=== PATIENT | male | born 1975 | race Caucasian/White ===

== ENCOUNTER 2023-09-22 14:06 | Emergency (ER) | payer BC, SELFPAY ==
[2023-09-22 14:14] VITALS: BP 146/90; PULSE 85; RESP 20; TEMP 36.6; O2SAT 98; BMI 21.9
[2023-09-22] MEDS: LIDOCAINE HCL 1%-EPINEPHRINE 1:100,000 20 ML MDV INJ (14:29)
--- NOTE | 2023-09-22 14:29 | ED.WOUNDLAC1 ---
HPI - Wound/Laceration General Chief Complaint: Wound/Laceration Stated Complaint: MIDDLE LEFT FINGER LACERATION Time Seen by Provider: 09/22/23 14:29 Source: patient Mode of arrival: walk-in Limitations: no limitations History of Present Illness HPI narrative: patient's here with a laceration over the dorsal aspect of his left middle finger sustained at home just prior to arrival. He is getting the use of woodworking equipment and before turning in on he cut his finger at the PIP joint. He has no other injuries. He is able to move the finger. His last tetanus shot was definitely less than ten years ago. He has no other complaints. He denies any loss of feeling distally. Bleeding has been controlled. He is not on any anticoagulants. Related Data Home Medications Medication Instructions Recorded Confirmed buprenorphine 8 mg-naloxone 2 mg film sublingual 09/22/23 sublingual film dextroamphetamine-amphetamine ER 15 mg PO DAILY 09/22/23 09/22/23 15 mg 24hr capsule,extend release levothyroxine 125 mcg tablet 125 mcg PO DAILY 09/22/23 09/22/23 Allergies Allergy/AdvReac Type Severity Reaction Status Date / Time No Known Drug Allergies Allergy Verified 09/22/23 14:12 Exam Narrative Exam Narrative: awake alert pleasant vital signs are stable. He has a 2 cm laceration with an island of nonviable tissue between the wound edges directly running vertically over the dorsal surface of the PIP joint. There is no arterial bleeding. Constitutional Vital Signs, click to edit/add: Last Vital Signs Temp 97.9 F 09/22/23 14:14 Pulse 85 09/22/23 14:14 Resp 20 09/22/23 14:14 BP 146/90 H 09/22/23 14:14 Pulse Ox 98 09/22/23 14:14 Course Vital Signs Vital signs: Vital Signs Temperature 97.9 F 09/22/23 14:14 Pulse Rate 85 09/22/23 14:14 Respiratory Rate 20 09/22/23 14:14 Blood Pressure 146/90 H 09/22/23 14:14 Pulse Oximetry 98 09/22/23 14:14 Temperature 97.9 F 09/22/23 14:14 Pulse Rate 85 09/22/23 14:14 Respiratory Rate 20 09/22/23 14:14 Blood Pressure 146/90 H 09/22/23 14:14 Pulse Oximetry 98 09/22/23 14:14 MDM - Wound/Laceration MDM Narrative Medical decision making narrative: seizure note. After lidocaine one percent anesthesia with epinephrine and a Jacquie drain was obtained approximately two render a bloodless field. There was a small island of tissue in the center of the wound that was devitalized and was sharply incised away. This facilitated closure using five 5-0 nylon simple interrupted sutures. Wound approximation was excellent. There is no tendon or vascular injury. Wound sheet was discussed with him by myself. He has stitches out ten days and will keep a volar splint on to facilitate wound healing Discharge Plan Discharge Chief Complaint: Wound/Laceration Clinical Impression: Laceration Patient Disposition: Home, Self-Care Time of Disposition Decision: 14:49 Prescriptions / Home Meds: No Action buprenorphine-naloxone 8-2 mg film sublingual Rx Instructions: 1/2 film daily three times weekly levothyroxine 125 mcg tablet 125 mcg PO DAILY dextroamphetamine-amphetamine 15 mg capsule,extended release 24hr 15 mg PO DAILY Additional Instructions: keep clean and dry, wear splint, stitches out in ten days, apply topical bacitracin or Vaseline Stand Alone Forms: Portal Instructions Referrals: Shaikh Adam MD [Primary Care Provider] - 1 week
== END 2023-09-22 15:23 | disposition home or self-care (01) ==
PROVIDERS: Emergency Provider Emergency Medicine Emergency Medical Services; PCP Internal Medicine
DX: S61.213A Laceration without foreign body of left middle finger without damage to nail, initial encounter (principal); W27.0XXA Contact with workbench tool, initial encounter; Z79.899 Other long term (current) drug therapy; Z79.890 Hormone replacement therapy
CPT/HCPCS: 12001; 99282

== ENCOUNTER 2024-02-12 10:54 | Outpatient (OUT) | payer BC, SELFPAY ==
[2024-02-12 11:33] LABS: Basophils Absolute Auto 0.1 10^3/uL (0.0-0.1); Basophils Percent Auto 0.9 % (0.2-2.0); Eosinophils Absolute Auto 0.1 10^3/uL (0.0-0.7); Eosinophils Percent Auto 1.9 % (0.9-7.0); Hematocrit 41.2 % (42.0-54.0); Hemoglobin 13.6 g/dL (14.0-18.0); Immature Granulocytes Abs Auto 0.03 10^3/uL (0.00-0.03); Immature Granulocytes Pct Auto 0.5 % (0.0-0.5); Lymphocytes Absolute Auto 0.9 10^3/uL (1.2-3.8); Lymphocytes Percent Auto 14.5 % (20.5-60.0); Mean Corpuscular Hemoglobin 30.4 pg (25.9-34.0); Mean Platelet Volume 9.4 fL (9.5-13.5); Monocytes Absolute Auto 0.5 10^3/uL (0.3-0.8); Neutrophils Absolute Auto 4.8 10^3/uL (1.4-6.5); Neutrophils Percent Auto 74.2 % (43.0-75.0); Platelet Count 274 10^3/uL (150-450); Red Blood Count 4.48 10^6/uL (4.70-6.10); White Blood Count 6.4 10^3/uL (4.0-11.0)
[2024-02-12 12:36] LABS: Alanine Aminotransferase 33 U/L (16-63); Albumin Level 3.7 g/dL (3.4-5.0); Alkaline Phosphatase 92 U/L (46-116); Anion Gap 13.7; Aspartate Amino Transferase 23 U/L (15-37); BUN Creatinine Ratio 14.4; Bilirubin Total 0.3 mg/dL (0.2-1.0); Calcium 9.3 mg/dL (8.5-10.1); Chloride 102 mmol/L (98-107); Estimated GFR (African America >60 (>=60); Estimated GFR (Non-African Ame >60 (>=60); Globulin 3.8 g/dL; Glucose 98 mg/dL (74-106); Potassium 3.7 mmol/L (3.5-5.1); Sodium 141 mmol/L (136-145); TSH W/ REFLEX FT4 12.254 uIU/mL (0.358-3.740); Total Protein 7.5 g/dL (6.4-8.2)
[2024-02-12 14:26] LABS: Free T4 0.71 ng/dL (0.76-1.46)
== END 2024-02-12 10:55 | disposition home or self-care (01) ==
LOC: LAB 10:54
PROVIDERS: PCP Internal Medicine; Visit Provider Internal Medicine
DX: I07.1 Rheumatic tricuspid insufficiency (principal); E03.9 Hypothyroidism, unspecified; F90.1 Attention-deficit hyperactivity disorder, predominantly hyperactive type
CPT/HCPCS: 36415; 80053; 84439; 84443; 85025

== ENCOUNTER 2024-02-24 09:08 | Outpatient (OUT) | payer BC, SELFPAY ==
--- NOTE | 2024-02-24 09:10 | CT_ITS ---
[address] [address] Patient Name: ANDREW MAHONEY MRN: [facility]:[id number] date: 1975 Sex: M Assigned Patient Location: CT Current Patient Location: Accession/Order Number: [id number] Exam Date: 02/24/2024 10:15 Report Date: 02/26/2024 06:50 At the request of: SHAIKH ANGELICA Procedure: CT abdomen pelvis w con EXAMINATION: CT abdomen pelvis w con HISTORY: Inguinal hernia ; chronic left groin painful lump increasing in severity COMPARISON: CT abdomen pelvis 09/16/2021 TECHNIQUE: Axial, Coronal, and Sagittal images were obtained without and/or with IV contrast as indicated by examination type. Dose reduction techniques were achieved by using automated exposure control and/or adjustment of mA and/or kV according to patient size and/or use of iterative reconstruction technique. FINDINGS: LUNG BASES: No visible pulmonary or pleural disease. LIVER: Decreased density adjacent the falciform ligament suspected to represent fatty infiltration. BILIARY: No dilatation or calcification. PANCREAS: No lesion, fluid collection, or abnormal duct dilatation. SPLEEN: No enlargement or focal lesion. ADRENALS: No mass or enlargement. KIDNEYS: No mass, obstruction, or calcification. BOWEL/MESENTERY: Focal dilated segment of small bowel within anterior left abdomen; transient small bowel intussusception versus prior resection and anastomosis. Resection and anastomosis also suspected near the sigmoid-rectal junction. No visible mass, obstruction, or bowel wall thickening. Normal appendix. AORTA/VASCULAR: No aneurysm or dissection. RETROPERITONEUM: No mass or adenopathy. LYMPH NODES: No adenopathy. URINARY BLADDER: No visible focal wall thickening, lesion, or calculus. PELVIC ORGANS: No visible mass. Pelvic organs appropriate for patient age. ABDOMINAL WALL: Short segment of small bowel extending into left inguinal canal. Prior right inguinal hernia repair. BONES: No bony lesion or fracture. OTHER: Negative. CT/CT abdomen pelvis w con IMPRESSION: 1. Small left inguinal hernia containing a short segment of small bowel; no obstruction or inflammatory changes. Electronically authenticated by: KELLY ERWIN Date: 02/26/2024 06:50
--- OUTSIDE RECORDS SUMMARY | 2024-02-24 09:11 | XMS_ITS | CCD ---
Author Organization [facility] Care Team Providers Care Vamp Stitcher Name Role Phone Unavailable Primary Care Provider Unavailmeg e Marino RN, Meghan Shelton Unavailable [phone] Oscar Gonzalez MD Unavailable Temi Dean PA-C Unavailable [phone] Marino STATON, Meghan Shelton Unavailable Oscar Gonzalez MD Unavailable Temi Dean PA-C Unavailable Meghan Pichardo RN Unavailable [phone] Oscar Gonzalez MD Unavailable Shaikh Adam MD Primary Care Provider [phone] REQUEST, NONE LISTED Primary Care Unavaila ble PAY, DR CARROLL Admitting Unavailable PAY, DR CARROLL Attending Unavailable PAY, DR CARROLL Consulting Unavailable Kelly Hernandez Consulting Unavailable FAWWAD, BUCHANAN H Admitting Unavailable FAWWAJoby, BUCHANAN H Attending Unavailable FAWWAD, BUCHANAN H Primary Care Unavailable FAWWAD, BUCHANAN H Consulting Unavailable FAWWAD, BUCHANAN H Admitting Unavailable FAWWAD, BCUHANAN H Attending Unavailable KINGWWAJoby, BUCHANAN H Primary Care Unavailable REQUEST, NONE LISTED Primary Care Unavaila ble TRE GARCIA Admitting Unavailable TRE GARCIA Attending Unavailable TRE GARCIA Consulting Unavailable KANU CARNEY Consulting Unavailable Marino STATON, Meghan Shelton Unavailable Oscar Gonzalez MD Unavailable Temi Dean PA-C Unavailable [phone] Kia HEARD [facility] Provider BAN, ANA Referring Unavailable [facility] Care Unavailable BAN, ANA Referring Unavailable CAMELIA THOMASON Attending Unavailable [facility] Unavailable PROVIDER, UNKNOWN Referring Unavailable [facility] Care Unavailable TEMI DEAN Referring [facility]available [facility]I DEAN Referring [facility]available [facility] Care Unavailable BAN, ANA Admitting Unavailable BANLUCIEEN Attending Unavailable [facility] Care Unavailable [facility] Care Unavailable BAN, ANA Admitting Unavailable BAN ANA Attending Unavailable KARAMLOU, OSCAR Referring Unavailable ANOOP, TYLOR Referring Unavailable ANOOPSAJU Attending Unavailable [facility] Unavailable TEMI DEAN Referring Unavailable [facility] Care Unavailable KAYLIN ARAGON Attending Unavailable [facility] Unavailable BAN ANA Attending Unavailable [facility] Care Unavailable KARAMLOU, OSCAR Referring Unavailable [facility] Unavailable TEMI DEAN Attending Unavailable KARAMLOU, OSCAR Referring Unavailable [facility] Care Unavailable KARAMLOU, OSCAR Referring Unavailable [facility] Care Unavailable BAN ANA Attending Unavailable BAN, ANA Referring Unavailable KARAMLOU, OSCAR Referring Unavailable KARAMLOU, OSCAR Referring Unavailable KARAMLOU, OSCAR Attending Unavailable KARAMLOU, OSCAR Referring Unavailable [facility] Care Unavailable BAN, ANA Referring Unavailable KARAMLOU, OSCAR Referring [facility]available [facility] Unavailable BAN, ANA Referring Unavailable [facility] Referring Unavailable [facility] Primary Care Unavailable TEMI DEAN Attending Unavailable KARAMLOU, OSCAR Referring Unavailable [facility] Care Unavailable KARAMLOU, OSCAR Attending Unavailable KARAMLOU, OSCAR Referring Unavailable [facility] Primary Care Unavailable ANA ENRIQUEZ Referring Unavailable [facility] Primary Care Unavailable ANA ENRIQUEZ Referring Unavailable [facility] Primary Care Unavailable TEMI DEAN Referring Unavailable OSCAR GONZALEZ Referring Unavailable Marino STATON, Meghan Shelton Unavailable [phone] SHAIKH ADAM Attending Unavailable Medications Current Medications Medication Drug Class(es) Dates Sig (Normalized) Sig (Original) 0.4 ml enoxaparin sodium 100 mg/ml prefilled syringe (16 sources) Low Molecular Weight Heparin Start: 11-07-2022 End: 12-03-2022 inject 0.4 mL by subcutaneous injection once daily enoxaparin (LOVENOX) 40 mg/0.4 mL Inject 0.4 mL subcutaneously once daily for 21 days. 8.4 mL 0 11/07/2022 12/03/2022 Active Start: 02-25-2022 End: 03-18-2022 inject 40 mg by subcutaneous injection every twenty-four hours enoxaparin (LOVENOX) 40 mg/0.4 mL Inject 0.4 mL subcutaneously q 24 HR for 21 days. 8.4 mL 0 02/25/2022 03/18/2022 Discontinued Comment on above: Inject 0.4 mL subcut aneously q 24 HR for 21 days. Inject 0.4 mL subcut aneously once daily for 21 days. oxyCODONE hydrochloride 5 mg oral tablet (3 sources) Opioid Agonist Start: 02-23-20 End: 03-01-20 take 1 tablet by mouth every six hours as needed oxyCODONE IR (ROXICODONE) 5 mg immediate release tablet Indications: Post-op pain Take 1 tablet by mouth every 6 hours as needed for up to 7 days. 20 tablet 0 02/22/2023 03/01/2023 Active Comment on above: Take 1 tablet by kevin every 6 hours as needed for up to 7 days. pantoprazole 40 mg delayed release oral tablet (1 source) Proton Pump Inhibitor Start: 02-26-20 End: 02-25-20 take 1 tablet by mouth once daily, then take 6 tablets by mouth in the morning pantoprazole DR (PROTONIX) 40 mg tablet Take 1 tablet by mouth DAILY (6 AM). 30 tablet 0 02/25/2022 02/24/2022 Discontinued Start: 02-25-2022 End: 02-24-2022 take 1 tablet by mouth once daily, then take 6 tablets by mouth in the morning pantoprazole DR (PROTONIX) 40 mg tablet Take 1 tablet by mouth DAILY (6 AM). 30 tablet 0 02/25/2022 02/24/2022 Discontinued Comment on above: Take [address] [facility] DAILY (6 AM). Completed/Discontinued Medications Medication Drug Class(es) Dates Sig (Normalized) Sig (Original) acetaminophen 500 mg oral tablet (20 sources) Start: 02-24-2022 take 2 tablets by mouth every six hours acetaminophen (TYLENOL) 500 mg tablet Take 2 tablets by mouth every 6 hours. 0 02/24/2022 Active Comment on above: Take 2 tablets by mo [facility] every 6 hours. atorvastatin 10 mg oral tablet (20 sources) HMG-CoA Reductase Inhibitor Start: 02-08-2022 take 1 tablet by mouth once daily atorvastatin (LIPITOR) 10 mg tablet Take 10 mg by mouth once daily. 0 02/08/2022 Active Comment on above: Take 10 mg by mouth once daily. bacillus coagulans [id number] unt / inulin 250 mg oral capsule (20 sources) Start: 02-24-2022 End: 08-16-2022 take 1 capsule by mouth once daily PROBIOTIC FORMULA, INULIN, 1 billion-250 cell-mg cap Take 1 capsule by mouth once daily. 0 02/24/2022 08/16/2022 Discontinued (Discontinued by Patient) Comment on above: Take 1 capsule by mo [facility] once daily. buprenorphine 8 mg / naloxone 2 mg sublingual film (14 sources) Partial Opioid Agonist, Opioid Antagonist Start: 01-16-2023 buprenorphine-nalox one (SUBOXONE) 8-2 mg film DISSOLVE 2 (TWO) films UNDER THE TONGUE DAILY 0 01/16/2023 Active Start: 11-23-2021 End: 02-04-2022 buprenorphine-naloxone (SUBO XONE) 8-[address] 2 (TWO) films UNDER THE TONGUE DAILY 0 11/23/2021 02/04/2022 Discontinued Comment on above: place 2 (TWO) films UNDER THE TONGUE DAILY DISSOLVE 2 (TWO) bubba ms UNDER THE TONGUE DAILY 24 hr buPROPion hydrochloride 300 mg extended release oral tablet (20 sources) Aminoketone Start: End: 3 take 1 tablet by mouth once daily buPROPion XL (WELLBUTRIN XL) 300 mg 24 hr tablet Take 1 tablet by mouth once daily. Take wellbutrin 150 mg tablet daily for 5 days before starting 300 mg dose daily 30 tablet 2 09/05/2022 02/16/2023 Discontinued Start: 04-22-2022 End: 08-16-2022 take 1 tablet by mouth once daily buPROPion XL (WELLBUTRIN XL) 150 mg 24 hr tablet Take 1 tablet by mouth once daily for 5 days. 5 tablet 0 04/22/2022 08/16/2022 Discontinued (Course of therapy completed) Comment on above: Take 1 tablet by kevin th once daily for 5 days. Take 1 tablet by kevin th once daily. Take wellbutrin 150 mg tablet daily for 5 days before starting 300 mg dose daily TAKE 1 TABLET BY KEVIN TH DAILY (TAKE 150mg DAILY FOR 5 DAYS then INCREASE to 300 mg DAILY) capecitabine 500 mg oral tablet (20 sources) Nucleoside Metabolic Inhibitor Start: 08-28-2022 End: 11-12-2022 capecitabine (XELODA) 500 mg tablet Take 3 tablets (1,500 mg) by mouth twice daily for 14 days. Followed by 7 days off start with the Oxaliplatin 84 tablet 4 08/28/2022 11/12/2022 Discontinued Start: 08-26-2022 End: 08-26-2022 capecitabine (XELODA) 150 mg tablet Indications: Rectal cancer (HCC) Take 5 tablets (750 mg) by mouth twice daily for 14 days with 1 other capecitabine prescription for 1,750 mg total. Oral chemotherapy agent; wear double gloves when handling. 140 tablet 0 08/26/2022 08/26/2022 Discontinued Start: 08-26-2022 End: 08-26-2022 capecitabine (XELODA) 500 mg tablet Indications: Rectal cancer (HCC) Take 2 tablets (1,000 mg) by mouth twice daily for 14 days with 1 other capecitabine prescription for 1,750 mg total. Oral chemotherapy agent; wear double gloves when handling. 56 tablet 0 08/26/2022 08/26/2022 Discontinued Start: 07-15-2022 End: 07-15-2022 capecitabine (XELODA) 150 mg tablet Indications: Rectal cancer (HCC) Take 5 tablets (750 mg) by mouth twice daily for 14 days with 1 other capecitabine prescription for 1,750 mg total. Oral chemotherapy agent; wear double gloves when handling. 140 tablet 0 07/15/2022 07/15/2022 Discontinued Start: 07-15-2022 End: 07-15-2022 capecitabine (XELODA) 500 mg tablet Indications: Rectal cancer (HCC) Take 2 tablets (1,000 mg) by mouth twice daily for 14 days with 1 other capecitabine prescription for 1,750 mg total. Oral chemotherapy agent; wear double gloves when handling. 56 tablet 0 07/15/2022 07/15/2022 Discontinued Start: 05-24-2022 End: 08-26-2022 capecitabine (XELODA) 500 mg tablet Take 3 tablets (1,500 mg) by mouth twice daily for 14 days. Followed by 7 days off start with the Oxaliplatin 84 tablet 4 08/26/2022 08/26/2022 Discontinued Start: 02-22-2022 End: 05-24-2022 take 2 tablets by mouth twice daily capecitabine (XELODA) 500 mg tablet Take 2 tablets (1,000 mg) by mouth twice daily. Take along with 300 mg for a total dose of 1300 mg PO BID M-F during radiation 120 tablet 0 02/24/2022 05/24/2022 Discontinued Start: 02-17-2022 End: 05-24-2022 take 2 tablets by mouth twice daily capecitabine (XELODA) 150 mg tablet Take 2 tablets (300 mg) by mouth twice daily. Take along with 1000 mg for a total dose of 1300 mg PO BID M-F During Radiation only 120 tablet 0 02/24/2022 05/24/2022 Discontinued Start: 02-17-2022 End: 02-18-2022 take 2 tablets by mouth twice daily capecitabine (XELODA) 500 mg tablet Take 2 tablets (1,000 mg) by mouth twice daily. Take along with 300 mg for a total dose of 1300 mg PO BID M-F during radiation 120 tablet 0 02/17/2022 02/18/2022 Discontinued Comment on above: Take 2 tablets (300 mg) by mouth twice daily. Take along with 1000 mg for a total dose of 1300 mg PO BID M-F During Radiation only Take 2 tablets (1,00 0 mg) by mouth twice daily. Take along with 300 mg for a total dose of 1300 mg PO BID M-F during radiation Take 3 tablets (1,50 0 mg) by mouth twice daily for 14 days. and 7 days off. (21 day cycle) Start day you receive oxaliplatin every cycle Oxaliplatin Take 3 tablets (1,50 0 mg) by mouth twice daily for 14 days. 1500 mg PO BID for 14 days and 7 dauys off start with the Oxaliplatin Take 3 tablets (1,50 0 mg) by mouth twice daily for 14 days. Followed by 7 days off start with the Oxaliplatin Take 5 tablets (750 mg) by mouth twice daily for 14 days with 1 other capecitabine prescription for 1,750 mg total. Oral chemotherapy agent; wear double gloves when handling. Take 2 tablets (1,00 0 mg) by mouth twice daily for 14 days with 1 other capecitabine prescription for 1,750 mg total. Oral chemotherapy agent; wear double gloves when handling. ciprofloxacin 500 mg oral tablet (5 sources) Quinolone Antimicrobial Start: 021 End: take 1 tablet by mouth every twelve hours ciprofloxacin HCl (CIPRO) 500 mg tablet Take 500 mg by mouth q 12 HR. 0 09/16/2021 02/04/2022 Discontinued Comment on above: Take 500 mg by mouth q 12 HR. cyclobenzaprine hydrochloride 5 mg oral tablet (5 sources) Muscle Relaxant Start: 023 take 1 tablet by mouth three times daily cyclobenzaprine (FLEXERIL) 5 mg tablet Take 1 tablet by mouth three times daily. 20 tablet 0 02/22/2023 Active Comment on above: Take 1 tablet by kevin three times daily. enteric contrast (will be provided with radiology test) (20 sources) Start: enteric contrast (will be provided with radiology test) Indications: Malignant neoplasm of rectum (HCC) For CT ABD/PEL W IVCON Routine order Administer, As Directed One Time Only, via Oral, Rectal, both Oral and Rectal, Enteric Tube, Stoma or Indwelling Catheter, Enteric Contrast as designated per enteric contrast guidelines 1 Each 0 10/04/2022 Active Start: 08-26-2022 End: 08-27-2022 enteric contrast (will be pr ovided with radiology test) MRI RECTUM WO/W. Administer, As Directed One Time Only, via Oral, Rectal, both Oral and Rectal, Enteric Tube, Stoma or Indwelling Catheter, Enteric Contrast as designated per enteric contrast guidelines 1 Each 0 08/26/2022 08/27/2022 Active Start: 04-12-2022 End: 04-13-2022 enteric contrast (will be pr ovided with radiology test) MRI RECTUM WO/W. Administer, As Directed One Time Only, via Oral, Rectal, both Oral and Rectal, Enteric Tube, Stoma or Indwelling Catheter, Enteric Contrast as designated per enteric contrast guidelines 1 Each 0 04/12/2022 04/13/2022 Start: 01-18-2022 End: 02-04-2022 enteric contrast (will be pr ovided with radiology test) MRI RECTUM WO/W. Administer, As Directed One Time Only, via Oral, Rectal, both Oral and Rectal, Enteric Tube, Stoma or Indwelling Catheter, Enteric Contrast as designated per enteric contrast guidelines 1 Each 0 01/18/2022 02/04/2022 Discontinued Start: 01-18-[address] (will be provided with radiology test) MRI RECTUM WO/W. Administer, As Directed One Time Only, via Oral, Rectal, both Oral and Rectal, Enteric Tube, Stoma or Indwelling Catheter, Enteric Contrast as designated per enteric contrast guidelines 1 Each 0 01/18/2022 Active Start: 12-29-2021 End: 02-04-2022 enteric contrast (will be pr ovided with radiology test) For CT CHESTABD/PEL W IVCON Routine order Administer, As Directed One Time Only, via Oral, Rectal, both Oral and Rectal, Enteric Tube, Stoma or Indwelling Catheter, Enteric Contrast as designated per enteric contrast guidelines 1 Each 0 12/29/2021 02/04/2022 Discontinued Start: 12-29-[address] (will be provided with radiology test) For CT CHESTABD/PEL W IVCON Routine order Administer, As Directed One Time Only, via Oral, Rectal, both Oral and Rectal, Enteric Tube, Stoma or Indwelling Catheter, Enteric Contrast as designated per enteric contrast guidelines 1 Each 0 12/29/2021 Active Comment on above: For CT CHESTABD/PEL W IVCON Routine order Administer, As Directed One Time Only, via Oral, Rectal, both Oral and Rectal, Enteric Tube, Stoma or Indwelling Catheter, Enteric Contrast as designated per enteric contrast guidelines MRI RECTUM WO/W. Adm inister, As Directed One Time Only, via Oral, Rectal, both Oral and Rectal, Enteric Tube, Stoma or Indwelling Catheter, Enteric Contrast as designated per enteric contrast guidelines For CT ABD/PEL W IVC ON Routine order Administer, As Directed One Time Only, via Oral, Rectal, both Oral and Rectal, Enteric Tube, Stoma or Indwelling Catheter, Enteric Contrast as designated per enteric contrast guidelines Food Supplement, Lactose-Free (PROMOTE, OSMOLITE, TWO CADEN, ENSURE PLUS, ENLIVE) liqd (18 sources) Start: 2 End: 3 take 237 mL by mouth three times daily at mealtime Food Supplement, Lactose-Free (PROMOTE, OSMOLITE, TWO CADEN, ENSURE PLUS, ENLIVE) liqd Take 237 mL by mouth three times daily with meals. [id number] mL 0 08/05/2022 11/12/2022 Discontinued Start: 08-05-2022 take 237 mL by mouth three times daily at mealtime Food Supplement, Lactose-Free (PROMOTE, OSMOLITE, TWO CADEN, ENSURE PLUS, ENLIVE) liqd Take 237 mL by mouth three times daily with meals. [id number] mL 0 08/05/2022 Active Start: 08-05-2022 End: 09-04-2022 take 237 mL by mouth three times daily at mealtime Food Supplement, Lactose-Free (PROMOTE, OSMOLITE, TWO CADEN, ENSURE PLUS, ENLIVE) liqd Take 237 mL by mouth three times daily with meals. [id number] mL 0 08/05/2022 09/04/2022 Active Comment on above: Take 237 mL by mouth three times daily with meals. gabapentin 300 mg oral capsule (20 sources) Anti-epileptic Agent Start: 2 End: 2 take 1 capsule by mouth every eight hours gabapentin (NEURONTIN) 300 mg capsule Take 1 capsule by mouth every 8 hours for 14 days. 42 capsule 0 02/24/2022 08/16/2022 Discontinued (Discontinued by Patient) Comment on above: Take [address] [facility] every 8 hours for 14 days. ibuprofen 400 mg oral tablet (20 sources) Nonsteroidal Anti-inflammatory Drug Start: 3 take 1 tablet by mouth every eight hours ibuprofen (MOTRIN) 400 mg tablet Take 1 tablet by mouth every 8 hours. 20 tablet 0 02/23/2023 Active Start: 11-12-2022 End: 12-12-2022 take 2 tablets by mouth every eight hours as needed ibuprofen (MOTRIN) 200 mg tablet Take 2 tablets by mouth every 8 hours as needed for pain. 90 tablet 1 11/12/2022 12/12/2022 Active take 1 tablet by kevin th every six hours as needed ibuprofen (MOTRIN) 200 mg tablet Take 200 mg by mouth every 6 hours as needed for pain. 0 Active End: 08-16-2022 Ibuprofen 200 mg cap Take by mouth every 6 hours as needed. 0 08/16/2022 Discontinued (Discontinued by Patient) Comment on above: Take by mouth every 6 hours as needed. Take 2 tablets by mo uth every 8 hours as needed for pain. Take 200 mg by mouth every 6 hours as needed for pain. Take 1 tablet by kevin th every 8 hours. iv contrast (will be provided with radiology test) (20 sources) Start: 10-04-2022 iv contrast (will be provided with radiology test) Indications: Malignant neoplasm of rectum (HCC) CT ABD/PEL -Inject, intravenously, once for 1 dose.No IV access, insert saline lock prior to the beginning of sedation, infusion, injection of imaging exam. Discontinue saline lock post exam. If Pt. has a central line or IVAD, may access for administration according to line specific nursing protocol. Once exam is complete flush line and de-access according to line specific nursing protocol in the CT contrast administration guidelines link. 1 Each 0 10/04/2022 Active Start: 08-26-2022 End: 08-27-2022 iv contrast (will be provide d with radiology test) MRI Rectum Inject, intravenously, once for 1 dose. No IV access, insert saline lock prior to the beginning of sedation, infusion, injection of imaging exam. Discontinue saline lock post exam. If Pt has a central line or IVAD, may access for administration according to line specific nursing protocol. Once exam is complete flush line and de-access according to line specific nursing protocol in the MR contrast administration guidelines link. 1 Each 0 08/26/2022 08/27/2022 Active Start: 08-26-2022 End: 08-27-2022 iv contrast (will be provide d with radiology test) CT Chest W -Inject, intravenously, once for 1 dose.No IV access, insert saline lock prior to the beginning of sedation, infusion, injection of imaging exam. Discontinue saline lock post exam. If Pt. has a central line or IVAD, may access for administration according to line specific nursing protocol. Once exam is complete flush line and de-access according to line specific nursing protocol in the CT contrast administration guidelines link. 1 Each 0 08/26/2022 08/27/2022 Active Start: 04-12-2022 End: 04-13-2022 iv contrast (will be provide d with radiology test) MRI Rectum Inject, intravenously, once for 1 dose. No IV access, insert saline lock prior to the beginning of sedation, infusion, injection of imaging exam. Discontinue saline lock post exam. If Pt has a central line or IVAD, may access for administration according to line specific nursing protocol. Once exam is complete flush line and de-access according to line specific nursing protocol in the MR contrast administration guidelines link. 1 Each 0 04/12/2022 04/13/2022 Start: 01-18-2022 End: 02-04-2022 iv contrast (will be provide d with radiology test) MRI Rectum Inject, intravenously, once for 1 dose. No IV access, insert saline lock prior to the beginning of sedation, infusion, injection of imaging exam. Discontinue saline lock post exam. If Pt has a central line or IVAD, may access for administration according to line specific nursing protocol. Once exam is complete flush line and de-access according to line specific nursing protocol in the MR contrast administration guidelines link. 1 Each 0 01/18/2022 02/04/2022 Discontinued (Discontinued by Patient) Start: 01-18-2022 iv contrast (w ill be provided with radiology test) MRI Rectum Inject, intravenously, once for 1 dose. No IV access, insert saline lock prior to the beginning of sedation, infusion, injection of imaging exam. Discontinue saline lock post exam. If Pt has a central line or IVAD, may access for administration according to line specific nursing protocol. Once exam is complete flush line and de-access according to line specific nursing protocol in the MR contrast administration guidelines link. 1 Each 0 01/18/2022 Active Start: 12-29-2021 End: 02-04-2022 iv contrast (will be provide d with radiology test) CT Chest ABD/PEL-Inject, intravenously, once for 1 dose.No IV access, insert saline lock prior to the beginning of sedation, infusion, injection of imaging exam. Discontinue saline lock post exam. If Pt. has a central line or IVAD, may access for administration according to line specific nursing protocol. Once exam is complete flush line and de-access according to line specific nursing protocol in the CT contrast administration guidelines link. 1 Each 0 12/29/2021 02/04/2022 Discontinued Start: 12-29-2021 iv contrast (w ill be provided with radiology test) CT Chest ABD/PEL-Inject, intravenously, once for 1 dose.No IV access, insert saline lock prior to the beginning of sedation, infusion, injection of imaging exam. Discontinue saline lock post exam. If Pt. has a central line or IVAD, may access for administration according to line specific nursing protocol. Once exam is complete flush line and de-access according to line specific nursing protocol in the CT contrast administration guidelines link. 1 Each 0 12/29/2021 Active Comment on above: CT Chest ABD/PEL-Inj ect, intravenously, once for 1 dose.No IV access, insert saline lock prior to the beginning of sedation, infusion, injection of imaging exam. Discontinue saline lock post exam. If Pt. has a central line or IVAD, may access for administration according to line specific nursing protocol. Once exam is complete flush line and de-access according to line specific nursing protocol in the CT contrast administration guidelines link. MRI Rectum Inject, i ntravenously, once for 1 dose. No IV access, insert saline lock prior to the beginning of sedation, infusion, injection of imaging exam. Discontinue saline lock post exam. If Pt has a central line or IVAD, may access for administration according to line specific nursing protocol. Once exam is complete flush line and de-access according to line specific nursing protocol in the MR contrast administration guidelines link. CT Chest W -Inject, intravenously, once for 1 dose.No IV access, insert saline lock prior to the beginning of sedation, infusion, injection of imaging exam. Discontinue saline lock post exam. If Pt. has a central line or IVAD, may access for administration according to line specific nursing protocol. Once exam is complete flush line and de-access according to line specific nursing protocol in the CT contrast administration guidelines link. CT ABD/PEL -Inject, intravenously, once for 1 dose.No IV access, insert saline lock prior to the beginning of sedation, infusion, injection of imaging exam. Discontinue saline lock post exam. If Pt. has a central line or IVAD, may access for administration according to line specific nursing protocol. Once exam is complete flush line and de-access according to line specific nursing protocol in the CT contrast administration guidelines link. lactobacillus rhamnosus gg [id number] unt oral capsule (20 sources) Start: End: take 1 capsule by mouth once daily lactobacillus rhamnosus (CULTURELLE) 10 billion cell capsule Take 1 capsule by mouth once daily. 30 capsule 0 02/22/2023 Active Comment on above: Take [address] [facility] once daily. levothyroxine sodium 0.125 mg oral tablet (20 sources) l-Thyroxine Start: take 1 tablet by mouth once daily levothyroxine (SYNTHROID) 125 mcg tablet Take 125 mcg by mouth once daily. 0 11/01/2021 Active Comment on above: Take 125 mcg by [facility] once daily. loperamide hydrochloride 2 mg oral capsule (10 sources) Opioid Agonist Start: take 1 capsule by mouth twice daily before mealtime loperamide (IMODIUM) 2 mg cap(s) Indications: High output ileostomy (HCC) Take 1 capsule by mouth twice daily before meals (0600/1600). 60 capsule 2 12/06/2022 Active Comment on above: Take [address] [facility] twice daily before meals (0600/1600). loratadine 10 mg oral tablet (20 sources) Start: take 1 tablet by mouth once daily loratadine (CLARITIN) 10 mg tablet Take 10 mg by mouth once daily. 0 02/08/2022 Active Comment on above: Take 10 mg by mouth once daily. metroNIDAZOLE 500 mg oral tablet (17 sources) Nitroimidazole Antimicrobial Start: End: take 1 tablet by mouth three times daily metroNIDAZOLE (FLAGYL) 500 mg tablet Take 1 tablet by mouth three times daily. Take 1 tablet at 6pm, 7pm, and 11pm, the evening prior to surgery. 3 tablet 0 01/18/2022 02/17/2022 Discontinued Comment on above: TAKE 1 TABLET BY KEVIN TH THREE TIMES DAILY (no alcohol,no intercourse FOR 7 DAYS) Take 1 tablet by kevin th three times daily. Take 1 tablet at 6pm, 7pm, and 11pm, the evening prior to surgery. naproxen sodium 220 mg oral capsule (4 sources) Nonsteroidal Anti-inflammatory Drug naproxen sodium (ALEVE) 220 mg cap Take by mouth as needed. 0 Active Comment on above: Take by mouth as nee ded. neomycin sulfate 500 mg oral tablet (15 sources) Aminoglycoside Antibacterial Start: End: neomycin 500 mg tablet Take 2 tablets by mouth as directed. Take 2 tablet at 6pm, 7pm, and 11pm the evening prior to surgery. 6 tablet 0 01/18/2022 02/24/2022 Discontinued Comment on above: Take 2 tablets by mo [facility] as directed. Take 2 tablet at 6pm, 7pm, and 11pm the evening prior to surgery. 24 hr nicotine 0.875 mg/hr transdermal system (20 sources) Cholinergic Nicotinic Agonist Start: apply 1 dose transdermal route every twenty-four hours nicotine (NICODERM) 21 mg/24 hr Apply 1 Patch as directed every 24 hours. 30 Patch 1 07/15/2022 Active Start: 02-25-2022 End: 07-24-2022 apply 1 dose transdermal route once daily nicotine (NICODERM) 21 mg/24 hr Apply 1 Patch as directed once daily. 30 Patch 0 06/24/2022 07/15/2022 Discontinued (Course of therapy completed) Comment on above: Apply 1 Patch as dir ected once daily. Apply 1 Patch as dir ected every 24 hours. ondansetron 8 mg oral tablet (20 sources) Serotonin-3 Receptor Antagonist Start: take 1 tablet by mouth every eight hours as needed ondansetron (ZOFRAN) 8 mg tablet Take 1 tablet by mouth every 8 hours as needed for nausea/vomiting. 90 tablet 2 03/01/2022 Active Comment on above: Take 1 tablet by kevin every 8 hours as needed for nausea/vomiting. perflutren lipid microspheres 1.3 mL in NaCl (PF) 0.9% 10 mL injection (DEFINITY) (20 sources) Start: End: perflutren lipid microspheres 1.3 mL in NaCl (PF) 0.9% 10 mL injection (DEFINITY) prochlorperazine 10 mg oral tablet (20 sources) Phenothiazine Start: End: take 1 tablet by mouth every six hours as needed prochlorperazine (COMPAZINE) 10 mg tablet Take 1 tablet by mouth every 6 hours as needed. 100 tablet 2 07/15/2022 Active Comment on above: Take 1 tablet by kevin th every 6 hours as needed. QUEtiapine 50 mg oral tablet (5 sources) Atypical Antipsychotic Start: End: take 1 tablet by mouth once daily at bedtime QUEtiapine (SEROQUEL) 50 mg tablet Take 50 mg by mouth daily at bedtime. 0 11/01/2021 02/04/2022 Discontinued Comment on above: Take 50 mg by mouth daily at bedtime. 125 ml sodium chloride 9 mg/ml prefilled syringe (20 sources) Start: End: sodium chloride 0.9 % (flush) 10 mL (BD POSIFLUSH) traMADol hydrochloride 50 mg oral tablet (20 sources) Opioid Agonist Start: End: take 1 tablet by mouth every eight hours as needed for pain traMADol (ULTRAM) 50 mg tablet Indications: Acute post-operative pain Take 1 tablet by mouth every 8 hours as needed for pain for up to 7 days. 20 tablet 0 12/06/2022 12/13/2022 Active Start: 11-12-2022 End: 02-09-2023 take 1 tablet by mouth every six hours as needed for pain traMADol (ULTRAM) 50 mg tablet Indications: Encounter for follow-up surveillance of rectal cancer , Acute post-operative pain Take 1 tablet by mouth every 6 hours as needed for pain. 20 tablet 0 01/17/2023 02/09/2023 Discontinued (Course of therapy completed) Start: 02-24-2022 End: 08-16-2022 take 1 tablet by mouth every six hours as needed traMADol (ULTRAM) 50 mg tablet Indications: Post-op pain Take 1 tablet by mouth every 6 hours as needed. 25 tablet 0 02/24/2022 08/16/2022 Discontinued (Discontinued by Patient) Comment on above: Take 1 tablet by kevin th every 6 hours as needed. Take 1 tablet by kevin th every 6 hours as needed for pain for up to 20 doses. Take 1 tablet by kevin th every 8 hours as needed for pain for up to 7 days. Take 1 tablet by kevin th every 6 hours as needed for pain. 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] Onset: 01-17-2022 01-17-2022 Chronic Disorders of lipid metabolism (1 source) Hyperlipidemia, unspecified; Translations: [HYPERLIPIDEMIA UNSPECIFIED] Onset: 12-02-2021 Chronic Diverticulosis and diverticulitis (1 source) Diverticulitis of large intestine with perforation and abscess without bleeding; Translations: [DVTRCLI LG INT W/PERF ABSC NO BLEED] Onset: 08-31-2021 Chronic Heart valve disorders (20 sources) Rheumatic tricuspid insufficiency; Translations: [Diseases of tricuspid valve] Onset: 01-17-2022 01-17-2022 Chronic Nutritional deficiencies (20 sources) Deficiency of macronutrients; Translations: [Unspecified severe protein-calorie malnutrition] Onset: 02-22-2022 02-22-2022 Chronic Other aftercare (3 sources) Surgical follow-up; Translations: [Encounter for follow-up examination after completed treatment for conditions other than malignant neoplasm] Episodic Other aftercare (3 sources) History of malignant neoplasm of rectum; Translations: [Encounter for follow-up examination after completed treatment for malignant neoplasm] Episodic Other aftercare (1 source) Encounter for follow-up examination after completed treatment for conditions other than malignant neoplasm; Translations: [Follow-up examination after colorectal surgery] Onset: 10-13-2022 Episodic Other gastrointestinal disorders (2 sources) Colostomy present; Translations: [Colostomy status] Chronic Other gastrointestinal disorders (6 sources) Ileostomy present; Translations: [Encounter for attention to ileostomy] Onset: 02-20-2023 Chronic Other gastrointestinal disorders (1 source) High output ileostomy; Translations: [Other specified symptoms and signs involving the digestive system and abdomen] Episodic Other lower respiratory disease (2 sources) Multiple nodules of lung; Translations: [Other nonspecific abnormal finding of lung field] Episodic Other nervous system disorders (1 source) Postoperative pain ; Translations: [Other acute postprocedural pain] Episodic Other nervous system disorders (3 sources) Acute postoperative pain; Translations: [Other acute postprocedural pain] Episodic Substance-related disorders (20 sources) History of intravenous drug abuse; Translations: [Other psychoactive substance abuse, in remission] Onset: 08-31-2021 Chronic Thyroid disorders (20 sources) Hypothyroidism, unspecified; Translations: [Hypothyroidism] Onset: 11-29-2021 Chronic Past or Other Problems Problem Classification Problem Date Documented Da te Episodic/Chronic Anal and rectal conditions (20 sources) Rectal mass; Translations: [Other specified diseases of anus and rectum] Onset: 02-16-2022 Episodic Cancer of rectum and anus (2 sources) Personal history of other malignant neoplasm of rectum, rectosigmoid junction, and anus; Translations: [Encounter for follow-up surveillance of rectal cancer] Onset: 01-17-2023 Episodic Immunizations and screening for infectious disease (20 sources) Blood group antibody titer - finding; Translations: [Other specified abnormal immunological findings in serum] Onset: 02-09-2022 02-09-2022 Episodic Malaise and fatigue (20 sources) Malaise and fatigue; Translations: [Other malaise] Onset: 07-15-2022 07-15-2022 Episodic Noninfectious gastroenteritis (2 sources) Noninfective gastroenteritis and colitis, unspecified; Translations: [NONINFECTIVE GE AND COLITIS UNS] Onset: 09-20-2021 Episodic Other aftercare (1 source) Other group home (current) drug therapy; Translations: [OTH PENITENTIARY CURRENT DRUG THERAPY] Onset: 08-31-2021 Episodic Other aftercare (2 sources) Encounter for follow-up examination after completed treatment for malignant neoplasm; Translations: [Encounter for follow-up surveillance of rectal cancer] Onset: 01-17-2023 Episodic Other circulatory disease (20 sources) History of endocarditis; Translations: [Personal history of other diseases of the circulatory system] Onset: 01-17-2022 01-17-2022 Episodic Other circulatory disease (1 source) Personal history of other diseases of the circulatory system; Translations: [History of endocarditis] Onset: 01-17-2022 Episodic Other gastrointestinal disorders (3 sources) Diarrhea, unspecified; Translations: [DIARRHEA UNSPECIFIED] Onset: 08-27-2021 Episodic Other lower respiratory disease (2 sources) Other nonspecific abnormal finding of lung field; Translations: [Lung nodules] Onset: 09-26-2022 Episodic Other nervous system disorders (4 sources) Other acute postprocedural pain; Translations: [Acute post-operative pain] Onset: 11-07-2022 Episodic Other nervous system disorders (1 source) Acute pain due to trauma; Translations: [Acute pain due to trauma] Onset: 11-07-2022 Episodic Phlebitis; thrombophlebitis and thromboembolism (20 sources) Acute deep vein thrombosis of lower limb; Translations: [Acute embolism and thrombosis of unspecified deep veins of unspecified proximal lower extremity] Onset: 10-28-2022 Episodic Screening and history of mental health and substance abuse codes (11 sources) Ex-smoker; Translations: [Personal history of nicotine dependence] Onset: 02-16-2022 Episodic Results Test Name Value Interpretation Reference Range Facility [facility]) -------- HOANG WHITE ([id number]) 1975 M Date Time Provider Department 06/02/23 ANA ENRIQUEZ [facility] During your visit today, we recorded the following information about you: Ketty Padilla 06/02/2023 10:50 AM Signed Patient called in and he is having discomfort at the stoma site(bulge). Patient had a reversal with Dr. Enriquez on 02/20/23. Contact# [phone] Anthony Caraballo RN 06/02/2023 12:35 PM Signed Returned call. No answer. Left voice message informing her that if Hoang has a bulge at his old stoma site, it could be a hernia. He would need to come back to the office to be examined by Dr Enriquez. If he is having nausea, vomiting, not passing stool and has excruciating pain, he will need to go to the nearest emergency room to be examined. She will call the office to schedule an appointment or discuss symptoms further. Allergies As of Date: 06/02/2023 (No Known Allergies) Date Reviewed: 02/21/2023 Reviewed by: Krystina Tanner RN - Fully Assessed Reason for Visit: Patient Question [1477] Prescriptions as of 06/02/2023 - lactobacillus rhamnosus (CULTURELLE) 10 billion cell capsule Take 1 capsule by mouth once daily. - cyclobenzaprine (FLEXERIL) 5 mg tablet Take 1 tablet by mouth three times daily. - ibuprofen (MOTRIN) 400 mg tablet Take 1 tablet by mouth every 8 hours. - buPROPion XL (WELLBUTRIN XL) 300 mg 24 hr tablet TAKE 1 TABLET BY MOUTH DAILY (TAKE 150mg DAILY FOR 5 DAYS then INCREASE to 300 mg DAILY) - ibuprofen (MOTRIN) 200 mg tablet Take 200 mg by mouth every 6 hours as needed for pain. - buprenorphine-naloxone (SUBOXONE) 8-2 mg film DISSOLVE 2 (TWO) films UNDER THE TONGUE DAILY - iv contrast (will be provided with radiology test) CT ABD/PEL -Inject, intravenously, once for 1 dose.No IV access, insert saline lock prior to the beginning of sedation, infusion, injection of imaging exam. Discontinue saline lock post exam. If Pt. has a central line or IVAD, may access for administration according to line specific nursing protocol. Once exam is complete flush line and de-access according to line specific nursing protocol in the CT contrast administration guidelines link. - enteric contrast (will be provided with radiology test) For CT ABD/PEL W IVCON Routine order Administer, As Directed One Time Only, via Oral, Rectal, both Oral and Rectal, Enteric Tube, Stoma or Indwelling Catheter, Enteric Contrast as designated per enteric contrast guidelines - prochlorperazine (COMPAZINE) 10 mg tablet Take 1 tablet by mouth every 6 hours as needed. - nicotine (NICODERM) 21 mg/24 hr Apply 1 Patch as directed every 24 hours. - ondansetron (ZOFRAN) 8 mg tablet Take 1 tablet by mouth every 8 hours as needed for nausea/vomiting. - loratadine (CLARITIN) 10 mg tablet Take 10 mg by mouth once daily. - atorvastatin (LIPITOR) 10 mg tablet Take 10 mg by mouth once daily. - acetaminophen (TYLENOL) 500 mg tablet Take 2 tablets by mouth every 6 hours. - levothyroxine (SYNTHROID) 125 mcg tablet Take 125 mcg by mouth once daily. 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] 01/17/2022 Red blood cell antibody positive [R76.8] 02/09/2022 History of intravenous drug abuse (HCC) [F19.11]02/16/2022 Former smoker [Z87.891] 02/16/2022 Rectal mass [K62.89] 02/16/2022 Rectal cancer (HCC) [C20] 02/21/2022 Severe protein-calorie malnutrition (HCC) [E43] 02/22/2022 Malaise and fatigue [R53.81, R53.83] 07/15/2022 Hypothyroidism unspecified [E03.9] 12/02/2021 DVT (deep venous thrombosis) (HCC) [I82.409] 10/28/2022 Attention to ileostomy (HCC) [Z43.2] 02/20/2023 Encounter Status:Closed by ANTHONY CARABALLO on 06/02/23 Normal [facility] LIPID PANEL, NONFASTINGon Cholesterol [Mass/Vol] 202 mg/dL High <200 [facility] Comment on above: Order Comment: Speci men Type: BLOOD SPECIMENOrdering Facility: External Submitter Address: , , Result Comment: <200 mg/dL, Desirable 200-239 mg/dL, Borderline high >239 mg/dL, High Performed By: #### L [facility], 3016-3 ####[facility] LABCLIA [id number] [address] OF [facility] HDL CHOLESTEROL, NF 74 mg/dL Normal >39 [facility] Comment on above: Order Comment: Luz Elenayvette ibrahim Type: BLOOD SPECIMENOrdering Facility: External Submitter Address: , , Result Comment: 40-5 9 mg/dL, Acceptable >59 mg/dL, High: Negative risk factor for coronary heart disease <40 mg/dL, Low: Positive risk factor for coronary heart disease Performed By: #### L ANGELINA, 6-3 ####[facility] LABCLIA [id number] [address] LDL CHOLESTEROL, NF 109 mg/dL High <100 [facility] Comment on above: Order Comment: Gerry ibrahim Type: BLOOD SPECIMENOrdering Facility: External Submitter Address: , , Result Comment: <100 mg/dL, Optimal 100-129 mg/dL, Near optimal/above optimal 130-159 mg/dL, Borderline high 160-189 mg/dL, High >189 mg/dL, Very high Secondary prevention optimal LDL Cholesterol levels are recommended to be < 70 mg/dL Performed By: #### L ANGELINA, 3015-3 ####[facility] LABCLIA [id number] [address] LDL/HDL RATIO, NF 1.47 mg/dL Normal <2.54 [facility] Comment on above: Order Comment: Luz Elenayvette ibrahim Type: BLOOD SPECIMENOrdering Facility: External Submitter Address: , , Result Comment: Refe rence: 1. National Cholesterol Education Program ATP III Guideline At-A-Glance Quick Desk Reference: National Heart, Lung, and Blood [place]. National Institutes of Health. 2001: NIH Publication No. 01-3305. 2. An International Atherosclerosis Society position paper: global recommendations for the management of dyslipidemia: executive summary, Atherosclerosis. 2014: 232(2):410-413. Performed By: #### L ANGELINA, 6-3 ####[facility] LABCLIA [id number] [address] [place] HDL CHOL, NF 128 mg/dL Normal <130 [facility] Comment on above: Order Comment: Speci men Type: BLOOD SPECIMENOrdering Facility: External Submitter Address: , , Result Comment: <130 mg/dL, Optimal 130-159 mg/dL, Near optimal/above optimal 160-189 mg/dL, Borderline high 190-219 mg/dL, High >219 mg/dL, Very high Secondary prevention optimal non HDL Cholesterol levels are recommended to be <100 mg/dL Performed By: #### L ANGELINA, 3015- ####[facility] LABCLIA [id number] [address] OF [place] CHOL/HDL RATIO NF 2.73 mg/dL Normal <5.10 [facility] Comment on above: Order Comment: Speci men Type: BLOOD SPECIMENOrdering Facility: External Submitter Address: , , Performed By: #### L ANGELINA, 3015-12 ####[facility] LABCLIA [id number] [place] [address] [place] TRIGLYCERIDES, NF 93 mg/dL Normal <150 [facility] Comment on above: Order Comment: Speci men Type: BLOOD SPECIMENOrdering Facility: External Submitter Address: , , Result Comment: <150 mg/dL, Normal 150-199 mg/dL, Borderline high 200-499 mg/dL, High >499 mg/dL, Very high Performed By: #### L ANGELINA, 3015-12 ####[facility] LABCLIA [id number] [place] [address] [place] VLDL CHOLESTEROL, NF 19 mg/dL Normal <30 [facility] Comment on above: Order Comment: Speci men Type: BLOOD SPECIMENOrdering Facility: External Submitter Address: , , Performed By: #### L ANGELINA, 3015-12 ####[facility] LABCLIA [id number] [place] [address] [place] TSH SerPl-aCncon 04-27-2023 TSH Qn 5.000 m[IU]/L High 0.270-4.200 [facility] Comment on above: Order Comment: Speci men Type: BLOOD SPECIMENOrdering Facility: External Submitter Address: , , Performed By: #### L IP, 3016-3 ####[facility] LABCLIA [id number] [address] OF [facility] CNCOon 04-11-2023 CNCO Letter Text Normal [facility] CNPNon 03-02-2023 CNPN Telephone (REFAIR) -------- HOANG WHITE ([id number]) 1975 M Date Time Provider Department 03/02/23 MARY SOLORIO During your visit today, we recorded the following information about you: Catalina Muhammad 03/02/2023 2:00 PM Signed IRB # [id number] Tight perioperative blood pressure management to reduce serious cardiovascular, renal, and cognitive complications: The GUARDIAN trial PI: Mary Solorio MD, LUCIA, FASA. Outcomes Research Department. Anesthesia [place]. [facility]. This is a research study note. Patient assessments recorded here should not guide either clinical care or clinical decision-making. I called the patient, Hoang White, today regarding follow-up for the study IRB [id number] Tight Perioperative Blood pressure Management to Reduce Serious Cardiovascular, renal, and Cognitive Complications (GUARDIAN) Trial. The patient refused to answer any questions. Catalina Muhammad Research Scheduler Maintenance Outcomes Research [facility] [place] Allergies As of Date: 03/02/2023 (No Known Allergies) Date Reviewed: 02/21/2023 Reviewed by: Krystina Tanner RN - Fully Assessed Reason for Visit: Research Follow Up [Other] Prescriptions as of 03/02/2023 - lactobacillus rhamnosus (CULTURELLE) 10 billion cell capsule Take 1 capsule by mouth once daily. - cyclobenzaprine (FLEXERIL) 5 mg tablet Take 1 tablet by mouth three times daily. - ibuprofen (MOTRIN) 400 mg tablet Take 1 tablet by mouth every 8 hours. - buPROPion XL (WELLBUTRIN XL) 300 mg 24 hr tablet TAKE 1 TABLET BY MOUTH DAILY (TAKE 150mg DAILY FOR 5 DAYS then INCREASE to 300 mg DAILY) - ibuprofen (MOTRIN) 200 mg tablet Take 200 mg by mouth every 6 hours as needed for pain. - buprenorphine-naloxone (SUBOXONE) 8-2 mg film DISSOLVE 2 (TWO) films UNDER THE TONGUE DAILY - iv contrast (will be provided with radiology test) CT ABD/PEL -Inject, intravenously, once for 1 dose.No IV access, insert saline lock prior to the beginning of sedation, infusion, injection of imaging exam. Discontinue saline lock post exam. If Pt. has a central line or IVAD, may access for administration according to line specific nursing protocol. Once exam is complete flush line and de-access according to line specific nursing protocol in the CT contrast administration guidelines link. - enteric contrast (will be provided with radiology test) For CT ABD/PEL W IVCON Routine order Administer, As Directed One Time Only, via Oral, Rectal, both Oral and Rectal, Enteric Tube, Stoma or Indwelling Catheter, Enteric Contrast as designated per enteric contrast guidelines - prochlorperazine (COMPAZINE) 10 mg tablet Take 1 tablet by mouth every 6 hours as needed. - nicotine (NICODERM) 21 mg/24 hr Apply 1 Patch as directed every 24 hours. - ondansetron (ZOFRAN) 8 mg tablet Take 1 tablet by mouth every 8 hours as needed for nausea/vomiting. - loratadine (CLARITIN) 10 mg tablet Take 10 mg by mouth once daily. - atorvastatin (LIPITOR) 10 mg tablet Take 10 mg by mouth once daily. - acetaminophen (TYLENOL) 500 mg tablet Take 2 tablets by mouth every 6 hours. - levothyroxine (SYNTHROID) 125 mcg tablet Take 125 mcg by mouth once daily. Facility-Administered Medications as of 03/02/2023 - perflutren lipid microspheres 1.3 mL in NaCl (PF) 0.9% 10 mL injection (DEFINITY) - sodium chloride 0.9 % (flush) 10 mL (BD POSIFLUSH) Problem List As Of Date 03/02/2023 Noted Resolved History of endocarditis [Z86.79] 01/17/2022 Severe tricuspid regurgitation [I07.1] 01/17/2022 Abnormality of right ventricle of heart [Q20.8] 01/17/2022 Red blood cell antibody positive [R76.8] 02/09/2022 History of intravenous drug abuse (HCC) [F19.11]02/16/2022 Former smoker [Z87.891] 02/16/2022 Rectal mass [K62.89] 02/16/2022 Rectal cancer (HCC) [C20] 02/21/2022 Severe protein-calorie malnutrition (HCC) [E43] 02/22/2022 Malaise and fatigue [R53.81, R53.83] 07/15/2022 Hypothyroidism unspecified [E03.9] 12/02/2021 DVT (deep venous thrombosis) (HCC) [I82.409] 10/28/2022 Attention to ileostomy (HCC) [Z43.2] 02/20/2023 Encounter Status:Closed by CATALINA MUHAMMAD on 03/02/23 [facility] 03-01-2023 [facility] Telephone (REFAIR) -------- HOANG WHITE ([id number]) 1975 M Date Time Provider Department 03/01/23 MARY SOLORIO During your visit today, we recorded the following information about you: Catalina Muhammad 03/01/2023 2:53 PM Signed IRB # [id number] Tight perioperative blood pressure management to reduce serious cardiovascular, renal, and cognitive complications: The GUARDIAN trial PI: Mary Solorio MD, LUCIA, FASA. Outcomes Research Department. Anesthesia [place]. [facility]. This is a research study note. Patient assessments recorded here should not guide either clinical care or clinical decision-making. Hoang White was unavailable at the listed phone number. A voice message was left. We will attempt to contact the patient again at a later date. Catalina Muhammad Research Scheduler Maintenance Outcomes Research [facility] Allergies As of Date: 03/01/2023 (No Known Allergies) Date Reviewed: 02/21/2023 Reviewed by: Krystina Tanner RN - Fully Assessed Reason for Visit: Research Follow Up [Other] Prescriptions as of 03/01/2023 - lactobacillus rhamnosus (CULTURELLE) 10 billion cell capsule Take 1 capsule by mouth once daily. - cyclobenzaprine (FLEXERIL) 5 mg tablet Take 1 tablet by mouth three times daily. - ibuprofen (MOTRIN) 400 mg tablet Take 1 tablet by mouth every 8 hours. - oxyCODONE IR (ROXICODONE) 5 mg immediate release tablet Take 1 tablet by mouth every 6 hours as needed for up to 7 days. - buPROPion XL (WELLBUTRIN XL) 300 mg 24 hr tablet TAKE 1 TABLET BY MOUTH DAILY (TAKE 150mg DAILY FOR 5 DAYS then INCREASE to 300 mg DAILY) - ibuprofen (MOTRIN) 200 mg tablet Take 200 mg by mouth every 6 hours as needed for pain. - buprenorphine-naloxone (SUBOXONE) 8-2 mg film DISSOLVE 2 (TWO) films UNDER THE TONGUE DAILY - iv contrast (will be provided with radiology test) CT ABD/PEL -Inject, intravenously, once for 1 dose.No IV access, insert saline lock prior to the beginning of sedation, infusion, injection of imaging exam. Discontinue saline lock post exam. If Pt. has a central line or IVAD, may access for administration according to line specific nursing protocol. Once exam is complete flush line and de-access according to line specific nursing protocol in the CT contrast administration guidelines link. - enteric contrast (will be provided with radiology test) For CT ABD/PEL W IVCON Routine order Administer, As Directed One Time Only, via Oral, Rectal, both Oral and Rectal, Enteric Tube, Stoma or Indwelling Catheter, Enteric Contrast as designated per enteric contrast guidelines - prochlorperazine (COMPAZINE) 10 mg tablet Take 1 tablet by mouth every 6 hours as needed. - nicotine (NICODERM) 21 mg/24 hr Apply 1 Patch as directed every 24 hours. - ondansetron (ZOFRAN) 8 mg tablet Take 1 tablet by mouth every 8 hours as needed for nausea/vomiting. - loratadine (CLARITIN) 10 mg tablet Take 10 mg by mouth once daily. - atorvastatin (LIPITOR) 10 mg tablet Take 10 mg by mouth once daily. - acetaminophen (TYLENOL) 500 mg tablet Take 2 tablets by mouth every 6 hours. - levothyroxine (SYNTHROID) 125 mcg tablet Take 125 mcg by mouth once daily. 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.8] 01/17/2022 Red blood cell antibody positive [R76.8] 02/09/2022 History of intravenous drug abuse (HCC) [F19.11]02/16/2022 Former smoker [Z87.891] 02/16/2022 Rectal mass [K62.89] 02/16/2022 Rectal cancer (HCC) [C20] 02/21/2022 Severe protein-calorie malnutrition (HCC) [E43] 02/22/2022 Malaise and fatigue [R53.81, R53.83] 07/15/2022 Hypothyroidism unspecified [E03.9] 12/02/2021 DVT (deep venous thrombosis) (HCC) [I82.409] 10/28/2022 Attention to ileostomy (HCC) [Z43.2] 02/20/2023 Encounter Status:Closed by CATALINA MUHAMMAD on 03/01/23 [facility] 02-28-2023 AMY Telephone (REFAIR) -------- HOANG WHITE ([id number]) 1975 M Date Time Provider Department 02/28/23 MARY SOLORIO During your visit today, we recorded the following information about you: Catalina Youngholden 02/28/2023 4:14 PM Signed IRB # [id number] Tight perioperative blood pressure management to reduce serious cardiovascular, renal, and cognitive complications: The GUARDIAN trial PI: Mary Solorio MD, LUCIA, FASA. Outcomes Research Department. Anesthesia [place]. [facility]. This is a research study note. Patient assessments recorded here should not guide either clinical care or clinical decision-making. Hoang White was unavailable at the listed phone number. A voice message was left. We will attempt to contact the patient again at a later date. Catalina Muhammad Research Scheduler Maintenance Outcomes Research [facility] Allergies As of Date: 02/28/2023 (No Known Allergies) Date Reviewed: 02/21/2023 Reviewed by: Krystina Tanner RN - Fully Assessed Reason for Visit: Research Follow Up [Other] Prescriptions as of 02/28/2023 - lactobacillus rhamnosus (CULTURELLE) 10 billion cell capsule Take 1 capsule by mouth once daily. - cyclobenzaprine (FLEXERIL) 5 mg tablet Take 1 tablet by mouth three times daily. - ibuprofen (MOTRIN) 400 mg tablet Take 1 tablet by mouth every 8 hours. - oxyCODONE IR (ROXICODONE) 5 mg immediate release tablet Take 1 tablet by mouth every 6 hours as needed for up to 7 days. - buPROPion XL (WELLBUTRIN XL) 300 mg 24 hr tablet TAKE 1 TABLET BY MOUTH DAILY (TAKE 150mg DAILY FOR 5 DAYS then INCREASE to 300 mg DAILY) - ibuprofen (MOTRIN) 200 mg tablet Take 200 mg by mouth every 6 hours as needed for pain. - buprenorphine-naloxone (SUBOXONE) 8-2 mg film DISSOLVE 2 (TWO) films UNDER THE TONGUE DAILY - iv contrast (will be provided with radiology test) CT ABD/PEL -Inject, intravenously, once for 1 dose.No IV access, insert saline lock prior to the beginning of sedation, infusion, injection of imaging exam. Discontinue saline lock post exam. If Pt. has a central line or IVAD, may access for administration according to line specific nursing protocol. Once exam is complete flush line and de-access according to line specific nursing protocol in the CT contrast administration guidelines link. - enteric contrast (will be provided with radiology test) For CT ABD/PEL W IVCON Routine order Administer, As Directed One Time Only, via Oral, Rectal, both Oral and Rectal, Enteric Tube, Stoma or Indwelling Catheter, Enteric Contrast as designated per enteric contrast guidelines - prochlorperazine (COMPAZINE) 10 mg tablet Take 1 tablet by mouth every 6 hours as needed. - nicotine (NICODERM) 21 mg/24 hr Apply 1 Patch as directed every 24 hours. - ondansetron (ZOFRAN) 8 mg tablet Take 1 tablet by mouth every 8 hours as needed for nausea/vomiting. - loratadine (CLARITIN) 10 mg tablet Take 10 mg by mouth once daily. - atorvastatin (LIPITOR) 10 mg tablet Take 10 mg by mouth once daily. - acetaminophen (TYLENOL) 500 mg tablet Take 2 tablets by mouth every 6 hours. - levothyroxine (SYNTHROID) 125 mcg tablet Take 125 mcg by mouth once daily. Facility-Administered Medications as of 02/28/2023 - perflutren lipid microspheres 1.3 mL in NaCl (PF) 0.9% 10 mL injection (DEFINITY) - sodium chloride 0.9 % (flush) 10 mL (BD POSIFLUSH) Problem List As Of Date 02/28/2023 Noted Resolved History of endocarditis [Z86.79] 01/17/2022 Severe tricuspid regurgitation [I07.1] 01/17/2022 Abnormality of right ventricle of heart [Q20.8] 01/17/2022 Red blood cell antibody positive [R76.8] 02/09/2022 History of intravenous drug abuse (HCC) [F19.11]02/16/2022 Former smoker [Z87.891] 02/16/2022 Rectal mass [K62.89] 02/16/2022 Rectal cancer (HCC) [C20] 02/21/2022 Severe protein-calorie malnutrition (HCC) [E43] 02/22/2022 Malaise and fatigue [R53.81, R53.83] 07/15/2022 Hypothyroidism unspecified [E03.9] 12/02/2021 DVT (deep venous thrombosis) (HCC) [I82.409] 10/28/2022 Attention to ileostomy ([facility]) [Z43.2] 02/20/2023 Encounter Status:Closed by CATALINA MUHAMMAD on 02/28/23 [facility] CNPN Telephone (PODCCP) -------- ESTRADAHOANG ([id number]) 1975 M Date Time Provider Department 02/28/23 KARIME JOYNER During your visit today, we recorded the following information about you: Karime Joyner RN 02/28/2023 11:35 AM Signed PATIENT INFORMATION Record ID: [id number] Patient Name: [facility]: [place]: Digestive Disease [facility] [place] Attending: Ana Enriquez Center: Colorectal Surgery INSTRUCTIONS Continue with script and ensure patient has appropriate number for [facility] or Appointment Center according to discharging physician?s specialty and location at end of call All Clear SURVEY INFORMATION Medical/Nurse Scheduler Maintenance: Karime Joyner 1. Your discharge instructions are important in guiding you through the recovery process. Is there anything I could help you clarify on your discharge instructions? (Standard Question) No, no clarification needed 2. We encourage a follow up appointment with your physician. Do you have one scheduled? If not; What is the name of the doctor you should be seeing for your follow-up care? (Standard Question) No, patient prefers to schedule in own time MA/SN Notes: needing to reschedule apt 3. Many patients have concerns about their medications once they are home. Do you have any questions about getting or taking your medications? (Standard Question) No 4. Do you have any new or worsening symptoms? (Standard Question) No Allergies As of Date: 02/28/2023 (No Known Allergies) Date Reviewed: 02/21/2023 Reviewed by: Krystina Tanner RN - Fully Assessed Reason for Visit: Follow Up [171] Cmt: All clear Prescriptions as of 02/28/2023 - lactobacillus rhamnosus (CULTURELLE) 10 billion cell capsule Take 1 capsule by mouth once daily. - cyclobenzaprine (FLEXERIL) 5 mg tablet Take 1 tablet by mouth three times daily. - ibuprofen (MOTRIN) 400 mg tablet Take 1 tablet by mouth every 8 hours. - oxyCODONE IR (ROXICODONE) 5 mg immediate release tablet Take 1 tablet by mouth every 6 hours as needed for up to 7 days. - buPROPion XL (WELLBUTRIN XL) 300 mg 24 hr tablet TAKE 1 TABLET BY MOUTH DAILY (TAKE 150mg DAILY FOR 5 DAYS then INCREASE to 300 mg DAILY) - ibuprofen (MOTRIN) 200 mg tablet Take 200 mg by mouth every 6 hours as needed for pain. - buprenorphine-naloxone (SUBOXONE) 8-2 mg film DISSOLVE 2 (TWO) films UNDER THE TONGUE DAILY - iv contrast (will be provided with radiology test) CT ABD/PEL -Inject, intravenously, once for 1 dose.No IV access, insert saline lock prior to the beginning of sedation, infusion, injection of imaging exam. Discontinue saline lock post exam. If Pt. has a central line or IVAD, may access for administration according to line specific nursing protocol. Once exam is complete flush line and de-access according to line specific nursing protocol in the CT contrast administration guidelines link. - enteric contrast (will be provided with radiology test) For CT ABD/PEL W IVCON Routine order Administer, As Directed One Time Only, via Oral, Rectal, both Oral and Rectal, Enteric Tube, Stoma or Indwelling Catheter, Enteric Contrast as designated per enteric contrast guidelines - prochlorperazine (COMPAZINE) 10 mg tablet Take 1 tablet by mouth every 6 hours as needed. - nicotine (NICODERM) 21 mg/24 hr Apply 1 Patch as directed every 24 hours. - ondansetron (ZOFRAN) 8 mg tablet Take 1 tablet by mouth every 8 hours as needed for nausea/vomiting. - loratadine (CLARITIN) 10 mg tablet Take 10 mg by mouth once daily. - atorvastatin (LIPITOR) 10 mg tablet Take 10 mg by mouth once daily. - acetaminophen (TYLENOL) 500 mg tablet Take 2 tablets by mouth every 6 hours. - levothyroxine (SYNTHROID) 125 mcg tablet Take 125 mcg by mouth once daily. Facility-Administered Medications as of 02/28/2023 - perflutren lipid microspheres 1.3 mL in NaCl (PF) 0.9% 10 mL injection (DEFINITY) - sodium chloride 0.9 % (flush) 10 mL (BD POSIFLUSH) Problem List As Of Date 02/28/2023 Noted Resolved History of endocarditis [Z86.79] 01/17/2022 Severe tricuspid regurgitation [I07.1] 01/17/2022 Abnormality of right ventricle of heart [Q20.8] 01/17/2022 Red blood cell antibody positive [R76.8] 02/09/2022 History of intravenous drug abuse (HCC) [F19.11]02/16/2022 Former smoker [Z87.891] 02/16/2022 Rectal mass [K62.89] 02/16/2022 Rectal cancer (HCC) [C20] 02/21/2022 Severe protein-calorie malnutrition (HCC) [E43] 02/22/2022 Malaise and fatigue [R53.81, R53.83] 07/15/2022 Hypothyroidism unspecified [E03.9] 12/02/2021 DVT (deep venous thrombosis) (HCC) [I82.409] 10/28/2022 Attention to ileostomy (HCC) [Z43.2] 02/20/2023 Encounter Status:Closed by KARIME JOYNER on 02/28/23 [facility] 02-27-2023 CNPN Telephone (PODCCP) -------- HOANG WHITE ([id number]) 1975 M Date Time Provider Department 02/27/23 KARIME JOYNER PODCCP During your visit today, we recorded the following information about you: Allergies As of Date: 02/27/2023 (No Known Allergies) Date Reviewed: 02/21/2023 Reviewed by: Krystina Tanner RN - Fully Assessed Reason for Visit: Follow Up [171] Cmt: Geovanni interaction - F/U - attempt made. No answer. Prescriptions as of 02/27/2023 - lactobacillus rhamnosus (CULTURELLE) 10 billion cell capsule Take 1 capsule by mouth once daily. - cyclobenzaprine (FLEXERIL) 5 mg tablet Take 1 tablet by mouth three times daily. - ibuprofen (MOTRIN) 400 mg tablet Take 1 tablet by mouth every 8 hours. - oxyCODONE IR (ROXICODONE) 5 mg immediate release tablet Take 1 tablet by mouth every 6 hours as needed for up to 7 days. - buPROPion XL (WELLBUTRIN XL) 300 mg 24 hr tablet TAKE 1 TABLET BY MOUTH DAILY (TAKE 150mg DAILY FOR 5 DAYS then INCREASE to 300 mg DAILY) - ibuprofen (MOTRIN) 200 mg tablet Take 200 mg by mouth every 6 hours as needed for pain. - buprenorphine-naloxone (SUBOXONE) 8-2 mg film DISSOLVE 2 (TWO) films UNDER THE TONGUE DAILY - iv contrast (will be provided with radiology test) CT ABD/PEL -Inject, intravenously, once for 1 dose.No IV access, insert saline lock prior to the beginning of sedation, infusion, injection of imaging exam. Discontinue saline lock post exam. If Pt. has a central line or IVAD, may access for administration according to line specific nursing protocol. Once exam is complete flush line and de-access according to line specific nursing protocol in the CT contrast administration guidelines link. - enteric contrast (will be provided with radiology test) For CT ABD/PEL W IVCON Routine order Administer, As Directed One Time Only, via Oral, Rectal, both Oral and Rectal, Enteric Tube, Stoma or Indwelling Catheter, Enteric Contrast as designated per enteric contrast guidelines - prochlorperazine (COMPAZINE) 10 mg tablet Take 1 tablet by mouth every 6 hours as needed. - nicotine (NICODERM) 21 mg/24 hr Apply 1 Patch as directed every 24 hours. - ondansetron (ZOFRAN) 8 mg tablet Take 1 tablet by mouth every 8 hours as needed for nausea/vomiting. - loratadine (CLARITIN) 10 mg tablet Take 10 mg by mouth once daily. - atorvastatin (LIPITOR) 10 mg tablet Take 10 mg by mouth once daily. - acetaminophen (TYLENOL) 500 mg tablet Take 2 tablets by mouth every 6 hours. - levothyroxine (SYNTHROID) 125 mcg tablet Take 125 mcg by mouth once daily. Facility-Administered Medications as of 02/27/2023 - perflutren lipid microspheres 1.3 mL in NaCl (PF) 0.9% 10 mL injection (DEFINITY) - sodium chloride 0.9 % (flush) 10 mL (BD POSIFLUSH) Problem List As Of Date 02/27/2023 Noted Resolved History of endocarditis [Z86.79] 01/17/2022 Severe tricuspid regurgitation [I07.1] 01/17/2022 Abnormality of right ventricle of heart [Q20.8] 01/17/2022 Red blood cell antibody positive [R76.8] 02/09/2022 History of intravenous drug abuse (HCC) [F19.11]02/16/2022 Former smoker [Z87.891] 02/16/2022 Rectal mass [K62.89] 02/16/2022 Rectal cancer (HCC) [C20] 02/21/2022 Severe protein-calorie malnutrition (HCC) [E43] 02/22/2022 Malaise and fatigue [R53.81, R53.83] 07/15/2022 Hypothyroidism unspecified [E03.9] 12/02/2021 DVT (deep venous thrombosis) (HCC) [I82.409] 10/28/2022 Attention to ileostomy (HCC) [Z43.2] 02/20/2023 Encounter Status:Closed by KARIME JOYNER on 02/27/23 [facility] 02-24-2023 TAHIRAN Telephone (HEMASA) -------- HOANG WHITE ([id number]) 1975 M Date Time Provider Department 02/24/23 OSCAR GONZALEZ During your visit today, we recorded the following information about you: Ava Michael 02/24/2023 3:56 PM Signed Pt called and stated that he has to go back to see Dr. Enriquez on March 03 for her to check his stoma closure site. He was wondering if he would be able to come here instead to have it checked because [place] hour drive for him and he does not have the means or a ride to get there. He does not have any stitches that need removed and just needs someone to say its not infected and looks good. He is willing to see an wash and greaser for this. Ava Gonzalez MD 02/24/2023 5:04 PM Signed I would recommed that he sees Dr. Zoe Baum RN 02/27/2023 9:37 AM Signed Pt is aware he will need to see Dr Enriquez. He denies any further needs at this time. Oumar Baum RN Allergies As of Date: 02/24/2023 (No Known Allergies) Date Reviewed: 02/21/2023 Reviewed by: Krystina Tanner RN - Fully Assessed Reason for Visit: Patient Question [1477] Prescriptions as of 02/27/2023 - lactobacillus rhamnosus (CULTURELLE) 10 billion cell capsule Take 1 capsule by mouth once daily. - cyclobenzaprine (FLEXERIL) 5 mg tablet Take 1 tablet by mouth three times daily. - ibuprofen (MOTRIN) 400 mg tablet Take 1 tablet by mouth every 8 hours. - oxyCODONE IR (ROXICODONE) 5 mg immediate release tablet Take 1 tablet by mouth every 6 hours as needed for up to 7 days. - buPROPion XL (WELLBUTRIN XL) 300 mg 24 hr tablet TAKE 1 TABLET BY MOUTH DAILY (TAKE 150mg DAILY FOR 5 DAYS then INCREASE to 300 mg DAILY) - ibuprofen (MOTRIN) 200 mg tablet Take 200 mg by mouth every 6 hours as needed for pain. - buprenorphine-naloxone (SUBOXONE) 8-2 mg film DISSOLVE 2 (TWO) films UNDER THE TONGUE DAILY - iv contrast (will be provided with radiology test) CT ABD/PEL -Inject, intravenously, once for 1 dose.No IV access, insert saline lock prior to the beginning of sedation, infusion, injection of imaging exam. Discontinue saline lock post exam. If Pt. has a central line or IVAD, may access for administration according to line specific nursing protocol. Once exam is complete flush line and de-access according to line specific nursing protocol in the CT contrast administration guidelines link. - enteric contrast (will be provided with radiology test) For CT ABD/PEL W IVCON Routine order Administer, As Directed One Time Only, via Oral, Rectal, both Oral and Rectal, Enteric Tube, Stoma or Indwelling Catheter, Enteric Contrast as designated per enteric contrast guidelines - prochlorperazine (COMPAZINE) 10 mg tablet Take 1 tablet by mouth every 6 hours as needed. - nicotine (NICODERM) 21 mg/24 hr Apply 1 Patch as directed every 24 hours. - ondansetron (ZOFRAN) 8 mg tablet Take 1 tablet by mouth every 8 hours as needed for nausea/vomiting. - loratadine (CLARITIN) 10 mg tablet Take 10 mg by mouth once daily. - atorvastatin (LIPITOR) 10 mg tablet Take 10 mg by mouth once daily. - acetaminophen (TYLENOL) 500 mg tablet Take 2 tablets by mouth every 6 hours. - levothyroxine (SYNTHROID) 125 mcg tablet Take 125 mcg by mouth once daily. Facility-Administered Medications as of 02/27/2023 - perflutren lipid microspheres 1.3 mL in NaCl (PF) 0.9% 10 mL injection (DEFINITY) - sodium chloride 0.9 % (flush) 10 mL (BD POSIFLUSH) Problem List As Of Date 02/24/2023 Noted Resolved History of endocarditis [Z86.79] 01/17/2022 Severe tricuspid regurgitation [I07.1] 01/17/2022 Abnormality of right ventricle of heart [Q20.8] 01/17/2022 Red blood cell antibody positive [R76.8] 02/09/2022 History of intravenous drug abuse (HCC) [F19.11]02/16/2022 Former smoker [Z87.891] 02/16/2022 Rectal mass [K62.89] 02/16/2022 Rectal cancer (HCC) [C20] 02/21/2022 Severe protein-calorie malnutrition (HCC) [E43] 02/22/2022 Malaise and fatigue [R53.81, R53.83] 07/15/2022 Hypothyroidism unspecified [E03.9] 12/02/2021 DVT (deep venous thrombosis) (HCC) [I82.409] 10/28/2022 Attention to ileostomy (HCC) [Z43.2] 02/20/2023 Encounter Status:[facility] HNO ID: [id number] Author: Bouchra Thompson APRN.CNP Service: Colorectal Author Type: Nurse Practitioner Type: Discharge Summary Filed: 02/23/2023 2:38 PM Note Text: -------- Attestation signed by Ana Enriquez MD at 02/24/2023 9:57 AM [employer] STAFF PHYSICIAN NOTE OF PERSONAL INVOLVEMENT IN CARE I have reviewed the discharge summary documented by the nurse practitioner and I personally participated in the rubin components. I have confirmed and edited as necessary, the PFSH and ROS obtained by others. I have discussed the case and management of the patient's care. Ana Enriquez MD Date of Service: February 22, 2023 -------- DISCHARGE SUMMARY PATIENT NAME: Hoang White ADMISSION DATE: 02/20/2023 DISCHARGE DATE: 02/22/2023 ATTENDING PHYSICIAN: Ana Enriquez MD Code Status: Not on file Highest Readmission Risk Score: 10 The 30 day readmissions risk score is derived from an internally validated risk model which evaluates patient level characteristics, utilization history, medication orders and lab results up until the day of discharge. Patients with a score of 40 or above are considered highest risk for readmission. Specific patient level drivers will be listed at the bottom of the summary. CONSULTING TEAMS DURING HOSPITALIZATION: None Treatment Team: Attending Provider: Ana Enriquez MD REASON FOR HOSPITALIZATION: scheduled surgery DIAGNOSIS: Principal Problem: Attention to ileostomy (HCC) POA: Yes Resolved Problems: * No resolved hospital problems. * OPERATIONS DURING HOSPITALIZATION: ileostomy closure PROCEDURES DURING HOSPITALIZATION: No procedures performed HOSPITAL COURSE: Mr White is a 47 year old male who was admitted for scheduled surgery with Dr. Enriquez - ileostomy closure. Post-op on the regular nursing floor. Pain controlled with multiple modalities. Labs and vitals remained stable. DVT ppx with lovenox during admission. Mobilized independently. Diet advanced and able to tolerate a GI soft diet prior ot discharge. Bowel function returned with loose stools and flatus. Discharged home on 02/22/223 with follow up scheduled. He was given a prescription for post-op pain and clearly instructed to not resume his suboxone until 24 hours after his last dose of roxicodone. Transitions of Care Critical Issues: N/a LABS AND PROCEDURES PENDING AT DISCHARGE: No pending results. PATIENT CONDITION AT DISCHARGE: Stable DISCHARGE DISPOSITION: Home with Self Care Discharge Physical Exam: VITAL SIGNS: BP 119/72 Pulse 71 Temp 36.8 ?C (98.2 ?F) (Oral) Resp 17 Ht 172.7 cm (5' 8 ) Wt 61.2 kg (135 lb) SpO2 98% BMI 20.53 kg/m? GENERAL: Alert, no distress, cooperative SKIN: Skin color, texture, turgor normal. No rashes or lesions. LUNGS: Lungs clear to auscultation, Good diaphragmatic excursion CARDIAC: Normal S1 and S2; no rubs, murmurs, or gallops ABDOMEN: soft, non-tender, non-distended. Stoma closure site shallow with serosanguinous fluid draining. EXTREMITIES: Extremities normal, no deformities, edema, clubbing or skin discoloration. Good capillary refill. INFORMATION PROVIDED TO PATIENT: discharge instructions ALLERGIES No Known Allergies DISCHARGE MEDICATION: Discharge Medication List as of 02/22/2023 5:07 PM START taking these medications cyclobenzaprine (FLEXERIL) 5 mg tablet Take 1 tablet by mouth three times daily. Normal, Disp-20 tablet, R-0 !! ibuprofen (MOTRIN) 400 mg tablet Take 1 tablet by mouth every 8 hours. Normal, Disp-20 tablet, R-0 oxyCODONE IR (ROXICODONE) 5 mg immediate release tablet Take 1 tablet by mouth every 6 hours as needed for up to 7 days. Normal, Disp-20 tablet, R-0 Dx: 1. Post-op pain !! - Potential duplicate medications found. Please discuss with provider. CONTINUE these medications which have CHANGED lactobacillus rhamnosus (CULTURELLE) 10 billion cell capsule Take 1 capsule by mouth once daily. Normal, Disp-30 capsule, R-0, Long-term CONTINUE these medications which have NOT CHANGED buPROPion XL (WELLBUTRIN XL) 300 mg 24 hr tablet TAKE 1 TABLET BY MOUTH DAILY (TAKE 150mg DAILY FOR 5 DAYS then INCREASE to 300 mg DAILY) Normal, Disp-30 tablet, R-2, Long-term !! ibuprofen (MOTRIN) 200 mg tablet Take 200 mg by mouth every 6 hours as needed for pain. Historical Med buprenorphine-naloxone (SUBOXONE) 8-2 mg film DISSOLVE 2 (TWO) films UNDER THE TONGUE DAILY Historical Med iv contrast (will be provided with radiology test) CT ABD/PEL -Inject, intravenously, once for 1 dose.No IV access, insert saline lock prior to the beginning of sedation, infusion, injection of imaging exam. Discontinue saline lock post exam. If Pt. has a central line or IVAD, may access for administrati on according to line specific nursing protocol. Once exam i (more content not included)... Normal [facility] NURSING PROGon 02-22-2023 NURSING PROG HNO ID: [id number] Author: Krystina Tanner RN Service: Nursing Author Type: Registered Nurse Type: Nursing Progress Note Filed: 02/22/2023 5:49 AM Note Text: 3754: Patient has had 400 mL of bloody BMs since start of shift at 1930. Entereg held due to frequent bowel movements. international affairs vice president paged. international affairs vice president on floor to see patient. Per Dr. Filemon bush to monitor for now. CBC done this evening without much change from previous. Next CBC scheduled for tomorrow at 2200. 0500: Pt now having brown, liquid bowel movements. Normal [facility] Basic metabolic 2000 panelon 02-21-2023 Anion gap [Moles/Vol] 11 mmol/L Normal 9-18 [facility] Comment on above: Order Comment: Speci men Type: BLOOD SPECIMEN Ordering Facility: [facility] Address: [address] [place] [address] [place] [address] Performed By: #### 2 4321-2 #### [facility] CLIA [id number] [address] [place] [address] [place] Calcium [Mass/Vol] 9.3 mg/dL Normal 8.5-10.2 [facility] Comment on above: Order Comment: Speci men Type: BLOOD SPECIMEN Ordering Facility: [facility] Address: [address] [address] Performed By: #### 2 4321-2 #### [facility] CLIA [id number] [address] [place] [address] [place] Chloride [Moles/Vol] 106 mmol/L High 97-105 [facility] Comment on above: Order Comment: Speci men Type: BLOOD SPECIMEN Ordering Facility: [facility] Address: [address] [place] [address] Performed By: #### 2 4321-2 #### [facility] CLIA [id number] [address] [place] [address] [place] CO2 [Moles/Vol] 24 mmol/L Normal 22-30 [facility] Comment on above: Order Comment: Speci men Type: BLOOD SPECIMEN Ordering Facility: [facility] Address: [address] [place] [address] Performed By: #### 2 4321-2 #### [facility] CLIA [id number] [address] [place] [address] [place] Creatinine [Mass/Vol] 0.89 mg/dL Normal 0.73-1.22 [facility] Comment on above: Order Comment: Speci men Type: BLOOD SPECIMEN Ordering Facility: [facility] Address: [address] [place] [address] Performed By: #### 2 4321-2 #### [facility] CLIA [id number] [address] [place] [address] ESTIMATED GLOMERULAR FILTRATION RATE 105 mL/min/1.73m??? Normal >=60 [facility] Comment on above: Order Comment: Speci men Type: BLOOD SPECIMEN Ordering Facility: [facility] Address: [address] [place] [address] Result Comment: Tanya mated Glomerular Filtration Rate (eGFR) is calculated using the 2020 CKD-EPI creatinine equation. This equation utilizes serum creatinine, sex, and age as parameters. The creatinine assay has traceable calibration to isotope dilution-mass spectrometry. Refer to KDIGO guidelines for clinical interpretation. In patients with unstable renal function, e.g. those with acute kidney injury, the eGFR may not accurately reflect actual GFR. Performed By: #### 2 4321-2 #### [facility] CLIA [id number] [place] [address] [place] Glucose [Mass/Vol] 96 mg/dL Normal 74-99 [facility] Comment on above: Order Comment: Gerry ibrahim Type: BLOOD SPECIMEN Ordering Facility: [facility] Address: [facility] [address] Result Comment: The [place] [employer] (ADA) provides guidance for cutoff values for fasting glucose and random glucose. The ADA defines fasting as no caloric intake for at least 8 hours. Fasting plasma glucose results between 100 to 125 mg/dL indicate increased risk for diabetes (prediabetes). Fasting plasma glucose results greater than or equal to 126 mg/dL meet the criteria for diagnosis of diabetes. In the absence of unequivocal hyperglycemia, results should be confirmed by repeat testing. In a patient with classic symptoms of hyperglycemia or hyperglycemic crisis, random plasma glucose results greater than or equal to 200 mg/dL meet the criteria for diagnosis of diabetes. Reference: Standards of Medical Care in Diabetes 2016, [place] [employer]. Diabetes Care. 2016.39(Suppl 1). Performed By: #### 2 4321-2 #### [facility] CLIA [id number] [place] [address] [place] Potassium [Moles/Vol] 4.2 mmol/L Normal 3.7-5.1 [facility] Comment on above: Order Comment: Gerry ibrahim Type: BLOOD SPECIMEN Ordering Facility: [facility] Address: [address] [id number] Performed By: #### 2 4321-2 #### [facility] CLIA [id number] [place] [address] [place] Sodium [Moles/Vol] 141 mmol/L Normal 136-144 [facility] Comment on above: Order Comment: Speci men Type: BLOOD SPECIMEN Ordering Facility: [facility] Address: [address] [address] Performed By: #### 2 4321-2 #### [facility] CLIA [id number] [address] [place] [address] [place] Urea nitrogen [Mass/Vol] 13 mg/dL Normal 9-24 [facility] Comment on above: Order Comment: Speci men Type: BLOOD SPECIMEN Ordering Facility: [facility] Address: [address] [address] Performed By: #### 2 4321-2 #### [facility] CLIA [id number] [address] [place] [address] [place] Anion gap [Moles/Vol] 11 mmol/L Normal 9-18 [facility] Comment on above: Order Comment: Speci men Type: BLOOD SPECIMEN Ordering Facility: [facility] Address: [address] [address] Performed By: #### 2 4321-2 #### [facility] CLIA [id number] [address] [place] [address] [place] Calcium [Mass/Vol] 9.1 mg/dL Normal 8.5-10.2 [facility] Comment on above: Order Comment: Speci men Type: BLOOD SPECIMEN Ordering Facility: [facility] Address: [address] [place] [address] Performed By: #### 2 4321-2 #### [facility] CLIA [id number] [address] [place] [address] [place] Chloride [Moles/Vol] 104 mmol/L Normal 97-105 [facility] Comment on above: Order Comment: Speci men Type: BLOOD SPECIMEN Ordering Facility: [facility] Address: [address] [address] Performed By: #### 2 4321-2 #### [facility] CLIA [id number] [address] [place] [address] [place] CO2 [Moles/Vol] 24 mmol/L Normal 22-30 [facility] Comment on above: Order Comment: Gerry ibrahim Type: BLOOD SPECIMEN Ordering Facility: [facility] Address: [address] [address] Performed By: #### 2 4321-2 #### [facility] CLIA [id number] [place] [facility] Creatinine [Mass/Vol] 0.71 mg/dL Low 0.73-1.22 [facility] Comment on above: Order Comment: Gerry men Type: BLOOD SPECIMEN Ordering Facility: [facility] Address: [address] [address] Performed By: #### 2 4321-2 #### [facility] CLIA [id number] [place] [address] [place] ESTIMATED GLOMERULAR FILTRATION RATE 112 mL/min/1.73m??? Normal >=60 [facility] Comment on above: Order Comment: Gerry alexandria Type: BLOOD SPECIMEN Ordering Facility: [facility] Address: [address] [place] [address] Result Comment: Tanya mated Glomerular Filtration Rate (eGFR) is calculated using the 2020 CKD-EPI creatinine equation. This equation utilizes serum creatinine, sex, and age as parameters. The creatinine assay has traceable calibration to isotope dilution-mass spectrometry. Refer to KDIGO guidelines for clinical interpretation. In patients with unstable renal function, e.g. those with acute kidney injury, the eGFR may not accurately reflect actual GFR. Performed By: #### 2 4321-2 #### [facility] CLIA [id number] [place] [address] [place] Glucose [Mass/Vol] 132 mg/dL High 74-99 [facility] Comment on above: Order Comment: Luz Elenayvette ibrahim Type: BLOOD SPECIMEN Ordering Facility: [facility] Address: [address] [address] Result Comment: The [place] Diabetes Association (ADA) provides guidance for cutoff values for fasting glucose and random glucose. The ADA defines fasting as no caloric intake for at least 8 hours. Fasting plasma glucose results between 100 to 125 mg/dL indicate increased risk for diabetes (prediabetes). Fasting plasma glucose results greater than or equal to 126 mg/dL meet the criteria for diagnosis of diabetes. In the absence of unequivocal hyperglycemia, results should be confirmed by repeat testing. In a patient with classic symptoms of hyperglycemia or hyperglycemic crisis, random plasma glucose results greater than or equal to 200 mg/dL meet the criteria for diagnosis of diabetes. Reference: Standards of Medical Care in Diabetes 2016, [place] [employer]. Diabetes Care. 2016.39(Suppl 1). Performed By: #### 2 4321-2 #### [facility] CLIA [id number] [address] [place] [address] [place] Potassium [Moles/Vol] 4.1 mmol/L Normal 3.7-5.1 [facility] Comment on above: Order Comment: Gerry ibrahim Type: BLOOD SPECIMEN Ordering Facility: [facility] Address: [address] [place] [address] Performed By: #### 2 4321-2 #### [facility] CLIA [id number] [address] [place] [address] [place] Sodium [Moles/Vol] 139 mmol/L Normal 136-144 [facility] Comment on above: Order Comment: Gerry ibrahim Type: BLOOD SPECIMEN Ordering Facility: [facility] Address: [address] [place] [address] Performed By: #### 2 4321-2 #### [facility] CLIA [id number] [address] [place] [address] [place] Urea nitrogen [Mass/Vol] 13 mg/dL Normal 9-24 [facility] Comment on above: Order Comment: Luz Elenai alexandria Type: BLOOD SPECIMEN Ordering Facility: [facility] Address: [address] [place] [address] Performed By: #### 2 4321-2 #### [facility] CLIA [id number] [address] [place] [address] [place] CBC W Auto Differential pane l (Bld)on 02-21-2023 Basophils (Bld) [#/Vol] 0.04 10*3/uL Normal <0.11 [facility] Comment on above: Order Comment: Luz Elenai alexandria Type: BLOOD SPECIMENOrdering Facility: [facility] Address: [address] [place], [place] [address] Performed By: #### 5 7021-8 ####[facility]ORYCLIA [id number] [address] [place] Basophils/100 WBC (Bld) 0.5 % Normal [facility] Comment on above: Order Comment: Speci men Type: BLOOD SPECIMENOrdering Facility: [facility] Address: [address] [address] Performed By: #### 5 7021-8 ####[facility]ORYCLIA [id number] [place] [address] [place] Differential cell count method Nom (Bld) Auto Normal [facility] Comment on above: Order Comment: Speci men Type: BLOOD SPECIMENOrdering Facility: [facility] Address: [address] [place] [address] Performed By: #### 5 7021-8 ####[facility] [id number] [place] [address] [place] Eosinophils (Bld) [#/Vol] 0.16 10*3/uL Normal <0.46 [facility] Comment on above: Order Comment: Speci men Type: BLOOD SPECIMENOrdering Facility: [facility] Address: [address] [place] [address] Performed By: #### 5 7021-8 ####[facility] [id number] [address] [place] Eosinophils/100 WBC (Bld) 2.2 % Normal [facility] Comment on above: Order Comment: Speci men Type: BLOOD SPECIMENOrdering Facility: [facility] Address: [address] [address] Performed By: #### 5 7021-8 ####[facility]ORYCLIA [id number] [address] [place] Erythrocyte distribution width (RBC) [Ratio] 13.1 % Normal 11.5-15.0 [facility] Comment on above: Order Comment: Speci men Type: BLOOD SPECIMENOrdering Facility: [facility] Address: [address] [place] [address] Performed By: #### 5 7021-8 ####[facility]ORYCLIA [id number] [place] [address] [place] Hematocrit (Bld) [Volume fraction] 32.2 % Low 39.0-51.0 [facility] Comment on above: Order Comment: Speci men Type: BLOOD SPECIMENOrdering Facility: [facility] Address: [address] [place] [address] Performed By: #### 5 7021-8 ####[facility]ORYCLIA [id number] [place] [address] [place] Hemoglobin (Bld) [Mass/Vol] 11.2 g/dL Low 13.0-17.0 [facility] Comment on above: Order Comment: Speci men Type: BLOOD SPECIMENOrdering Facility: [facility] Address: [address] [place] [address] Performed By: #### 5 7021-8 ####[facility]ORYCLIA [id number] [place] [address] [place] Immature granulocytes (Bld) [#/Vol] 0.05 10*3/uL Normal <0.10 [facility] Comment on above: Order Comment: Speci men Type: BLOOD SPECIMENOrdering Facility: [facility] Address: [address] [place] [address] Performed By: #### 5 7021-8 ####[facility] [id number] [place] [address] [place] Immature granulocytes/100 WBC (Bld) 0.7 % Normal [facility] Comment on above: Order Comment: Speci men Type: BLOOD SPECIMENOrdering Facility: [facility] Address: [address] [place] [address] Performed By: #### 5 7021-8 ####[facility]ORYCLIA [id number] [place] [address] [place] Lymphocytes (Bld) [#/Vol] 0.91 10*3/uL Low 1.00-4.00 [facility] Comment on above: Order Comment: Speci men Type: BLOOD SPECIMENOrdering Facility: [facility] Address: [address] [address] Performed By: #### 5 7021-8 ####[facility]ORYCLIA [id number] [address] STATES [facility] Lymphocytes/100 WBC (Bld) 12.3 % Normal [facility] Comment on above: Order Comment: Speci men Type: BLOOD SPECIMENOrdering Facility: [facility] Address: [address] [address] Performed By: #### 5 7021-8 ####[facility]ORYCLIA [id number] [address] [place] MCH (RBC) [Entitic mass] 31.3 pg Normal 26.0-34.0 [facility] Comment on above: Order Comment: Speci men Type: BLOOD SPECIMENOrdering Facility: [facility] Address: [address] [place] [address] Performed By: #### 5 7021-8 ####[facility]ORYCLIA [id number] [place] [address] [place] MCHC (RBC) [Mass/Vol] 34.8 g/dL Normal 30.5-36.0 [facility] Comment on above: Order Comment: Speci men Type: BLOOD SPECIMENOrdering Facility: [facility] Address: [address] [place] [address] Performed By: #### 5 7021-8 ####[facility]ORYCLIA [id number] [address] [place] MCV (RBC) [Entitic vol] 89.9 fL Normal 80.0-100.0 [facility] Comment on above: Order Comment: Speci men Type: BLOOD SPECIMENOrdering Facility: [facility] Address: [address] [place] [address] Performed By: #### 5 7021-8 ####[facility]ORYCLIA [id number] [address] [place] Monocytes (Bld) [#/Vol] 0.59 10*3/uL Normal <0.87 [facility] Comment on above: Order Comment: Speci men Type: BLOOD SPECIMENOrdering Facility: [facility] Address: [address] [address] Performed By: #### 5 7021-8 ####[facility] [id number] [place] [address] [place] Monocytes/100 WBC (Bld) 8.0 % Normal [facility] Comment on above: Order Comment: Speci men Type: BLOOD SPECIMENOrdering Facility: [facility] Address: [address] [address] Performed By: #### 5 7021-8 ####[facility] [id number] [place] [address] [place] Neutrophils (Bld) [#/Vol] 5.67 10*3/uL Normal 1.45-7.50 [facility] Comment on above: Order Comment: Speci men Type: BLOOD SPECIMENOrdering Facility: [facility] Address: [address] [address] Performed By: #### 5 7021-8 ####[facility] [id number] [place] [address] [place] Neutrophils/100 WBC (Bld) 76.3 % Normal [facility] Comment on above: Order Comment: Speci men Type: BLOOD SPECIMENOrdering Facility: [facility] Address: [address] [place] [address] Performed By: #### 5 7021-8 ####[facility] [id number] [place] [address] [place] Nucleated RBC (Bld) [#/Vol] 10*3/uL Normal <0.01 [facility] Comment on above: Order Comment: Speci men Type: BLOOD SPECIMENOrdering Facility: [facility] Address: [address] [place] [address] Performed By: #### 5 7021-8 ####[facility] [id number] [place] [address] [place] Nucleated RBC/100 WBC (Bld) [Ratio] 0.0 /100 WBC Normal [facility] Comment on above: Order Comment: Speci men Type: BLOOD SPECIMENOrdering Facility: [facility] Address: [address] [address] Performed By: #### 5 7021-8 ####[facility]ORATORYCLIA [id number] [place] [address] [place] Platelet mean volume (Bld) [Entitic vol] 10.3 fL Normal 9.0-12.7 [facility] Comment on above: Order Comment: Speci men Type: BLOOD SPECIMENOrdering Facility: [facility] Address: [address] [address] Performed By: #### 5 7021-8 ####[facility]ATORYCLIA [id number] [place] [address] [place] Platelets (Bld) [#/Vol] 167 10*3/uL Normal 150-400 [facility] Comment on above: Order Comment: Speci men Type: BLOOD SPECIMENOrdering Facility: [facility] Address: [address] [address] Performed By: #### 5 7021-8 ####[facility]ORATORYCLIA [id number] [place] [address] [place] RBC (Bld) [#/Vol] 3.58 10*6/uL Low 4.20-6.00 [facility] Comment on above: Order Comment: Speci men Type: BLOOD SPECIMENOrdering Facility: [facility] Address: [address] [address] Performed By: #### 5 7021-8 ####[facility]ORATORYCLIA [id number] [place] [address] [place] WBC (Bld) [#/Vol] 7.42 10*3/uL Normal 3.70-11.00 [facility] Comment on above: Order Comment: Speci men Type: BLOOD SPECIMENOrdering Facility: [facility] Address: [address] [place], [place] [address] Performed By: #### 5 7021-8 ####[facility]ORATORYCLIA [id number] [place] [address] [place] Basophils (Bld) [#/Vol] 10*3/uL Normal <0.11 [facility] Comment on above: Order Comment: Speci men Type: BLOOD SPECIMENOrdering Facility: [facility] Address: [address] [address] Performed By: #### 5 7021-8 ####[facility]ORATORYCLIA [id number] [place] [address] [place] Basophils/100 WBC (Bld) 0.2 % Normal [facility] Comment on above: Order Comment: Speci men Type: BLOOD SPECIMENOrdering Facility: [facility] Address: [address] [address] Performed By: #### 5 7021-8 ####[facility]IA [id number] [place] [address] [place] Differential cell count method Nom (Bld) Auto Normal [facility] Comment on above: Order Comment: Speci men Type: BLOOD SPECIMENOrdering Facility: [facility] Address: [address] [address] Performed By: #### 5 7021-8 ####[facility]CLIA [id number] [place] [address] [place] Eosinophils (Bld) [#/Vol] 10*3/uL Normal <0.46 [facility] Comment on above: Order Comment: Speci men Type: BLOOD SPECIMENOrdering Facility: [facility] Address: [address] [address] Performed By: #### 5 7021-8 ####[facility]ORATORYCLIA [id number] [address] [place] Eosinophils/100 WBC (Bld) 0.1 % Normal [facility] Comment on above: Order Comment: Speci men Type: BLOOD SPECIMENOrdering Facility: [facility] Address: [address] [address] Performed By: #### 5 7021-8 ####[facility]ORATORYCLIA [id number] [address] [place] Erythrocyte distribution width (RBC) [Ratio] 13.1 % Normal 11.5-15.0 [facility] Comment on above: Order Comment: Speci men Type: BLOOD SPECIMENOrdering Facility: [facility] Address: [address] [place] [address] Performed By: #### 5 7021-8 ####[facility]ORATORYCLIA [id number] [address] [place] Hematocrit (Bld) [Volume fraction] 35.6 % Low 39.0-51.0 [facility] Comment on above: Order Comment: Speci men Type: BLOOD SPECIMENOrdering Facility: [facility] Address: [address] [place] [address] Performed By: #### 5 7021-8 ####[facility]ORATORYCLIA [id number] [address] [place] Hemoglobin (Bld) [Mass/Vol] 12.2 g/dL Low 13.0-17.0 [facility] Comment on above: Order Comment: Speci men Type: BLOOD SPECIMENOrdering Facility: [facility] Address: [address] [place] [address] Performed By: #### 5 7021-8 ####[facility]ORYCLIA [id number] [address] [place] Immature granulocytes (Bld) [#/Vol] 0.04 10*3/uL Normal <0.10 [facility] Comment on above: Order Comment: Speci men Type: BLOOD SPECIMENOrdering Facility: [facility] Address: [address] [place] [address] Performed By: #### 5 7021-8 ####[facility] LABORATORYCLIA [id number] [address] [place] Immature granulocytes/100 WBC (Bld) 0.4 % Normal [facility] Comment on above: Order Comment: Speci men Type: BLOOD SPECIMENOrdering Facility: [facility] Address: [address] [address] Performed By: #### 5 7021-8 ####[facility]ORYCLIA [id number] [address] Lymphocytes (Bld) [#/Vol] 0.35 10*3/uL Low 1.00-4.00 [facility] Comment on above: Order Comment: Speci men Type: BLOOD SPECIMENOrdering Facility: [facility] Address: [address] [address] Performed By: #### 5 7021-8 ####[facility]ORYCLIA [id number] [address] Lymphocytes/100 WBC (Bld) 3.7 % Normal [facility] [facility] Comment on above: Order Comment: Speci men Type: BLOOD SPECIMENOrdering Facility: [facility] Address: [address] [address] Performed By: #### 5 7021-8 ####[facility] LABORATORYCLIA [id number] [address] MCH (RBC) [Entitic mass] 31.0 pg Normal 26.0-34.0 [facility] Comment on above: Order Comment: Speci men Type: BLOOD SPECIMENOrdering Facility: [facility] Address: [address] [address] Performed By: #### 5 7021-8 ####CUBA LABORATORYCLIA [id number] [address] MCHC (RBC) [Mass/Vol] 34.3 g/dL Normal 30.5-36.0 [facility] Comment on above: Order Comment: Speci men Type: BLOOD SPECIMENOrdering Facility: [facility] Address: [address] [place] [address] Performed By: #### 5 7021-8 ####CUBA LABORATORYCLIA [id number] [address] MCV (RBC) [Entitic vol] 90.6 fL Normal 80.0-100.0 [facility] Comment on above: Order Comment: Speci men Type: BLOOD SPECIMENOrdering Facility: [facility] Address: [address] [place] [address] Performed By: #### 5 7021-8 ####CUBA LABORATORYCLIA [id number] [place] [address] [place] Monocytes (Bld) [#/Vol] 0.29 10*3/uL Normal <0.87 [facility] Comment on above: Order Comment: Speci men Type: BLOOD SPECIMENOrdering Facility: [facility] Address: [address] [address] Performed By: #### 5 7021-8 ####CUBA LABORATORYCLIA [id number] [address] STATES [facility] Monocytes/100 WBC (Bld) 3.0 % Normal [facility] Comment on above: Order Comment: Speci men Type: BLOOD SPECIMENOrdering Facility: [facility] Address: [address] [address] Performed By: #### 5 7021-8 ####[facility] LABORATORYCLIA [id number] [place] [address] [place] Neutrophils (Bld) [#/Vol] 8.82 10*3/uL High 1.45-7.50 [facility] Comment on above: Order Comment: Speci men Type: BLOOD SPECIMENOrdering Facility: [facility] Address: [address] [address] Performed By: #### 5 7021-8 ####CUBA LABORATORYCLIA [id number] [address] [place] Neutrophils/100 WBC (Bld) 92.6 % Normal [facility] Comment on above: Order Comment: Speci men Type: BLOOD SPECIMENOrdering Facility: [facility] Address: [address] [place] [address] Performed By: #### 5 7021-8 ####[facility] LABORATORYCLIA [id number] [place] [address] [place] Nucleated RBC (Bld) [#/Vol] 10*3/uL Normal <0.01 [facility] Comment on above: Order Comment: Speci men Type: BLOOD SPECIMENOrdering Facility: [facility] Address: [address] [address] Performed By: #### 5 7021-8 ####[facility] LABORATORYCLIA [id number] [place] [address] [place] Nucleated RBC/100 WBC (Bld) [Ratio] 0.0 /100 WBC Normal [facility] Comment on above: Order Comment: Speci men Type: BLOOD SPECIMENOrdering Facility: [facility] Address: [address] [address] Performed By: #### 5 7021-8 ####[facility] LABORATORYCLIA [id number] [place] [address] [place] Platelet mean volume (Bld) [Entitic vol] 9.7 fL Normal 9.0-12.7 [facility] Comment on above: Order Comment: Speci men Type: BLOOD SPECIMENOrdering Facility: [facility] Address: [address] [address] Performed By: #### 5 7021-8 ####[facility] LABORATORYCLIA [id number] [place] [address] [place] Platelets (Bld) [#/Vol] 208 10*3/uL Normal 150-400 [facility] Comment on above: Order Comment: Speci men Type: BLOOD SPECIMENOrdering Facility: [facility] Address: [address] [address] Performed By: #### 5 7021-8 ####[facility] LABORATORYCLIA [id number] [place] [address] [place] RBC (Bld) [#/Vol] 3.93 10*6/uL Low 4.20-6.00 [facility] Comment on above: Order Comment: Speci men Type: BLOOD SPECIMENOrdering Facility: [facility] Address: [address] [address] Performed By: #### 5 7021-8 ####CUBA LABORATORYCLIA [id number] [place] [id number] [place] WBC (Bld) [#/Vol] 9.53 10*3/uL Normal 3.70-11.00 [facility] Comment on above: Order Comment: Speci men Type: BLOOD SPECIMENOrdering Facility: [facility] Address: [address] [id number] Performed By: #### 5 7021-8 ####[facility] LABORATORYCLIA [id number] [address] CNPNon 02-21-2023 CNPN Telephone ([place]) -------- HOANG WHITE ([id number]) 1975 M Date Time Provider Department 02/21/23 OSCAR GONZALEZ During your visit today, we recorded the following information about you: Ava Lewis 02/21/2023 1:43 PM Signed Disability paperwork completed and placed in folder to be signed. Ava Lewis 02/22/2023 9:56 AM Signed Paperwork faxed to Karthikeyan @ [phone]. Faxed confirmed. Ava Lewis Allergies As of Date: 02/21/2023 (No Known Allergies) Date Reviewed: 02/21/2023 Reviewed by: Krystina Tanner RN - Fully Assessed Reason for Visit: Disability Jayant [1200] Prescriptions as of 02/22/2023 - buPROPion XL (WELLBUTRIN XL) 300 mg 24 hr tablet TAKE 1 TABLET BY MOUTH DAILY (TAKE 150mg DAILY FOR 5 DAYS then INCREASE to 300 mg DAILY) - naproxen sodium 220 mg cap Take by mouth as needed. - ibuprofen (MOTRIN) 200 mg tablet Take 200 mg by mouth every 6 hours as needed for pain. - buprenorphine-naloxone (SUBOXONE) 8-2 mg film DISSOLVE 2 (TWO) films UNDER THE TONGUE DAILY - loperamide (IMODIUM) 2 mg cap(s) Take 1 capsule by mouth twice daily before meals (0600/1600). - iv contrast (will be provided with radiology test) CT ABD/PEL -Inject, intravenously, once for 1 dose.No IV access, insert saline lock prior to the beginning of sedation, infusion, injection of imaging exam. Discontinue saline lock post exam. If Pt. has a central line or IVAD, may access for administration according to line specific nursing protocol. Once exam is complete flush line and de-access according to line specific nursing protocol in the CT contrast administration guidelines link. - enteric contrast (will be provided with radiology test) For CT ABD/PEL W IVCON Routine order Administer, As Directed One Time Only, via Oral, Rectal, both Oral and Rectal, Enteric Tube, Stoma or Indwelling Catheter, Enteric Contrast as designated per enteric contrast guidelines - prochlorperazine (COMPAZINE) 10 mg tablet Take 1 tablet by mouth every 6 hours as needed. - nicotine (NICODERM) 21 mg/24 hr Apply 1 Patch as directed every 24 hours. - ondansetron (ZOFRAN) 8 mg tablet Take 1 tablet by mouth every 8 hours as needed for nausea/vomiting. - loratadine (CLARITIN) 10 mg tablet Take 10 mg by mouth once daily. - atorvastatin (LIPITOR) 10 mg tablet Take 10 mg by mouth once daily. - acetaminophen (TYLENOL) 500 mg tablet Take 2 tablets by mouth every 6 hours. - lactobacillus rhamnosus (CULTURELLE) 10 billion cell capsule Take 1 capsule by mouth once daily. - levothyroxine (SYNTHROID) 125 mcg tablet Take 125 mcg by mouth once daily. Facility-Administered Medications as of 02/22/2023 - lactobacillus rhamnosus 10 billion cell (CULTURELLE) capsule - oxyCODONE IR 5 mg tab(s) (ROXICODONE) - enoxaparin 40 mg injection (LOVENOX) - ondansetron (PF) 4 mg injection (ZOFRAN) - acetaminophen 1,000 mg tab(s) (TYLENOL) - gabapentin 300 mg cap(s) (NEURONTIN) - keTORolac 15 mg injection (Toradol) - ibuprofen 400 mg tab(s) (MOTRIN) - buPROPion XL 300 mg tab(s) (WELLBUTRIN XL) - nicotine 21 mg/24 hr 1 Patch (NICODERM) - levothyroxine (SYNTHROID) tab(s) 125 mcg - nicotine -- REMOVE patch - nicotine - verify patch - cyclobenzaprine 5 mg tab(s) (FLEXERIL) - melatonin 3 mg tab(s) Problem List As Of Date 02/21/2023 Noted Resolved History of endocarditis [Z86.79] 01/17/2022 Severe tricuspid regurgitation [I07.1] 01/17/2022 Abnormality of right ventricle of heart [Q20.8] 01/17/2022 Red blood cell antibody positive [R76.8] 02/09/2022 History of intravenous drug abuse (HCC) [F19.11]02/16/2022 Former smoker [Z87.891] 02/16/2022 Rectal mass [K62.89] 02/16/2022 Rectal cancer (HCC) [C20] 02/21/2022 Severe protein-calorie malnutrition (HCC) [E43] 02/22/2022 Malaise and fatigue [R53.81, R53.83] 07/15/2022 Hypothyroidism unspecified [E03.9] 12/02/2021 DVT (deep venous thrombosis) (HCC) [I82.409] 10/28/2022 Attention to ileostomy (HCC) [Z43.2] 02/20/2023 Encounter Status:Closed by AVA LEWIS on 02/22/23 Normal [facility] NURSING PROGon 02-21-2023 NURSING PROG HNO ID: [id number] Author: Lexi Glass, SHEMAR Service: ? Author Type: Registered Nurse Type: Nursing Progress Note Filed: 02/21/2023 10:27 AM Note Text: Pt AANDOx3. Up with standby assist. SB-SR on tele. Lungs clear on RA. Abdomen soft, tender. Old ostomy site covered with island, small amount of serosang shadowing. Diet advanced to GI soft this AM, pt tolerated, denies nausea. Voiding freely. No other needs voiced, will continue to monitor. [facility] PT EDon 02-21-2023 PT ED HNO ID: [id number] Author: Millie Lam RD Service: NST-Nutrition Support Team Author Type: Registered Dietitian Type: Patient Education Filed: 02/21/2023 12:10 PM Note Text: NUTRITION THERAPY PATIENT EDUCATION SERVICE DATE: 02/21/2023 SERVICE TIME: 12:09 PM TOPIC: Diet: GI Soft LEARNING ASSESSMENT Individuals Assessed: Patient Preferred Learning Method: Individual Instruction and Verbal Instruction Barriers to Learning: None Evident LEARNING RESPONSE Instruction Provided to: Patient Patient / Family Response: Performs Independently and Verbalizes Understanding Method of Instruction: Written instruction - handouts Verbal instruction Material(s) Provided to Patient: G/L for GI Soft Diet Follow-Up Plan: Follow-up with Primary Care Referral (Recommendation): Primary Care Provider MNT Billing: $ Initial Assessment: 1-15 minutes SIGNATURE: Millie Lam RD PATIENT NAME: Hoang White DATE: February 21, 2023 TIME: 12:07 PM PAGER: [facility] ANES POSTPROC EVALon 023 ANES POSTPROC EVAL HNO ID: [id number] Author: Pedro Luis Rome DO Service: Anesthesiology Author Type: Anesthesiologist Type: Anesthesia Postprocedure Evaluation Filed: 02/20/2023 9:15 PM Note Text: POST ANESTHESIA EVALUATION NOTE : 1975 Procedure Summary Date: 02/20/23 Room / Location: [place] [address] / OR Anesthesia Start: 1718 Anesthesia Stop: 1847 Procedure: CLOSURE ILEOSTOMY (Abdomen) Diagnosis: Attention to ileostomy (HCC) (Attention to ileostomy (HCC) [Z43.2]) Surgeons: Ana Enriquez MD Responsible Provider: Pedro Luis Rome DO Anesthesia Type: general ASA Status: 3 Anesthesia Type: general Airway Type: ETT Last Vitals Vitals Value Taken Time BP 146/78 02/20/232051 Temp 36.8 ?C (98.2 ?F) 02/20/232051 HR SpO2 47 02/20/231845 Resp 16 02/20/232051 SpO2 97 % 02/20/232051 Post Anesthesia Patient Status Patient Evaluation: PACU. PACU/ICU Patient Condition: stable. Anticipated Disposition: inpatient floor planned admission. Neurological Status: aware and responsive. Pulmonary Status: breathing comfortably on supplemental oxygen Airway Control: returned to baseline unsupported. Cardiovascular Status: stable. Pain Management: clinically adequate - multimodal analgesia pain management approach Postoperative Hydration: acceptable. Intraoperative Events: no significant anesthesia events Post Operative Nausea/Vomiting Status: no significant post operative nausea or vomiting Recommendation: continue current plan of care. Anesthesia Observations No Documentation SIGNATURE: Pedro Luis Rome DO PATIENT NAME: Hoang White DATE: February 20, 2023 TIME: 9:14 PM CSN: [id number] [facility] ANES PRE-OPon 02-20-2023 ANES PRE-OP HNO ID: [id number] Author: Pedro Luis Rome DO Service: Anesthesiology Author Type: Anesthesiologist Type: Anesthesia Preprocedure Evaluation Filed: 02/20/2023 5:05 PM Note Text: ANESTHESIOLOGY DAY OF SURGERY NOTE : 1975 Procedure Information Date/Time: 02/20/23 174 Procedure: CLOSURE ILEOSTOMY (Abdomen) Location: OR07 / OR Surgeons: Ana Enriquez MD Estimated body mass index is 20.53 kg/m? as calculated from the following: Height as of 02/09/23: 172.7 cm (5' 8 ). Weight as of 02/09/23: 61.2 kg (135 lb). Most recent hematocrit and potassium results: Hematocrit 40.3 02/09/2023 Potassium 4.2 02/09/2023 Relevant Problems CARDIO (+) DVT (deep venous thrombosis) (HCC) ENDO (+) Hypothyroidism unspecified NEURO-PSYCH (+) History of endocarditis (+) History of intravenous drug abuse (HCC) I - PHYSICAL EVALUATION AIRWAY Patient intubated: No. Tracheostomy tube not present Mallampati: II. TM distance: >3 FB. Neck ROM: full ROM without neurological symptoms. Mouth opening: adequate. Short neck: no. Thick neck: no DENTAL Dental findings: missing tooth/teeth. Dentures, upper: complete. Additional exam findings: no II - ANESTHESIA PLAN ASA Score: 3 Anesthetic Plan: general Airway type: ETT The patient is not a current smoker. NPO Status: adequate Beta Linda Monitoring Plan Monitoring plan: standard ASA. Post Procedure Analgesic Plan Postoperative analgesic plan: multimodal analgesia, parenteral or oral opioids and peripheral nerve block. Informed Consent Anesthetic risks, benefits, alternatives, personnel and consent discussed: yes. Patient / Responsible Libertarian agrees to proceed: yes Patient / Surrogate agrees to blood products: Yes Significant changes in the patient condition since the History and Physical, not otherwise documented in primary service progress note: no. Potential Anesthesia issues that may suggest increased risk of complications or contraindication to planned procedure:. Does not want suboxone while in the hospital. States that he takes it every once in a while and last dose was yesterday Vitals Value Taken Time BP 130/86 02/20/23 [facility] Pulse 59 02/20/23 1640 Resp 16 02/20/23 [facility] Temp 36.2 ?C (97.2 ?F) 02/20/23 1640 SpO2 100 % 02/20/23 1640 Facility-Administered Medications as of 02/20/2023 Medication Dose Route Frequency - lidocaine (PF) 10 mg/mL (1 %) 1-2 mg injection (XYLOCAINE) 0.1-0.2 mL INTRADERMAL PRN - lactated ringers iv infusion 5-30 mL/hr INTRAVENOUS CONTINUOUS - NaCl 0.9% iv flush bag 20 mL INTRAVENOUS PRN - cefTRIAXone 2 g in D5W 100 mL Vial-Bag (ROCEPHIN) 2 g INTRAVENOUS Pre-Op Once - metroNIDAZOLE iv piggyback 500 mg in NaCl (iso-osmotic) 100 mL (FLAGYL) 500 mg INTRAVENOUS Pre-Op Once - [COMPLETED] alvimopan 12 mg cap(s) (ENTEREG) 12 mg ORAL Pre-Op Once - heparin 5,000 Units injection 5,000 Units SUBCUTANEOUS ONCE - [COMPLETED] gabapentin 300 mg cap(s) (NEURONTIN) 300 mg ORAL Pre-Op Once - [COMPLETED] acetaminophen 1,000 mg tab(s) (TYLENOL) 1,000 mg ORAL Pre-Op Once Outpatient Medications as of 02/20/2023 Medication Sig - buprenorphine-naloxone (SUBOXONE) 8-2 mg film DISSOLVE 2 (TWO) films UNDER THE TONGUE DAILY - atorvastatin (LIPITOR) 10 mg tablet Take 10 mg by mouth once daily. - levothyroxine (SYNTHROID) 125 mcg tablet Take 125 mcg by mouth once daily. - loperamide (IMODIUM) 2 mg cap(s) Take 1 capsule by mouth twice daily before meals (0600/1600). - iv contrast (will be provided with radiology test) CT ABD/PEL -Inject, intravenously, once for 1 dose.No IV access, insert saline lock prior to the beginning of sedation, infusion, injection of imaging exam. Discontinue saline lock post exam. If Pt. has a central line or IVAD, may access for administration according to line specific nursing protocol. Once exam is complete flush line and de-access according to line specific nursing protocol in the CT contrast administration guidelines link. - enteric contrast (will be provided with radiology test) For CT ABD/PEL W IVCON Routine order Administer, As Directed One Time Only, via Oral, Rectal, both Oral and Rectal, Enteric Tube, Stoma or Indwelling Catheter, Enteric Contrast as designated per enteric contrast guidelines - prochlorperazine (COMPAZINE) 10 mg tablet Take 1 tablet by mouth every 6 hours as needed. - nicotine (NICODERM) 21 mg/24 hr Apply 1 Patch as directed every 24 hours. - ondansetron (ZOFRAN) 8 mg tablet Take 1 tablet by mouth every 8 hours as needed for nausea/vomiting. - loratadine (CLARITIN) 10 mg tablet Take 10 mg by mouth once daily. - acetaminophen (TYLENOL) 500 mg tablet Take 2 tablets by mouth every 6 hours. I have interviewed and examined the patient. I have reviewed the medical record and/or the pre-anesthesia evaluation, pertinent labs, and test results. This contains updated information obtained within 48 hours of Surgery/Procedu (more content not included)... [facility] BRIEF OP NOTon 02-20-2023 BRIEF OP NOT HNO ID: [id number] Author: Rachael Kirkpatrick MD Service: Colorectal Author Type: Fellow Type: Brief Op Note Filed: 02/20/2023 6:38 PM Note Text: BRIEF OPERATIVE NOTE - COLORECTAL SURGERY Log ID: [id number] Surgery/Procedure Date: 02/20/2023 Incision/Procedure Start Time: 5:53 PM Incision Close/Procedure End Time: 6:32 PM Surgeon(s) and Scheduler Maintenance(s): Surgeon(s) and Role: * Ana Enriquez MD - Primary * Rachael Kirkpatrick MD - Fellow No Additional Staff Procedures and Anesthesia: Procedure(s) and Anesthesia Type: * CLOSURE ILEOSTOMY - General Stoma Type: N/A Findings: Reversal of loop ileostomy Circumferential skin incision just beyond the mucocutaneous junction. Dissection through the layers and both limbs fully freed below the fascia. Stapled side to side anastomosis with the BENJI 80. Mesentery controlled with clips and ties. Further fire of the GIA80 to the enterotomies. Good lumen. Crotch stitch x 1. Staple line under-run with PDS and 2 figure of 8 vicryl used for hemostasis. Fascia closed with interrupted figure of 8 PDS Pursestring vicryl to skin Estimated Blood Loss: 20mls Specimens: None Diagnosis Code(s): Pre-Op Diagnosis Codes: * Attention to ileostomy (HCC) [Z43.2] Postop Diagnosis: Reversal of loop ileostomy Drains: None Wound Classification: Class 3, operative wound contaminated with stoma closure Complications: None SIGNATURE: Rachael Kirkpatrick MD PATIENT NAME: Hoang White DATE: February 20, 2023 TIME: 6:36 PM [facility] NURSING PROGon 02-20-2023 NURSING PROG HNO ID: [id number] Author: Kristi Henry RN Service: ? Author Type: Registered Nurse Type: Nursing Progress Note Filed: 02/21/2023 2:40 AM Note Text: Transfer Note: Patient transferred into room/unit 306 in stable condition. Actions taken: No futher actions taken at this time. Will continue to monitor and check with patient. [facility] NURSING PROG HNO ID: [id number] Author: Phyllis Claros RN Service: Nursing Author Type: Registered Nurse Type: Nursing Progress Note Filed: 02/20/2023 4:29 PM Note Text: PATIENT EDUCATION TOPIC: PROCEDURE / SURGERY: Pre-op Teaching: Surgery PATIENT NAME: Hoang White PATIENT LOCATION: [facility] OR POOL/[facility] OR POOL READINESS TO LEARN COGNITIVE ABILITY: Alert and oriented MOTIVATION TO LEARN: Eager FAMILY SUPPORT: Unable to assess - Family not present INSTRUCTION PROVIDED TO: Patient PATIENT LEARNS BEST BY: Individual Instruction Written Instruction - Hand-outs Verbal Instruction FACTORS AFFECTING LEARNING: None PHYSICAL LIMITATIONS AFFECTING LEARNING: None LEARNING RESPONSE DIAGNOSIS: ADULT: Well Adult PATIENT/FAMILY RESPONSE: Information received as demonstrated by interest and questions METHOD OF INSTRUCTION: Individual instruction Written instruction - handouts Verbal instruction FOLLOW-UP PLAN: Patient instructed to call with any further issues INSTRUCTIONAL AIDS USED: NA SUPPLEMENTAL MATERIAL PROVIDED TO PATIENT: None REFERRAL (RECOMMENDATION): None Electronically Signed By: Phyllis Claros [facility] OPERATIVE NOon 02-20-2023 OPERATIVE NO HNO ID: [id number] Author: Ana Enriquez MD Service: Colorectal Author Type: Physician Type: Operative Report Filed: 02/20/2023 6:46 PM Note Text: COLON AND RECTAL SURGERY OPERATIVE REPORT PATIENT NAME: Hoang White ADMISSION DATE: 02/20/2023 LOG ID: [id number] SURGERY/PROCEDURE DATE: 02/20/2023 INCISION/PROCEDURE START TIME: 5:53 PM INCISION CLOSE/PROCEDURE END TIME: 6:32 PM AGE: [age] year old SEX: male 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 Minimal intra-abdominal adhesions. Ileostomy closure performed through stoma site. DESCRIPTION OF PROCEDURE: The patient was brought to the operating room and placed under general anesthesia in supine position. The patient received appropriate preop antibiotics and DVT prophylaxis. A surgical time-out was performed. A FRANCIS was performed with patent, non-stenosed low colorectal anastomosis. The abdomen was prepped and draped in normal sterile fashion. A circumferential incision was made around the ostomy at the mucocutaneous junction. We made our way around circumferentially to divide all adhesions and connective tissue to the ostomy and associated mesentery. This was taken down to the fascia where the ostomy was freed from the fascia as well. At this point the small intestine easily came outside the peritoneal cavity. The small intestine both proximal and distal to the ileostomy was divided with electrocautery. The mesentery was divided with Phyllis clamps and 0-Vicryl ties. The ileostomy was passed off the field. A [id number] functional end-to-end anastomosis was made with a BENJI-80 blue load. The common staple line did not have any evidence of bleeding. The common enterotomy was closed with a BENJI-80 blue load. A 3-0 Vicryl crotch stitch was placed. The common enterotomy staple line was oversewn with a 3-0 PDS suture. The mesenteric defect was too small to close with 3-0 Vicryl suture. The anastomosis was inspected and seen to be healthy, widely patent, and intact. The anastomosis was returned to the abdomen and hemostasis was assured. The fascia was closed with figure of eight #1 PDS suture. The wound was irrigated. The ostomy site skin opening was narrowed with a pursestring 2-0 Vicryl suture. Gauze packing was placed in the skin opening and a dressing was applied. ESTIMATED BLOOD LOSS: 20 mL SPECIMENS: None DRAINS: None COMPLICATIONS: None INTRAOPERATIVE FLUIDS: See anesthesia record. SPONGE/INSTRUMENT/NEEDLE COUNTS: Correct x2. PRESENCE STATEMENT: I was present for the entire procedure as I have dictated above. Ana Enriquez M.D. Department of Surgery Division of Colon and Rectal Surgery [facility] 02-17-2023 [facility] Telephone ([facility]) -------- HOANG WHITE ([id number]) 1975 M Date Time Provider Department 02/17/23 ANA ENRIQUEZ [facility] During your visit today, we recorded the following information about you: Nikki Rivera 02/17/2023 11:48 AM Signed Pt called about [facility] paperwork from 01/09/23 to 02/17/23. I left a message with his spouse that he will need to contact his primary so they can fill out the [facility] paperwork. He was given [place] paperwork for his surgery in October. Allergies As of Date: 02/17/2023 (No Known Allergies) Date Reviewed: 02/09/2023 Reviewed by: Ruba Awad APRN.[facility] - Fully Assessed Reason for Visit: Patient Question [1477] Prescriptions as of 02/17/2023 - buPROPion XL (WELLBUTRIN XL) 300 mg 24 hr tablet TAKE 1 TABLET BY MOUTH DAILY (TAKE 150mg DAILY FOR 5 DAYS then INCREASE to 300 mg DAILY) - naproxen sodium (ALEVE) 220 mg cap Take by mouth as needed. - ibuprofen (MOTRIN) 200 mg tablet Take 200 mg by mouth every 6 hours as needed for pain. - buprenorphine-naloxone (SUBOXONE) 8-2 mg film DISSOLVE 2 (TWO) films UNDER THE TONGUE DAILY - loperamide (IMODIUM) 2 mg cap(s) Take 1 capsule by mouth twice daily before meals (0600/1600). - iv contrast (will be provided with radiology test) CT ABD/PEL -Inject, intravenously, once for 1 dose.No IV access, insert saline lock prior to the beginning of sedation, infusion, injection of imaging exam. Discontinue saline lock post exam. If Pt. has a central line or IVAD, may access for administration according to line specific nursing protocol. Once exam is complete flush line and de-access according to line specific nursing protocol in the CT contrast administration guidelines link. - enteric contrast (will be provided with radiology test) For CT ABD/PEL W IVCON Routine order Administer, As Directed One Time Only, via Oral, Rectal, both Oral and Rectal, Enteric Tube, Stoma or Indwelling Catheter, Enteric Contrast as designated per enteric contrast guidelines - prochlorperazine (COMPAZINE) 10 mg tablet Take 1 tablet by mouth every 6 hours as needed. - nicotine (NICODERM) 21 mg/24 hr Apply 1 Patch as directed every 24 hours. - ondansetron (ZOFRAN) 8 mg tablet Take 1 tablet by mouth every 8 hours as needed for nausea/vomiting. - loratadine (CLARITIN) 10 mg tablet Take 10 mg by mouth once daily. - atorvastatin (LIPITOR) 10 mg tablet Take 10 mg by mouth once daily. - acetaminophen (TYLENOL) 500 mg tablet Take 2 tablets by mouth every 6 hours. - lactobacillus rhamnosus (CULTURELLE) 10 billion cell capsule Take 1 capsule by mouth once daily. - levothyroxine (SYNTHROID) 125 mcg tablet Take 125 mcg by mouth once daily. Facility-Administered Medications as of 02/17/2023 - perflutren lipid microspheres 1.3 mL in NaCl (PF) 0.9% 10 mL injection (DEFINITY) - sodium chloride 0.9 % (flush) 10 mL (BD POSIFLUSH) Problem List As Of Date 02/17/2023 Noted Resolved History of endocarditis [Z86.79] 01/17/2022 Severe tricuspid regurgitation [I07.1] 01/17/2022 Abnormality of right ventricle of heart [Q20.8] 01/17/2022 Red blood cell antibody positive [R76.8] 02/09/2022 History of intravenous drug abuse (HCC) [F19.11]02/16/2022 Former smoker [Z87.891] 02/16/2022 Rectal mass [K62.89] 02/16/2022 Rectal cancer (HCC) [C20] 02/21/2022 Severe protein-calorie malnutrition (HCC) [E43] 02/22/2022 Malaise and fatigue [R53.81, R53.83] 07/15/2022 Hypothyroidism unspecified [E03.9] 12/02/2021 DVT (deep venous thrombosis) (HCC) [I82.409] 10/28/2022 Encounter Status:Closed by NIKKI RIVERA on 02/17/23 [facility] 02-16-2023 CNPN Telephone ([facility]) -------- HOANG WHITE ([id number]) 1975 M Date Time Provider Department 02/16/23 ANA ENRIQUEZ [facility] During your visit today, we recorded the following information about you: Kalen Leos MA 02/16/2023 3:42 PM Signed Employer Forms for Patient/Caregiver Time Off of Work FMLA completed, signed by provider, and returned to below contact. Completed copy scanned in [facility] Date of Surgery: 02/20/23 Estimated RTW date: 04/17/23 Employer: sent to Guardian Disability Department Date sent to employer: 02/16/23 Received fax confirmation: YES Kalen Leos MA Allergies As of Date: 02/16/2023 (No Known Allergies) Date Reviewed: 02/09/2023 Reviewed by: Ruba Awad APRN.FILE CONVERSION OPERATOR - Fully Assessed Reason for Visit: [facility] Paperwork [1781] Prescriptions as of 02/16/2023 - naproxen sodium (ALEVE) 220 mg cap Take by mouth as needed. - ibuprofen (MOTRIN) 200 mg tablet Take 200 mg by mouth every 6 hours as needed for pain. - buprenorphine-naloxone (SUBOXONE) 8-2 mg film DISSOLVE 2 (TWO) films UNDER THE TONGUE DAILY - loperamide (IMODIUM) 2 mg cap(s) Take 1 capsule by mouth twice daily before meals (0600/1600). - iv contrast (will be provided with radiology test) CT ABD/PEL -Inject, intravenously, once for 1 dose.No IV access, insert saline lock prior to the beginning of sedation, infusion, injection of imaging exam. Discontinue saline lock post exam. If Pt. has a central line or IVAD, may access for administration according to line specific nursing protocol. Once exam is complete flush line and de-access according to line specific nursing protocol in the CT contrast administration guidelines link. - enteric contrast (will be provided with radiology test) For CT ABD/PEL W IVCON Routine order Administer, As Directed One Time Only, via Oral, Rectal, both Oral and Rectal, Enteric Tube, Stoma or Indwelling Catheter, Enteric Contrast as designated per enteric contrast guidelines - buPROPion XL (WELLBUTRIN XL) 300 mg 24 hr tablet Take 1 tablet by mouth once daily. Take wellbutrin 150 mg tablet daily for 5 days before starting 300 mg dose daily - prochlorperazine (COMPAZINE) 10 mg tablet Take 1 tablet by mouth every 6 hours as needed. - nicotine (NICODERM) 21 mg/24 hr Apply 1 Patch as directed every 24 hours. - ondansetron (ZOFRAN) 8 mg tablet Take 1 tablet by mouth every 8 hours as needed for nausea/vomiting. - loratadine (CLARITIN) 10 mg tablet Take 10 mg by mouth once daily. - atorvastatin (LIPITOR) 10 mg tablet Take 10 mg by mouth once daily. - acetaminophen (TYLENOL) 500 mg tablet Take 2 tablets by mouth every 6 hours. - lactobacillus rhamnosus (CULTURELLE) 10 billion cell capsule Take 1 capsule by mouth once daily. - levothyroxine (SYNTHROID) 125 mcg tablet Take 125 mcg by mouth once daily. Facility-Administered Medications as of 02/16/2023 - perflutren lipid microspheres 1.3 mL in NaCl (PF) 0.9% 10 mL injection (DEFINITY) - sodium chloride 0.9 % (flush) 10 mL (BD POSIFLUSH) Problem List As Of Date 02/16/2023 Noted Resolved History of endocarditis [Z86.79] 01/17/2022 Severe tricuspid regurgitation [I07.1] 01/17/2022 Abnormality of right ventricle of heart [Q20.8] 01/17/2022 Red blood cell antibody positive [R76.8] 02/09/2022 History of intravenous drug abuse (HCC) [F19.11]02/16/2022 Former smoker [Z87.891] 02/16/2022 Rectal mass [K62.89] 02/16/2022 Rectal cancer (HCC) [C20] 02/21/2022 Severe protein-calorie malnutrition (HCC) [E43] 02/22/2022 Malaise and fatigue [R53.81, R53.83] 07/15/2022 Hypothyroidism unspecified [E03.9] 12/02/2021 DVT (deep venous thrombosis) (HCC) [I82.409] 10/28/2022 Encounter Status:Closed by KALEN LEOS on 02/16/23 Normal [facility] ANTIBODY ID PATIENTon 2022 ANTIBODY IDENTIFIED Detected Normal [facility] Comment on above: Order Comment: Speci men Type: BLOOD SPECIMENOrdering Facility: [facility] Address: [address] [place] [address] Performed By: #### T SCR30, %ALESIA ####CC MAIN BLOOD BANKCLIA [id number] [address]#### [id number] ####[facility] BLOOD BANKCLIA [id number] [address] BLOOD BANK COMMENTon 023 BLOOD BANK COMMENT See Comment Normal [facility] Comment on above: Order Comment: Speci men Type: BLOOD SPECIMENOrdering Facility: [facility] Address: [address] [place] [address] Result Comment: See physician's report under antibody interpretation 02/04/2022 Performed By: #### T SCR30, %ALESIA ####[facility] BLOOD BANKCLIA [id number] [place] [address] [place]#### [id number] ####[facility] BLOOD BANKCLIA [id number] [place] [address] [place] CBC W Auto Differential pane l (Bld)on 02-09-2023 Basophils (Bld) [#/Vol] 0.03 10*3/uL Normal <0.11 [facility] Comment on above: Order Comment: Speci men Type: BLOOD SPECIMENOrdering Facility: [facility] Address: [address] [place] [address] Performed By: #### 5 7021-8 ####[facility] LABCLIA [id number] [address] OF [place] Basophils/100 WBC (Bld) 0.5 % Normal [facility] Comment on above: Order Comment: Speci men Type: BLOOD SPECIMENOrdering Facility: [facility] Address: [address] [place] [address] Performed By: #### 5 7021-8 ####[facility] LABCLIA [id number] [address] [place] Differential cell count method Nom (Bld) Auto Normal [facility] Comment on above: Order Comment: Speci men Type: BLOOD SPECIMENOrdering Facility: [facility] Address: [address] [place] [address] Performed By: #### 5 7021-8 ####[facility] LABCLIA [id number] [address] [place] Eosinophils (Bld) [#/Vol] 0.06 10*3/uL Normal <0.46 [facility] Comment on above: Order Comment: Speci men Type: BLOOD SPECIMENOrdering Facility: [facility] Address: [address] [place] [address] Performed By: #### 5 7021-8 ####[facility] LABCLIA [id number] [place] [address] [place] Eosinophils/100 WBC (Bld) 0.9 % Normal [facility] Comment on above: Order Comment: Speci men Type: BLOOD SPECIMENOrdering Facility: [facility] Address: [address] [place] [address] Performed By: #### 5 7021-8 ####[facility] LABIA [id number] [address] [place] Erythrocyte distribution width (RBC) [Ratio] 12.8 % Normal 11.5-15.0 [facility] Comment on above: Order Comment: Speci men Type: BLOOD SPECIMENOrdering Facility: [facility] Address: [address] [place], [place] [address] Performed By: #### 5 7021-8 ####[facility] LABCLIA [id number] [address] [place] Hematocrit (Bld) [Volume fraction] 40.3 % Normal 39.0-51.0 [facility] Comment on above: Order Comment: Speci men Type: BLOOD SPECIMENOrdering Facility: [facility] Address: [address] [place], [place] [address] Performed By: #### 5 7021-8 ####[facility] LABCLIA [id number] [place] [address] [place] Hemoglobin (Bld) [Mass/Vol] 13.3 g/dL Normal 13.0-17.0 [facility] Comment on above: Order Comment: Speci men Type: BLOOD SPECIMENOrdering Facility: [facility] Address: [address] Performed By: #### 5 7021-8 ####[facility] LABCLIA [id number] [place] [address] [place] Immature granulocytes (Bld) [#/Vol] 0.03 10*3/uL Normal <0.10 [facility] Comment on above: Order Comment: Speci men Type: BLOOD SPECIMENOrdering Facility: [facility] Address: [address] Performed By: #### 5 7021-8 ####[facility] LABCLIA [id number] [place] [address] [place] Immature granulocytes/100 WBC (Bld) 0.5 % Normal [facility] Comment on above: Order Comment: Speci men Type: BLOOD SPECIMENOrdering Facility: [facility] Address: [address] Performed By: #### 5 7021-8 ####[facility] LABCLIA [id number] [place] [address] [place] Lymphocytes (Bld) [#/Vol] 0.73 10*3/uL Low 1.00-4.00 [facility] Comment on above: Order Comment: Speci men Type: BLOOD SPECIMENOrdering Facility: [facility] Address: [address] Performed By: #### 5 7021-8 ####[facility] LABCLIA [id number] [place] [address] [place] Lymphocytes/100 WBC (Bld) 11.0 % Normal [facility] Comment on above: Order Comment: Speci men Type: BLOOD SPECIMENOrdering Facility: [facility] Address: [address] [place], [place] [address] Performed By: #### 5 7021-8 ####[facility] LABCLIA [id number] [address] [place] MCH (RBC) [Entitic mass] 30.9 pg Normal 26.0-34.0 [facility] Comment on above: Order Comment: Speci men Type: BLOOD SPECIMENOrdering Facility: [facility] Address: [address] [place] [address] Performed By: #### 5 7021-8 ####[facility] LABW[facility] [id number] [address] STATES [facility] MCHC (RBC) [Mass/Vol] 33.0 g/dL Normal 30.5-36.0 [facility] Comment on above: Order Comment: Speci men Type: BLOOD SPECIMENOrdering Facility: [facility] Address: [address] [place] [address] Performed By: #### 5 7021-8 ####[facility] [id number] [address] [place] MCV (RBC) [Entitic vol] 93.5 fL Normal 80.0-100.0 [facility] Comment on above: Order Comment: Speci men Type: BLOOD SPECIMENOrdering Facility: [facility] Address: [address] [place] [address] Performed By: #### 5 7021-8 ####[facility] [id number] [place] [address] [place] Monocytes (Bld) [#/Vol] 0.39 10*3/uL Normal <0.87 [facility] Comment on above: Order Comment: Speci men Type: BLOOD SPECIMENOrdering Facility: [facility] Address: [address] [place] [address] Performed By: #### 5 7021-8 ####[facility] [id number] [address] [place] Monocytes/100 WBC (Bld) 5.9 % Normal [facility] Comment on above: Order Comment: Speci men Type: BLOOD SPECIMENOrdering Facility: [facility] Address: [address] Performed By: #### 5 7021-8 ####[facility] LABCLIA [id number] [place] [address] [place] Neutrophils (Bld) [#/Vol] 5.37 10*3/uL Normal 1.45-7.50 [facility] Comment on above: Order Comment: Speci men Type: BLOOD SPECIMENOrdering Facility: [facility] Address: [address] Performed By: #### 5 7021-8 ####[facility] LABCLIA [id number] [place] [address] [place] Neutrophils/100 WBC (Bld) 81.2 % Normal [facility] Comment on above: Order Comment: Speci men Type: BLOOD SPECIMENOrdering Facility: [facility] Address: [address] Performed By: #### 5 7021-8 ####[facility] LABCLIA [id number] [place] [address] [place] Nucleated RBC (Bld) [#/Vol] 10*3/uL Normal <0.01 [facility] Comment on above: Order Comment: Speci men Type: BLOOD SPECIMENOrdering Facility: [facility] Address: [address] Performed By: #### 5 7021-8 ####[facility] LABCLIA [id number] [place] [address] [place] Nucleated RBC/100 WBC (Bld) [Ratio] 0.0 /100 WBC Normal [facility] Comment on above: Order Comment: Speci men Type: BLOOD SPECIMENOrdering Facility: [facility] Address: [address] Performed By: #### 5 7021-8 ####[facility] LABIA [id number] [place] [address] [place] Platelet mean volume (Bld) [Entitic vol] 10.6 fL Normal 9.0-12.7 [facility] Comment on above: Order Comment: Speci men Type: BLOOD SPECIMENOrdering Facility: [facility] Address: [address] [place], [place] [address] Performed By: #### 5 7021-8 ####[facility] LABIA [id number] [place] [address] [place] Platelets (Bld) [#/Vol] 214 10*3/uL Normal 150-400 [facility] Comment on above: Order Comment: Speci men Type: BLOOD SPECIMENOrdering Facility: [facility] Address: [address] [place], [place] [address] Performed By: #### 5 7021-8 ####[facility] LABIA [id number] [place] [address] [place] RBC (Bld) [#/Vol] 4.31 10*6/uL Normal 4.20-6.00 [facility] Comment on above: Order Comment: Speci men Type: BLOOD SPECIMENOrdering Facility: [facility] Address: [address] [place], [place] [address] Performed By: #### 5 7021-8 ####[facility] LABIA [id number] [place] [address] [place] WBC (Bld) [#/Vol] 6.61 10*3/uL Normal 3.70-11.00 [facility] Comment on above: Order Comment: Speci men Type: BLOOD SPECIMENOrdering Facility: [facility] Address: [address] [place], [place] [address] Performed By: #### 5 7021-8 ####[facility] LABIA [id number] [place] [address] [place] Comprehensive metabolic 2000 panelon 02-09-2023 Albumin [Mass/Vol] 4.2 g/dL Normal 3.9-4.9 [facility] Comment on above: Order Comment: Speci men Type: BLOOD SPECIMENOrdering Facility: [facility] Address: [address] [place] [address] Performed By: #### 2 4323-8 ####[facility] LABCLIA [id number] [place] [address] [place] ALP [Catalytic activity/Vol] 96 U/L Normal 38-113 [facility] Comment on above: Order Comment: Speci men Type: BLOOD SPECIMENOrdering Facility: [facility] Address: [address] [place] [address] Performed By: #### 2 4323-8 ####[facility] LABCLIA [id number] [address] [place] ALT [Catalytic activity/Vol] 30 U/L Normal 10-54 [facility] Comment on above: Order Comment: Speci men Type: BLOOD SPECIMENOrdering Facility: [facility] Address: [address] [place] [address] Performed By: #### 2 4323-8 ####[facility] LABCLIA [id number] [place] [address] [place] Anion gap [Moles/Vol] 11 mmol/L Normal 9-18 [facility] Comment on above: Order Comment: Speci men Type: BLOOD SPECIMENOrdering Facility: [facility] Address: [address] [place], [place] [address] Performed By: #### 2 4323-8 ####[facility] LABCLIA [id number] [place] [address] [place] AST [Catalytic activity/Vol] 26 U/L Normal 14-40 [facility] Comment on above: Order Comment: Speci men Type: BLOOD SPECIMENOrdering Facility: [facility] Address: [address] Performed By: #### 2 4323-8 ####[facility] LABCLIA [id number] [place] [address] [place] Bilirubin [Mass/Vol] 0.6 mg/dL Normal 0.2-1.3 [facility] Comment on above: Order Comment: Speci men Type: BLOOD SPECIMENOrdering Facility: [facility] Address: [address] Performed By: #### 2 4323-8 ####[facility] LABCLIA [id number] [place] [address] [place] Calcium [Mass/Vol] 9.5 mg/dL Normal 8.5-10.2 [facility] Comment on above: Order Comment: Speci men Type: BLOOD SPECIMENOrdering Facility: [facility] Address: [address] [place], [place] [address] Performed By: #### 2 4323-8 ####[facility] LABCLIA [id number] [place] [address] [place] Chloride [Moles/Vol] 106 mmol/L High 97-105 [facility] Comment on above: Order Comment: Speci men Type: BLOOD SPECIMENOrdering Facility: [facility] Address: [address] Performed By: #### 2 4323-8 ####[facility] LABCLIA [id number] [place] [address] [place] CO2 [Moles/Vol] 23 mmol/L Normal 22-30 [facility] Comment on above: Order Comment: Speci men Type: BLOOD SPECIMENOrdering Facility: [facility] Address: [address] Performed By: #### 2 4323-8 ####[facility] LABCLIA [id number] [address] STATES OF [facility] Creatinine [Mass/Vol] 0.88 mg/dL Normal 0.73-1.22 [facility] Comment on above: Order Comment: Gerry ibrahim Type: BLOOD SPECIMENOrdering Facility: [facility] Address: [address] [place] [address] Performed By: #### 2 4323-8 ####[facility] LABCLIA [id number] [address] ESTIMATED GLOMERULAR FILTRATION RATE 105 mL/min/1.73m??? Normal >=60 [facility] Comment on above: Order Comment: Gerry ibrahim Type: BLOOD SPECIMENOrdering Facility: [facility] Address: [address] [place] [address] Result Comment: Tanya mated Glomerular Filtration Rate (eGFR) is calculated using the 2020 CKD-EPI creatinine equation. This equation utilizes serum creatinine, sex, and age as parameters. The creatinine assay has traceable calibration to isotope dilution-mass spectrometry. Refer to KDIGO guidelines for clinical interpretation. In patients with unstable renal function, e.g. those with acute kidney injury, the eGFR may not accurately reflect actual GFR. Performed By: #### 2 4323-8 ####[facility] LABCLIA [id number] [address] STATES OF [facility] Glucose [Mass/Vol] 93 mg/dL Normal 74-99 [facility] Comment on above: Order Comment: Gerry ibrahim Type: BLOOD SPECIMENOrdering Facility: [facility] Address: [address] [place] [address] Result Comment: The [place] [employer] (ADA) provides guidance for cutoff values for fasting glucose and random glucose. The ADA defines fasting as no caloric intake for at least 8 hours. Fasting plasma glucose results between 100 to 125 mg/dL indicate increased risk for diabetes (prediabetes). Fasting plasma glucose results greater than or equal to 126 mg/dL meet the criteria for diagnosis of diabetes. In the absence of unequivocal hyperglycemia, results should be confirmed by repeat testing. In a patient with classic symptoms of hyperglycemia or hyperglycemic crisis, random plasma glucose results greater than or equal to 200 mg/dL meet the criteria for diagnosis of diabetes. Reference: Standards of Medical Care in Diabetes 2016, [place] [employer]. Diabetes Care. 2016.39(Suppl 1). Performed By: #### 2 4323-8 ####[facility] LABCLIA [id number] [place] [address] [place] Potassium [Moles/Vol] 4.2 mmol/L Normal 3.7-5.1 [facility] Comment on above: Order Comment: Speci men Type: BLOOD SPECIMENOrdering Facility: [facility] Address: [address] [place] [address] Performed By: #### 2 4323-8 ####[facility] LABCLIA [id number] [place] [address] [place] Protein [Mass/Vol] 7.1 g/dL Normal 6.3-8.0 [facility] Comment on above: Order Comment: Speci men Type: BLOOD SPECIMENOrdering Facility: [facility] Address: [address] Performed By: #### 2 4323-8 ####[facility] LABCLIA [id number] [place] [address] [place] Sodium [Moles/Vol] 140 mmol/L Normal 136-144 [facility] Comment on above: Order Comment: Speci men Type: BLOOD SPECIMENOrdering Facility: [facility] Address: [address] [place] [address] Performed By: #### 2 4323-8 ####[facility] LABCLIA [id number] [place] [address] [place] Urea nitrogen [Mass/Vol] 17 mg/dL Normal 9-24 [facility] Comment on above: Order Comment: Speci men Type: BLOOD SPECIMENOrdering Facility: [facility] Address: [address] Performed By: #### 2 4323-8 ####[facility] LABCLIA [id number] [place] [address] [place] [id number] 02-09-2023 ECG01 Ventricular Rate : 7 1 BPM Atrial Rate : 71 BPM P-R Interval : 172 ms QRS Duration : 124 ms Q-T Interval : 400 ms QTC Calculation(Bazett) : 434 ms Calculated P [place] : 60 degrees Calculated R [place] : 127 degrees Calculated T [place] : 9 degrees NORMAL SINUS RHYTHM RIGHT AXIS DEVIATION NONSPECIFIC INTRAVENTRICULAR CONDUCTION DELAY ABNORMAL ECG Confirmed by JOBY UMANA MD ([id number]) on 02/10/2023 1:15:21 PM NAME : HOANG WHITE PID : [id number] : 1975 Gender : Male Race : ORD : Procedure Date : Feb 09 2023 13:57:26 Edit Date : Feb 10 2023 13:15:23 Diagnosis: NORMAL SINUS RHYTHM RIGHT AXIS DEVIATION NONSPECIFIC INTRAVENTRICULAR CONDUCTION DELAY ABNORMAL ECG Confirmed by JOBY UMANA MD ([id number]) on 02/10/2023 1:15:21 PM Test Reason : SURGERY Location : 545 : [facility] Overread By : JOBY UMANA MD Edited By : JOBY UMANA MD Referred By : ANA ENRIQUEZ Acquired by : Shaheed CARUSO [facility] HISTORY PHYSICALon HISTORY PHYSICAL HNO ID: [id number] Author: Ruba Awad APRN.FILE CONVERSION OPERATOR Service: ? Author Type: Nurse Practitioner Type: HANDP Filed: 02/10/2023 11:25 AM Note Text: HISTORY AND PHYSICAL EXAMINATION SERVICE DATE: 02/09/2023 SERVICE TIME: 1:40 PM PRIMARY CARE PHYSICIAN: Shaikh Kia MD REASON FOR VISIT: Hoang White is a 47 year old male who is scheduled for Procedure(s) (LRB): CLOSURE ILEOSTOMY (N/A) at the request of Dr. Ana Enriquez for consultation. My final recommendation will be communicated back to the requesting physician by way of shared medical record or letter. Subjective CHIEF COMPLAINT: surgery HPI: Pt. presenting with history of rectal cancer s/p loop sigmoid Colostomy 02/21/2022, neoadjuvant therapy and radiation and robotic proctectomy 11/07/2022 that is recommended for surgery. Pt. denies any pain or s/sx of bleeding. PAST MEDICAL HISTORY Diagnosis Date Adenocarcinoma of colon (HCC) Endocarditis 2003 Hypothyroidism Mass of colon [address] Jaquez PAST SURGICAL HISTORY Procedure Laterality Date COLONSCOPY SCREENING HIGH RISK 2021 COLOSTOMY 02/21/2022 Laparoscopic Divided End Loop Sigmoid Colostomy EGD PAST SURGICAL HISTORY OF Right 2012 inguinal PAST SURGICAL HISTORY OF 2019 teeth pullled out PAST SURGICAL HISTORY OF 11/07/2022 colostomy takedown, robotic low anterior resection, flexible sigmoidoscopy, diverting loop ileostomy FAMILY HISTORY Problem Relation Age of Onset Breast Cancer Sister Colon Cancer Maternal Grandfather SOCIAL HISTORY: Social History Tobacco Use Smoking status: Former Packs/day: 0.50 Years: 25.00 Pack years: 12.50 Types: Cigarettes Quit date: 10/30/2022 Years since quittin.2 Smokeless tobacco: Never Tobacco comments: Less than half a pack Vaping Use Vaping Use: Never used Substance Use Topics Alcohol use: Not Currently Comment: 2 drinks/week; heavy in past Drug use: Not Currently Types: IV Comment: Past drug use of herorin MEDICATIONS: Prior to Admission medications as of 02/09/23 1423 Medication Sig Last Dose Taking naproxen sodium (ALEVE) 220 mg cap Take by mouth as needed. Taking Yes ibuprofen (MOTRIN) 200 mg tablet Take 200 mg by mouth every 6 hours as needed for pain. Taking Yes buprenorphine-naloxone (SUBOXONE) 8-2 mg film DISSOLVE 2 (TWO) films UNDER THE TONGUE DAILY Yes loperamide (IMODIUM) 2 mg cap(s) Take 1 capsule by mouth twice daily before meals (0600/1600). Taking Yes buPROPion XL (WELLBUTRIN XL) 300 mg 24 hr tablet Take 1 tablet by mouth once daily. Take wellbutrin 150 mg tablet daily for 5 days before starting 300 mg dose daily Taking Yes prochlorperazine (COMPAZINE) 10 mg tablet Take 1 tablet by mouth every 6 hours as needed. Taking Yes nicotine (NICODERM) 21 mg/24 hr Apply 1 Patch as directed every 24 hours. Taking Yes ondansetron (ZOFRAN) 8 mg tablet Take 1 tablet by mouth every 8 hours as needed for nausea/vomiting. Taking Yes loratadine (CLARITIN) 10 mg tablet Take 10 mg by mouth once daily. Taking Yes atorvastatin (LIPITOR) 10 mg tablet Take 10 mg by mouth once daily. Taking Yes acetaminophen (TYLENOL) 500 mg tablet Take 2 tablets by mouth every 6 hours. Taking Yes levothyroxine (SYNTHROID) 125 mcg tablet Take 125 mcg by mouth once daily. Taking Yes iv contrast (will be provided with radiology test) CT ABD/PEL -Inject, intravenously, once for 1 dose.No IV access, insert saline lock prior to the beginning of sedation, infusion, injection of imaging exam. Discontinue saline lock post exam. If Pt. has a central line or IVAD, may access for administration according to line specific nursing protocol. Once exam is complete flush line and de-access according to line specific nursing protocol in the CT contrast administration guidelines link. enteric contrast (will be provided with radiology test) For CT ABD/PEL W IVCON Routine order Administer, As Directed One Time Only, via Oral, Rectal, both Oral and Rectal, Enteric Tube, Stoma or Indwelling Catheter, Enteric Contrast as designated per enteric contrast guidelines lactobacillus rhamnosus (CULTURELLE) 10 billion cell capsule Take 1 capsule by mouth once daily. No medication comments found. CURRENT ALLERGIES: ALLERGIES No Known Allergies COVID VACCINATION STATUS: Not vaccinated REVIEW OF SYSTEMS: PAIN ASSESSMENT: Pain Pain Level: 3 Pain Location: Abdomen-Left Lower Quadrant Description: Burning Frequency: Continuous Intervention/Comfort measure: Medication General: No weight loss, malaise or fevers. Neuro: No history of TIA's, stroke, VP REVENUE CYCLE tumor, impaired sensorium, hemiplegia, paraplegia or quadraplegia. No neurological symptoms or problems. Respiratory: No history of current cough or dyspnea, or pneumonia in the past 6 weeks. (+) former smoker, Hx asthma ( childhood) Cardiovascular: Negative for CAD, Chest Pain(+) Hx DVT, endocarditis( >15 years ago), TR GI: See HPI (more content not included)... Normal [facility] TYPE AND SCREEN,30 DAYon ABO B Normal [facility] Comment on above: Order Comment: Speci men Type: BLOOD SPECIMENOrdering Facility: [facility] Address: [address] [place] [id number] Performed By: #### T SCR30, %ALESIA ####CC MAIN BLOOD BANKCLIA [id number] [address] [place]#### [id number] ####[facility] BLOOD BANKCLIA [id number] [address] [place] HISTORICAL AB SCR STATUS Positive Abnormal [facility] Comment on above: Order Comment: Speci men Type: BLOOD SPECIMENOrdering Facility: [facility] Address: [address] [place] [address] Performed By: #### T SCR30, %ALESIA ####CC MAIN BLOOD BANKCLIA [id number] [place] [address] [place]#### [id number] ####[facility] BLOOD BANKCLIA [id number] [address] [place] Rh Nom (Bld) Positive Normal [facility] Comment on above: Order Comment: Speci men Type: BLOOD SPECIMENOrdering Facility: [facility] Address: [address] [place] [address] Performed By: #### T SCR30, %ALESIA ####[facility] BLOOD BANKCLIA [id number] [address] [place]#### [id number] ####[facility] BLOOD BANKCLIA [id number] [place] [address] [place] Redd 02-01-2023 CNPN Telephone ([facility]) -------- HOANG WHITE ([id number]) 1975 M Date Time Provider Department 02/01/23 ANA ENRIQUEZ [facility] During your visit today, we recorded the following information about you: Ketty Padilla 02/01/2023 11:36 AM Signed Patient called in and he is having severe pain and has a red rash around his stoma. Contact# [phone] Anthony Caraballo RN 02/01/2023 2:30 PM Signed Returned call and LVM. Hunter or Hoang will call back with their questions and concerns. Allergies As of Date: 02/01/2023 (No Known Allergies) Date Reviewed: 01/17/2023 Reviewed by: Ana Enriquez MD - Fully Assessed Reason for Visit: Patient Question [1477] Prescriptions as of 02/02/2023 - traMADol (ULTRAM) 50 mg tablet Take 1 tablet by mouth every 6 hours as needed for pain. - loperamide (IMODIUM) 2 mg cap(s) Take 1 capsule by mouth twice daily before meals (0600/1600). - iv contrast (will be provided with radiology test) CT ABD/PEL -Inject, intravenously, once for 1 dose.No IV access, insert saline lock prior to the beginning of sedation, infusion, injection of imaging exam. Discontinue saline lock post exam. If Pt. has a central line or IVAD, may access for administration according to line specific nursing protocol. Once exam is complete flush line and de-access according to line specific nursing protocol in the CT contrast administration guidelines link. - enteric contrast (will be provided with radiology test) For CT ABD/PEL W IVCON Routine order Administer, As Directed One Time Only, via Oral, Rectal, both Oral and Rectal, Enteric Tube, Stoma or Indwelling Catheter, Enteric Contrast as designated per enteric contrast guidelines - buPROPion XL (WELLBUTRIN XL) 300 mg 24 hr tablet Take 1 tablet by mouth once daily. Take wellbutrin 150 mg tablet daily for 5 days before starting 300 mg dose daily - prochlorperazine (COMPAZINE) 10 mg tablet Take 1 tablet by mouth every 6 hours as needed. - nicotine (NICODERM) 21 mg/24 hr Apply 1 Patch as directed every 24 hours. - ondansetron (ZOFRAN) 8 mg tablet Take 1 tablet by mouth every 8 hours as needed for nausea/vomiting. - loratadine (CLARITIN) 10 mg tablet Take 10 mg by mouth once daily. - atorvastatin (LIPITOR) 10 mg tablet Take 10 mg by mouth once daily. - acetaminophen (TYLENOL) 500 mg tablet Take 2 tablets by mouth every 6 hours. - lactobacillus rhamnosus (CULTURELLE) 10 billion cell capsule Take 1 capsule by mouth once daily. - levothyroxine (SYNTHROID) 125 mcg tablet Take 125 mcg by mouth once daily. 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] 01/17/2022 Red blood cell antibody positive [R76.8] 02/09/2022 History of intravenous drug abuse (HCC) [F19.11]02/16/2022 Smoker [F17.200] 02/16/2022 Rectal mass [K62.89] 02/16/2022 Rectal cancer (HCC) [C20] 02/21/2022 Severe protein-calorie malnutrition (HCC) [E43] 02/22/2022 Malaise and fatigue [R53.81, R53.83] 07/15/2022 Hypothyroidism unspecified [E03.9] 12/02/2021 DVT (deep venous thrombosis) (HCC) [I82.409] 10/28/2022 Encounter Status:Closed by ANTHONY CARABALLO on 02/02/23 [facility] XR COLON SINGLE CONTRASTon 0 01-31-2023 XR COLON SINGLE CONTRAST * * *Final Report* * * DATE OF EXAM: Jan 31 2023 3:14PM MDX [id number] - XR COLON SINGLE CONTRAST / PROCEDURE REASON: multiple diagnoses * * * * Physician Interpretation * * * * WATER SOLUBLE CONTRAST ENEMA HISTORY: 47 years old Male with Encounter for follow-up surveillance of rectal cancer. Acute post-operative pain. Post Operative Anatomy. Status post low anterior resection, colorectal anastomosis, diverting loop ileostomy 11/07/2022 for rectal cancer. COMPARISON: CT abdomen pelvis 10/17/2022 TECHNIQUE: A water soluble contrast enema was performed after insertion of a rectal tube under fluoroscopic guidance. Spot and overhead images were obtained. Contrast: 500 ml of 200 mL of Omnipaque 350 + 400 mL of water. Fluoroscopy radiation summary: Fluoroscopy time: 1:06 (min:sec). Air kerma: 28.3 mGy. RESULT: Data Analyst Report Writer: No dilated bowel. Bowel anastomotic sutures in the pelvis. Water-soluble contrast was instilled via gravity. Contrast refluxes freely from the of contrast from the pouch to the stoma. No leak or stricture at the ileoanal anastomosis or pouch. There is prompt retrograde opacification of the rectum, colon and distal small bowel with contrast exiting through the LEFT lower quadrant ostomy. Contrast crosses the colorectal anastomosis without fixed stricture or leak. Scattered colonic diverticulosis. IMPRESSION: No leak or stricture at the colorectal anastomosis. Search Marketing Specialist: PSCB Transcribe Date/Time: Jan 31 2023 4:14P Dictated by : MELODY GARNICA DO This examination was interpreted and the report reviewed and electronically signed by: MELODY GARNICA DO on Jan 31 2023 4:21PM EST [id number] Normal [facility] CNCOon 01-24-2023 CNCO Letter Text Normal [facility] CNOVon 01-17-2023 CNOV Office Visit ([facility] ) -------- ESTRADAHOANG ([id number]) 1975 M Date Time Provider Department 01/17/23 10:20 AM ANA ENRIQUEZ [facility] During your visit today, we recorded the following information about you: Temperature Pulse Blood pressure Weight 97.3 degrees 55/minute 98/55 59 kg Height 1.727 m Ana Enriquez MD 01/17/2023 10:52 AM Signed COLORECTAL SURGERY January 17, 2023 Hoang Estrada Chief Complaint: surveillance of rectal cancer History of Present Illness: Hoang White is a 47 year old male presents to the office for surveillance of rectal cancer. 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. Last seen in the office on on 12/06/22 with Kaylin Aragon FILE CONVERSION OPERATOR for concerns of stoma trauma. Pouching issues: still with issues due to trauma to stoma w/ leakage from superior aspect of stoma w/ associated peristomal dermatitis 24 hr stoma output: Thinks more than 1.5L / 24 hrs but doesn't track output. Usually urine is clear, occasional dark urine/dehydration Wound/incision concerns: No Current medications: Taken naproxen, tylenol, minimal suboxone Current EtOH: No Current tobacco use: No Endoscopist: Kishan Jaquez Medical oncologist: Oscar Gonzalez Radiation oncologist: Tylor Davalos Sigmoidoscopy on 10/13/22: - Stricture in the proximal rectum. - No specimens collected. Colonoscopy date/findings: 12/24/21 Partially obstructing large circumferential mass, rectosigmoid at 10 cm, multiple biopsies obtained and tattooed. Colonoscopy pathology: Rectosigmoid colon mass: invasive moderately differentiated adenocarcinoma. CT chest date/findings: 09/26/22 SCATTERED LESS THAN 0.5 CM LUNG NODULES BILATERALLY, STABLE. NO SIGNIFICANT INTERVAL CHANGE SINCE 01/13/2022. CT abdomen date/findings: 10/17/22 Stable postoperative appearance to the abdomen and pelvis as above. MRI rectum date/findings: 09/26/22 Since 05/12/2022 and 02/03/2022, post treatment primary tumor assessment: RESULT: TREATED PRIMARY TUMOR CHARACTERISTICS (Compare to pre-treatment): DWI (with associated low ADC) ? restricted diffusion and low ADC in tumor or tumor bed: Absent. MRI-T2W: Mixed dark T2/scar and intermediate signal. T2 bright mucin (cannot distinguish between cellular and acellular mucin): Absent. Description: Development of T2 hyperintense scar. Distance of the inferior margin of treated tumor to the anal verge: 10.5 cm (3:21) Distance of the inferior margin to the top of sphincter complex/anorectal junction: 8.5 cm (3:21) Relationship to anterior peritoneal reflection: Straddles Craniocaudal length: 2.4 cm (6:24) Pre-treatment craniocaudal length: 3.5 cm (05/12/2022); 6.8 cm (02/03/2022) Tumor location: Upper rectum (10-15 cm) Maximal wall thickness: 0.5 cm (6:24) Pre-treatment wall thickness: 0.7 cm (05/12/2022); 1.3 cm (02/03/2022) Invasion of anal sphincter complex: Absent. Anal canal involvement: None. TUMOR DEPOSITS AND EXTRAMURAL VASCULAR INVASION (EMVI): Tumor deposits:(separate from metastatic lymph nodes): No. EMVI: No (none evident pre-treatment). MESORECTAL FASCIA (MRF): Shortest distance of extraluminal part of the tumor to MRF: Tumor extension beyond the rectal wall at and above the anterior peritoneal reflection Tumor extension through the peritonealized portion of the rectum into peritoneal fat: Tumor extension along the right lateral wall inseparable from the peritoneal reflection. Is there a separate tumor deposit, LN or EMVI threatening (?1mm and ?2 mm) or invading (< 1 mm) the MRF? No. Comments: N/A T4 disease interval change: Continued decreased thickening along the right peritoneal reflection. POST-TREATMENT TUMOR REGRESSION: mrTRG: Grade 3 - Moderate response LYMPH NODES: Mesorectal/superior rectal lymph nodes and/or tumor deposits: N0 (no visible lymph nodes/deposits or only < 5 mm short axis) Suspicious extra mesorectal lymph nodes: None. OTHER FINDINGS: Diverting end colostomy. Trabeculated appearance of the urinary bladder. Postsurgical changes of right inguinal hernia repair. No aggressive osseous lesions. Additional imaging: n/a CEA date/level: 05/24/22- 5.9 Clinical stage: stage IIIC, [id number] Treatment: 5000 cGy in 25 fractions, 2 VMAT/Rapid Arcs, 10X with daily CBCT Imaging TOTAL: 5000 cGy in 25 fractions with concurrent Xeloda S/p consolidation CAPOX complete 08/26/22 Pathologic stage: TBD Surveillance primary physician: Carlos Surveillance plan: TBD. PAST MEDICAL HISTORY Diagnosis Date Adenocarcinoma of colon (HCC) Endocarditis 2003 Hypothyroidism Mass of colon [address] Jaquez PAST SURGICAL HISTORY Procedure Laterality Date COLONSCOPY SCREENING HIGH RISK 2021 COLOSTOMY 02/21/2022 Laparoscopic Divided End Loop Sigmoid Colostomy EGD PAST SURGICAL HISTORY OF Right 2012 inguinal (more content not included)... Normal [facility] CNPNon 01-02-2023 CNPN Telephone ([facility]) -------- HOANG WHITE ([id number]) 1975 M Date Time Provider Department 01/02/23 ANA ENRIQUEZ [facility] During your visit today, we recorded the following information about you: Christine Paulkew 01/02/2023 3:51 PM Signed Pt. Family called and has concerns with his stoma site would like a call. PH:[phone] Anthony Caraballo RN 01/02/2023 3:58 PM Signed Returned call and left voice message. Allergies As of Date: 01/02/2023 (No Known Allergies) Date Reviewed: 12/06/2022 Reviewed by: Kaylin Aragon APRN.FILE CONVERSION OPERATOR - Fully Assessed Reason for Visit: Patient Question [1837] Prescriptions as of 01/03/2023 - loperamide (IMODIUM) 2 mg cap(s) Take 1 capsule by mouth twice daily before meals (0600/1600). - traMADol (ULTRAM) 50 mg tablet Take 1 tablet by mouth every 6 hours as needed for pain for up to 20 doses. - iv contrast (will be provided with radiology test) CT ABD/PEL -Inject, intravenously, once for 1 dose.No IV access, insert saline lock prior to the beginning of sedation, infusion, injection of imaging exam. Discontinue saline lock post exam. If Pt. has a central line or IVAD, may access for administration according to line specific nursing protocol. Once exam is complete flush line and de-access according to line specific nursing protocol in the CT contrast administration guidelines link. - enteric contrast (will be provided with radiology test) For CT ABD/PEL W IVCON Routine order Administer, As Directed One Time Only, via Oral, Rectal, both Oral and Rectal, Enteric Tube, Stoma or Indwelling Catheter, Enteric Contrast as designated per enteric contrast guidelines - buPROPion XL (WELLBUTRIN XL) 300 mg 24 hr tablet Take 1 tablet by mouth once daily. Take wellbutrin 150 mg tablet daily for 5 days before starting 300 mg dose daily - prochlorperazine (COMPAZINE) 10 mg tablet Take 1 tablet by mouth every 6 hours as needed. - nicotine (NICODERM) 21 mg/24 hr Apply 1 Patch as directed every 24 hours. - ondansetron (ZOFRAN) 8 mg tablet Take 1 tablet by mouth every 8 hours as needed for nausea/vomiting. - loratadine (CLARITIN) 10 mg tablet Take 10 mg by mouth once daily. - atorvastatin (LIPITOR) 10 mg tablet Take 10 mg by mouth once daily. - acetaminophen (TYLENOL) 500 mg tablet Take 2 tablets by mouth every 6 hours. - lactobacillus rhamnosus (CULTURELLE) 10 billion cell capsule Take 1 capsule by mouth once daily. - levothyroxine (SYNTHROID) 125 mcg tablet Take 125 mcg by mouth once daily. Facility-Administered Medications as of 01/03/2023 - perflutren lipid microspheres 1.3 mL in NaCl (PF) 0.9% 10 mL injection (DEFINITY) - sodium chloride 0.9 % (flush) 10 mL (BD POSIFLUSH) Problem List As Of Date 01/02/2023 Noted Resolved History of endocarditis [Z86.79] 01/17/2022 Severe tricuspid regurgitation [I07.1] 01/17/2022 Abnormality of right ventricle of heart [Q20.8] 01/17/2022 Red blood cell antibody positive [R76.8] 02/09/2022 History of intravenous drug abuse (HCC) [F19.11]02/16/2022 Smoker [F17.200] 02/16/2022 Rectal mass [K62.89] 02/16/2022 Rectal cancer (HCC) [C20] 02/21/2022 Severe protein-calorie malnutrition (HCC) [E43] 02/22/2022 Malaise and fatigue [R53.81, R53.83] 07/15/2022 Hypothyroidism unspecified [E03.9] 12/02/2021 DVT (deep venous thrombosis) (HCC) [I82.409] 10/28/2022 Encounter Status:Closed by ANTHONY CARABALLO on 01/03/23 [facility] Redd 12-21-2022 CNPN Telephone ([facility]) -------- HOANG WHITE ([id number]) 1975 M Date Time Provider Department 12/21/22 MEGHAN PICHARDO During your visit today, we recorded the following information about you: Meghan Pichardo RN 12/21/2022 10:00 AM Signed Voicemail received from pt stating he has irritation around his stoma and would like to know what he should use for this. Discussed with Temi who states pt needs to contact the stoma team regarding this. Call placed to pt and message left encouraging him to contact Dr Enriquez's office or his stoma nurse regarding this. Pt has reached out to their office in the past regarding other concerns as well. SHEMAR Monique RN 12/22/2022 2:04 PM Signed Our office called and LVM about scheduling an appointment to see Yolis FILE CONVERSION OPERATOR for his stoma issues. Waiting on a return call to confirm appointment date. Allergies As of Date: 12/21/2022 (No Known Allergies) Date Reviewed: 12/06/2022 Reviewed by: Kaylin Aragon APRN.FILE CONVERSION OPERATOR - Fully Assessed Reason for Visit: Care Coordination [2616] Cmt: Irritation around stoma Prescriptions as of 12/22/2022 - loperamide (IMODIUM) 2 mg cap(s) Take 1 capsule by mouth twice daily before meals (0600/1600). - traMADol (ULTRAM) 50 mg tablet Take 1 tablet by mouth every 6 hours as needed for pain for up to 20 doses. - iv contrast (will be provided with radiology test) CT ABD/PEL -Inject, intravenously, once for 1 dose.No IV access, insert saline lock prior to the beginning of sedation, infusion, injection of imaging exam. Discontinue saline lock post exam. If Pt. has a central line or IVAD, may access for administration according to line specific nursing protocol. Once exam is complete flush line and de-access according to line specific nursing protocol in the CT contrast administration guidelines link. - enteric contrast (will be provided with radiology test) For CT ABD/PEL W IVCON Routine order Administer, As Directed One Time Only, via Oral, Rectal, both Oral and Rectal, Enteric Tube, Stoma or Indwelling Catheter, Enteric Contrast as designated per enteric contrast guidelines - buPROPion XL (WELLBUTRIN XL) 300 mg 24 hr tablet Take 1 tablet by mouth once daily. Take wellbutrin 150 mg tablet daily for 5 days before starting 300 mg dose daily - prochlorperazine (COMPAZINE) 10 mg tablet Take 1 tablet by mouth every 6 hours as needed. - nicotine (NICODERM) 21 mg/24 hr Apply 1 Patch as directed every 24 hours. - ondansetron (ZOFRAN) 8 mg tablet Take 1 tablet by mouth every 8 hours as needed for nausea/vomiting. - loratadine (CLARITIN) 10 mg tablet Take 10 mg by mouth once daily. - atorvastatin (LIPITOR) 10 mg tablet Take 10 mg by mouth once daily. - acetaminophen (TYLENOL) 500 mg tablet Take 2 tablets by mouth every 6 hours. - lactobacillus rhamnosus (CULTURELLE) 10 billion cell capsule Take 1 capsule by mouth once daily. - levothyroxine (SYNTHROID) 125 mcg tablet Take 125 mcg by mouth once daily. Facility-Administered Medications as of 12/22/2022 - perflutren lipid microspheres 1.3 mL in NaCl (PF) 0.9% 10 mL injection (DEFINITY) - sodium chloride 0.9 % (flush) 10 mL (BD POSIFLUSH) Problem List As Of Date 12/21/2022 Noted Resolved History of endocarditis [Z86.79] 01/17/2022 Severe tricuspid regurgitation [I07.1] 01/17/2022 Abnormality of right ventricle of heart [Q20.8] 01/17/2022 Red blood cell antibody positive [R76.8] 02/09/2022 History of intravenous drug abuse (HCC) [F19.11]02/16/2022 Smoker [F17.200] 02/16/2022 Rectal mass [K62.89] 02/16/2022 Rectal cancer (HCC) [C20] 02/21/2022 Severe protein-calorie malnutrition (HCC) [E43] 02/22/2022 Malaise and fatigue [R53.81, R53.83] 07/15/2022 Hypothyroidism unspecified [E03.9] 12/02/2021 DVT (deep venous thrombosis) ([facility]) [I82.409] 10/28/2022 Encounter Status:Closed by MEGHAN PICHARDO on 12/21/22 [facility] -------- HOANG WHITE ([id number]) 1975 M Date Time Provider Department 12/20/22 ANA ENRIQUEZ [facility] During your visit today, we recorded the following information about you: Andreea Garces 12/20/2022 11:22 AM Signed Patient called regarding post operative 11/07 robotic laparoscopic proctectomy and wound like a refill on pain medication return call to [phone] Kelsea Daniel RN 12/20/2022 4:09 PM Signed Call returned to patient. No answer, left message to return call to office to schedule an earlier follow up for complaint of pain. LM no prescription to be sent in until evaluation. Office number provided to schedule - offered next day appt. With FILE CONVERSION OPERATOR. Dr Enriquez aware of request Allergies As of Date: 12/20/2022 (No Known Allergies) Date Reviewed: 12/06/2022 Reviewed by: Kaylin Aragon APRN.[facility] - Fully Assessed Reason for Visit: Post Op [174] Prescriptions as of 12/20/2022 - loperamide (IMODIUM) 2 mg cap(s) Take 1 capsule by mouth twice daily before meals (0600/1600). - traMADol (ULTRAM) 50 mg tablet Take 1 tablet by mouth every 6 hours as needed for pain for up to 20 doses. - iv contrast (will be provided with radiology test) CT ABD/PEL -Inject, intravenously, once for 1 dose.No IV access, insert saline lock prior to the beginning of sedation, infusion, injection of imaging exam. Discontinue saline lock post exam. If Pt. has a central line or IVAD, may access for administration according to line specific nursing protocol. Once exam is complete flush line and de-access according to line specific nursing protocol in the CT contrast administration guidelines link. - enteric contrast (will be provided with radiology test) For CT ABD/PEL W IVCON Routine order Administer, As Directed One Time Only, via Oral, Rectal, both Oral and Rectal, Enteric Tube, Stoma or Indwelling Catheter, Enteric Contrast as designated per enteric contrast guidelines - buPROPion XL (WELLBUTRIN XL) 300 mg 24 hr tablet Take 1 tablet by mouth once daily. Take wellbutrin 150 mg tablet daily for 5 days before starting 300 mg dose daily - prochlorperazine (COMPAZINE) 10 mg tablet Take 1 tablet by mouth every 6 hours as needed. - nicotine (NICODERM) 21 mg/24 hr Apply 1 Patch as directed every 24 hours. - ondansetron (ZOFRAN) 8 mg tablet Take 1 tablet by mouth every 8 hours as needed for nausea/vomiting. - loratadine (CLARITIN) 10 mg tablet Take 10 mg by mouth once daily. - atorvastatin (LIPITOR) 10 mg tablet Take 10 mg by mouth once daily. - acetaminophen (TYLENOL) 500 mg tablet Take 2 tablets by mouth every 6 hours. - lactobacillus rhamnosus (CULTURELLE) 10 billion cell capsule Take 1 capsule by mouth once daily. - levothyroxine (SYNTHROID) 125 mcg tablet Take 125 mcg by mouth once daily. Facility-Administered Medications as of 12/20/2022 - perflutren lipid microspheres 1.3 mL in NaCl (PF) 0.9% 10 mL injection (DEFINITY) - sodium chloride 0.9 % (flush) 10 mL (BD POSIFLUSH) Problem List As Of Date 12/20/2022 Noted Resolved History of endocarditis [Z86.79] 01/17/2022 Severe tricuspid regurgitation [I07.1] 01/17/2022 Abnormality of right ventricle of heart [Q20.8] 01/17/2022 Red blood cell antibody positive [R76.8] 02/09/2022 History of intravenous drug abuse (HCC) [F19.11]02/16/2022 Smoker [F17.200] 02/16/2022 Rectal mass [K62.89] 02/16/2022 Rectal cancer (HCC) [C20] 02/21/2022 Severe protein-calorie malnutrition (HCC) [E43] 02/22/2022 Malaise and fatigue [R53.81, R53.83] 07/15/2022 Hypothyroidism unspecified [E03.9] 12/02/2021 DVT (deep venous thrombosis) (HCC) [I82.409] 10/28/2022 Encounter Status:Closed by KELSEA DANIEL on 12/20/22 [facility]OVon 12-06-2022 CNOV Office Visit ([facility] ) -------- HOANG WHITE ([id number]) 1975 M Date Time Provider Department 12/06/22 10:30 AM KAYLIN ARAGON [facility] During your visit today, we recorded the following information about you: Temperature Pulse Respiration Blood pressure 97.6 degrees 73/minute 20/minute 117/62 Weight Height 59 kg 1.727 m Patricia Burt RN 12/06/2022 10:42 AM Signed What is the reason for your visit today? Stoma pain and irritation around site Who is your referring physician? N/a Are you having poor oral intake? YES Have you had unintentional weight loss of 15 lbs/7 Kg in the last 3-6 months? YES Bowels: stoma output apple sauce consistency, more water or thin at times Wound: n/a Temperature: No Drains: No Kaylin Aragon APRN.CNP 12/06/2022 1:58 PM Signed COLORECTAL SURGERY December 06, 2022 Hoang Estrada 47 year old Chief Complaint: stoma concern/trauma History of Present Illness: Hoang White is a 47 year old male presents today for postoperative appointment/ileostomy concerns after recently undergoing colostomy takedown, robotic assisted laparoscopic proctosigmoidectomy with colorectal anastomosis and diverting loop ileostomy on 11/07/[address] Enriquez for history of rectal cancer. Patient presented to the emergency room over the weekend due to concerns regarding stoma trauma. He reports that his 10 pound dog jumped on his abdomen and tore his stoma. He reports stool coming from the 12 o'clock position at the mucocutaneous junction. He denies stool from the loss of the loop. He states since discharge otherwise doing well with his stoma care. He has been using the same flat pouching system that he is used with his colostomy. He reports peristomal skin irritation due to the trajectory of stool however denies issues with pouch adherence or leakage. He reports that his stool can be very loose depending on what he is eating. He is not taking any Imodium or supplements to help thicken up his stool. He denies fevers or chills or concern for peristomal infection.. PAST MEDICAL HISTORY Diagnosis Date Adenocarcinoma of colon (HCC) Endocarditis 2003 Hypothyroidism Mass of colon [address] Jaquez PAST SURGICAL HISTORY Procedure Laterality Date COLONSCOPY SCREENING HIGH RISK 2021 COLOSTOMY 02/21/2022 Laparoscopic Divided End Loop Sigmoid Colostomy EGD PAST SURGICAL HISTORY OF Right 2012 inguinal PAST SURGICAL HISTORY OF 2019 teeth pullled out Current Outpatient Medications Medication Sig Dispense Refill ibuprofen (MOTRIN) 200 mg tablet Take 2 tablets by mouth every 8 hours as needed for pain. 90 tablet 1 traMADol (ULTRAM) 50 mg tablet Take 1 tablet by mouth every 6 hours as needed for pain for up to 20 doses. 20 tablet 0 prochlorperazine (COMPAZINE) 10 mg tablet Take 1 tablet by mouth every 6 hours as needed. 100 tablet 2 nicotine (NICODERM) 21 mg/24 hr Apply 1 Patch as directed every 24 hours. 30 Patch 1 ondansetron (ZOFRAN) 8 mg tablet Take 1 tablet by mouth every 8 hours as needed for nausea/vomiting. 90 tablet 2 loratadine (CLARITIN) 10 mg tablet Take 10 mg by mouth once daily. atorvastatin (LIPITOR) 10 mg tablet Take 10 mg by mouth once daily. acetaminophen (TYLENOL) 500 mg tablet Take 2 tablets by mouth every 6 hours. levothyroxine (SYNTHROID) 125 mcg tablet Take 125 mcg by mouth once daily. traMADol (ULTRAM) 50 mg tablet Take 1 tablet by mouth every 8 hours as needed for pain for up to 7 days. 20 tablet 0 loperamide (IMODIUM) 2 mg cap(s) Take 1 capsule by mouth twice daily before meals (0600/1600). 60 capsule 2 iv contrast (will be provided with radiology test) CT ABD/PEL -Inject, intravenously, once for 1 dose.No IV access, insert saline lock prior to the beginning of sedation, infusion, injection of imaging exam. Discontinue saline lock post exam. If Pt. has a central line or IVAD, may access for administration according to line specific nursing protocol. Once exam is complete flush line and de-access according to line specific nursing protocol in the CT contrast administration guidelines link. 1 Each 0 enteric contrast (will be provided with radiology test) For CT ABD/PEL W IVCON Routine order Administer, As Directed One Time Only, via Oral, Rectal, both Oral and Rectal, Enteric Tube, Stoma or Indwelling Catheter, Enteric Contrast as designated per enteric contrast guidelines 1 Each 0 buPROPion XL (WELLBUTRIN XL) 300 mg 24 hr tablet Take 1 tablet by mouth once daily. Take wellbutrin 150 mg tablet daily for 5 days before starting 300 mg dose daily 30 tablet 2 lactobacillus rhamnosus (CULTURELLE) 10 billion cell capsule Take 1 capsule by mouth once daily. 30 capsule 0 Current Facility-Administered Medications Medication Dose Route Frequency Provider Last Rate Last Admin perflutren lipid microspheres 1.3 mL in NaCl (PF) 0.9% (more content not included)... Normal [facility] 12-05-2022 CNPN Telephone ([facility]) -------- HOANG WHITE ([id number]) 1975 M Date Time Provider Department 12/05/22 ANA ENRIQUEZ [facility] During your visit today, we recorded the following information about you: Andreea Barry [facility] 12/05/2022 8:28 AM Signed Patient called and left message regarding post operative 11/07 robotic laparoscopic proctectomy and concerns regarding a hole in the stoma and leakage return call to [phone] Anthony Caraballo RN 12/05/2022 9:08 AM Signed Returned call. Elsa discussed her concerns of stool coming out of the area between the skin and the top of the stoma. No concerns with pouching. Stool is going into the bag. She would like an appointment for her today. I informed her that the earliest I can provide is tomorrow at 1030 am with Yolis Aragon NP. Dr Enriquez will be available in the office to stop in and see him as well. They were appreciative of the call. No other questions or concerns at this time. Allergies As of Date: 12/05/2022 (No Known Allergies) Date Reviewed: 12/04/2022 Reviewed by: Jairon Da Silva RN - Fully Assessed Reason for Visit: Post Op [174] Prescriptions as of 12/05/2022 - ibuprofen (MOTRIN) 200 mg tablet Take 2 tablets by mouth every 8 hours as needed for pain. - traMADol (ULTRAM) 50 mg tablet Take 1 tablet by mouth every 6 hours as needed for pain for up to 20 doses. - iv contrast (will be provided with radiology test) CT ABD/PEL -Inject, intravenously, once for 1 dose.No IV access, insert saline lock prior to the beginning of sedation, infusion, injection of imaging exam. Discontinue saline lock post exam. If Pt. has a central line or IVAD, may access for administration according to line specific nursing protocol. Once exam is complete flush line and de-access according to line specific nursing protocol in the CT contrast administration guidelines link. - enteric contrast (will be provided with radiology test) For CT ABD/PEL W IVCON Routine order Administer, As Directed One Time Only, via Oral, Rectal, both Oral and Rectal, Enteric Tube, Stoma or Indwelling Catheter, Enteric Contrast as designated per enteric contrast guidelines - buPROPion XL (WELLBUTRIN XL) 300 mg 24 hr tablet Take 1 tablet by mouth once daily. Take wellbutrin 150 mg tablet daily for 5 days before starting 300 mg dose daily - prochlorperazine (COMPAZINE) 10 mg tablet Take 1 tablet by mouth every 6 hours as needed. - nicotine (NICODERM) 21 mg/24 hr Apply 1 Patch as directed every 24 hours. - ondansetron (ZOFRAN) 8 mg tablet Take 1 tablet by mouth every 8 hours as needed for nausea/vomiting. - loratadine (CLARITIN) 10 mg tablet Take 10 mg by mouth once daily. - atorvastatin (LIPITOR) 10 mg tablet Take 10 mg by mouth once daily. - acetaminophen (TYLENOL) 500 mg tablet Take 2 tablets by mouth every 6 hours. - lactobacillus rhamnosus (CULTURELLE) 10 billion cell capsule Take 1 capsule by mouth once daily. - levothyroxine (SYNTHROID) 125 mcg tablet Take 125 mcg by mouth once daily. Facility-Administered Medications as of 12/05/2022 - perflutren lipid microspheres 1.3 mL in NaCl (PF) 0.9% 10 mL injection (DEFINITY) - sodium chloride 0.9 % (flush) 10 mL (BD POSIFLUSH) Problem List As Of Date 12/05/2022 Noted Resolved History of endocarditis [Z86.79] 01/17/2022 Severe tricuspid regurgitation [I07.1] 01/17/2022 Abnormality of right ventricle of heart [Q20.8] 01/17/2022 Red blood cell antibody positive [R76.8] 02/09/2022 History of intravenous drug abuse (HCC) [F19.11]02/16/2022 Smoker [F17.200] 02/16/2022 Rectal mass [K62.89] 02/16/2022 Rectal cancer (HCC) [C20] 02/21/2022 Severe protein-calorie malnutrition (HCC) [E43] 02/22/2022 Malaise and fatigue [R53.81, R53.83] 07/15/2022 Hypothyroidism unspecified [E03.9] 12/02/2021 DVT (deep venous thrombosis) (HCC) [I82.409] 10/28/2022 Encounter Status:Closed by ANTHONY CARABALLO on 12/05/22 [facility] 12-02-2022 AMY Telephone ([facility]) -------- HOANG WHITE ([id number]) 1975 M Date Time Provider Department 12/02/22 OSCAR GONZALEZ During your visit today, we recorded the following information about you: Ava Michael 12/02/2022 10:18 AM Signed Short term disability for surgery recovery has been completed and placed in folder to be signed. Pt would like paperwork faxed to [employer] and secured emailed to work. Email attached to paperwork. Ava Sexton MA 12/14/2022 1:13 PM Signed Faxed to [employer] #[phone] on 12/14/22. Bárbara Sexton MA Allergies As of Date: 12/02/2022 (No Known Allergies) Date Reviewed: 11/12/2022 Reviewed by: Rowena Hammonds RN - Fully Assessed Reason for Visit: Disability [employer] [1200] Prescriptions as of 12/21/2022 - loperamide (IMODIUM) 2 mg cap(s) Take 1 capsule by mouth twice daily before meals (0600/1600). - traMADol (ULTRAM) 50 mg tablet Take 1 tablet by mouth every 6 hours as needed for pain for up to 20 doses. - iv contrast (will be provided with radiology test) CT ABD/PEL -Inject, intravenously, once for 1 dose.No IV access, insert saline lock prior to the beginning of sedation, infusion, injection of imaging exam. Discontinue saline lock post exam. If Pt. has a central line or IVAD, may access for administration according to line specific nursing protocol. Once exam is complete flush line and de-access according to line specific nursing protocol in the CT contrast administration guidelines link. - enteric contrast (will be provided with radiology test) For CT ABD/PEL W IVCON Routine order Administer, As Directed One Time Only, via Oral, Rectal, both Oral and Rectal, Enteric Tube, Stoma or Indwelling Catheter, Enteric Contrast as designated per enteric contrast guidelines - buPROPion XL (WELLBUTRIN XL) 300 mg 24 hr tablet Take 1 tablet by mouth once daily. Take wellbutrin 150 mg tablet daily for 5 days before starting 300 mg dose daily - prochlorperazine (COMPAZINE) 10 mg tablet Take 1 tablet by mouth every 6 hours as needed. - nicotine (NICODERM) 21 mg/24 hr Apply 1 Patch as directed every 24 hours. - ondansetron (ZOFRAN) 8 mg tablet Take 1 tablet by mouth every 8 hours as needed for nausea/vomiting. - loratadine (CLARITIN) 10 mg tablet Take 10 mg by mouth once daily. - atorvastatin (LIPITOR) 10 mg tablet Take 10 mg by mouth once daily. - acetaminophen (TYLENOL) 500 mg tablet Take 2 tablets by mouth every 6 hours. - lactobacillus rhamnosus (CULTURELLE) 10 billion cell capsule Take 1 capsule by mouth once daily. - levothyroxine (SYNTHROID) 125 mcg tablet Take 125 mcg by mouth once daily. 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] 01/17/2022 Red blood cell antibody positive [R76.8] 02/09/2022 History of intravenous drug abuse (HCC) [F19.11]02/16/2022 Smoker [F17.200] 02/16/2022 Rectal mass [K62.89] 02/16/2022 Rectal cancer (HCC) [C20] 02/21/2022 Severe protein-calorie malnutrition (HCC) [E43] 02/22/2022 Malaise and fatigue [R53.81, R53.83] 07/15/2022 Hypothyroidism unspecified [E03.9] 12/02/2021 DVT (deep venous thrombosis) (HCC) [I82.409] 10/28/2022 Encounter Status:Closed by AVA LEWIS on 12/21/22 [facility] 11-21-2022 TAHIRAN Telephone ([facility]) -------- HOANG WHITE ([id number]) 1975 M Date Time Provider Department 11/21/22 MEGHAN PICHARDO During your visit today, we recorded the following information about you: Meghan Pichardo RN 11/21/2022 10:52 AM Signed Pt calls asking if there is paperwork on file for disability. He states he thought that he would have dropped it off at the office prior to his recent surgery but doesn't remember if he did or not. Reviewed pt's chart, spoke with medical assistance, and looked in Dr Granados's mail and do not see any forms that we've received. Pt notified of this. He will call his employer to see what needs to be filled out. Meghan Pichardo RN Allergies As of Date: 11/21/2022 (No Known Allergies) Date Reviewed: 11/12/2022 Reviewed by: Rowena Hammonds RN - Fully Assessed Reason for Visit: Care Coordination [0137] Cmt: question Prescriptions as of 11/21/2022 - enoxaparin (LOVENOX) 40 mg/0.4 mL Inject 0.4 mL subcutaneously once daily for 21 days. - ibuprofen (MOTRIN) 200 mg tablet Take 2 tablets by mouth every 8 hours as needed for pain. - traMADol (ULTRAM) 50 mg tablet Take 1 tablet by mouth every 6 hours as needed for pain for up to 20 doses. - iv contrast (will be provided with radiology test) CT ABD/PEL -Inject, intravenously, once for 1 dose.No IV access, insert saline lock prior to the beginning of sedation, infusion, injection of imaging exam. Discontinue saline lock post exam. If Pt. has a central line or IVAD, may access for administration according to line specific nursing protocol. Once exam is complete flush line and de-access according to line specific nursing protocol in the CT contrast administration guidelines link. - enteric contrast (will be provided with radiology test) For CT ABD/PEL W IVCON Routine order Administer, As Directed One Time Only, via Oral, Rectal, both Oral and Rectal, Enteric Tube, Stoma or Indwelling Catheter, Enteric Contrast as designated per enteric contrast guidelines - buPROPion XL (WELLBUTRIN XL) 300 mg 24 hr tablet Take 1 tablet by mouth once daily. Take wellbutrin 150 mg tablet daily for 5 days before starting 300 mg dose daily - prochlorperazine (COMPAZINE) 10 mg tablet Take 1 tablet by mouth every 6 hours as needed. - nicotine (NICODERM) 21 mg/24 hr Apply 1 Patch as directed every 24 hours. - ondansetron (ZOFRAN) 8 mg tablet Take 1 tablet by mouth every 8 hours as needed for nausea/vomiting. - loratadine (CLARITIN) 10 mg tablet Take 10 mg by mouth once daily. - atorvastatin (LIPITOR) 10 mg tablet Take 10 mg by mouth once daily. - acetaminophen (TYLENOL) 500 mg tablet Take 2 tablets by mouth every 6 hours. - lactobacillus rhamnosus (CULTURELLE) 10 billion cell capsule Take 1 capsule by mouth once daily. - levothyroxine (SYNTHROID) 125 mcg tablet Take 125 mcg by mouth once daily. 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] 01/17/2022 Red blood cell antibody positive [R76.8] 02/09/2022 History of intravenous drug abuse (HCC) [F19.11]02/16/2022 Smoker [F17.200] 02/16/2022 Rectal mass [K62.89] 02/16/2022 Rectal cancer (HCC) [C20] 02/21/2022 Severe protein-calorie malnutrition (HCC) [E43] 02/22/2022 Malaise and fatigue [R53.81, R53.83] 07/15/2022 Hypothyroidism unspecified [E03.9] 12/02/2021 DVT (deep venous thrombosis) (HCC) [I82.409] 10/28/2022 Encounter Status:Closed by MEGHAN PICHARDO on 11/21/22 [facility] 11-17-2022 CNPN Telephone ([facility]) -------- ESTRADAHOANG COLEY ([id number]) 1975 M Date Time Provider Department 11/17/22 ANA ENRIQUEZ [facility] During your visit today, we recorded the following information about you: Anthony Caraballo RN 11/17/2022 8:18 AM Signed Tumor board Allergies As of Date: 11/17/2022 (No Known Allergies) Date Reviewed: 11/12/2022 Reviewed by: Rowena Hammonds RN - Fully Assessed 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 - ibuprofen (MOTRIN) 200 mg tablet Take 2 tablets by mouth every 8 hours as needed for pain. - traMADol (ULTRAM) 50 mg tablet Take 1 tablet by mouth every 6 hours as needed for pain for up to 20 doses. - iv contrast (will be provided with radiology test) CT ABD/PEL -Inject, intravenously, once for 1 dose.No IV access, insert saline lock prior to the beginning of sedation, infusion, injection of imaging exam. Discontinue saline lock post exam. If Pt. has a central line or IVAD, may access for administration according to line specific nursing protocol. Once exam is complete flush line and de-access according to line specific nursing protocol in the CT contrast administration guidelines link. - enteric contrast (will be provided with radiology test) For CT ABD/PEL W IVCON Routine order Administer, As Directed One Time Only, via Oral, Rectal, both Oral and Rectal, Enteric Tube, Stoma or Indwelling Catheter, Enteric Contrast as designated per enteric contrast guidelines - buPROPion XL (WELLBUTRIN XL) 300 mg 24 hr tablet Take 1 tablet by mouth once daily. Take wellbutrin 150 mg tablet daily for 5 days before starting 300 mg dose daily - prochlorperazine (COMPAZINE) 10 mg tablet Take 1 tablet by mouth every 6 hours as needed. - nicotine (NICODERM) 21 mg/24 hr Apply 1 Patch as directed every 24 hours. - ondansetron (ZOFRAN) 8 mg tablet Take 1 tablet by mouth every 8 hours as needed for nausea/vomiting. - loratadine (CLARITIN) 10 mg tablet Take 10 mg by mouth once daily. - atorvastatin (LIPITOR) 10 mg tablet Take 10 mg by mouth once daily. - acetaminophen (TYLENOL) 500 mg tablet Take 2 tablets by mouth every 6 hours. - lactobacillus rhamnosus (CULTURELLE) 10 billion cell capsule Take 1 capsule by mouth once daily. - levothyroxine (SYNTHROID) 125 mcg tablet Take 125 mcg by mouth once daily. Facility-Administered Medications as of 11/17/2022 - perflutren lipid microspheres 1.3 mL in NaCl (PF) 0.9% 10 mL injection (DEFINITY) - sodium chloride 0.9 % (flush) 10 mL (BD POSIFLUSH) Problem List As Of Date 11/17/2022 Noted Resolved History of endocarditis [Z86.79] 01/17/2022 Severe tricuspid regurgitation [I07.1] 01/17/2022 Abnormality of right ventricle of heart [Q20.8] 01/17/2022 Red blood cell antibody positive [R76.8] 02/09/2022 History of intravenous drug abuse (HCC) [F19.11]02/16/2022 Smoker [F17.200] 02/16/2022 Rectal mass [K62.89] 02/16/2022 Rectal cancer (HCC) [C20] 02/21/2022 Severe protein-calorie malnutrition (HCC) [E43] 02/22/2022 Malaise and fatigue [R53.81, R53.83] 07/15/2022 Hypothyroidism unspecified [E03.9] 12/02/2021 DVT (deep venous thrombosis) ([facility]) [I82.409] 10/28/2022 Encounter Status:Closed by ANTHONY CARABALLO on 11/17/22 [facility] 11-16-2022 CNPN Telephone ([facility]) -------- HOANG WHITE ([id number]) 1975 M Date Time Provider Department 11/16/22 ANA ENRIQUEZ [facility] During your visit today, we recorded the following information about you: Ketty Randy 11/16/2022 11:59 AM Signed Patient called in and has post-op questions/surgical concerns. Patient had surgery on with Dr. Enriquez on 11/07/22. Contact# [phone] Anthony Caraballo RN 11/16/2022 12:54 PM Signed Returned call and left voice message. Allergies As of Date: 11/16/2022 (No Known Allergies) Date Reviewed: 11/12/2022 Reviewed by: Rowena Hammonds RN - Fully Assessed Reason for Visit: Patient Question [3860] Prescriptions as of 11/17/2022 - enoxaparin (LOVENOX) 40 mg/0.4 mL Inject 0.4 mL subcutaneously once daily for 21 days. - ibuprofen (MOTRIN) 200 mg tablet Take 2 tablets by mouth every 8 hours as needed for pain. - traMADol (ULTRAM) 50 mg tablet Take 1 tablet by mouth every 6 hours as needed for pain for up to 20 doses. - iv contrast (will be provided with radiology test) CT ABD/PEL -Inject, intravenously, once for 1 dose.No IV access, insert saline lock prior to the beginning of sedation, infusion, injection of imaging exam. Discontinue saline lock post exam. If Pt. has a central line or IVAD, may access for administration according to line specific nursing protocol. Once exam is complete flush line and de-access according to line specific nursing protocol in the CT contrast administration guidelines link. - enteric contrast (will be provided with radiology test) For CT ABD/PEL W IVCON Routine order Administer, As Directed One Time Only, via Oral, Rectal, both Oral and Rectal, Enteric Tube, Stoma or Indwelling Catheter, Enteric Contrast as designated per enteric contrast guidelines - buPROPion XL (WELLBUTRIN XL) 300 mg 24 hr tablet Take 1 tablet by mouth once daily. Take wellbutrin 150 mg tablet daily for 5 days before starting 300 mg dose daily - prochlorperazine (COMPAZINE) 10 mg tablet Take 1 tablet by mouth every 6 hours as needed. - nicotine (NICODERM) 21 mg/24 hr Apply 1 Patch as directed every 24 hours. - ondansetron (ZOFRAN) 8 mg tablet Take 1 tablet by mouth every 8 hours as needed for nausea/vomiting. - loratadine (CLARITIN) 10 mg tablet Take 10 mg by mouth once daily. - atorvastatin (LIPITOR) 10 mg tablet Take 10 mg by mouth once daily. - acetaminophen (TYLENOL) 500 mg tablet Take 2 tablets by mouth every 6 hours. - lactobacillus rhamnosus (CULTURELLE) 10 billion cell capsule Take 1 capsule by mouth once daily. - levothyroxine (SYNTHROID) 125 mcg tablet Take 125 mcg by mouth once daily. 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.8] 01/17/2022 Red blood cell antibody positive [R76.8] 02/09/2022 History of intravenous drug abuse (HCC) [F19.11]02/16/2022 Smoker [F17.200] 02/16/2022 Rectal mass [K62.89] 02/16/2022 Rectal cancer (HCC) [C20] 02/21/2022 Severe protein-calorie malnutrition (HCC) [E43] 02/22/2022 Malaise and fatigue [R53.81, R53.83] 07/15/2022 Hypothyroidism unspecified [E03.9] 12/02/2021 DVT (deep venous thrombosis) ([facility]) [I82.409] 10/28/2022 Encounter Status:Closed by ANTHONY CARABALLO on 11/17/22 [facility] CNDSon 11-12-2022 CNDS HNO ID: [id number] Author: Diego Osorio MD Service: Colorectal Author Type: Resident Type: Discharge Summary Filed: 11/12/2022 9:44 AM Note Text: -------- Attestation signed by Ana Enriquez MD at 11/14/2022 11:08 AM [facility] STAFF PHYSICIAN NOTE OF PERSONAL INVOLVEMENT IN CARE I have reviewed the discharge summary documented by the resident and I personally participated in the rubin components. I have confirmed and edited as necessary, the PFSH and ROS obtained by others. I have discussed the case and management of the patient's care. Ana Enriquez MD Date of Service: November 12, 2022 -------- DISCHARGE SUMMARY PATIENT NAME: Hoang White ADMISSION DATE: 11/07/2022 DISCHARGE DATE: 11/12/2022 ATTENDING PHYSICIAN: Ana Enriquez MD Code Status: Not on file Highest Readmission Risk Score: 9 The 30 day readmissions risk score is derived from an internally validated risk model which evaluates patient level characteristics, utilization history, medication orders and lab results up until the day of discharge. Patients with a score of 40 or above are considered highest risk for readmission. Specific patient level drivers will be listed at the bottom of the summary. CONSULTING TEAMS DURING HOSPITALIZATION: Anesthesiology: Pain Management Treatment Team: Attending Provider: Ana Enriquez MD REASON FOR HOSPITALIZATION: Robotic LAR with DLI DIAGNOSIS: Principal Problem: Rectal cancer (HCC) POA: Yes Active Problems: Severe protein-calorie malnutrition (HCC) POA: Yes Resolved Problems: * No resolved hospital problems. * OPERATIONS DURING HOSPITALIZATION: Robotic Assisted Low Anterior Resection with Colorectal Anastomosis and Diverting Loop Ileostomy PROCEDURES DURING HOSPITALIZATION: EKG HOSPITAL COURSE: 47year old male with history of rectal cancer s/p neoadjuvant chemo/RT who presented for planned low anterior resection with diverting loop ileostomy for definitive surgical management of his rectal cancer. Patient tolerated the procedure well and was transferred to the regular nursing floor post operatively. During his post operative course, his diet was advanced as tolerated as he began to have ileostomy function. His pain management was complicated due to his history of substance abuse so the pain management team was consulted for assistance. He had bilateral TAP block catheters placed and his pain control with managed with multimodal pain management minimizing the use of narcotics. He had issues with delirium/withdrawal on 11/11 after medication changes were made however after stopping the medications his delirium resolved and patient recognized and was apologetic for his behavior. The patient self removed his TAP block catheters on 11/11 and his LES drain was pulled as well. On the day of discharge, he was afebrile and hemodynamically stable, he was tolerating a diet without issues, having good ileostomy function, he was voiding without issues, ambulating, pain was controlled on oral pain meds. Transitions of Care Critical Issues: SPECIALIST FOLLOW-UP: Colorectal Surgery LABS AND PROCEDURES PENDING AT DISCHARGE: No pending results. PATIENT CONDITION AT DISCHARGE: Stable DISCHARGE DISPOSITION: Home with Self Care Discharge Physical Exam: VITAL SIGNS: BP 121/70 Pulse (!) 58 Temp 36.8 ?C (98.2 ?F) (Oral) Resp 17 Ht 172.7 cm (5' 8 ) Wt 64.9 kg (143 lb) SpO2 97% BMI 21.74 kg/m? GENERAL: Alert, no distress, cooperative EYES: PERRLA, EOMI LUNGS: Lungs clear to auscultation, Good diaphragmatic excursion, CARDIAC: RRR ABDOMEN: Soft, nontender and non distended, ileostomy with gas and stool EXTREMITIES: Extremities normal, no deformities, edema, clubbing or skin discoloration. Good capillary refill. NEURO: Gait normal. Reflexes normal and symmetric. Sensation grossly intact, Cranial nerves II-XII intact INFORMATION PROVIDED TO PATIENT: WOUND/SURGICAL SITE CARE: Leave open to air DIET: Resume pre-hospital diet ACTIVITY: Resume pre-hospital activity Lifting is restricted to: 10lbs May bathe and shower No driving while on narcotics May use stairs ALLERGIES No Known Allergies DISCHARGE MEDICATION: Current Discharge Medication List START taking these medications enoxaparin (LOVENOX) 40 mg Inject 40 mg subcutaneously once daily. Qty: 8.4 mL Refills: 0 ibuprofen (MOTRIN) 400 mg Take 400 mg by mouth every 8 hours as needed for pain. Qty: 90 tablet Refills: 1 traMADol (ULTRAM) 50 mg Take 50 mg by mouth every 6 hours as needed for pain. Qty: 20 tablet Refills: 0 Associated Diagnoses:Acute post-operative pain CONTINUE these medications which have NOT CHANGED buPROPion XL (WELLBUTRIN XL) 300 mg Take 300 mg by mouth once daily. Take wellbutrin 150 mg tablet daily for 5 da (more content not included)... [facility] CONSULTon 11-12-2022 CONSULT HNO ID: [id number] Author: Jess Walton RN Service: Wound/Ostomy Author Type: Registered Nurse Type: Consults Filed: 11/12/2022 10:11 AM Note Text: ANCILLARY OSTOMY CARE PROGRESS NOTE SERVICE DATE: 11/12/2022 SERVICE TIME: 10:09 AM Ostomy care follow up: Currently, the patient has no new ostomy needs and is independent with care. He is established with [facility] for ostomy supplies. He was provided with ostomy supplies at discharge should he need them. Ostomy care will sign off. SIGNATURE: Jess Walton RN PATIENT NAME: Hoang White DATE: November 12, 2022 TIME: 10:09 AM [facility] CONSULT PROGon 11-12-2022 CONSULT PROG HNO ID: [id number] Author: Chidi Penaloza PA-C Service: Pain Management Author Type: Physician Scheduler Maintenance Type: Consult Progress Note Filed: 11/12/2022 9:18 AM Note Text: PERIPHERAL NERVE CATHETER PROGRESS NOTE PATIENT NAME: Hoang White SERVICE DATE: 11/12/2022 SERVICE TIME: 8:57 AM ASSESSMENT Hoang White is a 47 year old male with hx rectal CA who is POD# 5, S/P robotic Low Anterior Resection with Colorectal Anastomosis, Diverting Loop ileostomy; Flexible Sigmoidoscopy. Mr. White is resting in bed, apparently the BTAPS were removed yesterday - I do not see note for removal. Patient reports his pain is well controlled at this time with current regimen. He is alert and oriented in NAD. Apparently patient had issue with delirium vs withdrawal yesterday evening likely due to medication Dr Waite evaluation yesterday 11/11/22 with recommendations made and medication adjusted. -Repeat EKG to reassess QTC once more calm -Recommend psych consultation for history of polysubstance abuse in the setting of acute hyperactive delirium -Please avoid benzodiazepines and anticholinergics given his hyperactive delirium PLAN/Recs: Suboxone 2-0.5 mg SL Q 12 h Tylenol 1000 mg Q 6 PO Motrin 400 mg Q 8 PO Ultram 25-50 mg Q 6 PO The plan was discussed in detail with patient +/- family, bedside RN, APMS staff and primary service, who expressed agreement, understanding and comfort with the plan. Thank you for including us in his care. Please call us with any questions or concerns. Pain appears well controlled at this time- BTAPS have been removed APMS will sign off please reconsult if needed. SUBJECTIVE CHIEF COMPLAINT: TAP catheter evaluation and placement PRIMARY SERVICE: Colorectal INTERVAL HPI: Hoang White is a 47 year old male who is POD 5 S/P robotic Low Anterior Resection with Colorectal Anastomosis, Diverting Loop ileostomy; Flexible Sigmoidoscopy. Acute pain management was consulted for TAP catheters. Resumed Suboxone home dose, pain regimen ordered Pain level is 5 at rest 8 with ambulation on a scale of 0-10. Is the patient tolerating Physical Therapy?: OOB Pain at surgical site? ache Character: sore Duration: intermittent Radiation: No Relieved: improving Is patient satisfied with pain control: yes with current changes Overnight Events: as above Overnight Pain Interventions: as above Current Facility-Administered Medications Medication Dose Route Frequency buPROPion XL 300 mg tab(s) (WELLBUTRIN XL) 300 mg ORAL DAILY levothyroxine (SYNTHROID) tab(s) 125 mcg 125 mcg ORAL DAILY (6 AM) atorvastatin 10 mg tab(s) (LIPITOR) 10 mg ORAL AT BEDTIME lactobacillus rhamnosus 10 billion cell (CULTURELLE) capsule 1 capsule ORAL DAILY enoxaparin 40 mg injection (LOVENOX) 40 mg SUBCUTANEOUS q 24 HR ondansetron (PF) 4 mg injection (ZOFRAN) 4 mg INTRAVENOUS q 6 H PRN acetaminophen 1,000 mg tab(s) (TYLENOL) 1,000 mg ORAL q 6 H ibuprofen 400 mg tab(s) (MOTRIN) 400 mg ORAL q [address] 40 mg tab(s) (PROTONIX) 40 mg ORAL DAILY (6 AM) naloxone 0.1 mg injection (NARCAN) 0.1 mg INTRAVENOUS q 2 MIN PRN NaCl 0.9% iv infusion 5-30 mL/hr INTRAVENOUS CONTINUOUS lactated ringers 250-500 mL iv bolus 250-500 mL INTRAVENOUS PRN traMADol 25-50 mg tab(s) (ULTRAM) 25-50 mg ORAL q 6 H PRN buprenorphine-nalOXone SL 2-0.5 mg 2 tablet (SUBOXONE) 2 tablet SUBLINGUAL BID haloperidol lactate 2 mg short-acting injection (HALDOL) 2 mg INTRAMUSCULAR q 6 H PRN OBJECTIVE: PHYSICAL EXAM: Patient Vitals for the past 3 hrs: BP Temp Temp src Pulse Resp SpO2 11/12/22 0738 121/70 36.8 ?C (98.2 ?F) Oral (!) 58 17 97 % Affect: awake and alert, calm General Impression: appears comfortable Catheters to abd have been removed. Respiratory Exam: Respirations: Breathing appears normal Thoracostomy tube?: No Gastrointestinal Exam: Abdomen: incision sites clean dry and intact NG?: No DATA: Lab Results Hemoglobin 12.1 11/09/2022 Hematocrit 35.0 11/09/2022 Platelet Count 167 11/09/2022 SIGNATURE: Chidi Penaloza PA-C PATIENT NAME: Hoang White DATE: November 12, 2022 TIME: 8:57 AM PAGER/CONTACT #: AP [phone] [facility] CONSULT PROGon 11-11-2022 CONSULT PROG HNO ID: [id number] Author: Fe Olvera APRN.FILE CONVERSION OPERATOR Service: Pain Management Author Type: Nurse Practitioner Type: Consult Progress Note Filed: 11/11/2022 4:05 PM Note Text: PERIPHERAL NERVE CATHETER PROGRESS NOTE PATIENT NAME: Hoang White SERVICE DATE: 11/11/2022 SERVICE TIME: 09:29 M ASSESSMENT Hoang White is a 47 year old male with hx rectal CA who is POD# 4, S/P robotic Low Anterior Resection with Colorectal Anastomosis, Diverting Loop ileostomy; Flexible Sigmoidoscopy. Mr. White is resting in bed, he states that withdrawal feeling subsided. He is AAOX3, conversing well. We had a length discussion about pain regimen, all questions answered. Patient is in agreement with plan. 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 All prescriptions have been APPROPRIATELY filled. No suspicious activity was identified. 11/10/2022 by Fe Olvera APRN.FILE CONVERSION OPERATOR Home dose Suboxone 8-2 mg FILM Q 12h PLAN/Recs: Resume home dose Suboxone 8-2mg SL Q 12 h Continue Acetaminophen 1000 mg PO Q 6 h while inpatient Continue Gabapentin 300mg TID Estimated Creatinine Clearance: 100 mL/min (based on SCr of 0.82 mg/dL). (Recommend pt continue Gabapentin for at least 3 month then reassess, instructed pt to follow up with PCP ) - please discharge with a month supply Decreased Tizanidine to 4 mg for muscle spasms TID with holding parameters - may continue at time of discharge BID for 30 days titrate to off Increased L TAP to 0/10/30/2 continue R TAP at 0/6/30/2, will likely bolus and remove TAPS tomorrow (Sat) morning Ordered Tramadol 25-50 mg PO Q 6 H PRN for moderate to severe pain - pt utilized in the past w/o any issues The plan was discussed in detail with patient +/- family, bedside RN, APMS staff and primary service, who expressed agreement, understanding and comfort with the plan. Thank you for including us in his care. Please call us with any questions or concerns. APMS will continue to follow. SUBJECTIVE CHIEF COMPLAINT: TAP catheter evaluation and placement PRIMARY SERVICE: Colorectal INTERVAL HPI: Hoang White is a 47 year old male who is POD 4 S/P robotic Low Anterior Resection with Colorectal Anastomosis, Diverting Loop ileostomy; Flexible Sigmoidoscopy. Acute pain management was consulted for TAP catheters. Resumed Suboxone home dose, pain regimen ordered Pain level is 5 at rest 8 with ambulation on a scale of 0-10. Is the patient tolerating Physical Therapy?: OOB Pain at surgical site? Describes as tightness/aching Character: tightness Duration: consistent Radiation: No Relieved: improving Is patient satisfied with pain control: yes with current changes Overnight Events: None Overnight Pain Interventions: no Allergy: ALLERGIES No Known Allergies MEDICATIONS: Adjuvant Pain Medication: See below. Current Facility-Administered Medications Medication Dose Route Frequency buPROPion XL 300 mg tab(s) (WELLBUTRIN XL) 300 mg ORAL DAILY levothyroxine (SYNTHROID) tab(s) 125 mcg 125 mcg ORAL DAILY (6 AM) atorvastatin 10 mg tab(s) (LIPITOR) 10 mg ORAL AT BEDTIME lactobacillus rhamnosus 10 billion cell (CULTURELLE) capsule 1 capsule ORAL DAILY enoxaparin 40 mg injection (LOVENOX) 40 mg SUBCUTANEOUS q 24 HR ondansetron (PF) 4 mg injection (ZOFRAN) 4 mg INTRAVENOUS q 6 H PRN acetaminophen 1,000 mg tab(s) (TYLENOL) 1,000 mg ORAL q 6 H gabapentin 300 mg cap(s) (NEURONTIN) 300 mg ORAL q 8 H ibuprofen 400 mg tab(s) (MOTRIN) 400 mg ORAL q [address] 40 mg tab(s) (PROTONIX) 40 mg ORAL DAILY (6 AM) naloxone 0.1 mg injection (NARCAN) 0.1 mg INTRAVENOUS q 2 MIN PRN NaCl 0.9% iv infusion 5-30 mL/hr INTRAVENOUS CONTINUOUS lactated ringers 250-500 mL iv bolus 250-500 mL INTRAVENOUS PRN ropivacaine nerve block 0.2% (2 mg/mL) - 200 mL PERIPHERAL NERVE CATHETER CONTINUOUS ropivacaine nerve block 0.2% (2 mg/mL) - 200 mL PERIPHERAL NERVE CATHETER CONTINUOUS tiZANidine 6 mg tab(s) (ZANAFLEX) 6 mg ORAL TID buprenorphine-nalOXone SL 8-2 mg 1 tablet (SUBOXONE) 1 tablet SUBLINGUAL q 12 H traMADol 25-50 mg tab(s) (ULTRAM) 25-50 mg ORAL q 6 H PRN OBJECTIVE: PHYSICAL EXAM: BP 143/80 Pulse 62 Temp 36.7 ?C (98.1 ?F) (Oral) Resp 16 Ht 172.7 cm (5' 8 ) Wt 64.9 kg (143 lb) SpO2 96% BMI 21.74 kg/m? Affect: awake and alert, calm General Impression: appears comfortable Catheter sites are clean, non-tender, and dressing intact. Respiratory Exam: Respirations: Breathing appears normal Thoracostomy tube?: No Gastrointestinal Exam: Abdomen: Stoma pink, LES bulb intact, incision sites clean dry and intact NG?: No DATA: Lab Results Component Latest Ref Rng AND Units 11/09/2022 Glucose 74 - 99 mg/dL 98 BUN 9 - 24 mg/dL 14 Creatinine 0.73 - 1.22 mg/dL 0.82 Sodium 136 - 144 mmol/L 140 Potassium 3.7 - 5.1 mmol/L 4.2 Chloride 97 - 105 mmo (more content not included)... [facility] NURSING PROGon 11-11-2022 NURSING PROG HNO ID: [id number] Author: Miriam Parker RN Service: Nursing Author Type: Registered Nurse Type: Nursing Progress Note Filed: 11/11/2022 6:34 PM Note Text: 1500 Patient agreed to get OOB and ambulate around the room and get to the chair. Patient states this is the best I have felt Per patient pain is 3/10. Pt sat up in the chair less than 30mins. Once patient was assisted back to bed, patient became very angry, cussing at this nurse and kept repeating that he wants to go home. This is a new mental status change for patient. FAIZAN Clark was updated regarding patients change. 1700 Patient complaining of pain. Refusing any and all medications and treatment at this time. Pt is very paranoid about anything we are giving him currently, saying we are messing up his head and we were injecting him with medications through the TAP blocks (were removed) that are making him crazy . 1820 fastener technologist on the floor to attempt to do EKG pt refused because he thought the tech was a telescope maintenance, asking fastener technologist to lift up his shirt to show him he's not wearing a wire. PCNA in patients room to attempt and he ripped all stickers off because he thought he was going to get zapped . [facility] CONSULT PROGon 11-10-2022 CONSULT PROG HNO ID: [id number] Author: Fe Olvera APRN.TAHIRA Service: Pain Management Author Type: Nurse Practitioner Type: Consult Progress Note Filed: 11/10/2022 4:14 PM Note Text: PERIPHERAL NERVE CATHETER PROGRESS NOTE PATIENT NAME: Hoang White SERVICE DATE: 11/10/2022 SERVICE TIME: 09:02 M ASSESSMENT Hoang White is a 47 year old male with hx rectal CA who is POD# 3, S/P robotic Low Anterior Resection with Colorectal Anastomosis, Diverting Loop ileostomy; Flexible Sigmoidoscopy. Acute pain management was consulted yesterday for TAP catheters placement. Today APMS asked to manage pain regimen Mr. White is resting in bed, he reports feeling like he is coming out of his skin and feeling withdrawal from Suboxone. He is angry and does not want to talk at this time. 10:30 am this provider return to pt's room, we had a brief discussion of restarting Suboxone in a safe manner PDMP website checked and validated. All prescriptions have been APPROPRIATELY filled. No suspicious activity was identified. 11/10/2022 by Fe Olvera APRN.TAHIRA Home dose Suboxone 8-2 mg FILM Q 12h PLAN/Recs: Subutex 5mg SL given once, pt tolerated well post 1 hr Suboxone 4-2mg SL given with mild improvement of withdrawal - Second 4-2mg dose given with significant improvement of withdrawal Continue Suboxone 4-2mg SL Q 6 h with holding parameters - goal after withdrawal and pain is well controlled will transition to home dose Suboxone Continue Acetaminophen 1000 mg PO Q 6 h while inpatient Continue Gabapentin 300mg TID Estimated Creatinine Clearance: 100 mL/min (based on SCr of 0.82 mg/dL). DC Flexeril Added Tizanidine 4mg for muscle spasms TID with holding parameters Increased Taps to 0/8/30/2 each The plan was discussed in detail with patient +/- family, bedside RN, APMS staff and primary service, who expressed agreement, understanding and comfort with the plan. Thank you for including us in his care. Please call us with any questions or concerns. APMS will continue to follow. SUBJECTIVE CHIEF COMPLAINT: TAP catheter evaluation and placement PRIMARY SERVICE: Colorectal INTERVAL HPI: Hoang White is a 47 year old male who is POD 2 S/P robotic Low Anterior Resection with Colorectal Anastomosis, Diverting Loop ileostomy; Flexible Sigmoidoscopy. Acute pain management was consulted for TAP catheters. Pain level is 5 at rest NA with ambulation on a scale of 0-10. Is the patient tolerating Physical Therapy?: not yet Pain at surgical site? Describes as tightness Character: tightness Duration: consistent Radiation: No Relieved: improving Is patient satisfied with pain control: yes with current changes Overnight Events: None Overnight Pain Interventions: no Allergy: ALLERGIES No Known Allergies MEDICATIONS: Adjuvant Pain Medication: See below. Current Facility-Administered Medications Medication Dose Route Frequency buPROPion XL 300 mg tab(s) (WELLBUTRIN XL) 300 mg ORAL DAILY levothyroxine (SYNTHROID) tab(s) 125 mcg 125 mcg ORAL DAILY (6 AM) atorvastatin 10 mg tab(s) (LIPITOR) 10 mg ORAL AT BEDTIME lactobacillus rhamnosus 10 billion cell (CULTURELLE) capsule 1 capsule ORAL DAILY enoxaparin 40 mg injection (LOVENOX) 40 mg SUBCUTANEOUS q 24 HR ondansetron (PF) 4 mg injection (ZOFRAN) 4 mg INTRAVENOUS q 6 H PRN acetaminophen 1,000 mg tab(s) (TYLENOL) 1,000 mg ORAL q 6 H gabapentin 300 mg cap(s) (NEURONTIN) 300 mg ORAL q 8 H ibuprofen 400 mg tab(s) (MOTRIN) 400 mg ORAL q [address] 40 mg tab(s) (PROTONIX) 40 mg ORAL DAILY (6 AM) naloxone 0.1 mg injection (NARCAN) 0.1 mg INTRAVENOUS q 2 MIN PRN NaCl 0.9% iv infusion 5-30 mL/hr INTRAVENOUS CONTINUOUS lactated ringers 250-500 mL iv bolus 250-500 mL INTRAVENOUS PRN ropivacaine nerve block 0.2% (2 mg/mL) - 200 mL PERIPHERAL NERVE CATHETER CONTINUOUS ropivacaine nerve block 0.2% (2 mg/mL) - 200 mL PERIPHERAL NERVE CATHETER CONTINUOUS buprenorphine-nalOXone SL 2-0.5 mg 1 tablet (SUBOXONE) 1 tablet SUBLINGUAL NOW tiZANidine 4 mg tab(s) (ZANAFLEX) 4 mg ORAL TID buprenorphine-nalOXone SL 2-0.5 mg 2 tablet (SUBOXONE) 2 tablet SUBLINGUAL q 6 H OBJECTIVE: PHYSICAL EXAM: BP 131/77 Pulse 70 Temp 36.7 ?C (98.1 ?F) (Oral) Resp 16 Ht 172.7 cm (5' 8 ) Wt 64.9 kg (143 lb) SpO2 99% BMI 21.74 kg/m? Affect: awake and alert agitated earlier - calmer now General Impression: appears tired Catheter sites are clean, non-tender, and dressing intact. Respiratory Exam: Respirations: Breathing appears normal Thoracostomy tube?: No Gastrointestinal Exam: Abdomen: Stoma pink, LES bulb intact, incision sites clean dry and intact NG?: No DATA: Lab Results Component Latest Ref Rng AND Units 11/09/2022 Glucose 74 - 99 mg/dL 98 BUN 9 - 24 mg/dL 14 Creatinine 0.73 - 1.22 mg/dL 0.82 Sodium 136 - 144 mmol/L 140 Potassium 3.7 - 5.1 mmol/L 4.2 C (more content not included)... [facility] NURSING PROGon 11-10-2022 NURSING PROG HNO ID: [id number] Author: Niharika Gaspar, RN Service: ? Author Type: Registered Nurse Type: Nursing Progress Note Filed: 11/10/2022 6:58 AM Note Text: Nursing note: 2337: colorectal progress note states kirkpatrick can be D/C at midnight but there is no order. Text page sent to [facility] regarding kirkpatrick. 2355: order added for kirkpatrick removal at 0000 0000: patient refusing to have kirkpatrick removed until morning. This RN educated patient about the importance of kirkpatrick removal and the need for voiding on his own, but patient is still refusing. [facility] notified. 0655: patient called this RN in the room and states that he feels that he is starting to withdrawal and needs medication. Text page sent to green team requesting medication and to assess patient. 0658: surgery at bedside [facility] Basic metabolic 2000 panelon 11-09-2022 Anion gap [Moles/Vol] 10 mmol/L Normal - [facility] Comment on above: Order Comment: Speci men Type: BLOOD SPECIMEN Ordering Facility: [facility] Address: [address] [place] [id number] Performed By: #### 2 4321-2, 26580-7 #### [facility] CLIA [id number] [address] [place] [address] [place] Calcium [Mass/Vol] 8.7 mg/dL Normal 8.5-10.2 [facility] Comment on above: Order Comment: Speci men Type: BLOOD SPECIMEN Ordering Facility: [facility] Address: [address] [address] Performed By: #### 2 4321-2, #### [facility] CLIA [id number] [address] [place] [address] [place] Chloride [Moles/Vol] 106 mmol/L High 97-105 [facility] Comment on above: Order Comment: Speci men Type: BLOOD SPECIMEN Ordering Facility: [facility] Address: [address] [place] [address] Performed By: #### 2 2, #### [facility] CLIA [id number] [address] [place] [address] [place] CO2 [Moles/Vol] 24 mmol/L Normal 22-30 [facility] Comment on above: Order Comment: Speci men Type: BLOOD SPECIMEN Ordering Facility: [facility] Address: [address] [place] [address] Performed By: #### 2 2, #### [facility] CLIA [id number] [address] [place] [address] [place] Creatinine [Mass/Vol] 0.82 mg/dL Normal 0.73-1.22 [facility] Comment on above: Order Comment: Speci men Type: BLOOD SPECIMEN Ordering Facility: [facility] Address: [address] [place] [address] Performed By: #### 2 2, #### [facility] CLIA [id number] [address] [place] [address] [place] ESTIMATED GLOMERULAR FILTRATION RATE 108 mL/min/1.73m??? Normal >=60 [facility] Comment on above: Order Comment: Speci men Type: BLOOD SPECIMEN Ordering Facility: [facility] Address: [address] [place], [place] [id number] Result Comment: Tanya mated Glomerular Filtration Rate (eGFR) is calculated using the 2020 CKD-EPI creatinine equation. This equation utilizes serum creatinine, sex, and age as parameters. The creatinine assay has traceable calibration to isotope dilution-mass spectrometry. Refer to KDIGO guidelines for clinical interpretation. In patients with unstable renal function, e.g. those with acute kidney injury, the eGFR may not accurately reflect actual GFR. Performed By: #### 2 432-, #### [facility] CLIA [id number] [place] [address] [place] Glucose [Mass/Vol] 98 mg/dL Normal 74-99 [facility] Comment on above: Order Comment: Gerry ibrahim Type: BLOOD SPECIMEN Ordering Facility: [facility] Address: [address] [address] Result Comment: The [place] Diabetes Association (ADA) provides guidance for cutoff values for fasting glucose and random glucose. The ADA defines fasting as no caloric intake for at least 8 hours. Fasting plasma glucose results between 100 to 125 mg/dL indicate increased risk for diabetes (prediabetes). Fasting plasma glucose results greater than or equal to 126 mg/dL meet the criteria for diagnosis of diabetes. In the absence of unequivocal hyperglycemia, results should be confirmed by repeat testing. In a patient with classic symptoms of hyperglycemia or hyperglycemic crisis, random plasma glucose results greater than or equal to 200 mg/dL meet the criteria for diagnosis of diabetes. Reference: Standards of Medical Care in Diabetes 2016, [place] [employer]. Diabetes Care. 2016.39(Suppl 1). Performed By: #### 2 4320-11, #### [facility] CLIA [id number] [place] [address] [place] Potassium [Moles/Vol] 4.2 mmol/L Normal 3.7-5.1 [facility] Comment on above: Order Comment: Gerry ibrahim Type: BLOOD SPECIMEN Ordering Facility: [facility] Address: [address] [address] Performed By: #### 2 432-, #### [facility] CLIA [id number] [address] [place] [place] [address] [place] Sodium [Moles/Vol] 140 mmol/L Normal 136-144 [facility] Comment on above: Order Comment: Speci men Type: BLOOD SPECIMEN Ordering Facility: [facility] Address: [address] [address] Performed By: #### 2 4321-2, #### [facility] CLIA [id number] [place] [address] [place] Urea nitrogen [Mass/Vol] 14 mg/dL Normal 9-24 [facility] Comment on above: Order Comment: Speci men Type: BLOOD SPECIMEN Ordering Facility: [facility] Address: [address] [address] Performed By: #### 2 432-2, #### [facility] CLIA [id number] [address] [place] [address] [place] CBC W Auto Differential pane l (Bld)on 11-09-2022 Basophils (Bld) [#/Vol] 0.03 10*3/uL Normal <0.11 [facility] Comment on above: Order Comment: Speci men Type: BLOOD SPECIMEN Ordering Facility: [facility] Address: [address] [place] [address] Performed By: #### 5 7021-8 #### [facility] CLIA [id number] [address] [place] [address] [place] Basophils/100 WBC (Bld) 0.3 % Normal [facility] Comment on above: Order Comment: Speci men Type: BLOOD SPECIMEN Ordering Facility: [facility] Address: [address] [address] Performed By: #### 5 7021-8 #### [facility] CLIA [id number] [address] [place] [address] [place] Differential cell count method Nom (Bld) Auto Normal [facility] Comment on above: Order Comment: Speci men Type: BLOOD SPECIMEN Ordering Facility: [facility] Address: [address] [place] [address] Performed By: #### 5 7021-8 #### [facility] CLIA [id number] [place] [address] [place] Eosinophils (Bld) [#/Vol] 0.10 10*3/uL Normal <0.46 [facility] Comment on above: Order Comment: Speci men Type: BLOOD SPECIMEN Ordering Facility: [facility] Address: [address] [place] [address] Performed By: #### 5 7021-8 #### [facility] CLIA [id number] [address] [place] [address] [place] Eosinophils/100 WBC (Bld) 1.0 % Normal [facility] Comment on above: Order Comment: Speci men Type: BLOOD SPECIMEN Ordering Facility: [facility] Address: [address] [place] [address] Performed By: #### 5 7021-8 #### [facility] CLIA [id number] [address] [place] [address] [place] Erythrocyte distribution width (RBC) [Ratio] 11.9 % Normal 11.5-15.0 [facility] Comment on above: Order Comment: Speci men Type: BLOOD SPECIMEN Ordering Facility: [facility] Address: [address] [place] [address] Performed By: #### 5 7021-8 #### [facility] CLIA [id number] [address] [place] [address] [place] Hematocrit (Bld) [Volume fraction] 35.0 % Low 39.0-51.0 [facility] Comment on above: Order Comment: Speci men Type: BLOOD SPECIMEN Ordering Facility: [facility] Address: [address] [place] [address] Performed By: #### 5 7021-8 #### [facility] CLIA [id number] [address] [place] [address] [place] Hemoglobin (Bld) [Mass/Vol] 12.1 g/dL Low 13.0-17.0 [facility] Comment on above: Order Comment: Speci men Type: BLOOD SPECIMEN Ordering Facility: [facility] Address: [address] [place] [address] Performed By: #### 5 7021-8 #### [facility] CLIA [id number] [address] [place] [address] [place] Immature granulocytes (Bld) [#/Vol] 0.04 10*3/uL Normal <0.10 [facility] Comment on above: Order Comment: Speci men Type: BLOOD SPECIMEN Ordering Facility: [facility] Address: [address] [place] [address] Performed By: #### 5 7021-8 #### [facility] CLIA [id number] [address] [place] [address] [place] Immature granulocytes/100 WBC (Bld) 0.4 % Normal [facility] Comment on above: Order Comment: Speci men Type: BLOOD SPECIMEN Ordering Facility: [facility] Address: [address] [place] [address] Performed By: #### 5 7021-8 #### [facility] CLIA [id number] [address] [place] [address] [place] Lymphocytes (Bld) [#/Vol] 0.62 10*3/uL Low 1.00-4.00 [facility] Comment on above: Order Comment: Speci men Type: BLOOD SPECIMEN Ordering Facility: [facility] Address: [address] [place] [address] Performed By: #### 5 7021-8 #### [facility] CLIA [id number] [address] [place] [address] [place] Lymphocytes/100 WBC (Bld) 6.4 % Normal [facility] Comment on above: Order Comment: Speci men Type: BLOOD SPECIMEN Ordering Facility: [facility] Address: [address] [place] [address] Performed By: #### 5 7021-8 #### [facility] CLIA [id number] [address] [place] [address] [place] MCH (RBC) [Entitic mass] 33.7 pg Normal 26.0-34.0 [facility] Comment on above: Order Comment: Speci men Type: BLOOD SPECIMEN Ordering Facility: [facility] Address: [address] [address] Performed By: #### 5 7021-8 #### [facility] CLIA [id number] [address] [place] [address] [place] MCHC (RBC) [Mass/Vol] 34.6 g/dL Normal 30.5-36.0 [facility] Comment on above: Order Comment: Speci men Type: BLOOD SPECIMEN Ordering Facility: [facility] Address: [address] [place] [address] Performed By: #### 5 7021-8 #### [facility] CLIA [id number] [address] [place] [address] [place] MCV (RBC) [Entitic vol] 97.5 fL Normal 80.0-100.0 [facility] Comment on above: Order Comment: Speci men Type: BLOOD SPECIMEN Ordering Facility: [facility] Address: [address] [place] [address] Performed By: #### 5 7021-8 #### [facility] CLIA [id number] [address] [place] [address] [place] Monocytes (Bld) [#/Vol] 0.62 10*3/uL Normal <0.87 [facility] Comment on above: Order Comment: Speci men Type: BLOOD SPECIMEN Ordering Facility: [facility] Address: [address] [place] [address] Performed By: #### 5 7021-8 #### [facility] CLIA [id number] [address] [place] [address] [place] Monocytes/100 WBC (Bld) 6.4 % Normal [facility] Comment on above: Order Comment: Speci men Type: BLOOD SPECIMEN Ordering Facility: [facility] Address: [address] [place] [address] Performed By: #### 5 7021-8 #### [facility] CLIA [id number] [address] [place] [address] [place] Neutrophils (Bld) [#/Vol] 8.25 10*3/uL High 1.45-7.50 [facility] Comment on above: Order Comment: Speci men Type: BLOOD SPECIMEN Ordering Facility: [facility] Address: [address] [address] Performed By: #### 5 7021-8 #### [facility] CLIA [id number] [address] [place] [address] [place] Neutrophils/100 WBC (Bld) 85.5 % Normal [facility] Comment on above: Order Comment: Speci men Type: BLOOD SPECIMEN Ordering Facility: [facility] Address: [address] [address] Performed By: #### 5 7021-8 #### [facility] CLIA [id number] [address] [place] [address] [place] Nucleated RBC (Bld) [#/Vol] 10*3/uL Normal <0.01 [facility] Comment on above: Order Comment: Speci men Type: BLOOD SPECIMEN Ordering Facility: [facility] Address: [address] [address] Performed By: #### 5 7021-8 #### [facility] CLIA [id number] [address] [place] [address] [place] Nucleated RBC/100 WBC (Bld) [Ratio] 0.0 /100 WBC Normal [facility] Comment on above: Order Comment: Speci men Type: BLOOD SPECIMEN Ordering Facility: [facility] Address: [address] [place] [address] Performed By: #### 5 7021-8 #### [facility] CLIA [id number] [address] [place] [address] [place] Platelet mean volume (Bld) [Entitic vol] 10.0 fL Normal 9.0-12.7 [facility] Comment on above: Order Comment: Speci men Type: BLOOD SPECIMEN Ordering Facility: [facility] Address: [address] [place] [address] Performed By: #### 5 7021-8 #### [facility] CLIA [id number] [address] [place] [address] [place] Platelets (Bld) [#/Vol] 167 10*3/uL Normal 150-400 [facility] Comment on above: Order Comment: Speci men Type: BLOOD SPECIMEN Ordering Facility: [facility] Address: [address] [place] [address] Performed By: #### 5 7021-8 #### [facility] CLIA [id number] [address] [place] [address] [place] RBC (Bld) [#/Vol] 3.59 10*6/uL Low 4.20-6.00 [facility] Comment on above: Order Comment: Speci men Type: BLOOD SPECIMEN Ordering Facility: [facility] Address: [address] [place] [address] Performed By: #### 5 7021-8 #### [facility] CLIA [id number] [address] [place] [address] [place] WBC (Bld) [#/Vol] 9.66 10*3/uL Normal 3.70-11.00 [facility] Comment on above: Order Comment: Speci men Type: BLOOD SPECIMEN Ordering Facility: [facility] Address: [address] [place] [address] Performed By: #### 5 7021-8 #### [facility] CLIA [id number] [address] [place] [address] CONSULTon 11-09-2022 CONSULT HNO ID: [id number] Author: Hussain Aldridge RN Service: Wound/Ostomy Author Type: Registered Nurse Type: Consults Filed: 11/09/2022 2:53 PM Note Text: STOMA CARE POST-OPERATIVE ASSESSMENT AND PATIENT EDUCATION Patient Name: Hoang White Date: November 09, 2022 Time: 2:47 PM ET Care Outcome: ostomy assessment and pouch change ET's Next Scheduled Visit: TBD STOMA ASSESSMENT Stoma type: Loop ileostomy Diameter: 1 07/15 Location: LUQ Protrusion: Budded Mucosal condition and color: [place] and moist. Jona: No Mucocutaneous Junction: Intact Output: Yes: Flatus and Effluent Peristomal Skin: Clear and intact Location of Skin Impairment: NA Treatment of Skin Impairment: NA Supportive Tissue: Firm Pouching System: Coloplast Sensura one piece cut to fit drainable pouch (#80133) with a moldable ring Time Increment: 45 minutes Comments: NA Supplies Given: Yes: ostomy supplies for home going PATIENT EDUCATION Skin Care Topic: Prevention Observations READINESS TO LEARN Cognitive Ability: Alert and oriented Motivation to Learn: Disinterested / avoidant Family Support: Unable to assess - Family not present Instruction Provided To: Patient Patient Learns Best By: Multiple Methods Factors Affecting Learning: Emotional Factors: Angry Physical Limitations Affecting Learning: Pain LEARNING RESPONSE Diagnosis- Skin Impairment: NA Method of Instruction: Verbal instruction Instructional Aids Used: Hand-out(s) Patient/Family Response: The pt is already independent with ostomy care due to having an ostomy prior to this procedure FOLLOW-UP PLAN: Complete Supplemental Material Provided to Patient: Patient Education print outs: Referral Recommendation: Home Health Agency Signature: Hussain Aldridge RN This is an electronically created document. IF PRINTED, PLEASE DO NOT REMOVE FROM THE CHART OR MODIFY PRINTED COPY. [facility] CONSULT PROGon 11-09-2022 CONSULT PROG HNO ID: [id number] Author: Lois Ureña DO Service: Pain Management Author Type: Resident Type: Consult Progress Note Filed: 11/09/2022 1:15 PM Note Text: -------- Attestation signed by Zara Davison DO at 11/17/2022 7:32 AM ATTENDING PHYSICIAN NOTE OF PERSONAL INVOLVEMENT IN CARE: I have personally seen and examined the patient and performed the medical decision-making components. I have reviewed the resident physician documentation and verified the findings in the note as written. Signature: Zara Davison Date: 11/17/2022 Time: 7:32 AM -------- PERIPHERAL NERVE CATHETER PROGRESS NOTE PATIENT NAME: Hoang White SERVICE DATE: 11/09/2022 SERVICE TIME: 12:59 PM ASSESSMENT Hoang White is a 47 year old male who is POD# 2, S/P robotic Low Anterior Resection with Colorectal Anastomosis, Diverting Loop ileostomy; Flexible Sigmoidoscopy. Acute pain management was consulted for TAP catheters placement. Discussed risks and benefits TAP nerve block and catheter placement. PLAN - placed bilateral TAP catheters today - continue catheter infusion with Ropivacaine 0.2% 6 ml q 30 minutes for both sides - pain medication management per colorectal team SUBJECTIVE CHIEF COMPLAINT: TAP catheter evaluation and placement PRIMARY SERVICE: Colorectal INTERVAL HPI: Hoang White is a 47 year old male who is POD 2 S/P robotic Low Anterior Resection with Colorectal Anastomosis, Diverting Loop ileostomy; Flexible Sigmoidoscopy. Acute pain management was consulted for TAP catheters. Pain level is 8 at rest 10 with ambulation on a scale of 0-10. Is the patient tolerating Physical Therapy?: No - pain Pain at surgical site? Yes, at multiple port sites Character: aching, tenderness, and cramping Duration: consistent Radiation: No Relieved: No Is patient satisfied with pain control: No Overnight Events: None Overnight Pain Interventions: no, patient refuses all opioid. Allergy: ALLERGIES No Known Allergies MEDICATIONS: Adjuvant Pain Medication: See below. Current Facility-Administered Medications Medication Dose Route Frequency buPROPion XL 300 mg tab(s) (WELLBUTRIN XL) 300 mg ORAL DAILY levothyroxine (SYNTHROID) tab(s) 125 mcg 125 mcg ORAL DAILY (6 AM) atorvastatin 10 mg tab(s) (LIPITOR) 10 mg ORAL AT BEDTIME lactobacillus rhamnosus 10 billion cell (CULTURELLE) capsule 1 capsule ORAL DAILY enoxaparin 40 mg injection (LOVENOX) 40 mg SUBCUTANEOUS q 24 HR ondansetron (PF) 4 mg injection (ZOFRAN) 4 mg INTRAVENOUS q 6 H PRN acetaminophen 1,000 mg tab(s) (TYLENOL) 1,000 mg ORAL q 6 H gabapentin 300 mg cap(s) (NEURONTIN) 300 mg ORAL q 8 H keTORolac 15 mg injection (TORADOL) 15 mg INTRAVENOUS q 6 H Followed by [START ON 11/10/2022] ibuprofen 400 mg tab(s) (MOTRIN) 400 mg ORAL q [address] 40 mg tab(s) (PROTONIX) 40 mg ORAL DAILY (6 AM) naloxone 0.1 mg injection (NARCAN) 0.1 mg INTRAVENOUS q 2 MIN PRN cyclobenzaprine 5 mg tab(s) (FLEXERIL) 5 mg ORAL TID PRN oxyCODONE IR 5-10 mg tab(s) (ROXICODONE) 5-10 mg ORAL q 4 H PRN HYDROmorphone 0.2 mg injection (DILAUDID) 0.2 mg INTRAVENOUS q 2 H PRN NaCl 0.9% iv infusion 5-30 mL/hr INTRAVENOUS CONTINUOUS lactated ringers 250-500 mL iv bolus 250-500 mL INTRAVENOUS PRN ropivacaine nerve block 0.2% (2 mg/mL) - 200 mL PERIPHERAL NERVE CATHETER CONTINUOUS ropivacaine nerve block 0.2% (2 mg/mL) - 200 mL PERIPHERAL NERVE CATHETER CONTINUOUS OBJECTIVE: PHYSICAL EXAM: Patient Vitals for the past 3 hrs: BP Pulse Resp SpO2 11/09/22 1140 120/67 64 16 100 % 11/09/22 1135 118/72 65 16 100 % 11/09/22 1130 118/75 61 16 100 % 11/09/22 1125 116/66 68 16 100 % 11/09/22 1120 121/69 67 16 100 % Affect: awake and alert General Impression: appears uncomfortable Catheter site is clean, non-tender, and dressing intact. Sensory exam: Bilateral limb: intact Motor Exam: Bilateral limb: intact Respiratory Exam: Respirations: Breathing appears normal Thoracostomy tube?: No Gastrointestinal Exam: Abdomen: TTP in all 4 quadrants, LES bulb intact, incision sites clean dry and intact NG?: No DATA: Lab Results Hemoglobin 12.1 11/09/2022 Hematocrit 35.0 11/09/2022 Platelet Count 167 11/09/2022 Discussed the patient?s progress and plan of care with Dr. Davison.. SIGNATURE: Lois Ureña DO PATIENT NAME: Hoang White DATE: November 09, 2022 TIME: 12:59 PM PAGER/CONTACT #: [facility] [phone] [facility] 11-09 Magnesium [Mass/Vol] 1.8 mg/dL Normal 1.7-2.3 [facility] Comment on above: Order Comment: Speci men Type: BLOOD SPECIMEN Ordering Facility: [facility] Address: [place] [address] Performed By: #### 2 4321-2, 15524-0 #### [facility] CLIA [id number] [facility] NURSING PROGon 11-09-2022 NURSING PROG HNO ID: [id number] Author: Lisa Mccormick RN Service: Nursing Author Type: Registered Nurse Type: Nursing Progress Note Filed: 11/09/2022 11:40 AM Note Text: B/L TAP nerve block catheters. Dr. Davison and Dr. Ureña Patient verbalized understanding of nerve block procedure. 1124 Sign in complete. 1126 Time out complete. 1140 Sign out complete. Patient tolerated nerve block procedure very well. No sedation given other than local. Report given to bedside nurse. [facility] PT EDon 11-09-2022 PT ED HNO ID: [id number] Author: Ilda Orozco DTR Service: Nutrition Therapy Author Type: Dredge Engineer Type: Patient Education Filed: 11/09/2022 2:17 PM Note Text: NUTRITION THERAPY PATIENT EDUCATION SERVICE DATE: 11/09/2022 SERVICE TIME: 11:30 AM TOPIC: Diet: GI Soft diet with ostomy LEARNING ASSESSMENT Individuals Assessed: Patient Preferred Learning Method: Verbal Instruction and Written Instruction Barriers to Learning: None Evident LEARNING RESPONSE Instruction Provided to: Patient Patient / Family Response: Verbalizes Understanding Method of Instruction: Written instruction - handouts Verbal instruction Material(s) Provided to Patient: Nutrition Therapy instruction material: Eating Right and Avoiding Dehydration after Bowel Surgery Follow-Up Plan: Patient instructed to call with any further issues Referral (Recommendation): Nutrition - Inpatient MNT Billing: $ Routine Care : 1-15 minutes SIGNATURE: Ilda Orozco DTR PATIENT NAME: Hoang White DATE: November 09, 2022 TIME: 2:16 PM PAGER: [facility] Basic metabolic 2000 panelon 11-08-2022 Anion gap [Moles/Vol] 13 mmol/L Normal 9-18 [facility] Comment on above: Order Comment: Speci men Type: BLOOD SPECIMEN Ordering Facility: [facility] Address: [address] [address] Performed By: #### 2 4320-2, #### [facility] CLIA [id number] [address] [place] [address] [place] Calcium [Mass/Vol] 8.9 mg/dL Normal 8.5-10.2 [facility] Comment on above: Order Comment: Speci men Type: BLOOD SPECIMEN Ordering Facility: [facility] Address: [address] [place] [address] Performed By: #### 2 4320-11, #### [facility] CLIA [id number] [address] [place] [address] [place] Chloride [Moles/Vol] 102 mmol/L Normal 97-105 [facility] Comment on above: Order Comment: Speci men Type: BLOOD SPECIMEN Ordering Facility: [facility] Address: [address] [address] Performed By: #### 2 4320-11, #### [facility] CLIA [id number] [address] [place] [address] [place] CO2 [Moles/Vol] 23 mmol/L Normal 22-30 [facility] Comment on above: Order Comment: Speci men Type: BLOOD SPECIMEN Ordering Facility: [facility] Address: [address] [address] Performed By: #### 2 2, #### [facility] CLIA [id number] [address] [place] [address] [place] Creatinine [Mass/Vol] 0.78 mg/dL Normal 0.73-1.22 [facility] Comment on above: Order Comment: Speci men Type: BLOOD SPECIMEN Ordering Facility: [facility] Address: [address] [address] Performed By: #### 2 2, #### [facility] CLIA [id number] [place] [address] [place] ESTIMATED GLOMERULAR FILTRATION RATE 109 mL/min/1.73m??? Normal >=60 [facility] Comment on above: Order Comment: Gerry ibrahim Type: BLOOD SPECIMEN Ordering Facility: [facility] Address: [address] [place] [address] Result Comment: Tanya mated Glomerular Filtration Rate (eGFR) is calculated using the 2020 CKD-EPI creatinine equation. This equation utilizes serum creatinine, sex, and age as parameters. The creatinine assay has traceable calibration to isotope dilution-mass spectrometry. Refer to KDIGO guidelines for clinical interpretation. In patients with unstable renal function, e.g. those with acute kidney injury, the eGFR may not accurately reflect actual GFR. Performed By: #### 2 4321-2, #### [facility] CLIA [id number] [place] [address] [place] Glucose [Mass/Vol] 140 mg/dL High 74-99 [facility] Comment on above: Order Comment: Gerry ibrahim Type: BLOOD SPECIMEN Ordering Facility: [facility] Address: [address] [place] [address] Result Comment: The [place] [employer] Association (ADA) provides guidance for cutoff values for fasting glucose and random glucose. The ADA defines fasting as no caloric intake for at least 8 hours. Fasting plasma glucose results between 100 to 125 mg/dL indicate increased risk for diabetes (prediabetes). Fasting plasma glucose results greater than or equal to 126 mg/dL meet the criteria for diagnosis of diabetes. In the absence of unequivocal hyperglycemia, results should be confirmed by repeat testing. In a patient with classic symptoms of hyperglycemia or hyperglycemic crisis, random plasma glucose results greater than or equal to 200 mg/dL meet the criteria for diagnosis of diabetes. Reference: Standards of Medical Care in Diabetes 2016, [place] [employer] Association. Diabetes Care. 2016.39(Suppl 1). Performed By: #### 2 4321-2, #### [facility] CLIA [id number] [address] [place] [address] [place] Potassium [Moles/Vol] 4.0 mmol/L Normal 3.7-5.1 [facility] Comment on above: Order Comment: Speci men Type: BLOOD SPECIMEN Ordering Facility: [facility] Address: [address] [address] Performed By: #### 2 4321-2, #### [facility] CLIA [id number] [address] [place] [address] [place] Sodium [Moles/Vol] 138 mmol/L Normal 136-144 [facility] Comment on above: Order Comment: Speci men Type: BLOOD SPECIMEN Ordering Facility: [facility] Address: [address] [address] Performed By: #### 2 1-2, #### [facility] CLIA [id number] [address] [place] [address] [place] Urea nitrogen [Mass/Vol] 11 mg/dL Normal 9-24 [facility] Comment on above: Order Comment: Speci men Type: BLOOD SPECIMEN Ordering Facility: [facility] Address: [address] [address] Performed By: #### 2 4320-2, #### [facility] CLIA [id number] [address] [place] [address] [place] CBC W Auto Differential pane l (Bld)on 11-08-2022 Basophils (Bld) [#/Vol] 10*3/uL Normal <0.11 [facility] Comment on above: Order Comment: Speci men Type: BLOOD SPECIMEN Ordering Facility: [facility] Address: [address] [address] Performed By: #### 5 7021-8 #### [facility] CLIA [id number] [address] [place] [address] [place] Basophils/100 WBC (Bld) 0.1 % Normal [facility] Comment on above: Order Comment: Speci men Type: BLOOD SPECIMEN Ordering Facility: [facility] Address: [address] [place] [address] Performed By: #### 5 7021-8 #### [facility] CLIA [id number] [address] [place] [address] [place] Differential cell count method Nom (Bld) Auto Normal [facility] Comment on above: Order Comment: Speci men Type: BLOOD SPECIMEN Ordering Facility: [facility] Address: [address] [place] [address] Performed By: #### 5 7021-8 #### [facility] CLIA [id number] [address] [place] [address] [place] Eosinophils (Bld) [#/Vol] 10*3/uL Normal <0.46 [facility] Comment on above: Order Comment: Speci men Type: BLOOD SPECIMEN Ordering Facility: [facility] Address: [address] [place] [address] Performed By: #### 5 7021-8 #### [facility] CLIA [id number] [address] [place] [address] [place] Eosinophils/100 WBC (Bld) 0.0 % Normal [facility] Comment on above: Order Comment: Speci men Type: BLOOD SPECIMEN Ordering Facility: [facility] Address: [address] [place] [address] Performed By: #### 5 7021-8 #### [facility] CLIA [id number] [address] [place] [address] [place] Erythrocyte distribution width (RBC) [Ratio] 11.9 % Normal 11.5-15.0 [facility] Comment on above: Order Comment: Speci men Type: BLOOD SPECIMEN Ordering Facility: [facility] Address: [address] [place] [address] Performed By: #### 5 7021-8 #### [facility] CLIA [id number] [address] [place] [address] [place] Hematocrit (Bld) [Volume fraction] 38.7 % Low 39.0-51.0 [facility] Comment on above: Order Comment: Speci men Type: BLOOD SPECIMEN Ordering Facility: [facility] Address: [address] [place] [address] Performed By: #### 5 7021-8 #### [facility] CLIA [id number] [address] [place] [place] [place] [address] [place] Hemoglobin (Bld) [Mass/Vol] 13.8 g/dL Normal 13.0-17.0 [facility] Comment on above: Order Comment: Speci men Type: BLOOD SPECIMEN Ordering Facility: [facility] Address: [address] [address] Performed By: #### 5 7021-8 #### [facility] CLIA [id number] [address] [place] [address] [place] Immature granulocytes (Bld) [#/Vol] 0.12 10*3/uL High <0.10 [facility] Comment on above: Order Comment: Speci men Type: BLOOD SPECIMEN Ordering Facility: [facility] Address: [address] [address] Performed By: #### 5 7021-8 #### [facility] CLIA [id number] [address] [place] [address] [place] Immature granulocytes/100 WBC (Bld) 1.0 % Normal [facility] Comment on above: Order Comment: Speci men Type: BLOOD SPECIMEN Ordering Facility: [facility] Address: [address] [address] Performed By: #### 5 7021-8 #### [facility] CLIA [id number] [address] [place] [address] [place] Lymphocytes (Bld) [#/Vol] 0.33 10*3/uL Low 1.00-4.00 [facility] Comment on above: Order Comment: Speci men Type: BLOOD SPECIMEN Ordering Facility: [facility] Address: [address] [address] Performed By: #### 5 7021-8 #### [facility] CLIA [id number] [address] [place] [address] [place] Lymphocytes/100 WBC (Bld) 2.7 % Normal [facility] Comment on above: Order Comment: Speci men Type: BLOOD SPECIMEN Ordering Facility: [facility] Address: [address] [address] Performed By: #### 5 7021-8 #### [facility] CLIA [id number] [address] [place] [address] [place] [facility] MCH (RBC) [Entitic mass] 33.7 pg Normal 26.0-34.0 [facility] Comment on above: Order Comment: Speci men Type: BLOOD SPECIMEN Ordering Facility: [facility] Address: [address] [place] [address] Performed By: #### 5 7021-8 #### [facility] CLIA [id number] [address] [place] [address] [place] MCHC (RBC) [Mass/Vol] 35.7 g/dL Normal 30.5-36.0 [facility] Comment on above: Order Comment: Speci men Type: BLOOD SPECIMEN Ordering Facility: [facility] Address: [address] [place] [address] Performed By: #### 5 7021-8 #### [facility] CLIA [id number] [address] [place] [address] MCV (RBC) [Entitic vol] 94.6 fL Normal 80.0-100.0 [facility] Comment on above: Order Comment: Speci men Type: BLOOD SPECIMEN Ordering Facility: [facility] Address: [address] [place] [address] Performed By: #### 5 7021-8 #### [facility] CLIA [id number] [address] [place] [address] Monocytes (Bld) [#/Vol] 0.64 10*3/uL Normal <0.87 [facility] Comment on above: Order Comment: Speci men Type: BLOOD SPECIMEN Ordering Facility: [facility] Address: [address] [place] [address] Performed By: #### 5 7021-8 #### [facility] CLIA [id number] [address] [place] [address] Monocytes/100 WBC (Bld) 5.2 % Normal [facility] Comment on above: Order Comment: Speci men Type: BLOOD SPECIMEN Ordering Facility: [facility] Address: [address] [place] [address] Performed By: #### 5 7021-8 #### [facility] CLIA [id number] [address] [place] [address] [place] Neutrophils (Bld) [#/Vol] 11.29 10*3/uL High 1.45-7.50 [facility] Comment on above: Order Comment: Speci men Type: BLOOD SPECIMEN Ordering Facility: [facility] Address: [address] [place] [address] Performed By: #### 5 7021-8 #### [facility] CLIA [id number] [address] [place] [address] [place] Neutrophils/100 WBC (Bld) 91.0 % Normal [facility] Comment on above: Order Comment: Speci men Type: BLOOD SPECIMEN Ordering Facility: [facility] Address: [address] [place] [address] Performed By: #### 5 7021-8 #### [facility] CLIA [id number] [address] [place] [address] [place] Nucleated RBC (Bld) [#/Vol] 10*3/uL Normal <0.01 [facility] Comment on above: Order Comment: Speci men Type: BLOOD SPECIMEN Ordering Facility: [facility] Address: [address] [place] [address] Performed By: #### 5 7021-8 #### [facility] CLIA [id number] [address] [place] [address] [place] Nucleated RBC/100 WBC (Bld) [Ratio] 0.0 /100 WBC Normal [facility] Comment on above: Order Comment: Speci men Type: BLOOD SPECIMEN Ordering Facility: [facility] Address: [address] [place] [address] Performed By: #### 5 7021-8 #### [facility] CLIA [id number] [address] [place] [address] [place] Platelet mean volume (Bld) [Entitic vol] 9.7 fL Normal 9.0-12.7 [facility] Comment on above: Order Comment: Speci men Type: BLOOD SPECIMEN Ordering Facility: [facility] Address: [address] [address] Performed By: #### 5 7021-8 #### [facility] CLIA [id number] [address] [place] [address] [place] Platelets (Bld) [#/Vol] 207 10*3/uL Normal 150-400 [facility] Comment on above: Order Comment: Speci men Type: BLOOD SPECIMEN Ordering Facility: [facility] Address: [address] [address] Performed By: #### 5 7021-8 #### [facility] CLIA [id number] [address] [place] [address] [place] RBC (Bld) [#/Vol] 4.09 10*6/uL Low 4.20-6.00 [facility] Comment on above: Order Comment: Speci men Type: BLOOD SPECIMEN Ordering Facility: [facility] Address: [address] [place] [address] Performed By: #### 5 7021-8 #### [facility] CLIA [id number] [address] [place] [address] [place] WBC (Bld) [#/Vol] 12.39 10*3/uL High 3.70-11.00 [facility] Comment on above: Order Comment: Speci men Type: BLOOD SPECIMEN Ordering Facility: [facility] Address: [address] [place] [address] Performed By: #### 5 7021-8 #### [facility] CLIA [id number] [address] [place] [address] [place] CONSULTon 11-08-2022 CONSULT HNO ID: [id number] Author: Hussain Aldridge RN Service: Wound/Ostomy Author Type: Registered Nurse Type: Consults Filed: 11/08/2022 3:06 PM Note Text: STOMA CARE POST-OPERATIVE ASSESSMENT AND PATIENT EDUCATION Patient Name: Hoang White Date: November 08, 2022 Time: 3:01 PM ET Care Outcome: ostomy intro education and assessment ET's Next Scheduled Visit: 11/09/22 anytime STOMA ASSESSMENT Stoma type: Loop ileostomy Diameter: not measured Location: LUQ Protrusion: Budded Mucosal condition and color: Red and moist. Jona: unable to assess d/t not changing the ostomy pouch today Mucocutaneous Junction: Not visible at this time Output: Yes: Flatus and Effluent Peristomal Skin: Other: not assessed Location of Skin Impairment: NA Treatment of Skin Impairment: NA Supportive Tissue: Semisoft Pouching System: Coloplast Flex 2 piece flat, but would like to switch to a Coloplast Sensura one piece cut to fit drainable pouch (#[id number]) with a Brava moldable barrier ring Time Increment: 30 minutes Comments: The pt is already independent with ostomy care Supplies Given: No PATIENT EDUCATION Skin Care Topic: Prevention Observations READINESS TO LEARN Cognitive Ability: Alert and oriented Motivation to Learn: Interested Family Support: High - Very involved in pt care Instruction Provided To: Significant Other Patient Learns Best By: Multiple Methods Factors Affecting Learning: None Physical Limitations Affecting Learning: None LEARNING RESPONSE Diagnosis- Skin Impairment: NA Method of Instruction: Individual instruction Written instruction - handouts Verbal instruction Instructional Aids Used: Hand-out(s) Patient/Family Response: Verbalizes understanding of: ostomy pouch care d/t having an ostomy prior to this procedure. However, the plan is to see him tomorrow for a pouch change to assess the peristomal tissue and fit him with a new pouch. FOLLOW-UP PLAN: Reassess Reinforce Supplemental Material Provided to Patient: Patient Education print outs: Referral Recommendation: Home Health Agency Signature: Hussain Aldridge RN This is an electronically created document. IF PRINTED, PLEASE DO NOT REMOVE FROM THE CHART OR MODIFY PRINTED COPY. Normal [facility] Magnesium SerPl-mCncon 11-08 Magnesium [Mass/Vol] 1.7 mg/dL Normal 1.7-2.3 [facility] Comment on above: Order Comment: Speci men Type: BLOOD SPECIMEN Ordering Facility: [facility] Address: [address] [place] [id number] Performed By: #### 2 4321-2, 75263-7 #### [facility] CLIA [id number] [address] [place] [address] [place] NURSING PROGon 11-08-2022 NURSING PROG HNO ID: [id number] Author: Macy Crews RN Service: ? Author Type: Registered Nurse Type: Nursing Progress Note Filed: 11/08/2022 6:47 PM Note Text: Other: Tolerated some clear liquids today, seen by ostomy consult, ileostomy started producing, les not really emptied ,little out; good UO from [facility], he wanted to be left alone to sleep, continue hourly checks. [facility] NURSING PROG HNO ID: [id number] Author: Macy Crews RN Service: ? Author Type: Registered Nurse Type: Nursing Progress Note Filed: 11/08/2022 9:23 AM Note Text: Other: VSS, alert, 95% RA, pain controlled with dilaudid microsoft access developer, diet advanced to clears, ileostomy intact has bowel sweat; patient asked to keep his door closed and when he's ready he'll get up, he knows what to do, call light in reach, continue to monitor. [facility] NURSING PROG HNO ID: [id number] Author: Kiah Kim RN Service: Nursing Author Type: Registered Nurse Type: Nursing Progress Note Filed: 11/07/2022 11:11 PM Note Text: Transfer Note: Patient transferred into room/unit PK330 in stable condition. Actions taken: No futher actions taken at this time. Will continue to monitor and check with patient. [facility] NUTRITIONon 11-08-2022 NUTRITION HNO ID: [id number] Author: Millie Lam RD Service: NST-Nutrition Support Team Author Type: Registered Dietitian Type: Nutrition Filed: 11/08/2022 3:53 PM Note Text: NUTRITION THERAPY INITIAL ASSESSMENT SERVICE DATE: 11/08/2022 SERVICE TIME: 3:50 PM Nutrition Assessment: Recommended Malnutrition Diagnosis: Severe Protein-Calorie Malnutrition In the context of: Chronic Illness or Injury Based on: Unintentional Weight Loss;Insufficient Energy Intake Nutrition Diagnosis: Problem: Increased nutrient needs Related to: Anorexia As evidenced by: Anorexia;Patient/family self-report;Medical condition;Procedure/surg mathieu;Weight loss;Imaging studies;Intake records Estimated kilocalorie needs: 4045-4978 kcal Calorie Calculation Method: 30-35 kcals/kg Estimated protein needs (grams): 98-130 gm protein Grams protein determined by: 1.5 - 2.0 g/kg Care Plan: Follow for diet advancement to goal Supplements: Ensure Max Monitor and Evaluation: Meet greater than 75% of estimated needs;Monitor fluid/electrolyte balance;Monitor labs, I/Os, vital signs, weight;Monitor bowel function HPI: 1 Day Post-Op : Robotic Low Anterior Resection with Colorectal Anastomosis, Diverting Loop ileostomy; Flexible Sigmoidoscopy Intake History: Nutrition Intake Prior to Admission: Less than 75% estimated energy needs greater than or equal to 1 month Current Nutrition Intake: 0-25% estimated energy needs (x 1 days) Current Intake Over time: (NPO and clears x 1 day) Pt states he had intakes and wt loss - had colostomy and needed to take Ensure to keep up with calories for nutrition Pt states wt was 185-190# and lost wt over about 1 year Will provide Ensure when diet advanced to full liquids and provide diet education Diet Orders (From admission, onward) Start Ordered 11/08/22 0915 DIET LIQUID START NOW Question: Liquid Diet Answer: CLEAR LIQUID 11/08/22 0905 11/08/22 0000 DIET SUPPLEMENTS START NOW Question Answer Comment Supplement 1 (19 years and up) IMPACT ADVANCED [employer]OV[employer] VANILLA Supplement 1 Frequency 7. BREAKFAST, LUNCH, DINNER Supplement 2 (19 years and up) GATORADE G2 GLACIER FREEZE Supplement 2 Frequency 2. AM SNACK Supplement 2 Frequency 4. PM SNACK Supplement 2 Frequency 6. NIGHT SNACK Feeding instructions for nursing Start when advanced to unlimited liquids or GI soft diet 11/07/22 8522 Anthropometrics: Height: 172.7 cm (5' 8 ) Weight: 64.9 kg (143 lb) Dosing Weight: 64.9 kg (143 lb 1.3 oz) Usual Weight: 86.2 kg (190 lb) (185-190#) 1 year ago per Pt Usual Weight Obtained From: Patient Body mass index is 21.74 kg/m?. Normal Weight change percentage over time: wt loss - 24% over 1 year - significant wt loss Physical Exam: Subcutaneous fat loss: Mild Muscle loss: Moderate Potential micronutrient deficiency: No deficiency identified Edema/Ascites: No edema GI Symptoms: Anorexia Ostomy Amount: Decreased Functional Status: Unable to assess Potential Signs of Inflammation: Chronic condition;Imaging studies;Acute post-operative;Leukocyto sis Colon Ca MNT Billing: $ Initial Assessment: 1-15 minutes SIGNATURE: Millie Lam RD PATIENT NAME: Hoang White DATE: November 08, 2022 TIME: 3:49 PM [facility] ANES POSTPROC EVALon 023 ANES POSTPROC EVAL HNO ID: [id number] Author: Pablito Valentin MD Service: Anesthesiology Author Type: Anesthesiologist Type: Anesthesia Postprocedure Evaluation Filed: 11/07/2022 9:58 PM Note Text: POST ANESTHESIA EVALUATION NOTE : 1975 Procedure Summary Date: 11/07/22 Room / Location: OR10 / [facility] Anesthesia Start: 1541 Anesthesia Stop: 2111 Procedure: ROBOTIC LAPAROSCOPIC PROCTECTOMY COMPLETE W/ ABDOMINOPERINEAL W/COLOSTOMY (Abdomen) Diagnosis: Rectal cancer (HCC) (Rectal cancer (HCC) [C20]) Surgeons: Ana Enriquez MD Responsible Provider: Pablito Valentin MD Anesthesia Type: general ASA Status: 3 Anesthesia Type: general Airway Type: ETT Last Vitals Vitals Value Taken Time BP 127/76 11/07/222144 Temp 36.6 ?C (97.9 ?F) 11/07/22 210 Pulse 59 11/07/222156 Resp 22 11/07/222156 SpO2 97 % 11/07/222156 Vitals shown include unvalidated device data. Post Anesthesia Patient Status Patient Evaluation: PACU. PACU/ICU Patient Condition: stable. Anticipated Disposition: inpatient floor planned admission. Neurological Status: aware and responsive. Pulmonary Status: breathing comfortably on room air Airway Control: returned to baseline unsupported. Cardiovascular Status: stable. Pain Management: clinically adequate - multimodal analgesia pain management approach Postoperative Hydration: acceptable. Intraoperative Events: no significant anesthesia events Recommendation: continue current plan of care and further care per PACU/ICU/floor team. Anesthesia Observations No Documentation SIGNATURE: Pablito Valentin MD PATIENT NAME: Hoang White DATE: November 07, 2022 TIME: 9:58 PM CSN: [id number] [facility] ANES PRE-OPon 11-07-2022 ANES PRE-OP HNO ID: [id number] Author: Pablito Valentin MD Service: Anesthesiology Author Type: Anesthesiologist Type: Anesthesia Preprocedure Evaluation Filed: 11/07/2022 2:32 PM Note Text: ANESTHESIOLOGY DAY OF SURGERY NOTE : 1975 Procedure Information Date/Time: 11/07/22 1400 Procedure: ROBOTIC LAPAROSCOPIC PROCTECTOMY COMPLETE W/ ABDOMINOPERINEAL W/COLOSTOMY Location: [facility] OR10 / [facility] OR Surgeons: Ana Enriquez MD Estimated body mass index is 20.22 kg/m? as calculated from the following: Height as of 10/28/22: 172.7 cm (5' 8 ). Weight as of 10/28/22: 60.3 kg (133 lb). Most recent hematocrit and potassium results: Hematocrit 43.0 10/28/2022 Potassium 4.1 10/28/2022 Relevant Problems CARDIO (+) DVT (deep venous thrombosis) (HCC) ENDO (+) Hypothyroidism unspecified NEURO-PSYCH (+) History of endocarditis (+) History of intravenous drug abuse (HCC) I - PHYSICAL EVALUATION AIRWAY Patient intubated: No. Tracheostomy tube not present Mallampati: II. TM distance: >3 FB. Neck ROM: full ROM without neurological symptoms. Mouth opening: adequate. Short neck: no. Thick neck: no Marx present: no DENTAL Dental findings: teeth intact. Dentures, upper: complete. Additional exam findings: yes. CARDIOVASCULAR Normal cardiovascular observations. Rhythm: regular Rate: normal PULMONARY Normal pulmonary observations. Breath sounds clear to auscultation. II - ANESTHESIA PLAN ASA Score: 3 Anesthetic Plan: general Airway type: ETT The patient is not a current smoker. NPO Status: adequate Anesthetic plan additional comments: Symptoms of Sleep Apnea: Denies Previous Anesthesia: No history of adverse event Family history of anesthetic problems: None Functional Capacity Assessment:Denies chest pain and SOB with exertion. Denies change in functional capacity. History of GERD: No Most recent lab results: Hemoglobin 14.6 10/28/2022 Hematocrit 43.0 10/28/2022 Potassium 4.1 10/28/2022 Platelet Count 237 10/28/2022 Creatinine (POCT) 0.89 10/28/2022 . [place] Monitoring Plan Monitoring plan: Standard ASA. Post Procedure Analgesic Plan Postoperative analgesic plan: parenteral or oral opioids and multimodal analgesia. Informed Consent Anesthetic risks, benefits, alternatives, personnel and consent discussed: yes. Patient / Responsible Libertarian agrees to proceed: yes Patient / Surrogate agrees to blood products: yes DNR status not reviewed with patient and/or family prior to surgery. Significant changes in the patient condition since the History and Physical, not otherwise documented in primary service progress note: no. Potential Anesthesia issues that may suggest increased risk of complications or contraindication to planned procedure: none. Vitals Value Taken Time BP 132/75 11/07/22 1236 Pulse 61 11/07/22 1236 Resp 16 11/07/22 1236 Temp 36.3 ?C (97.3 ?F) 11/07/22 1236 SpO2 100 % 11/07/22 1236 Facility-Administered Medications as of 11/07/2022 Medication Dose Route Frequency - heparin 5,000 Units injection 5,000 Units SUBCUTANEOUS ONCE - lidocaine 10 mg/mL (1 %) 1-2 mg injection (XYLOCAINE) 0.1-0.2 mL INTRADERMAL PRN - lactated ringers iv infusion 5-30 mL/hr INTRAVENOUS CONTINUOUS - NaCl 0.9% iv flush bag 20 mL INTRAVENOUS PRN - cefTRIAXone 2 g in D5W 100 mL Vial-Bag (ROCEPHIN) 2 g INTRAVENOUS Pre-Op Once - metroNIDAZOLE iv piggyback 500 mg in NaCl (iso-osmotic) 100 mL (FLAGYL) 500 mg INTRAVENOUS Pre-Op Once - [COMPLETED] alvimopan 12 mg cap(s) (ENTEREG) 12 mg ORAL Pre-Op Once - [COMPLETED] acetaminophen 1,000 mg tab(s) (TYLENOL) 1,000 mg ORAL Pre-Op Once - [COMPLETED] gabapentin 300 mg cap(s) (NEURONTIN) 300 mg ORAL Pre-Op Once Outpatient Medications as of 11/07/2022 Medication Sig - iv contrast (will be provided with radiology test) CT ABD/PEL -Inject, intravenously, once for 1 dose.No IV access, insert saline lock prior to the beginning of sedation, infusion, injection of imaging exam. Discontinue saline lock post exam. If Pt. has a central line or IVAD, may access for administration according to line specific nursing protocol. Once exam is complete flush line and de-access according to line specific nursing protocol in the CT contrast administration guidelines link. - enteric contrast (will be provided with radiology test) For CT ABD/PEL W IVCON Routine order Administer, As Directed One Time Only, via Oral, Rectal, both Oral and Rectal, Enteric Tube, Stoma or Indwelling Catheter, Enteric Contrast as designated per enteric contrast guidelines - buPROPion XL (WELLBUTRIN XL) 300 mg 24 hr tablet Take 1 tablet by mouth once daily. Take wellbutrin 150 mg tablet daily for 5 days before starting 300 mg dose daily - prochlorperazine (COMPAZINE) 10 mg tablet Take 1 tablet by mouth every 6 hours as needed. - nicotine (NICODERM) 21 mg/24 hr Apply 1 Patch as directed every 24 hours. - ondansetron (ZOFRAN) 8 mg (more content not included)... Normal [facility] BLOOD BANK COMMENTon 023 BLOOD BANK COMMENT See Comment Normal [facility] Comment on above: Order Comment: Speci men Type: BLOOD SPECIMENOrdering Facility: [facility] Address: [address] [place], [place] [id number] Result Comment: See physician's report under antibody interpretation 02.04.2022. Performed By: #### T [facility], [id number] ####[facility] BLOOD BANKCLIA [id number] [address] BRIEF OP NOTon 11-07-2022 BRIEF OP NOT HNO ID: [id number] Author: Diego Osorio MD Service: Colorectal Author Type: Resident Type: Brief Op Note Filed: 11/07/2022 9:13 PM Note Text: BRIEF OPERATIVE NOTE - COLORECTAL SURGERY Log ID: [id number] Surgery/Procedure Date: 11/07/2022 Incision/Procedure Start Time: 4:29 PM Incision Close/Procedure End Time: 8:48 PM Surgeon(s) and Scheduler Maintenance(s): Surgeon(s) and Role: * Ana Enriquez MD - Primary * Diego Osorio MD - Resident - Assisting No Additional Staff Procedures and Anesthesia: Procedure(s) and Anesthesia Type: Robotic Low Anterior Resection with Colorectal Anastomosis, Diverting Loop ileostomy; Flexible Sigmoidoscopy Stoma Type: Loop ileostomy Findings: 2x donuts intact, negative leak test, staple line hemostatic, gross margins negative Estimated Blood Loss: 125cc Specimens: Low anterior resection; distal margin Diagnosis Code(s): Pre-Op Diagnosis Codes: * Rectal cancer (HCC) [C20] Postop Diagnosis: Rectal Cancer Drains: Yes, 19Fr Bam Wound Classification: Class 3, operative wound contaminated with stoma closure Complications: None SIGNATURE: Diego Osorio MD PATIENT NAME: Hoang White DATE: November 07, 2022 TIME: 9:10 PM [facility] NURSING PROGon 11-07-2022 NURSING PROG HNO ID: [id number] Author: Rowena Joaquin RN Service: Nursing Author Type: Registered Nurse Type: Nursing Progress Note Filed: 11/07/2022 11:51 AM Note Text: PATIENT EDUCATION TOPIC: PROCEDURE / SURGERY: Pre-op Teaching: Logistics Protocols Complication Prevention PATIENT NAME: Hoang White PATIENT LOCATION: [facility] OR POOL/[facility] OR POOL READINESS TO LEARN COGNITIVE ABILITY: Alert and oriented MOTIVATION TO LEARN: Interested FAMILY SUPPORT: None - Unavailable/disintereste d INSTRUCTION PROVIDED TO: Patient PATIENT LEARNS BEST BY: Individual Instruction FACTORS AFFECTING LEARNING: None PHYSICAL LIMITATIONS AFFECTING LEARNING: None LEARNING RESPONSE DIAGNOSIS: ADULT: Well Adult PATIENT/FAMILY RESPONSE: Verbalizes understanding of: PRE-OPERATIVE INSTRUCTIONS-Correct action to take to follow pre-operative instructions METHOD OF INSTRUCTION: Individual instruction FOLLOW-UP PLAN: Complete - No need for follow-up INSTRUCTIONAL AIDS USED: NA SUPPLEMENTAL MATERIAL PROVIDED TO PATIENT: None REFERRAL (RECOMMENDATION): None Electronically Signed By: Rowena Joaquin [facility] OPERATIVE NOon 11-07-2022 OPERATIVE NO HNO ID: [id number] Author: Ana Enriquez MD Service: Colorectal Author Type: Physician Type: Operative Report Filed: 11/25/2022 6:21 PM Note Text: COLON AND RECTAL SURGERY OPERATIVE REPORT PATIENT NAME: Hoang White ADMISSION DATE: 11/07/2022 LOG ID: [id number] SURGERY/PROCEDURE DATE: 11/07/2022 INCISION/PROCEDURE START TIME: 4:29 PM INCISION CLOSE/PROCEDURE END TIME: 8:48 PM AGE: [age] year old SEX: male 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 UNDERWRITING(S): Surgeon(s) and Role: * Ana Enriquez MD - Primary * Diego Osorio MD - Resident - Assisting No Additional Staff ANESTHESIA: General PREOPERATIVE DIAGNOSIS (ES): Rectal Cancer Malignant Large Bowel Obstruction Attention to Colostomy POSTOPERATIVE DIAGNOSIS (ES): Rectal Cancer Malignant Large Bowel Obstruction Attention to Colostomy NAME OF OPERATION: Colostomy Takedown, Robotic Assisted Laparoscopic Proctosigmoidectomy (Low Anterior Resection) with Colorectal Anastomosis and Diverting Loop Ileostomy, Flexible Sigmoidoscopy INDICATIONS FOR PROCEDURE: Rectal Cancer Malignant Large Bowel Obstruction Attention to Colostomy OPERATIVE FINDINGS: Anterior upper rectal scar with tattoo proximal and distal. No liver or peritoneal surface disease. Low colorectal anastomosis without leak and hemostatic on flexible sigmoidoscopy. At least 2 cm distal margin obtained. Colostomy opening large in comparison to TI; fascial opening narrowed with figure of eight 0 Ethibond and skin narrowed with 2-0 Vicryl pursestring. DESCRIPTION OF PROCEDURE: The patient was brought to the operating room, placed under general anesthesia in the lithotomy position. The abdomen was prepped and draped in normal sterile fashion. The patient received appropriate preop antibiotics and DVT prophylaxis. A surgical time-out was performed. The proximal opening of the colostomy was sutured closed to prevent spillage. The left abdominal divided loop colostomy was taken down. An incision was made at the mucocutaneous junction and dissection was carried down until the abdomen was entered. The proximal and distal limbs were reduced into the abdomen. No adhesions to the abdominal wall were appreciated. A mini GelPort was placed through the colostomy site with an 8 mm trocar and the abdomen was insufflated. Four robotic 8 mm ports were placed diagonally from left upper to right lower quadrant under direct visualization. An 8 mm assist trocar was placed in the right mid abdomen under direct visualization. The liver and abdominal cavity were inspected and there was no evidence of metastatic disease. The patient was positioned in Trendelenburg with left side up, and the small bowel was positioned medially with visualization of the IMV. The robot was docked. The colonic mobilization was then commenced by incising the right aspect of the rectosigmoid mesentery at the level of the sacral promontory. The retroperitoneal fusion plane was entered and dissection was carried out in this plane laterally. The left ureter was identified and swept out of harm's way. The inferior mesenteric artery was then isolated and divided at its origin. Prior to dividing the vessel, the left ureter was confirmed to be safe from harm. The inferior mesenteric vein was then dissected away from the 4th portion of the duodenum, and divided at the inferior border of the pancreas. The remainder of the retroperitoneal dissection was continued laterally out beyond the colon in a cephalad direction above the apex of the left kidney. The lateral attachments of the sigmoid colon and descending colon were divided. The proximal sigmoid colon came down to the pelvis without tension. The retroperitoneum and vascular pedicles were then inspected. Hemostasis was obtained. The rectum was then mobilized. The rectal mobilization was commenced posteriorly in the mesorectal fascia plane, down to and beyond the curve of the sacrum. This was continued beyond the distal tattoo. The lateral attachments of the rectum were then divided. The middle rectal vessels and the lateral ligaments were divided bilaterally and this dissection commenced down to the pelvic floor. Anteriorly, the rectum was mobilized in the mesorectal fascia plane just posterior to the seminal vesicles down to the pelvic floor. Distal tattoo was visualized and there was adequate distal margin mobilized from this point. The robot was undocked and a Pfannenstiel incision was made with transverse division of the fascia. A wound protector was placed and the specimen was delivered. A point was chosen proximal to the colostomy site and proximal to the DEVAUGHN pedicle. The mesentery was divided between clamps with 0-Vicryl ties. Prior to ligating the marginal vessel, it was flashed and there was pulsatile arterial inflow. The colon was divided and the 28 EEA anvil was secured within the colon using a 2-0 PDS pursestring suture and (more content not included)... [facility] SARS-CoV-2 RNA Resp Ql FÉLIX+p robeon 11-07-2022 SARS-CoV-2 (COVID-19) RNA FÉLIX+probe Ql (Resp) COVID 19 RESULT: SARS-CoV-2 (Agent of COVID-19) Not Detected by RT-PCR or equivalent method. This test has been authorized by FDA under an Emergency Use Authorization (EUA). [facility] Comment on above: Performed By: #### 9 4500-6 ####[facility] LABORATORYCLIA [id number] [address] STATES OF [place] SURGICAL PATHOLOGYon 023 CASE REPORT [facility] Comment on above: Order Comment: Speci men Type: BLOOD SPECIMEN [facility]ing Facility: [facility] Address: [address] [place] [phone] Result Comment: Surg ical Pathology Report Case: [id number] Authorizing Provider: Ana Enriquez MD Collected: 11/07/2022 07:43 PM Ordering Location: [facility] Received: 11/08/2022 07:32 AM Operating Room Pathologist: Durga Malave MD Specimens: A) - COLON RESECTION, low anterior resection B) - MARGIN, distal margin Performed By: #### 5 7021-8 #### [facility] CLIA [id number] [address] [place] [address] CLINICAL HISTORY Normal [facility] Comment on above: Order Comment: Speci men Type: BLOOD SPECIMEN [facility]ing Facility: [facility] Address: [address] [place] [address] Result Comment: colo stomy takedown, robotic low anterior resection, flexible sigmoidoscopy, diverting loop ileostomy Pre-op diagnosis: Rectal cancer (HCC) [C20] Performed By: #### 5 7021-8 #### [facility] CLIA [id number] [address] [place] [address] FINAL DIAGNOSIS Normal [facility] Comment on above: Order Comment: Speci men Type: BLOOD SPECIMEN [facility]: [facility] Address: [address] [place] [address] Result Comment: A. S igmoid colon and rectum, low anterior resection: - Residual invasive adenocarcinoma (see synoptic report). - Fourteen lymph nodes, negative for malignancy (0/14). B. Additional distal margin, excision: - Segment of rectum with no diagnostic abnormality. JEL 11/10/2022 Performed By: #### 5 7021-8 #### [facility] CLIA [id number] [address] [place] [address] FINAL PERFORMING LAB Normal [facility] Comment on above: Order Comment: Speci men Type: BLOOD SPECIMEN [facility] Facility: [facility] Address: [address] [place] [address] Result Comment: Diag nostic interpretation performed at [facility], [address] [place] [address] CLIA# [id number] Manager Beauty: Viviana Boone M.D. Performed By: #### 5 7021-8 #### [facility] [id number] STATES OF [facility] GROSS DESCRIPTION Normal [facility] Comment on above: Order Comment: Speci men Type: BLOOD SPECIMEN Ordering Facility: [facility] Address: [address] [place] [phone] Result Comment: A. C OLON RESECTION Received in formalin designated low anterior resection is a segment of large bowel that measures 24 cm in length and ranges from 1.5 to 4 cm in circumference. The serosal surface is pink-dudley with an area of puckering on the anterior surface, above the anterior peritoneal reflection. Proximal to the area of puckering is an area of tattooing. Proximal to the area of tattooing is an area of defect that measures 3 cm in greatest dimension. The area of defect is located 2 cm from the proximal resection margin. The mesorectum is complete. The bowel is opened to reveal an area of ulceration that measures 1.5 x 1 x 0.2 cm. This area of ulceration is circumferential, stenotic, located entirely above the anterior peritoneal reflection, 20 cm from the proximal margin, 3 cm from the distal margin, 3 cm from the circumferential (radial) margin, and 10.5 cm from the mesenteric margin. Deep to the area of ulceration is marked fibrosis. There are multiple possible diverticula proximal to the ulcer that extend beyond the muscularis propria and into the pericolonic fat but do not perforate. Remaining bowel mucosa is slightly thickened with a wall measuring 1 cm. Yard Inspector sections are submitted as follows: A1 proximal margin perpendicular (inked orange) and distal margin perpendicular (inked blue), A2-A3 ulcer with posterior circumferential (radial) margin, bisected, A4-A5 ulcer with posterior circumferential (radial) margin, bisected, A6-A7 remaining ulcer with posterior circumferential (radial) margin, bisected (A2-A7 submitted in sequential order from distal to proximal), A8 mesenteric margin perpendicular (inked black), A9 possible diverticulum, A10 area of defect, A11 four intact possible lymph nodes, A12 four intact possible lymph nodes, A13 four intact possible lymph nodes, A14 four intact possible lymph nodes, A15 four intact possible lymph nodes, A16 two intact possible lymph nodes. WE November 08, 2022 10:04 AM Gross examination performed at [facility], [address] [place] [address] B. MARGIN Received in formalin designated distal margin donut that measures 0.6 cm in length and 1.6 cm in diameter. The mucosa is dudley-marcano. The specimen is serially sectioned and entirely submitted in one cassette. WE November 08, 2022 12:22 PM Gross examination performed at [facility], [address] [place] [address] Performed By: #### 5 7021-8 #### [facility] CLIA [id number] [address] [place] [address] [place] SYNOPTIC REPORT Normal [facility] Comment on above: Order Comment: Speci men Type: BLOOD SPECIMEN Ordering Facility: [facility] Address: [address] [place] [address] Result Comment: COLO N AND RECTUM: Resection, Including Transanal Disk Excision of Rectal Neoplasms COLON AND RECTUM, RESECTION - All Specimens 8th Edition - Protocol posted: 04/28/2021 SPECIMEN Procedure: Low anterior resection Macroscopic Evaluation of Mesorectum: Complete TUMOR Tumor Site: Rectum Rectal Tumor Location: Entirely above anterior peritoneal reflection Histologic Type: Adenocarcinoma Histologic Grade: G2, moderately differentiated Tumor Size: Greatest dimension (Centimeters): 0.7 cm Tumor Extent: Invades through muscularis propria into pericolorectal tissue Macroscopic Tumor Perforation: Not identified Lymphovascular Invasion: Not identified Perineural Invasion: Not identified Treatment Effect: Present, with residual cancer showing evident tumor regression, but more than single cells or rare small groups of cancer cells (partial response, score 2) MARGINS Margin Status for Invasive Carcinoma: All margins negative for invasive carcinoma Distance from Invasive Carcinoma to Radial (Circumferential) Margin: 30 mm Distance from Invasive Carcinoma to Distal Margin: 36 mm Margin Status for Non-Invasive Tumor: All margins negative for high-grade dysplasia / intramucosal carcinoma and low-grade dysplasia REGIONAL LYMPH NODES Regional Lymph Node Status: : All regional lymph nodes negative for tumor Number of Lymph Nodes Examined: 14 Tumor Deposits: Not identified PATHOLOGIC STAGE CLASSIFICATION (pTNM, AJCC 8th Edition) Reporting of pT, pN, and (when applicable) pM categories is based on information available to the pathologist at the time the report is issued. As per the AJCC (Chapter 1, 8th Ed.) it is the managing physician???s responsibility to establish the final pathologic stage based upon all pertinent information, including but potentially not limited to this pathology report. TNM Descriptors: y (post-treatment) pT Category: pT3 pN Category: pN0 Performed By: #### 5 7021-8 #### [facility] CLIA [id number] OF [place] TYPE + SCREENon 11-07-2022 ABO B Normal [facility] Comment on above: Order Comment: Speci men Type: BLOOD SPECIMENOrdering Facility: [facility] Address: [address] [place] [address] Performed By: #### T SCR, [id number] ####[facility] BLOOD BANKCLIA [id number] [address] HISTORICAL AB SCR STATUS Positive Abnormal [facility] Comment on above: Order Comment: Speci men Type: BLOOD SPECIMENOrdering Facility: [facility] Address: [address] [place] [address] Performed By: #### T SCR, [id number] ####[facility] BLOOD BANKCLIA [id number] [place] [address] [place] [facility] Rh Nom (Bld) Positive Normal [facility] Comment on above: Order Comment: Speci men Type: BLOOD SPECIMENOrdering Facility: [facility] Address: [address] [place] [address] Performed By: #### T SCR, [id number] ####[facility] BLOOD BANKCLIA [id number] [address] OF [facility] TYPE AND SCREEN EXPIRATION 11/10/2022 23:59 Normal [facility] Comment on above: Order Comment: Speci men Type: BLOOD SPECIMENOrdering Facility: [facility] Address: [address] [place] [address] Performed By: #### T SCR, [id number] ####[facility] BLOOD BANKCLIA [id number] [place] [address] [place] ANTIBODY ID PATIENTon 2021 ANTIBODY IDENTIFIED Detected Normal [facility] Comment on above: Order Comment: Speci men Type: BLOOD SPECIMENOrdering Facility: [facility] Address: [address] [place] [address] Performed By: #### % [place], [id number], [id number] ####[facility] BLOOD BANKCLIA [id number] [address] BLOOD BANK COMMENTon 022 BLOOD BANK COMMENT See Comment Normal [facility] Comment on above: Order Comment: Speci men Type: BLOOD SPECIMENOrdering Facility: [facility] Address: [address] [place] [address] Result Comment: See physician's report under antibody interpretation on 02.04.22 Performed By: #### % [place], [id number], [id number] ####[facility] BLOOD BANKCLIA [id number] [address] CBC W Auto Differential pane l (Bld)on 10-28-2022 Basophils (Bld) [#/Vol] 0.04 10*3/uL <0.11 k/uL [facility] Basophils/100 WBC (Bld) 0.8 % [facility] Differential cell count method Nom (Bld) Auto [facility] Eosinophils (Bld) [#/Vol] 0.16 10*3/uL <0.46 k/uL [facility] Eosinophils/100 WBC (Bld) 3.2 % [facility] Erythrocyte distribution width (RBC) [Ratio] 12.8 % 11.5 - 15.0 % [facility] Hematocrit (Bld) [Volume fraction] 43.0 % 39.0 - 51.0 % [facility] Hemoglobin (Bld) [Mass/Vol] 14.6 g/dL 13.0 - 17.0 g/dL [facility] Immature granulocytes (Bld) [#/Vol] <0.10 k/uL [facility] Immature granulocytes/100 WBC (Bld) 0.4 % [facility] Lymphocytes (Bld) [#/Vol] 0.60 10*3/uL Low 1.00 - 4.00 k/uL [facility] Lymphocytes/100 WBC (Bld) 11.9 % [facility] MCH (RBC) [Entitic mass] 34.4 pg High 26.0 - 34.0 pg [facility] MCHC (RBC) [Mass/Vol] 34.0 g/dL 30.5 - 36.0 g/dL [facility] MCV (RBC) [Entitic vol] 101.4 fL High 80.0 - 100.0 fL [facility] Monocytes (Bld) [#/Vol] 0.47 10*3/uL <0.87 k/uL [facility] Monocytes/100 WBC (Bld) 9.3 % [facility] Neutrophils (Bld) [#/Vol] 3.75 10*3/uL 1.45 - 7.50 k/uL [facility] Neutrophils/100 WBC (Bld) 74.4 % [facility] Nucleated RBC (Bld) [#/Vol] <0.01 k/uL [facility] Nucleated RBC/100 WBC (Bld) [Ratio] 0.0 /100 WBC [facility] Platelet mean volume (Bld) [Entitic vol] 10.0 fL 9.0 - 12.7 fL [facility] Platelets (Bld) [#/Vol] 237 10*3/uL 150 - 400 k/uL [facility] RBC (Bld) [#/Vol] 4.24 10*6/uL 4.20 - 6.0 0 m/uL [facility] WBC (Bld) [#/Vol] 5.04 10*3/uL 3.70 - 11. 00 k/uL [facility] Basophils (Bld) [#/Vol] 0.04 10*3/uL Normal <0.11 [facility] Comment on above: Order Comment: Speci men Type: BLOOD SPECIMENOrdering Facility: [facility] Address: [address] [place] [address] Performed By: #### 5 7021-8 ####[facility] LABCLIA [id number] [address] OF [facility] Basophils/100 WBC (Bld) 0.8 % Normal [facility] Comment on above: Order Comment: Speci men Type: BLOOD SPECIMENOrdering Facility: [facility] Address: [address] [place] [address] Performed By: #### 5 7021-8 ####[facility] LABCLIA [id number] [place] [address] [place] Differential cell count method Nom (Bld) Auto Normal [facility] Comment on above: Order Comment: Speci men Type: BLOOD SPECIMENOrdering Facility: [facility] Address: [address] [place], [place] [address] Performed By: #### 5 7021-8 ####[facility] LABIA [id number] [place] [address] [place] Eosinophils (Bld) [#/Vol] 0.16 10*3/uL Normal <0.46 [facility] Comment on above: Order Comment: Speci men Type: BLOOD SPECIMENOrdering Facility: [facility] Address: [address] [place], [place] [address] Performed By: #### 5 7021-8 ####[facility] LABIA [id number] [place] [address] [place] Eosinophils/100 WBC (Bld) 3.2 % Normal [facility] Comment on above: Order Comment: Speci men Type: BLOOD SPECIMENOrdering Facility: [facility] Address: [address] [place], [place] [address] Performed By: #### 5 7021-8 ####[facility] LABIA [id number] [place] [address] [place] Erythrocyte distribution width (RBC) [Ratio] 12.8 % Normal 11.5-15.0 [facility] Comment on above: Order Comment: Speci men Type: BLOOD SPECIMENOrdering Facility: [facility] Address: [address] [place], [place] [address] Performed By: #### 5 7021-8 ####[facility] LABIA [id number] [place] [address] [place] Hematocrit (Bld) [Volume fraction] 43.0 % Normal 39.0-51.0 [facility] Comment on above: Order Comment: Speci men Type: BLOOD SPECIMENOrdering Facility: [facility] Address: [address] [place] [address] Performed By: #### 5 7021-8 ####[facility] LABCLIA [id number] [place] [address] [place] Hemoglobin (Bld) [Mass/Vol] 14.6 g/dL Normal 13.0-17.0 [facility] Comment on above: Order Comment: Speci men Type: BLOOD SPECIMENOrdering Facility: [facility] Address: [address] [place] [address] Performed By: #### 5 7021-8 ####[facility] LABCLIA [id number] [place] [address] [place] Immature granulocytes (Bld) [#/Vol] 10*3/uL Normal <0.10 [facility] Comment on above: Order Comment: Speci men Type: BLOOD SPECIMENOrdering Facility: [facility] Address: [address] [place], [place] [address] Performed By: #### 5 7021-8 ####[facility] LABCLIA [id number] [place] [address] [place] Immature granulocytes/100 WBC (Bld) 0.4 % Normal [facility] Comment on above: Order Comment: Speci men Type: BLOOD SPECIMENOrdering Facility: [facility] Address: [address] [place], [place] [address] Performed By: #### 5 7021-8 ####[facility] LABCLIA [id number] [place] [address] [place] Lymphocytes (Bld) [#/Vol] 0.60 10*3/uL Low 1.00-4.00 [facility] Comment on above: Order Comment: Speci men Type: BLOOD SPECIMENOrdering Facility: [facility] Address: [address] Performed By: #### 5 7021-8 ####[facility] LABIA [id number] [address] [place] Lymphocytes/100 WBC (Bld) 11.9 % Normal [facility] Comment on above: Order Comment: Speci men Type: BLOOD SPECIMENOrdering Facility: [facility] Address: [address] Performed By: #### 5 7021-8 ####[facility] LABIA [id number] [place] [address] [place] MCH (RBC) [Entitic mass] 34.4 pg High 26.0-34.0 [facility] Comment on above: Order Comment: Speci men Type: BLOOD SPECIMENOrdering Facility: [facility] Address: [address] Performed By: #### 5 7021-8 ####[facility]ITAL[facility] [id number] [place] [address] [place] MCHC (RBC) [Mass/Vol] 34.0 g/dL Normal 30.5-36.0 [facility] Comment on above: Order Comment: Speci men Type: BLOOD SPECIMENOrdering Facility: [facility] Address: [address] Performed By: #### 5 7021-8 ####[facility] LABIA [id number] [place] [address] [place] MCV (RBC) [Entitic vol] 101.4 fL High 80.0-100.0 [facility] Comment on above: Order Comment: Speci men Type: BLOOD SPECIMENOrdering Facility: [facility] Address: [address] [place], [place] [address] Performed By: #### 5 7021-8 ####[facility] LABIA [id number] [place] [address] [place] Monocytes (Bld) [#/Vol] 0.47 10*3/uL Normal <0.87 [facility] Comment on above: Order Comment: Speci men Type: BLOOD SPECIMENOrdering Facility: [facility] Address: [address] [place] [address] Performed By: #### 5 7021-8 ####[facility] LABCLIA [id number] [place] [address] [place] Monocytes/100 WBC (Bld) 9.3 % Normal [facility] Comment on above: Order Comment: Speci men Type: BLOOD SPECIMENOrdering Facility: [facility] Address: [address] [place] [address] Performed By: #### 5 7021-8 ####[facility] LABCLIA [id number] [place] [address] [place] Neutrophils (Bld) [#/Vol] 3.75 10*3/uL Normal 1.45-7.50 [facility] Comment on above: Order Comment: Speci men Type: BLOOD SPECIMENOrdering Facility: [facility] Address: [address] [place], [place] [address] Performed By: #### 5 7021-8 ####[facility] LABCLIA [id number] [place] [address] [place] Neutrophils/100 WBC (Bld) 74.4 % Normal [facility] Comment on above: Order Comment: Speci men Type: BLOOD SPECIMENOrdering Facility: [facility] Address: [address] [place], [place] [address] Performed By: #### 5 7021-8 ####[facility] LABCLIA [id number] [place] [address] [place] Nucleated RBC (Bld) [#/Vol] 10*3/uL Normal <0.01 [facility] Comment on above: Order Comment: Speci men Type: BLOOD SPECIMENOrdering Facility: [facility] Address: [address] Performed By: #### 5 7021-8 ####[facility] LABIA [id number] [place] [address] [place] Nucleated RBC/100 WBC (Bld) [Ratio] 0.0 /100 WBC Normal [facility] Comment on above: Order Comment: Speci men Type: BLOOD SPECIMENOrdering Facility: [facility] Address: [address] Performed By: #### 5 7021-8 ####[facility] [id number] [place] [address] [place] Platelet mean volume (Bld) [Entitic vol] 10.0 fL Normal 9.0-12.7 [facility] Comment on above: Order Comment: Speci men Type: BLOOD SPECIMENOrdering Facility: [facility] Address: [address] [place], [place] [address] Performed By: #### 5 7021-8 ####[facility] LABIA [id number] [place] [address] [place] Platelets (Bld) [#/Vol] 237 10*3/uL Normal 150-400 [facility] Comment on above: Order Comment: Speci men Type: BLOOD SPECIMENOrdering Facility: [facility] Address: [address] [place] [address] Performed By: #### 5 7021-8 ####[facility] LABIA [id number] [place] [address] [place] RBC (Bld) [#/Vol] 4.24 10*6/uL Normal 4.20-6.00 [facility] Comment on above: Order Comment: Speci men Type: BLOOD SPECIMENOrdering Facility: [facility] Address: [address] [place], [place] [address] Performed By: #### 5 7021-8 ####[facility] LABCLIA [id number] [place] [address] [place] WBC (Bld) [#/Vol] 5.04 10*3/uL Normal 3.70-11.00 [facility] Comment on above: Order Comment: Speci men Type: BLOOD SPECIMENOrdering Facility: [facility] Address: [address] [place], [place] [address] Performed By: #### 5 7021-8 ####[facility] LABIA [id number] [place] [address] [place] Comprehensive metabolic 2000 panelon 10-28-2022 Albumin [Mass/Vol] 4.8 g/dL Normal 3.9-4.9 [facility] Comment on above: Order Comment: Speci men Type: BLOOD SPECIMENOrdering Facility: [facility] Address: [address] [place], [place] [address] Performed By: #### 2 4323-8 ####[facility] LABIA [id number] [place] [address] [place] ALP [Catalytic activity/Vol] 81 U/L Normal 38-113 [facility] Comment on above: Order Comment: Speci men Type: BLOOD SPECIMENOrdering Facility: [facility] Address: [address] [place], [place] [address] Performed By: #### 2 4323-8 ####[facility] LABIA [id number] [place] [address] [place] ALT [Catalytic activity/Vol] 28 U/L Normal 10-54 [facility] Comment on above: Order Comment: Speci men Type: BLOOD SPECIMENOrdering Facility: [facility] Address: [address] [place], [place] [address] Performed By: #### 2 4323-8 ####[facility] LABIA [id number] [address] [address] [place] Anion gap [Moles/Vol] 12 mmol/L Normal 9-18 [facility] Comment on above: Order Comment: Speci men Type: BLOOD SPECIMENOrdering Facility: [facility] Address: [address] Performed By: #### 2 4323-8 ####[facility] LABCLIA [id number] [place] [address] [place] AST [Catalytic activity/Vol] 34 U/L Normal 14-40 [facility] Comment on above: Order Comment: Speci men Type: BLOOD SPECIMENOrdering Facility: [facility] Address: [address] Performed By: #### 2 4323-8 ####[facility] LABIA [id number] [place] [address] [place] Bilirubin [Mass/Vol] 0.6 mg/dL Normal 0.2-1.3 [facility] Comment on above: Order Comment: Speci men Type: BLOOD SPECIMENOrdering Facility: [facility] Address: [address] Performed By: #### 2 4323-8 ####[facility] LABCLIA [id number] [place] [address] [place] Calcium [Mass/Vol] 9.8 mg/dL Normal 8.5-10.2 [facility] Comment on above: Order Comment: Speci men Type: BLOOD SPECIMENOrdering Facility: [facility] Address: [address] Performed By: #### 2 4323-8 ####[facility] LABIA [id number] [place] [address] [place] Chloride [Moles/Vol] 102 mmol/L Normal 97-105 [facility] Comment on above: Order Comment: Speci men Type: BLOOD SPECIMENOrdering Facility: [facility] Address: [address] Performed By: #### 2 4323-8 ####[facility] LABCLIA [id number] [place] [address] [place] CO2 [Moles/Vol] 25 mmol/L Normal 22-30 [facility] Comment on above: Order Comment: Speci men Type: BLOOD SPECIMENOrdering Facility: [facility] Address: [address] [place] [address] Performed By: #### 2 4323-8 ####[facility] LABCLIA [id number] [place] [address] [place] Creatinine [Mass/Vol] 0.89 mg/dL Normal 0.73-1.22 [facility] Comment on above: Order Comment: Speci men Type: BLOOD SPECIMENOrdering Facility: [facility] Address: [address] [place] [address] Performed By: #### 2 4323-8 ####[facility] LABCLIA [id number] [address] [place] ESTIMATED GLOMERULAR FILTRATION RATE 105 mL/min/1.73m??? Normal >=60 [facility] Comment on above: Order Comment: Speci men Type: BLOOD SPECIMENOrdering Facility: [facility] Address: [address] [place] [address] Result Comment: Tanya mated Glomerular Filtration Rate (eGFR) is calculated using the 2020 CKD-EPI creatinine equation. This equation utilizes serum creatinine, sex, and age as parameters. The creatinine assay has traceable calibration to isotope dilution-mass spectrometry. Refer to KDIGO guidelines for clinical interpretation. In patients with unstable renal function, e.g. those with acute kidney injury, the eGFR may not accurately reflect actual GFR. Performed By: #### 2 4323-8 ####[facility] LABCLIA [id number] [place] [address] [place] Glucose [Mass/Vol] 78 mg/dL Normal 74-99 [facility] Comment on above: Order Comment: Speci men Type: BLOOD SPECIMENOrdering Facility: [facility] Address: [address] [place] [address] Result Comment: The [place] Diabetes Association (ADA) provides guidance for cutoff values for fasting glucose and random glucose. The ADA defines fasting as no caloric intake for at least 8 hours. Fasting plasma glucose results between 100 to 125 mg/dL indicate increased risk for diabetes (prediabetes). Fasting plasma glucose results greater than or equal to 126 mg/dL meet the criteria for diagnosis of diabetes. In the absence of unequivocal hyperglycemia, results should be confirmed by repeat testing. In a patient with classic symptoms of hyperglycemia or hyperglycemic crisis, random plasma glucose results greater than or equal to 200 mg/dL meet the criteria for diagnosis of diabetes. Reference: Standards of Medical Care in Diabetes 2016, [place] [employer]. Diabetes Care. 2016.39(Suppl 1). Performed By: #### 2 4323-8 ####[facility] LABCLIA [id number] [place] [address] [place] Potassium [Moles/Vol] 4.1 mmol/L Normal 3.7-5.1 [facility] Comment on above: Order Comment: Speci men Type: BLOOD SPECIMENOrdering Facility: [facility] Address: [address] [place] [address] Performed By: #### 2 4323-8 ####[facility] LABCLIA [id number] [place] [address] [place] Protein [Mass/Vol] 7.9 g/dL Normal 6.3-8.0 [facility] Comment on above: Order Comment: Speci men Type: BLOOD SPECIMENOrdering Facility: [facility] Address: [address] [address] Performed By: #### 2 4323-8 ####[facility] LABCLIA [id number] [place] [address] [place] Sodium [Moles/Vol] 139 mmol/L Normal 136-144 [facility] Comment on above: Order Comment: Speci men Type: BLOOD SPECIMENOrdering Facility: [facility] Address: [address] [place] [id number] Performed By: #### 2 4323-8 ####[facility] LABCLIA [id number] [address] [place] [facility] Urea nitrogen [Mass/Vol] 15 mg/dL Normal 9-24 [facility] Comment on above: Order Comment: Speci men Type: BLOOD SPECIMENOrdering Facility: [facility] Address: [address] [place] [address] Performed By: #### 2 4323-8 ####[facility] LABCLIA [id number] [address] [place] HISTORY PHYSICALon HISTORY PHYSICAL HNO ID: [id number] Author: Juliana Peterson APRN.CNP Service: ? Author Type: Nurse Practitioner Type: HANDP Filed: 11/01/2022 10:16 AM Note Text: HISTORY AND PHYSICAL EXAMINATION SERVICE DATE: 10/27/2022 SERVICE TIME: 11:45 AM PRIMARY CARE PHYSICIAN: Shaikh Kia MD REASON FOR VISIT: Hoang White is a 47 year old male who is scheduled for ROBOTIC LAPAROSCOPIC PROCTECTOMY COMPLETE W/ ABDOMINOPERINEAL W/COLOSTOMY at the request of Dr. Ana Enriquez for consultation. My final recommendation will be communicated back to the requesting physician by way of shared medical record or letter. 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 Patient was dx with rectal CA in November. Has had one resection and has completed chemo and radiation. Has elected for surgical intervention to get rid of residual tumor. PAST MEDICAL HISTORY Diagnosis Date Adenocarcinoma of colon (HCC) Endocarditis 2003 Hypothyroidism Mass of colon [address] Jaquez PAST SURGICAL HISTORY Procedure Laterality Date COLONSCOPY SCREENING HIGH RISK 2021 COLOSTOMY 02/21/2022 Laparoscopic Divided End Loop Sigmoid Colostomy EGD PAST SURGICAL HISTORY OF Right 2012 inguinal PAST SURGICAL HISTORY OF 2019 teeth pullled out FAMILY HISTORY Problem Relation Age of Onset Breast Cancer Sister Colon Cancer Maternal Grandfather SOCIAL HISTORY: Social History Tobacco Use Smoking status: Every Day Packs/day: 0.50 Years: 25.00 Pack years: 12.50 Types: Cigarettes Smokeless tobacco: Never Tobacco comments: Less than half a pack Vaping Use Vaping Use: Never used Substance Use Topics Alcohol use: Yes Comment: 2 drinks/week; heavy in past Drug use: Not Currently Types: IV Comment: Past drug use of herorin MEDICATIONS: Prior to Admission medications as of 10/13/22 1435 Medication Sig Last Dose Taking buPROPion XL (WELLBUTRIN XL) 300 mg 24 hr tablet Take 1 tablet by mouth once daily. Take wellbutrin 150 mg tablet daily for 5 days before starting 300 mg dose daily Taking Yes nicotine (NICODERM) 21 mg/24 hr Apply 1 Patch as directed every 24 hours. Taking Yes loratadine (CLARITIN) 10 mg tablet Take 10 mg by mouth once daily. Taking Yes atorvastatin (LIPITOR) 10 mg tablet Take 10 mg by mouth once daily. Taking Yes acetaminophen (TYLENOL) 500 mg tablet Take 2 tablets by mouth every 6 hours. Taking Yes levothyroxine (SYNTHROID) 125 mcg tablet Take 125 mcg by mouth once daily. Taking Yes iv contrast (will be provided with radiology test) CT ABD/PEL -Inject, intravenously, once for 1 dose.No IV access, insert saline lock prior to the beginning of sedation, infusion, injection of imaging exam. Discontinue saline lock post exam. If Pt. has a central line or IVAD, may access for administration according to line specific nursing protocol. Once exam is complete flush line and de-access according to line specific nursing protocol in the CT contrast administration guidelines link. enteric contrast (will be provided with radiology test) For CT ABD/PEL W IVCON Routine order Administer, As Directed One Time Only, via Oral, Rectal, both Oral and Rectal, Enteric Tube, Stoma or Indwelling Catheter, Enteric Contrast as designated per enteric contrast guidelines capecitabine (XELODA) 500 mg tablet Take 3 tablets (1,500 mg) by mouth twice daily for 14 days. Followed by 7 days off start with the Oxaliplatin Food Supplement, Lactose-Free (PROMOTE, OSMOLITE, TWO CADEN, ENSURE PLUS, ENLIVE) liqd Take 237 mL by mouth three times daily with meals. prochlorperazine (COMPAZINE) 10 mg tablet Take 1 tablet by mouth every 6 hours as needed. ondansetron (ZOFRAN) 8 mg tablet Take 1 tablet by mouth every 8 hours as needed for nausea/vomiting. lactobacillus rhamnosus (CULTURELLE) 10 billion cell capsule Take 1 capsule by mouth once daily. No medication comments found. CURRENT ALLERGIES: ALLERGIES No Known Allergies REVIEW OF SYSTEMS: PAIN ASSESSMENT: General: No weight loss, malaise or fevers. Neuro: No history of TIA's, stroke, VP REVENUE CYCLE tumor, impaired sensorium, hemiplegia, paraplegia or quadraplegia. No neurological symptoms or problems. Respiratory: No history of current cough or dyspnea, or pneumonia in the past 6 weeks. No history of respiratory/pulmonary symptoms or problems. Cardiovascular: Negative for Recent MT, Angina, Chest Pain, HTN, PVD +DVT 8 years ago +Endocarditis > 15 years ago +Tricuspid regurgitation GI: See HPI (more content not included)... Normal [facility] TYPE AND SCREEN,30 DAYon ABO B [facility] HIstorical Ab Scr Status Positive Abnormal [facility] Rh Nom (Bld) Positive [facility] ABO B Normal [facility] Comment on above: Order Comment: Speci men Type: BLOOD SPECIMENOrdering Facility: [facility] Address: [address] [address] Performed By: #### % ALESIA, [id number], [id number] ####[facility] BLOOD BANKCLIA [id number] [address] OF [facility] HISTORICAL AB SCR STATUS Positive Abnormal [facility] Comment on above: Order Comment: Speci men Type: BLOOD SPECIMENOrdering Facility: [facility] Address: [address] [address] Performed By: #### % ALESIA, [id number], [id number] ####[facility] MA[facility] BLOOD BANKCLIA [id number] [address] OF [place] Rh Nom (Bld) Positive Normal [facility] Comment on above: Order Comment: Speci men Type: BLOOD SPECIMENOrdering Facility: [facility] Address: [address] [place] [address] Performed By: #### % ALESIA, [id number], [id number] ####[facility] MAIN BLOOD BANKCLIA [id number] [id number] [address] [place] [address] ABD/PEL W IVCONon 022 CT ABD/PEL W IVCON * * *Final Report* * * DATE OF EXAM: Oct 17 2022 2:19PM [facility] 0530 - CT ABD/PEL W IVCON / PROCEDURE REASON: Malignant neoplasm of rectum (HCC) * * * * Physician Interpretation * * * * RESULT: EXAMINATION: CT ABDOMEN AND PELVIS WITH IV CONTRAST CLINICAL HISTORY: Rectal carcinoma TECHNIQUE: CT of the abdomen and pelvis was performed using standard technique, scanning from just above the dome of the diaphragm to the symphysis pubis. MQ: CTAP_3 Contrast: IV: 125 ml of Omnipaque 300 Oral: 450 ml of 50ML Omnipaque [address] Radiation dose: Integrated Dose-length product (DLP) for this visit = 419 mGy*cm. CT Dose Reduction Employed: Automated exposure control (AEC) COMPARISON: 01/13/2022. RESULT: Liver: No mass. Biliary Tract: No bile duct dilation. The gallbladder appears unremarkable. Spleen: No splenomegaly. No mass. Pancreas: No mass or ductal dilatation. Adrenal glands: The right adrenal gland appears unremarkable. Low-attenuation 1.0 cm left adrenal gland nodule is stable, compatible with a benign adenoma. Kidneys: No enhancing mass or hydronephrosis. Subcentimeter right renal hypodensity, stable, compatible with a cyst. GI Tract: No bowel wall thickening or dilation. Postoperative changes, compatible with diverting left lower lobe quadrant colostomy. Lymph nodes: No substantial mesenteric, retroperitoneal or pelvic lymphadenopathy. Mesentery: No ascites. No mass. Retroperitoneum: No mass. Vasculature: - Abdominal aorta and iliac arteries: No aneurysm - Celiac and SMA: Patent. - Portal venous system (SMV, splenic vein, portal vein and branches): Patent. - Hepatic veins: Patent. Pelvis: No free fluid or pelvic mass. Bones/Soft Tissues: Mild general change within the lumbar spine. No osseous destructive process. Lower Thorax: Limited images through the lung bases appear stable. Mild multichamber cardiomegaly is noted. Data Analyst Report Writer (topogram) images: No additional findings. IMPRESSION: Stable postoperative appearance to the abdomen and pelvis as above. Transcribe Date/Time: Oct 18 2022 4:33P Dictated by: DUC SARABIA MD This examination was interpreted and the report reviewed and electronically signed by: DUC SARABIA MD on Oct 19 2022 8:06AM EST Thank you for allowing us to participate in the care of your patient. Should there be any questions regarding this interpretation, please call [phone]. If you are unable to reach us at the number above, please feel free to contact [facility] at [phone]. [id number] Normal [facility] ANES POSTPROC EVALon 022 ANES POSTPROC EVAL HNO ID: [id number] Author: Charo Leblanc MD Service: Anesthesiology Author Type: Physician Type: Anesthesia Postprocedure Evaluation Filed: 10/13/2022 4:43 PM Note Text: POST ANESTHESIA EVALUATION NOTE : 1975 Procedure Summary Date: 10/13/22 Room / Location: Procedures Anesthesia Start: 1453 Anesthesia Stop: 1509 Procedure: SIGMOIDOSCOPY Diagnosis: Follow-up examination after colorectal surgery Rectal cancer (HCC) (Personal history of malignant rectal neoplasm) Scheduled Providers: nAa Enriquez MD; Radha Sharp RN; Charo Leblanc MD; Camelia Thomason APRN.PIPE ORGAN MECHANIC Responsible Provider: Charo Leblanc MD Anesthesia Type: MAC ASA Status: 4 Anesthesia Type: MAC Last Vitals Vitals Value Taken Time BP 105/71 10/13/22 1540 Temp 36.2 ?C (97.1 ?F) 10/13/22 1510 Pulse 61 10/13/22 1548 Resp 23 10/13/22 1548 SpO2 99 % 10/13/22 1547 Vitals shown include unvalidated device data. Post Anesthesia Patient Status Patient Evaluation: PACU. PACU/ICU Patient Condition: stable. Anticipated Disposition: phase 2 then home. Neurological Status: aware and responsive. Pulmonary Status: breathing comfortably on room air Airway Control: returned to baseline unsupported. Cardiovascular Status: stable. Pain Management: clinically adequate - multimodal analgesia pain management approach Postoperative Hydration: acceptable. Intraoperative Events: no significant anesthesia events Recommendation: continue current plan of care. 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 as calculated from the following: Height as of 10/04/22: 172.7 cm (5' 8 ). Weight as of 10/04/22: 60.3 kg (133 lb). Most recent hematocrit and potassium results: Hematocrit 36.0 08/26/2022 Potassium 4.2 08/26/2022 Relevant Problems NEURO-PSYCH (+) History of endocarditis (+) History of intravenous drug abuse (HCC) PULMONARY (+) Smoker Cardiovascular (+) Severe tricuspid regurgitation Hematology (+) Red blood cell antibody positive Oncology (+) Rectal cancer (HCC) I - PHYSICAL EVALUATION AIRWAY Patient intubated: No. Tracheostomy tube not present Mallampati: I. TM distance: >3 FB. Neck ROM: full ROM without neurological symptoms. Mouth opening: adequate. Short neck: no. Thick neck: no Marx present: no DENTAL Normal dental observations. Dental findings: teeth intact. Dentures, upper: complete. Additional exam findings: yes. CARDIOVASCULAR Rhythm: regular Rate: normal PULMONARY Breath sounds clear to auscultation. II - ANESTHESIA PLAN ASA Score: 4 Anesthetic Plan: MAC NPO Status: adequate Beta Linda Monitoring Plan Monitoring plan: Standard ASA. Post Procedure Analgesic Plan Postoperative analgesic plan: parenteral or oral opioids and multimodal analgesia. Informed Consent Anesthetic risks, benefits, alternatives, personnel and consent discussed: yes. Patient / Responsible Libertarian agrees to proceed: yes Patient / Surrogate agrees to blood products: blood products not planned DNR status not reviewed with patient and/or family prior to surgery. Significant changes in the patient condition since the History and Physical, not otherwise documented in primary service progress note: no. Potential Anesthesia issues that may suggest increased risk of complications or contraindication to planned procedure: none. Vitals Value Taken Time BP 116/86 10/13/22 1439 Pulse 65 10/13/22 1439 Resp 20 10/13/22 1439 Temp 35.7 ?C (96.3 ?F) 10/13/22 1439 SpO2 100 % 10/13/22 1439 Outpatient Medications as of 10/13/2022 Medication Sig - buPROPion XL (WELLBUTRIN XL) 300 mg 24 hr tablet Take 1 tablet by mouth once daily. Take wellbutrin 150 mg tablet daily for 5 days before starting 300 mg dose daily - nicotine (NICODERM) 21 mg/24 hr Apply 1 Patch as directed every 24 hours. - loratadine (CLARITIN) 10 mg tablet Take 10 mg by mouth once daily. - atorvastatin (LIPITOR) 10 mg tablet Take 10 mg by mouth once daily. - levothyroxine (SYNTHROID) 125 mcg tablet Take 125 mcg by mouth once daily. - iv contrast (will be provided with radiology test) CT ABD/PEL -Inject, intravenously, once for 1 dose.No IV access, insert saline lock prior to the beginning of sedation, infusion, injection of imaging exam. Discontinue saline lock post exam. If Pt. has a central line or IVAD, may access for administration according to line specific nursing protocol. Once exam is complete flush line and de-access according to line specific nursing protocol in the CT contrast administration guidelines link. - enteric contrast (will be provided with radiology test) For CT ABD/PEL W IVCON Routine order Administer, As Directed One Time Only, via Oral, Rectal, both Oral and Rectal, Enteric Tube, Stoma or Indwelling Catheter, Enteric Contrast as designated per enteric contrast guidelines - capecitabine (XELODA) 500 mg tablet Take 3 tablets (1,500 mg) by mouth twice daily for 14 days. Followed by 7 days off start with the Oxaliplatin - Food Supplement, Lactose-Free (PROMOTE, OSMOLITE, TWO CADEN, ENSURE PLUS, ENLIVE) liqd Take 237 mL by mouth three times daily with meals. - prochlorperazine (COMPAZINE) 10 mg tablet Take 1 tablet by mouth every 6 hours as needed. - ondansetron (ZOFRAN) 8 mg tablet Take 1 tablet by mouth every 8 hours as needed for nausea/vomiting. - acetaminophen (TYLENOL) 500 mg tablet Take 2 tablets by mouth every 6 hours. - lactobacillus rhamnosus (CULTURELLE) 10 billion cell capsule Take 1 capsule by mouth once daily. Facility-Administered Medications as of 10/13/2022 Medication Dose Route Frequency - perflutren lipid microspheres 1.3 mL in NaCl (PF) 0.9% 10 mL injection (DEFINITY) INTRAVENOUS DIRECTED PRN - sodium chloride 0.9 % (flush) 10 mL (BD POSIFLUSH) 10 mL INTRAVENOUS DIRECTED PRN I have interviewed and examined the patient. I have reviewed the medical record and/or the pre-anesthesia evaluation, pertinent labs, and test results. This contains updated (more content not included)... Normal [facility] Flexible Sigmoidoscopyon Flexible sigmoidoscopy [facility] Gastrointestinal Endoscopy Patient Name: Hoang White Procedure Date: 10/13/2022 2:29 PM Date of : 1975 Admit Type: Outpatient Age: 47 Room: [place] [address] Gender: Male Note Status: Finalized Attending MD: Ana Enriquez MD Procedure: Flexible Sigmoidoscopy Indications: Personal history of malignant rectal neoplasm Providers: Ana Enriquez MD Patient Profile: Last Colonoscopy: 2021. Referring Physician: Aan Enriquez MD (Referring MD) Medicines: Monitored Anesthesia Care Complications: No immediate complications. Estimated blood loss: None. Requesting Provider: Procedure: Pre-Anesthesia Assessment: - Prior to the procedure, a History and Physical was performed, and patient medications and allergies were reviewed. The patient's tolerance of previous anesthesia was also reviewed. The risks and benefits of the procedure and the sedation options and risks were discussed with the patient. All questions were answered, and informed consent was obtained. Prior Anticoagulants: The patient has taken no anticoagulant or antiplatelet agents. ASA Grade Assessment: III - A patient with severe systemic disease. After reviewing the risks and benefits, the patient was deemed in satisfactory condition to undergo the procedure. After obtaining informed consent, the scope was passed under direct vision. The Endosonoscope was introduced through the anus and advanced to the rectum. The flexible sigmoidoscopy was accomplished without difficulty. The patient tolerated the procedure well. The quality of the bowel preparation was excellent. Moderate Sedation: MAC anesthesia was administered by the anesthesia team. Total Procedure Duration: 0 hours 4 minutes 50 seconds Findings: The perianal and digital rectal examinations were normal. Pertinent negatives include normal sphincter tone. A complete stenosis at the site of prior rectal malignancy was appreciated 10 cm from the anal verge at the 3rd rectal valve. There was no luminal opening. There was no residual rectal tumor, the intrinsic stenosis had the appearance of scar. Tattoo visualized distal to this area at the 2nd rectal valve. Impression: - Stricture in the proximal rectum. - No specimens collected. Recommendation: - Discharge patient to home. - Resume previous diet. - Continue present medications. - Plan to proceed with surgery as scheduled pending CT abdomen results. Attending Participation: I personally performed the entire procedure. Scope In: 3:00:26 PM Scope Out: 3:05:16 PM MD Ana Lucas MD 10/13/2022 3:13:59 PM This report has been signed electronically by Ana Enriquez MD Number of Addenda: 0 Note Initiated On: 10/13/2022 2:29 PM Estimated Blood Loss: Estimated blood loss: none. Normal [facility] HISTORY PHYSICALon HISTORY PHYSICAL HNO ID: [id number] Author: Kaylin Zamora MD Service: Colorectal Author Type: Resident Type: HANDP Filed: 10/13/2022 2:29 PM Note Text: -------- Attestation signed by Ana Enriquez MD at 10/13/2022 2:45 PM [facility] STAFF PHYSICIAN NOTE OF PERSONAL INVOLVEMENT IN CARE I have reviewed the history and physical exam obtained and documented by the resident and I personally participated in the rubin components. I have confirmed and edited as necessary, the PFSH and ROS obtained by others. I have discussed the case and management of the patient's care. Ana Enriquez MD Date of Service: October 13, 2022 -------- PROCEDURAL SEDATION HISTORY AND PHYSICAL EXAM SERVICE DATE: 10/13/2022 SERVICE TIME: 2:29 PM Subjective HPI: This is a 47 year old male who presents for flexible sigmoidoscopy. PAST ANESTHESIA HISTORY: PAST MEDICAL HISTORY Diagnosis Date Adenocarcinoma of colon (HCC) Endocarditis 2003 Hypothyroidism Mass of colon [address] Jaquez PAST SURGICAL HISTORY Procedure Laterality Date COLONSCOPY SCREENING HIGH RISK 2021 COLOSTOMY 02/21/2022 Laparoscopic Divided End Loop Sigmoid Colostomy EGD PAST SURGICAL HISTORY OF Right 2012 inguinal PAST SURGICAL HISTORY OF 2019 teeth pullled out Prior to Admission medications as of 10/05/22 1022 Medication Sig Last Dose Taking iv contrast (will be provided with radiology test) CT ABD/PEL -Inject, intravenously, once for 1 dose.No IV access, insert saline lock prior to the beginning of sedation, infusion, injection of imaging exam. Discontinue saline lock post exam. If Pt. has a central line or IVAD, may access for administration according to line specific nursing protocol. Once exam is complete flush line and de-access according to line specific nursing protocol in the CT contrast administration guidelines link. enteric contrast (will be provided with radiology test) For CT ABD/PEL W IVCON Routine order Administer, As Directed One Time Only, via Oral, Rectal, both Oral and Rectal, Enteric Tube, Stoma or Indwelling Catheter, Enteric Contrast as designated per enteric contrast guidelines buPROPion XL (WELLBUTRIN XL) 300 mg 24 hr tablet Take 1 tablet by mouth once daily. Take wellbutrin 150 mg tablet daily for 5 days before starting 300 mg dose daily capecitabine (XELODA) 500 mg tablet Take 3 tablets (1,500 mg) by mouth twice daily for 14 days. Followed by 7 days off start with the Oxaliplatin Food Supplement, Lactose-Free (PROMOTE, OSMOLITE, TWO CADEN, ENSURE PLUS, ENLIVE) liqd Take 237 mL by mouth three times daily with meals. prochlorperazine (COMPAZINE) 10 mg tablet Take 1 tablet by mouth every 6 hours as needed. nicotine (NICODERM) 21 mg/24 hr Apply 1 Patch as directed every 24 hours. ondansetron (ZOFRAN) 8 mg tablet Take 1 tablet by mouth every 8 hours as needed for nausea/vomiting. loratadine (CLARITIN) 10 mg tablet Take 10 mg by mouth once daily. atorvastatin (LIPITOR) 10 mg tablet Take 10 mg by mouth once daily. acetaminophen (TYLENOL) 500 mg tablet Take 2 tablets by mouth every 6 hours. lactobacillus rhamnosus (CULTURELLE) 10 billion cell capsule Take 1 capsule by mouth once daily. levothyroxine (SYNTHROID) 125 mcg tablet Take 125 mcg by mouth once daily. ALLERGIES No Known Allergies Objective PHYSICAL EXAM: The remainder of the physical exam is noncontributory. AIRWAY: Airway Visualization of Uvula: Yes Mouth opening greater than 2 fingerbreadths: Yes Neck Full Range of Motion: Yes LUNGS: Lungs clear to auscultation CARDIAC: Regular rhythm,Regular rate Assessment/Plan ASA Class: ASA Class:: Patient with mild systemic disease Active Problems: * No active hospital problems. * Resolved Problems: * No resolved hospital problems. * Medication and Non-Pharmacologic VTE Prophylaxis/Anticoagulan ts VTE Prophylaxis: VTE prophylaxis appropriate Provisional Diagnosis/Treatment Plan: flexible sigmoidoscopy SEDATION GOAL: Moderate SIGNATURE: Kaylin Zamora MD PATIENT NAME: Hoang Zuñigaregorio DATE: October 13, 2022 TIME: 2:29 PM Normal [facility] SIGMOIDOSCOPYon 10-13-2022 [facility] CNPLivier 10-11-2022 CNPN Telephone ([id number]) -------- ESTRADAHOANG ([id number]) 1975 M Date Time Provider Department 10/11/22 ANA ENRIQUEZ [id number] During your visit today, we recorded the following information about you: Cris Reid ADM 10/11/2022 2:51 PM Signed Notification to doctor's office that patient has been called to schedule PACC prior to surgery. Patient has failed to schedule. No call back needed. Allergies As of Date: 10/11/2022 (No Known Allergies) Date Reviewed: 10/05/2022 Reviewed by: Ana Enriquez MD - Fully Assessed Reason for Visit: Anesthesia Consult [2204] Cmt: Patient not scheduled PACC Prescriptions as of 10/11/2022 - iv contrast (will be provided with radiology test) CT ABD/PEL -Inject, intravenously, once for 1 dose.No IV access, insert saline lock prior to the beginning of sedation, infusion, injection of imaging exam. Discontinue saline lock post exam. If Pt. has a central line or IVAD, may access for administration according to line specific nursing protocol. Once exam is complete flush line and de-access according to line specific nursing protocol in the CT contrast administration guidelines link. - enteric contrast (will be provided with radiology test) For CT ABD/PEL W IVCON Routine order Administer, As Directed One Time Only, via Oral, Rectal, both Oral and Rectal, Enteric Tube, Stoma or Indwelling Catheter, Enteric Contrast as designated per enteric contrast guidelines - buPROPion XL (WELLBUTRIN XL) 300 mg 24 hr tablet Take 1 tablet by mouth once daily. Take wellbutrin 150 mg tablet daily for 5 days before starting 300 mg dose daily - capecitabine (XELODA) 500 mg tablet Take 3 tablets (1,500 mg) by mouth twice daily for 14 days. Followed by 7 days off start with the Oxaliplatin - Food Supplement, Lactose-Free (PROMOTE, OSMOLITE, TWO CADEN, ENSURE PLUS, ENLIVE) liqd Take 237 mL by mouth three times daily with meals. - prochlorperazine (COMPAZINE) 10 mg tablet Take 1 tablet by mouth every 6 hours as needed. - nicotine (NICODERM) 21 mg/24 hr Apply 1 Patch as directed every 24 hours. - ondansetron (ZOFRAN) 8 mg tablet Take 1 tablet by mouth every 8 hours as needed for nausea/vomiting. - loratadine (CLARITIN) 10 mg tablet Take 10 mg by mouth once daily. - atorvastatin (LIPITOR) 10 mg tablet Take 10 mg by mouth once daily. - acetaminophen (TYLENOL) 500 mg tablet Take 2 tablets by mouth every 6 hours. - lactobacillus rhamnosus (CULTURELLE) 10 billion cell capsule Take 1 capsule by mouth once daily. - levothyroxine (SYNTHROID) 125 mcg tablet Take 125 mcg by mouth once daily. 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.8] 01/17/2022 Red blood cell antibody positive [R76.8] 02/09/2022 History of intravenous drug abuse (HCC) [F19.11]02/16/2022 Smoker [F17.200] 02/16/2022 Rectal mass [K62.89] 02/16/2022 Rectal cancer (HCC) [C20] 02/21/2022 Severe protein-calorie malnutrition (HCC) [E43] 02/22/2022 Malaise and fatigue [R53.81, R53.83] 07/15/2022 Encounter Status:Closed by ANTHONY CARABALLO on 10/11/22 [facility] Tele[facility] ([facility]) -------- HOANG WHITE ([id number]) 1975 M Date Time Provider Department 10/05/22 ANA ENRIQUEZ [facility] During your visit today, we recorded the following information about you: Kelsea aDniel RN 10/05/2022 10:16 AM Signed Call placed to patient's significant other Ghazala at [phone]. No answer, left message re: date of flex sig 10/13, date of abdomen/pelvis 10/17, and OR date of 11/07/2022. 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 Discontinue saline lock post exam. If Pt. has a central line or IVAD, may access for administration according to line specific nursing protocol. Once exam is complete flush line and de-access according to line specific nursing protocol in the CT contrast administration guidelines link. - enteric contrast (will be provided with radiology test) For CT ABD/PEL W IVCON Routine order Administer, As Directed One Time Only, via Oral, Rectal, both Oral and Rectal, Enteric Tube, Stoma or Indwelling Catheter, Enteric Contrast as designated per enteric contrast guidelines - buPROPion XL (WELLBUTRIN XL) 300 mg 24 hr tablet Take 1 tablet by mouth once daily. Take wellbutrin 150 mg tablet daily for 5 days before starting 300 mg dose daily - capecitabine (XELODA) 500 mg tablet Take 3 tablets (1,500 mg) by mouth twice daily for 14 days. Followed by 7 days off start with the Oxaliplatin - Food Supplement, Lactose-Free (PROMOTE, OSMOLITE, TWO CADEN, ENSURE PLUS, ENLIVE) liqd Take 237 mL by mouth three times daily with meals. - prochlorperazine (COMPAZINE) 10 mg tablet Take 1 tablet by mouth every 6 hours as needed. - nicotine (NICODERM) 21 mg/24 hr Apply 1 Patch as directed every 24 hours. - ondansetron (ZOFRAN) 8 mg tablet Take 1 tablet by mouth every 8 hours as needed for nausea/vomiting. - loratadine (CLARITIN) 10 mg tablet Take 10 mg by mouth once daily. - atorvastatin (LIPITOR) 10 mg tablet Take 10 mg by mouth once daily. - acetaminophen (TYLENOL) 500 mg tablet Take 2 tablets by mouth every 6 hours. - lactobacillus rhamnosus (CULTURELLE) 10 billion cell capsule Take 1 capsule by mouth once daily. - levothyroxine (SYNTHROID) 125 mcg tablet Take 125 mcg by mouth once daily. 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] 01/17/2022 Red blood cell antibody positive [R76.8] 02/09/2022 History of intravenous drug abuse (HCC) [F19.11]02/16/2022 Smoker [F17.200] 02/16/2022 Rectal mass [K62.89] 02/16/2022 Rectal cancer (HCC) [C20] 02/21/2022 Severe protein-calorie malnutrition (HCC) [E43] 02/22/2022 Malaise and fatigue [R53.81, R53.83] 07/15/2022 Encounter Status:[facility] ) -------- HOANG WHITE ([id number]) 1975 M Date Time Provider Department 10/04/22 4:00 PM ANA ENRIQUEZ [facility] During your visit today, we recorded the following information about you: Pulse Blood pressure Weight Height 64/minute 119/66 60.3 kg 1.727 m Ana Enriquez MD 10/05/2022 10:24 AM Signed COLORECTAL SURGERY October 04, 2022 Hoang White Chief Complaint: surveillance of rectal cancer History of Present Illness: Hoang White is a 47 year old male presents to the office for a follow up evaluation after undergoing a Laparoscopic Divided End Loop Sigmoid Colostomy on 02/21/2022 for rectal cancer. Last seen in the office on 05/24/22. Endoscopist: Kishan Jaquez Medical oncologist: Oscar Gonzalez Radiation oncologist: Tylor Davalos Colonoscopy date/findings: 12/24/21 Partially obstructing large circumferential mass, rectosigmoid at 10 cm, multiple biopsies obtained and tattooed. Colonoscopy pathology: Rectosigmoid colon mass: invasive moderately differentiated adenocarcinoma. CT chest date/findings: 09/26/22 SCATTERED LESS THAN 0.5 CM LUNG NODULES BILATERALLY, STABLE. NO SIGNIFICANT INTERVAL CHANGE SINCE 01/13/2022. CT abdomen date/findings: 01/13/22 1. Numerous bilateral 5 mm or less pulmonary nodules are identified. Correlation with follow-up summations is recommended to assess for stability. 2. Borderline prominent right hilar and subcarinal lymph nodes. These can also be further assessed on follow-up studies. 1. Improved appearance to wall thickening involving the sigmoid colon. 2. No CT evidence for metastatic disease to the abdomen or pelvis. MRI rectum date/findings: 09/26/22 Since 05/12/2022 and 02/03/2022, post treatment primary tumor assessment: RESULT: TREATED PRIMARY TUMOR CHARACTERISTICS (Compare to pre-treatment): DWI (with associated low ADC) ? restricted diffusion and low ADC in tumor or tumor bed: Absent. MRI-T2W: Mixed dark T2/scar and intermediate signal. T2 bright mucin (cannot distinguish between cellular and acellular mucin): Absent. Description: Development of T2 hyperintense scar. Distance of the inferior margin of treated tumor to the anal verge: 10.5 cm (3:21) Distance of the inferior margin to the top of sphincter complex/anorectal junction: 8.5 cm (3:21) Relationship to anterior peritoneal reflection: Straddles Craniocaudal length: 2.4 cm (6:24) Pre-treatment craniocaudal length: 3.5 cm (05/12/2022); 6.8 cm (02/03/2022) Tumor location: Upper rectum (10-15 cm) Maximal wall thickness: 0.5 cm (6:24) Pre-treatment wall thickness: 0.7 cm (05/12/2022); 1.3 cm (02/03/2022) Invasion of anal sphincter complex: Absent. Anal canal involvement: None. TUMOR DEPOSITS AND EXTRAMURAL VASCULAR INVASION (EMVI): Tumor deposits:(separate from metastatic lymph nodes): No. EMVI: No (none evident pre-treatment). MESORECTAL FASCIA (MRF): Shortest distance of extraluminal part of the tumor to MRF: Tumor extension beyond the rectal wall at and above the anterior peritoneal reflection Tumor extension through the peritonealized portion of the rectum into peritoneal fat: Tumor extension along the right lateral wall inseparable from the peritoneal reflection. Is there a separate tumor deposit, LN or EMVI threatening (?1mm and ?2 mm) or invading (< 1 mm) the MRF? No. Comments: N/A T4 disease interval change: Continued decreased thickening along the right peritoneal reflection. POST-TREATMENT TUMOR REGRESSION: mrTRG: Grade 3 - Moderate response LYMPH NODES: Mesorectal/superior rectal lymph nodes and/or tumor deposits: N0 (no visible lymph nodes/deposits or only < 5 mm short axis) Suspicious extra mesorectal lymph nodes: None. OTHER FINDINGS: Diverting end colostomy. Trabeculated appearance of the urinary bladder. Postsurgical changes of right inguinal hernia repair. No aggressive osseous lesions. Additional imaging: n/a CEA date/level: 05/24/22- 5.9 Clinical stage: stage IIIC, [id number] Treatment: 5000 cGy in 25 fractions, 2 VMAT/Rapid Arcs, 10X with daily CBCT Imaging TOTAL: 5000 cGy in 25 fractions with concurrent Xeloda S/p consolidation CAPOX complete 08/26/22 Pathologic stage: TBD Surveillance primary physician: Carlos Surveillance plan: TBD PAST MEDICAL HISTORY Diagnosis Date Adenocarcinoma of colon (HCC) Endocarditis 2003 Hypothyroidism Mass of colon [address] Jaquez PAST SURGICAL HISTORY Procedure Laterality Date COLONSCOPY SCREENING HIGH RISK 2021 COLOSTOMY 02/21/2022 Laparoscopic Divided End Loop Sigmoid Colostomy EGD PAST SURGICAL HISTORY OF Right 2012 inguinal PAST SURGICAL HISTORY OF 2020 teeth pullled out Current Outpatient Medications Medication Sig Dispense Refill buPROPion XL (WELLBUTRIN XL) 300 mg 24 hr tablet Take 1 tablet by mouth once daily. Take wellbutr (more content not included)... Normal [facility] 09-27-2022 CNPN Telephone (HEMTSA) -------- HOANG WHITE ([id number]) 1975 M Date Time Provider Department 09/27/22 MEGHAN PICHARDO During your visit today, we recorded the following information about you: Meghan Pichardo RN 09/27/2022 3:31 PM Signed ----- Message from Oscar Gonzalez MD sent at 09/26/2022 4:26 PM EST ----- Call with results and state that he has responded and will likely need surgery. Thanks Meghan Pichardo RN 09/27/2022 3:34 PM Signed Pt's notified and states pt has a follow up appointment with Dr Enriquez on 10/04 to discuss surgery. Meghan Pichardo RN Allergies As of Date: 09/27/2022 (No Known Allergies) Date Reviewed: 08/26/2022 Reviewed by: Temi Dean PA-C - Fully Assessed Reason for Visit: Care Coordination [6552] Cmt: MRI results Prescriptions as of 09/27/2022 - buPROPion XL (WELLBUTRIN XL) 300 mg 24 hr tablet Take 1 tablet by mouth once daily. Take wellbutrin 150 mg tablet daily for 5 days before starting 300 mg dose daily - capecitabine (XELODA) 500 mg tablet Take 3 tablets (1,500 mg) by mouth twice daily for 14 days. Followed by 7 days off start with the Oxaliplatin - Food Supplement, Lactose-Free (PROMOTE, OSMOLITE, TWO CADEN, ENSURE PLUS, ENLIVE) liqd Take 237 mL by mouth three times daily with meals. - prochlorperazine (COMPAZINE) 10 mg tablet Take 1 tablet by mouth every 6 hours as needed. - nicotine (NICODERM) 21 mg/24 hr Apply 1 Patch as directed every 24 hours. - ondansetron (ZOFRAN) 8 mg tablet Take 1 tablet by mouth every 8 hours as needed for nausea/vomiting. - loratadine (CLARITIN) 10 mg tablet Take 10 mg by mouth once daily. - atorvastatin (LIPITOR) 10 mg tablet Take 10 mg by mouth once daily. - acetaminophen (TYLENOL) 500 mg tablet Take 2 tablets by mouth every 6 hours. - lactobacillus rhamnosus (CULTURELLE) 10 billion cell capsule Take 1 capsule by mouth once daily. - levothyroxine (SYNTHROID) 125 mcg tablet Take 125 mcg by mouth once daily. 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 eGFR (POCT) [facility] CT CHEST W IVCONon CT CHEST W IVCON * * *Final Report* * * DATE OF EXAM: Sep 26 2022 1:49PM FVC 0539 - CT CHEST W IVCON / PROCEDURE REASON: Lung nodules * * * * Physician Interpretation * * * * EXAMINATION: CHEST CT WITH CONTRAST CLINICAL HISTORY: Moderately differentiated rectal carcinoma status post laparoscopic diverting colostomy on 02/21/2022, followed by neoadjuvant chemotherapy and radiation Technique: Spiral CT acquisition of the chest from the thoracic inlet to the upper abdomen following IV contrast. MQ: [id number]_6 Contrast: 50 mL Omnipaque [address] Radiation dose: Integrated Dose-length product (DLP) for this visit = 148 mGy*cm CT Dose Reduction Employed: Automated exposure control (AEC) Comparison: Chest CT dated 01/13/2022 RESULT: Limitations: None. Lines, tubes, and devices: None. Lung parenchyma and airways: There are scattered less than 0.5 cm lung nodules bilaterally, stable. There is mild bibasilar linear atelectasis, stable. No pleural effusion. Pleural space: No pleural effusion. No pleural thickening. Lower neck, lymph nodes, and mediastinum: The imaged thyroid gland is normal. No lymphadenopathy in the supraclavicular, axillary, mediastinal, or hilar regions. Heart, pericardium, and thoracic vessels: The thoracic aorta and main pulmonary artery are normal in caliber. There is mild cardiomegaly. Mild coronary artery atherosclerotic calcifications are noted, although the study is not optimized for coronary assessment. No pericardial effusion or thickening. Bones and soft tissues: There is mild degenerative change. No destructive bone lesion. Chest wall is unremarkable. Upper abdomen: There is 1.2 cm hypodense left adrenal nodule, stable Data Analyst Report Writer (topogram) images: No additional findings. IMPRESSION: SCATTERED LESS THAN 0.5 CM LUNG NODULES BILATERALLY, STABLE. NO SIGNIFICANT INTERVAL CHANGE SINCE 01/13/2022. Search Marketing Specialist: PSCB Transcribe Date/Time: Sep 26 2022 5:30P Dictated by : BEATRIS MONROE MD This examination was interpreted and the report reviewed and electronically signed by: BEATRIS MONROE MD on Sep 26 2022 5:40PM EST [id number] Normal [facility] MRI RECTUM WO/W IVCONon 11-2 8-2022 MRI RECTUM WO/W IVCON * * *Final Report* * * DATE OF EXAM: Sep 26 2022 3:09PM KATELYN 0754 - MRI RECTUM WO/W IVCON / PROCEDURE REASON: Malignant neoplasm of rectum (HCC) * * * * Physician Interpretation * * * * MRI OF THE PELVIS WITHOUT AND WITH CONTRAST: RECTAL CANCER RESTAGING CLINICAL HISTORY: Rectal Cancer RESTAGING Pretreatment Tumor Staging: T4a N+ Rectal tumor histology: Adenocarcinoma Prior chemotherapy or radiation: Yes Neoadjuvant capecitabine and XRT started 03/10/2022 and completed 04/15/2022. ?Plan for ISAÍAS and started CAPOX 06/03/2022 Other: N/A COMPARISON: MRI rectum 05/12/2022 and 02/03/2022 TECHNIQUE: Magnet: Siemens Avanto 1.5T scanner. Multiplanar MRI with multiple sequences before and after contrast. Contrast: IV: 12 ml of Dotarem Patient declined rectal gel. RESULT: TREATED PRIMARY TUMOR CHARACTERISTICS (Compare to pre-treatment): DWI (with associated low ADC) ? restricted diffusion and low ADC in tumor or tumor bed: Absent. MRI-T2W: Mixed dark T2/scar and intermediate signal. T2 bright mucin (cannot distinguish between cellular and acellular mucin): Absent. Description: Development of T2 hyperintense scar. Distance of the inferior margin of treated tumor to the anal verge: 10.5 cm (3:21) Distance of the inferior margin to the top of sphincter complex/anorectal junction: 8.5 cm (3:21) Relationship to anterior peritoneal reflection: Straddles Craniocaudal length: 2.4 cm (6:24) Pre-treatment craniocaudal length: 3.5 cm (05/12/2022); 6.8 cm (02/03/2022) Tumor location: Upper rectum (10-15 cm) Maximal wall thickness: 0.5 cm (6:24) Pre-treatment wall thickness: 0.7 cm (05/12/2022); 1.3 cm (02/03/2022) Invasion of anal sphincter complex: Absent. Anal canal involvement: None. TUMOR DEPOSITS AND EXTRAMURAL VASCULAR INVASION (EMVI): Tumor deposits:(separate from metastatic lymph nodes): No. EMVI: No (none evident pre-treatment). MESORECTAL FASCIA (MRF): Shortest distance of extraluminal part of the tumor to MRF: Tumor extension beyond the rectal wall at and above the anterior peritoneal reflection Tumor extension through the peritonealized portion of the rectum into peritoneal fat: Tumor extension along the right lateral wall inseparable from the peritoneal reflection. Is there a separate tumor deposit, LN or EMVI threatening (?1mm and ?2 mm) or invading (< 1 mm) the MRF? No. Comments: N/A T4 disease interval change: Continued decreased thickening along the right peritoneal reflection. POST-TREATMENT TUMOR REGRESSION: mrTRG: Grade 3 - Moderate response LYMPH NODES: Mesorectal/superior rectal lymph nodes and/or tumor deposits: N0 (no visible lymph nodes/deposits or only < 5 mm short axis) Suspicious extra mesorectal lymph nodes: None. OTHER FINDINGS: Diverting end colostomy. Trabeculated appearance of the urinary bladder. Postsurgical changes of right inguinal hernia repair. No aggressive osseous lesions. IMPRESSION: Since 05/12/2022 and 02/03/2022, post treatment primary tumor assessment: Incomplete response (likely residual tumor). -Continued decrease in size of the upper rectal mass. mrTRG: Grade 3 - Moderate response Suspicious Mesorectal lymph nodes: No. Suspicious Extramesorectal lymph nodes: No. Search Marketing Specialist: PSCB Transcribe Date/Time: Sep 26 2022 3:20P Dictated by : GABY SHARIF MD This examination was interpreted and the report reviewed and electronically signed by: GABY SHARIF MD on Sep 26 2022 3:41PM EST [id number] Normal [facility] NURSING PROGon 09-26-2022 NURSING PROG HNO ID: [id number] Author: Kylah Butler RN Service: Nursing Author Type: Registered Nurse Type: Nursing Progress Note Filed: 09/26/2022 1:41 PM Note Text: Radiology Service Progress Note DATE OF SERVICE: September 26, 2022 TIME: 1:40 PM PATIENT WEIGHT: 133 LBS PATIENT IDENTITY VERIFICATION COMPLETED USING TWO (2) STANDARD IDENTIFIERS: Name and Date of confirmed by patient verbally. FALL SCREENING: Has the patient had 2 falls in the last year or 1 fall with injury or currently using an Ambulatory Assistive Device (Walker, Cane, Wheelchair, Crutches, etc.)? No PATIENT GENDER DATA: Male ALLERGIES: Reviewed and unchanged CONTRAST ALLERGY: No EXAM: CT -CONTRAST INDUCED NEPHROPATHY RISK FACTORS: History of Kidney surgery, Kidney neoplasm, Liver disease, and/or any recent Nephrotoxic Chemotherapy or other Nephrotoxic medications CREATININE: Creatinine Date Value Ref Range Status 08/26/2022 0.67 (L) 0.73 - 1.22 mg/dL Final 08/05/2022 0.68 (L) 0.73 - 1.22 mg/dL Final 07/15/2022 0.78 0.73 - 1.22 mg/dL Final Estimated Glomerular Filtration Rate Date Value Ref Range Status 08/26/2022 114 >=60 mL/min/1.73m? Final Comment: Estimated Glomerular Filtration Rate (eGFR) is calculated using the 2020 CKD-EPI creatinine equation. This equation utilizes serum creatinine, sex, and age as parameters. The creatinine assay has traceable calibration to isotope dilution-mass spectrometry. Refer to KDIGO guidelines for clinical interpretation. In patients with unstable renal function, e.g. those with acute kidney injury, the eGFR may not accurately reflect actual GFR. P.O.C.T. RESULTS: POC done: Yes, See Lab Tab September 26, 2022 TREATMENT: N/A IV SITE: Ambulatory: A peripheral IV was started in the Right antecubital site with a Angio cath: 22 gauge. IV SITE APPEARANCE: Clean,Dry and Intact Please leave in IV for MRI at [facility]. SIGNATURE: Kylah Butler RN PATIENT NAME: Hoang White DATE: September 26, 2022 TIME: 1:40 PM [facility] 09-23-2022 [facility] Telephone ([place]) -------- ESTRADAISACHOANG ([id number]) 1975 M Date Time Provider Department 09/23/22 SHERON HENDRICKSON) [facility] During your visit today, we recorded the following information about you: Sheron Daniels 09/23/2022 3:29 PM Signed MRI- 09/26/2022 @ 200PM Appointment reminder call- spoke with Elsa- gave directions to the office- states patient has another appointment before ours and will be here after Allergies As of Date: 09/23/2022 (No Known Allergies) Date Reviewed: 08/26/2022 Reviewed by: Temi Dean PA-C - Fully Assessed Reason for Visit: APPOINTMENT INSTRUCTIONS [Other] Cmt: MRI- 09/26/2022 @ 200PM Appointment reminder call- spoke with Elsa- gave directions to the office- states patient has another appointment before ours and will be here after Prescriptions as of 09/23/2022 - buPROPion XL (WELLBUTRIN XL) 300 mg 24 hr tablet Take 1 tablet by mouth once daily. Take wellbutrin 150 mg tablet daily for 5 days before starting 300 mg dose daily - capecitabine (XELODA) 500 mg tablet Take 3 tablets (1,500 mg) by mouth twice daily for 14 days. Followed by 7 days off start with the Oxaliplatin - Food Supplement, Lactose-Free (PROMOTE, OSMOLITE, TWO CADEN, ENSURE PLUS, ENLIVE) liqd Take 237 mL by mouth three times daily with meals. - prochlorperazine (COMPAZINE) 10 mg tablet Take 1 tablet by mouth every 6 hours as needed. - nicotine (NICODERM) 21 mg/24 hr Apply 1 Patch as directed every 24 hours. - ondansetron (ZOFRAN) 8 mg tablet Take 1 tablet by mouth every 8 hours as needed for nausea/vomiting. - loratadine (CLARITIN) 10 mg tablet Take 10 mg by mouth once daily. - atorvastatin (LIPITOR) 10 mg tablet Take 10 mg by mouth once daily. - acetaminophen (TYLENOL) 500 mg tablet Take 2 tablets by mouth every 6 hours. - lactobacillus rhamnosus (CULTURELLE) 10 billion cell capsule Take 1 capsule by mouth once daily. - levothyroxine (SYNTHROID) 125 mcg tablet Take 125 mcg by mouth once daily. 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] 01/17/2022 Red blood cell antibody positive [R76.8] 02/09/2022 History of intravenous drug abuse (HCC) [F19.11]02/16/2022 Smoker [F17.200] 02/16/2022 Rectal mass [K62.89] 02/16/2022 Rectal cancer (HCC) [C20] 02/21/2022 Severe protein-calorie malnutrition (HCC) [E43] 02/22/2022 Malaise and fatigue [R53.81, R53.83] 07/15/2022 Encounter Status:Closed by SHERON NAQVI on 09/23/22 [facility] 08-31-2022 [facility] Tele[facility] (REFAIR) -------- HOANG WHITE ([id number]) 1975 M Date Time Provider Department 08/31/22 MARY SOLORIO During your visit today, we recorded the following information about you: Catalina Muhammad 08/31/2022 10:39 AM Signed IRB # [id number] Tight perioperative blood pressure management to reduce serious cardiovascular, renal, and cognitive complications: The GUARDIAN trial PI: Mary Solorio MD, LUCIA, FASA. Outcomes Research Department. Anesthesia [place]. [facility]. This is a research study note. Patient assessments recorded here should not guide either clinical care or clinical decision-making. Hoang White was unavailable at the listed phone number. A voice message was left. We will attempt to contact the patient again in 6 months to complete the 12 month follow up. Catalina Muhammad Research Scheduler Maintenance Outcomes Research [facility] Allergies As of Date: 08/31/2022 (No Known Allergies) Date Reviewed: 08/26/2022 Reviewed by: Temi Dean PA-C - Fully Assessed Reason for Visit: Research Follow Up [Other] Prescriptions as of 08/31/2022 - capecitabine (XELODA) 500 mg tablet Take 3 tablets (1,500 mg) by mouth twice daily for 14 days. Followed by 7 days off start with the Oxaliplatin - Food Supplement, Lactose-Free (PROMOTE, OSMOLITE, TWO CADEN, ENSURE PLUS, ENLIVE) liqd Take 237 mL by mouth three times daily with meals. - prochlorperazine (COMPAZINE) 10 mg tablet Take 1 tablet by mouth every 6 hours as needed. - nicotine (NICODERM) 21 mg/24 hr Apply 1 Patch as directed every 24 hours. - buPROPion XL (WELLBUTRIN XL) 300 mg 24 hr tablet Take 1 tablet by mouth once daily. Take wellbutrin 150 mg tablet daily for 5 days before starting 300 mg dose daily - ondansetron (ZOFRAN) 8 mg tablet Take 1 tablet by mouth every 8 hours as needed for nausea/vomiting. - loratadine (CLARITIN) 10 mg tablet Take 10 mg by mouth once daily. - atorvastatin (LIPITOR) 10 mg tablet Take 10 mg by mouth once daily. - acetaminophen (TYLENOL) 500 mg tablet Take 2 tablets by mouth every 6 hours. - lactobacillus rhamnosus (CULTURELLE) 10 billion cell capsule Take 1 capsule by mouth once daily. - levothyroxine (SYNTHROID) 125 mcg tablet Take 125 mcg by mouth once daily. 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.8] 01/17/2022 Red blood cell antibody positive [R76.8] 02/09/2022 History of intravenous drug abuse (HCC) [F19.11]02/16/2022 Smoker [F17.200] 02/16/2022 Rectal mass [K62.89] 02/16/2022 Rectal cancer (HCC) [C20] 02/21/2022 Severe protein-calorie malnutrition (HCC) [E43] 02/22/2022 Malaise and fatigue [R53.81, R53.83] 07/15/2022 Encounter Status:Closed by CATALINA MUHAMMAD on 08/31/22 Normal [facility] CBC W Auto Differential pane l (Bld)on 08-26-2022 Basophils (Bld) [#/Vol] 10*3/uL Normal <0.11 [facility] Comment on above: Order Comment: Speci men Type: BLOOD SPECIMENOrdering Facility: [facility] Address: [address] [place] [address] Performed By: #### 5 7021-8 ####[facility] LABCLIA [id number] [place] [address] Basophils/100 WBC (Bld) 0.5 % Normal [facility] Comment on above: Order Comment: Speci men Type: BLOOD SPECIMENOrdering Facility: [facility] Address: [address] [place] [address] Performed By: #### 5 7021-8 ####[facility] LABCLIA [id number] [place] [address] Differential cell count method Nom (Bld) Auto Normal [facility] Comment on above: Order Comment: Speci men Type: BLOOD SPECIMENOrdering Facility: [facility] Address: [address] [place] [address] Performed By: #### 5 7021-8 ####[facility] LABCLIA [id number] [place] [address] Eosinophils (Bld) [#/Vol] 0.11 10*3/uL Normal <0.46 [facility] Comment on above: Order Comment: Speci men Type: BLOOD SPECIMENOrdering Facility: [facility] Address: [facility] [place] [address] Performed By: #### 5 7021-8 ####[facility] LABCLIA [id number] [place] [address] Eosinophils/100 WBC (Bld) 3.0 % Normal [facility] Comment on above: Order Comment: Speci men Type: BLOOD SPECIMENOrdering Facility: [facility] Address: [address] [place] [address] Performed By: #### 5 7021-8 ####[facility] LABCLIA [id number] [place] [address] Erythrocyte distribution width (RBC) [Ratio] 16.4 % High 11.5-15.0 [facility] Comment on above: Order Comment: Speci men Type: BLOOD SPECIMENOrdering Facility: [facility] Address: [address] [place] [address] Performed By: #### 5 7021-8 ####[facility] LABCLIA [id number] [place] [address] Hematocrit (Bld) [Volume fraction] 36.0 % Low 39.0-51.0 [facility] Comment on above: Order Comment: Speci men Type: BLOOD SPECIMENOrdering Facility: [facility] Address: [address] [place] [address] Performed By: #### 5 7021-8 ####[facility] LABCLIA [id number] [place] [address] Hemoglobin (Bld) [Mass/Vol] 12.6 g/dL Low 13.0-17.0 [facility] Comment on above: Order Comment: Speci men Type: BLOOD SPECIMENOrdering Facility: [facility] Address: [address] [place] [address] Performed By: #### 5 7021-8 ####[facility] LABCLIA [id number] [place] [address] Immature granulocytes (Bld) [#/Vol] 0.03 10*3/uL Normal <0.10 [facility] Comment on above: Order Comment: Speci men Type: BLOOD SPECIMENOrdering Facility: [facility] Address: [address] [place] [address] Performed By: #### 5 7021-8 ####[facility] LABCLIA [id number] [place] [address] Immature granulocytes/100 WBC (Bld) 0.8 % Normal [facility] Comment on above: Order Comment: Speci men Type: BLOOD SPECIMENOrdering Facility: [facility] Address: [address] [place] [address] Performed By: #### 5 7021-8 ####[facility] LABIA [id number] [place] [address] Lymphocytes (Bld) [#/Vol] 0.44 10*3/uL Low 1.00-4.00 [facility] Comment on above: Order Comment: Speci men Type: BLOOD SPECIMENOrdering Facility: [facility] Address: [address] [place] [address] Performed By: #### 5 7021-8 ####[facility] LABIA [id number] [place] [address] Lymphocytes/100 WBC (Bld) 11.8 % Normal [facility] Comment on above: Order Comment: Speci men Type: BLOOD SPECIMENOrdering Facility: [facility] Address: [address] [place] [address] Performed By: #### 5 7021-8 ####[facility] LABIA [id number] [place] [address] MCH (RBC) [Entitic mass] 33.2 pg Normal 26.0-34.0 [facility] Comment on above: Order Comment: Speci men Type: BLOOD SPECIMENOrdering Facility: [facility] Address: [address] [place] [address] Performed By: #### 5 7021-8 ####[facility] LABCLIA [id number] [place] [address] MCHC (RBC) [Mass/Vol] 35.0 g/dL Normal 30.5-36.0 [facility] Comment on above: Order Comment: Speci men Type: BLOOD SPECIMENOrdering Facility: [facility] Address: [address] [place] [address] Performed By: #### 5 7021-8 ####[facility] LABCLIA [id number] [place] [address] MCV (RBC) [Entitic vol] 94.7 fL Normal 80.0-100.0 [facility] Comment on above: Order Comment: Speci men Type: BLOOD SPECIMENOrdering Facility: [facility] Address: [address] [place] [address] Performed By: #### 5 7021-8 ####[facility] LABIA [id number] [place] [address] Monocytes (Bld) [#/Vol] 0.48 10*3/uL Normal <0.87 [facility] Comment on above: Order Comment: Speci men Type: BLOOD SPECIMENOrdering Facility: [facility] Address: [address] [place] [address] Performed By: #### 5 7021-8 ####[facility] LABCLIA [id number] [place] [address] Monocytes/100 WBC (Bld) 12.9 % Normal [facility] Comment on above: Order Comment: Speci men Type: BLOOD SPECIMENOrdering Facility: [facility] Address: [address] [place] [address] Performed By: #### 5 7021-8 ####[facility] LABIA [id number] [place] [address] Neutrophils (Bld) [#/Vol] 2.64 10*3/uL Normal 1.45-7.50 [facility] Comment on above: Order Comment: Speci men Type: BLOOD SPECIMENOrdering Facility: [facility] Address: [address] [place] [address] Performed By: #### 5 7021-8 ####[facility] LABCLIA [id number] [place] [address] Neutrophils/100 WBC (Bld) 71.0 % Normal [facility] Comment on above: Order Comment: Speci men Type: BLOOD SPECIMENOrdering Facility: [facility] Address: [address] [place] [address] Performed By: #### 5 7021-8 ####[facility] LABCLIA [id number] [place] [address] Nucleated RBC (Bld) [#/Vol] 10*3/uL Normal <0.01 [facility] Comment on above: Order Comment: Speci men Type: BLOOD SPECIMENOrdering Facility: [facility] Address: [address] [place] [address] Performed By: #### 5 7021-8 ####[facility] LABCLIA [id number] [place] [address] Nucleated RBC/100 WBC (Bld) [Ratio] 0.0 /100 WBC Normal [facility] Comment on above: Order Comment: Speci men Type: BLOOD SPECIMENOrdering Facility: [facility] Address: [address] [place] [address] Performed By: #### 5 7021-8 ####[facility] LABCLIA [id number] [place] [address] Platelet mean volume (Bld) [Entitic vol] 9.7 fL Normal 9.0-12.7 [facility] Comment on above: Order Comment: Speci men Type: BLOOD SPECIMENOrdering Facility: [facility] Address: [address] [place] [address] Performed By: #### 5 7021-8 ####[facility] LABCLIA [id number] [place] [address] Platelets (Bld) [#/Vol] 178 10*3/uL Normal 150-400 [facility] Comment on above: Order Comment: Speci men Type: BLOOD SPECIMENOrdering Facility: [facility] Address: [address] [place] [address] Performed By: #### 5 7021-8 ####[facility] LABCLIA [id number] [place] [address] RBC (Bld) [#/Vol] 3.80 10*6/uL Low 4.20-6.00 [facility] Comment on above: Order Comment: Speci men Type: BLOOD SPECIMENOrdering Facility: [facility] Address: [address] [place] [address] Performed By: #### 5 7021-8 ####[facility] LABCLIA [id number] [place] [address] WBC (Bld) [#/Vol] 3.72 10*3/uL Normal 3.70-11.00 [facility] Comment on above: Order Comment: Speci men Type: BLOOD SPECIMENOrdering Facility: [facility] Address: [address] [place] [address] Performed By: #### 5 7021-8 ####[facility] LABIA [id number] [place] [address] Basophils (Bld) [#/Vol] <0.11 k/uL [facility] Basophils/100 WBC (Bld) 0.5 % [facility] Differential cell count method Nom (Bld) Auto [facility] Eosinophils (Bld) [#/Vol] 0.11 10*3/uL <0.46 k/uL [facility] Eosinophils/100 WBC (Bld) 3.0 % [facility] Erythrocyte distribution width (RBC) [Ratio] 16.4 % High 11.5 - 15.0 % [facility] Hematocrit (Bld) [Volume fraction] 36.0 % Low 39.0 - 51.0 % [facility] Hemoglobin (Bld) [Mass/Vol] 12.6 g/dL Low 13.0 - 17.0 g/dL [facility] Immature granulocytes (Bld) [#/Vol] 0.03 10*3/uL <0.10 k/uL [facility] Immature granulocytes/100 WBC (Bld) 0.8 % [facility] Lymphocytes (Bld) [#/Vol] 0.44 10*3/uL Low 1.00 - 4.00 k/uL [facility] Lymphocytes/100 WBC (Bld) 11.8 % [facility] MCH (RBC) [Entitic mass] 33.2 pg 26.0 - 34.0 pg [facility] MCHC (RBC) [Mass/Vol] 35.0 g/dL 30.5 - 36.0 g/dL [facility] MCV (RBC) [Entitic vol] 94.7 fL 80.0 - 100.0 fL [facility] Monocytes (Bld) [#/Vol] 0.48 10*3/uL <0.87 k/uL [facility] Monocytes/100 WBC (Bld) 12.9 % [facility] Neutrophils (Bld) [#/Vol] 2.64 10*3/uL 1.45 - 7.50 k/uL [facility] Neutrophils/100 WBC (Bld) 71.0 % [facility] Nucleated RBC (Bld) [#/Vol] <0.01 k/uL [facility] Nucleated RBC/100 WBC (Bld) [Ratio] 0.0 /100 WBC [facility] Platelet mean volume (Bld) [Entitic vol] 9.7 fL 9.0 - 12.7 fL [facility] Platelets (Bld) [#/Vol] 178 10*3/uL 150 - 400 k/uL [facility] RBC (Bld) [#/Vol] 3.80 10*6/uL Low 4.20 - 6.0 0 m/uL [facility] WBC (Bld) [#/Vol] 3.72 10*3/uL 3.70 - 11. 00 k/uL [facility] CNOVSPon 08-26-2022 CNOVSP Visit (SP) Office ([place]) -------- ESTRADAHOANG ([id number]) 1975 M Date Time Provider Department 08/26/22 11:00 AM TEMI DEAN During your visit today, we recorded the following information about you: Temperature Pulse Respiration Blood pressure 97.2 degrees 73/minute 16/minute 102/74 Weight Height 60.4 kg 1.724 m Temi Dean PA-C 08/26/2022 12:07 PM Signed PATIENT NAME: Hoang Zuñigaregorio CLINIC NO.: [id number] ATTENDING PHYSICIAN: Oscar Gonzalez MD DATE OF SERVICE: August 26, 2022 (Elements copied from Dr. Gonzalez's note dated June 24, 2022, have been reviewed and updated where appropriate, and all reflect current assessment and medical decision making during today's encounter, August 26, 2022) CC: Follow up Diagnosis: 1. Upper rectal cancer, MRI staged T4a,N+,M0- Mod Diff Adenocarcinoma ( DIANNE) 2. Severe TR ( ECHO 12/2021 at [facility]): - The left ventricle is normal in size. Left ventricular systolic function is normal. EF = 60 ? 5% (2D biplane) Normal left ventricular diastolic function. Normal left atrial size. - Severe right atrial and ventricular dilatation. Right ventricular systolic function is normal including normal RV global strain (-24.0%). - Severe tricuspid regurgitation with hepatic vein systolic reversal. Leaflets thickened without obvious active vegetation. - Diastolic flattening of interventricular septum consistent with RV volume overload. - RVOT AT suggests normal mean PA pressures. 3. Previous h/o IVDA Treatment History: 1. 02/21/2022: Laparoscopic end colostomy 2. Xeloda and XRT 03/10/2022-04/15/2022- Plan for ISAÍAS 3. XELOX 06/03/2022 HPI: Jayce returns for his final xelox treatment. Is having cold induced neuropathy with each treatment. No ongoing neuropathy. No fevers, chills, nausea, vomiting or HFS. PAST MEDICAL HISTORY Diagnosis Date Adenocarcinoma of colon (HCC) Endocarditis 2003 Hypothyroidism Mass of colon [address] Jaquez Social History Tobacco Use Smoking status: Every Day Packs/day: 0.50 Years: 25.00 Pack years: 12.50 Types: Cigarettes Smokeless tobacco: Never Vaping Use Vaping Use: Never used Substance Use Topics Alcohol use: Yes Comment: 2 drinks/week; heavy in past Drug use: Not Currently Types: IV Comment: Past drug use of herorin FAMILY HISTORY Problem Relation Age of Onset Breast Cancer Sister Colon Cancer Maternal Grandfather Past medical, social and family history reviewed without any changes. REVIEW OF SYSTEMS GENERAL: No weight loss, malaise or fevers. No night sweats. HEENT: Negative for headaches, No changes in hearing or vision, no nose bleeds or other nasal problems. RESPIRATORY: Negative for cough, wheezing and shortness of breath CARDIOVASCULAR: Negative for chest pain, leg swelling and palpitations GI: Negative for abdominal discomfort, blood in stools or black stools and change in bowel habits : Negative for dysuria, frequency and incontinence MUSCULOSKELETAL: Negative for joint pain or swelling, back pain, and muscle pain. SKIN: Negative for lesions, rash, and itching. HEMATOLOGY/LYMPHOLOGY Negative for prolonged bleeding, bruising easily, and swollen nodes. NEURO: Negative for numbness or tingling of hands/feet. No weakness. PHYSICAL EXAMINATION: BP 102/74 Pulse 73 Temp (Src) 97.2 (Temporal) Resp 16 Ht 5' 7.874 (1.72m) Wt 133 lb 3.2 oz (60.4kg) SpO2 98% BMI 20.33 kg/(m2). ECOG PERFORMANCE STATUS: 0- Fully active, able to carry on all pre-disease performance w/o restriction. General: Alert and oriented, no distress, pleasant and cooperative. Heart: Regular, normal S1 and S2, no murmurs, rubs, or gallops Lungs: Clear to auscultation bilaterally Abdomen: Benign Extremities: Feet/ankles without edema, posterior tibial pulses full and symmetrical LABS: Glucose (mg/dL) Date Value 08/26/2022 103 Potassium (mmol/L) Date Value 08/26/2022 4.2 Sodium (mmol/L) Date Value 08/26/2022 141 Chloride (mmol/L) Date Value 08/26/2022 108 CO2 (mmol/L) Date Value 08/26/2022 25 Creatinine (mg/dL) Date Value 08/26/2022 0.67 BUN (mg/dL) Date Value 08/26/2022 19 Anion Gap (mmol/L) Date Value 08/26/2022 8 Calcium, Total (mg/dL) Date Value 08/26/2022 9.1 Protein, Total (g/dL) Date Value 08/26/2022 6.8 Albumin (g/dL) Date Value 08/26/2022 4.2 Bilirubin, Total (mg/dL) Date Value 08/26/2022 0.4 Alkaline Phosphatase (U/L) Date Value 08/26/2022 71 AST (U/L) Date Value 08/26/2022 27 ALT (U/L) Date Value 08/26/2022 13 WBC Date Value Ref Range Status 08/26/2022 3.72 3.70 - 11.00 k/uL Final RBC Date Value Ref Range Status 08/26/2022 3.80 (L) 4.20 - 6.00 m/uL Final Hemoglobin Date Value Ref Range Status 08/26/2022 12.6 (L) 13.0 - 17.0 g/dL Final Hematocrit Date Value Ref Rang (more content not included)... Normal [facility] CNPNon 08-26-2022 CNPN Telephone (REFAIR) -------- HOANG WHITE ([id number]) 1975 M Date Time Provider Department 08/26/22 MARY SOLORIO During your visit today, we recorded the following information about you: Catalina Muhammad 08/26/2022 1:37 PM Signed IRB # [id number] Tight perioperative blood pressure management to reduce serious cardiovascular, renal, and cognitive complications: The GUARDIAN trial PI: Mary Solorio MD, LUCIA, FASA. Outcomes Research Department. Anesthesia [place]. [facility]. This is a research study note. Patient assessments recorded here should not guide either clinical care or clinical decision-making. I called the patient, Hoang White, today regarding follow-up for the study IRB [id number] Tight Perioperative Blood pressure Management to Reduce Serious Cardiovascular, renal, and Cognitive Complications (GUARDIAN) Trial. The patient was busy and told me to call back in the morning next week. Catalina Muhammad Research Scheduler Maintenance Outcomes Research [facility] Allergies As of Date: 08/26/2022 (No Known Allergies) Date Reviewed: 08/26/2022 Reviewed by: Temi Dean PA-C - Fully Assessed Reason for Visit: Research Follow Up [Other] Prescriptions as of 08/26/2022 - iv contrast (will be provided with radiology test) MRI Rectum Inject, intravenously, once for 1 dose. No IV access, insert saline lock prior to the beginning of sedation, infusion, injection of imaging exam. Discontinue saline lock post exam. If Pt has a central line or IVAD, may access for administration according to line specific nursing protocol. Once exam is complete flush line and de-access according to line specific nursing protocol in the MR contrast administration guidelines link. - enteric contrast (will be provided with radiology test) MRI RECTUM WO/W. Administer, As Directed One Time Only, via Oral, Rectal, both Oral and Rectal, Enteric Tube, Stoma or Indwelling Catheter,? Enteric Contrast as designated per enteric contrast guidelines - iv contrast (will be provided with radiology test) CT Chest W -Inject, intravenously, once for 1 dose.No IV access, insert saline lock prior to the beginning of sedation, infusion, injection of imaging exam. Discontinue saline lock post exam. If Pt. has a central line or IVAD, may access for administration according to line specific nursing protocol. Once exam is complete flush line and de-access according to line specific nursing protocol in the CT contrast administration guidelines link. - capecitabine (XELODA) 150 mg tablet Take 5 tablets (750 mg) by mouth twice daily for 14 days with 1 other capecitabine prescription for 1,750 mg total. Oral chemotherapy agent; wear double gloves when handling. - capecitabine (XELODA) 500 mg tablet Take 2 tablets (1,000 mg) by mouth twice daily for 14 days with 1 other capecitabine prescription for 1,750 mg total. Oral chemotherapy agent; wear double gloves when handling. - Food Supplement, Lactose-Free (PROMOTE, OSMOLITE, TWO CADEN, ENSURE PLUS, ENLIVE) liqd Take 237 mL by mouth three times daily with meals. - prochlorperazine (COMPAZINE) 10 mg tablet Take 1 tablet by mouth every 6 hours as needed. - nicotine (NICODERM) 21 mg/24 hr Apply 1 Patch as directed every 24 hours. - capecitabine (XELODA) 500 mg tablet Take 3 tablets (1,500 mg) by mouth twice daily for 14 days. Followed by 7 days off start with the Oxaliplatin - buPROPion XL (WELLBUTRIN XL) 300 mg 24 hr tablet Take 1 tablet by mouth once daily. Take wellbutrin 150 mg tablet daily for 5 days before starting 300 mg dose daily - ondansetron (ZOFRAN) 8 mg tablet Take 1 tablet by mouth every 8 hours as needed for nausea/vomiting. - loratadine (CLARITIN) 10 mg tablet Take 10 mg by mouth once daily. - atorvastatin (LIPITOR) 10 mg tablet Take 10 mg by mouth once daily. - acetaminophen (TYLENOL) 500 mg tablet Take 2 tablets by mouth every 6 hours. - lactobacillus rhamnosus (CULTURELLE) 10 billion cell capsule Take 1 capsule by mouth once daily. - levothyroxine (SYNTHROID) 125 mcg tablet Take 125 mcg by mouth once daily. Facility-Administered Medications as of 08/26/2022 - oxaliplatin 228.8 mg in D5W 585.76 mL (ELOXATIN) - NaCl 0.9% iv infusion - diphenhydrAMINE 50 mg injection (BENADRYL) - hydrocortisone sodium succinate (PF) 100 mg injection (Solu-CORTEF) - EPINEPHrine 1 mg/mL (1 mL) 0.3 mg injection - cyanocobalamin 1,000 mcg injection - perflutren lipid microspheres 1.3 mL in NaCl (PF) 0.9% 10 mL injection (DEFINITY) - sodium chloride 0.9 % (flush) 10 mL (BD POSIFLUSH) Problem List As Of Date 08/26/2022 Noted Resolved History of endocarditis [Z86.79] 01/17/2022 Severe tricuspid regurgitation [I07.1] 01/17/2022 Abnormality of right ventricle of heart [Q20.8] 01/17/2022 Red blood cell antibody positive [R76.8] (more content not included)... Normal [facility] metabolic 2000 panelon 08-26-2022 Albumin [Mass/Vol] 4.2 g/dL Normal 3.9-4.9 [facility] Comment on above: Order Comment: Speci men Type: BLOOD SPECIMENOrdering Facility: [facility] Address: [address] [place] [address] Performed By: #### 2 4323-8 ####[facility] LABCLIA [id number] [place] [address] ALP [Catalytic activity/Vol] 71 U/L Normal 38-113 [facility] Comment on above: Order Comment: Speci men Type: BLOOD SPECIMENOrdering Facility: [facility] Address: [address] [place] [address] Performed By: #### 2 4323-8 ####[facility] LABCLIA [id number] [place] [address] ALT [Catalytic activity/Vol] 13 U/L Normal 10-54 [facility] Comment on above: Order Comment: Speci men Type: BLOOD SPECIMENOrdering Facility: [facility] Address: [address] [place] [address] Performed By: #### 2 4323-8 ####[facility] LABCLIA [id number] [place] [address] Anion gap [Moles/Vol] 8 mmol/L Low 9-18 [facility] Comment on above: Order Comment: Speci men Type: BLOOD SPECIMENOrdering Facility: [facility] Address: [address] [place] [address] Performed By: #### 2 4323-8 ####[facility] LABCLIA [id number] [place] [address] AST [Catalytic activity/Vol] 27 U/L Normal 14-40 [facility] Comment on above: Order Comment: Speci men Type: BLOOD SPECIMENOrdering Facility: [facility] Address: [address] [address] Performed By: #### 2 4323-8 ####[facility] LABCLIA [id number] [place] [address] Bilirubin [Mass/Vol] 0.4 mg/dL Normal 0.2-1.3 [facility] Comment on above: Order Comment: Speci men Type: BLOOD SPECIMENOrdering Facility: [facility] Address: [address] [place] [address] Performed By: #### 2 4323-8 ####[facility] LABCLIA [id number] [place] [address] Calcium [Mass/Vol] 9.1 mg/dL Normal 8.5-10.2 [facility] Comment on above: Order Comment: Speci men Type: BLOOD SPECIMENOrdering Facility: [facility] Address: [address] [place] [address] Performed By: #### 2 4323-8 ####[facility] LABCLIA [id number] [place] [address] Chloride [Moles/Vol] 108 mmol/L High 97-105 [facility] Comment on above: Order Comment: Speci men Type: BLOOD SPECIMENOrdering Facility: [facility] Address: [address] [place] [address] Performed By: #### 2 4323-8 ####[facility] LABCLIA [id number] [place] [address] CO2 [Moles/Vol] 25 mmol/L Normal 22-30 [facility] Comment on above: Order Comment: Speci men Type: BLOOD SPECIMENOrdering Facility: [facility] Address: [address] [place] [address] Performed By: #### 2 4323-8 ####[facility] LABCLIA [id number] [place] [address] Creatinine [Mass/Vol] 0.67 mg/dL Low 0.73-1.22 [facility] Comment on above: Order Comment: Gerry ibrahim Type: BLOOD SPECIMENOrdering Facility: [facility] Address: [address] [id number] Performed By: #### 2 4323-8 ####[facility] LABCLIA [id number] [place] [address] ESTIMATED GLOMERULAR FILTRATION RATE 114 mL/min/1.73m??? Normal >=60 [facility] Comment on above: Order Comment: Gerry ibrahim Type: BLOOD SPECIMENOrdering Facility: [facility] Address: [address] [place], [place] [address] Result Comment: Tanya mated Glomerular Filtration Rate (eGFR) is calculated using the 2020 CKD-EPI creatinine equation. This equation utilizes serum creatinine, sex, and age as parameters. The creatinine assay has traceable calibration to isotope dilution-mass spectrometry. Refer to KDIGO guidelines for clinical interpretation. In patients with unstable renal function, e.g. those with acute kidney injury, the eGFR may not accurately reflect actual GFR. Performed By: #### 2 4323-8 ####[facility] LABCLIA [id number] [place] [address] Glucose [Mass/Vol] 103 mg/dL High 74-99 [facility] Comment on above: Order Comment: Gerry alexandria Type: BLOOD SPECIMENOrdering Facility: [facility] Address: [address] [place] [address] Result Comment: The [place] Diabetes Association (ADA) provides guidance for cutoff values for fasting glucose and random glucose. The ADA defines fasting as no caloric intake for at least 8 hours. Fasting plasma glucose results between 100 to 125 mg/dL indicate increased risk for diabetes (prediabetes). Fasting plasma glucose results greater than or equal to 126 mg/dL meet the criteria for diagnosis of diabetes. In the absence of unequivocal hyperglycemia, results should be confirmed by repeat testing. In a patient with classic symptoms of hyperglycemia or hyperglycemic crisis, random plasma glucose results greater than or equal to 200 mg/dL meet the criteria for diagnosis of diabetes. Reference: Standards of Medical Care in Diabetes 2016, [place] [employer]. Diabetes Care. 2016.39(Suppl 1). Performed By: #### 2 4323-8 ####[facility] LABCLIA [id number] [place] [address] Potassium [Moles/Vol] 4.2 mmol/L Normal 3.7-5.1 [facility] Comment on above: Order Comment: Speci men Type: BLOOD SPECIMENOrdering Facility: [facility] Address: [address] [place] [address] Performed By: #### 2 4323-8 ####[facility] LABCLIA [id number] [place] [address] Protein [Mass/Vol] 6.8 g/dL Normal 6.3-8.0 [facility] Comment on above: Order Comment: Speci men Type: BLOOD SPECIMENOrdering Facility: [facility] Address: [address] [place] [address] Performed By: #### 2 4323-8 ####[facility] LABCLIA [id number] [place] [address] Sodium [Moles/Vol] 141 mmol/L Normal 136-144 [facility] Comment on above: Order Comment: Speci men Type: BLOOD SPECIMENOrdering Facility: [facility] Address: [address] [place] [address] Performed By: #### 2 4323-8 ####[facility] LABCLIA [id number] [place] [address] Urea nitrogen [Mass/Vol] 19 mg/dL Normal 9-24 [facility] Comment on above: Order Comment: Speci men Type: BLOOD SPECIMENOrdering Facility: [facility] Address: [address] [place] [address] Performed By: #### 2 4323-8 ####[facility] LABCLIA [id number] [place] [address] Albumin [Mass/Vol] 4.2 g/dL 3.9 - 4.9 g/dL [facility] ALP [Catalytic activity/Vol] 71 U/L 38 - 113 U/L [facility] ALT [Catalytic activity/Vol] 13 U/L 10 - 54 U/L [facility] Anion gap [Moles/Vol] 8 mmol/L Low 9 - 18 mmol/L [facility] AST [Catalytic activity/Vol] 27 U/L 14 - 40 U/L [facility] Bilirubin [Mass/Vol] 0.4 mg/dL 0.2 - 1.3 mg/dL [facility] Calcium [Mass/Vol] 9.1 mg/dL 8.5 - 10. 2 mg/dL [facility] Chloride [Moles/Vol] 108 mmol/L High 97 - 105 mmol/L [facility] CO2 [Moles/Vol] 25 mmol/L 22 - 30 mmol/L [facility] Creatinine [Mass/Vol] 0.67 mg/dL Low 0.73 - 1.22 mg/dL [facility] Estimated Glomerular Filtration Rate 114 mL/min/1.73m >=60 mL/min/1.73m [facility] Glucose [Mass/Vol] 103 mg/dL High 74 - 99 mg/dL [facility] Potassium [Moles/Vol] 4.2 mmol/L 3.7 - 5.1 mmol/L [facility] Protein [Mass/Vol] 6.8 g/dL 6.3 - 8.0 g/dL [facility] Sodium [Moles/Vol] 141 mmol/L 136 - 144 mmol/L [facility] Urea nitrogen [Mass/Vol] 19 mg/dL 9 - 24 mg/dL [facility] Redd 08-25-2022 AMY Telephone (REF) -------- HOANG WHITE ([id number]) 1975 M Date Time Provider Department 08/25/22 MARY SOLORIO During your visit today, we recorded the following information about you: Catalina Muhammad 08/25/2022 12:36 PM Signed IRB # [id number] Tight perioperative blood pressure management to reduce serious cardiovascular, renal, and cognitive complications: The GUARDIAN trial PI: Mary Solorio MD, LUCIA, YASMINA. Outcomes Research Department. Anesthesia [place]. [facility]. This is a research study note. Patient assessments recorded here should not guide either clinical care or clinical decision-making. Hoang White was unavailable at the listed phone number. A voice message was left. We will attempt to contact the patient again at a later date. Catalina Muhammad Research Scheduler Maintenance Department of OUTCOMES RESEARCH An[facility] [place] Allergies As of Date: 08/25/2022 (No Known Allergies) Date Reviewed: 08/05/2022 Reviewed by: Bárbara Sexton MA - Fully Assessed Reason for Visit: Research Follow Up [Other] Prescriptions as of 08/25/2022 - Food Supplement, Lactose-Free (PROMOTE, OSMOLITE, TWO CADEN, ENSURE PLUS, ENLIVE) liqd Take 237 mL by mouth three times daily with meals. - prochlorperazine (COMPAZINE) 10 mg tablet Take 1 tablet by mouth every 6 hours as needed. - nicotine (NICODERM) 21 mg/24 hr Apply 1 Patch as directed every 24 hours. - capecitabine (XELODA) 500 mg tablet Take 3 tablets (1,500 mg) by mouth twice daily for 14 days. Followed by 7 days off start with the Oxaliplatin - buPROPion XL (WELLBUTRIN XL) 300 mg 24 hr tablet Take 1 tablet by mouth once daily. Take wellbutrin 150 mg tablet daily for 5 days before starting 300 mg dose daily - ondansetron (ZOFRAN) 8 mg tablet Take 1 tablet by mouth every 8 hours as needed for nausea/vomiting. - loratadine (CLARITIN) 10 mg tablet Take 10 mg by mouth once daily. - atorvastatin (LIPITOR) 10 mg tablet Take 10 mg by mouth once daily. - acetaminophen (TYLENOL) 500 mg tablet Take 2 tablets by mouth every 6 hours. - lactobacillus rhamnosus (CULTURELLE) 10 billion cell capsule Take 1 capsule by mouth once daily. - levothyroxine (SYNTHROID) 125 mcg tablet Take 125 mcg by mouth once daily. Facility-Administered Medications as of 08/25/2022 - perflutren lipid microspheres 1.3 mL in NaCl (PF) 0.9% 10 mL injection (DEFINITY) - sodium chloride 0.9 % (flush) 10 mL (BD POSIFLUSH) Problem List As Of Date 08/25/2022 Noted Resolved History of endocarditis [Z86.79] 01/17/2022 Severe tricuspid regurgitation [I07.1] 01/17/2022 Abnormality of right ventricle of heart [Q20.8] 01/17/2022 Red blood cell antibody positive [R76.8] 02/09/2022 History of intravenous drug abuse (HCC) [F19.11]02/16/2022 Smoker [F17.200] 02/16/2022 Rectal mass [K62.89] 02/16/2022 Rectal cancer (HCC) [C20] 02/21/2022 Severe protein-calorie malnutrition (HCC) [E43] 02/22/2022 Malaise and fatigue [R53.81, R53.83] 07/15/2022 Encounter Status:Closed by CATALINA MUHAMMAD on 08/25/22 [facility] 08-08-2022 [facility] Telephone (HEM[place]) -------- HOANG WHITE ([id number]) 1975 M Date Time Provider Department 08/08/22 MEGHAN PICHARDO During your visit today, we recorded the following information about you: Meghan Pichardo RN 08/08/2022 9:32 AM Signed Call received from [employer]ried[facility] at [employer] in [place] requesting ICD codes to use for pt's order for ensure. Codes provided. Meghan Pichardo RN Allergies As of Date: 08/08/2022 (No Known Allergies) Date Reviewed: 08/05/2022 Reviewed by: Bárbara Sexton MA - Fully Assessed Reason for Visit: Care Coordination [3491] Cmt: Clinical update Prescriptions as of 08/08/2022 - Food Supplement, Lactose-Free (PROMOTE, OSMOLITE, TWO CADEN, ENSURE PLUS, ENLIVE) liqd Take 237 mL by mouth three times daily with meals. - prochlorperazine (COMPAZINE) 10 mg tablet Take 1 tablet by mouth every 6 hours as needed. - nicotine (NICODERM) 21 mg/24 hr Apply 1 Patch as directed every 24 hours. - capecitabine (XELODA) 500 mg tablet Take 3 tablets (1,500 mg) by mouth twice daily for 14 days. Followed by 7 days off start with the Oxaliplatin - buPROPion XL (WELLBUTRIN XL) 150 mg 24 hr tablet Take 1 tablet by mouth once daily for 5 days. - buPROPion XL (WELLBUTRIN XL) 300 mg 24 hr tablet Take 1 tablet by mouth once daily. Take wellbutrin 150 mg tablet daily for 5 days before starting 300 mg dose daily - ondansetron (ZOFRAN) 8 mg tablet Take 1 tablet by mouth every 8 hours as needed for nausea/vomiting. - loratadine (CLARITIN) 10 mg tablet Take 10 mg by mouth once daily. - atorvastatin (LIPITOR) 10 mg tablet Take 10 mg by mouth once daily. - PROBIOTIC FORMULA, INULIN, 1 billion-250 cell-mg cap Take 1 capsule by mouth once daily. - acetaminophen (TYLENOL) 500 mg tablet Take 2 tablets by mouth every 6 hours. - gabapentin (NEURONTIN) 300 mg capsule Take 1 capsule by mouth every 8 hours for 14 days. - lactobacillus rhamnosus (CULTURELLE) 10 billion cell capsule Take 1 capsule by mouth once daily. - traMADol (ULTRAM) 50 mg tablet Take 1 tablet by mouth every 6 hours as needed. - levothyroxine (SYNTHROID) 125 mcg tablet Take 125 mcg by mouth once daily. - Ibuprofen 200 mg cap Take by mouth every 6 hours as needed. Facility-Administered Medications as of 08/08/2022 - perflutren lipid microspheres 1.3 mL in NaCl (PF) 0.9% 10 mL injection (DEFINITY) - sodium chloride 0.9 % (flush) 10 mL (BD POSIFLUSH) Problem List As Of Date 08/08/2022 Noted Resolved History of endocarditis [Z86.79] 01/17/2022 Severe tricuspid regurgitation [I07.1] 01/17/2022 Abnormality of right ventricle of heart [Q20.8] 01/17/2022 Red blood cell antibody positive [R76.8] 02/09/2022 History of intravenous drug abuse (HCC) [F19.11]02/16/2022 Smoker [F17.200] 02/16/2022 Rectal mass [K62.89] 02/16/2022 Rectal cancer (HCC) [C20] 02/21/2022 Severe protein-calorie malnutrition (HCC) [E43] 02/22/2022 Malaise and fatigue [R53.81, R53.83] 07/15/2022 Encounter Status:Closed by MEGHAN PICHARDO on 08/08/22 Normal [facility] CBC W Auto Differential pane l (Bld)on 08-05-2022 Basophils (Bld) [#/Vol] 0.03 10*3/uL Normal <0.11 [facility] Comment on above: Order Comment: Speci men Type: BLOOD SPECIMENOrdering Facility: [facility] Address: [address] [place] [address] Performed By: #### 5 7021-8 ####[facility] LABIA [id number] [place] [address] Basophils/100 WBC (Bld) 0.8 % Normal [facility] Comment on above: Order Comment: Speci men Type: BLOOD SPECIMENOrdering Facility: [facility] Address: [address] [place] [address] Performed By: #### 5 7021-8 ####[facility] LABCLIA [id number] [place] [address] Differential cell count method Nom (Bld) Auto Normal [facility] Comment on above: Order Comment: Speci men Type: BLOOD SPECIMENOrdering Facility: [facility] Address: [address] [place] [address] Performed By: #### 5 7021-8 ####[facility] LABCLIA [id number] [place] [address] Eosinophils (Bld) [#/Vol] 0.20 10*3/uL Normal <0.46 [facility] Comment on above: Order Comment: Speci men Type: BLOOD SPECIMENOrdering Facility: [facility] Address: [address] [place] [address] Performed By: #### 5 7021-8 ####[facility] LABCLIA [id number] [place] [address] Eosinophils/100 WBC (Bld) 5.6 % Normal [facility] Comment on above: Order Comment: Speci men Type: BLOOD SPECIMENOrdering Facility: [facility] Address: [address] [place] [address] Performed By: #### 5 7021-8 ####[facility] LABCLIA [id number] [place] [address] Erythrocyte distribution width (RBC) [Ratio] 15.1 % High 11.5-15.0 [facility] Comment on above: Order Comment: Speci men Type: BLOOD SPECIMENOrdering Facility: [facility] Address: [address] [place] [address] Performed By: #### 5 7021-8 ####[facility] LABCLIA [id number] [place] [address] Hematocrit (Bld) [Volume fraction] 39.3 % Normal 39.0-51.0 [facility] Comment on above: Order Comment: Speci men Type: BLOOD SPECIMENOrdering Facility: [facility] Address: [address] [place] [address] Performed By: #### 5 7021-8 ####[facility] LABIA [id number] [place] [address] Hemoglobin (Bld) [Mass/Vol] 13.6 g/dL Normal 13.0-17.0 [facility] Comment on above: Order Comment: Speci men Type: BLOOD SPECIMENOrdering Facility: [facility] Address: [address] [place] [address] Performed By: #### 5 7021-8 ####[facility] LABCLIA [id number] [place] [address] IMMATURE GRAN % 0.3 % Normal [facility] Comment on above: Order Comment: Speci men Type: BLOOD SPECIMENOrdering Facility: [facility] Address: [address] [place] [address] Performed By: #### 5 7021-8 ####[facility] LABCLIA [id number] [place] [address] IMMATURE GRAN ABS <0.03 Normal <0.10 [facility] Comment on above: Order Comment: Speci men Type: BLOOD SPECIMENOrdering Facility: [facility] Address: [address] [place] [address] Performed By: #### 5 7021-8 ####[facility] LABCLIA [id number] [place] [address] Lymphocytes (Bld) [#/Vol] 0.56 10*3/uL Low 1.00-4.00 [facility] Comment on above: Order Comment: Speci men Type: BLOOD SPECIMENOrdering Facility: [facility] Address: [address] [place] [address] Performed By: #### 5 7021-8 ####[facility] LABCLIA [id number] [place] [address] Lymphocytes/100 WBC (Bld) 15.8 % Normal [facility] Comment on above: Order Comment: Speci men Type: BLOOD SPECIMENOrdering Facility: [facility] Address: [address] [place] [address] Performed By: #### 5 7021-8 ####[facility] LABCLIA [id number] [place] [address] MCH (RBC) [Entitic mass] 33.2 pg Normal 26.0-34.0 [facility] Comment on above: Order Comment: Speci men Type: BLOOD SPECIMENOrdering Facility: [facility] Address: [address] [place] [address] Performed By: #### 5 7021-8 ####[facility] LABCLIA [id number] [place] [address] MCHC (RBC) [Mass/Vol] 34.6 g/dL Normal 30.5-36.0 [facility] Comment on above: Order Comment: Speci men Type: BLOOD SPECIMENOrdering Facility: [facility] Address: [address] [place] [address] Performed By: #### 5 7021-8 ####[facility] LABCLIA [id number] [place] [address] MCV (RBC) [Entitic vol] 95.9 fL Normal 80.0-100.0 [facility] Comment on above: Order Comment: Speci men Type: BLOOD SPECIMENOrdering Facility: [facility] Address: [address] [place] [address] Performed By: #### 5 7021-8 ####[facility] LABCLIA [id number] [place] [address] Monocytes (Bld) [#/Vol] 0.43 10*3/uL Normal <0.87 [facility] Comment on above: Order Comment: Speci men Type: BLOOD SPECIMENOrdering Facility: [facility] Address: [address] [place] [address] Performed By: #### 5 7021-8 ####[facility] LABCLIA [id number] [place] [address] Monocytes/100 WBC (Bld) 12.1 % Normal [facility] Comment on above: Order Comment: Speci men Type: BLOOD SPECIMENOrdering Facility: [facility] Address: [address] [place] [address] Performed By: #### 5 7021-8 ####[facility] LABCLIA [id number] [place] [address] Neutrophils (Bld) [#/Vol] 2.31 10*3/uL Normal 1.45-7.50 [facility] Comment on above: Order Comment: Speci men Type: BLOOD SPECIMENOrdering Facility: [facility] Address: [address] [place] [address] Performed By: #### 5 7021-8 ####[facility] LABCLIA [id number] [place] [address] Neutrophils/100 WBC (Bld) 65.4 % Normal [facility] Comment on above: Order Comment: Speci men Type: BLOOD SPECIMENOrdering Facility: [facility] Address: [address] [place] [address] Performed By: #### 5 7021-8 ####[facility] LABCLIA [id number] [place] [address] Nucleated RBC (Bld) [#/Vol] 10*3/uL Normal <0.01 [facility] Comment on above: Order Comment: Speci men Type: BLOOD SPECIMENOrdering Facility: [facility] Address: [address] [place] [address] Performed By: #### 5 7021-8 ####[facility] LABCLIA [id number] [place] [address] Nucleated RBC/100 WBC (Bld) [Ratio] 0.0 /100 WBC Normal [facility] Comment on above: Order Comment: Speci men Type: BLOOD SPECIMENOrdering Facility: [facility] Address: [address] [place] [address] Performed By: #### 5 7021-8 ####[facility] LABIA [id number] [place] [address] Platelet mean volume (Bld) [Entitic vol] 9.8 fL Normal 9.0-12.7 [facility] Comment on above: Order Comment: Speci men Type: BLOOD SPECIMENOrdering Facility: [facility] Address: [address] [place] [address] Performed By: #### 5 7021-8 ####[facility] LABCLIA [id number] [place] [address] Platelets (Bld) [#/Vol] 160 10*3/uL Normal 150-400 [facility] Comment on above: Order Comment: Speci men Type: BLOOD SPECIMENOrdering Facility: [facility] Address: [address] [place] [address] Performed By: #### 5 7021-8 ####[facility] LABIA [id number] [place] [address] RBC (Bld) [#/Vol] 4.10 10*6/uL Low 4.20-6.00 [facility] Comment on above: Order Comment: Speci men Type: BLOOD SPECIMENOrdering Facility: [facility] Address: [address] [place] [address] Performed By: #### 5 7021-8 ####[facility] LABIA [id number] [place] [address] WBC (Bld) [#/Vol] 3.54 10*3/uL Low 3.70-11.00 [facility] Comment on above: Order Comment: Speci men Type: BLOOD SPECIMENOrdering Facility: [facility] Address: [address] [place] [address] Performed By: #### 5 7021-8 ####[facility] LABIA [id number] [place] [address] Basophils (Bld) [#/Vol] 0.03 10*3/uL <0.11 k/uL [facility] Basophils/100 WBC (Bld) 0.8 % [facility] Differential cell count method Nom (Bld) Auto [facility] Eosinophils (Bld) [#/Vol] 0.20 10*3/uL <0.46 k/uL [facility] Eosinophils/100 WBC (Bld) 5.6 % [facility] Erythrocyte distribution width (RBC) [Ratio] 15.1 % High 11.5 - 15.0 % [facility] Hematocrit (Bld) [Volume fraction] 39.3 % 39.0 - 51.0 % [facility] Hemoglobin (Bld) [Mass/Vol] 13.6 g/dL 13.0 - 17.0 g/dL [facility] Immature granulocytes (Bld) [#/Vol] <0.10 k/uL [facility] Immature granulocytes/100 WBC (Bld) 0.3 % [facility] Lymphocytes (Bld) [#/Vol] 0.56 10*3/uL Low 1.00 - 4.00 k/uL [facility] Lymphocytes/100 WBC (Bld) 15.8 % [facility] MCH (RBC) [Entitic mass] 33.2 pg 26.0 - 34.0 pg [facility] MCHC (RBC) [Mass/Vol] 34.6 g/dL 30.5 - 36.0 g/dL [facility] MCV (RBC) [Entitic vol] 95.9 fL 80.0 - 100.0 fL [facility] Monocytes (Bld) [#/Vol] 0.43 10*3/uL <0.87 k/uL [facility] Monocytes/100 WBC (Bld) 12.1 % [facility] Neutrophils (Bld) [#/Vol] 2.31 10*3/uL 1.45 - 7.50 k/uL [facility] Neutrophils/100 WBC (Bld) 65.4 % [facility] Nucleated RBC (Bld) [#/Vol] <0.01 k/uL [facility] Nucleated RBC/100 WBC (Bld) [Ratio] 0.0 /100 WBC [facility] Platelet mean volume (Bld) [Entitic vol] 9.8 fL 9.0 - 12.7 fL [facility] Platelets (Bld) [#/Vol] 160 10*3/uL 150 - 400 k/uL [facility] RBC (Bld) [#/Vol] 4.10 10*6/uL Low 4.20 - 6.0 0 m/uL [facility] WBC (Bld) [#/Vol] 3.54 10*3/uL Low 3.70 - 11. 00 k/uL [facility] CNCOon 08-05-2022 CNCO Letter Text Normal [facility] CNOVon 08-05-2022 CNOV Office Visit (RADTSA ) -------- HOANG WHITE ([id number]) 1975 M Date Time Provider Department 08/05/22 9:00 AM TYLOR DAVALOS During your visit today, we recorded the following information about you: Temperature Pulse Respiration Blood pressure 97.1 degrees 69/minute 16/minute 115/76 Weight 60.8 kg Tylor Davalos MD 08/17/2022 4:39 AM Addendum Radiation Oncology - Follow Up Note PATIENT NAME: Hoang White PATIENT DIAGNOSIS/PATIENT IDENTIFICATION: Mr. White is a 47-year-old gentleman recently diagnosed with stage IIIC, [id number] adenocarcinoma of the rectum status post colonoscopy and biopsy on 12/24/2021. Staging work-up with MRI of the rectum from 02/03/2022 described a 6.8 cm upper rectal mass with invasion into the right lateral peritoneal reflection multiple suspicious lymph nodes. CT chest abdomen pelvis from 01/13/2022 was negative for definite signs of regional or distant disease. His case was reviewed at the multidisciplinary colorectal tumor board with recommendation for total neoadjuvant therapy starting with chemoradiation prior to surgical resection. After a diverting colostomy, he completed a course of chemoradiation therapy on 04/15/2022 (5000 cGy delivered in 25 fractions with concurrent Xeloda). INTERVAL HISTORY/ROS: Mr. White returns to clinic today for routine follow-up approximately four months after the completion of his radiation treatments. In the interim, he had initial postradiation imaging with MRI of the rectum on 05/12/2022 which showed excellent partial response. He then initiated full dose systemic therapy with XELOX on 06/03/[address] Karamlou. He reports he has been tolerating fairly well but does note fatigue as well as decreased appetite with stable weight. He notes that his colostomy continues to function well without issues and denies any diarrhea or bloody output. He also notes occasional output per rectum which is 10 and decreased from before. He denies any perianal rectal pain or skin irritation/breakdown. He also denies any urinary issues. He continues to note persistent nausea which he manages with antiemetics. He otherwise denies any recent fevers, chills, headaches, difficulty with speech/swallowing, shortness of breath, chest pain/palpitations, abdominal pain, nausea, vomiting, change in bowel/urinary habits, difficulty with gait/balance, recent falls, etc. The remainder of the review of systems was performed and was otherwise noncontributory. ALLERGIES ALLERGIES No Known Allergies MEDICATIONS: Current Outpatient Medications: prochlorperazine (COMPAZINE) 10 mg tablet nicotine (NICODERM) 21 mg/24 hr capecitabine (XELODA) 500 mg tablet buPROPion XL (WELLBUTRIN XL) 300 mg 24 hr tablet ondansetron (ZOFRAN) 8 mg tablet loratadine (CLARITIN) 10 mg tablet atorvastatin (LIPITOR) 10 mg tablet levothyroxine (SYNTHROID) 125 mcg tablet Food Supplement, Lactose-Free (PROMOTE, OSMOLITE, TWO CADEN, ENSURE PLUS, ENLIVE) liqd acetaminophen (TYLENOL) 500 mg tablet lactobacillus rhamnosus (CULTURELLE) 10 billion cell capsule Current Facility-Administered Medications: perflutren lipid microspheres 1.3 mL in NaCl (PF) 0.9% 10 mL injection (DEFINITY) sodium chloride 0.9 % (flush) 10 mL (BD POSIFLUSH) PHYSICAL EXAM: GENERAL: Middle-age gentleman sitting in chair in no acute distress. VITALS: BP 115/76 Pulse 69 Temp 97.1 Resp 16 Wt 134 lb (60.8kg) SpO2 100% KPS: 90 HEENT: NC/AT, anicteric sclera HEART: S1S2 LUNGS: non-labored breathing ABDOMEN: soft MUSCULOSKELETAL: no peripheral edema, moves all extremities. NEURO: no focal deficit; AANDO X3. RADIOLOGIC DATA: MRI Rectum (05/12/2022) IMPRESSION: Since MRI 02/03/2022, post treatment primary tumor assessment: Incomplete response (likely residual tumor). -There is interval decrease in tumor bulk with persistent tumor visualized within the upper rectum/sigmoid colon. mrTRG: Grade 4 - Partial response Suspicious Mesorectal lymph nodes: Yes. Interval decrease in size of superior rectal lymph nodes with residual superior rectal lymph node measuring up to 0.4 cm. Suspicious Extramesorectal lymph nodes: No. TREATED PRIMARY TUMOR CHARACTERISTICS (Compare to pre-treatment): DWI (with associated low ADC) ? restricted diffusion and low ADC in tumor or tumor bed: Present, improved from prior. MRI-T2W: Intermediate signal intensity, no dark T2/scar. T2 bright mucin (cannot distinguish between cellular and acellular mucin): Absent Distance of the inferior margin of treated tumor to the anal verge: 10.6 cm (series 6 image 21) Distance of the inferior margin to the top of sphincter complex/anorectal junction: 7.3 cm (series 6 image 21) Relationship to anterior peritoneal reflection: Above Craniocaudal length: 3.5 cm (series 5 image 24) Pre-t (more content not included)... Normal [facility] CNOVSPon 08-05-2022 CNOVSP Visit (SP) Office (HEMASA) -------- HOANG WHITE ([id number]) 1975 M Date Time Provider Department 08/05/22 9:45 AM OSCAR GONZALEZ During your visit today, we recorded the following information about you: Temperature Pulse Respiration Blood pressure 97.1 degrees 69/minute 16/minute 115/76 Weight Height 60.8 kg 1.724 m Oscar Gonzalez MD 08/05/2022 10:13 AM Signed PATIENT NAME: Hoang Estrada CLINIC NO.: [id number] ATTENDING PHYSICIAN: Oscar Gonzalez MD DATE OF SERVICE: June 24, 2022 Some of the elements of this note have been copied from my previous progress note dated 06/24/2022. All the information has been reviewed carefully. Dear Dr. Ana Enriquez, here is an update on a follow up visit on male Hoang White at the clinic June 24, 2022 Diagnosis: 1. Upper rectal cancer, MRI staged T4a,N+,M0- Mod Diff Adenocarcinoma ( DIANNE) 2. Severe TR ( ECHO 12/2021 at [facility]): - The left ventricle is normal in size. Left ventricular systolic function is normal. EF = 60 ? 5% (2D biplane) Normal left ventricular diastolic function. Normal left atrial size. - Severe right atrial and ventricular dilatation. Right ventricular systolic function is normal including normal RV global strain (-24.0%). - Severe tricuspid regurgitation with hepatic vein systolic reversal. Leaflets thickened without obvious active vegetation. - Diastolic flattening of interventricular septum consistent with RV volume overload. - RVOT AT suggests normal mean PA pressures. 3. Previous h/o IVDA Treatment History: 1. 02/21/2022: Laparoscopic end colostomy 2. Xeloda and XRT 03/10/2022-04/15/2022- Plan for ISAÍAS 3. XELOX 06/03/2022 HPI: Hoang White is a 46 year old year old male here for follow up. Actually feels well and denies any fevers and or chills. Denies any rashes and also nausea well controlled. Denies any neuropathy and appetite stable . Wants to worl extra time PAST MEDICAL HISTORY Diagnosis Date Adenocarcinoma of colon (HCC) Endocarditis 2003 Hypothyroidism Mass of colon [address] Jaquez Social History Tobacco Use Smoking status: Every Day Packs/day: 0.50 Years: 25.00 Pack years: 12.50 Types: Cigarettes Smokeless tobacco: Never Vaping Use Vaping Use: Never used Substance Use Topics Alcohol use: Yes Comment: 2 drinks/week; heavy in past Drug use: Not Currently Types: IV Comment: Past drug use of herorin FAMILY HISTORY Problem Relation Age of Onset Breast Cancer Sister Colon Cancer Maternal Grandfather Past medical, social and family history reviewed without any changes. REVIEW OF SYSTEMS GENERAL: No weight loss, malaise or fevers. No night sweats. HEENT: Negative for headaches, No changes in hearing or vision, no nose bleeds or other nasal problems. RESPIRATORY: Negative for cough, wheezing and shortness of breath CARDIOVASCULAR: Negative for chest pain, leg swelling and palpitations GI: Negative for abdominal discomfort, blood in stools or black stools and change in bowel habits : Negative for dysuria, frequency and incontinence MUSCULOSKELETAL: Negative for joint pain or swelling, back pain, and muscle pain. SKIN: Negative for lesions, rash, and itching. HEMATOLOGY/LYMPHOLOGY Negative for prolonged bleeding, bruising easily, and swollen nodes. NEURO: Negative for numbness or tingling of hands/feet. No weakness. PHYSICAL EXAMINATION: BP 115/76 Pulse 69 Temp (Src) 97.1 (Temporal) Resp 16 Ht 5' 7.874 (1.72m) Wt 134 lb 0.6 oz (60.8kg) SpO2 100% BMI 20.46 kg/(m2). Wt 61.3 kg (135 lb 3.2 oz) BMI 20.85 kg/m2 Last 3 Encounter Wt Readings: Date: Wt: 02/04/2022 61.3 kg (135 lb 3.2 oz) 01/18/2022 62.1 kg (137 lb) 12/29/2021 62.3 kg (137 lb 6.4 oz) General appearance:ECOG PERFORMANCE STATUS: 0- Fully active, able to carry on all pre-disease performance w/o restriction. Patient in NAD. Skin: Skin color, texture, turgor normal. No rashes or lesions. Eyes: Anicteric sclera. Pupils are equally round and reactive to light. Extraocular movements are intact. Lymph Nodes: No cervical, supraclavicular, axillary or inguinal adenopathy. Oropharynx: Lips, mucosa, and tongue normal. Back: No pain to percussion. Negative SLR test Lungs clear to auscultation, No wheezing or rhonchi Heart: RRR without murmur, gallop, or rubs. Abdomen soft, non-tender. No masses, organomegaly Extremities: No deformities. No edema Neuro: Gait and speech normal. Reflexes normal and symmetric. Muscular strength intact. Sensation grossly intact. Rectal: Deferred : Deferred LABS: Glucose (mg/dL) Date Value 07/15/2022 89 Potassium (mmol/L) Date Value 07/15/2022 4.5 Sodium (mmol/L) Date Value 07/15/2022 144 Chloride (mmol/L) Date Value 07/15/2022 108 CO2 (mmol/L) Date Value 07/15/2022 29 Creatinine (mg/dL) Date Value more content not included)... Normal [facility] CNPNon 08-05-2022 CNPN Telephone (HEMASA) -------- ESTRADAHOANG ([id number]) 1975 M Date Time Provider Department 08/05/22 MEGHAN PICHARDO During your visit today, we recorded the following information about you: Meghan Pichardo RN 08/05/2022 2:16 PM Signed Pt calls asking if there is some kind of shot that he can get to counteract the cold sensitivity that he gets from oxaliplatin. Explained to pt that there isn't an injection that we give for that, and reviewed recommendations from [email or web address]. pt verbalized understanding. Meghan Pichardo RN Allergies As of Date: 08/05/2022 (No Known Allergies) Date Reviewed: 08/05/2022 Reviewed by: Bárbara Sexton MA - Fully Assessed Reason for Visit: Care Coordination [[id number]] Cmt: Cold sensitivity questions Prescriptions as of 08/05/2022 - Food Supplement, Lactose-Free (PROMOTE, OSMOLITE, TWO CADEN, ENSURE PLUS, ENLIVE) liqd Take 237 mL by mouth three times daily with meals. - prochlorperazine (COMPAZINE) 10 mg tablet Take 1 tablet by mouth every 6 hours as needed. - nicotine (NICODERM) 21 mg/24 hr Apply 1 Patch as directed every 24 hours. - capecitabine (XELODA) 500 mg tablet Take 3 tablets (1,500 mg) by mouth twice daily for 14 days. Followed by 7 days off start with the Oxaliplatin - buPROPion XL (WELLBUTRIN XL) 150 mg 24 hr tablet Take 1 tablet by mouth once daily for 5 days. - buPROPion XL (WELLBUTRIN XL) 300 mg 24 hr tablet Take 1 tablet by mouth once daily. Take wellbutrin 150 mg tablet daily for 5 days before starting 300 mg dose daily - ondansetron (ZOFRAN) 8 mg tablet Take 1 tablet by mouth every 8 hours as needed for nausea/vomiting. - loratadine (CLARITIN) 10 mg tablet Take 10 mg by mouth once daily. - atorvastatin (LIPITOR) 10 mg tablet Take 10 mg by mouth once daily. - PROBIOTIC FORMULA, INULIN, 1 billion-250 cell-mg cap Take 1 capsule by mouth once daily. - acetaminophen (TYLENOL) 500 mg tablet Take 2 tablets by mouth every 6 hours. - gabapentin (NEURONTIN) 300 mg capsule Take 1 capsule by mouth every 8 hours for 14 days. - lactobacillus rhamnosus (CULTURELLE) 10 billion cell capsule Take 1 capsule by mouth once daily. - traMADol (ULTRAM) 50 mg tablet Take 1 tablet by mouth every 6 hours as needed. - levothyroxine (SYNTHROID) 125 mcg tablet Take 125 mcg by mouth once daily. - Ibuprofen 200 mg cap Take by mouth every 6 hours as needed. Facility-Administered Medications as of 08/05/2022 - NaCl 0.9% iv infusion - diphenhydrAMINE 50 mg injection (BENADRYL) - hydrocortisone sodium succinate (PF) 100 mg injection (Solu-CORTEF) - EPINEPHrine 1 mg/mL (1 mL) 0.3 mg injection - sodium chloride 0.9 % (flush) 10-20 mL (BD POSIFLUSH) - heparin 100 unit/mL 500 Units injection - sodium chloride 0.9 % (flush) 10-20 mL (BD POSIFLUSH) - perflutren lipid microspheres 1.3 mL in NaCl (PF) 0.9% 10 mL injection (DEFINITY) - sodium chloride 0.9 % (flush) 10 mL (BD POSIFLUSH) Problem List As Of Date 08/05/2022 Noted Resolved History of endocarditis [Z86.79] 01/17/2022 Severe tricuspid regurgitation [I07.1] 01/17/2022 Abnormality of right ventricle of heart [Q20.8] 01/17/2022 Red blood cell antibody positive [R76.8] 02/09/2022 History of intravenous drug abuse (HCC) [F19.11]02/16/2022 Smoker [F17.200] 02/16/2022 Rectal mass [K62.89] 02/16/2022 Rectal cancer (HCC) [C20] 02/21/2022 Severe protein-calorie malnutrition (HCC) [E43] 02/22/2022 Malaise and fatigue [R53.81, R53.83] 07/15/2022 Encounter Status:Closed by MEGHAN PICHARDO on 08/05/[address] [facility] HOANG WHITE ([id number]) 1975 M Date Time Provider Department 08/05/22 OSCAR GONZALEZ NCCLOIDA During your visit today, we recorded the following information about you: Indira Montalvo Nathan 08/05/2022 2:05 PM Signed Patient stopped up at front end specialist to see if there is anything we can do with the pain he is getting in his hands. He says he is getting a cold feeling he thinks from Chemo. If you can please call him today. Indira Montalvo Nathan Pichardo RN 08/05/2022 2:22 PM Signed Pt called and discussed this with him. Please refer to other telephone encounter. Meghan Pichardo RN Allergies As of Date: 08/05/2022 (No Known Allergies) Date Reviewed: 08/05/2022 Reviewed by: Bárbara Sexton MA - Fully Assessed Reason for Visit: Patient Question [3096] Prescriptions as of 08/08/2022 - Food Supplement, Lactose-Free (PROMOTE, OSMOLITE, TWO CADEN, ENSURE PLUS, ENLIVE) liqd Take 237 mL by mouth three times daily with meals. - prochlorperazine (COMPAZINE) 10 mg tablet Take 1 tablet by mouth every 6 hours as needed. - nicotine (NICODERM) 21 mg/24 hr Apply 1 Patch as directed every 24 hours. - capecitabine (XELODA) 500 mg tablet Take 3 tablets (1,500 mg) by mouth twice daily for 14 days. Followed by 7 days off start with the Oxaliplatin - buPROPion XL (WELLBUTRIN XL) 150 mg 24 hr tablet Take 1 tablet by mouth once daily for 5 days. - buPROPion XL (WELLBUTRIN XL) 300 mg 24 hr tablet Take 1 tablet by mouth once daily. Take wellbutrin 150 mg tablet daily for 5 days before starting 300 mg dose daily - ondansetron (ZOFRAN) 8 mg tablet Take 1 tablet by mouth every 8 hours as needed for nausea/vomiting. - loratadine (CLARITIN) 10 mg tablet Take 10 mg by mouth once daily. - atorvastatin (LIPITOR) 10 mg tablet Take 10 mg by mouth once daily. - PROBIOTIC FORMULA, INULIN, 1 billion-250 cell-mg cap Take 1 capsule by mouth once daily. - acetaminophen (TYLENOL) 500 mg tablet Take 2 tablets by mouth every 6 hours. - gabapentin (NEURONTIN) 300 mg capsule Take 1 capsule by mouth every 8 hours for 14 days. - lactobacillus rhamnosus (CULTURELLE) 10 billion cell capsule Take 1 capsule by mouth once daily. - traMADol (ULTRAM) 50 mg tablet Take 1 tablet by mouth every 6 hours as needed. - levothyroxine (SYNTHROID) 125 mcg tablet Take 125 mcg by mouth once daily. - Ibuprofen 200 mg cap Take by mouth every 6 hours as needed. Facility-Administered Medications as of 08/08/2022 - perflutren lipid microspheres 1.3 mL in NaCl (PF) 0.9% 10 mL injection (DEFINITY) - sodium chloride 0.9 % (flush) 10 mL (BD POSIFLUSH) Problem List As Of Date 08/05/2022 Noted Resolved History of endocarditis [Z86.79] 01/17/2022 Severe tricuspid regurgitation [I07.1] 01/17/2022 Abnormality of right ventricle of heart [Q20.8] 01/17/2022 Red blood cell antibody positive [R76.8] 02/09/2022 History of intravenous drug abuse (HCC) [F19.11]02/16/2022 Smoker [F17.200] 02/16/2022 Rectal mass [K62.89] 02/16/2022 Rectal cancer (HCC) [C20] 02/21/2022 Severe protein-calorie malnutrition (HCC) [E43] 02/22/2022 Malaise and fatigue [R53.81, R53.83] 07/15/2022 Encounter Status:Closed by INDIRA EVANS on 08/08/22 Normal [facility] Comprehensive metabolic 2000 panelon 08-05-2022 Albumin [Mass/Vol] 4.0 g/dL Normal 3.9-4.9 [facility] Comment on above: Order Comment: Speci men Type: BLOOD SPECIMENOrdering Facility: [facility] Address: [address] [place] [address] Performed By: #### 2 4323-8 ####[facility] LABCLIA [id number] [place] [address] ALP [Catalytic activity/Vol] 72 U/L Normal 38-113 [facility] Comment on above: Order Comment: Speci men Type: BLOOD SPECIMENOrdering Facility: [facility] Address: [address] [place] [address] Performed By: #### 2 4323-8 ####[facility] LABCLIA [id number] [place] [address] ALT [Catalytic activity/Vol] 14 U/L Normal 10-54 [facility] Comment on above: Order Comment: Speci men Type: BLOOD SPECIMENOrdering Facility: [facility] Address: [address] [place] [address] Performed By: #### 2 4323-8 ####[facility] LABCLIA [id number] [place] [address] Anion gap [Moles/Vol] 11 mmol/L Normal 9-18 [facility] Comment on above: Order Comment: Speci men Type: BLOOD SPECIMENOrdering Facility: [facility] Address: [address] [place] [address] Performed By: #### 2 4323-8 ####[facility] LABCLIA [id number] [place] [address] AST [Catalytic activity/Vol] 19 U/L Normal 14-40 [facility] Comment on above: Order Comment: Speci men Type: BLOOD SPECIMENOrdering Facility: [facility] Address: [address] [place] [address] Performed By: #### 2 4323-8 ####[facility] LABCLIA [id number] [place] [address] Bilirubin [Mass/Vol] 0.4 mg/dL Normal 0.2-1.3 [facility] Comment on above: Order Comment: Speci men Type: BLOOD SPECIMENOrdering Facility: [facility] Address: [address] [place] [address] Performed By: #### 2 4323-8 ####[facility] LABCLIA [id number] [place] [address] Calcium [Mass/Vol] 9.1 mg/dL Normal 8.5-10.2 [facility] Comment on above: Order Comment: Speci men Type: BLOOD SPECIMENOrdering Facility: [facility] Address: [address] [place] [address] Performed By: #### 2 4323-8 ####[facility] LABCLIA [id number] [place] [address] Chloride [Moles/Vol] 106 mmol/L High 97-105 [facility] Comment on above: Order Comment: Speci men Type: BLOOD SPECIMENOrdering Facility: [facility] Address: [address] [place], [place] [id number] Performed By: #### 2 4323-8 ####[facility] LABCLIA [id number] [place] [address] CO2 [Moles/Vol] 20 mmol/L Low 22-30 [facility] Comment on above: Order Comment: Speci men Type: BLOOD SPECIMENOrdering Facility: [facility] Address: [address] [place] [address] Performed By: #### 2 4323-8 ####[facility] LABCLIA [id number] [place] [address] Creatinine [Mass/Vol] 0.68 mg/dL Low 0.73-1.22 [facility] Comment on above: Order Comment: Gerry ibrahim Type: BLOOD SPECIMENOrdering Facility: [facility] Address: [address] [place] [address] Performed By: #### 2 4323-8 ####[facility] LABCLIA [id number] [place] [address] ESTIMATED GLOMERULAR FILTRATION RATE 114 mL/min/1.73m??? Normal >=60 [facility] Comment on above: Order Comment: Gerry ibrahim Type: BLOOD SPECIMENOrdering Facility: [facility] Address: [address] [place] [address] Result Comment: Tanya mated Glomerular Filtration Rate (eGFR) is calculated using the 2020 CKD-EPI creatinine equation. This equation utilizes serum creatinine, sex, and age as parameters. The creatinine assay has traceable calibration to isotope dilution-mass spectrometry. Refer to KDIGO guidelines for clinical interpretation. In patients with unstable renal function, e.g. those with acute kidney injury, the eGFR may not accurately reflect actual GFR. Performed By: #### 2 4323-8 ####[facility] LABCLIA [id number] [place] [address] Glucose [Mass/Vol] 155 mg/dL High 74-99 [facility] Comment on above: Order Comment: Gerry ibrahim Type: BLOOD SPECIMENOrdering Facility: [facility] Address: [address] [place] [address] Result Comment: The [place] Diabetes Association (ADA) provides guidance for cutoff values for fasting glucose and random glucose. The ADA defines fasting as no caloric intake for at least 8 hours. Fasting plasma glucose results between 100 to 125 mg/dL indicate increased risk for diabetes (prediabetes). Fasting plasma glucose results greater than or equal to 126 mg/dL meet the criteria for diagnosis of diabetes. In the absence of unequivocal hyperglycemia, results should be confirmed by repeat testing. In a patient with classic symptoms of hyperglycemia or hyperglycemic crisis, random plasma glucose results greater than or equal to 200 mg/dL meet the criteria for diagnosis of diabetes. Reference: Standards of Medical Care in Diabetes 2016, [place] [employer]. Diabetes Care. 2016.39(Suppl 1). Performed By: #### 2 4323-8 ####[facility] LABCLIA [id number] [place] [address] Potassium [Moles/Vol] 4.0 mmol/L Normal 3.7-5.1 [facility] Comment on above: Order Comment: Speci men Type: BLOOD SPECIMENOrdering Facility: [facility] Address: [address] [place] [address] Performed By: #### 2 4323-8 ####[facility] LABCLIA [id number] [place] [address] Protein [Mass/Vol] 6.4 g/dL Normal 6.3-8.0 [facility] Comment on above: Order Comment: Speci men Type: BLOOD SPECIMENOrdering Facility: [facility] Address: [address] [place] [address] Performed By: #### 2 4323-8 ####[facility] LABCLIA [id number] [place] [address] Sodium [Moles/Vol] 137 mmol/L Normal 136-144 [facility] Comment on above: Order Comment: Speci men Type: BLOOD SPECIMENOrdering Facility: [facility] Address: [address] [place] [address] Performed By: #### 2 4323-8 ####[facility] LABCLIA [id number] [place] [address] Urea nitrogen [Mass/Vol] 16 mg/dL Normal 9-24 [facility] Comment on above: Order Comment: Speci men Type: BLOOD SPECIMENOrdering Facility: [facility] Address: [address] [place] [address] Performed By: #### 2 4323-8 ####[facility] LABCLIA [id number] [place] [address] Albumin [Mass/Vol] 4.0 g/dL 3.9 - 4.9 g/dL [facility] ALP [Catalytic activity/Vol] 72 U/L 38 - 113 U/L [facility] ALT [Catalytic activity/Vol] 14 U/L 10 - 54 U/L [facility] Anion gap [Moles/Vol] 11 mmol/L 9 - 18 mmol/L [facility] AST [Catalytic activity/Vol] 19 U/L 14 - 40 U/L [facility] Bilirubin [Mass/Vol] 0.4 mg/dL 0.2 - 1.3 mg/dL [facility] Calcium [Mass/Vol] 9.1 mg/dL 8.5 - 10. 2 mg/dL [facility] Chloride [Moles/Vol] 106 mmol/L High 97 - 105 mmol/L [facility] CO2 [Moles/Vol] 20 mmol/L Low 22 - 30 mmol/L [facility] Creatinine [Mass/Vol] 0.68 mg/dL Low 0.73 - 1.22 mg/dL [facility] Estimated Glomerular Filtration Rate 114 mL/min/1.73m >=60 mL/min/1.73m [facility] Glucose [Mass/Vol] 155 mg/dL High 74 - 99 mg/dL [facility] Potassium [Moles/Vol] 4.0 mmol/L 3.7 - 5.1 mmol/L [facility] Protein [Mass/Vol] 6.4 g/dL 6.3 - 8.0 g/dL [facility] Sodium [Moles/Vol] 137 mmol/L 136 - 144 mmol/L [facility] Urea nitrogen [Mass/Vol] 16 mg/dL 9 - 24 mg/dL [facility] CBC W Auto Differential pane l (Bld)on 07-15-2022 Basophils (Bld) [#/Vol] 0.03 10*3/uL Normal <0.11 [facility] Comment on above: Order Comment: Speci men Type: BLOOD SPECIMENOrdering Facility: [facility] Address: [address] [place] [phone] Performed By: #### 5 7021-8 ####[facility] LABCLIA [id number] [place] [address] Basophils/100 WBC (Bld) 0.8 % Normal [facility] Comment on above: Order Comment: Speci men Type: BLOOD SPECIMENOrdering Facility: [facility] Address: [address] [place] [address] Performed By: #### 5 7021-8 ####[facility] LABCLIA [id number] [place] [address] Differential cell count method Nom (Bld) Auto Normal [facility] Comment on above: Order Comment: Speci men Type: BLOOD SPECIMENOrdering Facility: [facility] Address: [address] [place] [address] Performed By: #### 5 7021-8 ####[facility] LABCLIA [id number] [place] [address] Eosinophils (Bld) [#/Vol] 0.32 10*3/uL Normal <0.46 [facility] Comment on above: Order Comment: Speci men Type: BLOOD SPECIMENOrdering Facility: [facility] Address: [address] [place] [address] Performed By: #### 5 7021-8 ####[facility] LABCLIA [id number] [place] [address] Eosinophils/100 WBC (Bld) 8.8 % Normal [facility] Comment on above: Order Comment: Speci men Type: BLOOD SPECIMENOrdering Facility: [facility] Address: [address] [place] [address] Performed By: #### 5 7021-8 ####[facility] LABCLIA [id number] [place] [address] Erythrocyte distribution width (RBC) [Ratio] 14.6 % Normal 11.5-15.0 [facility] Comment on above: Order Comment: Speci men Type: BLOOD SPECIMENOrdering Facility: [facility] Address: [address] [place] [address] Performed By: #### 5 7021-8 ####[facility] LABCLIA [id number] [place] [address] Hematocrit (Bld) [Volume fraction] 39.5 % Normal 39.0-51.0 [facility] Comment on above: Order Comment: Speci men Type: BLOOD SPECIMENOrdering Facility: [facility] Address: [address] [place] [address] Performed By: #### 5 7021-8 ####[facility] LABCLIA [id number] [place] [address] Hemoglobin (Bld) [Mass/Vol] 13.6 g/dL Normal 13.0-17.0 [facility] Comment on above: Order Comment: Speci men Type: BLOOD SPECIMENOrdering Facility: [facility] Address: [address] [place] [address] Performed By: #### 5 7021-8 ####[facility] LABIA [id number] [place] [address] IMMATURE GRAN % 0.3 % Normal [facility] Comment on above: Order Comment: Speci men Type: BLOOD SPECIMENOrdering Facility: [facility] Address: [address] [place] [address] Performed By: #### 5 7021-8 ####[facility] LABCLIA [id number] [place] [address] IMMATURE GRAN ABS <0.03 Normal <0.10 [facility] Comment on above: Order Comment: Speci men Type: BLOOD SPECIMENOrdering Facility: [facility] Address: [address] [place] [address] Performed By: #### 5 7021-8 ####[facility] LABCLIA [id number] [place] [address] Lymphocytes (Bld) [#/Vol] 0.53 10*3/uL Low 1.00-4.00 [facility] Comment on above: Order Comment: Speci men Type: BLOOD SPECIMENOrdering Facility: [facility] Address: [address] [place] [address] Performed By: #### 5 7021-8 ####[facility] LABCLIA [id number] [place] [address] Lymphocytes/100 WBC (Bld) 14.6 % Normal [facility] Comment on above: Order Comment: Speci men Type: BLOOD SPECIMENOrdering Facility: [facility] Address: [address] [place] [address] Performed By: #### 5 7021-8 ####[facility] LABCLIA [id number] [place] [address] MCH (RBC) [Entitic mass] 33.3 pg Normal 26.0-34.0 [facility] Comment on above: Order Comment: Speci men Type: BLOOD SPECIMENOrdering Facility: [facility] Address: [address] [place] [address] Performed By: #### 5 7021-8 ####[facility] LABIA [id number] [place] [address] MCHC (RBC) [Mass/Vol] 34.4 g/dL Normal 30.5-36.0 [facility] Comment on above: Order Comment: Speci men Type: BLOOD SPECIMENOrdering Facility: [facility] Address: [address] [place], [place] [id number] Performed By: #### 5 7021-8 ####[facility] LABIA [id number] [place] [address] MCV (RBC) [Entitic vol] 96.6 fL Normal 80.0-100.0 [facility] Comment on above: Order Comment: Speci men Type: BLOOD SPECIMENOrdering Facility: [facility] Address: [address] [place] [address] Performed By: #### 5 7021-8 ####[facility] LABCLIA [id number] [place] [address] Monocytes (Bld) [#/Vol] 0.48 10*3/uL Normal <0.87 [facility] Comment on above: Order Comment: Speci men Type: BLOOD SPECIMENOrdering Facility: [facility] Address: [address] [place] [address] Performed By: #### 5 7021-8 ####[facility] LABCLIA [id number] [place] [address] Monocytes/100 WBC (Bld) 13.2 % Normal [facility] Comment on above: Order Comment: Speci men Type: BLOOD SPECIMENOrdering Facility: [facility] Address: [address] [place] [address] Performed By: #### 5 7021-8 ####[facility] LABCLIA [id number] [place] [address] Neutrophils (Bld) [#/Vol] 2.27 10*3/uL Normal 1.45-7.50 [facility] Comment on above: Order Comment: Speci men Type: BLOOD SPECIMENOrdering Facility: [facility] Address: [address] [place] [address] Performed By: #### 5 7021-8 ####[facility] LABCLIA [id number] [place] [address] Neutrophils/100 WBC (Bld) 62.3 % Normal [facility] Comment on above: Order Comment: Speci men Type: BLOOD SPECIMENOrdering Facility: [facility] Address: [address] [place] [address] Performed By: #### 5 7021-8 ####[facility] LABCLIA [id number] [place] [address] Nucleated RBC (Bld) [#/Vol] 10*3/uL Normal <0.01 [facility] Comment on above: Order Comment: Speci men Type: BLOOD SPECIMENOrdering Facility: [facility] Address: [address] [place] [address] Performed By: #### 5 7021-8 ####[facility] LABCLIA [id number] [place] [address] Nucleated RBC/100 WBC (Bld) [Ratio] 0.0 /100 WBC Normal [facility] Comment on above: Order Comment: Speci men Type: BLOOD SPECIMENOrdering Facility: [facility] Address: [address] [place] [address] Performed By: #### 5 7021-8 ####[facility] LABCLIA [id number] [place] [address] Platelet mean volume (Bld) [Entitic vol] 9.6 fL Normal 9.0-12.7 [facility] Comment on above: Order Comment: Speci men Type: BLOOD SPECIMENOrdering Facility: [facility] Address: [address] [place] [address] Performed By: #### 5 7021-8 ####[facility] LABCLIA [id number] [place] [address] Platelets (Bld) [#/Vol] 196 10*3/uL Normal 150-400 [facility] Comment on above: Order Comment: Speci men Type: BLOOD SPECIMENOrdering Facility: [facility] Address: [address] [place], [place] [id number] Performed By: #### 5 7021-8 ####[facility] LABCLIA [id number] [place] [address] RBC (Bld) [#/Vol] 4.09 10*6/uL Low 4.20-6.00 [facility] Comment on above: Order Comment: Speci men Type: BLOOD SPECIMENOrdering Facility: [facility] Address: [address] [place] [address] Performed By: #### 5 7021-8 ####[facility] LABCLIA [id number] [place] [address] WBC (Bld) [#/Vol] 3.64 10*3/uL Low 3.70-11.00 [facility] Comment on above: Order Comment: Speci men Type: BLOOD SPECIMENOrdering Facility: [facility] Address: [address] [place] [phone] Performed By: #### 5 7021-8 ####[facility] LABCLIA [id number] [place] [address] CNCOon 07-15-2022 CNCO Letter Text Normal [facility] CNOVSPon 07-15-2022 CNOVSP Visit (SP) Office ([place]) -------- HOANG WHITE ([id number]) 1975 M Date Time Provider Department 07/15/22 10:00 AM TEMI DEAN During your visit today, we recorded the following information about you: Temperature Pulse Respiration Blood pressure 97.9 degrees 72/minute 16/minute 121/71 Weight Height 61.4 kg 1.724 m Temi Dean PA-C 07/15/2022 9:59 AM Signed PATIENT NAME: Hoang Estrada CLINIC NO.: [id number] ATTENDING PHYSICIAN: Oscar Gonzalez MD DATE OF SERVICE: July 15 2022 (Elements copied from Dr. Gonzalez's note dated June 24, 2022, have been reviewed and updated where appropriate, and all reflect current assessment and medical decision making during today's encounter, July 15, 2022) CC: I am here for follow up and treatment Diagnosis: 1. Upper rectal cancer, MRI staged T4a,N+,M0- Mod Diff Adenocarcinoma ( [facility]) 2. Severe TR ( ECHO 12/2021 at [facility]): - The left ventricle is normal in size. Left ventricular systolic function is normal. EF = 60 ? 5% (2D biplane) Normal left ventricular diastolic function. Normal left atrial size. - Severe right atrial and ventricular dilatation. Right ventricular systolic function is normal including normal RV global strain (-24.0%). - Severe tricuspid regurgitation with hepatic vein systolic reversal. Leaflets thickened without obvious active vegetation. - Diastolic flattening of interventricular septum consistent with RV volume overload. - RVOT AT suggests normal mean PA pressures. 3. Previous h/o IVDA Treatment History: 1. 02/21/2022: Laparoscopic end colostomy 2. Xeloda and XRT 03/10/2022-04/15/2022- Plan for SIAÍAS 3. XELOX 06/03/2022 HPI: Hoang returns for cycle 3 of XELOX. Actually feels well and denies any fevers and or chills. Denies any rashes and also nausea well controlled. Denies any neuropathy and appetite stable PAST MEDICAL HISTORY Diagnosis Date Adenocarcinoma of colon (HCC) Endocarditis 2003 Hypothyroidism Mass of colon [address] Jaquez Social History Tobacco Use Smoking status: Every Day Packs/day: 0.50 Years: 25.00 Pack years: 12.50 Types: Cigarettes Smokeless tobacco: Never Vaping Use Vaping Use: Never used Substance Use Topics Alcohol use: Yes Comment: 2 drinks/week; heavy in past Drug use: Not Currently Types: IV Comment: Past drug use of herorin FAMILY HISTORY Problem Relation Age of Onset Breast Cancer Sister Colon Cancer Maternal Grandfather Past medical, social and family history reviewed without any changes. REVIEW OF SYSTEMS GENERAL: No weight loss, malaise or fevers. No night sweats. HEENT: Negative for headaches, No changes in hearing or vision, no nose bleeds or other nasal problems. RESPIRATORY: Negative for cough, wheezing and shortness of breath CARDIOVASCULAR: Negative for chest pain, leg swelling and palpitations GI: Negative for abdominal discomfort, blood in stools or black stools and change in bowel habits : Negative for dysuria, frequency and incontinence MUSCULOSKELETAL: Negative for joint pain or swelling, back pain, and muscle pain. SKIN: Negative for lesions, rash, and itching. HEMATOLOGY/LYMPHOLOGY Negative for prolonged bleeding, bruising easily, and swollen nodes. NEURO: Negative for numbness or tingling of hands/feet. No weakness. PHYSICAL EXAMINATION: There were no vitals taken for this visit. Wt 61.3 kg (135 lb 3.2 oz) BMI 20.85 kg/m2 Last 3 Encounter Wt Readings: Date: Wt: 02/04/2022 61.3 kg (135 lb 3.2 oz) 01/18/2022 62.1 kg (137 lb) 12/29/2021 62.3 kg (137 lb 6.4 oz) General appearance:ECOG PERFORMANCE STATUS: 0- Fully active, able to carry on all pre-disease performance w/o restriction. Patient in NAD. Skin: Skin color, texture, turgor normal. No rashes or lesions. Eyes: Anicteric sclera. Pupils are equally round and reactive to light. Extraocular movements are intact. Lymph Nodes: No cervical, supraclavicular, axillary or inguinal adenopathy. Oropharynx: Lips, mucosa, and tongue normal. Back: No pain to percussion. Negative SLR test Lungs clear to auscultation, No wheezing or rhonchi Heart: RRR without murmur, gallop, or rubs. Abdomen soft, non-tender. No masses, organomegaly Extremities: No deformities. No edema Neuro: Gait and speech normal. Reflexes normal and symmetric. Muscular strength intact. Sensation grossly intact. Rectal: Deferred : Deferred LABS: Glucose (mg/dL) Date Value 06/24/2022 92 Potassium (mmol/L) Date Value 06/24/2022 4.3 Sodium (mmol/L) Date Value 06/24/2022 137 Chloride (mmol/L) Date Value 06/24/2022 103 CO2 (mmol/L) Date Value 06/24/2022 26 Creatinine (mg/dL) Date Value 06/24/2022 0.81 BUN (mg/dL) Date Value 06/24/2022 12 Anion Gap (mmol/L) Date Value 06/24/2022 8 Calcium, Total (mg/dL) Date Value (more content not included)... Normal [facility] 07-15-2022 AMY Telephone (HEMTSA) -------- HOANG WHITE ([id number]) 1975 M Date Time Provider Department 07/15/22 ANGELLA GAUTAM During your visit today, we recorded the following information about you: Angella Gautam RN 07/15/2022 10:45 AM Signed Pt in for tx today, states that he would like to start receiving B12 injections for his energy level and is asking if those can be ordered. He also has trouble with his veins and is requesting that his labs be drawn with his IV start from now on. Please advise. PSS: please schedule accordingly if approved by MM and KK. SHEMAR Edouard PA-C 07/15/2022 10:52 AM Signed B12 has been ordered Temi Dean PA-C Allergies As of Date: 07/15/2022 (No Known Allergies) Date Reviewed: 07/15/2022 Reviewed by: Temi Dean PA-C - Fully Assessed Reason for Visit: B-12 Injection [247] Visit Diagnosis:Malaise and fatigue [R53.81, R53.83] Prescriptions as of 08/09/2022 - Food Supplement, Lactose-Free (PROMOTE, OSMOLITE, TWO CADEN, ENSURE PLUS, ENLIVE) liqd Take 237 mL by mouth three times daily with meals. - prochlorperazine (COMPAZINE) 10 mg tablet Take 1 tablet by mouth every 6 hours as needed. - nicotine (NICODERM) 21 mg/24 hr Apply 1 Patch as directed every 24 hours. - capecitabine (XELODA) 500 mg tablet Take 3 tablets (1,500 mg) by mouth twice daily for 14 days. Followed by 7 days off start with the Oxaliplatin - buPROPion XL (WELLBUTRIN XL) 150 mg 24 hr tablet Take 1 tablet by mouth once daily for 5 days. - buPROPion XL (WELLBUTRIN XL) 300 mg 24 hr tablet Take 1 tablet by mouth once daily. Take wellbutrin 150 mg tablet daily for 5 days before starting 300 mg dose daily - ondansetron (ZOFRAN) 8 mg tablet Take 1 tablet by mouth every 8 hours as needed for nausea/vomiting. - loratadine (CLARITIN) 10 mg tablet Take 10 mg by mouth once daily. - atorvastatin (LIPITOR) 10 mg tablet Take 10 mg by mouth once daily. - PROBIOTIC FORMULA, INULIN, 1 billion-250 cell-mg cap Take 1 capsule by mouth once daily. - acetaminophen (TYLENOL) 500 mg tablet Take 2 tablets by mouth every 6 hours. - gabapentin (NEURONTIN) 300 mg capsule Take 1 capsule by mouth every 8 hours for 14 days. - lactobacillus rhamnosus (CULTURELLE) 10 billion cell capsule Take 1 capsule by mouth once daily. - traMADol (ULTRAM) 50 mg tablet Take 1 tablet by mouth every 6 hours as needed. - levothyroxine (SYNTHROID) 125 mcg tablet Take 125 mcg by mouth once daily. - Ibuprofen 200 mg cap Take by mouth every 6 hours as needed. Facility-Administered Medications as of 08/09/2022 - perflutren lipid microspheres 1.3 mL in NaCl (PF) 0.9% 10 mL injection (DEFINITY) - sodium chloride 0.9 % (flush) 10 mL (BD POSIFLUSH) Problem List As Of Date 07/15/2022 Noted Resolved History of endocarditis [Z86.79] 01/17/2022 Severe tricuspid regurgitation [I07.1] 01/17/2022 Abnormality of right ventricle of heart [Q20.8] 01/17/2022 Red blood cell antibody positive [R76.8] 02/09/2022 History of intravenous drug abuse (HCC) [F19.11]02/16/2022 Smoker [F17.200] 02/16/2022 Rectal mass [K62.89] 02/16/2022 Rectal cancer (HCC) [C20] 02/21/2022 Severe protein-calorie malnutrition (HCC) [E43] 02/22/2022 Malaise and fatigue [R53.81, R53.83] 07/15/2022 Encounter Status:Closed by ANGELLA GAUTAM on 08/09/22 Normal [facility] metabolic 2000 panelon 07-15-2022 Albumin [Mass/Vol] 4.4 g/dL Normal 3.9-4.9 [facility] Comment on above: Order Comment: Speci men Type: BLOOD SPECIMENOrdering Facility: [facility] Address: [address] [place] [address] Performed By: #### 2 4323-8 ####[facility] LABCLIA [id number] [place] [address] ALP [Catalytic activity/Vol] 91 U/L Normal 38-113 [facility] Comment on above: Order Comment: Speci men Type: BLOOD SPECIMENOrdering Facility: [facility] Address: [address] [place] [address] Performed By: #### 2 4323-8 ####[facility] LABCLIA [id number] [place] [address] ALT [Catalytic activity/Vol] 14 U/L Normal 10-54 [facility] Comment on above: Order Comment: Speci men Type: BLOOD SPECIMENOrdering Facility: [facility] Address: [address] [place] [address] Performed By: #### 2 4323-8 ####[facility] LABCLIA [id number] [place] [address] Anion gap [Moles/Vol] 7 mmol/L Low 9-18 [facility] Comment on above: Order Comment: Speci men Type: BLOOD SPECIMENOrdering Facility: [facility] Address: [address] [place] [address] Performed By: #### 2 4323-8 ####[facility] LABCLIA [id number] [place] [address] AST [Catalytic activity/Vol] 17 U/L Normal 14-40 [facility] Comment on above: Order Comment: Speci men Type: BLOOD SPECIMENOrdering Facility: [facility] Address: [address] [place] [address] Performed By: #### 2 4323-8 ####[facility] LABCLIA [id number] [place] [address] Bilirubin [Mass/Vol] 0.3 mg/dL Normal 0.2-1.3 [facility] Comment on above: Order Comment: Speci men Type: BLOOD SPECIMENOrdering Facility: [facility] Address: [address] [place] [address] Performed By: #### 2 4323-8 ####[facility] LABCLIA [id number] [place] [address] Calcium [Mass/Vol] 9.7 mg/dL Normal 8.5-10.2 [facility] Comment on above: Order Comment: Speci men Type: BLOOD SPECIMENOrdering Facility: [facility] Address: [address] [place] [address] Performed By: #### 2 4323-8 ####[facility] LABCLIA [id number] [place] [address] Chloride [Moles/Vol] 108 mmol/L High 97-105 [facility] Comment on above: Order Comment: Speci men Type: BLOOD SPECIMENOrdering Facility: [facility] Address: [address] [place] [address] Performed By: #### 2 4323-8 ####[facility] LABCLIA [id number] [place] [address] CO2 [Moles/Vol] 29 mmol/L Normal 22-30 [facility] Comment on above: Order Comment: Speci men Type: BLOOD SPECIMENOrdering Facility: [facility] Address: [address] [place] [address] Performed By: #### 2 4323-8 ####[facility] LABCLIA [id number] [place] [address] Creatinine [Mass/Vol] 0.78 mg/dL Normal 0.73-1.22 [facility] Comment on above: Order Comment: Speci men Type: BLOOD SPECIMENOrdering Facility: [facility] Address: [address] [place] [address] Performed By: #### 2 4323-8 ####[facility] LABCLIA [id number] [place] [address] ESTIMATED GLOMERULAR FILTRATION RATE 109 mL/min/1.73m??? Normal >=60 [facility] Comment on above: Order Comment: Speci men Type: BLOOD SPECIMENOrdering Facility: [facility] Address: [address] [place] [address] Result Comment: Tanya mated Glomerular Filtration Rate (eGFR) is calculated using the 2020 CKD-EPI creatinine equation. This equation utilizes serum creatinine, sex, and age as parameters. The creatinine assay has traceable calibration to isotope dilution-mass spectrometry. Refer to KDIGO guidelines for clinical interpretation. In patients with unstable renal function, e.g. those with acute kidney injury, the eGFR may not accurately reflect actual GFR. Performed By: #### 2 4323-8 ####[facility] LABCLIA [id number] [place] [address] Glucose [Mass/Vol] 89 mg/dL Normal 74-99 [facility] Comment on above: Order Comment: Gerry ibrahim Type: BLOOD SPECIMENOrdering Facility: [facility] Address: [address] [place] [address] Result Comment: The [place] Diabetes Association (ADA) provides guidance for cutoff values for fasting glucose and random glucose. The ADA defines fasting as no caloric intake for at least 8 hours. Fasting plasma glucose results between 100 to 125 mg/dL indicate increased risk for diabetes (prediabetes). Fasting plasma glucose results greater than or equal to 126 mg/dL meet the criteria for diagnosis of diabetes. In the absence of unequivocal hyperglycemia, results should be confirmed by repeat testing. In a patient with classic symptoms of hyperglycemia or hyperglycemic crisis, random plasma glucose results greater than or equal to 200 mg/dL meet the criteria for diagnosis of diabetes. Reference: Standards of Medical Care in Diabetes 2016, [place] [employer]. Diabetes Care. 2016.39(Suppl 1). Performed By: #### 2 4323-8 ####[facility] LABCLIA [id number] [place] [address] Potassium [Moles/Vol] 4.5 mmol/L Normal 3.7-5.1 [facility] Comment on above: Order Comment: Speci men Type: BLOOD SPECIMENOrdering Facility: [facility] Address: [address] [place] [address] Performed By: #### 2 4323-8 ####[facility] LABCLIA [id number] [place] [address] Protein [Mass/Vol] 6.9 g/dL Normal 6.3-8.0 [facility] Comment on above: Order Comment: Speci men Type: BLOOD SPECIMENOrdering Facility: [facility] Address: [address] [place] [address] Performed By: #### 2 4323-8 ####[facility] LABIA [id number] [place] [address] Sodium [Moles/Vol] 144 mmol/L Normal 136-144 [facility] Comment on above: Order Comment: Speci men Type: BLOOD SPECIMENOrdering Facility: [facility] Address: [address] [place] [address] Performed By: #### 2 4323-8 ####[facility] LABCLIA [id number] [place] [address] Urea nitrogen [Mass/Vol] 13 mg/dL Normal 9-24 [facility] Comment on above: Order Comment: Speci men Type: BLOOD SPECIMENOrdering Facility: [facility] Address: [address] [place] [address] Performed By: #### 2 4323-8 ####[facility] LABIA [id number] [place] [address] Redd 06-27-2022 AMY Telephone (HEMASA) -------- ESTRADAHOANG WAGONER ([id number]) 1975 M Date Time Provider Department 06/27/22 MEGHAN PICHARDO During your visit today, we recorded the following information about you: Meghan Pichardo RN 06/27/2022 10:44 AM Signed Pt calls stating he still hasn't heard from [facility] regarding his Xeloda pills. Explained to pt that the new script was escribed through to [facility] and they should have it ready to be shipped to him. Instructed pt to call [facility] to schedule delivery. Pt verbalized understanding and will call now. Meghan Pichardo RN Allergies As of Date: 06/27/2022 (No Known Allergies) Date Reviewed: 06/24/2022 Reviewed by: Oscar Gonzalez MD - Fully Assessed Reason for Visit: Care Coordination [6632] Cmt: Medication update Prescriptions as of 06/27/2022 - nicotine (NICODERM) 21 mg/24 hr Apply 1 Patch as directed once daily. - capecitabine (XELODA) 500 mg tablet Take 3 tablets (1,500 mg) by mouth twice daily for 14 days. 1500 mg PO BID for 14 days and 7 dauys off start with the Oxaliplatin - capecitabine (XELODA) 500 mg tablet Take 3 tablets (1,500 mg) by mouth twice daily for 14 days. and 7 days off. (21 day cycle) Start day you receive oxaliplatin every cycle Oxaliplatin - buPROPion XL (WELLBUTRIN XL) 150 mg 24 hr tablet Take 1 tablet by mouth once daily for 5 days. - buPROPion XL (WELLBUTRIN XL) 300 mg 24 hr tablet Take 1 tablet by mouth once daily. Take wellbutrin 150 mg tablet daily for 5 days before starting 300 mg dose daily - prochlorperazine (COMPAZINE) 10 mg tablet Take 1 tablet by mouth every 6 hours as needed. - ondansetron (ZOFRAN) 8 mg tablet Take 1 tablet by mouth every 8 hours as needed for nausea/vomiting. - loratadine (CLARITIN) 10 mg tablet Take 10 mg by mouth once daily. - atorvastatin (LIPITOR) 10 mg tablet Take 10 mg by mouth once daily. - PROBIOTIC FORMULA, INULIN, 1 billion-250 cell-mg cap Take 1 capsule by mouth once daily. - acetaminophen (TYLENOL) 500 mg tablet Take 2 tablets by mouth every 6 hours. - gabapentin (NEURONTIN) 300 mg capsule Take 1 capsule by mouth every 8 hours for 14 days. - lactobacillus rhamnosus (CULTURELLE) 10 billion cell capsule Take 1 capsule by mouth once daily. - traMADol (ULTRAM) 50 mg tablet Take 1 tablet by mouth every 6 hours as needed. - levothyroxine (SYNTHROID) 125 mcg tablet Take 125 mcg by mouth once daily. - Ibuprofen 200 mg cap Take by mouth every 6 hours as needed. 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] 01/17/2022 Red blood cell antibody positive [R76.8] 02/09/2022 History of intravenous drug abuse (HCC) [F19.11]02/16/2022 Smoker [F17.200] 02/16/2022 Rectal mass [K62.89] 02/16/2022 Rectal cancer (HCC) [C20] 02/21/2022 Severe protein-calorie malnutrition (HCC) [E43] 02/22/2022 Encounter Status:Closed by MEGHAN PICHARDO on 06/27/22 Normal [facility] CBC W Auto Differential pane l (Bld)on 06-24-2022 Basophils (Bld) [#/Vol] 0.04 10*3/uL Normal <0.11 [facility] Comment on above: Order Comment: Speci men Type: BLOOD SPECIMENOrdering Facility: [facility] Address: [address] [place] [address] [place] [address] Performed By: #### 5 7021-8 ####[facility] LABCLIA [id number] [place] [address] Basophils/100 WBC (Bld) 0.7 % Normal [facility] Comment on above: Order Comment: Speci men Type: BLOOD SPECIMENOrdering Facility: [facility] Address: [address] [place] [address] Performed By: #### 5 7021-8 ####[facility] LABCLIA [id number] [place] [address] Differential cell count method Nom (Bld) Auto Normal [facility] Comment on above: Order Comment: Speci men Type: BLOOD SPECIMENOrdering Facility: [facility] Address: [address] [place] [address] Performed By: #### 5 7021-8 ####[facility] LABCLIA [id number] [place] [address] Eosinophils (Bld) [#/Vol] 0.28 10*3/uL Normal <0.46 [facility] Comment on above: Order Comment: Speci men Type: BLOOD SPECIMENOrdering Facility: [facility] Address: [address] [place] [address] Performed By: #### 5 7021-8 ####[facility] LABCLIA [id number] [place] [address] Eosinophils/100 WBC (Bld) 5.1 % Normal [facility] Comment on above: Order Comment: Speci men Type: BLOOD SPECIMENOrdering Facility: [facility] Address: [address] [place] [address] Performed By: #### 5 7021-8 ####[facility] LABCLIA [id number] [place] [address] Erythrocyte distribution width (RBC) [Ratio] 14.6 % Normal 11.5-15.0 [facility] Comment on above: Order Comment: Speci men Type: BLOOD SPECIMENOrdering Facility: [facility] Address: [address] [place] [address] Performed By: #### 5 7021-8 ####[facility] LABCLIA [id number] [place] [address] Hematocrit (Bld) [Volume fraction] 40.0 % Normal 39.0-51.0 [facility] Comment on above: Order Comment: Speci men Type: BLOOD SPECIMENOrdering Facility: [facility] Address: [address] [place] [address] Performed By: #### 5 7021-8 ####[facility] LABIA [id number] [place] [address] Hemoglobin (Bld) [Mass/Vol] 13.7 g/dL Normal 13.0-17.0 [facility] Comment on above: Order Comment: Speci men Type: BLOOD SPECIMENOrdering Facility: [facility] Address: [address] [place] [address] Performed By: #### 5 7021-8 ####[facility] LABIA [id number] [place] [address] IMMATURE GRAN % 0.4 % Normal [facility] Comment on above: Order Comment: Speci men Type: BLOOD SPECIMENOrdering Facility: [facility] Address: [address] [place] [address] Performed By: #### 5 7021-8 ####[facility] LABIA [id number] [place] [address] IMMATURE GRAN ABS <0.03 Normal <0.10 [facility] Comment on above: Order Comment: Speci men Type: BLOOD SPECIMENOrdering Facility: [facility] Address: [address] [place] [address] Performed By: #### 5 7021-8 ####[facility] LABIA [id number] [place] [address] Lymphocytes (Bld) [#/Vol] 0.50 10*3/uL Low 1.00-4.00 [facility] Comment on above: Order Comment: Speci men Type: BLOOD SPECIMENOrdering Facility: [facility] Address: [address] [place] [address] Performed By: #### 5 7021-8 ####[facility] LABCLIA [id number] [place] [address] Lymphocytes/100 WBC (Bld) 9.1 % Normal [facility] Comment on above: Order Comment: Speci men Type: BLOOD SPECIMENOrdering Facility: [facility] Address: [address] [place] [address] Performed By: #### 5 7021-8 ####[facility] LABCLIA [id number] [place] [address] MCH (RBC) [Entitic mass] 32.5 pg Normal 26.0-34.0 [facility] Comment on above: Order Comment: Speci men Type: BLOOD SPECIMENOrdering Facility: [facility] Address: [address] [place] [address] Performed By: #### 5 7021-8 ####[facility] LABCLIA [id number] [place] [address] MCHC (RBC) [Mass/Vol] 34.3 g/dL Normal 30.5-36.0 [facility] Comment on above: Order Comment: Speci men Type: BLOOD SPECIMENOrdering Facility: [facility] Address: [address] [place], [place] [address] Performed By: #### 5 7021-8 ####[facility] LABCLIA [id number] [place] [address] MCV (RBC) [Entitic vol] 94.8 fL Normal 80.0-100.0 [facility] Comment on above: Order Comment: Speci men Type: BLOOD SPECIMENOrdering Facility: [facility] Address: [address] [place], [place] [address] Performed By: #### 5 7021-8 ####[facility] LABCLIA [id number] [place] [address] Monocytes (Bld) [#/Vol] 0.55 10*3/uL Normal <0.87 [facility] Comment on above: Order Comment: Speci men Type: BLOOD SPECIMENOrdering Facility: [facility] Address: [address] [place] [address] Performed By: #### 5 7021-8 ####[facility] LABCLIA [id number] [place] [address] Monocytes/100 WBC (Bld) 10.0 % Normal [facility] Comment on above: Order Comment: Speci men Type: BLOOD SPECIMENOrdering Facility: [facility] Address: [address] [place] [address] Performed By: #### 5 7021-8 ####[facility] LABCLIA [id number] [place] [address] Neutrophils (Bld) [#/Vol] 4.13 10*3/uL Normal 1.45-7.50 [facility] Comment on above: Order Comment: Speci men Type: BLOOD SPECIMENOrdering Facility: [facility] Address: [address] [place] [address] Performed By: #### 5 7021-8 ####[facility] LABCLIA [id number] [place] [address] Neutrophils/100 WBC (Bld) 74.7 % Normal [facility] Comment on above: Order Comment: Speci men Type: BLOOD SPECIMENOrdering Facility: [facility] Address: [address] [place] [address] Performed By: #### 5 7021-8 ####[facility] LABCLIA [id number] [place] [address] Nucleated RBC (Bld) [#/Vol] 10*3/uL Normal <0.01 [facility] Comment on above: Order Comment: Speci men Type: BLOOD SPECIMENOrdering Facility: [facility] Address: [address] [place] [address] Performed By: #### 5 7021-8 ####[facility] LABCLIA [id number] [place] [address] Nucleated RBC/100 WBC (Bld) [Ratio] 0.0 /100 WBC Normal [facility] Comment on above: Order Comment: Speci men Type: BLOOD SPECIMENOrdering Facility: [facility] Address: [address] [place] [address] Performed By: #### 5 7021-8 ####[facility] LABIA [id number] [place] [address] Platelet mean volume (Bld) [Entitic vol] 9.9 fL Normal 9.0-12.7 [facility] Comment on above: Order Comment: Speci men Type: BLOOD SPECIMENOrdering Facility: [facility] Address: [address] [place] [address] Performed By: #### 5 7021-8 ####[facility] LABCLIA [id number] [place] [address] Platelets (Bld) [#/Vol] 259 10*3/uL Normal 150-400 [facility] Comment on above: Order Comment: Speci men Type: BLOOD SPECIMENOrdering Facility: [facility] Address: [address] [place], [place] [address] Performed By: #### 5 7021-8 ####[facility] LABIA [id number] [place] [address] RBC (Bld) [#/Vol] 4.22 10*6/uL Normal 4.20-6.00 [facility] Comment on above: Order Comment: Speci men Type: BLOOD SPECIMENOrdering Facility: [facility] Address: [address] [place], [place] [address] Performed By: #### 5 7021-8 ####[facility] LABCLIA [id number] [place] [address] WBC (Bld) [#/Vol] 5.52 10*3/uL Normal 3.70-11.00 [facility] Comment on above: Order Comment: Speci men Type: BLOOD SPECIMENOrdering Facility: [facility] Address: [address] [place], [place] [id number] Performed By: #### 5 7021-8 ####[facility] LABCLIA [id number] [place] [address] Abs Immature Gran <0.10 k/uL [facility] Basophils (Bld) [#/Vol] 0.04 10*3/uL <0.11 k/uL [facility] Basophils/100 WBC (Bld) 0.7 % [facility] Differential cell count method Nom (Bld) Auto [facility] Eosinophils (Bld) [#/Vol] 0.28 10*3/uL <0.46 k/uL [facility] Eosinophils/100 WBC (Bld) 5.1 % [facility] Erythrocyte distribution width (RBC) [Ratio] 14.6 % 11.5 - 15.0 % [facility] Hematocrit (Bld) [Volume fraction] 40.0 % 39.0 - 51.0 % [facility] Hemoglobin (Bld) [Mass/Vol] 13.7 g/dL 13.0 - 17.0 g/dL [facility] Immature Gran % 0.4 % [facility] Lymphocytes (Bld) [#/Vol] 0.50 10*3/uL Low 1.00 - 4.00 k/uL [facility] Lymphocytes/100 WBC (Bld) 9.1 % [facility] MCH (RBC) [Entitic mass] 32.5 pg 26.0 - 34.0 pg [facility] MCHC (RBC) [Mass/Vol] 34.3 g/dL 30.5 - 36.0 g/dL [facility] MCV (RBC) [Entitic vol] 94.8 fL 80.0 - 100.0 fL [facility] Monocytes (Bld) [#/Vol] 0.55 10*3/uL <0.87 k/uL [facility] Monocytes/100 WBC (Bld) 10.0 % [facility] Neutrophils (Bld) [#/Vol] 4.13 10*3/uL 1.45 - 7.50 k/uL [facility] Neutrophils/100 WBC (Bld) 74.7 % [facility] Nucleated RBC (Bld) [#/Vol] <0.01 k/uL [facility] Nucleated RBC/100 WBC (Bld) [Ratio] 0.0 /100 WBC [facility] Platelet mean volume (Bld) [Entitic vol] 9.9 fL 9.0 - 12.7 fL [facility] Platelets (Bld) [#/Vol] 259 10*3/uL 150 - 400 k/uL [facility] RBC (Bld) [#/Vol] 4.22 10*6/uL 4.20 - 6.0 0 m/uL [facility] WBC (Bld) [#/Vol] 5.52 10*3/uL 3.70 - 11. 00 k/uL [facility] CNCOon 06-24-2022 CNCO Letter Text Normal [facility] CNOVSPon 06-24-2022 CNOVSP Visit (SP) Office ([place]) -------- HOANG WHITE ([id number]) 1975 M Date Time Provider Department 06/24/22 9:45 AM OSCAR GONZALEZ During your visit today, we recorded the following information about you: Temperature Pulse Respiration Blood pressure 97 degrees 61/minute 16/minute 134/72 Weight Height 61.3 kg 1.724 m Oscar Gonzalez MD 06/24/2022 10:14 AM Signed PATIENT NAME: Hoang Estrada [facility] NO.: [id number] ATTENDING PHYSICIAN: Oscar Gonzalez MD DATE OF SERVICE: June 24, 2022 Some of the elements of this note have been copied from my previous progress note dated 05/24/2022. All the information has been reviewed carefully. Dear Dr. Ana Enriquez, here is an update on a follow up visit on male Hoang White at the clinic June 24, 2022 Diagnosis: 1. Upper rectal cancer, MRI staged T4a,N+,M0- Mod Diff Adenocarcinoma ( DIANNE) 2. Severe TR ( ECHO 12/2021 at [facility]): - The left ventricle is normal in size. Left ventricular systolic function is normal. EF = 60 ? 5% (2D biplane) Normal left ventricular diastolic function. Normal left atrial size. - Severe right atrial and ventricular dilatation. Right ventricular systolic function is normal including normal RV global strain (-24.0%). - Severe tricuspid regurgitation with hepatic vein systolic reversal. Leaflets thickened without obvious active vegetation. - Diastolic flattening of interventricular septum consistent with RV volume overload. - RVOT AT suggests normal mean PA pressures. 3. Previous h/o IVDA Treatment History: 1. 02/21/2022: Laparoscopic end colostomy 2. Xeloda and XRT 03/10/2022-04/15/2022- Plan for ISAÍAS 3. XELOX 06/03/2022 HPI: Hoang White is a 46 year old year old male here for follow up. Actually feels well and denies any fevers and or chills. Denies any rashes and also nausea well controlled. Denies any neuropathy and appetite stable PAST MEDICAL HISTORY Diagnosis Date Adenocarcinoma of colon (HCC) Endocarditis 2003 Hypothyroidism Mass of colon [address] Jaquez Social History Tobacco Use Smoking status: Every Day Packs/day: 0.50 Years: 25.00 Pack years: 12.50 Types: Cigarettes Smokeless tobacco: Never Vaping Use Vaping Use: Never used Substance Use Topics Alcohol use: Yes Comment: 2 drinks/week; heavy in past Drug use: Not Currently Types: IV Comment: Past drug use of herorin FAMILY HISTORY Problem Relation Age of Onset Breast Cancer Sister Colon Cancer Maternal Grandfather Past medical, social and family history reviewed without any changes. REVIEW OF SYSTEMS GENERAL: No weight loss, malaise or fevers. No night sweats. HEENT: Negative for headaches, No changes in hearing or vision, no nose bleeds or other nasal problems. RESPIRATORY: Negative for cough, wheezing and shortness of breath CARDIOVASCULAR: Negative for chest pain, leg swelling and palpitations GI: Negative for abdominal discomfort, blood in stools or black stools and change in bowel habits : Negative for dysuria, frequency and incontinence MUSCULOSKELETAL: Negative for joint pain or swelling, back pain, and muscle pain. SKIN: Negative for lesions, rash, and itching. HEMATOLOGY/LYMPHOLOGY Negative for prolonged bleeding, bruising easily, and swollen nodes. NEURO: Negative for numbness or tingling of hands/feet. No weakness. PHYSICAL EXAMINATION: BP 134/72 Pulse 61 Temp (Src) 97 (Temporal) Resp 16 Ht 5' 7.874 (1.72m) Wt 135 lb 3.2 oz (61.3kg) SpO2 99% BMI 20.63 kg/(m2). Wt 61.3 kg (135 lb 3.2 oz) BMI 20.85 kg/m2 Last 3 Encounter Wt Readings: Date: Wt: 02/04/2022 61.3 kg (135 lb 3.2 oz) 01/18/2022 62.1 kg (137 lb) 12/29/2021 62.3 kg (137 lb 6.4 oz) General appearance:ECOG PERFORMANCE STATUS: 0- Fully active, able to carry on all pre-disease performance w/o restriction. Patient in NAD. Skin: Skin color, texture, turgor normal. No rashes or lesions. Eyes: Anicteric sclera. Pupils are equally round and reactive to light. Extraocular movements are intact. Lymph Nodes: No cervical, supraclavicular, axillary or inguinal adenopathy. Oropharynx: Lips, mucosa, and tongue normal. Back: No pain to percussion. Negative SLR test Lungs clear to auscultation, No wheezing or rhonchi Heart: RRR without murmur, gallop, or rubs. Abdomen soft, non-tender. No masses, organomegaly Extremities: No deformities. No edema Neuro: Gait and speech normal. Reflexes normal and symmetric. Muscular strength intact. Sensation grossly intact. Rectal: Deferred : Deferred LABS: Glucose (mg/dL) Date Value 05/24/2022 109 Potassium (mmol/L) Date Value 05/24/2022 4.3 Sodium (mmol/L) Date Value 05/24/2022 142 Chloride (mmol/L) Date Value 05/24/2022 108 CO2 (mmol/L) Date Value 05/24/2022 27 Creatinine (mg/dL) Date Value 05/24/2022 0.86 BUN (mg/dL) Date (more content not included)... Normal [facility] Comprehensive metabolic 2000 panelon 06-24-2022 Albumin [Mass/Vol] 4.5 g/dL Normal 3.9-4.9 [facility] Comment on above: Order Comment: Speci men Type: BLOOD SPECIMENOrdering Facility: [facility] Address: [address] [place] [address] Performed By: #### 2 4323-8 ####[facility] LABCLIA [id number] [place] [address] ALP [Catalytic activity/Vol] 85 U/L Normal 38-113 [facility] Comment on above: Order Comment: Speci men Type: BLOOD SPECIMENOrdering Facility: [facility] Address: [address] [place] [address] Performed By: #### 2 4323-8 ####[facility] LABCLIA [id number] [place] [address] ALT [Catalytic activity/Vol] 15 U/L Normal 10-54 [facility] Comment on above: Order Comment: Speci men Type: BLOOD SPECIMENOrdering Facility: [facility] Address: [address] [place] [address] Performed By: #### 2 4323-8 ####[facility] LABCLIA [id number] [place] [address] Anion gap [Moles/Vol] 8 mmol/L Low 9-18 [facility] Comment on above: Order Comment: Speci men Type: BLOOD SPECIMENOrdering Facility: [facility] Address: [address] [place] [address] Performed By: #### 2 4323-8 ####[facility] LABCLIA [id number] [place] [address] AST [Catalytic activity/Vol] 21 U/L Normal 14-40 [facility] Comment on above: Order Comment: Speci men Type: BLOOD SPECIMENOrdering Facility: [facility] Address: [address] [place] [address] Performed By: #### 2 4323-8 ####[facility] LABCLIA [id number] [place] [address] Bilirubin [Mass/Vol] 0.4 mg/dL Normal 0.2-1.3 [facility] Comment on above: Order Comment: Speci men Type: BLOOD SPECIMENOrdering Facility: [facility] Address: [address] [place] [address] Performed By: #### 2 4323-8 ####[facility] LABCLIA [id number] [place] [address] Calcium [Mass/Vol] 9.6 mg/dL Normal 8.5-10.2 [facility] Comment on above: Order Comment: Speci men Type: BLOOD SPECIMENOrdering Facility: [facility] Address: [address] [place] [address] Performed By: #### 2 4323-8 ####[facility] LABCLIA [id number] [place] [address] Chloride [Moles/Vol] 103 mmol/L Normal 97-105 [facility] Comment on above: Order Comment: Speci men Type: BLOOD SPECIMENOrdering Facility: [facility] Address: [address] [place], [place] [id number] Performed By: #### 2 4323-8 ####[facility] LABCLIA [id number] [place] [address] CO2 [Moles/Vol] 26 mmol/L Normal 22-30 [facility] Comment on above: Order Comment: Speci men Type: BLOOD SPECIMENOrdering Facility: [facility] Address: [address] [place] [address] Performed By: #### 2 4323-8 ####[facility] LABCLIA [id number] [place] [address] Creatinine [Mass/Vol] 0.81 mg/dL Normal 0.73-1.22 [facility] Comment on above: Order Comment: Gerry ibrahim Type: BLOOD SPECIMENOrdering Facility: [facility] Address: [address] [place] [address] Performed By: #### 2 4323-8 ####[facility] LABCLIA [id number] [place] [address] ESTIMATED GLOMERULAR FILTRATION RATE 109 mL/min/1.73m??? Normal >=60 [facility] Comment on above: Order Comment: Gerry ibrahim Type: BLOOD SPECIMENOrdering Facility: [facility] Address: [address] [place] [address] Result Comment: Tanya mated Glomerular Filtration Rate (eGFR) is calculated using the 2020 CKD-EPI creatinine equation. This equation utilizes serum creatinine, sex, and age as parameters. The creatinine assay has traceable calibration to isotope dilution-mass spectrometry. Refer to KDIGO guidelines for clinical interpretation. In patients with unstable renal function, e.g. those with acute kidney injury, the eGFR may not accurately reflect actual GFR. Performed By: #### 2 4323-8 ####[facility] LABCLIA [id number] [place] [address] Glucose [Mass/Vol] 92 mg/dL Normal 74-99 [facility] Comment on above: Order Comment: Gerry ibrahim Type: BLOOD SPECIMENOrdering Facility: [facility] Address: [address] [place] [address] Result Comment: The [place] Diabetes Association (ADA) provides guidance for cutoff values for fasting glucose and random glucose. The ADA defines fasting as no caloric intake for at least 8 hours. Fasting plasma glucose results between 100 to 125 mg/dL indicate increased risk for diabetes (prediabetes). Fasting plasma glucose results greater than or equal to 126 mg/dL meet the criteria for diagnosis of diabetes. In the absence of unequivocal hyperglycemia, results should be confirmed by repeat testing. In a patient with classic symptoms of hyperglycemia or hyperglycemic crisis, random plasma glucose results greater than or equal to 200 mg/dL meet the criteria for diagnosis of diabetes. Reference: Standards of Medical Care in Diabetes 2016, [place] [employer] Association. Diabetes Care. 2016.39(Suppl 1). Performed By: #### 2 4323-8 ####[facility] LABCLIA [id number] [place] [address] Potassium [Moles/Vol] 4.3 mmol/L Normal 3.7-5.1 [facility] Comment on above: Order Comment: Speci men Type: BLOOD SPECIMENOrdering Facility: [facility] Address: [address] [place] [address] Performed By: #### 2 4323-8 ####[facility] LABCLIA [id number] [place] [address] Protein [Mass/Vol] 7.2 g/dL Normal 6.3-8.0 [facility] Comment on above: Order Comment: Speci men Type: BLOOD SPECIMENOrdering Facility: [facility] Address: [address] [place] [address] Performed By: #### 2 4323-8 ####[facility] LABCLIA [id number] [place] [address] Sodium [Moles/Vol] 137 mmol/L Normal 136-144 [facility] Comment on above: Order Comment: Speci men Type: BLOOD SPECIMENOrdering Facility: [facility] Address: [address] [place] [address] Performed By: #### 2 4323-8 ####[facility] LABCLIA [id number] [place] [address] Urea nitrogen [Mass/Vol] 12 mg/dL Normal 9-24 [facility] Comment on above: Order Comment: Speci men Type: BLOOD SPECIMENOrdering Facility: [facility] Address: [address] [place] [address] Performed By: #### 2 4323-8 ####[facility] LABCLIA [id number] [place] [address] Albumin [Mass/Vol] 4.5 g/dL 3.9 - 4.9 g/dL [facility] ALP [Catalytic activity/Vol] 85 U/L 38 - 113 U/L [facility] ALT [Catalytic activity/Vol] 15 U/L 10 - 54 U/L [facility] Anion gap [Moles/Vol] 8 mmol/L Low 9 - 18 mmol/L [facility] AST [Catalytic activity/Vol] 21 U/L 14 - 40 U/L [facility] Bilirubin [Mass/Vol] 0.4 mg/dL 0.2 - 1.3 mg/dL [facility] Calcium [Mass/Vol] 9.6 mg/dL 8.5 - 10. 2 mg/dL [facility] Chloride [Moles/Vol] 103 mmol/L 97 - 105 mmol/L [facility] CO2 [Moles/Vol] 26 mmol/L 22 - 30 mmol/L [facility] Creatinine [Mass/Vol] 0.81 mg/dL 0.73 - 1.22 mg/dL [facility] Estimated Glomerular Filtration Rate 109 mL/min/1.73m >=60 mL/min/1.73m [facility] Glucose [Mass/Vol] 92 mg/dL 74 - 99 mg/dL [facility] Potassium [Moles/Vol] 4.3 mmol/L 3.7 - 5.1 mmol/L [facility] Protein [Mass/Vol] 7.2 g/dL 6.3 - 8.0 g/dL [facility] Sodium [Moles/Vol] 137 mmol/L 136 - 144 mmol/L [facility] Urea nitrogen [Mass/Vol] 12 mg/dL 9 - 24 mg/dL [facility] CNPNon 06-23-2022 CNPN Telephone ([place]) -------- HOANG WHITE ([id number]) 1975 M Date Time Provider Department 06/23/22 MEGHAN PICHARDO During your visit today, we recorded the following information about you: Meghan Pichardo RN 06/23/2022 1:47 PM Signed Pt calls stating he hasn't received his Xeloda in the mail from [employer]. Pt has not called requesting a refill of this. Explained to pt that as soon as he's finished taking his last pill that he needs to call and request a refill through the company. Pt states he wasn't aware of this and will call there now. Explained to pt that they will be able to ship it over night to him. Pt will need to fill a dose or two from our pharmacy while here tomorrow for treatment. Instructed pt to stop in our pharmacy tomorrow morning when he is here. Verbalized understanding. SHEMAR Monique [facility] 06/23/2022 3:28 PM Signed Confirmed [facility] received order and left Hoang a message letting him know they have the prescription and he will need to call to set up delivery. 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 Elvin Pitts [facility] Allergies As of Date: 06/23/2022 (No Known Allergies) Date Reviewed: 05/25/2022 Reviewed by: Ana Enriquez MD - Fully Assessed Reason for Visit: Care Coordination [349] Cmt: Medication refill Prescriptions as of 06/23/2022 - capecitabine (XELODA) 500 mg tablet Take 3 tablets (1,500 mg) by mouth twice daily for 14 days. 1500 mg PO BID for 14 days and 7 dauys off start with the Oxaliplatin - capecitabine (XELODA) 500 mg tablet Take 3 tablets (1,500 mg) by mouth twice daily for 14 days. and 7 days off. (21 day cycle) Start day you receive oxaliplatin every cycle Oxaliplatin - buPROPion XL (WELLBUTRIN XL) 150 mg 24 hr tablet Take 1 tablet by mouth once daily for 5 days. - buPROPion XL (WELLBUTRIN XL) 300 mg 24 hr tablet Take 1 tablet by mouth once daily. Take wellbutrin 150 mg tablet daily for 5 days before starting 300 mg dose daily - prochlorperazine (COMPAZINE) 10 mg tablet Take 1 tablet by mouth every 6 hours as needed. - ondansetron (ZOFRAN) 8 mg tablet Take 1 tablet by mouth every 8 hours as needed for nausea/vomiting. - loratadine (CLARITIN) 10 mg tablet Take 10 mg by mouth once daily. - atorvastatin (LIPITOR) 10 mg tablet Take 10 mg by mouth once daily. - PROBIOTIC FORMULA, INULIN, 1 billion-250 cell-mg cap Take 1 capsule by mouth once daily. - acetaminophen (TYLENOL) 500 mg tablet Take 2 tablets by mouth every 6 hours. - gabapentin (NEURONTIN) 300 mg capsule Take 1 capsule by mouth every 8 hours for 14 days. - lactobacillus rhamnosus (CULTURELLE) 10 billion cell capsule Take 1 capsule by mouth once daily. - traMADol (ULTRAM) 50 mg tablet Take 1 tablet by mouth every 6 hours as needed. - nicotine (NICODERM) 21 mg/24 hr Apply 1 Patch as directed once daily. - levothyroxine (SYNTHROID) 125 mcg tablet Take 125 mcg by mouth once daily. - Ibuprofen 200 mg cap Take by mouth every 6 hours as needed. 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 Telephone ([place]) -------- HOANG WHITE ([id number]) 1975 M Date Time Provider Department 06/07/22 MEGHAN PICHARDO During your visit today, we recorded the following information about you: Meghan Pichardo RN 06/07/2022 3:00 PM Signed CYCLE 1/DAY 1 POST TREATMENT CALL Today's date: June 07, 2022 Treatment Regimen: Capox C1D1 Date: 06/03/22 Called patient and message left for pt to call our office back. SHEMAR Monique RN 06/08/2022 9:39 AM Signed Message left for pt to call our office back. Meghan Pichardo RN Allergies As of Date: 06/07/2022 (No Known Allergies) Date Reviewed: 05/25/2022 Reviewed by: Ana Enriquez MD - Fully Assessed Reason for Visit: Care Coordination [2214] Cmt: C1D1 treatment follow up call Prescriptions as of 06/10/2022 - capecitabine (XELODA) 500 mg tablet Take 3 tablets (1,500 mg) by mouth twice daily for 14 days. and 7 days off. (21 day cycle) Start day you receive oxaliplatin every cycle Oxaliplatin - buPROPion XL (WELLBUTRIN XL) 150 mg 24 hr tablet Take 1 tablet by mouth once daily for 5 days. - buPROPion XL (WELLBUTRIN XL) 300 mg 24 hr tablet Take 1 tablet by mouth once daily. Take wellbutrin 150 mg tablet daily for 5 days before starting 300 mg dose daily - prochlorperazine (COMPAZINE) 10 mg tablet Take 1 tablet by mouth every 6 hours as needed. - ondansetron (ZOFRAN) 8 mg tablet Take 1 tablet by mouth every 8 hours as needed for nausea/vomiting. - loratadine (CLARITIN) 10 mg tablet Take 10 mg by mouth once daily. - atorvastatin (LIPITOR) 10 mg tablet Take 10 mg by mouth once daily. - PROBIOTIC FORMULA, INULIN, 1 billion-250 cell-mg cap Take 1 capsule by mouth once daily. - acetaminophen (TYLENOL) 500 mg tablet Take 2 tablets by mouth every 6 hours. - gabapentin (NEURONTIN) 300 mg capsule Take 1 capsule by mouth every 8 hours for 14 days. - lactobacillus rhamnosus (CULTURELLE) 10 billion cell capsule Take 1 capsule by mouth once daily. - traMADol (ULTRAM) 50 mg tablet Take 1 tablet by mouth every 6 hours as needed. - nicotine (NICODERM) 21 mg/24 hr Apply 1 Patch as directed once daily. - levothyroxine (SYNTHROID) 125 mcg tablet Take 125 mcg by mouth once daily. - Ibuprofen 200 mg cap Take by mouth every 6 hours as needed. 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.8] 01/17/2022 Red blood cell antibody positive [R76.8] 02/09/2022 History of intravenous drug abuse (HCC) [F19.11]02/16/2022 Smoker [F17.200] 02/16/2022 Rectal mass [K62.89] 02/16/2022 Rectal cancer (HCC) [C20] 02/21/2022 Severe protein-calorie malnutrition (HCC) [E43] 02/22/2022 Encounter Status:Closed by MEGHAN PICHARDO on 06/10/22 [facility] 05-30-2022 [facility] Telephone (REFAIR) -------- HOANG WHITE ([id number]) 1975 M Date Time Provider Department 05/30/22 MARY SOLORIO During your visit today, we recorded the following information about you: Catalina Muhammad 05/30/2022 2:15 PM Signed IRB # [id number] Tight perioperative blood pressure management to reduce serious cardiovascular, renal, and cognitive complications: The GUARDIAN trial PI: Mary Solorio MD, LUCIA, FASA. Outcomes Research Department. Anest[facility] [place]. [facility]. This is a research study note. Patient assessments recorded here should not guide either clinical care or clinical decision-making. I called the patient, Hoang White, today regarding follow-up for the study IRB [id number] Tight Perioperative Blood pressure Management to Reduce Serious Cardiovascular, renal, and Cognitive Complications (GUARDIAN) Trial. The patient said to call back tomorrow. Catalina Muhammad Research Scheduler Maintenance Department of OUTCOMES RESEARCH Anesthesiology [place] Allergies As of Date: 05/30/2022 (No Known Allergies) Date Reviewed: 05/25/2022 Reviewed by: Ana Enriquez MD - Fully Assessed Reason for Visit: Research Follow Up [Other] Prescriptions as of 05/30/2022 - capecitabine (XELODA) 500 mg tablet Take 3 tablets (1,500 mg) by mouth twice daily for 14 days. and 7 days off. (21 day cycle) Start day you receive oxaliplatin every cycle Oxaliplatin - buPROPion XL (WELLBUTRIN XL) 150 mg 24 hr tablet Take 1 tablet by mouth once daily for 5 days. - buPROPion XL (WELLBUTRIN XL) 300 mg 24 hr tablet Take 1 tablet by mouth once daily. Take wellbutrin 150 mg tablet daily for 5 days before starting 300 mg dose daily - prochlorperazine (COMPAZINE) 10 mg tablet Take 1 tablet by mouth every 6 hours as needed. - ondansetron (ZOFRAN) 8 mg tablet Take 1 tablet by mouth every 8 hours as needed for nausea/vomiting. - loratadine (CLARITIN) 10 mg tablet Take 10 mg by mouth once daily. - atorvastatin (LIPITOR) 10 mg tablet Take 10 mg by mouth once daily. - PROBIOTIC FORMULA, INULIN, 1 billion-250 cell-mg cap Take 1 capsule by mouth once daily. - acetaminophen (TYLENOL) 500 mg tablet Take 2 tablets by mouth every 6 hours. - gabapentin (NEURONTIN) 300 mg capsule Take 1 capsule by mouth every 8 hours for 14 days. - lactobacillus rhamnosus (CULTURELLE) 10 billion cell capsule Take 1 capsule by mouth once daily. - traMADol (ULTRAM) 50 mg tablet Take 1 tablet by mouth every 6 hours as needed. - nicotine (NICODERM) 21 mg/24 hr Apply 1 Patch as directed once daily. - levothyroxine (SYNTHROID) 125 mcg tablet Take 125 mcg by mouth once daily. - Ibuprofen 200 mg cap Take by mouth every 6 hours as needed. 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.8] 01/17/2022 Red blood cell antibody positive [R76.8] 02/09/2022 History of intravenous drug abuse (HCC) [F19.11]02/16/2022 Smoker [F17.200] 02/16/2022 Rectal mass [K62.89] 02/16/2022 Rectal cancer (HCC) [C20] 02/21/2022 Severe protein-calorie malnutrition (HCC) [E43] 02/22/2022 Encounter Status:Closed by CATALINA MUHAMMAD on 05/30/22 [facility] 05-25-2022 TAHIRAN Telephone (REFAIR) -------- HOANG WHITE ([id number]) 1975 M Date Time Provider Department 05/25/22 MARY SOLORIO During your visit today, we recorded the following information about you: Catalina Jb 05/25/2022 3:54 PM Signed IRB # [id number] Tight perioperative blood pressure management to reduce serious cardiovascular, renal, and cognitive complications: The GUARDIAN trial PI: Mary Solorio MD, LUCIA, FASA. Outcomes Research Department. Anesthesia [place]. [facility]. This is a research study note. Patient assessments recorded here should not guide either clinical care or clinical decision-making. Patient was unable to be reached by phone. I left a voicemail to call back at earliest convenience. Will call again at a later date. Catalina Muhammad Research Scheduler Maintenance Outcomes Research [facility] Allergies As of Date: 05/25/2022 (No Known Allergies) Date Reviewed: 05/25/2022 Reviewed by: Ana Enriquez MD - Fully Assessed Reason for Visit: Research Follow Up [Other] Prescriptions as of 05/25/2022 - capecitabine (XELODA) 500 mg tablet Take 3 tablets (1,500 mg) by mouth twice daily for 14 days. and 7 days off. (21 day cycle) Start day you receive oxaliplatin every cycle Oxaliplatin - buPROPion XL (WELLBUTRIN XL) 150 mg 24 hr tablet Take 1 tablet by mouth once daily for 5 days. - buPROPion XL (WELLBUTRIN XL) 300 mg 24 hr tablet Take 1 tablet by mouth once daily. Take wellbutrin 150 mg tablet daily for 5 days before starting 300 mg dose daily - prochlorperazine (COMPAZINE) 10 mg tablet Take 1 tablet by mouth every 6 hours as needed. - ondansetron (ZOFRAN) 8 mg tablet Take 1 tablet by mouth every 8 hours as needed for nausea/vomiting. - loratadine (CLARITIN) 10 mg tablet Take 10 mg by mouth once daily. - atorvastatin (LIPITOR) 10 mg tablet Take 10 mg by mouth once daily. - PROBIOTIC FORMULA, INULIN, 1 billion-250 cell-mg cap Take 1 capsule by mouth once daily. - acetaminophen (TYLENOL) 500 mg tablet Take 2 tablets by mouth every 6 hours. - gabapentin (NEURONTIN) 300 mg capsule Take 1 capsule by mouth every 8 hours for 14 days. - lactobacillus rhamnosus (CULTURELLE) 10 billion cell capsule Take 1 capsule by mouth once daily. - traMADol (ULTRAM) 50 mg tablet Take 1 tablet by mouth every 6 hours as needed. - nicotine (NICODERM) 21 mg/24 hr Apply 1 Patch as directed once daily. - levothyroxine (SYNTHROID) 125 mcg tablet Take 125 mcg by mouth once daily. - Ibuprofen 200 mg cap Take by mouth every 6 hours as needed. Facility-Administered Medications as of 05/25/2022 - perflutren lipid microspheres 1.3 mL in NaCl (PF) 0.9% 10 mL injection (DEFINITY) - sodium chloride 0.9 % (flush) 10 mL (BD POSIFLUSH) Problem List As Of Date 05/25/2022 Noted Resolved History of endocarditis [Z86.79] 01/17/2022 Severe tricuspid regurgitation [I07.1] 01/17/2022 Abnormality of right ventricle of heart [Q20.8] 01/17/2022 Red blood cell antibody positive [R76.8] 02/09/2022 History of intravenous drug abuse (HCC) [F19.11]02/16/2022 Smoker [F17.200] 02/16/2022 Rectal mass [K62.89] 02/16/2022 Rectal cancer (HCC) [C20] 02/21/2022 Severe protein-calorie malnutrition (HCC) [E43] 02/22/2022 Encounter Status:Closed by CATALINA MUHAMMAD on 05/25/22 [facility] 05-12-2022 ALLIED HEALTH HNO ID: [id number] Author: Pamela Morales, public works supervisor Service: Radiology Author Type: Manager Care Type: Allied Health Filed: 05/12/2022 2:02 PM Note Text: Radiology Service Progress Note DATE OF SERVICE: May 12, 2022 TIME: 2:01 PM PATIENT IDENTITY VERIFICATION COMPLETED USING TWO (2) STANDARD IDENTIFIERS: Name and Date of confirmed by patient verbally. FALL SCREENING: Has the patient had 2 falls in the last year or 1 fall with injury or currently using an Ambulatory Assistive Device (Walker, Cane, Wheelchair, Crutches, etc.)? No PATIENT GENDER DATA: Male PATIENT RELEVANT IMPLANT DATA REVIEWED: Yes ALLERGIES: Reviewed and unchanged CONTRAST ALLERGY: NO. EXAM: MRI - CONTRAST TYPE: GROUP II PERIPHERAL IV DATA: Ambulatory: A peripheral IV was started in the Right hand with a Butterfly: 23 gauge. RADIOLOGY DEPARTMENT: MR; Exam(s) Completed: Body: Rectal SIGNATURE: LEROY Larson Tech PATIENT NAME: Hoang White DATE: May 12, 2022 TIME: 2:01 PM [facility] MRI RECTUM WO/W IVCONon 07- MRI RECTUM WO/W IVCON * * *Final Report* * * DATE OF EXAM: May 12 2022 2:01PM [facility] 0754 - MRI RECTUM WO/W IVCON / PROCEDURE REASON: Malignant neoplasm of rectum (HCC) * * * * Physician Interpretation * * * * MRI OF THE PELVIS WITHOUT AND WITH CONTRAST: RECTAL CANCER RESTAGING CLINICAL HISTORY: Rectal Cancer RESTAGING Pretreatment Tumor Staging: T4a N+ Rectal tumor histology: Moderately differentiated adenocarcinoma Prior chemotherapy or radiation: Yes Other: COMPARISON: MRI 02/03/2022 TECHNIQUE: Magnet: Siemens Avanto 1.5T scanner. Multiplanar MRI with multiple sequences before and after contrast. Contrast: IV: 12 ml of Dotarem Minimal rectal contrast was due to patient discomfort RESULT: Significant motion artifact limiting evaluation. TREATED PRIMARY TUMOR CHARACTERISTICS (Compare to pre-treatment): DWI (with associated low ADC) ? restricted diffusion and low ADC in tumor or tumor bed: Present, improved from prior. MRI-T2W: Intermediate signal intensity, no dark T2/scar. T2 bright mucin (cannot distinguish between cellular and acellular mucin): Absent Distance of the inferior margin of treated tumor to the anal verge: 10.6 cm (series 6 image 21) Distance of the inferior margin to the top of sphincter complex/anorectal junction: 7.3 cm (series 6 image 21) Relationship to anterior peritoneal reflection: Above Craniocaudal length: 3.5 cm (series 5 image 24) Pre-treatment craniocaudal length: 6.8 cm Tumor location: Upper rectum (10-15 cm) Maximal wall thickness: 0.7 cm (series 16 image 39)) Pre-treatment wall thickness: 1.3 cm Invasion of anal sphincter complex: Absent. Anal canal involvement: None. TUMOR DEPOSITS AND EXTRAMURAL VASCULAR INVASION (EMVI): Tumor deposits:(separate from metastatic lymph nodes): No. EMVI: No, complete regression. MESORECTAL FASCIA (MRF): Shortest distance of extraluminal part of the tumor to MRF: N/A Tumor extension through the peritonealized portion of the rectum into peritoneal fat: Tumor extension through the peritonealized portion along the right lateral aspect Is there a separate tumor deposit, LN or EMVI threatening (?1mm and ?2 mm) or invading (< 1 mm) the MRF? No. T4 disease interval change: Decreased thickening along the rightward aspect of the peritoneal reflection. POST-TREATMENT TUMOR REGRESSION: mrTRG: Grade 4 - Partial response LYMPH NODES: Mesorectal/superior rectal lymph nodes and/or tumor deposits: Superior rectal lymph node measuring 0.4 cm (series 5 image 21) previously 0.8 cm. Suspicious extra mesorectal lymph nodes: None. OTHER STRUCTURES/ ORGANS INVOLVED: none If yes describe here. Look for structures, pelvic side wall, levator ani, bone and vascular involvement. OTHER FINDINGS: Postoperative changes from right inguinal hernia repair. Postop changes from diverting colostomy. IMPRESSION: Since MRI 02/03/2022, post treatment primary tumor assessment: Incomplete response (likely residual tumor). -There is interval decrease in tumor bulk with persistent tumor visualized within the upper rectum/sigmoid colon. mrTRG: Grade 4 - Partial response Suspicious Mesorectal lymph nodes: Yes. Interval decrease in size of superior rectal lymph nodes with residual superior rectal lymph node measuring up to 0.4 cm. Suspicious Extramesorectal lymph nodes: No. Search Marketing Specialist: ADDI Transcribe Date/Time: May 12 2022 2:23P Dictated by : DAVIDE MAYERS MD This examination was interpreted and the report reviewed and electronically signed by: DAVIDE MAYERS MD on May 12 2022 2:45PM EST [id number] Normal [facility] Redd 03-25-2022 CNPN Telephone (FVPRAD) -------- HOANG WHITE ([id number]) 1975 M Date Time Provider Department 03/25/22 ROB FROST FVPRAD During your visit today, we recorded the following information about you: Rob Trotter, Research Coordinator 03/25/2022 12:44 PM Signed IRB # [id number] Tight perioperative blood pressure management to reduce serious cardiovascular, renal, and cognitive complications: The GUARDIAN trial PI: Mary Solorio MD, LUCIA, CHLOÉ. Outcomes Research Department. Anesthesia [place]. [facility]. This is a research study note. Patient assessments recorded here should not guide either clinical care or clinical decision-making. I called the patient today regarding follow-up for the study IRB [id number] Tight Perioperative Blood pressure Management to Reduce Serious Cardiovascular, renal, and Cognitive Complications (GUARDIAN) Trial. I thanked the patient for participating in our research study. The 30-day follow-up questionnaire was completed. ? I reminded the patient about the 90-day follow-up call. The study period is not yet complete. Rob Arcos MD Anesthesiology [place] Outcomes Research Department Research Fellow [facility] Allergies As of Date: 03/25/2022 (No Known Allergies) Date Reviewed: 03/23/2022 Reviewed by: Janine Holliday RN - Fully Assessed Reason for Visit: Research F/U [174] Prescriptions as of 03/25/2022 - prochlorperazine (COMPAZINE) 10 mg tablet Take 1 tablet by mouth every 6 hours as needed. - ondansetron (ZOFRAN) 8 mg tablet Take 1 tablet by mouth every 8 hours as needed for nausea/vomiting. - loratadine (CLARITIN) 10 mg tablet Take 10 mg by mouth once daily. - atorvastatin (LIPITOR) 10 mg tablet Take 10 mg by mouth once daily. - PROBIOTIC FORMULA, INULIN, 1 billion-250 cell-mg cap Take 1 capsule by mouth once daily. - acetaminophen (TYLENOL) 500 mg tablet Take 2 tablets by mouth every 6 hours. - gabapentin (NEURONTIN) 300 mg capsule Take 1 capsule by mouth every 8 hours for 14 days. - lactobacillus rhamnosus (CULTURELLE) 10 billion cell capsule Take 1 capsule by mouth once daily. - traMADol (ULTRAM) 50 mg tablet Take 1 tablet by mouth every 6 hours as needed. - nicotine (NICODERM) 21 mg/24 hr Apply 1 Patch as directed once daily. - capecitabine (XELODA) 150 mg tablet Take 2 tablets (300 mg) by mouth twice daily. Take along with 1000 mg for a total dose of 1300 mg PO BID M-F During Radiation only - capecitabine (XELODA) 500 mg tablet Take 2 tablets (1,000 mg) by mouth twice daily. Take along with 300 mg for a total dose of 1300 mg PO BID M-F during radiation - levothyroxine (SYNTHROID) 125 mcg tablet Take 125 mcg by mouth once daily. - Ibuprofen 200 mg cap Take by mouth every 6 hours as needed. 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 Author Type: Physician Scheduler Maintenance Type: HANDP Filed: 02/16/2022 9:11 AM Note Text: HISTORY AND PHYSICAL EXAMINATION SERVICE DATE: 02/16/2022 SERVICE TIME: 8:49 AM PRIMARY CARE PHYSICIAN: No primary care provider on file. REASON FOR VISIT: Hoang White is a 46 year old male who is scheduled for left ROBOTIC LAPAROSCOPIC COLECTOMY SIGMOID COLON W/ COLORECTAL ANASTOMOSIS and possible COLOSTOMY DIVERTING at the request of Dr. Ana Enriquez for consultation. My final recommendation will be communicated back to the requesting physician by way of shared medical record or letter. The patient has the following: 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 History of Intravenous Drug Abuse (Hcc) Smoker Rectal Mass Subjective CHIEF COMPLAINT: Colon cancer HPI: Patient is a 46 year old male presenting for pre-anesthesia consultation. Patient has been having alternating diarrhea to constipation for the last year. He has had abdominal pain which is constant and worsening all over his abdomen. He has also noticed BRBPR and melena which depends on the day. Endorses nausea but no emesis. He has lost 40 pounds over the last year unintentionally. Positive family history of colon cancer in maternal grandfather. He had colonoscopy, egd and MRI which noted colon cancer. Plans for surgical resection and chemo/RT. Recommended for the above surgery. PAST MEDICAL HISTORY Diagnosis Date - Adenocarcinoma of colon (HCC) - Endocarditis 2003 - Hypothyroidism - Mass of colon [address] Jaquez PAST SURGICAL HISTORY Procedure Laterality Date - COLONSCOPY SCREENING HIGH RISK 2021 - EGD - PAST SURGICAL HISTORY OF Right 2011 inguinal - PAST SURGICAL HISTORY OF 2019 teeth pullled out FAMILY HISTORY Problem Relation Age of Onset - Breast Cancer Sister - Colon Cancer Maternal Grandfather SOCIAL HISTORY: Social History Tobacco Use - Smoking status: Current Every Day Smoker Packs/day: 0.50 Years: 25.00 Pack years: 12.50 - Smokeless tobacco: Never Used Vaping Use - Vaping Use: Never used Substance Use Topics - Alcohol use: Yes Comment: 2 drinks/week; heavy in past - Drug use: Not Currently Types: IV Comment: Past drug use of herorin MEDICATIONS: Prior to Admission medications as of 02/16/22 0824 Medication Sig Last Dose Taking metroNIDAZOLE (FLAGYL) 500 mg tablet Take 1 tablet by mouth three times daily. Take 1 tablet at 6pm, 7pm, and 11pm, the evening prior to surgery. Taking Yes neomycin 500 mg tablet Take 2 tablets by mouth as directed. Take 2 tablet at 6pm, 7pm, and 11pm the evening prior to surgery. Taking Yes levothyroxine (SYNTHROID) 125 mcg tablet Take 125 mcg by mouth once daily. Taking Yes Ibuprofen 200 mg cap Take by mouth every 6 hours as needed. Taking Yes No medication comments found. CURRENT ALLERGIES: ALLERGIES No Known Allergies COVID VACCINATION STATUS: Not vaccinated REVIEW OF SYSTEMS: PAIN ASSESSMENT: General: Unintentional weight loss lost 40 pounds in the last year Neuro: No history of TIA's, stroke, VP REVENUE CYCLE tumor, impaired sensorium, hemiplegia, paraplegia or quadraplegia. No neurological symptoms or problems. Respiratory: No history of current cough or dyspnea, or pneumonia in the past 6 weeks. No history of respiratory/pulmonary symptoms or problems. 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 Has not taken steroids within the past 30 days. No history of endocrinological symptoms or problems. Hematology: No history of bleeding or clotting disorder. Pt is not taking anti-coagulation or platelet medications. No history of hematological symptoms or problems. Oncology: See HPI Psych: No history of psychiatric symptoms or problems. Musculoskeletal: Negative for joint pain or swelling, back pain or muscle pain. Skin: Negative for lesions, rash and itching. Objective PHYSICAL EXAM: VITALS: BP 130/91 Pulse 80 Temp (Src) 96.7 (Temporal) Resp 18 Ht 5' 8 (1.73m) Wt 129 lb (58.5kg) SpO2 98% BMI 19.62 kg/(m2). General: Alert and oriented, anxious Skin: Normal color, no rash, no lesions. HEENT: EOM, pupils equal, round and reactive. Cardiovascular: Pulse regular. 3/6 holosystolic low pitched rumbling murmur diffuse Lungs: Normal breath sounds, no wheezes or crackles. Abdomen: Soft, non-tender, no rigidity., Positive bowel sounds Extremities: No deformity, no edema or tenderness, no joint swelling or clubbing. Neurological: Normal cognition and motor skills. Pulses: Carotid (more content not included)... Normal [facility] MRI RECTUM WO/W IVCONon 04-0 [facility] Drug Screen,Urineon 12-24-19 Amphetamine Screen,Urine Negative Normal Negative [facility] Comment on above: Performed By: #### U RDS #### [address] Barbiturate Screen,Urine Negative Normal Negative [facility] Comment on above: Performed By: #### U RDS #### [address] Benzodiazepines Screen,Urine Negative Normal Negative [facility] Comment on above: Performed By: #### U RDS #### [address] Cannabinoid Screen,Urine Positive High Negative [facility] Comment on above: Result Comment: Thes e are unconfirmed results and should not be used for legal purposes. Drug Cut-Off Concentration: AMPH 1000 ng/mL SAM 200 ng/mL ROYER 200 ng/mL COCM 300 ng/mL OP 300 ng/mL PCP 25 ng/mL THC 20 ng/mL PERFORMED BY: [place] [address] PATHOLOGIST CALL CENTER SUPPORT REPRESENTATIVE BRISEYDA FAULKNER M.D. Performed By: #### U RDS #### [address] Cocaine Screen,Urine Negative Normal Negative [facility] Comment on above: Performed By: #### U RDS #### [address] Opiate Screen,Urine Negative Normal Negative [facility] Comment on above: Performed By: #### U RDS #### [address] Phencyclidine Screen,Urine Negative Normal Negative [facility] Comment on above: Performed By: #### U RDS #### [address] Anam 12-24-2021 L ---- Specimen: [id number] Received: 12/27/21 Status: SHAHANA Hidalgo Num: [id number] Spec Type: Surgical Subm Dr: Kishan Jaquez Jr, DO Tissues: A Duodenum - Biopsy (DUODENUM) B Colon Biopsy (RECTOSIGMOID) Procedures: HE Stain/4, Gross/Micro L4/2 Patient Age/Sex Location Account Attending Physician Hoang White/[facility] [id number] Kishan Jaquez Jr, DO SPEC NUM: [id number] RECD: 12/27/21 STATUS: SHAHANA HIADLGO NUM: [id number] YVAN: 12/24/21- DR: Kishan Jaquez Jr, DO ENTERED: 12/27/21 RENÉ WADDELL: LUZ ELENA TYPE: Surgical DEPT: S ORDERED: HE Stain/4, Gross/Micro L4/2 ORDERED: HE Stain/4, Gross/Micro L4/2 Pathological Diagnosis A. Duodenum, biopsy: - Duodenal mucosa with no significant pathologic findings. - No villous atrophy or intraepithelial lymphocytosis identified. B. Rectosigmoid colon mass, biopsy: - Invasive moderately-differentiate d adenocarcinoma, see NOTE. - MMR MisMatch Repair Protein IHC studies: MLH1: Intact expression (>95%, strong intensity). MSH2: Intact expression (>95%, strong intensity). MSH6: Intact expression (>95%, strong intensity) PMS2: Intact expression (>95%, strong intensity) NOTE: There is no loss of expression of MisMatch Repair Proteins. These findings are mostly consistent with a low probability of microsatellite instability-high (MSI-H) phenotype. ( Nonsense mutation may occur in up to 5% of tumors, resulting in a non-functional protein that is still detectable by IHC. PCR testing can be performed to exclude this possibility if clinically indicated.) This case has been reviewed by a second pathologist, concurs with the above diagnosis. Specimen: [id number] Received: 12/27/21 Status: SHAHANA Hidalgo Num: [id number] Spec Type: Surgical Subm Dr: Kishan Jaquez Jr, DO Tissues: A Duodenum - Biopsy (DUODENUM) B Colon Biopsy (RECTOSIGMOID) Procedures: HE Stain/4, Gross/Micro L4/2 Patient: Hoang White [id number] (Continued) Specimen: [id number] Received: 12/27/21 (Continued) Signed (signature on file) Jorge Mc MD 12/28/21 1718 Specimen: Received: 12/27/21 Status: SHAHANA Hidalgo Num: [id number] Spec Type: Surgical Subm Dr: Kishan Jaquez Jr, DO Tissues: A Duodenum - Biopsy (DUODENUM) B Colon Biopsy (RECTOSIGMOID) Procedures: HE Stain/4, Gross/Micro L4/2 Patient: Hoang White [id number] (Continued) Specimen: [id number] Received: 12/27/21 (Continued) Clinical Information Abdominal pain, diarrhea, weight loss nausea and vomiting Gross Description A. Received in formalin labeled with the patient's name, number and duodenum rule out celiac are 2 dudley tissue fragments, 0.3 cm and 0.5 cm. Entirely submitted in one cassette labeled A1. Type of Fixative: 10% Neutral Buffered Formalin (SM/YJ) B. Received in formalin labeled with the patient's name, number and biopsies colon mass rectosigmoid are multiple dudley tissue fragments aggregating 1.3 x 1 x 0.3 cm. Entirely submitted in one cassette labeled B1. Type of Fixative: 10% Neutral Buffered Formalin (SM/YJ) Microscopic Description A. Two glass slides with H E stained material have been examined. The microscopic findings support the above pathologic diagnosis. B. Two glass slides with H E stained material and four IHC stained slides have been examined. The microscopic findings support the above pathologic diagnosis. The use of one or more reagents in the above tests is regulated as an analyte specific reagent (ASR). The performance characteristics were determined by the Laboratory of [facility]. Immunohistochemistry assays have not been validated on decalcified tissue. Results should be interpreted with caution given the possibility of false negative results on decalcified specimens. They have not been cleared by the US Food and Drug Administration. The FDA has determined that such clearance or approval is not (more content not included)... Normal [facility] COVID-19 FRon 12-22-2021 SARS-CoV-2 (COVID-19) RNA FÉLIX+probe Ql (Unsp spec) Negative Normal Negative [facility] Comment on above: Order Comment: Healt hcare Worker?: N Result Comment: Testing for SARS-CoV-2 by RT-PCR This test was developed and its performance characteristics determined by [employer] and validated at the [facility]. This test has not been FDA cleared or approved. This test has been authorized by FDA under an Emergency Use Authorization (EUA). This test has been validated in accordance with the FDA's Guidance Document (Policy for Diagnostics Testing in Laboratories Certified to Perform High Complexity Testing under CLIA prior to Emergency Use Authorization for Coronavirus Disease-2019 during the Public Health Emergency) issued on January 30, 2020. This test is only authorized for the duration of time the declaration that circumstances exist justifying the authorization of the emergency use of in vitro diagnostic tests for detection of SARS-CoV-2 virus and/or diagnosis of COVID-19 infection under section 564(b)(1) of the Act, 21 U.S.C. 360bbb-3(b)(1), unless the authorization is terminated or revoked sooner. PERFORMED BY: [facility] [address] [place] [address] PATHOLOGIST CALL CENTER SUPPORT REPRESENTATIVE BRISEYDA FAULKNER M.D. Performed By: #### C OVID 19 [facility] #### [facility] [address] LACTOFERRIN FECAL QUANTon Lactoferrin, Fecal, Quant. 5.75 ug/mL(g) Normal 0.00-7.24 [facility] Comment on above: Result Comment: . Baseline (normal) 0.00 - 7.24 Elevated >7.24 . An elevated result is indicative of the presence of fecal lactoferrin, a marker of intestinal inflammation. A normal result does not exclude the presence of intestinal inflammation. The test can be used as an in vitro diagnostic aid to distinguish patients with active inflammatory bowel disease (IBD) from those with non-inflammatory irritable bowel syndrome (IBS). Performed By: #### L ACTFQ #### [facility] [address] [place] [address] Dr. Nazia Faria CALPROTECTIN, FECALon 2021 Calprotectin, Fecal 139 ug/g Critically high 0-120 [facility] Comment on above: Result Comment: Conc entration Interpretation Follow-Up <16 - 50 ug/g Normal None >50 -120 ug/g Borderline Re-evaluate in 4-6 weeks >120 ug/g Abnormal Repeat as clinically indicated Performed By: #### C ALPOO #### [facility] [address] [place] [address] Dr. Nazia Faria CLOSTRIDIUM DIFFICILE PCRon 12-02-2021 C difficile Toxin Gene FÉLIX Negative Normal Negative [facility] Comment on above: Performed By: #### C DIFNAA #### [facility] [address] [place] [address] Dr. Nazia Faria GIARDIA LAMBLIA DETECTIONon 12-01-2021 Giardia lamblia Ag, EIA Negative Normal Negative [facility] Comment on above: Performed By: #### G SARTHAK #### [facility] [address] [address] [address] Nazia Faria CELIAC ANTIBODIES PROFILEon 11-30-2021 Deamidated Gliadin Abs, IgA 5 units Normal 0-19 [facility] Comment on above: Result Comment: Nega tive 0 - 19 Weak Positive 20 - 30 Moderate to Strong Positive >30 Performed By: #### C ELIACP #### [facility] [address] [address] [address] Nazia Faria Deamidated Gliadin Abs, IgG 2 units Normal 0-19 [facility] Comment on above: Result Comment: Nega tive 0 - 19 Weak Positive 20 - 30 Moderate to Strong Positive >30 Performed By: #### C ELIACP #### [facility] [address] [address] [address] Nazia Faria Endomysial Antibody IgA Positive Abnormal Negative [facility] Comment on above: Performed By: #### C ELIACP #### [facility] [address] [address] [address] Nazia Faria Immunoglobulin A, Qn, Serum 9 mg/dL Critically low 90-386 [facility] Comment on above: Result Comment: Resu lt confirmed on concentration. Performed By: #### C ELIACP #### [facility] [address] [address] [address] Nazia Faria t-Transglutaminase (tTG) IgA <2 Normal 0-3 [facility] Comment on above: Result Comment: Nega tive 0 - 3 Weak Positive 4 - 10 Positive >10 . Tissue Transglutaminase (tTG) has been identified as the endomysial antigen. Studies have demonstr- ated that endomysial IgA antibodies have over 99% specificity for gluten sensitive enteropathy. Performed By: #### C ELIACP #### [facility] [address] [address] [address] Nazia Faria t-Transglutaminase (tTG) IgG 4 U/mL Normal 0-5 [facility] Comment on above: Result Comment: Nega tive 0 - 5 Weak Positive 6 - 9 Positive >9 Performed By: #### C ELIACP #### [facility] [address] [place] [address] Dr. Nazia Faria HIV 1 AND 2 WITH REFLEXon HIV Screen 4th Generation wRfx Non-Reactive Normal Non Reactive [facility] Comment on above: Result Comment: HIV Negative HIV-1/HIV-2 antibodies and HIV-1 p24 antigen were NOT detected. There is no laboratory evidence of HIV infection. Performed By: #### C BC #### [facility] [address] [place] [address] Dr. Nazia Faria CBC AUTO DIFFon 11-29-2021 BASO # 0.1 103/ul Normal 0.0-0.1 [facility] Comment on above: Performed By: #### C BC #### [facility] [address] [place] [address] Dr. Nazia Faria Basophils/100 WBC (Bld) 0.6 % Normal 0.2-2.0 [facility] Comment on above: Performed By: #### C BC #### [facility] [address] [place] [address] Dr. Nazia Faria EO # 0.2 103/ul Normal 0.0-0.7 [facility] Comment on above: Performed By: #### C BC #### [facility] [address] [place] [address] Dr. Nazia Faria Eosinophils/100 WBC (Bld) 2.4 % Normal 0.9-7.0 [facility] Comment on above: Performed By: #### C BC #### [facility] [address] [place] [address] Dr. Nazia Faria Erythrocyte distribution width (RBC) [Ratio] 13.0 % Normal 11.0-15.0 [facility] Comment on above: Performed By: #### C BC #### [facility] [address] [place] [address] Dr. Nazia Faria Hematocrit (Bld) [Volume fraction] 42.8 % Normal 42.0-54.0 [facility] Comment on above: Performed By: #### C BC #### [facility] [address] [place] [address] Dr. Nazia Faria Hemoglobin (Bld) [Mass/Vol] 14.1 g/dL Normal 14.0-18.0 [facility] Comment on above: Performed By: #### C BC #### [facility] [address] [place] [address] Dr. Nazia Faria IG # 0.03 10e3/ul Normal 0.00-0.03 [facility] Comment on above: Performed By: #### C BC #### [facility] [address] [place] [address] Dr. Nazia Faria IG % 0.4 % Normal 0.0-0.5 [facility] Comment on above: Performed By: #### C BC #### [facility] [address] [place] [address] Dr. Nazia Faria LYMPH # 1.5 103/ul Normal 1.2-3.8 [facility] Comment on above: Performed By: #### C BC #### [facility] [address] [place] [address] Dr. Nazia Faria Lymphocytes/100 WBC (Bld) 17.9 % Critically low 20.5-60.0 [facility] Comment on above: Performed By: #### C BC #### [facility] [address] [place] [address] Dr. Nazia Faria MANUAL DIFF REQ NO Normal [facility] Comment on above: Performed By: #### C BC #### [facility] [address] [place] [address] Dr. Nazia Faria MCH (RBC) [Entitic mass] 30.5 pg Normal 25.9-34.0 [facility] Comment on above: Performed By: #### C BC #### [facility] [address] [place] [address] Dr. Nazia Faria MCHC (RBC) [Mass/Vol] 32.9 g/dL Normal 29.9-35.2 [facility] Comment on above: Performed By: #### C BC #### [facility] [address] [address] [address] Nazia Faria MCV (RBC) [Entitic vol] 92.4 fL Normal 80.0-94.0 [facility] Comment on above: Performed By: #### C BC #### [facility] [address] [address] [address] Nazia Faria MONO # 0.7 103/ul Normal 0.3-0.8 [facility] Comment on above: Performed By: #### C BC #### [facility] [address] [address] [address] Nazia Faria Monocytes/100 WBC (Bld) 8.3 % Normal 1.7-12.0 [facility] Comment on above: Performed By: #### C BC #### [facility] [address] [address] [address] Nazia Faria NEUT # 5.7 103/ul Normal 1.4-6.5 [facility] Comment on above: Performed By: #### C BC #### [facility] [address] [address] [address] Nazia Faria Neutrophils/100 WBC (Bld) 70.4 % Normal 43.0-75.0 [facility] Comment on above: Performed By: #### C BC #### [facility] [address] [address] [address] Nazia Faria Platelet mean volume (Bld) [Entitic vol] 10.3 fL Normal 9.5-13.5 [facility] Comment on above: Performed By: #### C BC #### [facility] [address] [address] [address] Nazia Faria PLT 379 103/ul Normal 150-450 [facility] Comment on above: Performed By: #### C BC #### [facility] [id number] Nazia Faria RBC 4.63 106/ul Critically low 4.70-6.10 [facility] Comment on above: Performed By: #### C BC #### [facility] [address] [place] [address] Dr. Nazia Faria WBC 8.1 103/ul Normal 4.0-11.0 [facility] Comment on above: Performed By: #### C BC #### [facility] [address] [place] [address] Dr. Nazia Faria CULTURE STOOLon 11-29-2021 CULTURE STOOL Culture Observations : NO GROWTH SALMONELLA, SHIGELLA, YERSINIA, CAMPY, E.COLI 0157, OR STAPH AT 72 HRS Normal [facility] Comment on above: Performed By: #### C BC #### [facility] [address] [place] [address] Dr. Nazia Faria LIPID PROFILEon 11-29-2021 CHOL-HDL RATIO NORM SEE BELOW Normal [facility] Comment on above: Result Comment: 3.3 - 4.4 LOW RISK 4.4 - 7.1 AVERAGE RISK 7.1 - 11.0 MODERATE RISK >11.0 HIGH RISK Performed By: #### C BC #### [facility] [address] [place] [address] Dr. Nazia Faria Cholesterol [Mass/Vol] 170 mg/dL Normal <=200 [facility] Comment on above: Performed By: #### C BC #### [facility] [address] [place] [address] Dr. Nazia Faria Cholesterol in HDL [Mass/Vol] 48 mg/dL Normal [facility] Comment on above: Performed By: #### C BC #### [facility] [address] [place] [address] Dr. Nazia Faria Cholesterol in LDL [Mass/Vol] 111.4 mg/dL Normal [facility] Comment on above: Performed By: #### C BC #### [facility] [address] [place] [address] Dr. Nazia Faria Cholesterol.total/C holesterol in HDL [Mass ratio] 3.5 {ratio} Normal [facility] Comment on above: Performed By: #### C BC #### [facility] [address] [place] [address] Dr. Nazia Faria HDL NORMAL > or = 60 mg/dl - LO W CARDIOVASCULAR RISK <40 mg/dl - HIGH CARDIOVASCULAR RISK Normal [facility] Comment on above: Performed By: #### C BC #### [facility] [address] [address] [address] Nazia Faria LDL CALC NORMAL SEE BELOW Normal [facility] Comment on above: Result Comment: <100 mg/dl OPTIMAL 100 - 129 mg/dl NEAR OR ABOVE OPTIMAL 130 - 159 mg/dl BORDERLINE HIGH 160 - 189 mg/dl HIGH >190 mg/dl VERY HIGH Performed By: #### C BC #### [facility] [address] [address] [address] Nazia Faria Triglyceride [Mass/Vol] 53 mg/dL Normal <=150 [facility] Comment on above: Performed By: #### C BC #### [facility] [address] [place] [address] Dr. Nazia Faria VLDL CALC 10.6 mg/dL Normal [facility] Comment on above: Performed By: #### C BC #### [facility] [address] [place] [address] Dr. Nazia Faria PROF 14(COMP METB)on 022 Albumin [Mass/Vol] 3.6 g/dL Normal 3.5-5.0 [facility] Comment on above: Performed By: #### C BC #### [facility] [address] [place] [address] Dr. Nazia Faria Albumin/Globulin [Mass ratio] 0.9 {ratio} Normal [facility] Comment on above: Performed By: #### C BC #### [facility] [address] [place] [address] Dr. Nazia Faria ALP [Catalytic activity/Vol] 104 U/L Normal 38-126 [facility] Comment on above: Performed By: #### C BC #### [facility] [address] [place] [address] Dr. Nazia Faria ALT [Catalytic activity/Vol] 16 U/L Critically low 21-72 [facility] Comment on above: Performed By: #### C BC #### [facility] [address] [address] [address] Nazia Faria Anion gap [Moles/Vol] 11.3 mmol/L Normal [facility] Comment on above: Performed By: #### C BC #### [facility] [address] [address] [address] Nazia Faria AST [Catalytic activity/Vol] 14 U/L Critically low 17-59 [facility] Comment on above: Performed By: #### C BC #### [facility] [address] [address] [address] Nazia Faria Bilirubin [Mass/Vol] 0.6 mg/dL Normal 0.2-1.3 [facility] Comment on above: Performed By: #### C BC #### [facility] [address] [place] [address] Dr. Nazia Faria Calcium [Mass/Vol] 9.1 mg/dL Normal 8.4-10.2 [facility] Comment on above: Performed By: #### C BC #### [facility] [address] [place] [address] Dr. Nazia Faria Chloride [Moles/Vol] 105 mmol/L Normal 98-107 [facility] Comment on above: Performed By: #### C BC #### [facility] [address] [place] [address] Dr. Nazia Faria CO2 [Moles/Vol] 25.8 mmol/L Normal 22.0-30.0 [facility] Comment on above: Performed By: #### C BC #### [facility] [address] [place] [address] Dr. Nazia Faria Creatinine [Mass/Vol] 0.78 mg/dL Normal 0.66-1.25 [facility] Comment on above: Performed By: #### C BC #### [facility] [address] [address] [address] Nazia Faria EGFR-AF EQUATORIAL GUINEAN >60 Normal >=60 [facility] Comment on above: Performed By: #### C BC #### [facility] [address] [place] [address] Dr. Nazia Faria EGFR-NON AF EQUATORIAL GUINEAN >60 Normal >=60 [facility] Comment on above: Performed By: #### C BC #### [facility] [address] [place] [address] Dr. Nazia Faria Globulin (S) [Mass/Vol] 4.1 g/dL Normal [facility] Comment on above: Performed By: #### C BC #### [facility] [address] [address] [address] Nazia Faria Glucose [Mass/Vol] 95 mg/dL Normal 74-106 [facility] Comment on above: Performed By: #### C BC #### [facility] [address] [place] [address] Dr. Nazia Faria Potassium [Moles/Vol] 4.1 mmol/L Normal 3.4-5.0 [facility] Comment on above: Performed By: #### C BC #### [facility] [address] [place] [address] Dr. Nazia aFria Protein [Mass/Vol] 7.7 g/dL Normal 6.1-8.2 [facility] Comment on above: Performed By: #### C BC #### [facility] [address] [place] [address] Dr. Nazia Faria Sodium [Moles/Vol] 138 mmol/L Normal 137-145 [facility] Comment on above: Performed By: #### C BC #### [facility] [address] [place] [address] Dr. Nazia Faria Urea nitrogen [Mass/Vol] 23.0 mg/dL Critically high 9.0-20.0 [facility] Comment on above: Performed By: #### C BC #### [facility] [address] [place] [address] Dr. Nazia Faria Urea nitrogen/Creatinine [Mass ratio] 29.5 mg/mg Normal [facility] Comment on above: Performed By: #### C BC #### [facility] [address] [place] [address] Dr. Nazia Faria TSHon 11-29-2021 TSH 1.178 uIU/mL Normal 0.470-4.680 [facility] Comment on above: Performed By: #### C BC #### [facility] [address] [place] [address] Dr. Nazia Faria TSH RANGE SEE BELOW Normal [facility] Comment on above: Result Comment: <0.3 4 UIU/ml HYPERTHYROID 0.34-5.60 UIU/ml EUTHYROID >5.60 UIU/ml HYPOTHYROID Performed By: #### C BC #### [facility] [address] [place] [address] Dr. Nazia Faria CBC AUTO DIFFon 09-16-2021 BASO # 0.1 103/ul Normal 0.0-0.1 [facility] Comment on above: Performed By: #### C BC #### [facility] [address] [place] [address] Dr. Nazia Faria Basophils/100 WBC (Bld) 1.0 % Normal 0.2-2.0 [facility] Comment on above: Performed By: #### C BC #### [facility] [address] [place] [address] Dr. Nazia Faria EO # 0.2 103/ul Normal 0.0-0.7 [facility] Comment on above: Performed By: #### C BC #### [facility] [address] [place] [address] Dr. Nazia Faria Eosinophils/100 WBC (Bld) 2.8 % Normal 0.9-7.0 [facility] Comment on above: Performed By: #### C BC #### [facility] [address] [place] [address] Dr. Nazia Faria Erythrocyte distribution width (RBC) [Ratio] 12.7 % Normal 11.0-15.0 [facility] Comment on above: Performed By: #### C BC #### [facility] [address] [place] [address] Dr. Nazia Faria Hematocrit (Bld) [Volume fraction] 42.8 % Normal 42.0-54.0 [facility] Comment on above: Performed By: #### C BC #### [facility] [address] [place] [address] Dr. Naiza Faria Hemoglobin (Bld) [Mass/Vol] 14.8 g/dL Normal 14.0-18.0 [facility] Comment on above: Performed By: #### C BC #### [facility] [address] [place] [address] Dr. Nazia Faria IG # 0.02 10e3/ul Normal 0.00-0.03 [facility] Comment on above: Performed By: #### C BC #### [facility] [address] [place] [address] Dr. Nazia Faria IG % 0.3 % Normal 0.0-0.5 [facility] Comment on above: Performed By: #### C BC #### [facility] [address] [place] [address] Dr. Nazia Faria LYMPH # 2.0 103/ul Normal 1.2-3.8 [facility] Comment on above: Performed By: #### C BC #### [facility] [address] [place] [address] Dr. Nazia Faria Lymphocytes/100 WBC (Bld) 25.7 % Normal 20.5-60.0 [facility] Comment on above: Performed By: #### C BC #### [facility] [address] [place] [address] Dr. Nazia Faria MANUAL DIFF REQ NO Normal [facility] Comment on above: Performed By: #### C BC #### [facility] [address] [place] [address] Dr. Nazia Faria MCH (RBC) [Entitic mass] 31.0 pg Normal 25.9-34.0 [facility] Comment on above: Performed By: #### C BC #### [facility] [address] [place] [address] Dr. Nazia Faria MCHC (RBC) [Mass/Vol] 34.6 g/dL Normal 29.9-35.2 [facility] Comment on above: Performed By: #### C BC #### [facility] [address] [place] [address] Dr. Nazia Faria MCV (RBC) [Entitic vol] 89.5 fL Normal 80.0-94.0 [facility] Comment on above: Performed By: #### C BC #### [facility] [address] [place] [address] Dr. Nazia Faria MONO # 0.5 103/ul Normal 0.3-0.8 [facility] Comment on above: Performed By: #### C BC #### [facility] [address] [place] [address] Dr. Nazia Faria Monocytes/100 WBC (Bld) 6.0 % Normal 1.7-12.0 [facility] Comment on above: Performed By: #### C BC #### [facility] [address] [place] [address] Dr. Nazia Faria NEUT # 5.0 103/ul Normal 1.4-6.5 [facility] Comment on above: Performed By: #### C BC #### [facility] [address] [place] [address] Dr. Nazia Faria Neutrophils/100 WBC (Bld) 64.2 % Normal 43.0-75.0 [facility] Comment on above: Performed By: #### C BC #### [facility] [address] [place] [address] Dr. Nazia Faria Platelet mean volume (Bld) [Entitic vol] 9.6 fL Normal 9.5-13.5 [facility] Comment on above: Performed By: #### C BC #### [facility] [address] [place] [address] Dr. Nazia Faria PLT 277 103/ul Normal 150-450 [facility] Comment on above: Performed By: #### C BC #### [facility] [address] [place] [address] Dr. Nazia Faria RBC 4.78 106/ul Normal 4.70-6.10 [facility] Comment on above: Performed By: #### C BC #### [facility] [address] [place] [address] Dr. Nazia Faria WBC 7.8 103/ul Normal 4.0-11.0 [facility] Comment on above: Performed By: #### C BC #### [facility] [address] [address] [address] ABD/PELV W CONon 09-16-20 CT ABD/PELV W CON EXAMINATION: CT ABD/ PELV W CON, , 09/16/2021 4:50 PM EST INDICATION: UNSPECIFIED ABDOMINAL PAIN HISTORY: Ordering Provider Reason for Exam: Technologist Note: Additional: History of recent diverticulitis with sigmoid abscess. Lower abdominal pain. COMPARISON: CT abdomen and pelvis with contrast, 08/27/2021. TECHNIQUE: CT scan of the abdomen and pelvis was performed with IV contrast. CT dose reduction technique was used, including Automated Exposure Control. IV CONTRAST: 100 mL Omnipaque 300. FINDINGS: Severe cardiomegaly is stable. No pericardial effusion. Mild atelectasis at the lung bases. There is no pleural effusion. Liver unremarkable. Gallbladder normal. No abnormal bile duct dilatation. Pancreas normal. Spleen normal. Adrenal glands are unremarkable. Kidneys are normal. Stomach normal. Duodenum normal. No small bowel obstruction. Normal appendix. There is thickening of the wall of the colon along the lower portion of the descending colon and sigmoid colon. Previously seen intramural abscess in the wall of the sigmoid colon has resolved. No perforation. No free air. Abdominal aorta is normal. Inferior vena cava is normal. No lymphadenopathy. No free air. No ascites. In the pelvis, there is generalized bladder wall thickening which is stable. Prostate gland unremarkable. Rectum unremarkable. No free fluid in pelvis. No pelvic lymphadenopathy. Spondylolysis at L5. No acute compression fracture. No suspicious osseous lesions. IMPRESSION: 1. There is abnormal thickening of the wall of the descending colon and sigmoid colon consistent with colitis. The inflammation along the sigmoid colon has improved. The previously seen intramural abscess in the sigmoid colon has resolved. There is no perforation. No abscess. 2. No small bowel obstruction. Appendix normal. 3. Severe cardiomegaly stable. Electronically authenticated by: KANU CARNEY Date: 2021-09-16 20:03 Normal [facility] PROF CHEM 8 (BAS METB)on Anion gap [Moles/Vol] 14.0 mmol/L Normal [facility] Comment on above: Performed By: #### B MP #### [facility] [address] [address] [address] Nazia Faria Calcium [Mass/Vol] 8.3 mg/dL Critically low 8.4-10.2 [facility] Comment on above: Performed By: #### B MP #### [facility] [address] [address] [address] Nazia Faria Chloride [Moles/Vol] 104 mmol/L Normal 98-107 [facility] Comment on above: Performed By: #### B MP #### [facility] [address] [address] [address] Nazia Faria CO2 [Moles/Vol] 23.7 mmol/L Normal 22.0-30.0 [facility] Comment on above: Performed By: #### B MP #### [facility] [address] [address] [address] Nazia Faria Creatinine [Mass/Vol] 0.86 mg/dL Normal 0.66-1.25 [facility] Comment on above: Performed By: #### B MP #### [facility] [address] [address] [address] Nazia Faria EGFR-AF EQUATORIAL GUINEAN >60 Normal >=60 [facility] Comment on above: Performed By: #### B MP #### [facility] [address] [address] [address] Nazia Faria EGFR-NON AF EQUATORIAL GUINEAN >60 Normal >=60 [facility] Comment on above: Performed By: #### B MP #### [facility] [facility] [address] [address] [address] Nazia Faria Glucose [Mass/Vol] 77 mg/dL Normal 74-106 [facility] Comment on above: Performed By: #### B MP #### [facility] [address] [address] [address] Nazia Faria Potassium [Moles/Vol] 3.7 mmol/L Normal 3.4-5.0 [facility] Comment on above: Performed By: #### B MP #### [facility] [address] [address] [address] Nazia Faria Sodium [Moles/Vol] 138 mmol/L Normal 137-145 [facility] Comment on above: Performed By: #### B MP #### [facility] [address] [place] [address] Dr. Nazia Faria Urea nitrogen [Mass/Vol] 9.0 mg/dL Normal 9.0-20.0 [facility] Comment on above: Performed By: #### B MP #### [facility] [address] [place] [address] Dr. Nazia Faria Urea nitrogen/Creatinine [Mass ratio] 10.5 mg/mg Normal [facility] Comment on above: Performed By: #### B MP #### [facility] [address] [place] [address] Dr. Nazia Faria CARDIAC VIVIANA ADMITon 021 CK [Catalytic activity/Vol] 68 U/L Normal 55-170 [facility] Comment on above: Performed By: #### C BC #### [facility] [address] [place] [address] Dr. Nazia Faria CK.MB [Mass/Vol] 0.95 ng/mL Normal <=2.37 [facility] Comment on above: Performed By: #### C BC #### [facility] [address] [place] [address] Dr. Nazia Faria HSTROP 4.9 pg/mL Normal 4.0-42.2 [facility] Comment on above: Result Comment: CUT- OFF POINTS HAVE BEEN ESTABLISHED BASED ON THE FOURTH UNIVERSAL DEFINITIONS OF MYOCARDIAL INFARCTION. THE UPPER REFERENCE LIMIT (URL) OF TROPONIN, DEFINED THE 99TH PERCENTILE OF cTnI DISTRIBUTION IN A REFERENCE POPULATION, HAS BEEN CONFIRMED THE DECISION THRESHOLD FOR MT DIAGNOSIS. Performed By: #### C BC #### [facility] [address] [place] [address] Dr. Nazia Faria ROLY 25.0 ng/mL Normal <=121.0 [facility] Comment on above: Performed By: #### C BC #### [facility] [address] [place] [address] Dr. Nazia Faria CBC AUTO DIFFon 08-27-2021 BASO # 0.1 103/ul Normal 0.0-0.1 [facility] Comment on above: Performed By: #### C BC #### [facility] [address] [place] [address] Dr. Nazia Faria Basophils/100 WBC (Bld) 0.6 % Normal 0.2-2.0 [facility] Comment on above: Performed By: #### C BC #### [facility] [address] [place] [address] Dr. Nazia Faria EO # 0.3 103/ul Normal 0.0-0.7 [facility] Comment on above: Performed By: #### C BC #### [facility] [address] [place] [address] Dr. Nazia Faria Eosinophils/100 WBC (Bld) 2.9 % Normal 0.9-7.0 [facility] Comment on above: Performed By: #### C BC #### [facility] [address] [place] [address] Dr. Nazia Faria Erythrocyte distribution width (RBC) [Ratio] 12.8 % Normal 11.0-15.0 [facility] Comment on above: Performed By: #### C BC #### [facility] [address] [place] [address] Dr. Nazia Faria Hematocrit (Bld) [Volume fraction] 43.5 % Normal 42.0-54.0 [facility] Comment on above: Performed By: #### C BC #### [facility] [address] [place] [address] Dr. Nazia Faria Hemoglobin (Bld) [Mass/Vol] 15.2 g/dL Normal 14.0-18.0 [facility] Comment on above: Performed By: #### C BC #### [facility] [address] [place] [address] Dr. Nazia Faria IG # 0.02 10e3/ul Normal 0.00-0.03 [facility] Comment on above: Performed By: #### C BC #### [facility] [address] [place] [address] Dr. Nazia Faria IG % 0.2 % Normal 0.0-0.5 [facility] Comment on above: Performed By: #### C BC #### [facility] [address] [place] [address] Dr. Nazia Faria LYMPH # 1.6 103/ul Normal 1.2-3.8 [facility] Comment on above: Performed By: #### C BC #### [facility] [address] [place] [address] Dr. Nazia Faria Lymphocytes/100 WBC (Bld) 15.5 % Critically low 20.5-60.0 [facility] Comment on above: Performed By: #### C BC #### [facility] [address] [place] [address] Dr. Nazia Faria MANUAL DIFF REQ NO Normal [facility] Comment on above: Performed By: #### C BC #### [facility] [address] [place] [address] Dr. Nazia Faria MCH (RBC) [Entitic mass] 31.1 pg Normal 25.9-34.0 [facility] Comment on above: Performed By: #### C BC #### [facility] [address] [place] [address] Dr. Nazia Faria MCHC (RBC) [Mass/Vol] 34.9 g/dL Normal 29.9-35.2 [facility] Comment on above: Performed By: #### C BC #### [facility] [address] [place] [address] Dr. Nazia Faria MCV (RBC) [Entitic vol] 89.0 fL Normal 80.0-94.0 [facility] Comment on above: Performed By: #### C BC #### [facility] [address] [place] [address] Dr. Nazia Faria MONO # 0.6 103/ul Normal 0.3-0.8 [facility] Comment on above: Performed By: #### C BC #### [facility] [address] [place] [address] Dr. Nazia Faria Monocytes/100 WBC (Bld) 6.2 % Normal 1.7-12.0 [facility] Comment on above: Performed By: #### C BC #### [facility] [address] [place] [address] Dr. Nazia Faria NEUT # 7.6 103/ul Critically high 1.4-6.5 [facility] Comment on above: Performed By: #### C BC #### [facility] [address] [address] [address] Nazia Faria Neutrophils/100 WBC (Bld) 74.6 % Normal 43.0-75.0 [facility] Comment on above: Performed By: #### C BC #### [facility] [address] [place] [address] Dr. Nazia Faria Platelet mean volume (Bld) [Entitic vol] 10.0 fL Normal 9.5-13.5 [facility] Comment on above: Performed By: #### C BC #### [facility] [address] [place] [address] Dr. Nazia Faria PLT 280 103/ul Normal 150-450 [facility] Comment on above: Performed By: #### C BC #### [facility] [address] [place] [address] Dr. Nazia Faria RBC 4.89 106/ul Normal 4.70-6.10 [facility] Comment on above: Performed By: #### C BC #### [facility] [address] [place] [address] Dr. Nazia Faria WBC 10.2 103/ul Normal 4.0-11.0 [facility] Comment on above: Performed By: #### C BC #### [facility] [address] [place] [address] ABD/PELV W CONon 08-27-20 CT ABD/PELV W CON CT ABDOMEN AND PELVI S WITH CONTRAST: INDICATION: DIARRHEA, UNSPECIFIED. COMPARISON: None. TECHNIQUE: Helical CT images of the abdomen and pelvis were obtained after the administration of intravenous contrast. Dose reduction techniques were achieved by using automated exposure control and/or adjustment of mA and/or kV according to patient size and/or use of iterative reconstruction technique. FINDINGS: LOWER CHEST: Moderate cardiomegaly with right ventricular dilatation. Mild bibasilar atelectasis and/or scarring. Mild emphysematous changes. LIVER: Reflux of contrast into the IVC and hepatic veins which appears somewhat engorged compatible with elevated right heart pressures. Otherwise unremarkable. GALLBLADDER AND BILIARY SYSTEM: Normal. SPLEEN: Normal. PANCREAS: Normal. ADRENAL GLANDS: Normal. KIDNEYS AND URETERS: 4 mm right upper pole renal cyst. Otherwise normal. VASCULATURE: Normal. RETROPERITONEUM AND LYMPH NODES: Normal, with no lymphadenopathy. GASTROINTESTINAL TRACT/MESENTERY: Diverticula within the sigmoid colon with evidence of acute diverticulitis. There is mild pericolonic fat stranding and moderate wall thickening. There is a fluid collection in the posterior wall of the sigmoid colon on image 92 series 11 measuring 1.7 x 1.3 cm compatible with an intramural abscess. Bowel loops are normal in caliber. Normal appendix. BLADDER: Normal. REPRODUCTIVE SYSTEM: Normal prostate. BODY WALL: Small fat-containing umbilical hernia. BONES: Bilateral pars defects at L5 with no evidence of spondylolisthesis. No acute osseous abnormality. IMPRESSION: 1. Acute diverticulitis in the sigmoid colon with a 1.7 x 1.3 cm intramural abscess. Recommend follow-up colonoscopy to exclude an underlying mass. 2. Moderate cardiomegaly with right ventricular dilatation and additional evidence of elevated right heart pressures. Consider echocardiography. 3. Mild emphysematous changes at the bilateral lung bases. 4. Bilateral pars defects at L5. 5. Small right renal cyst and small fat-containing umbilical hernia. Electronically authenticated by: KELLY HERNANDEZ Date: 2021-08-27 18:23 Normal [facility] LIPASEon 08-27-2021 Lipase [Catalytic activity/Vol] 112.0 U/L Normal 23.0-300.0 [facility] Comment on above: Performed By: #### C BC #### [facility] [address], [place] [address] Dr. Nazia Faria PH VENOUS BLOODon 08-27-2021 PCO2 VENOUS 35.6 mmHg Critically low 40.0-52.0 [facility] Comment on above: Performed By: #### P HVEN #### [facility] [address], [place] [address] Dr. Nazia Faria pH VENOUS 7.43 Normal 7.33-7.43 [facility] Comment on above: Performed By: #### P HVEN #### [facility] [address] [place] [address] Dr. Nazia Faria PROF 14(COMP METB)on 021 Albumin [Mass/Vol] 3.3 g/dL Critically low 3.5-5.0 [facility] Comment on above: Performed By: #### C BC #### [facility] [address] [place] [address] Dr. Nazia Faria Albumin/Globulin [Mass ratio] 0.8 {ratio} Normal [facility] Comment on above: Performed By: #### C BC #### [facility] [address] [place] [address] Dr. Nazia Faria ALP [Catalytic activity/Vol] 95 U/L Normal 38-126 [facility] Comment on above: Performed By: #### C BC #### [facility] [address] [place] [address] Dr. Nazia Faria ALT [Catalytic activity/Vol] 14 U/L Critically low 21-72 [facility] Comment on above: Performed By: #### C BC #### [facility] [address] [place] [address] Dr. Nazia Faria Anion gap [Moles/Vol] 13.4 mmol/L Normal [facility] Comment on above: Performed By: #### C BC #### [facility] [address] [place] [address] Dr. Nazia Faria AST [Catalytic activity/Vol] 16 U/L Critically low 17-59 [facility] Comment on above: Performed By: #### C BC #### [facility] [address] [place] [address] Dr. Nazia Faria Bilirubin [Mass/Vol] 0.6 mg/dL Normal 0.2-1.3 [facility] Comment on above: Performed By: #### C BC #### [facility] [address] [place] [address] Dr. Nazia Faria Calcium [Mass/Vol] 8.8 mg/dL Normal 8.4-10.2 [facility] Comment on above: Performed By: #### C BC #### [facility] [address] [address] [address] Nazia Faria Chloride [Moles/Vol] 106 mmol/L Normal 98-107 [facility] Comment on above: Performed By: #### C BC #### [facility] [address] [address] [address] Nazia Faria CO2 [Moles/Vol] 23.4 mmol/L Normal 22.0-30.0 [facility] Comment on above: Performed By: #### C BC #### [facility] [address] [place] [address] Dr. Nazia Faria Creatinine [Mass/Vol] 0.78 mg/dL Normal 0.66-1.25 [facility] Comment on above: Performed By: #### C BC #### [facility] [address] [place] [address] Dr. Nazia Faria EGFR-AF EQUATORIAL GUINEAN >60 Normal >=60 [facility] Comment on above: Performed By: #### C BC #### [facility] [address] [place] [address] Dr. Nazia Faria EGFR-NON AF EQUATORIAL GUINEAN >60 Normal >=60 [facility] Comment on above: Performed By: #### C BC #### [facility] [address] [place] [address] Dr. Nazia Faria Globulin (S) [Mass/Vol] 4.0 g/dL Normal [facility] Comment on above: Performed By: #### C BC #### [facility] [address] [place] [address] Dr. Nazia Faria Glucose [Mass/Vol] 106 mg/dL Normal 74-106 [facility] Comment on above: Performed By: #### C BC #### [facility] [address] [place] [address] Dr. Nazia Faria Potassium [Moles/Vol] 3.8 mmol/L Normal 3.4-5.0 [facility] Comment on above: Performed By: #### C BC #### [facility] [address], [place] [address] Dr. Nazia Faria Protein [Mass/Vol] 7.3 g/dL Normal 6.1-8.2 [facility] Comment on above: Performed By: #### C BC #### [facility] [address], [place] [address] Dr. Nazia Faria Sodium [Moles/Vol] 139 mmol/L Normal 137-145 [facility] Comment on above: Performed By: #### C BC #### [facility] [address] [address] [address] Nazia Faria Urea nitrogen [Mass/Vol] 5.0 mg/dL Critically low 9.0-20.0 [facility] Comment on above: Performed By: #### C BC #### [facility] [address] [address] [address] Nazia Faria Urea nitrogen/Creatinine [Mass ratio] 6.4 mg/mg Normal [facility] Comment on above: Performed By: #### C BC #### [facility] [address] [address] [address] Nazia Faria Vital Signs Date Time Vital Sign Value Performing Clinician Desire hays 02-09-2023 13:49-0400 Body height 172.7 cm Pacc 4 Work Phone: [facility] 02-09-2023 13:49-0400 Body temperature 97 [degF] Pacc 4 Work Phone: [facility] 02-09-2023 13:49-0400 Body weight 61.24 kg Pacc 4 Work Phone: [facility] 02-09-2023 13:49-0400 Diastolic blood pressure 67 mm[Hg] Pacc 4 Work Phone: [facility] 02-09-2023 13:49-0400 Heart rate 78 /min Pacc 4 Work Phone: [facility] 02-09-2023 13:49-0400 Respiratory rate 16 /min Pacc 4 Work Phone: [facility] 02-09-2023 13:49-0400 SaO2% (BldA) [Mass fraction] 99 % [facility] 4 Work Phone: [facility] 02-09-2023 13:49-0400 Systolic blood pressure 130 mm[Hg] [facility] 4 Work Phone: [facility] 01-17-2023 10:22-0400 Body height 172.7 cm Ana Enriquez MD Work Phone: [facility] 01-17-2023 10:22-0400 Body temperature 97.3 [degF] Ana Enriquez MD Work Phone: [facility] 01-17-2023 10:22-0400 Body weight 58.97 kg Ana Enriquez MD Work Phone: [facility] 01-17-2023 10:22-0400 Diastolic blood pressure 55 mm[Hg] Ana Enriquez MD Work Phone: [facility] 01-17-2023 10:22-0400 Heart rate 55 /min Ana Enriquez MD Work Phone: [facility] 01-17-2023 10:22-0400 SaO2% (BldA) [Mass fraction] 95 % Ana Enriquez MD Work Phone: [facility] 01-17-2023 10:22-0400 Systolic blood pressure 98 mm[Hg] Ana Enriquez MD Work Phone: [facility] 12-06-2022 10:35-0500 Body height 172.7 cm Kaylin Aragon APRN.FILE CONVERSION OPERATOR Work Phone: [facility] 12-06-2022 10:35-0500 Body temperature 97.59 [degF] Kaylin Aragon APRN.FILE CONVERSION OPERATOR Work Phone: [facility] 12-06-2022 10:35-0500 Body weight 58.97 kg Kaylin Aragon APRN.FILE CONVERSION OPERATOR Work Phone: [facility] 12-06-2022 10:35-0500 Diastolic blood pressure 62 mm[Hg] Kaylin Aragon APRN.FILE CONVERSION OPERATOR Work Phone: [facility] 12-06-2022 10:35-0500 Heart rate 73 /min Kaylin Aragon APRN.FILE CONVERSION OPERATOR Work Phone: [facility] 12-06-2022 10:35-0500 Respiratory rate 20 /min Kaylin Aragon APRN.FILE CONVERSION OPERATOR Work Phone: [facility] 12-06-2022 10:35-0500 SaO2% (BldA) [Mass fraction] 96 % Kaylin Aragon APRN.FILE CONVERSION OPERATOR Work Phone: [facility] 12-06-2022 10:35-0500 Systolic blood pressure 117 mm[Hg] Kaylin Aragon APRN.FILE CONVERSION OPERATOR Work Phone: [facility] 10-28-2022 11:35-0500 Body height 172.7 cm Pacc 2 Work Phone: [facility] 10-28-2022 11:35-0500 Body temperature 97.2 [degF] Pacc 2 Work Phone: [facility] 10-28-2022 11:35-0500 Body weight 60.33 kg Pacc 2 Work Phone: [facility] 10-28-2022 11:35-0500 Diastolic blood pressure 67 mm[Hg] Pacc 2 Work Phone: [facility] 10-28-2022 11:35-0500 Heart rate 66 /min Pacc 2 Work Phone: [facility] 10-28-2022 11:35-0500 Respiratory rate 14 /min Pacc 2 Work Phone: [facility] 10-28-2022 11:35-0500 SaO2% (BldA) [Mass fraction] 100 % Pacc 2 Work Phone: [facility] 10-28-2022 11:35-0500 Systolic blood pressure 125 mm[Hg] Pacc 2 Work Phone: [facility] 10-13-2022 15:40-0500 Diastolic blood pressure 71 mm[Hg] Ana Enriquez MD Work Phone: [facility] 10-13-2022 15:40-0500 Heart rate 57 /min Ana Enriquez MD Work Phone: [facility] 10-13-2022 15:40-0500 Respiratory rate 18 /min Ana Enriquez MD Work Phone: [facility] 10-13-2022 15:40-0500 SaO2% (BldA) [Mass fraction] 100 % Ana Enriquez MD Work Phone: [facility] 10-13-2022 15:40-0500 Systolic blood pressure 105 mm[Hg] Ana Enriquez MD Work Phone: [facility] 10-13-2022 15:10-0500 Body temperature 97.11 [degF] Ana Enriquez MD Work Phone: [facility] 10-04-2022 16:30-0500 Body height 172.7 cm Ana Enriquez MD Work Phone: [facility] 10-04-2022 16:30-0500 Body weight 60.33 kg Ana Enriquez MD Work Phone: [facility] 10-04-2022 16:30-0500 Diastolic blood pressure 66 mm[Hg] Ana Enriquez MD Work Phone: [facility] 10-04-2022 16:30-0500 Heart rate 64 /min Ana Enriquez MD Work Phone: [facility] 10-04-2022 16:30-0500 Systolic blood pressure 119 mm[Hg] Ana Enriquez MD Work Phone: [facility] 08-26-2022 10:40-0400 Body height 172.4 cm Temi Dean PA-C Work Phone: [facility] 08-26-2022 10:40-0400 Body temperature 97.2 [degF] Temi Dean PA-C Work Phone: [facility] 08-26-2022 10:40-0400 Body weight 60.42 kg Temi James PA-C Work Phone: [facility] 08-26-2022 10:40-0400 Diastolic blood pressure 74 mm[Hg] Temi James PA-C Work Phone: [facility] 08-26-2022 10:40-0400 Heart rate 73 /min Temi James PA-C Work Phone: [facility] 08-26-2022 10:40-0400 Respiratory rate 16 /min Temi James PA-C Work Phone: [facility] 08-26-2022 10:40-0400 SaO2% (BldA) [Mass fraction] 98 % Temi James PA-C Work Phone: [facility] 08-26-2022 10:40-0400 Systolic blood pressure 102 mm[Hg] Temi James PA-C Work Phone: [facility] 08-05-2022 10:03-0400 Body height 172.4 cm Chair Clay Work Phone: [facility] 08-05-2022 10:03-0400 Body weight 60.8 kg Chair Clay Work Phone: [facility] 08-05-2022 09:45-0400 Body height 172.4 cm Oscar Gonzalez MD Work Phone: [facility] 08-05-2022 09:45-0400 Body temperature 97.11 [degF] Oscar Gonzalez MD Work Phone: [facility] 08-05-2022 09:45-0400 Body weight 60.8 kg Oscar Gonzalez MD Work Phone: [facility] 08-05-2022 09:45-0400 Diastolic blood pressure 76 mm[Hg] Oscar Gonzalez MD Work Phone: [facility] 08-05-2022 09:45-0400 Heart rate 69 /min Oscar Gonzalez MD Work Phone: [facility] 08-05-2022 09:45-0400 Respiratory rate 16 /min Oscar Gonzalez MD Work Phone: [facility] 08-05-2022 09:45-0400 SaO2% (BldA) [Mass fraction] 100 % Oscar Gonzalez MD Work Phone: [facility] 08-05-2022 09:45-0400 Systolic blood pressure 115 mm[Hg] Oscar Gonzalez MD Work Phone: [facility] 08-05-2022 09:06-0400 Body temperature 97.11 [degF] Tylor Davalos MD Work Phone: [facility] 08-05-2022 09:06-0400 Body weight 60.78 kg Tylor Davalos MD Work Phone: [facility] 08-05-2022 09:06-0400 Diastolic blood pressure 76 mm[Hg] Tylor Davalos MD Work Phone: [facility] 08-05-2022 09:06-0400 Heart rate 69 /min Tylor Davalos MD Work Phone: [facility] 08-05-2022 09:06-0400 Respiratory rate 16 /min Tylor Davalos MD Work Phone: [facility] 08-05-2022 09:06-0400 SaO2% (BldA) [Mass fraction] 100 % Tylor Davalos MD Work Phone: [facility] 08-05-2022 09:06-0400 Systolic blood pressure 115 mm[Hg] Tylor Davalos MD Work Phone: [facility] 07-15-2022 09:27-0400 Body height 172.4 cm Temi Dean PA-C Work Phone: [facility] 07-15-2022 09:27-0400 Body temperature 97.9 [degF] Temi YOON-Deepak Work Phone: [facility] 07-15-2022 09:27-0400 Body weight 61.42 kg Temi James PA-C Work Phone: [facility] 07-15-2022 09:27-0400 Diastolic blood pressure 71 mm[Hg] Temi James PA-C Work Phone: [facility] 07-15-2022 09:27-0400 Heart rate 72 /min Temi James PA-C Work Phone: [facility] 07-15-2022 09:27-0400 Respiratory rate 16 /min Temi James PA-C Work Phone: [facility] [facility] 07-15-2022 09:27-0400 SaO2% (BldA) [Mass fraction] 100 % Temi James PA-C Work Phone: [facility] 07-15-2022 09:27-0400 Systolic blood pressure 121 mm[Hg] Temi James PA-C Work Phone: [facility] 06-24-2022 14:38-0400 Diastolic blood pressure 75 mm[Hg] Chair Hammond Work Phone: [facility] 06-24-2022 14:38-0400 Heart rate 69 /min Chair Hammond Work Phone: [facility] 06-24-2022 14:38-0400 Respiratory rate 16 /min Chair Hammond Work Phone: [facility] 06-24-2022 14:38-0400 SaO2% (BldA) [Mass fraction] 98 % Chair Hammond Work Phone: [facility] 06-24-2022 14:38-0400 Systolic blood pressure 123 mm[Hg] Chair Hammond Work Phone: [facility] 06-24-2022 09:39-0400 Body height 172.4 cm Oscar Gonzalez MD Work Phone: [facility] 06-24-2022 09:39-0400 Body temperature 97 [degF] Oscar Gonzalez MD Work Phone: [facility] 06-24-2022 09:39-0400 Body weight 61.33 kg Oscar Gonzalez MD Work Phone: [facility] 06-24-2022 09:39-0400 Diastolic blood pressure 72 mm[Hg] Oscar Gonzalez MD Work Phone: [facility] 06-24-2022 09:39-0400 Heart rate 61 /min Oscar Gonzalez MD Work Phone: [facility] 06-24-2022 09:39-0400 Respiratory rate 16 /min Oscar Gonzalez MD Work Phone: [facility] 06-24-2022 09:39-0400 SaO2% (BldA) [Mass fraction] 99 % Oscar Gonzalez MD Work Phone: [facility] 06-24-2022 09:39-0400 Systolic blood pressure 134 mm[Hg] Oscar Gonzalez MD Work Phone: [facility] 05-24-2022 15:13-0400 Body height 172.7 cm Oscar Gonzalez MD Work Phone: [facility] 05-24-2022 15:13-0400 Body temperature 98.01 [degF] Oscar Gonzalez MD Work Phone: [facility] 05-24-2022 15:13-0400 Body weight 64.32 kg Oscar Gonzalez MD Work Phone: [facility] 05-24-2022 15:13-0400 Diastolic blood pressure 71 mm[Hg] Oscar Gonzalez MD Work Phone: [facility] 05-24-2022 15:13-0400 Heart rate 57 /min Oscar Gonzalez MD Work Phone: [facility] 05-24-2022 15:13-0400 Respiratory rate 16 /min Oscar Gonzalez MD Work Phone: [facility] 05-24-2022 15:13-0400 SaO2% (BldA) [Mass fraction] 99 % Oscar Gonzalez MD Work Phone: [facility] 05-24-2022 15:13-0400 Systolic blood pressure 101 mm[Hg] Oscar Gonzalez MD Work Phone: [facility] 05-24-2022 11:37-0400 Body temperature 98.29 [degF] Ana Enriquez MD Work Phone: [facility] 05-24-2022 11:37-0400 Diastolic blood pressure 80 mm[Hg] Ana Enriquez MD Work Phone: [facility] 05-24-2022 11:37-0400 Heart rate 71 /min Ana Enriquez MD Work Phone: [facility] 05-24-2022 11:37-0400 Respiratory rate 16 /min Ana Enriquez MD Work Phone: [facility] 05-24-2022 11:37-0400 SaO2% (BldA) [Mass fraction] 98 % Ana Enriquez MD Work Phone: [facility] 05-24-2022 11:37-0400 Systolic blood pressure 108 mm[Hg] Ana Enriquez MD Work Phone: [facility] 04-12-2022 13:28-0400 Body height 172.7 cm Oscar Gonzalez MD Work Phone: [facility] 04-12-2022 13:28-0400 Body temperature 97.2 [degF] Oscar Gonzalez MD Work Phone: [facility] 04-12-2022 13:28-0400 Body weight 62.41 kg Oscar Gonzalez MD Work Phone: [facility] 04-12-2022 13:28-0400 Diastolic blood pressure 70 mm[Hg] Oscar Gonzalez MD Work Phone: [facility] 04-12-2022 13:28-0400 Heart rate 69 /min Oscar Gonzalez MD Work Phone: [facility] 04-12-2022 13:28-0400 Respiratory rate 16 /min Oscar Gonzalez MD Work Phone: [facility] 04-12-2022 13:28-0400 SaO2% (BldA) [Mass fraction] 97 % Oscar Gonzalez MD Work Phone: [facility] 04-12-2022 13:28-0400 Systolic blood pressure 131 mm[Hg] Oscar Gonzalez MD Work Phone: [facility] 04-06-2022 11:36-0400 Body temperature 97.39 [degF] Tylor Davalos MD Work Phone: [facility] 04-06-2022 11:36-0400 Body weight 62.14 kg Tylor Davalos MD Work Phone: [facility] 04-06-2022 11:36-0400 Diastolic blood pressure 73 mm[Hg] Tylor Davalos MD Work Phone: [facility] 04-06-2022 11:36-0400 Heart rate 76 /min Tylor Davalos MD Work Phone: [facility] 04-06-2022 11:36-0400 Respiratory rate 18 /min Tylor Davalos MD Work Phone: [facility] 04-06-2022 11:36-0400 SaO2% (BldA) [Mass fraction] 99 % Tylor Davalos MD Work Phone: [facility] 04-06-2022 11:36-0400 Systolic blood pressure 131 mm[Hg] Tylor Davalos MD Work Phone: [facility] 04-01-2022 11:02-0400 Body height 172.7 cm Temi James PA-C Work Phone: [facility] 04-01-2022 11:02-0400 Body temperature 97.11 [degF] Temi James PA-C Work Phone: [facility] 04-01-2022 11:02-0400 Body weight 62.14 kg Temi James PA-C Work Phone: [facility] 04-01-2022 11:02-0400 Diastolic blood pressure 77 mm[Hg] Temi James PA-C Work Phone: [facility] 04-01-2022 11:02-0400 Heart rate 70 /min Temi James PA-C Work Phone: [facility] 04-01-2022 11:02-0400 Respiratory rate 16 /min Temi James PA-C Work Phone: [facility] 04-01-2022 11:02-0400 SaO2% (BldA) [Mass fraction] 98 % Temi James PA-C Work Phone: [facility] 04-01-2022 11:02-0400 Systolic blood pressure 130 mm[Hg] Temi James PA-C Work Phone: [facility] 03-30-2022 11:24-0400 Body temperature 97.7 [degF] Tylor Davalos MD Work Phone: [facility] 03-30-2022 11:24-0400 Body weight 62.87 kg Tylor Davalos MD Work Phone: [facility] 03-30-2022 11:24-0400 Diastolic blood pressure 80 mm[Hg] Tylor Davalos MD Work Phone: [facility] 03-30-2022 11:24-0400 Heart rate 75 /min Tylor Davalos MD Work Phone: [facility] 03-30-2022 11:24-0400 Respiratory rate 16 /min Tylor Davalos MD Work Phone: [facility] 03-30-2022 11:24-0400 SaO2% (BldA) [Mass fraction] 99 % Tylor Davalos MD Work Phone: [facility] 03-30-2022 11:24-0400 Systolic blood pressure 123 mm[Hg] Tylor Davalos MD Work Phone: [facility] 03-23-2022 11:52-0400 Body temperature 97.11 [degF] Tylor Davalos MD Work Phone: [facility] 03-23-2022 11:52-0400 Body weight 62.14 kg Tylor Davalos MD Work Phone: [facility] 03-23-2022 11:52-0400 Diastolic blood pressure 82 mm[Hg] Tylor Davalos MD Work Phone: [facility] 03-23-2022 11:52-0400 Heart rate 80 /min Tylor Davalos MD Work Phone: [facility] 03-23-2022 11:52-0400 Respiratory rate 20 /min Tylor Davalos MD Work Phone: [facility] 03-23-2022 11:52-0400 SaO2% (BldA) [Mass fraction] 98 % Tylor Davalos MD Work Phone: [facility] 03-23-2022 11:52-0400 Systolic blood pressure 134 mm[Hg] Tylor Davalos MD Work Phone: [facility] 03-18-2022 15:04-0400 Body height 172.7 cm Bouchra Thompson FIELD AGENT.FILE CONVERSION OPERATOR Work Phone: [facility] 03-18-2022 15:04-0400 Body temperature 98.71 [degF] Bouchra Thompson FIELD AGENT.FILE CONVERSION OPERATOR Work Phone: [facility] 03-18-2022 15:04-0400 Body weight 61.24 kg Bouchra Thompson FIELD AGENT.FILE CONVERSION OPERATOR Work Phone: [facility] 03-18-2022 15:04-0400 Diastolic blood pressure 78 mm[Hg] Bouchra Thompson FIELD AGENT.FILE CONVERSION OPERATOR Work Phone: [facility] 03-18-2022 15:04-0400 Heart rate 78 /min Bouchralamont Thompson FIELD AGENT.FILE CONVERSION OPERATOR Work Phone: [facility] 03-18-2022 15:04-0400 SaO2% (BldA) [Mass fraction] 98 % Bouchra Willmartha FIELD AGENT.FILE CONVERSION OPERATOR Work Phone: [facility] 03-18-2022 15:04-0400 Systolic blood pressure 123 mm[Hg] Bouchra Willmartha FIELD AGENT.FILE CONVERSION OPERATOR Work Phone: [facility] 03-18-2022 12:44-0400 Body height 172.7 cm Oscar Gonzalez MD Work Phone: [facility] 03-18-2022 12:44-0400 Body temperature 97.59 [degF] Oscar Gonzalez MD Work Phone: [facility] 03-18-2022 12:44-0400 Body weight 61.24 kg Oscar Gonzalez MD Work Phone: [facility] 03-18-2022 12:44-0400 Diastolic blood pressure 80 mm[Hg] Oscar Gonzalez MD Work Phone: [facility] 03-18-2022 12:44-0400 Heart rate 80 /min Oscar Gonzalez MD Work Phone: [facility] 03-18-2022 12:44-0400 Respiratory rate 16 /min Oscar Gonzalez MD Work Phone: [facility] 03-18-2022 12:44-0400 SaO2% (BldA) [Mass fraction] 99 % Oscar Gonzalez MD Work Phone: [facility] 03-18-2022 12:44-0400 Systolic blood pressure 147 mm[Hg] Oscar Gonzalez MD Work Phone: [facility] 03-16-2022 11:44-0400 Body temperature 97.59 [degF] Tylor Davalos MD Work Phone: [facility] 03-16-2022 11:44-0400 Body weight 59.88 kg Tylor Davalos MD Work Phone: [facility] 03-16-2022 11:44-0400 Diastolic blood pressure 84 mm[Hg] Tylor Davalos MD Work Phone: [facility] 03-16-2022 11:44-0400 Heart rate 85 /min Tylor Davalos MD Work Phone: [facility] 03-16-2022 11:44-0400 Respiratory rate 20 /min Tylor Davalos MD Work Phone: [facility] 03-16-2022 11:44-0400 SaO2% (BldA) [Mass fraction] 99 % Tylor Davalos MD Work Phone: [facility] 03-16-2022 11:44-0400 Systolic blood pressure 141 mm[Hg] Tylor Davalos MD Work Phone: [facility] 03-01-2022 12:48-0400 Body height 172.7 cm Oscar Gonzalez MD Work Phone: [facility] 03-01-2022 12:48-0400 Body temperature 97.5 [degF] Oscar Gonzalez MD Work Phone: [facility] 03-01-2022 12:48-0400 Body weight 61.51 kg Oscar Gonzalez MD Work Phone: [facility] 03-01-2022 12:48-0400 Diastolic blood pressure 92 mm[Hg] Oscar Gonzalez MD Work Phone: [facility] 03-01-2022 12:48-0400 Heart rate 78 /min Oscar Gonzalez MD Work Phone: [facility] 03-01-2022 12:48-0400 Respiratory rate 16 /min Oscar Gonzalez MD Work Phone: [facility] 03-01-2022 12:48-0400 SaO2% (BldA) [Mass fraction] 98 % Oscar Gonzalez MD Work Phone: [facility] 03-01-2022 12:48-0400 Systolic blood pressure 135 mm[Hg] Oscar Gonzalez MD Work Phone: [facility] 02-16-2022 08:16-0400 Body height 172.7 cm Pacc 1 Other Phone: [facility] 02-16-2022 08:16-0400 Body temperature 96.69 [degF] Pacc 1 Other Phone: [facility] 02-16-2022 08:16-0400 Body weight 58.51 kg Pacc 1 Other Phone: [facility] 02-16-2022 08:16-0400 Diastolic blood pressure 91 mm[Hg] Pacc 1 Other Phone: [facility] 02-16-2022 08:16-0400 Heart rate 80 /min Pacc 1 Other Phone: [facility] 02-16-2022 08:16-0400 Respiratory rate 18 /min Pacc 1 Other Phone: [facility] 02-16-2022 08:16-0400 SaO2% (BldA) [Mass fraction] 98 % Pacc 1 Other Phone: [facility] 02-16-2022 08:16-0400 Systolic blood pressure 130 mm[Hg] Pacc 1 Other Phone: [facility] 02-11-2022 13:12-0400 Body temperature 96.91 [degF] Tylor Davalos MD Work Phone: [facility] 02-11-2022 13:12-0400 Body weight 62.6 kg Tylor Davalos MD Work Phone: [facility] 02-11-2022 13:12-0400 Diastolic blood pressure 80 mm[Hg] Tylor Davalos MD Work Phone: [facility] 02-11-2022 13:12-0400 Heart rate 65 /min Tylor Davalos MD Work Phone: [facility] 02-11-2022 13:12-0400 Respiratory rate 16 /min Tylor Davalos MD Work Phone: [facility] 02-11-2022 13:12-0400 SaO2% (BldA) [Mass fraction] 100 % Tylor Davalos MD Work Phone: [facility] 02-11-2022 13:12-0400 Systolic blood pressure 130 mm[Hg] Tylor Davalos MD Work Phone: [facility] 02-04-2022 09:56-0400 Body height 171.5 cm Oscar Gonzalez MD Work Phone: [facility] 02-04-2022 09:56-0400 Body temperature 97 [degF] Oscar Gonzalez MD Work Phone: [facility] 02-04-2022 09:56-0400 Body weight 61.33 kg Oscar Gonzalez MD Work Phone: [facility] 02-04-2022 09:56-0400 Diastolic blood pressure 75 mm[Hg] Oscar Gonzalez MD Work Phone: [facility] 02-04-2022 09:56-0400 Heart rate 68 /min Oscar Gonzalez MD Work Phone: [facility] 02-04-2022 09:56-0400 Respiratory rate 16 /min Oscar Gonzalez MD Work Phone: [facility] 02-04-2022 09:56-0400 SaO2% (BldA) [Mass fraction] 99 % Oscar Gonzalez MD Work Phone: [facility] 02-04-2022 09:56-0400 Systolic blood pressure 123 mm[Hg] Oscar Gonzalez MD Work Phone: [facility] Encounters Encounter Date Encounter Type Care Provider Facility Start: 01-22-2024 End: 01-22-2024 ambulatory [facility] Not Available Start: 10-12-2023 End: 10-12-2023 ambulatory [facility] Not Available Start: 06-02-2023 Telephone encounter Ana stover MD Work Phone: Colorectal Surgery Comment on above: Patient Question Start: 04-27-2023 End: 04-27-2023 ambulatory [facility] Facility:[facility] Start: 03-02-2023 Telephone encounter Mary Solorio MD Work Phone: [facility] Comment on above: Research Follow Up Start: 02-28-2023 Telephone encounter Karime ALONZO Comment on above: Follow Up (All clear ) Research Follow Up Start: 02-24-2023 Telephone encounter Oscar chávez MD Work Phone: Hematology/Oncology Comment on above: Patient Question Start: 02-20-2023 End: 02-22-2023 Evaluation and management of inpatient ANA ZOE Facility:[facility] Start: 02-17-2023 Telephone encounter Ana stover MD Work Phone: General Surgery Comment on above: Patient Question Start: 02-16-2023 Refill Oscar Gonzalez MD Work Phone: Hematology/Oncology Comment on above: Refill Request Start: 02-16-2023 Telephone encounter Ana stover MD Work Phone: Colorectal Surgery Comment on above: FMLA Paperwork Start: 02-09-2023 End: 02-09-2023 [facility] Start: 02-09-2023 End: 02-09-2023 [facility] Start: 02-09-2023 Encounter for other preprocedural examination TYLOR DAVALOS [facility] Start: 02-09-2023 End: 02-09-2023 Admission to [place] [id number] Work Phone: [facility] Start: 02-09-2023 End: 02-09-2023 Drug abuse prevention management Pac 4 Work Phone: Pre Anesthesia Comment on above: Preop examination (P rimary Dx); History of endocarditis; Severe tricuspid regurgitation; Former smoker; History of intravenous drug abuse (HCC); Hypothyroidism unspecified; Acute deep vein thrombosis (DVT) of proximal vein of lower extremity, unspecified laterality (HCC) Start: 02-09-2023 End: 02-09-2023 Preprocedural examination done Pac 4 Work Phone: Pre Anesthesia Start: 01-31-2023 ambulatory [facility] Facility: [facility] Start: 01-31-2023 End: 01-31-2023 Subsequent hospital visit by physician Gi/Gu 1 [facility] Work Phone: Radiology Comment on above: Encounter for follow -up surveillance of rectal cancer [Z08, Z85.048] Start: 01-17-2023 End: 01-17-2023 [facility] Facility:[facility] Start: 01-17-2023 End: 01-17-2023 Patient encounter procedure Ana Enriquez MD Work Phone: Colorectal Surgery Comment on above: Rectal cancer (HCC) (Primary Dx); Encounter for follow-up surveillance of rectal cancer; Acute post-operative pain; Attention to ileostomy (HCC) Start: 01-02-2023 Telephone encounter Ana stover MD Work Phone: Colorectal Surgery Comment on above: Patient Question Start: 12-21-2022 Telephone encounter Meghan Pichardo RN Work Phone: Hematology/Oncology Comment on above: Care Coordination (I rritation around stoma) Start: 12-20-2022 Telephone encounter Ana stover MD Work Phone: Colorectal Surgery Comment on above: Post Op Start: 12-06-2022 End: 12-06-2022 ambulatory [facility] Facility:[facility] Start: 12-06-2022 End: 12-06-2022 Patient encounter procedure Kaylin Homero FIELD AGENT.FILE CONVERSION OPERATOR Work Phone: Colorectal Surgery Comment on above: Acute post-operative pain (Primary Dx); High output ileostomy (HCC) Start: 12-05-2022 Telephone encounter Ana stover MD Work Phone: Colorectal Surgery Comment on above: Post Op Start: 12-04-2022 End: 12-04-2022 Emergency department patient visit [facility] Facility:[facility] Start: 12-02-2022 Telephone encounter Oscar chávez MD Work Phone: Hematology/Oncology Comment on above: Disability Jayant Start: 11-21-2022 Telephone encounter Meghan Pichardo RN Work Phone: Hematology/Oncology Comment on above: Care Coordination (q uestion) Start: 11-17-2022 Telephone encounter Ana stover MD Work Phone: Colorectal Surgery Comment on above: 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 (Tumor board) Start: 11-16-2022 Telephone encounter Ana stover MD Work Phone: Colorectal Surgery Comment on above: Patient Question Start: 11-07-2022 End: 11-12-2022 Evaluation and management of inpatient [facility] Facility:[facility] Start: 10-28-2022 End: 10-29-2022 ambulatory [facility] Facility:[facility] Start: 10-28-2022 Encounter for other preprocedural examination [facility] DAVALOS [facility] Start: 10-28-2022 End: 10-28-2022 Admission to establishment [facility] [place] Work Phone: [facility] Start: 10-28-2022 End: 10-28-2022 Drug abuse prevention management [facility] [place] Work Phone: Pre Anesthesia Comment on above: Pre-op evaluation (P rimary Dx); History of intravenous drug abuse (HCC); Hypothyroidism unspecified; Smoker; Severe tricuspid regurgitation; History of endocarditis; Acute deep vein thrombosis (DVT) of proximal vein of lower extremity, unspecified laterality (HCC) Start: 10-28-2022 End: 10-28-2022 Preprocedural examination done Pacc [place] Work Phone: Pre Anesthesia Start: 10-17-2022 End: 10-17-2022 ambulatory [facility] Facility:[facility] Start: 10-13-2022 ambulatory [facility] Facility: [facility] Start: 10-13-2022 End: 10-13-2022 Subsequent hospital visit by physician Ana Enriquez MD Work Phone: Procedures Comment on above: Follow-up examinatio n after colorectal surgery [Z09] Start: 10-11-2022 Telephone encounter Ana stover MD Work Phone: Colorectal Surgery Comment on above: Anesthesia Consult ( Patient not scheduled PACC) Start: 10-05-2022 Telephone encounter Ana stover MD Work Phone: Colorectal Surgery Comment on above: 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 Start: 10-04-2022 End: 10-04-2022 Orders Only Ana Enriquez MD Work Phone: Colorectal Surgery Comment on above: Rectal cancer (HCC) (Primary Dx) Encounter for follow -up surveillance of rectal cancer (Primary Dx); Malignant neoplasm of rectum (HCC) Start: 09-27-2022 Telephone encounter Meghan Pichardo RN Work Phone: Hematology/Oncology Comment on above: Care Coordination (M RI results) Start: 09-26-2022 ambulatory [facility] Facility: [facility] Start: 09-26-2022 End: 09-26-2022 Subsequent hospital visit by physician [facility] Radiology Comment on above: Lung nodules [R91.8] Start: 09-23-2022 [address] ([facility] Comment on above: APPOINTMENT INSTRUCT IONS (MRI- 09/26/2022 @ 200PM/Appointment reminder call- spoke with Elsa- gave directions to the office- states patient has another appointment before ours and will be here after/) Start: 09-05-2022 Refill Oscar Gonzalez MD Work Phone: Hematology/Oncology Comment on above: Refill Request Start: 08-26-2022 End: 08-27-2022 ambulatory Temi Dean PA-C Work Phone: Hematology/Oncology Comment on above: Malignant neoplasm o f rectum (HCC) (Primary Dx); Lung nodules Rectal cancer (HCC) (Primary Dx); Malaise and fatigue Refill Request Start: 08-26-2022 Telephone encounter Mary Solorio MD Work Phone: [facility] Comment on above: Research Follow Up Start: 08-26-2022 End: 08-26-2022 Patient encounter procedure Temi Dean PA-C Work Phone: [facility] Start: 08-25-2022 Telephone encounter Mary Solorio MD Work Phone: [facility] Comment on above: Research Follow Up Start: 08-08-2022 Telephone encounter Meghan Pichardo RN Work Phone: Hematology/Oncology Comment on above: Care Coordination (C linical update) Start: 08-05-2022 Telephone encounter [facility]car [facility]: Patient Question Start: 08-05-2022 End: 08-05-2022 ambulatory SHAIKH KIA Facility:[facility] Start: 08-05-2022 End: 08-05-2022 ambulatory Oscar Gonzalez MD Work Phone: Hematology/Oncology Comment on above: Rectal cancer (HCC) (Primary Dx) Rectal cancer (HCC) (Primary Dx); Malaise and fatigue Start: 08-05-2022 End: 08-05-2022 Patient encounter procedure Oscar Gonzalez MD Work Phone: [facility] Comment on above: Rectal cancer (HCC) Start: 07-15-2022 End: 07-16-2022 Visit (SP) Office Temi Dean PA-C Work Phone: Hematology/Oncology Comment on above: Rectal cancer (HCC) (Primary Dx); Tobacco use disorder Refill Request Rectal cancer (HCC) (Primary Dx); Malaise and fatigue B-12 Injection Start: 06-27-2022 Telephone encounter Meghan Pichardo RN Work Phone: Hematology/Oncology Comment on above: Care Coordination (M edication update/) Start: 06-24-2022 End: 06-24-2022 ambulatory OSCAR GONZAELZ Facility:[facility] Start: 06-24-2022 End: 06-27-2022 ambulatory Oscar Gonzalez MD Work Phone: Hematology/Oncology Comment on above: Rectal cancer (HCC) (Primary Dx) Start: 06-24-2022 End: 06-24-2022 Patient encounter procedure Oscar Gonzalez MD Work Phone: [place] Start: 06-23-2022 Refill Oscar Gonzalez MD Work Phone: Hematology/Oncology Comment on above: Refill Request Start: 06-07-2022 Telephone encounter Meghan Pichardo RN Work Phone: Hematology/Oncology Comment on above: Care Coordination (C 1D1 treatment follow up call/) Start: 06-03-2022 Refill Bouchra shin [facility] Work Phone: Hematology/Oncology Comment on above: Refill Request Start: 06-02-2022 Telephone encounter Bouchra Aranda [facility] Work Phone: Hematology/Oncology Comment on above: Medication Update (C APOX-capecitabine) Start: 06-02-2022 End: 06-02-2022 Nursing evaluation of patient and report Meghan Pichardo RN Work Phone: Hematology/Oncology Comment on above: Rectosigmoid cancer (HCC) (Primary Dx) Start: 05-30-2022 Telephone encounter Mary Solorio MD Work Phone: Research [place] Comment on above: Research Follow Up Start: 05-25-2022 Telephone encounter Mary Solorio MD Work Phone: Research [place] Comment on above: Research Follow Up Start: 05-24-2022 End: 05-24-2022 Refill Bouchra Pitts [facility] Work Phone: Hematology/Oncology Comment on above: Refill Request Rectal cancer (HCC) (Primary Dx); Follow-up examination after colorectal surgery; Attention to colostomy (HCC) Rectosigmoid cancer (HCC) (Primary Dx) Start: 05-13-2022 Patient encounter procedure [facility] Provider [facility] Department Start: 05-12-2022 ambulatory OSCAR GONZALEZ Facility :[facility] Start: 05-12-2022 Telephone encounter Oscar chávez MD Work Phone: Hematology/Oncology Comment on above: Return To Work Lette r Start: 05-12-2022 End: 05-12-2022 Subsequent hospital visit by physician Leroy Green (I-Stat/1.5t) Work Phone: Radiology Comment on above: Malignant neoplasm o f rectum (HCC) [C20] Start: 05-05-2022 Telephone encounter Tylor Davalos MD Work Phone: Radiation Oncology Comment on above: Nurse Triage Call (P ost Radiation Nurse Call ) Start: 05-03-2022 Telephone encounter Beverly vega RN Work Phone: Hematology/Oncology Comment on above: Care Coordination (B ack to Work Request) Start: 04-22-2022 Telephone encounter Meghan Pichardo RN Work Phone: Hematology/Oncology Comment on above: Care Coordination (m edication request) Start: 04-14-2022 Telephone encounter Oscar chávez MD Work Phone: Radiation Oncology Comment on above: Patient Update Start: 04-13-2022 Telephone encounter Oscar chávez MD Work Phone: Hematology/Oncology Comment on above: Disability [place] Start: 04-12-2022 End: 04-12-2022 ambulatory Oscar Gonzalez MD Work Phone: Hematology/Oncology Comment on above: Rectosigmoid cancer (HCC) (Primary Dx); Malignant neoplasm of rectum (HCC) Start: 04-12-2022 End: 04-12-2022 Patient encounter procedure Oscar Gonzalez MD Work Phone: [place] Start: 04-06-2022 End: 04-06-2022 Patient encounter procedure Tylor Davalos MD Work Phone: Radiation Oncology Comment on above: Rectal cancer (HCC) (Primary Dx) Start: 04-01-2022 End: 04-01-2022 ambulatory Temi Dean PA-C Work Phone: Hematology/Oncology Comment on above: Rectosigmoid cancer (HCC) (Primary Dx) Start: 04-01-2022 End: 04-01-2022 Patient encounter procedure Temi Dean PA-C Work Phone: C[facility] Start: 03-30-2022 End: 03-30-2022 Patient encounter procedure Tylor Davalos MD Work Phone: Radiation Oncology Comment on above: Rectal cancer (HCC) (Primary Dx); Post-op pain Start: 03-25-2022 Telephone encounter Rob Trotter Research Coordinator [facility] Provider Adult Comment on above: Research F/U Start: 03-23-2022 End: 03-23-2022 Patient encounter procedure Tylor Davalos MD Work Phone: Radiation Oncology Comment on above: Rectal cancer (HCC) (Primary Dx) Start: 03-18-2022 End: 03-18-2022 Patient encounter procedure Bouchra Thopmson APRN.CNP Work Phone: Colorectal Surgery Comment on above: Rectal cancer (HCC) (Primary Dx); Follow-up examination after colorectal surgery; Encounter for ostomy care education; Colostomy in place (HCC) Start: 03-18-2022 End: 03-18-2022 ambulatory Oscar Gonzalez MD Work Phone: Hematology/Oncology Comment on above: Rectosigmoid cancer (HCC) (Primary Dx) Start: 03-18-2022 End: 03-18-2022 Patient encounter procedure Oscar Gonzalez MD Work Phone: [place] Start: 03-16-2022 End: 03-16-2022 Patient encounter procedure Tylor Davalos MD Work Phone: Radiation Oncology Comment on above: Rectal cancer (HCC) (Primary Dx) Start: 03-15-2022 Telephone encounter Meghan Pichardo RN Work Phone: Hematology/Oncology Comment on above: Care Coordination (C 1D1 treatment follow up call) Disability Paperwork Start: 03-14-2022 Telephone encounter Oscar chávez MD Work Phone: Hematology/Oncology Comment on above: Patient Question Start: 03-11-2022 Telephone encounter Ana stover MD Work Phone: Colorectal Surgery Comment on above: Patient Question Start: 03-01-2022 End: 03-01-2022 ambulatory Meghan Pichardo RN Work Phone: Hematology/Oncology Comment on above: First Time Treatment Education Rectosigmoid cancer (HCC) (Primary Dx) Start: 03-01-2022 End: 03-01-2022 Patient encounter procedure [facility] Provider [facility] Department Start: 02-28-2022 Patient encounter procedure Tylor Davalos MD Work Phone: [place] Start: 02-28-2022 Radiation Oncology Note Tylor levin MD Work Phone: Radiation Oncology Comment on above: Simulation Note Treatment Planning Start: 02-28-2022 Telephone encounter Elodia Nixon RN NOC Comment on above: Follow Up (Gyant int eraction - F/U - attempt made. No answer. ) Start: 02-24-2022 Refill Betty Glass [facility] Work Phone: Hematology/Oncology Comment on above: Refill Request Start: 02-18-2022 Telephone encounter Jade Pascual RN Pre Anesthesia Comment on above: Pre-Op Update (Preop labs (ConABO) ) Medication Follow-up (capecitabine prior auth submitted) Refill Request Start: 02-17-2022 Telephone encounter Meghan Pichardo RN Work Phone: Hematology/Oncology Comment on above: Care Coordination (f ollow up, treatment plan) Start: 02-16-2022 End: 02-16-2022 ambulatory ANA ENRIQUEZ Facility:[facility] Start: 02-16-2022 Encounter for other preprocedural examination ANA ENRIQUEZ [facility] Start: 02-16-2022 End: 02-16-2022 Admission to establishment [address] Other Phone: [facility] Start: 02-16-2022 End: 02-16-2022 Drug abuse prevention management Pacc [address] Other Phone: Pre Anesthesia Comment on above: Pre-op exam (Primary Dx); Rectal mass; History of endocarditis; Severe tricuspid regurgitation; Abnormality of right ventricle of heart; History of intravenous drug abuse (HCC); Smoker Start: 02-16-2022 End: 02-16-2022 Preprocedural examination done Pacc [address] Other Phone: Pre Anesthesia Start: 02-11-2022 ambulatory Fariba Mosley LPN Radia tion Oncology Comment on above: Patient Education Start: 02-11-2022 End: 02-11-2022 Patient encounter procedure Tylor Davalos MD Work Phone: Radiation Oncology Comment on above: Rectal cancer (HCC) (Primary Dx) Start: 02-10-2022 Telephone encounter Ana stover MD Work Phone: Colorectal Surgery Comment on above: 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 Start: 02-07-2022 Telephone encounter Oscar chávez MD Work Phone: Hematology/Oncology Comment on above: Patient Update Start: 02-04-2022 Telephone encounter Ana stover MD Work Phone: Colorectal Surgery Comment on 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: 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 FMLA Paperwork Disability [place] Start: 02-04-2022 End: 02-04-2022 ambulatory Oscar Gonzalez MD Work Phone: Hematology/Oncology Comment on above: Rectosigmoid cancer (HCC) (Primary Dx) Start: 02-04-2022 End: 02-04-2022 Patient encounter procedure Oscar Gonzalez MD Work Phone: [place] Start: 02-03-2022 End: 02-03-2022 Subsequent hospital visit by physician Leroy Green (I-Stat/1.5t) Work Phone: Radiology Comment on above: Rectal mass [K62.89] Start: 01-18-2022 Telephone encounter Gissell Alvarez RN Hematology/Oncology Comment on above: Results Start: 11-29-2021 End: 11-30-2021 ambulatory SHAIKH Trey ADAM Facility:[facility] Start: 09-16-2021 End: 09-16-2021 ambulatory NONE LISTED REQUEST Facility:[facility] Start: 08-27-2021 End: 08-27-[address] NONE LISTED REQUEST Facility: Procedures Date Procedure Procedure Detail Performing Clinician Start: 04-27-2023 Lipid 1996 panel - S sp or Plasma Ana Enriquez MD Work Phone: Start: 02-09-2023 Antibody screen TYLOR NGUYEN Comment on above: Order Comment: Speci men Type: BLOOD SPECIMENOrdering Facility: [facility] Address: [address] [place] [address] Performed By: #### T [id number], %ALESIA ####[facility] BLOOD BANKCLIA [id number] [address]#### [id number] ####[facility] BLOOD BANKCLIA [id number] [address] [place] Start: 02-09-2023 Ecg routine ecg w/le ast 12 lds i&r only [facility] Provider Start: 01-31-2023 Radiologic exam colo n single contrast study Ana Enriquez MD Work Phone: Start: 11-07-2022 Antibody screen SHAIKH KIA Comment on above: Order Comment: Speci men Type: BLOOD SPECIMENOrdering Facility: [facility] Address: [address] [place] [address] Performed By: #### T SCR, [id number] ####[facility] BLOOD BANKCLIA [id number] [address] OF [place] Start: 10-28-2022 Antibody screen Pacc 2 Work Phone: Start: 10-28-2022 Antibody screen TYLOR ARREDONDO WENDY Comment on above: Order Comment: Speci men Type: BLOOD SPECIMENOrdering Facility: [facility] Address: [address] [id number] Performed By: #### % ALESIA, [id number], [id number] ####[facility] BLOOD BANKCLIA [id number] [address] Start: 10-13-2022 Sigmoidoscopy flx dx w/collj spec br/wa if pfrmd Ana Enriquez MD Work Phone: Start: 09-26-2022 Ct thorax w/contrast material Temi Dean PA-C Work Phone: Start: 09-26-2022 Creatinine [Mass/vol ume] in Serum or Plasma [facility] Provider Start: 08-26-2022 Blood count complete auto&auto difrntl wbc Oscar Gonzalez MD Work Phone: Start: 08-05-2022 Blood count complete auto&auto difrntl wbc Temi Dean PA-C Work Phone: Start: 06-24-2022 Blood count complete auto&auto difrntl wbc Oscar Gonzalez MD Work Phone: Start: 05-12-2022 Mri pelvis w/o & w/c ontrast material Oscar Gonzalez MD Work Phone: Start: 02-03-2022 Mri pelvis w/o & w/c ontrast material Alla Ramirez MD Work Phone: Plan of Treatment Date Care Activity Detail Author Start: 04-27-2028 Lipid 1996 panel - S sp or Plasma Lipid Screening [facility] Start: 04-27-2028 LIPID SCREEN LIPID SCREEN [facility] Start: 10-13-2027 COLORECTAL CANCER SCREENING COLORECTAL CANCER SCREENING [facility] Start: 10-13-2027 SIGMOIDOSCOPY [facility] Start: 02-21-2026 DIABETES SCREEN DIABETES SCREEN [facility] Start: 02-21-2026 Diabetes Screening Diabetes Screenin g [facility] Start: 02-09-2026 DIABETES SCREEN DIABETES SCREEN [facility] Start: 11-09-2025 DIABETES SCREEN DIABETES SCREEN [facility] Start: 10-28-2025 DIABETES SCREEN DIABETES SCREEN [facility] Start: 08-26-2025 DIABETES SCREEN DIABETES SCREEN [facility] Start: 08-05-2025 DIABETES SCREEN DIABETES SCREEN [facility] Start: 07-15-2025 DIABETES SCREEN DIABETES SCREEN [facility] Start: 06-24-2025 DIABETES SCREEN DIABETES SCREEN [facility] Start: 05-24-2025 DIABETES SCREEN DIABETES SCREEN [facility] Start: 04-12-2025 DIABETES SCREEN DIABETES SCREEN [facility] Start: 04-01-2025 DIABETES SCREEN DIABETES SCREEN [facility] Start: 03-18-2025 DIABETES SCREEN DIABETES SCREEN [facility] Start: 02-24-2025 DIABETES SCREEN DIABETES SCREEN [facility] Start: 02-22-2025 DIABETES SCREEN DIABETES SCREEN [facility] Start: 02-04-2025 DIABETES SCREEN DIABETES SCREEN [facility] Start: 2023 Shingrix Vaccine (1 of 2) Malin grix Vaccine (1 of 2) [facility] Start: 06-30-2023 Influenza vaccination [facility] Start: 01-30-2023 End: 04-01-2023 CBC W Auto Differential panel - Blood CBC + DIFF Lab Routine Encounter for follow-up surveillance of rectal cancer Acute post-operative pain Expected: 01/30/2023, Expires: 04/01/2023 [facility] Work Phone: Comment on above: Expected: 01/30/2023 , Expires: 04/01/2023 Start: 01-30-2023 End: 04-01-2023 Comprehensive metabolic 2000 panel - Serum or Plasma COMP METABOLIC PANEL Lab Routine Encounter for follow-up surveillance of rectal cancer Acute post-operative pain Expected: 01/30/2023, Expires: 04/01/2023 [facility] Work Phone: Comment on above: Expected: 01/30/2023 , Expires: 04/01/2023 Start: 01-30-2023 End: 04-01-2023 TYPE AND SCREEN,30 DAY TYPE AND SCREEN,30 DAY Blood Bank Routine Encounter for follow-up surveillance of rectal cancer Acute post-operative pain Expected: 01/30/2023, Expires: 04/01/2023 [facility] Work Phone: Comment on above: Expected: 01/30/2023 , Expires: 04/01/2023 Start: 10-30-2022 DEPRESSION ASSESSMENT DEPRESSION ASS ESSMENT [facility] Start: 09-23-2022 End: 11-23-2022 CBC W Auto Differential panel - Blood CBC + DIFF Lab Routine Malignant neoplasm of rectum (HCC) Lung nodules Expected: 09/23/2022 (Approximate), Expires: 11/23/2022 [facility] Work Phone: Comment on above: Expected: 09/23/2022 (Approximate), Expires: 11/23/2022 Start: 09-23-2022 End: 11-23-2022 Comprehensive metabolic 2000 panel - Serum or Plasma COMP METABOLIC PANEL Lab Routine Malignant neoplasm of rectum (HCC) Lung nodules Expected: 09/23/2022 (Approximate), Expires: 11/23/2022 [facility] Work Phone: Comment on above: Expected: 09/23/2022 (Approximate), Expires: 11/23/2022 Start: 08-26-2022 End: 10-26-2022 CBC W Auto Differential panel - Blood CBC + DIFF Lab Routine Rectal cancer (HCC) Expected: 08/26/2022 (Approximate), Expires: 10/26/2022 [facility] Work Phone: Comment on above: Expected: 08/26/2022 (Approximate), Expires: 10/26/2022 Start: 08-26-2022 End: 10-26-2022 Comprehensive metabolic 2000 panel - Serum or Plasma COMP METABOLIC PANEL Lab Routine Rectal cancer (HCC) Expected: 08/26/2022 (Approximate), Expires: 10/26/2022 [facility] Work Phone: Comment on above: Expected: 08/26/2022 (Approximate), Expires: 10/26/2022 Start: 07-15-2022 End: 09-14-2022 CBC W Auto Differential panel - Blood [facility] Work Phone: Comment on above: Expected: 07/15/2022 (Approximate), Expires: 09/14/2022 Expected: 07/15/2022 , Expires: 09/14/2022 Start: 07-15-2022 End: 09-14-2022 Comprehensive metabolic 2000 panel - Serum or Plasma [facility] Work Phone: Comment on above: Expected: 07/15/2022 (Approximate), Expires: 09/14/2022 Expected: 07/15/2022 , Expires: 09/14/2022 Start: 06-30-2022 Influenza vaccination [facility] Start: 05-24-2022 End: 07-24-2022 Carcinoembryonic Ag [Mass/volume] in Serum or Plasma CEA BLD Lab Routine Rectosigmoid cancer (HCC) Expected: 05/24/2022 (Approximate), Expires: 07/24/2022 [facility] Work Phone: Comment on above: Expected: 05/24/2022 (Approximate), Expires: 07/24/2022 Start: 05-24-2022 End: 07-24-2022 CBC W Auto Differential panel - Blood CBC + DIFF Lab Routine Rectosigmoid cancer (HCC) Expected: 05/24/2022 (Approximate), Expires: 07/24/2022 [facility] Work Phone: Comment on above: Expected: 05/24/2022 (Approximate), Expires: 07/24/2022 Start: 05-24-2022 End: 07-24-2022 Comprehensive metabolic 2000 panel - Serum or Plasma COMP METABOLIC PANEL Lab Routine Rectosigmoid cancer (HCC) Expected: 05/24/2022 (Approximate), Expires: 07/24/2022 [facility] Work Phone: Comment on above: Expected: 05/24/2022 (Approximate), Expires: 07/24/2022 Start: 05-17-2022 End: 05-12-2023 Mri pelvis w/o & w/contrast material MRI RECTUM WO/W IVCON Radiology Routine Malignant neoplasm of rectum (HCC) Expected: 05/17/2022, Expires: 05/12/2023 [facility] Work Phone: Comment on above: Expected: 05/17/2022 , Expires: 05/12/2023 Start: 04-01-2022 End: 06-01-2022 CBC W Auto Differential panel - Blood [facility] Work Phone: Comment on above: Expected: 04/01/2022 (Approximate), Expires: 06/01/2022 Expected: 04/01/2022 , Expires: 06/01/2022 Start: 04-01-2022 End: 06-01-2022 Comprehensive metabolic 2000 panel - Serum or Plasma [facility] Work Phone: Comment on above: Expected: 04/01/2022 (Approximate), Expires: 06/01/2022 Expected: 04/01/2022 , Expires: 06/01/2022 Start: 03-18-2022 End: 05-18-2022 CBC W Auto Differential panel - Blood CBC + DIFF Lab Routine Rectosigmoid cancer (HCC) Expected: 03/18/2022, Expires: 05/18/2022 [facility] Work Phone: Comment on above: Expected: 03/18/2022 , Expires: 05/18/2022 Start: 03-18-2022 End: 05-18-2022 Comprehensive metabolic 2000 panel - Serum or Plasma COMP METABOLIC PANEL Lab Routine Rectosigmoid cancer (HCC) Expected: 03/18/2022, Expires: 05/18/2022 [facility] Work Phone: Comment on above: Expected: 03/18/2022 , Expires: 05/18/2022 Start: 02-16-2022 End: 04-18-2022 CONFIRM BLOOD TYPE CONFIRM BLOOD TYPE Blood Bank Routine Pre-op exam Rectal mass Expected: 02/16/2022, Expires: 04/18/2022 [facility] Work Phone: Comment on above: Expected: 02/16/2022 , Expires: 04/18/2022 Start: 10-30-2021 DEPRESSION ASSESSMENT DEPRESSION ASS ESSMENT [facility] Start: 06-30-2021 Influenza vaccination INFLUENZA (#1) [facility] Start: 2018 COLOGUARD (FIT-DNA) COLOGUARD (FIT-D NA) [facility] Start: 2018 Colonoscopy COLONOSCOPY [facility] Start: 2018 COLORECTAL CANCER SCREENING COLORECTAL CANCER SCREENING [facility] Start: [address] COLONOGRAPHY [facility] Start: 2018 DIABETES SCREEN DIABETES SCREEN [facility] Start: 2018 FECAL OCCULT BLOOD FECAL OCCULT BLOO D [facility] Start: 2018 SIGMOIDOSCOPY SIGMOIDOSCOPY [facility] Start: 2008 LIPID SCREEN LIPID SCREEN [facility] Start: 1992 SHINGRIX VACCINE (1 of 2) MALIN GRIX VACCINE (1 of 2) [facility] Start: 1992 Urine microalbumin profile [facility] Start: 1991 ANNUAL PCP TEAM SCALE RECLAMATION TENDER JETT DISEASE VISIT ANNUAL PCP TEAM CHRONIC DISEASE VISIT [facility] Start: 1991 HEPATITIS C SCREENING HEPATITIS C SC REENING [facility] Start: 1991 HIV SCREENING HIV SCREENING [facility] Start: 1985 Adult depression scr eening assessment DEPRESSION SCREENING [facility] Start: 1985 COVID-19 VACCINE (1) COVID-19 VACCIN E (1) [facility] Start: 1979 PNEUMOCOCCAL (1 - PCV) PNEUMOCOCCAL (1 - PCV) [facility] Start: 1978 COVID-19 VACCINE (#1) COVID-19 VACCI NE (#1) [facility] Start: 1978 COVID-19 VACCINE (1) COVID-19 VACCIN E (1) [facility] Start: 01-10-1974 COVID-19 VACCINE (#1) COVID-19 VACCI NE (#1) [facility] Start: 1973 HEPATITIS B (1 of 3 - 3-dose series) HEPATITIS B (1 of 3 - 3-dose series) [facility] Start: 1973 Hepatitis B Vaccine (1 of 3 - 3-dose series) Hepatitis B Vaccine (1 of 3 - 3-dose series) [facility] End: 11-03-2023 Ct abdomen & pelvis w/contrast material CT ABD/PEL W IVCON Radiology Routine Malignant neoplasm of rectum (HCC) 1 Occurrences starting 10/04/2022 until 11/03/2023 [facility] Work Phone: Comment on above: 1 Occurrences starti ng 10/04/2022 until 11/03/2023 End: 09-25-2023 CT CHEST W IVCON CT CHEST W IVCON Radiology Routine Lung nodules 1 Occurrences starting 08/26/2022 until 09/25/2023 [facility] Work Phone: Comment on above: 1 Occurrences starti ng 08/26/2022 until 09/25/2023 ECG COMPLETE ECG COMPLETE ECG 02/09/2023 1:57 PM EDT [facility] End: 09-25-2023 Mri pelvis w/o & w/contrast material MRI RECTUM WO/W IVCON Radiology Routine Malignant neoplasm of rectum (HCC) 1 Occurrences starting 08/26/2022 until 09/25/2023 [facility] Work Phone: Comment on above: 1 Occurrences starti ng 08/26/2022 until 09/25/2023 End: 02-16-2024 Radiologic exam colon single contrast study XR COLON SINGLE CONTRAST Radiology Routine Encounter for follow-up surveillance of rectal cancer Acute post-operative pain 1 Occurrences starting 01/17/2023 until 02/16/2024 [facility] Work Phone: Comment on above: 1 Occurrences starti ng 01/17/2023 until 02/16/2024 End: 05-24-2023 SIGMOIDOSCOPY SIGMOIDOSCOPY Endoscopy Routine Follow-up examination after colorectal surgery Rectal cancer (HCC) 1 Occurrences starting 05/25/2022 until 05/24/2023 [facility] Work Phone: Comment on above: 1 Occurrences starti ng 05/25/2022 until 05/24/2023 [facility] Immunizations Immunization Date Immunization Notes Care Provider Fa santa 12-01-2018 influenza, injectabl e, quadrivalent, contains preservative Ana Enriquez MD Work Phone: [facility] 12-01-2018 influenza virus vacc ine, unspecified formulation Ana Enriquez MD Work Phone: [facility] Payers Date Payer Category Payer Unknown [employer] PPO [id number] 2021-Present [phone] [place] [address] PPO [id number] 2021 Unknown [employer] PPO [id number] 2021-Present [id number] [place] [id number] PPO [id number] 2019 Medicaid MEDICAID [place] GENERIC MEDICAID [place] GENERIC [id number] 2019-Present [address] [place] [address] Medicaid [id number] 2019 Unknown [id number] 1973 Unknown [id number] 1973 Unknown [id number] 1973 Unknown [id number] 1973 Unknown [id number] 1973 Unknown [id number] 1973 Unknown [id number] 1959 Self-pay [id number] 1959 Unknown [id number] Social History Date Type Detail Facility Start: 12-29-2021 End: 08-05-2022 Tobacco smoking status VAIS Smokes tobacco daily [facility] Start: 12-29-2021 End: 08-05-2022 Tobacco use and exposure Smokeless tobacco non-user [facility] Start: 01-18-2022 End: 10-05-2022 Alcohol intake Current drinker of alcohol (finding) [facility] Start: 01-17-2022 History SDOH Alcohol Comment 2 drinks/week; heavy in psat [facility] Start: 1975 Sex Assigned At Not on file [facility] Start: 01-10-2022 End: 09-26-2022 Exposure to SARS-CoV-2 (event) Not sure [facility] Start: 12-29-2021 End: 03-17-2022 Cigarettes smoked current (pack per day) - Reported 0.5 [facility] Start: 02-16-2022 History SDOH Alcohol Comment 2 drinks/week; heavy in past [facility] End: 10-30-2022 History of tobacco use Cigarette Smoker [facility] Work Phone: Start: 10-28-2022 Tobacco Comment Less than half a pac k [facility] Start: 01-17-2023 Tobacco smoking stat us VAIS Ex-smoker [facility] End: 10-30-2022 History of tobacco use Current smoker [facility] Start: 01-17-2023 End: 02-09-2023 Alcohol intake Ex-drinker (finding) [facility] Start: 02-21-2023 History SDOH Financial 5 [facility] Start: 02-21-2023 History SDOH Food Worry 1 [facility] Start: 02-21-2023 History SDOH Transpo rt Med 2 [facility] Start: 03-17-2022 End: 02-09-2023 Tobacco use panel [facility] How hard is it for y ou to pay for the very basics like food, housing, medical care, and heating Not hard at all [facility] (I/We) worried wheth er (my/our) food would run out before (I/we) got money to buy more. Never true [facility] In the past 12 month s, was there a time when you were not able to pay the mortgage or rent on time? No [facility] Clinical Notes 01-18-2022 to 06-02-2023 Telephone Encounter - Anthony Caraballo RN - 06/02/2023 12:32 PM EDTTelephone Encounter - Ketty Padilla - 06/02/2023 10:48 AM EDTTelephone Encounter - Catalina Muhammad - 03/02/2023 1:59 PM EDT Note Date & Type Note Facility 06-02-2023 Miscellaneous Notes Returned call. No answer. Left voice message informing her that if Hoang has a bulge at his old stoma site, it could be a hernia. He would need to come back to the office to be examined by Dr Enriquez. If he is having nausea, vomiting, not passing stool and has excruciating pain, he will need to go to the nearest emergency room to be examined. She will call the office to schedule an appointment or discuss symptoms further. Patient called in and he is having discomfort at the stoma site(bulge). Patient had a reversal with Dr. Enriquez on 02/20/23. Contact# [phone] documented in this encounter [facility] 03-02-2023 Miscellaneous Notes Summary: Research Follow Up GUARDIESTEFANY IRB# [id number] IRB # [id number] Tight perioperative blood pressure management to reduce serious cardiovascular, renal, and cognitive complications: The GUARDIAN trial PI: Mary Solorio MD, LUCIA, CHLOÉ. Outcomes Research Department. [facility] [place]. [facility]. This is a research study note. Patient assessments recorded here should not guide either clinical care or clinical decision-making. I called the patient, Hoang White, today regarding follow-up for the study IRB [id number] Tight Perioperative Blood pressure Management to Reduce Serious Cardiovascular, renal, and Cognitive Complications (GUARDIAN) Trial. The patient refused to answer any questions. Catalina Muhammad Research Scheduler Maintenance Outcomes Research [facility] documented in this encounter [facility] 02-28-2023 Miscellaneous Notes Summary: Research Follow Up GUARDIESTEFANY IRB# [id number] IRB # [id number] Tight perioperative blood pressure management to reduce serious cardiovascular, renal, and cognitive complications: The GUARDIAN trial PI: Mary Solorio MD, LUCIA, CHLOÉ. Outcomes Research Department. [facility] [place]. [facility]. This is a research study note. Patient assessments recorded here should not guide either clinical care or clinical decision-making. Hoang White was unavailable at the listed phone number. A voice message was left. We will attempt to contact the patient again at a later date. Catalina Muhammad Research Scheduler Maintenance Outcomes Research [facility] documented in this encounter [facility] 02-28-2023 Miscellaneous Notes PATIENT INFORMATION Record ID: [id number] [facility] [place]: [facility] [place] Attending: Ana Enriquez Center: Colorectal Surgery INSTRUCTIONS Continue with script and ensure patient has appropriate number for [facility] or Appointment Center according to discharging physician s specialty and location at end of call All Clear SURVEY INFORMATION Medical/Nurse Scheduler Maintenance: Karime Joyner 1. Your discharge instructions are important in guiding you through the recovery process. Is there anything I could help you clarify on your discharge instructions? (Standard Question) No, no clarification needed 2. We encourage a follow up appointment with your physician. Do you have one scheduled? If not; What is the name of the doctor you should be seeing for your follow-up care? (Standard Question) No, patient prefers to schedule in own time MA/SN Notes: needing to reschedule apt 3. Many patients have concerns about their medications once they are home. Do you have any questions about getting or taking your medications? (Standard Question) No 4. Do you have any new or worsening symptoms? (Standard Question) No documented in this encounter [facility] 02-27-2023 Miscellaneous Notes Pt is aware he will need to see Dr Enriquez. He denies any further needs at this time. Oumar Baum RN I would recommed that he sees Dr. Enriquez Pt called and stated that he has to go back to see Dr. Enriquez on March 03 for her to check his stoma closure site. He was wondering if he would be able to come here instead to have it checked because its an hour drive for him and he does not have the means or a ride to get there. He does not have any stitches that need removed and just needs someone to say its not infected and looks good. He is willing to see an wash and greaser for this. Ava Lewis documented in this encounter [facility] 02-22-2023 Note HNO ID: [id number] Author: Jose Zamora MD Service: Colorectal Author Type: Resident Type: Progress Notes Filed: 02/22/2023 11:04 AM Note Text: PROGRESS NOTES - SURGICAL SERVICES Hoang White [id number] ASSESSMENT/PLAN: Hoang White is a 47 year old male with PMHx endocarditis, hypothyroidism, rectal cancer s/p LAR with DLI who is now s/p ileostomy closure 02/21. Clinically and HD stable with return of bowel function Plan: Neuro: Multimodal pain control. Home bupropion Cardiac: Monitor vitals. Home meds: Lipitor Respiratory: Incentive spirometry. Minimize use of supplemental O2. GI: Diet: GIS. Antiemetic available. :monitor urine output . I/Os. FEN: HLIV. Electrolytes replete as needed. ID: periop abx completed Heme: No clinical evidence of bleeding. Endo: Levothyroxine. Lines/Drains: PIV Prophylaxis: IPCs, lovenox Dispo: DC today Plan discussed with Attending, Dr. Zoe Zamora MD PGY-3 General Surgery Surgery Blue Team [phone] weekdays. Or [phone] weeknights (6pm - 6am) and weekends. SUBJECTIVE Pain is well controlled on current regimen. Ambulating well. Tolerated GIS with no n/v Passing flatus, having BM. BM are no longer bloody OBJECTIVE PHYSICAL EXAM: BP 119/72 Pulse 71 Temp (Src) 98.2 (Oral) Resp 17 Ht 5' 8 (1.73m) Wt 135 lb (61.2kg) SpO2 98% BMI 20.53 kg/(m2). O2 Therapy: Room Air GENERAL: awake, alert, no distress, cooperative SKIN: Skin color, texture, turgor normal. CARDIAC: Regular rate and rhythm, extremities warm and well perfused LUNGS: Non-labored breathing, no shortness of breath ABDOMEN: soft, appropriately tender, non-distended, Incisions c/d/i no surrounding erythema. Prior ostomy site not bleeding DATA: Date 02/21/23 07 - 02/22/23 0659 02/22/23 07 - 02/23/23 0659 Shift 3476-3407 3152-7132 9425-0182 24 Hour Total 8839-8459 2244-4947 0773-6871 24 Hour Total INTAKE PO 900 096 8220 PO 941 274 1606 IV 800 800 Volume (mL) (lactated ringers iv infusion) 800 800 Shift Total 2746 114 1690 OUTPUT Urine 310 769 5413 Void (ml) 913 873 5465 # of BMs Stool Incontinence 1 x 1 x Number of BMs 2 x 2 x 1 x 5 x Stool 400 400 Liquid BM (mL) 400 400 Shift Total 700 1150 1850 Weight (kg) 61.2 61.2 61.2 61.2 61.2 61.2 61.2 61.2 Diagnostic tests reviewed for today's visit: Most recent labs and imaging results. CBC, Coags, BMP, Mg, Phos Recent Labs 02/21/23 2158 02/21/23 0200 WBC 7.42 9.53 HB 11.2* 12.2* HCT 32.2* 35.6* PLT 167 208 NA 141 139 K 4.2 4.1 CHLOR 106* 104 CO2 24 24 BUN 13 13 CREAT 0.89 0.71* GLUC 96 132* CA 9.3 9.1 [facility] 02-21-2023 Note HNO ID: [id number] Author: Indira Jacob RN Service: Care Management Author Type: Registered Nurse Type: Care Mgt Initial Assessment Filed: 02/21/2023 11:01 AM Note Text: CARE MANAGEMENT: ASSESSMENT AND DISCHARGE PLAN SERVICE DATE: February 21, 2023 SERVICE TIME: 11:00am PCP: Shaikh Kia MD Primary Contact: Extended Emergency Contact Information Primary Emergency Contact: Mounika,Elsa Mobile Relation: Significant other Admission Status: Inpatient Insurance Provider: [facility] PPO Discharge Planning requested by: Per Department Practice Potential Transition Plans Home Advance Directives Current Advance Directive: None Needle Punch Operator Attempted to Assist with AD Completion: Yes Action: Patient Unwilling Current Living Arrangements and Support Lives with: Spouse/significant other Type of Residence: Private Residence (Apartment or Condo) Support: Spouse/significant other How do you manage to accomplish the following: Independent: Ambulation;Bathe/Shower;Dress;Meal s/Meal Prep;Going to the bathroom;Medication Management;Transportation to appointments/community Current Services/Equipment Current Post-Acute Service(s): None Discharge Planning Patient Goal(s): General wellness [place] of Choice Explained: [place] of Choice Given: No Reason Not Given: No placements necessary Are you interested in bedside delivery of your medications? No Discharge Planning Participant(s): Patient/Family Comments: Caregiver Assessment: Caregiver is ready, willing and able to meet the patient's needs as recommended by the inter-professional team: No Caregiver needed Transport at Discharge: Transportation Arrangements: Car Needs Prior to Discharge: Needs Prior to Discharge: None Post-Acute Discharge Plan: POD 1 ostomy reversal. 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 No skilled needs noted. CM will continue to follow as needed. SIGNATURE: Indira Jacob RN PATIENT NAME: Hoang White DATE: February 21, 2023 TIME: 11:00 AM CONTACT #: [phone] [facility] 02-21-2023 Note HNO ID: [id number] Author: Cherelle Ellis MD Service: Colorectal Author Type: Resident Type: Progress Notes Filed: 02/21/2023 9:06 AM Note Text: Attestation signed by Ana Enriquez MD at 02/21/2023 5:31 PM [facility] STAFF PHYSICIAN NOTE OF PERSONAL INVOLVEMENT IN CARE I have reviewed the history and physical exam obtained and documented by the resident and I personally participated in the rubin components. I have confirmed and edited as necessary, the PFSH and ROS obtained by others. I have discussed the case and management of the patient's care. Ana Enriquez MD Date of Service: February 21, 2023 COLORECTAL SURGERY PROGRESS NOTE Hoang Estrada [id number] ASSESSMENT AND PLAN Hoang White is a 47 year old male with PMHx endocarditis, hypothyroidism, rectal cancer s/p LAR with DLI who is now s/p ileostomy closure 02/21 Plan Multimodal pain control Advance to clears Home: levothyroxine DVT prophylaxis PM DC Patient Active Hospital Problem List: Attention to ileostomy (HCC) (02/20/2023) SUBJECTIVE: No acute events overnight. Pain moderately controlled. Endorsing bloody output from below No gas OBJECTIVE: BP 116/63 Pulse 63 Temp 36.7 ?C (98.1 ?F) (Oral) Resp 17 Ht 172.7 cm (5' 8 ) Wt 61.2 kg (135 lb) SpO2 95% BMI 20.53 kg/m? Body mass index is 20.53 kg/m?. GENERAL: Alert and oriented, no acute distress, cooperative. LUNGS: Non labored breathing ABDOMEN: soft, appropriately tender, non distended. WOUND: clean, dry and intact Labs: CBC, Coags, BMP, Mg, Phos Recent Labs 02/21/23 0200 WBC 9.53 HB 12.2* HCT 35.6* PLT 208 NA 139 K 4.1 CHLOR 104 CO2 24 BUN 13 CREAT 0.71* GLUC 132* CA 9.1 Liver Function, Amylase, AND Lipase I/O past 24h: Intake/Output Summary (Last 24 hours) at 02/21/2023 0630 Last data filed at 02/20/2023 2200 Gross per 24 hour Intake 1800 ml Output 420 ml Net 1380 ml LDA: Lines, Drains, and Airways Line Duration Peripheral 02/20/23 1713 Left Wrist 20 Gauge <1 day Peripheral 02/20/23 1846 Assessment Right Hand 20 Gauge <1 day Peripheral 02/21/23 0200 Right Forearm 18 Gauge <1 day Drain Duration Small Bowel Ostomy 11/07/22 LLQ 105 days SURGERY/PROCEDURE: Procedure(s) and Anesthesia Type: * CLOSURE ILEOSTOMY - General [facility] 02-21-2023 Note HNO ID: [id number] Author: Grant Colbert MD Service: Colorectal Author Type: Resident Type: Plan of Care Filed: 02/21/2023 3:44 AM Note Text: PLAN OF CARE Hoang White [id number] This is a 47 year old male with a history of rectal ca s/p lap diverting colostomy, ISAÍAS, robotic colostomy takedown, LAR, DLI who is now #POD 0 s/p ileostomy takedown. Paged regarding ~100cc yoon red blood with small clots from rectum when patient was passing flatus. Current BP was 142/79, HR 64. Patient denies dizziness, chest pain or shortness of breath. - Repeat Hb stable at 12.2 - Telemetry to monitor HR - CORS will continue to follow Grant Colbert MD Colorectal surgery Surgery Blue Team [phone]. Or [phone] weeknights (6pm - 6am) and weekends. [facility] 02-20-2023 Note HNO ID: [id number] Author: Grant Colbert MD Service: Colorectal Author Type: Resident Type: Plan of Care Filed: 02/20/2023 9:28 PM Note Text: Surgery Post-Op Check Name: Hoang White POD 0 s/p ileostomy closure SUBJECTIVE: -Patient doing well -Pain well-controlled -Denies fevers, chills, chest pain, shortness of breath -Has nausea, but denies vomiting OBJECTIVE: BP 146/78 Pulse (!) 55 Temp 36.8 ?C (98.2 ?F) (Oral) Resp 16 SpO2 97% Intake/Output Summary (Last 24 hours) at 02/20/20232126 Last data filed at 02/20/20231999 Gross per 24 hour Intake 1800 ml Output 20 ml Net 1780 ml General: Patient not in acute distress, is resting comfortably on exam, and is pleasant and cooperative. Is alert and oriented x3. Abdomen: soft, appropriately tender, non distended. Dressing clean, dry, intact. Chest: Non-labored, symmetrical respirations. Clear to auscultation bilaterally. CVS: S1+S2 with no added cardiac sounds. ASSESSMENT/PLAN: Pain appropriately managed on current regimen. -Continue routine post-op care -Antiemetic medication prn Grant Colbert MD PGY-1 Surgery Blue Team [phone] . Or [phone] weeknights (6pm - 6am) and weekends. [facility] 02-20-2023 Note HNO ID: [id number] Author: Pedro Luis Rome DO Service: Anesthesiology Author Type: Anesthesiologist Type: Anesthesia Procedure Notes Filed: 02/20/2023 9:02 PM Note Text: ANESTHESIOLOGY PROCEDURE NOTE Peripheral Nerve Block General Information Procedure Start Time/Medication Administration: 02/20/2023 5:34 PM Procedure End time: 02/20/2023 5:40 PM Patient location during procedure: OR Timeout Performed Pre-procedure: timeout performed Consent Obtained: Yes Patient identity confirmed: arm band and patient Reason for block: post-op pain management/at surgeon's request Staffing Anesthesiologist: Pedro Luis Rome DO Performed by: anesthesiologist Preparation Sterility Preparation: hand hygiene performed prior to procedure, sterile gloves, drapes, and procedure tray, surgical cap used, mask used, sterile drape used during line insertion, skin prep agent completely dried prior to procedure Sterility Technique Not Completely Performed Due to Extreme Emergency: No Site Prep: Chloraprep Pre-Procedure Neuro Exam Location: ABDOMEN Sensory: intact Motor: intact Procedure Details Patient Position: supine Monitoring: Pulse OX, EKG and NIBP Block Type Trunk: TAP block Approach: anterior Laterality: bilateral Injection Technique: single-shot Ultrasound Guided: Yes Image in Chart: yes Local Infiltration: Yes Needle Needle Type: stimulating Needle Gauge: 22 G Needle Length: 100 mmNo Assessment Injection assessment: negative aspiration, no paresthesia on injection, incremental injection and local visualized surrounding nerve on ultrasound Post-Procedure Neuro Exam Expected regional anesthesia: under ga. Medications Administered Bupivacaine (PF) 0.25 % (2.5 mg/mL) injection (SENSORCAINE MPF), 40 mL bupivacaine liposome (PF) 1.3 % (13.3 mg/mL) injection (EXPAREL), 266 mg Comments 10 cc of 0.25% bupivacaine and 5 cc of experal used in each injection 4 quadrant tap block SIGNATURE: Pedro Luis Rome DO PATIENT NAME: Hoang White DATE: February 20, 2023 TIME: 9:01 PM CSN: [id number] [facility] 02-20-2023 Note HNO ID: [id number] Author: Kimberli Blas APRN.PIPE ORGAN MECHANIC Service: Anesthesiology Author Type: Nurse Manager Professional Development Type: Anesthesia Procedure Notes Filed: 02/20/2023 5:53 PM Note Text: ANESTHESIOLOGY PROCEDURE NOTE PIV General Information Procedure Start Time/Medication Administration: 02/20/2023 5:53 PM Patient Location: OR Staffing PIPE ORGAN MECHANIC: Kimberli Blas APRN.PIPE ORGAN MECHANIC Performed by: LILI Preparation Sterility Preparation: hand hygiene performed prior to procedure, surgical cap used, mask used, skin prep agent completely dried prior to procedure Site Prep: chlorhexidine Procedure Details Indication: need for IV access Needle Size/Type: 20 gauge angiocath Orientation: Right Location: Wrist Imaging Guidance Used: No SIGNATURE: Kimberli Blas APRN.CRNA PATIENT NAME: Hoang White DATE: February 20, 2023 TIME: 5:53 PM CSN: [id number] [facility] 02-20-2023 Note HNO ID: [id number] Author: Kimberli Blas APRN.PIPE ORGAN MECHANIC Service: Anesthesiology Author Type: Nurse Manager Professional Development Type: Anesthesia Procedure Notes Filed: 02/20/2023 5:53 PM Note Text: ANESTHESIOLOGY PROCEDURE NOTE Airway General Information Procedure Start Time/Medication Administration: 02/20/2023 5:29 PM Patient location during procedure: OR Patient identity confirmed: arm band, care hospitality team member and patient Staffing PIPE ORGAN MECHANIC: Kimberli Blas APRN.PIPE ORGAN MECHANIC Performed by: LILI Indications and Patient Condition Indications for airway management: anesthesia Preoxygenated: yes anesthesia circuit Patient position: sniffing Method: asleep Difficult Mask: No Final Airway Details Final airway type: endotracheal airway Final Endotracheal Airway: ETT Cuffed: yes Successful intubation technique: direct laryngoscopy Endotracheal tube insertion site: oral Blade: Al Blade size: #4 ETT size (mm): 7.5 Measured from: lips Measurement (cm): 21 Placement verified by: chest auscultation and capnometry Cormack-Lehane Classification: grade I - full view of glottis Number of attempts at approach: 1 Airway not difficult SIGNATURE: Kimberli Blas APRN.CRNA PATIENT NAME: Hoang White DATE: February 20, 2023 TIME: 5:53 PM CSN: [id number] [facility] 02-17-2023 Miscellaneous Notes Pt called about FMLA paperwork from 01/09/23 to 02/17/23. I left a message with his spouse that he will need to contact his primary so they can fill out the FMLA paperwork. He was given FMLA paperwork for his surgery in October. documented in this encounter [facility] 02-16-2023 Miscellaneous Notes Employer Forms for Patient/Caregiver Time Off of Work FMLA completed, signed by provider, and returned to below contact. 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 02-09-2023 History and physical note HISTORY AND PHYSICAL EXAMINATION SERVICE DATE: 02/09/2023 SERVICE TIME: 1:40 PM PRIMARY CARE PHYSICIAN: Shaikh Kia MD REASON FOR VISIT: Hoang White is a 47 year old male who is scheduled for Procedure(s) (LRB): CLOSURE ILEOSTOMY (N/A) at the request of Dr. Ana Enriquez for consultation. My final recommendation will be communicated back to the requesting physician by way of shared medical record or letter. Subjective CHIEF COMPLAINT: surgery HPI: Pt. presenting with history of rectal cancer s/p loop sigmoid Colostomy 02/21/2022, neoadjuvant therapy and radiation and robotic proctectomy 11/07/2022 that is recommended for surgery. Pt. denies any pain or s/sx of bleeding. PAST MEDICAL HISTORY Diagnosis Date Adenocarcinoma of colon (HCC) Endocarditis 2003 Hypothyroidism Mass of colon [address] Jaquez PAST SURGICAL HISTORY Procedure Laterality Date COLONSCOPY SCREENING HIGH RISK 2022 COLOSTOMY 02/21/2022 Laparoscopic Divided End Loop Sigmoid Colostomy EGD PAST SURGICAL HISTORY OF Right 2012 inguinal PAST SURGICAL HISTORY OF 2019 teeth pullled out PAST SURGICAL HISTORY OF 11/07/2022 colostomy takedown, robotic low anterior resection, flexible sigmoidoscopy, diverting loop ileostomy FAMILY HISTORY Problem Relation Age of Onset Breast Cancer Sister Colon Cancer Maternal Grandfather SOCIAL HISTORY: Social History Tobacco Use Smoking status: Former Packs/day: 0.50 Years: 25.00 Pack years: 12.50 Types: Cigarettes Quit date: 10/30/2022 Years since quittin.2 Smokeless tobacco: Never Tobacco comments: Less than half a pack Vaping Use Vaping Use: Never used Substance Use Topics Alcohol use: Not Currently Comment: 2 drinks/week; heavy in past Drug use: Not Currently Types: IV Comment: Past drug use of herorin MEDICATIONS: Prior to Admission medications as of 02/09/23 1423 Medication Sig Last Dose Taking naproxen sodium (ALEVE) 220 mg cap Take by mouth as needed. Taking Yes ibuprofen (MOTRIN) 200 mg tablet Take 200 mg by mouth every 6 hours as needed for pain. Taking Yes buprenorphine-naloxone (SUBOXONE) 8-2 mg film DISSOLVE 2 (TWO) films UNDER THE TONGUE DAILY Yes loperamide (IMODIUM) 2 mg cap(s) Take 1 capsule by mouth twice daily before meals (0600/1600). Taking Yes buPROPion XL (WELLBUTRIN XL) 300 mg 24 hr tablet Take 1 tablet by mouth once daily. Take wellbutrin 150 mg tablet daily for 5 days before starting 300 mg dose daily Taking Yes prochlorperazine (COMPAZINE) 10 mg tablet Take 1 tablet by mouth every 6 hours as needed. Taking Yes nicotine (NICODERM) 21 mg/24 hr Apply 1 Patch as directed every 24 hours. Taking Yes ondansetron (ZOFRAN) 8 mg tablet Take 1 tablet by mouth every 8 hours as needed for nausea/vomiting. Taking Yes loratadine (CLARITIN) 10 mg tablet Take 10 mg by mouth once daily. Taking Yes atorvastatin (LIPITOR) 10 mg tablet Take 10 mg by mouth once daily. Taking Yes acetaminophen (TYLENOL) 500 mg tablet Take 2 tablets by mouth every 6 hours. Taking Yes levothyroxine (SYNTHROID) 125 mcg tablet Take 125 mcg by mouth once daily. Taking Yes iv contrast (will be provided with radiology test) CT ABD/PEL -Inject, intravenously, once for 1 dose.No IV access, insert saline lock prior to the beginning of sedation, infusion, injection of imaging exam. Discontinue saline lock post exam. If Pt. has a central line or IVAD, may access for administration according to line specific nursing protocol. Once exam is complete flush line and de-access according to line specific nursing protocol in the CT contrast administration guidelines link. enteric contrast (will be provided with radiology test) For CT ABD/PEL W IVCON Routine order Administer, As Directed One Time Only, via Oral, Rectal, both Oral and Rectal, Enteric Tube, Stoma or Indwelling Catheter, Enteric Contrast as designated per enteric contrast guidelines lactobacillus rhamnosus (CULTURELLE) 10 billion cell capsule Take 1 capsule by mouth once daily. No medication comments found. CURRENT ALLERGIES: ALLERGIES No Known Allergies COVID VACCINATION STATUS: Not vaccinated REVIEW OF SYSTEMS: PAIN ASSESSMENT: Pain Pain Level: 3 Pain Location: Abdomen-Left Lower Quadrant Description: Burning Frequency: Continuous Intervention/Comfort measure: Medication General: No weight loss, malaise or fevers. Neuro: No history of TIA's, stroke, VP REVENUE CYCLE tumor, impaired sensorium, hemiplegia, paraplegia or quadraplegia. No neurological symptoms or problems. Respiratory: No history of current cough or dyspnea, or pneumonia in the past 6 weeks. (+) former smoker, Hx asthma ( childhood) Cardiovascular: Negative for CAD, Chest Pain(+) Hx DVT, endocarditis( >15 years ago), TR GI: See HPI : No history of dysuria, frequency or incontinence,, stones or chronic kidney disease Endocrine: Hypothyroidism Hematology: No history of bleeding or clotting disorder. Pt is not taking anti-coagulation or platelet medications. No history of hematological symptoms or problems. Oncology: See HPI Psych: Anxiety, Depression Musculoskeletal: Negative for joint pain or swelling, back pain or muscle pain. Skin: Negative for lesions, rash and itching. Objective PHYSICAL EXAM: VITALS: BP 130/67 Pulse 78 Temp (Src) 97 (Temporal Artery) Resp 16 Ht 5' 8 (1.73m) Wt 135 lb (61.2kg) SpO2 99% BMI 20.53 kg/(m^2). General: Alert and oriented, No acute distress, Healthy appearance Skin: Normal color, no rash, no lesions. HEENT: EOM, pupils equal, round and reactive. Oropharynx clear. Neck Supple Cardiovascular: Normal S1 & S2, 3/6 SHANTANU at LSB, no rubs or gallops. No JVD. Pulse regular. Lungs: Normal breath sounds, no wheezes or crackles., No chest deformities or chest wall tenderness. Abdomen: Soft, non-tender, no rigidity., No masses or organomegaly. , except ileostomy- detailed deferred to surgeon Extremities: No deformity, no edema or tenderness, no joint swelling or clubbing. Neurological: Normal cognition and motor skills. Gait normal. No weakness or sensory deficit. Pulses: Carotid and radial pulses normal +2. Diagnostic tests reviewed for today's visit: Lab Value Units Date High Low HB 12.1 g/dL 11/09/2022 17.0 13.0 HCT 35.0 % 11/09/2022 51.0 39.0 WBC 9.66 k/uL 11/09/2022 11.00 3.70 PLT 167 k/uL 11/09/2022 400 150 NA 140 mmol/L 11/09/2022 144 136 K 4.2 mmol/L 11/09/2022 5.1 3.7 GLUC 98 mg/dL 11/09/2022 99 74 BUN 14 mg/dL 11/09/2022 24 9 CREAT 0.82 mg/dL 11/09/2022 1.22 0.73 CREAT 1.00 mg/dL 09/26/2022 1.4 0.7 PTSEC No results within date range. INR No results within date range. APTT No results within date range. ALT 28 U/L 10/28/2022 54 10 AST 34 U/L 10/28/2022 40 14 TBILI 0.6 mg/dL 10/28/2022 1.3 0.2 TSH No results within date range. Lab Value Units Date High Low HCGQT No results within date range. UHCG No results within date range. HCG, BODY* No results within date range. Lab Value Units Date High Low ABORHD No results within date range. ABSCREEN No results within date range. No results found for: HBA1C CONABO completed 02/18/2022 Recent Results (from the past 8760 hour(s)) ECG COMPLETE Collection Time: 02/09/23 1:57 PM Result Value Ventricular Rate 71 Atrial Rate 71 P-R Interval 172 QRS Duration 124 QT Interval 400 QTC Calculation (Bazett) 434 Calculated P [place] 60 Calculated R [place] 127 Calculated T [place] 9 Impression NORMAL SINUS RHYTHM RIGHT AXIS DEVIATION NONSPECIFIC INTRAVENTRICULAR CONDUCTION DELAY ABNORMAL ECG Recent Results (from the past 70657 hour(s)) ECHO Collection Time: 01/17/22 1:15 PM Impression CONCLUSIONS: - Exam indication: Murmur - The left ventricle is normal in size. Left ventricular systolic function is normal. EF = 60 5% (2D biplane) Normal left ventricular diastolic function. Normal left atrial size. - Severe right atrial and ventricular dilatation. Right ventricular systolic function is normal including normal RV global strain (-24.0%). - Severe tricuspid regurgitation with hepatic vein systolic reversal. Leaflets thickened without obvious active vegetation. - Diastolic flattening of interventricular septum consistent with RV volume overload. - RVOT AT suggests normal mean PA pressures. - The patient has not had a prior CC echocardiographic exam for comparison. * * * Final * * * Assessment/Plan History of endocarditis Assessment: History of Endocarditis > 15 years ago; Hx IV drug use denies any other episodes Severe tricuspid regurgitation Assessment: Severe Tricuspid Regurgitation per 01/17/2022 ECHO, including RV dilation; RVSP 32 mmHg. Follows with Cardiology per last Office Visit: He should proceed without further diagnostic work-up from a cardiovascular perspective at this time but I will see him closely after resection and decision making on treatment of his colon cancer and proceed in terms of further evaluation/treatment, possibly surgical opinion afterward in 4 months. He understood the risks/benefits and agreed with the plan. Pt. currently is Asymptomatic Former smoker Assessment: former cigarette smoker for 25 years; quit 10/2022 wears nicotine patch History of intravenous drug abuse (HCC) Assessment: Sober for 7 years Has Suboxone, is weaning off it ; takes every 2-3 days Hypothyroidism unspecified Assessment: Managed with med, stable. DVT (deep venous thrombosis) (HCC) Assessment: Hx of, remote anticoagulated Denies recent episodes METS: Climb a flight of stairs or walk up a hill (5.50 METs) Participate in moderate recreational activities, such as golf, bowling, dancing, doubles tennis, or throwing a baseball or football (6.00 METs) Patient denies any chest pain or undue shortness of breath with the above physical activity. ASA Class: 3 ANESTHESIA FINDINGS: Intubation History: No history of difficult intubation Significant Anesthesia Considerations: None Pt. takes Suboxone every 2-3 days. He is requesting no Suboxone during Hospital stay. Airway Exam: General: Normal appearance Mallampati Score is CLASS II ULBT: Unable to perform Neck: Normal appearance and function, Distance from hyoid to mentum during neck extension is at least 3 finger breaths Mouth: Normal tongue size and Mouth opening greater than 2 finger breaths Dentition: Upper denture and Partial Airway History: No abnormal airway history STOP BANG Score: Criteria: Male gender Score = 1 PLAN This patient is optimally prepared for surgery. CONSULTS: Patient does not require consults for optimization at this time. The Following Tests/Procedures Have Been Initiated: EKG, Labs ordered in Epic per Surgeon ( dated 01/17/2023) CONABO completed 02/18/2022 Planned Anesthetic: General Instructions Given to Patient: Instructions located in the after visit summary. Patient given verbal and written preop instructions and voices comprehension and compliance. SIGNATURE: Ruba Awad APRN.CNP PATIENT NAME: Hoang White DATE: February 09, 2023 TIME: 1:40 PM documented in this encounter [facility] 02-09-2023 Instructions Ruba Awad APRN.CNP - 02/09/2023 10:40 AM EDT PATIENT PREOPERATIVE INSTRUCTIONS Ana Enriquez MD has scheduled you for your procedure at this surgery center: [facility]: [phone] --[id number] [id number]. Please check in on the 1st floor at registration desk 6. Please read below carefully for your personalized instructions. Dietary Restrictions: Dietary and Bowel instructions per Surgeon - No solid food after midnight. - You may have 12 ounces of clear liquids (water, clear juices such as apple juice or gatorade, carbonated beverages, clear tea, black coffee -NO CREAM OR SUGAR ) until 2 hours before scheduled arrival at facility. Medications: Unless instructed differently below, stay on all of your prescription medications until your surgery. Approved medications to take the morning of surgery with a sip of water: buPROPion XL (WELLBUTRIN XL), levothyroxine (SYNTHROID), atorvastatin (LIPITOR) If you start any new medications after today's visit, please contact the surgeon's office. Blood Thinning Medications: - Stop NSAIDS (Ibuprofen, Advil, Aleve, Motrin, Celebrex, Mobic, etc.) 7 days before surgery, as directed by your surgeon. - Stop Aspirin 7 days before surgery, as directed by your surgeon. - Stop Vitamin E, ALL multi-vitamins, herbals and dietary supplements 7 days before surgery. - You may take Tylenol (Acetaminophen) or any of your pain medications that do not contain aspirin or NSAIDS as needed. Important Reminders: - Candy, mints, and tobacco products are NOT permitted the morning of surgery. - Hearing aids, dentures and glasses may be worn the morning of surgery. - NO jewelry, body piercings, makeup, hairpins or contacts are to be worn the day of surgery. If you develop symptoms such as a fever, cold, or flu, or have other changes to your health within TWO DAYS of scheduled surgery or the morning of surgery, please contact the surgery center above. Personal Belongings: -Please have photo ID and insurance cards. -If you do not have a copy of advance directives on file with us, please bring a copy with you on the day of surgery. - Leave ALL valuables and money at home or with family members. Arrival Time for Surgery: - The Surgery Center or hospital where you are having surgery will call the afternoon before surgery (or Monday for Monday surgery) with a scheduled arrival time. - If you have not heard by 4 pm, please contact the surgery center above. Please be aware that emergency situations arise, which may delay or change your surgical time. If this happens, we will notify you as soon as possible and regret any inconvenience. If you already have an Advance Directive, please fax a copy to [phone] or email to for it to be added to your chart. If you do not have an Advance Directive, you can find the appropriate form and more information at [email or web address]. We recommend that you complete the Advance Directive form found on the website and bring it with you the day of your surgery. It can be witnessed and scanned into your chart that day. documented in this encounter [facility] 01-31-2023 Note HNO ID: [id number] Author: BARB Meyers) Service: Radiology Author Type: Technologist Type: Progress Notes Filed: 01/31/2023 3:15 PM Note Text: Radiology Service Progress Note PATIENT NAME: Hoang White DATE OF SERVICE: January 31, 2023 TIME: 3:14 PM PATIENT IDENTITY VERIFICATION COMPLETED USING TWO (2) IDENTIFIERS: Name and Date of confirmed by patient verbally. FALL SCREENING: Has the patient had 2 falls in the last year or 1 fall with injury or currently using an Ambulatory Assistive Device (Walker, Cane, Wheelchair, Crutches, etc.)? No PATIENT GENDER DATA: Male PATIENT RELEVANT IMPLANT DATA REVIEWED: Not Applicable RADIOLOGY DEPARTMENT: General X-ray: Exam(s) Completed: GI/ Procedure(s): Barium enema with water soluable contrast PERIPHERAL IV DATA: Not applicable SIGNED BY: RT Mira(Kelle) January 31, 2023 3:14 PM [facility] 01-31-2023 History of Present illness Narrative Radiology Service Progress Note PATIENT NAME: Hoang White DATE OF SERVICE: January 31, 2023 TIME: 3:14 PM PATIENT IDENTITY VERIFICATION COMPLETED USING TWO (2) IDENTIFIERS: Name and Date of confirmed by patient verbally. FALL SCREENING: Has the patient had 2 falls in the last year or 1 fall with injury or currently using an Ambulatory Assistive Device (Walker, Cane, Wheelchair, Crutches, etc.)? No PATIENT GENDER DATA: Male PATIENT RELEVANT IMPLANT DATA REVIEWED: Not Applicable RADIOLOGY DEPARTMENT: General X-ray: Exam(s) Completed: GI/ Procedure(s): Barium enema with water soluable contrast PERIPHERAL IV DATA: Not applicable SIGNED BY: RT Mira(Kelle) January 31, 2023 3:14 PM documented in this encounter [facility] 01-17-2023 Note HNO ID: [id number] Author: Ana Enriquez MD Service: ? Author Type: Physician Type: Progress Notes Filed: 01/17/2023 10:52 AM Note Text: COLORECTAL SURGERY January 17, 2023 Hoang White Chief Complaint: surveillance of rectal cancer History of Present Illness: Hoang White is a 47 year old male presents to the office for surveillance of rectal cancer. 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. Last seen in the office on on 12/06/22 with Kaylin Aragon FILE CONVERSION OPERATOR for concerns of stoma trauma. Pouching issues: still with issues due to trauma to stoma w/ leakage from superior aspect of stoma w/ associated peristomal dermatitis 24 hr stoma output: Thinks more than 1.5L / 24 hrs but doesn't track output. Usually urine is clear, occasional dark urine/dehydration Wound/incision concerns: No Current medications: Taken naproxen, tylenol, minimal suboxone Current EtOH: No Current tobacco use: No Endoscopist: Kishan Jaquez Medical oncologist: Oscar Gonzalez Radiation oncologist: Tylor Davalos Sigmoidoscopy on 10/13/22: - Stricture in the proximal rectum. - No specimens collected. Colonoscopy date/findings: 12/24/21 Partially obstructing large circumferential mass, rectosigmoid at 10 cm, multiple biopsies obtained and tattooed. Colonoscopy pathology: Rectosigmoid colon mass: invasive moderately differentiated adenocarcinoma. CT chest date/findings: 09/26/22 SCATTERED LESS THAN 0.5 CM LUNG NODULES BILATERALLY, STABLE. NO SIGNIFICANT INTERVAL CHANGE SINCE 01/13/2022. CT abdomen date/findings: 10/17/22 Stable postoperative appearance to the abdomen and pelvis as above. MRI rectum date/findings: 09/26/22 Since 05/12/2022 and 02/03/2022, post treatment primary tumor assessment: RESULT: TREATED PRIMARY TUMOR CHARACTERISTICS (Compare to pre-treatment): DWI (with associated low ADC) ? restricted diffusion and low ADC in tumor or tumor bed: Absent. MRI-T2W: Mixed dark T2/scar and intermediate signal. T2 bright mucin (cannot distinguish between cellular and acellular mucin): Absent. Description: Development of T2 hyperintense scar. Distance of the inferior margin of treated tumor to the anal verge: 10.5 cm (3:21) Distance of the inferior margin to the top of sphincter complex/anorectal junction: 8.5 cm (3:21) Relationship to anterior peritoneal reflection: Straddles Craniocaudal length: 2.4 cm (6:24) Pre-treatment craniocaudal length: 3.5 cm (05/12/2022); 6.8 cm (02/03/2022) Tumor location: Upper rectum (10-15 cm) Maximal wall thickness: 0.5 cm (6:24) Pre-treatment wall thickness: 0.7 cm (05/12/2022); 1.3 cm (02/03/2022) Invasion of anal sphincter complex: Absent. Anal canal involvement: None. TUMOR DEPOSITS AND EXTRAMURAL VASCULAR INVASION (EMVI): Tumor deposits:(separate from metastatic lymph nodes): No. EMVI: No (none evident pre-treatment). MESORECTAL FASCIA (MRF): Shortest distance of extraluminal part of the tumor to MRF: Tumor extension beyond the rectal wall at and above the anterior peritoneal reflection Tumor extension through the peritonealized portion of the rectum into peritoneal fat: Tumor extension along the right lateral wall inseparable from the peritoneal reflection. Is there a separate tumor deposit, LN or EMVI threatening (?1mm and ?2 mm) or invading (< 1 mm) the MRF? No. Comments: N/A T4 disease interval change: Continued decreased thickening along the right peritoneal reflection. POST-TREATMENT TUMOR REGRESSION: mrTRG: Grade 3 - Moderate response LYMPH NODES: Mesorectal/superior rectal lymph nodes and/or tumor deposits: N0 (no visible lymph nodes/deposits or only < 5 mm short axis) Suspicious extra mesorectal lymph nodes: None. OTHER FINDINGS: Diverting end colostomy. Trabeculated appearance of the urinary bladder. Postsurgical changes of right inguinal hernia repair. No aggressive osseous lesions. Additional imaging: n/a CEA date/level: 05/24/22- 5.9 Clinical stage: stage IIIC, [id number] Treatment: 5000 cGy in 25 fractions, 2 VMAT/Rapid Arcs, 10X with daily CBCT Imaging TOTAL: 5000 cGy in 25 fractions with concurrent Xeloda S/p consolidation CAPOX complete 10/28/22 Pathologic stage: TBD Surveillance primary physician: Carlos Surveillance plan: TBD. PAST MEDICAL HISTORY Diagnosis Date Adenocarcinoma of colon (HCC) Endocarditis 2003 Hypothyroidism Mass of colon [address] Jaquez PAST SURGICAL HISTORY Procedure Laterality Date COLONSCOPY SCREENING HIGH RISK 2021 COLOSTOMY 02/21/2022 Laparoscopic Divided End Loop Sigmoid Colostomy EGD PAST SURGICAL HISTORY OF Right 2012 inguinal PAST SURGICAL HISTORY OF 2019 teeth pullled out Current Outpatient Medications Medication Sig Dispense Refill loperamide (IMODIUM) 2 mg cap(s) Take 1 capsule by mouth twice daily before meals (0600/1600). 60 capsule 2 traMADol (ULTRAM) 50 mg tablet Take 1 tablet by mouth ever (more content not included)... [facility] 01-17-2023 Nurse Note Education packet given. Ileostomy reversal surgery scheduled for February 20. They are aware that he will need to complete a GGE prior to his surgery. No questions or concerns at this time. What is the reason for your visit today? Patient presents for post op surveillance of rectal cancer. 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 Who is your referring physician? Are you having poor oral intake? NO Have you had unintentional weight loss of 15 lbs/7 Kg in the last 3-6 months? NO Bowels: Wound: Temperature: No Drains: No documented in this encounter [facility] 01-17-2023 History of Present illness Narrative COLORECTAL SURGERY January 17, 2023 Hoang White Chief Complaint: surveillance of rectal cancer History of Present Illness: Hoang White is a 47 year old male presents to the office for surveillance of rectal cancer. 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. Last seen in the office on on 12/06/22 with Kaylin Aragon FILE CONVERSION OPERATOR for concerns of stoma trauma. Pouching issues: still with issues due to trauma to stoma w/ leakage from superior aspect of stoma w/ associated peristomal dermatitis 24 hr stoma output: Thinks more than 1.5L / 24 hrs but doesn't track output. Usually urine is clear, occasional dark urine/dehydration Wound/incision concerns: No Current medications: Taken naproxen, tylenol, minimal suboxone Current EtOH: No Current tobacco use: No Endoscopist: Kishan Jaquez Medical oncologist: Oscar Gonzalez Radiation oncologist: Tylor Davalos Sigmoidoscopy on 10/13/22: - Stricture in the proximal rectum. - No specimens collected. Colonoscopy date/findings: 12/24/21 Partially obstructing large circumferential mass, rectosigmoid at 10 cm, multiple biopsies obtained and tattooed. Colonoscopy pathology: Rectosigmoid colon mass: invasive moderately differentiated adenocarcinoma. CT chest date/findings: 09/26/22 SCATTERED LESS THAN 0.5 CM LUNG NODULES BILATERALLY, STABLE. NO SIGNIFICANT INTERVAL CHANGE SINCE 01/13/2022. CT abdomen date/findings: 10/17/22 Stable postoperative appearance to the abdomen and pelvis as above. MRI rectum date/findings: 09/26/22 Since 05/12/2022 and 02/03/2022, post treatment primary tumor assessment: RESULT: TREATED PRIMARY TUMOR CHARACTERISTICS (Compare to pre-treatment): DWI (with associated low ADC) ? restricted diffusion and low ADC in tumor or tumor bed: Absent. MRI-T2W: Mixed dark T2/scar and intermediate signal. T2 bright mucin (cannot distinguish between cellular and acellular mucin): Absent. Description: Development of T2 hyperintense scar. Distance of the inferior margin of treated tumor to the anal verge: 10.5 cm (3:21) Distance of the inferior margin to the top of sphincter complex/anorectal junction: 8.5 cm (3:21) Relationship to anterior peritoneal reflection: Straddles Craniocaudal length: 2.4 cm (6:24) Pre-treatment craniocaudal length: 3.5 cm (05/12/2022); 6.8 cm (02/03/2022) Tumor location: Upper rectum (10-15 cm) Maximal wall thickness: 0.5 cm (6:24) Pre-treatment wall thickness: 0.7 cm (05/12/2022); 1.3 cm (02/03/2022) Invasion of anal sphincter complex: Absent. Anal canal involvement: None. TUMOR DEPOSITS AND EXTRAMURAL VASCULAR INVASION (EMVI): Tumor deposits:(separate from metastatic lymph nodes): No. EMVI: No (none evident pre-treatment). MESORECTAL FASCIA (MRF): Shortest distance of extraluminal part of the tumor to MRF: Tumor extension beyond the rectal wall at and above the anterior peritoneal reflection Tumor extension through the peritonealized portion of the rectum into peritoneal fat: Tumor extension along the right lateral wall inseparable from the peritoneal reflection. Is there a separate tumor deposit, LN or EMVI threatening (?1mm and ?2 mm) or invading (< 1 mm) the MRF? No. Comments: N/A T4 disease interval change: Continued decreased thickening along the right peritoneal reflection. POST-TREATMENT TUMOR REGRESSION: mrTRG: Grade 3 - Moderate response LYMPH NODES: Mesorectal/superior rectal lymph nodes and/or tumor deposits: N0 (no visible lymph nodes/deposits or only < 5 mm short axis) Suspicious extra mesorectal lymph nodes: None. OTHER FINDINGS: Diverting end colostomy. Trabeculated appearance of the urinary bladder. Postsurgical changes of right inguinal hernia repair. No aggressive osseous lesions. Additional imaging: n/a CEA date/level: 05/24/22- 5.9 Clinical stage: stage IIIC, [id number] Treatment: 5000 cGy in 25 fractions, 2 VMAT/Rapid Arcs, 10X with daily CBCT Imaging TOTAL: 5000 cGy in 25 fractions with concurrent Xeloda S/p consolidation CAPOX complete 08/26/22 Pathologic stage: TBD Surveillance primary physician: Carlos Surveillance plan: TBD. PAST MEDICAL HISTORY Diagnosis Date Adenocarcinoma of colon (HCC) Endocarditis 2004 Hypothyroidism Mass of colon [address] Jaquez PAST SURGICAL HISTORY Procedure Laterality Date COLONSCOPY SCREENING HIGH RISK 2021 COLOSTOMY 02/21/2022 Laparoscopic Divided End Loop Sigmoid Colostomy EGD PAST SURGICAL HISTORY OF Right 2012 inguinal PAST SURGICAL HISTORY OF 2020 teeth pullled out Current Outpatient Medications Medication Sig Dispense Refill loperamide (IMODIUM) 2 mg cap(s) Take 1 capsule by mouth twice daily before meals (0600/1600). 60 capsule 2 traMADol (ULTRAM) 50 mg tablet Take 1 tablet by mouth every 6 hours as needed for pain for up to 20 doses. 20 tablet 0 prochlorperazine (COMPAZINE) 10 mg tablet Take 1 tablet by mouth every 6 hours as needed. 100 tablet 2 nicotine (NICODERM) 21 mg/24 hr Apply 1 Patch as directed every 24 hours. 30 Patch 1 ondansetron (ZOFRAN) 8 mg tablet Take 1 tablet by mouth every 8 hours as needed for nausea/vomiting. 90 tablet 2 loratadine (CLARITIN) 10 mg tablet Take 10 mg by mouth once daily. atorvastatin (LIPITOR) 10 mg tablet Take 10 mg by mouth once daily. acetaminophen (TYLENOL) 500 mg tablet Take 2 tablets by mouth every 6 hours. levothyroxine (SYNTHROID) 125 mcg tablet Take 125 mcg by mouth once daily. iv contrast (will be provided with radiology test) CT ABD/PEL -Inject, intravenously, once for 1 dose.No IV access, insert saline lock prior to the beginning of sedation, infusion, injection of imaging exam. Discontinue saline lock post exam. If Pt. has a central line or IVAD, may access for administration according to line specific nursing protocol. Once exam is complete flush line and de-access according to line specific nursing protocol in the CT contrast administration guidelines link. 1 Each 0 enteric contrast (will be provided with radiology test) For CT ABD/PEL W IVCON Routine order Administer, As Directed One Time Only, via Oral, Rectal, both Oral and Rectal, Enteric Tube, Stoma or Indwelling Catheter, Enteric Contrast as designated per enteric contrast guidelines 1 Each 0 buPROPion XL (WELLBUTRIN XL) 300 mg 24 hr tablet Take 1 tablet by mouth once daily. Take wellbutrin 150 mg tablet daily for 5 days before starting 300 mg dose daily 30 tablet 2 lactobacillus rhamnosus (CULTURELLE) 10 billion cell capsule Take 1 capsule by mouth once daily. 30 capsule 0 Current Facility-Administered Medications Medication Dose Route Frequency Provider Last Rate Last Admin perflutren lipid microspheres 1.3 mL in NaCl (PF) 0.9% 10 mL injection (DEFINITY) INTRAVENOUS DIRECTED PRTravis Gonzalez MD sodium chloride 0.9 % (flush) 10 mL (BD POSIFLUSH) 10 mL INTRAVENOUS DIRECTED PRTravis Gonzalez MD ALLERGIES No Known Allergies FAMILY HISTORY Problem Relation Age of Onset Breast Cancer Sister Colon Cancer Maternal Grandfather Social History Tobacco Use Smoking status: Former Packs/day: 0.50 Years: 25.00 Pack years: 12.50 Types: Cigarettes Quit date: 10/30/2022 Years since quittin.2 Smokeless tobacco: Never Tobacco comments: Less than half a pack Vaping Use Vaping Use: Never used Substance Use Topics Alcohol use: Not Currently Comment: 2 drinks/week; heavy in past Drug use: Not Currently Types: IV Comment: Past drug use of stephie Physical Exam: BP 98/55 (BP Site: Right Arm, BP Position: Sitting) Pulse (!) 55 Temp 36.3 C (97.3 F) Ht 172.7 cm (5' 8 ) Wt 59 kg (130 lb) SpO2 95% BMI 19.77 kg/m General Appearance: Well appearing, alert, in no acute distress, well-hydrated, well nourished. Abdomen: soft ND TTP around stoma w/ mild-moderate peristomal dermatitis. 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 Digital rectal exam reveals anastomosis palpable at tip of finger, 6 cm from anal verge. Retained mucus at anastomosis precluded evaluation of patency/narrowing Activities Specialist present: Yes Kelsea Assessment Assessment and Plan: Hoang White is a 47 year old male with rectal ca s/p lap diverting colostomy, ISAÍAS, robotic colostomy takedown, LAR, DLI who presents for attention to ileostomy and for pouching issues. Discussed high stoma output and recommended measuring amount. Discussed adding metamucil 1 TBSP daily and if still > 1.5L / 24 hrs then add imodium 1 tab before meals. Requesting ultram for pain. Stoma RN evaluation today for peristomal dermatitis GGE and ileostomy closure 3 months from LAR Medical Decision Making: Data Reviewed: Tests & Documents Reviewed/ordered: Review of prior notes from [facility] Review of prior operative reports Review of Pathology Additional testing or imaging to be ordered: GGE I have discussed Hoang White's treatment plan and/or results with the patient and his partner. I spent a total of 45 minutes on the date of the service which included preparing to see the patient, [id number] patient care, completing clinical documentation, obtaining and/or reviewing separately obtained history, performing a medically appropriate examination, counseling and educating the patient/family/caregiver, ordering medications, tests, or procedures, and care coordination (not separately reported). Ana Enriquez MD Colorectal Surgery documented in this encounter [facility] 01-02-2023 Miscellaneous Notes Returned call and left voice message. Pt. Family called and has concerns with his stoma site would like a call. PH:[phone] documented in this encounter [facility] 12-21-2022 Miscellaneous Notes Voicemail received from pt stating he has irritation around his stoma and would like to know what he should use for this. Discussed with Temi who states pt needs to contact the stoma team regarding this. Call placed to pt and message left encouraging him to contact Dr Enriquez's office or his stoma nurse regarding this. Pt has reached out to their office in the past regarding other concerns as well. Meghan Pichardo RN documented in this encounter [facility] 12-20-2022 Miscellaneous Notes Call returned to patient. No answer, left message to return call to office to schedule an earlier follow up for complaint of pain. LM no prescription to be sent in until evaluation. Office number provided to schedule - offered next day appt. With FILE CONVERSION OPERATOR. Dr Enriquez aware of request Patient called regarding post operative 1/9 robotic laparoscopic proctectomy and wound like a refill on pain medication return call to [phone] documented in this encounter [facility] 12-14-2022 Miscellaneous Notes Faxed to [employer] #[phone] on 12/14/22. Bárbara Sexton MA Short term disability for surgery recovery has been completed and placed in folder to be signed. Pt would like paperwork faxed to [employer] and secured emailed to work. Email attached to paperwork. Ava Lewis documented in this encounter [facility] 12-06-2022 Note HNO ID: [id number] Author: Kaylin Aragon APRN.FILE CONVERSION OPERATOR Service: ? Author Type: Nurse Practitioner Type: Progress Notes Filed: 12/06/2022 1:58 PM Note Text: COLORECTAL SURGERY December 06, 2022 Hoang White 47 year old Chief Complaint: stoma concern/trauma History of Present Illness: Hoang White is a 47 year old male presents today for postoperative appointment/ileostomy concerns after recently undergoing colostomy takedown, robotic assisted laparoscopic proctosigmoidectomy with colorectal anastomosis and diverting loop ileostomy on 11/07/[address] Enriquez for history of rectal cancer. Patient presented to the emergency room over the weekend due to concerns regarding stoma trauma. He reports that his 10 pound dog jumped on his abdomen and tore his stoma. He reports stool coming from the 12 o'clock position at the mucocutaneous junction. He denies stool from the loss of the loop. He states since discharge otherwise doing well with his stoma care. He has been using the same flat pouching system that he is used with his colostomy. He reports peristomal skin irritation due to the trajectory of stool however denies issues with pouch adherence or leakage. He reports that his stool can be very loose depending on what he is eating. He is not taking any Imodium or supplements to help thicken up his stool. He denies fevers or chills or concern for peristomal infection.. PAST MEDICAL HISTORY Diagnosis Date Adenocarcinoma of colon (HCC) Endocarditis 2003 Hypothyroidism Mass of colon [address] Jaquez PAST SURGICAL HISTORY Procedure Laterality Date COLONSCOPY SCREENING HIGH RISK 2021 COLOSTOMY 02/21/2022 Laparoscopic Divided End Loop Sigmoid Colostomy EGD PAST SURGICAL HISTORY OF Right 2012 inguinal PAST SURGICAL HISTORY OF 2019 teeth pullled out Current Outpatient Medications Medication Sig Dispense Refill ibuprofen (MOTRIN) 200 mg tablet Take 2 tablets by mouth every 8 hours as needed for pain. 90 tablet 1 traMADol (ULTRAM) 50 mg tablet Take 1 tablet by mouth every 6 hours as needed for pain for up to 20 doses. 20 tablet 0 prochlorperazine (COMPAZINE) 10 mg tablet Take 1 tablet by mouth every 6 hours as needed. 100 tablet 2 nicotine (NICODERM) 21 mg/24 hr Apply 1 Patch as directed every 24 hours. 30 Patch 1 ondansetron (ZOFRAN) 8 mg tablet Take 1 tablet by mouth every 8 hours as needed for nausea/vomiting. 90 tablet 2 loratadine (CLARITIN) 10 mg tablet Take 10 mg by mouth once daily. atorvastatin (LIPITOR) 10 mg tablet Take 10 mg by mouth once daily. acetaminophen (TYLENOL) 500 mg tablet Take 2 tablets by mouth every 6 hours. levothyroxine (SYNTHROID) 125 mcg tablet Take 125 mcg by mouth once daily. traMADol (ULTRAM) 50 mg tablet Take 1 tablet by mouth every 8 hours as needed for pain for up to 7 days. 20 tablet 0 loperamide (IMODIUM) 2 mg cap(s) Take 1 capsule by mouth twice daily before meals (0600/1600). 60 capsule 2 iv contrast (will be provided with radiology test) CT ABD/PEL -Inject, intravenously, once for 1 dose.No IV access, insert saline lock prior to the beginning of sedation, infusion, injection of imaging exam. Discontinue saline lock post exam. If Pt. has a central line or IVAD, may access for administration according to line specific nursing protocol. Once exam is complete flush line and de-access according to line specific nursing protocol in the CT contrast administration guidelines link. 1 Each 0 enteric contrast (will be provided with radiology test) For CT ABD/PEL W IVCON Routine order Administer, As Directed One Time Only, via Oral, Rectal, both Oral and Rectal, Enteric Tube, Stoma or Indwelling Catheter, Enteric Contrast as designated per enteric contrast guidelines 1 Each 0 buPROPion XL (WELLBUTRIN XL) 300 mg 24 hr tablet Take 1 tablet by mouth once daily. Take wellbutrin 150 mg tablet daily for 5 days before starting 300 mg dose daily 30 tablet 2 lactobacillus rhamnosus (CULTURELLE) 10 billion cell capsule Take 1 capsule by mouth once daily. 30 capsule 0 Current Facility-Administered Medications Medication Dose Route Frequency Provider Last Rate Last Admin perflutren lipid microspheres 1.3 mL in NaCl (PF) 0.9% 10 mL injection (DEFINITY) INTRAVENOUS DIRECTED SANDRA Gonzalez MD sodium chloride 0.9 % (flush) 10 mL (BD POSIFLUSH) 10 mL INTRAVENOUS DIRECTED SANDRA Gonzalez MD ALLERGIES No Known Allergies FAMILY HISTORY Problem Relation Age of Onset Breast Cancer Sister Colon Cancer Maternal Grandfather Social History Tobacco Use Smoking status: Every Day Packs/day: 0.50 Years: 25.00 Pack years: 12.50 Types: Cigarettes Smokeless tobacco: Never Tobacco comments: Less than half a pack Vaping Use Vaping Use: Never used Substance Use Topics Alcohol use: Yes Comment: 2 drinks/week; heavy in past Drug use: Not Currently Types: IV Comment: Past drug use of (more content not included)... [facility] 12-06-2022 History of Present illness Narrative COLORECTAL SURGERY December 06, 2022 Hoang White 47 year old Chief Complaint: stoma concern/trauma History of Present Illness: Hoang White is a 47 year old male presents today for postoperative appointment/ileostomy concerns after recently undergoing colostomy takedown, robotic assisted laparoscopic proctosigmoidectomy with colorectal anastomosis and diverting loop ileostomy on 11/07/[address] Enriquez for history of rectal cancer. Patient presented to the emergency room over the weekend due to concerns regarding stoma trauma. He reports that his 10 pound dog jumped on his abdomen and tore his stoma. He reports stool coming from the 12 o'clock position at the mucocutaneous junction. He denies stool from the loss of the loop. He states since discharge otherwise doing well with his stoma care. He has been using the same flat pouching system that he is used with his colostomy. He reports peristomal skin irritation due to the trajectory of stool however denies issues with pouch adherence or leakage. He reports that his stool can be very loose depending on what he is eating. He is not taking any Imodium or supplements to help thicken up his stool. He denies fevers or chills or concern for peristomal infection.. PAST MEDICAL HISTORY Diagnosis Date Adenocarcinoma of colon (HCC) Endocarditis 2003 Hypothyroidism Mass of colon [address] Jaquez PAST SURGICAL HISTORY Procedure Laterality Date COLONSCOPY SCREENING HIGH RISK 2021 COLOSTOMY 02/21/2022 Laparoscopic Divided End Loop Sigmoid Colostomy EGD PAST SURGICAL HISTORY OF Right 2012 inguinal PAST SURGICAL HISTORY OF 2019 teeth pullled out Current Outpatient Medications Medication Sig Dispense Refill ibuprofen (MOTRIN) 200 mg tablet Take 2 tablets by mouth every 8 hours as needed for pain. 90 tablet 1 traMADol (ULTRAM) 50 mg tablet Take 1 tablet by mouth every 6 hours as needed for pain for up to 20 doses. 20 tablet 0 prochlorperazine (COMPAZINE) 10 mg tablet Take 1 tablet by mouth every 6 hours as needed. 100 tablet 2 nicotine (NICODERM) 21 mg/24 hr Apply 1 Patch as directed every 24 hours. 30 Patch 1 ondansetron (ZOFRAN) 8 mg tablet Take 1 tablet by mouth every 8 hours as needed for nausea/vomiting. 90 tablet 2 loratadine (CLARITIN) 10 mg tablet Take 10 mg by mouth once daily. atorvastatin (LIPITOR) 10 mg tablet Take 10 mg by mouth once daily. acetaminophen (TYLENOL) 500 mg tablet Take 2 tablets by mouth every 6 hours. levothyroxine (SYNTHROID) 125 mcg tablet Take 125 mcg by mouth once daily. traMADol (ULTRAM) 50 mg tablet Take 1 tablet by mouth every 8 hours as needed for pain for up to 7 days. 20 tablet 0 loperamide (IMODIUM) 2 mg cap(s) Take 1 capsule by mouth twice daily before meals (0600/1600). 60 capsule 2 iv contrast (will be provided with radiology test) CT ABD/PEL -Inject, intravenously, once for 1 dose.No IV access, insert saline lock prior to the beginning of sedation, infusion, injection of imaging exam. Discontinue saline lock post exam. If Pt. has a central line or IVAD, may access for administration according to line specific nursing protocol. Once exam is complete flush line and de-access according to line specific nursing protocol in the CT contrast administration guidelines link. 1 Each 0 enteric contrast (will be provided with radiology test) For CT ABD/PEL W IVCON Routine order Administer, As Directed One Time Only, via Oral, Rectal, both Oral and Rectal, Enteric Tube, Stoma or Indwelling Catheter, Enteric Contrast as designated per enteric contrast guidelines 1 Each 0 buPROPion XL (WELLBUTRIN XL) 300 mg 24 hr tablet Take 1 tablet by mouth once daily. Take wellbutrin 150 mg tablet daily for 5 days before starting 300 mg dose daily 30 tablet 2 lactobacillus rhamnosus (CULTURELLE) 10 billion cell capsule Take 1 capsule by mouth once daily. 30 capsule 0 Current Facility-Administered Medications Medication Dose Route Frequency Provider Last Rate Last Admin perflutren lipid microspheres 1.3 mL in NaCl (PF) 0.9% 10 mL injection (DEFINITY) INTRAVENOUS DIRECTED SANDRA Gonzalez MD sodium chloride 0.9 % (flush) 10 mL (BD POSIFLUSH) 10 mL INTRAVENOUS DIRECTED SANDRA Gonzalez MD ALLERGIES No Known Allergies FAMILY HISTORY Problem Relation Age of Onset Breast Cancer Sister Colon Cancer Maternal Grandfather Social History Tobacco Use Smoking status: Every Day Packs/day: 0.50 Years: 25.00 Pack years: 12.50 Types: Cigarettes Smokeless tobacco: Never Tobacco comments: Less than half a pack Vaping Use Vaping Use: Never used Substance Use Topics Alcohol use: Yes Comment: 2 drinks/week; heavy in past Drug use: Not Currently Types: IV Comment: Past drug use of herorin Physical Exam: BP 117/62 Pulse 73 Temp 36.4 C (97.6 F) Resp 20 Ht 172.7 cm (5' 8 ) Wt 59 kg (130 lb) SpO2 96% BMI 19.77 kg/m General Appearance: Well appearing, alert, in no acute distress, well-hydrated, well nourished. Abdomen: Ileostomy noted to left upper quadrant. Stoma is pink moist and well budded. Proximal and os centrally located. Distal limb just below in the 6 o'clock position. Mucocutaneous junction is intact. In the 12 o'clock position there is an area of irritation in which patient states that is where her stool is exiting from. This was not witnessed as patient states he has not eaten since yesterday evening due to plan for this appointment. There is peristomal skin irritation just superior to stoma from moisture related to stool. Assessment Assessment and Plan: Hoang White is a 47 year old male with stoma trauma now noticing stool exiting from the level of mucocutaneous junction at the 12 o'clock position. Mucocutaneous junction is otherwise intact. There is moderate amount of peristomal skin irritation due to effluent in the 12 o'clock position. We discussed peristomal skin treatments to help improve skin as well as pouching modifications now that he has an ileostomy. We discussed slowly advancing diet as tolerated as well as Imodium, 1 tablet before breakfast and before dinner to help improve stool consistency. We discussed this is slowly titrating up as needed however he can contact the office with any questions regarding dosing. Patient will plan to follow-up with Dr. Enriquez in 6 weeks for routine postoperative appointment as well as discussion regarding stoma takedown. Patient will contact the office with any new or concerning symptoms. Per her request a refill for Ultram was provided. We discussed alternating Tylenol and ibuprofen with the Ultram as needed. We discussed warning signs regarding concerns for peristomal abscess/skin infection as well as the general appearance of what the stoma should look like regardless of where stool is coming from. Patient and spouse both verbalized understanding will contact the office with any new or concerning symptoms. Kaylin Aragon APRN.TAHIRA Colorectal Surgery documented in this encounter [facility] 12-06-2022 Nurse Note Summary: pain at s joey What is the reason for your visit today? Stoma pain and irritation around site Who is your referring physician? N/a Are you having poor oral intake? YES Have you had unintentional weight loss of 15 lbs/7 Kg in the last 3-6 months? YES Bowels: stoma output apple sauce consistency, more water or thin at times Wound: n/a Temperature: No Drains: No documented in this encounter [facility] 12-05-2022 Miscellaneous Notes Returned call. Elsa discussed her concerns of stool coming out of the area between the skin and the top of the stoma. No concerns with pouching. Stool is going into the bag. She would like an appointment for her today. I informed her that the earliest I can provide is tomorrow at 1030 am with Yolis Aragon NP. Dr Enriquez will be available in the office to stop in and see him as well. They were appreciative of the call. No other questions or concerns at this time. Patient called and left message regarding post operative 11/07 robotic laparoscopic proctectomy and concerns regarding a hole in the stoma and leakage return call to [phone] documented in this encounter [facility] 11-24-2022 Note HNO ID: [id number] Author: Bouchra Thompson APRN.FILE CONVERSION OPERATOR Service: ? Author Type: Nurse Practitioner Type: Progress Notes Filed: 11/28/2022 12:29 PM Note Text: Rectal Cancer Tumor Board Post-Operative Discussion Note Date of conference: 11/24/2022 Conference was within 4 weeks of surgery: Yes Presenter/specialty: LEO Enriquez Pretreatment (clinical) stage: [id number] stage IIIC Pre-treatment CEA level: 25.4 Was definitive treatment initiated within 60 days of evaluation for rectal cancer: Yes Neoadjuvant therapy (Y/N) and type: Yes - ISAÍAS total neoadjuvant therapy chemoradiation and consolidation chemotherapy Neoadjuvant therapy date of completion: 08/26/2022 Date of surgery: 11/07/2022 Surgical procedure and approach (lap/open/robotic): Colostomy Takedown, Robotic Assisted Laparoscopic Proctosigmoidectomy (Low Anterior Resection) with Colorectal Anastomosis and Diverting Loop Ileostomy, Flexible Sigmoidoscopy Stoma created (Y/N) and type: Yes - diverting ileostomy Postoperative complications that may impact further treatment: No Unexpected findings (e.g. metastatic disease, adjacent organ involvement, grossly involved margins after resection): No Synoptic Operative Report Completed: Yes Photograph of surgical specimen performed and reviewed in tumor board: Yes Circumferential Resection Margin: clear Distal Resection Margin and Distance: clear 36mm Lymph Nodes Involved/Examined: 0/14 Mesorectal Gross Pathology Grade: complete Final pathology stage: [id number] stage IIA AJCC Tumor Regression Grade: 2 MSI status: DIANNE Pathology report read by Dr. Malave/Jason: Yes Pathology report include all elements as outlined by [employer]: Yes Pathology report uses a standard synoptic format: Yes Pathology report completed within two weeks of surgical resection: Yes Adjuvant therapy recommended (Y/N) and type: No Referral to medical oncology: established Referral to radiation oncology: established Referral to palliative care/supportive care services: No Genetic counseling referral: no Patient eligible to clinical trial enrollment: No Other Discussion: 47 year old male with [id number] stage IIIC rectal cancer. Now s/p a Colostomy Takedown, Robotic Assisted Laparoscopic Proctosigmoidectomy (Low Anterior Resection) with Colorectal Anastomosis and Diverting Loop Ileostomy, Flexible Sigmoidoscopy on 11/07/2022. Post-op pathology [id number] stage IIA. Plan for standard surveillance. Monitor pulmonary nodules. Disciplines present: Colorectal Surgery, Medical Oncology, Radiation Oncology, Radiology, Anatomic Pathology This is the summary of the general discussion provided at tumor board conference. The final recommendations will be made by the primary health care team and the patient after discussing the benefits, risks and alternatives to the various treatment options. This treatment recommendation summary was provided to the treating physician Dr. Enriquez and was shared with the patient [facility] 11-21-2022 Miscellaneous Notes Pt calls asking if there is paperwork on file for disability. He states he thought that he would have dropped it off at the office prior to his recent surgery but doesn't remember if he did or not. Reviewed pt's chart, spoke with medical assistance, and looked in Dr Granados's mail and do not see any forms that we've received. Pt notified of this. He will call his employer to see what needs to be filled out. Meghan Pichardo RN documented in this encounter [facility] 11-17-2022 Miscellaneous Notes Tumor board documented in this encounter [facility] 11-16-2022 Miscellaneous Notes Returned call and left voice message. Patient called in and has post-op questions/surgical concerns. Patient had surgery on with Dr. Enriquez on 11/07/22. Contact# [phone] documented in this encounter [facility] 11-12-2022 Note HNO ID: [id number] Author: Crystal Guzman (Dental Lab Technician) Service: Pharmacy Author Type: ? Type: Plan of Care Filed: 11/21/2022 2:36 PM Note Text: PHARMACY BEDSIDE DELIVERY SERVICE Patient Name: Hoang White The marked outpatient medications were filled and picked up at outpatient pharmacy. Medication List START taking these medications enoxaparin 40 mg/0.4 mLX Commonly known as: LOVENOX Inject 0.4 mL subcutaneously once daily for 21 days. ibuprofen 200 mg tabletX Commonly known as: MOTRIN Take 2 tablets by mouth every 8 hours as needed for pain. traMADol 50 mg tabletX Commonly known as: ULTRAM Take 1 tablet by mouth every 6 hours as needed for pain for up to 20 doses. CONTINUE taking these medications acetaminophen 500 mg tablet Commonly known as: TYLENOL Take 2 tablets by mouth every 6 hours. atorvastatin 10 mg tablet Commonly known as: LIPITOR buPROPion XL 300 mg 24 hr tablet Commonly known as: WELLBUTRIN XL Take 1 tablet by mouth once daily. Take wellbutrin 150 mg tablet daily for 5 days before starting 300 mg dose daily enteric contrast (will be provided with radiology test) For CT ABD/PEL W IVCON Routine order Administer, As Directed One Time Only, via Oral, Rectal, both Oral and Rectal, Enteric Tube, Stoma or Indwelling Catheter, Enteric Contrast as designated per enteric contrast guidelines iv contrast (will be provided with radiology test) CT ABD/PEL -Inject, intravenously, once for 1 dose.No IV access, insert saline lock prior to the beginning of sedation, infusion, injection of imaging exam. Discontinue saline lock post exam. If Pt. has a central line or IVAD, may access for administration according to line specific nursing protocol. Once exam is complete flush line and de-access according to line specific nursing protocol in the CT contrast administration guidelines link. lactobacillus rhamnosus 10 billion cell capsule Commonly known as: CULTURELLE Take 1 capsule by mouth once daily. levothyroxine 125 mcg tablet Commonly known as: SYNTHROID loratadine 10 mg tablet Commonly known as: CLARITIN nicotine 21 mg/24 hr Commonly known as: NICODERM Apply 1 Patch as directed every 24 hours. ondansetron 8 mg tablet Commonly known as: ZOFRAN Take 1 tablet by mouth every 8 hours as needed for nausea/vomiting. prochlorperazine 10 mg tablet Commonly known as: COMPAZINE Take 1 tablet by mouth every 6 hours as needed. You might also be taking other medications not listed above. If you have questions about any of your other medications, talk to the person who prescribed them or your Primary Care Provider. STOP taking these medications capecitabine 500 mg tablet Commonly known as: XELODA Food Supplement, Lactose-Free Liqd Commonly known as: PROMOTE, OSMOLITE, TWO CADEN, ENSURE PLUS, ENLIVE Crystal Guzman (Dental Lab Technician) PAGER: [phone] November 14, 2022 2:36 PM [facility] 11-12-2022 Note HNO ID: [id number] Author: Diego Osorio MD Service: Colorectal Author Type: Resident Type: Progress Notes Filed: 11/12/2022 7:38 AM Note Text: COLORECTAL SURGERY PROGRESS NOTE Hoang White [id number] ASSESSMENT AND PLAN Hoang White is a 47 year old male with PMH of rectal cancer who underwent a robotic LAR with DLI on 11/07. Post operative course uncomplicated. - GI soft - appreciate pain management recs - PO tylenol, gabapentin for home going - hLIV replete lytes prn - OOB as tolerated, encourage ambulation - Encourage incentive spirometry - No abx indicated - SCDS + lovenox for dvt ppx - protonix for gi ppx - no glycemic issues - continue home statin and synthroid - plan for DC Diego Osorio MD [phone] Patient Active Hospital Problem List: Rectal cancer (HCC) (02/21/2022) Severe protein-calorie malnutrition (HCC) (02/22/2022) SUBJECTIVE No acute events overnight Had issue with delirium vs withdrawal yesterday evening likely due to medication Pleasant and apologetic this am Eating and drinking without issues Good ostomy output Voiding without issues OBJECTIVE: BP 121/70 Pulse (!) 58 Temp 36.8 ?C (98.2 ?F) (Oral) Resp 17 Ht 172.7 cm (5' 8 ) Wt 64.9 kg (143 lb) SpO2 97% BMI 21.74 kg/m? Body mass index is 21.74 kg/m?. GENERAL: Alert and oriented, no acute distress, cooperative. CV: RRR LUNGS: Non labored breathing ABDOMEN: soft, mild appropriately tender, non distended, ostomy pink and viable with gas + stool WOUND: incisions c/d/I with surgical glue Labs: CBC, Coags, BMP, Mg, Phos Liver Function, Amylase, AND Lipase I/O past 24h: Intake/Output Summary (Last 24 hours) at 11/12/2022 0738 Last data filed at 11/11/2022 2100 Gross per 24 hour Intake 400 ml Output 690 ml Net -290 ml LDA: Lines, Drains, and Airways Drain Duration Small Bowel Ostomy 11/07/22 LLQ 4 days SURGERY/PROCEDURE: Procedure(s) and Anesthesia Type: * ROBOTIC LAPAROSCOPIC PROCTECTOMY COMPLETE W/ ABDOMINOPERINEAL W/COLOSTOMY - [facility] 11-11-2022 Note HNO ID: [id number] Author: Pedro Luis Waite DO Service: Pain Management Author Type: Anesthesiologist Type: Plan of Care Filed: 11/11/2022 4:50 PM Note Text: Received call from bedside RN regarding increased agitation in the setting of medication changes today by acute pain management service. Case was discussed with the colorectal surgery advanced practice provider as well as the acute pain service advanced practice provider. Given the recent changes in the patient's medication, we will prescribe a more modest regimen -Suboxone decreased from 8 mg to 4 mg -Zanaflex to be discontinued -Gabapentin discontinued, likely to restart tomorrow However given the patient's increasing agitation, the following should be used. Historical EKGs have been reviewed and QTC was 445. -Haloperidol 2 mg IV Q6 -Haloperidol 2 mg IV every 4 hours as needed for ongoing agitation -Repeat EKG to reassess QTC once more calm -Recommend psych consultation for history of polysubstance abuse in the setting of acute hyperactive delirium -Please avoid benzodiazepines and anticholinergics given his hyperactive delirium Pedro Luis Waite DO 4:49 PM November 11, 2022 [facility] 11-11-2022 Note HNO ID: [id number] Author: Zoraida Perez RN Service: Care Management Author Type: Registered Nurse Type: Care Mgt Progress Note Filed: 11/11/2022 2:54 PM Note Text: CARE MANAGEMENT WEEKEND PLANNING NOTE DISCHARGE OR POSSIBLE DISCHARGE Date/Time: Monday Disposition: Pt is accepted by [facility], however he declines Home Care. He stated: I don't need home care this time, I have an account with [facility] for supplies, I know what I am doing with it, and my girlfriend can help me. Transport: Girlfriend to assist at wi Weekend [place] Pager #: Gabby Weeks [phone] SIGNATURE: Zoraida Perez RN PATIENT NAME: Hoang White DATE: November 11, 2022 TIME: 2:51 PM PAGER/CONTACT #: [phone] [facility] 11-11-2022 Note HNO ID: [id number] Author: Diego Osorio MD Service: Colorectal Author Type: Resident Type: Progress Notes Filed: 11/11/2022 8:40 AM Note Text: Attestation signed by Ana Enriquez MD at 11/11/2022 8:23 PM [employer] STAFF PHYSICIAN NOTE OF PERSONAL INVOLVEMENT IN CARE I have reviewed the history and physical exam obtained and documented by the resident and I personally participated in the rubin components. I have confirmed and edited as necessary, the PFSH and ROS obtained by others. I have discussed the case and management of the patient's care. The following comments revise or confirm relevant rubin components of the note. 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 These were discussed with his partner Elsa williamson. Ana Enriquez MD Date of Service: November 11, 2022 COLORECTAL SURGERY PROGRESS NOTE Hoang White [id number] ASSESSMENT AND PLAN Hoang White is a 47 year old male with PMH of rectal cancer who underwent a robotic LAR with DLI on 11/07. Post operative course uncomplicated. - GI soft - appreciate pain management recs - PO tylenol, gabapentin - hLIV replete lytes prn - OOB as tolerated, encourage ambulation - Encourage incentive spirometry - No abx indicated - SCDS + lovenox for dvt ppx - protonix for gi ppx - no glycemic issues - continue home statin and synthroid - plan for DC tomorrow Diego Osorio MD [phone] Patient Active Hospital Problem List: Rectal cancer (HCC) (02/21/2022) Severe protein-calorie malnutrition (HCC) (02/22/2022) SUBJECTIVE No acute events overnight Feels better now that suboxone is ordered Ambulating with assistance Tolerating diet without nausea or emesis Denies any issues voiding Ostomy with gas + stool OBJECTIVE: BP 143/80 Pulse 62 Temp 36.7 ?C (98.1 ?F) (Oral) Resp 16 Ht 172.7 cm (5' 8 ) Wt 64.9 kg (143 lb) SpO2 96% BMI 21.74 kg/m? Body mass index is 21.74 kg/m?. GENERAL: Alert and oriented, no acute distress, cooperative. CV: RRR LUNGS: Non labored breathing ABDOMEN: soft, appropriately tender, non distended, les ss, ostomy pink and viable with gas + stool WOUND: incisions c/d/I with surgical glue Labs: CBC, Coags, BMP, Mg, Phos Recent Labs 11/09/22 0552 WBC 9.66 HB 12.1* HCT 35.0* PLT 167 NA 140 K 4.2 CHLOR 106* CO2 24 BUN 14 CREAT 0.82 GLUC 98 CA 8.7 MG 1.8 Liver Function, Amylase, AND Lipase I/O past 24h: Intake/Output Summary (Last 24 hours) at 11/11/2022 0840 Last data filed at 11/11/2022 0830 Gross per 24 hour Intake 200 ml Output 1750 ml Net -1550 ml LDA: Lines, Drains, and Airways Line Duration Peripheral 11/07/22 2140 Right Hand 22 Gauge 3 days Subcutaneous 11/09/22 Peripheral Nerve Block Left Abdomen 2 days Subcutaneous 11/09/22 Peripheral Nerve Block Right Abdomen 2 days Drain Duration Drain/Tube 11/07/222028 Herb Uriostegui Right Lower Quadrant Abdomen Drain #1 3 days Small Bowel Ostomy 11/07/22 LLQ 3 days SURGERY/PROCEDURE: Procedure(s) and Anesthesia Type: * ROBOTIC LAPAROSCOPIC PROCTECTOMY COMPLETE W/ ABDOMINOPERINEAL W/COLOSTOMY - [facility] 11-10-2022 Note HNO ID: [id number] Author: Zoraida Perez RN Service: Care Management Author Type: Registered Nurse Type: Care Mgt Initial Assessment Filed: 11/10/2022 2:08 PM Note Text: CARE MANAGEMENT: ASSESSMENT AND DISCHARGE PLAN SERVICE DATE: November 10, 2022 SERVICE TIME: 2:00 PM PRIMARY CARE PHYSICIAN: Shaikh Kia MD Primary Contact: Extended Emergency Contact Information Primary Emergency Contact: Elsa Ribera Mobile Relation: Significant other ADMISSION STATUS: Inpatient Insurance Provider: [employer] PPO NEEDS PRIOR TO DISCHARGE Needs Prior to Discharge: To Be Determined POTENTIAL TRANSITION PLANS Patient's perception of need for this admission: surgery for rectal cancer ADVANCE DIRECTIVES Current Advance Directive: None Needle Punch Operator Attempted to Assist with AD Completion: Yes Action: Patient Unwilling MS/BEHAVIOR Baseline Mental Status Prior to this Illness what was the patient's Baseline Mental Status?: Alert AND Oriented Prior to this illness, has anyone described the patient having any of the following behaviors?: Disturbed Sleep;Agitation Relationship of the informant to the patient:: Self READMISSION Last Discharge Date: 02/24/22 Is this Within the Past 30 days? PATIENT SCREEN CAREGIVER ASSESSMENT Caregiver is ready, willing and able to meet the patient's needs as recommended by the inter-professional team:: Other: See Comment Name of Caregiver: Pt declined [facility] FREEDOM OF CHOICE EXPLAINED: yes, declined [facility] Are you interested in bedside delivery of your medications? No ASSESSMENT AND PLAN: The pt is a 47 yom, rectal cancer who underwent a robotic LAR with DLI on 11/07. This CM attempted to speak to the pt Tuesda and he stated he did not feel like talking. This CM met with the pt at the bedside for assessment today. Pt is alert and oriented x3. The pt declined [facility], he states he has an account with [facility] for ostomy supplies, he know what he is doing and his SO will assist him if needed. He declined to answer further questions for this assessment. He states, I am worried about my health I don't care about what Insurance I have. SIGNATURE: Zoraida Perez RN PATIENT NAME: Hoang White DATE: November 10, 2022 TIME: 2:00 PM CONTACT #: [phone] [facility] 11-10-2022 Note HNO ID: [id number] Author: Bouchra Thompson APRN.FILE CONVERSION OPERATOR Service: Colorectal Author Type: Nurse Practitioner Type: Progress Notes Filed: 11/10/2022 3:31 PM Note Text: COLORECTAL SURGERY PROGRESS NOTE Hoang White [id number] ASSESSMENT AND PLAN Hoang White is a 47 year old male with PMH of rectal cancer who underwent a robotic LAR with DLI on 11/07. POD3 - doing well, tolerating GI soft, ostomy functioning, pain is controlled. Pt subjectively reports withdrawing without his suboxone this AM on rounds thus this is reordered. - GI soft - Kirkpatrick removed overnight, awaiting void - Suboxone - PO tylenol, gabapentin, oxycodone. Add flexeril - hLIV replete lytes prn - OOB as tolerated, encourage ambulation - Encourage incentive spirometry - No abx indicated - SCDS + lovenox for dvt ppx - protonix for gi ppx - no glycemic issues - continue home statin and synthroid Nikki Viveros MD General Surgery PGY-2 [place] [facility] Pagers Green (General Surgery) - [phone] [place] (Hepatobiliary, Breast, Bariatric) - [phone] Blue (Colorectal) - [phone] Red (Vascular) - [phone] Pediatric Surgery - [id number] [facility] Night/Weekend On-call - [phone] Please kindly include urgency and call-back number for all pages Addendum 1525 Informed by nursing staff that the patient has urinated only a small amount since the catheter has been removed at ~530 this AM, documented 100mL. The most recent bladder scan is 370mL per nursing report. I spoke with the patient my concern regarding urinary retention causing him abdominal pain, pressure, and an overfilled bladder causing swelling of the surrounding tissues and potentially hydronephrosis is he is unable to drain his bladder in an adequate amount of time. He is complaining of lower abdominal pain and pressure. I offered either a straight catheterization vs replacing the kirkpatrick neither of which he wanted to pursue. He asked to attempt to empty his bladder again. Informed bedside nursing to keep the team informed. Bouchra Thompson, FIELD AGENT.FILE CONVERSION OPERATOR Patient Active Hospital Problem List: Rectal cancer (HCC) (02/21/2022) Severe protein-calorie malnutrition (HCC) (02/22/2022) OBJECTIVE: BP 133/87 Pulse 62 Temp 36.4 ?C (97.5 ?F) (Oral) Resp 18 Ht 172.7 cm (5' 8 ) Wt 64.9 kg (143 lb) SpO2 98% BMI 21.74 kg/m? Body mass index is 21.74 kg/m?. GENERAL: Alert and oriented, no acute distress, cooperative. CV: RRR LUNGS: Non labored breathing ABDOMEN: soft, appropriately tender, non distended, les ss, ostomy pink and viable with gas + stool WOUND: incisions c/d/I with surgical glue Labs: CBC, Coags, BMP, Mg, Phos Recent Labs 11/09/22 0552 11/08/22 0559 WBC 9.66 12.39* HB 12.1* 13.8 HCT 35.0* 38.7* PLT 167 207 NA 140 138 K 4.2 4.0 CHLOR 106* 102 CO2 24 23 BUN 14 11 CREAT 0.82 0.78 GLUC 98 140* CA 8.7 8.9 MG 1.8 1.7 Liver Function, Amylase, AND Lipase I/O past 24h: Intake/Output Summary (Last 24 hours) at 11/10/2022 0839 Last data filed at 11/10/2022 0530 Gross per 24 hour Intake 840 ml Output 3390 ml Net -2550 ml LDA: Lines, Drains, and Airways Line Duration Peripheral 11/07/22 2140 Right Hand 22 Gauge 2 days Subcutaneous 11/09/22 Peripheral Nerve Block Left Abdomen 1 day Subcutaneous 11/09/22 Peripheral Nerve Block Right Abdomen 1 day Drain Duration Drain/Tube 11/07/222028 Herb Uriostegui Right Lower Quadrant Abdomen Drain #1 2 days Small Bowel Ostomy 11/07/22 LLQ 2 days SURGERY/PROCEDURE: Procedure(s) and Anesthesia Type: * ROBOTIC LAPAROSCOPIC PROCTECTOMY COMPLETE W/ ABDOMINOPERINEAL W/COLOSTOMY - [facility] 11-09-2022 Note HNO ID: [id number] Author: Lois Ureña DO Service: Pain Management Author Type: Resident Type: Anesthesia Procedure Notes Filed: 11/09/2022 12:31 PM Note Text: Attestation signed by Zara Davison DO at 11/09/2022 1:08 PM ATTENDING PHYSICIAN NOTE OF PERSONAL INVOLVEMENT IN CARE: I was personally present for the entire duration of the procedure. I have reviewed the resident physician's documentation and verified the findings in the note as written. Signature: Zara Davison DO Date: November 09, 2022 Time: 1:08 PM ANESTHESIOLOGY PROCEDURE NOTE Peripheral Nerve Block General Information Procedure Start Time/Medication Administration: 11/09/2022 11:26 AM Procedure End time: 11/09/2022 11:40 AM Patient location during procedure: [place] (On [facility]) Timeout Performed Pre-procedure: timeout performed Consent Obtained: Yes Patient identity confirmed: arm band, patient and care hospitality team member Reason for block: post-op pain management/at surgeon's request Staffing Anesthesiologist: Zara Davison DO Resident: Lois Ureña DO Performed by: anesthesiologist and resident Preparation Sterility Preparation: hand hygiene performed prior to procedure, sterile gloves, drapes, and procedure tray, surgical cap used, mask used, sterile drape used during line insertion, skin prep agent completely dried prior to procedure Sterility Technique Not Completely Performed Due to Extreme Emergency: No Site Prep: Chloraprep Pre-Procedure Neuro Exam Location: ABDOMEN Sensory: intact Motor: intact Procedure Details Patient Position: supine Monitoring: Pulse OX, EKG and NIBP Block Type Trunk: TAP block Laterality: bilateral Injection Technique: catheter Ultrasound Guided: Yes Image in Chart: yes Needle Needle Type: Tuohy Needle Gauge: 18 G Needle Length: 10 cm Needle Localization: anatomical landmarks and ultrasound Catheter Type: open end Catheter Size: 20 G Catheter at Skin Depth: 7 (Right side) cm Needle Insertion Depth: 4 cm Multiple Catheters Used: Yes Second Catheter at Skin Depth: 7 (Left side) cm Assessment Injection assessment: negative aspiration, no paresthesia on injection, incremental injection and local visualized surrounding nerve on ultrasound Paresthesia: none Post-Procedure Neuro Exam Expected Regional Anesthesia: Yes Comments Ropivacaine 0.25% 20 ml per side SIGNATURE: Lois Ureña DO PATIENT NAME: Hoang White DATE: November 09, 2022 TIME: 12:23 PM CSN: [id number] [facility] 11-09-2022 Note HNO ID: [id number] Author: Diego Osorio MD Service: Colorectal Author Type: Resident Type: Progress Notes Filed: 11/09/2022 10:14 AM Note Text: Attestation signed by Ana Enriquez MD at 11/09/2022 10:49 AM [employer] STAFF PHYSICIAN NOTE OF PERSONAL INVOLVEMENT IN CARE I have reviewed the history and physical exam obtained and documented by the resident and I personally participated in the rubin components. I have confirmed and edited as necessary, the PFSH and ROS obtained by others. I have discussed the case and management of the patient's care. Ana Enriquez MD Date of Service: November 09, 2022 COLORECTAL SURGERY PROGRESS NOTE Hoang White [id number] ASSESSMENT AND PLAN Hoang White is a 47 year old male with PMH of rectal cancer who underwent a robotic LAR with DLI on 11/07. Post operative course remains uncomplicated. - GI soft - PO tylenol, gabapentin, oxycodone. Add flexeril - hLIV replete lytes prn - OOB as tolerated, encourage ambulation - Encourage incentive spirometry - No abx indicated - continue kirkpatrick -> DC kirkpatrick at midnight, strict I/os, maintain LES - SCDS + lovenox for dvt ppx - protonix for gi ppx - no glycemic issues - continue home statin and synthroid Diego Osorio MD [phone] Patient Active Hospital Problem List: Rectal cancer (HCC) (02/21/2022) Severe protein-calorie malnutrition (HCC) (02/22/2022) SUBJECTIVE: No acute events overnight. No nausea or vomiting Ostomy with gas + stool Les ss Endorses some muscle soreness OBJECTIVE: BP 128/69 Pulse 66 Temp 36.9 ?C (98.4 ?F) (Oral) Resp 16 Ht 172.7 cm (5' 8 ) Wt 64.9 kg (143 lb) SpO2 99% BMI 21.74 kg/m? Body mass index is 21.74 kg/m?. GENERAL: Alert and oriented, no acute distress, cooperative. CV: RRR LUNGS: Non labored breathing ABDOMEN: soft, appropriately tender, non distended, les ss, ostomy pink and viable with gas + stool WOUND: incisions c/d/I with surgical glue Labs: CBC, Coags, BMP, Mg, Phos Recent Labs 11/09/22 0552 11/08/22 0559 WBC 9.66 12.39* HB 12.1* 13.8 HCT 35.0* 38.7* PLT 167 207 NA 140 138 K 4.2 4.0 CHLOR 106* 102 CO2 24 23 BUN 14 11 CREAT 0.82 0.78 GLUC 98 140* CA 8.7 8.9 MG 1.8 1.7 Liver Function, Amylase, AND Lipase I/O past 24h: Intake/Output Summary (Last 24 hours) at 11/09/2022 1013 Last data filed at 11/09/2022 0836 Gross per 24 hour Intake 2785 ml Output 3525 ml Net -740 ml LDA: Lines, Drains, and Airways Line Duration Peripheral 11/07/22 2140 Right Hand 22 Gauge 1 day Drain Duration Drain/Tube 11/07/222028 Herb Uriostegui Right Lower Quadrant Abdomen Drain #1 1 day Indwelling Urinary Catheter 11/07/22 1620 Kirkpatrick 16 Fr 1 day Small Bowel Ostomy 11/07/22 LLQ 1 day SURGERY/PROCEDURE: Procedure(s) and Anesthesia Type: * ROBOTIC LAPAROSCOPIC PROCTECTOMY COMPLETE W/ ABDOMINOPERINEAL W/COLOSTOMY - [facility] 11-08-2022 Note HNO ID: [id number] Author: Diego Osorio MD Service: Colorectal Author Type: Resident Type: Progress Notes Filed: 11/08/2022 9:57 AM Note Text: Attestation signed by Ana Enriquez MD at 11/08/2022 6:55 PM [employer] STAFF PHYSICIAN NOTE OF PERSONAL INVOLVEMENT IN CARE I have reviewed the history and physical exam obtained and documented by the resident and I personally participated in the rubin components. I have confirmed and edited as necessary, the PFSH and ROS obtained by others. I have discussed the case and management of the patient's care. Ana Enriquez MD Date of Service: November 08, 2022 COLORECTAL SURGERY PROGRESS NOTE Hoang White [id number] ASSESSMENT AND PLAN Hoang White is a 47 year old male with PMH of rectal cancer who underwent a robotic LAR with DLI on 11/07. - CLD - PO tylenol, gabapentin. Toradol + STUDENT FINANCIAL SERVICES COUNSELOR for pain - mIVF until tolerating sufficient PO, replete lytes prn - OOB as tolerated, encourage ambulation - Encourage incentive spirometry - No abx indicated - continue kirkpatrick, strict I/os, maintain LES - SCDS + lovenox for dvt ppx - protonix for gi ppx - no glycemic issues - continue home statin and synthroid Diego Osorio MD [phone] Patient Active Hospital Problem List: Rectal cancer (HCC) (02/21/2022) SUBJECTIVE: No acute events overnight. Pain controlled. No nausea or vomiting Ostomy with bowel sweat LES ss OBJECTIVE: BP 133/71 Pulse 68 Temp 36.8 ?C (98.2 ?F) (Oral) Resp 16 Ht 172.7 cm (5' 8 ) Wt 64.9 kg (143 lb) SpO2 96% BMI 21.74 kg/m? Body mass index is 21.74 kg/m?. GENERAL: Alert and oriented, no acute distress, cooperative. CV: RRR LUNGS: Non labored breathing ABDOMEN: soft, appropriately tender, non distended, les ss, ostomy pink and viable with bowel sweat WOUND: incisions c/d/I with surgical glue Labs: CBC, Coags, BMP, Mg, Phos Recent Labs 11/08/22 0559 WBC 12.39* HB 13.8 HCT 38.7* PLT 207 NA 138 K 4.0 CHLOR 102 CO2 23 BUN 11 CREAT 0.78 GLUC 140* CA 8.9 MG 1.7 Liver Function, Amylase, AND Lipase I/O past 24h: Intake/Output Summary (Last 24 hours) at 11/08/2022 0953 Last data filed at 11/08/2022 0532 Gross per 24 hour Intake 3105 ml Output 1765 ml Net 1340 ml LDA: Lines, Drains, and Airways Line Duration Peripheral 11/07/22 2140 Right Hand 22 Gauge <1 day Drain Duration Drain/Tube 11/07/222028 Herb Uriostegui Right Lower Quadrant Abdomen Drain #1 <1 day Indwelling Urinary Catheter 11/07/22 1620 Kirkpatrick 16 Fr <1 day Small Bowel Ostomy 11/07/22 LLQ <1 day SURGERY/PROCEDURE: Procedure(s) and Anesthesia Type: * ROBOTIC LAPAROSCOPIC PROCTECTOMY COMPLETE W/ ABDOMINOPERINEAL W/COLOSTOMY - [facility] 11-08-2022 Note HNO ID: [id number] Author: Maximo Alarcon MD Service: General Surgery Author Type: Resident Type: Plan of Care Filed: 11/08/2022 4:19 AM Note Text: COLORECTAL SURGERY POST OP CHECK NOTE Hoang White November 08, 2022 4:17 AM 1 Day Post-Op : Robotic Low Anterior Resection with Colorectal Anastomosis, Diverting Loop ileostomy; Flexible Sigmoidoscopy ASSESSMENT/PLAN: Continue routine post-op care SUBJECTIVE: Pt denies n/v, chest pain, SOB, dizziness, UOP appropriate, denies flatus. Pain appropriately managed on current regimen, but states that whenever he falls asleep, he wakes back up in pain. Controlled when he is awake and able to press the button. OBJECTIVE: BP 142/78 Pulse 83 Temp 37 ?C (98.6 ?F) (Oral) Resp 16 Ht 172.7 cm (5' 8 ) Wt 64.9 kg (143 lb) SpO2 98% BMI 21.74 kg/m? General: Resting comfortably in bed, awake, answering questions appropriately Respiratory: No increased work of breathing on RA Cardiac: normal rate Abd: Soft, non-distended, healthy appearing stoma in place with a good seal of the stoma appliance Ext: Warm, well perfused Drains: JPx1 debra NAVARRO MD General Surgery PGY-1 On-Call pager: [phone] [facility] 11-08-2022 Note HNO ID: [id number] Author: Phyllis Claros RN Service: Nursing Author Type: Registered Nurse Type: Nursing Progress Note Filed: 11/07/2022 10:26 PM Note Text: 1015: Dr. Osorio paged d/t pt's complaints of pain, STUDENT FINANCIAL SERVICES COUNSELOR dose increased [facility] 11-07-2022 Note HNO ID: [id number] Author: Rowena Martinez APRN.CRNA Service: Anesthesiology Author Type: Nurse Manager Professional Development Type: Anesthesia Procedure Notes Filed: 11/07/2022 5:07 PM Note Text: ANESTHESIOLOGY PROCEDURE NOTE Gastric Tube General Information Procedure Start Time/Medication Administration: 11/07/2022 4:00 PM Patient location during procedure: OR Patient identity confirmed: arm band Indication: gastric decompression Staffing PIPE ORGAN MECHANIC: Rowena Martinez APRN.PIPE ORGAN MECHANIC Performed by: LILI Procedure Details Type: Orogastric tube Cortrak monitor used: No Size: 18 Fr cm Distance Advanced: 50 cm Initial Auscultation Appears Confirmatory: Yes Successful Placement: yes Post-Procedure Details SIGNATURE: Rowena Martinez APRN.CRNA PATIENT NAME: Hoang White DATE: November 07, 2022 TIME: 5:06 PM CSN: [id number] [facility] 11-07-2022 Note HNO ID: [id number] Author: Rowena Martinez APRN.CRNA Service: Anesthesiology Author Type: Nurse Manager Professional Development Type: Anesthesia Procedure Notes Filed: 11/07/2022 5:06 PM Note Text: ANESTHESIOLOGY PROCEDURE NOTE PIV General Information Procedure Start Time/Medication Administration: 11/07/2022 3:55 PM Patient Location: OR Staffing Performed by: anesthesiologist Preparation Sterility Preparation: hand hygiene performed prior to procedure Site Prep: chlorhexidine Procedure Details Indication: need for IV access Needle Size/Type: 18 gauge angiocath Orientation: Right Location: Antecubital Imaging Guidance Used: No SIGNATURE: Rowena Martinez APRN.CRNA PATIENT NAME: Hoang White DATE: November 07, 2022 TIME: 5:06 PM CSN: [id number] [facility] 11-07-2022 Note HNO ID: [id number] Author: Rowena Martinez APRN.CRNA Service: Anesthesiology Author Type: Nurse Manager Professional Development Type: Anesthesia Procedure Notes Filed: 11/07/2022 5:06 PM Note Text: ANESTHESIOLOGY PROCEDURE NOTE Airway General Information Procedure Start Time/Medication Administration: 11/07/2022 3:49 PM Patient location during procedure: OR Patient identity confirmed: patient Staffing PIPE ORGAN MECHANIC: Rowena Martinez APRN.PIPE ORGAN MECHANIC Performed by: PIPE ORGAN MECHANIC Indications and Patient Condition Indications for airway management: anesthesia Preoxygenated: yes anesthesia circuit Patient position: sniffing Method: asleep Difficult Mask: No Final Airway Details Final airway type: endotracheal airway Final Endotracheal Airway: ETT Cuffed: yes Successful intubation technique: direct laryngoscopy Devices used: intubating stylet Endotracheal tube insertion site: oral Blade: Al Blade size: #4 ETT size (mm): 8.0 Measured from: lips Measurement (cm): 23 Placement verified by: capnometry Cormack-Lehane Classification: grade I - full view of glottis Number of attempts at approach: 1 Failed airway: no Unrecognized esophageal intubation: no Airway not difficult SIGNATURE: Rowena Martinez APRN.PIPE ORGAN MECHANIC PATIENT NAME: Hoang White DATE: November 07, 2022 TIME: 5:05 PM CSN: [id number] [facility] 11-07-2022 Note HNO ID: [id number] Author: Lois Ureña DO Service: Pain Management Author Type: Resident Type: Anesthesia Procedure Notes Filed: 11/07/2022 4:07 PM Note Text: Attestation signed by Zara Davison DO at 11/09/2022 1:08 PM ATTENDING PHYSICIAN NOTE OF PERSONAL INVOLVEMENT IN CARE: I was personally present for the entire duration of the procedure. I have reviewed the resident physician's documentation and verified the findings in the note as written. Signature: Zraa Davison DO Date: November 09, 2022 Time: 1:08 PM ANESTHESIOLOGY PROCEDURE NOTE Peripheral Nerve Block General Information Procedure Start Time/Medication Administration: 11/07/2022 3:56 PM Procedure End time: 11/07/2022 4:00 PM Patient location during procedure: OR Timeout Performed Pre-procedure: timeout performed Consent Obtained: Yes Patient identity confirmed: arm band and care hospitality team member Reason for block: post-op pain management/at surgeon's request Staffing Anesthesiologist: Zara Davison DO Resident: Lois Ureña DO Performed by: anesthesiologist and resident Preparation Sterility Preparation: hand hygiene performed prior to procedure, sterile gloves, drapes, and procedure tray, surgical cap used, mask used, sterile drape used during line insertion, skin prep agent completely dried prior to procedure Sterility Technique Not Completely Performed Due to Extreme Emergency: No Site Prep: Chloraprep Pre-Procedure Neuro Exam Location: TRUNK Sensory: other and Patient under general anesthesia Motor: other and Patient under general anesthesia Procedure Details Patient Position: supine Monitoring: Pulse OX, EKG and NIBP Block Type Trunk: quadratus lumborum block Laterality: bilateral Injection Technique: single-shot Ultrasound Guided: Yes Image in Chart: yes Needle Needle Type: stimulating Needle Gauge: 21 G Needle Length: 100 mm Needle Localization: anatomical landmarks and ultrasound Assessment Injection assessment: negative aspiration, no paresthesia on injection, incremental injection and local visualized surrounding nerve on ultrasound Paresthesia: none Medications Administered Bupivacaine (PF) 0.5 % (5 mg/mL) injection, 20 mL bupivacaine liposome (PF) 1.3 % (13.3 mg/mL) injection (EXPAREL), 266 mg SIGNATURE: Lois Ureña DO PATIENT NAME: Hoang White DATE: November 07, 2022 TIME: 4:06 PM CSN: [id number] [facility] 10-28-2022 History and physical note HISTORY AND PHYSICAL EXAMINATION SERVICE DATE: 10/27/2022 SERVICE TIME: 11:45 AM PRIMARY CARE PHYSICIAN: Shaikh Kia MD REASON FOR VISIT: Hoang White is a 47 year old male who is scheduled for ROBOTIC LAPAROSCOPIC PROCTECTOMY COMPLETE W/ ABDOMINOPERINEAL W/COLOSTOMY at the request of Dr. Ana Enriquez for consultation. My final recommendation will be communicated back to the requesting physician by way of shared medical record or letter. 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 Patient was dx with rectal CA in November. Has had one resection and has completed chemo and radiation. Has elected for surgical intervention to get rid of residual tumor. PAST MEDICAL HISTORY Diagnosis Date Adenocarcinoma of colon (HCC) Endocarditis 2003 Hypothyroidism Mass of colon [address] Jaquez PAST SURGICAL HISTORY Procedure Laterality Date COLONSCOPY SCREENING HIGH RISK 2021 COLOSTOMY 02/21/2022 Laparoscopic Divided End Loop Sigmoid Colostomy EGD PAST SURGICAL HISTORY OF Right 2012 inguinal PAST SURGICAL HISTORY OF 2020 teeth pullled out FAMILY HISTORY Problem Relation Age of Onset Breast Cancer Sister Colon Cancer Maternal Grandfather SOCIAL HISTORY: Social History Tobacco Use Smoking status: Every Day Packs/day: 0.50 Years: 25.00 Pack years: 12.50 Types: Cigarettes Smokeless tobacco: Never Tobacco comments: Less than half a pack Vaping Use Vaping Use: Never used Substance Use Topics Alcohol use: Yes Comment: 2 drinks/week; heavy in past Drug use: Not Currently Types: IV Comment: Past drug use of herorin MEDICATIONS: Prior to Admission medications as of 10/13/22 6955 Medication Sig Last Dose Taking buPROPion XL (WELLBUTRIN XL) 300 mg 24 hr tablet Take 1 tablet by mouth once daily. Take wellbutrin 150 mg tablet daily for 5 days before starting 300 mg dose daily Taking Yes nicotine (NICODERM) 21 mg/24 hr Apply 1 Patch as directed every 24 hours. Taking Yes loratadine (CLARITIN) 10 mg tablet Take 10 mg by mouth once daily. Taking Yes atorvastatin (LIPITOR) 10 mg tablet Take 10 mg by mouth once daily. Taking Yes acetaminophen (TYLENOL) 500 mg tablet Take 2 tablets by mouth every 6 hours. Taking Yes levothyroxine (SYNTHROID) 125 mcg tablet Take 125 mcg by mouth once daily. Taking Yes iv contrast (will be provided with radiology test) CT ABD/PEL -Inject, intravenously, once for 1 dose.No IV access, insert saline lock prior to the beginning of sedation, infusion, injection of imaging exam. Discontinue saline lock post exam. If Pt. has a central line or IVAD, may access for administration according to line specific nursing protocol. Once exam is complete flush line and de-access according to line specific nursing protocol in the CT contrast administration guidelines link. enteric contrast (will be provided with radiology test) For CT ABD/PEL W IVCON Routine order Administer, As Directed One Time Only, via Oral, Rectal, both Oral and Rectal, Enteric Tube, Stoma or Indwelling Catheter, Enteric Contrast as designated per enteric contrast guidelines capecitabine (XELODA) 500 mg tablet Take 3 tablets (1,500 mg) by mouth twice daily for 14 days. Followed by 7 days off start with the Oxaliplatin Food Supplement, Lactose-Free (PROMOTE, OSMOLITE, TWO CADEN, ENSURE PLUS, ENLIVE) liqd Take 237 mL by mouth three times daily with meals. prochlorperazine (COMPAZINE) 10 mg tablet Take 1 tablet by mouth every 6 hours as needed. ondansetron (ZOFRAN) 8 mg tablet Take 1 tablet by mouth every 8 hours as needed for nausea/vomiting. lactobacillus rhamnosus (CULTURELLE) 10 billion cell capsule Take 1 capsule by mouth once daily. No medication comments found. CURRENT ALLERGIES: ALLERGIES No Known Allergies REVIEW OF SYSTEMS: PAIN ASSESSMENT: General: No weight loss, malaise or fevers. Neuro: No history of TIA's, stroke, VP REVENUE CYCLE tumor, impaired sensorium, hemiplegia, paraplegia or quadraplegia. No neurological symptoms or problems. Respiratory: No history of current cough or dyspnea, or pneumonia in the past 6 weeks. No history of respiratory/pulmonary symptoms or problems. Cardiovascular: Negative for Recent MT, Angina, Chest Pain, HTN, PVD +DVT 8 years ago +Endocarditis > 15 years ago +Tricuspid regurgitation GI: See HPI : No history of dysuria, frequency or incontinence,, stones or chronic kidney disease Endocrine: Hypothyroidism Hematology: No history of bleeding or clotting disorder. Pt is not taking anti-coagulation or platelet medications. No history of hematological symptoms or problems. Oncology: See HPI Psych: Anxiety, Depression Musculoskeletal: Negative for joint pain or swelling, back pain or muscle pain. Skin: Negative for lesions, rash and itching. Objective PHYSICAL EXAM: VITALS: BP 125/67 Pulse 66 Temp (Src) 97.2 (Temporal) Resp 14 Ht 5' 8 (1.73m) Wt 133 lb (60.3kg) SpO2 100% BMI 20.23 kg/(m^2). General: Alert and oriented Skin: Normal color, no rash, no lesions. HEENT: EOM, pupils equal, round and reactive. Cardiovascular: Normal S1 & S2, no rubs, murmurs or gallops. No JVD. Pulse regular. Lungs: Normal breath sounds, no wheezes or crackles. Extremities: No deformity, no edema or tenderness, no joint swelling or clubbing. Neurological: Normal cognition and motor skills. Pulses: Carotid and radial pulses normal +2. Diagnostic tests reviewed for today's visit: Lab Value Units Date High Low HB 14.6 g/dL 10/28/2022 17.0 13.0 HCT 43.0 % 10/28/2022 51.0 39.0 WBC 5.04 k/uL 10/28/2022 11.00 3.70 PLT 237 k/uL 10/28/2022 400 150 NA 139 mmol/L 10/28/2022 144 136 K 4.1 mmol/L 10/28/2022 5.1 3.7 GLUC 78 mg/dL 10/28/2022 99 74 BUN 15 mg/dL 10/28/2022 24 9 CREAT 0.89 mg/dL 10/28/2022 1.22 0.73 CREAT 1.00 mg/dL 09/26/2022 1.4 0.7 PTSEC No results within date range. INR No results within date range. APTT No results within date range. ALT 28 U/L 10/28/2022 54 10 AST 34 U/L 10/28/2022 40 14 TBILI 0.6 mg/dL 10/28/2022 1.3 0.2 TSH No results within date range. Recent Results (from the past 8760 hour(s)) ECG COMPLETE Collection Time: 02/22/22 12:34 AM Result Value Ventricular Rate 72 Atrial Rate 72 P-R Interval 175 QRS Duration 123 QT Interval 406 QTC Calculation (Bazett) 445 Calculated P [place] 46 Calculated R [place] 127 Calculated T [place] -2 Impression Sinus rhythm Right axis Nonspecific intraventricular conduction delay Abnormal ECG Confirmed by PIPPA YODER M.D. ([id number]) on 02/25/2022 9:47:37 PM Recent Results (from the past 76001 hour(s)) ECHO Collection Time: 01/17/22 1:15 PM Impression CONCLUSIONS: - Exam indication: Murmur - The left ventricle is normal in size. Left ventricular systolic function is normal. EF = 60 5% (2D biplane) Normal left ventricular diastolic function. Normal left atrial size. - Severe right atrial and ventricular dilatation. Right ventricular systolic function is normal including normal RV global strain (-24.0%). - Severe tricuspid regurgitation with hepatic vein systolic reversal. Leaflets thickened without obvious active vegetation. - Diastolic flattening of interventricular septum consistent with RV volume overload. - RVOT AT suggests normal mean PA pressures. - The patient has not had a prior CC echocardiographic exam for comparison. * * * Final * * * Assessment/Plan History of intravenous drug abuse (HCC) Assessment: Sober x 7 years per patient Rx suboxone- very rare use Hypothyroidism unspecified Assessment: Stable on synthroid Smoker Assessment: Intermittent smoking Severe tricuspid regurgitation Assessment: Per cardiology to talk about possible surgical intervention after CA procedures See OV note History of endocarditis Assessment: d/t IVDU Medical management >15 years ago DVT (deep venous thrombosis) ([facility]) Assessment: remote hx Treated with 6 months of anticoagulants METS: Do moderate work around the house such as vacuuming, sweeping floors, or carrying in groceries (3.50 METs) Climb a flight of stairs or walk up a hill (5.50 METs) Participate in moderate recreational activities, such as golf, bowling, dancing, doubles tennis, or throwing a baseball or football (6.00 METs) Patient denies any chest pain or undue shortness of breath with the above physical activity. ASA Class: 3 ANESTHESIA FINDINGS: Intubation History: No history of difficult intubation Significant Anesthesia Considerations: None Airway Exam: General: Normal appearance Mallampati Score is CLASS I ULBT: Class I - Lower incisors can bite the upper lip above the diallo line Neck: Normal appearance and function, Distance from hyoid to mentum during neck extension is at least 3 finger breaths Mouth: Normal tongue size and Mouth opening greater than 2 finger breaths Dentition: Upper denture Airway History: No abnormal airway history STOP BANG Score: Criteria: Male gender Score = 1 PLAN This patient is optimally prepared for surgery pending LABS. CONSULTS: Patient does not require consults for optimization at this time. The Following Tests/Procedures Have Been Initiated: Orders Placed This Encounter CBC with Differential Standing Status: Future Number of Occurrences: 1 Standing Expiration Date: 12/28/2022 BMP Standing Status: Future Number of Occurrences: 1 Standing Expiration Date: 12/28/2022 Type and Screen, 30 day Standing Status: Future Number of Occurrences: 1 Standing Expiration Date: 12/28/2022 Planned Anesthetic: General Instructions Given to Patient: Instructions located in the after visit summary. Patient given verbal and written preop instructions and voices comprehension and compliance. SIGNATURE: Juliana Peterson APRN.CNP PATIENT NAME: Hoang White DATE: October 27, 2022 TIME: 11:47 AM documented in this encounter [facility] 10-27-2022 Instructions Juliana Peterson APRN.CNP - 10/27/2022 11:39 AM EST PATIENT PREOPERATIVE INSTRUCTIONS Ana Enriquez MD has scheduled you for your procedure at this surgery center: [facility]: [phone] --[phone] [id number]. Please check in on the 1st floor at registration desk 6. Please read below carefully for your personalized instructions. Dietary Restrictions: - No solid food after midnight. - You may have 12 ounces of clear liquids (water, clear juices such as apple juice or gatorade, carbonated beverages, clear tea, black coffee, jello) until 2 hours before scheduled arrival at facility. Medications: Unless instructed differently below, stay on all of your medications until your surgery. Approved medications to take the morning of surgery with a sip of water: Wellbutrin, atorvastatin, levothyroxine, If you take any medications for erectile dysfunction-Cialis (Tadalafil), Levitra, Staxyn (Vardenafil) Viagra (Sildenenafil please do not take these for 48 hours before surgery. If you start any new medications after today's visit, please contact the surgeon's office. Blood Thinning Medications: - Stop NSAIDS (Ibuprofen, Advil, Aleve, Motrin, Celebrex, Mobic, etc.) 7 days before surgery, as directed by your surgeon. - Stop Aspirin 7 days before surgery, as directed by your surgeon. - Stop Vitamin E, ALL multi-vitamins, herbals and dietary supplements 7 days before surgery. - You may take Tylenol (Acetaminophen) or any of your pain medications that do not contain aspirin or NSAIDS as needed. Important Reminders: - Candy, mints, and tobacco products are NOT permitted the morning of surgery. - Hearing aids, dentures and glasses may be worn the morning of surgery. - NO jewelry, body piercings, makeup, hairpins or contacts are to be worn the day of surgery. If you develop symptoms such as a fever, cold, or flu, or have other changes to your health within TWO DAYS of scheduled surgery or the morning of surgery, please contact the surgery center above. Personal Belongings: -Please have photo ID and insurance cards. -If you do not have a copy of advance directives on file with us, please bring a copy with you on the day of surgery. - Leave ALL valuables and money at home or with family members. Arrival Time for Surgery: - The Surgery Center or hospital where you are having surgery will call the afternoon before surgery (or Monday for Monday surgery) with a scheduled arrival time. - If you have not heard by 4 pm, please contact the surgery center above. Please be aware that emergency situations arise, which may delay or change your surgical time. If this happens, we will notify you as soon as possible and regret any inconvenience. If you already have an Advance Directive, please fax a copy to [phone] or email to for it to be added to your chart. If you do not have an Advance Directive, you can find the appropriate form and more information at [email or web address]. We recommend that you complete the Advance Directive form found on the website and bring it with you the day of your surgery. It can be witnessed and scanned into your chart that day. Juliana Peterson APRN.CNP documented in this encounter [facility] 10-17-2022 Note HNO ID: [id number] Author: RT Torsten(R) Service: ? Author Type: Technologist Type: Progress Notes Filed: 10/17/2022 12:29 PM Note Text: RADIOLOGY SERVICE PROGRESS NOTE SERVICE DATE: 10/17/2022 SERVICE TIME: 12:28 PM PATIENT IDENTITY VERIFICATION COMPLETED USING TWO (2) STANDARD IDENTIFIERS: Name and Date of confirmed by patient verbally FALL SCREENING: Has the patient had 2 falls in the last year or 1 fall with injury or currently using an Ambulatory Assistive Device (Walker, Cane, Wheelchair, Crutches, etc.)? No PATIENT GENDER DATA: .male ALLERGIES: Reviewed and unchanged MEDICATIONS REVIEWED: Not applicable PATIENT RELEVANT IMPLANT DATA REVIEWED: Not Applicable CREATININE: Creatinine Date Value Ref Range Status 08/26/2022 0.67 (L) 0.73 - 1.22 mg/dL Final 08/05/2022 0.68 (L) 0.73 - 1.22 mg/dL Final Creatinine (POCT) Date Value Ref Range Status 09/26/2022 1.00 0.7 - 1.4 mg/dL Final eGFR (POCT) Date Value Ref Range Status 09/26/2022 >60 mL/min/1.73 m2 Final P.O.C.T. RESULTS: N/A October 17, [address] PERFORMED: Yes. RADIOLOGIST NOTIFIED?: No CONTRAST ALLERGY: NO. PREMEDICATED: Not applicable CONTRAST: IV 125 ml IV contrast (300) given and Oral Omnipaque 240 DIABETIC PATIENT: Not applicable IV SITE: Ambulatory: A peripheral IV was started in the Right forearm with a Angio cath: 22 gauge. POST EXAM PIV STATUS: Discontinued PROCEDURE TYPE: CT Abdomen/Pelvis with contrast PATIENT DISCHARGED TO: Ambulatory patient, left [place] department area. A Diagnostic radioactive procedure has taken place, with no further precautions necessary other than routine body substance precautions. More information regarding radiation safety can be found using this link: [email or web address] [email or web address] SIGNATURE: Beverly Peguero RT(R) PATIENT NAME: Hoang White DATE: October 17, 2022 TIME: 12:28 PM PAGER/CONTACT #: [facility] 10-13-2022 History and physical note PROCEDURAL SEDATION HISTORY AND PHYSICAL EXAM SERVICE DATE: 10/13/2022 SERVICE TIME: 2:29 PM Subjective HPI: This is a 47 year old male who presents for flexible sigmoidoscopy. PAST ANESTHESIA HISTORY: PAST MEDICAL HISTORY Diagnosis Date Adenocarcinoma of colon (HCC) Endocarditis 2003 Hypothyroidism Mass of colon [address] Jaquez PAST SURGICAL HISTORY Procedure Laterality Date COLONSCOPY SCREENING HIGH RISK 2021 COLOSTOMY 02/21/2022 Laparoscopic Divided End Loop Sigmoid Colostomy EGD PAST SURGICAL HISTORY OF Right 2011 inguinal PAST SURGICAL HISTORY OF 2019 teeth pullled out Prior to Admission medications as of 10/05/22 1022 Medication Sig Last Dose Taking iv contrast (will be provided with radiology test) CT ABD/PEL -Inject, intravenously, once for 1 dose.No IV access, insert saline lock prior to the beginning of sedation, infusion, injection of imaging exam. Discontinue saline lock post exam. If Pt. has a central line or IVAD, may access for administration according to line specific nursing protocol. Once exam is complete flush line and de-access according to line specific nursing protocol in the CT contrast administration guidelines link. enteric contrast (will be provided with radiology test) For CT ABD/PEL W IVCON Routine order Administer, As Directed One Time Only, via Oral, Rectal, both Oral and Rectal, Enteric Tube, Stoma or Indwelling Catheter, Enteric Contrast as designated per enteric contrast guidelines buPROPion XL (WELLBUTRIN XL) 300 mg 24 hr tablet Take 1 tablet by mouth once daily. Take wellbutrin 150 mg tablet daily for 5 days before starting 300 mg dose daily capecitabine (XELODA) 500 mg tablet Take 3 tablets (1,500 mg) by mouth twice daily for 14 days. Followed by 7 days off start with the Oxaliplatin Food Supplement, Lactose-Free (PROMOTE, OSMOLITE, TWO CADEN, ENSURE PLUS, ENLIVE) liqd Take 237 mL by mouth three times daily with meals. prochlorperazine (COMPAZINE) 10 mg tablet Take 1 tablet by mouth every 6 hours as needed. nicotine (NICODERM) 21 mg/24 hr Apply 1 Patch as directed every 24 hours. ondansetron (ZOFRAN) 8 mg tablet Take 1 tablet by mouth every 8 hours as needed for nausea/vomiting. loratadine (CLARITIN) 10 mg tablet Take 10 mg by mouth once daily. atorvastatin (LIPITOR) 10 mg tablet Take 10 mg by mouth once daily. acetaminophen (TYLENOL) 500 mg tablet Take 2 tablets by mouth every 6 hours. lactobacillus rhamnosus (CULTURELLE) 10 billion cell capsule Take 1 capsule by mouth once daily. levothyroxine (SYNTHROID) 125 mcg tablet Take 125 mcg by mouth once daily. ALLERGIES No Known Allergies Objective PHYSICAL EXAM: The remainder of the physical exam is noncontributory. AIRWAY: Airway Visualization of Uvula: Yes Mouth opening greater than 2 fingerbreadths: Yes Neck Full Range of Motion: Yes LUNGS: Lungs clear to auscultation CARDIAC: Regular rhythm,Regular rate Assessment/Plan ASA Class: ASA Class:: Patient with mild systemic disease Active Problems: * No active hospital problems. * Resolved Problems: * No resolved hospital problems. * Medication and Non-Pharmacologic VTE Prophylaxis/Anticoagulants VTE Prophylaxis: VTE prophylaxis appropriate Provisional Diagnosis/Treatment Plan: flexible sigmoidoscopy SEDATION GOAL: Moderate SIGNATURE: Kaylin Zamora MD PATIENT NAME: Hoang White DATE: October 13, 2022 TIME: 2:29 PM Associated attestation - Ana Enriquez MD - 10/13/2022 2:45 PM EST [employer]ORS STAFF PHYSICIAN NOTE OF PERSONAL INVOLVEMENT IN CARE I have reviewed the history and physical exam obtained and documented by the resident and I personally participated in the rubin components. I have confirmed and edited as necessary, the PFSH and ROS obtained by others. I have discussed the case and management of the patient's care. Ana Enriquez MD Date of Service: October 13, 2022 documented in this encounter [facility] 10-13-2022 Note HNO ID: [id number] Author: Bouchra Thompson APRN.TAHIRA Service: ? Author Type: Nurse Practitioner Type: Progress Notes Filed: 10/13/2022 1:43 PM Note Text: Rectal Cancer Tumor Board Imaging Review Date of conference: 10/13/2022. Presenter/specialty: LEO Enriquez History of present illness: 47 year old male with a diagnosis of rectal cancer. S/p a diverting colostomy 02/21/2022 due to obstructive symptoms. He completed ISAÍAS, imaging review today. Is the patient obstructed?:No, s/p diverting colostomy 02/21/2022 Type of imaging reviewed in tumor board with Rectal Cancer Multidisciplinary Team Radiologist and findings: MRI, CT chest Radiologist reading the MRI in MDT: Vandana Jackson MRI Pelvis: 09/26/2022 Relation to peritoneal reflection (Above/Below/Spans): straddles Tumor location in the rectum (Proximal/Mid/Distal): upper Tumor distance from anal verge: (#) cm. 10.5cm. Involvement of sphincter muscles: No Mesorectal lymph nodes suspicious: No Extra-mesorectal lymph nodes suspicious: No Other structures involved: No Clinical circumferential resection margin: Not threatened. IMPRESSION: Since 05/12/2022 and 02/03/2022, post treatment primary tumor assessment: Incomplete response (likely residual tumor). -Continued decrease in size of the upper rectal mass. mrTRG: Grade 3 - Moderate response Suspicious Mesorectal lymph nodes: No. Suspicious Extramesorectal lymph nodes: No. MRI Pelvis read with minimum required elements per NAPRC guidelines (Yes/No): Yes CT Chest: 09/26/2022 Metastatic disease (Yes/No): No - nodules stable CT Abdomen/Pelvis: pending Metastatic disease (Yes/No): pending Anticipated surgical procedure: colostomy takedown, low anterior resection, diverting ileostomy Anticipated date of surgery: 11/07/2022 Tumor board discussion and recommendation: CT abdomen pelvis completion prior to planned surgery. Plan to proceed with surgery on 11/07/2022 colostomy takedown, low anterior resection, diverting ileostomy with Dr. Enriquez. Disciplines present: Colorectal Surgery, Medical Oncology, Radiation Oncology, Radiology, Anatomic Pathology This is the summary of the general discussion provided at tumor board conference. The final recommendations will be made by the primary health care team and the patient after discussing the benefits, risks and alternatives to the various treatment options. This treatment recommendation summary was provided to the treating physician Dr. Enriquez and was shared with the patient [facility] 10-11-2022 Miscellaneous Notes Notification to doctor's office that patient has been called to schedule PACC prior to surgery. Patient has failed to schedule. No call back needed. documented in this encounter [facility] 10-05-2022 Miscellaneous Notes Call placed to patient's significant other Ghazala at [phone]. No answer, left message re: date of flex sig 10/13, date of abdomen/pelvis 10/17, and OR date of 11/07/2022. Office number provided for call back to discuss further documented in this encounter [facility] 10-04-2022 Note HNO ID: [id number] Author: Ana Enriquez MD Service: ? Author Type: Physician Type: Progress Notes Filed: 10/05/2022 10:24 AM Note Text: COLORECTAL SURGERY October 04, 2022 Hoang White Chief Complaint: surveillance of rectal cancer History of Present Illness: Hoang White is a 47 year old male presents to the office for a follow up evaluation after undergoing a Laparoscopic Divided End Loop Sigmoid Colostomy on 02/21/2022 for rectal cancer. Last seen in the office on 05/24/22. Endoscopist: Kishan Jaquez Medical oncologist: Oscar Gonzalez Radiation oncologist: Tylor Davalos Colonoscopy date/findings: 12/24/21 Partially obstructing large circumferential mass, rectosigmoid at 10 cm, multiple biopsies obtained and tattooed. Colonoscopy pathology: Rectosigmoid colon mass: invasive moderately differentiated adenocarcinoma. CT chest date/findings: 09/26/22 SCATTERED LESS THAN 0.5 CM LUNG NODULES BILATERALLY, STABLE. NO SIGNIFICANT INTERVAL CHANGE SINCE 01/13/2022. CT abdomen date/findings: 01/13/22 1. Numerous bilateral 5 mm or less pulmonary nodules are identified. Correlation with follow-up summations is recommended to assess for stability. 2. Borderline prominent right hilar and subcarinal lymph nodes. These can also be further assessed on follow-up studies. 1. Improved appearance to wall thickening involving the sigmoid colon. 2. No CT evidence for metastatic disease to the abdomen or pelvis. MRI rectum date/findings: 09/26/22 Since 05/12/2022 and 02/03/2022, post treatment primary tumor assessment: RESULT: TREATED PRIMARY TUMOR CHARACTERISTICS (Compare to pre-treatment): DWI (with associated low ADC) ? restricted diffusion and low ADC in tumor or tumor bed: Absent. MRI-T2W: Mixed dark T2/scar and intermediate signal. T2 bright mucin (cannot distinguish between cellular and acellular mucin): Absent. Description: Development of T2 hyperintense scar. Distance of the inferior margin of treated tumor to the anal verge: 10.5 cm (3:21) Distance of the inferior margin to the top of sphincter complex/anorectal junction: 8.5 cm (3:21) Relationship to anterior peritoneal reflection: Straddles Craniocaudal length: 2.4 cm (6:24) Pre-treatment craniocaudal length: 3.5 cm (05/12/2022); 6.8 cm (02/03/2022) Tumor location: Upper rectum (10-15 cm) Maximal wall thickness: 0.5 cm (6:24) Pre-treatment wall thickness: 0.7 cm (05/12/2022); 1.3 cm (02/03/2022) Invasion of anal sphincter complex: Absent. Anal canal involvement: None. TUMOR DEPOSITS AND EXTRAMURAL VASCULAR INVASION (EMVI): Tumor deposits:(separate from metastatic lymph nodes): No. EMVI: No (none evident pre-treatment). MESORECTAL FASCIA (MRF): Shortest distance of extraluminal part of the tumor to MRF: Tumor extension beyond the rectal wall at and above the anterior peritoneal reflection Tumor extension through the peritonealized portion of the rectum into peritoneal fat: Tumor extension along the right lateral wall inseparable from the peritoneal reflection. Is there a separate tumor deposit, LN or EMVI threatening (?1mm and ?2 mm) or invading (< 1 mm) the MRF? No. Comments: N/A T4 disease interval change: Continued decreased thickening along the right peritoneal reflection. POST-TREATMENT TUMOR REGRESSION: mrTRG: Grade 3 - Moderate response LYMPH NODES: Mesorectal/superior rectal lymph nodes and/or tumor deposits: N0 (no visible lymph nodes/deposits or only < 5 mm short axis) Suspicious extra mesorectal lymph nodes: None. OTHER FINDINGS: Diverting end colostomy. Trabeculated appearance of the urinary bladder. Postsurgical changes of right inguinal hernia repair. No aggressive osseous lesions. Additional imaging: n/a CEA date/level: 05/24/22- 5.9 Clinical stage: stage IIIC, [id number] Treatment: 5000 cGy in 25 fractions, 2 VMAT/Rapid Arcs, 10X with daily CBCT Imaging TOTAL: 5000 cGy in 25 fractions with concurrent Xeloda S/p consolidation CAPOX complete 08/26/22 Pathologic stage: TBD Surveillance primary physician: Carlos Surveillance plan: TBD PAST MEDICAL HISTORY Diagnosis Date Adenocarcinoma of colon (HCC) Endocarditis 2003 Hypothyroidism Mass of colon [address] Jaquez PAST SURGICAL HISTORY Procedure Laterality Date COLONSCOPY SCREENING HIGH RISK 2021 COLOSTOMY 02/21/2022 Laparoscopic Divided End Loop Sigmoid Colostomy EGD PAST SURGICAL HISTORY OF Right 2012 inguinal PAST SURGICAL HISTORY OF 2020 teeth pullled out Current Outpatient Medications Medication Sig Dispense Refill buPROPion XL (WELLBUTRIN XL) 300 mg 24 hr tablet Take 1 tablet by mouth once daily. Take wellbutrin 150 mg tablet daily for 5 days before starting 300 mg dose daily 30 tablet 2 prochlorperazine (COMPAZINE) 10 mg tablet Take 1 tablet by mouth every 6 hours as needed. 100 tablet 2 nicotine (NICODERM) 21 mg/24 hr Apply 1 Patch as directed every 24 hour (more content not included)... [facility] 10-04-2022 History of Present illness Narrative COLORECTAL SURGERY October 04, 2022 Hoang White Chief Complaint: surveillance of rectal cancer History of Present Illness: Hoang White is a 47 year old male presents to the office for a follow up evaluation after undergoing a Laparoscopic Divided End Loop Sigmoid Colostomy on 02/21/2022 for rectal cancer. Last seen in the office on 05/24/22. [facility] Gonzalez Radiation oncologist: Tylor Davalos Colonoscopy date/findings: 12/24/21 Partially obstructing large circumferential mass, rectosigmoid at 10 cm, multiple biopsies obtained and tattooed. Colonoscopy pathology: Rectosigmoid colon mass: invasive moderately differentiated adenocarcinoma. CT chest date/findings: 09/26/22 SCATTERED LESS THAN 0.5 CM LUNG NODULES BILATERALLY, STABLE. NO SIGNIFICANT INTERVAL CHANGE SINCE 01/13/2022. CT abdomen date/findings: 01/13/22 1. Numerous bilateral 5 mm or less pulmonary nodules are identified. Correlation with follow-up summations is recommended to assess for stability. 2. Borderline prominent right hilar and subcarinal lymph nodes. These can also be further assessed on follow-up studies. 1. Improved appearance to wall thickening involving the sigmoid colon. 2. No CT evidence for metastatic disease to the abdomen or pelvis. MRI rectum date/findings: 09/26/22 Since 05/12/2022 and 02/03/2022, post treatment primary tumor assessment: RESULT: TREATED PRIMARY TUMOR CHARACTERISTICS (Compare to pre-treatment): DWI (with associated low ADC) ? restricted diffusion and low ADC in tumor or tumor bed: Absent. MRI-T2W: Mixed dark T2/scar and intermediate signal. T2 bright mucin (cannot distinguish between cellular and acellular mucin): Absent. Description: Development of T2 hyperintense scar. Distance of the inferior margin of treated tumor to the anal verge: 10.5 cm (3:21) Distance of the inferior margin to the top of sphincter complex/anorectal junction: 8.5 cm (3:21) Relationship to anterior peritoneal reflection: Straddles Craniocaudal length: 2.4 cm (6:24) Pre-treatment craniocaudal length: 3.5 cm (05/12/2022); 6.8 cm (02/03/2022) Tumor location: Upper rectum (10-15 cm) Maximal wall thickness: 0.5 cm (6:24) Pre-treatment wall thickness: 0.7 cm (05/12/2022); 1.3 cm (02/03/2022) Invasion of anal sphincter complex: Absent. Anal canal involvement: None. TUMOR DEPOSITS AND EXTRAMURAL VASCULAR INVASION (EMVI): Tumor deposits:(separate from metastatic lymph nodes): No. EMVI: No (none evident pre-treatment). MESORECTAL FASCIA (MRF): Shortest distance of extraluminal part of the tumor to MRF: Tumor extension beyond the rectal wall at and above the anterior peritoneal reflection Tumor extension through the peritonealized portion of the rectum into peritoneal fat: Tumor extension along the right lateral wall inseparable from the peritoneal reflection. Is there a separate tumor deposit, LN or EMVI threatening (?1mm and ?2 mm) or invading (< 1 mm) the MRF? No. Comments: N/A T4 disease interval change: Continued decreased thickening along the right peritoneal reflection. POST-TREATMENT TUMOR REGRESSION: mrTRG: Grade 3 - Moderate response LYMPH NODES: Mesorectal/superior rectal lymph nodes and/or tumor deposits: N0 (no visible lymph nodes/deposits or only < 5 mm short axis) Suspicious extra mesorectal lymph nodes: None. OTHER FINDINGS: Diverting end colostomy. Trabeculated appearance of the urinary bladder. Postsurgical changes of right inguinal hernia repair. No aggressive osseous lesions. Additional imaging: n/a CEA date/level: 05/24/22- 5.9 Clinical stage: stage IIIC, [id number] Treatment: 5000 cGy in 25 fractions, 2 VMAT/Rapid Arcs, 10X with daily CBCT Imaging TOTAL: 5000 cGy in 25 fractions with concurrent Xeloda S/p consolidation CAPOX complete 08/26/22 Pathologic stage: TBD Surveillance primary physician: Carlos Surveillance plan: TBD PAST MEDICAL HISTORY Diagnosis Date Adenocarcinoma of colon (HCC) Endocarditis 2003 Hypothyroidism Mass of colon [address] Jaquez PAST SURGICAL HISTORY Procedure Laterality Date COLONSCOPY SCREENING HIGH RISK 2021 COLOSTOMY 02/21/2022 Laparoscopic Divided End Loop Sigmoid Colostomy EGD PAST SURGICAL HISTORY OF Right 2012 inguinal PAST SURGICAL HISTORY OF 2019 teeth pullled out Current Outpatient Medications Medication Sig Dispense Refill buPROPion XL (WELLBUTRIN XL) 300 mg 24 hr tablet Take 1 tablet by mouth once daily. Take wellbutrin 150 mg tablet daily for 5 days before starting 300 mg dose daily 30 tablet 2 prochlorperazine (COMPAZINE) 10 mg tablet Take 1 tablet by mouth every 6 hours as needed. 100 tablet 2 nicotine (NICODERM) 21 mg/24 hr Apply 1 Patch as directed every 24 hours. 30 Patch 1 ondansetron (ZOFRAN) 8 mg tablet Take 1 tablet by mouth every 8 hours as needed for nausea/vomiting. 90 tablet 2 loratadine (CLARITIN) 10 mg tablet Take 10 mg by mouth once daily. atorvastatin (LIPITOR) 10 mg tablet Take 10 mg by mouth once daily. acetaminophen (TYLENOL) 500 mg tablet Take 2 tablets by mouth every 6 hours. levothyroxine (SYNTHROID) 125 mcg tablet Take 125 mcg by mouth once daily. iv contrast (will be provided with radiology test) CT ABD/PEL -Inject, intravenously, once for 1 dose.No IV access, insert saline lock prior to the beginning of sedation, infusion, injection of imaging exam. Discontinue saline lock post exam. If Pt. has a central line or IVAD, may access for administration according to line specific nursing protocol. Once exam is complete flush line and de-access according to line specific nursing protocol in the CT contrast administration guidelines link. 1 Each 0 enteric contrast (will be provided with radiology test) For CT ABD/PEL W IVCON Routine order Administer, As Directed One Time Only, via Oral, Rectal, both Oral and Rectal, Enteric Tube, Stoma or Indwelling Catheter, Enteric Contrast as designated per enteric contrast guidelines 1 Each 0 capecitabine (XELODA) 500 mg tablet Take 3 tablets (1,500 mg) by mouth twice daily for 14 days. Followed by 7 days off start with the Oxaliplatin 84 tablet 4 Food Supplement, Lactose-Free (PROMOTE, OSMOLITE, TWO CADEN, ENSURE PLUS, ENLIVE) liqd Take 237 mL by mouth three times daily with meals. 80615 mL 0 lactobacillus rhamnosus (CULTURELLE) 10 billion cell capsule Take 1 capsule by mouth once daily. 30 capsule 0 Current Facility-Administered Medications Medication Dose Route Frequency Provider Last Rate Last Admin perflutren lipid microspheres 1.3 mL in NaCl (PF) 0.9% 10 mL injection (DEFINITY) INTRAVENOUS DIRECTED PRTravis Gonzalez MD sodium chloride 0.9 % (flush) 10 mL (BD POSIFLUSH) 10 mL INTRAVENOUS DIRECTED PRTravis Gonzalez MD ALLERGIES No Known Allergies FAMILY HISTORY Problem Relation Age of Onset Breast Cancer Sister Colon Cancer Maternal Grandfather Social History Tobacco Use Smoking status: Every Day Packs/day: 0.50 Years: 25.00 Pack years: 12.50 Types: Cigarettes Smokeless tobacco: Never Vaping Use Vaping Use: Never used Substance Use Topics Alcohol use: Yes Comment: 2 drinks/week; heavy in past Drug use: Not Currently Types: IV Comment: Past drug use of herorin Physical Exam: BP 119/66 Pulse 64 Ht 172.7 cm (5' 8 ) Wt 60.3 kg (133 lb) BMI 20.22 kg/m General Appearance: Well appearing, alert, in no acute distress, well-hydrated, well nourished. Abdomen: soft ND NT lap incisions well healed no hernia L side colostomy p/p/p no granulomatous tissue or lesions noted on mucosa. Pouch in place, mucocutaneous junction incompletely evaluated Assessment Assessment and Plan: Hoang White is a 47 year old male with T4aN2 upper rectal cancer s/p ISAÍAS w/ long course RT and consolidation chemo complete 08/26/22 who presents to discuss plan of care. Repeat imaging with moderate response, but likely residual tumor. 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 Patient has no showed or rescheduled multiple appointments including flex sig scheduled 08/2022. CT abdomen Flex sig Tumor board discussion MIS LAR with colostomy takedown and DLI - patient and his partner prefer in October. We discussed the risks and benefits of surgery including injury to other structures, bleeding, infection, anastomotic leak, return to the OR, ileus, as well as the possibility of medical complications of surgery including DVT/PE, PNA, MT, stroke, and . The patient understands these risks and is in agreement with proceeding. Medical Decision Making: Data Reviewed: Tests & Documents Reviewed/ordered: Review of prior notes from med onc, rad onc Review of Imaging: MRI Pelvis, CT Chest Additional testing or imaging to be ordered: CT abdomen, flexible sigmoidoscopy, tumor board I have independently interpreted: MRI Pelvis, CT Chest showing moderate response to ISAÍAS with residual tumor, stable indeterminate pulmonary nodules I have discussed Hoang White's treatment plan and/or results with the patient, his partner, Dr. Gonzalez I spent a total of 60 minutes on the date of the service which included preparing to see the patient, [id number] patient care, completing clinical documentation, obtaining and/or reviewing separately obtained history, performing a medically appropriate examination, counseling and educating the patient/family/caregiver, ordering medications, tests, or procedures, communicating with other HCPs (not separately reported), independently interpreting results (not separately reported), communicating results to the patient/family/caregiver, and care coordination (not separately reported). Ana Enriquez MD Colorectal Surgery documented in this encounter [facility] 09-27-2022 Miscellaneous Notes Pt's notified and states pt has a follow up appointment with Dr Enriquez on 10/04 to discuss surgery. Meghan Pichardo RN ----- Message from Oscar Gonzalez MD sent at 09/26/2022 4:26 PM EST ----- Call with results and state that he has responded and will likely need surgery. Thanks documented in this encounter [facility] 09-26-2022 Note HNO ID: [id number] Author: RT Ariella(R) Service: Radiology Author Type: Technologist Type: Progress Notes Filed: 09/26/2022 2:45 PM Note Text: Radiology Service Progress Note PATIENT NAME: Hoang White DATE OF SERVICE: September 26, 2022 TIME: 2:45 PM PATIENT IDENTITY VERIFICATION COMPLETED USING TWO (2) IDENTIFIERS: Name and Date of confirmed by patient verbally and Name and Date of confirmed by identification band. FALL SCREENING: Has the patient had 2 falls in the last year or 1 fall with injury or currently using an Ambulatory Assistive Device (Walker, Cane, Wheelchair, Crutches, etc.)? No PATIENT GENDER DATA: Male PATIENT RELEVANT IMPLANT DATA REVIEWED: Yes RADIOLOGY DEPARTMENT: MR; Exam(s) Completed: Body: Rectal PERIPHERAL IV DATA: Site assessment: Clean,Dry and Intact, Site disposition Discontinued SIGNED BY: RT Ariella(R) September 26, 2022 2:45 PM [facility] 09-26-2022 Note HNO ID: [id number] Author: BARB Altamirano) Service: Radiology Author Type: Technologist Type: Progress Notes Filed: 09/26/2022 1:48 PM Note Text: Radiology Service Progress Note PATIENT NAME: Hoang White DATE OF SERVICE: September 26, 2022 TIME: 1:48 PM PATIENT IDENTITY VERIFICATION COMPLETED USING TWO (2) IDENTIFIERS: Name and Date of confirmed by patient verbally. FALL SCREENING: Has the patient had 2 falls in the last year or 1 fall with injury or currently using an Ambulatory Assistive Device (Walker, Cane, Wheelchair, Crutches, etc.)? No PATIENT GENDER DATA: Male PATIENT RELEVANT IMPLANT DATA REVIEWED: Not Applicable RADIOLOGY DEPARTMENT: CT; Exam(s) Completed: Chest PERIPHERAL IV DATA: Site assessment: Clean,Dry and Intact, Site disposition Left in for next appointment SIGNED BY: RT Dell(R) September 26, 2022 1:48 PM [facility] 09-26-2022 History of Present illness Narrative Radiology Service Progress Note PATIENT NAME: Hoang White DATE OF SERVICE: September 26, 2022 TIME: 1:48 PM PATIENT IDENTITY VERIFICATION COMPLETED USING TWO (2) IDENTIFIERS: Name and Date of confirmed by patient verbally. FALL SCREENING: Has the patient had 2 falls in the last year or 1 fall with injury or currently using an Ambulatory Assistive Device (Walker, Cane, Wheelchair, Crutches, etc.)? No PATIENT GENDER DATA: Male PATIENT RELEVANT IMPLANT DATA REVIEWED: Not Applicable RADIOLOGY DEPARTMENT: CT; Exam(s) Completed: Chest PERIPHERAL IV DATA: Site assessment: Clean,Dry and Intact, Site disposition Left in for next appointment SIGNED BY: RT Dell(Kelle) September 26, 2022 1:48 PM documented in this encounter [facility] 09-26-2022 Nurse Note Radiology Service Progress Note DATE OF SERVICE: September 26, 2022 TIME: 1:40 PM PATIENT WEIGHT: 133 LBS PATIENT IDENTITY VERIFICATION COMPLETED USING TWO (2) STANDARD IDENTIFIERS: Name and Date of confirmed by patient verbally. FALL SCREENING: Has the patient had 2 falls in the last year or 1 fall with injury or currently using an Ambulatory Assistive Device (Walker, Cane, Wheelchair, Crutches, etc.)? No PATIENT GENDER DATA: Male ALLERGIES: Reviewed and unchanged CONTRAST ALLERGY: No EXAM: CT -CONTRAST INDUCED NEPHROPATHY RISK FACTORS: History of Kidney surgery, Kidney neoplasm, Liver disease, and/or any recent Nephrotoxic Chemotherapy or other Nephrotoxic medications CREATININE: Creatinine Date Value Ref Range Status 08/26/2022 0.67 (L) 0.73 - 1.22 mg/dL Final 08/05/2022 0.68 (L) 0.73 - 1.22 mg/dL Final 07/15/2022 0.78 0.73 - 1.22 mg/dL Final Estimated Glomerular Filtration Rate Date Value Ref Range Status 08/26/2022 114 >=60 mL/min/1.73m Final Comment: Estimated Glomerular Filtration Rate (eGFR) is calculated using the 2020 CKD-EPI creatinine equation. This equation utilizes serum creatinine, sex, and age as parameters. The creatinine assay has traceable calibration to isotope dilution-mass spectrometry. Refer to KDIGO guidelines for clinical interpretation. In patients with unstable renal function, e.g. those with acute kidney injury, the eGFR may not accurately reflect actual GFR. P.O.C.T. RESULTS: POC done: Yes, See Lab Tab September 26, 2022 TREATMENT: N/A IV SITE: Ambulatory: A peripheral IV was started in the Right antecubital site with a Angio cath: 22 gauge. IV SITE APPEARANCE: Clean,Dry and Intact Please leave in IV for MRI at [facility]. SIGNATURE: Kylah Butler RN PATIENT NAME: Hoang White DATE: September 26, 2022 TIME: 1:40 PM documented in this encounter [facility] 09-23-2022 Miscellaneous Notes MRI- 09/26/2022 @ 200PM Appointment reminder call- spoke with Elsa- gave directions to the office- states patient has another appointment before ours and will be here after documented in this encounter [facility] 08-26-2022 Miscellaneous Notes Summary: Research Follow Up GUARDIAN IRB# [id number] IRB # [id number] Tight perioperative blood pressure management to reduce serious cardiovascular, renal, and cognitive complications: The GUARDIAN trial PI: Mary Solorio MD, LUCIA, CHLOÉ. Outcomes Research Department. Anesthesia [place]. [facility]. This is a research study note. Patient assessments recorded here should not guide either clinical care or clinical decision-making. I called the patient, Hoang White, today regarding follow-up for the study IRB [id number] Tight Perioperative Blood pressure Management to Reduce Serious Cardiovascular, renal, and Cognitive Complications (GUARDIAN) Trial. The patient was busy and told me to call back in the morning next week. Catalina Muhammad Research Scheduler Maintenance Outcomes Research [facility] documented in this encounter [facility] 08-26-2022 Note HNO ID: [id number] Author: Temi Dean PA-C Service: ? Author Type: Physician Scheduler Maintenance Type: Progress Notes Filed: 08/26/2022 12:07 PM Note Text: PATIENT NAME: Hoang White [facility] NO.: [id number] ATTENDING PHYSICIAN: Oscar Gonzalez MD DATE OF SERVICE: August 26, 2022 (Elements copied from Dr. Gonzalez's note dated June 24, 2022, have been reviewed and updated where appropriate, and all reflect current assessment and medical decision making during today's encounter, August 26, 2022) CC: Follow up Diagnosis: 1. Upper rectal cancer, MRI staged T4a,N+,M0- Mod Diff Adenocarcinoma ( [facility]) 2. Severe TR ( ECHO 12/2021 at [facility]): - The left ventricle is normal in size. Left ventricular systolic function is normal. EF = 60 ? 5% (2D biplane) Normal left ventricular diastolic function. Normal left atrial size. - Severe right atrial and ventricular dilatation. Right ventricular systolic function is normal including normal RV global strain (-24.0%). - Severe tricuspid regurgitation with hepatic vein systolic reversal. Leaflets thickened without obvious active vegetation. - Diastolic flattening of interventricular septum consistent with RV volume overload. - RVOT AT suggests normal mean PA pressures. 3. Previous h/o IVDA Treatment History: 1. 02/21/2022: Laparoscopic end colostomy 2. Xeloda and XRT 03/10/2022-04/15/2022- Plan for ISAÍAS 3. XELOX 06/03/2022 HPI: Jayce returns for his final xelox treatment. Is having cold induced neuropathy with each treatment. No ongoing neuropathy. No fevers, chills, nausea, vomiting or HFS. PAST MEDICAL HISTORY Diagnosis Date Adenocarcinoma of colon (HCC) Endocarditis 2003 Hypothyroidism Mass of colon [address] Jaquez Social History Tobacco Use Smoking status: Every Day Packs/day: 0.50 Years: 25.00 Pack years: 12.50 Types: Cigarettes Smokeless tobacco: Never Vaping Use Vaping Use: Never used Substance Use Topics Alcohol use: Yes Comment: 2 drinks/week; heavy in past Drug use: Not Currently Types: IV Comment: Past drug use of herorin FAMILY HISTORY Problem Relation Age of Onset Breast Cancer Sister Colon Cancer Maternal Grandfather Past medical, social and family history reviewed without any changes. REVIEW OF SYSTEMS GENERAL: No weight loss, malaise or fevers. No night sweats. HEENT: Negative for headaches, No changes in hearing or vision, no nose bleeds or other nasal problems. RESPIRATORY: Negative for cough, wheezing and shortness of breath CARDIOVASCULAR: Negative for chest pain, leg swelling and palpitations GI: Negative for abdominal discomfort, blood in stools or black stools and change in bowel habits : Negative for dysuria, frequency and incontinence MUSCULOSKELETAL: Negative for joint pain or swelling, back pain, and muscle pain. SKIN: Negative for lesions, rash, and itching. HEMATOLOGY/LYMPHOLOGY Negative for prolonged bleeding, bruising easily, and swollen nodes. NEURO: Negative for numbness or tingling of hands/feet. No weakness. PHYSICAL EXAMINATION: BP 102/74 Pulse 73 Temp (Src) 97.2 (Temporal) Resp 16 Ht 5' 7.874 (1.72m) Wt 133 lb 3.2 oz (60.4kg) SpO2 98% BMI 20.33 kg/(m2). ECOG PERFORMANCE STATUS: 0- Fully active, able to carry on all pre-disease performance w/o restriction. General: Alert and oriented, no distress, pleasant and cooperative. Heart: Regular, normal S1 and S2, no murmurs, rubs, or gallops Lungs: Clear to auscultation bilaterally Abdomen: Benign Extremities: Feet/ankles without edema, posterior tibial pulses full and symmetrical LABS: Glucose (mg/dL) Date Value 08/26/2022 103 Potassium (mmol/L) Date Value 08/26/2022 4.2 Sodium (mmol/L) Date Value 08/26/2022 141 Chloride (mmol/L) Date Value 08/26/2022 108 CO2 (mmol/L) Date Value 08/26/2022 25 Creatinine (mg/dL) Date Value 08/26/2022 0.67 BUN (mg/dL) Date Value 08/26/2022 19 Anion Gap (mmol/L) Date Value 08/26/2022 8 Calcium, Total (mg/dL) Date Value 08/26/2022 9.1 Protein, Total (g/dL) Date Value 08/26/2022 6.8 Albumin (g/dL) Date Value 08/26/2022 4.2 Bilirubin, Total (mg/dL) Date Value 08/26/2022 0.4 Alkaline Phosphatase (U/L) Date Value 08/26/2022 71 AST (U/L) Date Value 08/26/2022 27 ALT (U/L) Date Value 08/26/2022 13 WBC Date Value Ref Range Status 08/26/2022 3.72 3.70 - 11.00 k/uL Final RBC Date Value Ref Range Status 08/26/2022 3.80 (L) 4.20 - 6.00 m/uL Final Hemoglobin Date Value Ref Range Status 08/26/2022 12.6 (L) 13.0 - 17.0 g/dL Final Hematocrit Date Value Ref Range Status 08/26/2022 36.0 (L) 39.0 - 51.0 % Final MCV Date Value Ref Range Status 08/26/2022 94.7 80.0 - 100.0 fL Final MCH Date Value Ref Range Status 08/26/2022 33.2 26.0 - 34.0 pg Final MCHC Date Value Ref Range Status 08/26/2022 35.0 30.5 - 36.0 g/dL Final RDW-CV Date Value Ref Rang (more content not included)... [facility] 08-26-2022 History of Present illness Narrative Images from the original note were not included. PATIENT NAME: Hoang White [facility] NO.: [id number] ATTENDING PHYSICIAN: Oscar Gonzalez MD DATE OF SERVICE: August 26, 2022 (Elements copied from Dr. Gonzalez's note dated June 24, 2022, have been reviewed and updated where appropriate, and all reflect current assessment and medical decision making during today's encounter, August 26, 2022) CC: Follow up Diagnosis: 1. Upper rectal cancer, MRI staged T4a,N+,M0- Mod Diff Adenocarcinoma ( DIANNE) 2. Severe TR ( ECHO 12/2021 at [facility]): - The left ventricle is normal in size. Left ventricular systolic function is normal. EF = 60 5% (2D biplane) Normal left ventricular diastolic function. Normal left atrial size. - Severe right atrial and ventricular dilatation. Right ventricular systolic function is normal including normal RV global strain (-24.0%). - Severe tricuspid regurgitation with hepatic vein systolic reversal. Leaflets thickened without obvious active vegetation. - Diastolic flattening of interventricular septum consistent with RV volume overload. - RVOT AT suggests normal mean PA pressures. 3. Previous h/o IVDA Treatment History: 1. 02/21/2022: Laparoscopic end colostomy 2. Xeloda and XRT 03/10/2022-04/15/2022- Plan for ISAÍAS 3. XELOX 06/03/2022 HPI: Jayce returns for his final xelox treatment. Is having cold induced neuropathy with each treatment. No ongoing neuropathy. No fevers, chills, nausea, vomiting or HFS. PAST MEDICAL HISTORY Diagnosis Date Adenocarcinoma of colon (HCC) Endocarditis 2003 Hypothyroidism Mass of colon [address] Jaquez Social History Tobacco Use Smoking status: Every Day Packs/day: 0.50 Years: 25.00 Pack years: 12.50 Types: Cigarettes Smokeless tobacco: Never Vaping Use Vaping Use: Never used Substance Use Topics Alcohol use: Yes Comment: 2 drinks/week; heavy in past Drug use: Not Currently Types: IV Comment: Past drug use of herorin FAMILY HISTORY Problem Relation Age of Onset Breast Cancer Sister Colon Cancer Maternal Grandfather Past medical, social and family history reviewed without any changes. REVIEW OF SYSTEMS GENERAL: No weight loss, malaise or fevers. No night sweats. HEENT: Negative for headaches, No changes in hearing or vision, no nose bleeds or other nasal problems. RESPIRATORY: Negative for cough, wheezing and shortness of breath CARDIOVASCULAR: Negative for chest pain, leg swelling and palpitations GI: Negative for abdominal discomfort, blood in stools or black stools and change in bowel habits : Negative for dysuria, frequency and incontinence MUSCULOSKELETAL: Negative for joint pain or swelling, back pain, and muscle pain. SKIN: Negative for lesions, rash, and itching. HEMATOLOGY/LYMPHOLOGY Negative for prolonged bleeding, bruising easily, and swollen nodes. NEURO: Negative for numbness or tingling of hands/feet. No weakness. PHYSICAL EXAMINATION: BP 102/74 Pulse 73 Temp (Src) 97.2 (Temporal) Resp 16 Ht 5' 7.874 (1.72m) Wt 133 lb 3.2 oz (60.4kg) SpO2 98% BMI 20.33 kg/(m^2). ECOG PERFORMANCE STATUS: 0- Fully active, able to carry on all pre-disease performance w/o restriction. General: Alert and oriented, no distress, pleasant and cooperative. Heart: Regular, normal S1 and S2, no murmurs, rubs, or gallops Lungs: Clear to auscultation bilaterally Abdomen: Benign Extremities: Feet/ankles without edema, posterior tibial pulses full and symmetrical LABS: Glucose (mg/dL) Date Value 08/26/2022 103 Potassium (mmol/L) Date Value 08/26/2022 4.2 Sodium (mmol/L) Date Value 08/26/2022 141 Chloride (mmol/L) Date Value 08/26/2022 108 CO2 (mmol/L) Date Value 08/26/2022 25 Creatinine (mg/dL) Date Value 08/26/2022 0.67 BUN (mg/dL) Date Value 08/26/2022 19 Anion Gap (mmol/L) Date Value 08/26/2022 8 Calcium, Total (mg/dL) Date Value 08/26/2022 9.1 Protein, Total (g/dL) Date Value 08/26/2022 6.8 Albumin (g/dL) Date Value 08/26/2022 4.2 Bilirubin, Total (mg/dL) Date Value 08/26/2022 0.4 Alkaline Phosphatase (U/L) Date Value 08/26/2022 71 AST (U/L) Date Value 08/26/2022 27 ALT (U/L) Date Value 08/26/2022 13 WBC Date Value Ref Range Status 08/26/2022 3.72 3.70 - 11.00 k/uL Final RBC Date Value Ref Range Status 08/26/2022 3.80 (L) 4.20 - 6.00 m/uL Final Hemoglobin Date Value Ref Range Status 08/26/2022 12.6 (L) 13.0 - 17.0 g/dL Final Hematocrit Date Value Ref Range Status 08/26/2022 36.0 (L) 39.0 - 51.0 % Final MCV Date Value Ref Range Status 08/26/2022 94.7 80.0 - 100.0 fL Final MCH Date Value Ref Range Status 08/26/2022 33.2 26.0 - 34.0 pg Final MCHC Date Value Ref Range Status 08/26/2022 35.0 30.5 - 36.0 g/dL Final RDW-CV Date Value Ref Range Status 08/26/2022 16.4 (H) 11.5 - 15.0 % Final Platelet Count Date Value Ref Range Status 08/26/2022 178 150 - 400 k/uL Final MPV Date Value Ref Range Status 08/26/2022 9.7 9.0 - 12.7 fL Final Abs Neut Date Value Ref Range Status 08/26/2022 2.64 1.45 - 7.50 k/uL Final Lymph% Date Value Ref Range Status 08/26/2022 11.8 % Final Abs Lymph Date Value Ref Range Status 08/26/2022 0.44 (L) 1.00 - 4.00 k/uL Final Cotton% Date Value Ref Range Status 08/26/2022 12.9 % Final Abs Cotton Date Value Ref Range Status 08/26/2022 0.48 <0.87 k/uL Final Eosin% Date Value Ref Range Status 08/26/2022 3.0 % Final Abs Eosin Date Value Ref Range Status 08/26/2022 0.11 <0.46 k/uL Final Baso% Date Value Ref Range Status 08/26/2022 0.5 % Final Abs Baso Date Value Ref Range Status 08/26/2022 <0.03 <0.11 k/uL Final PATH: Colonoscopy 12/2021: Imaging: CT of the Chest and Abdomen and Pelvis 12/2021: 1. Numerous bilateral 5 mm or less pulmonary nodules are identified. Correlation with follow-up summations is recommended to assess for stability. 2. Borderline prominent right hilar and subcarinal lymph nodes. These can also be further assessed on follow-up studies. 1. Improved appearance to wall thickening involving the sigmoid colon. 2. No CT evidence for metastatic disease to the abdomen or pelvis. MRI Rectum 01/2022: 6.8 cm upper rectal mass with invasion into the right lateral peritoneal reflection. Multiple suspicious appearing superior rectal lymph nodes. Stage: T4a N+ MRF: Not applicable Sphincter involvement: No. Suspicious extra mesorectal lymph nodes: No. EMVI: Yes. MRI of the rectum 04/2022 post Chemo and XRT: Since MRI 02/03/2022, post treatment primary tumor assessment: Incomplete response (likely residual tumor). -There is interval decrease in tumor bulk with persistent tumor visualized within the upper rectum/sigmoid colon. mrTRG: Grade 4 - Partial response Suspicious Mesorectal lymph nodes: Yes. Interval decrease in size of superior rectal lymph nodes with residual superior rectal lymph node measuring up to 0.4 cm. Suspicious Extramesorectal lymph nodes: No. Assessment and Plan: Hoang White is a 46 year old year old male here for follow up. 1. Upper Rectal Cancer, MRI with T4a,N+ upper rectal disease. Post diverting colostomy and will plan on ISAÍAS and neoadjuvant capecitabine and XRT started 03/10/2022 and completed 04/15/2022. Plan for ISAÍAS and started CAPOX 06/03/2022 and here for cycle 5/5 . Will plan MRI rectum and CT chest for 4 weeks and see him back to review. Will also arrange for him to see Dr. Enriquez for follow up and plans for surgery. 2. Pulm Nodules-- Follow up CT- Last CT 12/2021, will repeat 3. TR- Follows cardiology and need surgical revision after CRC has syeda addressed 4. Diarrhea- Resolved Temi Dean PA-C CC: Ana Enriquez MD documented in this encounter [facility] 08-25-2022 Miscellaneous Notes Summary: Research Follow Up KARTHIKEYAN IRB# [id number] IRB # [id number] Tight perioperative blood pressure management to reduce serious cardiovascular, renal, and cognitive complications: The GUARDIAN trial PI: Mary Solorio MD, LUCIA, FASA. Outcomes Research Department. Anesthesia [place]. [facility]. This is a research study note. Patient assessments recorded here should not guide either clinical care or clinical decision-making. Hoang White was unavailable at the listed phone number. A voice message was left. We will attempt to contact the patient again at a later date. Catalina Muhammad Research Scheduler Maintenance Department of OUTCOMES RESEARCH Anesthesiology [place] documented in this encounter [facility] 08-08-2022 Miscellaneous Notes Call received from Sridevi at [facility] requesting ICD codes to use for pt's order for ensure. Codes provided. Meghan Pichardo RN documented in this encounter [facility] 08-06-2022 Note HNO ID: [id number] Author: Tylor Davalos MD Service: ? Author Type: Physician Type: Progress Notes Filed: 08/17/2022 4:39 AM Note Text: Radiation Oncology - Follow Up Note PATIENT NAME: Hoang White PATIENT DIAGNOSIS/PATIENT IDENTIFICATION: Mr. White is a 47-year-old gentleman recently diagnosed with stage IIIC, [id number] adenocarcinoma of the rectum status post colonoscopy and biopsy on 12/24/2021. Staging work-up with MRI of the rectum from 02/03/2022 described a 6.8 cm upper rectal mass with invasion into the right lateral peritoneal reflection multiple suspicious lymph nodes. CT chest abdomen pelvis from 01/13/2022 was negative for definite signs of regional or distant disease. His case was reviewed at the multidisciplinary colorectal tumor board with recommendation for total neoadjuvant therapy starting with chemoradiation prior to surgical resection. After a diverting colostomy, he completed a course of chemoradiation therapy on 04/15/2022 (5000 cGy delivered in 25 fractions with concurrent Xeloda). INTERVAL HISTORY/ROS: Mr. White returns to clinic today for routine follow-up approximately four months after the completion of his radiation treatments. In the interim, he had initial postradiation imaging with MRI of the rectum on 05/12/2022 which showed excellent partial response. He then initiated full dose systemic therapy with XELOX on 06/03/[address] Gonzalez. He reports he has been tolerating fairly well but does note fatigue as well as decreased appetite with stable weight. He notes that his colostomy continues to function well without issues and denies any diarrhea or bloody output. He also notes occasional output per rectum which is 10 and decreased from before. He denies any perianal rectal pain or skin irritation/breakdown. He also denies any urinary issues. He continues to note persistent nausea which he manages with antiemetics. He otherwise denies any recent fevers, chills, headaches, difficulty with speech/swallowing, shortness of breath, chest pain/palpitations, abdominal pain, nausea, vomiting, change in bowel/urinary habits, difficulty with gait/balance, recent falls, etc. The remainder of the review of systems was performed and was otherwise noncontributory. ALLERGIES ALLERGIES No Known Allergies MEDICATIONS: Current Outpatient Medications: prochlorperazine (COMPAZINE) 10 mg tablet nicotine (NICODERM) 21 mg/24 hr capecitabine (XELODA) 500 mg tablet buPROPion XL (WELLBUTRIN XL) 300 mg 24 hr tablet ondansetron (ZOFRAN) 8 mg tablet loratadine (CLARITIN) 10 mg tablet atorvastatin (LIPITOR) 10 mg tablet levothyroxine (SYNTHROID) 125 mcg tablet Food Supplement, Lactose-Free (PROMOTE, OSMOLITE, TWO CADEN, ENSURE PLUS, ENLIVE) liqd acetaminophen (TYLENOL) 500 mg tablet lactobacillus rhamnosus (CULTURELLE) 10 billion cell capsule Current Facility-Administered Medications: perflutren lipid microspheres 1.3 mL in NaCl (PF) 0.9% 10 mL injection (DEFINITY) sodium chloride 0.9 % (flush) 10 mL (BD POSIFLUSH) PHYSICAL EXAM: GENERAL: Middle-age gentleman sitting in chair in no acute distress. VITALS: BP 115/76 Pulse 69 Temp 97.1 Resp 16 Wt 134 lb (60.8kg) SpO2 100% KPS: 90 HEENT: NC/AT, anicteric sclera HEART: S1S2 LUNGS: non-labored breathing ABDOMEN: soft MUSCULOSKELETAL: no peripheral edema, moves all extremities. NEURO: no focal deficit; AANDO X3. RADIOLOGIC DATA: MRI Rectum (05/12/2022) IMPRESSION: Since MRI 02/03/2022, post treatment primary tumor assessment: Incomplete response (likely residual tumor). -There is interval decrease in tumor bulk with persistent tumor visualized within the upper rectum/sigmoid colon. mrTRG: Grade 4 - Partial response Suspicious Mesorectal lymph nodes: Yes. Interval decrease in size of superior rectal lymph nodes with residual superior rectal lymph node measuring up to 0.4 cm. Suspicious Extramesorectal lymph nodes: No. TREATED PRIMARY TUMOR CHARACTERISTICS (Compare to pre-treatment): DWI (with associated low ADC) ? restricted diffusion and low ADC in tumor or tumor bed: Present, improved from prior. MRI-T2W: Intermediate signal intensity, no dark T2/scar. T2 bright mucin (cannot distinguish between cellular and acellular mucin): Absent Distance of the inferior margin of treated tumor to the anal verge: 10.6 cm (series 6 image 21) Distance of the inferior margin to the top of sphincter complex/anorectal junction: 7.3 cm (series 6 image 21) Relationship to anterior peritoneal reflection: Above Craniocaudal length: 3.5 cm (series 5 image 24) Pre-treatment craniocaudal length: 6.8 cm Tumor location: Upper rectum (10-15 cm) Maximal wall thickness: 0.7 cm (series 16 image 39)) Pre-treatment wall thickness: 1.3 cm Invasion of anal sphincter complex: Absent. Anal canal involvement: None. TUMOR DEPOSITS AND EXTRAMURAL VASCULAR INVASION (E (more content not included)... [facility] 08-05-2022 History of Present illness Narrative Radiation Oncology - Follow Up Note PATIENT NAME: Hoang White PATIENT Signed by: Tylor Davalos MD I spent a total of 20 minutes on the date of the service which included preparing to see the patient, [id number] patient care, and counseling and educating the patient/family/caregiver. This document has been created with the use of voice recognition technology. It may contain inaccuracies, misspellings, inaccurate syntax or inappropriate word context that are a result of the inadequacies/shortcomings of said technology/software. documented in this encounter [facility] 08-05-2022 Miscellaneous Notes Pt called and discussed this with him. Please refer to other telephone encounter. Meghan Pichardo RN Patient stopped up at front end specialist to see if there is anything we can do with the pain he is getting in his hands. He says he is getting a cold feeling he thinks from Chemo. If you can please call him today. Indira Evans documented in this encounter [facility] 08-05-2022 Note HNO ID: [id number] Author: Oscar Gonzalez MD Service: ? Author Type: Physician Type: Progress Notes Filed: 08/05/2022 10:13 AM Note Text: PATIENT NAME: Hoang White CLINIC NO.: [id number] ATTENDING PHYSICIAN: Oscar Gonzalez MD DATE OF SERVICE: June 24, 2022 Some of the elements of this note have been copied from my previous progress note dated 06/24/2022. All the information has been reviewed carefully. Dear Dr. Ana Enriquez, here is an update on a follow up visit on male Hoang White at the clinic June 24, 2022 Diagnosis: 1. Upper rectal cancer, MRI staged T4a,N+,M0- Mod Diff Adenocarcinoma ( DIANNE) 2. Severe TR ( ECHO 12/2021 at [facility]): - The left ventricle is normal in size. Left ventricular systolic function is normal. EF = 60 ? 5% (2D biplane) Normal left ventricular diastolic function. Normal left atrial size. - Severe right atrial and ventricular dilatation. Right ventricular systolic function is normal including normal RV global strain (-24.0%). - Severe tricuspid regurgitation with hepatic vein systolic reversal. Leaflets thickened without obvious active vegetation. - Diastolic flattening of interventricular septum consistent with RV volume overload. - RVOT AT suggests normal mean PA pressures. 3. Previous h/o IVDA Treatment History: 1. 02/21/2022: Laparoscopic end colostomy 2. Xeloda and XRT 03/10/2022-04/15/2022- Plan for ISAÍAS 3. XELOX 06/03/2022 HPI: Hoang White is a 46 year old year old male here for follow up. Actually feels well and denies any fevers and or chills. Denies any rashes and also nausea well controlled. Denies any neuropathy and appetite stable . Wants to worl extra time PAST MEDICAL HISTORY Diagnosis Date Adenocarcinoma of colon (HCC) Endocarditis 2003 Hypothyroidism Mass of colon [address] Jaquez Social History Tobacco Use Smoking status: Every Day Packs/day: 0.50 Years: 25.00 Pack years: 12.50 Types: Cigarettes Smokeless tobacco: Never Vaping Use Vaping Use: Never used Substance Use Topics Alcohol use: Yes Comment: 2 drinks/week; heavy in past Drug use: Not Currently Types: IV Comment: Past drug use of herorin FAMILY HISTORY Problem Relation Age of Onset Breast Cancer Sister Colon Cancer Maternal Grandfather Past medical, social and family history reviewed without any changes. REVIEW OF SYSTEMS GENERAL: No weight loss, malaise or fevers. No night sweats. HEENT: Negative for headaches, No changes in hearing or vision, no nose bleeds or other nasal problems. RESPIRATORY: Negative for cough, wheezing and shortness of breath CARDIOVASCULAR: Negative for chest pain, leg swelling and palpitations GI: Negative for abdominal discomfort, blood in stools or black stools and change in bowel habits : Negative for dysuria, frequency and incontinence MUSCULOSKELETAL: Negative for joint pain or swelling, back pain, and muscle pain. SKIN: Negative for lesions, rash, and itching. HEMATOLOGY/LYMPHOLOGY Negative for prolonged bleeding, bruising easily, and swollen nodes. NEURO: Negative for numbness or tingling of hands/feet. No weakness. PHYSICAL EXAMINATION: BP 115/76 Pulse 69 Temp (Src) 97.1 (Temporal) Resp 16 Ht 5' 7.874 (1.72m) Wt 134 lb 0.6 oz (60.8kg) SpO2 100% BMI 20.46 kg/(m2). Wt 61.3 kg (135 lb 3.2 oz) BMI 20.85 kg/m2 Last 3 Encounter Wt Readings: Date: Wt: 02/04/2022 61.3 kg (135 lb 3.2 oz) 01/18/2022 62.1 kg (137 lb) 12/29/2021 62.3 kg (137 lb 6.4 oz) General appearance:ECOG PERFORMANCE STATUS: 0- Fully active, able to carry on all pre-disease performance w/o restriction. Patient in NAD. Skin: Skin color, texture, turgor normal. No rashes or lesions. Eyes: Anicteric sclera. Pupils are equally round and reactive to light. Extraocular movements are intact. Lymph Nodes: No cervical, supraclavicular, axillary or inguinal adenopathy. Oropharynx: Lips, mucosa, and tongue normal. Back: No pain to percussion. Negative SLR test Lungs clear to auscultation, No wheezing or rhonchi Heart: RRR without murmur, gallop, or rubs. Abdomen soft, non-tender. No masses, organomegaly Extremities: No deformities. No edema Neuro: Gait and speech normal. Reflexes normal and symmetric. Muscular strength intact. Sensation grossly intact. Rectal: Deferred : Deferred LABS: Glucose (mg/dL) Date Value 07/15/2022 89 Potassium (mmol/L) Date Value 07/15/2022 4.5 Sodium (mmol/L) Date Value 07/15/2022 144 Chloride (mmol/L) Date Value 07/15/2022 108 CO2 (mmol/L) Date Value 07/15/2022 29 Creatinine (mg/dL) Date Value 07/15/2022 0.78 BUN (mg/dL) Date Value 07/15/2022 13 Anion Gap (mmol/L) Date Value 07/15/2022 7 Calcium, Total (mg/dL) Date Value 07/15/2022 9.7 Protein, Total (g/dL) Date Value 07/15/2022 6.9 Albumin (g/dL) Date Value 07/15/2022 4.4 Bilirubin, Total (mg/dL) Date Value 07/15/ (more content not included)... [facility] 08-05-2022 Miscellaneous Notes Addended by: OSCAR GONZALEZ on: 08/05/2022 11:11 AM Modules accepted: Orders documented in this encounter [facility] 08-05-2022 History of Present illness Narrative PATIENT NAME: Hoang White [facility] NO.: [id number] ATTENDING PHYSICIAN: Oscar Gonzalez MD DATE OF SERVICE: June 24, 2022 Some of the elements of this note have been copied from my previous progress note dated 06/24/2022. All the information has been reviewed carefully. Dear Dr. Ana Enriquez, here is an update on a follow up visit on male Hoang White at the clinic June 24, 2022 Diagnosis: 1. Upper rectal cancer, MRI staged T4a,N+,M0- Mod Diff Adenocarcinoma ( DIANNE) 2. Severe TR ( ECHO 12/2021 at [facility]): - The left ventricle is normal in size. Left ventricular systolic function is normal. EF = 60 5% (2D biplane) Normal left ventricular diastolic function. Normal left atrial size. - Severe right atrial and ventricular dilatation. Right ventricular systolic function is normal including normal RV global strain (-24.0%). - Severe tricuspid regurgitation with hepatic vein systolic reversal. Leaflets thickened without obvious active vegetation. - Diastolic flattening of interventricular septum consistent with RV volume overload. - RVOT AT suggests normal mean PA pressures. 3. Previous h/o IVDA Treatment History: 1. 02/21/2022: Laparoscopic end colostomy 2. Xeloda and XRT 03/10/2022-04/15/2022- Plan for ISAÍAS 3. XELOX 06/03/2022 HPI: Hoang White is a 46 year old year old male here for follow up. Actually feels well and denies any fevers and or chills. Denies any rashes and also nausea well controlled. Denies any neuropathy and appetite stable . Wants to worl extra time PAST MEDICAL HISTORY Diagnosis Date Adenocarcinoma of colon (HCC) Endocarditis 2003 Hypothyroidism Mass of colon [address] Jaquez Social History Tobacco Use Smoking status: Every Day Packs/day: 0.50 Years: 25.00 Pack years: 12.50 Types: Cigarettes Smokeless tobacco: Never Vaping Use Vaping Use: Never used Substance Use Topics Alcohol use: Yes Comment: 2 drinks/week; heavy in past Drug use: Not Currently Types: IV Comment: Past drug use of herorin FAMILY HISTORY Problem Relation Age of Onset Breast Cancer Sister Colon Cancer Maternal Grandfather Past medical, social and family history reviewed without any changes. REVIEW OF SYSTEMS GENERAL: No weight loss, malaise or fevers. No night sweats. HEENT: Negative for headaches, No changes in hearing or vision, no nose bleeds or other nasal problems. RESPIRATORY: Negative for cough, wheezing and shortness of breath CARDIOVASCULAR: Negative for chest pain, leg swelling and palpitations GI: Negative for abdominal discomfort, blood in stools or black stools and change in bowel habits : Negative for dysuria, frequency and incontinence MUSCULOSKELETAL: Negative for joint pain or swelling, back pain, and muscle pain. SKIN: Negative for lesions, rash, and itching. HEMATOLOGY/LYMPHOLOGY Negative for prolonged bleeding, bruising easily, and swollen nodes. NEURO: Negative for numbness or tingling of hands/feet. No weakness. PHYSICAL EXAMINATION: BP 115/76 Pulse 69 Temp (Src) 97.1 (Temporal) Resp 16 Ht 5' 7.874 (1.72m) Wt 134 lb 0.6 oz (60.8kg) SpO2 100% BMI 20.46 kg/(m^2). Wt 61.3 kg (135 lb 3.2 oz) BMI 20.85 kg/m2 Last 3 Encounter Wt Readings: Date: Wt: 02/04/2022 61.3 kg (135 lb 3.2 oz) 01/18/2022 62.1 kg (137 lb) 12/29/2021 62.3 kg (137 lb 6.4 oz) General appearance:ECOG PERFORMANCE STATUS: 0- Fully active, able to carry on all pre-disease performance w/o restriction. Patient in NAD. Skin: Skin color, texture, turgor normal. No rashes or lesions. Eyes: Anicteric sclera. Pupils are equally round and reactive to light. Extraocular movements are intact. Lymph Nodes: No cervical, supraclavicular, axillary or inguinal adenopathy. Oropharynx: Lips, mucosa, and tongue normal. Back: No pain to percussion. Negative SLR test Lungs clear to auscultation, No wheezing or rhonchi Heart: RRR without murmur, gallop, or rubs. Abdomen soft, non-tender. No masses, organomegaly Extremities: No deformities. No edema Neuro: Gait and speech normal. Reflexes normal and symmetric. Muscular strength intact. Sensation grossly intact. Rectal: Deferred : Deferred LABS: Glucose (mg/dL) Date Value 07/15/2022 89 Potassium (mmol/L) Date Value 07/15/2022 4.5 Sodium (mmol/L) Date Value 07/15/2022 144 Chloride (mmol/L) Date Value 07/15/2022 108 CO2 (mmol/L) Date Value 07/15/2022 29 Creatinine (mg/dL) Date Value 07/15/2022 0.78 BUN (mg/dL) Date Value 07/15/2022 13 Anion Gap (mmol/L) Date Value 07/15/2022 7 Calcium, Total (mg/dL) Date Value 07/15/2022 9.7 Protein, Total (g/dL) Date Value 07/15/2022 6.9 Albumin (g/dL) Date Value 07/15/2022 4.4 Bilirubin, Total (mg/dL) Date Value 07/15/2022 0.3 Alkaline Phosphatase (U/L) Date Value 07/15/2022 91 AST (U/L) Date Value 07/15/2022 17 ALT (U/L) Date Value 07/15/2022 14 WBC Date Value Ref Range Status 08/05/2022 3.54 (L) 3.70 - 11.00 k/uL Final RBC Date Value Ref Range Status 08/05/2022 4.10 (L) 4.20 - 6.00 m/uL Final Hemoglobin Date Value Ref Range Status 08/05/2022 13.6 13.0 - 17.0 g/dL Final Hematocrit Date Value Ref Range Status 08/05/2022 39.3 39.0 - 51.0 % Final MCV Date Value Ref Range Status 08/05/2022 95.9 80.0 - 100.0 fL Final MCH Date Value Ref Range Status 08/05/2022 33.2 26.0 - 34.0 pg Final MCHC Date Value Ref Range Status 08/05/2022 34.6 30.5 - 36.0 g/dL Final RDW-CV Date Value Ref Range Status 08/05/2022 15.1 (H) 11.5 - 15.0 % Final Platelet Count Date Value Ref Range Status 08/05/2022 160 150 - 400 k/uL Final MPV Date Value Ref Range Status 08/05/2022 9.8 9.0 - 12.7 fL Final Abs Neut Date Value Ref Range Status 08/05/2022 2.31 1.45 - 7.50 k/uL Final Lymph% Date Value Ref Range Status 08/05/2022 15.8 % Final Abs Lymph Date Value Ref Range Status 08/05/2022 0.56 (L) 1.00 - 4.00 k/uL Final Cotton% Date Value Ref Range Status 08/05/2022 12.1 % Final Abs Cotton Date Value Ref Range Status 08/05/2022 0.43 <0.87 k/uL Final Eosin% Date Value Ref Range Status 08/05/2022 5.6 % Final Abs Eosin Date Value Ref Range Status 08/05/2022 0.20 <0.46 k/uL Final Baso% Date Value Ref Range Status 08/05/2022 0.8 % Final Abs Baso Date Value Ref Range Status 08/05/2022 0.03 <0.11 k/uL Final PATH: Colonoscopy 12/2021: Imaging: CT of the Chest and Abdomen and Pelvis 12/2021: 1. Numerous bilateral 5 mm or less pulmonary nodules are identified. Correlation with follow-up summations is recommended to assess for stability. 2. Borderline prominent right hilar and subcarinal lymph nodes. These can also be further assessed on follow-up studies. 1. Improved appearance to wall thickening involving the sigmoid colon. 2. No CT evidence for metastatic disease to the abdomen or pelvis. MRI Rectum 01/2022: 6.8 cm upper rectal mass with invasion into the right lateral peritoneal reflection. Multiple suspicious appearing superior rectal lymph nodes. Stage: T4a N+ MRF: Not applicable Sphincter involvement: No. Suspicious extra mesorectal lymph nodes: No. EMVI: Yes. MRI of the rectum 04/2022 post Chemo and XRT: Since MRI 02/03/2022, post treatment primary tumor assessment: Incomplete response (likely residual tumor). -There is interval decrease in tumor bulk with persistent tumor visualized within the upper rectum/sigmoid colon. mrTRG: Grade 4 - Partial response Suspicious Mesorectal lymph nodes: Yes. Interval decrease in size of superior rectal lymph nodes with residual superior rectal lymph node measuring up to 0.4 cm. Suspicious Extramesorectal lymph nodes: No. Assessment and Plan: Hoang White is a 46 year old year old male here for follow up. 1. Upper Rectal Cancer, MRI with T4a,N+ upper rectal disease. Post diverting colostomy and will plan on ISAÍAS and neoadjuvant capecitabine and XRT started 03/10/2022 and completed 04/15/2022. Plan for ISAÍAS and started CAPOX 06/03/2022 and here for cycle 4/5 2. Pulm Nodules-- Follow up CT- Last CT 12/2021 3. TR- Follows cardiology and need surgical revision after CRC has syeda addressed 4. Diarrhea- Resolved See back in 3 weeks for cycle 4/5. Thank you for the kind referral. If there are any questions and or concerns please do not hesitate to contact me at [phone]. Oscar Gonzalez MD Hematology/Medical Oncology [facility] I spent a total of 25 minutes on the date of the service which included preparing to see the patient, [id number] patient care, completing clinical documentation, obtaining and/or reviewing separately obtained history, performing a medically appropriate examination, counseling and educating the patient/family/caregiver, ordering medications, tests, or procedures and communicating with other HCPs (not separately reported). Medical Decision Making: Medical Decision Making Level: 1 - N/A CC: Ana Enriquez MD documented in this encounter [facility] 07-15-2022 Note HNO ID: [id number] Author: Temi Dean PA-C Service: ? Author Type: Physician Scheduler Maintenance Type: Progress Notes Filed: 07/15/2022 9:59 AM Note Text: PATIENT NAME: Hoang White [facility] NO.: [id number] ATTENDING PHYSICIAN: Oscar Gonzalez MD DATE OF SERVICE: July 15 2022 (Elements copied from Dr. Gonzalez's note dated June 24, 2022, have been reviewed and updated where appropriate, and all reflect current assessment and medical decision making during today's encounter, July 15, 2022) CC: I am here for follow up and treatment Diagnosis: 1. Upper rectal cancer, MRI staged T4a,N+,M0- Mod Diff Adenocarcinoma ( DIANNE) 2. Severe TR ( ECHO 12/2021 at [facility]): - The left ventricle is normal in size. Left ventricular systolic function is normal. EF = 60 ? 5% (2D biplane) Normal left ventricular diastolic function. Normal left atrial size. - Severe right atrial and ventricular dilatation. Right ventricular systolic function is normal including normal RV global strain (-24.0%). - Severe tricuspid regurgitation with hepatic vein systolic reversal. Leaflets thickened without obvious active vegetation. - Diastolic flattening of interventricular septum consistent with RV volume overload. - RVOT AT suggests normal mean PA pressures. 3. Previous h/o IVDA Treatment History: 1. 02/21/2022: Laparoscopic end colostomy 2. Xeloda and XRT 03/10/2022-04/15/2022- Plan for ISAÍAS 3. XELOX 06/03/2022 HPI: Hoang returns for cycle 3 of XELOX. Actually feels well and denies any fevers and or chills. Denies any rashes and also nausea well controlled. Denies any neuropathy and appetite stable PAST MEDICAL HISTORY Diagnosis Date Adenocarcinoma of colon (HCC) Endocarditis 2003 Hypothyroidism Mass of colon [address] Jaquez Social History Tobacco Use Smoking status: Every Day Packs/day: 0.50 Years: 25.00 Pack years: 12.50 Types: Cigarettes Smokeless tobacco: Never Vaping Use Vaping Use: Never used Substance Use Topics Alcohol use: Yes Comment: 2 drinks/week; heavy in past Drug use: Not Currently Types: IV Comment: Past drug use of herorin FAMILY HISTORY Problem Relation Age of Onset Breast Cancer Sister Colon Cancer Maternal Grandfather Past medical, social and family history reviewed without any changes. REVIEW OF SYSTEMS GENERAL: No weight loss, malaise or fevers. No night sweats. HEENT: Negative for headaches, No changes in hearing or vision, no nose bleeds or other nasal problems. RESPIRATORY: Negative for cough, wheezing and shortness of breath CARDIOVASCULAR: Negative for chest pain, leg swelling and palpitations GI: Negative for abdominal discomfort, blood in stools or black stools and change in bowel habits : Negative for dysuria, frequency and incontinence MUSCULOSKELETAL: Negative for joint pain or swelling, back pain, and muscle pain. SKIN: Negative for lesions, rash, and itching. HEMATOLOGY/LYMPHOLOGY Negative for prolonged bleeding, bruising easily, and swollen nodes. NEURO: Negative for numbness or tingling of hands/feet. No weakness. PHYSICAL EXAMINATION: There were no vitals taken for this visit. Wt 61.3 kg (135 lb 3.2 oz) BMI 20.85 kg/m2 Last 3 Encounter Wt Readings: Date: Wt: 02/04/2022 61.3 kg (135 lb 3.2 oz) 01/18/2022 62.1 kg (137 lb) 12/29/2021 62.3 kg (137 lb 6.4 oz) General appearance:ECOG PERFORMANCE STATUS: 0- Fully active, able to carry on all pre-disease performance w/o restriction. Patient in NAD. Skin: Skin color, texture, turgor normal. No rashes or lesions. Eyes: Anicteric sclera. Pupils are equally round and reactive to light. Extraocular movements are intact. Lymph Nodes: No cervical, supraclavicular, axillary or inguinal adenopathy. Oropharynx: Lips, mucosa, and tongue normal. Back: No pain to percussion. Negative SLR test Lungs clear to auscultation, No wheezing or rhonchi Heart: RRR without murmur, gallop, or rubs. Abdomen soft, non-tender. No masses, organomegaly Extremities: No deformities. No edema Neuro: Gait and speech normal. Reflexes normal and symmetric. Muscular strength intact. Sensation grossly intact. Rectal: Deferred : Deferred LABS: Glucose (mg/dL) Date Value 06/24/2022 92 Potassium (mmol/L) Date Value 06/24/2022 4.3 Sodium (mmol/L) Date Value 06/24/2022 137 Chloride (mmol/L) Date Value 06/24/2022 103 CO2 (mmol/L) Date Value 06/24/2022 26 Creatinine (mg/dL) Date Value 06/24/2022 0.81 BUN (mg/dL) Date Value 06/24/2022 12 Anion Gap (mmol/L) Date Value 06/24/2022 8 Calcium, Total (mg/dL) Date Value 06/24/2022 9.6 Protein, Total (g/dL) Date Value 06/24/2022 7.2 Albumin (g/dL) Date Value 06/24/2022 4.5 Bilirubin, Total (mg/dL) Date Value 06/24/2022 0.4 Alkaline Phosphatase (U/L) Date Value 06/24/2022 85 AST (U/L) Date Value 06/24/2022 21 ALT (U/L) Date Value 06/24/2022 15 (more content not included)... [facility] 07-15-2022 Note HNO ID: [id number] Author: Kat Jara RN Service: ? Author Type: Registered Nurse Type: Progress Notes Filed: 07/15/2022 2:20 PM Note Text: Patient presents for tx, patient is very specific to which arm and which area we can utilize for IV access. Explained to patient due to trauma from IV drug use there are areas we need to avoid. Patient disagrees and continues to request IV be started in left lower anterior arm where he used to use his veins for drug use, unable to obtain access in this site. Left lateral arm attempted IV access, infiltrated. New nurse requested. Lisa STATON coming to assess patient. [facility] 07-15-2022 Miscellaneous Notes B12 has been ordered Temi Dean PA-C Pt in for tx today, states that he would like to start receiving B12 injections for his energy level and is asking if those can be ordered. He also has trouble with his veins and is requesting that his labs be drawn with his IV start from now on. Please advise. PSS: please schedule accordingly if approved by MM and KK. Angella Gautam RN documented in this encounter [facility] 07-15-2022 History of Present illness Narrative Images from the original note were not included. PATIENT NAME: Hoang White [facility] NO.: [id number] ATTENDING PHYSICIAN: Oscar Gonzalez MD DATE OF SERVICE: July 15 2022 (Elements copied from Dr. Gonzalez's note dated June 24, 2022, have been reviewed and updated where appropriate, and all reflect current assessment and medical decision making during today's encounter, July 15, 2022) CC: I am here for follow up and treatment Diagnosis: 1. Upper rectal cancer, MRI staged T4a,N+,M0- Mod Diff Adenocarcinoma ( DIANNE) 2. Severe TR ( ECHO 12/2021 at [facility]): - The left ventricle is normal in size. Left ventricular systolic function is normal. EF = 60 5% (2D biplane) Normal left ventricular diastolic function. Normal left atrial size. - Severe right atrial and ventricular dilatation. Right ventricular systolic function is normal including normal RV global strain (-24.0%). - Severe tricuspid regurgitation with hepatic vein systolic reversal. Leaflets thickened without obvious active vegetation. - Diastolic flattening of interventricular septum consistent with RV volume overload. - RVOT AT suggests normal mean PA pressures. 3. Previous h/o IVDA Treatment History: 1. 02/21/2022: Laparoscopic end colostomy 2. Xeloda and XRT 03/10/2022-04/15/2022- Plan for ISAÍAS 3. XELOX 06/03/2022 HPI: Hoang returns for cycle 3 of XELOX. Actually feels well and denies any fevers and or chills. Denies any rashes and also nausea well controlled. Denies any neuropathy and appetite stable PAST MEDICAL HISTORY Diagnosis Date Adenocarcinoma of colon (HCC) Endocarditis 2003 Hypothyroidism Mass of colon [address] Jaquez Social History Tobacco Use Smoking status: Every Day Packs/day: 0.50 Years: 25.00 Pack years: 12.50 Types: Cigarettes Smokeless tobacco: Never Vaping Use Vaping Use: Never used Substance Use Topics Alcohol use: Yes Comment: 2 drinks/week; heavy in past Drug use: Not Currently Types: IV Comment: Past drug use of herorin FAMILY HISTORY Problem Relation Age of Onset Breast Cancer Sister Colon Cancer Maternal Grandfather Past medical, social and family history reviewed without any changes. REVIEW OF SYSTEMS GENERAL: No weight loss, malaise or fevers. No night sweats. HEENT: Negative for headaches, No changes in hearing or vision, no nose bleeds or other nasal problems. RESPIRATORY: Negative for cough, wheezing and shortness of breath CARDIOVASCULAR: Negative for chest pain, leg swelling and palpitations GI: Negative for abdominal discomfort, blood in stools or black stools and change in bowel habits : Negative for dysuria, frequency and incontinence MUSCULOSKELETAL: Negative for joint pain or swelling, back pain, and muscle pain. SKIN: Negative for lesions, rash, and itching. HEMATOLOGY/LYMPHOLOGY Negative for prolonged bleeding, bruising easily, and swollen nodes. NEURO: Negative for numbness or tingling of hands/feet. No weakness. PHYSICAL EXAMINATION: There were no vitals taken for this visit. Wt 61.3 kg (135 lb 3.2 oz) BMI 20.85 kg/m2 Last 3 Encounter Wt Readings: Date: Wt: 02/04/2022 61.3 kg (135 lb 3.2 oz) 01/18/2022 62.1 kg (137 lb) 12/29/2021 62.3 kg (137 lb 6.4 oz) General appearance:ECOG PERFORMANCE STATUS: 0- Fully active, able to carry on all pre-disease performance w/o restriction. Patient in NAD. Skin: Skin color, texture, turgor normal. No rashes or lesions. Eyes: Anicteric sclera. Pupils are equally round and reactive to light. Extraocular movements are intact. Lymph Nodes: No cervical, supraclavicular, axillary or inguinal adenopathy. Oropharynx: Lips, mucosa, and tongue normal. Back: No pain to percussion. Negative SLR test Lungs clear to auscultation, No wheezing or rhonchi Heart: RRR without murmur, gallop, or rubs. Abdomen soft, non-tender. No masses, organomegaly Extremities: No deformities. No edema Neuro: Gait and speech normal. Reflexes normal and symmetric. Muscular strength intact. Sensation grossly intact. Rectal: Deferred : Deferred LABS: Glucose (mg/dL) Date Value 06/24/2022 92 Potassium (mmol/L) Date Value 06/24/2022 4.3 Sodium (mmol/L) Date Value 06/24/2022 137 Chloride (mmol/L) Date Value 06/24/2022 103 CO2 (mmol/L) Date Value 06/24/2022 26 Creatinine (mg/dL) Date Value 06/24/2022 0.81 BUN (mg/dL) Date Value 06/24/2022 12 Anion Gap (mmol/L) Date Value 06/24/2022 8 Calcium, Total (mg/dL) Date Value 06/24/2022 9.6 Protein, Total (g/dL) Date Value 06/24/2022 7.2 Albumin (g/dL) Date Value 06/24/2022 4.5 Bilirubin, Total (mg/dL) Date Value 06/24/2022 0.4 Alkaline Phosphatase (U/L) Date Value 06/24/2022 85 AST (U/L) Date Value 06/24/2022 21 ALT (U/L) Date Value 06/24/2022 15 WBC Date Value Ref Range Status 06/24/2022 5.52 3.70 - 11.00 k/uL Final RBC Date Value Ref Range Status 06/24/2022 4.22 4.20 - 6.00 m/uL Final Hemoglobin Date Value Ref Range Status 06/24/2022 13.7 13.0 - 17.0 g/dL Final Hematocrit Date Value Ref Range Status 06/24/2022 40.0 39.0 - 51.0 % Final MCV Date Value Ref Range Status 06/24/2022 94.8 80.0 - 100.0 fL Final MCH Date Value Ref Range Status 06/24/2022 32.5 26.0 - 34.0 pg Final MCHC Date Value Ref Range Status 06/24/2022 34.3 30.5 - 36.0 g/dL Final RDW-CV Date Value Ref Range Status 06/24/2022 14.6 11.5 - 15.0 % Final Platelet Count Date Value Ref Range Status 06/24/2022 259 150 - 400 k/uL Final MPV Date Value Ref Range Status 06/24/2022 9.9 9.0 - 12.7 fL Final Abs Neut Date Value Ref Range Status 06/24/2022 4.13 1.45 - 7.50 k/uL Final Lymph% Date Value Ref Range Status 06/24/2022 9.1 % Final Abs Lymph Date Value Ref Range Status 06/24/2022 0.50 (L) 1.00 - 4.00 k/uL Final Cotton% Date Value Ref Range Status 06/24/2022 10.0 % Final Abs Cotton Date Value Ref Range Status 06/24/2022 0.55 <0.87 k/uL Final Eosin% Date Value Ref Range Status 06/24/2022 5.1 % Final Abs Eosin Date Value Ref Range Status 06/24/2022 0.28 <0.46 k/uL Final Baso% Date Value Ref Range Status 06/24/2022 0.7 % Final Abs Baso Date Value Ref Range Status 06/24/2022 0.04 <0.11 k/uL Final PATH: Colonoscopy 12/2021: Imaging: CT of the Chest and Abdomen and Pelvis 12/2021: 1. Numerous bilateral 5 mm or less pulmonary nodules are identified. Correlation with follow-up summations is recommended to assess for stability. 2. Borderline prominent right hilar and subcarinal lymph nodes. These can also be further assessed on follow-up studies. 1. Improved appearance to wall thickening involving the sigmoid colon. 2. No CT evidence for metastatic disease to the abdomen or pelvis. MRI Rectum 01/2022: 6.8 cm upper rectal mass with invasion into the right lateral peritoneal reflection. Multiple suspicious appearing superior rectal lymph nodes. Stage: T4a N+ MRF: Not applicable Sphincter involvement: No. Suspicious extra mesorectal lymph nodes: No. EMVI: Yes. MRI of the rectum 04/2022 post Chemo and XRT: Since MRI 02/03/2022, post treatment primary tumor assessment: Incomplete response (likely residual tumor). -There is interval decrease in tumor bulk with persistent tumor visualized within the upper rectum/sigmoid colon. mrTRG: Grade 4 - Partial response Suspicious Mesorectal lymph nodes: Yes. Interval decrease in size of superior rectal lymph nodes with residual superior rectal lymph node measuring up to 0.4 cm. Suspicious Extramesorectal lymph nodes: No. Assessment and Plan: Hoang White is a 46 year old year old male here for follow up. 1. Upper Rectal Cancer, MRI with T4a,N+ upper rectal disease. Post diverting colostomy and will plan on ISAÍAS and neoadjuvant capecitabine and XRT started 03/10/2022 and completed 04/15/2022. Plan for ISAÍAS and started CAPOX 06/03/2022 and here for cycle 2. 2. Pulm Nodules-- Follow up CT- Last CT 12/2021 3. TR- Follows cardiology and need surgical revision after CRC has syeda addressed 4. Diarrhea- Resolved 5. Tobacco use--will prescribe nicoderm patches See back in 3 weeks for cycle 3/5. Temi Dean PA-C CC: Ana Enriquez MD documented in this encounter [facility] 07-15-2022 History of Present illness Narrative Patient presents for tx, patient is very specific to which arm and which area we can utilize for IV access. Explained to patient due to trauma from IV drug use there are areas we need to avoid. Patient disagrees and continues to request IV be started in left lower anterior arm where he used to use his veins for drug use, unable to obtain access in this site. Left lateral arm attempted IV access, infiltrated. New nurse requested. Lisa RN coming to assess patient. documented in this encounter [facility] 06-27-2022 Miscellaneous Notes Pt calls stating he still hasn't heard from [facility] regarding his Xeloda pills. Explained to pt that the new script was escribed through to [facility] and they should have it ready to be shipped to him. Instructed pt to call [facility] to schedule delivery. Pt verbalized understanding and will call now. Meghan Pichardo RN documented in this encounter [facility] 06-24-2022 Note HNO ID: [id number] Author: Oscar Gonzalez MD Service: ? Author Type: Physician Type: Progress Notes Filed: 06/24/2022 10:14 AM Note Text: PATIENT NAME: Hoang Zuñigaregorio [facility] NO.: [id number] ATTENDING PHYSICIAN: Oscar Gonzalez MD DATE OF SERVICE: June 24, 2022 Some of the elements of this note have been copied from my previous progress note dated 05/24/2022. All the information has been reviewed carefully. Dear Dr. Ana Enriquez, here is an update on a follow up visit on male Hoang White at the clinic June 24, 2022 Diagnosis: 1. Upper rectal cancer, MRI staged T4a,N+,M0- Mod Diff Adenocarcinoma ( DIANNE) 2. Severe TR ( ECHO 12/2021 at [facility]): - The left ventricle is normal in size. Left ventricular systolic function is normal. EF = 60 ? 5% (2D biplane) Normal left ventricular diastolic function. Normal left atrial size. - Severe right atrial and ventricular dilatation. Right ventricular systolic function is normal including normal RV global strain (-24.0%). - Severe tricuspid regurgitation with hepatic vein systolic reversal. Leaflets thickened without obvious active vegetation. - Diastolic flattening of interventricular septum consistent with RV volume overload. - RVOT AT suggests normal mean PA pressures. 3. Previous h/o IVDA Treatment History: 1. 02/21/2022: Laparoscopic end colostomy 2. Xeloda and XRT 03/10/2022-04/15/2022- Plan for ISAÍAS 3. XELOX 06/03/2022 HPI: Hoang White is a 46 year old year old male here for follow up. Actually feels well and denies any fevers and or chills. Denies any rashes and also nausea well controlled. Denies any neuropathy and appetite stable PAST MEDICAL HISTORY Diagnosis Date Adenocarcinoma of colon (HCC) Endocarditis 2003 Hypothyroidism Mass of colon [address] Jaquez Social History Tobacco Use Smoking status: Every Day Packs/day: 0.50 Years: 25.00 Pack years: 12.50 Types: Cigarettes Smokeless tobacco: Never Vaping Use Vaping Use: Never used Substance Use Topics Alcohol use: Yes Comment: 2 drinks/week; heavy in past Drug use: Not Currently Types: IV Comment: Past drug use of herorin FAMILY HISTORY Problem Relation Age of Onset Breast Cancer Sister Colon Cancer Maternal Grandfather Past medical, social and family history reviewed without any changes. REVIEW OF SYSTEMS GENERAL: No weight loss, malaise or fevers. No night sweats. HEENT: Negative for headaches, No changes in hearing or vision, no nose bleeds or other nasal problems. RESPIRATORY: Negative for cough, wheezing and shortness of breath CARDIOVASCULAR: Negative for chest pain, leg swelling and palpitations GI: Negative for abdominal discomfort, blood in stools or black stools and change in bowel habits : Negative for dysuria, frequency and incontinence MUSCULOSKELETAL: Negative for joint pain or swelling, back pain, and muscle pain. SKIN: Negative for lesions, rash, and itching. HEMATOLOGY/LYMPHOLOGY Negative for prolonged bleeding, bruising easily, and swollen nodes. NEURO: Negative for numbness or tingling of hands/feet. No weakness. PHYSICAL EXAMINATION: BP 134/72 Pulse 61 Temp (Src) 97 (Temporal) Resp 16 Ht 5' 7.874 (1.72m) Wt 135 lb 3.2 oz (61.3kg) SpO2 99% BMI 20.63 kg/(m2). Wt 61.3 kg (135 lb 3.2 oz) BMI 20.85 kg/m2 Last 3 Encounter Wt Readings: Date: Wt: 02/04/2022 61.3 kg (135 lb 3.2 oz) 01/18/2022 62.1 kg (137 lb) 12/29/2021 62.3 kg (137 lb 6.4 oz) General appearance:ECOG PERFORMANCE STATUS: 0- Fully active, able to carry on all pre-disease performance w/o restriction. Patient in NAD. Skin: Skin color, texture, turgor normal. No rashes or lesions. Eyes: Anicteric sclera. Pupils are equally round and reactive to light. Extraocular movements are intact. Lymph Nodes: No cervical, supraclavicular, axillary or inguinal adenopathy. Oropharynx: Lips, mucosa, and tongue normal. Back: No pain to percussion. Negative SLR test Lungs clear to auscultation, No wheezing or rhonchi Heart: RRR without murmur, gallop, or rubs. Abdomen soft, non-tender. No masses, organomegaly Extremities: No deformities. No edema Neuro: Gait and speech normal. Reflexes normal and symmetric. Muscular strength intact. Sensation grossly intact. Rectal: Deferred : Deferred LABS: Glucose (mg/dL) Date Value 05/24/2022 109 Potassium (mmol/L) Date Value 05/24/2022 4.3 Sodium (mmol/L) Date Value 05/24/2022 142 Chloride (mmol/L) Date Value 05/24/2022 108 CO2 (mmol/L) Date Value 05/24/2022 27 Creatinine (mg/dL) Date Value 05/24/2022 0.86 BUN (mg/dL) Date Value 05/24/2022 15 Anion Gap (mmol/L) Date Value 05/24/2022 7 Calcium, Total (mg/dL) Date Value 05/24/2022 9.3 Protein, Total (g/dL) Date Value 05/24/2022 6.7 Albumin (g/dL) Date Value 05/24/2022 4.2 Bilirubin, Total (mg/dL) Date Value 05/24/2022 0.4 Alkaline Phosphata (more content not included)... [facility] 06-24-2022 History of Present illness Narrative Images from the original note were not included. PATIENT NAME: Hoang White [facility] NO.: [id number] ATTENDING PHYSICIAN: Oscar Gonzalez MD DATE OF SERVICE: June 24, 2022 Some of the elements of this note have been copied from my previous progress note dated 05/24/2022. All the information has been reviewed carefully. Dear Dr. Ana Enriquez, here is an update on a follow up visit on male Hoang White at the clinic June 24, 2022 Diagnosis: 1. Upper rectal cancer, MRI staged T4a,N+,M0- Mod Diff Adenocarcinoma ( DIANNE) 2. Severe TR ( ECHO 12/2021 at [facility]): - The left ventricle is normal in size. Left ventricular systolic function is normal. EF = 60 5% (2D biplane) Normal left ventricular diastolic function. Normal left atrial size. - Severe right atrial and ventricular dilatation. Right ventricular systolic function is normal including normal RV global strain (-24.0%). - Severe tricuspid regurgitation with hepatic vein systolic reversal. Leaflets thickened without obvious active vegetation. - Diastolic flattening of interventricular septum consistent with RV volume overload. - RVOT AT suggests normal mean PA pressures. 3. Previous h/o IVDA Treatment History: 1. 02/21/2022: Laparoscopic end colostomy 2. Xeloda and XRT 03/10/2022-04/15/2022- Plan for ISAÍAS 3. XELOX 06/03/2022 HPI: Hoang White is a 46 year old year old male here for follow up. Actually feels well and denies any fevers and or chills. Denies any rashes and also nausea well controlled. Denies any neuropathy and appetite stable PAST MEDICAL HISTORY Diagnosis Date Adenocarcinoma of colon (HCC) Endocarditis 2003 Hypothyroidism Mass of colon [address] Jaquez Social History Tobacco Use Smoking status: Every Day Packs/day: 0.50 Years: 25.00 Pack years: 12.50 Types: Cigarettes Smokeless tobacco: Never Vaping Use Vaping Use: Never used Substance Use Topics Alcohol use: Yes Comment: 2 drinks/week; heavy in past Drug use: Not Currently Types: IV Comment: Past drug use of herorin FAMILY HISTORY Problem Relation Age of Onset Breast Cancer Sister Colon Cancer Maternal Grandfather Past medical, social and family history reviewed without any changes. REVIEW OF SYSTEMS GENERAL: No weight loss, malaise or fevers. No night sweats. HEENT: Negative for headaches, No changes in hearing or vision, no nose bleeds or other nasal problems. RESPIRATORY: Negative for cough, wheezing and shortness of breath CARDIOVASCULAR: Negative for chest pain, leg swelling and palpitations GI: Negative for abdominal discomfort, blood in stools or black stools and change in bowel habits : Negative for dysuria, frequency and incontinence MUSCULOSKELETAL: Negative for joint pain or swelling, back pain, and muscle pain. SKIN: Negative for lesions, rash, and itching. HEMATOLOGY/LYMPHOLOGY Negative for prolonged bleeding, bruising easily, and swollen nodes. NEURO: Negative for numbness or tingling of hands/feet. No weakness. PHYSICAL EXAMINATION: BP 134/72 Pulse 61 Temp (Src) 97 (Temporal) Resp 16 Ht 5' 7.874 (1.72m) Wt 135 lb 3.2 oz (61.3kg) SpO2 99% BMI 20.63 kg/(m^2). Wt 61.3 kg (135 lb 3.2 oz) BMI 20.85 kg/m2 Last 3 Encounter Wt Readings: Date: Wt: 02/04/2022 61.3 kg (135 lb 3.2 oz) 01/18/2022 62.1 kg (137 lb) 12/29/2021 62.3 kg (137 lb 6.4 oz) General appearance:ECOG PERFORMANCE STATUS: 0- Fully active, able to carry on all pre-disease performance w/o restriction. Patient in NAD. Skin: Skin color, texture, turgor normal. No rashes or lesions. Eyes: Anicteric sclera. Pupils are equally round and reactive to light. Extraocular movements are intact. Lymph Nodes: No cervical, supraclavicular, axillary or inguinal adenopathy. Oropharynx: Lips, mucosa, and tongue normal. Back: No pain to percussion. Negative SLR test Lungs clear to auscultation, No wheezing or rhonchi Heart: RRR without murmur, gallop, or rubs. Abdomen soft, non-tender. No masses, organomegaly Extremities: No deformities. No edema Neuro: Gait and speech normal. Reflexes normal and symmetric. Muscular strength intact. Sensation grossly intact. Rectal: Deferred : Deferred LABS: Glucose (mg/dL) Date Value 05/24/2022 109 Potassium (mmol/L) Date Value 05/24/2022 4.3 Sodium (mmol/L) Date Value 05/24/2022 142 Chloride (mmol/L) Date Value 05/24/2022 108 CO2 (mmol/L) Date Value 05/24/2022 27 Creatinine (mg/dL) Date Value 05/24/2022 0.86 BUN (mg/dL) Date Value 05/24/2022 15 Anion Gap (mmol/L) Date Value 05/24/2022 7 Calcium, Total (mg/dL) Date Value 05/24/2022 9.3 Protein, Total (g/dL) Date Value 05/24/2022 6.7 Albumin (g/dL) Date Value 05/24/2022 4.2 Bilirubin, Total (mg/dL) Date Value 05/24/2022 0.4 Alkaline Phosphatase (U/L) Date Value 05/24/2022 87 AST (U/L) Date Value 05/24/2022 17 ALT (U/L) Date Value 05/24/2022 17 WBC Date Value Ref Range Status 06/03/2022 6.72 3.70 - 11.00 k/uL Final RBC Date Value Ref Range Status 06/03/2022 4.18 (L) 4.20 - 6.00 m/uL Final Hemoglobin Date Value Ref Range Status 06/03/2022 13.4 13.0 - 17.0 g/dL Final Hematocrit Date Value Ref Range Status 06/03/2022 38.7 (L) 39.0 - 51.0 % Final MCV Date Value Ref Range Status 06/03/2022 92.6 80.0 - 100.0 fL Final MCH Date Value Ref Range Status 06/03/2022 32.1 26.0 - 34.0 pg Final MCHC Date Value Ref Range Status 06/03/2022 34.6 30.5 - 36.0 g/dL Final RDW-CV Date Value Ref Range Status 06/03/2022 13.5 11.5 - 15.0 % Final Platelet Count Date Value Ref Range Status 06/03/2022 230 150 - 400 k/uL Final MPV Date Value Ref Range Status 06/03/2022 9.7 9.0 - 12.7 fL Final Abs Neut Date Value Ref Range Status 06/03/2022 5.33 1.45 - 7.50 k/uL Final Lymph% Date Value Ref Range Status 06/03/2022 8.2 % Final Abs Lymph Date Value Ref Range Status 06/03/2022 0.55 (L) 1.00 - 4.00 k/uL Final Cotton% Date Value Ref Range Status 06/03/2022 7.4 % Final Abs Cotton Date Value Ref Range Status 06/03/2022 0.50 <0.87 k/uL Final Eosin% Date Value Ref Range Status 06/03/2022 4.0 % Final Abs Eosin Date Value Ref Range Status 06/03/2022 0.27 <0.46 k/uL Final Baso% Date Value Ref Range Status 06/03/2022 0.7 % Final Abs Baso Date Value Ref Range Status 06/03/2022 0.05 <0.11 k/uL Final PATH: Colonoscopy 12/2021: Imaging: CT of the Chest and Abdomen and Pelvis 12/2021: 1. Numerous bilateral 5 mm or less pulmonary nodules are identified. Correlation with follow-up summations is recommended to assess for stability. 2. Borderline prominent right hilar and subcarinal lymph nodes. These can also be further assessed on follow-up studies. 1. Improved appearance to wall thickening involving the sigmoid colon. 2. No CT evidence for metastatic disease to the abdomen or pelvis. MRI Rectum 01/2022: 6.8 cm upper rectal mass with invasion into the right lateral peritoneal reflection. Multiple suspicious appearing superior rectal lymph nodes. Stage: T4a N+ MRF: Not applicable Sphincter involvement: No. Suspicious extra mesorectal lymph nodes: No. EMVI: Yes. MRI of the rectum 04/2022 post Chemo and XRT: Since MRI 02/03/2022, post treatment primary tumor assessment: Incomplete response (likely residual tumor). -There is interval decrease in tumor bulk with persistent tumor visualized within the upper rectum/sigmoid colon. mrTRG: Grade 4 - Partial response Suspicious Mesorectal lymph nodes: Yes. Interval decrease in size of superior rectal lymph nodes with residual superior rectal lymph node measuring up to 0.4 cm. Suspicious Extramesorectal lymph nodes: No. Assessment and Plan: Hoang White is a 46 year old year old male here for follow up. 1. Upper Rectal Cancer, MRI with T4a,N+ upper rectal disease. Post diverting colostomy and will plan on ISAÍAS and neoadjuvant capecitabine and XRT started 03/10/2022 and completed 04/15/2022. Plan for ISAÍAS and started CAPOX 06/03/2022 and here for cycle 2. 2. Pulm Nodules-- Follow up CT- Last CT 12/2021 3. TR- Follows cardiology and need surgical revision after CRC has syeda addressed 4. Diarrhea- Resolved See back in 3 weeks for cycle 3/5. Thank you for the kind referral. If there are any questions and or concerns please do not hesitate to contact me at [phone]. Oscar Gonzalez MD Hematology/Medical Oncology [facility] spent a total of 25 minutes on the date of the service which included preparing to see the patient, [id number] patient care, completing clinical documentation, obtaining and/or reviewing separately obtained history, performing a medically appropriate examination, counseling and educating the patient/family/caregiver, ordering medications, tests, or procedures and communicating with other HCPs (not separately reported). Medical Decision Making: Medical Decision Making Level: 1 - N/A CC: Ana Enriquez MD documented in this encounter [facility] 06-23-2022 Miscellaneous Notes Pt is due to start treatment tomorrow and doesn't have any Xeloda. Please sign pending script. Thanks Meghan Pichardo RN documented in this encounter [facility] 06-10-2022 Miscellaneous Notes All paperwork faxed on 04/20/22. Ava Lewis Disability paperwork completed and placed in folder to be signed. Please fax all visit notes in folder along with his paperwork. Ava Lewis documented in this encounter [facility] 06-08-2022 Miscellaneous Notes Message left for pt to call our office back. Meghan Pichardo RN CYCLE 1/DAY 1 POST TREATMENT CALL Today's date: June 07, 2022 Treatment Regimen: Capox C1D1 Date: 06/03/22 Called patient and message left for pt to call our office back. Meghan Pichardo RN documented in this encounter [facility] 06-03-2022 History of Present illness Narrative SOCIAL WORK Date of Service:06/03/22 Hoang Whtie is a 46 year old male being seen for initial social work assessment. At this time, social work service is declined/deferred based on: he is not interested. PLAN: Follow up on an as needed basis Patient is listed in the First Time Treatment List. SW met with Patient in the infusion room. SW briefly introduced herself to the Patient. Patient was not interested in speaking with this SW. Sw left a handout explaining the services this SW offers. SW will remain available and will follow up as appropriate. AXEL Poon documented in this encounter [facility] 06-03-2022 Miscellaneous Notes 1 day's dose needed while patient is waiting for mail order to arrive today. Elvin Pitts rPh documented in this encounter [facility] 06-03-2022 Miscellaneous Notes Confirmed with Beny that capecitabine is out for delivery and will be delivered via UPS by 7 PM 06/03/22, no signature required Tracking #: [id number] Will have 1 dose available at [facility] Elvin Pitts rPh Discussed with pt at his education visit today. Pt notified to contact [facility] as soon as his education was complete. Pt verbalized understanding and number given to pt. Then called pt back regarding message below. Voicemail received. Notified pt on his voicemail that we have a couple options regarding his Xeloda when he is here in the morning. Encouraged pt to call our office back. Meghan Pichardo RN Phone call placed to Ben[facility] to check status of capecitabine prescription for CAPOX regimen. [facility] has been trying to reach out to patient with no success. Patient has chemo education via phone today with Meghan Pichardo, RN Insurance Account Executive. Forwarded this information to Meghan to discuss with Hoang: [facility] to schedule a delivery of your capecitabine that you will need for treatment tomorrow 06/03/22 ( .) Please let them know that you will need this to be shipped overnight to you. The c s s representative stated this is possible, if you call them prior to 6pm 06/02/22. Options available for am dose if he does not have any left from concurrent therapy include: 1. Purchasing 1 days dose from retail 2. Repository 1 days dose Jackie Pitts RPh documented in this encounter [facility] 06-02-2022 History of Present illness Narrative ONCOLOGY PATIENT EDUCATION NOTE Telephone education TOPIC: Chemotherapy, Medications: oxaliplatin with Xeloda READINESS TO LEARN: COGNITIVE ABILITY: Alert and oriented MOTIVATION TO LEARN: Interested FAMILY SUPPORT: High - Very involved in pt care INSTRUCTION PROVIDED TO: Patient INSTRUCTION PROVIDED BY: Nurse Coordinator PATIENT LEARNS BEST BY: Multiple Methods FACTORS AFFECTING LEARNING: None PHYSICAL LIMITATIONS AFFECTING LEARNING: None LEARNING RESPONSE DIAGNOSIS: rectosigmoid cancer METHOD OF INSTRUCTION: Individual instruction Written instruction - handouts Verbal instruction Telephone education PATIENT/FAMILY RESPONSE: Verbalizes understanding of: CHEMOTHERAPY-Regimen, toxicity and side effects INFECTION MANAGEMENT-Signs and symptoms of an infection and importance of contacting the physician MEDICAL REGIMEN-Importance of following prescribed medical regimen MEDICATION DOSE MISSED-Correct action to take if medication dose is missed MEDICATION PRESCRIBED-Accurate knowledge of prescribed medication prior to discharge MEDICATION ROUTE-Correct route for administration of the prescribed medication MEDICATION SIDE EFFECTS-Side effects associated with the medication that warrant a call to the physician PATIENT SAFETY PRINCIPLES SYMPTOM MANAGEMENT-Correct actions to take to manage symptoms associated with his/her disease/illness WORSENING CONDITION-Signs and symptoms of a worsening condition that warrant a call to the physician Information received as demonstrated by interest and questions FOLLOW UP PLAN: Patient instructed to call with any further issues Recommend - Recommend continued instruction and follow up as directed Follow up phone call. Contact information given. SUPPLEMENTAL MATERIAL: Written material was provided at this visit with the following information: - Chemotherapy education was provided by a pharmacist NO - Side effect management information was provided/discussed including but not limited to: abdominal discomfort, anemia, appetite changes, arthralgia, bowel habit changes, chest pain, cold sensitivity, diet, electrolyte disturbances, fatigue, fluid retention, hand-foot syndrome, headache, hypersensitivity reaction, infection, myalgia, nausea/vomitting, neutropenia, peripheral neuropathy, rash, risk for DVT, shortness of breath, skin changes, taste changes, thrombocytopenia YES - Provided important phone numbers and contacts during and after hours. YES - Provided information on symptoms that require immediate assistance. YES - Provided Chemotherapy when to call handouts YES - Preventing infection. YES - Treatment schedule and confirmation of appointment times. YES - Available support groups. NA - The importance of contraception during the course of chemotherapy YES - Neutropenic fever protocol discussed with patient, which included the importance of reporting any fever of 100.4F (38.0C) or greater to the healthcare team as noted on the provided wallet card and/or magnet. YES - Patient services information. YES - Pt has antiemetics at home if needed from previous treatment. Pt needs to refill his xeloda through [facility]. Phone number provided to pt and he will call today. 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 Pt is to receive his xeloda shipment overnight through [facility]. Time Spent: 25 minutes REFERRAL (RECOMMENDATION): N/A Meghan Pichardo RN documented in this encounter [facility] 05-30-2022 Miscellaneous Notes Summary: Research Follow Up GUARDIAN IRB# [id number] IRB # [id number] Tight perioperative blood pressure management to reduce serious cardiovascular, renal, and cognitive complications: The GUARDIAN trial PI: Mary Solorio MD, LUCIA, FASA. Outcomes Research Department. Anesthesia [place]. [facility]. This is a research study note. Patient assessments recorded here should not guide either clinical care or clinical decision-making. I called the patient, Hoang White, today regarding follow-up for the study IRB [id number] Tight Perioperative Blood pressure Management to Reduce Serious Cardiovascular, renal, and Cognitive Complications (GUARDIAN) Trial. The patient said to call back tomorrow. Catalina Muhammad Research Scheduler Maintenance Department of OUTCOMES RESEARCH Anesthesiology [place] documented in this encounter [facility] 05-25-2022 Miscellaneous Notes Summary: Research Follow Up Karthikeyan IRB# [id number] IRB # [id number] Tight perioperative blood pressure management to reduce serious cardiovascular, renal, and cognitive complications: The GUARDIAN trial PI: Mary Solorio MD, LUCIA, FASA. Outcomes Research Department. Anesthesia [place]. [facility]. This is a research study note. Patient assessments recorded here should not guide either clinical care or clinical decision-making. Patient was unable to be reached by phone. I left a voicemail to call back at earliest convenience. Will call again at a later date. Catalina Muhammad Research Scheduler Maintenance Outcomes Research [facility] documented in this encounter [facility] 05-25-2022 Miscellaneous Notes Patient was in to see med onc yesterday. Follow up as scheduled. Janine Holliday RN Call placed to patient to check status post XRT. LM requesting CB. Janine Holliday RN documented in this encounter [facility] 05-24-2022 Miscellaneous Notes Must use [facility] documented in this encounter [facility] 05-24-2022 History of Present illness Narrative Images from the original note were not included. PATIENT NAME: Hoang White [facility] NO.: [id number] ATTENDING PHYSICIAN: Oscar Gonzalez MD DATE OF SERVICE: May 24, 2022 Some of the elements of this note have been copied from my previous progress note dated 04/12/2022. All the information has been reviewed carefully. Dear Dr. Ana Enriquez, here is an update on a follow up visit on male Hoang White at the clinic May 24, 2022 Diagnosis: 1. Upper rectal cancer, MRI staged T4a,N+,M0- Mod Diff Adenocarcinoma ( DIANNE) 2. Severe TR ( ECHO 12/2021 at [facility]): - The left ventricle is normal in size. Left ventricular systolic function is normal. EF = 60 5% (2D biplane) Normal left ventricular diastolic function. Normal left atrial size. - Severe right atrial and ventricular dilatation. Right ventricular systolic function is normal including normal RV global strain (-24.0%). - Severe tricuspid regurgitation with hepatic vein systolic reversal. Leaflets thickened without obvious active vegetation. - Diastolic flattening of interventricular septum consistent with RV volume overload. - RVOT AT suggests normal mean PA pressures. 3. Previous h/o IVDA Treatment History: 1. 02/21/2022: Laparoscopic end colostomy 2. Xeloda and XRT 03/10/2022-04/15/2022- Plan for ISAÍAS HPI: Hoang White is a 46 year old year old male here for follow up. Actually feels well and denies any fevers and or chills. Denies any rashes and also denies any LINDER. PAST MEDICAL HISTORY Diagnosis Date Adenocarcinoma of colon (HCC) Endocarditis 2003 Hypothyroidism Mass of colon [address] Jaquez Social History Tobacco Use Smoking status: Current Every Day Smoker Packs/day: 0.50 Years: 25.00 Pack years: 12.50 Smokeless tobacco: Never Used Vaping Use Vaping Use: Never used Substance Use Topics Alcohol use: Yes Comment: 2 drinks/week; heavy in past Drug use: Not Currently Types: IV Comment: Past drug use of herorin FAMILY HISTORY Problem Relation Age of Onset Breast Cancer Sister Colon Cancer Maternal Grandfather Past medical, social and family history reviewed without any changes. REVIEW OF SYSTEMS GENERAL: No weight loss, malaise or fevers. No night sweats. HEENT: Negative for headaches, No changes in hearing or vision, no nose bleeds or other nasal problems. RESPIRATORY: Negative for cough, wheezing and shortness of breath CARDIOVASCULAR: Negative for chest pain, leg swelling and palpitations GI: Negative for abdominal discomfort, blood in stools or black stools and change in bowel habits : Negative for dysuria, frequency and incontinence MUSCULOSKELETAL: Negative for joint pain or swelling, back pain, and muscle pain. SKIN: Negative for lesions, rash, and itching. HEMATOLOGY/LYMPHOLOGY Negative for prolonged bleeding, bruising easily, and swollen nodes. NEURO: Negative for numbness or tingling of hands/feet. No weakness. PHYSICAL EXAMINATION: BP 101/71 Pulse 57 Temp (Src) 98 (Temporal) Resp 16 Ht 5' 7.992 (1.73m) Wt 141 lb 12.8 oz (64.3kg) SpO2 99% BMI 21.57 kg/(m^2). Wt 61.3 kg (135 lb 3.2 oz) BMI 20.85 kg/m2 Last 3 Encounter Wt Readings: Date: Wt: 02/04/2022 61.3 kg (135 lb 3.2 oz) 01/18/2022 62.1 kg (137 lb) 12/29/2021 62.3 kg (137 lb 6.4 oz) General appearance:ECOG PERFORMANCE STATUS: 0- Fully active, able to carry on all pre-disease performance w/o restriction. Patient in NAD. Skin: Skin color, texture, turgor normal. No rashes or lesions. Eyes: Anicteric sclera. Pupils are equally round and reactive to light. Extraocular movements are intact. Lymph Nodes: No cervical, supraclavicular, axillary or inguinal adenopathy. Oropharynx: Lips, mucosa, and tongue normal. Back: No pain to percussion. Negative SLR test Lungs clear to auscultation, No wheezing or rhonchi Heart: RRR without murmur, gallop, or rubs. Abdomen soft, non-tender. No masses, organomegaly Extremities: No deformities. No edema Neuro: Gait and speech normal. Reflexes normal and symmetric. Muscular strength intact. Sensation grossly intact. Rectal: Deferred : Deferred LABS: Glucose (mg/dL) Date Value 04/12/2022 106 Potassium (mmol/L) Date Value 04/12/2022 4.3 Sodium (mmol/L) Date Value 04/12/2022 139 Chloride (mmol/L) Date Value 04/12/2022 105 CO2 (mmol/L) Date Value 04/12/2022 24 Creatinine (mg/dL) Date Value 04/12/2022 0.75 BUN (mg/dL) Date Value 04/12/2022 7 Anion Gap (mmol/L) Date Value 04/12/2022 10 Calcium, Total (mg/dL) Date Value 04/12/2022 10.0 Protein, Total (g/dL) Date Value 04/12/2022 7.9 Albumin (g/dL) Date Value 04/12/2022 4.8 Bilirubin, Total (mg/dL) Date Value 04/12/2022 0.5 Alkaline Phosphatase (U/L) Date Value 04/12/2022 97 AST (U/L) Date Value 04/12/2022 28 ALT (U/L) Date Value 04/12/2022 32 WBC Date Value Ref Range Status 05/24/2022 5.86 3.70 - 11.00 k/uL Final RBC Date Value Ref Range Status 05/24/2022 4.13 (L) 4.20 - 6.00 m/uL Final Hemoglobin Date Value Ref Range Status 05/24/2022 13.2 13.0 - 17.0 g/dL Final Hematocrit Date Value Ref Range Status 05/24/2022 39.0 39.0 - 51.0 % Final MCV Date Value Ref Range Status 05/24/2022 94.4 80.0 - 100.0 fL Final MCH Date Value Ref Range Status 05/24/2022 32.0 26.0 - 34.0 pg Final MCHC Date Value Ref Range Status 05/24/2022 33.8 30.5 - 36.0 g/dL Final RDW-CV Date Value Ref Range Status 05/24/2022 14.3 11.5 - 15.0 % Final Platelet Count Date Value Ref Range Status 05/24/2022 223 150 - 400 k/uL Final MPV Date Value Ref Range Status 05/24/2022 10.1 9.0 - 12.7 fL Final Abs Neut Date Value Ref Range Status 05/24/2022 4.35 1.45 - 7.50 k/uL Final Lymph% Date Value Ref Range Status 05/24/2022 11.4 % Final Abs Lymph Date Value Ref Range Status 05/24/2022 0.67 (L) 1.00 - 4.00 k/uL Final Cotton% Date Value Ref Range Status 05/24/2022 7.7 % Final Abs Cotton Date Value Ref Range Status 05/24/2022 0.45 <0.87 k/uL Final Eosin% Date Value Ref Range Status 05/24/2022 5.5 % Final Abs Eosin Date Value Ref Range Status 05/24/2022 0.32 <0.46 k/uL Final Baso% Date Value Ref Range Status 05/24/2022 1.0 % Final Abs Baso Date Value Ref Range Status 05/24/2022 0.06 <0.11 k/uL Final PATH: Colonoscopy 12/2021: Imaging: CT of the Chest and Abdomen and Pelvis 12/2021: 1. Numerous bilateral 5 mm or less pulmonary nodules are identified. Correlation with follow-up summations is recommended to assess for stability. 2. Borderline prominent right hilar and subcarinal lymph nodes. These can also be further assessed on follow-up studies. 1. Improved appearance to wall thickening involving the sigmoid colon. 2. No CT evidence for metastatic disease to the abdomen or pelvis. MRI Rectum 01/2022: 6.8 cm upper rectal mass with invasion into the right lateral peritoneal reflection. Multiple suspicious appearing superior rectal lymph nodes. Stage: T4a N+ MRF: Not applicable Sphincter involvement: No. Suspicious extra mesorectal lymph nodes: No. EMVI: Yes. MRI of the rectum 04/2022 post Chemo and XRT: Since MRI 02/03/2022, post treatment primary tumor assessment: Incomplete response (likely residual tumor). -There is interval decrease in tumor bulk with persistent tumor visualized within the upper rectum/sigmoid colon. mrTRG: Grade 4 - Partial response Suspicious Mesorectal lymph nodes: Yes. Interval decrease in size of superior rectal lymph nodes with residual superior rectal lymph node measuring up to 0.4 cm. Suspicious Extramesorectal lymph nodes: No. Assessment and Plan: Hoang White is a 46 year old year old male here for follow up. 1. Upper Rectal Cancer, MRI with T4a,N+ upper rectal disease. Post diverting colostomy and will plan on ISAÍAS and neoadjuvant capecitabine and XRT started 03/10/2022 and completed 04/15/2022. Plan for ISAÍAS and will start CAPOX next week. Toxicities discussed in detail as well. 2. Pulm Nodules-- Follow up CT- Last CT 12/2021 3. TR- Follows cardiology and need surgical revision after CRC has syeda addressed 4. Diarrhea- Resolved Chemo teach and start next week Thank you for the kind referral. If there are any questions and or concerns please do not hesitate to contact me at [phone]. Oscar Gonzalez MD Hematology/Medical Oncology [facility] spent a total of 25 minutes on the date of the service which included preparing to see the patient, [id number] patient care, completing clinical documentation, obtaining and/or reviewing separately obtained history, performing a medically appropriate examination, counseling and educating the patient/family/caregiver, ordering medications, tests, or procedures and communicating with other HCPs (not separately reported). Medical Decision Making: Medical Decision Making Level: 1 - N/A CC: Ana Enriquez MD documented in this encounter [facility] 05-24-2022 Nurse Note Education on flexible sigmoidoscopy given. Per patient request, he is scheduled for June 30 at [facility]. No other questions at this time. documented in this encounter [facility] 05-24-2022 History of Present illness Narrative COLORECTAL SURGERY May 24, 2022 Hoang White Chief Complaint: rectal cancer History of Present Illness: Hoang White is a 46 year old male presents to the office for a follow up evaluation after undergoing a Laparoscopic Divided End Loop Sigmoid Colostomy on 02/21/2022 for rectal cancer. Symptoms: Bleeding: No Change in stool/constipation: Diarrhea w/ RT, resolved now Nausea/emesis: No Abdominal pain: No Weight change in last 6 months: Stable, slightly increased Functional status: Independent PMH: Cardiac hx - IVDU in remission c/b endocarditis with severe TR, severe, RV dilation Prior pelvic radiation: No PSH: Right inguinal hernia repair Family history of CRC: maternal grandfather w/ CRC diagnosed in his 70s Endoscopist: Kishan Jaquez Medical oncologist: Oscar Gonzalez Radiation oncologist: Tylor Davalos Colonoscopy date/findings: 12/24/21 Partially obstructing large circumferential mass, rectosigmoid at 10 cm, multiple biopsies obtained and tattooed. Colonoscopy pathology: Rectosigmoid colon mass: invasive moderately differentiated adenocarcinoma. CT chest date/findings: 01/13/22 1. Numerous bilateral 5 mm or less pulmonary nodules are identified. Correlation with follow-up summations is recommended to assess for stability. 2. Borderline prominent right hilar and subcarinal lymph nodes. These can also be further assessed on follow-up studies. 1. Improved appearance to wall thickening involving the sigmoid colon. 2. No CT evidence for metastatic disease to the abdomen or pelvis. CT abdomen date/findings: 01/13/22 1. Numerous bilateral 5 mm or less pulmonary nodules are identified. Correlation with follow-up summations is recommended to assess for stability. 2. Borderline prominent right hilar and subcarinal lymph nodes. These can also be further assessed on follow-up studies. 1. Improved appearance to wall thickening involving the sigmoid colon. 2. No CT evidence for metastatic disease to the abdomen or pelvis. MRI rectum date/findings: 02/03/22 6.8 cm upper rectal mass with invasion into the right lateral peritoneal reflection. Multiple suspicious appearing superior rectal lymph nodes. Stage: T4a N+ MRF: Not applicable Sphincter involvement: No. Suspicious extra mesorectal lymph nodes: No. EMVI: Yes. 05/12/22 Since MRI 02/03/2022, post treatment primary tumor assessment: Incomplete response (likely residual tumor). -There is interval decrease in tumor bulk with persistent tumor visualized within the upper rectum/sigmoid colon. mrTRG: Grade 4 - Partial response Suspicious Mesorectal lymph nodes: Yes. Interval decrease in size of superior rectal lymph nodes with residual superior rectal lymph node measuring up to 0.4 cm. Suspicious Extramesorectal lymph nodes: No. Additional imaging: n/a CEA date/level: 02/04/22 25.4 Clinical stage: stage IIIC, [id number] Treatment: 5000 cGy in 25 fractions, 2 VMAT/Rapid Arcs, 10X with daily CBCT Imaging TOTAL: 5000 cGy in 25 fractions with concurrent Xeloda Plan for CAPOX Pathologic stage: TBD Surveillance primary physician: Carlos Surveillance plan: TBD PAST MEDICAL HISTORY Diagnosis Date Adenocarcinoma of colon (HCC) Endocarditis 2003 Hypothyroidism Mass of colon [address] Jaquez PAST SURGICAL HISTORY Procedure Laterality Date COLONSCOPY SCREENING HIGH RISK 2021 COLOSTOMY 02/21/2022 Laparoscopic Divided End Loop Sigmoid Colostomy EGD PAST SURGICAL HISTORY OF Right 2012 inguinal PAST SURGICAL HISTORY OF 2020 teeth pullled out Current Outpatient Medications Medication Sig Dispense Refill capecitabine (XELODA) 500 mg tablet Take 3 tablets (1,500 mg) by mouth twice daily for 14 days. and 7 days off. (21 day cycle) Start day you receive oxaliplatin every cycle Oxaliplatin 84 tablet 4 buPROPion XL (WELLBUTRIN XL) 150 mg 24 hr tablet Take 1 tablet by mouth once daily for 5 days. 5 tablet 0 buPROPion XL (WELLBUTRIN XL) 300 mg 24 hr tablet Take 1 tablet by mouth once daily. Take wellbutrin 150 mg tablet daily for 5 days before starting 300 mg dose daily 30 tablet 2 prochlorperazine (COMPAZINE) 10 mg tablet Take 1 tablet by mouth every 6 hours as needed. 100 tablet 2 ondansetron (ZOFRAN) 8 mg tablet Take 1 tablet by mouth every 8 hours as needed for nausea/vomiting. 90 tablet 2 loratadine (CLARITIN) 10 mg tablet Take 10 mg by mouth once daily. atorvastatin (LIPITOR) 10 mg tablet Take 10 mg by mouth once daily. PROBIOTIC FORMULA, INULIN, 1 billion-250 cell-mg cap Take 1 capsule by mouth once daily. acetaminophen (TYLENOL) 500 mg tablet Take 2 tablets by mouth every 6 hours. gabapentin (NEURONTIN) 300 mg capsule Take 1 capsule by mouth every 8 hours for 14 days. 42 capsule 0 lactobacillus rhamnosus (CULTURELLE) 10 billion cell capsule Take 1 capsule by mouth once daily. 30 capsule 0 traMADol (ULTRAM) 50 mg tablet Take 1 tablet by mouth every 6 hours as needed. 25 tablet 0 nicotine (NICODERM) 21 mg/24 hr Apply 1 Patch as directed once daily. 30 Patch 0 levothyroxine (SYNTHROID) 125 mcg tablet Take 125 mcg by mouth once daily. Ibuprofen 200 mg cap Take by mouth every 6 hours as needed. Current Facility-Administered Medications Medication Dose Route Frequency Provider Last Rate Last Admin perflutren lipid microspheres 1.3 mL in NaCl (PF) 0.9% 10 mL injection (DEFINITY) INTRAVENOUS DIRECTED PRTravis Gonzlaez MD sodium chloride 0.9 % (flush) 10 mL (BD POSIFLUSH) 10 mL INTRAVENOUS DIRECTED PRTravis Gonzalez MD ALLERGIES No Known Allergies FAMILY HISTORY Problem Relation Age of Onset Breast Cancer Sister Colon Cancer Maternal Grandfather Social History Tobacco Use Smoking status: Current Every Day Smoker Packs/day: 0.50 Years: 25.00 Pack years: 12.50 Smokeless tobacco: Never Used Vaping Use Vaping Use: Never used Substance Use Topics Alcohol use: Yes Comment: 2 drinks/week; heavy in past Drug use: Not Currently Types: IV Comment: Past drug use of herorin Physical Exam: BP 108/80 Pulse 71 Temp 36.8 C (98.3 F) Resp 16 SpO2 98% General Appearance: Well appearing, alert, in no acute distress, well-hydrated, well nourished. Abdomen: soft ND NT L side colostomy p/p/p of stool. Incisions well healed no hernias No inguinal LAD. Assessment Assessment and Plan: Hoang White is a 46 year old male with stage IIIC, [id number] upper rectal adenocarcinoma s/p laparoscopic diverting end loop sigmoid colostomy and neoadjuvant chemo/RT. Partial response on interval MRI rectum with plan to continue consolidation CAPOX to complete ISAÍAS. Flex sig between RT and chemotherapy. We discussed plan to complete ISAÍAS, then repeat staging and flex sig prior to planned colostomy takedown, LAR and diverting loop ileostomy. Medical Decision Making: Data Reviewed: Tests & Documents Reviewed/ordered: Review of prior notes from myself, rad onc, med onc Review of Imaging: MRI Pelvis Review of Labs: CEA Additional testing or imaging to be ordered: flex sig I have independently interpreted: MRI Pelvis I have discussed Hoang White's treatment plan and/or results with the patient and his partner, Drs. Gonzalez and Anoop. I spent a total of 40 minutes on the date of the service which included preparing to see the patient, [id number] patient care, completing clinical documentation, obtaining and/or reviewing separately obtained history, performing a medically appropriate examination, counseling and educating the patient/family/caregiver, ordering medications, tests, or procedures, communicating with other HCPs (not separately reported), independently interpreting results (not separately reported), communicating results to the patient/family/caregiver and care coordination (not separately reported). Ana Enriquez MD Colorectal Surgery documented in this encounter [facility] 05-12-2022 Miscellaneous Notes Return to work letter unable to be faxed to [phone], called company they said that there fax is not working correct. Mailed to patient, copy placed in scanning. Bárbara Sexton MA documented in this encounter [facility] 05-12-2022 Miscellaneous Notes Radiology Service Progress Note DATE OF SERVICE: May 12, 2022 TIME: 2:01 PM PATIENT IDENTITY VERIFICATION COMPLETED USING TWO (2) STANDARD IDENTIFIERS: Name and Date of confirmed by patient verbally. FALL SCREENING: Has the patient had 2 falls in the last year or 1 fall with injury or currently using an Ambulatory Assistive Device (Walker, Cane, Wheelchair, Crutches, etc.)? No PATIENT GENDER DATA: Male PATIENT RELEVANT IMPLANT DATA REVIEWED: Yes ALLERGIES: Reviewed and unchanged CONTRAST ALLERGY: NO. EXAM: MRI - CONTRAST TYPE: GROUP II PERIPHERAL IV DATA: Ambulatory: A peripheral IV was started in the Right hand with a Butterfly: 23 gauge. RADIOLOGY DEPARTMENT: MR; Exam(s) Completed: Body: Rectal SIGNATURE: LEROY Larson PATIENT NAME: Hoang White DATE: May 12, 2022 TIME: 2:01 PM documented in this encounter [facility] 05-03-2022 Miscellaneous Notes Pt notified and requests that we fax the letter to [employer]. Pt does not have the fax number. Echo fernandez/ Nory @ [employer]. Instructed to fax letter to [phone]. Letter faxed as requested. Beverly Black RN Done Pt requesting a letter releasing him back to work starting 05/09/22. Asks that we include in the letter that he be able to work 40 hrs/week w/ no heavy lifting. Will you write? Beverly Black RN documented in this encounter [facility] 04-22-2022 Miscellaneous Notes Message left with this information on pt's voicemail Meghan Pichardo RN Signed Call placed to pt's pharmacy and he finished in 2019 at a dose of 300 mg daily. Discussed with pharmacist and recommended starting at the 150 mg dose for 5 days prior to taking the 300 mg dose. Scripts pending your signature. Thanks Meghan Pichardo RN Yes. Does he recall what dose he was taking? Pt calls stating he was on Wellbutrin for 3 years and stopped it about a year ago. Pt states it really helped with his depression and he'd like to go back on it. Pt asking if you are willing to prescribe this for him? Please advise Meghan Pichardo RN documented in this encounter [facility] 04-14-2022 Miscellaneous Notes Jayce stopped inquiring about his most recent letter to be off work for an additional month. He said he dropped the letter of his company but wasn't sure if [employer] received a copy. He said [employer] is the company that sends him his disability checks. I called Nory Mariscal at [employer] ([phone]) and she said she did forward the letter to [employer]. She provided this information regarding [employer]. I gave Jayce a copy of the numbers as well. Fariba Mosley LPN Plan # [id number] documented in this encounter [facility] 04-12-2022 History of Present illness Narrative Images from the original note were not included. PATIENT NAME: Hoang White CLINIC NO.: [id number] ATTENDING PHYSICIAN: Oscar Gonzalez MD DATE OF SERVICE: April 12, 2022 Some of the elements of this note have been copied from my previous progress note dated 03/18/2022. All the information has been reviewed carefully. Dear Dr. Ana Enriquez, here is an update on a follow up visit on male Hoang White at the clinic April 12, 2022 Diagnosis: 1. Upper rectal cancer, MRI staged T4a,N+,M0- Mod Diff Adenocarcinoma ( [facility]) 2. Severe TR ( ECHO 12/2021 at [facility]): - The left ventricle is normal in size. Left ventricular systolic function is normal. EF = 60 5% (2D biplane) Normal left ventricular diastolic function. Normal left atrial size. - Severe right atrial and ventricular dilatation. Right ventricular systolic function is normal including normal RV global strain (-24.0%). - Severe tricuspid regurgitation with hepatic vein systolic reversal. Leaflets thickened without obvious active vegetation. - Diastolic flattening of interventricular septum consistent with RV volume overload. - RVOT AT suggests normal mean PA pressures. 3. Previous h/o IVDA Treatment History: 1. 02/21/2022: Laparoscopic end colostomy 2. Xeloda and XRT 03/10/2022 HPI: Hoang White is a 46 year old year old male here for follow up. Patient has had diarrhea. Eating well, he is still on stool softeners and has not taken any anti-diarrheal. Denies any abdominal pain and also denies any LINDER and or fevers and or chills. PAST MEDICAL HISTORY Diagnosis Date Adenocarcinoma of colon (HCC) Endocarditis 2003 Hypothyroidism Mass of colon [address] Jaquez Social History Tobacco Use Smoking status: Current Every Day Smoker Packs/day: 0.50 Years: 25.00 Pack years: 12.50 Smokeless tobacco: Never Used Vaping Use Vaping Use: Never used Substance Use Topics Alcohol use: Yes Comment: 2 drinks/week; heavy in past Drug use: Not Currently Types: IV Comment: Past drug use of herorin FAMILY HISTORY Problem Relation Age of Onset Breast Cancer Sister Colon Cancer Maternal Grandfather Past medical, social and family history reviewed without any changes. REVIEW OF SYSTEMS GENERAL: No weight loss, malaise or fevers. No night sweats. HEENT: Negative for headaches, No changes in hearing or vision, no nose bleeds or other nasal problems. RESPIRATORY: Negative for cough, wheezing and shortness of breath CARDIOVASCULAR: Negative for chest pain, leg swelling and palpitations GI: Negative for abdominal discomfort, blood in stools or black stools and change in bowel habits : Negative for dysuria, frequency and incontinence MUSCULOSKELETAL: Negative for joint pain or swelling, back pain, and muscle pain. SKIN: Negative for lesions, rash, and itching. HEMATOLOGY/LYMPHOLOGY Negative for prolonged bleeding, bruising easily, and swollen nodes. NEURO: Negative for numbness or tingling of hands/feet. No weakness. PHYSICAL EXAMINATION: BP 131/70 Pulse 69 Temp (Src) 97.2 (Temporal) Resp 16 Ht 5' 7.992 (1.73m) Wt 137 lb 9.6 oz (62.4kg) SpO2 97% BMI 20.93 kg/(m^2). Wt 61.3 kg (135 lb 3.2 oz) BMI 20.85 kg/m2 Last 3 Encounter Wt Readings: Date: Wt: 02/04/2022 61.3 kg (135 lb 3.2 oz) 01/18/2022 62.1 kg (137 lb) 12/29/2021 62.3 kg (137 lb 6.4 oz) General appearance:ECOG PERFORMANCE STATUS: 0- Fully active, able to carry on all pre-disease performance w/o restriction. Patient in NAD. Skin: Skin color, texture, turgor normal. No rashes or lesions. Eyes: Anicteric sclera. Pupils are equally round and reactive to light. Extraocular movements are intact. Lymph Nodes: No cervical, supraclavicular, axillary or inguinal adenopathy. Oropharynx: Lips, mucosa, and tongue normal. Back: No pain to percussion. Negative SLR test Lungs clear to auscultation, No wheezing or rhonchi Heart: RRR without murmur, gallop, or rubs. Abdomen soft, non-tender. No masses, organomegaly Extremities: No deformities. No edema Neuro: Gait and speech normal. Reflexes normal and symmetric. Muscular strength intact. Sensation grossly intact. Rectal: Deferred : Deferred LABS: Glucose (mg/dL) Date Value 04/01/2022 123 Potassium (mmol/L) Date Value 04/01/2022 4.4 Sodium (mmol/L) Date Value 04/01/2022 135 Chloride (mmol/L) Date Value 04/01/2022 100 CO2 (mmol/L) Date Value 04/01/2022 29 Creatinine (mg/dL) Date Value 04/01/2022 0.81 BUN (mg/dL) Date Value 04/01/2022 10 Anion Gap (mmol/L) Date Value 04/01/2022 6 Calcium, Total (mg/dL) Date Value 04/01/2022 10.0 Protein, Total (g/dL) Date Value 04/01/2022 7.8 Albumin (g/dL) Date Value 04/01/2022 4.6 Bilirubin, Total (mg/dL) Date Value 04/01/2022 0.4 Alkaline Phosphatase (U/L) Date Value 04/01/2022 95 AST (U/L) Date Value 04/01/2022 28 ALT (U/L) Date Value 04/01/2022 29 WBC Date Value Ref Range Status 04/12/2022 6.84 3.70 - 11.00 k/uL Final RBC Date Value Ref Range Status 04/12/2022 4.86 4.20 - 6.00 m/uL Final Hemoglobin Date Value Ref Range Status 04/12/2022 15.2 13.0 - 17.0 g/dL Final Hematocrit Date Value Ref Range Status 04/12/2022 44.6 39.0 - 51.0 % Final MCV Date Value Ref Range Status 04/12/2022 91.8 80.0 - 100.0 fL Final MCH Date Value Ref Range Status 04/12/2022 31.3 26.0 - 34.0 pg Final MCHC Date Value Ref Range Status 04/12/2022 34.1 30.5 - 36.0 g/dL Final RDW-CV Date Value Ref Range Status 04/12/2022 14.8 11.5 - 15.0 % Final Platelet Count Date Value Ref Range Status 04/12/2022 255 150 - 400 k/uL Final MPV Date Value Ref Range Status 04/12/2022 9.1 9.0 - 12.7 fL Final Abs Neut Date Value Ref Range Status 04/12/2022 4.85 1.45 - 7.50 k/uL Final Lymph% Date Value Ref Range Status 04/12/2022 7.9 % Final Abs Lymph Date Value Ref Range Status 04/12/2022 0.54 (L) 1.00 - 4.00 k/uL Final Cotton% Date Value Ref Range Status 04/12/2022 6.3 % Final Abs Cotton Date Value Ref Range Status 04/12/2022 0.43 <0.87 k/uL Final Eosin% Date Value Ref Range Status 04/12/2022 13.6 % Final Abs Eosin Date Value Ref Range Status 04/12/2022 0.93 (H) <0.46 k/uL Final Baso% Date Value Ref Range Status 04/12/2022 0.9 % Final Abs Baso Date Value Ref Range Status 04/12/2022 0.06 <0.11 k/uL Final PATH: Colonoscopy 12/2021: Imaging: CT of the Chest and Abdomen and Pelvis 12/2021: 1. Numerous bilateral 5 mm or less pulmonary nodules are identified. Correlation with follow-up summations is recommended to assess for stability. 2. Borderline prominent right hilar and subcarinal lymph nodes. These can also be further assessed on follow-up studies. 1. Improved appearance to wall thickening involving the sigmoid colon. 2. No CT evidence for metastatic disease to the abdomen or pelvis. MRI Rectum 01/2022: 6.8 cm upper rectal mass with invasion into the right lateral peritoneal reflection. Multiple suspicious appearing superior rectal lymph nodes. Stage: T4a N+ MRF: Not applicable Sphincter involvement: No. Suspicious extra mesorectal lymph nodes: No. EMVI: Yes. Assessment and Plan: Hoang White is a 46 year old year old male here for follow up. 1. Upper Rectal Cancer, MRI with T4a,N+ upper rectal disease. Post diverting colostomy and will plan on ISAÍAS and neoadjuvant capecitabine and XRT started 03/10/2022. This is the last week of radiation and due to diarrhea, stop the Xeloda and complete radiation. Discusses the rational for ISAÍAS again and need for reassessment with MRU after completion of chemo and radiation as well. 2. Pulm Nodules-- Follow up CT- Last CT 12/2021 3. TR- Follows cardiology and need surgical revision after CRC has syeda addressed 4. Diarrhea- Stop stool softeners and start imodium MRI in 5 weeks and exam at that time and discuss proceeding with CAPOX. Thank you for the kind referral. If there are any questions and or concerns please do not hesitate to contact me at [phone]. Oscar Gonzalez MD Hematology/Medical Oncology [facility] spent a total of 25 minutes on the date of the service which included preparing to see the patient, [id number] patient care, completing clinical documentation, obtaining and/or reviewing separately obtained history, performing a medically appropriate examination, counseling and educating the patient/family/caregiver, ordering medications, tests, or procedures and communicating with other HCPs (not separately reported). Medical Decision Making: Medical Decision Making Level: 1 - N/A CC: Ana Enriquez MD documented in this encounter [facility] 04-06-2022 History of Present illness Narrative Radiation Oncology - On Treatment Review (OTR) Note PATIENT NAME: Hoang White PATIENT DIAGNOSIS: Mr. White is a 46-year-old gentleman recently diagnosed with stage IIIC, [id number] adenocarcinoma of the rectum status post colonoscopy and biopsy on 12/24/2021. Staging work-up with MRI of the rectum from 02/03/2022 described a 6.8 cm upper rectal mass with invasion into the right lateral peritoneal reflection multiple suspicious lymph nodes. CT chest abdomen pelvis from 01/13/2022 was negative for definite signs of regional or distant disease. His case was reviewed at the multidisciplinary colorectal tumor board yesterday on 02/10/2022 with recommendation for diverting colostomy prior to total neoadjuvant therapy given his obstructive symptoms. COURSE: pre-operative and concurrent chemotherapy (Xeloda) Current dose: 3600 cGy in 18 fx Planned dose: 5000 cGy in 25 fx SUBJECTIVE: Tolerating XRT well and denies any pelvic discomfort except at the stoma site which is functioning properly without diarrhea or blood. He continues to note some rectal output. Which is nonbloody. He feels his energy is improving and notes fair appetite with stable weight and good hydration. He does note mild nausea controlled with antiemetics. Last 5 Encounter Wt Readings: Date: Wt: 04/06/2022 62.1 kg (137 lb) 04/01/2022 62.1 kg (137 lb) 03/30/2022 62.9 kg (138 lb 9.6 oz) 03/23/2022 62.1 kg (137 lb) 03/18/2022 61.2 kg (135 lb) PHYSICAL EXAM: KPS: 90 General Appearance: Alert and oriented. No acute distress. IMAGING/LAB RESULTS: None TOXICITY ASSESSMENT (CTC v4.0): Fatigue:grade 1 - Fatigue relieved by rest Radiation Dermatitis: grade 0 - No symptoms Diarrhea:grade 0 - No symptoms Proctitis: grade 0 - No symptoms Urinary frequency: grade 0 - No symptoms Dysuria: grade 0 - No symptoms Urinary incontinence: grade 0 (No symptoms) Urinary retention: grade 0 - No symptoms Treatment chart checked: Yes Patient treatment site reviewed and verified:Yes Port films reviewed and current:Yes Medications started: None ASSESSMENT/PLAN: Clinically stable. Toxicity within expected parameters. Continue radiation treatment as planned. Tylor Davalos MD documented in this encounter [facility] 04-01-2022 Nurse Note Patient states that his stoma is irritated, red, looks like the skin is deteriorating, sore and it has been almost a month. He has some concerns regarding this. Bárbara Sexton MA documented in this encounter [facility] 04-01-2022 History of Present illness Narrative Images from the original note were not included. PATIENT NAME: Hoang White CLINIC NO.: [id number] ATTENDING PHYSICIAN: Oscar Gonzalez MD DATE OF SERVICE: April 01 2022 (Elements copied from Dr. Gonzalez's note dated March 18, 2022, have been reviewed and updated where appropriate, and all reflect current assessment and medical decision making during today's encounter, April 01, 2022) CC: Follow up Diagnosis: 1. Upper rectal cancer, MRI staged T4a,N+,M0- Mod Diff Adenocarcinoma ( DIANNE) 2. Severe TR ( ECHO 12/2021 at [facility]): - The left ventricle is normal in size. Left ventricular systolic function is normal. EF = 60 5% (2D biplane) Normal left ventricular diastolic function. Normal left atrial size. - Severe right atrial and ventricular dilatation. Right ventricular systolic function is normal including normal RV global strain (-24.0%). - Severe tricuspid regurgitation with hepatic vein systolic reversal. Leaflets thickened without obvious active vegetation. - Diastolic flattening of interventricular septum consistent with RV volume overload. - RVOT AT suggests normal mean PA pressures. 3. Previous h/o IVDA Treatment History: 1. 02/21/2022: Laparoscopic end colostomy 2. Xeloda and XRT 03/10/2022 HPI: Mr. White remains on xrt with xeloda 1300 mg BID M-. Tolerating it well. His diarrhea is stable. Occasional nausea that is tolerable with antiemetics. No mucositis or HFS. He is having some issues with the skin around his stoma. It was burning and irritated. He has home health coming out on Monday. PAST MEDICAL HISTORY Diagnosis Date Adenocarcinoma of colon (HCC) Endocarditis 2003 Hypothyroidism Mass of colon [address] Jaquez Social History Tobacco Use Smoking status: Current Every Day Smoker Packs/day: 0.50 Years: 25.00 Pack years: 12.50 Smokeless tobacco: Never Used Vaping Use Vaping Use: Never used Substance Use Topics Alcohol use: Yes Comment: 2 drinks/week; heavy in past Drug use: Not Currently Types: IV Comment: Past drug use of herorin FAMILY HISTORY Problem Relation Age of Onset Breast Cancer Sister Colon Cancer Maternal Grandfather Past medical, social and family history reviewed without any changes. REVIEW OF SYSTEMS GENERAL: No weight loss, malaise or fevers. No night sweats. HEENT: Negative for headaches, No changes in hearing or vision, no nose bleeds or other nasal problems. RESPIRATORY: Negative for cough, wheezing and shortness of breath CARDIOVASCULAR: Negative for chest pain, leg swelling and palpitations GI: Negative for abdominal discomfort, blood in stools or black stools +occasional nausea and some diarrhea : Negative for dysuria, frequency and incontinence MUSCULOSKELETAL: Negative for joint pain or swelling, back pain, and muscle pain. SKIN: Negative for lesions, rash, and itching. HEMATOLOGY/LYMPHOLOGY Negative for prolonged bleeding, bruising easily, and swollen nodes. NEURO: Negative for numbness or tingling of hands/feet. No weakness. PHYSICAL EXAMINATION: BP 130/77 Pulse 70 Temp (Src) 97.1 (Temporal) Resp 16 Ht 5' 7.992 (1.73m) Wt 137 lb (62.1kg) SpO2 98% BMI 20.84 kg/(m^2). ECOG PERFORMANCE STATUS: 0- Fully active, able to carry on all pre-disease performance w/o restriction. General: Alert and oriented, no distress, pleasant and cooperative. Heart: Regular, normal S1 and S2, no murmurs, rubs, or gallops Lungs: Clear to auscultation bilaterally Abdomen: Benign, stoma site appears healthy from what is visible Extremities: Feet/ankles without edema, posterior tibial pulses full and symmetrical LABS: Glucose (mg/dL) Date Value 04/01/2022 123 Potassium (mmol/L) Date Value 04/01/2022 4.4 Sodium (mmol/L) Date Value 04/01/2022 135 Chloride (mmol/L) Date Value 04/01/2022 100 CO2 (mmol/L) Date Value 04/01/2022 29 Creatinine (mg/dL) Date Value 04/01/2022 0.81 BUN (mg/dL) Date Value 04/01/2022 10 Anion Gap (mmol/L) Date Value 04/01/2022 6 Calcium, Total (mg/dL) Date Value 04/01/2022 10.0 Protein, Total (g/dL) Date Value 04/01/2022 7.8 Albumin (g/dL) Date Value 04/01/2022 4.6 Bilirubin, Total (mg/dL) Date Value 04/01/2022 0.4 Alkaline Phosphatase (U/L) Date Value 04/01/2022 95 AST (U/L) Date Value 04/01/2022 28 ALT (U/L) Date Value 04/01/2022 29 WBC Date Value Ref Range Status 04/01/2022 5.66 3.70 - 11.00 k/uL Final RBC Date Value Ref Range Status 04/01/2022 4.86 4.20 - 6.00 m/uL Final Hemoglobin Date Value Ref Range Status 04/01/2022 14.7 13.0 - 17.0 g/dL Final Hematocrit Date Value Ref Range Status 04/01/2022 43.8 39.0 - 51.0 % Final MCV Date Value Ref Range Status 04/01/2022 90.1 80.0 - 100.0 fL Final MCH Date Value Ref Range Status 04/01/2022 30.2 26.0 - 34.0 pg Final MCHC Date Value Ref Range Status 04/01/2022 33.6 30.5 - 36.0 g/dL Final RDW-CV Date Value Ref Range Status 04/01/2022 13.5 11.5 - 15.0 % Final Platelet Count Date Value Ref Range Status 04/01/2022 219 150 - 400 k/uL Final MPV Date Value Ref Range Status 04/01/2022 9.0 9.0 - 12.7 fL Final Abs Neut Date Value Ref Range Status 04/01/2022 4.51 1.45 - 7.50 k/uL Final Lymph% Date Value Ref Range Status 04/01/2022 7.8 % Final Abs Lymph Date Value Ref Range Status 04/01/2022 0.44 (L) 1.00 - 4.00 k/uL Final Cotton% Date Value Ref Range Status 04/01/2022 7.2 % Final Abs Cotton Date Value Ref Range Status 04/01/2022 0.41 <0.87 k/uL Final Eosin% Date Value Ref Range Status 04/01/2022 4.6 % Final Abs Eosin Date Value Ref Range Status 04/01/2022 0.26 <0.46 k/uL Final Baso% Date Value Ref Range Status 04/01/2022 0.4 % Final Abs Baso Date Value Ref Range Status 04/01/2022 <0.03 <0.11 k/uL Final PATH: Colonoscopy 12/2021: Imaging: CT of the Chest and Abdomen and Pelvis 12/2021: 1. Numerous bilateral 5 mm or less pulmonary nodules are identified. Correlation with follow-up summations is recommended to assess for stability. 2. Borderline prominent right hilar and subcarinal lymph nodes. These can also be further assessed on follow-up studies. 1. Improved appearance to wall thickening involving the sigmoid colon. 2. No CT evidence for metastatic disease to the abdomen or pelvis. MRI Rectum 01/2022: 6.8 cm upper rectal mass with invasion into the right lateral peritoneal reflection. Multiple suspicious appearing superior rectal lymph nodes. Stage: T4a N+ MRF: Not applicable Sphincter involvement: No. Suspicious extra mesorectal lymph nodes: No. EMVI: Yes. Assessment and Plan: Hoang White is a 46 year old year old male here for follow up. 1. Upper Rectal Cancer, MRI with T4a,N+ upper rectal disease. Post diverting colostomy and will plan on ISAÍAS and neoadjuvant capecitabine and XRT started 03/10/2022. Tolerating treatment well. Continue Xeloda with radiation. Return in 2 weeks for follow up and labs. 2. Pulm Nodules-- Follow up CT- Last CT 12/2021 3. TR- Follows cardiology and need surgical revision after CRC has syeda addressed 4. Follow up with home health/stoma nurse Temi Dean PA-C CC: Ana Enriquez MD documented in this encounter [facility] 03-30-2022 History of Present illness Narrative Radiation Oncology - On Treatment Review (OTR) Note PATIENT NAME: Hoang White PATIENT DIAGNOSIS: Mr. White is a 46-year-old gentleman recently diagnosed with stage IIIC, [id number] adenocarcinoma of the rectum status post colonoscopy and biopsy on 12/24/2021. Staging work-up with MRI of the rectum from 02/03/2022 described a 6.8 cm upper rectal mass with invasion into the right lateral peritoneal reflection multiple suspicious lymph nodes. CT chest abdomen pelvis from 01/13/2022 was negative for definite signs of regional or distant disease. His case was reviewed at the multidisciplinary colorectal tumor board yesterday on 02/10/2022 with recommendation for diverting colostomy prior to total neoadjuvant therapy given his obstructive symptoms. COURSE: pre-operative and concurrent chemotherapy (Xeloda) Current dose: 2800 cGy in 14 fx Planned dose: 5000 cGy in 25 fx SUBJECTIVE: Tolerating therapy well denies any perirectal/anal pain or discomfort and continues to note output per rectum which is not bloody and mucus-like. His ostomy is functioning well and reports no diarrhea or bloody output. He does note mild nausea controlled on antiemetics and endorses improving energy with good appetite and hydration. Last 5 Encounter Wt Readings: Date: Wt: 03/30/2022 62.9 kg (138 lb 9.6 oz) 03/23/2022 62.1 kg (137 lb) 03/18/2022 61.2 kg (135 lb) 03/18/2022 61.2 kg (135 lb) 03/16/2022 59.9 kg (132 lb) PHYSICAL EXAM: KPS: 90 General Appearance: Alert and oriented. No acute distress. IMAGING/LAB RESULTS: None TOXICITY ASSESSMENT (CTC v4.0): Fatigue:grade 1 - Fatigue relieved by rest Radiation Dermatitis: grade 0 - No symptoms Diarrhea:grade 0 - No symptoms Proctitis: grade 0 - No symptoms Urinary frequency: grade 0 - No symptoms Dysuria: grade 0 - No symptoms Urinary incontinence: grade 0 (No symptoms) Urinary retention: grade 0 - No symptoms Treatment chart checked: Yes Patient treatment site reviewed and verified:Yes Port films reviewed and current:Yes Medications started: None ASSESSMENT/PLAN: Clinically stable. Toxicity within expected parameters. Continue radiation treatment as planned. Tylor Davalos MD documented in this encounter [facility] 03-25-2022 Miscellaneous Notes Summary: IRB# [id number] 30 Day Follow Up IRB # [id number] Tight perioperative blood pressure management to reduce serious cardiovascular, renal, and cognitive complications: The GUARDIAN trial PI: Mary Solorio MD, LUCIA, YASMINA. Outcomes Research Department. Anesthesia [place]. [facility]. This is a research study note. Patient assessments recorded here should not guide either clinical care or clinical decision-making. I called the patient today regarding follow-up for the study IRB [id number] Tight Perioperative Blood pressure Management to Reduce Serious Cardiovascular, renal, and Cognitive Complications (GUARDIAN) Trial. I thanked the patient for participating in our research study. The 30-day follow-up questionnaire was completed. I reminded the patient about the 90-day follow-up call. The study period is not yet complete. Rob Arcos MD Anesthesiology [place] Outcomes Research Department Research Fellow [facility] documented in this encounter [facility] 03-23-2022 History of Present illness Narrative Radiation Oncology - On Treatment Review (OTR) Note PATIENT NAME: Hoang White PATIENT DIAGNOSIS: Mr. White is a 46-year-old gentleman recently diagnosed with stage IIIC, [id number] adenocarcinoma of the rectum status post colonoscopy and biopsy on 12/24/2021. Staging work-up with MRI of the rectum from 02/03/2022 described a 6.8 cm upper rectal mass with invasion into the right lateral peritoneal reflection multiple suspicious lymph nodes. CT chest abdomen pelvis from 01/13/2022 was negative for definite signs of regional or distant disease. His case was reviewed at the multidisciplinary colorectal tumor board yesterday on 02/10/2022 with recommendation for diverting colostomy prior to total neoadjuvant therapy given his obstructive symptoms. COURSE: pre-operative and concurrent chemotherapy (Xeloda) Current dose: 2000 cGy in 10 fx Planned dose: 5000 cGy in 25 fx SUBJECTIVE: Tolerating XRT well but is having a tough day today as he has been noting nausea which is managed with antiemetics. He denies any pain or discomfort in the pelvic area and his ostomy is working properly. He does have output per rectum and denies any issues with urination. Endorse stable energy appetite and hydration. PHYSICAL EXAM: KPS: 90 General Appearance: Alert and oriented. No acute distress. IMAGING/LAB RESULTS: None TOXICITY ASSESSMENT (CTC v4.0): Fatigue:grade 1 - Fatigue relieved by rest Radiation Dermatitis: grade 0 - No symptoms Diarrhea:grade 0 - No symptoms Proctitis: grade 0 - No symptoms Urinary frequency: grade 0 - No symptoms Dysuria: grade 0 - No symptoms Urinary incontinence: grade 0 (No symptoms) Urinary retention: grade 0 - No symptoms Treatment chart checked: Yes Patient treatment site reviewed and verified:Yes Port films reviewed and current:Yes Medications started: None ASSESSMENT/PLAN: Clinically stable. Toxicity within expected parameters. Continue radiation treatment as planned. Tylor Davalos MD documented in this encounter [facility] 03-18-2022 Nurse Note Clinical questionnaires incomplete due to Patient declined to complete or answer questions with nurse. Patient in a hurry to get to another appointment. Emily Garcia documented in this encounter [facility] 03-18-2022 Nurse Note What is the reason for your visit today? Post op Who is your referring physician? Self Are you having poor oral intake? NO Have you had unintentional weight loss of 15 lbs/7 Kg in the last 3-6 months? NO Bowels: regular Wound: clean & dry Temperature: No Drains: No documented in this encounter [facility] 03-18-2022 History of Present illness Narrative COLORECTAL SURGERY March 18, 2022 Hoang White 46 year old Chief Complaint: post-op visit History of Present Illness: Hoang White is a 46 year old male with a diagnosis of rectal cancer. Now s/p a Laparoscopic Divided End Loop Sigmoid Colostomy on 02/21/[address] Enriquez. He was previously scheduled for post-op on 03/09. He presents today for a post-op check with his significant other. Overall doing well. Minimal pain, occasional nausea for which he takes zofran. He started his chemotherapy treatments and so far has been tolerating well. He denies difficulty with ostomy pouching and stoma care. His SO has been supportive and helping manage stoma care. No fevers or chills, night sweats. Tolerating a diet. Stoma output varies depending on what he eats. Has has some bloody drainage and mucus discharge, occasional stool per rectum. PAST MEDICAL HISTORY Diagnosis Date Adenocarcinoma of colon (HCC) Endocarditis 2003 Hypothyroidism Mass of colon [address] Jaquez PAST SURGICAL HISTORY Procedure Laterality Date COLONSCOPY SCREENING HIGH RISK 2021 EGD PAST SURGICAL HISTORY OF Right 2012 inguinal PAST SURGICAL HISTORY OF 2019 teeth pullled out Current Outpatient Medications Medication Sig Dispense Refill prochlorperazine (COMPAZINE) 10 mg tablet Take 1 tablet by mouth every 6 hours as needed. 100 tablet 2 ondansetron (ZOFRAN) 8 mg tablet Take 1 tablet by mouth every 8 hours as needed for nausea/vomiting. 90 tablet 2 loratadine (CLARITIN) 10 mg tablet Take 10 mg by mouth once daily. atorvastatin (LIPITOR) 10 mg tablet Take 10 mg by mouth once daily. PROBIOTIC FORMULA, INULIN, 1 billion-250 cell-mg cap Take 1 capsule by mouth once daily. acetaminophen (TYLENOL) 500 mg tablet Take 2 tablets by mouth every 6 hours. enoxaparin (LOVENOX) 40 mg/0.4 mL Inject 0.4 mL subcutaneously q 24 HR for 21 days. 8.4 mL 0 gabapentin (NEURONTIN) 300 mg capsule Take 1 capsule by mouth every 8 hours for 14 days. 42 capsule 0 lactobacillus rhamnosus (CULTURELLE) 10 billion cell capsule Take 1 capsule by mouth once daily. 30 capsule 0 traMADol (ULTRAM) 50 mg tablet Take 1 tablet by mouth every 6 hours as needed. 25 tablet 0 nicotine (NICODERM) 21 mg/24 hr Apply 1 Patch as directed once daily. 30 Patch 0 capecitabine (XELODA) 150 mg tablet Take 2 tablets (300 mg) by mouth twice daily. Take along with 1000 mg for a total dose of 1300 mg PO BID M-F During Radiation only 120 tablet 0 capecitabine (XELODA) 500 mg tablet Take 2 tablets (1,000 mg) by mouth twice daily. Take along with 300 mg for a total dose of 1300 mg PO BID M-F during radiation 120 tablet 0 levothyroxine (SYNTHROID) 125 mcg tablet Take 125 mcg by mouth once daily. Ibuprofen 200 mg cap Take by mouth every 6 hours as needed. Current Facility-Administered Medications Medication Dose Route Frequency Provider Last Rate Last Admin perflutren lipid microspheres 1.3 mL in NaCl (PF) 0.9% 10 mL injection (DEFINITY) INTRAVENOUS DIRECTED PRTravis Gonzalez MD sodium chloride 0.9 % (flush) 10 mL (BD POSIFLUSH) 10 mL INTRAVENOUS DIRECTED PRN Oscar Gonzalez MD ALLERGIES No Known Allergies FAMILY HISTORY Problem Relation Age of Onset Breast Cancer Sister Colon Cancer Maternal Grandfather Social History Tobacco Use Smoking status: Current Every Day Smoker Packs/day: 0.50 Years: 25.00 Pack years: 12.50 Smokeless tobacco: Never Used Vaping Use Vaping Use: Never used Substance Use Topics Alcohol use: Yes Comment: 2 drinks/week; heavy in past Drug use: Not Currently Types: IV Comment: Past drug use of herorin Physical Exam: BP 123/78 Pulse 78 Temp 37.1 C (98.7 F) (Temporal) Ht 172.7 cm (5' 8 ) Wt 61.2 kg (135 lb) SpO2 98% BMI 20.53 kg/m General Appearance: Well appearing, alert, in no acute distress, well-hydrated, well nourished. Abdomen: soft, non-tender, non-distended. Laparoscopic sites healing, glue is gone. Stoma pink and viable, pouch intact, brown stool and flatus. Assessment Assessment and Plan: Hoang White is a 46 year old male s/p a Laparoscopic Divided End Loop Sigmoid Colostomy on 02/21/2022. Doing well post-op. Stoma care is going smoothly, tolerating a diet and chemotherapy has started. We discussed next steps in regards to follow up and eventual surgery in a few months. -doing well post-op, expected recovery course. -tumor board discussion regarding pathology results - Pre-treatment clinical stage of [id number] stage IIIC. He is experiencing obstructive symptoms. Plan for diverting colostomy prior to initiation of ISAÍAS. Definitive surgical resection following completion of ISAÍAS. -continue ISAÍAS and follow up appointments with medical and radiation oncology. -OK to slowly advance diet as tolerated at home. -continue lifting and activity restrictions for 6 weeks post-op. -complete lovenox SQ injections as prescribed. -further follow up with Dr. Enriquez in 3 months, scheduled for the patient today. Medical Decision Making: Data Reviewed: Tests & Documents Reviewed/ordered: Review of prior notes from hospitalization Review of prior operative reports I have independently interpreted: n/a I have discussed Hoang White's treatment plan and/or results with the patient, Dr. Enriquez. Risk of morbidity, mortality and/or complications of treatment plan: low Bouchra Thompson APRN.FILE CONVERSION OPERATOR Colorectal Surgery documented in this encounter [facility] 03-18-2022 Miscellaneous Notes Addended by: OSCAR GONZALEZ on: 03/18/2022 01:48 PM Modules accepted: Orders documented in this encounter [facility] 03-18-2022 History of Present illness Narrative Images from the original note were not included. PATIENT NAME: Hoang White [facility] NO.: [id number] ATTENDING PHYSICIAN: Oscar Gonzalez MD DATE OF SERVICE: March 18, 2022 Some of the elements of this note have been copied from my previous progress note dated 03/01/2022. All the information has been reviewed carefully. Dear Dr. Ana Enriquez, here is an update on a follow up visit on male Hoang White at the clinic March 18, 2022 Diagnosis: 1. Upper rectal cancer, MRI staged T4a,N+,M0- Mod Diff Adenocarcinoma ( DIANNE) 2. Severe TR ( ECHO 12/2021 at [facility]): - The left ventricle is normal in size. Left ventricular systolic function is normal. EF = 60 5% (2D biplane) Normal left ventricular diastolic function. Normal left atrial size. - Severe right atrial and ventricular dilatation. Right ventricular systolic function is normal including normal RV global strain (-24.0%). - Severe tricuspid regurgitation with hepatic vein systolic reversal. Leaflets thickened without obvious active vegetation. - Diastolic flattening of interventricular septum consistent with RV volume overload. - RVOT AT suggests normal mean PA pressures. 3. Previous h/o IVDA Treatment History: 1. 02/21/2022: Laparoscopic end colostomy 2. Xeloda and XRT 03/10/2022 HPI: Hoang White is a 46 year old year old male here for follow up. Occasional nausea and occasional diarrhea, Otherwise no other complaints. Denies any rashes. Asked about medical Marijuana as well PAST MEDICAL HISTORY Diagnosis Date Adenocarcinoma of colon (HCC) Endocarditis 2003 Hypothyroidism Mass of colon [address] Jaquez Social History Tobacco Use Smoking status: Current Every Day Smoker Packs/day: 0.50 Years: 25.00 Pack years: 12.50 Smokeless tobacco: Never Used Vaping Use Vaping Use: Never used Substance Use Topics Alcohol use: Yes Comment: 2 drinks/week; heavy in past Drug use: Not Currently Types: IV Comment: Past drug use of herorin FAMILY HISTORY Problem Relation Age of Onset Breast Cancer Sister Colon Cancer Maternal Grandfather Past medical, social and family history reviewed without any changes. REVIEW OF SYSTEMS GENERAL: No weight loss, malaise or fevers. No night sweats. HEENT: Negative for headaches, No changes in hearing or vision, no nose bleeds or other nasal problems. RESPIRATORY: Negative for cough, wheezing and shortness of breath CARDIOVASCULAR: Negative for chest pain, leg swelling and palpitations GI: Negative for abdominal discomfort, blood in stools or black stools and change in bowel habits : Negative for dysuria, frequency and incontinence MUSCULOSKELETAL: Negative for joint pain or swelling, back pain, and muscle pain. SKIN: Negative for lesions, rash, and itching. HEMATOLOGY/LYMPHOLOGY Negative for prolonged bleeding, bruising easily, and swollen nodes. NEURO: Negative for numbness or tingling of hands/feet. No weakness. PHYSICAL EXAMINATION: BP 147/80 Pulse 80 Temp (Src) 97.6 (Temporal) Resp 16 Ht 5' 7.992 (1.73m) Wt 135 lb (61.2kg) SpO2 99% BMI 20.53 kg/(m^2). Wt 61.3 kg (135 lb 3.2 oz) BMI 20.85 kg/m2 Last 3 Encounter Wt Readings: Date: Wt: 02/04/2022 61.3 kg (135 lb 3.2 oz) 01/18/2022 62.1 kg (137 lb) 12/29/2021 62.3 kg (137 lb 6.4 oz) General appearance:ECOG PERFORMANCE STATUS: 0- Fully active, able to carry on all pre-disease performance w/o restriction. Patient in NAD. Skin: Skin color, texture, turgor normal. No rashes or lesions. Eyes: Anicteric sclera. Pupils are equally round and reactive to light. Extraocular movements are intact. Lymph Nodes: No cervical, supraclavicular, axillary or inguinal adenopathy. Oropharynx: Lips, mucosa, and tongue normal. Back: No pain to percussion. Negative SLR test Lungs clear to auscultation, No wheezing or rhonchi Heart: RRR without murmur, gallop, or rubs. Abdomen soft, non-tender. No masses, organomegaly Extremities: No deformities. No edema Neuro: Gait and speech normal. Reflexes normal and symmetric. Muscular strength intact. Sensation grossly intact. Rectal: Deferred : Deferred LABS: Glucose (mg/dL) Date Value 02/24/2022 82 Potassium (mmol/L) Date Value 02/24/2022 4.1 Sodium (mmol/L) Date Value 02/24/2022 137 Chloride (mmol/L) Date Value 02/24/2022 105 CO2 (mmol/L) Date Value 02/24/2022 21 Creatinine (mg/dL) Date Value 02/24/2022 0.59 BUN (mg/dL) Date Value 02/24/2022 10 Anion Gap (mmol/L) Date Value 02/24/2022 11 Calcium, Total (mg/dL) Date Value 02/24/2022 8.9 Protein, Total (g/dL) Date Value 02/04/2022 7.7 Albumin (g/dL) Date Value 02/04/2022 4.5 Bilirubin, Total (mg/dL) Date Value 02/04/2022 0.5 Alkaline Phosphatase (U/L) Date Value 02/04/2022 126 AST (U/L) Date Value 02/04/2022 18 ALT (U/L) Date Value 02/04/2022 11 WBC Date Value Ref Range Status 02/24/2022 9.74 3.70 - 11.00 k/uL Final RBC Date Value Ref Range Status 02/24/2022 4.19 (L) 4.20 - 6.00 m/uL Final Hemoglobin Date Value Ref Range Status 02/24/2022 12.7 (L) 13.0 - 17.0 g/dL Final Hematocrit Date Value Ref Range Status 02/24/2022 37.6 (L) 39.0 - 51.0 % Final MCV Date Value Ref Range Status 02/24/2022 89.7 80.0 - 100.0 fL Final MCH Date Value Ref Range Status 02/24/2022 30.3 26.0 - 34.0 pg Final MCHC Date Value Ref Range Status 02/24/2022 33.8 30.5 - 36.0 g/dL Final RDW-CV Date Value Ref Range Status 02/24/2022 12.3 11.5 - 15.0 % Final Platelet Count Date Value Ref Range Status 02/24/2022 245 150 - 400 k/uL Final MPV Date Value Ref Range Status 02/24/2022 10.0 9.0 - 12.7 fL Final Abs Neut Date Value Ref Range Status 02/24/2022 7.13 1.45 - 7.50 k/uL Final Lymph% Date Value Ref Range Status 02/24/2022 17.4 % Final Abs Lymph Date Value Ref Range Status 02/24/2022 1.69 1.00 - 4.00 k/uL Final Cotton% Date Value Ref Range Status 02/24/2022 6.9 % Final Abs Cotton Date Value Ref Range Status 02/24/2022 0.67 <0.87 k/uL Final Eosin% Date Value Ref Range Status 02/24/2022 1.7 % Final Abs Eosin Date Value Ref Range Status 02/24/2022 0.17 <0.46 k/uL Final Baso% Date Value Ref Range Status 02/24/2022 0.4 % Final Abs Baso Date Value Ref Range Status 02/24/2022 0.04 <0.11 k/uL Final PATH: Colonoscopy 12/2021: Imaging: CT of the Chest and Abdomen and Pelvis 12/2021: 1. Numerous bilateral 5 mm or less pulmonary nodules are identified. Correlation with follow-up summations is recommended to assess for stability. 2. Borderline prominent right hilar and subcarinal lymph nodes. These can also be further assessed on follow-up studies. 1. Improved appearance to wall thickening involving the sigmoid colon. 2. No CT evidence for metastatic disease to the abdomen or pelvis. MRI Rectum 01/2022: 6.8 cm upper rectal mass with invasion into the right lateral peritoneal reflection. Multiple suspicious appearing superior rectal lymph nodes. Stage: T4a N+ MRF: Not applicable Sphincter involvement: No. Suspicious extra mesorectal lymph nodes: No. EMVI: Yes. Assessment and Plan: Hoang White is a 46 year old year old male here for follow up. 1. Upper Rectal Cancer, MRI with T4a,N+ upper rectal disease. Post diverting colostomy and will plan on ISAÍAS and neoadjuvant capecitabine and XRT started 03/10/2022. Continue current therapy 2. Pulm Nodules-- Follow up CT- Last CT 12/2021 3. TR- Follows cardiology and need surgical revision after CRC has syeda addressed See back in 2 weeks Thank you for the kind referral. If there are any questions and or concerns please do not hesitate to contact me at [phone]. Oscar Gonzalez MD Hematology/Medical Oncology [facility] spent a total of 25 minutes on the date of the service which included preparing to see the patient, [id number] patient care, completing clinical documentation, obtaining and/or reviewing separately obtained history, performing a medically appropriate examination, counseling and educating the patient/family/caregiver, ordering medications, tests, or procedures and communicating with other HCPs (not separately reported). Medical Decision Making: Medical Decision Making Level: 1 - N/A CC: Ana Enriquez MD documented in this encounter [facility] 03-16-2022 History of Present illness Narrative Radiation Oncology - On Treatment Review (OTR) Note PATIENT NAME: Hoang White PATIENT DIAGNOSIS: Mr. White is a 46-year-old gentleman recently diagnosed with stage IIIC, [id number] adenocarcinoma of the rectum status post colonoscopy and biopsy on 12/24/2021. Staging work-up with MRI of the rectum from 02/03/2022 described a 6.8 cm upper rectal mass with invasion into the right lateral peritoneal reflection multiple suspicious lymph nodes. CT chest abdomen pelvis from 01/13/2022 was negative for definite signs of regional or distant disease. His case was reviewed at the multidisciplinary colorectal tumor board yesterday on 02/10/2022 with recommendation for diverting colostomy prior to total neoadjuvant therapy given his obstructive symptoms. COURSE: pre-operative and concurrent chemotherapy (Xeloda) Current dose: 1000 cGy in 5 fx Planned dose: 5000 cGy in 25 fx SUBJECTIVE: Tolerating first week of XRT well and denies any pelvic pain/discomfort and notes output per rectum with intermittent blood. He also notes urinary urgency as well as nausea controlled on antiemetics. He feels that his bowel issues are improving and his ostomy continues to work well. He notes improving energy with poor appetite and fair hydration. PHYSICAL EXAM: KPS: 90 General Appearance: Alert and oriented. No acute distress. IMAGING/LAB RESULTS: None TOXICITY ASSESSMENT (CTC v4.0): Fatigue:grade 1 - Fatigue relieved by rest Radiation Dermatitis: grade 0 - No symptoms Diarrhea:grade 0 - No symptoms Proctitis: grade 0 - No symptoms Urinary frequency: grade 0 - No symptoms Dysuria: grade 0 - No symptoms Urinary incontinence: grade 0 (No symptoms) Urinary retention: grade 0 - No symptoms Treatment chart checked: Yes Patient treatment site reviewed and verified:Yes Port films reviewed and current:Yes Medications started: None ASSESSMENT/PLAN: Clinically stable. Toxicity within expected parameters. Continue radiation treatment as planned. We reviewed general precautions/instructions during radiation treatment to the pelvis as well as the potential acute toxicities during treatment and their time course. Discussed the importance of a well-balanced diet, hydration, and exercise/activity as tolerated through the course of treatment. Tylor Davalos MD documented in this encounter [facility] 03-15-2022 Miscellaneous Notes [facility] paperwork signed by Dr. Gonzalez and faxed to [phone]. Bárbara Sexton MA documented in this encounter [facility] 03-15-2022 Miscellaneous Notes ORAL ANTI-CANCER AGENTS FOLLOW-UP PHONE CALL/VISIT Patient identified by name and date of . YES Patient is on cycle 1, week 1, day 4 of Capecitabine (Xeloda) for Colon / Rectal Cancer. SYMPTOM ASSESSMENT Headache: No Visual Changes: No Dizziness: No Do you have any periods of confusion? No Mood changes: No Mouth or throat pain: No Appetite: no changes in appetite, appetite fair Taste changes: No Nausea: Yes pt states Monday and Monday were terrible days for him. Pt had terrible nausea and forgot that he had antiemetics to take. 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 This helped and pt felt better on Monday. 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 Vomiting: No Weight gain/loss: Yes pt states he continues to lose weight. Offered vessel scrapper to reach out to him and he declines at this time. Pt states he's aware that he needs to increase his oral intake as well as ensure. Episodes of palpitations/chest discomfort/pressure/pain No Shortness of breath: No Cough: No Diarrhea: yes, pt states at times he has an increase amount of output in his ostomy bag and at times it's normal. Pt does not take imodium in fear of becoming backed up. Constipation: no Bladder/Urinary Changes: None Pain: No=0 (pain 0 on a scale of 0-10). Fever: No Chills: No Pt has been having sweats at night sometimes. Cold sensitivity: No Numbness/weakness: No Edema: No Skin changes: No Itching: No Yellowing of skin or eyes: No Musculoskeletal/joint changes/issues No Bleeding issues: No Activity Level (0-100%): significant decline. Pt states he has energy but as soon as he stands up to go do something he's already exhausted. Do you need to take naps? No Does the patient need interventions or same day appointment:No ADDITIONAL FOLLOW UP: 1. The next outreach call is due on: as needed and was scheduled as needed 2. The following lab tests are due: CBC, CMP 3. Verified patient is aware of next appointment in the cancer center: Yes. 4. Verified patient verbalized how to correctly refill the oral agent prescription. Yes Pt has enough through the end of radiation. Pt fills through [facility] 5. Does the patient have any financial difficulties affording this medication? No 6. Patient verbalizes understanding of when to seek Medical Attention? YES 7. Patient verbalizes understanding of after-hours and weekend phone number? YES Patient verbalized importance of medication compliance in taking the oral agent as prescribed. Patient instructed to call if unable to comply. Mgehan Pichardo RN documented in this encounter [facility] 03-14-2022 Miscellaneous Notes Sure Called patient for a disability update and he stated he would like to go back to work starting April 04. He will continue his 8 hours only ( daily) and would like restrictions for no lifting or bending due to his ostomy. If you feel he is capable of working and feel comfortable letting him work, I will complete his [place] paperwork. He wanted me to check with you first but, he feels like he is able to go back. Ava Lewis documented in this encounter [facility] 03-11-2022 Miscellaneous Notes Returned call. He wanted to know if Dr. Enriquez would write a prescription for suboxone for him. States he was previously on it. Advised him to reach out to the doctor that originally prescribed it. Patient called and left message regarding wanting a prescription renewed return call to [phone] documented in this encounter [facility] 03-01-2022 History of Present illness Narrative ORAL ANTI-CANCER AGENTS EDUCATION patient here today for oral medication education for Capecitabine (Xeloda) for Colon / Rectal Cancer READINESS TO LEARN Cognitive Ability: Alert and oriented Motivation to Learn: Interested Family Support: Unable to assess - Family not present Instruction Provided to: Patient Patient learns best by: Multiple Methods Factors affecting learning: None Physical limitation affecting learning: None RUBIN ASSESSMENT: 1.) Verified that patient knows that the oral agents are for cancer and are taken by mouth. Yes 2.) Medication reconciliation completed during visit. Yes 3.) Patient is able to swallow pills. Yes 4.) Patient is able to read the drug label/information. Yes 5.) Patient is able to open the medication bottles and packages. Yes 6.) Has patient taken other pills for cancer? No 7.) Is patient experiencing any symptoms that would affect their ability to keep down pills, for example nausea or vomiting? No 8.) Verified that patient understands prescription delivery, benefit investigation and refill process. Yes Pt will fill through [facility]. Phone number provided to pt to call and arrange delivery. PATIENT EDUCATION: 1.) Verified that patient attended individualized instruction on chemotherapy taught by a nurse. Yes 2.) Verified that patient received Chemotherapy Safety in the Home handout, [facility] Medication Information handout: Xeloda and Specialty Pharmacy phone numbers: Yes DRUG-SPECIFIC EDUCATION: 1.) Verified that patient knows the drug name. Yes 2.) Verified patient understands the dose and schedule of oral chemo agent:with water and within 30 minutes of a meal. Yes 3.) Verified patient knows what to do if a medication dose is missed. Yes 4.) Verified patient understands where to store the drug. Yes 5.) Verified patient understands potential side effects and how to manage them. Yes Nausea , Vomiting, Constipation, Diarrhea, Fever / Chills / Risk for Neutropenic Fever, Headache, Neutropenia, Thrombocytopenia, Anemia, Fatigue, Abdominal Discomfort, Hand-foot Syndrome, Rash, Peripheral Neuropathy, Myalgia, Arthalgia, Electrolyte Disturbances, Hypersensitivity Reaction, Shortness of Breath and Risk for DVT 6.)Verified that patient understands handling precautions of oral chemo agent. Yes 7.) Verified that patient understands when and whom to call with questions. Yes 8.) Verified that patient understands where and how to return drug. Yes EVALUATE: Patient was able to demonstrate an understanding of all the above education using the teach-back method. Yes Patient instructed to call us with any questions, concerns, and/or unresolved symptoms. Will continue to follow up with patient and provide reinforcement of teaching topics as needed. Total time spent with patient: 20 minutes Total time spent on encounter: 5 minutes Pt verbalized that he will most likely not retain the information discussed at his visit today, but states he will provide the information to his girlfriend and she can review it and ask questions that she has. Meghan Pichardo RN documented in this encounter [facility] 03-01-2022 History of Present illness Narrative Images from the original note were not included. PATIENT NAME: Hoang White CLINIC NO.: [id number] ATTENDING PHYSICIAN: Oscar Gonzalez MD DATE OF SERVICE: March 01, 2022 Some of the elements of this note have been copied from my previous progress note dated 02/04/2022. All the information has been reviewed carefully. Dear Dr. Ana Enriquez, here is an update on a follow up visit on male Hoang White at the clinic March 01, 2022 Diagnosis: 1. Upper rectal cancer, MRI staged T4a,N+,M0- Mod Diff Adenocarcinoma ( [facility]) 2. Severe TR ( ECHO 12/2021 at [facility]): - The left ventricle is normal in size. Left ventricular systolic function is normal. EF = 60 5% (2D biplane) Normal left ventricular diastolic function. Normal left atrial size. - Severe right atrial and ventricular dilatation. Right ventricular systolic function is normal including normal RV global strain (-24.0%). - Severe tricuspid regurgitation with hepatic vein systolic reversal. Leaflets thickened without obvious active vegetation. - Diastolic flattening of interventricular septum consistent with RV volume overload. - RVOT AT suggests normal mean PA pressures. 3. Previous h/o IVDA Treatment History: 1. 02/21/2022: Laparoscopic end colostomy HPI: Hoang White is a 46 year old year old male here for follow up. Doing well and tolerated the surgery well. He is eating well. Denies any pain and or diarrhea. Denies any rashes. Denies any abdominal cramping. PAST MEDICAL HISTORY Diagnosis Date Adenocarcinoma of colon (HCC) Endocarditis 2003 Hypothyroidism Mass of colon [address] Jaquez Social History Tobacco Use Smoking status: Current Every Day Smoker Packs/day: 0.50 Years: 25.00 Pack years: 12.50 Smokeless tobacco: Never Used Vaping Use Vaping Use: Never used Substance Use Topics Alcohol use: Yes Comment: 2 drinks/week; heavy in past Drug use: Not Currently Types: IV Comment: Past drug use of herorin FAMILY HISTORY Problem Relation Age of Onset Breast Cancer Sister Colon Cancer Maternal Grandfather Past medical, social and family history reviewed without any changes. REVIEW OF SYSTEMS GENERAL: No weight loss, malaise or fevers. No night sweats. HEENT: Negative for headaches, No changes in hearing or vision, no nose bleeds or other nasal problems. RESPIRATORY: Negative for cough, wheezing and shortness of breath CARDIOVASCULAR: Negative for chest pain, leg swelling and palpitations GI: Negative for abdominal discomfort, blood in stools or black stools and change in bowel habits : Negative for dysuria, frequency and incontinence MUSCULOSKELETAL: Negative for joint pain or swelling, back pain, and muscle pain. SKIN: Negative for lesions, rash, and itching. HEMATOLOGY/LYMPHOLOGY Negative for prolonged bleeding, bruising easily, and swollen nodes. NEURO: Negative for numbness or tingling of hands/feet. No weakness. PHYSICAL EXAMINATION: BP 135/92 Pulse 78 Temp (Src) 97.5 (Temporal) Resp 16 Ht 5' 7.992 (1.73m) Wt 135 lb 9.6 oz (61.5kg) SpO2 98% BMI 20.62 kg/(m^2). Wt 61.3 kg (135 lb 3.2 oz) BMI 20.85 kg/m2 Last 3 Encounter Wt Readings: Date: Wt: 02/04/2022 61.3 kg (135 lb 3.2 oz) 01/18/2022 62.1 kg (137 lb) 12/29/2021 62.3 kg (137 lb 6.4 oz) General appearance:ECOG PERFORMANCE STATUS: 0- Fully active, able to carry on all pre-disease performance w/o restriction. Patient in NAD. Skin: Skin color, texture, turgor normal. No rashes or lesions. Eyes: Anicteric sclera. Pupils are equally round and reactive to light. Extraocular movements are intact. Lymph Nodes: No cervical, supraclavicular, axillary or inguinal adenopathy. Oropharynx: Lips, mucosa, and tongue normal. Back: No pain to percussion. Negative SLR test Lungs clear to auscultation, No wheezing or rhonchi Heart: RRR without murmur, gallop, or rubs. Abdomen soft, non-tender. No masses, organomegaly Extremities: No deformities. No edema Neuro: Gait and speech normal. Reflexes normal and symmetric. Muscular strength intact. Sensation grossly intact. Rectal: Deferred : Deferred LABS: Glucose (mg/dL) Date Value 02/24/2022 82 Potassium (mmol/L) Date Value 02/24/2022 4.1 Sodium (mmol/L) Date Value 02/24/2022 137 Chloride (mmol/L) Date Value 02/24/2022 105 CO2 (mmol/L) Date Value 02/24/2022 21 Creatinine (mg/dL) Date Value 02/24/2022 0.59 BUN (mg/dL) Date Value 02/24/2022 10 Anion Gap (mmol/L) Date Value 02/24/2022 11 Calcium, Total (mg/dL) Date Value 02/24/2022 8.9 Protein, Total (g/dL) Date Value 02/04/2022 7.7 Albumin (g/dL) Date Value 02/04/2022 4.5 Bilirubin, Total (mg/dL) Date Value 02/04/2022 0.5 Alkaline Phosphatase (U/L) Date Value 02/04/2022 126 AST (U/L) Date Value 02/04/2022 18 ALT (U/L) Date Value 02/04/2022 11 WBC Date Value Ref Range Status 02/24/2022 9.74 3.70 - 11.00 k/uL Final RBC Date Value Ref Range Status 02/24/2022 4.19 (L) 4.20 - 6.00 m/uL Final Hemoglobin Date Value Ref Range Status 02/24/2022 12.7 (L) 13.0 - 17.0 g/dL Final Hematocrit Date Value Ref Range Status 02/24/2022 37.6 (L) 39.0 - 51.0 % Final MCV Date Value Ref Range Status 02/24/2022 89.7 80.0 - 100.0 fL Final MCH Date Value Ref Range Status 02/24/2022 30.3 26.0 - 34.0 pg Final MCHC Date Value Ref Range Status 02/24/2022 33.8 30.5 - 36.0 g/dL Final RDW-CV Date Value Ref Range Status 02/24/2022 12.3 11.5 - 15.0 % Final Platelet Count Date Value Ref Range Status 02/24/2022 245 150 - 400 k/uL Final MPV Date Value Ref Range Status 02/24/2022 10.0 9.0 - 12.7 fL Final Abs Neut Date Value Ref Range Status 02/24/2022 7.13 1.45 - 7.50 k/uL Final Lymph% Date Value Ref Range Status 02/24/2022 17.4 % Final Abs Lymph Date Value Ref Range Status 02/24/2022 1.69 1.00 - 4.00 k/uL Final Cotton% Date Value Ref Range Status 02/24/2022 6.9 % Final Abs Cotton Date Value Ref Range Status 02/24/2022 0.67 <0.87 k/uL Final Eosin% Date Value Ref Range Status 02/24/2022 1.7 % Final Abs Eosin Date Value Ref Range Status 02/24/2022 0.17 <0.46 k/uL Final Baso% Date Value Ref Range Status 02/24/2022 0.4 % Final Abs Baso Date Value Ref Range Status 02/24/2022 0.04 <0.11 k/uL Final PATH: Colonoscopy 12/2021: Imaging: CT of the Chest and Abdomen and Pelvis 12/2021: 1. Numerous bilateral 5 mm or less pulmonary nodules are identified. Correlation with follow-up summations is recommended to assess for stability. 2. Borderline prominent right hilar and subcarinal lymph nodes. These can also be further assessed on follow-up studies. 1. Improved appearance to wall thickening involving the sigmoid colon. 2. No CT evidence for metastatic disease to the abdomen or pelvis. MRI Rectum 01/2022: 6.8 cm upper rectal mass with invasion into the right lateral peritoneal reflection. Multiple suspicious appearing superior rectal lymph nodes. Stage: T4a N+ MRF: Not applicable Sphincter involvement: No. Suspicious extra mesorectal lymph nodes: No. EMVI: Yes. Assessment and Plan: Hoang White is a 46 year old year old male here for follow up. 1. Upper Rectal Cancer, MRI with T4a,N+ upper rectal disease. Post diverting colostomy and will plan on ISAÍAS and neoadjuvant capecitabine and XRT to start 02/08/2022. Discussed capecitabine and side effects. Chemo teach today 2. Pulm Nodules-- Follow up CT- Last CT 12/2021 3. TR- Follows cardiology and need surgical revision after CRC has syeda addressed Thank you for the kind referral. If there are any questions and or concerns please do not hesitate to contact me at [phone]. Oscar Gonzalez MD Hematology/Medical Oncology [facility] I spent a total of 25 minutes on the date of the service which included preparing to see the patient, [id number] patient care, completing clinical documentation, obtaining and/or reviewing separately obtained history, performing a medically appropriate examination, counseling and educating the patient/family/caregiver, ordering medications, tests, or procedures and communicating with other HCPs (not separately reported). Medical Decision Making: Medical Decision Making Level: 1 - N/A CC: Ana Enriquez MD documented in this encounter [facility] 02-28-2022 History of Present illness Narrative HOANG WHITE [id number] 02/28/2022 [facility] [facility] SIMULATION NOTE DATE OF SIMULATION: 02/28/2022 THERAPIST: Rosina Dimas MACHINE: Siemens AisleBuyer mCT DIAGNOSIS: Malignant neoplasm of [id number] AREA: RECTUM CONTRAST: IV 100cc omni via the LT AC Oral 25cc omni Consent in Epic: Yes PATIENT POSITION: Supine. FIXATION DEVICE: In order to achieve accurate and reproducible treatments, the patient is immobilized with head on two pillows, knee sponge, custom vac bag, hands holding ring A time-out was conducted and recorded by the therapist. CT scan was completed for target localization and planning. Field arrangement will be determined after plan has been completed. The patient is scheduled for a verification simulation on the treatment machine to ensure proper set-up and field arrangement is correct prior to the first treatment of primary and boost martinez if applicable. Patient education will be completed per nursing. Electronically Signed Tylor Davalos M.D. / CDT :49 AM documented in this encounter [facility] 02-28-2022 History of Present illness Narrative HOANG WHITE [id number] 02/28/2022 [facility] Department of Radiation Oncology Treatment Planning Note For reasons stated in the consult note, Hoang White is a candidate for radiation therapy. Based on review and interpretation of the relevant diagnostic studies together with the exam findings, Hoang White was simulated on 02/28/2022 at which time the target volume and/or requisite martinez were delineated, as indicated in the simulation note, to be treated according to the prescription. The treatment target and organs at risk were contoured on the simulation scan using the fused PET /. Special consideration to these and other structures was given in light of the potential for increased toxicities of combined chemoradiation. After reviewing multiple treatment plans with dosimetry, the best plan was approved to deliver the prescribed course of radiation to the target area using inverse planning to allow for the best isodose distribution, treating to the 97.2% isodose line with 10MV and 2 martinez. Custom MLC asym jaws for IMRT were the treatment devices used to shape/modify the beams. Limiting dose to normal tissue was confirmed upon review of the calculated dose volume histogram. IMRT planning was used because it best met the dose/volume constraints for the organs at risk for this patient, better than what could be achieved using conventional or 3D planning. The specific dose requirements for the PTV, organs at risk and dose-volume histograms are contained in this treatment plan and/or elsewhere in the medical record. A completed summary of this plan dated 03/09/22 incorporated herein by reference includes dose, beam arrangements, energy, blocking, isodose distribution, and/or ports and DVH. Electronically Signed Tylor Davalos M.D. :26 PM documented in this encounter [facility] 02-24-2022 Miscellaneous Notes Patient Is scheduled 03/01 for appointment with isaac and chemo ed Hi, can you please let me know where or when you would like patient thank you! Carlos is not here on Mondays please advise. Please schedule pt to see Dr Gonzalez on 02/28 as well as chemo ed that day. Please coordinate with Dr Davalos's appointment. Thanks Meghan Pichardo RN He is having bypass surgery and the pna is for Xeloda and radiation and if he can see me 02/28 and also teach that day. RX has been sent to the pharmacy as well. Pt is scheduled for SIM with Dr Davalos on 02/28. Pt does not have follow up scheduled with you. When would you like to see pt? Do you have a treatment plan in mind? Thanks Meghan Pichardo RN documented in this encounter [facility] 02-22-2022 Miscellaneous Notes OK It doesn't allow me to sign documented in this encounter [facility] 02-18-2022 Miscellaneous Notes Ambulatory Pharmacy Prior Authorization Note Provider Intervention Required?: No- Pharmacy completed on your behalf. Drug: Capecitabine Cover My Meds Rubin: [id number] Determination: Approved Prior Authorization/Case #: [id number] Prior Authorization Expiration: 02/18/2023 Time to PA Submission in CMM: 15 min Time to PA Determination in CMM: Same day Additional Information: 500mg *MUST be filled @ [facility]. For questions relating to this submission, please contact [facility] at [phone] documented in this encounter [facility] 02-16-2022 History and physical note Images from the original note were not included. HISTORY AND PHYSICAL EXAMINATION SERVICE DATE: 02/16/2022 SERVICE TIME: 8:49 AM PRIMARY CARE PHYSICIAN: No primary care provider on file. REASON FOR VISIT: Hoang White is a 46 year old male who is scheduled for left ROBOTIC LAPAROSCOPIC COLECTOMY SIGMOID COLON W/ COLORECTAL ANASTOMOSIS and possible COLOSTOMY DIVERTING at the request of Dr. Ana Enriquez for consultation. My final recommendation will be communicated back to the requesting physician by way of shared medical record or letter. The patient has the following: 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 History of Intravenous Drug Abuse (Hcc) Smoker Rectal Mass Subjective CHIEF COMPLAINT: Colon cancer HPI: Patient is a 46 year old male presenting for pre-anesthesia consultation. Patient has been having alternating diarrhea to constipation for the last year. He has had abdominal pain which is constant and worsening all over his abdomen. He has also noticed BRBPR and melena which depends on the day. Endorses nausea but no emesis. He has lost 40 pounds over the last year unintentionally. Positive family history of colon cancer in maternal grandfather. He had colonoscopy, egd and MRI which noted colon cancer. Plans for surgical resection and chemo/RT. Recommended for the above surgery. PAST MEDICAL HISTORY Diagnosis Date Adenocarcinoma of colon (HCC) Endocarditis 2003 Hypothyroidism Mass of colon [address] Jaquez PAST SURGICAL HISTORY Procedure Laterality Date COLONSCOPY SCREENING HIGH RISK 2021 EGD PAST SURGICAL HISTORY OF Right 2012 inguinal PAST SURGICAL HISTORY OF 2019 teeth pullled out FAMILY HISTORY Problem Relation Age of Onset Breast Cancer Sister Colon Cancer Maternal Grandfather SOCIAL HISTORY: Social History Tobacco Use Smoking status: Current Every Day Smoker Packs/day: 0.50 Years: 25.00 Pack years: 12.50 Smokeless tobacco: Never Used Vaping Use Vaping Use: Never used Substance Use Topics Alcohol use: Yes Comment: 2 drinks/week; heavy in past Drug use: Not Currently Types: IV Comment: Past drug use of herorin MEDICATIONS: Prior to Admission medications as of 02/16/22 0824 Medication Sig Last Dose Taking metroNIDAZOLE (FLAGYL) 500 mg tablet Take 1 tablet by mouth three times daily. Take 1 tablet at 6pm, 7pm, and 11pm, the evening prior to surgery. Taking Yes neomycin 500 mg tablet Take 2 tablets by mouth as directed. Take 2 tablet at 6pm, 7pm, and 11pm the evening prior to surgery. Taking Yes levothyroxine (SYNTHROID) 125 mcg tablet Take 125 mcg by mouth once daily. Taking Yes Ibuprofen 200 mg cap Take by mouth every 6 hours as needed. Taking Yes No medication comments found. CURRENT ALLERGIES: ALLERGIES No Known Allergies COVID VACCINATION STATUS: Not vaccinated REVIEW OF SYSTEMS: PAIN ASSESSMENT: General: Unintentional weight loss lost 40 pounds in the last year Neuro: No history of TIA's, stroke, VP REVENUE CYCLE tumor, impaired sensorium, hemiplegia, paraplegia or quadraplegia. No neurological symptoms or problems. Respiratory: No history of current cough or dyspnea, or pneumonia in the past 6 weeks. No history of respiratory/pulmonary symptoms or problems. 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 Has not taken steroids within the past 30 days. No history of endocrinological symptoms or problems. Hematology: No history of bleeding or clotting disorder. Pt is not taking anti-coagulation or platelet medications. No history of hematological symptoms or problems. Oncology: See HPI Psych: No history of psychiatric symptoms or problems. Musculoskeletal: Negative for joint pain or swelling, back pain or muscle pain. Skin: Negative for lesions, rash and itching. Objective PHYSICAL EXAM: VITALS: BP 130/91 Pulse 80 Temp (Src) 96.7 (Temporal) Resp 18 Ht 5' 8 (1.73m) Wt 129 lb (58.5kg) SpO2 98% BMI 19.62 kg/(m^2). General: Alert and oriented, anxious Skin: Normal color, no rash, no lesions. HEENT: EOM, pupils equal, round and reactive. Cardiovascular: Pulse regular. 3/6 holosystolic low pitched rumbling murmur diffuse Lungs: Normal breath sounds, no wheezes or crackles. Abdomen: Soft, non-tender, no rigidity., Positive bowel sounds Extremities: No deformity, no edema or tenderness, no joint swelling or clubbing. Neurological: Normal cognition and motor skills. Pulses: Carotid and radial pulses normal +2. Pedal pulses normal +2. Diagnostic tests reviewed for today's visit: Lab Value Units Date High Low HB 15.7 g/dL 02/04/2022 17.0 13.0 HCT 46.9 % 02/04/2022 51.0 39.0 WBC 8.19 k/uL 02/04/2022 11.00 3.70 PLT 293 k/uL 02/04/2022 400 150 NA 139 mmol/L 02/04/2022 144 136 K 4.2 mmol/L 02/04/2022 5.1 3.7 GLUC 106 mg/dL 02/04/2022 99 74 BUN 12 mg/dL 02/04/2022 24 9 CREAT 0.77 mg/dL 02/04/2022 1.22 0.73 PTSEC No results within date range. INR No results within date range. APTT No results within date range. ALT 11 U/L 02/04/2022 54 10 AST 18 U/L 02/04/2022 40 14 TBILI 0.5 mg/dL 02/04/2022 1.3 0.2 TSH No results within date range. Lab Value Units Date High Low HCGQT No results within date range. UHCG No results within date range. HCG, BODY* No results within date range. Lab Value Units Date High Low ABORHD No results within date range. ABSCREEN No results within date range. No results found for: HBA1C All in Epic Recent Results (from the past 8760 hour(s)) ECG COMPLETE Collection Time: 01/17/22 1:58 PM Result Value Ventricular Rate 63 Atrial Rate 63 P-R Interval 206 QRS Duration 118 QT Interval 412 QTC Calculation (Bazett) 421 Calculated P [place] 74 Calculated R [place] 121 Calculated T [place] 39 Impression NORMAL SINUS RHYTHM RIGHT AXIS DEVIATION LOW VOLTAGE QRS, CONSIDER PULMONARY DISEASE, PERICARDIAL EFFUSION, OR NORMAL VARIANT NONSPECIFIC INTRAVENTRICULAR CONDUCTION DELAY ABNORMAL ECG Confirmed by NORY HOLLEY MD ([id number]) on 01/20/2022 9:37:50 PM Recent Results (from the past 72301 hour(s)) ECHO Collection Time: 01/17/22 1:15 PM Impression CONCLUSIONS: - Exam indication: Murmur - The left ventricle is normal in size. Left ventricular systolic function is normal. EF = 60 5% (2D biplane) Normal left ventricular diastolic function. Normal left atrial size. - Severe right atrial and ventricular dilatation. Right ventricular systolic function is normal including normal RV global strain (-24.0%). - Severe tricuspid regurgitation with hepatic vein systolic reversal. Leaflets thickened without obvious active vegetation. - Diastolic flattening of interventricular septum consistent with RV volume overload. - RVOT AT suggests normal mean PA pressures. - The patient has not had a prior [facility] echocardiographic exam for comparison. * * * Final * * * Assessment/Plan 1. Pre-op exam 2. Rectal mass Surgery 02/21/22 3. History of endocarditis Due to history of IVDA, medically managed 4. Severe tricuspid regurgitation 5. Abnormality of right ventricle of heart Follows Dr. Marie plans for future heart procedure after colon surgery. Ok to proceed with colorectal surgery from cardiac standpoint. RVSP 32mmHG, right ventricle severely dilated, right atrium severely dilated, 3+- 4+ tricuspid valve regurg. 6. History of intravenous drug abuse (HCC) History of heroin use, last used 6 years ago 7. Smoker 0.5 PPD x 25 years METS: Do yardwork, such as raking leaves, weeding,or pushing a power mower (4.50 METs) Climb a flight of stairs or walk up a hill (5.50 METs) Do heavy work around the house, such as scrubbing floors, lifting or moving heavy furniture (8.00 METs) Patient denies any chest pain or undue shortness of breath with the above physical activity. ASA Class: 3 ANESTHESIA FINDINGS: Intubation History: No history of difficult intubation Significant Anesthesia Considerations: None Airway Exam: General: Normal appearance Mallampati Score is CLASS II ULBT: Class II - Lower incisors can bite the upper lip below the diallo line Neck: Normal appearance and function, Distance from hyoid to mentum during neck extension is at least 3 finger breaths Mouth: Normal tongue size and Mouth opening greater than 2 finger breaths Dentition: Upper denture, missing some lower teeth Airway History: No history of difficult intubation STOP BANG Score: Criteria: Male gender Score = 1 PLAN This patient is optimally prepared for surgery. Patient strongly encouraged to have Type and Screen confirmed today, but patient is adamantly refusing to get done due to history of IV drug abuse and current fear of needles. Per Dr. Marie 01/17/22 CONSULTS: Patient does not require consults for optimization at this time. The Following Tests/Procedures Have Been Initiated: Orders Placed This Encounter Confirm Blood Type Standing Status: Future Standing Expiration Date: 04/18/2022 Order Specific Question: Did Blood Bank direct you to place this order: Answer: No - Presurgical Workflow , EKG not indicated per P[facility] protocol Planned Anesthetic: General Instructions Given to Patient: Instructions located in the after visit summary. Patient given verbal and written preop instructions and voices comprehension and compliance. SIGNATURE: Karime Lim PA-C PATIENT NAME: Hoang White DATE: February 16, 2022 TIME: 8:57 AM documented in this encounter [facility] 02-16-2022 Instructions Karime Lim PA-C - 02/16/2022 8:20 AM EDT PATIENT PREOPERATIVE INSTRUCTIONS Ana Enriquez MD has scheduled you for your procedure at this surgery center: [facility]: [phone] --[id number] [id number]. Please check in on the 1st floor at registration desk 6. Please read below carefully for your personalized instructions. Dietary Restrictions: - No solid food after midnight. - You may have 12 ounces of clear liquids (water, clear juices such as apple juice or gatorade, carbonated beverages, clear tea, black coffee, jello) until 2 hours before scheduled arrival at facility. Medications: Unless instructed differently below, stay on all of your medications until your surgery. Approved medications to take the morning of surgery with a sip of water: levothyroxine If you take any medications for erectile dysfunction-Cialis (Tadalafil), Levitra, Staxyn (Vardenafil) Viagra (Sildenenafil please do not take these for 48 hours before surgery. If you start any new medications after today's visit, please contact the surgeon's office. Blood Thinning Medications: - Stop NSAIDS (Ibuprofen, Advil, Aleve, Motrin, Celebrex, Mobic, etc.) 7 days before surgery, as directed by your surgeon. - Stop Aspirin 7 days before surgery, as directed by your surgeon. - Stop Vitamin E, ALL multi-vitamins, herbals and dietary supplements 7 days before surgery. - You may take Tylenol (Acetaminophen) or any of your pain medications that do not contain aspirin or NSAIDS as needed. Important Reminders: - Candy, mints, and tobacco products are NOT permitted the morning of surgery. - Hearing aids, dentures and glasses may be worn the morning of surgery. - NO jewelry, body piercings, makeup, hairpins or contacts are to be worn the day of surgery. If you develop symptoms such as a fever, cold, or flu, or have other changes to your health within TWO DAYS of scheduled surgery or the morning of surgery, please contact the surgery center above. Personal Belongings: -Please have photo ID and insurance cards. -If you do not have a copy of advance directives on file with us, please bring a copy with you on the day of surgery. - Leave ALL valuables and money at home or with family members. Arrival Time for Surgery: - The Surgery Center or hospital where you are having surgery will call the afternoon before surgery (or Monday for Monday surgery) with a scheduled arrival time. - If you have not heard by 4 pm, please contact the surgery center above. Please be aware that emergency situations arise, which may delay or change your surgical time. If this happens, we will notify you as soon as possible and regret any inconvenience. If you already have an Advance Directive, please fax a copy to [phone] or email to for it to be added to your chart. If you do not have an Advance Directive, you can find the appropriate form and more information at [email or web address]. We recommend that you complete the Advance Directive form found on the website and bring it with you the day of your surgery. It can be witnessed and scanned into your chart that day. Karime Lim PA-C documented in this encounter [facility] 02-11-2022 History of Present illness Narrative Images from the original note were not included. Radiation Oncology - New Patient/Consult Note PATIENT NAME: Hoang White PATIENT Signed: Tylor Davalos MD I spent a total of 60 minutes on the date of the service which included preparing to see the patient, [id number] patient care and counseling and educating the patient/family/caregiver. This document has been created with the use of voice recognition technology. It may contain inaccuracies, misspellings, inaccurate syntax or inappropriate word context that are a result of the inadequacies/shortcomings of said technology/software. documented in this encounter [facility] 02-11-2022 Nurse Note Radiation Therapy - Patient Education Note PATIENT NAME: Hoang White PATIENT February 11, 2022 [facility] FACILITY/LOCATION: [facility] READINESS TO LEARN Cognitive Ability: Alert and oriented Motivation to learn: Interested Family Support: High - Very involved in pt care Instruction provide to: Patient and Spouse Patient learns best by: Multiple Methods Factors effecting learning: Emotional Factors: Frustrated Overwhelmed Physical limitations effecting learning: Pain LEARNING RESPONSE Diagnosis: Pt simulated today for radiation therapy to pelvis. Education Topic/Teaching Points: Radiation therapy, Side effects and OTV: Method of instruction: Written instruction - handouts Verbal instruction Patient /Family response: Patient and family verbalized understanding of radiation treatments, side effects, OTV, and transportation. Follow-up plan: Recommend - Recommend continued instruction and follow up as directed Supplemental material: Informational handouts on Bladder function, Diarrhea, Fatigue, Pelvic handout and patient education binder. Referral (recommendation): None, Pt denied need for social work, van service, and vessel scrapper. Patient has had 30# weight loss over the last 7 months. I offered a nutritional consult and patient declined at this time but states he will think about it. Was approved? No Signed by: Fariba Molsey LPN documented in this encounter [facility] 02-10-2022 Miscellaneous Notes Called Jayce and informed him that our office will reach out and schedule an appointment to see Yolis Aragon NP for stoma education. Discussed his coivd kit and how to swab his nose before his procedure. He has his pre op instructions from clinic and has no questions or concerns at this time. documented in this encounter [facility] 02-07-2022 Miscellaneous Notes Called to update patient that he will be presented at the GI Tumor Board on and we will call after that with a final plan and he expressed understanding documented in this encounter [facility] 02-04-2022 Nurse Note Clinical questionnaires incomplete due to Nurse was Interrupted by provider during rooming process documented in this encounter [facility] 02-04-2022 History of Present illness Narrative Images from the original note were not included. PATIENT NAME: Hoang White CLINIC NO.: [id number] ATTENDING PHYSICIAN: Oscar Gonzalez MD DATE OF SERVICE: February 04, [address] Ana Enriquez, here is an update on a follow up visit on male Hoang White at the clinic 02/04/2022 Diagnosis: 1. Upper rectal cancer, MRI staged T4a,N+,M0- Mod Diff Adenocarcinoma ( [facility]) 2. Severe TR ( ECHO 12/2021 at [facility]): - The left ventricle is normal in size. Left ventricular systolic function is normal. EF = 60 5% (2D biplane) Normal left ventricular diastolic function. Normal left atrial size. - Severe right atrial and ventricular dilatation. Right ventricular systolic function is normal including normal RV global strain (-24.0%). - Severe tricuspid regurgitation with hepatic vein systolic reversal. Leaflets thickened without obvious active vegetation. - Diastolic flattening of interventricular septum consistent with RV volume overload. - RVOT AT suggests normal mean PA pressures. 3. Previous h/o IVDA Treatment History: HPI: Hoang White is a 46 year old year old male here for follow up. Having off and on abdominal discomfort and bowel irregularity. Denies any fevers and or chills. Denies any nausea. Weight stable and appetite also stable. Had rectal MRI yesterday PAST MEDICAL HISTORY Diagnosis Date Adenocarcinoma of colon (HCC) Endocarditis 2003 Hypothyroidism Mass of colon [address] Jaquez Social History Tobacco Use Smoking status: Current Every Day Smoker Smokeless tobacco: Never Used Vaping Use Vaping Use: Never used Substance Use Topics Alcohol use: Yes Comment: 2 drinks/week; heavy in psat Drug use: Not Currently Types: IV FAMILY HISTORY Problem Relation Age of Onset Breast Cancer Sister Past medical, social and family history reviewed without any changes. REVIEW OF SYSTEMS GENERAL: No weight loss, malaise or fevers. No night sweats. HEENT: Negative for headaches, No changes in hearing or vision, no nose bleeds or other nasal problems. RESPIRATORY: Negative for cough, wheezing and shortness of breath CARDIOVASCULAR: Negative for chest pain, leg swelling and palpitations GI: Negative for abdominal discomfort, blood in stools or black stools and change in bowel habits : Negative for dysuria, frequency and incontinence MUSCULOSKELETAL: Negative for joint pain or swelling, back pain, and muscle pain. SKIN: Negative for lesions, rash, and itching. HEMATOLOGY/LYMPHOLOGY Negative for prolonged bleeding, bruising easily, and swollen nodes. NEURO: Negative for numbness or tingling of hands/feet. No weakness. PHYSICAL EXAMINATION: BP 123/75 Pulse 68 Temp (Src) 97 (Temporal) Resp 16 Ht 5' 7.52 (1.72m) Wt 135 lb 3.2 oz (61.3kg) SpO2 99% BMI 20.85 kg/(m^2). Wt 61.3 kg (135 lb 3.2 oz) BMI 20.85 kg/m2 Last 3 Encounter Wt Readings: Date: Wt: 02/04/2022 61.3 kg (135 lb 3.2 oz) 01/18/2022 62.1 kg (137 lb) 12/29/2021 62.3 kg (137 lb 6.4 oz) General appearance:ECOG PERFORMANCE STATUS: 0- Fully active, able to carry on all pre-disease performance w/o restriction. Patient in NAD. Skin: Skin color, texture, turgor normal. No rashes or lesions. Eyes: Anicteric sclera. Pupils are equally round and reactive to light. Extraocular movements are intact. Lymph Nodes: No cervical, supraclavicular, axillary or inguinal adenopathy. Oropharynx: Lips, mucosa, and tongue normal. Back: No pain to percussion. Negative SLR test Lungs clear to auscultation, No wheezing or rhonchi Heart: RRR without murmur, gallop, or rubs. Abdomen soft, non-tender. No masses, organomegaly Extremities: No deformities. No edema Neuro: Gait and speech normal. Reflexes normal and symmetric. Muscular strength intact. Sensation grossly intact. Rectal: Deferred : Deferred LABS: No results found for: GLUC, K, NA, CHLOR, CO2, CREAT, BUN, ANION, CA, TPROT, ALB, TBILI, ALKPHOS, AST, ALT WBC Date Value Ref Range Status 02/04/2022 8.19 3.70 - 11.00 k/uL Final RBC Date Value Ref Range Status 02/04/2022 5.18 4.20 - 6.00 m/uL Final Hemoglobin Date Value Ref Range Status 02/04/2022 15.7 13.0 - 17.0 g/dL Final Hematocrit Date Value Ref Range Status 02/04/2022 46.9 39.0 - 51.0 % Final MCV Date Value Ref Range Status 02/04/2022 90.5 80.0 - 100.0 fL Final MCH Date Value Ref Range Status 02/04/2022 30.3 26.0 - 34.0 pg Final MCHC Date Value Ref Range Status 02/04/2022 33.5 30.5 - 36.0 g/dL Final RDW-CV Date Value Ref Range Status 02/04/2022 12.7 11.5 - 15.0 % Final Platelet Count Date Value Ref Range Status 02/04/2022 293 150 - 400 k/uL Final MPV Date Value Ref Range Status 02/04/2022 9.7 9.0 - 12.7 fL Final Abs Neut Date Value Ref Range Status 02/04/2022 5.28 1.45 - 7.50 k/uL Final Lymph% Date Value Ref Range Status 02/04/2022 23.0 % Final Abs Lymph Date Value Ref Range Status 02/04/2022 1.88 1.00 - 4.00 k/uL Final Cotton% Date Value Ref Range Status 02/04/2022 8.1 % Final Abs Cotton Date Value Ref Range Status 02/04/2022 0.66 <0.87 k/uL Final Eosin% Date Value Ref Range Status 02/04/2022 3.5 % Final Abs Eosin Date Value Ref Range Status 02/04/2022 0.29 <0.46 k/uL Final Baso% Date Value Ref Range Status 02/04/2022 0.7 % Final Abs Baso Date Value Ref Range Status 02/04/2022 0.06 <0.11 k/uL Final PATH: Colonoscopy 12/2021: Imaging: CT of the Chest and Abdomen and Pelvis 12/2021: 1. Numerous bilateral 5 mm or less pulmonary nodules are identified. Correlation with follow-up summations is recommended to assess for stability. 2. Borderline prominent right hilar and subcarinal lymph nodes. These can also be further assessed on follow-up studies. 1. Improved appearance to wall thickening involving the sigmoid colon. 2. No CT evidence for metastatic disease to the abdomen or pelvis. MRI Rectum 01/2022: 6.8 cm upper rectal mass with invasion into the right lateral peritoneal reflection. Multiple suspicious appearing superior rectal lymph nodes. Stage: T4a N+ MRF: Not applicable Sphincter involvement: No. Suspicious extra mesorectal lymph nodes: No. EMVI: Yes. Assessment and Plan: Hoang White is a 46 year old year old male here for follow up. 1. Upper Rectal Cancer, MRI with T4a,N+ upper rectal disease. With the extent of involvement will discuss with the team in regards to Neoadjuvant therapy vs, upfront surgery and adjuvant therapy. 2. Pulm Nodules-- Follow up CT- Last CT 12/2021 3. TR- Follows cardiology and need surgical revision after CRC has syeda addressed Thank you for the kind referral. If there are any questions and or concerns please do not hesitate to contact me at [phone]. Oscar Gonzalez MD Hematology/Medical Oncology [facility] spent a total of 30 minutes on the date of the service which included preparing to see the patient, [id number] patient care, completing clinical documentation, obtaining and/or reviewing separately obtained history, performing a medically appropriate examination, counseling and educating the patient/family/caregiver, ordering medications, tests, or procedures and communicating with other HCPs (not separately reported). Medical Decision Making CC: Ana Enriquez MD documented in this encounter [facility] 02-04-2022 Miscellaneous Notes Paperwork faxed to [employer] @ [phone]. Ava Lewis documented in this encounter [facility] 02-04-2022 Miscellaneous Notes Orders placed for tumor board. documented in this encounter [facility] 02-03-2022 Miscellaneous Notes Radiology Service Progress Note DATE OF SERVICE: February 03, 2022 TIME: 3:13 PM PATIENT IDENTITY VERIFICATION COMPLETED USING TWO (2) STANDARD IDENTIFIERS: Name and Date of confirmed by patient verbally and Name and Date of confirmed by identification band. FALL SCREENING: Has the patient had 2 falls in the last year or 1 fall with injury or currently using an Ambulatory Assistive Device (Walker, Cane, Wheelchair, Crutches, etc.)? No PATIENT GENDER DATA: Male PATIENT RELEVANT IMPLANT DATA REVIEWED: Yes ALLERGIES: Reviewed and unchanged CONTRAST ALLERGY: NO. EXAM: MRI - CONTRAST TYPE: GROUP II PERIPHERAL IV DATA: Ambulatory: A peripheral IV was started in the hand with a Butterfly: 23 gauge. RADIOLOGY DEPARTMENT: MR; Exam(s) Completed: Body: Rectal SIGNATURE: RT Varun(R) PATIENT NAME: Hoang White DATE: February 03, 2022 TIME: 3:13 PM documented in this encounter 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 Niki Peterson MA Short term disability paperwork completed and placed in folder to be signed. 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 Ava Lewis documented in this encounter [facility] 01-18-2022 Miscellaneous Notes Message left for patient to call office for message/instructions from doctor. Gissell Alvarez RN ----- Message from Meghan Pichardo RN sent at 01/18/2022 1:00 PM EDT ----- ----- Message ----- From: Oscar Gonzalez MD Sent: 01/18/2022 11:06 AM EDT To: Meghan Pichardo RN Please let him know that we will follow the the lung nodules. 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 Rectal mass Other symptoms involving digestive system [facility] Rectal cancer (HCC)- Primary Malignant neoplasm of rectum Pre-op exam- Primary Preoperative examination, unspecified Rectal mass Other symptoms involving digestive system Rectal mass Other symptoms involving digestive system [facility] Diagnosis Pre-op exam- Primary Preoperative examination, unspecified Rectal mass Other symptoms involving digestive system History of endocarditis Personal history of other diseases of circulatory system Severe tricuspid regurgitation Diseases of tricuspid valve Abnormality of right ventricle of heart History of intravenous drug abuse (HCC) Smoker Tobacco use disorder Rectal mass Other symptoms involving digestive system [facility] Rectal cancer (HCC)- Primary Malignant neoplasm of rectum [facility] Diagnosis 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 [facility] Diagnosis 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 [facility] Diagnosis 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 [facility] Diagnosis Rectal cancer (HCC)- Primary Malignant neoplasm of rectum Follow-up examination after colorectal surgery Follow-up examination, following other surgery Encounter for ostomy care education Colostomy in place (HCC) Colostomy status [facility] Diagnosis Rectal cancer (HCC)- Primary Malignant neoplasm of rectum [facility] Diagnosis 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 [facility] Diagnosis Rectal cancer (HCC)- Primary Malignant neoplasm of rectum [facility] Diagnosis Rectal cancer (HCC)- Primary Malignant neoplasm of rectum Post-op pain Other acute postoperative pain [facility] Diagnosis Rectal cancer (HCC)- Primary Malignant neoplasm of rectum [facility] Diagnosis 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 Malignant neoplasm of rectum (HCC) Malignant neoplasm of rectum [facility] Diagnosis Malignant neoplasm of rectum (HCC) Malignant neoplasm of rectum [facility] Diagnosis Rectal cancer (HCC)- Primary Malignant neoplasm of rectum [facility] Diagnosis Rectal cancer (HCC)- Primary Malignant neoplasm of rectum Follow-up examination after colorectal surgery Follow-up examination, following other surgery Attention to colostomy (HCC) Attention to colostomy [facility] Diagnosis 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 [facility] Diagnosis Rectal cancer (HCC) Malignant neoplasm of rectum [facility] Diagnosis Rectal cancer (HCC) Malignant neoplasm of rectum [facility] Diagnosis Rectal cancer (HCC)- Primary Malignant neoplasm of rectum [facility] Diagnosis Rectal cancer (HCC)- Primary Malignant neoplasm of rectum [facility] Diagnosis Rectal cancer (HCC)- Primary Malignant neoplasm of rectum Tobacco use disorder [facility] Diagnosis Rectal cancer (HCC)- Primary Malignant neoplasm of rectum Malaise and fatigue Other malaise and fatigue [facility] Diagnosis Rectal cancer (HCC)- Primary Malignant neoplasm of rectum [facility] Diagnosis Rectal cancer (HCC)- Primary Malignant neoplasm of rectum Malaise and fatigue Other malaise and fatigue [facility] Diagnosis Malaise and fatigue Other malaise and fatigue [facility] Diagnosis Malignant neoplasm of rectum (HCC)- Primary Malignant neoplasm of rectum Lung nodules Other nonspecific abnormal finding of lung field [facility] Diagnosis Rectal cancer (HCC)- Primary Malignant neoplasm of rectum Malaise and fatigue Other malaise and fatigue [facility] Diagnosis Lung nodules Other nonspecific abnormal finding of lung field [facility] Diagnosis Rectal cancer (HCC)- Primary Malignant neoplasm of rectum [facility] Diagnosis Encounter for follow-up surveillance of rectal cancer- Primary Unspecified follow-up examination Malignant neoplasm of rectum (HCC) Malignant neoplasm of rectum Rectal cancer (HCC) Malignant neoplasm of rectum [facility] Diagnosis Pre-op evaluation- Primary Preoperative examination, unspecified History of intravenous drug abuse (HCC) Hypothyroidism unspecified Smoker Tobacco use disorder Severe tricuspid regurgitation Diseases of tricuspid valve History of endocarditis Personal history of other diseases of circulatory system Acute deep vein thrombosis (DVT) of proximal vein of lower extremity, unspecified laterality (HCC) Rectal cancer (HCC) Malignant neoplasm of rectum [facility] Diagnosis Malignant neoplasm of rectum (HCC)- Primary Malignant neoplasm of rectum [facility] Diagnosis Acute post-operative pain- Primary High output ileostomy (HCC) Other symptoms involving digestive system [facility] Diagnosis Rectal cancer (HCC)- Primary Malignant neoplasm of rectum Encounter for follow-up surveillance of rectal cancer Unspecified follow-up examination Acute post-operative pain Attention to ileostomy (HCC) Attention to ileostomy Attention to ileostomy (HCC) Attention to ileostomy [facility] Diagnosis Encounter for follow-up surveillance of rectal cancer Unspecified follow-up examination Acute post-operative pain Attention to ileostomy (HCC) Attention to ileostomy [facility] Diagnosis Preop examination- Primary Preoperative examination, unspecified History of endocarditis Personal history of other diseases of circulatory system Severe tricuspid regurgitation Diseases of tricuspid valve Former smoker Personal history of tobacco use, presenting hazards to health History of intravenous drug abuse (HCC) Hypothyroidism unspecified Acute deep vein thrombosis (DVT) of proximal vein of lower extremity, unspecified laterality (HCC) Attention to ileostomy (HCC) Attention to ileostomy [facility] Diagnosis Follow-up examination after colorectal surgery Follow-up examination, following other surgery Rectal cancer (HCC) Malignant neoplasm of rectum documented in this encounter [facility] for referral (narrative)* Outpatient Procedure (Routine) - Authorized Specialty Diagnoses / Procedures Referred By Kavon t Referred To Contact [facility] Diagnoses Follow-up examination after colorectal surgery Rectal cancer (HCC) Procedures SIGMOIDOSCOPY SIGMOIDOSCOPY FLX DX W/COLLJ SPEC BR/[place] [address] [address] [id number] [facility] [address] [place] [address] Referral ID Status Reason Start Date Expiration Date Visits Requested Visits Authorized [id number] Authorized Auto-Generat ed Referral 05/25/2022 05/24/2023 1 1 T [facility] for referral (narrative)* Diagnostic Procedure Only (Routine) - Authorized Specialty Diagnoses / Procedures Referred By Kavon servin Referred To Contact XR IMAGING Diagnoses Encounter for follow-up surveillance of rectal cancer Acute post-operative pain Procedures XR COLON SINGLE CONTRAST RADIOLOGIC EXAM COLON [place] [address] [address] [id number] Xr Imaging Referral ID Status Reason Start Date Expiration Date Visits Requested Visits Authorized [id number] Authorized Auto-Generat ed Referral 01/17/2023 02/16/2024 1 1 T [facility] for referral (narrative)* Diagnostic Procedure Only (Routine) - Closed Specialty Diagnoses / Procedures Referred By Kavon Referred To Contact XR IMAGING Diagnoses Encounter for follow-up surveillance of rectal cancer Acute post-operative pain Procedures XR COLON SINGLE CONTRAST RADIOLOGIC EXAM COLON [place] [address] [address] [phone] Xr Imaging Referral ID Status Reason Start Date Expiration Date V isits Requested Visits Authorized [id number] Closed Auto-Generate d Referral 01/17/2023 02/16/2024 1 1 [facility] for referral (narrative)* Outpatient Procedure (Routine) - Closed Specialty Diagnoses / Procedures Referred By Kavon t Referred To Contact [facility] Diagnoses Follow-up examination after colorectal surgery Rectal cancer (HCC) Procedures SIGMOIDOSCOPY SIGMOIDOSCOPY FLX DX W/COLLJ SPE[place] BR/[place] [address] [place] [address] [facility] [address] [place] [address] Referral ID Status Reason Start Date Expiration Date V isits Requested Visits Authorized [id number] Closed Auto-Generate d Referral 05/25/2022 05/24/2023 1 1 [facility] for visit Narrative* Diagnostic Procedure Only (Routine) - Closed Specialty Diagnoses / Procedures Referred By Kavon t Referred To Contact XR IMAGING Diagnoses Encounter for follow-up surveillance of rectal cancer Acute post-operative pain Procedures XR COLON SINGLE CONTRAST RADIOLOGIC EXAM [place]ON [place] [address] [place] [address] Xr Imaging Referral ID Status Reason Start Date Expiration Date V isits Requested Visits Authorized [id number] Closed Auto-Generate d Referral 01/17/2023 02/16/2024 1 1 [facility] for visit Narrative* Outpatient Procedure (Routine) - Closed Specialty Diagnoses / Procedures Referred By Kavon t Referred To Contact [facility] Diagnoses Follow-up examination after colorectal surgery Rectal cancer (HCC) Procedures SIGMOIDOSCOPY SIGMOIDOSCOPY FLX DX W/COLLJ SPEC BR/[place] [address] [place] [address] [facility] [address] [place] [id number] Referral ID Status Reason Start Date Expiration Date V isits Requested Visits Authorized [id number] Closed Auto-Generate d Referral 05/25/2022 05/24/2023 1 1 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 Advance Directive(s) 02/21/2022 8:46 AM Reason for Referral Specialty Diagnoses / Procedures Referred By Contac t Referred To Contact MR IMAGING Diagnoses Rectal mass Procedures MRI RECTUM WO/W IVCON MRI PELVIS W/O & W/[place] [address] [place] [address] Mr Imaging Referral ID Status Reason Start Date Expiration Date V isits Requested Visits Authorized [id number] Closed Auto-Generate d Referral 01/24/2022 02/22/2022 1 1 Specialty Diagnoses / Procedures Referred By Contac t Referred To Contact MR IMAGING Diagnoses Malignant neoplasm of rectum (HCC) Procedures MRI RECTUM WO/W IVCON MRI PELVIS W/O & W/CONTRAST MATERIAL Oscar Gonzalez MD [address] [place] [address] Mr Imaging Referral ID Status Reason Start Date Expiration Date Visits Requested Visits Authorized [id number] Pending Review Auto-Generat ed Referral 05/17/2022 05/12/2023 1 1 Referral ID Status Reason Start Date Expiration Date V isits Requested Visits Authorized [id number] Closed Auto-Generate d Referral 04/18/2022 05/17/2022 1 1 Specialty Diagnoses / Procedures Referred By Contac t Referred To Contact CT IMAGING Diagnoses Lung nodules Procedures CT CHEST W IVCON DIAGNOSTIC COMPUTED TOMOGRAPHY THORAX W/CONTRAST Temi Dean PA-C [address] [place] [address] Ct Imaging Referral ID Status Reason Start Date Expiration Date Visits Requested Visits Authorized [id number] Pending Review Auto-Generat ed Referral 09/25/2023 1 1 Specialty Diagnoses / Procedures Referred By Contac t Referred To Contact MR IMAGING Diagnoses Malignant neoplasm of rectum (HCC) Procedures MRI RECTUM WO/W IVCON MRI PELVIS W/O & W/CONTRAST MATERIAL Temi Dean PA-C [address] [place] [address] [place] [address] Mr Imaging Referral ID Status Reason Start Date Expiration Date Visits Requested Visits Authorized [id number] Pending Review Auto-Generat ed Referral 09/25/2023 1 1 Referral ID Status Reason Start Date Expiration Date V isits Requested Visits Authorized [id number] Closed Auto-Generate d Referral 08/26/2022 10/01/2022 1 1 Specialty Diagnoses / Procedures Referred By Contac t Referred To Contact CT IMAGING Diagnoses Malignant neoplasm of rectum (HCC) Procedures CT ABD/PEL W IVCON CT ABD & PELVIS W/[place] [address] [facility] [place] [address] Ct Imaging Referral ID Status Reason Start Date Expiration Date Visits Requested Visits Authorized [id number] Authorized Auto-Generat ed Referral 10/04/2022 11/03/2022 1 1 Medications Administered Section Inactive Administered Medications - up to 3 most recent administrations Medication Order MAR Action Action Date Dose Rate Site dexAMETHasone 10 mg/NS 50 mL (PYXIS) 10 mg ivpb (DECADRON) 10 mg, INTRAVENOUS, ONCE, 1 dose, On Mon06/24/22 at 1130, Refrigerate. New Bag/Syringe/Bottle 06/24/2022 11:28 AM EDT 10 mg oxaliplatin 228.8 mg in D5W 585.76 mL (ELOXATIN) 228.8 mg (130 mg/m2 1.76 m2 Treatment Plan BSA from Recorded weight), INTRAVENOUS, Administer over 2 Hours, ONCE, 1 dose, On Mon06/24/22 at 1130, EXP:06/24/22 1700 Room Temp Hazardous Chemotherapy Drug: Use appropriate PPE. Antineoplastic Irritant with Vesicant Potential. Flush line with D5W before and after administration. New Bag/Syringe/Bottle 06/24/2022 11:30 AM EDT 228.8 mg palonosetron 0.25 mg injection (ALOXI) 0.25 mg, INTRAVENOUS, ONCE, 1 dose, On Mon06/24/22 at 1130, Flush IV line with NS prior to and following administration. Given 06/24/2022 11:27 AM EDT 0.25 mg Inactive Administered Medications - up to 3 most recent administrations Medication Order MAR Action Action Date Dose Rate Site cyanocobalamin 1,000 mcg injection 1,000 mcg, INTRAMUSCULAR, ONCE, 1 dose, On Mon07/15/22 at 1130 Given 07/15/2022 12:52 PM EDT 1,000 mcg Deltoid, Left dexAMETHasone 10 mg/NS 50 mL (PYXIS) 10 mg ivpb (DECADRON) 10 mg, INTRAVENOUS, ONCE, 1 dose, On Mon07/15/22 at 1030, Refrigerate. New Bag/Syringe/Ame le 07/15/2022 10:32 AM EDT 10 mg oxaliplatin 228.8 mg in D5W 585.76 mL (ELOXATIN) 228.8 mg (130 mg/m2 1.76 m2 Treatment Plan BSA from Recorded weight), INTRAVENOUS, Administer over 2 Hours, ONCE, 1 dose, On Mon07/15/22 at 1030, Approx Total Volume: mL EXP: 1630 07/16/22 Hazardous Chemotherapy Drug: Use appropriate PPE. Antineoplastic Irritant with Vesicant Potential. Flush line with D5W before and after administration. New Bag/Syringe/Ame cornelio 07/15/2022 10:56 AM EDT 228.8 mg palonosetron 0.25 mg injection (ALOXI) 0.25 mg, INTRAVENOUS, ONCE, 1 dose, On Mon07/15/22 at 1030, Flush IV line with NS prior to and following administration. Given 07/15/2022 10:29 AM EDT 0.25 mg Inactive Administered Medications - up to 3 most recent administrations Medication Order MAR Action Action Date Dose Rate Site cyanocobalamin 1,000 mcg injection 1,000 mcg, INTRAMUSCULAR, ONCE, 1 dose, On Mon08/05/22 at 1300 Given 08/05/2022 1:22 PM EDT 1,000 mcg Deltoid, Right dexAMETHasone 10 mg/NS 50 mL (PYXIS) 10 mg ivpb (DECADRON) 10 mg, INTRAVENOUS, ONCE, 1 dose, On Mon08/05/22 at 1030, Refrigerate. New Bag/Syringe/Ame le 08/05/2022 10:38 AM EDT 10 mg oxaliplatin 228.8 mg in D5W 585.76 mL (ELOXATIN) 228.8 mg (130 mg/m2 1.76 m2 Treatment Plan BSA from Recorded weight), INTRAVENOUS, Administer over 2 Hours, ONCE, 1 dose, On Mon08/05/22 at 1030, Approx Total Volume: EXP: 1630 08/06/22 Hazardous Chemotherapy Drug: Use appropriate PPE. Antineoplastic Irritant with Vesicant Potential. Flush line with D5W before and after administration. New Bag/Syringe/Ame le 08/05/2022 11:09 AM EDT 228.8 mg palonosetron 0.25 mg injection (ALOXI) 0.25 mg, INTRAVENOUS, ONCE, 1 dose, On Mon08/05/22 at 1030, Flush IV line with NS prior to and following administration. Given 08/05/2022 10:35 AM EDT 0.25 mg Inactive Administered Medications - up to 3 most recent administrations Medication Order MAR Action Action Date Dose Rate Site cyanocobalamin 1,000 mcg injection 1,000 mcg, INTRAMUSCULAR, ONCE, 1 dose, On Mon08/26/22 at 1300 Given 08/26/2022 2:38 PM EDT 1,000 mcg Deltoid, Left dexAMETHasone 10 mg/NS 50 mL (PYXIS) 10 mg ivpb (DECADRON) 10 mg, INTRAVENOUS, ONCE, 1 dose, On Mon08/26/22 at 1200, Refrigerate. New Bag/Syringe/Ame le 08/26/2022 12:01 PM EDT 10 mg oxaliplatin 228.8 mg in D5W 585.76 mL (ELOXATIN) 228.8 mg (130 mg/m2 1.76 m2 Treatment Plan BSA from Recorded weight), INTRAVENOUS, Administer over 2 Hours, ONCE, 1 dose, On Mon08/26/22 at 1200, Approx Total Volume: mL EXP: 1900 08/26/22 Hazardous Chemotherapy Drug: Use appropriate PPE. Antineoplastic Irritant with Vesicant Potential. Flush line with D5W before and after administration. New Bag/Syringe/Ame le 08/26/2022 12:26 PM EDT 228.8 mg palonosetron 0.25 mg injection (ALOXI) 0.25 mg, INTRAVENOUS, ONCE, 1 dose, On Mon08/26/22 at 1200, Flush IV line with NS prior to and following administration. Given 08/26/2022 11:58 AM EDT 0.25 mg Additional Source Comments (unrecognized sect ion and content) No Status Records FoundNo Status Records FoundNo Status Records FoundNo Status Records FoundNo Status Records FoundNo Status Records FoundNo Status Records Found INFORMATION SOURCE (unrecogn ized section and content) DATE CREATED AUTHOR 01/17/2022 [facility] DATE CREATED AUTHOR AUTHOR'S ORGANIZ ATION 08/22/2022 [facility] DATE CREATED AUTHOR AUTHOR'S ORGANIZ ATION 10/20/2022 [facility] DATE CREATED AUTHOR AUTHOR'S ORGANIZ ATION 02/03/2023 [facility] DATE CREATED AUTHOR AUTHOR'S ORGANIZ ATION 03/03/2023 [facility] DATE CREATED AUTHOR AUTHOR'S ORGANIZ ATION 06/03/2023 [facility] DATE CREATED AUTHOR AUTHOR'S ORGANIZ ATION 01/23/2024 [facility] EPIC Source Comments (unrecognize d section and content) In the event this informatio n is protected by the Federal Confidentiality of Alcohol and Drug Abuse Patient Records regulations: The Federal rules restrict any use of the information to criminally investigate or prosecute any alcohol or drug abuse patient.[facility] CenterIn the event this information is protected by the Federal Confidentiality of Alcohol and Drug Abuse Patient Records regulations: The Federal rules restrict any use of the information to criminally investigate or prosecute any alcohol or drug abuse patient.[facility] CenterIn the event this information is protected by the Federal Confidentiality of Alcohol and Drug Abuse Patient Records regulations: The Federal rules restrict any use of the information to criminally investigate or prosecute any alcohol or drug abuse patient.[facility] CenterIn the event this information is protected by the Federal Confidentiality of Alcohol and Drug Abuse Patient Records regulations: The Federal rules restrict any use of the information to criminally investigate or prosecute any alcohol or drug abuse patient.[facility] CenterIn the event this information is protected by the Federal Confidentiality of Alcohol and Drug Abuse Patient Records regulations: The Federal rules restrict any use of the information to criminally investigate or prosecute any alcohol or drug abuse patient.[facility] CenterIn the event this information is protected by the Federal Confidentiality of Alcohol and Drug Abuse Patient Records regulations: The Federal rules restrict any use of the information to criminally investigate or prosecute any alcohol or drug abuse patient.[facility] CenterIn the event this information is protected by the Federal Confidentiality of Alcohol and Drug Abuse Patient Records regulations: The Federal rules restrict any use of the information to criminally investigate or prosecute any alcohol or drug abuse patient.[facility] CenterIn the event this information is protected by the Federal Confidentiality of Alcohol and Drug Abuse Patient Records regulations: The Federal rules restrict any use of the information to criminally investigate or prosecute any alcohol or drug abuse patient.[facility] CenterIn the event this information is protected by the Federal Confidentiality of Alcohol and Drug Abuse Patient Records regulations: The Federal rules restrict any use of the information to criminally investigate or prosecute any alcohol or drug abuse patient.[facility] CenterIn the event this information is protected by the Federal Confidentiality of Alcohol and Drug Abuse Patient Records regulations: The Federal rules restrict any use of the information to criminally investigate or prosecute any alcohol or drug abuse patient.[facility] CenterIn the event this information is protected by the Federal Confidentiality of Alcohol and Drug Abuse Patient Records regulations: The Federal rules restrict any use of the information to criminally investigate or prosecute any alcohol or drug abuse patient.[facility] CenterIn the event this information is protected by the Federal Confidentiality of Alcohol and Drug Abuse Patient Records regulations: The Federal rules restrict any use of the information to criminally investigate or prosecute any alcohol or drug abuse patient.[facility] CenterIn the event this information is protected by the Federal Confidentiality of Alcohol and Drug Abuse Patient Records regulations: The Federal rules restrict any use of the information to criminally investigate or prosecute any alcohol or drug abuse patient.[facility] CenterIn the event this information is protected by the Federal Confidentiality of Alcohol and Drug Abuse Patient Records regulations: The Federal rules restrict any use of the information to criminally investigate or prosecute any alcohol or drug abuse patient.[facility] CenterIn the event this information is protected by the Federal Confidentiality of Alcohol and Drug Abuse Patient Records regulations: The Federal rules restrict any use of the information to criminally investigate or prosecute any alcohol or drug abuse patient.[facility] CenterIn the event this information is protected by the Federal Confidentiality of Alcohol and Drug Abuse Patient Records regulations: The Federal rules restrict any use of the information to criminally investigate or prosecute any alcohol or drug abuse patient.[facility] CenterIn the event this information is protected by the Federal Confidentiality of Alcohol and Drug Abuse Patient Records regulations: The Federal rules restrict any use of the information to criminally investigate or prosecute any alcohol or drug abuse patient.[facility] CenterIn the event this information is protected by the Federal Confidentiality of Alcohol and Drug Abuse Patient Records regulations: The Federal rules restrict any use of the information to criminally investigate or prosecute any alcohol or drug abuse patient.[facility] CenterIn the event this information is protected by the Federal Confidentiality of Alcohol and Drug Abuse Patient Records regulations: The Federal rules restrict any use of the information to criminally investigate or prosecute any alcohol or drug abuse patient.[facility] CenterIn the event this information is protected by the Federal Confidentiality of Alcohol and Drug Abuse Patient Records regulations: The Federal rules restrict any use of the information to criminally investigate or prosecute any alcohol or drug abuse patient.[facility] CenterIn the event this information is protected by the Federal Confidentiality of Alcohol and Drug Abuse Patient Records regulations: The Federal rules restrict any use of the information to criminally investigate or prosecute any alcohol or drug abuse patient.[facility] CenterIn the event this information is protected by the Federal Confidentiality of Alcohol and Drug Abuse Patient Records regulations: The Federal rules restrict any use of the information to criminally investigate or prosecute any alcohol or drug abuse patient.[facility] CenterIn the event this information is protected by the Federal Confidentiality of Alcohol and Drug Abuse Patient Records regulations: The Federal rules restrict any use of the information to criminally investigate or prosecute any alcohol or drug abuse patient.[facility] CenterIn the event this information is protected by the Federal Confidentiality of Alcohol and Drug Abuse Patient Records regulations: The Federal rules restrict any use of the information to criminally investigate or prosecute any alcohol or drug abuse patient.[facility] CenterIn the event this information is protected by the Federal Confidentiality of Alcohol and Drug Abuse Patient Records regulations: The Federal rules restrict any use of the information to criminally investigate or prosecute any alcohol or drug abuse patient.[facility] CenterIn the event this information is protected by the Federal Confidentiality of Alcohol and Drug Abuse Patient Records regulations: The Federal rules restrict any use of the information to criminally investigate or prosecute any alcohol or drug abuse patient.[facility] CenterIn the event this information is protected by the Federal Confidentiality of Alcohol and Drug Abuse Patient Records regulations: The Federal rules restrict any use of the information to criminally investigate or prosecute any alcohol or drug abuse patient.[facility] CenterIn the event this information is protected by the Federal Confidentiality of Alcohol and Drug Abuse Patient Records regulations: The Federal rules restrict any use of the information to criminally investigate or prosecute any alcohol or drug abuse patient.[facility] CenterIn the event this information is protected by the Federal Confidentiality of Alcohol and Drug Abuse Patient Records regulations: The Federal rules restrict any use of the information to criminally investigate or prosecute any alcohol or drug abuse patient.[facility] CenterIn the event this information is protected by the Federal Confidentiality of Alcohol and Drug Abuse Patient Records regulations: The Federal rules restrict any use of the information to criminally investigate or prosecute any alcohol or drug abuse patient.[facility] CenterIn the event this information is protected by the Federal Confidentiality of Alcohol and Drug Abuse Patient Records regulations: The Federal rules restrict any use of the information to criminally investigate or prosecute any alcohol or drug abuse patient.[facility] CenterIn the event this information is protected by the Federal Confidentiality of Alcohol and Drug Abuse Patient Records regulations: The Federal rules restrict any use of the information to criminally investigate or prosecute any alcohol or drug abuse patient.[facility] CenterIn the event this information is protected by the Federal Confidentiality of Alcohol and Drug Abuse Patient Records regulations: The Federal rules restrict any use of the information to criminally investigate or prosecute any alcohol or drug abuse patient.[facility] CenterIn the event this information is protected by the Federal Confidentiality of Alcohol and Drug Abuse Patient Records regulations: The Federal rules restrict any use of the information to criminally investigate or prosecute any alcohol or drug abuse patient.[facility] CenterIn the event this information is protected by the Federal Confidentiality of Alcohol and Drug Abuse Patient Records regulations: The Federal rules restrict any use of the information to criminally investigate or prosecute any alcohol or drug abuse patient.[facility] CenterIn the event this information is protected by the Federal Confidentiality of Alcohol and Drug Abuse Patient Records regulations: The Federal rules restrict any use of the information to criminally investigate or prosecute any alcohol or drug abuse patient.[facility] CenterIn the event this information is protected by the Federal Confidentiality of Alcohol and Drug Abuse Patient Records regulations: The Federal rules restrict any use of the information to criminally investigate or prosecute any alcohol or drug abuse patient.[facility] CenterIn the event this information is protected by the Federal Confidentiality of Alcohol and Drug Abuse Patient Records regulations: The Federal rules restrict any use of the information to criminally investigate or prosecute any alcohol or drug abuse patient.[facility] CenterIn the event this information is protected by the Federal Confidentiality of Alcohol and Drug Abuse Patient Records regulations: The Federal rules restrict any use of the information to criminally investigate or prosecute any alcohol or drug abuse patient.[facility] CenterIn the event this information is protected by the Federal Confidentiality of Alcohol and Drug Abuse Patient Records regulations: The Federal rules restrict any use of the information to criminally investigate or prosecute any alcohol or drug abuse patient.[facility] CenterIn the event this information is protected by the Federal Confidentiality of Alcohol and Drug Abuse Patient Records regulations: The Federal rules restrict any use of the information to criminally investigate or prosecute any alcohol or drug abuse patient.[facility] CenterIn the event this information is protected by the Federal Confidentiality of Alcohol and Drug Abuse Patient Records regulations: The Federal rules restrict any use of the information to criminally investigate or prosecute any alcohol or drug abuse patient.[facility] CenterIn the event this information is protected by the Federal Confidentiality of Alcohol and Drug Abuse Patient Records regulations: The Federal rules restrict any use of the information to criminally investigate or prosecute any alcohol or drug abuse patient.[facility] CenterIn the event this information is protected by the Federal Confidentiality of Alcohol and Drug Abuse Patient Records regulations: The Federal rules restrict any use of the information to criminally investigate or prosecute any alcohol or drug abuse patient.[facility] CenterIn the event this information is protected by the Federal Confidentiality of Alcohol and Drug Abuse Patient Records regulations: The Federal rules restrict any use of the information to criminally investigate or prosecute any alcohol or drug abuse patient.[facility] the event this information is protected by the Federal Confidentiality of Alcohol and Drug Abuse Patient Records regulations: The Federal rules restrict any use of the information to criminally investigate or prosecute any alcohol or drug abuse patient.[facility] CenterIn the event this information is protected by the Federal Confidentiality of Alcohol and Drug Abuse Patient Records regulations: The Federal rules restrict any use of the information to criminally investigate or prosecute any alcohol or drug abuse patient.[facility] CenterIn the event this information is protected by the Federal Confidentiality of Alcohol and Drug Abuse Patient Records regulations: The Federal rules restrict any use of the information to criminally investigate or prosecute any alcohol or drug abuse patient.[facility]In the event this information is protected by the Federal Confidentiality of Alcohol and Drug Abuse Patient Records regulations: The Federal rules restrict any use of the information to criminally investigate or prosecute any alcohol or drug abuse patient.[facility] CenterIn the event this information is protected by the Federal Confidentiality of Alcohol and Drug Abuse Patient Records regulations: The Federal rules restrict any use of the information to criminally investigate or prosecute any alcohol or drug abuse patient.[facility] CenterIn the event this information is protected by the Federal Confidentiality of Alcohol and Drug Abuse Patient Records regulations: The Federal rules restrict any use of the information to criminally investigate or prosecute any alcohol or drug abuse patient.[facility] CenterIn the event this information is protected by the Federal Confidentiality of Alcohol and Drug Abuse Patient Records regulations: The Federal rules restrict any use of the information to criminally investigate or prosecute any alcohol or drug abuse patient.[facility] CenterIn the event this information is protected by the Federal Confidentiality of Alcohol and Drug Abuse Patient Records regulations: The Federal rules restrict any use of the information to criminally investigate or prosecute any alcohol or drug abuse patient.[facility] CenterIn the event this information is protected by the Federal Confidentiality of Alcohol and Drug Abuse Patient Records regulations: The Federal rules restrict any use of the information to criminally investigate or prosecute any alcohol or drug abuse patient.[facility] CenterIn the event this information is protected by the Federal Confidentiality of Alcohol and Drug Abuse Patient Records regulations: The Federal rules restrict any use of the information to criminally investigate or prosecute any alcohol or drug abuse patient.[facility] CenterIn the event this information is protected by the Federal Confidentiality of Alcohol and Drug Abuse Patient Records regulations: The Federal rules restrict any use of the information to criminally investigate or prosecute any alcohol or drug abuse patient.[facility] CenterIn the event this information is protected by the Federal Confidentiality of Alcohol and Drug Abuse Patient Records regulations: The Federal rules restrict any use of the information to criminally investigate or prosecute any alcohol or drug abuse patient.[facility] CenterIn the event this information is protected by the Federal Confidentiality of Alcohol and Drug Abuse Patient Records regulations: The Federal rules restrict any use of the information to criminally investigate or prosecute any alcohol or drug abuse patient.[facility] CenterIn the event this information is protected by the Federal Confidentiality of Alcohol and Drug Abuse Patient Records regulations: The Federal rules restrict any use of the information to criminally investigate or prosecute any alcohol or drug abuse patient.[facility] CenterIn the event this information is protected by the Federal Confidentiality of Alcohol and Drug Abuse Patient Records regulations: The Federal rules restrict any use of the information to criminally investigate or prosecute any alcohol or drug abuse patient.[facility] CenterIn the event this information is protected by the Federal Confidentiality of Alcohol and Drug Abuse Patient Records regulations: The Federal rules restrict any use of the information to criminally investigate or prosecute any alcohol or drug abuse patient.[facility] CenterIn the event this information is protected by the Federal Confidentiality of Alcohol and Drug Abuse Patient Records regulations: The Federal rules restrict any use of the information to criminally investigate or prosecute any alcohol or drug abuse patient.[facility] CenterIn the event this information is protected by the Federal Confidentiality of Alcohol and Drug Abuse Patient Records regulations: The Federal rules restrict any use of the information to criminally investigate or prosecute any alcohol or drug abuse patient.[facility] CenterIn the event this information is protected by the Federal Confidentiality of Alcohol and Drug Abuse Patient Records regulations: The Federal rules restrict any use of the information to criminally investigate or prosecute any alcohol or drug abuse patient.[facility] CenterIn the event this information is protected by the Federal Confidentiality of Alcohol and Drug Abuse Patient Records regulations: The Federal rules restrict any use of the information to criminally investigate or prosecute any alcohol or drug abuse patient.[facility] CenterIn the event this information is protected by the Federal Confidentiality of Alcohol and Drug Abuse Patient Records regulations: The Federal rules restrict any use of the information to criminally investigate or prosecute any alcohol or drug abuse patient.[facility] CenterIn the event this information is protected by the Federal Confidentiality of Alcohol and Drug Abuse Patient Records regulations: The Federal rules restrict any use of the information to criminally investigate or prosecute any alcohol or drug abuse patient.[facility] CenterIn the event this information is protected by the Federal Confidentiality of Alcohol and Drug Abuse Patient Records regulations: The Federal rules restrict any use of the information to criminally investigate or prosecute any alcohol or drug abuse patient.[facility] CenterIn the event this information is protected by the Federal Confidentiality of Alcohol and Drug Abuse Patient Records regulations: The Federal rules restrict any use of the information to criminally investigate or prosecute any alcohol or drug abuse patient.[facility] CenterIn the event this information is protected by the Federal Confidentiality of Alcohol and Drug Abuse Patient Records regulations: The Federal rules restrict any use of the information to criminally investigate or prosecute any alcohol or drug abuse patient.[facility] CenterIn the event this information is protected by the Federal Confidentiality of Alcohol and Drug Abuse Patient Records regulations: The Federal rules restrict any use of the information to criminally investigate or prosecute any alcohol or drug abuse patient.[facility] CenterIn the event this information is protected by the Federal Confidentiality of Alcohol and Drug Abuse Patient Records regulations: The Federal rules restrict any use of the information to criminally investigate or prosecute any alcohol or drug abuse patient.[facility] CenterIn the event this information is protected by the Federal Confidentiality of Alcohol and Drug Abuse Patient Records regulations: The Federal rules restrict any use of the information to criminally investigate or prosecute any alcohol or drug abuse patient.[facility], Cancer CenterIn the event this information is protected by the Federal Confidentiality of Alcohol and Drug Abuse Patient Records regulations: The Federal rules restrict any use of the information to criminally investigate or prosecute any alcohol or drug abuse patient.[facility] CenterIn the event this information is protected by the Federal Confidentiality of Alcohol and Drug Abuse Patient Records regulations: The Federal rules restrict any use of the information to criminally investigate or prosecute any alcohol or drug abuse patient.[facility] CenterIn the event this information is protected by the Federal Confidentiality of Alcohol and Drug Abuse Patient Records regulations: The Federal rules restrict any use of the information to criminally investigate or prosecute any alcohol or drug abuse patient.[facility] CenterIn the event this information is protected by the Federal Confidentiality of Alcohol and Drug Abuse Patient Records regulations: The Federal rules restrict any use of the information to criminally investigate or prosecute any alcohol or drug abuse patient.[facility] CenterIn the event this information is protected by the Federal Confidentiality of Alcohol and Drug Abuse Patient Records regulations: The Federal rules restrict any use of the information to criminally investigate or prosecute any alcohol or drug abuse patient.[facility] CenterIn the event this information is protected by the Federal Confidentiality of Alcohol and Drug Abuse Patient Records regulations: The Federal rules restrict any use of the information to criminally investigate or prosecute any alcohol or drug abuse patient.[facility] CenterIn the event this information is protected by the Federal Confidentiality of Alcohol and Drug Abuse Patient Records regulations: The Federal rules restrict any use of the information to criminally investigate or prosecute any alcohol or drug abuse patient.[facility] CenterIn the event this information is protected by the Federal Confidentiality of Alcohol and Drug Abuse Patient Records regulations: The Federal rules restrict any use of the information to criminally investigate or prosecute any alcohol or drug abuse patient.[facility] CenterIn the event this information is protected by the Federal Confidentiality of Alcohol and Drug Abuse Patient Records regulations: The Federal rules restrict any use of the information to criminally investigate or prosecute any alcohol or drug abuse patient.[facility] CenterIn the event this information is protected by the Federal Confidentiality of Alcohol and Drug Abuse Patient Records regulations: The Federal rules restrict any use of the information to criminally investigate or prosecute any alcohol or drug abuse patient.[facility] CenterIn the event this information is protected by the Federal Confidentiality of Alcohol and Drug Abuse Patient Records regulations: The Federal rules restrict any use of the information to criminally investigate or prosecute any alcohol or drug abuse patient.[facility] CenterIn the event this information is protected by the Federal Confidentiality of Alcohol and Drug Abuse Patient Records regulations: The Federal rules restrict any use of the information to criminally investigate or prosecute any alcohol or drug abuse patient.[facility] CenterIn the event this information is protected by the Federal Confidentiality of Alcohol and Drug Abuse Patient Records regulations: The Federal rules restrict any use of the information to criminally investigate or prosecute any alcohol or drug abuse patient.[facility] CenterIn the event this information is protected by the Federal Confidentiality of Alcohol and Drug Abuse Patient Records regulations: The Federal rules restrict any use of the information to criminally investigate or prosecute any alcohol or drug abuse patient.[facility] CenterIn the event this information is protected by the Federal Confidentiality of Alcohol and Drug Abuse Patient Records regulations: The Federal rules restrict any use of the information to criminally investigate or prosecute any alcohol or drug abuse patient.[facility] CenterIn the event this information is protected by the Federal Confidentiality of Alcohol and Drug Abuse Patient Records regulations: The Federal rules restrict any use of the information to criminally investigate or prosecute any alcohol or drug abuse patient.[facility] CenterIn the event this information is protected by the Federal Confidentiality of Alcohol and Drug Abuse Patient Records regulations: The Federal rules restrict any use of the information to criminally investigate or prosecute any alcohol or drug abuse patient.[facility] CenterIn the event this information is protected by the Federal Confidentiality of Alcohol and Drug Abuse Patient Records regulations: The Federal rules restrict any use of the information to criminally investigate or prosecute any alcohol or drug abuse patient.[facility] CenterIn the event this information is protected by the Federal Confidentiality of Alcohol and Drug Abuse Patient Records regulations: The Federal rules restrict any use of the information to criminally investigate or prosecute any alcohol or drug abuse patient.[facility] CenterIn the event this information is protected by the Federal Confidentiality of Alcohol and Drug Abuse Patient Records regulations: The Federal rules restrict any use of the information to criminally investigate or prosecute any alcohol or drug abuse patient.[facility] CenterIn the event this information is protected by the Federal Confidentiality of Alcohol and Drug Abuse Patient Records regulations: The Federal rules restrict any use of the information to criminally investigate or prosecute any alcohol or drug abuse patient.[facility] CenterIn the event this information is protected by the Federal Confidentiality of Alcohol and Drug Abuse Patient Records regulations: The Federal rules restrict any use of the information to criminally investigate or prosecute any alcohol or drug abuse patient.[facility] the event this information is protected by the Federal Confidentiality of Alcohol and Drug Abuse Patient Records regulations: The Federal rules restrict any use of the information to criminally investigate or prosecute any alcohol or drug abuse patient.[facility] CenterIn the event this information is protected by the Federal Confidentiality of Alcohol and Drug Abuse Patient Records regulations: The Federal rules restrict any use of the information to criminally investigate or prosecute any alcohol or drug abuse patient.[facility] CenterIn the event this information is protected by the Federal Confidentiality of Alcohol and Drug Abuse Patient Records regulations: The Federal rules restrict any use of the information to criminally investigate or prosecute any alcohol or drug abuse patient.[facility]In the event this information is protected by the Federal Confidentiality of Alcohol and Drug Abuse Patient Records regulations: The Federal rules restrict any use of the information to criminally investigate or prosecute any alcohol or drug abuse patient.[facility] CenterIn the event this information is protected by the Federal Confidentiality of Alcohol and Drug Abuse Patient Records regulations: The Federal rules restrict any use of the information to criminally investigate or prosecute any alcohol or drug abuse patient.[facility] CenterIn the event this information is protected by the Federal Confidentiality of Alcohol and Drug Abuse Patient Records regulations: The Federal rules restrict any use of the information to criminally investigate or prosecute any alcohol or drug abuse patient.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 FMLA Paperwork Reason Comments Rectal Cancer Reason Comments Disability Jayant Reason Comments Patient Update Reason Comments Patient Education Reason Comments Pre-Op Update Preop labs (ConABO) Reason Comments Medication Follow-up capecitabine prior auth submitted Reason Onset Date Comments Refill Request 02/18/2022 Reason Comments Consult Specialty Diagnoses / Procedures Referred By Contac t Referred To Contact Radiation Oncology Diagnoses Rectosigmoid cancer (HCC) Procedures RAD/ONC CONSULT OFFICE/OUTPATIENT [facility] MDM 60-74 MINUTES Oscar Gonzalez MD [address] [place] [id number] Referral ID Status Reason Start Date Expiration Date V isits Requested Visits Authorized [id number] Closed PCP Requested Referral 02/11/2022 02/10/2023 1 1 Reason Comments Care Coordination follow up, treatment plan Reason Onset Date Comments Refill Request 02/24/2022 Reason Comments Follow Up Gyant interaction - F/U - attempt made. No answer. Reason Comments First Time Treatment Education Reason Comments Rectosigmoid cancer follow up Reason Comments Patient Question Reason Comments Care Coordination C1D1 treatment follo w up call Reason Comments Disability Paperwork Reason Comments Post Op Reason Onset Date Comments Research F/U 03/25/2022 Reason Comments Radiotherapy On-treatment Visit Reason Comments Rectosigmoid cancer 2 week follow up Reason Comments Rectosigmoid cancer 2 week follow up Reason Comments Care Coordination medication request Reason Comments Care Coordination Back to Work Request Reason Comments Return To Work Letter Specialty Diagnoses / Procedures Referred By Contac t Referred To Contact MR IMAGING Diagnoses Malignant neoplasm of rectum (HCC) Procedures MRI RECTUM WO/W IVCON MRI PELVIS W/O & W/CONTRAST MATERIAL Oscar Gonzalez MD [address] [place] [address] Mr Imaging Referral ID Status Reason Start Date Expiration Date V isits Requested Visits Authorized [id number] Closed Auto-Generate d Referral 04/18/2022 05/17/2022 1 1 Reason Onset Date Comments Refill Request 05/24/2022 Reason Comments Nurse Triage Call Post Radiation Nurse Call Reason Onset Date Comments Research Follow Up 05/25/2022 Reason Comments Rectosigmoid cancer 6 week follow up Reason Onset Date Comments Research Follow Up 05/30/2022 Reason Onset Date Comments Refill Request 06/03/2022 Reason Comments Medication Update CAPOX-capecitabine Reason Onset Date Comments Refill Request 06/23/2022 Specialty Diagnoses / Procedures Referred By Contac t Referred To Contact Diagnoses Rectal cancer (HCC) Procedures PALONOSETRON HCL OXALIPLATIN Oscar Gonzalez MD [address] [place] [address] [facility] [address] [place] [address] Referral ID Status Reason Start Date Expiration Date V isits Requested Visits Authorized [id number] Authorized 05/24/2022 11/09/2022 8 8 Reason Comments Care Coordination Medication update Reason Onset Date Comments Refill Request 07/15/2022 Reason Comments Chemotherapy Treatment Specialty Diagnoses / Procedures Referred By Contac t Referred To Contact Diagnoses Rectal cancer (HCC) Procedures PALONOSETRON HCL OXALIPLATIN Oscar Gonzalez MD [address] [place] [address] [facility] [address] [place] [address] Reason Comments Care Coordination Clinical update Reason Comments B-12 Injection Reason Onset Date Comments Research Follow Up 08/25/2022 Reason Comments Rectal Cancer OTV 3 weeks Reason Onset Date Comments Research Follow Up 08/26/2022 Reason Onset Date Comments Refill Request 08/26/2022 Reason Onset Date Comments Refill Request 09/05/2022 Reason Comments APPOINTMENT INSTRUCTIONS MRI- 09/26/2022 @ 200PMAppointment reminder call- spoke with Elsa- gave directions to the office- states patient has another appointment before ours and will be here after Specialty Diagnoses / Procedures Referred By Contac t Referred To Contact CT IMAGING Diagnoses Lung nodules Procedures CT CHEST W IVCON DIAGNOSTIC COMPUTED TOMOGRAPHY THORAX W/CONTRAST Temi Dean PA-C [address] [place] [address] Ct Imaging Referral ID Status Reason Start Date Expiration Date V isits Requested Visits Authorized [id number] Closed Auto-Generate d Referral 08/26/2022 10/01/2022 1 1 Reason Comments Care Coordination MRI results Reason Comments Follow Up Reason Comments Anesthesia Consult Patient not schedule d PACC Reason Comments Anesthesia Consult 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 Reason Comments Refill Request Reason Comments Follow Up All clear Reason Onset Date Comments Research Follow Up 02/28/2023 Reason Onset Date Comments Research Follow Up 03/02/2023 Care Teams (unrecognized sec tion and content) Vamp Stitcher Relationship Specialty Start Date End Date Meghan Pichardo RN [address] [place], [place] [id number] Specialty Insurance Account Executive Hematology/Oncology 03/01/22 Oscar Gonzalez MD [address] [place] [address] Physician Hematology/Oncology 03/01/22 Temi Dean PA-C [address] [place] [address] Physician Scheduler Maintenance Hematology/Oncology 03/01/22 Vamp Stitcher Relationship Specialty Start Date End Date Meghan Pichardo RN [address] [place] [address] Specialty Insurance Account Executive Hematology/Oncology 03/01/22 Oscar Gonzalez MD [address] [place] [address] Physician Hematology/Oncology 03/01/22 Temi Dean PA-C [address] [employer] [facility] [place] [address] Physician Scheduler Maintenance Hematology/Oncology 03/01/22 Vamp Stitcher Relationship Specialty Start Date End Date Meghan Pichardo RN [address] [facility] [place] [address] Specialty Insurance Account Executive Hematology/Oncology 03/01/22 Oscar Gonzalez MD [address] [facility] [place] [address] Physician Hematology/Oncology 03/01/22 Temi Dean PA-C [address] [place] [address] Physician Scheduler Maintenance Hematology/Oncology 03/01/22 Vamp Stitcher Relationship Specialty Start Date End Date Meghan Pichardo RN [address] [place] [address] Specialty Insurance Account Executive Hematology/Oncology 03/01/22 Oscar Gonzalez MD [address] [place] [address] Physician Hematology/Oncology 03/01/22 Temi Dean PA-C [address] [place] [address] Physician Scheduler Maintenance Hematology/Oncology 03/01/22 Vamp Stitcher Relationship Specialty Start Date End Date Meghan Pichardo RN [address] [place] [address] Specialty Insurance Account Executive Hematology/Oncology 03/01/22 Oscar Gonzalez MD [address] [facility] [place] [address] Physician Hematology/Oncology 03/01/22 Temi Dean, PAChristopherC [address] [facility] [place] [address] Physician Scheduler Maintenance Hematology/Oncology 03/01/22 Vamp Stitcher Relationship Specialty Start Date End Date Meghan Pichardo RN [address] [facility] [place] [address] Specialty Insurance Account Executive Hematology/Oncology 03/01/22 Oscar Gonzalez MD [address] [place] [address] Physician Hematology/Oncology 03/01/22 Temi Dean PA-C [address] [place] [address] Physician Scheduler Maintenance Hematology/Oncology 03/01/22 Vamp Stitcher Relationship Specialty Start Date End Date Meghan Pichardo RN [address] [place] [address] Specialty Insurance Account Executive Hematology/Oncology 03/01/22 Oscar Gonzalez MD [address] [place] [address] Physician Hematology/Oncology 03/01/22 Temi Dean PA-C [address] [place] [address] Physician Scheduler Maintenance Hematology/Oncology 03/01/22 Vamp Stitcher Relationship Specialty Start Date End Date Meghan Pichardo RN [address] [place] [address] Specialty Insurance Account Executive Hematology/Oncology 03/01/22 Oscar Gonzalez MD [address] [place] [address] Physician Hematology/Oncology 03/01/22 Temi Dean PA-C [address] [place] [address] Physician Scheduler Maintenance Hematology/Oncology 03/01/22 Vamp Stitcher Relationship Specialty Start Date End Date Meghan Pichardo RN [address] [place] [address] Specialty Insurance Account Executive Hematology/Oncology 03/01/22 Oscar Gonzalez MD [address] [place] [address] Physician Hematology/Oncology 03/01/22 Temi Dean PA-C [address] [place] [address] Physician Scheduler Maintenance Hematology/Oncology 03/01/22 Vamp Stitcher Relationship Specialty Start Date End Date Meghan Pichardo RN [address] [place] [address] Specialty Insurance Account Executive Hematology/Oncology 03/01/22 Oscar Gonzalez MD [address] [place] [address] Physician Hematology/Oncology 03/01/22 Temi Dean PA-C [address] [place] [address] Physician Scheduler Maintenance Hematology/Oncology 03/01/22 Vamp Stitcher Relationship Specialty Start Date End Date Meghan Pichardo RN [address] [place] [address] Specialty Insurance Account Executive Hematology/Oncology 03/01/22 Oscar Gonzalez MD [address] [place] [address] Physician Hematology/Oncology 03/01/22 Temi Dean PA-C [address] [place] [address] Physician Scheduler Maintenance Hematology/Oncology 03/01/22 Vamp Stitcher Relationship Specialty Start Date End Date Meghan Pichardo RN [address] [place] [address] Specialty Insurance Account Executive Hematology/Oncology 03/01/22 Oscar Gonzalez MD [address] [place] [address] Physician Hematology/Oncology 03/01/22 Temi Dean PA-C [address] [place] [address] Physician Scheduler Maintenance Hematology/Oncology 03/01/22 Vamp Stitcher Relationship Specialty Start Date End Date Meghan Pichardo RN [address] [facility] [place] [address] Specialty Insurance Account Executive Hematology/Oncology 03/01/22 Oscar Gonzalez MD [address] [place] [address] Physician Hematology/Oncology 03/01/22 Temi Dean PA-C [address] [facility] [place] [address] Physician Scheduler Maintenance Hematology/Oncology 03/01/22 Vamp Stitcher Relationship Specialty Start Date End Date Meghan Pichardo RN [address] [place] [address] Specialty Insurance Account Executive Hematology/Oncology 03/01/22 Oscar Gonzalez MD [address] [facility] [place] [address] Physician Hematology/Oncology 03/01/22 Temi Dean, SUJATAC [address] [facility] [place] [address] Physician Scheduler Maintenance Hematology/Oncology 03/01/22 Vamp Stitcher Relationship Specialty Start Date End Date Meghan Pichardo RN [address] [facility] [place] [address] Specialty Insurance Account Executive Hematology/Oncology 03/01/22 Oscar Gonzalez MD [address] [facility] [place] [address] Physician Hematology/Oncology 03/01/22 Temi Dean, PAChristopherC [address] [facility] [place] [address] Physician Scheduler Maintenance Hematology/Oncology 03/01/22 Vamp Stitcher Relationship Specialty Start Date End Date Meghan Pichardo RN [address] [facility] [place] [address] Specialty Insurance Account Executive Hematology/Oncology 03/01/22 Oscar Gonzalez MD [address] [facility] [place] [address] Physician Hematology/Oncology 03/01/22 Temi Dean, PAChristopherC [address] [place] [address] Physician Scheduler Maintenance Hematology/Oncology 03/01/22 Vamp Stitcher Relationship Specialty Start Date End Date Meghan Pichardo RN [address] [place] [address] Specialty Insurance Account Executive Hematology/Oncology 03/01/22 Oscar Gonzalez MD [address] [place] [address] Physician Hematology/Oncology 03/01/22 Temi Dean, PAChristopherC [address] [place] [address] Physician Scheduler Maintenance Hematology/Oncology 03/01/22 Vamp Stitcher Relationship Specialty Start Date End Date Meghan Pichardo RN [address] [place] [address] Specialty Insurance Account Executive Hematology/Oncology 03/01/22 Oscar Gonzalez MD [address] [place] [address] Physician Hematology/Oncology 03/01/22 Temi Dean, PAChristopherC [address] [facility] [place] [address] Physician Scheduler Maintenance Hematology/Oncology 03/01/22 Vamp Stitcher Relationship Specialty Start Date End Date Meghan Pichardo RN [address] [facility] [place] [address] Specialty Insurance Account Executive Hematology/Oncology 03/01/22 Oscar Gonzalez MD [address] [place] [address] Physician Hematology/Oncology 03/01/22 Temi Dean, PAChristopherC [address] [place] [address] Physician Scheduler Maintenance Hematology/Oncology 03/01/22 Vamp Stitcher Relationship Specialty Start Date End Date Meghan Pichardo RN [address] [place] [address] Specialty Insurance Account Executive Hematology/Oncology 03/01/22 Oscar Gonzalez MD [address] [place] [address] Physician Hematology/Oncology 03/01/22 Temi Dean PA-C [address] [place] [address] Physician Scheduler Maintenance Hematology/Oncology 03/01/22 Vamp Stitcher Relationship Specialty Start Date End Date Meghan Pichardo RN [address] [place] [address] Specialty Insurance Account Executive Hematology/Oncology 03/01/22 Oscar Gonzalez MD [address] [place] [address] Physician Hematology/Oncology 03/01/22 Temi Dean PAChristopherC [address] [place] [address] Physician Scheduler Maintenance Hematology/Oncology 03/01/22 Vamp Stitcher Relationship Specialty Start Date End Date Meghan Pichardo RN [address] [place] [address] Specialty Insurance Account Executive Hematology/Oncology 03/01/22 Oscar Gonzalez MD [address] [place] [address] Physician Hematology/Oncology 03/01/22 Temi Dean PA-C [address] [facility] [place] [address] Physician Scheduler Maintenance Hematology/Oncology 03/01/22 Vamp Stitcher Relationship Specialty Start Date End Date Meghan Pichardo RN [address] [place] [address] Specialty Insurance Account Executive Hematology/Oncology 03/01/22 Oscar Gonzalez MD [address] [place] [address] Physician Hematology/Oncology 03/01/22 Temi Dean PA-C [address] [place] [address] Physician Scheduler Maintenance Hematology/Oncology 03/01/22 Vamp Stitcher Relationship Specialty Start Date End Date Meghan Pichardo RN [address] [place] [address] Specialty Insurance Account Executive Hematology/Oncology 03/01/22 Oscar Gonzalez MD [address] [place] [address] Physician Hematology/Oncology 03/01/22 Temi Dean PA-C [address] [place] [address] Physician Scheduler Maintenance Hematology/Oncology 03/01/22 Vamp Stitcher Relationship Specialty Start Date End Date Meghan Pichardo RN [address] [facility] [place] [address] Specialty Insurance Account Executive Hematology/Oncology 03/01/22 Oscar Gonzalez MD [address] [facility] [address] Physician Hematology/Oncology 03/01/22 Temi Dean PA-C [address] [facility] [place] [address] Physician Scheduler Maintenance Hematology/Oncology 03/01/22 Vamp Stitcher Relationship Specialty Start Date End Date Meghan Pichardo RN [address] [facility] [place] [address] Specialty Insurance Account Executive Hematology/Oncology 03/01/22 Oscar Gonzalez MD [address] [place] [address] Physician Hematology/Oncology 03/01/22 Temi Dean, PAChristopherC [address] [facility] [place] [address] Physician Scheduler Maintenance Hematology/Oncology 03/01/22 Vamp Stitcher Relationship Specialty Start Date End Date Shaikh Adam MD [address] [place] [address] PCP - General Primary Care 08/05/22 Meghan Pichardo RN [address] [place] [address] Specialty Insurance Account Executive Hematology/Oncology 03/01/22 Oscar Gonzalez MD [address] [place] [address] Physician Hematology/Oncology 03/01/22 Temi Dean PAChristopherC [address] [place] [address] Physician Scheduler Maintenance Hematology/Oncology 03/01/22 Vamp Stitcher Relationship Specialty Start Date End Date Shaikh Adam MD [address] [place] [address] PCP - General Primary Care 08/05/22 Meghan Pichardo RN [address] [facility] [place] [address] Specialty Insurance Account Executive Hematology/Oncology 03/01/22 Oscar Gonzalez MD [address] [place] [address] Physician Hematology/Oncology 03/01/22 Temi Dean PA-C [address] [facility] [place] [address] Physician Scheduler Maintenance Hematology/Oncology 03/01/22 Vamp Stitcher Relationship Specialty Start Date End Date Shaikh Adam MD [address] [place] [address] PCP - General Primary Care 08/05/22 Meghan Pichardo, RN [address] [facility] [place] [address] Specialty Insurance Account Executive Hematology/Oncology 03/01/22 Oscar Gonzalez MD [address] [place] [address] Physician Hematology/Oncology 03/01/22 Temi Dean PA-C [address] [facility] [place] [address] Physician Scheduler Maintenance Hematology/Oncology 03/01/22 Vamp Stitcher Relationship Specialty Start Date End Date Shaikh Adam MD [address] [place] [address] PCP - General Primary Care 08/05/22 Meghan Pichardo RN [address] [facility] [place] [address] Specialty Insurance Account Executive Hematology/Oncology 03/01/22 Oscar Gonzalez MD [address] [place] [address] Physician Hematology/Oncology 03/01/22 Temi Dean PA-C [address] [facility] [place] [address] Physician Scheduler Maintenance Hematology/Oncology 03/01/22 Vamp Stitcher Relationship Specialty Start Date End Date Shaikh Adam MD [address] [place] [address] PCP - General Primary Care 08/05/22 Meghan Pichardo, RN [address] [facility] [place] [address] Specialty Insurance Account Executive Hematology/Oncology 03/01/22 Oscar Gonzalez MD [address] [place] [address] Physician Hematology/Oncology 03/01/22 Temi Dean PA-C [address] [facility] [place] [address] Physician Scheduler Maintenance Hematology/Oncology 03/01/22 Vamp Stitcher Relationship Specialty Start Date End Date Shaikh Adam MD [address] [place] [address] PCP - General Primary Care 08/05/22 Meghan Pichardo RN [address] [facility] [place] [address] Specialty Insurance Account Executive Hematology/Oncology 03/01/22 Oscar Gonzalez MD [address] [facility] [place] [address] Physician Hematology/Oncology 03/01/22 Temi Dean PA-C [address] [facility] [place] [address] Physician Scheduler Maintenance Hematology/Oncology 03/01/22 Vamp Stitcher Relationship Specialty Start Date End Date Shaikh Adam MD [address] [place] [address] PCP - General Primary Care 08/05/22 Meghan Pichardo RN [address] [place] [address] Specialty Insurance Account Executive Hematology/Oncology 03/01/22 Oscar Gonzalez MD [address] [place] [address] Physician Hematology/Oncology 03/01/22 Temi Dean PA-C [address] [place] [address] Physician Scheduler Maintenance Hematology/Oncology 03/01/22 Vamp Stitcher Relationship Specialty Start Date End Date Shaikh Adam MD [address] [place] [address] PCP - General Primary Care 08/05/22 Meghan Pichardo RN [address] [place] [address] Specialty Insurance Account Executive Hematology/Oncology 03/01/22 Oscar Gonzalez MD [address] [place] [address] Physician Hematology/Oncology 03/01/22 Temi Dean PA-C [address] [place] [address] Physician Scheduler Maintenance Hematology/Oncology 03/01/22 Vamp Stitcher Relationship Specialty Start Date End Date Shaikh Adam MD [address] [place] [address] PCP - General Primary Care 08/05/22 Meghan Pichardo RN [address] [place] [address] Specialty Insurance Account Executive Hematology/Oncology 03/01/22 Oscar Gonzalez MD [address] [place] [address] Physician Hematology/Oncology 03/01/22 Temi Dean PA-C [address] [facility] [place] [address] Physician Scheduler Maintenance Hematology/Oncology 03/01/22 Vamp Stitcher Relationship Specialty Start Date End Date Shaikh Adam MD [address] [place] [address] PCP - General Primary Care 08/05/22 Meghan Pichardo RN [address] [facility] [place] [place] [address] Specialty Insurance Account Executive Hematology/Oncology 03/01/22 Oscar Gonzalez MD [address] [place] [address] Physician Hematology/Oncology 03/01/22 Temi Dean PA-C [address] [facility] [place] [address] Physician Scheduler Maintenance Hematology/Oncology 03/01/22 Vamp Stitcher Relationship Specialty Start Date End Date Shaikh Adam MD [address] [place] [address] PCP - General Primary Care 08/05/22 Meghan Pichardo RN [address] [facility] [place] [address] Specialty Insurance Account Executive Hematology/Oncology 03/01/22 Oscar Gonzalez MD [address] [place] [address] Physician Hematology/Oncology 03/01/22 Temi Dean PA-C [address] [facility] [place] [address] Physician Scheduler Maintenance Hematology/Oncology 03/01/22 Vamp Stitcher Relationship Specialty Start Date End Date Shaikh Adam MD [address] [place] [address] PCP - General Primary Care 08/05/22 Meghan Pichardo, RN [address] [facility] [place] [address] Specialty Insurance Account Executive Hematology/Oncology 03/01/22 Oscar Gonzalez MD [address] [place] [address] Physician Hematology/Oncology 03/01/22 Temi Dean PA-C [address] [facility] [place] [address] Physician Scheduler Maintenance Hematology/Oncology 03/01/22 Vamp Stitcher Relationship Specialty Start Date End Date Shaikh Adam MD [address] [place] [address] PCP - General Primary Care 08/05/22 Meghan Pichardo RN [address] [facility] [place] [address] Specialty Insurance Account Executive Hematology/Oncology 03/01/22 Oscar Gonzalez MD [address] [facility] [place] [address] Physician Hematology/Oncology 03/01/22 Temi Dean PA-C [address] [facility] [place] [address] Physician Scheduler Maintenance Hematology/Oncology 03/01/22 Vamp Stitcher Relationship Specialty Start Date End Date Shaikh Adam MD [address] [place] [address] PCP - General Primary Care 08/05/22 Meghan Pichardo RN [address] [place] [address] Specialty Insurance Account Executive Hematology/Oncology 03/01/22 Oscar Gonzalez MD [address] [facility] [place] [address] Physician Hematology/Oncology 03/01/22 Temi Dean PA-C [address] [place] [address] Physician Scheduler Maintenance Hematology/Oncology 03/01/22 Vamp Stitcher Relationship Specialty Start Date End Date Shaikh Adam MD [address] [place] [address] PCP - General Primary Care 08/05/22 Meghan Pichardo RN [address] [place] [address] Specialty Insurance Account Executive Hematology/Oncology 03/01/22 Oscar Gonzalez MD [address] [place] [address] Physician Hematology/Oncology 03/01/22 Temi Dean, PAFeliz [address] [place] [address] Physician Scheduler Maintenance Hematology/Oncology 03/01/22 Vamp Stitcher Relationship Specialty Start Date End Date Shaikh Adam MD [address] [place] [address] PCP - General Primary Care 08/05/22 Meghan Pichardo RN [address] [place] [address] Specialty Insurance Account Executive Hematology/Oncology 03/01/22 Oscar Gonzalez MD [address] [facility] [place] [address] Physician Hematology/Oncology 03/01/22 Temi Dean PA-C [address] [facility] [place] [address] Physician Scheduler Maintenance Hematology/Oncology 03/01/22 Vamp Stitcher Relationship Specialty Start Date End Date Shaikh Adam MD [address] [place] [address] PCP - General Primary Care 08/05/22 Meghan Pichardo RN [address] [facility] [place] [address] Specialty Insurance Account Executive Hematology/Oncology 03/01/22 Oscar Gonzalez MD [address] [place] [address] Physician Hematology/Oncology 03/01/22 Temi Dean PA-C [address] [facility] [place] [address] Physician Scheduler Maintenance Hematology/Oncology 03/01/22 Vamp Stitcher Relationship Specialty Start Date End Date Shaikh Adam MD [address] [place] [address] PCP - General Primary Care 08/05/22 Meghan Pichardo RN [address] [facility] [place] [address] Specialty Insurance Account Executive Hematology/Oncology 03/01/22 Oscar Gonzalez MD [address] [place] [address] Physician Hematology/Oncology 03/01/22 Temi Dean PA-C [address] [facility] [place] [address] Physician Scheduler Maintenance Hematology/Oncology 03/01/22 Vamp Stitcher Relationship Specialty Start Date End Date Shaikh Adam MD [address] [place] [address] PCP - General Primary Care 08/05/22 Meghan Pichardo, RN [address] [facility] [place] [address] Specialty Insurance Account Executive Hematology/Oncology 03/01/22 Oscar Gonzalez MD [address] [place] [address] Physician Hematology/Oncology 03/01/22 Temi Dean, PA-C [address] [facility] [place] [address] Physician Scheduler Maintenance Hematology/Oncology 03/01/22 Vamp Stitcher Relationship Specialty Start Date End Date Shaikh Adam MD [address] [place] [address] PCP - General Primary Care 08/05/22 Meghan Pichardo RN [address] [facility] [place] [address] Specialty Insurance Account Executive Hematology/Oncology 03/01/22 Oscar Gonzalez MD [address] [place] [address] [place] [address] Physician Hematology/Oncology 03/01/22 Temi Dean, PAChristopherC [address] [facility] [place] [address] Physician Scheduler Maintenance Hematology/Oncology 03/01/22 Vamp Stitcher Relationship Specialty Start Date End Date Shaikh Adam MD [address] [place] [address] PCP - General Primary Care 08/05/22 Meghan Pichardo RN [address] [place] [address] [place] [address] Specialty Insurance Account Executive Hematology/Oncology 03/01/22 Oscar Gonzalez MD [address] [place] [address] [place] [address] Physician Hematology/Oncology 03/01/22 Temi Dean PA-C [address] [place] [address] [place] [address] Physician Scheduler Maintenance Hematology/Oncology 03/01/22 FOR RECORDS PERTAINING TO PATIENTS WHO ARE OR HAVE BEEN ENROLLED IN A CHEMICAL DEPENDENCY/SUBSTANCEABUSE PROGRAM, SOME INFORMATION MAY BE OMITTED. This clinical summary was aggregated from multiple sources. Caution should be exercised in using it in the provision of clinical care. This summary normalizes information from multiple sources, and as a consequence, information in this document may materially change the coding, format and clinical context of patient data. In addition, data may be omitted in some cases. CLINICAL DECISIONS SHOULD BE BASED ON THE PRIMARY CLINICAL RECORDS. [facility]. provides no warranty or guarantee of the accuracy or completeness of information in this document.
== END 2024-02-24 09:09 | disposition home or self-care (01) ==
LOC: CT 09:08
PROVIDERS: PCP Internal Medicine; Visit Provider Internal Medicine
DX: K40.90 Unilateral inguinal hernia, without obstruction or gangrene, not specified as recurrent (principal)
CPT/HCPCS: 74177; Q9967

== ENCOUNTER 2024-03-04 07:36 | Outpatient (OUT) | payer BC, SELFPAY ==
--- NOTE | 2024-03-04 07:30 | CA_ITS ---
Patient Name: ANDREW MAHONEY MR#: [id number] : 1975 Exam Date: 03/04/2024 Ordering Doctor: SHAIKH Daren DOMINGUEZ . ECHOCARDIOGRAM REPORT PROCEDURE: CA ECHO DOPPLER COMPLETE INDICATIONS: H/o severe tricuspid regurgitation, h/o colon cancer - chemo therapy, radiation COMPARISON: None. DESCRIPTION: COMPLETE ECHOCARDIOGRAM Real-time transthoracic echocardiography with 2D, M-mode, spectral and color flow Doppler performed. QUALITY: Technical quality was good. 68 , 135#, BSA 1.73 m2, BP 126/80 LEFT VENTRICLE: Normal chamber size. Normal left ventricular wall thickness. D-shaped septum consistent with right ventricular pressure and/or volume overload. LV EF: Global left ventricular systolic function is normal; visually estimated ejection fraction is 60 to 65%. No significant wall motion abnormalities. DIASTOLIC: Diastolic function is normal. ATRIAL SEPTUM: Visually appears intact. LEFT ATRIUM: Normal chamber size. RIGHT ATRIUM: Severe dilatation. A prominent membrane in the midportion of the right atrium is seen likely representing a Eustachian valve. Differential diagnosis includes Cor triatriatum loida. Recommend further imaging as clinically appropriate. RIGHT VENTRICLE: Severe dilatation. Right ventricular systolic function is severely reduced. TRICUSPID VALVE: Normal mobility and thickness. No stenosis with severe regurgitation. Right ventricular systolic pressure is mildly elevated; RVSP 38 mmHg MITRAL VALVE: Normal mobility and thickness. No evidence of mitral valve stenosis. Mild mitral annular calcification. No mitral regurgitation. AORTIC VALVE: Normal trileaflet appearance. No visible sclerosis. Normal leaflet mobility. No evidence of aortic valve stenosis. No aortic regurgitation. AORTIC ROOT: Normal diameter and appearance. Ascending aorta is normal in size. PULMONIC VALVE: Normal thickness and mobility. No stenosis. No regurgitation. PERICARDIUM: No evidence of pericardial effusion. IVC: Collapses with inspirations. IVC is dilated (2.5 cm) CONCLUSION: 1. Global left ventricular systolic function is normal; visually estimated ejection fraction is 60 to 65% 2. D-shaped septum consistent with right ventricular pressure and/or volume overload 3. The right ventricle is severely dilated with severely reduced systolic function 4. The right atrium is severely dilated; a prominent membrane in the midportion of the right atrium is seen likely representing a Eustachian valve. Differential diagnosis includes Cor triatriatum loida. Recommend further imaging as clinically appropriate (e.g [facility], cardiac CT, or MRI). 5. Severe tricuspid regurgitation 6. Mildly elevated right ventricular systolic pressure; RVSP 38 mmHg Would recommend referral to a asset specialist if not already done Adult Echocardiography Procedure Report Left Ventricle LVEDD (3.7 - 5.6 cm): 4.01 cm LVESD (2.2 - 4.0 cm): 2.77 cm LVIVS thickness (0.6 - 1.2 cm): 0.79 cm LVPW thickness (0.5 - 1.0 cm): 1.10 cm e': 0.22 m/s E - e': 3.38 LVOT Max Gradient: 2.23 mm[Hg] LVOT Area (cm2): 0.75 m/s Peak Velocity (LVOT): 0.75 m/s Mean Velocity (LVOT): 0.51 m/s LVOT Diameter 2.06 cm Left Atrium LA Volume Index (2D A2C): 32.33 ml/m2 Left Atrium Systolic Dimension: 3.11 cm Mitral Valve MV E to A Ratio: 1.25 Mitral Valve A-Wave Peak Velocity: 0.60 m/s Mitral Valve E-Wave Peak Velocity: 0.75 m/s Right Ventricle Aorta AO Root Diam: 3.34 cm Ascending Ao Diam: 2.46 cm Aortic Valve AoV Area (Peak Sergey): 2.29 cm2, 2.29 cm2 AoV Area (VTI): 2.36 cm2, 2.36 cm2 Peak Velocity(Antegrade Flow): 1.09 m/s Peak Gradient(Antegrade Flow): 4.75 mm[Hg] Mean Velocity(Antegrade Flow): 0.73 m/s Mean Gradient(Antegrade Flow): 2.49 mm[Hg] Velocity Time Integral: 21.01 cm Tricuspid Valve Peak Velocity (Regurgitant Flow): 2.50 m/s, 2.75 m/s Pulmonic Valve Peak Gradient: 1.41 mm[Hg], 2.88 mm[Hg] Right Atrium Right Atrium Systolic Pressure: 113.34 ml, 113.34 ml Dictated by: Mariama Joel M.D. on 03/05/2024 at 16:21 Approved by: Mariama Joel M.D. on 03/05/2024 at 16:33
== END 2024-03-04 07:37 | disposition home or self-care (01) ==
LOC: CARD 07:37
PROVIDERS: PCP Internal Medicine; Visit Provider Internal Medicine
DX: I07.1 Rheumatic tricuspid insufficiency (principal)
CPT/HCPCS: 93306; 93356

== ENCOUNTER 2024-03-11 09:10 | Outpatient (OUT) | payer BC, SELFPAY ==
--- NOTE | 2024-03-11 09:12 | ECG_ITS ---
[facility] Test Date: 2024-03-11 Pat Name: ANDREW MAHONEY Department: Room: - Gender: Male [employer]er: : 1975 Requested By: SHAIKH ANGELICA Order Number: [id number] Reading MD: RICHMOND HUANG Measurements Intervals [place] Rate: 65 P: 145 HI: 202 QRS: 150 QRSD: 135 T: 43 QT: 400 QTc: 419 Interpretive Statements ECTOPIC ATRIAL RHYTHM INTRAVENTRICULAR CONDUCTION DELAY [130+ ms QRS DURATION] POSSIBLE RIGHT VENTRICULAR HYPERTROPHY [SOME/ALL OF: PROMINENT R IN V1, LATE TRANSITION, RAD, ERICK, SSS] No previous ECG available for comparison Electronically Signed On 03-11-2024 23:02:13 EDT by RICHMOND HUANG
--- OUTSIDE RECORDS SUMMARY | 2024-03-11 09:30 | XMS_ITS | CCD ---
Author Organization [facility] Care Team Providers Care [employer] Name Role Phone Unavailable Primary Care Provider Unavailmeg e Marino RN, Meghan Shelton Unavailable Oscar Gonzalez MD Unavailable [phone] Temi Dean PA-C Unavailable Marino STATON, Meghan Shelton Unavailable Oscar Gonzalez MD Unavailable Temi Dean PA-C Unavailable Meghan Pichardo RN Unavailable [phone] Oscar Gonzalez MD Unavailable Shaikh Adam MD Primary Care Provider REQUEST, NONE LISTED Primary Care Unavaila ble PAY, DR CARROLL Admitting Unavailable PAY, DR CARROLL Attending Unavailable PAY, DR CARROLL Consulting Unavailable Kelly Hernandez Consulting Unavailable FAWWAD, BUCHANAN H Admitting Unavailable FAWWAJoby, BUCHANAN H Attending Unavailable FAWWAD, BUCHANAN H Primary Care Unavailable FAWWAD, BUCHANAN H Consulting Unavailable FAWWAD, BUCHANAN H Admitting Unavailable FAWWAD, BUCHANAN H Attending Unavailable KINGWWAJoby, BUCHANAN H Primary Care Unavailable REQUEST, NONE LISTED Primary Care Unavaila ble TRE GARCIA Admitting Unavailable TRE GRACIA Attending Unavailable TRE GARCIA Consulting Unavailable KANU CARNEY Consulting Unavailable Marino STATON, Meghan Shelton Unavailable Oscar Gonzalez MD Unavailable Temi Dean PA-C Unavailable Kia HEARD [facility] Provider BAN, ANA Referring Unavailable [facility] Unavailable BAN, ANA Referring Unavailable CAMELIA THOMASON Attending Unavailable [facility] Unavailable PROVIDER, UNKNOWN Referring Unavailable [facility] Unavailable TEMI DEAN Referring Unavailable [facility] Unavailable TEMI DEAN Referring Unavailable [facility] Unavailable BAN, ANA Admitting Unavailable BANLUCIEEN Attending Unavailable [facility] Unavailable [facility] Unavailable BAN, ANA Admitting Unavailable BAN ANA Attending Unavailable KARAMLOU, OSCAR Referring Unavailable ANOOP, TYLOR Referring Unavailable ANOOPSAJU Attending Unavailable [facility] Unavailable TEMI DEAN Referring Unavailable [facility] Unavailable KAYLIN ARAGON Attending Unavailable [facility] Unavailable BAN ANA Attending Unavailable [facility] Unavailable KARAMLOU, OSCAR Referring Unavailable [facility] Unavailable TEMI DEAN Attending Unavailable KARAMLOU, OSCAR Referring Unavailable [facility] Unavailable KARAMLOU, OSCAR Referring Unavailable [facility] Unavailable BAN ANA Attending Unavailable BAN, ANA Referring Unavailable KARAMLOU, OSCAR Referring Unavailable KARAMLOU, OSCAR Referring Unavailable KARAMLOU, OSCAR Attending Unavailable KARAMLOU, OSCAR Referring Unavailable [facility] Unavailable BAN, ANA Referring Unavailable KARAMLOU, OSCAR Referring Unavailable [facility] Unavailable BAN, ANA Referring [facility]available [facility] Referring [facility] Primary Care Unavailable TEMI DENA Attending Unavailable KARAMLOU, OSCAR Referring Unavailable [facility] Unavailable KARAMLOU, OSCAR Attending Unavailable KARAMLOU, OSCAR Referring Unavailable KIA BUCHANAN Primary Care Unavailable ANA ENRIQUEZ Referring Unavailable KIA, BUCHANAN Primary Care Unavailable ANA ENRIQUEZ Referring Unavailable KIA, BUCHANAN Primary Care Unavailable TEMI DEAN Referring Unavailable OSCAR GONZALEZ Referring Unavailable Marino STATON, Meghan G Unavailable SHAIKH ADAM Attending Unavailable ABBY GARSIA Attending Unavailable Medications Current Medications Medication Drug [...] th every 6 hours as needed for up [...] Comment on above: Take 1 tablet by [facility] DAILY (6 AM). Completed/Discontinued Medications Medication Drug Class(es) Dates Sig (Normalized) Sig (Original) acetaminophen 500 mg oral tablet (20 sources) Start: 02-24-2022 take 2 tablets by mouth every six hours acetaminophen (TYLENOL) 500 mg tablet Take 2 tablets by mouth every 6 hours. 0 02/24/2022 Active Comment on above: Take 2 tablets by [facility] every 6 hours. atorvastatin 10 mg oral tablet (20 sources) HMG-CoA Reductase Inhibitor Start: 02-08-2022 take 1 tablet by mouth once daily atorvastatin (LIPITOR) 10 mg tablet Take 10 mg by mouth once daily. 0 02/08/2022 Active Comment on above: Take 10 mg by mouth once daily. bacillus coagulans [id number] unt / inulin 250 mg oral capsule (20 sources) Start: 02-24-2022 End: 08-16-2022 take 1 capsule by mouth once daily PROBIOTIC FORMULA, INULIN, 1 billion-250 cell-mg cap Take 1 capsule by mouth once daily. 0 02/24/2022 08/16/2022 Discontinued (Discontinued by Patient) Comment on above: Take 1 capsule by mo [facility] once daily. buprenorphine 8 mg / naloxone [...] oral tablet (5 sources) Quinolone Antimicrobial Start: End: take 1 tablet by [...] above: Take 1 tablet by kevin th three times daily. enteric contrast (will be [...] by mouth three times daily with meals. 04272 mL 0 08/05/2022 11/12/2022 Discontinued Start: 08-05-2022 take 237 mL by mouth three times daily at mealtime Food Supplement, Lactose-Free (PROMOTE, OSMOLITE, TWO CADEN, ENSURE PLUS, ENLIVE) liqd Take 237 mL by mouth three times daily with meals. 53722 mL 0 08/05/2022 Active Start: 08-05-2022 End: 09-04-2022 take 237 mL by mouth three times daily at mealtime Food Supplement, Lactose-Free (PROMOTE, OSMOLITE, TWO CADEN, ENSURE PLUS, ENLIVE) liqd Take 237 mL by mouth three times daily with meals. 73497 mL 0 08/05/2022 09/04/2022 Active Comment on [...] Comment on above: Take 1 capsule by [facility] every 8 hours for 14 days. [...] contrast administration guidelines link. lactobacillus rhamnosus gg [id number] unt oral capsule (20 sources) Start: End: take 1 capsule by mouth once daily lactobacillus rhamnosus (CULTURELLE) 10 billion cell capsule Take 1 capsule by mouth once daily. 30 capsule 0 02/22/2023 Active Comment on above: Take 1 capsule by mo [facility] once daily. levothyroxine sodium 0.125 mg oral tablet (20 sources) l-Thyroxine Start: take 1 tablet by mouth once daily levothyroxine (SYNTHROID) 125 mcg tablet Take 125 mcg by mouth once daily. 0 11/01/2021 Active Comment on above: Take 125 mcg by [facility] once daily. loperamide hydrochloride 2 mg oral capsule (10 sources) Opioid Agonist Start: take 1 capsule by mouth twice daily before mealtime loperamide (IMODIUM) 2 mg cap(s) Indications: High output ileostomy (HCC) Take 1 capsule by mouth twice daily before meals (0600/1600). 60 capsule 2 12/06/2022 Active Comment on above: Take 1 capsule by [facility] twice daily before meals (0600/1600). loratadine [...] on above: Take 2 tablets by mo [facility] as directed. Take 2 tablet at 6pm, [...] th every 8 hours as needed for nausea/vomiting. perflutren lipid microspheres 1.3 mL in NaCl (PF) 0.9% 10 mL injection (DEFINVisante) (20 sources) Start: End: perflutren lipid microspheres [...] 09-20-2021 Episodic Other aftercare (1 source) Other care home (current) drug therapy; Translations: [[facility] CURRENT DRUG THERAPY] Onset: 08-31-2021 Episodic Other [...] Test Name Value Interpretation Reference Range Facility [facility] -------- HOANG WHITE ([id number]) 1975 M Date Time Provider Department 06/02/23 ANA ENRIQUEZ [facility] During your visit today, we recorded the following information about you: Ketty Padilla 06/02/2023 10:50 AM Signed Patient called in and he is having discomfort at the stoma site(bulge). Patient had a reversal with Dr. Enriquez on 02/20/23. Contact# [phone] Anthony Caraballo RN 06/02/2023 12:35 PM Signed [...] Status:Closed by ANTHONY CARABALLO on 06/02/23 Normal [facility] LIPID PANEL, NONFASTINGon Cholesterol [Mass/Vol] 202 mg/dL High <200 [facility] Comment on above: Order Comment: Speci men Type: BLOOD SPECIMENOrdering Facility: External Submitter Address: , , Result Comment: <200 mg/dL, Desirable 200-239 mg/dL, Borderline high >239 mg/dL, High Performed By: #### L IP, 3015-12 ####[facility] [id number] [address] OF [facility] HDL CHOLESTEROL, NF 74 mg/dL Normal >39 [facility] Comment on above: Order Comment: Luz Elenayvette ibrahim Type: BLOOD SPECIMENOrdering Facility: External Submitter Address: , , Result Comment: 40-5 9 mg/dL, Acceptable >59 mg/dL, High: Negative risk factor for coronary heart disease <40 mg/dL, Low: Positive risk factor for coronary heart disease Performed By: #### L ANGELINA, 3015- ####[facility] [id number] [address] OF [facility] LDL CHOLESTEROL, NF 109 mg/dL High <100 [facility] Comment on above: Order Comment: Gerry alexandria Type: BLOOD SPECIMENOrdering Facility: External Submitter Address: , , Result Comment: <100 mg/dL, Optimal 100-129 mg/dL, Near optimal/above optimal 130-159 mg/dL, Borderline high 160-189 mg/dL, High >189 mg/dL, Very high Secondary prevention optimal LDL Cholesterol levels are recommended to be < 70 mg/dL Performed By: #### L ANGELINA, 3015-12 ####[facility] [id number] [address] LDL/HDL RATIO, NF 1.47 mg/dL Normal <2.54 [facility] Comment on above: Order Comment: Luz Elenayvette ibrahim Type: BLOOD SPECIMENOrdering Facility: External Submitter Address: , , Result Comment: Refe rence: 1. National Cholesterol Education Program ATP III Guideline At-A-Glance Quick Desk Reference: National Heart, Lung, and Blood Brilliant. National Institutes of Health. 2001: NIH Publication No. 01-3305. 2. An International Atherosclerosis Society position paper: global recommendations for the management of dyslipidemia: executive summary, Atherosclerosis. 2014: 232(2):410-413. Performed By: #### L ANGELINA, 3015- ####[facility] [id number] [address] [place] NON HDL CHOL, NF 128 mg/dL Normal <130 [facility] Comment on above: Order Comment: Speci men Type: BLOOD SPECIMENOrdering Facility: External Submitter Address: , , Result Comment: <130 mg/dL, Optimal 130-159 mg/dL, Near optimal/above optimal 160-189 mg/dL, Borderline high 190-219 mg/dL, High >219 mg/dL, Very high Secondary prevention optimal non HDL Cholesterol levels are recommended to be <100 mg/dL Performed By: #### L IPMADIE, 3015- ####[facility] [id number] [address] [place] T CHOL/HDL RATIO NF 2.73 mg/dL Normal <5.10 [facility] Comment on above: Order Comment: Speci men Type: BLOOD SPECIMENOrdering Facility: External Submitter Address: , , Performed By: #### L ANGELINA, 3015-12 ####[facility] [id number] [place] [address] [place] TRIGLYCERIDES, NF 93 mg/dL Normal <150 [facility] Comment on above: Order Comment: Speci men Type: BLOOD SPECIMENOrdering Facility: External Submitter Address: , , Result Comment: <150 mg/dL, Normal 150-199 mg/dL, Borderline high 200-499 mg/dL, High >499 mg/dL, Very high Performed By: #### L IPMADIE, 3015-12 ####[facility] [id number] [place] [address] [place] VLDL CHOLESTEROL, NF 19 mg/dL Normal <30 [facility] Comment on above: Order Comment: Speci men Type: BLOOD SPECIMENOrdering Facility: External Submitter Address: , , Performed By: #### L IPMADIE, 3015-12 ####[facility] [id number] [place] [address] [place] TSH SerPl-aCncon 04-27-2023 TSH Qn 5.000 m[IU]/L High 0.270-4.200 [facility] Comment on above: Order Comment: Speci men Type: BLOOD SPECIMENOrdering Facility: External Submitter Address: , , Performed By: #### L ANGELINA, 3016-3 ####[facility] [id number] [facility] [id number] [place] [address] [facility] OF [facility] CNCOon 04-11-2023 CNCO Letter Text Normal [facility] CNPNon 03-02-2023 CNPN Telephone (REFAIR) -------- HOANG WHITE ([id number]) 1975 M Date Time Provider Department 03/02/23 MARY SOLORIO During your visit today, we recorded the following information about you: Catalina Muhammad 03/02/2023 2:00 PM Signed IRB # [id number] Tight perioperative blood pressure management to reduce serious cardiovascular, renal, and cognitive complications: The GUARDIAN trial PI: Mary Solorio MD, LUCIA, FASA. Outcomes Research Department. Anesthesia Brilliant. [facility]. This is a research study note. Patient assessments recorded here should not guide either clinical care or clinical decision-making. I called the patient, Hoang White, today regarding follow-up for the study IRB [id number] Tight Perioperative Blood pressure Management to Reduce Serious Cardiovascular, renal, and Cognitive Complications (GUARDIAN) Trial. The patient refused to answer any questions. Catalina Muhammad Research Review Appraiser Outcomes Research [facility] Allergies As of Date: 03/02/2023 (No Known [...] Encounter Status:Closed by CATALINA MUHAMMAD on 03/02/23 [facility] 03-01-2023 CNPN Telephone (REFAIR) -------- HOANG WHITE ([id number]) 1975 M Date Time Provider Department 03/01/23 MARY SOLORIO During your visit today, we recorded the following information about you: Catalina Muhammad 03/01/2023 2:53 PM Signed IRB # [id number] Tight perioperative blood pressure management to reduce serious cardiovascular, renal, and cognitive complications: The GUARDIAN trial PI: Mary Solorio MD, LUCIA, FASA. Outcomes Research Department. Anesthesia Brilliant. [facility]. This is a research study note. Patient assessments recorded here should not guide either clinical care or clinical decision-making. Hoang White was unavailable at the listed phone number. A voice message was left. We will attempt to contact the patient again at a later date. Catalina Muhammad Research Review Appraiser Outcomes Research [facility] Allergies As of Date: 03/01/2023 (No [...] Encounter Status:Closed by CATALINA MUHAMMAD on 03/01/23 [facility] Redd 02-28-2023 AMY Telephone (REFAIR) -------- HOANG WHITE ([id number]) 1975 M Date Time Provider Department 02/28/23 MARY SOLORIO During your visit today, we recorded the following information about you: Catalina Jb 02/28/2023 4:14 PM Signed IRB # [id number] Tight perioperative blood pressure management to reduce serious cardiovascular, renal, and cognitive complications: The GUARDIAN trial PI: Mary Solorio MD, LUCIA, FASA. Outcomes Research Department. Anesthesia Brilliant. [facility]. This is a research study note. Patient assessments recorded here should not guide either clinical care or clinical decision-making. Hoang White was unavailable at the listed phone number. A voice message was left. We will attempt to contact the patient again at a later date. Catalina Muhammad Research Review Appraiser Outcomes Research [facility] Allergies As of Date: 02/28/2023 (No [...] unspecified [E03.9] 12/02/2021 DVT (deep venous thrombosis) ([facility]) [I82.409] 10/28/2022 Attention to ileostomy ([facility]) [Z43.2] 02/20/2023 Encounter Status:Closed by CATALINA MUHAMMAD on 02/28/23 [facility] CNPN Telephone (PODCCP) -------- HOANG WHITE ([id number]) 1975 M Date Time Provider Department 02/28/23 KARIME JOYNER During your visit today, we recorded the following information about you: Karime Joyner RN 02/28/2023 11:35 AM Signed PATIENT INFORMATION Record ID: [id number] Patient Name: [facility]: [place] Brilliant: Digestive Disease AND Surgery Brilliant Attending: Ana Enriquez Center: Colorectal Surgery INSTRUCTIONS Continue with script and ensure patient has appropriate number for [facility] or Appointment Center according to discharging physician?s specialty and location at end of call All Clear SURVEY INFORMATION Medical/Nurse Review Appraiser: Karime Joyner 1. Your discharge instructions are [...] Encounter Status:Closed by KARIME JOYNER on 02/28/23 [facility] 02-27-2023 CNPN Telephone (PODCCP) -------- HOANG WHITE ([id number]) 1975 M Date Time Provider Department 02/27/23 [...] Encounter Status:Closed by KARIME JOYNER on 02/27/23 [facility] Redd 02-24-2023 TAHIRA Telephone (HEMASA) -------- HOANG WHITE ([id number]) 1975 M Date Time Provider Department 02/24/23 OSCAR GONZALEZ During your visit today, we recorded the following information about you: Ava Lewis 02/24/2023 3:56 PM Signed Pt called and [...] good. He is willing to see an spooler operator automatic for this. Ava Gonzalez MD 02/24/2023 5:04 PM Signed I would recommed that he sees Dr. Zoe Baum, SHEMAR 02/27/2023 9:37 AM Signed Pt is aware [...] Encounter Status:Closed by [facility]UMAR BAUM [facility] HNO ID: [id number] Author: Bouchra Thompson APRN.CONCRETE PIPE MACHINE OPERATOR Service: Colorectal Author Type: Nurse Practitioner [...] exam i (more content not included)... Normal [facility] NURSING PROGon 02-22-2023 NURSING PROG HNO ID: [id number] Author: Krystina Tanner, RN Service: Nursing Author Type: Registered Nurse Type: Nursing Progress Note Filed: 02/22/2023 5:49 AM Note Text: 2195: Patient has had 400 mL of bloody BMs since start of shift at 1930. Entereg held due to frequent bowel movements. residential substance abuse counselor paged. residential substance abuse counselor on floor to see patient. Per Dr. Filemon bush to monitor for now. CBC done this evening without much change from previous. Next CBC scheduled for tomorrow at 2200. 0500: Pt now having brown, liquid bowel movements. Normal [facility] Basic metabolic 2000 panelon 02-21-2023 Anion gap [Moles/Vol] 11 mmol/L Normal 9-18 [facility] Comment on above: Order Comment: Speci men Type: BLOOD SPECIMEN Ordering Facility: [facility] Address: [address] [place] [id number] Performed By: #### 2 4321-2 #### [facility] CLIA [id number] [address] [place] [address] [place] Calcium [Mass/Vol] 9.3 mg/dL Normal 8.5-10.2 [facility] Comment on above: Order Comment: Speci men Type: BLOOD SPECIMEN Ordering Facility: [facility] Address: [address] [address] Performed By: #### 2 4321-2 #### [facility] CLIA [id number] [address] [place] [address] [place] Chloride [Moles/Vol] 106 mmol/L High 97-105 [facility] Comment on above: Order Comment: Speci men Type: BLOOD SPECIMEN Ordering Facility: [facility] Address: [address] [place] [address] Performed By: #### 2 4321-2 #### [facility] CLIA [id number] [address] [place] [address] [place] CO2 [Moles/Vol] 24 mmol/L Normal 22-30 [facility] Comment on above: Order Comment: Speci men Type: BLOOD SPECIMEN Ordering Facility: [facility] Address: [address] [place] [address] Performed By: #### 2 4321-2 #### [facility] CLIA [id number] [address] [place] [address] [place] Creatinine [Mass/Vol] 0.89 mg/dL Normal 0.73-1.22 [facility] Comment on above: Order Comment: Speci men Type: BLOOD SPECIMEN Ordering Facility: [facility] Address: [address] [place] [address] Performed By: #### 2 4321-2 #### [facility] CLIA [id number] [address] [place] [address] OF [place] ESTIMATED GLOMERULAR FILTRATION RATE 105 mL/min/1.73m??? Normal >=60 [facility] Comment on above: Order Comment: Speci men Type: BLOOD SPECIMEN Ordering Facility: [facility] Address: [address] [place] [address] Result Comment: Tanya mated Glomerular Filtration Rate [...] GFR. Performed By: #### 2 4321-2 #### [facility] CLIA [id number] [address] [place] [address] [place] Glucose [Mass/Vol] 96 mg/dL Normal 74-99 [facility] Comment on above: Order Comment: Gerry ibrahim Type: BLOOD SPECIMEN Ordering Facility: [facility] Address: [address] [address] Result Comment: The [place] [employer] (ADA) provides guidance for cutoff [...] Standards of Medical Care in Diabetes 2016, [place] [employer]. Diabetes Care. 2016.39(Suppl 1). Performed By: #### 2 4321-2 #### [facility] CLIA [id number] [place] [address] [place] Potassium [Moles/Vol] 4.2 mmol/L Normal 3.7-5.1 [facility] Comment on above: Order Comment: Gerry ibrahim Type: BLOOD SPECIMEN Ordering Facility: [facility] Address: [address] [phone] Performed By: #### 2 4321-2 #### [facility] CLIA [id number] [address] [place] [address] [place] Sodium [Moles/Vol] 141 mmol/L Normal 136-144 [facility] Comment on above: Order Comment: Speci men Type: BLOOD SPECIMEN Ordering Facility: [facility] Address: [address] [address] Performed By: #### 2 4321-2 #### [facility] CLIA [id number] [address] [place] [address] [place] Urea nitrogen [Mass/Vol] 13 mg/dL Normal 9-24 [facility] Comment on above: Order Comment: Speci men Type: BLOOD SPECIMEN Ordering Facility: [facility] Address: [address] [address] Performed By: #### 2 4321-2 #### [facility] CLIA [id number] [address] [place] [address] [place] Anion gap [Moles/Vol] 11 mmol/L Normal 9-18 [facility] Comment on above: Order Comment: Speci men Type: BLOOD SPECIMEN Ordering Facility: [facility] Address: [address] [address] Performed By: #### 2 4321-2 #### [facility] CLIA [id number] [address] [place] [address] [place] Calcium [Mass/Vol] 9.1 mg/dL Normal 8.5-10.2 [facility] Comment on above: Order Comment: Speci men Type: BLOOD SPECIMEN Ordering Facility: [facility] Address: [address] [place] [address] Performed By: #### 2 4321-2 #### [facility] CLIA [id number] [address] [place] [address] [place] Chloride [Moles/Vol] 104 mmol/L Normal 97-105 [facility] Comment on above: Order Comment: Speci men Type: BLOOD SPECIMEN Ordering Facility: [facility] Address: [address] [place] [address] Performed By: #### 2 4321-2 #### [facility] CLIA [id number] [address] [place] [address] [place] CO2 [Moles/Vol] 24 mmol/L Normal 22-30 [facility] Comment on above: Order Comment: Gerry alexandria Type: BLOOD SPECIMEN Ordering Facility: [facility] Address: [address] [address] Performed By: #### 2 4321-2 #### [facility] CLIA [id number] STATES OF [facility] Creatinine [Mass/Vol] 0.71 mg/dL Low 0.73-1.22 [facility] Comment on above: Order Comment: Gerry men Type: BLOOD SPECIMEN Ordering Facility: [facility] Address: [address] [address] Performed By: #### 2 4321-2 #### [facility] CLIA [id number] OF [facility] ESTIMATED GLOMERULAR FILTRATION RATE 112 mL/min/1.73m??? Normal >=60 [facility] Comment on above: Order Comment: Gerry alexandria Type: BLOOD SPECIMEN Ordering Facility: [facility] Address: [address] [address] Result Comment: Tanya mated Glomerular Filtration Rate [...] GFR. Performed By: #### 2 4321-2 #### [facility] CLIA [id number] [place] [address] [place] Glucose [Mass/Vol] 132 mg/dL High 74-99 [facility] Comment on above: Order Comment: Luz Elenayvette ibrahim Type: BLOOD SPECIMEN Ordering Facility: [facility] Address: [address] [address] Result Comment: The [place] [employer] (ADA) provides guidance for cutoff [...] Standards of Medical Care in Diabetes 2016, [place] [employer]. Diabetes Care. 2016.39(Suppl 1). Performed By: #### 2 4321-2 #### [facility] CLIA [id number] [address] [place] [address] [place] Potassium [Moles/Vol] 4.1 mmol/L Normal 3.7-5.1 [facility] Comment on above: Order Comment: Gerry ibrahim Type: BLOOD SPECIMEN Ordering Facility: [facility] Address: [address] [place] [address] Performed By: #### 2 4321-2 #### [facility] CLIA [id number] [address] [place] [address] [place] Sodium [Moles/Vol] 139 mmol/L Normal 136-144 [facility] Comment on above: Order Comment: Gerry ibrahim Type: BLOOD SPECIMEN Ordering Facility: [facility] Address: [address] [place] [address] Performed By: #### 2 4321-2 #### [facility] CLIA [id number] [address] [place] [address] [place] [facility] Urea nitrogen [Mass/Vol] 13 mg/dL Normal 9-24 [facility] Comment on above: Order Comment: Luz Elenai men Type: BLOOD SPECIMEN Ordering Facility: [facility] Address: [address] [place] [address] Performed By: #### 2 4321-2 #### [facility] CLIA [id number] [address] [place] [address] [place] CBC W Auto Differential pane l (Bld)on 02-21-2023 Basophils (Bld) [#/Vol] 0.04 10*3/uL Normal <0.11 [facility] Comment on above: Order Comment: Luz Elenai men Type: BLOOD SPECIMENOrdering Facility: [facility] Address: [address] [address] Performed By: #### 5 7021-8 ####[facility]ORYCLIA [id number] [address] [place] Basophils/100 WBC (Bld) 0.5 % Normal [facility] Comment on above: Order Comment: Speci men Type: BLOOD SPECIMENOrdering Facility: [facility] Address: [address] [place] [address] Performed By: #### 5 7021-8 ####[facility]ATORYCLIA [id number] [address] [place] Differential cell count method Nom (Bld) Auto Normal [facility] Comment on above: Order Comment: Speci men Type: BLOOD SPECIMENOrdering Facility: [facility] Address: [address] [place] [address] Performed By: #### 5 7021-8 ####[facility] [id number] [place] [address] [place] Eosinophils (Bld) [#/Vol] 0.16 10*3/uL Normal <0.46 [facility] Comment on above: Order Comment: Speci men Type: BLOOD SPECIMENOrdering Facility: [facility] Address: [address] [place] [address] Performed By: #### 5 7021-8 ####[facility] [id number] [address] [place] Eosinophils/100 WBC (Bld) 2.2 % Normal [facility] Comment on above: Order Comment: Speci men Type: BLOOD SPECIMENOrdering Facility: [facility] Address: [address] [place] [address] Performed By: #### 5 7021-8 ####[facility]ATORYCLIA [id number] [address] [place] Erythrocyte distribution width (RBC) [Ratio] 13.1 % Normal 11.5-15.0 [facility] Comment on above: Order Comment: Speci men Type: BLOOD SPECIMENOrdering Facility: [facility] Address: [address] [address] Performed By: #### 5 7021-8 ####[facility]ATORYCLIA [id number] [place] [address] [place] Hematocrit (Bld) [Volume fraction] 32.2 % Low 39.0-51.0 [facility] Comment on above: Order Comment: Speci men Type: BLOOD SPECIMENOrdering Facility: [facility] Address: [address] [address] Performed By: #### 5 7021-8 ####[facility]ATORYCLIA [id number] [place] [address] [place] Hemoglobin (Bld) [Mass/Vol] 11.2 g/dL Low 13.0-17.0 [facility] Comment on above: Order Comment: Speci men Type: BLOOD SPECIMENOrdering Facility: [facility] Address: [address] [address] Performed By: #### 5 7021-8 ####[facility]ATORYCLIA [id number] [place] [address] [place] Immature granulocytes (Bld) [#/Vol] 0.05 10*3/uL Normal <0.10 [facility] Comment on above: Order Comment: Speci men Type: BLOOD SPECIMENOrdering Facility: [facility] Address: [address] [address] Performed By: #### 5 7021-8 ####[facility] [id number] [place] [address] [place] Immature granulocytes/100 WBC (Bld) 0.7 % Normal [facility] Comment on above: Order Comment: Speci men Type: BLOOD SPECIMENOrdering Facility: [facility] Address: [address] [address] Performed By: #### 5 7021-8 ####[facility]ATORYCLIA [id number] [place] [address] [place] Lymphocytes (Bld) [#/Vol] 0.91 10*3/uL Low 1.00-4.00 [facility] Comment on above: Order Comment: Speci men Type: BLOOD SPECIMENOrdering Facility: [facility] Address: [address] [place] [address] Performed By: #### 5 7021-8 ####[facility]ATORYCLIA [id number] [address] STATES [facility] Lymphocytes/100 WBC (Bld) 12.3 % Normal [facility] Comment on above: Order Comment: Speci men Type: BLOOD SPECIMENOrdering Facility: [facility] Address: [address] [address] Performed By: #### 5 7021-8 ####[facility]ATORYCLIA [id number] [address] [place] MCH (RBC) [Entitic mass] 31.3 pg Normal 26.0-34.0 [facility] Comment on above: Order Comment: Speci men Type: BLOOD SPECIMENOrdering Facility: [facility] Address: [address] [place] [address] Performed By: #### 5 7021-8 ####[facility]ATORYCLIA [id number] [address] [place] MCHC (RBC) [Mass/Vol] 34.8 g/dL Normal 30.5-36.0 [facility] Comment on above: Order Comment: Speci men Type: BLOOD SPECIMENOrdering Facility: [facility] Address: [address] [place] [address] Performed By: #### 5 7021-8 ####[facility]ATORYCLIA [id number] [address] [place] MCV (RBC) [Entitic vol] 89.9 fL Normal 80.0-100.0 [facility] Comment on above: Order Comment: Speci men Type: BLOOD SPECIMENOrdering Facility: [facility] Address: [address] [place] [address] Performed By: #### 5 7021-8 ####[facility]ORATORYCLIA [id number] [place] [address] [place] Monocytes (Bld) [#/Vol] 0.59 10*3/uL Normal <0.87 [facility] Comment on above: Order Comment: Speci men Type: BLOOD SPECIMENOrdering Facility: [facility] Address: [address] [address] Performed By: #### 5 7021-8 ####[facility] [id number] [place] [address] [place] Monocytes/100 WBC (Bld) 8.0 % Normal [facility] Comment on above: Order Comment: Speci men Type: BLOOD SPECIMENOrdering Facility: [facility] Address: [address] [address] Performed By: #### 5 7021-8 ####[facility]CLIA [id number] [place] [address] [place] Neutrophils (Bld) [#/Vol] 5.67 10*3/uL Normal 1.45-7.50 [facility] Comment on above: Order Comment: Speci men Type: BLOOD SPECIMENOrdering Facility: [facility] Address: [address] [address] Performed By: #### 5 7021-8 ####[facility] [id number] [address] [place] Neutrophils/100 WBC (Bld) 76.3 % Normal [facility] Comment on above: Order Comment: Speci men Type: BLOOD SPECIMENOrdering Facility: [facility] Address: [address] [address] Performed By: #### 5 7021-8 ####[facility]ORYCLIA [id number] [place] [address] [place] Nucleated RBC (Bld) [#/Vol] 10*3/uL Normal <0.01 [facility] Comment on above: Order Comment: Speci men Type: BLOOD SPECIMENOrdering Facility: [facility] Address: [address] [address] Performed By: #### 5 7021-8 ####[facility]ORYCLIA [id number] [address] [address] [place] Nucleated RBC/100 WBC (Bld) [Ratio] 0.0 /100 WBC Normal [facility] Comment on above: Order Comment: Speci men Type: BLOOD SPECIMENOrdering Facility: [facility] Address: [address] [place] [address] Performed By: #### 5 7021-8 ####[facility]ATORYCLIA [id number] [place] [address] [place] Platelet mean volume (Bld) [Entitic vol] 10.3 fL Normal 9.0-12.7 [facility] Comment on above: Order Comment: Speci men Type: BLOOD SPECIMENOrdering Facility: [facility] Address: [address] [place] [address] Performed By: #### 5 7021-8 ####[facility]ATORYCLIA [id number] [place] [address] [place] Platelets (Bld) [#/Vol] 167 10*3/uL Normal 150-400 [facility] Comment on above: Order Comment: Speci men Type: BLOOD SPECIMENOrdering Facility: [facility] Address: [address] [place] [address] Performed By: #### 5 7021-8 ####[facility]ATORYCLIA [id number] [place] [address] [place] RBC (Bld) [#/Vol] 3.58 10*6/uL Low 4.20-6.00 [facility] Comment on above: Order Comment: Speci men Type: BLOOD SPECIMENOrdering Facility: [facility] Address: [address] [place] [address] Performed By: #### 5 7021-8 ####[facility]ATORYCLIA [id number] [place] [address] [place] WBC (Bld) [#/Vol] 7.42 10*3/uL Normal 3.70-11.00 [facility] Comment on above: Order Comment: Speci men Type: BLOOD SPECIMENOrdering Facility: [facility] Address: [address] [address] Performed By: #### 5 7021-8 ####[facility]ATORYCLIA [id number] [place] [address] [place] Basophils (Bld) [#/Vol] 10*3/uL Normal <0.11 [facility] Comment on above: Order Comment: Speci men Type: BLOOD SPECIMENOrdering Facility: [facility] Address: [address] [address] Performed By: #### 5 7021-8 ####[facility]ORYCLIA [id number] [place] [address] [place] Basophils/100 WBC (Bld) 0.2 % Normal [facility] Comment on above: Order Comment: Speci men Type: BLOOD SPECIMENOrdering Facility: [facility] Address: [address] [place] [address] Performed By: #### 5 7021-8 ####[facility] [id number] [place] [address] [place] Differential cell count method Nom (Bld) Auto Normal [facility] Comment on above: Order Comment: Speci men Type: BLOOD SPECIMENOrdering Facility: [facility] Address: [address] [place] [address] Performed By: #### 5 7021-8 ####[facility] [id number] [place] [address] [place] Eosinophils (Bld) [#/Vol] 10*3/uL Normal <0.46 [facility] Comment on above: Order Comment: Speci men Type: BLOOD SPECIMENOrdering Facility: [facility] Address: [address] [address] Performed By: #### 5 7021-8 ####[facility]ORYCLIA [id number] [place] [address] [place] Eosinophils/100 WBC (Bld) 0.1 % Normal [facility] Comment on above: Order Comment: Speci men Type: BLOOD SPECIMENOrdering Facility: [facility] Address: [address] [address] Performed By: #### 5 7021-8 ####[facility]ORYCLIA [id number] [place] [address] [place] Erythrocyte distribution width (RBC) [Ratio] 13.1 % Normal 11.5-15.0 [facility] Comment on above: Order Comment: Speci men Type: BLOOD SPECIMENOrdering Facility: [facility] Address: [address] [address] Performed By: #### 5 7021-8 ####[facility]ORYCLIA [id number] [place] [address] [place] Hematocrit (Bld) [Volume fraction] 35.6 % Low 39.0-51.0 [facility] Comment on above: Order Comment: Speci men Type: BLOOD SPECIMENOrdering Facility: [facility] Address: [address] [address] Performed By: #### 5 7021-8 ####[facility]ORYCLIA [id number] [place] [address] [place] Hemoglobin (Bld) [Mass/Vol] 12.2 g/dL Low 13.0-17.0 [facility] Comment on above: Order Comment: Speci men Type: BLOOD SPECIMENOrdering Facility: [facility] Address: [address] [address] Performed By: #### 5 7021-8 ####[facility]ATORYCLIA [id number] [place] [address] [place] Immature granulocytes (Bld) [#/Vol] 0.04 10*3/uL Normal <0.10 [facility] Comment on above: Order Comment: Speci men Type: BLOOD SPECIMENOrdering Facility: [facility] Address: [address] [address] Performed By: #### 5 7021-8 ####[facility]ATORYCLIA [id number] [address] [place] Immature granulocytes/100 WBC (Bld) 0.4 % Normal [facility] Comment on above: Order Comment: Speci men Type: BLOOD SPECIMENOrdering Facility: [facility] Address: [address] [address] Performed By: #### 5 7021-8 ####[facility]CLIA [id number] [address] [place] Lymphocytes (Bld) [#/Vol] 0.35 10*3/uL Low 1.00-4.00 [facility] Comment on above: Order Comment: Speci men Type: BLOOD SPECIMENOrdering Facility: [facility] Address: [address] [address] Performed By: #### 5 7021-8 ####[facility]CLIA [id number] [address] Lymphocytes/100 WBC (Bld) 3.7 % Normal [facility] Comment on above: Order Comment: Speci men Type: BLOOD SPECIMENOrdering Facility: [facility] Address: [address] [address] Performed By: #### 5 7021-8 ####[facility]ATORYCLIA [id number] [address] [place] MCH (RBC) [Entitic mass] 31.0 pg Normal 26.0-34.0 [facility] Comment on above: Order Comment: Speci men Type: BLOOD SPECIMENOrdering Facility: [facility] Address: [address] [place] [address] Performed By: #### 5 7021-8 ####[facility]CLIA [id number] [address] [place] MCHC (RBC) [Mass/Vol] 34.3 g/dL Normal 30.5-36.0 [facility] Comment on above: Order Comment: Speci men Type: BLOOD SPECIMENOrdering Facility: [facility] Address: [address] [place] [address] Performed By: #### 5 7021-8 ####[facility]ATORYCLIA [id number] [address] [place] MCV (RBC) [Entitic vol] 90.6 fL Normal 80.0-100.0 [facility] Comment on above: Order Comment: Speci men Type: BLOOD SPECIMENOrdering Facility: [facility] Address: [address] [address] Performed By: #### 5 7021-8 ####[facility]CLIA [id number] [place] [id number] [place] Monocytes (Bld) [#/Vol] 0.29 10*3/uL Normal <0.87 [facility] Comment on above: Order Comment: Speci men Type: BLOOD SPECIMENOrdering Facility: [facility] Address: [address] [address] Performed By: #### 5 7021-8 ####[facility]ATORYCLIA [id number] [place] [address] [place] Monocytes/100 WBC (Bld) 3.0 % Normal [facility] Comment on above: Order Comment: Speci men Type: BLOOD SPECIMENOrdering Facility: [facility] Address: [address] [place] [address] Performed By: #### 5 7021-8 ####[facility]ATORYCLIA [id number] [place] [address] [place] Neutrophils (Bld) [#/Vol] 8.82 10*3/uL High 1.45-7.50 [facility] Comment on above: Order Comment: Speci men Type: BLOOD SPECIMENOrdering Facility: [facility] Address: [address] [place] [address] Performed By: #### 5 7021-8 ####[facility]ORYCLIA [id number] [place] [id number] [place] Neutrophils/100 WBC (Bld) 92.6 % Normal [facility] Comment on above: Order Comment: Speci men Type: BLOOD SPECIMENOrdering Facility: [facility] Address: [address] [place] [address] Performed By: #### 5 7021-8 ####[facility]ORYCLIA [id number] [place] [address] [place] Nucleated RBC (Bld) [#/Vol] 10*3/uL Normal <0.01 [facility] Comment on above: Order Comment: Speci men Type: BLOOD SPECIMENOrdering Facility: [facility] Address: [address] [address] Performed By: #### 5 7021-8 ####[facility]IA [id number] [place] [address] [place] Nucleated RBC/100 WBC (Bld) [Ratio] 0.0 /100 WBC Normal [facility] Comment on above: Order Comment: Speci men Type: BLOOD SPECIMENOrdering Facility: [facility] Address: [address] [place] [address] Performed By: #### 5 7021-8 ####[facility]ORATORYCLIA [id number] [place] [address] [place] Platelet mean volume (Bld) [Entitic vol] 9.7 fL Normal 9.0-12.7 [facility] Comment on above: Order Comment: Speci men Type: BLOOD SPECIMENOrdering Facility: [facility] Address: [address] [address] Performed By: #### 5 7021-8 ####[facility]ORYCLIA [id number] [place] [address] [place] Platelets (Bld) [#/Vol] 208 10*3/uL Normal 150-400 [facility] Comment on above: Order Comment: Speci men Type: BLOOD SPECIMENOrdering Facility: [facility] Address: [address] [address] Performed By: #### 5 7021-8 ####[facility]ORYCLIA [id number] [place] [address] [place] RBC (Bld) [#/Vol] 3.93 10*6/uL Low 4.20-6.00 [facility] Comment on above: Order Comment: Speci men Type: BLOOD SPECIMENOrdering Facility: [facility] Address: [address] [address] Performed By: #### 5 7021-8 ####[facility]ORYCLIA [id number] [place] [id number] [place] WBC (Bld) [#/Vol] 9.53 10*3/uL Normal 3.70-11.00 [facility] Comment on above: Order Comment: Speci men Type: BLOOD SPECIMENOrdering Facility: [facility] Address: [address], [place] [address] Performed By: #### 5 7021-8 ####[facility]ATORYCLIA [id number] [place] [id number] [facility] Redd 02-21-2023 TAHIRAN Telephone (HEMASA) -------- HOANG WHITE ([id number]) 1975 M Date Time Provider Department 02/21/23 OSCAR GONZALEZ During your visit today, we recorded the following information about you: Ava Lewis 02/21/2023 1:43 PM Signed Disability paperwork completed and placed in folder to be signed. Ava Lewis 02/22/2023 9:56 AM Signed Paperwork faxed to [employer] @ [phone]. Faxed confirmed. Ava Lewis Allergies As of [...] Status:Closed by AVA LEWIS on 02/22/23 Normal [facility] NURSING PROGon 02-21-2023 NURSING PROG HNO ID: [id number] Author: Lexi Glass RN Service: ? Author Type: Registered Nurse [...] other needs voiced, will continue to monitor. Normal [facility] PT EDon 02-21-2023 PT ED HNO ID: [id number] Author: Millie Lam RD Service: NST-Nutrition Support [...] February 21, 2023 TIME: 12:07 PM PAGER: [facility] ANES POSTPROC EVALon 023 ANES POSTPROC EVAL HNO ID: [id number] Author: Pedro Luis Rome DO Service: Anesthesiology Author Type: Anesthesiologist Type: Anesthesia Postprocedure Evaluation Filed: 02/20/2023 9:15 PM Note Text: POST ANESTHESIA EVALUATION NOTE : 1975 Procedure Summary Date: 02/20/23 Room / Location: [place] [address] / OR Anesthesia Start: 1718 Anesthesia Stop: [...] February 20, 2023 TIME: 9:14 PM CSN: [id number] [facility] ANES PRE-OPon 02-20-2023 ANES PRE-OP HNO ID: [id number] Author: Pedro Luis Rome DO Service: Anesthesiology Author Type: Anesthesiologist Type: Anesthesia Preprocedure Evaluation Filed: 02/20/2023 5:05 PM Note Text: ANESTHESIOLOGY DAY OF SURGERY NOTE : 1975 Procedure Information Date/Time: 02/20/231744 Procedure: CLOSURE ILEOSTOMY (Abdomen) Location: OR07 / [...] and consent discussed: yes. Patient / Responsible [employer] Party agrees to proceed: yes Patient / Surrogate [...] Vitals Value Taken Time BP 130/86 02/20/23 [facility] Pulse 59 02/20/23 1640 Resp 16 02/20/23 [facility] Temp 36.2 ?C (97.2 ?F) 02/20/23 1640 SpO2 100 % 02/20/23 [facility] Facility-Administered Medications as of 02/20/2023 Medication Dose [...] hours of Surgery/Procedu (more content not included)... [facility] BRIEF OP NOTon 02-20-2023 BRIEF OP NOT HNO ID: [id number] Author: Rachael Kirkpatrick MD Service: Colorectal Author Type: Fellow Type: Brief Op Note Filed: 02/20/2023 6:38 PM Note Text: BRIEF OPERATIVE NOTE - COLORECTAL SURGERY Log ID: [id number] Surgery/Procedure Date: 02/20/2023 Incision/Procedure Start Time: 5:53 PM Incision Close/Procedure End Time: 6:32 PM Surgeon(s) and Review Appraiser(s): Surgeon(s) and Role: * Ana Enriquez MD [...] DATE: February 20, 2023 TIME: 6:36 PM [facility] NURSING PROGon 02-20-2023 NURSING PROG HNO ID: [id number] Author: Kristi Henry RN Service: ? Author Type: Registered Nurse Type: Nursing Progress Note Filed: 02/21/2023 2:40 AM Note Text: Transfer Note: Patient transferred into room/unit 306 in stable condition. Actions taken: No futher actions taken at this time. Will continue to monitor and check with patient. [facility] NURSING PROG HNO ID: [id number] Author: Phyllis Claros RN Service: Nursing Author [...] (RECOMMENDATION): None Electronically Signed By: Phyllis Claros [facility] OPERATIVE NOon 02-20-2023 OPERATIVE NO HNO ID: [id number] Author: Ana Enriquez MD Service: Colorectal Author Type: Physician Type: Operative Report Filed: 02/20/2023 6:46 PM Note Text: COLON AND RECTAL SURGERY OPERATIVE REPORT PATIENT NAME: Hoang White ADMISSION DATE: 02/20/2023 LOG ID: [id number] SURGERY/PROCEDURE DATE: 02/20/2023 INCISION/PROCEDURE START TIME: 5:53 PM INCISION CLOSE/PROCEDURE END TIME: 6:32 PM AGE: [age] year old SEX: male SURGEON(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 A htpt-fk-pazh functional end-to-end anastomosis was made with a [...] Surgery Division of Colon and Rectal Surgery [facility] 02-17-2023 [facility] Telephone ([facility]) -------- HOANG WHITE ([id number]) 1975 Date Time Provider Department 02/17/23 ANA ENRIQUEZ [facility] During your visit today, we recorded the following information about you: Nikki Rivera 02/17/2023 11:48 AM Signed Pt called about [facility] paperwork from 01/09/23 to 02/17/23. I left a message with his spouse that he will need to contact his primary so they can fill out the [facility] paperwork. He was given [facility] paperwork for his surgery in October. Allergies As of Date: 02/17/2023 (No Known Allergies) Date Reviewed: 02/09/2023 Reviewed by: Ruba Awad APRN.[facility] - Fully Assessed Reason for Visit: Patient [...] Encounter Status:Closed by NIKKI RIVERA on 02/17/23 [facility] Redd 02-16-2023 [facility] Telephone ([facility]) -------- HOANG WHITE ([id number]) 1975 M Date Time Provider Department 02/16/23 ANA ENRIQUEZ [facility] During your visit today, we recorded the following information about you: Kalen Leos MA 02/16/2023 3:42 PM Signed Employer Forms for Patient/Caregiver Time Off of Work FMLA completed, signed by provider, and returned to below contact. 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 Reason for Visit: FMLA Paperwork [4077] Prescriptions as of 02/16/2023 - naproxen sodium [...] Status:Closed by KALEN LEOS on 02/16/23 Normal [facility] ANTIBODY ID PATIENTon 2022 ANTIBODY IDENTIFIED Detected Normal [facility] Comment on above: Order Comment: Speci men Type: BLOOD SPECIMENOrdering Facility: [facility] Address: [address] [place] [address] Performed By: #### T SCR30, %ALESIA ####CC MAIN BLOOD BANKCLIA [id number] [address] OF [place]#### [id number] ####[facility] BLOOD BANKCLIA [id number] [address] BLOOD BANK COMMENTon 023 BLOOD BANK COMMENT See Comment Normal [facility] Comment on above: Order Comment: Speci men Type: BLOOD SPECIMENOrdering Facility: [facility] Address: [address] [place] [address] Result Comment: See physician's report under antibody interpretation 02/04/2022 Performed By: #### T SCR30, %ALESIA ####CC [facility] BLOOD BANKCLIA [id number] [address] OF [facility]#### [id number] ####[place] BLOOD BANKCLIA [id number] [address] OF [facility] CBC W Auto Differential pane l (Bld)on 02-09-2023 Basophils (Bld) [#/Vol] 0.03 10*3/uL Normal <0.11 [facility] Comment on above: Order Comment: Speci men Type: BLOOD SPECIMENOrdering Facility: [facility] Address: [address] [place] [address] Performed By: #### 5 7021-8 ####[facility] LABCLIA [id number] [address] STATES [facility] Basophils/100 WBC (Bld) 0.5 % Normal [facility] Comment on above: Order Comment: Speci men Type: BLOOD SPECIMENOrdering Facility: [facility] Address: [address] [place] [address] Performed By: #### 5 7021-8 ####[facility] LABCLIA [id number] [address] STATES OF [place] Differential cell count method Nom (Bld) Auto Normal [facility] Comment on above: Order Comment: Speci men Type: BLOOD SPECIMENOrdering Facility: [facility] Address: [address] [place] [address] Performed By: #### 5 7021-8 ####[facility] LABCLIA [id number] [place] [address] [place] Eosinophils (Bld) [#/Vol] 0.06 10*3/uL Normal <0.46 [facility] Comment on above: Order Comment: Speci men Type: BLOOD SPECIMENOrdering Facility: [facility] Address: [address] [place] [address] Performed By: #### 5 7021-8 ####[facility] LABCLIA [id number] [place] [address] [place] Eosinophils/100 WBC (Bld) 0.9 % Normal [facility] Comment on above: Order Comment: Speci men Type: BLOOD SPECIMENOrdering Facility: [facility] Address: [address] [place] [address] Performed By: #### 5 7021-8 ####[facility] LABCLIA [id number] [address] [place] Erythrocyte distribution width (RBC) [Ratio] 12.8 % Normal 11.5-15.0 [facility] Comment on above: Order Comment: Speci men Type: BLOOD SPECIMENOrdering Facility: [facility] Address: [address] [place], [place] [address] Performed By: #### 5 7021-8 ####[facility] LABIA [id number] [place] [address] [place] Hematocrit (Bld) [Volume fraction] 40.3 % Normal 39.0-51.0 [facility] Comment on above: Order Comment: Speci men Type: BLOOD SPECIMENOrdering Facility: [facility] Address: [address] [place], [place] [address] Performed By: #### 5 7021-8 ####[facility] LABCLIA [id number] [place] [address] [place] Hemoglobin (Bld) [Mass/Vol] 13.3 g/dL Normal 13.0-17.0 [facility] Comment on above: Order Comment: Speci men Type: BLOOD SPECIMENOrdering Facility: [facility] Address: [address] Performed By: #### 5 7021-8 ####[facility] LABCLIA [id number] [place] [address] [place] Immature granulocytes (Bld) [#/Vol] 0.03 10*3/uL Normal <0.10 [facility] Comment on above: Order Comment: Speci men Type: BLOOD SPECIMENOrdering Facility: [facility] Address: [address] Performed By: #### 5 7021-8 ####[facility] LABCLIA [id number] [place] [address] [place] Immature granulocytes/100 WBC (Bld) 0.5 % Normal [facility] Comment on above: Order Comment: Speci men Type: BLOOD SPECIMENOrdering Facility: [facility] Address: [address] Performed By: #### 5 7021-8 ####[facility] LABCLIA [id number] [place] [address] [place] Lymphocytes (Bld) [#/Vol] 0.73 10*3/uL Low 1.00-4.00 [facility] Comment on above: Order Comment: Speci men Type: BLOOD SPECIMENOrdering Facility: [facility] Address: [address] Performed By: #### 5 7021-8 ####[facility] LABCLIA [id number] [place] [address] [place] Lymphocytes/100 WBC (Bld) 11.0 % Normal [facility] Comment on above: Order Comment: Speci men Type: BLOOD SPECIMENOrdering Facility: [facility] Address: [address] Performed By: #### 5 7021-8 ####[facility] LABCLIA [id number] [address] STATES OF [facility] MCH (RBC) [Entitic mass] 30.9 pg Normal 26.0-34.0 [facility] Comment on above: Order Comment: Speci men Type: BLOOD SPECIMENOrdering Facility: [facility] Address: [address] [place] [address] Performed By: #### 5 7021-8 ####[facility] [id number] [address] STATES OF [facility] MCHC (RBC) [Mass/Vol] 33.0 g/dL Normal 30.5-36.0 [facility] Comment on above: Order Comment: Speci men Type: BLOOD SPECIMENOrdering Facility: [facility] Address: [address] [place] [address] Performed By: #### 5 7021-8 ####[facility] [id number] [address] STATES OF [facility] MCV (RBC) [Entitic vol] 93.5 fL Normal 80.0-100.0 [facility] Comment on above: Order Comment: Speci men Type: BLOOD SPECIMENOrdering Facility: [facility] Address: [address] [place] [address] Performed By: #### 5 7021-8 ####[facility] [id number] [address] STATES [place] Monocytes (Bld) [#/Vol] 0.39 10*3/uL Normal <0.87 [facility] Comment on above: Order Comment: Speci men Type: BLOOD SPECIMENOrdering Facility: [facility] Address: [address] [place] [address] Performed By: #### 5 7021-8 ####[facility] [id number] [address] Monocytes/100 WBC (Bld) 5.9 % Normal [facility] Comment on above: Order Comment: Speci men Type: BLOOD SPECIMENOrdering Facility: [facility] Address: [address] Performed By: #### 5 7021-8 ####[facility] LABCLIA [id number] [place] [address] [place] Neutrophils (Bld) [#/Vol] 5.37 10*3/uL Normal 1.45-7.50 [facility] Comment on above: Order Comment: Speci men Type: BLOOD SPECIMENOrdering Facility: [facility] Address: [address] Performed By: #### 5 7021-8 ####[facility] LABCLIA [id number] [place] [address] [place] Neutrophils/100 WBC (Bld) 81.2 % Normal [facility] Comment on above: Order Comment: Speci men Type: BLOOD SPECIMENOrdering Facility: [facility] Address: [address] Performed By: #### 5 7021-8 ####[facility] LABCLIA [id number] [place] [address] [place] Nucleated RBC (Bld) [#/Vol] 10*3/uL Normal <0.01 [facility] Comment on above: Order Comment: Speci men Type: BLOOD SPECIMENOrdering Facility: [facility] Address: [address] Performed By: #### 5 7021-8 ####[facility] LABCLIA [id number] [place] [address] [place] Nucleated RBC/100 WBC (Bld) [Ratio] 0.0 /100 WBC Normal [facility] Comment on above: Order Comment: Speci men Type: BLOOD SPECIMENOrdering Facility: [facility] Address: [address] Performed By: #### 5 7021-8 ####[facility] LABCLIA [id number] [place] [address] [place] Platelet mean volume (Bld) [Entitic vol] 10.6 fL Normal 9.0-12.7 [facility] Comment on above: Order Comment: Speci men Type: BLOOD SPECIMENOrdering Facility: [facility] Address: [address] [place] [address] Performed By: #### 5 7021-8 ####[facility] LABIA [id number] [place] [address] [place] Platelets (Bld) [#/Vol] 214 10*3/uL Normal 150-400 [facility] Comment on above: Order Comment: Speci men Type: BLOOD SPECIMENOrdering Facility: [facility] Address: [address] [place], [place] [address] Performed By: #### 5 7021-8 ####[facility] LABIA [id number] [place] [address] [place] RBC (Bld) [#/Vol] 4.31 10*6/uL Normal 4.20-6.00 [facility] Comment on above: Order Comment: Speci men Type: BLOOD SPECIMENOrdering Facility: [facility] Address: [address] [place] [address] Performed By: #### 5 7021-8 ####[facility] LABIA [id number] [place] [address] [place] WBC (Bld) [#/Vol] 6.61 10*3/uL Normal 3.70-11.00 [facility] Comment on above: Order Comment: Speci men Type: BLOOD SPECIMENOrdering Facility: [facility] Address: [address] [place] [address] Performed By: #### 5 7021-8 ####[facility] LABCL[facility] [id number] [place] [address] [place] Comprehensive metabolic 2000 panelon 02-09-2023 Albumin [Mass/Vol] 4.2 g/dL Normal 3.9-4.9 [facility] Comment on above: Order Comment: Speci men Type: BLOOD SPECIMENOrdering Facility: [facility] Address: [address] [place] [address] Performed By: #### 2 4323-8 ####[facility] LABCL[facility] [id number] [place] [address] [place] ALP [Catalytic activity/Vol] 96 U/L Normal 38-113 [facility] Comment on above: Order Comment: Speci men Type: BLOOD SPECIMENOrdering Facility: [facility] Address: [address] [place] [address] Performed By: #### 2 4323-8 ####[facility] LABCL[facility] [id number] [address] [place] ALT [Catalytic activity/Vol] 30 U/L Normal 10-54 [facility] Comment on above: Order Comment: Speci men Type: BLOOD SPECIMENOrdering Facility: [facility] Address: [address] [place] [address] Performed By: #### 2 4323-8 ####[facility] LABCLIA [id number] [place] [address] [place] Anion gap [Moles/Vol] 11 mmol/L Normal 9-18 [facility] Comment on above: Order Comment: Speci men Type: BLOOD SPECIMENOrdering Facility: [facility] Address: [address] [place] [address] Performed By: #### 2 4323-8 ####[facility] LABCLIA [id number] [place] [address] [place] AST [Catalytic activity/Vol] 26 U/L Normal 14-40 [facility] Comment on above: Order Comment: Speci men Type: BLOOD SPECIMENOrdering Facility: [facility] Address: [address] Performed By: #### 2 4323-8 ####[facility] LABCL[facility] [id number] [place] [address] [place] Bilirubin [Mass/Vol] 0.6 mg/dL Normal 0.2-1.3 [facility] Comment on above: Order Comment: Speci men Type: BLOOD SPECIMENOrdering Facility: [facility] Address: [address] Performed By: #### 2 4323-8 ####[facility] LABCL[facility] [id number] [place] [address] [place] Calcium [Mass/Vol] 9.5 mg/dL Normal 8.5-10.2 [facility] Comment on above: Order Comment: Speci men Type: BLOOD SPECIMENOrdering Facility: [facility] Address: [address] Performed By: #### 2 4323-8 ####[facility] LABCLIA [id number] [place] [address] [place] Chloride [Moles/Vol] 106 mmol/L High 97-105 [facility] Comment on above: Order Comment: Speci men Type: BLOOD SPECIMENOrdering Facility: [facility] Address: [address] Performed By: #### 2 4323-8 ####[facility] LABCL[facility] [id number] [place] [address] [place] CO2 [Moles/Vol] 23 mmol/L Normal 22-30 [facility] Comment on above: Order Comment: Speci men Type: BLOOD SPECIMENOrdering Facility: [facility] Address: [address] Performed By: #### 2 4323-8 ####[facility] LABCL[facility] [id number] [address] STATES OF [facility] Creatinine [Mass/Vol] 0.88 mg/dL Normal 0.73-1.22 [facility] Comment on above: Order Comment: Gerry ibrahim Type: BLOOD SPECIMENOrdering Facility: [facility] Address: [address] [place] [address] Performed By: #### 2 4323-8 ####[facility] LABIA [id number] [address] ESTIMATED GLOMERULAR FILTRATION RATE 105 mL/min/1.73m??? Normal >=60 [facility] Comment on above: Order Comment: Gerry ibrahim Type: BLOOD SPECIMENOrdering Facility: [facility] Address: [address] [place] [address] Result Comment: Tanya mated Glomerular Filtration Rate [...] actual GFR. Performed By: #### 2 4323-8 ####[facility] LABCL[facility] [id number] [address] STATES OF [facility] Glucose [Mass/Vol] 93 mg/dL Normal 74-99 [facility] Comment on above: Order Comment: Gerry ibrahim Type: BLOOD SPECIMENOrdering Facility: [facility] Address: [address] [place] [address] Result Comment: The [place] [employer] (ADA) provides guidance for cutoff [...] Standards of Medical Care in Diabetes 2016, [place] [employer]. Diabetes Care. 2016.39(Suppl 1). Performed By: #### 2 4323-8 ####[facility]CL[facility] [id number] [place] [address] [place] Potassium [Moles/Vol] 4.2 mmol/L Normal 3.7-5.1 [facility] Comment on above: Order Comment: Speci men Type: BLOOD SPECIMENOrdering Facility: [facility] Address: [address] [place] [address] Performed By: #### 2 4323-8 ####[facility] [id number] [place] [address] [place] Protein [Mass/Vol] 7.1 g/dL Normal 6.3-8.0 [facility] Comment on above: Order Comment: Speci men Type: BLOOD SPECIMENOrdering Facility: [facility] Address: [address] [place] [address] Performed By: #### 2 4323-8 ####[facility] [id number] [place] [address] [place] Sodium [Moles/Vol] 140 mmol/L Normal 136-144 [facility] Comment on above: Order Comment: Speci men Type: BLOOD SPECIMENOrdering Facility: [facility] Address: [address] Performed By: #### 2 4323-8 ####[facility]CL[facility] [id number] [place] [address] [place] Urea nitrogen [Mass/Vol] 17 mg/dL Normal 9-24 [facility] Comment on above: Order Comment: Speci men Type: BLOOD SPECIMENOrdering Facility: [facility] Address: [address] Performed By: #### 2 4323-8 ####[facility] [id number] [address] STATES OF [facility] [id number] 02-09-2023 ECG01 Ventricular Rate : 7 1 BPM Atrial Rate : 71 BPM P-R Interval : 172 ms QRS Duration : 124 ms Q-T Interval : 400 ms QTC Calculation(Bazett) : 434 ms Calculated P Oakwood : 60 degrees Calculated R Oakwood : 127 degrees Calculated T Oakwood : 9 degrees NORMAL SINUS RHYTHM RIGHT AXIS DEVIATION NONSPECIFIC INTRAVENTRICULAR CONDUCTION DELAY ABNORMAL ECG Confirmed by JOBY UMANA MD ([id number]) on 02/10/2023 1:15:21 PM NAME : HOANG WHITE PID : [id number] : 1975 Gender : Male Race : ORD : Procedure Date : Feb 09 2023 13:57:26 Edit Date : Feb 10 2023 13:15:23 Diagnosis: NORMAL SINUS RHYTHM RIGHT AXIS DEVIATION NONSPECIFIC INTRAVENTRICULAR CONDUCTION DELAY ABNORMAL ECG Confirmed by JOBY UAMNA MD ([id number]) on 02/10/2023 1:15:21 PM Test Reason : SURGERY Location : 545 : [facility] Overread By : JOBY UMANA MD Edited By : JOBY UMANA MD Referred By : ANA ENRIQUEZ Acquired by : Shaheed CARUSO [facility] HISTORY PHYSICALon HISTORY PHYSICAL HNO ID: [id number] Author: Ruba Awad APRN.CONCRETE PIPE MACHINE OPERATOR Service: ? Author Type: Nurse Practitioner [...] SURGICAL HISTORY OF 2020 teeth pullled out PAST SURGICAL HISTORY OF [...] fevers. Neuro: No history of TIA's, stroke, WARP SPLITTER tumor, impaired sensorium, hemiplegia, paraplegia or quadraplegia. No neurological symptoms or problems. Respiratory: No history of current cough or dyspnea, or pneumonia in the past 6 weeks. (+) former smoker, Hx asthma ( childhood) Cardiovascular: Negative for CAD, Chest Pain(+) Hx DVT, endocarditis( >15 years ago), TR GI: See HPI (more content not included)... Normal [facility] TYPE AND SCREEN,30 DAYon ABO B Normal [facility] Comment on above: Order Comment: Speci men Type: BLOOD SPECIMENOrdering Facility: [facility] Address: [address] [place] [phone] Performed By: #### T SCR30, %ALESIA ####CC [facility]IN BLOOD BANKCLIA [id number] [address] [place]#### [id number] ####[facility] BLOOD BANKCLIA [id number] [address] HISTORICAL AB SCR STATUS Positive Abnormal [facility] Comment on above: Order Comment: Speci men Type: BLOOD SPECIMENOrdering Facility: [facility] Address: [address] [place] [address] Performed By: #### T SCR30, %ALESIA ####CC MAIN BLOOD BANKCLIA [id number] [address] [place]#### [id number] ####[facility] BLOOD BANKCLIA [id number] [address] [place] Rh Nom (Bld) Positive Normal [facility] Comment on above: Order Comment: Speci men Type: BLOOD SPECIMENOrdering Facility: [facility] Address: [address] [place] [address] Performed By: #### T SCR30, %ALESIA ####[facility] BLOOD BANKCLIA [id number] [address] [place]#### [id number] ####[facility] BLOOD BANKCLIA [id number] [address] [place] Redd 02-01-2023 CNPN Telephone ([facility]) -------- HOANG WHITE ([id number]) 1975 M Date Time Provider Department 02/01/23 ANA ENRIQUEZ [facility] During your visit today, we recorded the following information about you: Ketty Padilla 02/01/2023 11:36 AM Signed Patient called in and he is having severe pain and has a red rash around his stoma. Contact# [phone] Anthony Caraballo RN 02/01/2023 2:30 PM Signed Returned call and LVM. Hunter or Hoang will call back with their questions and concerns. Allergies As of Date: 02/01/2023 (No Known Allergies) Date Reviewed: 01/17/2023 Reviewed by: Ana Enriquez MD - Fully Assessed Reason for Visit: Patient Question [2116] Prescriptions as of 02/02/2023 - traMADol (ULTRAM) [...] Encounter Status:Closed by ANTHONY CARABALLO on 02/02/23 [facility] XR COLON SINGLE CONTRASTon 0 01-31-2023 XR [...] 1:06 (min:sec). Air kerma: 28.3 mGy. RESULT: Commercial Intern: No dilated bowel. Bowel anastomotic sutures in [...] leak or stricture at the colorectal anastomosis. Human Performance Consultant: ADDI Transcribe Date/Time: Jan 31 2023 4:14P Dictated by : MELODY GARNICA DO This examination was interpreted and the report reviewed and electronically signed by: MELODY GARNICA DO on Jan 31 2023 4:21PM EST [id number] [facility] CNCOon 01-24-2023 CNCO Letter Text Normal [facility] CNOVon 01-17-2023 CNOV Office Visit ([facility] ) -------- ESTRADAHOANG ([id number]) 1975 M Date Time Provider Department 01/17/23 10:20 AM ANA ENRIQUEZ [facility] During your visit today, we recorded the following information about you: Temperature Pulse Blood pressure Weight 97.3 degrees 55/minute 98/55 59 kg Height 1.727 m Ana Enriquez MD 01/17/2023 10:52 AM Signed COLORECTAL SURGERY January 17, 2023 Hoang White Chief Complaint: surveillance of rectal cancer History of Present Illness: Hoang hWite is a 47 year old male presents to the office for surveillance of rectal cancer. 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. Last seen in the office on on 12/06/22 with Kaylin Aragon NAIL MILL WORKER for concerns of stoma trauma. Pouching issues: [...] date/level: 05/24/22- 5.9 Clinical stage: stage IIIC, [id number] Treatment: 5000 cGy in 25 fractions, 2 [...] 2012 inguinal (more content not included)... Normal [facility] CNPNon 01-02-2023 CNPN Telephone ([facility]) -------- ESTRADAHOANG WAGONER ([id number]) 1975 M Date Time Provider Department 01/02/23 ANA ENRIQUEZ [facility] During your visit today, we recorded the following information about you: Christine Ladi 01/02/2023 3:51 PM Signed Pt. Family called and has concerns with his stoma site would like a call. PH:[phone] Anthony Caraballo RN 01/02/2023 3:58 PM Signed Returned call and left voice message. Allergies As of Date: 01/02/2023 (No Known Allergies) Date Reviewed: 12/06/2022 Reviewed by: Kaylin Aragon APRN.CONCRETE PIPE MACHINE OPERATOR - Fully Assessed Reason for Visit: Patient Question [7577] Prescriptions as of 01/03/2023 - loperamide (IMODIUM) [...] Encounter Status:Closed by ANTHONY CARABALLO on 01/03/23 [facility] Redd 12-21-2022 CNPN Telephone ([facility]) -------- HOANG WHITE ([id number]) 1975 M Date Time Provider Department 12/21/22 [...] past regarding other concerns as well. Meghan Pichardo, SHEMAR Caraballo RN 12/22/2022 2:04 PM Signed Our office called and LVM about scheduling an appointment to see Yolis NAIL MILL WORKER for his stoma issues. Waiting on a return call to confirm appointment date. Allergies As of Date: 12/21/2022 (No Known Allergies) Date Reviewed: 12/06/2022 Reviewed by: Kaylin Aragon APRN.CONCRETE PIPE MACHINE OPERATOR - Fully Assessed Reason for Visit: Care Coordination [4556] Cmt: Irritation around stoma Prescriptions as of [...] unspecified [E03.9] 12/02/2021 DVT (deep venous thrombosis) ([facility]) [I82.409] 10/28/2022 Encounter Status:Closed by MEGHAN PICHARDO on 12/21/22 [facility] -------- HOANG WHITE ([id number]) 1975 M Date Time Provider Department 12/20/22 ANA ENRIQUEZ [facility] During your visit today, we recorded the following information about you: Andreea Garces 12/20/2022 11:22 AM Signed Patient called regarding post operative 11/07 robotic laparoscopic proctectomy and wound like a refill on pain medication return call to [phone] Kelsea Daniel RN 12/20/2022 4:09 PM Signed Call returned to patient. No answer, left message to return call to office to schedule an earlier follow up for complaint of pain. LM no prescription to be sent in until evaluation. Office number provided to schedule - offered next day appt. With NAIL MILL WORKER. Dr Enriquez aware of request Allergies As of Date: 12/20/2022 (No Known Allergies) Date Reviewed: 12/06/2022 Reviewed by: Kaylin Aragon APRN.[facility] - Fully Assessed Reason for Visit: Post [...] Encounter Status:Closed by KELSEA DANIEL on 12/20/22 Normal [facility] CNOVon 12-06-2022 CNOV Office Visit ([facility] ) -------- HOANG WHITE ([id number]) 1975 M Date Time Provider Department 12/06/22 10:30 AM KAYLIN ARAGON [facility] During your visit today, we recorded the [...] stoma concern/trauma History of Present Illness: Hoang Zuñigaregorio is a 47 year old male presents [...] (PF) 0.9% (more content not included)... Normal [facility] Red[facility] 12-05-20[facility]) -------- HOANG WHITE ([id number]) 1975 M Date Time Provider Department 12/05/22 ANA ENRIQUEZ [facility] During your visit today, we recorded the following information about you: Andreea Barry Pss 12/05/2022 8:28 AM Signed Patient called and left message regarding post operative 11/07 robotic laparoscopic proctectomy and concerns regarding a hole in the stoma and leakage return call to [phone] Anthony Caraballo RN 12/05/2022 9:08 AM Signed [...] Encounter Status:Closed by ANTHONY CARABALLO on 12/05/22 [facility] Redd 12-02-2022 [facility]IRAN Telephone ([facility]) -------- HOANG WHITE ([id number]) 1975 M Date Time Provider Department 12/02/22 [...] 12/14/2022 1:13 PM Signed Faxed to [facility] #[phone] on 12/14/22. Bárbara Sexton MA Allergies As [...] Encounter Status:Closed by AVA LEWIS on 12/21/22 [facility] Redd 11-21-2022 CNPN Telephone ([facility]) -------- HOANG WHITE ([id number]) 1975 M Date Time Provider Department 11/21/22 [...] Fully Assessed Reason for Visit: Care Coordination [0749] Cmt: question Prescriptions as of 11/21/2022 - [...] Encounter Status:Closed by MEGHAN PICHARDO on 11/21/22 [facility] Redd 11-17-2022 CNPN Telephone ([facility]) -------- ESTRADAHOANG ([id number]) 1975 M Date Time Provider Department 11/17/22 ANA ENRIQUEZ [facility] During your visit today, we recorded the following information about you: Anthony Caraballo RN 11/17/2022 8:18 AM Signed Tumor board Allergies As of Date: 11/17/2022 (No Known Allergies) Date Reviewed: 11/12/2022 Reviewed by: Rowena Hammonds RN - Fully Assessed Reason for Visit: Dietitian Teaching - Other [3602] Cmt: Tumor board Primary Visit Diagnosis:Malignant neoplasm of rectum (HCC) [C20] Order(s):GI TUMOR BOARD - [facility] [APPT42] Order #: [id number]: 1 FUTURE Prescriptions as of 11/17/2022 - [...] unspecified [E03.9] 12/02/2021 DVT (deep venous thrombosis) ([facility]) [I82.409] 10/28/2022 Encounter Status:Closed by ANTHONY CARABALLO on 11/17/22 Normal [facility] Redd 11-16-2022 CNPN Telephone ([facility]) -------- HOANG WHITE ([id number]) 1975 M Date Time Provider Department 11/16/22 ANA ENRIQUEZ [facility] During your visit today, we recorded the following information about you: Ketty Randy 11/16/2022 11:59 AM Signed Patient called in and has post-op questions/surgical concerns. Patient had surgery on with Dr. Enriquez on 11/07/22. Contact# [phone] Anthony Caraballo RN 11/16/2022 12:54 PM Signed Returned call and left voice message. Allergies As of Date: 11/16/2022 (No Known Allergies) Date Reviewed: 11/12/2022 Reviewed by: Rowena Hammonds, RN - Fully Assessed Reason for Visit: Patient Question [4737] Prescriptions as of 11/17/2022 - enoxaparin (LOVENOX) [...] unspecified [E03.9] 12/02/2021 DVT (deep venous thrombosis) ([facility]) [I82.409] 10/28/2022 Encounter Status:Closed by ANTHONY CARABALLO on 11/17/22 [facility] CNDSon 11-12-2022 CNDS HNO ID: [id number] Author: Diego Osorio MD Service: Colorectal Author [...] for 5 da (more content not included)... [facility] CONSULTon 11-12-2022 CONSULT HNO ID: [id number] Author: Jess Walton RN Service: Wound/Ostomy Author Type: Registered Nurse Type: Consults Filed: 11/12/2022 10:11 AM Note Text: ANCILLARY OSTOMY CARE PROGRESS NOTE SERVICE DATE: 11/12/2022 SERVICE TIME: 10:09 AM Ostomy care follow up: Currently, the patient has no new ostomy needs and is independent with care. He is established with [facility] for ostomy supplies. He was provided with ostomy supplies at discharge should he need them. Ostomy care will sign off. SIGNATURE: Jess Walton RN PATIENT NAME: Hoang White DATE: November 12, 2022 TIME: 10:09 AM [facility] CONSULT PROGon 11-12-2022 CONSULT PROG HNO ID: [id number] Author: Chidi Penaloza PA-C Service: Pain Management Author Type: Physician Review Appraiser Type: Consult Progress Note Filed: 11/12/2022 9:18 [...] 12, 2022 TIME: 8:57 AM PAGER/CONTACT #: FLORINA [phone] [facility] CONSULT PROGon 11-11-2022 CONSULT PROG HNO ID: [id number] Author: Fe Olvera APRN.CONCRETE PIPE MACHINE OPERATOR Service: Pain Management Author Type: Nurse [...] 105 mmo (more content not included)... Normal [facility] NURSING PROGon 11-11-2022 NURSING PROG HNO ID: [id number] Author: Miriam Parker RN Service: Nursing Author [...] that are making him crazy . 1820 animal care technician on the floor to attempt to do EKG pt refused because he thought the tech was a helicopter officer, asking animal care technician to lift up his shirt to show him he's not wearing a wire. PCNA in patients room to attempt and he ripped all stickers off because he thought he was going to get zapped . Normal [facility] CONSULT PROGon 11-10-2022 CONSULT PROG HNO ID: [id number] Author: Fe Olvera APRN.[facility]IR[facility] Service: Pain Management [...] mmol/L 4.2 C (more content not included)... [facility] NURSING PROGon 11-10-2022 NURSING PROG HNO ID: [id number] Author: Niharika Gaspar, RN Service: ? Author Type: Registered Nurse Type: Nursing Progress Note Filed: 11/10/2022 6:58 AM Note Text: Nursing note: 2337: colorectal progress note states kirkpatrick can be D/C at midnight but there is no order. Text page sent to [facility] regarding kirkpatrick. 2355: order added for kirkpatrick removal at 0000 0000: patient refusing to have kirkpatrick removed until morning. This RN educated patient about the importance of kirkpatrick removal and the need for voiding on his own, but patient is still refusing. [facility] notified. 0655: patient called this RN in the room and states that he feels that he is starting to withdrawal and needs medication. Text page sent to green team requesting medication and to assess patient. 0658: surgery at bedside [facility] Basic metabolic 2000 panelon 11-09-2022 Anion gap [Moles/Vol] 10 mmol/L Normal - [facility] Comment on above: Order Comment: Speci men Type: BLOOD SPECIMEN Ordering Facility: [facility] Address: [address] [place] [address] Performed By: #### 2 4321- #### [facility] CLIA [id number] [address] [place] [address] [place] Calcium [Mass/Vol] 8.7 mg/dL Normal 8.5-10.2 [facility] Comment on above: Order Comment: Speci men Type: BLOOD SPECIMEN Ordering Facility: [facility] Address: [address] [place] [address] Performed By: #### 2 4320-11, #### [facility] CLIA [id number] [address] [place] [address] [place] Chloride [Moles/Vol] 106 mmol/L High 97-105 [facility] Comment on above: Order Comment: Speci men Type: BLOOD SPECIMEN Ordering Facility: [facility] Address: [address] [place] [address] Performed By: #### 2 4320-11, #### [facility] CLIA [id number] [address] [place] [address] [place] CO2 [Moles/Vol] 24 mmol/L Normal 22-30 [facility] Comment on above: Order Comment: Speci men Type: BLOOD SPECIMEN Ordering Facility: [facility] Address: [address] [place] [address] Performed By: #### 2 4320-11, #### [facility] CLIA [id number] [address] [place] [address] [place] Creatinine [Mass/Vol] 0.82 mg/dL Normal 0.73-1.22 [facility] Comment on above: Order Comment: Speci men Type: BLOOD SPECIMEN Ordering Facility: [facility] Address: [address] [place] [address] Performed By: #### 2 4320-11, #### [facility] CLIA [id number] [address] [place] [address] [place] ESTIMATED GLOMERULAR FILTRATION RATE 108 mL/min/1.73m??? Normal >=60 [facility] Comment on above: Order Comment: Speci men Type: BLOOD SPECIMEN Ordering Facility: [facility] Address: [address] [address] Result Comment: Tanya mated Glomerular Filtration Rate [...] reflect actual GFR. Performed By: #### 2 4320-, #### [facility] CLIA [id number] [address] [place] [address] [place] Glucose [Mass/Vol] 98 mg/dL Normal 74-99 [facility] Comment on above: Order Comment: Gerry ibrahim Type: BLOOD SPECIMEN Ordering Facility: [facility] Address: [address] [address] Result Comment: The [place] [employer] (ADA) provides guidance for cutoff [...] Standards of Medical Care in Diabetes 2016, [place] [employer]. Diabetes Care. 2016.39(Suppl 1). Performed By: #### 2 4320-11, #### [facility] CLIA [id number] [place] [address] [place] Potassium [Moles/Vol] 4.2 mmol/L Normal 3.7-5.1 [facility] Comment on above: Order Comment: Gerry ibrahim Type: BLOOD SPECIMEN Ordering Facility: [facility] Address: [address] [address] Performed By: #### 2 432-, #### [facility] CLIA [id number] [address] [place] [address] [place] Sodium [Moles/Vol] 140 mmol/L Normal 136-144 [facility] Comment on above: Order Comment: Speci men Type: BLOOD SPECIMEN Ordering Facility: [facility] Address: [address] [place] [address] Performed By: #### 2 4321-2, #### [facility] CLIA [id number] [address] [place] [address] [place] Urea nitrogen [Mass/Vol] 14 mg/dL Normal 9-24 [facility] Comment on above: Order Comment: Speci men Type: BLOOD SPECIMEN Ordering Facility: [facility] Address: [address] [place] [address] Performed By: #### 2 432-2, #### [facility] CLIA [id number] [address] [place] [address] [place] CBC W Auto Differential pane l (Bld)on 11-09-2022 Basophils (Bld) [#/Vol] 0.03 10*3/uL Normal <0.11 [facility] Comment on above: Order Comment: Speci men Type: BLOOD SPECIMEN Ordering Facility: [facility] Address: [address] [place] [address] Performed By: #### 5 7021-8 #### [facility] CLIA [id number] [address] [place] [address] [place] Basophils/100 WBC (Bld) 0.3 % Normal [facility] Comment on above: Order Comment: Speci men Type: BLOOD SPECIMEN Ordering Facility: [facility] Address: [address] [place] [address] Performed By: #### 5 7021-8 #### [facility] CLIA [id number] [address] [place] [address] [place] Differential cell count method Nom (Bld) Auto Normal [facility] Comment on above: Order Comment: Speci men Type: BLOOD SPECIMEN Ordering Facility: [facility] Address: [address] [place] [address] Performed By: #### 5 7021-8 #### [facility] CLIA [id number] [address] [place] [address] [place] Eosinophils (Bld) [#/Vol] 0.10 10*3/uL Normal <0.46 [facility] Comment on above: Order Comment: Speci men Type: BLOOD SPECIMEN Ordering Facility: [facility] Address: [address] [place] [address] Performed By: #### 5 7021-8 #### [facility] CLIA [id number] [address] [place] [address] [place] Eosinophils/100 WBC (Bld) 1.0 % Normal [facility] Comment on above: Order Comment: Speci men Type: BLOOD SPECIMEN Ordering Facility: [facility] Address: [address] [place] [address] Performed By: #### 5 7021-8 #### [facility] CLIA [id number] [address] [place] [address] [place] Erythrocyte distribution width (RBC) [Ratio] 11.9 % Normal 11.5-15.0 [facility] Comment on above: Order Comment: Speci men Type: BLOOD SPECIMEN Ordering Facility: [facility] Address: [address] [place] [address] Performed By: #### 5 7021-8 #### [facility] CLIA [id number] [address] [place] [address] [place] Hematocrit (Bld) [Volume fraction] 35.0 % Low 39.0-51.0 [facility] Comment on above: Order Comment: Speci men Type: BLOOD SPECIMEN Ordering Facility: [facility] Address: [address] [place] [address] Performed By: #### 5 7021-8 #### [facility] CLIA [id number] [address] [place] [address] [place] Hemoglobin (Bld) [Mass/Vol] 12.1 g/dL Low 13.0-17.0 [facility] Comment on above: Order Comment: Speci men Type: BLOOD SPECIMEN Ordering Facility: [facility] Address: [address] [address] Performed By: #### 5 7021-8 #### [facility] CLIA [id number] [address] [place] [address] [place] Immature granulocytes (Bld) [#/Vol] 0.04 10*3/uL Normal <0.10 [facility] Comment on above: Order Comment: Speci men Type: BLOOD SPECIMEN Ordering Facility: [facility] Address: [address] [place] [address] Performed By: #### 5 7021-8 #### [facility] CLIA [id number] [address] [place] [address] [place] Immature granulocytes/100 WBC (Bld) 0.4 % Normal [facility] Comment on above: Order Comment: Speci men Type: BLOOD SPECIMEN Ordering Facility: [facility] Address: [address] [place] [address] Performed By: #### 5 7021-8 #### [facility] CLIA [id number] [address] [place] [address] [place] Lymphocytes (Bld) [#/Vol] 0.62 10*3/uL Low 1.00-4.00 [facility] Comment on above: Order Comment: Speci men Type: BLOOD SPECIMEN Ordering Facility: [facility] Address: [address] [place] [address] Performed By: #### 5 7021-8 #### [facility] CLIA [id number] [address] [place] [address] [place] Lymphocytes/100 WBC (Bld) 6.4 % Normal [facility] Comment on above: Order Comment: Speci men Type: BLOOD SPECIMEN Ordering Facility: [facility] Address: [address] [place] [address] Performed By: #### 5 7021-8 #### [facility] CLIA [id number] [address] [place] [address] [place] MCH (RBC) [Entitic mass] 33.7 pg Normal 26.0-34.0 [facility] Comment on above: Order Comment: Speci men Type: BLOOD SPECIMEN Ordering Facility: [facility] Address: [address] [address] Performed By: #### 5 7021-8 #### [facility] CLIA [id number] [address] [place] [address] [place] [facility] MCHC (RBC) [Mass/Vol] 34.6 g/dL Normal 30.5-36.0 [facility] Comment on above: Order Comment: Speci men Type: BLOOD SPECIMEN Ordering Facility: [facility] Address: [address] [address] Performed By: #### 5 7021-8 #### [facility] CLIA [id number] [address] [place] [address] [place] MCV (RBC) [Entitic vol] 97.5 fL Normal 80.0-100.0 [facility] Comment on above: Order Comment: Speci men Type: BLOOD SPECIMEN Ordering Facility: [facility] Address: [address] [address] Performed By: #### 5 7021-8 #### [facility] CLIA [id number] [address] [place] [address] [place] Monocytes (Bld) [#/Vol] 0.62 10*3/uL Normal <0.87 [facility] Comment on above: Order Comment: Speci men Type: BLOOD SPECIMEN Ordering Facility: [facility] Address: [address] [address] Performed By: #### 5 7021-8 #### [facility] CLIA [id number] [address] [place] [address] [place] Monocytes/100 WBC (Bld) 6.4 % Normal [facility] Comment on above: Order Comment: Speci men Type: BLOOD SPECIMEN Ordering Facility: [facility] Address: [address] [address] Performed By: #### 5 7021-8 #### [facility] CLIA [id number] [address] [place] [address] [place] Neutrophils (Bld) [#/Vol] 8.25 10*3/uL High 1.45-7.50 [facility] Comment on above: Order Comment: Speci men Type: BLOOD SPECIMEN Ordering Facility: [facility] Address: [address] [place] [address] Performed By: #### 5 7021-8 #### [facility] CLIA [id number] [address] [place] [address] [place] Neutrophils/100 WBC (Bld) 85.5 % Normal [facility] Comment on above: Order Comment: Speci men Type: BLOOD SPECIMEN Ordering Facility: [facility] Address: [address] [place] [address] Performed By: #### 5 7021-8 #### [facility] CLIA [id number] [address] [place] [address] [place] Nucleated RBC (Bld) [#/Vol] 10*3/uL Normal <0.01 [facility] Comment on above: Order Comment: Speci men Type: BLOOD SPECIMEN Ordering Facility: [facility] Address: [address] [place] [address] Performed By: #### 5 7021-8 #### [facility] CLIA [id number] [address] [place] [address] [place] Nucleated RBC/100 WBC (Bld) [Ratio] 0.0 /100 WBC Normal [facility] Comment on above: Order Comment: Speci men Type: BLOOD SPECIMEN Ordering Facility: [facility] Address: [address] [place] [address] Performed By: #### 5 7021-8 #### [facility] CLIA [id number] [address] [place] [address] [place] Platelet mean volume (Bld) [Entitic vol] 10.0 fL Normal 9.0-12.7 [facility] Comment on above: Order Comment: Speci men Type: BLOOD SPECIMEN Ordering Facility: [facility] Address: [address] [place] [address] Performed By: #### 5 7021-8 #### [facility] CLIA [id number] [address] [place] [address] [place] Platelets (Bld) [#/Vol] 167 10*3/uL Normal 150-400 [facility] Comment on above: Order Comment: Speci men Type: BLOOD SPECIMEN Ordering Facility: [facility] Address: [address] [address] Performed By: #### 5 7021-8 #### [facility] CLIA [id number] [address] [place] [address] [place] RBC (Bld) [#/Vol] 3.59 10*6/uL Low 4.20-6.00 [facility] Comment on above: Order Comment: Speci men Type: BLOOD SPECIMEN Ordering Facility: [facility] Address: [address] [place] [address] Performed By: #### 5 7021-8 #### [facility] CLIA [id number] [address] [place] [address] [place] WBC (Bld) [#/Vol] 9.66 10*3/uL Normal 3.70-11.00 [facility] Comment on above: Order Comment: Speci men Type: BLOOD SPECIMEN Ordering Facility: [facility] Address: [address] [place] [address] Performed By: #### 5 7021-8 #### [facility] CLIA [id number] [address] [place] [address] OF [place] CONSULTon 11-09-2022 CONSULT HNO ID: [id number] Author: Hussain Aldridge RN Service: Wound/Ostomy Author [...] LUQ Protrusion: Budded Mucosal condition and color: [place] and moist. Jona: No Mucocutaneous Junction: Intact Output: Yes: Flatus and Effluent Peristomal Skin: Clear and intact Location of Skin Impairment: NA Treatment of Skin Impairment: NA Supportive Tissue: Firm Pouching System: Coloplast Sensura one piece cut to fit drainable pouch (#[id number]) with a moldable ring Time Increment: 45 [...] FROM THE CHART OR MODIFY PRINTED COPY. [facility] CONSULT PROGon 11-09-2022 CONSULT PROG HNO ID: [id number] Author: Lois Ureña DO Service: Pain Management [...] the note as written. Signature: Zraa Davison Date: 11/17/2022 Time: 7:32 AM -------- [...] 09, 2022 TIME: 12:59 PM PAGER/CONTACT #: [facility] [phone] [facility] 11-09 Magnesium [Mass/Vol] 1.8 mg/dL Normal 1.7-2.3 [facility] Comment on above: Order Comment: Speci men Type: BLOOD SPECIMEN Ordering Facility: [facility] Address: [place] [address] Performed By: #### 2 4321-2, 74374-0 #### [facility] CLIA [id number] [address] [place] [address] NURSING PROGon 11-09-2022 NURSING PROG HNO ID: [id number] Author: Lisa Mccormick RN Service: Nursing Author [...] than local. Report given to bedside nurse. [facility] PT EDon 11-09-2022 PT ED HNO ID: [id number] Author: Ilda Orozco DTR Service: Nutrition Therapy Author Type: Casino Worker Type: Patient Education Filed: 11/09/2022 2:17 PM [...] November 09, 2022 TIME: 2:16 PM PAGER: [facility] Basic metabolic 2000 panelon 11-08-2022 Anion gap [Moles/Vol] 13 mmol/L Normal 9-18 [facility] Comment on above: Order Comment: Speci men Type: BLOOD SPECIMEN Ordering Facility: [facility] Address: [address] [place] [address] Performed By: #### 2 4322, #### [facility] CLIA [id number] [address] [place] [address] [place] Calcium [Mass/Vol] 8.9 mg/dL Normal 8.5-10.2 [facility] Comment on above: Order Comment: Speci men Type: BLOOD SPECIMEN Ordering Facility: [facility] Address: [address] [place] [address] Performed By: #### 2 4320-11, #### [facility] CLIA [id number] [address] [place] [address] [place] Chloride [Moles/Vol] 102 mmol/L Normal 97-105 [facility] Comment on above: Order Comment: Speci men Type: BLOOD SPECIMEN Ordering Facility: [facility] Address: [address] [place] [address] Performed By: #### 2 4320-11, #### [facility] CLIA [id number] [address] [place] [address] [place] CO2 [Moles/Vol] 23 mmol/L Normal 22-30 [facility] Comment on above: Order Comment: Speci men Type: BLOOD SPECIMEN Ordering Facility: [facility] Address: [address] [place] [address] Performed By: #### 2 2, #### [facility] CLIA [id number] [address] [place] [address] [place] Creatinine [Mass/Vol] 0.78 mg/dL Normal 0.73-1.22 [facility] Comment on above: Order Comment: Speci men Type: BLOOD SPECIMEN Ordering Facility: [facility] Address: [address] [place] [address] Performed By: #### 2 4321- #### [facility] CLIA [id number] [address] [place] [address] [place] ESTIMATED GLOMERULAR FILTRATION RATE 109 mL/min/1.73m??? Normal >=60 [facility] Comment on above: Order Comment: Gerry ibrahim Type: BLOOD SPECIMEN Ordering Facility: [facility] Address: [address] [place] [address] Result Comment: Tanya mated Glomerular Filtration Rate [...] GFR. Performed By: #### 2 432-, #### [facility] CLIA [id number] [address] [place] [address] [place] Glucose [Mass/Vol] 140 mg/dL High 74-99 [facility] Comment on above: Order Comment: Gerry ibrahim Type: BLOOD SPECIMEN Ordering Facility: [facility] Address: [address] [place] [address] Result Comment: The [place] [employer] (ADA) provides guidance for cutoff [...] Standards of Medical Care in Diabetes 2016, [place] [employer]. Diabetes Care. 2016.39(Suppl 1). Performed By: #### 2 4321-2, #### [facility] CLIA [id number] [address] [place] [address] [place] Potassium [Moles/Vol] 4.0 mmol/L Normal 3.7-5.1 [facility] Comment on above: Order Comment: Speci men Type: BLOOD SPECIMEN Ordering Facility: [facility] Address: [address] [address] Performed By: #### 2 4321-2, #### [facility] CLIA [id number] [address] [place] [address] [place] Sodium [Moles/Vol] 138 mmol/L Normal 136-144 [facility] Comment on above: Order Comment: Speci men Type: BLOOD SPECIMEN Ordering Facility: [facility] Address: [address] [address] Performed By: #### 2 4320-2, #### [facility] CLIA [id number] [address] [place] [address] [place] Urea nitrogen [Mass/Vol] 11 mg/dL Normal 9-24 [facility] Comment on above: Order Comment: Speci men Type: BLOOD SPECIMEN Ordering Facility: [facility] Address: [address] [address] Performed By: #### 2 4320-2, #### [facility] CLIA [id number] [address] [place] [address] [place] CBC W Auto Differential pane l (Bld)on 11-08-2022 Basophils (Bld) [#/Vol] 10*3/uL Normal <0.11 [facility] Comment on above: Order Comment: Speci men Type: BLOOD SPECIMEN Ordering Facility: [facility] Address: [address] [address] Performed By: #### 5 7021-8 #### [facility] CLIA [id number] [address] [place] [address] [place] Basophils/100 WBC (Bld) 0.1 % Normal [facility] Comment on above: Order Comment: Speci men Type: BLOOD SPECIMEN Ordering Facility: [facility] Address: [address] [place] [address] Performed By: #### 5 7021-8 #### [facility] CLIA [id number] [address] [place] [address] [place] Differential cell count method Nom (Bld) Auto Normal [facility] Comment on above: Order Comment: Speci men Type: BLOOD SPECIMEN Ordering Facility: [facility] Address: [address] [place] [address] Performed By: #### 5 7021-8 #### [facility] CLIA [id number] [address] [place] [address] [place] Eosinophils (Bld) [#/Vol] 10*3/uL Normal <0.46 [facility] Comment on above: Order Comment: Speci men Type: BLOOD SPECIMEN Ordering Facility: [facility] Address: [address] [place] [address] Performed By: #### 5 7021-8 #### [facility] CLIA [id number] [address] [place] [address] [place] Eosinophils/100 WBC (Bld) 0.0 % Normal [facility] Comment on above: Order Comment: Speci men Type: BLOOD SPECIMEN Ordering Facility: [facility] Address: [address] [place] [address] Performed By: #### 5 7021-8 #### [facility] CLIA [id number] [address] [place] [address] [place] Erythrocyte distribution width (RBC) [Ratio] 11.9 % Normal 11.5-15.0 [facility] Comment on above: Order Comment: Speci men Type: BLOOD SPECIMEN Ordering Facility: [facility] Address: [address] [place] [address] Performed By: #### 5 7021-8 #### [facility] CLIA [id number] [address] [place] [address] [place] Hematocrit (Bld) [Volume fraction] 38.7 % Low 39.0-51.0 [facility] Comment on above: Order Comment: Speci men Type: BLOOD SPECIMEN Ordering Facility: [facility] Address: [address] [place] [address] Performed By: #### 5 7021-8 #### [facility] CLIA [id number] [address] [place] [address] [place] Hemoglobin (Bld) [Mass/Vol] 13.8 g/dL Normal 13.0-17.0 [facility] Comment on above: Order Comment: Speci men Type: BLOOD SPECIMEN Ordering Facility: [facility] Address: [address] [address] Performed By: #### 5 7021-8 #### [facility] CLIA [id number] [address] [place] [address] [place] Immature granulocytes (Bld) [#/Vol] 0.12 10*3/uL High <0.10 [facility] Comment on above: Order Comment: Speci men Type: BLOOD SPECIMEN Ordering Facility: [facility] Address: [address] [place] [address] Performed By: #### 5 7021-8 #### [facility] CLIA [id number] [address] [place] [address] [place] Immature granulocytes/100 WBC (Bld) 1.0 % Normal [facility] Comment on above: Order Comment: Speci men Type: BLOOD SPECIMEN Ordering Facility: [facility] Address: [address] [address] Performed By: #### 5 7021-8 #### [facility] CLIA [id number] [address] [place] [address] [place] Lymphocytes (Bld) [#/Vol] 0.33 10*3/uL Low 1.00-4.00 [facility] Comment on above: Order Comment: Speci men Type: BLOOD SPECIMEN Ordering Facility: [facility] Address: [address] [address] Performed By: #### 5 7021-8 #### [facility] CLIA [id number] [address] [place] [address] [place] Lymphocytes/100 WBC (Bld) 2.7 % Normal [facility] Comment on above: Order Comment: Speci men Type: BLOOD SPECIMEN Ordering Facility: [facility] Address: [address] [place] [address] Performed By: #### 5 7021-8 #### [facility] CLIA [id number] [address] [place] [address] [place] MCH (RBC) [Entitic mass] 33.7 pg Normal 26.0-34.0 [facility] Comment on above: Order Comment: Speci men Type: BLOOD SPECIMEN Ordering Facility: [facility] Address: [address] [place] [address] Performed By: #### 5 7021-8 #### [facility] CLIA [id number] [address] [place] [address] [place] MCHC (RBC) [Mass/Vol] 35.7 g/dL Normal 30.5-36.0 [facility] Comment on above: Order Comment: Speci men Type: BLOOD SPECIMEN Ordering Facility: [facility] Address: [address] [place] [address] Performed By: #### 5 7021-8 #### [facility] CLIA [id number] [address] [place] [address] [place] MCV (RBC) [Entitic vol] 94.6 fL Normal 80.0-100.0 [facility] Comment on above: Order Comment: Speci men Type: BLOOD SPECIMEN Ordering Facility: [facility] Address: [address] [place] [address] Performed By: #### 5 7021-8 #### [facility] CLIA [id number] [address] [place] [address] [place] Monocytes (Bld) [#/Vol] 0.64 10*3/uL Normal <0.87 [facility] Comment on above: Order Comment: Speci men Type: BLOOD SPECIMEN Ordering Facility: [facility] Address: [address] [place] [address] Performed By: #### 5 7021-8 #### [facility] CLIA [id number] [address] [place] [address] Monocytes/100 WBC (Bld) 5.2 % Normal [facility] Comment on above: Order Comment: Speci men Type: BLOOD SPECIMEN Ordering Facility: [facility] Address: [address] [place], [place] [address] Performed By: #### 5 7021-8 #### [facility] CLIA [id number] [address] [place] [address] [place] Neutrophils (Bld) [#/Vol] 11.29 10*3/uL High 1.45-7.50 [facility] Comment on above: Order Comment: Speci men Type: BLOOD SPECIMEN Ordering Facility: [facility] Address: [address] [place] [address] Performed By: #### 5 7021-8 #### [facility] CLIA [id number] [address] [place] [address] [place] Neutrophils/100 WBC (Bld) 91.0 % Normal [facility] Comment on above: Order Comment: Speci men Type: BLOOD SPECIMEN Ordering Facility: [facility] Address: [address] [place] [address] Performed By: #### 5 7021-8 #### [facility] CLIA [id number] [address] [place] [address] [place] Nucleated RBC (Bld) [#/Vol] 10*3/uL Normal <0.01 [facility] Comment on above: Order Comment: Speci men Type: BLOOD SPECIMEN Ordering Facility: [facility] Address: [address] [place] [address] Performed By: #### 5 7021-8 #### [facility] CLIA [id number] [address] [place] [address] [place] Nucleated RBC/100 WBC (Bld) [Ratio] 0.0 /100 WBC Normal [facility] Comment on above: Order Comment: Speci men Type: BLOOD SPECIMEN Ordering Facility: [facility] Address: [address] [place] [address] Performed By: #### 5 7021-8 #### [facility] CLIA [id number] [address] [place] [address] [place] Platelet mean volume (Bld) [Entitic vol] 9.7 fL Normal 9.0-12.7 [facility] Comment on above: Order Comment: Speci men Type: BLOOD SPECIMEN Ordering Facility: [facility] Address: [address] [place] [address] Performed By: #### 5 7021-8 #### [facility] CLIA [id number] [address] [place] [address] [place] Platelets (Bld) [#/Vol] 207 10*3/uL Normal 150-400 [facility] Comment on above: Order Comment: Speci men Type: BLOOD SPECIMEN Ordering Facility: [facility] Address: [address] [place] [address] Performed By: #### 5 7021-8 #### [facility] CLIA [id number] [address] [place] [address] [place] RBC (Bld) [#/Vol] 4.09 10*6/uL Low 4.20-6.00 [facility] Comment on above: Order Comment: Speci men Type: BLOOD SPECIMEN Ordering Facility: [facility] Address: [address] [place] [address] Performed By: #### 5 7021-8 #### [facility] CLIA [id number] [address] [place] [address] [place] WBC (Bld) [#/Vol] 12.39 10*3/uL High 3.70-11.00 [facility] Comment on above: Order Comment: Speci men Type: BLOOD SPECIMEN Ordering Facility: [facility] Address: [address] [place] [address] Performed By: #### 5 7021-8 #### [facility] CLIA [id number] [address] [place] [address] [place] CONSULTon 11-08-2022 CONSULT HNO ID: [id number] Author: Hussain Aldridge RN Service: Wound/Ostomy Author [...] one piece cut to fit drainable pouch (#[id number]) with a Brava moldable barrier ring Time [...] THE CHART OR MODIFY PRINTED COPY. Normal [facility] Magnesium SerPl-mCncon 11-08 Magnesium [Mass/Vol] 1.7 mg/dL Normal 1.7-2.3 [facility] Comment on above: Order Comment: Speci men Type: BLOOD SPECIMEN Ordering Facility: [facility] Address: [address] [place], [place] [address] [address] Performed By: #### 2 4321-2, 43103-2 #### [facility] CLIA [id number] [place] [address] [facility] [place] NURSING PROGon 11-08-2022 NURSING PROG HNO ID: [id number] Author: Macy Crews RN Service: ? Author Type: Registered Nurse Type: Nursing Progress Note Filed: 11/08/2022 6:47 PM Note Text: Other: Tolerated some clear liquids today, seen by ostomy consult, ileostomy started producing, les not really emptied ,little out; good UO from [place], he wanted to be left alone to sleep, continue hourly checks. [facility] NURSING PROG HNO ID: [id number] Author: Macy Crews RN Service: ? Author Type: Registered Nurse Type: Nursing Progress Note Filed: 11/08/2022 9:23 AM Note Text: Other: VSS, alert, 95% RA, pain controlled with dilaudid sampler ovens, diet advanced to clears, ileostomy intact has bowel sweat; patient asked to keep his door closed and when he's ready he'll get up, he knows what to do, call light in reach, continue to monitor. [facility] NURSING PROG HNO ID: [id number] Author: Kiah Kim RN Service: Nursing Author Type: Registered Nurse Type: Nursing Progress Note Filed: 11/07/2022 11:11 PM Note Text: Transfer Note: Patient transferred into room/unit PK330 in stable condition. Actions taken: No futher actions taken at this time. Will continue to monitor and check with patient. [facility] NUTRITIONon 11-08-2022 NUTRITION HNO ID: [id number] Author: Millie Lam RD Service: NST-Nutrition Support [...] mathieu;Weight loss;Imaging studies;Intake records Estimated kilocalorie needs: 7756-2003 kcal Calorie Calculation Method: 30-35 kcals/kg Estimated [...] unlimited liquids or GI soft diet 11/07/22 4102 Anthropometrics: Height: 172.7 cm (5' 8 ) [...] DATE: November 08, 2022 TIME: 3:49 PM [facility] ANES POSTPROC EVALon 023 ANES POSTPROC EVAL HNO ID: [id number] Author: Pablito Valentin MD Service: Anesthesiology Author [...] November 07, 2022 TIME: 9:58 PM CSN: [id number] [facility] ANES PRE-OPon 11-07-2022 ANES PRE-OP HNO ID: [id number] Author: Pablito Valentin MD Service: Anesthesiology Author [...] and consent discussed: yes. Patient / Responsible Green Party agrees to proceed: yes Patient / Surrogate [...] 8 mg (more content not included)... Normal [facility] BLOOD BANK COMMENTon 023 BLOOD BANK COMMENT See Comment Normal [facility] Comment on above: Order Comment: Speci men Type: BLOOD SPECIMENOrdering Facility: [facility] Address: [address] [place], [place] [phone] Result Comment: See physician's report under antibody interpretation 02.04.2022. Performed By: #### T [facility], [id number] ####[facility] [id number] [address] OF [facility] BRIEF OP NOTon 11-07-2022 BRIEF OP NOT HNO ID: [id number] Author: Diego Osorio MD Service: Colorectal Author Type: Resident Type: Brief Op Note Filed: 11/07/2022 9:13 PM Note Text: BRIEF OPERATIVE NOTE - COLORECTAL SURGERY Log ID: [id number] Surgery/Procedure Date: 11/07/2022 Incision/Procedure Start Time: 4:29 PM Incision Close/Procedure End Time: 8:48 PM Surgeon(s) and Review Appraiser(s): Surgeon(s) and Role: * Ana Enriquez MD [...] DATE: November 07, 2022 TIME: 9:10 PM [facility] NURSING PROGon 11-07-2022 NURSING PROG HNO ID: [id number] Author: Rowena Joaquin RN Service: Nursing Author [...] (RECOMMENDATION): None Electronically Signed By: Rowena Joaquin [facility] OPERATIVE NOon 11-07-2022 OPERATIVE NO HNO ID: [id number] Author: Ana Enriquez MD Service: Colorectal Author Type: Physician Type: Operative Report Filed: 11/25/2022 6:21 PM Note Text: COLON AND RECTAL SURGERY OPERATIVE REPORT PATIENT NAME: Hoang White ADMISSION DATE: 11/07/2022 LOG ID: [id number] SURGERY/PROCEDURE DATE: 11/07/2022 INCISION/PROCEDURE START TIME: 4:29 PM INCISION CLOSE/PROCEDURE END TIME: 8:48 PM AGE: [age] year old SEX: male SURGEON(S)/PROCEDURALIST (S) AND PHOTO FINISH PHOTOGRAPHER(S): Surgeon(s) and Role: * Ana Enriquez MD [...] pursestring suture and (more content not included)... [facility] SARS-CoV-2 RNA Resp Ql FÉLIX+p robeon 11-07-2022 SARS-CoV-2 (COVID-19) RNA FÉLIX+probe Ql (Resp) COVID 19 RESULT: SARS-CoV-2 (Agent of COVID-19) Not Detected by RT-PCR or equivalent method. This test has been authorized by FDA under an Emergency Use Authorization (EUA). [facility] Comment on above: Performed By: #### 9 4500-6 ####[facility] [id number] [address] STATES OF [place] SURGICAL PATHOLOGYon 023 CASE REPORT [facility] Comment on above: Order Comment: Speci men Type: BLOOD SPECIMEN Ordering Facility: [facility] Address: [address] [place] [address] [place] [phone] Result Comment: Surg ical Pathology Report Case: [id number] Authorizing Provider: Ana Enriquez MD Collected: 11/07/2022 07:43 PM Ordering Location: [facility] Received: 11/08/2022 07:32 AM Operating Room Pathologist: Durga Malave MD Specimens: A) - COLON RESECTION, low anterior resection B) - MARGIN, distal margin Performed By: #### 5 7021-8 #### [facility] CLIA [id number] [address] [place] [address] CLINICAL HISTORY Normal [facility] Comment on above: Order Comment: Speci men Type: BLOOD SPECIMEN Ordering Facility: [facility] Address: [address] [place] [address] Result Comment: colo stomy takedown, robotic low anterior resection, flexible sigmoidoscopy, diverting loop ileostomy Pre-op diagnosis: Rectal cancer (HCC) [C20] Performed By: #### 5 7021-8 #### [facility] CLIA [id number] [address] [place] [address] FINAL DIAGNOSIS Normal [facility] Comment on above: Order Comment: Speci men Type: BLOOD SPECIMEN Ordering Facility: [facility] Address: [address] [place] [address] Result Comment: A. S igmoid colon and rectum, low anterior resection: - Residual invasive adenocarcinoma (see synoptic report). - Fourteen lymph nodes, negative for malignancy (0/14). B. Additional distal margin, excision: - Segment of rectum with no diagnostic abnormality. JEL 11/10/2022 Performed By: #### 5 7021-8 #### [facility] CLIA [id number] [address] [place] [address] FINAL PERFORMING LAB Normal [facility] Comment on above: Order Comment: Speci men Type: BLOOD SPECIMEN Ordering Facility: [facility] Address: [address] [place] [address] Result Comment: Diag nostic interpretation performed at [facility], [address] [place] [address] CLIA# [id number] Parts Puller: Viviana Boone M.D. Performed By: #### 5 7021-8 #### [facility] [place] [id number] STATES OF [facility] GROSS DESCRIPTION Normal [facility] Comment on above: Order Comment: Speci men Type: BLOOD SPECIMEN Ordering Facility: [facility] Address: [address] [place], [place] [phone] Result Comment: A. C OLON RESECTION Received [...] thickened with a wall measuring 1 cm. Relocation Services Specialist sections are submitted as follows: A1 proximal [...] 2022 10:04 AM Gross examination performed at [facility], [address] [place] [address] B. MARGIN Received in formalin designated distal margin donut that measures 0.6 cm in length and 1.6 cm in diameter. The mucosa is dudley-marcano. The specimen is serially sectioned and entirely submitted in one cassette. WE November 08, 2022 12:22 PM Gross examination performed at [facility], [address] [place] [address] Performed By: #### 5 7021-8 #### [facility] CLIA [id number] [address] [place] [address] [place] SYNOPTIC REPORT Normal [facility] Comment on above: Order Comment: Speci men Type: BLOOD SPECIMEN Ordering Facility: [facility] Address: [address] [place], [place] [phone] Result Comment: COLO N AND RECTUM: Resection, [...] pN0 Performed By: #### 5 7021-8 #### [facility] CLIA [id number] TYPE + SCREENon 11-07-2022 ABO B Normal [facility] Comment on above: Order Comment: Speci men Type: BLOOD SPECIMENOrdering Facility: [facility] Address: [address] [address] Performed By: #### T SCR, [id number] ####[facility] [id number] [address] HISTORICAL AB SCR STATUS Positive Abnormal [facility] Comment on above: Order Comment: Speci men Type: BLOOD SPECIMENOrdering Facility: [facility] Address: [address] [address] Performed By: #### T SCR, [id number] ####[facility] [id number] [address] Rh Nom (Bld) Positive [facility] Comment on above: Order Comment: Speci men Type: BLOOD SPECIMENOrdering Facility: [facility] Address: [address] [address] Performed By: #### T SCR, [id number] ####[facility] [id number] [address] TYPE AND SCREEN EXPIRATION 11/10/2022 23:59 Normal [facility] Comment on above: Order Comment: Speci men Type: BLOOD SPECIMENOrdering Facility: [facility] Address: [address] [address] Performed By: #### T SCR, [id number] ####[facility] [id number] [address] OF [place]IM ANTIBODY ID PATIENTon 2021 ANTIBODY IDENTIFIED Detected Normal [facility] Comment on above: Order Comment: Speci men Type: BLOOD SPECIMENOrdering Facility: [facility] Address: [address] [address] Performed By: #### % [place], [id number], [id number] ####[facility]IN BLOOD BANKCLIA [id number] [address] BLOOD BANK COMMENTon 022 BLOOD BANK COMMENT See Comment Normal [facility] Comment on above: Order Comment: Speci men Type: BLOOD SPECIMENOrdering Facility: [facility] Address: [address] [address] Result Comment: See physician's report under antibody interpretation on 02.04.22 Performed By: #### % ALESIA, [id number], [id number] ####CC MAIN BLOOD BANKCLIA [id number] [address] CBC W Auto Differential pane l (Bld)on 10-28-2022 Basophils (Bld) [#/Vol] 0.04 10*3/uL <0.11 k/uL [facility] Basophils/100 WBC (Bld) 0.8 % [facility] Differential cell count method Nom (Bld) Auto [facility] Eosinophils (Bld) [#/Vol] 0.16 10*3/uL <0.46 k/uL [facility] Eosinophils/100 WBC (Bld) 3.2 % [facility] Erythrocyte distribution width (RBC) [Ratio] 12.8 % 11.5 - 15.0 % [facility] Hematocrit (Bld) [Volume fraction] 43.0 % 39.0 - 51.0 % [facility] Hemoglobin (Bld) [Mass/Vol] 14.6 g/dL 13.0 - 17.0 g/dL [facility] Immature granulocytes (Bld) [#/Vol] <0.10 k/uL [facility] Immature granulocytes/100 WBC (Bld) 0.4 % [facility] Lymphocytes (Bld) [#/Vol] 0.60 10*3/uL Low 1.00 - 4.00 k/uL [facility] Lymphocytes/100 WBC (Bld) 11.9 % [facility] MCH (RBC) [Entitic mass] 34.4 pg High 26.0 - 34.0 pg [facility] MCHC (RBC) [Mass/Vol] 34.0 g/dL 30.5 - 36.0 g/dL [facility] MCV (RBC) [Entitic vol] 101.4 fL High 80.0 - 100.0 fL [facility] Monocytes (Bld) [#/Vol] 0.47 10*3/uL <0.87 k/uL [facility] Monocytes/100 WBC (Bld) 9.3 % [facility] Neutrophils (Bld) [#/Vol] 3.75 10*3/uL 1.45 - 7.50 k/uL [facility] Neutrophils/100 WBC (Bld) 74.4 % [facility] Nucleated RBC (Bld) [#/Vol] <0.01 k/uL [facility] Nucleated RBC/100 WBC (Bld) [Ratio] 0.0 /100 WBC [facility] Platelet mean volume (Bld) [Entitic vol] 10.0 fL 9.0 - 12.7 fL [facility] Platelets (Bld) [#/Vol] 237 10*3/uL 150 - 400 k/uL [facility] RBC (Bld) [#/Vol] 4.24 10*6/uL 4.20 - 6.0 0 m/uL [facility] WBC (Bld) [#/Vol] 5.04 10*3/uL 3.70 - 11. 00 k/uL [facility] Basophils (Bld) [#/Vol] 0.04 10*3/uL Normal <0.11 [facility] Comment on above: Order Comment: Speci men Type: BLOOD SPECIMENOrdering Facility: [facility] Address: [address] [phone] Performed By: #### 5 7021-8 ####[facility] LABCLIA [id number] [place] [address] [place] Basophils/100 WBC (Bld) 0.8 % Normal [facility] Comment on above: Order Comment: Speci men Type: BLOOD SPECIMENOrdering Facility: [facility] Address: [address] [place], [place] [address] Performed By: #### 5 7021-8 ####[facility] LABCLIA [id number] [place] [address] [place] Differential cell count method Nom (Bld) Auto Normal [facility] Comment on above: Order Comment: Speci men Type: BLOOD SPECIMENOrdering Facility: [facility] Address: [address] [place], [place] [address] Performed By: #### 5 7021-8 ####[facility] LABCLIA [id number] [place] [address] [place] Eosinophils (Bld) [#/Vol] 0.16 10*3/uL Normal <0.46 [facility] Comment on above: Order Comment: Speci men Type: BLOOD SPECIMENOrdering Facility: [facility] Address: [address] [place], [place] [address] Performed By: #### 5 7021-8 ####[facility] LABCLIA [id number] [place] [address] [place] Eosinophils/100 WBC (Bld) 3.2 % Normal [facility] Comment on above: Order Comment: Speci men Type: BLOOD SPECIMENOrdering Facility: [facility] Address: [address] [place], [place] [address] Performed By: #### 5 7021-8 ####[facility] LABCLIA [id number] [place] [address] [place] Erythrocyte distribution width (RBC) [Ratio] 12.8 % Normal 11.5-15.0 [facility] Comment on above: Order Comment: Speci men Type: BLOOD SPECIMENOrdering Facility: [facility] Address: [address] [place], [place] [address] Performed By: #### 5 7021-8 ####[facility] LABCLIA [id number] [place] [address] [place] Hematocrit (Bld) [Volume fraction] 43.0 % Normal 39.0-51.0 [facility] Comment on above: Order Comment: Speci men Type: BLOOD SPECIMENOrdering Facility: [facility] Address: [address] [place] [address] Performed By: #### 5 7021-8 ####[facility] LABCLIA [id number] [place] [address] [place] Hemoglobin (Bld) [Mass/Vol] 14.6 g/dL Normal 13.0-17.0 [facility] Comment on above: Order Comment: Speci men Type: BLOOD SPECIMENOrdering Facility: [facility] Address: [address] [place] [address] Performed By: #### 5 7021-8 ####[facility] LABCLIA [id number] [place] [address] [place] Immature granulocytes (Bld) [#/Vol] 10*3/uL Normal <0.10 [facility] Comment on above: Order Comment: Speci men Type: BLOOD SPECIMENOrdering Facility: [facility] Address: [address] [place] [address] Performed By: #### 5 7021-8 ####[facility] LABCLIA [id number] [place] [address] [place] Immature granulocytes/100 WBC (Bld) 0.4 % Normal [facility] Comment on above: Order Comment: Speci men Type: BLOOD SPECIMENOrdering Facility: [facility] Address: [address] [place] [address] Performed By: #### 5 7021-8 ####[facility] LABCLIA [id number] [place] [address] [place] Lymphocytes (Bld) [#/Vol] 0.60 10*3/uL Low 1.00-4.00 [facility] Comment on above: Order Comment: Speci men Type: BLOOD SPECIMENOrdering Facility: [facility] Address: [address] Performed By: #### 5 7021-8 ####[facility] LABIA [id number] [address] [place] [facility] Lymphocytes/100 WBC (Bld) 11.9 % Normal [facility] Comment on above: Order Comment: Speci men Type: BLOOD SPECIMENOrdering Facility: [facility] Address: [address] Performed By: #### 5 7021-8 ####[facility] LABIA [id number] [place] [address] [place] MCH (RBC) [Entitic mass] 34.4 pg High 26.0-34.0 [facility] Comment on above: Order Comment: Speci men Type: BLOOD SPECIMENOrdering Facility: [facility] Address: [address] Performed By: #### 5 7021-8 ####[facility] LABIA [id number] [address] [place] MCHC (RBC) [Mass/Vol] 34.0 g/dL Normal 30.5-36.0 [facility] Comment on above: Order Comment: Speci men Type: BLOOD SPECIMENOrdering Facility: [facility] Address: [address] Performed By: #### 5 7021-8 ####[facility] LABIA [id number] [place] [address] [place] MCV (RBC) [Entitic vol] 101.4 fL High 80.0-100.0 [facility] Comment on above: Order Comment: Speci men Type: BLOOD SPECIMENOrdering Facility: [facility] Address: [address] [place], [place] [address] Performed By: #### 5 7021-8 ####[facility] LABCLIA [id number] [place] [address] [place] Monocytes (Bld) [#/Vol] 0.47 10*3/uL Normal <0.87 [facility] Comment on above: Order Comment: Speci men Type: BLOOD SPECIMENOrdering Facility: [facility] Address: [address] [place] [address] Performed By: #### 5 7021-8 ####[facility] LABCLIA [id number] [place] [address] [place] Monocytes/100 WBC (Bld) 9.3 % Normal [facility] Comment on above: Order Comment: Speci men Type: BLOOD SPECIMENOrdering Facility: [facility] Address: [address] [place] [address] Performed By: #### 5 7021-8 ####[facility] LABCLIA [id number] [place] [address] [place] Neutrophils (Bld) [#/Vol] 3.75 10*3/uL Normal 1.45-7.50 [facility] Comment on above: Order Comment: Speci men Type: BLOOD SPECIMENOrdering Facility: [facility] Address: [address] [place] [address] Performed By: #### 5 7021-8 ####[facility] LABCLIA [id number] [place] [address] [place] Neutrophils/100 WBC (Bld) 74.4 % Normal [facility] Comment on above: Order Comment: Speci men Type: BLOOD SPECIMENOrdering Facility: [facility] Address: [address] [place] [address] Performed By: #### 5 7021-8 ####[facility] LABCLIA [id number] [place] [address] [place] Nucleated RBC (Bld) [#/Vol] 10*3/uL Normal <0.01 [facility] Comment on above: Order Comment: Speci men Type: BLOOD SPECIMENOrdering Facility: [facility] Address: [address] [address] Performed By: #### 5 7021-8 ####[facility] LABIA [id number] [place] [address] [place] Nucleated RBC/100 WBC (Bld) [Ratio] 0.0 /100 WBC Normal [facility] Comment on above: Order Comment: Speci men Type: BLOOD SPECIMENOrdering Facility: [facility] Address: [address] Performed By: #### 5 7021-8 ####[facility] LABIA [id number] [place] [address] [place] Platelet mean volume (Bld) [Entitic vol] 10.0 fL Normal 9.0-12.7 [facility] Comment on above: Order Comment: Speci men Type: BLOOD SPECIMENOrdering Facility: [facility] Address: [address] [place], [place] [address] Performed By: #### 5 7021-8 ####[facility] LABIA [id number] [place] [address] [place] Platelets (Bld) [#/Vol] 237 10*3/uL Normal 150-400 [facility] Comment on above: Order Comment: Speci men Type: BLOOD SPECIMENOrdering Facility: [facility] Address: [address] Performed By: #### 5 7021-8 ####[facility] LABIA [id number] [place] [address] [place] RBC (Bld) [#/Vol] 4.24 10*6/uL Normal 4.20-6.00 [facility] Comment on above: Order Comment: Speci men Type: BLOOD SPECIMENOrdering Facility: [facility] Address: [address] Performed By: #### 5 7021-8 ####[facility] LABCLIA [id number] [address] OF [facility] WBC (Bld) [#/Vol] 5.04 10*3/uL Normal 3.70-11.00 [facility] Comment on above: Order Comment: Speci men Type: BLOOD SPECIMENOrdering Facility: [facility] Address: [address] [place], [place] [address] Performed By: #### 5 7021-8 ####[facility] LABIA [id number] [place] [address] [facility] Comprehensive metabolic 2000 panelon 10-28-2022 Albumin [Mass/Vol] 4.8 g/dL Normal 3.9-4.9 [facility] Comment on above: Order Comment: Speci men Type: BLOOD SPECIMENOrdering Facility: [facility] Address: [address] [place] [address] Performed By: #### 2 4323-8 ####[facility] LABIA [id number] [address] STATES OF [facility] ALP [Catalytic activity/Vol] 81 U/L Normal 38-113 [facility] Comment on above: Order Comment: Speci men Type: BLOOD SPECIMENOrdering Facility: [facility] Address: [address] [place] [address] Performed By: #### 2 4323-8 ####[facility] LABIA [id number] [address] STATES OF [facility] ALT [Catalytic activity/Vol] 28 U/L Normal 10-54 [facility] Comment on above: Order Comment: Speci men Type: BLOOD SPECIMENOrdering Facility: [facility] Address: [address] [place] [address] Performed By: #### 2 4323-8 ####[facility] LABCLIA [id number] [address] [id number] [address] [place] Anion gap [Moles/Vol] 12 mmol/L Normal 9-18 [facility] Comment on above: Order Comment: Speci men Type: BLOOD SPECIMENOrdering Facility: [facility] Address: [address] [address] Performed By: #### 2 4323-8 ####[facility] LABCLIA [id number] [place] [address] [place] AST [Catalytic activity/Vol] 34 U/L Normal 14-40 [facility] Comment on above: Order Comment: Speci men Type: BLOOD SPECIMENOrdering Facility: [facility] Address: [address] [place] [address] Performed By: #### 2 4323-8 ####[facility] LABCL[facility] [id number] [place] [address] [place] Bilirubin [Mass/Vol] 0.6 mg/dL Normal 0.2-1.3 [facility] Comment on above: Order Comment: Speci men Type: BLOOD SPECIMENOrdering Facility: [facility] Address: [address] [place], [place] [address] Performed By: #### 2 4323-8 ####[facility] LABCLIA [id number] [place] [address] [place] Calcium [Mass/Vol] 9.8 mg/dL Normal 8.5-10.2 [facility] Comment on above: Order Comment: Speci men Type: BLOOD SPECIMENOrdering Facility: [facility] Address: [address] Performed By: #### 2 4323-8 ####[facility] LABCLIA [id number] [place] [address] [place] Chloride [Moles/Vol] 102 mmol/L Normal 97-105 [facility] Comment on above: Order Comment: Speci men Type: BLOOD SPECIMENOrdering Facility: [facility] Address: [address] Performed By: #### 2 4323-8 ####[facility] LABCL[facility] [id number] [place] [address] [place] CO2 [Moles/Vol] 25 mmol/L Normal 22-30 [facility] Comment on above: Order Comment: Speci men Type: BLOOD SPECIMENOrdering Facility: [facility] Address: [address] [address] Performed By: #### 2 4323-8 ####[facility] LABCLIA [id number] [place] [address] [place] Creatinine [Mass/Vol] 0.89 mg/dL Normal 0.73-1.22 [facility] Comment on above: Order Comment: Speci men Type: BLOOD SPECIMENOrdering Facility: [facility] Address: [address] [place] [address] Performed By: #### 2 4323-8 ####[facility] LABIA [id number] [place] [address] [place] ESTIMATED GLOMERULAR FILTRATION RATE 105 mL/min/1.73m??? Normal >=60 [facility] Comment on above: Order Comment: Speci men Type: BLOOD SPECIMENOrdering Facility: [facility] Address: [address] [place] [address] Result Comment: Tanya mated Glomerular Filtration Rate [...] actual GFR. Performed By: #### 2 4323-8 ####[facility] LABCLIA [id number] [place] [address] [place] Glucose [Mass/Vol] 78 mg/dL Normal 74-99 [facility] Comment on above: Order Comment: Speci men Type: BLOOD SPECIMENOrdering Facility: [facility] Address: [address] [place] [address] Result Comment: The [place] [employer] (ADA) provides guidance for cutoff [...] Standards of Medical Care in Diabetes 2016, [place] [employer]. Diabetes Care. 2016.39(Suppl 1). Performed By: #### 2 4323-8 ####[facility] LABCL[facility] [id number] [place] [address] [place] Potassium [Moles/Vol] 4.1 mmol/L Normal 3.7-5.1 [facility] Comment on above: Order Comment: Speci men Type: BLOOD SPECIMENOrdering Facility: [facility] Address: [address] [address] Performed By: #### 2 4323-8 ####[facility]CL[facility] [id number] [place] [address] [place] Protein [Mass/Vol] 7.9 g/dL Normal 6.3-8.0 [facility] Comment on above: Order Comment: Speci men Type: BLOOD SPECIMENOrdering Facility: [facility] Address: [address] [address] Performed By: #### 2 4323-8 ####[facility]CL[facility] [id number] [place] [address] [place] Sodium [Moles/Vol] 139 mmol/L Normal 136-144 [facility] Comment on above: Order Comment: Speci men Type: BLOOD SPECIMENOrdering Facility: [facility] Address: [address] [address] Performed By: #### 2 4323-8 ####[facility]CL[facility] [id number] [address] [place] [facility] Urea nitrogen [Mass/Vol] 15 mg/dL Normal 9-24 [facility] Comment on above: Order Comment: Speci men Type: BLOOD SPECIMENOrdering Facility: [facility] Address: [address] [address] Performed By: #### 2 4323-8 ####[facility]CL[facility] [id number] [address] [place] HISTORY PHYSICALon HISTORY PHYSICAL HNO ID: [id number] Author: Juliana Peterson APRN.TAHIRA Service: ? Author Type: Nurse Practitioner [...] fevers. Neuro: No history of TIA's, stroke, WARP SPLITTER tumor, impaired sensorium, hemiplegia, paraplegia or quadraplegia. No neurological symptoms or problems. Respiratory: No history of current cough or dyspnea, or pneumonia in the past 6 weeks. No history of respiratory/pulmonary symptoms or problems. Cardiovascular: Negative for Recent SD, Angina, Chest Pain, HTN, PVD +DVT 8 years ago +Endocarditis > 15 years ago +Tricuspid regurgitation GI: See HPI (more content not included)... Normal [facility] TYPE AND SCREEN,30 DAYon ABO B [facility] HIstorical Ab Scr Status Positive Abnormal [facility] Rh Nom (Bld) Positive [facility] ABO B Normal [facility] Comment on above: Order Comment: Speci men Type: BLOOD SPECIMENOrdering Facility: [facility] Address: [address] [place] [address] Performed By: #### % ALESIA, [id number], [id number] ####CC MAIN BLOOD BANKCLIA [id number] [address] OF [facility] HISTORICAL AB SCR STATUS Positive Abnormal [facility] Comment on above: Order Comment: Speci men Type: BLOOD SPECIMENOrdering Facility: [facility] Address: [address] [address] Performed By: #### % ALESIA, [id number], [id number] ####[facility] MAIN BLOOD BANKCLIA [id number] [address] OF [place] Rh Nom (Bld) Positive Normal [facility] Comment on above: Order Comment: Speci men Type: BLOOD SPECIMENOrdering Facility: [facility] Address: [address] [place] [address] Performed By: #### % ALESIA, [id number], [id number] ####[facility] MAIN BLOOD BANKCLIA [id number] [place] [place] [address] [place] [address] ABD/PEL W IVCONon 022 CT ABD/PEL W IVCON * * *Final Report* * * DATE OF EXAM: Oct 17 2022 2:19PM [facility] 0530 - CT ABD/PEL W IVCON / [...] appear stable. Mild multichamber cardiomegaly is noted. Commercial Intern (topogram) images: No additional findings. IMPRESSION: Stable [...] any questions regarding this interpretation, please call [phone]. If you are unable to reach us at the number above, please feel free to contact [facility] at [phone]. [id number] Normal [facility] ANES POSTPROC EVALon 022 ANES POSTPROC EVAL HNO ID: [id number] Author: Charo Leblanc MD Service: Anesthesiology Author Type: Physician Type: Anesthesia Postprocedure Evaluation Filed: 10/13/2022 4:43 PM Note Text: POST ANESTHESIA EVALUATION NOTE : 1975 Procedure Summary Date: 10/13/22 Room / Location: Procedures Anesthesia Start: 1453 Anesthesia Stop: 1509 Procedure: SIGMOIDOSCOPY Diagnosis: Follow-up examination after colorectal surgery Rectal cancer (HCC) (Personal history of malignant rectal neoplasm) Scheduled Providers: Ana Enriquez MD; Radha Sharp RN; Charo Leblanc MD; Camelia Thomason APRN.SPEECH PATHOLOGY SUPERVISOR Responsible Provider: Charo Leblanc MD Anesthesia Type: [...] October 13, 2022 TIME: 4:43 PM CSN: [id number] [facility] ANES PRE-OPon 10-13-2022 ANES PRE-OP HNO ID: [id number] Author: Charo Leblanc MD Service: Anesthesiology Author Type: Physician Type: Anesthesia Preprocedure Evaluation Filed: 10/13/2022 2:46 PM Note Text: ANESTHESIOLOGY DAY OF SURGERY NOTE : 1975 Procedure Information Date/Time: 10/13/22 1400 Scheduled providers: Ana Enriquez MD; Radha Sharp RN; Charo Leblanc MD; Camelia Thomason APRN.SPEECH PATHOLOGY SUPERVISOR Procedure: SIGMOIDOSCOPY Location: Procedures Estimated body mass [...] and consent discussed: yes. Patient / Responsible Green Party agrees to proceed: yes Patient / Surrogate [...] contains updated (more content not included)... Normal [facility] Flexible Sigmoidoscopyon Flexible sigmoidoscopy [facility] Gastrointestinal Endoscopy Patient Name: Hoang White Procedure Date: 10/13/2022 2:29 PM Date of : 1975 Admit Type: Outpatient Age: 47 Room: [place] [address] Gender: Male Note Status: Finalized Attending MD: Ana Enriquez MD Procedure: Flexible Sigmoidoscopy Indications: Personal history of malignant rectal neoplasm Providers: Ana Enriquez MD Patient Profile: Last Colonoscopy: 2021. Referring Physician: Ana Enriquez MD (Referring MD) Medicines: Monitored Anesthesia [...] Blood Loss: Estimated blood loss: none. Normal [facility] HISTORY PHYSICALon HISTORY PHYSICAL HNO ID: [id number] Author: Kaylin Zamora MD Service: Colorectal Author Type: Resident Type: HANDP Filed: 10/13/2022 2:29 PM Note Text: -------- Attestation signed by Ana Enriquez MD at 10/13/2022 2:45 PM [facility] STAFF PHYSICIAN NOTE OF PERSONAL [...] SIGNATURE: Kaylin Zamora MD PATIENT NAME: Hoang Estrada DATE: October 13, 2022 TIME: 2:29 PM Normal [facility] SIGMOIDOSCOPYon 10-13-2022 [facility] CNPLivier 10-11-2022 CNPN Telephone ([id number]) -------- HOANG WHITE ([id number]) 1975 M Date Time Provider Department 10/11/22 ANA ENRIQUEZ [id number] During your visit today, we recorded the [...] Fully Assessed Reason for Visit: Anesthesia Consult [3914] Cmt: Patient not scheduled PACC Prescriptions as [...] Encounter Status:Closed by ANTHONY CARABALLO on 10/11/22 [facility]2022 [facility] Telephone ([facility]) -------- HOANG WHITE ([id number]) 1975 M Date Time Provider Department 10/05/22 ANA ENRIQUEZ [facility] During your visit today, we recorded the following information about you: Kelsea Daniel RN 10/05/2022 10:16 AM Signed Call placed to patient's significant other Ghazala at [phone]. No answer, left message re: date of flex sig 10/13, date of abdomen/pelvis 10/17, and OR date of 11/07/2022. Office number provided for call back to discuss further Allergies As of Date: 10/05/2022 (No Known Allergies) Date Reviewed: 10/04/2022 Reviewed by: Molly Phoenix MA - Fully Assessed Reason for Visit: Dietitian Teaching - Other [[id number]] Prescriptions as of 10/05/2022 - iv contrast [...] Encounter Status:Closed by KELSEA DANIEL on 10/05/22 [facility] CNOVflores 10-04-2022 CNOV Office Visit ([facility] ) -------- HOANG WHITE ([id number]) 1975 M Date Time Provider Department 10/04/22 4:00 PM ANA ENRIQUEZ [facility] During your visit today, we recorded the [...] date/level: 05/24/22- 5.9 Clinical stage: stage IIIC, [id number] Treatment: 5000 cGy in 25 fractions, 2 [...] Take wellbutr (more content not included)... [facility] -------- HOANG WHITE ([id number]) 1975 M Date Time Provider Department 09/27/22 [...] Fully Assessed Reason for Visit: Care Coordination [1667] Cmt: MRI results Prescriptions as of 09/27/2022 [...] Status:Closed by MEGHAN PICHARDO on 09/27/22 Normal [facility] CREATININE, BLOOD (POC)on Creatinine [Mass/Vol] 1.00 mg/dL 0.7 - 1.4 mg/dL [facility] eGFR (POCT) [facility] CHEST W IVCONon CT CHEST W [...] 1.2 cm hypodense left adrenal nodule, stable Commercial Intern (topogram) images: No additional findings. IMPRESSION: SCATTERED LESS THAN 0.5 CM LUNG NODULES BILATERALLY, STABLE. NO SIGNIFICANT INTERVAL CHANGE SINCE 01/13/2022. Human Performance Consultant: PSCB Transcribe Date/Time: Sep 26 2022 5:30P Dictated by : BEATRIS MONROE MD This examination was interpreted and the report reviewed and electronically signed by: BEATRIS MONROE MD on Sep 26 2022 5:40PM EST [id number] Normal [facility] MRI RECTUM WO/W IVCONon 11-2 MRI RECTUM WO/W IVCON * * *Final [...] nodes: No. Suspicious Extramesorectal lymph nodes: No. Human Performance Consultant: PSCB Transcribe Date/Time: Sep 26 2022 3:20P Dictated by : GABY SHARIF MD This examination was interpreted and the report reviewed and electronically signed by: GABY SHARIF MD on Sep 26 2022 3:41PM EST [id number] Normal [facility] NURSING PROGon 09-26-2022 NURSING PROG HNO ID: [id number] Author: Kylah Butler RN Service: Nursing Author [...] Please leave in IV for MRI at [facility]. SIGNATURE: Kylah Butler RN PATIENT NAME: Hoang White DATE: September 26, 2022 TIME: 1:40 PM [facility] 09-23-2022 [facility] Telephone ([place]) -------- ESTRADA,HOANG ([id number]) 1975 M Date Time Provider Department 09/23/22 SHERON HENDRICKSON) [facility] During your visit today, we recorded [...] Encounter Status:Closed by SHERON NAQVI on 09/23/22 [facility] -------- HOANG WHITE ([id number]) 1975 M Date Time Provider Department 08/31/22 MARY SOLORIO During your visit today, we recorded the following information about you: Catalina Muhammad 08/31/2022 10:39 AM Signed IRB # [id number] Tight perioperative blood pressure management to reduce serious cardiovascular, renal, and cognitive complications: The GUARDIAN trial PI: Mary Solorio MD, LUCIA, FASA. Outcomes Research Department. [facility]. [facility]. This is a research study note. Patient assessments recorded here should not guide either clinical care or clinical decision-making. Hoang White was unavailable at the listed phone number. A voice message was left. We will attempt to contact the patient again in 6 months to complete the 12 month follow up. Catalina Muhammad Research Review Appraiser Outcomes Research [facility] Allergies As of Date: 08/31/2022 (No [...] Status:Closed by CATALINA MUHAMMAD on 08/31/22 Normal [facility] CBC W Auto Differential pane l (Bld)on 08-26-2022 Basophils (Bld) [#/Vol] 10*3/uL Normal <0.11 [facility] Comment on above: Order Comment: Speci men Type: BLOOD SPECIMENOrdering Facility: [facility] Address: [address] [place] [address] Performed By: #### 5 7021-8 ####[facility] LABCLIA [id number] [place] [address] Basophils/100 WBC (Bld) 0.5 % Normal [facility] Comment on above: Order Comment: Speci men Type: BLOOD SPECIMENOrdering Facility: [facility] Address: [address] [place] [address] Performed By: #### 5 7021-8 ####[facility] LABCLIA [id number] [place] [address] Differential cell count method Nom (Bld) Auto Normal [facility] Comment on above: Order Comment: Speci men Type: BLOOD SPECIMENOrdering Facility: [facility] Address: [address] [address] Performed By: #### 5 7021-8 ####[facility] LABIA [id number] [place] [address] Eosinophils (Bld) [#/Vol] 0.11 10*3/uL Normal <0.46 [facility] Comment on above: Order Comment: Speci men Type: BLOOD SPECIMENOrdering Facility: [facility] Address: [address] [place] [address] Performed By: #### 5 7021-8 ####[facility] LABCLIA [id number] [place] [address] Eosinophils/100 WBC (Bld) 3.0 % Normal [facility] Comment on above: Order Comment: Speci men Type: BLOOD SPECIMENOrdering Facility: [facility] Address: [address] [place] [address] Performed By: #### 5 7021-8 ####[facility] LABCLIA [id number] [place] [address] Erythrocyte distribution width (RBC) [Ratio] 16.4 % High 11.5-15.0 [facility] Comment on above: Order Comment: Speci men Type: BLOOD SPECIMENOrdering Facility: [facility] Address: [address] [place] [address] Performed By: #### 5 7021-8 ####[facility] LABCLIA [id number] [place] [address] Hematocrit (Bld) [Volume fraction] 36.0 % Low 39.0-51.0 [facility] Comment on above: Order Comment: Speci men Type: BLOOD SPECIMENOrdering Facility: [facility] Address: [address] [place] [address] Performed By: #### 5 7021-8 ####[facility] LABCLIA [id number] [place] [address] Hemoglobin (Bld) [Mass/Vol] 12.6 g/dL Low 13.0-17.0 [facility] Comment on above: Order Comment: Speci men Type: BLOOD SPECIMENOrdering Facility: [facility] Address: [address] [place] [address] Performed By: #### 5 7021-8 ####[facility] LABCLIA [id number] [place] [address] Immature granulocytes (Bld) [#/Vol] 0.03 10*3/uL Normal <0.10 [facility] Comment on above: Order Comment: Speci men Type: BLOOD SPECIMENOrdering Facility: [facility] Address: [address] [place] [address] Performed By: #### 5 7021-8 ####[facility] LABCLIA [id number] [place] [address] Immature granulocytes/100 WBC (Bld) 0.8 % Normal [facility] Comment on above: Order Comment: Speci men Type: BLOOD SPECIMENOrdering Facility: [facility] Address: [address] [place] [address] Performed By: #### 5 7021-8 ####[facility] LABCLIA [id number] [place] [address] Lymphocytes (Bld) [#/Vol] 0.44 10*3/uL Low 1.00-4.00 [facility] Comment on above: Order Comment: Speci men Type: BLOOD SPECIMENOrdering Facility: [facility] Address: [address] [place] [address] Performed By: #### 5 7021-8 ####[facility] LABIA [id number] [place] [address] Lymphocytes/100 WBC (Bld) 11.8 % Normal [facility] Comment on above: Order Comment: Speci men Type: BLOOD SPECIMENOrdering Facility: [facility] Address: [address] [place] [address] Performed By: #### 5 7021-8 ####[facility] LABIA [id number] [place] [address] MCH (RBC) [Entitic mass] 33.2 pg Normal 26.0-34.0 [facility] Comment on above: Order Comment: Speci men Type: BLOOD SPECIMENOrdering Facility: [facility] Address: [address] [place] [address] Performed By: #### 5 7021-8 ####[facility] LABCLIA [id number] [place] [address] MCHC (RBC) [Mass/Vol] 35.0 g/dL Normal 30.5-36.0 [facility] Comment on above: Order Comment: Speci men Type: BLOOD SPECIMENOrdering Facility: [facility] Address: [address] [place] [address] Performed By: #### 5 7021-8 ####[facility] LABCLIA [id number] [place] [address] MCV (RBC) [Entitic vol] 94.7 fL Normal 80.0-100.0 [facility] Comment on above: Order Comment: Speci men Type: BLOOD SPECIMENOrdering Facility: [facility] Address: [address] [place] [address] Performed By: #### 5 7021-8 ####[facility] LABCLIA [id number] [place] [address] Monocytes (Bld) [#/Vol] 0.48 10*3/uL Normal <0.87 [facility] Comment on above: Order Comment: Speci men Type: BLOOD SPECIMENOrdering Facility: [facility] Address: [address] [place] [address] Performed By: #### 5 7021-8 ####[facility] LABCLIA [id number] [place] [address] Monocytes/100 WBC (Bld) 12.9 % Normal [facility] Comment on above: Order Comment: Speci men Type: BLOOD SPECIMENOrdering Facility: [facility] Address: [address] [place] [address] Performed By: #### 5 7021-8 ####[facility] LABCLIA [id number] [place] [address] Neutrophils (Bld) [#/Vol] 2.64 10*3/uL Normal 1.45-7.50 [facility] Comment on above: Order Comment: Speci men Type: BLOOD SPECIMENOrdering Facility: [facility] Address: [address] [place] [address] Performed By: #### 5 7021-8 ####[facility] LABCLIA [id number] [place] [address] Neutrophils/100 WBC (Bld) 71.0 % Normal [facility] Comment on above: Order Comment: Speci men Type: BLOOD SPECIMENOrdering Facility: [facility] Address: [address] [place] [address] Performed By: #### 5 7021-8 ####[facility] LABCLIA [id number] [place] [address] Nucleated RBC (Bld) [#/Vol] 10*3/uL Normal <0.01 [facility] Comment on above: Order Comment: Speci men Type: BLOOD SPECIMENOrdering Facility: [facility] Address: [address] [place], [place] [address] Performed By: #### 5 7021-8 ####[facility] LABCLIA [id number] [place] [address] Nucleated RBC/100 WBC (Bld) [Ratio] 0.0 /100 WBC Normal [facility] Comment on above: Order Comment: Speci men Type: BLOOD SPECIMENOrdering Facility: [facility] Address: [address] [place], [place] [address] Performed By: #### 5 7021-8 ####[facility] LABCLIA [id number] [place] [address] Platelet mean volume (Bld) [Entitic vol] 9.7 fL Normal 9.0-12.7 [facility] Comment on above: Order Comment: Speci men Type: BLOOD SPECIMENOrdering Facility: [facility] Address: [address] [place], [place] [address] Performed By: #### 5 7021-8 ####[facility] LABCLIA [id number] [place] [address] Platelets (Bld) [#/Vol] 178 10*3/uL Normal 150-400 [facility] Comment on above: Order Comment: Speci men Type: BLOOD SPECIMENOrdering Facility: [facility] Address: [address] [place] [address] Performed By: #### 5 7021-8 ####[facility] LABCLIA [id number] [place] [address] RBC (Bld) [#/Vol] 3.80 10*6/uL Low 4.20-6.00 [facility] Comment on above: Order Comment: Speci men Type: BLOOD SPECIMENOrdering Facility: [facility] Address: [address] [place] [address] Performed By: #### 5 7021-8 ####[facility] LABCLIA [id number] [place] [address] WBC (Bld) [#/Vol] 3.72 10*3/uL Normal 3.70-11.00 [facility] Comment on above: Order Comment: Speci men Type: BLOOD SPECIMENOrdering Facility: [facility] Address: [address] [place] [address] Performed By: #### 5 7021-8 ####[facility] LABCLIA [id number] [place] [address] Basophils (Bld) [#/Vol] <0.11 k/uL [facility] Basophils/100 WBC (Bld) 0.5 % [facility] Differential cell count method Nom (Bld) Auto [facility] Eosinophils (Bld) [#/Vol] 0.11 10*3/uL <0.46 k/uL [facility] Eosinophils/100 WBC (Bld) 3.0 % [facility] Erythrocyte distribution width (RBC) [Ratio] 16.4 % High 11.5 - 15.0 % [facility] Hematocrit (Bld) [Volume fraction] 36.0 % Low 39.0 - 51.0 % [facility] Hemoglobin (Bld) [Mass/Vol] 12.6 g/dL Low 13.0 - 17.0 g/dL [facility] Immature granulocytes (Bld) [#/Vol] 0.03 10*3/uL <0.10 k/uL [facility] Immature granulocytes/100 WBC (Bld) 0.8 % [facility] Lymphocytes (Bld) [#/Vol] 0.44 10*3/uL Low 1.00 - 4.00 k/uL [facility] Lymphocytes/100 WBC (Bld) 11.8 % [facility] MCH (RBC) [Entitic mass] 33.2 pg 26.0 - 34.0 pg [facility] MCHC (RBC) [Mass/Vol] 35.0 g/dL 30.5 - 36.0 g/dL [facility] MCV (RBC) [Entitic vol] 94.7 fL 80.0 - 100.0 fL [facility] Monocytes (Bld) [#/Vol] 0.48 10*3/uL <0.87 k/uL [facility] Monocytes/100 WBC (Bld) 12.9 % [facility] Neutrophils (Bld) [#/Vol] 2.64 10*3/uL 1.45 - 7.50 k/uL [facility] Neutrophils/100 WBC (Bld) 71.0 % [facility] Nucleated RBC (Bld) [#/Vol] <0.01 k/uL [facility] Nucleated RBC/100 WBC (Bld) [Ratio] 0.0 /100 WBC [facility] Platelet mean volume (Bld) [Entitic vol] 9.7 fL 9.0 - 12.7 fL [facility] Platelets (Bld) [#/Vol] 178 10*3/uL 150 - 400 k/uL [facility] RBC (Bld) [#/Vol] 3.80 10*6/uL Low 4.20 - 6.0 0 m/uL [facility] WBC (Bld) [#/Vol] 3.72 10*3/uL 3.70 - 11. 00 k/uL [facility] CNOVSPon 08-26-2022 CNOVSP Visit (SP) Office ([place]) -------- HOANG WHITE ([id number]) 1975 M Date Time Provider Department 08/26/22 11:00 AM TEMI DEAN During your visit today, we recorded the following information about you: Temperature Pulse Respiration Blood pressure 97.2 degrees 73/minute 16/minute 102/74 Weight Height 60.4 kg 1.724 m Temi Dean PA-C 08/26/2022 12:07 PM Signed PATIENT NAME: Hoang White CLINIC NO.: [id number] ATTENDING PHYSICIAN: Oscar Gonzalez MD DATE OF [...] 2. Severe TR ( ECHO 12/2021 at [facility]): - The left ventricle is normal in [...] Ref Rang (more content not included)... Normal [facility] CNPLivier 08-26-2022 CNPN Telephone (REFAIR) -------- HOANG WHITE ([id number]) 1975 M Date Time Provider Department 08/26/22 MARY SOLORIO During your visit today, we recorded the following information about you: Catalina Muhammad 08/26/2022 1:37 PM Signed IRB # [id number] Tight perioperative blood pressure management to reduce serious cardiovascular, renal, and cognitive complications: The GUARDIAN trial PI: Mary Solorio MD, LUCIA, FASA. Outcomes Research Department. Anesthesia [facility]. [facility]. This is a research study note. Patient [...] the morning next week. Catalina Muhammad Research Review Appraiser Outcomes Research [facility] Allergies As of Date: 08/26/2022 (No [...] positive [R76.8] (more content not included)... Normal [facility] metabolic 2000 panelon 08-26-2022 Albumin [Mass/Vol] 4.2 g/dL Normal 3.9-4.9 [facility] Comment on above: Order Comment: Speci men Type: BLOOD SPECIMENOrdering Facility: [facility] Address: [address] [place] [address] Performed By: #### 2 4323-8 ####[facility] LABCLIA [id number] [place] [address] ALP [Catalytic activity/Vol] 71 U/L Normal 38-113 [facility] Comment on above: Order Comment: Speci men Type: BLOOD SPECIMENOrdering Facility: [facility] Address: [address] [place] [address] Performed By: #### 2 4323-8 ####[facility] LABCLIA [id number] [place] [address] ALT [Catalytic activity/Vol] 13 U/L Normal 10-54 [facility] Comment on above: Order Comment: Speci men Type: BLOOD SPECIMENOrdering Facility: [facility] Address: [address] [place] [address] Performed By: #### 2 4323-8 ####[facility] LABCLIA [id number] [place] [address] Anion gap [Moles/Vol] 8 mmol/L Low 9-18 [facility] Comment on above: Order Comment: Speci men Type: BLOOD SPECIMENOrdering Facility: [facility] Address: [address] [place] [address] Performed By: #### 2 4323-8 ####[facility] LABIA [id number] [place] [address] AST [Catalytic activity/Vol] 27 U/L Normal 14-40 [facility] Comment on above: Order Comment: Speci men Type: BLOOD SPECIMENOrdering Facility: [facility] Address: [address] [place] [address] Performed By: #### 2 4323-8 ####[facility] LABCLIA [id number] [place] [address] Bilirubin [Mass/Vol] 0.4 mg/dL Normal 0.2-1.3 [facility] Comment on above: Order Comment: Speci men Type: BLOOD SPECIMENOrdering Facility: [facility] Address: [address] [place] [address] Performed By: #### 2 4323-8 ####[facility] LABCLIA [id number] [place] [address] Calcium [Mass/Vol] 9.1 mg/dL Normal 8.5-10.2 [facility] Comment on above: Order Comment: Speci men Type: BLOOD SPECIMENOrdering Facility: [facility] Address: [address] [place] [address] Performed By: #### 2 4323-8 ####[facility] LABCLIA [id number] [place] [address] Chloride [Moles/Vol] 108 mmol/L High 97-105 [facility] Comment on above: Order Comment: Speci men Type: BLOOD SPECIMENOrdering Facility: [facility] Address: [address] [place] [address] Performed By: #### 2 4323-8 ####[facility] LABCLIA [id number] [place] [address] CO2 [Moles/Vol] 25 mmol/L Normal 22-30 [facility] Comment on above: Order Comment: Speci men Type: BLOOD SPECIMENOrdering Facility: [facility] Address: [address] [place] [address] Performed By: #### 2 4323-8 ####[facility] LABCLIA [id number] [place] [address] Creatinine [Mass/Vol] 0.67 mg/dL Low 0.73-1.22 [facility] Comment on above: Order Comment: Gerry ibrahim Type: BLOOD SPECIMENOrdering Facility: [facility] Address: [address] [id number] Performed By: #### 2 4323-8 ####[facility] LABCLIA [id number] [place] [address] ESTIMATED GLOMERULAR FILTRATION RATE 114 mL/min/1.73m??? Normal >=60 [facility] Comment on above: Order Comment: Gerry ibrahim Type: BLOOD SPECIMENOrdering Facility: [facility] Address: [address] [place] [address] Result Comment: Tanya mated Glomerular Filtration Rate [...] actual GFR. Performed By: #### 2 4323-8 ####[facility] LABCLIA [id number] [place] [address] Glucose [Mass/Vol] 103 mg/dL High 74-99 [facility] Comment on above: Order Comment: Gerry alexandria Type: BLOOD SPECIMENOrdering Facility: [facility] Address: [address] [place] [address] Result Comment: The [place] [employer] (ADA) provides guidance for cutoff [...] Standards of Medical Care in Diabetes 2016, [place] [employer]. Diabetes Care. 2016.39(Suppl 1). Performed By: #### 2 4323-8 ####[facility] LABCLIA [id number] [place] [address] Potassium [Moles/Vol] 4.2 mmol/L Normal 3.7-5.1 [facility] Comment on above: Order Comment: Speci men Type: BLOOD SPECIMENOrdering Facility: [facility] Address: [address] [place] [address] Performed By: #### 2 4323-8 ####[facility] LABCLIA [id number] [place] [address] Protein [Mass/Vol] 6.8 g/dL Normal 6.3-8.0 [facility] Comment on above: Order Comment: Speci men Type: BLOOD SPECIMENOrdering Facility: [facility] Address: [address] [place] [address] Performed By: #### 2 4323-8 ####[facility] LABCLIA [id number] [place] [address] Sodium [Moles/Vol] 141 mmol/L Normal 136-144 [facility] Comment on above: Order Comment: Speci men Type: BLOOD SPECIMENOrdering Facility: [facility] Address: [address] [place] [address] Performed By: #### 2 4323-8 ####[facility] LABCLIA [id number] [place] [address] Urea nitrogen [Mass/Vol] 19 mg/dL Normal 9-24 [facility] Comment on above: Order Comment: Speci men Type: BLOOD SPECIMENOrdering Facility: [facility] Address: [address] [place] [address] Performed By: #### 2 4323-8 ####[facility] LABCLIA [id number] [place] [address] Albumin [Mass/Vol] 4.2 g/dL 3.9 - 4.9 g/dL [facility] ALP [Catalytic activity/Vol] 71 U/L 38 - 113 U/L [facility] ALT [Catalytic activity/Vol] 13 U/L 10 - 54 U/L [facility] Anion gap [Moles/Vol] 8 mmol/L Low 9 - 18 mmol/L [facility] AST [Catalytic activity/Vol] 27 U/L 14 - 40 U/L [facility] Bilirubin [Mass/Vol] 0.4 mg/dL 0.2 - 1.3 mg/dL [facility] Calcium [Mass/Vol] 9.1 mg/dL 8.5 - 10. 2 mg/dL [facility] Chloride [Moles/Vol] 108 mmol/L High 97 - 105 mmol/L [facility] CO2 [Moles/Vol] 25 mmol/L 22 - 30 mmol/L [facility] Creatinine [Mass/Vol] 0.67 mg/dL Low 0.73 - 1.22 mg/dL [facility] Estimated Glomerular Filtration Rate 114 mL/min/1.73m >=60 mL/min/1.73m [facility] Glucose [Mass/Vol] 103 mg/dL High 74 - 99 mg/dL [facility] Potassium [Moles/Vol] 4.2 mmol/L 3.7 - 5.1 mmol/L [facility] Protein [Mass/Vol] 6.8 g/dL 6.3 - 8.0 g/dL [facility] Sodium [Moles/Vol] 141 mmol/L 136 - 144 mmol/L [facility] Urea nitrogen [Mass/Vol] 19 mg/dL 9 - 24 mg/dL [facility] CNPLivier 08-25-2022 AMY Telephone (REF) -------- HOANG WHITE ([id number]) 1975 M Date Time Provider Department 08/25/22 MARY SOLORIO During your visit today, we recorded the following information about you: Catalina Muhammad 08/25/2022 12:36 PM Signed IRB # [id number] Tight perioperative blood pressure management to reduce serious cardiovascular, renal, and cognitive complications: The GUARDIAN trial PI: Mary Solorio MD, LUCIA, FASA. Outcomes Research Department. [facility]. [facility]. This is a research study note. Patient assessments recorded here should not guide either clinical care or clinical decision-making. Hoang White was unavailable at the listed phone number. A voice message was left. We will attempt to contact the patient again at a later date. Catalina Muhammad Research Review Appraiser Department of OUTCOMES RESEARCH [facility] Allergies As of Date: 08/25/2022 (No Known [...] Encounter Status:Closed by CATALINA MUHAMMAD on 08/25/22 [facility] CNPN Telephone (HEMASA) -------- HOANG WHITE ([id number]) 1975 M Date Time Provider Department 08/08/22 MEGHAN PICHARDO During your visit today, we recorded the following information about you: Meghan Pichardo RN 08/08/2022 9:32 AM Signed Call received from Sridevi at [facility] in [place] requesting ICD codes to use for pt's [...] Status:Closed by MEGHAN PICHARDO on 08/08/22 Normal [facility] CBC W Auto Differential pane l (Bld)on 08-05-2022 Basophils (Bld) [#/Vol] 0.03 10*3/uL Normal <0.11 [facility] Comment on above: Order Comment: Speci men Type: BLOOD SPECIMENOrdering Facility: [facility] Address: [address] [place] [address] Performed By: #### 5 7021-8 ####[facility] LABIA [id number] [place] [id number] Basophils/100 WBC (Bld) 0.8 % Normal [facility] Comment on above: Order Comment: Speci men Type: BLOOD SPECIMENOrdering Facility: [facility] Address: [address] [place] [address] Performed By: #### 5 7021-8 ####[facility] LABCLIA [id number] [place] [address] Differential cell count method Nom (Bld) Auto Normal [facility] Comment on above: Order Comment: Speci men Type: BLOOD SPECIMENOrdering Facility: [facility] Address: [address] [place] [address] Performed By: #### 5 7021-8 ####[facility] LABCLIA [id number] [place] [address] Eosinophils (Bld) [#/Vol] 0.20 10*3/uL Normal <0.46 [facility] Comment on above: Order Comment: Speci men Type: BLOOD SPECIMENOrdering Facility: [facility] Address: [address] [place] [address] Performed By: #### 5 7021-8 ####[facility] LABCLIA [id number] [place] [address] Eosinophils/100 WBC (Bld) 5.6 % Normal [facility] Comment on above: Order Comment: Speci men Type: BLOOD SPECIMENOrdering Facility: [facility] Address: [address] [place] [address] Performed By: #### 5 7021-8 ####[facility] LABCLIA [id number] [place] [address] Erythrocyte distribution width (RBC) [Ratio] 15.1 % High 11.5-15.0 [facility] Comment on above: Order Comment: Speci men Type: BLOOD SPECIMENOrdering Facility: [facility] Address: [address] [place] [address] Performed By: #### 5 7021-8 ####[facility] LABCLIA [id number] [place] [address] Hematocrit (Bld) [Volume fraction] 39.3 % Normal 39.0-51.0 [facility] Comment on above: Order Comment: Speci men Type: BLOOD SPECIMENOrdering Facility: [facility] Address: [address] [place] [address] Performed By: #### 5 7021-8 ####[facility] LABCLIA [id number] [place] [address] Hemoglobin (Bld) [Mass/Vol] 13.6 g/dL Normal 13.0-17.0 [facility] Comment on above: Order Comment: Speci men Type: BLOOD SPECIMENOrdering Facility: [facility] Address: [address] [place] [address] Performed By: #### 5 7021-8 ####[facility] LABCLIA [id number] [place] [address] IMMATURE GRAN % 0.3 % Normal [facility] Comment on above: Order Comment: Speci men Type: BLOOD SPECIMENOrdering Facility: [facility] Address: [address] [place] [address] Performed By: #### 5 7021-8 ####[facility] LABCLIA [id number] [place] [address] IMMATURE GRAN ABS <0.03 Normal <0.10 [facility] Comment on above: Order Comment: Speci men Type: BLOOD SPECIMENOrdering Facility: [facility] Address: [address] [place] [address] Performed By: #### 5 7021-8 ####[facility] LABCLIA [id number] [place] [address] Lymphocytes (Bld) [#/Vol] 0.56 10*3/uL Low 1.00-4.00 [facility] Comment on above: Order Comment: Speci men Type: BLOOD SPECIMENOrdering Facility: [facility] Address: [address] [place] [address] Performed By: #### 5 7021-8 ####[facility] LABCLIA [id number] [place] [address] Lymphocytes/100 WBC (Bld) 15.8 % Normal [facility] Comment on above: Order Comment: Speci men Type: BLOOD SPECIMENOrdering Facility: [facility] Address: [address] [place] [address] Performed By: #### 5 7021-8 ####[facility] LABCLIA [id number] [place] [address] MCH (RBC) [Entitic mass] 33.2 pg Normal 26.0-34.0 [facility] Comment on above: Order Comment: Speci men Type: BLOOD SPECIMENOrdering Facility: [facility] Address: [address] [place] [address] Performed By: #### 5 7021-8 ####[facility] LABCLIA [id number] [place] [address] MCHC (RBC) [Mass/Vol] 34.6 g/dL Normal 30.5-36.0 [facility] Comment on above: Order Comment: Speci men Type: BLOOD SPECIMENOrdering Facility: [facility] Address: [address] [place] [address] Performed By: #### 5 7021-8 ####[facility] LABCLIA [id number] [place] [address] MCV (RBC) [Entitic vol] 95.9 fL Normal 80.0-100.0 [facility] Comment on above: Order Comment: Speci men Type: BLOOD SPECIMENOrdering Facility: [facility] Address: [address] [place] [address] Performed By: #### 5 7021-8 ####[facility] LABIA [id number] [place] [address] Monocytes (Bld) [#/Vol] 0.43 10*3/uL Normal <0.87 [facility] Comment on above: Order Comment: Speci men Type: BLOOD SPECIMENOrdering Facility: [facility] Address: [address] [place] [address] Performed By: #### 5 7021-8 ####[facility] LABCLIA [id number] [place] [address] Monocytes/100 WBC (Bld) 12.1 % Normal [facility] Comment on above: Order Comment: Speci men Type: BLOOD SPECIMENOrdering Facility: [facility] Address: [address] [place] [address] Performed By: #### 5 7021-8 ####[facility] LABCLIA [id number] [place] [address] Neutrophils (Bld) [#/Vol] 2.31 10*3/uL Normal 1.45-7.50 [facility] Comment on above: Order Comment: Speci men Type: BLOOD SPECIMENOrdering Facility: [facility] Address: [address] [place] [address] Performed By: #### 5 7021-8 ####[facility] LABCLIA [id number] [place] [address] Neutrophils/100 WBC (Bld) 65.4 % Normal [facility] Comment on above: Order Comment: Speci men Type: BLOOD SPECIMENOrdering Facility: [facility] Address: [address] [place] [address] Performed By: #### 5 7021-8 ####[facility] LABCLIA [id number] [place] [address] Nucleated RBC (Bld) [#/Vol] 10*3/uL Normal <0.01 [facility] Comment on above: Order Comment: Speci men Type: BLOOD SPECIMENOrdering Facility: [facility] Address: [address] [place] [address] Performed By: #### 5 7021-8 ####[facility] LABCLIA [id number] [place] [address] Nucleated RBC/100 WBC (Bld) [Ratio] 0.0 /100 WBC Normal [facility] Comment on above: Order Comment: Speci men Type: BLOOD SPECIMENOrdering Facility: [facility] Address: [address] [place] [address] Performed By: #### 5 7021-8 ####[facility] LABCLIA [id number] [place] [address] Platelet mean volume (Bld) [Entitic vol] 9.8 fL Normal 9.0-12.7 [facility] Comment on above: Order Comment: Speci men Type: BLOOD SPECIMENOrdering Facility: [facility] Address: [address] [place] [address] Performed By: #### 5 7021-8 ####[facility] LABIA [id number] [place] [address] Platelets (Bld) [#/Vol] 160 10*3/uL Normal 150-400 [facility] Comment on above: Order Comment: Speci men Type: BLOOD SPECIMENOrdering Facility: [facility] Address: [address] [place] [address] Performed By: #### 5 7021-8 ####[facility] [id number] [place] [address] RBC (Bld) [#/Vol] 4.10 10*6/uL Low 4.20-6.00 [facility] Comment on above: Order Comment: Speci men Type: BLOOD SPECIMENOrdering Facility: [facility] Address: [address] [place] [address] Performed By: #### 5 7021-8 ####[facility] [id number] [place] [address] WBC (Bld) [#/Vol] 3.54 10*3/uL Low 3.70-11.00 [facility] Comment on above: Order Comment: Speci men Type: BLOOD SPECIMENOrdering Facility: [facility] Address: [address] [place] [address] Performed By: #### 5 7021-8 ####[facility] LABIA [id number] [place] [address] Basophils (Bld) [#/Vol] 0.03 10*3/uL <0.11 k/uL [facility] Basophils/100 WBC (Bld) 0.8 % [facility] Differential cell count method Nom (Bld) Auto [facility] Eosinophils (Bld) [#/Vol] 0.20 10*3/uL <0.46 k/uL [facility] Eosinophils/100 WBC (Bld) 5.6 % [facility] Erythrocyte distribution width (RBC) [Ratio] 15.1 % High 11.5 - 15.0 % [facility] Hematocrit (Bld) [Volume fraction] 39.3 % 39.0 - 51.0 % [facility] Hemoglobin (Bld) [Mass/Vol] 13.6 g/dL 13.0 - 17.0 g/dL [facility] Immature granulocytes (Bld) [#/Vol] <0.10 k/uL [facility] Immature granulocytes/100 WBC (Bld) 0.3 % [facility] Lymphocytes (Bld) [#/Vol] 0.56 10*3/uL Low 1.00 - 4.00 k/uL [facility] Lymphocytes/100 WBC (Bld) 15.8 % [facility] MCH (RBC) [Entitic mass] 33.2 pg 26.0 - 34.0 pg [facility] MCHC (RBC) [Mass/Vol] 34.6 g/dL 30.5 - 36.0 g/dL [facility] MCV (RBC) [Entitic vol] 95.9 fL 80.0 - 100.0 fL [facility] Monocytes (Bld) [#/Vol] 0.43 10*3/uL <0.87 k/uL [facility] Monocytes/100 WBC (Bld) 12.1 % [facility] Neutrophils (Bld) [#/Vol] 2.31 10*3/uL 1.45 - 7.50 k/uL [facility] Neutrophils/100 WBC (Bld) 65.4 % [facility] Nucleated RBC (Bld) [#/Vol] <0.01 k/uL [facility] Nucleated RBC/100 WBC (Bld) [Ratio] 0.0 /100 WBC [facility] Platelet mean volume (Bld) [Entitic vol] 9.8 fL 9.0 - 12.7 fL [facility] Platelets (Bld) [#/Vol] 160 10*3/uL 150 - 400 k/uL [facility] RBC (Bld) [#/Vol] 4.10 10*6/uL Low 4.20 - 6.0 0 m/uL [facility] WBC (Bld) [#/Vol] 3.54 10*3/uL Low 3.70 - 11. 00 k/uL [facility] CNCOon 08-05-2022 CNCO Letter Text Normal [facility] CNOVon 08-05-2022 CNOV Office Visit (RADTSA ) -------- HOANG WHITE ([id number]) 1975 M Date Time Provider Department 08/05/22 [...] 47-year-old gentleman recently diagnosed with stage IIIC, [id number] adenocarcinoma of the rectum status post colonoscopy [...] 24) Pre-t (more content not included)... Normal [facility] CNOVSPon 08-05-2022 CNOVSP Visit (SP) Office (HEMASA) -------- HOANG WHITE ([id number]) 1975 M Date Time Provider Department 08/05/22 9:45 AM OSCAR GONZALEZ During your visit today, we recorded the following information about you: Temperature Pulse Respiration Blood pressure 97.1 degrees 69/minute 16/minute 115/76 Weight Height 60.8 kg 1.724 m Oscar Gonzalez MD 08/05/2022 10:13 AM Signed PATIENT NAME: Hoang Estrada [facility] NO.: [id number] ATTENDING PHYSICIAN: Oscar Gonzalez MD DATE OF [...] 2. Severe TR ( ECHO 12/2021 at [facility]): - The left ventricle is normal in [...] Date Value more content not included)... Normal [facility] Redd 08-05-2022 CNPN Telephone (HEMASA) -------- ESTRADAHOANG COLEY ([id number]) 1975 M Date Time Provider Department 08/05/22 [...] Fully Assessed Reason for Visit: Care Coordination [3625] Cmt: Cold sensitivity questions Prescriptions as of [...] Encounter Status:Closed by MEGHAN PICHARDO on 08/05/22 [facility] Telephone (NCCAP) -------- HOANG WHITE ([id number]) 1975 M Date Time Provider Department 08/05/22 OSCAR GONZALEZ NCCLOIDA During your visit today, we recorded the following information about you: Indira Evans 08/05/2022 2:05 PM Signed Patient stopped up at front desk associate to see if there is anything we can do with the pain he is getting in his hands. He says he is getting a cold feeling he thinks from Chemo. If you can please call him today. Indira Montalvo Mallikamargarita Meghan Pichardo RN 08/05/2022 2:22 PM Signed Pt called and discussed this with him. Please refer to other telephone encounter. Meghan Pichardo RN Allergies As of Date: 08/05/2022 (No Known Allergies) Date Reviewed: 08/05/2022 Reviewed by: Bárbara Sexton MA - Fully Assessed Reason for Visit: Patient Question [3881] Prescriptions as of 08/08/2022 - Food Supplement, [...] Status:Closed by INDIRA EVANS on 08/08/22 Normal [facility] Comprehensive metabolic 2000 panelon 08-05-2022 Albumin [Mass/Vol] 4.0 g/dL Normal 3.9-4.9 [facility] Comment on above: Order Comment: Speci men Type: BLOOD SPECIMENOrdering Facility: [facility] Address: [address] [place] [address] Performed By: #### 2 4323-8 ####[facility] LABCLIA [id number] [place] [address] ALP [Catalytic activity/Vol] 72 U/L Normal 38-113 [facility] Comment on above: Order Comment: Speci men Type: BLOOD SPECIMENOrdering Facility: [facility] Address: [address] [place] [address] Performed By: #### 2 4323-8 ####[facility] LABCLIA [id number] [place] [address] ALT [Catalytic activity/Vol] 14 U/L Normal 10-54 [facility] Comment on above: Order Comment: Speci men Type: BLOOD SPECIMENOrdering Facility: [facility] Address: [address] [place] [address] Performed By: #### 2 4323-8 ####[facility] LABCLIA [id number] [place] [address] Anion gap [Moles/Vol] 11 mmol/L Normal 9-18 [facility] Comment on above: Order Comment: Speci men Type: BLOOD SPECIMENOrdering Facility: [facility] Address: [address] [place] [address] Performed By: #### 2 4323-8 ####[facility] LABCLIA [id number] [place] [address] AST [Catalytic activity/Vol] 19 U/L Normal 14-40 [facility] Comment on above: Order Comment: Speci men Type: BLOOD SPECIMENOrdering Facility: [facility] Address: [address] [place] [address] Performed By: #### 2 4323-8 ####[facility] LABCLIA [id number] [place] [address] Bilirubin [Mass/Vol] 0.4 mg/dL Normal 0.2-1.3 [facility] Comment on above: Order Comment: Speci men Type: BLOOD SPECIMENOrdering Facility: [facility] Address: [address] [place] [address] Performed By: #### 2 4323-8 ####[facility] LABCLIA [id number] [place] [address] Calcium [Mass/Vol] 9.1 mg/dL Normal 8.5-10.2 [facility] Comment on above: Order Comment: Speci men Type: BLOOD SPECIMENOrdering Facility: [facility] Address: [address] [place] [address] Performed By: #### 2 4323-8 ####[facility] LABCLIA [id number] [place] [address] Chloride [Moles/Vol] 106 mmol/L High 97-105 [facility] Comment on above: Order Comment: Speci men Type: BLOOD SPECIMENOrdering Facility: [facility] Address: [address] [place] [address] Performed By: #### 2 4323-8 ####[facility] LABCLIA [id number] [place] [address] CO2 [Moles/Vol] 20 mmol/L Low 22-30 [facility] Comment on above: Order Comment: Speci men Type: BLOOD SPECIMENOrdering Facility: [facility] Address: [address] [place] [address] Performed By: #### 2 4323-8 ####[facility] LABCLIA [id number] [place] [address] Creatinine [Mass/Vol] 0.68 mg/dL Low 0.73-1.22 [facility] Comment on above: Order Comment: Gerry ibrahim Type: BLOOD SPECIMENOrdering Facility: [facility] Address: [address] [place] [address] Performed By: #### 2 4323-8 ####[facility] LABCLIA [id number] [place] [address] ESTIMATED GLOMERULAR FILTRATION RATE 114 mL/min/1.73m??? Normal >=60 [facility] Comment on above: Order Comment: Gerry ibrahim Type: BLOOD SPECIMENOrdering Facility: [facility] Address: [address] [place] [address] Result Comment: Tanya mated Glomerular Filtration Rate [...] actual GFR. Performed By: #### 2 4323-8 ####[facility] LABCLIA [id number] [place] [address] Glucose [Mass/Vol] 155 mg/dL High 74-99 [facility] Comment on above: Order Comment: Gerry ibrahim Type: BLOOD SPECIMENOrdering Facility: [facility] Address: [address] [place] [address] Result Comment: The [place] [employer] (ADA) provides guidance for cutoff [...] Standards of Medical Care in Diabetes 2016, [place] [employer]. Diabetes Care. 2016.39(Suppl 1). Performed By: #### 2 4323-8 ####[facility] LABCLIA [id number] [place] [address] Potassium [Moles/Vol] 4.0 mmol/L Normal 3.7-5.1 [facility] Comment on above: Order Comment: Speci men Type: BLOOD SPECIMENOrdering Facility: [facility] Address: [address] [place] [address] Performed By: #### 2 4323-8 ####[facility] LABCLIA [id number] [place] [address] Protein [Mass/Vol] 6.4 g/dL Normal 6.3-8.0 [facility] Comment on above: Order Comment: Speci men Type: BLOOD SPECIMENOrdering Facility: [facility] Address: [address] [place] [address] Performed By: #### 2 4323-8 ####[facility] LABCLIA [id number] [place] [address] Sodium [Moles/Vol] 137 mmol/L Normal 136-144 [facility] Comment on above: Order Comment: Speci men Type: BLOOD SPECIMENOrdering Facility: [facility] Address: [address] [place] [address] Performed By: #### 2 4323-8 ####[facility] LABCLIA [id number] [place] [address] Urea nitrogen [Mass/Vol] 16 mg/dL Normal 9-24 [facility] Comment on above: Order Comment: Speci men Type: BLOOD SPECIMENOrdering Facility: [facility] Address: [address] [place] [address] Performed By: #### 2 4323-8 ####[facility] LABCLIA [id number] [place] [address] Albumin [Mass/Vol] 4.0 g/dL 3.9 - 4.9 g/dL [facility] ALP [Catalytic activity/Vol] 72 U/L 38 - 113 U/L [facility] ALT [Catalytic activity/Vol] 14 U/L 10 - 54 U/L [facility] Anion gap [Moles/Vol] 11 mmol/L 9 - 18 mmol/L [facility] AST [Catalytic activity/Vol] 19 U/L 14 - 40 U/L [facility] Bilirubin [Mass/Vol] 0.4 mg/dL 0.2 - 1.3 mg/dL [facility] Calcium [Mass/Vol] 9.1 mg/dL 8.5 - 10. 2 mg/dL [facility] Chloride [Moles/Vol] 106 mmol/L High 97 - 105 mmol/L [facility] CO2 [Moles/Vol] 20 mmol/L Low 22 - 30 mmol/L [facility] Creatinine [Mass/Vol] 0.68 mg/dL Low 0.73 - 1.22 mg/dL [facility] Estimated Glomerular Filtration Rate 114 mL/min/1.73m >=60 mL/min/1.73m [facility] Glucose [Mass/Vol] 155 mg/dL High 74 - 99 mg/dL [facility] Potassium [Moles/Vol] 4.0 mmol/L 3.7 - 5.1 mmol/L [facility] Protein [Mass/Vol] 6.4 g/dL 6.3 - 8.0 g/dL [facility] Sodium [Moles/Vol] 137 mmol/L 136 - 144 mmol/L [facility] Urea nitrogen [Mass/Vol] 16 mg/dL 9 - 24 mg/dL [facility] CBC W Auto Differential pane l (Bld)on 07-15-2022 Basophils (Bld) [#/Vol] 0.03 10*3/uL Normal <0.11 [facility] Comment on above: Order Comment: Speci men Type: BLOOD SPECIMENOrdering Facility: [facility] Address: [address] [place] [id number] Performed By: #### 5 7021-8 ####[facility] LABCLIA [id number] [place] [address] Basophils/100 WBC (Bld) 0.8 % Normal [facility] Comment on above: Order Comment: Speci men Type: BLOOD SPECIMENOrdering Facility: [facility] Address: [address] [place] [address] Performed By: #### 5 7021-8 ####[facility] LABCLIA [id number] [place] [address] Differential cell count method Nom (Bld) Auto Normal [facility] Comment on above: Order Comment: Speci men Type: BLOOD SPECIMENOrdering Facility: [facility] Address: [address] [place] [address] Performed By: #### 5 7021-8 ####[facility] LABCLIA [id number] [place] [address] Eosinophils (Bld) [#/Vol] 0.32 10*3/uL Normal <0.46 [facility] Comment on above: Order Comment: Speci men Type: BLOOD SPECIMENOrdering Facility: [facility] Address: [address] [place] [address] Performed By: #### 5 7021-8 ####[facility] LABCLIA [id number] [place] [address] Eosinophils/100 WBC (Bld) 8.8 % Normal [facility] Comment on above: Order Comment: Speci men Type: BLOOD SPECIMENOrdering Facility: [facility] Address: [address] [place] [address] Performed By: #### 5 7021-8 ####[facility] LABIA [id number] [place] [address] Erythrocyte distribution width (RBC) [Ratio] 14.6 % Normal 11.5-15.0 [facility] Comment on above: Order Comment: Speci men Type: BLOOD SPECIMENOrdering Facility: [facility] Address: [address] [address] Performed By: #### 5 7021-8 ####[facility] LABCLIA [id number] [place] [address] Hematocrit (Bld) [Volume fraction] 39.5 % Normal 39.0-51.0 [facility] Comment on above: Order Comment: Speci men Type: BLOOD SPECIMENOrdering Facility: [facility] Address: [address] [place] [address] Performed By: #### 5 7021-8 ####[facility] LABIA [id number] [place] [address] Hemoglobin (Bld) [Mass/Vol] 13.6 g/dL Normal 13.0-17.0 [facility] Comment on above: Order Comment: Speci men Type: BLOOD SPECIMENOrdering Facility: [facility] Address: [address] [place] [address] Performed By: #### 5 7021-8 ####[facility] LABIA [id number] [place] [address] IMMATURE GRAN % 0.3 % Normal [facility] Comment on above: Order Comment: Speci men Type: BLOOD SPECIMENOrdering Facility: [facility] Address: [address] [place] [address] Performed By: #### 5 7021-8 ####[facility] LABIA [id number] [place] [address] IMMATURE GRAN ABS <0.03 Normal <0.10 [facility] Comment on above: Order Comment: Speci men Type: BLOOD SPECIMENOrdering Facility: [facility] Address: [address] [place] [address] Performed By: #### 5 7021-8 ####[facility] LABCLIA [id number] [place] [address] Lymphocytes (Bld) [#/Vol] 0.53 10*3/uL Low 1.00-4.00 [facility] Comment on above: Order Comment: Speci men Type: BLOOD SPECIMENOrdering Facility: [facility] Address: [address] [place] [address] Performed By: #### 5 7021-8 ####[facility] LABCLIA [id number] [place] [address] Lymphocytes/100 WBC (Bld) 14.6 % Normal [facility] Comment on above: Order Comment: Speci men Type: BLOOD SPECIMENOrdering Facility: [facility] Address: [address] [place] [address] Performed By: #### 5 7021-8 ####[facility] LABCLIA [id number] [place] [address] MCH (RBC) [Entitic mass] 33.3 pg Normal 26.0-34.0 [facility] Comment on above: Order Comment: Speci men Type: BLOOD SPECIMENOrdering Facility: [facility] Address: [address] [place] [address] Performed By: #### 5 7021-8 ####[facility] LABCLIA [id number] [place] [address] MCHC (RBC) [Mass/Vol] 34.4 g/dL Normal 30.5-36.0 [facility] Comment on above: Order Comment: Speci men Type: BLOOD SPECIMENOrdering Facility: [facility] Address: [address] [place] [address] Performed By: #### 5 7021-8 ####[facility] LABIA [id number] [place] [address] MCV (RBC) [Entitic vol] 96.6 fL Normal 80.0-100.0 [facility] Comment on above: Order Comment: Speci men Type: BLOOD SPECIMENOrdering Facility: [facility] Address: [address] [place] [address] Performed By: #### 5 7021-8 ####[facility] LABCLIA [id number] [place] [address] Monocytes (Bld) [#/Vol] 0.48 10*3/uL Normal <0.87 [facility] Comment on above: Order Comment: Speci men Type: BLOOD SPECIMENOrdering Facility: [facility] Address: [address] [place] [address] Performed By: #### 5 7021-8 ####[facility] LABCLIA [id number] [place] [address] Monocytes/100 WBC (Bld) 13.2 % Normal [facility] Comment on above: Order Comment: Speci men Type: BLOOD SPECIMENOrdering Facility: [facility] Address: [address] [place] [address] Performed By: #### 5 7021-8 ####[facility] LABCLIA [id number] [place] [address] Neutrophils (Bld) [#/Vol] 2.27 10*3/uL Normal 1.45-7.50 [facility] Comment on above: Order Comment: Speci men Type: BLOOD SPECIMENOrdering Facility: [facility] Address: [address] [place] [address] Performed By: #### 5 7021-8 ####[facility] LABCLIA [id number] [place] [address] Neutrophils/100 WBC (Bld) 62.3 % Normal [facility] Comment on above: Order Comment: Speci men Type: BLOOD SPECIMENOrdering Facility: [facility] Address: [address] [place] [address] Performed By: #### 5 7021-8 ####[facility] LABCLIA [id number] [place] [address] Nucleated RBC (Bld) [#/Vol] 10*3/uL Normal <0.01 [facility] Comment on above: Order Comment: Speci men Type: BLOOD SPECIMENOrdering Facility: [facility] Address: [address] [place] [address] Performed By: #### 5 7021-8 ####[facility] LABCLIA [id number] [place] [address] Nucleated RBC/100 WBC (Bld) [Ratio] 0.0 /100 WBC Normal [facility] Comment on above: Order Comment: Speci men Type: BLOOD SPECIMENOrdering Facility: [facility] Address: [address] [place] [address] Performed By: #### 5 7021-8 ####[facility] LABIA [id number] [place] [address] Platelet mean volume (Bld) [Entitic vol] 9.6 fL Normal 9.0-12.7 [facility] Comment on above: Order Comment: Speci men Type: BLOOD SPECIMENOrdering Facility: [facility] Address: [address] [place] [address] Performed By: #### 5 7021-8 ####[facility] LABIA [id number] [place] [address] Platelets (Bld) [#/Vol] 196 10*3/uL Normal 150-400 [facility] Comment on above: Order Comment: Speci men Type: BLOOD SPECIMENOrdering Facility: [facility] Address: [address] [place], [place] [address] Performed By: #### 5 7021-8 ####[facility] LABIA [id number] [place] [address] RBC (Bld) [#/Vol] 4.09 10*6/uL Low 4.20-6.00 [facility] Comment on above: Order Comment: Speci men Type: BLOOD SPECIMENOrdering Facility: [facility] Address: [address] [place], [place] [address] Performed By: #### 5 7021-8 ####[facility] LABCLIA [id number] [place] [address] WBC (Bld) [#/Vol] 3.64 10*3/uL Low 3.70-11.00 [facility] Comment on above: Order Comment: Speci men Type: BLOOD SPECIMENOrdering Facility: [facility] Address: [address] [place], [place] [address] Performed By: #### 5 7021-8 ####[facility] LABCLIA [id number] [place] [address] CNCOon 07-15-2022 CNCO Letter Text Normal [facility] CNOVSPon 07-15-2022 CNOVSP Visit (SP) Office (HEMASA) -------- HOANG WHITE ([id number]) 1975 M Date Time Provider Department 07/15/22 10:00 AM TEMI DEAN During your visit today, we recorded the following information about you: Temperature Pulse Respiration Blood pressure 97.9 degrees 72/minute 16/minute 121/71 Weight Height 61.4 kg 1.724 m Temi Dean PA-C 07/15/2022 9:59 AM Signed PATIENT NAME: Hoang Estrada CLINIC NO.: [id number] ATTENDING PHYSICIAN: Oscar Gonzalez MD DATE OF [...] 2. Severe TR ( ECHO 12/2021 at [facility]): - The left ventricle is normal in [...] Date Value (more content not included)... Normal [facility] Redd 07-15-2022 TAHIRAN Telephone (HEMTSA) -------- HOANG WHITE ([id number]) 1975 M Date Time Provider Department 07/15/22 [...] Status:Closed by ANGELLA GAUTAM on 08/09/22 Normal [facility] metabolic 2000 panelon 07-15-2022 Albumin [Mass/Vol] 4.4 g/dL Normal 3.9-4.9 [facility] Comment on above: Order Comment: Speci men Type: BLOOD SPECIMENOrdering Facility: [facility] Address: [address] [place] [address] Performed By: #### 2 4323-8 ####[facility] LABCLIA [id number] [place] [address] ALP [Catalytic activity/Vol] 91 U/L Normal 38-113 [facility] Comment on above: Order Comment: Speci men Type: BLOOD SPECIMENOrdering Facility: [facility] Address: [address] [place] [address] Performed By: #### 2 4323-8 ####[facility] LABCLIA [id number] [place] [address] ALT [Catalytic activity/Vol] 14 U/L Normal 10-54 [facility] Comment on above: Order Comment: Speci men Type: BLOOD SPECIMENOrdering Facility: [facility] Address: [address] [place] [address] Performed By: #### 2 4323-8 ####[facility] LABCLIA [id number] [place] [address] Anion gap [Moles/Vol] 7 mmol/L Low 9-18 [facility] Comment on above: Order Comment: Speci men Type: BLOOD SPECIMENOrdering Facility: [facility] Address: [address] [place] [address] Performed By: #### 2 4323-8 ####[facility] LABCLIA [id number] [place] [address] AST [Catalytic activity/Vol] 17 U/L Normal 14-40 [facility] Comment on above: Order Comment: Speci men Type: BLOOD SPECIMENOrdering Facility: [facility] Address: [address] [place] [address] Performed By: #### 2 4323-8 ####[facility] LABCLIA [id number] [place] [address] Bilirubin [Mass/Vol] 0.3 mg/dL Normal 0.2-1.3 [facility] Comment on above: Order Comment: Speci men Type: BLOOD SPECIMENOrdering Facility: [facility] Address: [address] [place] [address] Performed By: #### 2 4323-8 ####[facility] LABCLIA [id number] [place] [address] Calcium [Mass/Vol] 9.7 mg/dL Normal 8.5-10.2 [facility] Comment on above: Order Comment: Speci men Type: BLOOD SPECIMENOrdering Facility: [facility] Address: [address] [place] [address] Performed By: #### 2 4323-8 ####[facility] LABCLIA [id number] [place] [address] Chloride [Moles/Vol] 108 mmol/L High 97-105 [facility] Comment on above: Order Comment: Speci men Type: BLOOD SPECIMENOrdering Facility: [facility] Address: [address] [place] [address] Performed By: #### 2 4323-8 ####[facility] LABCLIA [id number] [place] [address] CO2 [Moles/Vol] 29 mmol/L Normal 22-30 [facility] Comment on above: Order Comment: Speci men Type: BLOOD SPECIMENOrdering Facility: [facility] Address: [address] [place] [address] Performed By: #### 2 4323-8 ####[facility] LABIA [id number] [place] [address] Creatinine [Mass/Vol] 0.78 mg/dL Normal 0.73-1.22 [facility] Comment on above: Order Comment: Speci men Type: BLOOD SPECIMENOrdering Facility: [facility] Address: [address] [address] Performed By: #### 2 4323-8 ####[facility] LABCLIA [id number] [place] [address] ESTIMATED GLOMERULAR FILTRATION RATE 109 mL/min/1.73m??? Normal >=60 [facility] Comment on above: Order Comment: Gerry ibrahim Type: BLOOD SPECIMENOrdering Facility: [facility] Address: [address] [place] [address] Result Comment: Tanya mated Glomerular Filtration Rate [...] actual GFR. Performed By: #### 2 4323-8 ####[facility] LABCLIA [id number] [place] [address] Glucose [Mass/Vol] 89 mg/dL Normal 74-99 [facility] Comment on above: Order Comment: Gerry ibrahim Type: BLOOD SPECIMENOrdering Facility: [facility] Address: [address] [place] [address] Result Comment: The [place] [employer] (ADA) provides guidance for cutoff [...] Standards of Medical Care in Diabetes 2016, [place] [employer]. Diabetes Care. 2016.39(Suppl 1). Performed By: #### 2 4323-8 ####[facility] LABCLIA [id number] [place] [address] Potassium [Moles/Vol] 4.5 mmol/L Normal 3.7-5.1 [facility] Comment on above: Order Comment: Speci men Type: BLOOD SPECIMENOrdering Facility: [facility] Address: [address] [place] [address] Performed By: #### 2 4323-8 ####[facility] LABCLIA [id number] [place] [address] Protein [Mass/Vol] 6.9 g/dL Normal 6.3-8.0 [facility] Comment on above: Order Comment: Speci men Type: BLOOD SPECIMENOrdering Facility: [facility] Address: [address] [place] [address] Performed By: #### 2 4323-8 ####[facility] LABIA [id number] [place] [address] Sodium [Moles/Vol] 144 mmol/L Normal 136-144 [facility] Comment on above: Order Comment: Speci men Type: BLOOD SPECIMENOrdering Facility: [facility] Address: [address] [place] [address] Performed By: #### 2 4323-8 ####[facility] LABIA [id number] [place] [address] Urea nitrogen [Mass/Vol] 13 mg/dL Normal 9-24 [facility] Comment on above: Order Comment: Speci men Type: BLOOD SPECIMENOrdering Facility: [facility] Address: [address] [place] [address] Performed By: #### 2 4323-8 ####[facility] LABIA [id number] [place] [address] Redd 06-27-2022 AMY Telephone (HEMASA) -------- ESTRADA,HOANG ([id number]) 1975 M Date Time Provider Department 06/27/22 MEGHAN PICHARDO During your visit today, we recorded the following information about you: Meghan Pichardo RN 06/27/2022 10:44 AM Signed Pt calls stating he still hasn't heard from [employer] regarding his Xeloda pills. Explained to pt that the new script was escribed through to [facility] and they should have it ready to be shipped to him. Instructed pt to call [employer] to schedule delivery. Pt verbalized understanding and will call now. Meghan Pichardo RN Allergies As of Date: 06/27/2022 (No Known Allergies) Date Reviewed: 06/24/2022 Reviewed by: Oscar Gonzalez MD - Fully Assessed Reason for Visit: Care Coordination [8148] Cmt: Medication update Prescriptions as of 06/27/2022 [...] Status:Closed by MEGHAN PICHARDO on 06/27/22 Normal [facility] CBC W Auto Differential pane l (Bld)on 06-24-2022 Basophils (Bld) [#/Vol] 0.04 10*3/uL Normal <0.11 [facility] Comment on above: Order Comment: Speci men Type: BLOOD SPECIMENOrdering Facility: [facility] Address: [address] [place] [address] [place] [address] Performed By: #### 5 7021-8 ####[facility] LABCLIA [id number] [place] [address] Basophils/100 WBC (Bld) 0.7 % Normal [facility] Comment on above: Order Comment: Speci men Type: BLOOD SPECIMENOrdering Facility: [facility] Address: [address] [place] [address] Performed By: #### 5 7021-8 ####[facility] LABCLIA [id number] [place] [address] Differential cell count method Nom (Bld) Auto Normal [facility] Comment on above: Order Comment: Speci men Type: BLOOD SPECIMENOrdering Facility: [facility] Address: [address] [place] [address] Performed By: #### 5 7021-8 ####[facility] LABCLIA [id number] [place] [address] Eosinophils (Bld) [#/Vol] 0.28 10*3/uL Normal <0.46 [facility] Comment on above: Order Comment: Speci men Type: BLOOD SPECIMENOrdering Facility: [facility] Address: [address] [place] [address] Performed By: #### 5 7021-8 ####[facility] LABCLIA [id number] [place] [address] Eosinophils/100 WBC (Bld) 5.1 % Normal [facility] Comment on above: Order Comment: Speci men Type: BLOOD SPECIMENOrdering Facility: [facility] Address: [address] [place] [address] Performed By: #### 5 7021-8 ####[facility] LABCLIA [id number] [place] [address] Erythrocyte distribution width (RBC) [Ratio] 14.6 % Normal 11.5-15.0 [facility] Comment on above: Order Comment: Speci men Type: BLOOD SPECIMENOrdering Facility: [facility] Address: [address] [place] [address] Performed By: #### 5 7021-8 ####[facility] LABCLIA [id number] [place] [address] Hematocrit (Bld) [Volume fraction] 40.0 % Normal 39.0-51.0 [facility] Comment on above: Order Comment: Speci men Type: BLOOD SPECIMENOrdering Facility: [facility] Address: [address] [place] [address] Performed By: #### 5 7021-8 ####[facility] LABIA [id number] [place] [address] Hemoglobin (Bld) [Mass/Vol] 13.7 g/dL Normal 13.0-17.0 [facility] Comment on above: Order Comment: Speci men Type: BLOOD SPECIMENOrdering Facility: [facility] Address: [address] [place] [address] Performed By: #### 5 7021-8 ####[facility] LABIA [id number] [place] [address] IMMATURE GRAN % 0.4 % Normal [facility] Comment on above: Order Comment: Speci men Type: BLOOD SPECIMENOrdering Facility: [facility] Address: [address] [place] [address] Performed By: #### 5 7021-8 ####[facility] LABIA [id number] [place] [address] IMMATURE GRAN ABS <0.03 Normal <0.10 [facility] Comment on above: Order Comment: Speci men Type: BLOOD SPECIMENOrdering Facility: [facility] Address: [address] [place] [address] Performed By: #### 5 7021-8 ####[facility] LABIA [id number] [place] [address] Lymphocytes (Bld) [#/Vol] 0.50 10*3/uL Low 1.00-4.00 [facility] Comment on above: Order Comment: Speci men Type: BLOOD SPECIMENOrdering Facility: [facility] Address: [address] [place] [address] Performed By: #### 5 7021-8 ####[facility] LABCLIA [id number] [place] [address] Lymphocytes/100 WBC (Bld) 9.1 % Normal [facility] Comment on above: Order Comment: Speci men Type: BLOOD SPECIMENOrdering Facility: [facility] Address: [address] [place] [address] Performed By: #### 5 7021-8 ####[facility] LABCLIA [id number] [place] [address] MCH (RBC) [Entitic mass] 32.5 pg Normal 26.0-34.0 [facility] Comment on above: Order Comment: Speci men Type: BLOOD SPECIMENOrdering Facility: [facility] Address: [address] [place] [address] Performed By: #### 5 7021-8 ####[facility] LABCLIA [id number] [place] [address] MCHC (RBC) [Mass/Vol] 34.3 g/dL Normal 30.5-36.0 [facility] Comment on above: Order Comment: Speci men Type: BLOOD SPECIMENOrdering Facility: [facility] Address: [address] [place] [address] Performed By: #### 5 7021-8 ####[facility] LABIA [id number] [place] [address] MCV (RBC) [Entitic vol] 94.8 fL Normal 80.0-100.0 [facility] Comment on above: Order Comment: Speci men Type: BLOOD SPECIMENOrdering Facility: [facility] Address: [address] [place] [address] Performed By: #### 5 7021-8 ####[facility] LABCLIA [id number] [place] [address] Monocytes (Bld) [#/Vol] 0.55 10*3/uL Normal <0.87 [facility] Comment on above: Order Comment: Speci men Type: BLOOD SPECIMENOrdering Facility: [facility] Address: [address] [place] [address] Performed By: #### 5 7021-8 ####[facility] LABCLIA [id number] [place] [address] Monocytes/100 WBC (Bld) 10.0 % Normal [facility] Comment on above: Order Comment: Speci men Type: BLOOD SPECIMENOrdering Facility: [facility] Address: [address] [place] [address] Performed By: #### 5 7021-8 ####[facility] LABCLIA [id number] [place] [address] Neutrophils (Bld) [#/Vol] 4.13 10*3/uL Normal 1.45-7.50 [facility] Comment on above: Order Comment: Speci men Type: BLOOD SPECIMENOrdering Facility: [facility] Address: [address] [place] [address] Performed By: #### 5 7021-8 ####[facility] LABCLIA [id number] [place] [address] Neutrophils/100 WBC (Bld) 74.7 % Normal [facility] Comment on above: Order Comment: Speci men Type: BLOOD SPECIMENOrdering Facility: [facility] Address: [address] [place], [place] [address] Performed By: #### 5 7021-8 ####[facility] LABCLIA [id number] [place] [address] Nucleated RBC (Bld) [#/Vol] 10*3/uL Normal <0.01 [facility] Comment on above: Order Comment: Speci men Type: BLOOD SPECIMENOrdering Facility: [facility] Address: [address] [place] [address] Performed By: #### 5 7021-8 ####[facility] LABCLIA [id number] [place] [address] Nucleated RBC/100 WBC (Bld) [Ratio] 0.0 /100 WBC Normal [facility] Comment on above: Order Comment: Speci men Type: BLOOD SPECIMENOrdering Facility: [facility] Address: [address] [place] [address] Performed By: #### 5 7021-8 ####[facility] LABCLIA [id number] [place] [address] Platelet mean volume (Bld) [Entitic vol] 9.9 fL Normal 9.0-12.7 [facility] Comment on above: Order Comment: Speci men Type: BLOOD SPECIMENOrdering Facility: [facility] Address: [address] [place] [address] Performed By: #### 5 7021-8 ####[facility] LABCLIA [id number] [place] [address] Platelets (Bld) [#/Vol] 259 10*3/uL Normal 150-400 [facility] Comment on above: Order Comment: Speci men Type: BLOOD SPECIMENOrdering Facility: [facility] Address: [address] [place], [place] [address] Performed By: #### 5 7021-8 ####[facility] LABCLIA [id number] [place] [address] RBC (Bld) [#/Vol] 4.22 10*6/uL Normal 4.20-6.00 [facility] Comment on above: Order Comment: Speci men Type: BLOOD SPECIMENOrdering Facility: [facility] Address: [address] [place], [place] [id number] Performed By: #### 5 7021-8 ####[facility] LABCLIA [id number] [place] [address] WBC (Bld) [#/Vol] 5.52 10*3/uL Normal 3.70-11.00 [facility] Comment on above: Order Comment: Speci men Type: BLOOD SPECIMENOrdering Facility: [facility] Address: [address] [place], [place] [id number] Performed By: #### 5 7021-8 ####[facility] LABCLIA [id number] [place] [address] Abs Immature Gran <0.10 k/uL [facility] Basophils (Bld) [#/Vol] 0.04 10*3/uL <0.11 k/uL [facility] Basophils/100 WBC (Bld) 0.7 % [facility] Differential cell count method Nom (Bld) Auto [facility] Eosinophils (Bld) [#/Vol] 0.28 10*3/uL <0.46 k/uL [facility] Eosinophils/100 WBC (Bld) 5.1 % [facility] Erythrocyte distribution width (RBC) [Ratio] 14.6 % 11.5 - 15.0 % [facility] Hematocrit (Bld) [Volume fraction] 40.0 % 39.0 - 51.0 % [facility] Hemoglobin (Bld) [Mass/Vol] 13.7 g/dL 13.0 - 17.0 g/dL [facility] Immature Gran % 0.4 % [facility] Lymphocytes (Bld) [#/Vol] 0.50 10*3/uL Low 1.00 - 4.00 k/uL [facility] Lymphocytes/100 WBC (Bld) 9.1 % [facility] MCH (RBC) [Entitic mass] 32.5 pg 26.0 - 34.0 pg [facility] MCHC (RBC) [Mass/Vol] 34.3 g/dL 30.5 - 36.0 g/dL [facility] MCV (RBC) [Entitic vol] 94.8 fL 80.0 - 100.0 fL [facility] Monocytes (Bld) [#/Vol] 0.55 10*3/uL <0.87 k/uL [facility] Monocytes/100 WBC (Bld) 10.0 % [facility] Neutrophils (Bld) [#/Vol] 4.13 10*3/uL 1.45 - 7.50 k/uL [facility] Neutrophils/100 WBC (Bld) 74.7 % [facility] Nucleated RBC (Bld) [#/Vol] <0.01 k/uL [facility] Nucleated RBC/100 WBC (Bld) [Ratio] 0.0 /100 WBC [facility] Platelet mean volume (Bld) [Entitic vol] 9.9 fL 9.0 - 12.7 fL [facility] Platelets (Bld) [#/Vol] 259 10*3/uL 150 - 400 k/uL [facility] RBC (Bld) [#/Vol] 4.22 10*6/uL 4.20 - 6.0 0 m/uL [facility] WBC (Bld) [#/Vol] 5.52 10*3/uL 3.70 - 11. 00 k/uL [facility] CNCOon 06-24-2022 CNCO Letter Text Normal [facility] CNOVSPon 06-24-2022 CNOVSP Visit (SP) Office (HEMASA) -------- HOANG WHITE ([id number]) 1975 M Date Time Provider Department 06/24/22 9:45 AM OSCAR GONZALEZ During your visit today, we recorded the following information about you: Temperature Pulse Respiration Blood pressure 97 degrees 61/minute 16/minute 134/72 Weight Height 61.3 kg 1.724 m Oscar Gonzalez MD 06/24/2022 10:14 AM Signed PATIENT NAME: Hoang Zuñigaregorio [facility] NO.: [id number] ATTENDING PHYSICIAN: Oscar Gonzalez MD DATE OF [...] 2. Severe TR ( ECHO 12/2021 at [facility]): - The left ventricle is normal in [...] (mg/dL) Date (more content not included)... Normal [facility] Comprehensive metabolic 2000 panelon 06-24-2022 Albumin [Mass/Vol] 4.5 g/dL Normal 3.9-4.9 [facility] Comment on above: Order Comment: Speci men Type: BLOOD SPECIMENOrdering Facility: [facility] Address: [address] [place] [address] Performed By: #### 2 4323-8 ####[facility] LABCLIA [id number] [place] [address] ALP [Catalytic activity/Vol] 85 U/L Normal 38-113 [facility] Comment on above: Order Comment: Speci men Type: BLOOD SPECIMENOrdering Facility: [facility] Address: [address] [place] [address] Performed By: #### 2 4323-8 ####[facility] LABCLIA [id number] [place] [address] ALT [Catalytic activity/Vol] 15 U/L Normal 10-54 [facility] Comment on above: Order Comment: Speci men Type: BLOOD SPECIMENOrdering Facility: [facility] Address: [address] [place] [address] Performed By: #### 2 4323-8 ####[facility] LABCLIA [id number] [place] [address] Anion gap [Moles/Vol] 8 mmol/L Low 9-18 [facility] Comment on above: Order Comment: Speci men Type: BLOOD SPECIMENOrdering Facility: [facility] Address: [address] [place] [address] Performed By: #### 2 4323-8 ####[facility] LABCLIA [id number] [place] [address] AST [Catalytic activity/Vol] 21 U/L Normal 14-40 [facility] Comment on above: Order Comment: Speci men Type: BLOOD SPECIMENOrdering Facility: [facility] Address: [address] [place] [address] Performed By: #### 2 4323-8 ####[facility] LABCLIA [id number] [place] [address] Bilirubin [Mass/Vol] 0.4 mg/dL Normal 0.2-1.3 [facility] Comment on above: Order Comment: Speci men Type: BLOOD SPECIMENOrdering Facility: [facility] Address: [address] [place] [address] Performed By: #### 2 4323-8 ####[facility] LABCLIA [id number] [place] [address] Calcium [Mass/Vol] 9.6 mg/dL Normal 8.5-10.2 [facility] Comment on above: Order Comment: Speci men Type: BLOOD SPECIMENOrdering Facility: [facility] Address: [address] [place] [address] Performed By: #### 2 4323-8 ####[facility] LABCLIA [id number] [place] [address] Chloride [Moles/Vol] 103 mmol/L Normal 97-105 [facility] Comment on above: Order Comment: Speci men Type: BLOOD SPECIMENOrdering Facility: [facility] Address: [address] [place] [address] Performed By: #### 2 4323-8 ####[facility] LABCLIA [id number] [place] [address] CO2 [Moles/Vol] 26 mmol/L Normal 22-30 [facility] Comment on above: Order Comment: Speci men Type: BLOOD SPECIMENOrdering Facility: [facility] Address: [address] [place] [address] Performed By: #### 2 4323-8 ####[facility] LABCLIA [id number] [place] [address] Creatinine [Mass/Vol] 0.81 mg/dL Normal 0.73-1.22 [facility] Comment on above: Order Comment: Gerry ibrahim Type: BLOOD SPECIMENOrdering Facility: [facility] Address: [address] [place] [address] Performed By: #### 2 4323-8 ####[facility] LABCLIA [id number] [place] [address] ESTIMATED GLOMERULAR FILTRATION RATE 109 mL/min/1.73m??? Normal >=60 [facility] Comment on above: Order Comment: Gerry ibrahim Type: BLOOD SPECIMENOrdering Facility: [facility] Address: [address] [place] [address] Result Comment: Tanya mated Glomerular Filtration Rate [...] actual GFR. Performed By: #### 2 4323-8 ####[facility] LABCLIA [id number] [place] [address] Glucose [Mass/Vol] 92 mg/dL Normal 74-99 [facility] Comment on above: Order Comment: Gerry ibrahim Type: BLOOD SPECIMENOrdering Facility: [facility] Address: [address] [place] [address] Result Comment: The [place] [employer] (ADA) provides guidance for cutoff [...] Standards of Medical Care in Diabetes 2016, [place] [employer]. Diabetes Care. 2016.39(Suppl 1). Performed By: #### 2 4323-8 ####[facility] LABCLIA [id number] [place] [address] Potassium [Moles/Vol] 4.3 mmol/L Normal 3.7-5.1 [facility] Comment on above: Order Comment: Speci men Type: BLOOD SPECIMENOrdering Facility: [facility] Address: [address] [place] [address] Performed By: #### 2 4323-8 ####[facility] LABCLIA [id number] [place] [address] Protein [Mass/Vol] 7.2 g/dL Normal 6.3-8.0 [facility] Comment on above: Order Comment: Speci men Type: BLOOD SPECIMENOrdering Facility: [facility] Address: [address] [place] [address] Performed By: #### 2 4323-8 ####[facility] LABCLIA [id number] [place] [address] Sodium [Moles/Vol] 137 mmol/L Normal 136-144 [facility] Comment on above: Order Comment: Speci men Type: BLOOD SPECIMENOrdering Facility: [facility] Address: [address] [place] [address] Performed By: #### 2 4323-8 ####[facility] LABCLIA [id number] [place] [address] Urea nitrogen [Mass/Vol] 12 mg/dL Normal 9-24 [facility] Comment on above: Order Comment: Speci men Type: BLOOD SPECIMENOrdering Facility: [facility] Address: [address] [place] [address] Performed By: #### 2 4323-8 ####[facility] LABCLIA [id number] [place] [address] Albumin [Mass/Vol] 4.5 g/dL 3.9 - 4.9 g/dL [facility] ALP [Catalytic activity/Vol] 85 U/L 38 - 113 U/L [facility] ALT [Catalytic activity/Vol] 15 U/L 10 - 54 U/L [facility] Anion gap [Moles/Vol] 8 mmol/L Low 9 - 18 mmol/L [facility] AST [Catalytic activity/Vol] 21 U/L 14 - 40 U/L [facility] Bilirubin [Mass/Vol] 0.4 mg/dL 0.2 - 1.3 mg/dL [facility] Calcium [Mass/Vol] 9.6 mg/dL 8.5 - 10. 2 mg/dL [facility] Chloride [Moles/Vol] 103 mmol/L 97 - 105 mmol/L [facility] CO2 [Moles/Vol] 26 mmol/L 22 - 30 mmol/L [facility] Creatinine [Mass/Vol] 0.81 mg/dL 0.73 - 1.22 mg/dL [facility] Estimated Glomerular Filtration Rate 109 mL/min/1.73m >=60 mL/min/1.73m [facility] Glucose [Mass/Vol] 92 mg/dL 74 - 99 mg/dL [facility] Potassium [Moles/Vol] 4.3 mmol/L 3.7 - 5.1 mmol/L [facility] Protein [Mass/Vol] 7.2 g/dL 6.3 - 8.0 g/dL [facility] Sodium [Moles/Vol] 137 mmol/L 136 - 144 mmol/L [facility] Urea nitrogen [Mass/Vol] 12 mg/dL 9 - 24 mg/dL [facility] CNPNon 06-23-2022 CNPN Telephone (HEMASA) -------- HOANG WHITE ([id number]) 1975 M Date Time Provider Department 06/23/22 MEGHAN PICHARDO Cat ZAMORAISAIAS During your visit today, we recorded the following information about you: Meghan Pichardo RN 06/23/2022 1:47 PM Signed Pt calls stating he hasn't received his Xeloda in the mail from [facility]. Pt has not called requesting a refill [...] here. Verbalized understanding. SHEMAR Monique [facility] 06/23/2022 3:28 PM Signed Confirmed [facility] received order and left Hoang a message letting him know they have the prescription and he will need to call to set up delivery. I also let him know we will have the am dose ready in the pharmacy for him to picker/puller on his way in tomorrow am. Elvin Pitts, [facility] Allergies As of Date: 06/23/2022 (No Known Allergies) Date Reviewed: 05/25/2022 Reviewed by: Ana Enriquez MD - Fully Assessed Reason for Visit: Care Coordination [9411] Cmt: Medication refill Prescriptions as of 06/23/2022 [...] Encounter Status:Closed by BOUCHRA PITTS on 06/23/22 [facility] 06-07-2022 TAHIRAN Telephone (HEMASA) -------- ESTRADACLARISSES ([id number]) 1975 M Date Time Provider Department 06/07/22 [...] Fully Assessed Reason for Visit: Care Coordination [9446] Cmt: C1D1 treatment follow up call Prescriptions [...] Encounter Status:Closed by MEGHAN PICHARDO on 06/10/22 [facility] 05-30-2022 AMY Telephone (REFAIR) -------- HOANG WHITE ([id number]) 1975 M Date Time Provider Department 05/30/22 MARY SOLORIO During your visit today, we recorded the following information about you: Catalina Muhammad 05/30/2022 2:15 PM Signed IRB # [id number] Tight perioperative blood pressure management to reduce serious cardiovascular, renal, and cognitive complications: The GUARDIAN trial PI: Mary Solorio MD, LUCIA, FASA. Outcomes Research Department. [facility]. [facility]. This is a research study note. Patient assessments recorded here should not guide either clinical care or clinical decision-making. I called the patient, Hoang White, today regarding follow-up for the study IRB [id number] Tight Perioperative Blood pressure Management to Reduce Serious Cardiovascular, renal, and Cognitive Complications (GUARDIAN) Trial. The patient said to call back tomorrow. Catalina Muhammad Research Review Appraiser Department of OUTCOMES RESEARCH [facility] Allergies As of Date: 05/30/2022 (No Known [...] Encounter Status:Closed by CATALINA MUHAMMAD on 05/30/22 [facility] 05-25-2022 AMY Telephone (REFAIR) -------- HOANG WHITE ([id number]) 1975 M Date Time Provider Department 05/25/22 MARY SOLORIO During your visit today, we recorded the following information about you: Catalina Muhammad 05/25/2022 3:54 PM Signed IRB # [id number] Tight perioperative blood pressure management to reduce serious cardiovascular, renal, and cognitive complications: The GUARDIAN trial PI: Mary Solorio MD, LUCIA, FASA. Outcomes Research Department. [facility]. [facility]. This is a research study note. Patient assessments recorded here should not guide either clinical care or clinical decision-making. Patient was unable to be reached by phone. I left a voicemail to call back at earliest convenience. Will call again at a later date. Catalina Muhammad Research Review Appraiser Outcomes Research [facility] Allergies As of Date: 05/25/2022 (No [...] Encounter Status:Closed by CATALINA MUHAMMAD on 05/25/22 [facility] 05-12-2022 [facility] HNO ID: [id number] Author: Pamela Morales, composing machine operator/tender Service: Radiology Author Type: Certified Cytotechnologist Type: Allied Health Filed: 05/12/2022 2:02 PM [...] DEPARTMENT: MR; Exam(s) Completed: Body: Rectal SIGNATURE: Pamela Morales composing machine operator/tender PATIENT NAME: Hoang White DATE: May 12, 2022 TIME: 2:01 PM [facility] MRI RECTUM WO/W IVCONon 07- MRI RECTUM WO/W IVCON * * *Final Report* * * DATE OF EXAM: May 12 2022 2:01PM [facility] 0754 - MRI RECTUM WO/W IVCON [...] 0.4 cm. Suspicious Extramesorectal lymph nodes: No. Human Performance Consultant: ADDI Transcribe Date/Time: May 12 2022 2:23P Dictated by : DAVIDE MAYERS MD This examination was interpreted and the report reviewed and electronically signed by: DAVIDE MAYERS MD on May 12 2022 2:45PM EST [id number] Normal [facility] CNPLivier 03-25-2022 CNPN Telephone (FVPRAD) -------- HOANG WHITE ([id number]) 1975 M Date Time Provider Department 03/25/22 ROB FROST FVYON During your visit today, we recorded the following information about you: Rob Trotter, Research Coordinator 03/25/2022 12:44 PM Signed IRB # [id number] Tight perioperative blood pressure management to reduce serious cardiovascular, renal, and cognitive complications: The GUARDIAN trial PI: Mary Solorio MD, LUCIA, FASA. Outcomes Research Department. [facility]. [facility]. This is a research study note. [...] not yet complete. Rob Arcos MD [facility] Outcomes Research Department Research Fellow [facility] Allergies As of Date: 03/25/2022 (No Known Allergies) Date Reviewed: 03/23/2022 Reviewed by: Janine Holliday RN - Fully Assessed Reason for Visit: Research F/U [444] Prescriptions as of 03/25/2022 - prochlorperazine (COMPAZINE) [...] Encounter Status:Closed by ROB FROST on 03/25/22 [facility] HISTORY PHYSICALon HISTORY PHYSICAL HNO ID: [id number] Author: Karime Lim PA-C Service: ? Author Type: Physician Review Appraiser Type: HANDP Filed: 02/16/2022 9:11 AM Note Text: HISTORY AND PHYSICAL EXAMINATION SERVICE DATE: 02/16/2022 SERVICE TIME: 8:49 AM PRIMARY CARE PHYSICIAN: No primary care provider on file. REASON FOR VISIT: Hoang Whiet is a 46 year old male who [...] EGD - PAST SURGICAL HISTORY OF Right 2012 inguinal - PAST SURGICAL HISTORY OF 2019 [...] year Neuro: No history of TIA's, stroke, WARP SPLITTER tumor, impaired sensorium, hemiplegia, paraplegia or quadraplegia. No neurological symptoms or problems. Respiratory: No history of current cough or dyspnea, or pneumonia in the past 6 weeks. No history of respiratory/pulmonary symptoms or problems. Cardiovascular: +severe TR with right atrial and ventricular dilation Negative for Recent SD, Angina, Arrhythmia, CAD, Chest Pain GI: See [...] Pulses: Carotid (more content not included)... Normal [facility] MRI RECTUM WO/W IVCONon 04-0 [facility] Drug Screen,Urineon 12-24-19 Amphetamine Screen,Urine Negative Normal Negative [facility] Comment on above: Performed By: #### U [facility] #### [address] Barbiturate Screen,Urine Negative Normal Negative [facility] Comment on above: Performed By: #### U RDS #### [address] Benzodiazepines Screen,Urine Negative Normal Negative [facility] Comment on above: Performed By: #### U RDS #### [address] Cannabinoid Screen,Urine Positive High Negative [facility] Comment on above: Result Comment: Thes e are unconfirmed results and should not be used for legal purposes. Drug Cut-Off Concentration: AMPH 1000 ng/mL SAM 200 ng/mL ROYER 200 ng/mL COCM 300 ng/mL OP 300 ng/mL PCP 25 ng/mL THC 20 ng/mL PERFORMED BY: [place] [address] PATHOLOGIST POLICE RADIO DISPATCHER BRISEYDA FAULKNER M.D. Performed By: #### U RDS #### [address] Cocaine Screen,Urine Negative Normal Negative [facility] Comment on above: Performed By: #### U RDS #### [address] Opiate Screen,Urine Negative Normal Negative [facility] Comment on above: Performed By: #### U RDS #### [address] Phencyclidine Screen,Urine Negative Normal Negative [facility] Comment on above: Performed By: #### U RDS #### [address] Anam 12-24-2021 L ---- Specimen: [id number] Received: 12/27/21 Status: SHAHANA Hidalgo Num: [id number] Spec Type: Surgical Subm Dr: Kishan Jaquez Jr, DO Tissues: A Duodenum - Biopsy (DUODENUM) B Colon Biopsy (RECTOSIGMOID) Procedures: HE Stain/4, Gross/Micro L4/2 Patient Age/Sex Location Account Attending Physician Hoang White/M [id number] Kishan Jaquez Jr, DO SPEC NUM: [id number] RECD: 12/27/21 STATUS: SHAHANA HIDALGO NUM: [id number] YVAN: 12/24/21- DR: Kishan Jaquez Jr, DO ENTERED: 12/27/[address]: LUZ ELENA TYPE: Surgical DEPT: S ORDERED: [...] pathologist, concurs with the above diagnosis. Specimen: [id number] Received: 12/27/21 Status: SHAHANA Kisha Num: [id number] Spec Type: Surgical Subm Dr: Kishan Jaquez Jr, DO Tissues: A Duodenum - Biopsy (DUODENUM) B Colon Biopsy (RECTOSIGMOID) Procedures: HE Stain/4, Gross/Micro L4/2 Patient: Hoang White [id number] (Continued) Specimen: [id number] Received: 12/27/21 (Continued) Signed (signature on file) Jorge Mc MD 12/28/21 1718 Specimen: Received: 12/27/21 Status: SHAHANA Hidalgo Num: [id number] Spec Type: Surgical Subm Dr: Kishan Jaquez Jr, DO Tissues: A Duodenum - Biopsy (DUODENUM) B Colon Biopsy (RECTOSIGMOID) Procedures: CHARLENE Stain/4, Gross/Micro L4/2 Patient: Hoang White [id number] (Continued) Specimen: Received: 12/27/21 (Continued) Clinical Information Abdominal pain, [...] characteristics were determined by the Laboratory of [facility]. Immunohistochemistry assays have not been validated on decalcified tissue. Results should be interpreted with caution given the possibility of false negative results on decalcified specimens. They have not been cleared by the [place] Food and Drug Administration. The FDA has determined that such clearance or approval is not (more content not included)... Normal [facility] COVID-19 FRon 12-22-2021 SARS-CoV-2 (COVID-19) RNA FÉLIX+probe Ql (Unsp spec) Negative Normal Negative [facility] Comment on above: Order Comment: Healt hcare Worker?: N Result Comment: Testing for SARS-CoV-2 by RT-PCR This test was developed and its performance characteristics determined by [place] [place] [employer] and validated at the [facility]. This test has not been FDA cleared [...] is terminated or revoked sooner. PERFORMED BY: [facility] [address] [place] [address] PATHOLOGIST POLICE RADIO DISPATCHER BRISEYDA FAULKNER M.D. Performed By: #### C OVID 19 [facility] #### [facility] [address] LACTOFERRIN FECAL QUANTon Lactoferrin, Fecal, Quant. 5.75 ug/mL(g) Normal 0.00-7.24 [facility] Comment on above: Result Comment: . Baseline [...] (IBS). Performed By: #### L ACTFQ #### [facility] [address] [place] [address] Dr. Nazia Faria CALPROTECTIN, FECALon 2021 Calprotectin, Fecal 139 ug/g Critically high 0-120 [facility] Comment on above: Result Comment: Conc entration Interpretation Follow-Up <16 - 50 ug/g Normal None >50 -120 ug/g Borderline Re-evaluate in 4-6 weeks >120 ug/g Abnormal Repeat as clinically indicated Performed By: #### C ALPOO #### [facility] [address] [place] [address] Dr. Nazia Faria CLOSTRIDIUM DIFFICILE PCRon 12-02-2021 C difficile Toxin Gene FÉLIX Negative Normal Negative [facility] Comment on above: Performed By: #### C DIFNAA #### [facility] [address] [address] [address] Nazia Faria GIARDIA LAMBLIA DETECTIONon 12-01-2021 Giardia lamblia Ag, EIA Negative Normal Negative [facility] Comment on above: Performed By: #### G SARTHAK #### [facility] [address] [address] [address] Nazia Faria CELIAC ANTIBODIES PROFILEon 11-30-2021 Deamidated Gliadin Abs, IgA 5 units Normal 0-19 [facility] Comment on above: Result Comment: Nega tive 0 - 19 Weak Positive 20 - 30 Moderate to Strong Positive >30 Performed By: #### C ELIACP #### [facility] [address] [address] [address] Nazia Faria Deamidated Gliadin Abs, IgG 2 units Normal 0-19 [facility] Comment on above: Result Comment: Nega tive 0 - 19 Weak Positive 20 - 30 Moderate to Strong Positive >30 Performed By: #### C ELIACP #### [facility] [address] [place] [address] Dr. Nazia Faria Endomysial Antibody IgA Positive Abnormal Negative [facility] Comment on above: Performed By: #### C ELIACP #### [facility] [address] [address] [address] Nazia Faria Immunoglobulin A, Qn, Serum 9 mg/dL Critically low 90-386 [facility] Comment on above: Result Comment: Resu lt confirmed on concentration. Performed By: #### C ELIACP #### [facility] [address] [address] [address] Nazia Faria t-Transglutaminase (tTG) IgA <2 Normal 0-3 [facility] Comment on above: Result Comment: Nega tive 0 - 3 Weak Positive 4 - 10 Positive >10 . Tissue Transglutaminase (tTG) has been identified as the endomysial antigen. Studies have demonstr- ated that endomysial IgA antibodies have over 99% specificity for gluten sensitive enteropathy. Performed By: #### C ELIACP #### [facility] Laboratory [address] [address] [address] Nazia Faria t-Transglutaminase (tTG) IgG 4 U/mL Normal 0-5 [facility] Comment on above: Result Comment: Nega tive 0 - 5 Weak Positive 6 - 9 Positive >9 Performed By: #### C ELIACP #### [facility] [address] [place] [address] Dr. Nazia Faria HIV 1 AND 2 WITH REFLEXon HIV Screen 4th Generation wRfx Non-Reactive Normal Non Reactive [facility] Comment on above: Result Comment: HIV Negative HIV-1/HIV-2 antibodies and HIV-1 p24 antigen were NOT detected. There is no laboratory evidence of HIV infection. Performed By: #### C BC #### [facility] [address] [place] [address] Dr. Nazia Faria CBC AUTO DIFFon 11-29-2021 BASO # 0.1 103/ul Normal 0.0-0.1 [facility] Comment on above: Performed By: #### C BC #### [facility] [address] [place] [address] Dr. Nazia Faria Basophils/100 WBC (Bld) 0.6 % Normal 0.2-2.0 [facility] Comment on above: Performed By: #### C BC #### [facility] [address] [place] [address] Dr. Nazia Faria EO # 0.2 103/ul Normal 0.0-0.7 [facility] Comment on above: Performed By: #### C BC #### [facility] [address] [place] [address] Dr. Nazia Faria Eosinophils/100 WBC (Bld) 2.4 % Normal 0.9-7.0 [facility] Comment on above: Performed By: #### C BC #### [facility] [address] [place] [address] Dr. Nazia Faria Erythrocyte distribution width (RBC) [Ratio] 13.0 % Normal 11.0-15.0 [facility] Comment on above: Performed By: #### C BC #### [facility] [address] [place] [address] Dr. Nazia Faria Hematocrit (Bld) [Volume fraction] 42.8 % Normal 42.0-54.0 [facility] Comment on above: Performed By: #### C BC #### [facility] [address] [place] [address] Dr. Naiza Faria Hemoglobin (Bld) [Mass/Vol] 14.1 g/dL Normal 14.0-18.0 [facility] Comment on above: Performed By: #### C BC #### [facility] [address] [place] [address] Dr. Nazia Faria IG # 0.03 10e3/ul Normal 0.00-0.03 [facility] Comment on above: Performed By: #### C BC #### [facility] [address] [place] [address] Dr. Nazia Faria IG % 0.4 % Normal 0.0-0.5 [facility] Comment on above: Performed By: #### C BC #### [facility] [address] [place] [address] Dr. Nazia Faria LYMPH # 1.5 103/ul Normal 1.2-3.8 [facility] Comment on above: Performed By: #### C BC #### [facility] [address] [place] [address] Dr. Nazia Faria Lymphocytes/100 WBC (Bld) 17.9 % Critically low 20.5-60.0 [facility] Comment on above: Performed By: #### C BC #### [facility] [address] [place] [address] Dr. Nazia Faria MANUAL DIFF REQ NO Normal [facility] Comment on above: Performed By: #### C BC #### [facility] [address] [place] [address] Dr. Nazia Faria MCH (RBC) [Entitic mass] 30.5 pg Normal 25.9-34.0 [facility] Comment on above: Performed By: #### C BC #### [facility] [address] [place] [address] Dr. Nazia Faria MCHC (RBC) [Mass/Vol] 32.9 g/dL Normal 29.9-35.2 [facility] Comment on above: Performed By: #### C BC #### [facility] [address] [address] [address] Nazia Faria MCV (RBC) [Entitic vol] 92.4 fL Normal 80.0-94.0 [facility] Comment on above: Performed By: #### C BC #### [facility] [address] [address] [address] Nazia Faria MONO # 0.7 103/ul Normal 0.3-0.8 [facility] Comment on above: Performed By: #### C BC #### [facility] [address] [address] [address] Nazia Faria Monocytes/100 WBC (Bld) 8.3 % Normal 1.7-12.0 [facility] Comment on above: Performed By: #### C BC #### [facility] [address] [place] [address] Dr. Nazia Faria NEUT # 5.7 103/ul Normal 1.4-6.5 [facility] Comment on above: Performed By: #### C BC #### [facility] [address] [place] [address] Dr. Nazia Faria Neutrophils/100 WBC (Bld) 70.4 % Normal 43.0-75.0 [facility] Comment on above: Performed By: #### C BC #### [facility] [address] [address] [address] Nazia Faria Platelet mean volume (Bld) [Entitic vol] 10.3 fL Normal 9.5-13.5 [facility] Comment on above: Performed By: #### C BC #### [facility] [address] [address] [address] Nazia Faria PLT 379 103/ul Normal 150-450 [facility] Comment on above: Performed By: #### C BC #### [facility] [address] [address] [address] Nazia Faria RBC 4.63 106/ul Critically low 4.70-6.10 [facility] Comment on above: Performed By: #### C BC #### [facility] [address] [address] [address] Nazia Faria WBC 8.1 103/ul Normal 4.0-11.0 [facility] Comment on above: Performed By: #### C BC #### [facility] [address] [address] [address] Nazia Faria CULTURE STOOLon 11-29-2021 CULTURE STOOL Culture Observations : NO GROWTH SALMONELLA, SHIGELLA, YERSINIA, CAMPY, E.COLI 0157, OR STAPH AT 72 HRS Normal [facility] Comment on above: Performed By: #### C BC #### [facility] [address] [place] [address] Dr. Nazia Faria LIPID PROFILEon 11-29-2021 CHOL-HDL RATIO NORM SEE BELOW Normal [facility] Comment on above: Result Comment: 3.3 - 4.4 LOW RISK 4.4 - 7.1 AVERAGE RISK 7.1 - 11.0 MODERATE RISK >11.0 HIGH RISK Performed By: #### C BC #### [facility] [address] [place] [address] Dr. Nazia Faria Cholesterol [Mass/Vol] 170 mg/dL Normal <=200 [facility] Comment on above: Performed By: #### C BC #### [facility] [address] [place] [address] Dr. Nazia Faria Cholesterol in HDL [Mass/Vol] 48 mg/dL Normal [facility] Comment on above: Performed By: #### C BC #### [facility] [address] [place] [address] Dr. Nazia Faria Cholesterol in LDL [Mass/Vol] 111.4 mg/dL Normal [facility] Comment on above: Performed By: #### C BC #### [facility] [address] [place] [address] Dr. Nazia Faria Cholesterol.total/C holesterol in HDL [Mass ratio] 3.5 {ratio} Normal [facility] Comment on above: Performed By: #### C BC #### [facility] [address] [place] [address] Dr. Nazia Faria HDL NORMAL > or = 60 mg/dl - LO W CARDIOVASCULAR RISK <40 mg/dl - HIGH CARDIOVASCULAR RISK Normal [facility] Comment on above: Performed By: #### C BC #### [facility] [address] [address] [address] Nazia Faria LDL CALC NORMAL SEE BELOW Normal [facility] Comment on above: Result Comment: <100 mg/dl OPTIMAL 100 - 129 mg/dl NEAR OR ABOVE OPTIMAL 130 - 159 mg/dl BORDERLINE HIGH 160 - 189 mg/dl HIGH >190 mg/dl VERY HIGH Performed By: #### C BC #### [facility] [address] [address] [address] Nazia Faria Triglyceride [Mass/Vol] 53 mg/dL Normal <=150 [facility] Comment on above: Performed By: #### C BC #### [facility] [address] [place] [address] Dr. Nazia Faria VLDL CALC 10.6 mg/dL Normal [facility] Comment on above: Performed By: #### C BC #### [facility] [address] [address] [address] Nazia Faria PROF 14(COMP METB)on 022 Albumin [Mass/Vol] 3.6 g/dL Normal 3.5-5.0 [facility] Comment on above: Performed By: #### C BC #### [facility] [address] [place] [address] Dr. Nazia Faria Albumin/Globulin [Mass ratio] 0.9 {ratio} Normal [facility] Comment on above: Performed By: #### C BC #### [facility] [address] [address] [address] Nazia Faria ALP [Catalytic activity/Vol] 104 U/L Normal 38-126 [facility] Comment on above: Performed By: #### C BC #### [facility] [address] [place] [address] Dr. Nazia Faria ALT [Catalytic activity/Vol] 16 U/L Critically low 21-72 [facility] Comment on above: Performed By: #### C BC #### [facility] [address] [address] [address] Nazia Faria Anion gap [Moles/Vol] 11.3 mmol/L Normal [facility] Comment on above: Performed By: #### C BC #### [facility] [address] [address] [address] Nazia Faria AST [Catalytic activity/Vol] 14 U/L Critically low 17-59 [facility] Comment on above: Performed By: #### C BC #### [facility] [address] [address] [address] Nazia Faria Bilirubin [Mass/Vol] 0.6 mg/dL Normal 0.2-1.3 [facility] Comment on above: Performed By: #### C BC #### [facility] [address] [place] [address] Dr. Nazia Faria Calcium [Mass/Vol] 9.1 mg/dL Normal 8.4-10.2 [facility] Comment on above: Performed By: #### C BC #### [facility] [address] [place] [address] Dr. Nazia Faria Chloride [Moles/Vol] 105 mmol/L Normal 98-107 [facility] Comment on above: Performed By: #### C BC #### [facility] [address] [place] [address] Dr. Nazia Faria CO2 [Moles/Vol] 25.8 mmol/L Normal 22.0-30.0 [facility] Comment on above: Performed By: #### C BC #### [facility] [address] [place] [address] Dr. Nazia Faria Creatinine [Mass/Vol] 0.78 mg/dL Normal 0.66-1.25 [facility] Comment on above: Performed By: #### C BC #### [facility] [address] [place] [address] Dr. Nazia Faria EGFR-AF ECUADOREAN >60 Normal >=60 [facility] Comment on above: Performed By: #### C BC #### [facility] [address] [place] [address] Dr. Nazia Faria EGFR-NON AF ECUADOREAN >60 Normal >=60 [facility] Comment on above: Performed By: #### C BC #### [facility] [address] [place] [address] Dr. Nazia Faria Globulin (S) [Mass/Vol] 4.1 g/dL Normal [facility] Comment on above: Performed By: #### C BC #### [facility] [address] [place] [address] Dr. Nazia Faria Glucose [Mass/Vol] 95 mg/dL Normal 74-106 [facility] Comment on above: Performed By: #### C BC #### [facility] [address] [place] [address] Dr. Nazia Faria Potassium [Moles/Vol] 4.1 mmol/L Normal 3.4-5.0 [facility] Comment on above: Performed By: #### C BC #### [facility] [address] [place] [address] Dr. Nazia Faria Protein [Mass/Vol] 7.7 g/dL Normal 6.1-8.2 [facility] Comment on above: Performed By: #### C BC #### [facility] [address] [place] [address] Dr. Nazia Faria Sodium [Moles/Vol] 138 mmol/L Normal 137-145 [facility] Comment on above: Performed By: #### C BC #### [facility] [address] [place] [address] Dr. Nazia Faria Urea nitrogen [Mass/Vol] 23.0 mg/dL Critically high 9.0-20.0 [facility] Comment on above: Performed By: #### C BC #### [facility] [address] [place] [address] Dr. Nazia Faria Urea nitrogen/Creatinine [Mass ratio] 29.5 mg/mg Normal [facility] Comment on above: Performed By: #### C BC #### [facility] [address] [place] [address] Dr. Nazia Faria TSHon 11-29-2021 TSH 1.178 uIU/mL Normal 0.470-4.680 [facility] Comment on above: Performed By: #### C BC #### [facility] [address] [place] [address] Dr. aNzia Faria TSH RANGE SEE BELOW Normal [facility] Comment on above: Result Comment: <0.3 4 UIU/ml HYPERTHYROID 0.34-5.60 UIU/ml EUTHYROID >5.60 UIU/ml HYPOTHYROID Performed By: #### C BC #### [facility] [address] [place] [address] Dr. Nazia Faria CBC AUTO DIFFon 09-16-2021 BASO # 0.1 103/ul Normal 0.0-0.1 [facility] Comment on above: Performed By: #### C BC #### [facility] [address] [place] [address] Dr. Nazia Faria Basophils/100 WBC (Bld) 1.0 % Normal 0.2-2.0 [facility] Comment on above: Performed By: #### C BC #### [facility] [address] [place] [address] Dr. Nazia Faria EO # 0.2 103/ul Normal 0.0-0.7 [facility] Comment on above: Performed By: #### C BC #### [facility] [address] [place] [address] Dr. Nazia Faria Eosinophils/100 WBC (Bld) 2.8 % Normal 0.9-7.0 [facility] Comment on above: Performed By: #### C BC #### [facility] [address] [place] [address] Dr. Nazia Faria Erythrocyte distribution width (RBC) [Ratio] 12.7 % Normal 11.0-15.0 [facility] Comment on above: Performed By: #### C BC #### [facility] [address] [place] [address] Dr. Nazia Faria Hematocrit (Bld) [Volume fraction] 42.8 % Normal 42.0-54.0 [facility] Comment on above: Performed By: #### C BC #### [facility] [address] [place] [address] Dr. Nazia Faria Hemoglobin (Bld) [Mass/Vol] 14.8 g/dL Normal 14.0-18.0 [facility] Comment on above: Performed By: #### C BC #### [facility] [address] [place] [address] Dr. Nazia Faria IG # 0.02 10e3/ul Normal 0.00-0.03 [facility] Comment on above: Performed By: #### C BC #### [facility] [address] [place] [address] Dr. Nazia Faria IG % 0.3 % Normal 0.0-0.5 [facility] Comment on above: Performed By: #### C BC #### [facility] [address] [place] [address] Dr. Nazia Faria LYMPH # 2.0 103/ul Normal 1.2-3.8 [facility] Comment on above: Performed By: #### C BC #### [facility] [address] [place] [address] Dr. Nazia Faria Lymphocytes/100 WBC (Bld) 25.7 % Normal 20.5-60.0 [facility] Comment on above: Performed By: #### C BC #### [facility] [address] [place] [address] Dr. Nazia Faria MANUAL DIFF REQ NO Normal [facility] Comment on above: Performed By: #### C BC #### [facility] [address] [place] [address] Dr. Nazia Faria MCH (RBC) [Entitic mass] 31.0 pg Normal 25.9-34.0 [facility] Comment on above: Performed By: #### C BC #### [facility] [address] [place] [address] Dr. Nazia Faria MCHC (RBC) [Mass/Vol] 34.6 g/dL Normal 29.9-35.2 [facility] Comment on above: Performed By: #### C BC #### [facility] [address] [place] [address] Dr. Nazia Faria MCV (RBC) [Entitic vol] 89.5 fL Normal 80.0-94.0 [facility] Comment on above: Performed By: #### C BC #### [facility] [address] [place] [address] Dr. Nazia Faria MONO # 0.5 103/ul Normal 0.3-0.8 [facility] Comment on above: Performed By: #### C BC #### [facility] [address] [place] [address] Dr. Nazia Faria Monocytes/100 WBC (Bld) 6.0 % Normal 1.7-12.0 [facility] Comment on above: Performed By: #### C BC #### [facility] [address] [place] [address] Dr. Nazia Faria NEUT # 5.0 103/ul Normal 1.4-6.5 [facility] Comment on above: Performed By: #### C BC #### [facility] [address] [place] [address] Dr. Nazia Faria Neutrophils/100 WBC (Bld) 64.2 % Normal 43.0-75.0 [facility] Comment on above: Performed By: #### C BC #### [facility] [address] [place] [address] Dr. Nazia Faria Platelet mean volume (Bld) [Entitic vol] 9.6 fL Normal 9.5-13.5 [facility] Comment on above: Performed By: #### C BC #### [facility] [address] [place] [address] Dr. Nazia Faria PLT 277 103/ul Normal 150-450 [facility] Comment on above: Performed By: #### C BC #### [facility] [address] [place] [address] Dr. Nazia Faria RBC 4.78 106/ul Normal 4.70-6.10 [facility] Comment on above: Performed By: #### C BC #### [facility] [address] [place] [address] Dr. Nazia Faria WBC 7.8 103/ul Normal 4.0-11.0 [facility] Comment on above: Performed By: #### C #### [facility] [address] [address] [address] ABD/PELV W CONon [...] KANU CARNEY Date: 2021-09-16 20:03 Normal [facility] PROF CHEM 8 (BAS METB)on Anion gap [Moles/Vol] 14.0 mmol/L Normal [facility] Comment on above: Performed By: #### B MP #### [facility] [address] [address] [address] Nazia Faria Calcium [Mass/Vol] 8.3 mg/dL Critically low 8.4-10.2 [facility] Comment on above: Performed By: #### B MP #### [facility] [address] [address] [address] Nazia Faria Chloride [Moles/Vol] 104 mmol/L Normal 98-107 [facility] Comment on above: Performed By: #### B MP #### [facility] [address] [address] [address] Nazia Faria CO2 [Moles/Vol] 23.7 mmol/L Normal 22.0-30.0 [facility] Comment on above: Performed By: #### B MP #### [facility] [address] [place] [address] Dr. Nazia Faria Creatinine [Mass/Vol] 0.86 mg/dL Normal 0.66-1.25 [facility] Comment on above: Performed By: #### B MP #### [facility] [address] [address] [address] Nazia Faria EGFR-AF ECUADOREAN >60 Normal >=60 [facility] Comment on above: Performed By: #### B MP #### [facility] [address] [place] [address] Dr. Nazia Faria EGFR-NON AF ECUADOREAN >60 Normal >=60 [facility] Comment on above: Performed By: #### B MP #### [facility] [address] [address] [address] Nazia Faria Glucose [Mass/Vol] 77 mg/dL Normal 74-106 [facility] Comment on above: Performed By: #### B MP #### [facility] [address] [address] [address] Nazia Faria Potassium [Moles/Vol] 3.7 mmol/L Normal 3.4-5.0 [facility] Comment on above: Performed By: #### B MP #### [facility] [address] [address] [address] Nazia Faria Sodium [Moles/Vol] 138 mmol/L Normal 137-145 [facility] Comment on above: Performed By: #### B MP #### [facility] [address] [place] [address] Dr. Nazia Faria Urea nitrogen [Mass/Vol] 9.0 mg/dL Normal 9.0-20.0 [facility] Comment on above: Performed By: #### B MP #### [facility] [address] [place] [address] Dr. Nazia Faria Urea nitrogen/Creatinine [Mass ratio] 10.5 mg/mg Normal [facility] Comment on above: Performed By: #### B MP #### [facility] [address] [place] [address] Dr. Nazia Faria CARDIAC VIVIANA ADMITon 021 CK [Catalytic activity/Vol] 68 U/L Normal 55-170 [facility] Comment on above: Performed By: #### C BC #### [facility] [address] [place] [address] Dr. Nazia Faria CK.MB [Mass/Vol] 0.95 ng/mL Normal <=2.37 [facility] Comment on above: Performed By: #### C BC #### [facility] [address] [place] [address] Dr. Nazia Faria HSTROP 4.9 pg/mL Normal 4.0-42.2 [facility] Comment on above: Result Comment: CUT- OFF POINTS HAVE BEEN ESTABLISHED BASED ON THE FOURTH UNIVERSAL DEFINITIONS OF MYOCARDIAL INFARCTION. THE UPPER REFERENCE LIMIT (URL) OF TROPONIN, DEFINED THE 99TH PERCENTILE OF cTnI DISTRIBUTION IN A REFERENCE POPULATION, HAS BEEN CONFIRMED THE DECISION THRESHOLD FOR SD DIAGNOSIS. Performed By: #### C BC #### [facility] [address] [place] [address] Dr. Nazia Faria ROLY 25.0 ng/mL Normal <=121.0 [facility] Comment on above: Performed By: #### C BC #### [facility] [address] [place] [address] Dr. Nazia Faria CBC AUTO DIFFon 08-27-2021 BASO # 0.1 103/ul Normal 0.0-0.1 [facility] Comment on above: Performed By: #### C BC #### [facility] [address] [place] [address] Dr. Nazia Faria Basophils/100 WBC (Bld) 0.6 % Normal 0.2-2.0 [facility] Comment on above: Performed By: #### C BC #### [facility] [address] [place] [address] Dr. Nazia Faria EO # 0.3 103/ul Normal 0.0-0.7 [facility] Comment on above: Performed By: #### C BC #### [facility] [address] [place] [address] Dr. Nazia Faria Eosinophils/100 WBC (Bld) 2.9 % Normal 0.9-7.0 [facility] Comment on above: Performed By: #### C BC #### [facility] [address] [place] [address] Dr. Nazia Faria Erythrocyte distribution width (RBC) [Ratio] 12.8 % Normal 11.0-15.0 [facility] Comment on above: Performed By: #### C BC #### [facility] [address] [place] [address] Dr. Nazia Faria Hematocrit (Bld) [Volume fraction] 43.5 % Normal 42.0-54.0 [facility] Comment on above: Performed By: #### C BC #### [facility] [address] [place] [address] Dr. Nazia Faria Hemoglobin (Bld) [Mass/Vol] 15.2 g/dL Normal 14.0-18.0 [facility] Comment on above: Performed By: #### C BC #### [facility] [address] [place] [address] Dr. Nazia Faria IG # 0.02 10e3/ul Normal 0.00-0.03 [facility] Comment on above: Performed By: #### C BC #### [facility] [address] [place] [address] Dr. Nazia Faria IG % 0.2 % Normal 0.0-0.5 [facility] Comment on above: Performed By: #### C BC #### [facility] [address] [place] [address] Dr. Nazia Faria LYMPH # 1.6 103/ul Normal 1.2-3.8 [facility] Comment on above: Performed By: #### C BC #### [facility] [address] [place] [address] Dr. Nazia Faria Lymphocytes/100 WBC (Bld) 15.5 % Critically low 20.5-60.0 [facility] Comment on above: Performed By: #### C BC #### [facility] [address] [place] [address] Dr. Nazia Faria MANUAL DIFF REQ NO Normal [facility] Comment on above: Performed By: #### C BC #### [facility] [address] [place] [address] Dr. Nazia Faria MCH (RBC) [Entitic mass] 31.1 pg Normal 25.9-34.0 [facility] Comment on above: Performed By: #### C BC #### [facility] [address] [place] [address] Dr. Nazia Faria MCHC (RBC) [Mass/Vol] 34.9 g/dL Normal 29.9-35.2 [facility] Comment on above: Performed By: #### C BC #### [facility] [address] [place] [address] Dr. Nazia Faria MCV (RBC) [Entitic vol] 89.0 fL Normal 80.0-94.0 [facility] Comment on above: Performed By: #### C BC #### [facility] [address] [place] [address] Dr. Nazia Faria MONO # 0.6 103/ul Normal 0.3-0.8 [facility] Comment on above: Performed By: #### C BC #### [facility] [address] [place] [address] Dr. Nazia Faria Monocytes/100 WBC (Bld) 6.2 % Normal 1.7-12.0 [facility] Comment on above: Performed By: #### C BC #### [facility] [address] [place] [address] Dr. Nzaia Faria NEUT # 7.6 103/ul Critically high 1.4-6.5 [facility] Comment on above: Performed By: #### C BC #### [facility] [address] [place] [address] Dr. Nazia Faria Neutrophils/100 WBC (Bld) 74.6 % Normal 43.0-75.0 [facility] Comment on above: Performed By: #### C BC #### [facility] [address] [place] [address] Dr. Nazia Faria Platelet mean volume (Bld) [Entitic vol] 10.0 fL Normal 9.5-13.5 [facility] Comment on above: Performed By: #### C BC #### [facility] [address] [place] [address] Dr. Nazia Faria PLT 280 103/ul Normal 150-450 [facility] Comment on above: Performed By: #### C BC #### [facility] [address] [place] [address] Dr. Nazia Faria RBC 4.89 106/ul Normal 4.70-6.10 [facility] Comment on above: Performed By: #### C BC #### [facility] [address] [place] [address] Dr. Nazia Faria WBC 10.2 103/ul Normal 4.0-11.0 [facility] Comment on above: Performed By: #### C BC #### [facility] [address] [place] [address] ABD/PELV W CONon 08-27-[address] ABD/PELV W CON CT ABDOMEN AND [...] KELLY HERNANDEZ Date: 2021-08-27 18:23 Normal [facility] LIPASEon 08-27-2021 Lipase [Catalytic activity/Vol] 112.0 U/L Normal 23.0-300.0 [facility] Comment on above: Performed By: #### C BC #### [facility] [address] [address] [address] Nazia Faria PH VENOUS BLOODon 08-27-2021 PCO2 VENOUS 35.6 mmHg Critically low 40.0-52.0 [facility] Comment on above: Performed By: #### P HVEN #### [facility] [address] [address] [address] Nazia Faria pH VENOUS 7.43 Normal 7.33-7.43 [facility] Comment on above: Performed By: #### P HVEN #### [facility] [address] [place] [address] Dr. Nazia Faria PROF 14(COMP METB)on 021 Albumin [Mass/Vol] 3.3 g/dL Critically low 3.5-5.0 [facility] Comment on above: Performed By: #### C BC #### [facility] [address] [place] [address] Dr. Nazia Faria Albumin/Globulin [Mass ratio] 0.8 {ratio} Normal [facility] Comment on above: Performed By: #### C BC #### [facility] [address] [place] [address] Dr. Nazia Faria ALP [Catalytic activity/Vol] 95 U/L Normal 38-126 [facility] Comment on above: Performed By: #### C BC #### [facility] [address] [place] [address] Dr. Nazia Faria ALT [Catalytic activity/Vol] 14 U/L Critically low 21-72 [facility] Comment on above: Performed By: #### C BC #### [facility] [address] [place] [address] Dr. Nazia Faria Anion gap [Moles/Vol] 13.4 mmol/L Normal [facility] Comment on above: Performed By: #### C BC #### [facility] [address] [place] [address] Dr. Nazia Faria AST [Catalytic activity/Vol] 16 U/L Critically low 17-59 [facility] Comment on above: Performed By: #### C BC #### [facility] [address] [place] [address] Dr. Nazia Faria Bilirubin [Mass/Vol] 0.6 mg/dL Normal 0.2-1.3 [facility] Comment on above: Performed By: #### C BC #### [facility] [address] [place] [address] Dr. Nazia Faria Calcium [Mass/Vol] 8.8 mg/dL Normal 8.4-10.2 [facility] Comment on above: Performed By: #### C BC #### [facility] [address] [place] [address] Dr. Nazia Faria Chloride [Moles/Vol] 106 mmol/L Normal 98-107 [facility] Comment on above: Performed By: #### C BC #### [facility] [address] [place] [address] Dr. Nazia Faria CO2 [Moles/Vol] 23.4 mmol/L Normal 22.0-30.0 [facility] Comment on above: Performed By: #### C BC #### [facility] [address] [place] [address] Dr. Nazia Faria Creatinine [Mass/Vol] 0.78 mg/dL Normal 0.66-1.25 [facility] Comment on above: Performed By: #### C BC #### [facility] [address] [place] [address] Dr. Nazia Faria EGFR-AF ECUADOREAN >60 Normal >=60 [facility] Comment on above: Performed By: #### C BC #### [facility] [address] [place] [address] Dr. Nazia Faria EGFR-NON AF ECUADOREAN >60 Normal >=60 [facility] Comment on above: Performed By: #### C BC #### [facility] [address] [place] [address] Dr. Nazia Faria Globulin (S) [Mass/Vol] 4.0 g/dL Normal [facility] Comment on above: Performed By: #### C BC #### [facility] [address] [place] [address] Dr. Nazia Faria Glucose [Mass/Vol] 106 mg/dL Normal 74-106 [facility] Comment on above: Performed By: #### C BC #### [facility] [address] [place] [address] Dr. Nazia Faria Potassium [Moles/Vol] 3.8 mmol/L Normal 3.4-5.0 [facility] Comment on above: Performed By: #### C BC #### [facility] [address] [address] [address] Nazia Faria Protein [Mass/Vol] 7.3 g/dL Normal 6.1-8.2 [facility] Comment on above: Performed By: #### C BC #### [facility] [address] [address] [address] Nazia Faria Sodium [Moles/Vol] 139 mmol/L Normal 137-145 [facility] Comment on above: Performed By: #### C BC #### [facility] [address] [address] [address] Nazia Faria Urea nitrogen [Mass/Vol] 5.0 mg/dL Critically low 9.0-20.0 [facility] Comment on above: Performed By: #### C BC #### [facility] [address] [address] [address] Nazia Faria Urea nitrogen/Creatinine [Mass ratio] 6.4 mg/mg Normal [facility] Comment on above: Performed By: #### C BC #### [facility] [address] [address] [address] Nazia Faria Vital Signs Date Time Vital Sign Value Performing Clinician Desire hays 02-09-2023 13:49-0400 Body height 172.7 cm Pacc 4 Work Phone: [facility] 02-09-2023 13:49-0400 Body temperature 97 [degF] Pacc 4 Work Phone: [facility] 02-09-2023 13:49-0400 Body weight 61.24 kg Pacc 4 Work Phone: [facility] 02-09-2023 13:49-0400 Diastolic blood pressure 67 mm[Hg] Pacc 4 Work Phone: [facility] 02-09-2023 13:49-0400 Heart rate 78 /min Pacc 4 Work Phone: [facility] 02-09-2023 13:49-0400 Respiratory rate 16 /min Pacc 4 Work Phone: [facility] 02-09-2023 13:49-0400 SaO2% (BldA) [Mass fraction] 99 % Pac 4 Work Phone: [facility] 02-09-2023 13:49-0400 Systolic blood pressure 130 mm[Hg] Pac 4 Work Phone: [facility] 01-17-2023 10:22-0400 Body height 172.7 cm Ana Enriquez MD Work Phone: [facility] 01-17-2023 10:22-0400 Body temperature 97.3 [degF] Ana Enriquez MD Work Phone: [facility] 01-17-2023 10:22-0400 Body weight 58.97 kg Ana Enriquez MD Work Phone: [facility] 01-17-2023 10:22-0400 Diastolic blood pressure 55 mm[Hg] Ana Enriquez MD Work Phone: [facility] 01-17-2023 10:22-0400 Heart rate 55 /min Ana Enriquez MD Work Phone: [facility] 01-17-2023 10:22-0400 SaO2% (BldA) [Mass fraction] 95 % Ana Enriquez MD Work Phone: [facility] 01-17-2023 10:22-0400 Systolic blood pressure 98 mm[Hg] Ana Enriquez MD Work Phone: [facility] 12-06-2022 10:35-0500 Body height 172.7 cm Kaylin Aragon APRN.CONCRETE PIPE MACHINE OPERATOR Work Phone: [facility] 12-06-2022 10:35-0500 Body temperature 97.59 [degF] Kaylin Aragon APRN.CONCRETE PIPE MACHINE OPERATOR Work Phone: [facility] 12-06-2022 10:35-0500 Body weight 58.97 kg Kaylin Aragon APRN.CONCRETE PIPE MACHINE OPERATOR Work Phone: [facility] 12-06-2022 10:35-0500 Diastolic blood pressure 62 mm[Hg] Kaylin Aragon APRN.CONCRETE PIPE MACHINE OPERATOR Work Phone: [facility] 12-06-2022 10:35-0500 Heart rate 73 /min Kaylin Aragon APRN.CONCRETE PIPE MACHINE OPERATOR Work Phone: [facility] 12-06-2022 10:35-0500 Respiratory rate 20 /min Kaylin Aragon APRN.CONCRETE PIPE MACHINE OPERATOR Work Phone: [facility] 12-06-2022 10:35-0500 SaO2% (BldA) [Mass fraction] 96 % Kaylin Aragon APRN.CONCRETE PIPE MACHINE OPERATOR Work Phone: [facility] 12-06-2022 10:35-0500 Systolic blood pressure 117 mm[Hg] Kaylin Aragon APRN.CONCRETE PIPE MACHINE OPERATOR Work Phone: [facility] 10-28-2022 11:35-0500 Body height 172.7 cm Pacc 2 Work Phone: [facility] 10-28-2022 11:35-0500 Body temperature 97.2 [degF] Pacc 2 Work Phone: [facility] 10-28-2022 11:35-0500 Body weight 60.33 kg Pacc 2 Work Phone: [facility] 10-28-2022 11:35-0500 Diastolic blood pressure 67 mm[Hg] Pacc 2 Work Phone: [facility] 10-28-2022 11:35-0500 Heart rate 66 /min Pacc 2 Work Phone: [facility] 10-28-2022 11:35-0500 Respiratory rate 14 /min Pacc 2 Work Phone: [facility] 10-28-2022 11:35-0500 SaO2% (BldA) [Mass fraction] 100 % Pacc 2 Work Phone: [facility] 10-28-2022 11:35-0500 Systolic blood pressure 125 mm[Hg] Pacc 2 Work Phone: [facility] 10-13-2022 15:40-0500 Diastolic blood pressure 71 mm[Hg] Ana Enriquez MD Work Phone: [facility] 10-13-2022 15:40-0500 Heart rate 57 /min Ana Enriquez MD Work Phone: [facility] 10-13-2022 15:40-0500 Respiratory rate 18 /min Ana Enriquez MD Work Phone: [facility] 10-13-2022 15:40-0500 SaO2% (BldA) [Mass fraction] 100 % Ana Enriquez MD Work Phone: [facility] 10-13-2022 15:40-0500 Systolic blood pressure 105 mm[Hg] Ana Enriquez MD Work Phone: [facility] 10-13-2022 15:10-0500 Body temperature 97.11 [degF] Ana Enriquez MD Work Phone: [facility] 10-04-2022 16:30-0500 Body height 172.7 cm Ana Enriquez MD Work Phone: [facility] 10-04-2022 16:30-0500 Body weight 60.33 kg Ana Enriquez MD Work Phone: [facility] 10-04-2022 16:30-0500 Diastolic blood pressure 66 mm[Hg] Ana Erniquez MD Work Phone: [facility] 10-04-2022 16:30-0500 Heart rate 64 /min Ana Enriquez MD Work Phone: [facility] 10-04-2022 16:30-0500 Systolic blood pressure 119 mm[Hg] Ana Enriquez MD Work Phone: [facility] 08-26-2022 10:40-0400 Body height 172.4 cm Temi Dean PA-C Work Phone: [facility] 08-26-2022 10:40-0400 Body temperature 97.2 [degF] Temi Dean PA-C Work Phone: [facility] 08-26-2022 10:40-0400 Body weight 60.42 kg Temi James PA-C Work Phone: [facility] 08-26-2022 10:40-0400 Diastolic blood pressure 74 mm[Hg] Temi James PA-C Work Phone: [facility] 08-26-2022 10:40-0400 Heart rate 73 /min Temi James PA-C Work Phone: [facility] 08-26-2022 10:40-0400 Respiratory rate 16 /min Temi James PA-C Work Phone: [facility] 08-26-2022 10:40-0400 SaO2% (BldA) [Mass fraction] 98 % Temi James PA-C Work Phone: [facility] 08-26-2022 10:40-0400 Systolic blood pressure 102 mm[Hg] Temi James PA-C Work Phone: [facility] 08-05-2022 10:03-0400 Body height 172.4 cm Chair Clay Work Phone: [facility] 08-05-2022 10:03-0400 Body weight 60.8 kg Chair Clay Work Phone: [facility] 08-05-2022 09:45-0400 Body height 172.4 cm Oscar Gonzalez MD Work Phone: [facility] 08-05-2022 09:45-0400 Body temperature 97.11 [degF] Oscar Gonzalez MD Work Phone: [facility] 08-05-2022 09:45-0400 Body weight 60.8 kg Oscar Gonzalez MD Work Phone: [facility] 08-05-2022 09:45-0400 Diastolic blood pressure 76 mm[Hg] Oscar Gonzalez MD Work Phone: [facility] 08-05-2022 09:45-0400 Heart rate 69 /min Oscar Gonzalez MD Work Phone: [facility] 08-05-2022 09:45-0400 Respiratory rate 16 /min Oscar Gonzalez MD Work Phone: [facility] 08-05-2022 09:45-0400 SaO2% (BldA) [Mass fraction] 100 % Oscar Gonzalez MD Work Phone: [facility] 08-05-2022 09:45-0400 Systolic blood pressure 115 mm[Hg] Oscar Gonzalez MD Work Phone: [facility] 08-05-2022 09:06-0400 Body temperature 97.11 [degF] Tylor Davalos MD Work Phone: [facility] 08-05-2022 09:06-0400 Body weight 60.78 kg Tylor Davalos MD Work Phone: [facility] 08-05-2022 09:06-0400 Diastolic blood pressure 76 mm[Hg] Tylor Davalos MD Work Phone: [facility] 08-05-2022 09:06-0400 Heart rate 69 /min Tylor Davalos MD Work Phone: [facility] 08-05-2022 09:06-0400 Respiratory rate 16 /min Tylor Davalos MD Work Phone: [facility] 08-05-2022 09:06-0400 SaO2% (BldA) [Mass fraction] 100 % Tylor Davalos MD Work Phone: [facility] 08-05-2022 09:06-0400 Systolic blood pressure 115 mm[Hg] Tylor Davalos MD Work Phone: [facility] 07-15-2022 09:27-0400 Body height 172.4 cm Temi Dean PA-C Work Phone: [facility] 07-15-2022 09:27-0400 Body temperature 97.9 [degF] Temi James PA-C Work Phone: [facility] 07-15-2022 09:27-0400 Body weight 61.42 kg Temi James PA-C Work Phone: [facility] 07-15-2022 09:27-0400 Diastolic blood pressure 71 mm[Hg] Temi James PA-C Work Phone: [facility] 07-15-2022 09:27-0400 Heart rate 72 /min Temi James PA-C Work Phone: [facility] 07-15-2022 09:27-0400 Respiratory rate 16 /min Temi James PA-C Work Phone: [facility] 07-15-2022 09:27-0400 SaO2% (BldA) [Mass fraction] 100 % Temi James PA-C Work Phone: [facility] 07-15-2022 09:27-0400 Systolic blood pressure 121 mm[Hg] Temi James PA-C Work Phone: [facility] 06-24-2022 14:38-0400 Diastolic blood pressure 75 mm[Hg] Chair [place] Work Phone: [facility] 06-24-2022 14:38-0400 Heart rate 69 /min Chair [place] Work Phone: [facility] 06-24-2022 14:38-0400 Respiratory rate 16 /min Chair [place] Work Phone: [facility] 06-24-2022 14:38-0400 SaO2% (BldA) [Mass fraction] 98 % Chair [place] Work Phone: [facility] 06-24-2022 14:38-0400 Systolic blood pressure 123 mm[Hg] Chair [place] Work Phone: [facility] 06-24-2022 09:39-0400 Body height 172.4 cm Oscar Gonzalez MD Work Phone: [facility] 06-24-2022 09:39-0400 Body temperature 97 [degF] Oscar Gonzalez MD Work Phone: [facility] 06-24-2022 09:39-0400 Body weight 61.33 kg Oscar Gonzalez MD Work Phone: [facility] 06-24-2022 09:39-0400 Diastolic blood pressure 72 mm[Hg] Oscar Gonzalez MD Work Phone: [facility] 06-24-2022 09:39-0400 Heart rate 61 /min Oscar Gonzalez MD Work Phone: [facility] 06-24-2022 09:39-0400 Respiratory rate 16 /min Oscar Gonzalez MD Work Phone: [facility] 06-24-2022 09:39-0400 SaO2% (BldA) [Mass fraction] 99 % Oscar Gonzalez MD Work Phone: [facility] 06-24-2022 09:39-0400 Systolic blood pressure 134 mm[Hg] Oscar Gonzalez MD Work Phone: [facility] 05-24-2022 15:13-0400 Body height 172.7 cm Oscar Gonzalez MD Work Phone: [facility] 05-24-2022 15:13-0400 Body temperature 98.01 [degF] Oscar Gonzalez MD Work Phone: [facility] 05-24-2022 15:13-0400 Body weight 64.32 kg Oscar Gonzalez MD Work Phone: [facility] 05-24-2022 15:13-0400 Diastolic blood pressure 71 mm[Hg] Oscar Gonzalez MD Work Phone: [facility] 05-24-2022 15:13-0400 Heart rate 57 /min Oscar Gonzalez MD Work Phone: [facility] 05-24-2022 15:13-0400 Respiratory rate 16 /min Oscar Gonzalez MD Work Phone: [facility] 05-24-2022 15:13-0400 SaO2% (BldA) [Mass fraction] 99 % Oscar Gonzalez MD Work Phone: [facility] 05-24-2022 15:13-0400 Systolic blood pressure 101 mm[Hg] Oscar Gonzalez MD Work Phone: [facility] 05-24-2022 11:37-0400 Body temperature 98.29 [degF] Ana Enriquez MD Work Phone: [facility] 05-24-2022 11:37-0400 Diastolic blood pressure 80 mm[Hg] Ana Enriquez MD Work Phone: [facility] 05-24-2022 11:37-0400 Heart rate 71 /min Ana Enriquez MD Work Phone: [facility] 05-24-2022 11:37-0400 Respiratory rate 16 /min Ana Enriquez MD Work Phone: [facility] 05-24-2022 11:37-0400 SaO2% (BldA) [Mass fraction] 98 % Ana Enriquez MD Work Phone: [facility] 05-24-2022 11:37-0400 Systolic blood pressure 108 mm[Hg] Ana Enriquez MD Work Phone: [facility] 04-12-2022 13:28-0400 Body height 172.7 cm Oscar Gonzalez MD Work Phone: [facility] 04-12-2022 13:28-0400 Body temperature 97.2 [degF] Oscar Gonzalez MD Work Phone: [facility] 04-12-2022 13:28-0400 Body weight 62.41 kg Oscar Gonzalez MD Work Phone: [facility] 04-12-2022 13:28-0400 Diastolic blood pressure 70 mm[Hg] Oscar Gonzalez MD Work Phone: [facility] 04-12-2022 13:28-0400 Heart rate 69 /min Oscar Gonzalez MD Work Phone: [facility] 04-12-2022 13:28-0400 Respiratory rate 16 /min Oscar Gonzalez MD Work Phone: [facility] 04-12-2022 13:28-0400 SaO2% (BldA) [Mass fraction] 97 % Oscar Gonzalez MD Work Phone: [facility] 04-12-2022 13:28-0400 Systolic blood pressure 131 mm[Hg] Oscar Gonzalez MD Work Phone: [facility] 04-06-2022 11:36-0400 Body temperature 97.39 [degF] Tylor Davalos MD Work Phone: [facility] 04-06-2022 11:36-0400 Body weight 62.14 kg Tylor Davalos MD Work Phone: [facility] 04-06-2022 11:36-0400 Diastolic blood pressure 73 mm[Hg] Tylor Davalos MD Work Phone: [facility] 04-06-2022 11:36-0400 Heart rate 76 /min Tylor Davalos MD Work Phone: [facility] 04-06-2022 11:36-0400 Respiratory rate 18 /min Tylor Davalos MD Work Phone: [facility] 04-06-2022 11:36-0400 SaO2% (BldA) [Mass fraction] 99 % Tylor Davalos MD Work Phone: [facility] 04-06-2022 11:36-0400 Systolic blood pressure 131 mm[Hg] Tylor Davalos MD Work Phone: [facility] 04-01-2022 11:02-0400 Body height 172.7 cm Temi James PA-C Work Phone: [facility] 04-01-2022 11:02-0400 Body temperature 97.11 [degF] Temi James PA-C Work Phone: [facility] 04-01-2022 11:02-0400 Body weight 62.14 kg Temi James PA-C Work Phone: [facility] 04-01-2022 11:02-0400 Diastolic blood pressure 77 mm[Hg] Temi James PA-C Work Phone: [facility] 04-01-2022 11:02-0400 Heart rate 70 /min Temi James PA-C Work Phone: [facility] 04-01-2022 11:02-0400 Respiratory rate 16 /min Temi James PA-C Work Phone: [facility] 04-01-2022 11:02-0400 SaO2% (BldA) [Mass fraction] 98 % Temi James PA-C Work Phone: [facility] 04-01-2022 11:02-0400 Systolic blood pressure 130 mm[Hg] Temi James PA-C Work Phone: [facility] 03-30-2022 11:24-0400 Body temperature 97.7 [degF] Tylor Davalos MD Work Phone: [facility] 03-30-2022 11:24-0400 Body weight 62.87 kg Tylor Davalos MD Work Phone: [facility] 03-30-2022 11:24-0400 Diastolic blood pressure 80 mm[Hg] Tylor Davalos MD Work Phone: [facility] 03-30-2022 11:24-0400 Heart rate 75 /min Tylor Davalos MD Work Phone: [facility] 03-30-2022 11:24-0400 Respiratory rate 16 /min Tylor Davalos MD Work Phone: [facility] 03-30-2022 11:24-0400 SaO2% (BldA) [Mass fraction] 99 % Tylor Davalos MD Work Phone: [facility] 03-30-2022 11:24-0400 Systolic blood pressure 123 mm[Hg] Tylor Davalos MD Work Phone: [facility] 03-23-2022 11:52-0400 Body temperature 97.11 [degF] Tylor Davalos MD Work Phone: [facility] 03-23-2022 11:52-0400 Body weight 62.14 kg Tylor Davalos MD Work Phone: [facility] 03-23-2022 11:52-0400 Diastolic blood pressure 82 mm[Hg] Tylor Davalos MD Work Phone: [facility] 03-23-2022 11:52-0400 Heart rate 80 /min Tylor Davalos MD Work Phone: [facility] 03-23-2022 11:52-0400 Respiratory rate 20 /min Tylor Davalos MD Work Phone: [facility] 03-23-2022 11:52-0400 SaO2% (BldA) [Mass fraction] 98 % Tylor Davalos MD Work Phone: [facility] 03-23-2022 11:52-0400 Systolic blood pressure 134 mm[Hg] Tylor Davalos MD Work Phone: [facility] 03-18-2022 15:04-0400 Body height 172.7 cm Bouchra Thompson BRIDGE ENGINEER.CONCRETE PIPE MACHINE OPERATOR Work Phone: [facility] 03-18-2022 15:04-0400 Body temperature 98.71 [degF] Bouchra Thompson BRIDGE ENGINEER.CONCRETE PIPE MACHINE OPERATOR Work Phone: [facility] 03-18-2022 15:04-0400 Body weight 61.24 kg Bouchra Thompson BRIDGE ENGINEER.CONCRETE PIPE MACHINE OPERATOR Work Phone: [facility] 03-18-2022 15:04-0400 Diastolic blood pressure 78 mm[Hg] Bouchra Thompson BRIDGE ENGINEER.CONCRETE PIPE MACHINE OPERATOR Work Phone: [facility] 03-18-2022 15:04-0400 Heart rate 78 /min Bouchralamont Thompson BRIDGE ENGINEER.CONCRETE PIPE MACHINE OPERATOR Work Phone: [facility] [facility] 03-18-2022 15:04-0400 SaO2% (BldA) [Mass fraction] 98 % Bouchralamont Thompson BRIDGE ENGINEER.CONCRETE PIPE MACHINE OPERATOR Work Phone: [facility] 03-18-2022 15:04-0400 Systolic blood pressure 123 mm[Hg] Bouchra Albertmartha BRIDGE ENGINEER.CONCRETE PIPE MACHINE OPERATOR Work Phone: [facility] 03-18-2022 12:44-0400 Body height 172.7 cm Oscar Gonzalez MD Work Phone: [facility] 03-18-2022 12:44-0400 Body temperature 97.59 [degF] Oscar Gonzalez MD Work Phone: [facility] 03-18-2022 12:44-0400 Body weight 61.24 kg Oscar Gonzalez MD Work Phone: [facility] 03-18-2022 12:44-0400 Diastolic blood pressure 80 mm[Hg] Oscar Gonzalez MD Work Phone: [facility] 03-18-2022 12:44-0400 Heart rate 80 /min Oscar Gonzalez MD Work Phone: [facility] 03-18-2022 12:44-0400 Respiratory rate 16 /min Oscar Gonzalez MD Work Phone: [facility] 03-18-2022 12:44-0400 SaO2% (BldA) [Mass fraction] 99 % Oscar Gonzalez MD Work Phone: [facility] 03-18-2022 12:44-0400 Systolic blood pressure 147 mm[Hg] Oscar Gonzalez MD Work Phone: [facility] 03-16-2022 11:44-0400 Body temperature 97.59 [degF] Tylor Davalos MD Work Phone: [facility] 03-16-2022 11:44-0400 Body weight 59.88 kg Tylor Davalos MD Work Phone: [facility] 03-16-2022 11:44-0400 Diastolic blood pressure 84 mm[Hg] Tylor Davalos MD Work Phone: [facility] 03-16-2022 11:44-0400 Heart rate 85 /min Tylor Davalos MD Work Phone: [facility] 03-16-2022 11:44-0400 Respiratory rate 20 /min Tylor Davalos MD Work Phone: [facility] 03-16-2022 11:44-0400 SaO2% (BldA) [Mass fraction] 99 % Tylor Davalos MD Work Phone: [facility] 03-16-2022 11:44-0400 Systolic blood pressure 141 mm[Hg] Tylor Davalos MD Work Phone: [facility] 03-01-2022 12:48-0400 Body height 172.7 cm Oscar Gonzalez MD Work Phone: [facility] 03-01-2022 12:48-0400 Body temperature 97.5 [degF] Oscar Gonzalez MD Work Phone: [facility] 03-01-2022 12:48-0400 Body weight 61.51 kg Oscar Gonzalez MD Work Phone: [facility] 03-01-2022 12:48-0400 Diastolic blood pressure 92 mm[Hg] Oscar Gonzalez MD Work Phone: [facility] 03-01-2022 12:48-0400 Heart rate 78 /min Oscar Gonzalez MD Work Phone: [facility] 03-01-2022 12:48-0400 Respiratory rate 16 /min Oscar Gonzalez MD Work Phone: [facility] 03-01-2022 12:48-0400 SaO2% (BldA) [Mass fraction] 98 % Oscar Gonzalez MD Work Phone: [facility] 03-01-2022 12:48-0400 Systolic blood pressure 135 mm[Hg] Oscar Gonzalez MD Work Phone: [facility] 02-16-2022 08:16-0400 Body height 172.7 cm Pacc 1 Other Phone: [facility] 02-16-2022 08:16-0400 Body temperature 96.69 [degF] Pacc 1 Other Phone: [facility] 02-16-2022 08:16-0400 Body weight 58.51 kg Pacc 1 Other Phone: [facility] 02-16-2022 08:16-0400 Diastolic blood pressure 91 mm[Hg] Pacc 1 Other Phone: [facility] 02-16-2022 08:16-0400 Heart rate 80 /min Pacc 1 Other Phone: [facility] 02-16-2022 08:16-0400 Respiratory rate 18 /min Pacc 1 Other Phone: [facility] 02-16-2022 08:16-0400 SaO2% (BldA) [Mass fraction] 98 % Pacc 1 Other Phone: [facility] 02-16-2022 08:16-0400 Systolic blood pressure 130 mm[Hg] Pacc 1 Other Phone: [facility] 02-11-2022 13:12-0400 Body temperature 96.91 [degF] Tylor Davalos MD Work Phone: [facility] 02-11-2022 13:12-0400 Body weight 62.6 kg Tylor Davalos MD Work Phone: [facility] 02-11-2022 13:12-0400 Diastolic blood pressure 80 mm[Hg] Tylor Davalos MD Work Phone: [facility] 02-11-2022 13:12-0400 Heart rate 65 /min Tylor Davalos MD Work Phone: [facility] 02-11-2022 13:12-0400 Respiratory rate 16 /min Tylor Davalos MD Work Phone: [facility] 02-11-2022 13:12-0400 SaO2% (BldA) [Mass fraction] 100 % Tylor Davalos MD Work Phone: [facility] 02-11-2022 13:12-0400 Systolic blood pressure 130 mm[Hg] Tylor Davalos MD Work Phone: [facility] 02-04-2022 09:56-0400 Body height 171.5 cm Oscar Gonzalez MD Work Phone: [facility] 02-04-2022 09:56-0400 Body temperature 97 [degF] Oscar Gonzalez MD Work Phone: [facility] 02-04-2022 09:56-0400 Body weight 61.33 kg Oscar Gonzalez MD Work Phone: [facility] 02-04-2022 09:56-0400 Diastolic blood pressure 75 mm[Hg] Oscar Gonzalez MD Work Phone: [facility] 02-04-2022 09:56-0400 Heart rate 68 /min Oscar Gonzalez MD Work Phone: [facility] 02-04-2022 09:56-0400 Respiratory rate 16 /min Oscar Gonzalez MD Work Phone: [facility] 02-04-2022 09:56-0400 SaO2% (BldA) [Mass fraction] 99 % Oscar Gonzalez MD Work Phone: [facility] 02-04-2022 09:56-0400 Systolic blood pressure 123 mm[Hg] Oscar Gonzalez MD Work Phone: [facility] Encounters Encounter Date Encounter Type Care Provider Facility Start: 03-04-2024 End: 03-04-2024 ambulatory ABBY GARSIA Not Available Start: 01-22-2024 End: 01-22-2024 ambulatory SHAIKH IKA Not Available Start: 10-12-2023 End: 10-12-2023 ambulatory SHAIKH JARETHD Not Available Start: 06-02-2023 Telephone encounter Ana stover MD Work Phone: Colorectal Surgery Comment on above: Patient Question Start: 04-27-2023 End: 04-27-2023 ambulatory BUCHANAN HIMANSHUWIJoby Facility:[facility] Start: 03-02-2023 Telephone encounter Mary Solorio MD Work Phone: [facility] Comment on above: Research Follow Up Start: 02-28-2023 Telephone encounter Karime ALONZO Comment on above: Follow Up (All clear ) Research Follow Up Start: 02-24-2023 Telephone encounter Oscar chávez MD Work Phone: Hematology/Oncology Comment on above: Patient Question Start: 02-20-2023 End: 02-22-2023 Evaluation and management of inpatient ANA ENRIQUEZ Facility:[facility] Start: 02-17-2023 Telephone encounter Ana stover MD Work Phone: General Surgery Comment on above: Patient Question Start: 02-16-2023 Refill Oscar Gonzalez MD Work Phone: Hematology/Oncology Comment on above: Refill Request Start: 02-16-2023 Telephone encounter Ana stover MD Work Phone: Colorectal Surgery Comment on above: FMLA Paperwork Start: 02-09-2023 End: 02-09-2023 ambulatory BUCHANAN JARETHD Facility:[facility] Start: 02-09-2023 End: 02-09-2023 ambulatory BUCHANAN FAAnnabelleWAD Facility:[facility] Start: 02-09-2023 Encounter for other preprocedural examination TYLOR DAVALOS [facility] Start: 02-09-2023 End: 02-09-2023 [place]mission to [place] [address] Work Phone: [place] Start: 02-09-2023 End: 02-09-2023 Drug abuse prevention management [facility] Work Phone: Pre Anesthesia Comment on above: Preop examination (P rimary Dx); History of endocarditis; Severe tricuspid regurgitation; Former smoker; History of intravenous drug abuse (HCC); Hypothyroidism unspecified; Acute deep vein thrombosis (DVT) of proximal vein of lower extremity, unspecified laterality (HCC) Start: 02-09-2023 End: 02-09-2023 Preprocedural examination done [facility] Work Phone: Pre Anesthesia Start: 01-31-2023 [facility] Facility: [facility] Start: 01-31-2023 End: 01-31-2023 Subsequent hospital visit by physician Gi/Gu 1 [facility] Work Phone: Radiology Comment on above: Encounter for follow -up surveillance of rectal cancer [Z08, Z85.048] Start: 01-17-2023 End: 01-17-2023 [facility] Facility:[facility] Start: 01-17-2023 End: 01-17-2023 Patient encounter procedure Ana Enriquez MD Work Phone: Colorectal Surgery Comment on above: Rectal cancer (HCC) (Primary Dx); Encounter for follow-up surveillance of rectal cancer; Acute post-operative pain; Attention to ileostomy (HCC) Start: 01-02-2023 Telephone encounter Aan stover MD Work Phone: Colorectal Surgery Comment on above: Patient Question Start: 12-21-2022 Telephone encounter Meghan Pichardo RN Work Phone: Hematology/Oncology Comment on above: Care Coordination (I rritation around stoma) Start: 12-20-2022 Telephone encounter Ana stover MD Work Phone: Colorectal Surgery Comment on above: Post Op Start: 12-06-2022 End: 12-06-2022 ambulatory [facility] Facility:[facility] Start: 12-06-2022 End: 12-06-2022 Patient encounter procedure Kaylin Homero MAZARIEGOSCONCRETE PIPE MACHINE OPERATOR Work Phone: Colorectal Surgery Comment on above: Acute post-operative pain (Primary Dx); High output ileostomy (HCC) Start: 12-05-2022 Telephone encounter Ana stover MD Work Phone: Colorectal Surgery Comment on above: Post Op Start: 12-04-2022 End: 12-04-2022 Emergency department patient visit [facility] Facility:[facility] Start: 12-02-2022 Telephone encounter Oscar chávez MD Work Phone: Hematology/Oncology Comment on above: Disability [place] Start: 11-21-2022 Telephone encounter Meghan Pichardo RN Work Phone: Hematology/Oncology Comment on above: Care Coordination (q uestion) Start: 11-17-2022 Telephone encounter Ana stover MD Work Phone: Colorectal Surgery Comment on above: Dietitian Teaching - O ther (Tumor board) Start: 11-16-2022 Telephone encounter Ana stover MD Work Phone: Colorectal Surgery Comment on above: Patient Question Start: 11-07-2022 End: 11-12-2022 Evaluation and management of inpatient [facility] Facility:[facility] Start: 10-28-2022 End: 10-29-2022 ambulatory [facility] Facility:[facility] Start: 10-28-2022 Encounter for other preprocedural examination TYLOR DAVALOS [facility] Start: 10-28-2022 End: 10-28-2022 Admission to establishment [facility]acc [place] [facility] Work Phone: [facility] Start: 10-28-2022 End: 10-28-2022 Drug abuse prevention management Pacc [place] [facility] Work Phone: Pre Anesthesia Comment on above: Pre-op evaluation (P rimary Dx); History of intravenous drug abuse (HCC); Hypothyroidism unspecified; Smoker; Severe tricuspid regurgitation; History of endocarditis; Acute deep vein thrombosis (DVT) of proximal vein of lower extremity, unspecified laterality (HCC) Start: 10-28-2022 End: 10-28-2022 Preprocedural examination done Pacc [place] [facility] Work Phone: Pre Anesthesia Start: 10-17-2022 End: 10-17-2022 ambulatory [facility] Facility:[facility] Start: 10-13-2022 ambulatory [facility] Facility: [facility] Start: 10-13-2022 End: 10-13-2022 Subsequent hospital visit by physician Ana Enriquez MD Work Phone: Procedures Comment on above: Follow-up examinatio n after colorectal surgery [Z09] Start: 10-11-2022 Telephone encounter Ana stover MD Work Phone: Colorectal Surgery Comment on above: Anesthesia Consult ( Patient not scheduled PACC) Start: 10-05-2022 Telephone encounter Ana stover MD Work Phone: Colorectal Surgery Comment on above: Dietitian Teaching - O ther Start: 10-04-2022 End: 10-04-2022 Orders Only Ana Enriquez MD Work Phone: Colorectal Surgery Comment on above: Rectal cancer (HCC) (Primary Dx) Encounter for follow -up surveillance of rectal cancer (Primary Dx); Malignant neoplasm of rectum (HCC) Start: 09-27-2022 Telephone encounter Meghan Pichardo RN Work Phone: Hematology/Oncology Comment on above: Care Coordination (M RI results) Start: 09-26-2022 [facility] Facility: [facility] Start: 09-26-2022 End: 09-26-2022 Subsequent hospital visit by physician Ct [facility] Radiology Comment on above: Lung nodules [R91.8] Start: 09-23-2022 Telephone encounter Sheron helton ([place]) Radiology Comment on above: APPOINTMENT INSTRUCT IONS [...] Telephone encounter Mary Solorio MD Work Phone: [place] Comment on above: Research Follow Up Start: 08-26-2022 End: 08-26-2022 Patient encounter procedure Temi Dean PA-C Work Phone: [facility] Start: 08-25-2022 Telephone encounter Mary Solorio MD Work Phone: [place] Comment on above: Research Follow Up Start: 08-08-2022 Telephone encounter Meghan Pichardo RN Work Phone: Hematology/Oncology Comment on above: Care Coordination (C linical update) Start: 08-05-2022 Telephone encounter Oscar chávez MD Work Phone: Cancer [facility] Comment on above: Patient Question Start: 08-05-2022 End: 08-05-2022 ambulatory SHAIKH KIA Facility:[facility] Start: 08-05-2022 End: 08-05-2022 ambulatory Oscar [...] update/) Start: 06-24-2022 End: 06-24-2022 ambulatory OSCAR GONZALEZ Facility:[facility] Start: 06-24-2022 End: 06-27-2022 ambulatory Oscar Gonzalez MD Work Phone: Hematology/Oncology Comment on above: Rectal cancer (HCC) (Primary Dx) Start: 06-24-2022 End: 06-24-2022 Patient encounter procedure Oscar Gonzalez MD Work Phone: [place] Start: 06-23-2022 Refill Oscar Gonzalez MD Work Phone: Hematology/Oncology Comment on above: Refill Request Start: 06-07-2022 Telephone encounter Meghan Pichardo RN Work Phone: Hematology/Oncology Comment on above: Care Coordination (C 1D1 treatment follow up call/) Start: 06-03-2022 Refill Bouchra shin [facility] Work Phone: Hematology/Oncology Comment on above: Refill Request Start: 06-02-2022 Telephone encounter Bouchra Aranda [facility] Work Phone: Hematology/Oncology Comment on above: Medication Update (C APOX-capecitabine) Start: 06-02-2022 End: 06-02-2022 Nursing evaluation of patient and report Meghan Pichardo RN Work Phone: Hematology/Oncology Comment on above: Rectosigmoid cancer (HCC) (Primary Dx) Start: 05-30-2022 Telephone encounter Mary Solorio MD Work Phone: [facility] [place] Comment on above: Research Follow Up Start: 05-25-2022 Telephone encounter Mary Solorio MD Work Phone: [facility] [place] Comment on above: Research Follow Up Start: 05-24-2022 End: 05-24-2022 Refill Bouchra Pitts [facility] Work Phone: Hematology/Oncology Comment on above: Refill Request Rectal cancer (HCC) (Primary Dx); Follow-up examination after colorectal surgery; Attention to colostomy (HCC) Rectosigmoid cancer (HCC) (Primary Dx) Start: 05-13-2022 Patient encounter procedure Ccf Provider [facility] Department Start: 05-12-2022 ambulatory OSCAR GONZALEZ Facility :[facility] Start: 05-12-2022 Telephone encounter Oscar chávez [...] 03-18-2022 End: 03-18-2022 Patient encounter procedure Bouchra Thompson APRN.CNP Work Phone: Colorectal Surgery Comment on [...] End: 03-01-2022 Patient encounter procedure Ccf Provider [facility] Department Start: 02-28-2022 Patient encounter procedure Tylor Davalos MD Work Phone: [facility] Start: 02-28-2022 Radiation Oncology Note Tylor levin MD Work Phone: Radiation Oncology Comment on above: Simulation Note Treatment Planning Start: 02-28-2022 Telephone encounter Elodia Nixon RN NOC Comment on above: Follow Up (Gyant int eraction - F/U - attempt made. No answer. ) Start: 02-24-2022 Refill Betty Glass [facility] Work Phone: Hematology/Oncology Comment on above: Refill Request Start: 02-18-2022 Telephone encounter Jade Pascual RN Pre Anesthesia Comment on above: Pre-Op Update (Preop labs (ConABO) ) Medication Follow-up (capecitabine prior auth submitted) Refill Request Start: 02-17-2022 Telephone encounter Meghan Pichardo RN Work Phone: Hematology/Oncology Comment on above: Care Coordination (f ollow up, treatment plan) Start: 02-16-2022 End: 02-16-2022 ambulatory [facility] Facility[facility] Start: 02-16-2022 Encounter for other preprocedural examination ANA [facility] Start: 02-16-2022 End: 02-16-2022 Admission to establishment Pacc [address] Other Phone: [facility] Start: 02-16-2022 End: 02-16-2022 Drug abuse prevention [...] Work Phone: Colorectal Surgery Comment on above: Dietitian Teaching - O ther Start: 02-07-2022 Telephone encounter Oscar chávez MD Work Phone: Hematology/Oncology Comment on above: Patient Update Start: 02-04-2022 Telephone encounter Ana stover MD Work Phone: Colorectal Surgery Comment on above: Dietitian Teaching - O ther FMLA Paperwork Disability Jayant Start: 02-04-2022 End: 02-04-2022 ambulatory Oscar Gonzalez MD Work Phone: Hematology/Oncology Comment on above: Rectosigmoid cancer (HCC) (Primary Dx) Start: 02-04-2022 End: 02-04-2022 Patient encounter procedure Oscar Gonzalez MD Work Phone: [facility] Start: 02-03-2022 End: 02-03-2022 Subsequent hospital visit by physician Leroy Green (I-Stat/1.5t) Work Phone: Radiology Comment on above: Rectal mass [K62.89] Start: 01-18-2022 Telephone encounter Gissell Alvarez RN Hematology/Oncology Comment on above: Results Start: 11-29-2021 End: 11-30-2021 ambulatory SHAIKH Trey ADAM Facility:[facility] Start: 09-16-2021 End: 09-16-2021 ambulatory NONE LISTED REQUEST Facility:[facility] Start: 08-27-2021 End: 08-27-2021 ambulatory NONE LISTED REQUEST Facility: Procedures Date Procedure Procedure Detail Performing Clinician Start: 04-27-2023 Lipid 1996 panel - S sp or Plasma Ana Enriquez MD Work Phone: Start: 02-09-2023 Antibody screen TYLOR NGUYEN Comment on above: Order Comment: Speci men Type: BLOOD SPECIMENOrdering Facility: [facility] Address: [address] [place] [address] Performed By: #### T [id number], %ALESIA ####CC MAIN BLOOD BANKCLIA [id number] [address]#### [id number] ####CUBA BLOOD BANKCLIA [id number] [address] Start: 02-09-2023 Ecg routine ecg w/le ast 12 lds i&r only [facility] Provider Start: 01-31-2023 Radiologic exam colo n single contrast study Ana Enriquez MD Work Phone: Start: 11-07-2022 Antibody screen SHAIKH KIA Comment on above: Order Comment: Speci men Type: BLOOD SPECIMENOrdering Facility: [facility] Address: [address] [address] Performed By: #### T SCR, [id number] ####CUBA BLOOD BANKCLIA [id number] [place] [id number] [facility] Start: 10-28-2022 Antibody screen Pacc 2 Work Phone: Start: 10-28-2022 Antibody screen TYLOR NGUYEN Comment on above: Order Comment: Speci men Type: BLOOD SPECIMENOrdering Facility: [facility] Address: [address] [place] [address] Performed By: #### % ALESIA, [id number], [id number] ####CC MAIN BLOOD BANKCLIA [id number] [address] Start: 10-13-2022 Sigmoidoscopy flx dx w/collj [...] - S sp or Plasma Lipid Screening [facility] Start: 04-27-2028 LIPID SCREEN LIPID SCREEN [facility] Start: 10-13-2027 COLORECTAL CANCER SCREENING COLORECTAL CANCER SCREENING [facility] Start: 10-13-2027 SIGMOIDOSCOPY SIGMOIDOSCOPY [facility] Start: 02-21-2026 DIABETES SCREEN DIABETES SCREEN [facility] Start: 02-21-2026 Diabetes Screening Diabetes Screenin g [facility] Start: 02-09-2026 DIABETES SCREEN DIABETES SCREEN [facility] Start: 11-09-2025 DIABETES SCREEN DIABETES SCREEN [facility] Start: 10-28-2025 DIABETES SCREEN DIABETES SCREEN [facility] Start: 08-26-2025 DIABETES SCREEN DIABETES SCREEN [facility] Start: 08-05-2025 DIABETES SCREEN DIABETES SCREEN [facility] Start: 07-15-2025 DIABETES SCREEN DIABETES SCREEN [facility] Start: 06-24-2025 DIABETES SCREEN DIABETES SCREEN [facility] Start: 05-24-2025 DIABETES SCREEN DIABETES SCREEN [facility] Start: 04-12-2025 DIABETES SCREEN DIABETES SCREEN [facility] Start: 04-01-2025 DIABETES SCREEN DIABETES SCREEN [facility] Start: 03-18-2025 DIABETES SCREEN DIABETES SCREEN [facility] Start: 02-24-2025 DIABETES SCREEN DIABETES SCREEN [facility] Start: 02-22-2025 DIABETES SCREEN DIABETES SCREEN [facility] Start: 02-04-2025 DIABETES SCREEN DIABETES SCREEN [facility] Start: 2023 Shingrix Vaccine (1 of 2) Malin grix Vaccine (1 of 2) [facility] Start: 06-30-2023 Influenza vaccination C [facility] Start: 01-30-2023 End: 04-01-2023 CBC W Auto Differential panel - Blood CBC + DIFF Lab Routine Encounter for follow-up surveillance of rectal cancer Acute post-operative pain Expected: 01/30/2023, Expires: 04/01/2023 [facility] Work Phone: Comment on above: Expected: 01/30/2023 , Expires: 04/01/2023 Start: 01-30-2023 End: 04-01-2023 Comprehensive metabolic 2000 panel - Serum or Plasma COMP METABOLIC PANEL Lab Routine Encounter for follow-up surveillance of rectal cancer Acute post-operative pain Expected: 01/30/2023, Expires: 04/01/2023 [facility] Work Phone: Comment on above: Expected: 01/30/2023 , Expires: 04/01/2023 Start: 01-30-2023 End: 04-01-2023 TYPE AND SCREEN,30 DAY TYPE AND SCREEN,30 DAY Blood Bank Routine Encounter for follow-up surveillance of rectal cancer Acute post-operative pain Expected: 01/30/2023, Expires: 04/01/2023 [facility] Work Phone: Comment on above: Expected: 01/30/2023 , Expires: 04/01/2023 Start: 10-30-2022 DEPRESSION ASSESSMENT DEPRESSION ASS ESSMENT [facility] Start: 09-23-2022 End: 11-23-2022 CBC W Auto Differential panel - Blood CBC + DIFF Lab Routine Malignant neoplasm of rectum (HCC) Lung nodules Expected: 09/23/2022 (Approximate), Expires: 11/23/2022 [facility] Work Phone: Comment on above: Expected: 09/23/2022 (Approximate), Expires: 11/23/2022 Start: 09-23-2022 End: 11-23-2022 Comprehensive metabolic 2000 panel - Serum or Plasma COMP METABOLIC PANEL Lab Routine Malignant neoplasm of rectum (HCC) Lung nodules Expected: 09/23/2022 (Approximate), Expires: 11/23/2022 [facility] Work Phone: Comment on above: Expected: 09/23/2022 (Approximate), Expires: 11/23/2022 Start: 08-26-2022 End: 10-26-2022 CBC W Auto Differential panel - Blood CBC + DIFF Lab Routine Rectal cancer (HCC) Expected: 08/26/2022 (Approximate), Expires: 10/26/2022 [facility] Work Phone: Comment on above: Expected: 08/26/2022 (Approximate), Expires: 10/26/2022 Start: 08-26-2022 End: 10-26-2022 Comprehensive metabolic 2000 panel - Serum or Plasma COMP METABOLIC PANEL Lab Routine Rectal cancer (HCC) Expected: 08/26/2022 (Approximate), Expires: 10/26/2022 [facility] Work Phone: Comment on above: Expected: 08/26/2022 (Approximate), Expires: 10/26/2022 Start: 07-15-2022 End: 09-14-2022 CBC W Auto Differential panel - Blood [facility] Work Phone: Comment on above: Expected: 07/15/2022 (Approximate), Expires: 09/14/2022 Expected: 07/15/2022 , Expires: 09/14/2022 Start: 07-15-2022 End: 09-14-2022 Comprehensive metabolic 2000 panel - Serum or Plasma [facility] Work Phone: Comment on above: Expected: 07/15/2022 (Approximate), Expires: 09/14/2022 Expected: 07/15/2022 , Expires: 09/14/2022 Start: 06-30-2022 Influenza vaccination C [facility] Start: 05-24-2022 End: 07-24-2022 Carcinoembryonic Ag [Mass/volume] in Serum or Plasma CEA BLD Lab Routine Rectosigmoid cancer (HCC) Expected: 05/24/2022 (Approximate), Expires: 07/24/2022 [facility] Work Phone: Comment on above: Expected: 05/24/2022 (Approximate), Expires: 07/24/2022 Start: 05-24-2022 End: 07-24-2022 CBC W Auto Differential panel - Blood CBC + DIFF Lab Routine Rectosigmoid cancer (HCC) Expected: 05/24/2022 (Approximate), Expires: 07/24/2022 [facility] Work Phone: Comment on above: Expected: 05/24/2022 (Approximate), Expires: 07/24/2022 Start: 05-24-2022 End: 07-24-2022 Comprehensive metabolic 2000 panel - Serum or Plasma COMP METABOLIC PANEL Lab Routine Rectosigmoid cancer (HCC) Expected: 05/24/2022 (Approximate), Expires: 07/24/2022 [facility] Work Phone: Comment on above: Expected: 05/24/2022 (Approximate), Expires: 07/24/2022 Start: 05-17-2022 End: 05-12-2023 Mri pelvis w/o & w/contrast material MRI RECTUM WO/W IVCON Radiology Routine Malignant neoplasm of rectum (HCC) Expected: 05/17/2022, Expires: 05/12/2023 [facility] Work Phone: Comment on above: Expected: 05/17/2022 , Expires: 05/12/2023 Start: 04-01-2022 End: 06-01-2022 CBC W Auto Differential panel - Blood [facility] Work Phone: Comment on above: Expected: 04/01/2022 (Approximate), Expires: 06/01/2022 Expected: 04/01/2022 , Expires: 06/01/2022 Start: 04-01-2022 End: 06-01-2022 Comprehensive metabolic 2000 panel - Serum or Plasma [facility] Work Phone: Comment on above: Expected: 04/01/2022 (Approximate), Expires: 06/01/2022 Expected: 04/01/2022 , Expires: 06/01/2022 Start: 03-18-2022 End: 05-18-2022 CBC W Auto Differential panel - Blood CBC + DIFF Lab Routine Rectosigmoid cancer (HCC) Expected: 03/18/2022, Expires: 05/18/2022 [facility] Work Phone: Comment on above: Expected: 03/18/2022 , Expires: 05/18/2022 Start: 03-18-2022 End: 05-18-2022 Comprehensive metabolic 2000 panel - Serum or Plasma COMP METABOLIC PANEL Lab Routine Rectosigmoid cancer (HCC) Expected: 03/18/2022, Expires: 05/18/2022 [facility] Work Phone: Comment on above: Expected: 03/18/2022 , Expires: 05/18/2022 Start: 02-16-2022 End: 04-18-2022 CONFIRM BLOOD TYPE CONFIRM BLOOD TYPE Blood Bank Routine Pre-op exam Rectal mass Expected: 02/16/2022, Expires: 04/18/2022 [facility] Work Phone: Comment on above: Expected: 02/16/2022 , Expires: 04/18/2022 Start: 10-30-2021 DEPRESSION ASSESSMENT DEPRESSION ASS ESSMENT [facility] Start: 06-30-2021 Influenza vaccination INFLUENZA (#1) [facility] Start: 2018 COLOGUARD (FIT-DNA) COLOGUARD (FIT-D NA) [facility] Start: 2018 Colonoscopy COLONOSCOPY [facility] Start: 2018 COLORECTAL CANCER SCREENING COLORECTAL CANCER SCREENING [facility] Start: [address] COLONOGRAPHY [facility] Start: 2018 DIABETES SCREEN DIABETES SCREEN [facility] Start: 2018 FECAL OCCULT BLOOD FECAL OCCULT BLOO D [facility] Start: 2018 SIGMOIDOSCOPY SIGMOIDOSCOPY [facility] Start: 2008 LIPID SCREEN LIPID SCREEN [facility] Start: 1992 SHINGRIX VACCINE (1 of 2) MALIN GRIX VACCINE (1 of 2) [facility] Start: 1992 Urine microalbumin profile [facility] Start: 1991 ANNUAL PCP TEAM TRAFFIC LIEUTENANT JETT DISEASE VISIT ANNUAL PCP TEAM CHRONIC DISEASE VISIT [facility] Start: 1991 HEPATITIS C SCREENING HEPATITIS C SC REENING [facility] Start: 1991 HIV SCREENING HIV SCREENING [facility] Start: 1985 Adult depression scr eening assessment DEPRESSION SCREENING [facility] Start: 1985 COVID-19 VACCINE (1) COVID-19 VACCIN E (1) [facility] Start: 1979 PNEUMOCOCCAL (1 - PCV) PNEUMOCOCCAL (1 - PCV) [facility] Start: 1978 COVID-19 VACCINE (#1) COVID-19 VACCI NE (#1) [facility] Start: 1978 COVID-19 VACCINE (1) COVID-19 VACCIN E (1) [facility] Start: 01-10-1974 COVID-19 VACCINE (#1) COVID-19 VACCI NE (#1) [facility] Start: 1973 HEPATITIS B (1 of 3 - 3-dose series) HEPATITIS B (1 of 3 - 3-dose series) [facility] Start: 1973 Hepatitis B Vaccine (1 of 3 - 3-dose series) Hepatitis B Vaccine (1 of 3 - 3-dose series) [facility] End: 11-03-2023 Ct abdomen & pelvis w/contrast material CT ABD/PEL W IVCON Radiology Routine Malignant neoplasm of rectum (HCC) 1 Occurrences starting 10/04/2022 until 11/03/2023 [facility] Work Phone: Comment on above: 1 Occurrences starti ng 10/04/2022 until 11/03/2023 End: 09-25-2023 CT CHEST W IVCON CT CHEST W IVCON Radiology Routine Lung nodules 1 Occurrences starting 08/26/2022 until 09/25/2023 [facility] Work Phone: Comment on above: 1 Occurrences starti ng 08/26/2022 until 09/25/2023 ECG COMPLETE ECG COMPLETE ECG 02/09/2023 1:57 PM EDT [facility] End: 09-25-2023 Mri pelvis w/o & w/contrast material MRI RECTUM WO/W IVCON Radiology Routine Malignant neoplasm of rectum (HCC) 1 Occurrences starting 08/26/2022 until 09/25/2023 [facility] Work Phone: Comment on above: 1 Occurrences starti ng 08/26/2022 until 09/25/2023 End: 02-16-2024 Radiologic exam colon single contrast study XR COLON SINGLE CONTRAST Radiology Routine Encounter for follow-up surveillance of rectal cancer Acute post-operative pain 1 Occurrences starting 01/17/2023 until 02/16/2024 [facility] Work Phone: Comment on above: 1 Occurrences starti ng 01/17/2023 until 02/16/2024 End: 05-24-2023 SIGMOIDOSCOPY SIGMOIDOSCOPY Endoscopy Routine Follow-up examination after colorectal surgery Rectal cancer (HCC) 1 Occurrences starting 05/25/2022 until 05/24/2023 [facility] Work Phone: Comment on above: 1 Occurrences starti ng 05/25/2022 until 05/24/2023 [facility] c [facility] c [facility] Immunizations Immunization Date Immunization Notes Care Provider Fa cility 12-01-2018 influenza, injectabl e, quadrivalent, contains preservative Ana Enriquez MD Work Phone: [facility] 12-01-2018 influenza virus vacc ine, unspecified formulation Ana Enriquez MD Work Phone: [facility] Payers Date Payer Category Payer Unknown [id number] 2021 Unknown IRVIN BLUE ACCE SS PPO [id number] 2021-Present [phone] [address] [place] [address] PPO [id number] 2021 Unknown ANTHEM BLUE ACCE SS PPO [id number] 2021-Present [phone] [address] [place] [address] PPO [id number] 2019 Medicaid MEDICAID MCP O[place] GENERIC MEDICAID MCP O[place] GENERIC [id number] 2019-Present [address] [place] [address] Medicaid [id number] 2019 Unknown [id number] 1973 Unknown [id number] 1973 Unknown [id number] 1973 Unknown [id number] 1973 Unknown [id number] 1973 Unknown [id number] 1973 Unknown [id number] 1973 Unknown [id number] 1959 Self-pay [id number] 1959 Unknown [id number] Social History Date Type Detail Facility Start: 12-29-2021 End: 08-05-2022 Tobacco smoking status NHIS Smokes tobacco daily [facility] Start: 12-29-2021 End: 08-05-2022 Tobacco use and exposure Smokeless tobacco non-user [facility] Start: 01-18-2022 End: 10-05-2022 Alcohol intake Current drinker of alcohol (finding) [facility] Start: 01-17-2022 History SDOH Alcohol Comment 2 drinks/week; heavy in psat [facility] Start: 1975 Sex Assigned At Not on file [facility] Start: 01-10-2022 End: 09-26-2022 Exposure to SARS-CoV-2 (event) Not sure [facility] Start: 12-29-2021 End: 03-17-2022 Cigarettes smoked current (pack per day) - Reported 0.5 [facility] Start: 02-16-2022 History SDOH Alcohol Comment 2 drinks/week; heavy in past [facility] End: 10-30-2022 History of tobacco use Cigarette Smoker [facility] Work Phone: Start: 10-28-2022 Tobacco Comment Less than half a pac k [facility] Start: 01-17-2023 Tobacco smoking stat us NHIS Ex-smoker [facility] End: 10-30-2022 History of tobacco use Current smoker [facility] Start: 01-17-2023 End: 02-09-2023 Alcohol intake Ex-drinker (finding) [facility] Start: 02-21-2023 History SDOH Financial 5 [facility] Start: 02-21-2023 History SDOH Food Worry 1 [facility] Start: 02-21-2023 History SDOH Transpo rt Med 2 [facility] Start: 03-17-2022 End: 02-09-2023 Tobacco use panel [facility] How hard is it for y ou to pay for the very basics like food, housing, medical care, and heating Not hard at all [facility] (I/We) worried wheth er (my/our) food would run out before (I/we) got money to buy more. Never true [facility] In the past 12 month s, was there a time when you were not able to pay the mortgage or rent on time? No [facility] Clinical Notes 01-18-2022 to 06-02-2023 Telephone [...] reversal with Dr. Enriquez on 02/20/23. Contact# [phone] documented in this encounter [facility] 03-02-2023 Miscellaneous Notes Summary: Research Follow Up GUARDIAN IRB# [id number] IRB # [id number] Tight perioperative blood pressure management to reduce serious cardiovascular, renal, and cognitive complications: The GUARDIAN trial PI: Mary Solorio MD, LUCIA, CHLOÉ. Outcomes Research Department. [facility]. [facility]. This is a research study note. Patient assessments recorded here should not guide either clinical care or clinical decision-making. I called the patient, Hoang White, today regarding follow-up for the study IRB 21-175 Tight Perioperative Blood pressure Management to Reduce Serious Cardiovascular, renal, and Cognitive Complications (GUARDIAN) Trial. The patient refused to answer any questions. Catalina Muhammad Research Review Appraiser Outcomes Research [facility] documented in this encounter [facility] 02-28-2023 Miscellaneous Notes Summary: Research Follow Up GUARDIAN IRB# [id number] IRB # 21-175 Tight perioperative blood pressure management to reduce serious cardiovascular, renal, and cognitive complications: The GUARDIAN trial PI: Mary Solorio MD, LUCIA, CHLOÉ. Outcomes Research Department. Anesthesia [facility]. [facility]. This is a research study note. Patient assessments recorded here should not guide either clinical care or clinical decision-making. Hoang White was unavailable at the listed phone number. A voice message was left. We will attempt to contact the patient again at a later date. Catalina Muhammad Research Review Appraiser Outcomes Research [facility] documented in this encounter [facility] 02-28-2023 Miscellaneous Notes PATIENT INFORMATION Record ID: [id number] Patient Name: [facility]: [place] [facility]: [facility] Attending: Ana Enriquez Center: Colorectal Surgery INSTRUCTIONS Continue with script and ensure patient has appropriate number for [facility] or Appointment Center according to discharging physician s specialty and location at end of call All Clear SURVEY INFORMATION Medical/Nurse Review Appraiser: Karime Joyner 1. Your discharge instructions are [...] (Standard Question) No documented in this encounter [facility] 02-27-2023 Miscellaneous Notes Pt is aware [...] good. He is willing to see an spooler operator automatic for this. Ava Lewis documented in this encounter [facility] 02-22-2023 Note HNO ID: [id number] Author: Jose Zamora MD Service: Colorectal Author Type: Resident Type: Progress Notes Filed: 02/22/2023 11:04 AM Note Text: PROGRESS NOTES - SURGICAL SERVICES Hoang Whtie [id number] ASSESSMENT/PLAN: Hoang White is a 47 year [...] Surgery Surgery Blue Team [phone] weekdays. Or [phone] weeknights (6pm - 6am) and weekends. SUBJECTIVE [...] 0659 02/22/23 07 - 02/23/23 0659 Shift [id number] 0554-7916 3351-4583 24 Hour Total [phone] 7443-4040 6986-2218 24 Hour Total INTAKE PO 367 137 1821 PO 644 827 9493 IV 800 800 Volume (mL) (lactated ringers iv infusion) 800 800 Shift Total 0616 803 6702 OUTPUT Urine 261 139 9489 Void (ml) 496 354 9146 # of BMs Stool Incontinence 1 x [...] 0.71* GLUC 96 132* CA 9.3 9.1 [facility] 02-21-2023 Note HNO ID: [id number] Author: Indira Jacob RN Service: Care Management Author Type: Registered Nurse Type: Care Mgt Initial Assessment Filed: 02/21/2023 11:01 AM Note Text: CARE MANAGEMENT: ASSESSMENT AND DISCHARGE PLAN SERVICE DATE: February 21, 2023 SERVICE TIME: 11:00am PCP: Shaikh Kia MD Primary Contact: Extended Emergency Contact Information Primary Emergency Contact: Elsa Ribera Mobile Relation: Significant other Admission Status: Inpatient Insurance Provider: [facility] PPO Discharge Planning requested by: Per Department Practice Potential Transition Plans Home Advance Directives Current Advance Directive: None Agriculture Internship Attempted to Assist with AD Completion: Yes Action: Patient Unwilling Current Living Arrangements and Support Lives with: Spouse/significant other Type of Residence: Private Residence (Apartment or Condo) Support: Spouse/significant other How do you manage to accomplish the following: Independent: Ambulation;Bathe/Shower;Dress;Meal s/Meal Prep;Going to the bathroom;Medication Management;Transportation to appointments/community Current Services/Equipment Current Post-Acute Service(s): None Discharge Planning Patient Goal(s): General wellness [place] of Choice Explained: [place] of Choice Given: No Reason Not Given: [...] POD 1 ostomy reversal. Pt is independent TAGMAN, will have assistance and transportation at d/c. No skilled needs noted. CM will continue to follow as needed. SIGNATURE: Indira Jacob RN PATIENT NAME: Hoang White DATE: February 21, 2023 TIME: 11:00 AM CONTACT #: [phone] [facility] 02-21-2023 Note HNO ID: [id number] Author: Cherelle Ellis MD Service: Colorectal Author Type: Resident Type: Progress Notes Filed: 02/21/2023 9:06 AM Note Text: Attestation signed by Ana Enriquez MD at 02/21/2023 5:31 PM [facility]ORS STAFF PHYSICIAN NOTE OF PERSONAL INVOLVEMENT IN CARE I have reviewed the history and physical exam obtained and documented by the resident and I personally participated in the rubin components. I have confirmed and edited as necessary, the PFSH and ROS obtained by others. I have discussed the case and management of the patient's care. nAa Enriquez MD Date of Service: February 21, 2023 COLORECTAL SURGERY PROGRESS NOTE Hoang White [id number] ASSESSMENT AND PLAN Hoang White is a [...] Anesthesia Type: * CLOSURE ILEOSTOMY - General [facility] 02-21-2023 Note HNO ID: [id number] Author: Grnat Colbert MD Service: Colorectal Author Type: Resident Type: Plan of Care Filed: 02/21/2023 3:44 AM Note Text: PLAN OF CARE Hoang White [id number] This is a 47 year old male [...] Colbert MD Colorectal surgery Surgery Blue Team [phone] week. Or [phone] weeknights (6pm - 6am) and weekends. [facility] 02-20-2023 Note HNO ID: [id number] Author: Grant Colbert MD Service: Colorectal Author [...] Grant Colbert MD PGY-1 Surgery Blue Team [phone] weekdays. Or [phone] weeknights (6pm - 6am) and weekends. [facility] 02-20-2023 Note HNO ID: [id number] Author: Pedro Luis Rome DO Service: Anesthesiology [...] February 20, 2023 TIME: 9:01 PM CSN: [id number] [facility] 02-20-2023 Note HNO ID: [id number] Author: Kimberli Blas APRN.SPEECH PATHOLOGY SUPERVISOR Service: Anesthesiology Author Type: Nurse Telecommunications Switch Technician Type: Anesthesia Procedure Notes Filed: 02/20/2023 5:53 PM Note Text: ANESTHESIOLOGY PROCEDURE NOTE PIV General Information Procedure Start Time/Medication Administration: 02/20/2023 5:53 PM Patient Location: OR Staffing SPEECH PATHOLOGY SUPERVISOR: Kimberli Blas APRN.SPEECH PATHOLOGY SUPERVISOR Performed by: LILI Preparation Sterility Preparation: hand [...] February 20, 2023 TIME: 5:53 PM CSN: [id number] [facility] 02-20-2023 Note HNO ID: [id number] Author: Kimberli Blas APRN.SPEECH PATHOLOGY SUPERVISOR Service: Anesthesiology Author Type: Nurse Telecommunications Switch Technician Type: Anesthesia Procedure Notes Filed: 02/20/2023 5:53 PM Note Text: ANESTHESIOLOGY PROCEDURE NOTE Airway General Information Procedure Start Time/Medication Administration: 02/20/2023 5:29 PM Patient location during procedure: OR Patient identity confirmed: arm band, care cafeteria team leader and patient Staffing SPEECH PATHOLOGY SUPERVISOR: Kimberli Blas APRN.SPEECH PATHOLOGY SUPERVISOR Performed by: LILI Indications and Patient Condition [...] February 20, 2023 TIME: 5:53 PM CSN: [id number] [facility] 02-17-2023 Miscellaneous Notes Pt called about FMLA paperwork from 01/09/23 to 02/17/23. I left a message with his spouse that he will need to contact his primary so they can fill out the FMLA paperwork. He was given FMLA paperwork for his surgery in October. documented in this encounter [facility] 02-16-2023 Miscellaneous Notes Employer Forms for Patient/Caregiver Time Off of Work FMLA completed, signed by provider, and returned to below contact. Completed copy scanned in [facility] Date of Surgery: 02/20/23 Estimated RTW date: 04/17/23 Employer: sent to Guardian Disability Department Date sent to employer: 02/16/23 Received fax confirmation: YES Kalen Leos MA documented in this encounter [facility] 02-09-2023 History and physical note HISTORY [...] SURGICAL HISTORY OF 2020 teeth pullled out PAST SURGICAL HISTORY OF [...] fevers. Neuro: No history of TIA's, stroke, WARP SPLITTER tumor, impaired sensorium, hemiplegia, paraplegia or quadraplegia. [...] 400 QTC Calculation (Bazett) 434 Calculated P [place] 60 Calculated R [place] 127 Calculated T [place] 9 Impression NORMAL SINUS RHYTHM RIGHT AXIS DEVIATION NONSPECIFIC INTRAVENTRICULAR CONDUCTION DELAY ABNORMAL ECG Recent Results (from the past 23756 hour(s)) ECHO Collection Time: 01/17/22 1:15 PM [...] TIME: 1:40 PM documented in this encounter [facility] 02-09-2023 Instructions Ruba Awad APRN.CNP - 02/09/2023 10:40 AM EDT PATIENT PREOPERATIVE INSTRUCTIONS Ana Enriquez MD has scheduled you for your procedure at this surgery center: [facility]: [phone] --[id number] [address]. Please check in on the 1st floor [...] Advance Directive, please fax a copy to [phone] or email to for it to be [...] chart that day. documented in this encounter [facility] 01-31-2023 Note HNO ID: [id number] Author: RT Mira(R) Service: Radiology Author Type: Technologist Type: Progress [...] IV DATA: Not applicable SIGNED BY: RT Mira(eKlle) January 31, 2023 3:14 PM [facility] 01-31-2023 History of Present illness Narrative Radiology [...] IV DATA: Not applicable SIGNED BY: RT Mira(R) January 31, 2023 3:14 PM documented in this encounter [facility] 01-17-2023 Note HNO ID: [id number] Author: Ana Enriquez MD Service: ? Author [...] office on on 12/06/22 with Kaylin Aragon NAIL MILL WORKER for concerns of stoma trauma. Pouching issues: [...] date/level: 05/24/22- 5.9 Clinical stage: stage IIIC, [id number] Treatment: 5000 cGy in 25 fractions, 2 [...] by mouth ever (more content not included)... [facility] 01-17-2023 Nurse Note Education packet given. Ileostomy [...] No Drains: No documented in this encounter [facility] 01-17-2023 History of Present illness Narrative COLORECTAL SURGERY January 17, 2023 Hoang White Chief Complaint: surveillance of rectal cancer History of Present Illness: Hoang White is a 47 year old male presents to the office for surveillance of rectal cancer. 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. Last seen in the office on on 12/06/22 with Kaylin Aragon NAIL MILL WORKER for concerns of stoma trauma. Pouching issues: [...] date/level: 05/24/22- 5.9 Clinical stage: stage IIIC, [id number] Treatment: 5000 cGy in 25 fractions, 2 [...] 10 mL injection (DEFINITY) INTRAVENOUS DIRECTED PRN Oscar Gonzalez MD sodium chloride 0.9 % (flush) [...] drug use of herorin Physical Exam: BP 98/55 (BP Site: Right [...] mucus at anastomosis precluded evaluation of patency/narrowing Pattern Developer present: Yes Kelsea Assessment Assessment and Plan: [...] which included preparing to see the patient, [id number] patient care, completing clinical documentation, obtaining and/or reviewing separately obtained history, performing a medically appropriate examination, counseling and educating the patient/family/caregiver, ordering medications, tests, or procedures, and care coordination (not separately reported). Ana Enriquez MD Colorectal Surgery documented in this encounter [facility] 01-02-2023 Miscellaneous Notes Returned call and left voice message. Pt. Family called and has concerns with his stoma site would like a call. PH:[phone] documented in this encounter [facility] 12-21-2022 Miscellaneous Notes Voicemail received from [...] Meghan Pichardo RN documented in this encounter [facility] 12-20-2022 Miscellaneous Notes Call returned to patient. No answer, left message to return call to office to schedule an earlier follow up for complaint of pain. LM no prescription to be sent in until evaluation. Office number provided to schedule - offered next day appt. With [facility] [facility] WORKER. Dr Enriquez aware of request Patient called regarding post operative 11/07 robotic laparoscopic proctectomy and wound like a refill on pain medication return call to [phone] documented in this encounter [facility] 12-14-2022 Miscellaneous Notes Faxed to [facility] #[phone] on 12/14/22. Bárbara Sexton MA Short term disability for surgery recovery has been completed and placed in folder to be signed. Pt would like paperwork faxed to [employer] and secured emailed to work. Email attached to paperwork. Ava Lewis documented in this encounter [facility] 12-06-2022 Note HNO ID: [id number] Author: Kaylin Aragon APRN.CONCRETE PIPE MACHINE OPERATOR Service: ? Author Type: Nurse Practitioner [...] drug use of (more content not included)... [facility] 12-06-2022 History of Present illness Narrative COLORECTAL [...] APRN.TAHIRA Colorectal Surgery documented in this encounter [facility] 12-06-2022 Nurse Note Summary: pain at [...] No Drains: No documented in this encounter [facility] 12-05-2022 Miscellaneous Notes Returned call. Elsa [...] the stoma and leakage return call to [phone] documented in this encounter [facility] 11-24-2022 Note HNO ID: [id number] Author: Bouchra Thompson APRN.CONCRETE PIPE MACHINE OPERATOR Service: ? Author Type: Nurse Practitioner Type: Progress Notes Filed: 11/28/2022 12:29 PM Note Text: Rectal Cancer Tumor Board Post-Operative Discussion Note Date of conference: 11/24/2022 Conference was within 4 weeks of surgery: Yes Presenter/specialty: LEO Enriquez Pretreatment (clinical) stage: [id number] stage IIIC Pre-treatment CEA level: 25.4 Was [...] Gross Pathology Grade: complete Final pathology stage: [id number] stage IIA AJCC Tumor Regression Grade: 2 MSI status: DIANNE Pathology report read by Dr. Malave/Jason: Yes Pathology report include all elements as outlined by [employer]: Yes Pathology report uses a standard synoptic format: Yes Pathology report completed within two weeks of surgical resection: Yes Adjuvant therapy recommended (Y/N) and type: No Referral to medical oncology: established Referral to radiation oncology: established Referral to palliative care/supportive care services: No Genetic counseling referral: no Patient eligible to clinical trial enrollment: No Other Discussion: 47 year old male with S2sF3tNp stage IIIC rectal cancer. Now s/p a Colostomy Takedown, Robotic Assisted Laparoscopic Proctosigmoidectomy (Low Anterior Resection) with Colorectal Anastomosis and Diverting Loop Ileostomy, Flexible Sigmoidoscopy on 11/07/2022. Post-op pathology [id number] stage IIA. Plan for standard surveillance. Monitor [...] Enriquez and was shared with the patient [facility] 11-21-2022 Miscellaneous Notes Pt calls asking if [...] Meghan Pichardo RN documented in this encounter [facility] 11-17-2022 Miscellaneous Notes Tumor board documented in this encounter [facility] 11-16-2022 Miscellaneous Notes Returned call and left voice message. Patient called in and has post-op questions/surgical concerns. Patient had surgery on with Dr. Enriquez on 11/07/22. Contact# [phone] documented in this encounter [facility] 11-12-2022 Note HNO ID: [id number] Author: Crystal Guzman (Metal Stud Framer) Service: Pharmacy Author Type: ? Type: Plan [...] TWO CADEN, ENSURE PLUS, ENLIVE Crystal Guzman (Metal Stud Framer) PAGER: [phone] November 14, 2022 2:36 PM [facility] 11-12-2022 Note HNO ID: [id number] Author: Diego Osorio MD Service: Colorectal Author Type: Resident Type: Progress Notes Filed: 11/12/2022 7:38 AM Note Text: COLORECTAL SURGERY PROGRESS NOTE Hoang White [id number] ASSESSMENT AND PLAN Hoang White is a [...] - plan for DC Diego Osorio MD [phone] Patient Active Hospital Problem List: Rectal cancer [...] LAPAROSCOPIC PROCTECTOMY COMPLETE W/ ABDOMINOPERINEAL W/COLOSTOMY - [facility] 11-11-2022 Note HNO ID: [id number] Author: Pedro Luis Waite DO Service: Pain [...] anticholinergics given his hyperactive delirium Pedro Luis Waite, DO 4:49 PM November 11, 2022 [facility] 11-11-2022 Note HNO ID: [id number] Author: Zoraida Perez RN Service: Care Management Author Type: Registered Nurse Type: Care Mgt Progress Note Filed: 11/11/2022 2:54 PM Note Text: CARE MANAGEMENT WEEKEND PLANNING NOTE DISCHARGE OR POSSIBLE DISCHARGE Date/Time: Monday Disposition: Pt is accepted by [facility], however he declines Home Care. He stated: I don't need home care this time, I have an account with [employer] for supplies, I know what I am doing with it, and my girlfriend can help me. Transport: Girlfriend to assist at hi Weekend Licensed Bondsman Pager #: Gabby Weeks [phone] SIGNATURE: Zoraida Perez RN PATIENT NAME: Hoang White DATE: November 11, 2022 TIME: 2:51 PM PAGER/CONTACT #: [phone] [facility] 11-11-2022 Note HNO ID: [id number] Author: Diego Osorio MD Service: Colorectal Author Type: Resident Type: Progress Notes Filed: 11/11/2022 8:40 AM Note Text: Attestation signed by Ana Enriquez MD at 11/11/2022 8:23 PM [facility] STAFF PHYSICIAN NOTE OF PERSONAL INVOLVEMENT IN [...] 2022 COLORECTAL SURGERY PROGRESS NOTE Hoang White [id number] ASSESSMENT AND PLAN Hoang White is a [...] plan for DC tomorrow Diego Osorio MD [phone] Patient Active Hospital Problem List: Rectal cancer [...] LAPAROSCOPIC PROCTECTOMY COMPLETE W/ ABDOMINOPERINEAL W/COLOSTOMY - [facility] 11-10-2022 Note HNO ID: [id number] Author: Zoraida Perez RN Service: Care Management Author Type: Registered Nurse Type: Care Mgt Initial Assessment Filed: 11/10/2022 2:08 PM Note Text: CARE MANAGEMENT: ASSESSMENT AND DISCHARGE PLAN SERVICE DATE: November 10, 2022 SERVICE TIME: 2:00 PM PRIMARY CARE PHYSICIAN: Shaikh Kia MD Primary Contact: Extended Emergency Contact Information Primary Emergency Contact: Elsa Ribera Mobile Relation: Significant other ADMISSION STATUS: Inpatient Insurance Provider: MOFFETT ZACHARY PPO NEEDS PRIOR TO DISCHARGE Needs Prior to Discharge: To Be Determined POTENTIAL TRANSITION PLANS Patient's perception of need for this admission: surgery for rectal cancer ADVANCE DIRECTIVES Current Advance Directive: None Agriculture Internship Attempted to Assist with AD Completion: Yes [...] See Comment Name of Caregiver: Pt declined [facility] FREEDOM OF CHOICE EXPLAINED: yes, declined [facility] Are you interested in bedside delivery of [...] alert and oriented x3. The pt declined C, he states he has an account with [employer] for ostomy supplies, he know what he is doing and his SO will assist him if needed. He declined to answer further questions for this assessment. He states, I am worried about my health I don't care about what Insurance I have. SIGNATURE: Zoraida Perez RN PATIENT NAME: Hoang White DATE: November 10, 2022 TIME: 2:00 PM CONTACT #: [phone] [facility] 11-10-2022 Note HNO ID: [id number] Author: Bouchra Thompson APRN.CONCRETE PIPE MACHINE OPERATOR Service: Colorectal Author Type: Nurse Practitioner Type: Progress Notes Filed: 11/10/2022 3:31 PM Note Text: COLORECTAL SURGERY PROGRESS NOTE Hoang White [id number] ASSESSMENT AND PLAN Hoang White is a [...] synthroid Nikki Viveros MD General Surgery PGY-2 [facility] Surgery [place] (General Surgery) - [phone] [place] (Hepatobiliary, Breast, Bariatric) - [phone] Blue (Colorectal) - [phone] Red (Vascular) - [phone] Pediatric Surgery - [id number] [place] [facility] Surgery Night/Weekend On-call - [phone] Please kindly include urgency and call-back number [...] nursing to keep the team informed. Bouchra Thompson APRN.CONCRETE PIPE MACHINE OPERATOR Patient Active Hospital Problem List: Rectal [...] LAPAROSCOPIC PROCTECTOMY COMPLETE W/ ABDOMINOPERINEAL W/COLOSTOMY - [facility] 11-09-2022 Note HNO ID: [id number] Author: Lois Ureña DO Service: Pain Management [...] AM Patient location during procedure: [place] (On [facility]) Timeout Performed Pre-procedure: timeout performed Consent Obtained: Yes Patient identity confirmed: arm band, patient and care cafeteria team leader Reason for block: post-op pain management/at surgeon's [...] November 09, 2022 TIME: 12:23 PM CSN: [id number] [facility] 11-09-2022 Note HNO ID: [id number] Author: Diego Osorio MD Service: Colorectal Author [...] 2022 COLORECTAL SURGERY PROGRESS NOTE Hoang White [id number] ASSESSMENT AND PLAN Hoang White is a [...] home statin and synthroid Diego Osorio MD [phone] Patient Active Hospital Problem List: Rectal cancer [...] PROCTECTOMY COMPLETE W/ ABDOMINOPERINEAL W/COLOSTOMY - General [facility] 11-08-2022 Note HNO ID: [id number] Author: Diego Osorio MD Service: Colorectal Author [...] 2022 COLORECTAL SURGERY PROGRESS NOTE Hoang White [id number] ASSESSMENT AND PLAN Hoang White is a 47 year old male with PMH of rectal cancer who underwent a robotic LAR with DLI on 11/07. - CLD - PO tylenol, gabapentin. Toradol + PLANT DIRECTOR for pain - mIVF until tolerating sufficient PO, replete lytes prn - OOB as tolerated, encourage ambulation - Encourage incentive spirometry - No abx indicated - continue kirkpatrick, strict I/os, maintain LES - SCDS + lovenox for dvt ppx - protonix for gi ppx - no glycemic issues - continue home statin and synthroid Diego Osorio MD [phone] Patient Active Hospital Problem List: Rectal cancer [...] PROCTECTOMY COMPLETE W/ ABDOMINOPERINEAL W/COLOSTOMY - General [facility] 11-08-2022 Note HNO ID: [id number] Author: Maximo Alarcon MD Service: General Surgery [...] appliance Ext: Warm, well perfused Drains: JPx1 MELANIE, debra Alarcon MD General Surgery PGY-1 On-Call pager: [phone] [facility] 11-08-2022 Note HNO ID: [id number] Author: Phyllis Claros RN Service: Nursing Author Type: Registered Nurse Type: Nursing Progress Note Filed: 11/07/2022 10:26 PM Note Text: 1015: Dr. Osorio paged d/t pt's complaints of pain, PLANT DIRECTOR dose increased [facility] 11-07-2022 Note HNO ID: [id number] Author: Rowena Martinez APRN.SPEECH PATHOLOGY SUPERVISOR Service: Anesthesiology Author Type: Nurse Telecommunications Switch Technician Type: Anesthesia Procedure Notes Filed: 11/07/2022 5:07 PM Note Text: ANESTHESIOLOGY PROCEDURE NOTE Gastric Tube General Information Procedure Start Time/Medication Administration: 11/07/2022 4:00 PM Patient location during procedure: OR Patient identity confirmed: arm band Indication: gastric decompression Staffing SPEECH PATHOLOGY SUPERVISOR: Rowena Martinez APRN.SPEECH PATHOLOGY SUPERVISOR Performed by: LILI Procedure Details Type: Orogastric tube Cortrak monitor used: No Size: 18 Fr cm Distance Advanced: 50 cm Initial Auscultation Appears Confirmatory: Yes Successful Placement: yes Post-Procedure Details SIGNATURE: Rowena Martinez APRN.CRNA PATIENT NAME: Hoang White DATE: November 07, 2022 TIME: 5:06 PM CSN: [id number] [facility] 11-07-2022 Note HNO ID: [id number] Author: Rowena Martinez APRN.SPEECH PATHOLOGY SUPERVISOR Service: Anesthesiology Author Type: Nurse Telecommunications Switch Technician Type: Anesthesia Procedure Notes Filed: 11/07/2022 5:06 [...] November 07, 2022 TIME: 5:06 PM CSN: [id number] [facility] 11-07-2022 Note HNO ID: [id number] Author: Rowena Martinez APRN.CRNA Service: Anesthesiology Author Type: Nurse Telecommunications Switch Technician Type: Anesthesia Procedure Notes Filed: 11/07/2022 5:06 PM Note Text: ANESTHESIOLOGY PROCEDURE NOTE Airway General Information Procedure Start Time/Medication Administration: 11/07/2022 3:49 PM Patient location during procedure: OR Patient identity confirmed: patient Staffing SPEECH PATHOLOGY SUPERVISOR: Rowena Martinez APRN.SPEECH PATHOLOGY SUPERVISOR Performed by: LILI Indications and Patient Condition [...] no Airway not difficult SIGNATURE: Rowena Martinez APRN.CRNA PATIENT NAME: Hoang White DATE: November 07, 2022 TIME: 5:05 PM CSN: [id number] [facility] 11-07-2022 Note HNO ID: [id number] Author: Lois Ureña DO Service: Pain Management [...] Patient identity confirmed: arm band and care cafeteria team leader Reason for block: post-op pain management/at surgeon's [...] November 07, 2022 TIME: 4:06 PM CSN: [id number] [facility] 10-28-2022 History and physical note HISTORY [...] Prior to Admission medications as of 10/13/22 3015 Medication Sig Last Dose Taking buPROPion XL [...] fevers. Neuro: No history of TIA's, stroke, WARP SPLITTER tumor, impaired sensorium, hemiplegia, paraplegia or quadraplegia. No neurological symptoms or problems. Respiratory: No history of current cough or dyspnea, or pneumonia in the past 6 weeks. No history of respiratory/pulmonary symptoms or problems. Cardiovascular: Negative for Recent SD, Angina, Chest Pain, HTN, PVD +DVT 8 [...] 406 QTC Calculation (Bazett) 445 Calculated P Oakwood 46 Calculated R Oakwood 127 Calculated T Oakwood -2 Impression Sinus rhythm Right axis Nonspecific intraventricular conduction delay Abnormal ECG Confirmed by PIPPA YODER M.D. ([id number]) on 02/25/2022 9:47:37 PM Recent Results (from the past 80997 hour(s)) ECHO Collection Time: 01/17/22 1:15 PM [...] >15 years ago DVT (deep venous thrombosis) ([facility]) Assessment: remote hx Treated with 6 [...] TIME: 11:47 AM documented in this encounter [facility] 10-27-2022 Instructions Juliana Peterson APRN.CNP - 10/27/2022 11:39 AM EST PATIENT PREOPERATIVE INSTRUCTIONS Ana Enriquez MD has scheduled you for your procedure at this surgery center: [facility]: [phone] --[id number] [address]. Please check in on the 1st floor [...] Advance Directive, please fax a copy to [phone] or email to for it to be [...] and scanned into your chart that day. Julaina Peterson APRN.CNP documented in this encounter [facility] 10-17-2022 Note HNO ID: [id number] Author: RT Torsten(Kelle) Service: ? Author Type: Technologist Type: Progress [...] contrast PATIENT DISCHARGED TO: Ambulatory patient, left AL department area. A Diagnostic radioactive procedure has taken place, with no further precautions necessary other than routine body substance precautions. More information regarding radiation safety can be found using this link: [email or web address] [email or web address] SIGNATURE: RT Torsten(R) PATIENT NAME: Hoang White DATE: October 17, 2022 TIME: 12:28 PM PAGER/CONTACT #: [facility] 10-13-2022 History and physical note PROCEDURAL SEDATION [...] October 13, 2022 documented in this encounter [facility] 10-13-2022 Note HNO ID: [id number] Author: Bouchra Thompson APRN.TAHIRA Service: ? Author Type: Nurse Practitioner Type: Progress Notes Filed: 10/13/2022 1:43 PM Note Text: Rectal Cancer Tumor Board Imaging Review Date of conference: 10/13/2022. Presenter/specialty: CORSelvin Enriquez History of present illness: 47 year [...] Enriquez and was shared with the patient [facility] 10-11-2022 Miscellaneous Notes Notification to doctor's office that patient has been called to schedule PACC prior to surgery. Patient has failed to schedule. No call back needed. documented in this encounter [facility] 10-05-2022 Miscellaneous Notes Call placed to patient's significant other Ghazala at [phone]. No answer, left message re: date of flex sig 10/13, date of abdomen/pelvis 10/17, and OR date of 11/07/2022. Office number provided for call back to discuss further documented in this encounter [facility] 10-04-2022 Note HNO ID: [id number] Author: Ana Enriquez MD Service: ? Author [...] date/level: 05/24/22- 5.9 Clinical stage: stage IIIC, [id number] Treatment: 5000 cGy in 25 fractions, 2 [...] every 24 hour (more content not included)... [facility] 10-04-2022 History of Present illness Narrative COLORECTAL [...] date/level: 05/24/22- 5.9 Clinical stage: stage IIIC, [id number] Treatment: 5000 cGy in 25 fractions, 2 [...] by mouth three times daily with meals. 43237 mL 0 lactobacillus rhamnosus (CULTURELLE) 10 billion cell capsule Take 1 capsule by mouth once daily. 30 capsule 0 Current Facility-Administered Medications Medication Dose Route Frequency Provider Last Rate Last Admin perflutren lipid microspheres 1.3 mL in NaCl (PF) 0.9% 10 mL injection (DEFINITY) INTRAVENOUS DIRECTED PRN Oscar Gonzalez MD sodium chloride 0.9 % (flush) [...] medical complications of surgery including DVT/PE, PNA, SD, stroke, and . The patient understands these [...] which included preparing to see the patient, [id number] patient care, completing clinical documentation, obtaining and/or reviewing separately obtained history, performing a medically appropriate examination, counseling and educating the patient/family/caregiver, ordering medications, tests, or procedures, communicating with other HCPs (not separately reported), independently interpreting results (not separately reported), communicating results to the patient/family/caregiver, and care coordination (not separately reported). Ana Enriquez MD Colorectal Surgery documented in this encounter [facility] 09-27-2022 Miscellaneous Notes Pt's notified and states pt has a follow up appointment with Dr Enriquez on 10/04 to discuss surgery. Meghan Pichardo RN ----- Message from Oscar Gonzalez MD sent at 09/26/2022 4:26 PM EST ----- Call with results and state that he has responded and will likely need surgery. Thanks documented in this encounter [facility] 09-26-2022 Note HNO ID: [id number] Author: RT Ariella(R) Service: Radiology Author Type: [...] RT Ariella(R) September 26, 2022 2:45 PM [facility] 09-26-2022 Note HNO ID: [id number] Author: BARB Altamirano) Service: Radiology Author Type: [...] RT Dell(Kelle) September 26, 2022 1:48 PM [facility] 09-26-2022 History of Present illness Narrative [...] 2022 1:48 PM documented in this encounter [facility] 09-26-2022 Nurse Note Radiology Service Progress [...] Please leave in IV for MRI at [facility]. SIGNATURE: Kylah Butler RN PATIENT NAME: Hoang White DATE: September 26, 2022 TIME: 1:40 PM documented in this encounter [facility] 09-23-2022 Miscellaneous Notes MRI- 09/26/2022 @ 200PM Appointment reminder call- spoke with Elsa- gave directions to the office- states patient has another appointment before ours and will be here after documented in this encounter [facility] 08-26-2022 Miscellaneous Notes Summary: Research Follow Up GUARDIAN IRB# [id number] IRB # [id number] Tight perioperative blood pressure management to reduce serious cardiovascular, renal, and cognitive complications: The GUARDIAN trial PI: Mary Solorio MD, LUCIA, FASA. Outcomes Research Department. [facility]. [facility]. This is a research study note. [...] the morning next week. Catalina Muhammad Research Review Appraiser Outcomes Research [facility] documented in this encounter [facility] 08-26-2022 Note HNO ID: [id number] Author: Temi Dean PA-C Service: ? Author Type: Physician Review Appraiser Type: Progress Notes Filed: 08/26/2022 12:07 PM Note Text: PATIENT NAME: Hoang White CLINIC NO.: [id number] ATTENDING PHYSICIAN: Oscar Gonzalez MD DATE OF [...] Value Ref Rang (more content not included)... [facility] 08-26-2022 History of Present illness Narrative Images from the original note were not included. PATIENT NAME: Hoang White [facility] NO.: [id number] ATTENDING PHYSICIAN: Oscar Gonzalez MD DATE OF [...] 2. Severe TR ( ECHO 12/2021 at [facility]): - The left ventricle is normal in [...] 0.44 (L) 1.00 - 4.00 k/uL Final Arthur% Date Value Ref Range Status 08/26/2022 12.9 % Final Abs Arthur Date Value Ref Range Status 08/26/2022 0.48 [...] Ana Enriquez MD documented in this encounter [facility] 08-25-2022 Miscellaneous Notes Summary: Research Follow Up GUARDIAN IRB# [id number] IRB # [id number] Tight perioperative blood pressure management to reduce serious cardiovascular, renal, and cognitive complications: The GUARDIAN trial PI: Mary Solorio MD, LUCIA, FASA. Outcomes Research Department. [facility]. [facility]. This is a research study note. Patient assessments recorded here should not guide either clinical care or clinical decision-making. Hoang White was unavailable at the listed phone number. A voice message was left. We will attempt to contact the patient again at a later date. Catalina Muhammad Research Review Appraiser Department of OUTCOMES RESEARCH [facility] documented in this encounter [facility] 08-08-2022 Miscellaneous Notes Call received from Sridevi at [facility] in [place] requesting ICD codes to use for pt's order for ensure. Codes provided. Meghan Pichardo RN documented in this encounter [facility] 08-06-2022 Note HNO ID: [id number] Author: Tylor Davalos MD Service: ? Author Type: Physician Type: Progress Notes Filed: 08/17/2022 4:39 AM Note Text: Radiation Oncology - Follow Up Note PATIENT NAME: Hoang White PATIENT DIAGNOSIS/PATIENT IDENTIFICATION: Mr. White is a 47-year-old gentleman recently diagnosed with stage IIIC, [id number] adenocarcinoma of the rectum status post colonoscopy [...] VASCULAR INVASION (E (more content not included)... [facility] 08-05-2022 History of Present illness Narrative Radiation Oncology - Follow Up Note PATIENT NAME: Hoang White PATIENT Signed by: Tylor Davalos MD I spent a total of 20 minutes on the date of the service which included preparing to see the patient, upfd-gm-rabu patient care, and counseling and educating the patient/family/caregiver. This document has been created with the use of voice recognition technology. It may contain inaccuracies, misspellings, inaccurate syntax or inappropriate word context that are a result of the inadequacies/shortcomings of said technology/software. documented in this encounter [facility] 08-05-2022 Miscellaneous Notes Pt called and discussed this with him. Please refer to other telephone encounter. Meghan Pichardo RN Patient stopped up at front desk associate to see if there is anything we can do with the pain he is getting in his hands. He says he is getting a cold feeling he thinks from Chemo. If you can please call him today. Indira Evans documented in this encounter [facility] 08-05-2022 Note HNO ID: [id number] Author: Oscar Gonzalez MD Service: ? Author Type: Physician Type: Progress Notes Filed: 08/05/2022 10:13 AM Note Text: PATIENT NAME: Hoang White CLINIC NO.: [id number] ATTENDING PHYSICIAN: Oscar Gonzalez MD DATE OF [...] 2. Severe TR ( ECHO 12/2021 at [facility]): - The left ventricle is normal in [...] 07/15/2022 4.4 Bilirubin, Total (mg/dL) Date Value (more content not included)... [facility] 08-05-2022 Miscellaneous Notes Addended by: OSCAR GONZALEZ on: 08/05/2022 11:11 AM Modules accepted: Orders documented in this encounter [facility] 08-05-2022 History of Present illness Narrative PATIENT NAME: Hoang White CLINIC NO.: [id number] ATTENDING PHYSICIAN: Oscar Gonzalez MD DATE OF [...] 2. Severe TR ( ECHO 12/2021 at [facility]): - The left ventricle is normal in [...] 0.56 (L) 1.00 - 4.00 k/uL Final Arthur% Date Value Ref Range Status 08/05/2022 12.1 % Final Abs Arthur Date Value Ref Range Status 08/05/2022 0.43 [...] do not hesitate to contact me at [phone]. Oscar Gonzalez MD Hematology/Medical Oncology [facility] spent a total of 25 minutes on the date of the service which included preparing to see the patient, [id number] patient care, completing clinical documentation, obtaining and/or reviewing separately obtained history, performing a medically appropriate examination, counseling and educating the patient/family/caregiver, ordering medications, tests, or procedures and communicating with other HCPs (not separately reported). Medical Decision Making: Medical Decision Making Level: 1 - N/A CC: Ana Enriquez MD documented in this encounter [facility] 07-15-2022 Note HNO ID: [id number] Author: Temi Dean PA-C Service: ? Author Type: Physician Review Appraiser Type: Progress Notes Filed: 07/15/2022 9:59 AM Note Text: PATIENT NAME: Hoang White [facility] NO.: [id number] ATTENDING PHYSICIAN: Oscar Gonzalez MD DATE OF [...] 2. Severe TR ( ECHO 12/2021 at [facility]): - The left ventricle is normal in [...] Value 06/24/2022 15 (more content not included)... [facility] 07-15-2022 Note HNO ID: [id number] Author: Kat Jara RN Service: ? Author [...] requested. Lisa RN coming to assess patient. [facility] 07-15-2022 Miscellaneous Notes B12 has been ordered [...] Angella Gautam RN documented in this encounter [facility] 07-15-2022 History of Present illness Narrative Images from the original note were not included. PATIENT NAME: Hoang White [facility] NO.: [id number] ATTENDING PHYSICIAN: Oscar Gonzalez MD DATE OF [...] 2. Severe TR ( ECHO 12/2021 at [facility]): - The left ventricle is normal in [...] 0.50 (L) 1.00 - 4.00 k/uL Final Arthur% Date Value Ref Range Status 06/24/2022 10.0 % Final Abs Arthur Date Value Ref Range Status 06/24/2022 0.55 [...] See back in 3 weeks for cycle 3/. Temi Dean PA-C CC: Ana Enriquez MD documented in this encounter [facility] 07-15-2022 History of Present illness Narrative [...] requested. Lisa STATON coming to assess patient. documented in this encounter [facility] 06-27-2022 Miscellaneous Notes Pt calls stating he still hasn't heard from [facility] regarding his Xeloda pills. Explained to pt that the new script was escribed through to [facility] and they should have it ready to be shipped to him. Instructed pt to call [facility] to schedule delivery. Pt verbalized understanding and will call now. Meghan Pichardo RN documented in this encounter [facility] 06-24-2022 Note HNO ID: [id number] Author: Oscar Gonzalez MD Service: ? Author Type: Physician Type: Progress Notes Filed: 06/24/2022 10:14 AM Note Text: PATIENT NAME: Hoang White [facility] NO.: [id number] ATTENDING PHYSICIAN: Oscar Gonzalez MD DATE OF [...] 2. Severe TR ( ECHO 12/2021 at [facility]): - The left ventricle is normal in [...] 0.4 Alkaline Phosphata (more content not included)... [facility] 06-24-2022 History of Present illness Narrative Images from the original note were not included. PATIENT NAME: Hoang White [facility] NO.: [id number] ATTENDING PHYSICIAN: Oscar Gonzalez MD DATE OF [...] 2. Severe TR ( ECHO 12/2021 at [facility]): - The left ventricle is normal in [...] 0.55 (L) 1.00 - 4.00 k/uL Final Arthur% Date Value Ref Range Status 06/03/2022 7.4 % Final Abs Arthur Date Value Ref Range Status 06/03/2022 0.50 [...] do not hesitate to contact me at [phone]. Oscar Gonzalez MD Hematology/Medical Oncology [facility] spent a total of 25 minutes on the date of the service which included preparing to see the patient, [id number] patient care, completing clinical documentation, obtaining and/or reviewing separately obtained history, performing a medically appropriate examination, counseling and educating the patient/family/caregiver, ordering medications, tests, or procedures and communicating with other HCPs (not separately reported). Medical Decision Making: Medical Decision Making Level: 1 - N/A CC: Ana Enriquez MD documented in this encounter [facility] 06-23-2022 Miscellaneous Notes Pt is due to start treatment tomorrow and doesn't have any Xeloda. Please sign pending script. Thanks Meghan Pichardo RN documented in this encounter [facility] 06-10-2022 Miscellaneous Notes All paperwork faxed on 04/20/22. Ava Lewis Disability paperwork completed and placed in folder to be signed. Please fax all visit notes in folder along with his paperwork. Ava Lewis documented in this encounter [facility] 06-08-2022 Miscellaneous Notes Message left for pt to call our office back. Meghan Pichardo RN CYCLE 1/DAY 1 POST TREATMENT CALL Today's date: June 07, 2022 Treatment Regimen: Capox C1D1 Date: 06/03/22 Called patient and message left for pt to call our office back. Meghan Pichardo RN documented in this encounter [facility] 06-03-2022 History of Present illness Narrative SOCIAL WORK Date of Service:06/03/22 Hoang White is a 46 year old male being [...] appropriate. AXEL Poon documented in this encounter [facility] 06-03-2022 Miscellaneous Notes 1 day's dose needed while patient is waiting for mail order to arrive today. Elvin Pitts rPh documented in this encounter [facility] 06-03-2022 Miscellaneous Notes Confirmed with [facility] that capecitabine is out for delivery and will be delivered via UPS by 7 PM 06/03/22, no signature required Tracking #: [id number] Will have 1 dose available at [facility] Elvin Pitts rPh Discussed with pt at his education visit today. Pt notified to contact [facility] as soon as his education was complete. Pt verbalized understanding and number given to pt. Then called pt back regarding message below. Voicemail received. Notified pt on his voicemail that we have a couple options regarding his Xeloda when he is here in the morning. Encouraged pt to call our office back. Meghan Pichardo, SHEMAR Phone call placed to [facility] to check status of capecitabine prescription for CAPOX regimen. [facility] has been trying to reach out to patient with no success. Patient has chemo education via phone today with Meghan Pichardo RN Dietitian Teaching. Forwarded this information to Meghan to discuss with Hoang: Please call [facility] to schedule a delivery of your capecitabine that you will need for treatment tomorrow 06/03/22 ( .) Please let them know that you will need this to be shipped overnight to you. The shared services representative stated this is possible, if you call them prior to 6pm 06/02/22. Options available for am dose if he does not have any left from concurrent therapy include: 1. Purchasing 1 days dose from retail 2. Repository 1 days dose Jackie Pitts RPh documented in this encounter [facility] 06-02-2022 History of Present illness Narrative [...] Pt needs to refill his xeloda through [facility]. Phone number provided to pt and he will call today. Pt will need to either picker/puller his morning dose from our pharmacy or he'll need to get it from the repository. Pt is to receive his xeloda shipment overnight through [facility]. Time Spent: 25 minutes REFERRAL (RECOMMENDATION): N/A Meghan Pichardo RN documented in this encounter [facility] 05-30-2022 Miscellaneous Notes Summary: Research Follow Up GUARDIAN IRB# [id number] IRB # [id number] Tight perioperative blood pressure management to reduce serious cardiovascular, renal, and cognitive complications: The GUARDIAN trial PI: Mary Solorio MD, LUCIA, FASA. Outcomes Research Department. [facility]. [facility]. This is a research study note. Patient assessments recorded here should not guide either clinical care or clinical decision-making. I called the patient, Hoang White, today regarding follow-up for the study IRB [id number] Tight Perioperative Blood pressure Management to Reduce Serious Cardiovascular, renal, and Cognitive Complications (GUARDIAN) Trial. The patient said to call back tomorrow. Catalina Muhammad Research Review Appraiser Department of OUTCOMES RESEARCH [facility] documented in this encounter [facility] 05-25-2022 Miscellaneous Notes Summary: Research Follow Up [place] IRB# [id number] IRB # [id number] Tight perioperative blood pressure management to reduce serious cardiovascular, renal, and cognitive complications: The GUARDIAN trial PI: aMry Solorio MD, LUCIA, FASA. Outcomes Research Department. [facility]. [facility]. This is a research study note. Patient assessments recorded here should not guide either clinical care or clinical decision-making. Patient was unable to be reached by phone. I left a voicemail to call back at earliest convenience. Will call again at a later date. Catalina Muhammad Research Review Appraiser Outcomes Research [facility] documented in this encounter [facility] 05-25-2022 Miscellaneous Notes Patient was in to see med onc yesterday. Follow up as scheduled. Janine Holliday RN Call placed to patient to check status post XRT. LM requesting CB. Janine Holliday RN documented in this encounter [facility] 05-24-2022 Miscellaneous Notes Must use [facility] documented in this encounter [facility] 05-24-2022 History of Present illness Narrative Images from the original note were not included. PATIENT NAME: Hoang White CLINIC NO.: [id number] ATTENDING PHYSICIAN: Oscar Gonzalez MD DATE OF [...] 2. Severe TR ( ECHO 12/2021 at [facility]): - The left ventricle is normal in [...] 0.67 (L) 1.00 - 4.00 k/uL Final Arthur% Date Value Ref Range Status 05/24/2022 7.7 % Final Abs Arthur Date Value Ref Range Status 05/24/2022 0.45 [...] do not hesitate to contact me at [phone]. Oscar Gonzalez MD Hematology/Medical Oncology [facility] spent a total of 25 minutes on the date of the service which included preparing to see the patient, eirs-sr-vnxp patient care, completing clinical documentation, obtaining and/or reviewing separately obtained history, performing a medically appropriate examination, counseling and educating the patient/family/caregiver, ordering medications, tests, or procedures and communicating with other HCPs (not separately reported). Medical Decision Making: Medical Decision Making Level: 1 - N/A CC: Ana Enriquez MD documented in this encounter [facility] 05-24-2022 Nurse Note Education on flexible sigmoidoscopy given. Per patient request, he is scheduled for June 30 at [place]. No other questions at this time. documented in this encounter [facility] 05-24-2022 History of Present illness Narrative [...] date/level: 02/04/22 25.4 Clinical stage: stage IIIC, [id number] Treatment: 5000 cGy in 25 fractions, 2 [...] 46 year old male with stage IIIC, [id number] upper rectal adenocarcinoma s/p laparoscopic diverting end [...] which included preparing to see the patient, eacg-os-peie patient care, completing clinical documentation, obtaining and/or reviewing separately obtained history, performing a medically appropriate examination, counseling and educating the patient/family/caregiver, ordering medications, tests, or procedures, communicating with other HCPs (not separately reported), independently interpreting results (not separately reported), communicating results to the patient/family/caregiver and care coordination (not separately reported). Ana Enriquez MD Colorectal Surgery documented in this encounter [facility] 05-12-2022 Miscellaneous Notes Return to work letter unable to be faxed to [phone], called company they said that there fax is not working correct. Mailed to patient, copy placed in scanning. Bárbara Sexton MA documented in this encounter [facility] 05-12-2022 Miscellaneous Notes Radiology Service Progress [...] TIME: 2:01 PM documented in this encounter [facility] 05-03-2022 Miscellaneous Notes Pt notified and requests that we fax the letter to [employer]. Pt does not have the fax number. cEho fernandez/ Nory @ [employer]. Instructed to fax letter to [phone]. Letter faxed as requested. Beverly Sessler, RN Done Pt requesting a letter releasing him back to work starting 05/09/22. Asks that we include in the letter that he be able to work 40 hrs/week w/ no heavy lifting. Will you write? Beverly Black RN documented in this encounter [facility] 04-22-2022 Miscellaneous Notes Message left with [...] Meghan Pichardo RN documented in this encounter [facility] 04-14-2022 Miscellaneous Notes Jayce stopped inquiring about his most recent letter to be off work for an additional month. He said he dropped the letter of his company but wasn't sure if [employer] received a copy. He said [employer] is the company that sends him his disability checks. I called Nory Mariscal at [employer] ([phone]) and she said she did forward the letter to [employer]. She provided this information regarding [employer]. I gave Jayce a copy of the numbers as well. Fariba Mosley LPN Plan # [id number] documented in this encounter [facility] 04-12-2022 History of Present illness Narrative Images from the original note were not included. PATIENT NAME: Hoang White CLINIC NO.: [id number] ATTENDING PHYSICIAN: Oscar Gonzalez MD DATE OF [...] 2. Severe TR ( ECHO 12/2021 at [facility]): - The left ventricle is normal in [...] 0.54 (L) 1.00 - 4.00 k/uL Final Arthur% Date Value Ref Range Status 04/12/2022 6.3 % Final Abs Arthur Date Value Ref Range Status 04/12/2022 0.43 [...] do not hesitate to contact me at [phone]. Oscar Gonzalez MD Hematology/Medical Oncology [facility] spent a total of 25 minutes on the date of the service which included preparing to see the patient, jlhx-so-yuzq patient care, completing clinical documentation, obtaining and/or reviewing separately obtained history, performing a medically appropriate examination, counseling and educating the patient/family/caregiver, ordering medications, tests, or procedures and communicating with other HCPs (not separately reported). Medical Decision Making: Medical Decision Making Level: 1 - N/A CC: Ana Enriquez MD documented in this encounter [facility] 04-06-2022 History of Present illness Narrative Radiation Oncology - On Treatment Review (OTR) Note PATIENT NAME: Hoang White PATIENT DIAGNOSIS: Mr. White is a 46-year-old gentleman recently diagnosed with stage IIIC, [id number] adenocarcinoma of the rectum status post colonoscopy [...] Tylor Davalos MD documented in this encounter [facility] 04-01-2022 Nurse Note Patient states that his stoma is irritated, red, looks like the skin is deteriorating, sore and it has been almost a month. He has some concerns regarding this. Bárbara Sexton MA documented in this encounter [facility] 04-01-2022 History of Present illness Narrative Images from the original note were not included. PATIENT NAME: Hoang White CLINIC NO.: [id number] ATTENDING PHYSICIAN: Oscar Gonzalez MD DATE OF [...] 2. Severe TR ( ECHO 12/2021 at [facility]): - The left ventricle is normal in [...] on xrt with xeloda 1300 mg BID -. Tolerating it well. His diarrhea is stable. [...] 0.44 (L) 1.00 - 4.00 k/uL Final Arthur% Date Value Ref Range Status 04/01/2022 7.2 % Final Abs Arthur Date Value Ref Range Status 04/01/2022 0.41 [...] Ana Enriquez MD documented in this encounter [facility] 03-30-2022 History of Present illness Narrative Radiation Oncology - On Treatment Review (OTR) Note PATIENT NAME: Hoang White PATIENT DIAGNOSIS: Mr. White is a 46-year-old gentleman recently diagnosed with stage IIIC, [id number] adenocarcinoma of the rectum status post colonoscopy [...] Tylor Davalos MD documented in this encounter [facility] 03-25-2022 Miscellaneous Notes Summary: IRB# [id number] 30 Day Follow Up IRB # [id number] Tight perioperative blood pressure management to reduce serious cardiovascular, renal, and cognitive complications: The GUARDIAN trial PI: Mary Solorio MD, LUCIA, FASA. Outcomes Research Department. [facility]. [facility]. This is a research study note. [...] not yet complete. Rob Arcos MD [facility] Outcomes Research Department Research Fellow [facility] documented in this encounter [facility] 03-23-2022 History of Present illness Narrative Radiation Oncology - On Treatment Review (OTR) Note PATIENT NAME: Hoang White PATIENT DIAGNOSIS: Mr. White is a 46-year-old gentleman recently diagnosed with stage IIIC, [id number] adenocarcinoma of the rectum status post colonoscopy [...] Tylor Davalos MD documented in this encounter [facility] 03-18-2022 Nurse Note Clinical questionnaires incomplete due to Patient declined to complete or answer questions with nurse. Patient in a hurry to get to another appointment. Emily Garcia documented in this encounter [facility] 03-18-2022 Nurse Note What is the reason for your visit today? Post op Who is your referring physician? Self Are you having poor oral intake? NO Have you had unintentional weight loss of 15 lbs/7 Kg in the last 3-6 months? NO Bowels: regular Wound: clean & dry Temperature: No Drains: No documented in this encounter [facility] 03-18-2022 History of Present illness Narrative [...] pathology results - Pre-treatment clinical stage of [id number] stage IIIC. He is experiencing obstructive symptoms. [...] complications of treatment plan: low Bouchra Thompson APRN.CONCRETE PIPE MACHINE OPERATOR Colorectal Surgery documented in this encounter [facility] 03-18-2022 Miscellaneous Notes Addended by: OSCAR GONZALEZ on: 03/18/2022 01:48 PM Modules accepted: Orders documented in this encounter [facility] 03-18-2022 History of Present illness Narrative Images from the original note were not included. PATIENT NAME: Hoang White CLINIC NO.: [id number] ATTENDING PHYSICIAN: Oscar Gonzalez MD DATE OF [...] 2. Severe TR ( ECHO 12/2021 at [facility]): - The left ventricle is normal in [...] 02/24/2022 1.69 1.00 - 4.00 k/uL Final Arthur% Date Value Ref Range Status 02/24/2022 6.9 % Final Abs Arthur Date Value Ref Range Status 02/24/2022 0.67 [...] do not hesitate to contact me at [phone]. Oscar Gonzalez MD Hematology/Medical Oncology [facility] spent a total of 25 minutes on the date of the service which included preparing to see the patient, eziz-cq-fhfl patient care, completing clinical documentation, obtaining and/or reviewing separately obtained history, performing a medically appropriate examination, counseling and educating the patient/family/caregiver, ordering medications, tests, or procedures and communicating with other HCPs (not separately reported). Medical Decision Making: Medical Decision Making Level: 1 - N/A CC: Ana Enriquez MD documented in this encounter [facility] 03-16-2022 History of Present illness Narrative Radiation Oncology - On Treatment Review (OTR) Note PATIENT NAME: Hoang White PATIENT DIAGNOSIS: Mr. White is a 46-year-old gentleman recently diagnosed with stage IIIC, [id number] adenocarcinoma of the rectum status post colonoscopy [...] Tylor Davalos MD documented in this encounter [facility] 03-15-2022 Miscellaneous Notes [facility] paperwork signed by Dr. Gonzalez and faxed to [phone]. Bárbara Sexton MA documented in this encounter [facility] 03-15-2022 Miscellaneous Notes ORAL ANTI-CANCER AGENTS [...] had antiemetics to take. Pt forgot to picker/puller his zofran and compazine from our pharmacy and had some left over zofran from his surgery that he took. This helped and pt felt better on Monday. Pt will picker/puller antiemetics from our pharmacy today. Vomiting: No Weight gain/loss: Yes pt states he continues to lose weight. Offered test pilot to reach out to him and he [...] instructed to call if unable to comply. Meghan Pichardo RN documented in this encounter [facility] 03-14-2022 Miscellaneous Notes Sure Called patient [...] back. Ava Lewis documented in this encounter [facility] 03-11-2022 Miscellaneous Notes Returned call. He wanted to know if Dr. Enriquez would write a prescription for suboxone for him. States he was previously on it. Advised him to reach out to the doctor that originally prescribed it. Patient called and left message regarding wanting a prescription renewed return call to [phone] documented in this encounter [facility] 03-01-2022 History of Present illness Narrative ORAL [...] refill process. Yes Pt will fill through [facility]. Phone number provided to pt to call [...] Meghan Pichardo RN documented in this encounter [facility] 03-01-2022 History of Present illness Narrative Images from the original note were not included. PATIENT NAME: Hoang White CLINIC NO.: [id number] ATTENDING PHYSICIAN: Oscar Gonzalez MD DATE OF [...] 2. Severe TR ( ECHO 12/2021 at [facility]): - The left ventricle is normal in [...] 02/24/2022 1.69 1.00 - 4.00 k/uL Final Arthur% Date Value Ref Range Status 02/24/2022 6.9 % Final Abs Arthur Date Value Ref Range Status 02/24/2022 0.67 [...] do not hesitate to contact me at [phone]. Oscar Gonzalez MD Hematology/Medical Oncology [facility] I spent a total of 25 minutes on the date of the service which included preparing to see the patient, rytm-sk-tmye patient care, completing clinical documentation, obtaining and/or reviewing separately obtained history, performing a medically appropriate examination, counseling and educating the patient/family/caregiver, ordering medications, tests, or procedures and communicating with other HCPs (not separately reported). Medical Decision Making: Medical Decision Making Level: 1 - N/A CC: Ana Enriquez MD documented in this encounter [facility] 02-28-2022 History of Present illness Narrative HOANG WHITE [id number] 02/28/2022 [facility] Radiation Oncology Department SIMULATION NOTE DATE OF SIMULATION: 02/28/2022 THERAPIST: Rosina Dimas MACHINE: [employer] mCT DIAGNOSIS: Malignant neoplasm of [id number] AREA: RECTUM CONTRAST: IV 100cc omni via [...] nursing. Electronically Signed Tylor Davalos M.D. / TOYINT 23:49 AM documented in this encounter [facility] 02-28-2022 History of Present illness Narrative HOANG WHITE [id number] 02/28/2022 [facility] Department of Radiation Oncology Treatment Planning Note [...] and DVH. Electronically Signed Tylor Davalos M.D. 27:26 PM documented in this encounter [facility] 02-24-2022 Miscellaneous Notes Patient Is scheduled 03/01 for appointment with naya ed Hi, can you please let me [...] Meghan Pichardo RN documented in this encounter [facility] 02-22-2022 Miscellaneous Notes OK It doesn't allow me to sign documented in this encounter [facility] 02-18-2022 Miscellaneous Notes Ambulatory Pharmacy Prior Authorization Note Provider Intervention Required?: No- Pharmacy completed on your behalf. Drug: Capecitabine Cover My Meds Rubin: [id number] Determination: Approved Prior Authorization/Case #: [id number] Prior Authorization Expiration: 02/18/2023 Time to PA Submission in CMM: 15 min Time to PA Determination in CMM: Same day Additional Information: 500mg *MUST be filled @ [facility]. For questions relating to this submission, please contact [facility] at [phone] documented in this encounter [facility] 02-16-2022 History and physical note Images [...] year Neuro: No history of TIA's, stroke, WARP SPLITTER tumor, impaired sensorium, hemiplegia, paraplegia or quadraplegia. No neurological symptoms or problems. Respiratory: No history of current cough or dyspnea, or pneumonia in the past 6 weeks. No history of respiratory/pulmonary symptoms or problems. Cardiovascular: +severe TR with right atrial and ventricular dilation Negative for Recent SD, Angina, Arrhythmia, CAD, Chest Pain GI: See [...] 412 QTC Calculation (Bazett) 421 Calculated P Oak[place] 74 Calculated R [place] 121 Calculated T [place] 39 Impression NORMAL SINUS RHYTHM RIGHT AXIS DEVIATION LOW VOLTAGE QRS, CONSIDER PULMONARY DISEASE, PERICARDIAL EFFUSION, OR NORMAL VARIANT NONSPECIFIC INTRAVENTRICULAR CONDUCTION DELAY ABNORMAL ECG Confirmed by NORY HOLLEY MD ([id number]) on 01/20/2022 9:37:50 PM Recent Results (from the past 71493 hour(s)) ECHO Collection Time: 01/17/22 1:15 PM [...] TIME: 8:57 AM documented in this encounter [facility] 02-16-2022 Instructions Karime Lim PA-C - 02/16/2022 8:20 AM EDT PATIENT PREOPERATIVE INSTRUCTIONS Ana Enriquez MD has scheduled you for your procedure at this surgery center: [facility]: [phone] --[address] [address]. Please check in on the 1st floor [...] Advance Directive, please fax a copy to [phone] or email to for it to be [...] Karime Lim PA-C documented in this encounter [facility] 02-11-2022 History of Present illness Narrative Images from the original note were not included. Radiation Oncology - New Patient/Consult Note PATIENT NAME: Hoang White PATIENT Signed: Tylor Davalos MD I spent a total of 60 minutes on the date of the service which included preparing to see the patient, [id number] patient care and counseling and educating the patient/family/caregiver. This document has been created with the use of voice recognition technology. It may contain inaccuracies, misspellings, inaccurate syntax or inappropriate word context that are a result of the inadequacies/shortcomings of said technology/software. documented in this encounter [facility] 02-11-2022 Nurse Note Radiation Therapy - Patient Education Note PATIENT NAME: Hoang White PATIENT February 11, 2022 [facility] [place] FACILITY/LOCATION: [facility] READINESS TO LEARN Cognitive Ability: Alert and [...] need for social work, van service, and test pilot. Patient has had 30# weight loss over the last 7 months. I offered a nutritional consult and patient declined at this time but states he will think about it. Was approved? No Signed by: Fariba Mosley LPN documented in this encounter [facility] 02-10-2022 Miscellaneous Notes Called Jayce and informed him that our office will reach out and schedule an appointment to see Yolis Aragon NP for stoma education. Discussed his coivd kit and how to swab his nose before his procedure. He has his pre op instructions from clinic and has no questions or concerns at this time. documented in this encounter [facility] 02-07-2022 Miscellaneous Notes Called to update patient that he will be presented at the GI Tumor Board on and we will call after that with a final plan and he expressed understanding documented in this encounter [facility] 02-04-2022 Nurse Note Clinical questionnaires incomplete due to Nurse was Interrupted by provider during rooming process documented in this encounter [facility] 02-04-2022 History of Present illness Narrative Images from the original note were not included. PATIENT NAME: Hoang White [facility] NO.: [id number] ATTENDING PHYSICIAN: Oscar Gonzalez MD DATE OF SERVICE: February 04, [address] Ana Enriquez, here is an update on a follow up visit on male Hoang White at the clinic 02/04/2022 Diagnosis: 1. Upper rectal cancer, MRI staged T4a,N+,M0- Mod Diff Adenocarcinoma ( DIANNE) 2. Severe TR ( ECHO 12/2021 at [facility]): - The left ventricle is normal in [...] 02/04/2022 1.88 1.00 - 4.00 k/uL Final Arthur% Date Value Ref Range Status 02/04/2022 8.1 % Final Abs Arthur Date Value Ref Range Status 02/04/2022 0.66 [...] do not hesitate to contact me at [phone]. Oscar Gonzalez MD Hematology/Medical Oncology [facility]a spent a total of 30 minutes on the date of the service which included preparing to see the patient, [id number] patient care, completing clinical documentation, obtaining and/or reviewing separately obtained history, performing a medically appropriate examination, counseling and educating the patient/family/caregiver, ordering medications, tests, or procedures and communicating with other HCPs (not separately reported). Medical Decision Making CC: Ana Enriquez MD documented in this encounter [facility] 02-04-2022 Miscellaneous Notes Paperwork faxed to [employer] @ [phone]. Ava Lewis documented in this encounter [facility] 02-04-2022 Miscellaneous Notes Orders placed for tumor board. documented in this encounter [facility] 02-03-2022 Miscellaneous Notes Radiology Service Progress [...] TIME: 3:13 PM documented in this encounter [facility] 01-28-2022 Miscellaneous Notes Called and notified patient that his disability paperwork is ready to be picker/puller. Niki Peterson MA Short term disability paperwork completed and placed in folder to be signed. Pt will need to fill out their portion so he will need to picker/puller paperwork when signed. Ava Lewis documented in this encounter [facility] 01-18-2022 Miscellaneous Notes Message left for [...] and cardiology recs documented in this encounter [facility] Evaluation note Diagnosis Rectal mass Other symptoms involving digestive system Rectal mass Other symptoms involving digestive system [facility] Diagnosis Rectal cancer (HCC)- Primary Malignant neoplasm of rectum Rectal mass Other symptoms involving digestive system [facility] 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 Rectal mass Other symptoms involving digestive system [facility] Rectal cancer (HCC)- Primary [...] neoplasm of rectum [facility] Malignant neoplasm of rectum [...] and fatigue [facility] Diagnosis Malaise and fatigue Other malaise and fatigue [facility] Diagnosis Malignant neoplasm of rectum (HCC)- Primary Malignant neoplasm of rectum Lung nodules Other nonspecific abnormal finding of lung field [facility] Diagnosis Rectal cancer (HCC)- Primary Malignant neoplasm of rectum Malaise and fatigue Other malaise and fatigue [facility] Diagnosis Lung nodules Other nonspecific abnormal finding of lung field [facility] Diagnosis Rectal cancer (HCC)- Primary Malignant neoplasm of rectum [facility] Diagnosis Encounter for follow-up surveillance of rectal cancer- Primary Unspecified follow-up examination Malignant neoplasm of rectum (HCC) Malignant neoplasm of rectum Rectal cancer (HCC) Malignant neoplasm of rectum [facility] Diagnosis Pre-op evaluation- Primary Preoperative examination, unspecified History of intravenous drug abuse (HCC) Hypothyroidism unspecified Smoker Tobacco use disorder Severe tricuspid regurgitation Diseases of tricuspid valve History of endocarditis Personal history of other diseases of circulatory system Acute deep vein thrombosis (DVT) of proximal vein of lower extremity, unspecified laterality (HCC) Rectal cancer (HCC) Malignant neoplasm of rectum [facility] Diagnosis Malignant neoplasm of rectum (HCC)- Primary Malignant neoplasm of rectum [facility] Diagnosis Acute post-operative pain- Primary High output ileostomy (HCC) Other symptoms involving digestive system [facility] Diagnosis Rectal cancer (HCC)- Primary Malignant neoplasm of rectum Encounter for follow-up surveillance of rectal cancer Unspecified follow-up examination Acute post-operative pain Attention to ileostomy (HCC) Attention to ileostomy Attention to ileostomy (HCC) Attention to ileostomy [facility] Diagnosis Encounter for follow-up surveillance of rectal cancer Unspecified follow-up examination Acute post-operative pain Attention to ileostomy (HCC) Attention to ileostomy [facility] Diagnosis Preop examination- Primary Preoperative examination, [...] Attention to ileostomy [facility] Diagnosis Follow-up examination after colorectal surgery Follow-up examination, following other surgery Rectal cancer (HCC) Malignant neoplasm of rectum documented in this encounter [facility] for referral (narrative)* Outpatient Procedure (Routine) - Authorized Specialty Diagnoses / Procedures [facility] Diagnoses Follow-up examination after colorectal surgery Rectal cancer (HCC) Procedures SIGMOIDOSCOPY SIGMOIDOSCOPY FLX DX W/COLLJ SPEC BR/[place] [address] [place] [address] [facility] [address] [place] [address] Referral ID Status Reason Start Date Expiration Date Visits Requested Visits Authorized [id number] Authorized Auto-Generat ed Referral 05/25/2022 05/24/2023 1 1 T [facility] for referral (narrative)* Diagnostic Procedure Only (Routine) - Authorized Specialty Diagnoses / Procedures [facility] Referred To Contact XR IMAGING Diagnoses Encounter for follow-up surveillance of rectal cancer Acute post-operative pain Procedures XR COLON SINGLE CONTRAST RADIOLOGIC EXAM [place]ON [place] [address] [address] [id number] Xr Imaging Referral ID Status Reason Start Date Expiration Date Visits Requested Visits Authorized [id number] Authorized Auto-Generat ed Referral 01/17/2023 02/16/2024 1 1 T [facility] for referral (narrative)* Diagnostic Procedure Only (Routine) - Closed Specialty Diagnoses / Procedures [facility] Referred To Contact XR IMAGING Diagnoses Encounter for follow-up surveillance of rectal cancer Acute post-operative pain Procedures XR COLON SINGLE CONTRAST RADIOLOGIC EXAM [place]ON [place] [address] [place] [address] Xr Imaging Referral ID Status Reason Start Date Expiration Date V isits Requested Visits Authorized [id number] Closed Auto-Generate d Referral 01/17/2023 02/16/2024 1 1 [facility] for referral (narrative)* Outpatient Procedure (Routine) - Closed Specialty Diagnoses / Procedures Referred By [facility] Referred To [facility] Diagnoses Follow-up examination after colorectal surgery Rectal cancer (HCC) Procedures SIGMOIDOSCOPY SIGMOIDOSCOPY FLX DX W/COLLJ SPEC BR/[place] [address] [place] [address] [facility] [id number] [place] [address] Referral ID Status Reason Start Date Expiration Date V isits Requested Visits Authorized [id number] Closed Auto-Generate d Referral 05/25/2022 05/24/2023 1 1 [facility] for visit Narrative* Diagnostic Procedure Only (Routine) - Closed Specialty Diagnoses / Procedures Referred By [facility] Referred To Contact XR IMAGING Diagnoses Encounter for follow-up surveillance of rectal cancer Acute post-operative pain Procedures XR COLON SINGLE CONTRAST RADIOLOGIC EXAM [place]ON [place] [address] [place] [id number] Xr Imaging Referral ID Status Reason Start Date Expiration Date V isits Requested Visits Authorized [id number] Closed Auto-Generate d Referral 01/17/2023 02/16/2024 1 1 [facility] for visit Narrative* Outpatient Procedure (Routine) - Closed Specialty Diagnoses / Procedures Referred By [facility] Referred To [facility] Diagnoses Follow-up examination after colorectal surgery Rectal cancer (HCC) Procedures SIGMOIDOSCOPY SIGMOIDOSCOPY FLX DX W/COLLJ SPE[place] BR/[place] [address] [address] [phone] [facility] [address] [place] [address] Referral ID Status Reason Start Date Expiration Date V isits Requested Visits Authorized [id number] Closed Auto-Generate d Referral 05/25/2022 05/24/2023 1 1 [facility] Summary Purpose Family History No Family History Records FoundNo Family History Records FoundNo Family History Records FoundNo Family History Records FoundNo Family History Records FoundNo Family History Records FoundNo Family History Records Found Advance Directives No Advanced Directives Records FoundDocuments on File Type Date Recorded Patient Relocation Services Specialist Expl anation Advance Directive(s) 02/21/2022 8:46 AM Documents on File Type Date Recorded Patient Relocation Services Specialist Expl anation Advance Directive(s) 02/21/2022 8:46 AM Reason for Referral Specialty Diagnoses / Procedures Referred By [facility] Referred To Contact MR IMAGING Diagnoses Rectal mass Procedures MRI RECTUM WO/W IVCON MRI PELVIS W/O & W/[place] [address] [place] [address] Mr Imaging Referral ID Status Reason Start Date Expiration Date V isits Requested Visits Authorized [id number] Closed Auto-Generate d Referral 01/24/2022 02/22/2022 1 1 Specialty Diagnoses / Procedures Referred By [facility] t Referred To Contact MR IMAGING Diagnoses Malignant neoplasm of rectum (HCC) Procedures MRI RECTUM WO/W IVCON MRI PELVIS W/O & W/CONTRAST MATERIAL Oscar Gonzalez MD [address] [place] [address] Mr Imaging Referral ID Status Reason Start Date Expiration Date Visits Requested Visits Authorized [id number] Pending Review Auto-Generat ed Referral 05/17/2022 05/12/2023 1 1 Referral ID Status Reason Start Date Expiration Date V isits Requested Visits Authorized [id number] Closed Auto-Generate d Referral 04/18/2022 05/17/2022 1 1 Specialty Diagnoses / Procedures Referred By [facility] t Referred To Contact CT IMAGING Diagnoses Lung nodules Procedures CT CHEST W IVCON DIAGNOSTIC COMPUTED TOMOGRAPHY THORAX W/CONTRAST Temi Dean PA-C [address] [place] [address] [address] [address] Imaging Referral ID Status Reason Start Date Expiration Date Visits Requested Visits Authorized [id number] Pending Review Auto-Generat ed Referral 2 09/25/2023 1 1 Specialty Diagnoses / Procedures Referred By Cont[facility] t Referred To Contact MR IMAGING Diagnoses Malignant neoplasm of rectum (HCC) Procedures MRI RECTUM WO/W IVCON MRI PELVIS W/O & W/CONTRAST MATERIAL Temi Dean PA-C [address] [place] [address] [place] [address] Mr Imaging Referral ID Status Reason Start Date Expiration Date Visits Requested Visits Authorized [id number] Pending Review Auto-Generat ed Referral 2 09/25/2023 1 1 Referral ID Status Reason Start Date Expiration Date V isits Requested Visits Authorized [id number] Closed Auto-Generate d Referral 08/26/2022 10/01/2022 1 1 Specialty Diagnoses / Procedures Referred By Cont[facility] t Referred To Contact CT IMAGING Diagnoses Malignant neoplasm of rectum (HCC) Procedures CT ABD/PEL W IVCON CT ABD & PELVIS W/[place] [address] [place] [address] Ct Imaging Referral ID Status Reason Start Date Expiration Date Visits Requested Visits Authorized [id number] Authorized Auto-Generat ed Referral 10/04/2022 11/03/2022 1 [...] before and after administration. New Bag/Syringe/Ame le 07/15/2022 10:56 AM EDT 228.8 mg palonosetron [...] section and content) DATE CREATED AUTHOR 01/17/2022 [facility] DATE CREATED AUTHOR AUTHOR'S ORGANIZ ATION 08/22/2022 [facility] DATE CREATED AUTHOR AUTHOR'S ORGANIZ ATION 10/20/2022 [facility] DATE CREATED AUTHOR AUTHOR'S ORGANIZ ATION 02/03/2023 [facility] DATE CREATED AUTHOR AUTHOR'S ORGANIZ ATION 03/03/2023 [facility] DATE CREATED AUTHOR AUTHOR'S ORGANIZ ATION 06/03/2023 [facility] DATE CREATED AUTHOR AUTHOR'S ORGANIZ ATION 03/05/2024 [facility] EPIC Source Comments (unrecognize d section and content) In the event this informatio n is protected by the Federal Confidentiality of Alcohol and Drug Abuse Patient Records regulations: The Federal rules restrict any use of the information to criminally investigate or prosecute any alcohol or drug abuse patient.[facility] the event this information is protected by the Federal Confidentiality of Alcohol and Drug Abuse Patient Records regulations: The Federal rules restrict any use of the information to criminally investigate or prosecute any alcohol or drug abuse patient.[facility] the event this information is protected by the Federal Confidentiality of Alcohol and Drug Abuse Patient Records regulations: The Federal rules restrict any use of the information to criminally investigate or prosecute any alcohol or drug abuse patient.[facility] the event this information is protected by the Federal Confidentiality of Alcohol and Drug Abuse Patient Records regulations: The Federal rules restrict any use of the information to criminally investigate or prosecute any alcohol or drug abuse patient.[facility] the event this information is protected by the Federal Confidentiality of Alcohol and Drug Abuse Patient Records regulations: The Federal rules restrict any use of the information to criminally investigate or prosecute any alcohol or drug abuse patient.[facility] the event this information is protected by the Federal Confidentiality of Alcohol and Drug Abuse Patient Records regulations: The Federal rules restrict any use of the information to criminally investigate or prosecute any alcohol or drug abuse patient.[facility] the event this information is protected by the Federal Confidentiality of Alcohol and Drug Abuse Patient Records regulations: The Federal rules restrict any use of the information to criminally investigate or prosecute any alcohol or drug abuse patient.[facility] the event this information is protected by the Federal Confidentiality of Alcohol and Drug Abuse Patient Records regulations: The Federal rules restrict any use of the information to criminally investigate or prosecute any alcohol or drug abuse patient.[facility] Center[facility] the event this information is protected by the Federal Confidentiality of Alcohol and Drug Abuse Patient Records regulations: The Federal rules restrict any use of the information to criminally investigate or prosecute any alcohol or drug abuse patient.[facility] the event this information is protected by the Federal Confidentiality of Alcohol and Drug Abuse Patient Records regulations: The Federal rules restrict any use of the information to criminally investigate or prosecute any alcohol or drug abuse patient.[facility] the event this information is protected by the Federal Confidentiality of Alcohol and Drug Abuse Patient Records regulations: The Federal rules restrict any use of the information to criminally investigate or prosecute any alcohol or drug abuse patient.[facility] the event this information is protected by the Federal Confidentiality of Alcohol and Drug Abuse Patient Records regulations: The Federal rules restrict any use of the information to criminally investigate or prosecute any alcohol or drug abuse patient.[facility] the event this information is protected by the Federal Confidentiality of Alcohol and Drug Abuse Patient Records regulations: The Federal rules restrict any use of the information to criminally investigate or prosecute any alcohol or drug abuse patient.[facility] the event this information is protected by the Federal Confidentiality of Alcohol and Drug Abuse Patient Records regulations: The Federal rules restrict any use of the information to criminally investigate or prosecute any alcohol or drug abuse patient.[facility] the event this information is protected by the Federal Confidentiality of Alcohol and Drug Abuse Patient Records regulations: The Federal rules restrict any use of the information to criminally investigate or prosecute any alcohol or drug abuse patient.[facility] Center[facility] the event this information is protected by the Federal Confidentiality of Alcohol and Drug Abuse Patient Records regulations: The Federal rules restrict any use of the information to criminally investigate or prosecute any alcohol or drug abuse patient.[facility] the event this information is protected by the Federal Confidentiality of Alcohol and Drug Abuse Patient Records regulations: The Federal rules restrict any use of the information to criminally investigate or prosecute any alcohol or drug abuse patient.[facility] CenterIn the event this information is protected by the Federal Confidentiality of Alcohol and Drug Abuse Patient Records regulations: The Federal rules restrict any use of the information to criminally investigate or prosecute any alcohol or drug abuse patient.[facility] CenterIn the event this information is protected by the Federal Confidentiality of Alcohol and Drug Abuse Patient Records regulations: The Federal rules restrict any use of the information to criminally investigate or prosecute any alcohol or drug abuse patient.[facility] CenterIn the event this information is protected by the Federal Confidentiality of Alcohol and Drug Abuse Patient Records regulations: The Federal rules restrict any use of the information to criminally investigate or prosecute any alcohol or drug abuse patient.[facility] CenterIn the event this information is protected by the Federal Confidentiality of Alcohol and Drug Abuse Patient Records regulations: The Federal rules restrict any use of the information to criminally investigate or prosecute any alcohol or drug abuse patient.[facility] CenterIn the event this information is protected by the Federal Confidentiality of Alcohol and Drug Abuse Patient Records regulations: The Federal rules restrict any use of the information to criminally investigate or prosecute any alcohol or drug abuse patient.[facility] CenterIn the event this information is protected by the Federal Confidentiality of Alcohol and Drug Abuse Patient Records regulations: The Federal rules restrict any use of the information to criminally investigate or prosecute any alcohol or drug abuse patient.[facility] CenterIn the event this information is protected by the Federal Confidentiality of Alcohol and Drug Abuse Patient Records regulations: The Federal rules restrict any use of the information to criminally investigate or prosecute any alcohol or drug abuse patient.[facility] CenterIn the event this information is protected by the Federal Confidentiality of Alcohol and Drug Abuse Patient Records regulations: The Federal rules restrict any use of the information to criminally investigate or prosecute any alcohol or drug abuse patient.[facility] CenterIn the event this information is protected by the Federal Confidentiality of Alcohol and Drug Abuse Patient Records regulations: The Federal rules restrict any use of the information to criminally investigate or prosecute any alcohol or drug abuse patient.[facility] CenterIn the event this information is protected by the Federal Confidentiality of Alcohol and Drug Abuse Patient Records regulations: The Federal rules restrict any use of the information to criminally investigate or prosecute any alcohol or drug abuse patient.[facility] CenterIn the event this information is protected by the Federal Confidentiality of Alcohol and Drug Abuse Patient Records regulations: The Federal rules restrict any use of the information to criminally investigate or prosecute any alcohol or drug abuse patient.[facility] CenterIn the event this information is protected by the Federal Confidentiality of Alcohol and Drug Abuse Patient Records regulations: The Federal rules restrict any use of the information to criminally investigate or prosecute any alcohol or drug abuse patient.[facility] CenterIn the event this information is protected by the Federal Confidentiality of Alcohol and Drug Abuse Patient Records regulations: The Federal rules restrict any use of the information to criminally investigate or prosecute any alcohol or drug abuse patient.[facility] CenterIn the event this information is protected by the Federal Confidentiality of Alcohol and Drug Abuse Patient Records regulations: The Federal rules restrict any use of the information to criminally investigate or prosecute any alcohol or drug abuse patient.[facility] CenterIn the event this information is protected by the Federal Confidentiality of Alcohol and Drug Abuse Patient Records regulations: The Federal rules restrict any use of the information to criminally investigate or prosecute any alcohol or drug abuse patient.[facility] CenterIn the event this information is protected by the Federal Confidentiality of Alcohol and Drug Abuse Patient Records regulations: The Federal rules restrict any use of the information to criminally investigate or prosecute any alcohol or drug abuse patient.[facility] CenterIn the event this information is protected by the Federal Confidentiality of Alcohol and Drug Abuse Patient Records regulations: The Federal rules restrict any use of the information to criminally investigate or prosecute any alcohol or drug abuse patient.[facility] CenterIn the event this information is protected by the Federal Confidentiality of Alcohol and Drug Abuse Patient Records regulations: The Federal rules restrict any use of the information to criminally investigate or prosecute any alcohol or drug abuse patient.[facility] CenterIn the event this information is protected by the Federal Confidentiality of Alcohol and Drug Abuse Patient Records regulations: The Federal rules restrict any use of the information to criminally investigate or prosecute any alcohol or drug abuse patient.[facility] CenterIn the event this information is protected by the Federal Confidentiality of Alcohol and Drug Abuse Patient Records regulations: The Federal rules restrict any use of the information to criminally investigate or prosecute any alcohol or drug abuse patient.[facility] CenterIn the event this information is protected by the Federal Confidentiality of Alcohol and Drug Abuse Patient Records regulations: The Federal rules restrict any use of the information to criminally investigate or prosecute any alcohol or drug abuse patient.[facility] CenterIn the event this information is protected by the Federal Confidentiality of Alcohol and Drug Abuse Patient Records regulations: The Federal rules restrict any use of the information to criminally investigate or prosecute any alcohol or drug abuse patient.[facility] CenterIn the event this information is protected by the Federal Confidentiality of Alcohol and Drug Abuse Patient Records regulations: The Federal rules restrict any use of the information to criminally investigate or prosecute any alcohol or drug abuse patient.[facility] CenterIn the event this information is protected by the Federal Confidentiality of Alcohol and Drug Abuse Patient Records regulations: The Federal rules restrict any use of the information to criminally investigate or prosecute any alcohol or drug abuse patient.[facility] CenterIn the event this information is protected by the Federal Confidentiality of Alcohol and Drug Abuse Patient Records regulations: The Federal rules restrict any use of the information to criminally investigate or prosecute any alcohol or drug abuse patient.[facility] CenterIn the event this information is protected by the Federal Confidentiality of Alcohol and Drug Abuse Patient Records regulations: The Federal rules restrict any use of the information to criminally investigate or prosecute any alcohol or drug abuse patient.[facility] CenterIn the event this information is protected by the Federal Confidentiality of Alcohol and Drug Abuse Patient Records regulations: The Federal rules restrict any use of the information to criminally investigate or prosecute any alcohol or drug abuse patient.[facility] CenterIn the event this information is protected by the Federal Confidentiality of Alcohol and Drug Abuse Patient Records regulations: The Federal rules restrict any use of the information to criminally investigate or prosecute any alcohol or drug abuse patient.[facility] CenterIn the event this information is protected by the Federal Confidentiality of Alcohol and Drug Abuse Patient Records regulations: The Federal rules restrict any use of the information to criminally investigate or prosecute any alcohol or drug abuse patient.[facility] CenterIn the event this information is protected by the Federal Confidentiality of Alcohol and Drug Abuse Patient Records regulations: The Federal rules restrict any use of the information to criminally investigate or prosecute any alcohol or drug abuse patient.[facility] CenterIn the event this information is protected by the Federal Confidentiality of Alcohol and Drug Abuse Patient Records regulations: The Federal rules restrict any use of the information to criminally investigate or prosecute any alcohol or drug abuse patient.[facility] CenterIn the event this information is protected by the Federal Confidentiality of Alcohol and Drug Abuse Patient Records regulations: The Federal rules restrict any use of the information to criminally investigate or prosecute any alcohol or drug abuse patient.[facility] CenterIn the event this information is protected by the Federal Confidentiality of Alcohol and Drug Abuse Patient Records regulations: The Federal rules restrict any use of the information to criminally investigate or prosecute any alcohol or drug abuse patient.[facility] CenterIn the event this information is protected by the Federal Confidentiality of Alcohol and Drug Abuse Patient Records regulations: The Federal rules restrict any use of the information to criminally investigate or prosecute any alcohol or drug abuse patient.[facility] CenterIn the event this information is protected by the Federal Confidentiality of Alcohol and Drug Abuse Patient Records regulations: The Federal rules restrict any use of the information to criminally investigate or prosecute any alcohol or drug abuse patient.[facility] CenterIn the event this information is protected by the Federal Confidentiality of Alcohol and Drug Abuse Patient Records regulations: The Federal rules restrict any use of the information to criminally investigate or prosecute any alcohol or drug abuse patient.[facility] CenterIn the event this information is protected by the Federal Confidentiality of Alcohol and Drug Abuse Patient Records regulations: The Federal rules restrict any use of the information to criminally investigate or prosecute any alcohol or drug abuse patient.[facility] CenterIn the event this information is protected by the Federal Confidentiality of Alcohol and Drug Abuse Patient Records regulations: The Federal rules restrict any use of the information to criminally investigate or prosecute any alcohol or drug abuse patient.[facility] CenterIn the event this information is protected by the Federal Confidentiality of Alcohol and Drug Abuse Patient Records regulations: The Federal rules restrict any use of the information to criminally investigate or prosecute any alcohol or drug abuse patient.[facility] CenterIn the event this information is protected by the Federal Confidentiality of Alcohol and Drug Abuse Patient Records regulations: The Federal rules restrict any use of the information to criminally investigate or prosecute any alcohol or drug abuse patient.[facility] CenterIn the event this information is protected by the Federal Confidentiality of Alcohol and Drug Abuse Patient Records regulations: The Federal rules restrict any use of the information to criminally investigate or prosecute any alcohol or drug abuse patient.[facility] CenterIn the event this information is protected by the Federal Confidentiality of Alcohol and Drug Abuse Patient Records regulations: The Federal rules restrict any use of the information to criminally investigate or prosecute any alcohol or drug abuse patient.[facility] CenterIn the event this information is protected by the Federal Confidentiality of Alcohol and Drug Abuse Patient Records regulations: The Federal rules restrict any use of the information to criminally investigate or prosecute any alcohol or drug abuse patient.[facility] CenterIn the event this information is protected by the Federal Confidentiality of Alcohol and Drug Abuse Patient Records regulations: The Federal rules restrict any use of the information to criminally investigate or prosecute any alcohol or drug abuse patient.[facility] CenterIn the event this information is protected by the Federal Confidentiality of Alcohol and Drug Abuse Patient Records regulations: The Federal rules restrict any use of the information to criminally investigate or prosecute any alcohol or drug abuse patient.[facility] CenterIn the event this information is protected by the Federal Confidentiality of Alcohol and Drug Abuse Patient Records regulations: The Federal rules restrict any use of the information to criminally investigate or prosecute any alcohol or drug abuse patient.[facility] CenterIn the event this information is protected by the Federal Confidentiality of Alcohol and Drug Abuse Patient Records regulations: The Federal rules restrict any use of the information to criminally investigate or prosecute any alcohol or drug abuse patient.[facility] CenterIn the event this information is protected by the Federal Confidentiality of Alcohol and Drug Abuse Patient Records regulations: The Federal rules restrict any use of the information to criminally investigate or prosecute any alcohol or drug abuse patient.[facility] CenterIn the event this information is protected by the Federal Confidentiality of Alcohol and Drug Abuse Patient Records regulations: The Federal rules restrict any use of the information to criminally investigate or prosecute any alcohol or drug abuse patient.[facility] CenterIn the event this information is protected by the Federal Confidentiality of Alcohol and Drug Abuse Patient Records regulations: The Federal rules restrict any use of the information to criminally investigate or prosecute any alcohol or drug abuse patient.[facility] CenterIn the event this information is protected by the Federal Confidentiality of Alcohol and Drug Abuse Patient Records regulations: The Federal rules restrict any use of the information to criminally investigate or prosecute any alcohol or drug abuse patient.[facility] CenterIn the event this information is protected by the Federal Confidentiality of Alcohol and Drug Abuse Patient Records regulations: The Federal rules restrict any use of the information to criminally investigate or prosecute any alcohol or drug abuse patient.[facility] CenterIn the event this information is protected by the Federal Confidentiality of Alcohol and Drug Abuse Patient Records regulations: The Federal rules restrict any use of the information to criminally investigate or prosecute any alcohol or drug abuse patient.[facility] CenterIn the event this information is protected by the Federal Confidentiality of Alcohol and Drug Abuse Patient Records regulations: The Federal rules restrict any use of the information to criminally investigate or prosecute any alcohol or drug abuse patient.[facility] CenterIn the event this information is protected by the Federal Confidentiality of Alcohol and Drug Abuse Patient Records regulations: The Federal rules restrict any use of the information to criminally investigate or prosecute any alcohol or drug abuse patient.[facility] CenterIn the event this information is protected by the Federal Confidentiality of Alcohol and Drug Abuse Patient Records regulations: The Federal rules restrict any use of the information to criminally investigate or prosecute any alcohol or drug abuse patient.[facility] CenterIn the event this information is protected by the Federal Confidentiality of Alcohol and Drug Abuse Patient Records regulations: The Federal rules restrict any use of the information to criminally investigate or prosecute any alcohol or drug abuse patient.[facility] CenterIn the event this information is protected by the Federal Confidentiality of Alcohol and Drug Abuse Patient Records regulations: The Federal rules restrict any use of the information to criminally investigate or prosecute any alcohol or drug abuse patient.[facility] CenterIn the event this information is protected by the Federal Confidentiality of Alcohol and Drug Abuse Patient Records regulations: The Federal rules restrict any use of the information to criminally investigate or prosecute any alcohol or drug abuse patient.[facility] CenterIn the event this information is protected by the Federal Confidentiality of Alcohol and Drug Abuse Patient Records regulations: The Federal rules restrict any use of the information to criminally investigate or prosecute any alcohol or drug abuse patient.[facility] CenterIn the event this information is protected by the Federal Confidentiality of Alcohol and Drug Abuse Patient Records regulations: The Federal rules restrict any use of the information to criminally investigate or prosecute any alcohol or drug abuse patient.[facility] CenterIn the event this information is protected by the Federal Confidentiality of Alcohol and Drug Abuse Patient Records regulations: The Federal rules restrict any use of the information to criminally investigate or prosecute any alcohol or drug abuse patient.[facility] CenterIn the event this information is protected by the Federal Confidentiality of Alcohol and Drug Abuse Patient Records regulations: The Federal rules restrict any use of the information to criminally investigate or prosecute any alcohol or drug abuse patient.[facility] CenterIn the event this information is protected by the Federal Confidentiality of Alcohol and Drug Abuse Patient Records regulations: The Federal rules restrict any use of the information to criminally investigate or prosecute any alcohol or drug abuse patient.[facility] CenterIn the event this information is protected by the Federal Confidentiality of Alcohol and Drug Abuse Patient Records regulations: The Federal rules restrict any use of the information to criminally investigate or prosecute any alcohol or drug abuse patient.[facility] CenterIn the event this information is protected by the Federal Confidentiality of Alcohol and Drug Abuse Patient Records regulations: The Federal rules restrict any use of the information to criminally investigate or prosecute any alcohol or drug abuse patient.[facility] CenterIn the event this information is protected by the Federal Confidentiality of Alcohol and Drug Abuse Patient Records regulations: The Federal rules restrict any use of the information to criminally investigate or prosecute any alcohol or drug abuse patient.[facility] CenterIn the event this information is protected by the Federal Confidentiality of Alcohol and Drug Abuse Patient Records regulations: The Federal rules restrict any use of the information to criminally investigate or prosecute any alcohol or drug abuse patient.[facility] CenterIn the event this information is protected by the Federal Confidentiality of Alcohol and Drug Abuse Patient Records regulations: The Federal rules restrict any use of the information to criminally investigate or prosecute any alcohol or drug abuse patient.[facility] CenterIn the event this information is protected by the Federal Confidentiality of Alcohol and Drug Abuse Patient Records regulations: The Federal rules restrict any use of the information to criminally investigate or prosecute any alcohol or drug abuse patient.[facility] CenterIn the event this information is protected by the Federal Confidentiality of Alcohol and Drug Abuse Patient Records regulations: The Federal rules restrict any use of the information to criminally investigate or prosecute any alcohol or drug abuse patient.[facility] CenterIn the event this information is protected by the Federal Confidentiality of Alcohol and Drug Abuse Patient Records regulations: The Federal rules restrict any use of the information to criminally investigate or prosecute any alcohol or drug abuse patient.[facility] CenterIn the event this information is protected by the Federal Confidentiality of Alcohol and Drug Abuse Patient Records regulations: The Federal rules restrict any use of the information to criminally investigate or prosecute any alcohol or drug abuse patient.[facility] CenterIn the event this information is protected by the Federal Confidentiality of Alcohol and Drug Abuse Patient Records regulations: The Federal rules restrict any use of the information to criminally investigate or prosecute any alcohol or drug abuse patient.[facility] CenterIn the event this information is protected by the Federal Confidentiality of Alcohol and Drug Abuse Patient Records regulations: The Federal rules restrict any use of the information to criminally investigate or prosecute any alcohol or drug abuse patient.[facility] CenterIn the event this information is protected by the Federal Confidentiality of Alcohol and Drug Abuse Patient Records regulations: The Federal rules restrict any use of the information to criminally investigate or prosecute any alcohol or drug abuse patient.[facility] CenterIn the event this information is protected by the Federal Confidentiality of Alcohol and Drug Abuse Patient Records regulations: The Federal rules restrict any use of the information to criminally investigate or prosecute any alcohol or drug abuse patient.[facility] CenterIn the event this information is protected by the Federal Confidentiality of Alcohol and Drug Abuse Patient Records regulations: The Federal rules restrict any use of the information to criminally investigate or prosecute any alcohol or drug abuse patient.[facility] CenterIn the event this information is protected by the Federal Confidentiality of Alcohol and Drug Abuse Patient Records regulations: The Federal rules restrict any use of the information to criminally investigate or prosecute any alcohol or drug abuse patient.[facility] CenterIn the event this information is protected by the Federal Confidentiality of Alcohol and Drug Abuse Patient Records regulations: The Federal rules restrict any use of the information to criminally investigate or prosecute any alcohol or drug abuse patient.[facility] CenterIn the event this information is protected by the Federal Confidentiality of Alcohol and Drug Abuse Patient Records regulations: The Federal rules restrict any use of the information to criminally investigate or prosecute any alcohol or drug abuse patient.[facility] CenterIn the event this information is protected by the Federal Confidentiality of Alcohol and Drug Abuse Patient Records regulations: The Federal rules restrict any use of the information to criminally investigate or prosecute any alcohol or drug abuse patient.[facility] CenterIn the event this information is protected by the Federal Confidentiality of Alcohol and Drug Abuse Patient Records regulations: The Federal rules restrict any use of the information to criminally investigate or prosecute any alcohol or drug abuse patient.[facility] CenterIn the event this information is protected by the Federal Confidentiality of Alcohol and Drug Abuse Patient Records regulations: The Federal rules restrict any use of the information to criminally investigate or prosecute any alcohol or drug abuse patient.[facility] Reason for Visit (unrecogniz ed section and content) Reason Comments Results Specialty Diagnoses / Procedures Referred By Contac t Referred To Contact MR IMAGING Diagnoses Rectal mass Procedures MRI RECTUM WO/W IVCON MRI PELVIS W/O & W/[place] [address] [place] [address] Mr Imaging Referral ID Status Reason Start Date Expiration Date V isits Requested Visits Authorized [id number] Closed Auto-Generate d Referral 01/24/2022 02/22/2022 1 1 Reason Comments Dietitian Teaching - Other Reason Comments FMLA Paperwork Reason [...] Rectosigmoid cancer (HCC) Procedures RAD/ONC CONSULT OFFICE/OUTPATIENT [facility] HIGH MDM 60-74 MINUTES Oscar Gonzalez MD [address] [place] [address] Referral ID Status Reason Start Date Expiration Date V isits Requested Visits Authorized [id number] Closed PCP Requested Referral 02/11/2022 02/10/2023 1 [...] Letter Specialty Diagnoses / Procedures Referred By Zakac t Referred To Contact MR IMAGING Diagnoses Malignant neoplasm of rectum (HCC) Procedures MRI RECTUM WO/W IVCON MRI PELVIS W/O & W/CONTRAST MATERIAL Oscar Gonzalez MD [address] [place] [address] Mr Imaging Referral ID Status Reason Start Date Expiration Date V isits Requested Visits Authorized [id number] Closed Auto-Generate d Referral 04/18/2022 05/17/2022 1 [...] Procedures PALONOSETRON HCL OXALIPLATIN Oscar Gonzalez MD [address] [place] [address] [address] [place] [address] Referral ID Status Reason Start Date Expiration Date V isits Requested Visits Authorized [id number] Authorized 05/24/2022 11/09/2022 8 8 Reason Comments Care Coordination Medication update Reason Onset Date Comments Refill Request 07/15/2022 Reason Comments Chemotherapy Treatment Specialty Diagnoses / Procedures Referred By Contac Referred To Contact Diagnoses Rectal cancer (HCC) Procedures PALONOSETRON HCL OXALIPLATIN Oscar Gonzalez MD [address] [place] [id number] [address] [place] [address] Reason Comments Care Coordination Clinical update Reason Comments B-12 Injection Reason Onset Date Comments Research Follow Up 08/25/2022 Reason Comments Rectal Cancer OTV 3 weeks Reason Onset Date Comments Research Follow Up 08/26/2022 Reason Onset Date Comments Refill Request 08/26/2022 Reason Onset Date Comments Refill Request 09/05/2022 Reason Comments APPOINTMENT INSTRUCTIONS MRI- 09/26/2022 @ 200PMAppointment reminder call- spoke with Tiffine- gave directions to the office- states patient has another appointment before ours and will be here after Specialty Diagnoses / Procedures Referred By Kavon t Referred To Contact CT IMAGING Diagnoses Lung nodules Procedures CT CHEST W IVCON DIAGNOSTIC COMPUTED TOMOGRAPHY THORAX W/CONTRAST Temi Dean PA-C [address] [place] [address] [place] [address] Ct Imaging Referral ID Status Reason Start Date Expiration Date V isits Requested Visits Authorized [id number] Closed Auto-Generate d Referral 08/26/2022 10/01/2022 1 1 Reason Comments Care Coordination MRI results Reason Comments Follow Up Reason Comments Anesthesia Consult Patient not schedule d PACC Reason Comments Anesthesia Consult Reason Comments Dietitian Teaching - Other Tumor board Reason Comments Care Coordination question Reason Comments Follow Up Established Patient Reason Comments Care Coordination Irritation around st sameera Reason Comments [facility] Op [facility] cancer. 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 Reason Comments Refill Request Reason Comments Follow Up All clear Reason Onset Date Comments Research Follow Up 02/28/2023 Reason Onset Date Comments Research Follow Up 03/02/2023 Care Teams (unrecognized sec tion and content) [employer] Relationship Specialty Start Date End Date Meghan Pichardo RN [address] [place] [address] [place] [address] Specialty Dietitian Teaching Hematology/Oncology 03/01/22 Oscar Gonzalez MD [address] [place] [address] Physician Hematology/Oncology 03/01/22 Temi Dean PA-C [address] [place] [address] [place] [address] Physician Review Appraiser Hematology/Oncology 03/01/22 [employer] Relationship Specialty Start Date End Date Meghan Pichardo RN [address] [facility] [place] [address] Specialty Dietitian Teaching Hematology/Oncology 03/01/22 Oscar Gonzalez MD [address] [place] [address] Physician Hematology/Oncology 03/01/22 Temi Dean PA-C [address] [facility] [place] [address] Physician Review Appraiser Hematology/Oncology 03/01/22 [employer] Relationship Specialty Start Date End Date Meghan Pichardo RN [address] [facility] [place] [address] Specialty Dietitian Teaching Hematology/Oncology 03/01/22 Oscar Gonzalez MD [address] [facility] [place] [address] Physician Hematology/Oncology 03/01/22 Temi Dean PA-C [address] [facility] [place] [address] Physician Review Appraiser Hematology/Oncology 03/01/22 [employer] Relationship Specialty Start Date End Date Meghan Pichardo RN [address] [facility] [place] [address] Specialty Dietitian Teaching Hematology/Oncology 03/01/22 Oscar Gonzalez MD [address] [place] [address] Physician Hematology/Oncology 03/01/22 Temi Dean PA-C [address] [facility] [place] [address] Physician Review Appraiser Hematology/Oncology 03/01/22 [employer] Relationship Specialty Start Date End Date Meghan Pichardo RN [address] [facility] [place] [address] Specialty Dietitian Teaching Hematology/Oncology 03/01/22 Oscar Gonzalez MD [address] [facility] [place] [address] Physician Hematology/Oncology 03/01/22 Temi Dean PA-C [address] [facility] [place] [address] Physician Review Appraiser Hematology/Oncology 03/01/22 [employer] Relationship Specialty Start Date End Date Meghan Pichardo RN [address] [facility] [place] [address] Specialty Dietitian Teaching Hematology/Oncology 03/01/22 Oscar Gonzalez MD [address] [place] [address] Physician Hematology/Oncology 03/01/22 Temi Dean, PA-C [address] [facility] [place] [address] Physician Review Appraiser Hematology/Oncology 03/01/22 [employer] Relationship Specialty Start Date End Date Meghan Pichardo RN [address] [facility] [place] [address] Specialty Dietitian Teaching Hematology/Oncology 03/01/22 Oscar Gonzalez MD [address] [facility] [place] [address] Physician Hematology/Oncology 03/01/22 Temi Dean, PA-C [address] [facility] [place] [address] Physician Review Appraiser Hematology/Oncology 03/01/22 [employer] Relationship Specialty Start Date End Date Meghan Pichardo RN [address] [facility] [place] [address] Specialty Dietitian Teaching Hematology/Oncology 03/01/22 Oscar Gonzalez MD [address] [facility] [place] [address] Physician Hematology/Oncology 03/01/22 Temi Dean, PA-C [address] [facility] [place] [address] Physician Review Appraiser Hematology/Oncology 03/01/22 [employer] Relationship Specialty Start Date End Date Meghan Pichardo RN [address] [facility] [place] [address] Specialty Dietitian Teaching Hematology/Oncology 03/01/22 Oscar Gonzalez MD [address] [facility] [place] [address] Physician Hematology/Oncology 03/01/22 Temi Dean PA-C [address] [facility] [place] [address] Physician Review Appraiser Hematology/Oncology 03/01/22 [employer] Relationship Specialty Start Date End Date Meghan Pichardo RN [address] [facility] [place] [address] Specialty Dietitian Teaching Hematology/Oncology 03/01/22 Oscar Gonzalez MD [address] [place] [address] Physician Hematology/Oncology 03/01/22 Temi Dean, SUJATAC [address] [facility] [place] [address] Physician Review Appraiser Hematology/Oncology 03/01/22 [employer] Relationship Specialty Start Date End Date Meghan Pichardo RN [address] [facility] [place] [address] Specialty Dietitian Teaching Hematology/Oncology 03/01/22 Oscar Gonzalez MD [address] [facility] [place] [address] Physician Hematology/Oncology 03/01/22 Temi Dean, PAChristopherC [address] [facility] [place] [address] Physician Review Appraiser Hematology/Oncology 03/01/22 [employer] Relationship Specialty Start Date End Date Meghan Pichardo RN [address] [facility] [place] [address] Specialty Dietitian Teaching Hematology/Oncology 03/01/22 Oscar Gonzalez MD [address] [place] [address] Physician Hematology/Oncology 03/01/22 Temi Dean PA-C [address] [facility] [place] [address] Physician Review Appraiser Hematology/Oncology 03/01/22 [employer] Relationship Specialty Start Date End Date Meghan Pichardo RN [address] [facility] [place] [address] Specialty Dietitian Teaching Hematology/Oncology 03/01/22 Oscar Gonzalez MD [address] [place] [address] Physician Hematology/Oncology 03/01/22 Temi Dean PA-C [address] [facility] [place] [address] Physician Review Appraiser Hematology/Oncology 03/01/22 [employer] Relationship Specialty Start Date End Date Meghan Pichardo RN [address] [facility] [place] [address] Specialty Dietitian Teaching Hematology/Oncology 03/01/22 Oscar Gonzalez MD [address] [place] [address] Physician Hematology/Oncology 03/01/22 Temi Dean PA-C [address] [facility] [place] [address] Physician Review Appraiser Hematology/Oncology 03/01/22 [employer] Relationship Specialty Start Date End Date Meghan Pichardo RN [address] [facility] [place] [address] Specialty Dietitian Teaching Hematology/Oncology 03/01/22 Oscar Gonzalez MD [address] [place] [address] Physician Hematology/Oncology 03/01/22 Temi Dean PA-C [address] [facility] [place] [address] Physician Review Appraiser Hematology/Oncology 03/01/22 [employer] Relationship Specialty Start Date End Date Meghan Pichardo RN [address] [facility] [place] [address] Specialty Dietitian Teaching Hematology/Oncology 03/01/22 Oscar Gonzalez MD [address] [place] [address] Physician Hematology/Oncology 03/01/22 Temi Dean PA-C [address] [facility] [place] [address] Physician Review Appraiser Hematology/Oncology 03/01/22 [employer] Relationship Specialty Start Date End Date Meghan Pichardo RN [address] [facility] [place] [address] Specialty Dietitian Teaching Hematology/Oncology 03/01/22 Oscar Gonzalez MD [address] [place] [address] Physician Hematology/Oncology 03/01/22 Temi Dean PA-C [address] [facility] [place] [address] Physician Review Appraiser Hematology/Oncology 03/01/22 [employer] Relationship Specialty Start Date End Date Meghan Pichardo RN [address] [facility] [place] [address] Specialty Dietitian Teaching Hematology/Oncology 03/01/22 Oscar Gonzalez MD [address] [facility] [place] [address] Physician Hematology/Oncology 03/01/22 Temi Dean PA-C [address] [facility] [place] [address] Physician Review Appraiser Hematology/Oncology 03/01/22 [employer] Relationship Specialty Start Date End Date Meghan Pichardo RN [address] [facility] [facility] [place] [address] Specialty Dietitian Teaching Hematology/Oncology 03/01/22 Oscar Gonzalez MD [address] [facility] [place] [address] Physician Hematology/Oncology 03/01/22 Temi Dean, PAChristopherC [address] [facility] [place] [address] Physician Review Appraiser Hematology/Oncology 03/01/22 [employer] Relationship Specialty Start Date End Date Meghan Pichardo RN [address] [facility] [facility] [place] [address] Specialty Dietitian Teaching Hematology/Oncology 03/01/22 Oscar Gonzalez MD [address] [facility] [place] [address] Physician Hematology/Oncology 03/01/22 Temi Dean, PAChristopherC [address] [facility] [place] [address] Physician Review Appraiser Hematology/Oncology 03/01/22 [employer] Relationship Specialty Start Date End Date Meghan Pichardo RN [address] [facility] [facility] [place] [address] Specialty Dietitian Teaching Hematology/Oncology 03/01/22 Oscar Gonzalez MD [address] [facility] [address] Physician Hematology/Oncology 03/01/22 Temi Dean, PAChristopherC [address] [facility] [place] [address] Physician Review Appraiser Hematology/Oncology 03/01/22 [employer] Relationship Specialty Start Date End Date Meghan Pichardo RN [address] [facility] [place] [address] Specialty Dietitian Teaching Hematology/Oncology 03/01/22 Oscar Gonzalez MD [address] [place] [address] Physician Hematology/Oncology 03/01/22 Temi Dean PA-C [address] [facility] [place] [address] Physician Review Appraiser Hematology/Oncology 03/01/22 [employer] Relationship Specialty Start Date End Date Meghan Pichardo RN [address] [facility] [place] [address] Specialty Dietitian Teaching Hematology/Oncology 03/01/22 Oscar Gonzalez MD [address] [place] [address] Physician Hematology/Oncology 03/01/22 Temi Dean PA-C [address] [facility] [place] [address] Physician Review Appraiser Hematology/Oncology 03/01/22 [employer] Relationship Specialty Start Date End Date Meghan Pichardo RN [address] [facility] [place] [address] Specialty Dietitian Teaching Hematology/Oncology 03/01/22 Oscar Gonzalez MD [address] [place] [address] Physician Hematology/Oncology 03/01/22 Temi Dean, PAhCristopherC [address] [facility] [place] [address] Physician Review Appraiser Hematology/Oncology 03/01/22 [employer] Relationship Specialty Start Date End Date Meghan Pichardo RN [address] [facility] [place] [address] Specialty Dietitian Teaching Hematology/Oncology 03/01/22 Oscar Gonzalez MD [address] [place] [address] Physician Hematology/Oncology 03/01/22 Temi Dean PA-C [address] [facility] [place] [address] Physician Review Appraiser Hematology/Oncology 03/01/22 [employer] Relationship Specialty Start Date End Date Meghan Pichardo RN [address] [facility] [place] [address] Specialty Dietitian Teaching Hematology/Oncology 03/01/22 Oscar Gonzalez MD [address] [place] [address] Physician Hematology/Oncology 03/01/22 Temi Dean PA-C [address] [facility] [place] [address] Physician Review Appraiser Hematology/Oncology 03/01/22 [employer] Relationship Specialty Start Date End Date Shaikh Adam MD [address] [place] [address] PCP - General Primary Care 08/05/22 Meghan Pichardo RN [address] [facility] [place] [address] Specialty Dietitian Teaching Hematology/Oncology 03/01/22 Oscar Gonzalez MD [address] [place] [address] Physician Hematology/Oncology 03/01/22 Temi Dean PA-C [address] [facility] [place] [address] Physician Review Appraiser Hematology/Oncology 03/01/22 [employer] Relationship Specialty Start Date End Date Shaikh Adam MD [address] [place] [address] PCP - General Primary Care 08/05/22 Meghan Pichardo RN [address] [facility] [place] [address] Specialty Dietitian Teaching Hematology/Oncology 03/01/22 Oscar Gonzalez MD [address] [place] [address] Physician Hematology/Oncology 03/01/22 Temi Dean PA-C [address] [facility] [place] [address] Physician Review Appraiser Hematology/Oncology 03/01/22 [employer] Relationship Specialty Start Date End Date Shaikh Adam MD [address] [place] [address] PCP - General Primary Care 08/05/22 Meghan Pichardo RN [address] [facility] [place] [address] Specialty Dietitian Teaching Hematology/Oncology 03/01/22 Oscar Gonzalez MD [address] [place] [address] Physician Hematology/Oncology 03/01/22 Temi Dean PA-C [address] [facility] [place] [address] Physician Review Appraiser Hematology/Oncology 03/01/22 [employer] Relationship Specialty Start Date End Date Shaikh Adam MD [address] [place] [address] PCP - General Primary Care 08/05/22 Meghan Pichardo RN [address] [facility] [place] [address] Specialty Dietitian Teaching Hematology/Oncology 03/01/22 Oscar Gonzalez MD [address] [place] [address] Physician Hematology/Oncology 03/01/22 Temi Dean PA-C [address] [facility] [place] [address] Physician Review Appraiser Hematology/Oncology 03/01/22 [employer] Relationship Specialty Start Date End Date Shaikh Adam MD [address] [place] [address] PCP - General Primary Care 08/05/22 Meghan Pichardo RN [address] [facility] [place] [address] Specialty Dietitian Teaching Hematology/Oncology 03/01/22 Oscar Gonzalez MD [address] [facility] [place] [address] Physician Hematology/Oncology 03/01/22 Temi Dean PA-C [address] [facility] [place] [address] Physician Review Appraiser Hematology/Oncology 03/01/22 [employer] Relationship Specialty Start Date End Date Shaikh Adam MD [address] [place] [address] PCP - General Primary Care 08/05/22 Meghan Pichardo RN [address] [facility] [place] [address] Specialty Dietitian Teaching Hematology/Oncology 03/01/22 Oscar Gonzalez MD [address] [facility] [address] Physician Hematology/Oncology 03/01/22 Temi Dean PA-C [address] [facility] [place] [address] Physician Review Appraiser Hematology/Oncology 03/01/22 [employer] Relationship Specialty Start Date End Date Shaikh Adam MD [address] [place] [address] PCP - General Primary Care 08/05/22 Meghan Pichardo, RN [address] [facility] [place] [address] Specialty Dietitian Teaching Hematology/Oncology 03/01/22 Oscar Gonzalez MD [address] [facility] [place] [address] Physician Hematology/Oncology 03/01/22 Temi Dean PA-C [address] [facility] [place] [address] Physician Review Appraiser Hematology/Oncology 03/01/22 [employer] Relationship Specialty Start Date End Date Shaikh Adam MD [address] [place] [address] PCP - General Primary Care 08/05/22 Meghan Pichardo RN [address] [facility] [place] [address] Specialty Dietitian Teaching Hematology/Oncology 03/01/22 Oscar Gonzalez MD [address] [facility] [place] [address] Physician Hematology/Oncology 03/01/22 Temi Dean PA-C [address] [facility] [place] [address] Physician Review Appraiser Hematology/Oncology 03/01/22 [employer] Relationship Specialty Start Date End Date Shaikh Adam MD [address] [place] [address] PCP - General Primary Care 08/05/22 Meghan Pichardo RN [address] [facility] [place] [address] Specialty Dietitian Teaching Hematology/Oncology 03/01/22 Oscar Gonzalez MD [address] [place] [address] Physician Hematology/Oncology 03/01/22 Temi Dean PA-C [address] [facility] [place] [address] Physician Review Appraiser Hematology/Oncology 03/01/22 [employer] Relationship Specialty Start Date End Date Shaikh Adam MD [address] [place] [address] PCP - General Primary Care 08/05/22 Meghan Pichardo RN [address] [facility] [place] [address] Specialty Dietitian Teaching Hematology/Oncology 03/01/22 sOcar Gonzalez MD [address] [place] [address] Physician Hematology/Oncology 03/01/22 Temi Dean PA-C [address] [facility] [place] [address] Physician Review Appraiser Hematology/Oncology 03/01/22 [employer] Relationship Specialty Start Date End Date Shaikh Adam MD [address] [place] [address] PCP - General Primary Care 08/05/22 Meghan Pichardo RN [address] [facility] [place] [address] Specialty Dietitian Teaching Hematology/Oncology 03/01/22 Oscar Gonzalez MD [address] [place] [address] Physician Hematology/Oncology 03/01/22 Temi Dean PA-C [address] [facility] [place] [address] Physician Review Appraiser Hematology/Oncology 03/01/22 [employer] Relationship Specialty Start Date End Date Shaikh Adam MD [address] [place] [address] PCP - General Primary Care 08/05/22 Meghan Pichardo RN [address] [facility] [place] [address] Specialty Dietitian Teaching Hematology/Oncology 03/01/22 Oscar Gonzalez MD [address] [facility] [place] [address] Physician Hematology/Oncology 03/01/22 Temi Dean PA-C [address] [facility] [place] [address] Physician Review Appraiser Hematology/Oncology 03/01/22 [employer] Relationship Specialty Start Date End Date Shaikh Adam MD [address] [place] [address] PCP - General Primary Care 08/05/22 Meghan Pichardo RN [address] [facility] [facility] [place] [address] Specialty Dietitian Teaching Hematology/Oncology 03/01/22 Oscar Gonzalez MD [address] [place] [address] Physician Hematology/Oncology 03/01/22 Temi Dean PA-C [address] [facility] [place] [address] Physician Review Appraiser Hematology/Oncology 03/01/22 [employer] Relationship Specialty Start Date End Date Shaikh Adam MD [address] [place] [address] PCP - General Primary Care 08/05/22 Meghan Pichardo RN [address] [facility] [place] [place] [address] Specialty Dietitian Teaching Hematology/Oncology 03/01/22 Oscar Gonzalez MD [address] [place] [address] Physician Hematology/Oncology 03/01/22 Temi Dean PA-C [address] [facility] [place] [address] Physician Review Appraiser Hematology/Oncology 03/01/22 [employer] Relationship Specialty Start Date End Date Shaikh Adam MD [address] [place] [address] PCP - General Primary Care 08/05/22 Meghan Pichardo RN [address] [facility] [facility] [place] [address] Specialty Dietitian Teaching Hematology/Oncology 03/01/22 Oscar Gonzalez MD [address] [facility] [place] [address] Physician Hematology/Oncology 03/01/22 Temi Dean PA-C [address] [facility] [facility] [place] [address] Physician Review Appraiser Hematology/Oncology 03/01/22 [employer] Relationship Specialty Start Date End Date Shaikh Adam MD [address] [place] [address] PCP - General Primary Care 08/05/22 Meghan Pichardo RN [address] [facility] [place] [address] Specialty Dietitian Teaching Hematology/Oncology 03/01/22 Oscar Gonzalez MD [address] [place] [address] Physician Hematology/Oncology 03/01/22 Temi Dean PA-C [address] [facility] [place] [address] Physician Review Appraiser Hematology/Oncology 03/01/22 [employer] Relationship Specialty Start Date End Date Shaikh Adam MD [address] [place] [address] PCP - General Primary Care 08/05/22 Meghan Pichardo RN [address] [facility] [place] [address] Specialty Dietitian Teaching Hematology/Oncology 03/01/22 Oscar Gonzalez MD [address] [place] [address] Physician Hematology/Oncology 03/01/22 Temi Dean, OSCAR [address] [facility] [place] [address] Physician Review Appraiser Hematology/Oncology 03/01/22 [employer] Relationship Specialty Start Date End Date Shaikh Adam MD [address] [place] [address] PCP - General Primary Care 08/05/22 Meghan Pichardo RN [address] [facility] [place] [address] Specialty Dietitian Teaching Hematology/Oncology 03/01/22 Oscar Gonzalez MD [address] [place] [address] Physician Hematology/Oncology 03/01/22 Temi Dean PA-C [address] [facility] [facility] [place] [address] Physician Review Appraiser Hematology/Oncology 03/01/22 [employer] Relationship Specialty Start Date End Date Shaikh Adam MD [address] [place] [address] PCP - General Primary Care 08/05/22 Meghan Pichardo RN [address] [facility] [facility] [place] [address] Specialty Dietitian Teaching Hematology/Oncology 03/01/22 Oscar Gonzalez MD [address] [facility] [place] [address] Physician Hematology/Oncology 03/01/22 Temi Dean PA-C [address] [facility] [facility] [place] [address] Physician Review Appraiser Hematology/Oncology 03/01/22 [employer] Relationship Specialty Start Date End Date Shaikh Adam MD [address] [place] [address] PCP - General Primary Care 08/05/22 Meghan Pichardo RN [address] [facility] [facility] [place] [address] Specialty Dietitian Teaching Hematology/Oncology 03/01/22 Oscar Gonzalez MD [address] [facility] [place] [address] Physician Hematology/Oncology 03/01/22 Temi Dean PA-C [address] [facility] [facility] [place] [address] Physician Review Appraiser Hematology/Oncology 03/01/22 [employer] Relationship Specialty Start Date End Date Shaikh Adam MD [address] [place] [address] PCP - General Primary Care 08/05/22 Meghan Pichardo, RN [address] [facility] [place] [address] Specialty Dietitian Teaching Hematology/Oncology 03/01/22 Oscar Gonzalez MD 417 [facility] [place] [address] Physician Hematology/Oncology 03/01/22 Temi Dean PA-C [address] [facility] [place] [address] Physician Review Appraiser Hematology/Oncology 03/01/22 FOR RECORDS PERTAINING TO PATIENTS [...] BE BASED ON THE PRIMARY CLINICAL RECORDS. [facility] [employer] [facility]. provides no warranty or guarantee of the accuracy or completeness of information in this document.
== END 2024-03-11 09:11 | disposition home or self-care (01) ==
LOC: PST 09:10
PROVIDERS: PCP Internal Medicine; Visit Provider Surgery
DX: Z01.810 Encounter for preprocedural cardiovascular examination (principal); K40.90 Unilateral inguinal hernia, without obstruction or gangrene, not specified as recurrent
CPT/HCPCS: 93005

== ENCOUNTER 2025-03-28 22:16 | Emergency (ER) | payer SELFPAY ==
[2025-03-28 22:18] VITALS: BP 128/76; PULSE 89; TEMP 36.8; O2SAT 93; BMI 20.5
--- NOTE | 2025-03-28 22:30 | PC.NURSE ---
area just above wrist a contusion.
--- OUTSIDE RECORDS SUMMARY | 2025-03-28 22:33 | XMS_ITS | Encounter Summary ---
Author Organization [facility] Address [address] [place] [address] Care Team Providers Care Ethylbenzene Converter Helper Name Role Phone Charity Pichardo RN Unavailable [phone] Mike Gonzalez MD Unavailable [phone] Temi Ramirez PA-C Unavailable [phone] Shaikh FÉLIX Adam Primary Care Provider [phone] Source Comments In the event this information is protected by the Federal Confidentiality of Alcohol and Drug AbusePatient Records regulations: The Federal rules restrict any use of the information to criminally investigate or prosecute any alcohol or drug abuse patient.[facility] Encounter Details Date Type Department Care Team (Late st Contact Info) Description 10/12/2022 GI Preprocedure Call [facility] Surgery [address] [place] [address] Shaikh Adam MD [facility] [place], [place] [id number] Social History Tobacco Use Types Packs/Day Years Used Date Smoking Tobacco: Every Day Cigarettes 0.5 25 Smokeless Tobacco: Never Alcohol Use Standard Drinks/Week Comments Yes 0 (1 standard drink = 0.6 oz pur e alcohol) 2 drinks/week; heavy in past Area Deprivation Index Answer Date Santiago rded National Score (1-100), lower number is lower ri sk 83 03/17/2022 State Score (1-10), lower number is lower risk N ot on file 03/17/2022 Data from: https://www.neighborhoodatlas.medicine.[facility].edu/. Last address used for calculation [address] 03/17/2022 Sex and Gender Information Value Date Recorded Sex Assigned at Not on file Legal Sex Male 7:24 AM EST Gender Identity Not on file Sexual Orientation Not on file COVID-19 Exposure Response Date Recorded In the last 10 days, have yo u been in contact with someone who was confirmed or suspected to have Coronavirus/COVID-19? No / Unsure 09/26/2022 1:10 PM EST documented as of this encounter Functional Status * Are you deaf or do you have serious difficulty hearing? Answer Date of Assessment Author No 02/24/2022 4:57 PM Clovis Forrest RN * Are you blind or do you have serious difficulty seeing, even when wearing glasses? Answer Date of Assessment Author No 02/24/2022 4:57 PM Clovis Forrest RN * Do you have serious difficulty walking or climbing stairs? Answer Date of Assessment Author No 02/24/2022 4:57 PM Clovis Forrest RN * Do you have difficulty dressing or bathing? Answer Date of Assessment Author No 02/24/2022 4:57 PM Clovis Forrest RN * Because of a physical, mental, or emotional condition, do you have difficulty doing errands alone such as visiting a doctor's office or shopping? Answer Date of Assessment Author Yes 02/24/2022 4:57 PM Clovis Forrest RN documented as of this encounter Mental Status * Because of a physical, mental, or emotional condition, do you have serious difficulty concentrating, remembering, or making decisions? Answer Entry Date Author No 02/24/2022 4:57 PM Clovis Forrest RN documented in this encounter Plan of Treatment Not on file documented as of this encounter Visit Diagnoses Not on filedocumented in this encounter Additional Health Concerns Infection Onset Date Last Indicated Resolved Time COVID-19 Rule-Out 11/07/2022 11/07/2022 11/07/2022 1:26 PM EST documented as of this encounter Care Teams Ethylbenzene Converter Helper Relationship Specialty Start Date End Date Shaikh Adam MD [address] [facility] [place] [address] PCP - General Primary Care 08/05/22 Charity Pichardo, RN [address] [facility] [place] [place] [address] Specialty Trust Accounts Supervisor Hematology/Oncology 03/01/22 06/23/24 Mike Gonzalez MD [address] [place] [address] [place] [address] Physician Hematology/Oncology 03/01/22 Temi Ramirez, PA-C [address] [place] [address] [place] [address] Physician Assistant Hairstylist Hematology/Oncology 03/01/22 documented as of this encounter
--- OUTSIDE RECORDS SUMMARY | 2025-03-28 22:33 | XMS_ITS | Encounter Summary ---
Author Organization [facility] Address [address] [place] [address] Care Team Providers Care Whistle Punk Name Role Phone Mike Gonzalez MD Unavailable [phone] Temi Ramirez PA-C Unavailable [phone] Shaikh FÉLIX Adam Primary Care Provider [phone] Source Comments In the event this information is protected by the Federal Confidentiality of Alcohol and Drug AbusePatient Records regulations: The Federal rules restrict any use of the information to criminally investigate or prosecute any alcohol or drug abuse patient.[facility] Encounter Details Date Type Department Care Team (Late st Contact Info) Description 10/10/2024 Patient Msg Cardiology [address] [place] [phone] Provider, [facility]cf Appointment Cancellation: Cardiology Social History Tobacco Use Types Packs/Day Years Used Date Smoking Tobacco: Former Cigarettes 0.5 25 0 10/30/1997 - 10/30/2022 Smokeless Tobacco: Never Comments:Less than half a pa ck Alcohol Use Standard Drinks/Week Comments Not Currently 0 (1 standard drink = 0.6 oz pur e alcohol) 2 drinks/week; heavy in past Overall Financial Resource Strain (CARDIA) Answe r Date Recorded How hard is it for you to pa y for the very basics like food, housing, medical care, and heating? Not hard at all 02/21/2023 Hunger Vital Sign Answer Date Recorded Within the past 12 months, y ou worried that your food would run out before you got the money to buy more. Never true 02/22/20 23 Within the past 12 months, t he food you bought just didn't last and you didn't have money to get more. Never true 02/21/2023 PRAPARE - Transportation Answer Date Re corded In the past 12 months, has l ack of transportation kept you from medical appointments or from getting medications? No 01/29 In the past 12 months, has l ack of transportation kept you from meetings, work, or from getting things needed for daily living? No 02/21/2023 Housing Stability Vital Sign Answer Andrew e Recorded In the last 12 months, was t here a time when you were not able to pay the mortgage or rent on time? No 02/21/2023 In the last 12 months, how many places have you lived? 1 02/21/2023 In the last 12 months, was t here a time when you did not have a steady place to sleep or slept in a halfway (including now)? No 02/21/2023 Area Deprivation Index Answer Date Santiago rded National Score (1-100), lower number is lower ri sk 93 04/19/2024 State Score (1-10), lower number is lower risk 9 04/19/2024 Data from: https://www.neighborhoodatlas.medicine.[facility].edu/. Last address used for calculation [address] 04/19/2024 Sex and Gender Information Value Date Recorded Sex Assigned at Not on file Legal Sex Male 7:24 AM EST Gender Identity Not on file Sexual Orientation Not on file documented as of this encounter Functional Status * Are you deaf or do you have serious difficulty hearing? Answer Date of Assessment Author No 02/22/2023 4:57 PM Laura Weaver, SHEMAR * Are you blind or do you have serious difficulty seeing, even when wearing glasses? Answer Date of Assessment Author No 02/22/2023 4:57 PM Laura Weaver, SHEMAR * Do you have serious difficulty walking or climbing stairs? Answer Date of Assessment Author No 02/22/2023 4:57 PM Laura Weaver RN * Do you have difficulty dressing or bathing? Answer Date of Assessment Author No 02/22/2023 4:57 PM Laura Weaver RN * Because of a physical, mental, or emotional condition, do you have difficulty doing errands alone such as visiting a doctor's office or shopping? Answer Date of Assessment Author No 02/22/2023 4:57 PM Laura Weaver RN documented as of this encounter Mental Status * Because of a physical, mental, or emotional condition, do you have serious difficulty concentrating, remembering, or making decisions? Answer Entry Date Author No 02/22/2023 4:57 PM Laura Weaver RN documented in this encounter Plan of Treatment Not on file documented as of this encounter Visit Diagnoses Not on filedocumented in this encounter Care Teams Whistle Punk Relationship Specialty Start Date End Date Shaikh Adam MD [address] [place] [address] PCP - General Primary Care 08/05/22 Mike Gonzalez MD [address] [place] [address] Physician Hematology/Oncology 03/01/22 Temi Ramirez PA-C [address] [place] [address] Physician Hospitality House Supervisor Hematology/Oncology 03/01/22 documented as of this encounter
--- OUTSIDE RECORDS SUMMARY | 2025-03-28 22:33 | XMS_ITS | Encounter Summary ---
Author Organization [facility] Address [address] [place] [address] Care Team Providers Care Independent Insurance Adjuster Name Role Phone Mike Gonzalez MD Unavailable [phone] Temi Ramirez PA-C Unavailable [phone] Shaikh FÉLIX Adam Primary Care Provider [phone] Source Comments In the event this information is protected by the Federal Confidentiality of Alcohol and Drug AbusePatient Records regulations: The Federal rules restrict any use of the information to criminally investigate or prosecute any alcohol or drug abuse patient.[facility] Encounter Details Date Type Department Care Team (Late st Contact Info) Description 07/09/2024 Patient Msg Cardiology [address] [place] [id number] Provider, [facility] Cardiology Social History Tobacco Use Types Packs/Day [...] place to sleep or slept in a fpc (including now)? No 02/21/2023 Area Deprivation Index Answer Date Santiago rded National Score (1-100), lower number is lower ri sk 93 04/19/2024 State Score (1-10), lower number is lower risk 9 04/19/2024 Data from: https://www.neighborhoodatlas.medicine.[facility].edu/. Last address used for calculation [address] [...] on filedocumented in this encounter Care Teams Independent Insurance Adjuster Relationship Specialty Start Date End Date Shaikh Adam MD [address] [place] [address] PCP - General Primary Care 08/05/22 Mike Gonzalez MD [address] [place] [address] [place] [address] Physician Hematology/Oncology 03/01/22 Temi Ramirez PA-C [address] [place] [address] [place] [address] Physician Electro Tech Hematology/Oncology 03/01/22 documented as of this encounter
--- OUTSIDE RECORDS SUMMARY | 2025-03-28 22:33 | XMS_ITS | Encounter Summary ---
Author Organization [facility] Address [address] [place] [address] Care Team Providers Care Gasoline Attendant Name Role Phone Charity Pichardo RN Unavailable [phone] Mike Gonzalez MD Unavailable [phone] Temi RamirezC Unavailable [phone] Shaikh FÉLIX Adam Primary Care Provider [phone] Source Comments In the event this information is protected by the Federal Confidentiality of Alcohol and Drug AbusePatient Records regulations: The Federal rules restrict any use of the information to criminally investigate or prosecute any alcohol or drug abuse patient.[facility] Encounter Details Date Type Department Care Team (Late st Contact Info) Description 05/10/2022 [place] [address] Provider, [facility] MRI Screening Questionnaire Completion Required Social History Tobacco Use Types Packs/Day Years Used Date Smoking Tobacco: Every Day Cigarettes 0.5 25 Smokeless Tobacco: Never Alcohol Use Standard Drinks/Week Comments Yes 0 (1 standard drink = 0.6 oz pur e alcohol) 2 drinks/week; heavy in past Area Deprivation Index Answer Date Santiago rded National Score (1-100), lower number is lower ri 83 03/17/2022 State Score (1-10), lower number is lower risk N ot on file 03/17/2022 Data from: https://www.neighborhoodatlas.[facility]/. Last address used for calculation [address] [...] suspected to have Coronavirus/COVID-19? No / Unsure 05/12/2022 12:48 PM EDT documented as of this encounter Functional Status * Are you deaf or do you have serious difficulty hearing? Answer Date of Assessment Author No 02/24/2022 4:57 PM EDT Clovis Govea RN * Are you blind or do you have serious difficulty seeing, even when wearing glasses? Answer Date of Assessment Author No 02/24/2022 4:57 PM EDT Clovis Govea RN * Do you have serious difficulty walking or climbing stairs? Answer Date of Assessment Author No 02/24/2022 4:57 PM EDT Clovis Govea RN * Do you have difficulty dressing or bathing? Answer Date of Assessment Author No 02/24/2022 4:57 PM EDT Clovis Govea RN * Because of a physical, mental, or emotional condition, do you have difficulty doing errands alone such as visiting a doctor's office or shopping? Answer Date of Assessment Author Yes 02/24/2022 4:57 PM EDT Clovis Govea RN documented as of this encounter Mental Status * Because of a physical, mental, or emotional condition, do you have serious difficulty concentrating, remembering, or making decisions? Answer Entry Date Author No 02/24/2022 4:57 PM EDT Clovis Govea RN documented in this encounter Plan of Treatment Not on file documented as of this encounter Visit Diagnoses Not on filedocumented in this encounter Additional Health Concerns Infection Onset Date Last Indicated Resolved Time COVID-19 Rule-Out 11/07/2022 11/07/2022 11/07/2022 1:26 PM EST documented as of this encounter Care Teams Gasoline Attendant Relationship Specialty Start Date End Date Fawwad, Shea, MD [facility] [place] [address] PCP - General Primary Care 08/05/22 Charity Pichardo, RN [address] [facility] [place] [address] Specialty Occupational Health Nurse Supervisor Hematology/Oncology 03/01/22 06/23/24 Mike Gonzalez MD [address] [place] [address] [place] [address] Physician Hematology/Oncology 03/01/22 Temi Ramirez, PA-C [address] [place] [address] [place] [address] Physician Senior Architect Hematology/Oncology 03/01/22 documented as of this encounter
--- OUTSIDE RECORDS SUMMARY | 2025-03-28 22:33 | XMS_ITS | Encounter Summary ---
Author Organization [facility] Address [address] [facility] [place] [address] Care Team Providers Care Functional Analyst Name Role Phone Shaikh FÉLIX Adam Primary Care Provider [phone] Shaikh FÉLIX Adam Primary Care Provider [phone] Akira Vargas MD Primary Care Provider [phone] Majo Workman [employer]ORTS BOOKMAKER Unavailable [phone] Encounter Details Date Type Department Care Team (Late st Contact Info) Description 11/06/2023 Orders Only [facility] [address] [place] [address] Shaikh Adam MD [address] [place] [address] Attention deficit hyperactivity disorder (ADHD), predominantly hyperactive type (CMS/HCC) Social History Tobacco Use Types Packs/Day Years Used Date Smoking Tobacco: Never Assessed Sex and Gender Information Value Date Recorded Sex Assigned at Not on file Legal Sex Male 11:22 PM EDT Gender Identity Not on file Sexual Orientation Not on file documented as of this encounter Plan of Treatment Not on file documented as of this encounter Visit Diagnoses Diagnosis Attention deficit hyperactivity disorder (ADHD), predominantly hyperactive type (CMS/HCC) documented in this encounter Care Teams Functional Analyst Relationship Specialty Start Date End Date Shaikh Adam MD PCP - General Internal Medicine 05/11/23 01/21/24 Shaikh Adam MD [address] [place] [id number] PCP - General Internal Medicine 01/22/24 06/04/24 Akira Vargas MD [address] [place] [address] PCP - General Family Medicine 06/05/24 Majo Workman NP [address] [place] [phone] Nurse Practitioner Family Medicine 06/05/24 documented as of this encounter
--- OUTSIDE RECORDS SUMMARY | 2025-03-28 22:33 | XMS_ITS | Clinical Summary ---
Author Organization [facility] Address [address] [place] [address] Care Team Providers Care Law Office Receptionist Name Role Phone Mike Gonzalez MD Unavailable [phone] Temi Ramirez PA-C Unavailable [phone] Shaikh FÉLIX Adam Primary Care Provider [phone] Allergies No known active allergies Medications levothyroxine (SYNTHROID) 125 mcg tablet Take 125 mcg by mouth once daily. 11/01/19 22 Active acetaminophen (TYLENOL) 500 mg tablet Take 2 tablets by mouth every 6 hours. 02/25/20 22 Active loratadine (CLARITIN) 10 mg tablet Take 10 mg by mouth once daily. 02/09/20 22 Active iv contrast (will be provided with radiology test)Indications :Malignant neoplasm of rectum (HCC) CT ABD/PEL -Inject, [...] CT contrast administration guidelines link. 1 Each 10/04/20 22 Active enteric contrast (will be provided with radiology test)Indications :Malignant neoplasm of rectum (HCC) For CT ABD/PEL W IVCON Routine order Administer, As Directed One Time Only, via Oral, Rectal, both Oral and Rectal, Enteric Tube, Stoma or Indwelling Catheter, Enteric Contrast as designated per enteric contrast guidelines 1 Each 10/04/20 22 Active ibuprofen (MOTRIN) 200 mg tablet Take 200 mg by mouth every 6 hours as needed for pain. Active lactobacillus rhamnosus (CULTURELLE) 10 billion cell capsule Take 1 capsule by mouth once daily. 30 capsule 02/23/20 23 Active amphetamine-dext roamphetamine XR (ADDERALL XR) 15 mg capsuleIndicatio ns:Pre-op examination Take 1 capsule by mouth once daily for 30 days. 0 06/22/20 24 Active amLODIPine (NORVASC) 5 mg tabletIndication s:Primary hypertension Take 1 tablet by mouth once daily. 90 tablet 1 08/07/20 24 Active Active Problems Problem Noted Date Diagnosed Date Secondary pulmonary arterial hypertension 2023 Assessment & Plan (06/25/2024 10:16 AM EDT): Most recent echocardiogram only showing mild elevation of RVSP at 38 mmHg Tricuspid regurgitation, RV dilatation, and history of provoked single episode of pulmonary embolism all noted. Etiology unclear but significant variability in estimated RVSP noted. Probably needs a repeat echocardiogram in the [facility] system on future follow-up. Arrhythmogenic right ventricular dysplasia 06/25 Assessment & Plan (06/25/2024 10:16 AM EDT): Suspected based on recent MRI in [place] although inconclusive diagnosis No history of syncope No family history of sudden cardiac This needs to be further investigated however given the severity of his hernia symptoms, it can be done on future follow-up Depressed left ventricular ejection fraction Assessment & Plan (06/25/2024 10:16 AM EDT): Conflicting data between echo and MRI with the echo in February showing normal ejection fraction and cardiac MRI showing low normal to mild decrease with an EF of 50% Clinically he is asymptomatic and not in heart failure. Will need follow-up evaluation on future outpatient visits Attention deficit hyperactiv ity disorder (ADHD), predominantly hyperactive type 01/22/2024 Overview (06/22/2024): Last Assessment & Plan: Symptoms well controlled on current regimen. Assessment & Plan (06/23/2024 10:22 AM EDT): Assessment: stable without meds DVT (deep venous thrombosis) 10/28/2022 Assessment & Plan (06/23/2024 9:52 AM EDT): Assessment: states one instance 10 years ago, completed course of warfarin, no recurrence Assessment & Plan (02/09/2023 2:21 PM EDT): Assessment: Hx of, remote anticoagulated Denies recent episodes Assessment & Plan (10/28/2022 12:47 PM EST): Assessment: remote hx Treated with 6 months of anticoagulants Malaise and fatigue 07/15/2022 Severe protein-calorie malnutrition 02/22/2022 Rectal cancer 02/21/2022 Cancer Staging:Pathologic stage from 11/10/2022: ypT3, pN0 - Signed by Durga Malave MD on 11/10/2022 Assessment & Plan (06/23/2024 9:52 AM EDT): Assessment: resolved. s/p colectomy 2021, reversal of ostomy 2021 with [facility]. History of intravenous drug abuse 02/16/2022 Assessment & Plan (06/23/2024 9:51 AM EDT): Assessment: h/o of heroin use, clean since 2016 Assessment & Plan (02/09/2023 2:18 PM EDT): Assessment: Sober for 7 years Has Suboxone, is weaning off it ; takes every 2-3 days Assessment & Plan (10/28/2022 12:27 PM EST): Assessment: Sober x 7 years per patient Rx suboxone- very rare use Former smoker 02/16/2022 Assessment & Plan (06/23/2024 9:53 AM EDT): Assessment: reports that he quit smoking about 19 months ago. His smoking use included cigarettes. He started smoking about 26 years ago. He has a 12.5 pack- year smoking history. He has never used smokeless tobacco. Assessment & Plan (02/09/2023 2:22 PM EDT): Assessment: former cigarette smoker for 25 years; quit 10/2022 wears nicotine patch Assessment & Plan (10/28/2022 12:30 PM EST): Assessment: Intermittent smoking Rectal mass 02/16/2022 Red blood cell antibody positive 02/09/2022 Overview (02/09/2022): See Blood Bank Report, Antibody Interpretation for details. History of endocarditis 01/17/2022 Assessment & Plan (06/25/2024 10:16 AM EDT): Remote, approximately 20 years ago. Presumed involving tricuspid valve (secondary to IVDA). No recurrence Assessment & Plan (06/23/2024 9:54 AM EDT): Assessment: history of endocarditis over 15 years ago due to IV drug use. No other instance. Assessment & Plan (02/09/2023 2:15 PM EDT): Assessment: History of Endocarditis > 15 years ago; Hx IV drug use denies any other episodes Assessment & Plan (10/28/2022 12:46 PM EST): Assessment: d/t IVDU Medical management >15 years ago Severe tricuspid regurgitation 01/17/2022 Assessment & Plan (06/25/2024 10:16 AM EDT): Conflicting data with echocardiogram in February suggesting moderate to severe regurgitation and cardiac MRI in April only indicating mild regurgitation. Either way suspect this to be secondary to RV dilatation. Assessment & Plan (06/26/2024 6:42 AM EDT): Assessment: stable and asymptomatic today. This was a virtual visit, and as such was unable to auscultate. Patient states pulse is regular. Was able to see [facility] Dr. Graham at [facility] on 06/25/24: He had tolerated multiple colon surgeries in 2022 for colon cancer which he tolerated well (last one January 2023) He has no angina or angina equivalent. He is not in heart failure either left or right sided. He remains very active despite limitations of his hernia. Given all of the above, cardiac complication risk of hernia surgery is a low. He may proceed as planned. ... In summary Hoang pierre pr Mr. Petty oceed with hernia surgery as planned at low cardiac complication risk. Advised that he will need follow-up with cardiology in the future. A referral to Dr. Marie was placed since he saw him back in 2021. Assessment & Plan (02/09/2023 2:16 PM EDT): Assessment: Severe Tricuspid Regurgitation per 01/17/2022 ECHO, [...] with the plan. Pt. currently is Asymptomatic Assessment & Plan (10/28/2022 12:35 PM EST): Assessment: Per cardiology to talk about possible surgical intervention after CA procedures See OV note Abnormality of right ventricle of heart 01/18/20 Assessment & Plan (06/25/2024 10:16 AM EDT): Severe based on echo and more recently cardiac MRI Severe dysfunction also noted based on echo done in February of this year Unclear etiology Hypothyroidism unspecified 12/02/2021 Assessment & Plan (06/23/2024 9:53 AM EDT): Assessment: stable with current medication regimen Assessment & Plan (02/09/2023 2:21 PM EDT): Assessment: Managed with med, stable. Assessment & Plan (10/28/2022 12:28 PM EST): Assessment: Stable on synthroid Resolved Problems Problem Noted Date Diagnosed Date Resolved Date Attention to ileostomy 02/20/202306/23 Encounters Date Type Department Care Team Description 01/17/2025 Patient Msg Hematology/Oncology [address] [facility] [place] [address] Mike Gonzalez MD Appointment Request 01/16/2025 Patient [place] [address] Provider, [facility] Financial Clearance from Last 3 Months Immunizations Immunization Administration Dates Next Due influenza (IIV4) vaccine, ag e 6 mo - 64 yr, quadrivalent (AFLURIA, FLULAVAL, FLUZONE) 12/01/2018 Family History Medical History Relation Comments Colon Cancer Maternal Grandfather Breast Cancer Sister Relation Status Comments Maternal Grandfather Sister Social History Tobacco Use Types Packs/Day Years Used Date Smoking Tobacco: Former Cigarettes 0.5 25 0 10/30/1997 - 10/30/2022 Smokeless Tobacco: Never Tobacco Cessation:Counseling Given: Not Answered Comments:Less than half a pack Alcohol Use Standard Drinks/Week Comments Not Currently [...] place to sleep or slept in a detention (including now)? No 02/21/2023 Area Deprivation Index Answer Date Santiago rded National Score (1-100), lower number is lower ri sk 93 04/19/2024 State Score (1-10), lower number is lower risk 9 04/19/2024 Data from: https://www.neighborhoodatlas.medicine.[facility].edu/. Last address used for calculation [address] 04/19/2024 Sex and Gender Information Value Date Recorded Sex Assigned at Not on file Legal Sex Male 7:24 AM EST Gender Identity Not on file Sexual Orientation Not on file Last Filed Vital Signs Vital Sign Reading Time Taken Comments Blood Pressure 104/76 07/03/2024 11:55 AM EDT Pulse 75 07/03/2024 11:55 AM EDT Temperature 36.3 C (97.3 F) 07/03/2024 11:55 AM EDT Respiratory Rate 14 07/03/2024 11:55 AM EDT Oxygen Saturation 100% 07/03/2024 11:55 AM EDT Inhaled Oxygen Concentration - - Weight 60.8 kg (134 lb) 06/25/2024 9:10 AM EDT Height 170.2 cm (5' 7 ) 06/25/2024 9:10 AM EDT Body Mass Index 20.99 06/25/2024 9:10 AM EDT Plan of Treatment Health Maintenance Due Date Last Done Comments Annual PCP Team Chronic Dise ase Visit 1991 Anxiety Screening 1991 Depression Screening 1991 HIV Screening 1991 Hepatitis C Screening 1991 DTaP,Tdap,Td Vaccine (1 - Tdap) 1992 Hepatitis B Vaccine (1 of 3 - 19+ 3-dose series) 1992 CT Colonography 2018 Cologuard (FIT-DNA) 2018 Colonoscopy 2018 Fecal Occult Blood 2018 Pneumococcal Vaccine: 50+ (1 of 1 - PCV) 2023 Shingrix Vaccine (1 of 2) 2023 Covid-19 Vaccine (2023-2 5 season) 2024 Influenza Vaccine (Season Ended) 2025 12/01/19 19 Diabetes Screening 02/21/2026 02/21/2023, 0 02/21/2023, 02/09/2023, Additional history exists Colorectal Cancer Screening 10/13/2027 Sigmoidoscopy 10/13/2027 10/13/2022 Lipid Screening 04/27/2028 04/27/2023 Medical Devices Implanted Type Area Gasoline Power Shovel Operator Device Identifier Shelf Expiration Date Model / Serial / Lot Mesh Parietene Macroporous [id number] Surgical - [id number] Implanted:Qty: 1 on 07/03/2024 at [facility] Mesh Left: Inguinal [employer] 02/26/2029 [id number] / / [id number] Procedures Procedure Name Priority Date/Time Associated Diagnosis Comments LIPID-LIPO PANEL 1 Routine 04/27/2023 12 :12 PM EDT Hyperlipidemia, unspecified hyperlipidemia type BASIC METABOLIC PANEL STAT 02/21/2023 2:00 AM EDT SIGMOIDOSCOPY Routine 10/13/2022 2:29 PM EST Follow-up examination after colorectal surgery Rectal cancer (HCC) from Last 3 Months or Most Recently Relevant to Health Maintenance Results * (ABNORMAL) LIPID PANEL, NONFASTING (04/27/2023 12:12 PM EDT) Total Cholesterol, Nonfasting 202(H) <200 mg/dL 04/28/2023 11:21 AM EDT [facility] Comment: <200 mg/dL, Desirable 200-239 mg/dL, Borderline high >239 mg/dL, High Triglycerides, Nonfasting 93 <150 mg/dL 04/28/2023 11:21 AM EDT [facility] Comment: <150 mg/dL, Normal 150-199 mg/dL, Borderline high 200-499 mg/dL, High >499 mg/dL, Very high HDL Cholesterol, Nonfasting 74 >39 mg/dL 04/28/2023 11:21 AM EDT [facility] Comment: 40-59 mg/dL, Acceptable >59 mg/dL, High: Negative risk factor for coronary heart disease <40 mg/dL, Low: Positive risk factor for coronary heart disease LDL Cholesterol Calculated, Nonfasting 109(H) <100 mg/dL 04/28/2023 11:21 AM EDT [facility] Comment: <100 mg/dL, Optimal 100-129 mg/dL, Near optimal/above optimal 130-159 mg/dL, Borderline high 160-189 mg/dL, High >189 mg/dL, Very high Secondary prevention optimal LDL Cholesterol levels are recommended to be < 70 mg/dL Non HDL Cholesterol, Nonfasting 128 <130 mg/dL 04/28/2023 11:21 AM EDT [facility] Comment: <130 mg/dL, Optimal 130-159 mg/dL, Near optimal/above optimal 160-189 mg/dL, Borderline high 190-219 mg/dL, High >219 mg/dL, Very high Secondary prevention optimal non HDL Cholesterol levels are recommended to be <100 mg/dL VLDL Cholesterol, Nonfasting 19 <30 mg/dL 04/28/2023 11:21 AM EDT [facility] Total Chol/HDL Ratio, Nonfasting 2.73 <5.10 mg/dL 04/28/2023 11:21 AM EDT [facility] LDL/HDL Ratio, Nonfasting 1.47 <2.54 mg/dL 04/28/2023 11:21 AM T [facility] Comment: Reference: 1. National Cholesterol Education Program ATP III Guideline At-A-Glance Quick Desk Reference: National Heart, Lung, and Blood [place]. National Institutes of Health. 2001: NIH Publication No. 01-3305. 2. An International Atherosclerosis Society position paper: global recommendations for the management of dyslipidemia: executive summary, Atherosclerosis. 2014: 232(2):410-413. Blood BLOOD SPECIMEN / Unknown Venipuncture / Unknown 04/27/2023 12:12 PM EDT 04/27/2023 12:12 PM EDT us Shaikh Kia [facility] Final Result [facility] [address] [facility] [address] [address], * (ABNORMAL) BASIC METABOLIC PNL (02/21/2023 2:00 AM EDT) [facility] Glucose 132(H) 74 - 99 mg/dL 02/21/2023 2:28 AM [facility] Comment: The [place] Diabetes Association (ADA) provides guidance for cutoff [...] Standards of Medical Care in Diabetes 2016, [place] Diabetes Association. Diabetes Care. 2016.39(Suppl 1). BUN 13 9 - 24 mg/dL 02/21/2023 2:28 AM [facility] Creatinine 0.71(L) 0.73 - 1.22 mg/dL 02/21/2023 2:28 AM [facility] Sodium 139 136 - 144 mmol/L 02/21/2023 2:28 AM [facility] Potassium 4.1 3.7 - 5.1 mmol/L 02/21/2023 2:28 AM [facility] Chloride 104 97 - 105 mmol/L 02/21/2023 2:28 AM [facility] CO2 24 22 - 30 mmol/L 02/21/2023 2:28 AM [facility] Anion Gap 11 9 - 18 mmol/L 02/21/2023 2:28 AM [facility] Calcium, Total 9.1 8.5 - 10.2 mg/dL 02/21/2023 2:28 AM [facility] Estimated Glomerular Filtration Rate 112 >=60 mL/min/1. 73m 02/21/2023 2:28 AM [facility] Comment:Estimated Glomerular Filtration Rate (eGFR) is calculated using the 2020 CKD-EPI creatinine equation. This equation utilizes serum creatinine, sex, and age as parameters. The creatinine assay has traceable calibration to isotope dilution- mass spectrometry. Refer to KDIGO guidelines for clinical interpretation. In patients with unstable renal function, e.g. those with acute kidney injury, the eGFR may not accurately reflect actual GFR. Blood BLOOD SPECIMEN / Unknown Venipuncture / Unknown 02/21/2023 2:00 AM EDT 02/21/2023 2:06 AM EDT Ana Enriquez MD LABORATORY Final Result Performing Organization Address City/State/[facility] Co de Phone Number [facility] [place] [address] [place] [address], * SIGMOIDOSCOPY (10/13/2022 2:29 PM EST) Anatomical Region Laterality Modality Other 10/13/2022 2:29 PM EST Narrative 10/14/2022 1:28 PM EST [facility] Gastrointestinal Endoscopy Patient Name: Hoang Dorado Procedure Date: 10/13/2022 2:29 PM Date of : 1975 Admit Type: Outpatient Age: 47 Room: [place] [address] Gender: Male Note Status: Finalized Attending MD: [...] Estimated Blood Loss: Estimated blood loss: none. Ana Enriquez MD DIGESTIVE DISEASE Final Result from Last 3 Months or Most Recently Relevant to Health Maintenance Insurance [facility] [facility] Care Teams Law Office Receptionist Relationship Specialty Start Date End Date Shaikh Adam MD [facility] [place] [address] PCP - General Primary Care 08/05/22 Mike Gonzalez MD [address] [place] [address] Physician Hematology/Oncology 03/01/22 Temi Ramirez PA-C [address] [facility] [place] [address] Physician Risk Prevention Engineer Hematology/Oncology 03/01/22
--- OUTSIDE RECORDS SUMMARY | 2025-03-28 22:33 | XMS_ITS | Encounter Summary ---
Author Organization [facility] Address [address] [place] [address] Care Team Providers Care Solar Energy Technician Name Role Phone Charity Pichardo RN Unavailable [phone] Mike Gonzalez MD Unavailable [phone] Temi Ramirez PA-C Unavailable [phone] Shaikh FÉLIX Adam Primary Care Provider [phone] Source Comments In the event this information is protected by the Federal Confidentiality of Alcohol and Drug AbusePatient Records regulations: The Federal rules restrict any use of the information to criminally investigate or prosecute any alcohol or drug abuse patient.[facility] Encounter Details Date Type Department Care Team (Late st Contact Info) Description 02/01/2023 Patient Msg Colorectal Surgery [id number] [place] [address] [place] [address] [place] [address] radiology results Social History Tobacco Use Types Packs/Day Years [...] lower number is lower ri sk 83 11/11/2022 State Score (1-10), lower number is lower risk N ot on file 11/11/2022 Data from: https://www.neighborhoodatlas.[facility]/. Last address used for calculation [address] 11/11/2022 Sex and Gender Information Value Date Recorded Sex Assigned at Not on file Legal Sex Male 7:24 AM EST Gender Identity Not on file Sexual Orientation Not on file documented as of this encounter Functional Status * Are you deaf or do you have serious difficulty hearing? Answer Date of Assessment Author No 11/12/2022 10:43 AM Sally Ricks RN * Are you blind or do you have serious difficulty seeing, even when wearing glasses? Answer Date of Assessment Author No 11/12/2022 10:43 AM Sally Ricks RN * Do you have serious difficulty walking or climbing stairs? Answer Date of Assessment Author No 11/12/2022 10:43 AM Sally Ricks RN * Do you have difficulty dressing or bathing? Answer Date of Assessment Author No 11/12/2022 10:43 AM Sally Ricks RN * Because of a physical, mental, or emotional condition, do you have difficulty doing errands alone such as visiting a doctor's office or shopping? Answer Date of Assessment Author No 11/12/2022 10:43 AM Sally Ricks RN documented as of this encounter Mental Status * Because of a physical, mental, or emotional condition, do you have serious difficulty concentrating, remembering, or making decisions? Answer Entry Date Author No 11/12/2022 10:43 AM Sally Ricks RN documented in this encounter Plan of Treatment Not on file documented as of this encounter Visit Diagnoses Not on filedocumented in this encounter Care Teams Solar Energy Technician Relationship Specialty Start Date End Date Shaikh Adam MD [facility] [place] [place] [address] PCP - General Primary Care 08/05/22 Charity Pichardo RN [address] [place] [address] [place] [address] Specialty Claims Configuration Analyst Hematology/Oncology 03/01/22 06/23/24 Mike Gonzalez MD [address] [place] [address] [place] [address] Physician Hematology/Oncology 03/01/22 Temi Ramirez PAChristopherC [address] [place] [address] [place] [address] Physician Charging Operator Hematology/Oncology 03/01/22 documented as of this encounter
--- OUTSIDE RECORDS SUMMARY | 2025-03-28 22:33 | XMS_ITS | Referral Summary ---
Author Organization [facility] Address [address] [place] [address] Care Team Providers Care Binding Cementer French Cord Name Role Phone Shaikh FÉLIX Adam Primary Care Provider [phone] Allergies No known active allergies Medications Medication Sig Dispensed Refills Start Date End Date Status buprenorphine-naloxone (Suboxone) 8-[address] 0.5 Film under the tongue in the morning. 01/16/2023 Active amphetamine-dextroamph etamine XR (Adderall XR) 15 mg 24 hr capsule Take 15 mg by mouth in the morning. Active levothyroxine (Synthroid, Levoxyl) 137 mcg tablet Take 137 mcg by mouth in the morning. Active Active Problems Problem Noted Date Diagnosed Date Abdominal pain 05/13/2024 Diarrhea 05/13/2024 Weight loss 05/13/2024 Attention deficit hyperactiv ity disorder (ADHD), predominantly hyperactive type 01/22/2024 Overview (03/22/2024): Last Assessment & Plan: Symptoms well controlled on current regimen. Left inguinal hernia 01/22/2024 Overview (03/22/2024): Last Assessment & Plan: Noticed pain and swelling a few weeks ago in left inguinal region. Exam indicative of left inguinal hernia. He has prior hx of repair on right side. He also had colectomy for rectal cancer. Patient reports pain that is intermittent, denies nausea, vomiting, abd distention Will order CT abd/pelvis. Patient referred to general surgeon Instructed to go to ED if persistent/intractable pain or intractable nausea/vomiting develops. Attention to ileostomy 02/20/2023 DVT (deep venous thrombosis) 10/28/2022 Overview (03/22/2024): Last Assessment & Plan: Assessment: Hx of, remote anticoagulated Denies recent episodes Last Assessment & Plan: Assessment: Hx of, remote anticoagulated Denies recent episodes Malaise and fatigue 07/15/2022 Severe protein-calorie malnutrition 02/22/2022 Rectal cancer 02/21/2022 Former smoker 02/16/2022 Overview (03/22/2024): Last Assessment & Plan: Assessment: former cigarette smoker for 25 years; quit 10/2022 wears nicotine patch Last Assessment & Plan: Assessment: former cigarette smoker for 25 years; quit 10/2022 wears nicotine patch History of intravenous drug abuse 02/16/2022 Overview (03/22/2024): Last Assessment & Plan: Assessment: Sober for 7 years Has Suboxone, is weaning off it ; takes every 2-3 days Last Assessment & Plan: Assessment: Sober for 7 years Has Suboxone, is weaning off it ; takes every 2-3 days Rectal mass 02/16/2022 Red blood cell antibody positive 02/09/2022 Overview (03/22/2024): See Blood Bank Report, Antibody Interpretation for details. Abnormality of right ventricle of heart 01/18/20 22 History of endocarditis 01/17/2022 Overview (03/22/2024): Last Assessment & Plan: Assessment: History of Endocarditis > 15 years ago; Hx IV drug use denies any other episodes Last Assessment & Plan: Assessment: History of Endocarditis > 15 years ago; Hx IV drug use denies any other episodes Severe tricuspid regurgitation 01/17/2022 Overview (03/22/2024): Last Assessment & Plan: Assessment: Severe Tricuspid Regurgitation per 01/17/2022 ECHO, [...] with the plan. Pt. currently is Asymptomatic Last Assessment & Plan: Hx of severe TR based on an ECHO 01/18 No recent ECHO. Denies CP, SOB, palpitations or LE edema. Will order ECHO to assess cardiac structure. 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 Last Assessment & Plan: Assessment: Severe Tricuspid Regurgitation per 01/17/2022 ECHO, [...] with the plan. Pt. currently is Asymptomatic Hypothyroidism 12/02/2021 Overview (03/22/2024): Last Assessment & Plan: Assessment: Managed with med, stable. Last Assessment & Plan: His levothyroxine was adjusted last appt. Check TSH Last Assessment & Plan: Assessment: Managed with lobo ni. Social History Tobacco Use Types Packs/Day Years Used Date Smoking Tobacco: Former Cigarettes Smokeless Tobacco: Never Alcohol Use Standard Drinks/Week Comments Not Currently 0 (1 standard drink = 0.6 oz pur e alcohol) [place] Safety & Environment Answer Date Rec orded Fear of Current or Ex-Partner Not on file Emotionally Abused Not on file 03/11/2024 Physically Abused Not on file 03/11/2024 Sexually Abused Not on file 03/11/2024 Physically or Sexually Abused Not on file Sex and Gender Information Value Date Recorded Sex Assigned at Not on file Gender Identity Not on file Sexual Orientation Not on file Last Filed Vital Signs Vital Sign Reading Time Taken Comments Blood Pressure 138/98 05/13/2024 11:15 AM EDT Pulse 79 05/13/2024 11:15 AM EDT Temperature - - Respiratory Rate - - Oxygen Saturation 98% 05/13/2024 11:15 AM EDT Inhaled Oxygen Concentration - - Weight 57.6 kg (127 lb) 05/13/2024 11:15 AM EDT Height 172.7 cm (5' 8 ) 05/13/2024 11:15 AM EDT Body Mass Index 19.31 05/13/2024 11:15 AM EDT Plan of Treatment Not on file Care Teams Binding Cementer French Cord Relationship Specialty Start Date End Date Shaikh Adam MD [address] [place] [address] PCP - General Family Medicine 03/11/24
--- OUTSIDE RECORDS SUMMARY | 2025-03-28 22:33 | XMS_ITS | Encounter Summary ---
Author Organization [facility] Address [address] [place] [address] Care Team Providers Care Contracting Analyst Name Role Phone Charity Pichardo RN Unavailable [phone] Mike Gonzalez MD Unavailable [phone] Temi RamirezC Unavailable [phone] Shaikh FÉLIX Adam Primary Care Provider [phone] Source Comments In the event this information is protected by the Federal Confidentiality of Alcohol and Drug AbusePatient Records regulations: The Federal rules restrict any use of the information to criminally investigate or prosecute any alcohol or drug abuse patient.[facility] Encounter Details Date Type Department Care Team (Late st Contact Info) Description 01/28/2024 Patient Msg Cardiology [address] [place] [address] [place] [address] [place] [address] Appointment Request Social History Tobacco Use Types Packs/Day Years [...] place to sleep or slept in a long term (including now)? No 02/21/2023 Area Deprivation Index Answer Date Santiago rded National Score (1-100), lower number is lower ri sk 83 11/11/2022 State Score (1-10), lower number is lower risk N ot on file 11/11/2022 Data from: https://www.neighborhoodatlas.medicine.[facility].edu/. Last address used for calculation [address] [...] 02/22/2023 4:57 PM Laura Weaver RN * Are you blind or do you have serious difficulty seeing, even when wearing glasses? Answer Date of Assessment Author No 02/22/2023 4:57 PM Laura Weaver RN * Do you have serious difficulty [...] on filedocumented in this encounter Care Teams Contracting Analyst Relationship Specialty Start Date End Date Shaikh Adam MD [address] [place] [address] PCP - General Primary Care 08/05/22 Charity Pichardo RN [address] [place] [address] Specialty Carpenter Mine Hematology/Oncology 03/01/22 06/23/24 Mike Gonzalez MD [address] [facility] [place] [address] Physician Hematology/Oncology 03/01/22 Temi Ramirez PA-C [address] [facility] [place] [address] Physician Recovery Engineer Hematology/Oncology 03/01/22 documented as of this encounter
--- OUTSIDE RECORDS SUMMARY | 2025-03-28 22:33 | XMS_ITS | Encounter Summary ---
Author Organization [facility] Address [address] [place] [address] Care Team Providers Care Educational Aid Name Role Phone Charity Pichardo RN Unavailable [phone] Mike Gonzalez MD Unavailable [phone] Temi Ramirez-C Unavailable [phone] Shaikh FÉLIX Adam Primary Care Provider [phone] Source Comments In the event this information is protected by the Federal Confidentiality of Alcohol and Drug AbusePatient Records regulations: The Federal rules restrict any use of the information to criminally investigate or prosecute any alcohol or drug abuse patient.[facility] Encounter Details Date Type Department Care Team (Late st Contact Info) Description 05/27/2024 Patient Msg General Surgery [address] [place] [address] Provider, Ccf appointment Social History Tobacco Use Types Packs/Day Years [...] place to sleep or slept in a retirement (including now)? No 02/21/2023 Area Deprivation Index Answer Date Santiago rded National Score (1-100), lower number is lower ri sk 93 04/19/2024 State Score (1-10), lower number is lower risk 9 04/19/2024 Data from: https://www.neighborhoodatlas.medicine.[facility].edu/. Last address used for calculation [address] [...] Author No 02/22/2023 4:57 PM Laura Weaver, RN * Are you blind or do [...] on filedocumented in this encounter Care Teams Educational Aid Relationship Specialty Start Date End Date Shaikh Adma MD [address] [place] [address] PCP - General Primary Care 08/05/22 Charity Pichardo RN [address] [facility] [place] [address] Specialty Mail Service Coordinator Hematology/Oncology 03/01/22 06/23/24 Mike Gonzalez MD [address] [place] [address] [place] [address] Physician Hematology/Oncology 03/01/22 Temi Ramirez PA-C [address] [place] [address] Physician Engineering Systems Analyst Hematology/Oncology 03/01/22 documented as of this encounter
--- OUTSIDE RECORDS SUMMARY | 2025-03-28 22:33 | XMS_ITS | Encounter Summary ---
Author Organization [facility] Address [address] [place] [address] Care Team Providers Care Network Security Architect Name Role Phone Mike Gonzalez MD Unavailable [phone] Temi Ramirez PA-C Unavailable [phone] Shaikh FÉLIX Adam Primary Care Provider [phone] Source Comments In the event this information is protected by the Federal Confidentiality of Alcohol and Drug AbusePatient Records regulations: The Federal rules restrict any use of the information to criminally investigate or prosecute any alcohol or drug abuse patient.[facility] Encounter Details Date Type Department Care Team (Late st Contact Info) Description 01/16/2025 Patient [place] [address] Provider, Ccf Financial Clearance Social History Tobacco Use Types Packs/Day Years [...] place to sleep or slept in a mcc (including now)? No 02/21/2023 Area Deprivation Index Answer Date Santiago rded National Score (1-100), lower number is lower ri sk 93 04/19/2024 State Score (1-10), lower number is lower risk 9 04/19/2024 Data from: https://www.neighborhoodatlas.medicine.[facility].edu/. Last address used for calculation [address] [...] on filedocumented in this encounter Care Teams Network Security Architect Relationship Specialty Start Date End Date Shaikh Adam MD [address] [facility] [place] [address] PCP - General Primary Care 08/05/22 Mike Gonzalez MD [address] [place] [address] Physician Hematology/Oncology 03/01/22 Temi Ramirez PA-C [address] [place] [address] Physician Manager Flight Operations Hematology/Oncology 03/01/22 documented as of this encounter
--- OUTSIDE RECORDS SUMMARY | 2025-03-28 22:33 | XMS_ITS | Encounter Summary ---
Author Organization [facility] Address [address] [place] [address] Care Team Providers Care Traffic Controller Cable Name Role Phone Charity Pichardo RN Unavailable [phone] Mike Gonzalez MD Unavailable [phone] Temi Ramirez-C Unavailable [phone] Shaikh FÉLIX Adam Primary Care Provider [phone] Source Comments In the event this information is protected by the Federal Confidentiality of Alcohol and Drug AbusePatient Records regulations: The Federal rules restrict any use of the information to criminally investigate or prosecute any alcohol or drug abuse patient.[facility] Encounter Details Date Type Department Care Team (Late st Contact Info) Description 06/23/2024 Patient Msg Pre Anesthesia [address] [place], [place] [id number] Ilan Willett APRN.[employer] [address] [place] [address] PREOPERATIVE INSTRUCTIONS Social History Tobacco Use Types Packs/Day Years [...] place to sleep or slept in a half-way (including now)? No 02/21/2023 Area Deprivation Index Answer Date Santiago rded National Score (1-100), lower number is lower ri sk 93 04/19/2024 State Score (1-10), lower number is lower risk 9 04/19/2024 Data from: https://www.neighborhoodatlas.medicine.[place].edu/. Last address used for calculation [address] [...] on filedocumented in this encounter Care Teams Traffic Controller Cable Relationship Specialty Start Date End Date Shaikh Adam MD [address] [facility] [place] [address] PCP - General Primary Care 08/05/22 Charity Pichardo RN [address] [facility] [address] [place] [address] Specialty Ezpawn Sales And Lending Team Member Hematology/Oncology 03/01/22 06/23/24 Mike Gonzalez MD [address] [facility] [place] [address] Physician Hematology/Oncology 03/01/22 Temi Ramirez PA-C [address] [facility] [place] [address] Physician Photocomposition Keyboard Operator Hematology/Oncology 03/01/22 documented as of this encounter
--- OUTSIDE RECORDS SUMMARY | 2025-03-28 22:33 | XMS_ITS | Encounter Summary ---
Author Organization [facility] Address [address] [place] [address] Care Team Providers Care Chemical Reclamation Equipment Operator Name Role Phone Shaikh FÉLIX Adam Primary Care Provider [phone] Akira Vargas MD Primary Care Provider [phone] Majo Workman APPLIED ANTHROPOLOGIST Unavailable [phone] Encounter Details Date Type Department Care Team (Late st Contact Info) Description 02/26/2024 Orders Only [facility] [address] [place] [address] Shaikh Adam MD [address] [place] [address] Social History Tobacco Use Types Packs/Day Years Used Date Smoking Tobacco: Former Cigarettes Passive Smoke Exposure: Past Smokeless Tobacco: Never Alcohol Use Standard Drinks/Week Comments Not Currently 0 (1 standard drink = 0.6 oz pur e alcohol) PHQ-2 Answer Date Recorded Patient Health Questionnaire-2 Score 0 01/22/2024 Sex and Gender Information Value Date Recorded Sex Assigned at Not on file Legal Sex Male 11:22 PM EDT Gender Identity Not on file Sexual Orientation Not on file documented as of this encounter Plan of Treatment Not on file documented as of this encounter Visit Diagnoses Not on filedocumented in this encounter Care Teams Chemical Reclamation Equipment Operator Relationship Specialty Start Date End Date Shaikh Adam MD [address] [place] [address] PCP - General Internal Medicine 01/22/24 06/04/24 Akira Vargas MD [address] [place] [address] PCP - General Family Medicine 06/05/24 Majo Workman NP [address] [place] [address] Nurse Practitioner Family Medicine 06/05/24 documented as of this encounter
--- OUTSIDE RECORDS SUMMARY | 2025-03-28 22:33 | XMS_ITS | Clinical Summary ---
Author Organization [facility] Address [address] [place] [address] Care Team Providers Care Emergency Medical Service Coordinator Name Role Phone Shaikh FÉLIX Adam Primary Care Provider [phone] Allergies No known active allergies Medications Medication [...] & Plan: Assessment: Managed with lobo ni. Family History Medical History Relation Name Comments No Known Problems Father No Known Problems Mother Relation Name Status Comments Father Mother Social History Tobacco Use Types Packs/Day Years [...] 05/13/2024 11:15 AM EDT Plan of Treatment Health Maintenance Due Date Last Done Comments Pneumococcal Vaccine: Pediat rics (0 to 5 Years) and At-Risk Patients (6 to 64 Years) (1 of 2 - PCV) 1979 Depression Screening 1985 Hepatitis B Vaccines (1 of 3 - 19+ 3-dose series) 1992 Adult Tetanus 1995 Zoster Vaccines (1 of 2) 2023 COVID-19 Vaccine ( - 2023-2 5 season) 2024 Influenza Vaccine (Season Ended) 2025 12/01/19 19 HIB Vaccines Aged Out No longer eligi ble based on patient's age to complete this topic HPV Vaccines Aged Out No longer eligi ble based on patient's age to complete this topic IPV Vaccines Aged Out No longer eligi ble based on patient's age to complete this topic Meningococcal B Vaccine Aged Out No l onger eligible based on patient's age to complete this topic Meningococcal Vaccine Aged Out No dean elsie eligible based on patient's age to complete this topic Rotavirus Vaccines Aged Out No longer eligible based on patient's age to complete this topic Care Teams Emergency Medical Service Coordinator Relationship Specialty Start Date End Date Shaikh Adam MD [address] [place] [address] PCP - General Family Medicine 03/11/24
--- OUTSIDE RECORDS SUMMARY | 2025-03-28 22:33 | XMS_ITS | Encounter Summary ---
Author Organization [facility] Address [address] [place] [address] Care Team Providers Care Machine Finisher Name Role Phone Charity Pichardo RN Unavailable [phone] Mike Gonzalez MD Unavailable [phone] Temi RamirezC Unavailable [phone] Shaikh FÉLIX Adam Primary Care Provider [phone] Source Comments In the event this information is protected by the Federal Confidentiality of Alcohol and Drug AbusePatient Records regulations: The Federal rules restrict any use of the information to criminally investigate or prosecute any alcohol or drug abuse patient.[facility] Encounter Details Date Type Department Care Team (Late st Contact Info) Description 09/24/2022 [place] [address] Provider, Ccf MRI Screening Questionnaire Completion Required [...] N ot on file 03/17/2022 Data from: https://www.neighborhoodatlas.[facility]/. Last address used for calculation [address] [...] documented as of this encounter Care Teams Machine Finisher Relationship Specialty Start Date End Date Fawd, Shea, MD [address] [facility] [place] [place] [address] PCP - General Primary Care 08/05/22 Charity Pichardo, RN [address] [place] [address] [place] [address] Specialty Restaurant Hostess Hematology/Oncology 03/01/22 06/23/24 Mike Gonzalez MD [address] [place] [address] [place] [address] Physician Hematology/Oncology 03/01/22 Temi Ramirez, PA-C [address] [place] [address] [place] [address] Physician Business Continuity Management Director Hematology/Oncology 03/01/22 documented as of this encounter
--- OUTSIDE RECORDS SUMMARY | 2025-03-28 22:33 | XMS_ITS | Encounter Summary ---
Author Organization [facility] Address [address] [place] [address] Care Team Providers Care Ice Cream Freezer Name Role Phone Charity Pichardo RN Unavailable [phone] Mike Gonzalez MD Unavailable [phone] Temi RamirezC Unavailable [phone] Shaikh FÉLIX Adam Primary Care Provider [phone] Source Comments In the event this information is protected by the Federal Confidentiality of Alcohol and Drug AbusePatient Records regulations: The Federal rules restrict any use of the information to criminally investigate or prosecute any alcohol or drug abuse patient.[facility] Encounter Details Date Type Department Care Team (Late st Contact Info) Description 06/21/2022 Patient Msg General Surgery [address] [place], [place] [id number] Provider, Saba sigmoidoscopy prep instructions Social History Tobacco Use Types Packs/Day Years [...] N ot on file 03/17/2022 Data from: https://www.neighborhoodatlas.medicine.[facility].edu/. Last address used for calculation [address] [...] suspected to have Coronavirus/COVID-19? No / Unsure 06/24/2022 8:59 AM EDT documented as of this encounter Functional [...] documented as of this encounter Care Teams Ice Cream Freezer Relationship Specialty Start Date End Date Shaikh Adam MD [facility] [facility] [address] PCP - General Primary Care 08/05/22 Charity Pichardo RN [address] [facility] [place] [address] Specialty Hard Metals Engraver Hand Hematology/Oncology 03/01/22 06/23/24 Mike Gonzalez MD [address] [facility] [place] [address] Physician Hematology/Oncology 03/01/22 Temi Ramirez PA-C [address] [facility] [place] [address] Physician Customs Compliance Manager Hematology/Oncology 03/01/22 documented as of this encounter
--- OUTSIDE RECORDS SUMMARY | 2025-03-28 22:33 | XMS_ITS ---
Author Organization [facility] Address [address] [place] [address] Care Team Providers Care Business Assistant Name Role Phone Mike Gonzalez MD Unavailable [phone] Temi Ramirez PA-C Unavailable [phone] Shaikh FÉLIX Adam Primary Care Provider [phone] Active Problems Problem Noted Date Diagnosed Date Secondary pulmonary arterial hypertension 2023 Assessment & Plan (06/25/2024 10:16 AM EDT): Most recent echocardiogram only showing mild elevation of RVSP at 38 mmHg Tricuspid regurgitation, RV dilatation, and history of provoked single episode of pulmonary embolism all noted. Etiology unclear but significant variability in estimated RVSP noted. Probably needs a repeat echocardiogram in the [facility] system on future follow-up. Arrhythmogenic right ventricular dysplasia 06/25 Assessment & Plan (06/25/2024 10:16 AM EDT): Suspected based on recent MRI in [place] although inconclusive diagnosis No history of syncope [...] Assessment: h/o of heroin use, clean since 2015 Assessment & Plan (02/09/2023 2:18 PM EDT): [...] pulse is regular. Was able to see Account Assistant Dr. Graham at [facility] on 06/25/24: He had tolerated multiple colon surgeries in 2021 for colon cancer which he tolerated well [...] (02/09/2023 2:21 PM EDT): Assessment: Managed with lobo ni. Assessment & Plan (10/28/2022 12:28 PM EST): Assessment: Stable on synthroid Current Treatment and Therapy Plans No current plan information found. Past Treatment and Therapy Plans NON-CHEMO 1 Plan Name Start Date Discontinue Date Treatment Medications Discontinue Reason Plan Provider Cycles CYANOCOBALAMIN 1000 D1,29,57 - Q84D 2 05/06/2023 No medications scheduled. Other Temi Ramirez PA-C 1 of 4 cycles started ONCOLOGY REGIMEN Plan Name Start Date Discontinue Date Treatment Medications Discontinue Reason Plan Provider Cycles AMB CAPOX - OXALIPLATIN 130 D1 CAPECITABINE 1000 PO BID D1-14 - Q21D 06/01/2022 12/08/2022 capecitabine (XELODA)oxalipl atin iv piggyback in D5W 500 mL (ELOXATIN)palon osetron (ALOXI) Other Mike Gonzalez MD 5 of 8 cycles started Resolved Problems Problem Noted Date Diagnosed Date Resolved Date Attention to ileostomy 02/20/202306/23
--- OUTSIDE RECORDS SUMMARY | 2025-03-28 22:33 | XMS_ITS | Encounter Summary ---
Author Organization [facility] Address [address] [place] [address] Care Team Providers Care Java Lead Engineer Name Role Phone Shaikh FÉLIX Adam Primary Care Provider [phone] Akira Vargas MD Primary Care Provider [phone] Majo Workman CUSTOM FRAME ASSEMBLER Unavailable [phone] Encounter Details Date Type Department Care Team (Late st Contact Info) Description 03/11/2024 Clinisync Result Encounter [facility] External Department Unsolicited Hoang SureshDO Social History Tobacco Use Types Packs/Day Years [...] on file documented as of this encounter Procedures Procedure Name Priority Date/Time Associated Diagnosis Comments ECG 12-LEAD 03/11/2024 9:40 AM EDT documented in this encounter Results * ECG 12-LEAD (03/11/2024 9:40 AM EDT) Anatomical Region Laterality Modality Other 03/11/2024 9:40 AM EDT Narrative 03/11/2024 11:02 PM EDT [facility] [place] [id number] Electrocardiograph Report Signed Patient: HOANG DORADO MR#: [id number] : 1975 Acct:[id number] Age/Sex: 48 / M ADM Date: 03/11/24 Loc: PST Attending Dr: Hoang Suresh D.O. Ordering Physician: Hoang Suresh D.O. Date of Service: 03/11/24 Procedure(s): ECG 12 lead Accession Number(s): [id number] cc: [facility] Test Date: 2024-03-11 Pat Name: HOANG DORADO Department: Room: - Gender: Male Laundry Operator Finishing: : 1975 Requested By: SHAIKH ANGELICA Order Number: [id number] Reading MD: GIOVANNI HUANG Measurements Intervals [place] Rate: 65 P: 145 FL: 202 QRS: 150 QRSD: 135 T: 43 QT: 400 QTc: 419 Interpretive Statements ECTOPIC ATRIAL RHYTHM INTRAVENTRICULAR CONDUCTION DELAY [130+ ms QRS DURATION] POSSIBLE RIGHT VENTRICULAR HYPERTROPHY [SOME/ALL OF: PROMINENT R IN V1, LATE TRANSITION, RAD, ERICK, SSS] No previous ECG available for comparison Electronically Signed On 03-11-2024 23:02:13 EDT by GIOVANNI HUANG Dictated By: Giovanni Huang D.O. Signed By: 03/11/242301 DD/ 0940 TD/TT: Cell Tester: Procedure Note Radiology, Radiologist, MD - 03/11/[address] [address] Electrocardiograph Report Signed Patient: TOÑITO DORADOR#: [id number] : 1975Acct:[id number] Age/Sex: 48 / MADM Date: 03/11/24 Loc: PST Attending Dr: Hoang Suresh D.O. Ordering Physician: Hoang Suresh D.O. 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 Signed By:03/11/242301 DD/ 9 TD/TT: Cell Tester: us Hoang Suresh DO [facility] Final Result documented in this encounter Visit Diagnoses Not on filedocumented in this encounter Care Teams Java Lead Engineer Relationship Specialty Start Date End Date Shaikh Adam MD [address] [place] [id number] PCP - General Internal Medicine 01/22/24 06/04/24 Akira Vargas MD [address] [place] [address] PCP - General Family Medicine 06/05/24 Majo Workman NP [address] [place] [address] Nurse Practitioner Family Medicine 06/05/24 documented as of this encounter
--- OUTSIDE RECORDS SUMMARY | 2025-03-28 22:33 | XMS_ITS | Encounter Summary ---
Author Organization [facility] Address [address] [place] [address] Care Team Providers Care Real Estate Recruiter Name Role Phone Mike Gonzalez MD Unavailable [phone] Temi Ramirez PA-C Unavailable [phone] Shaikh FÉLIX Adam Primary Care Provider [phone] Source Comments In the event this information is protected by the Federal Confidentiality of Alcohol and Drug AbusePatient Records regulations: The Federal rules restrict any use of the information to criminally investigate or prosecute any alcohol or drug abuse patient.[facility] Encounter Details Date Type Department Care Team (Late st Contact Info) Description 01/17/2025 Patient Msg Hematology/Oncology [address] [address] Mike Gonzalez MD [address] [place] [address] [place] [address] Appointment Request Social History Tobacco Use Types [...] place to sleep or slept in a jail (including now)? No 02/21/2023 Area Deprivation Index Answer Date Santiago rded National Score (1-100), lower number is lower ri sk 93 04/19/2024 State Score (1-10), lower number is lower risk 9 04/19/2024 Data from: https://www.neighborhoodatlas.medicine.[facility].edu/. Last address used for calculation [address] [...] on filedocumented in this encounter Care Teams Real Estate Recruiter Relationship Specialty Start Date End Date Shaikh Adam MD [address] [facility] [place] [address] PCP - General Primary Care 08/05/22 Mike Gonzalez MD [address] [facility] [place] [address] Physician Hematology/Oncology 03/01/22 Temi Ramirez PA-C [address] [place] [address] Physician Director Patient Accounting Hematology/Oncology 03/01/22 documented as of this encounter
--- OUTSIDE RECORDS SUMMARY | 2025-03-28 22:33 | XMS_ITS | Encounter Summary ---
Author Organization [facility] Address [address] [place] [address] Care Team Providers Care Assembler Hydraulic Backhoe Name Role Phone Charity Pichardo RN Unavailable [phone] Mike Gonzalez MD Unavailable [phone] Temi Ramirez-C Unavailable [phone] Shaikh FÉLIX Adam Primary Care Provider [phone] Source Comments In the event this information is protected by the Federal Confidentiality of Alcohol and Drug AbusePatient Records regulations: The Federal rules restrict any use of the information to criminally investigate or prosecute any alcohol or drug abuse patient.[facility] Encounter Details Date Type Department Care Team (Late st Contact Info) Description 05/31/2024 Patient Msg Colorectal Surgery [address] [place], [place] [id number] Provider, Ccf Invite Social History Tobacco Use Types Packs/Day Years [...] risk 9 04/19/2024 Data from: https://www.neighborhoodatlas.medicine.[facility].edu/. Last address used for calculation [...] on filedocumented in this encounter Care Teams Assembler Hydraulic Backhoe Relationship Specialty Start Date End Date Shaikh Adam MD [address] [place] [address] PCP - General Primary Care 08/05/22 Charity Pichardo RN [address] [place] [address] Specialty Guyline Operator Hematology/Oncology 03/01/22 06/23/24 Mike Gonzalez MD [address] [place] [address] [place] [address] Physician Hematology/Oncology 03/01/22 Temi Ramirez PA-C [address] [facility] [place] [address] Physician Abalone Fisherman Hematology/Oncology 03/01/22 documented as of this encounter
--- OUTSIDE RECORDS SUMMARY | 2025-03-28 22:33 | XMS_ITS | Encounter Summary ---
Author Organization [facility] Address [address] [place] [address] Care Team Providers Care Small Offset Printer Name Role Phone Charity Pichardo RN Unavailable [phone] Mike Gonzalez MD Unavailable [phone] Temi Ramirez-C Unavailable [phone] Shaikh FÉLIX Adam Primary Care Provider [phone] Source Comments In the event this information is protected by the Federal Confidentiality of Alcohol and Drug AbusePatient Records regulations: The Federal rules restrict any use of the information to criminally investigate or prosecute any alcohol or drug abuse patient.[facility] Encounter Details Date Type Department Care Team (Late st Contact Info) Description 06/14/2024 Patient Msg Pre Anesthesia [address] [place] [address] Provider, Ccf Pre Anesthesia Testing Social History Tobacco Use Types Packs/Day Years [...] is lower risk 9 04/19/2024 Data from: https://www.neighborhoodatlas.medicine.[facility].edu/. Last address used for calculation [address] [...] of Assessment Author No 02/22/2023 4:57 PM EDT Laura Salas, SHEMAR * Are you blind or do [...] on filedocumented in this encounter Care Teams Small Offset Printer Relationship Specialty Start Date End Date Shaikh Adam MD [address] [place] [address] PCP - General Primary Care 08/05/22 Charity Pichardo RN [address] [place] [address] Specialty Athletic Shoe Designer Hematology/Oncology 03/01/22 06/23/24 Mike Gonzalez MD [address] [place] [address] [place] [address] Physician Hematology/Oncology 03/01/22 Temi Ramirez, PAChristopherC [address] [place] [address] Physician Retail Pharmacist Hematology/Oncology 03/01/22 documented as of this encounter
--- OUTSIDE RECORDS SUMMARY | 2025-03-28 22:33 | XMS_ITS | Encounter Summary ---
Author Organization [facility] Address [address] [place] [address] Care Team Providers Care Roadside Mechanic Name Role Phone Charity Pichardo RN Unavailable [phone] Mike Gonzalez MD Unavailable [phone] Temi Ramirez-C Unavailable [phone] Shaikh FÉLIX Adam Primary Care Provider [phone] Source Comments In the event this information is protected by the Federal Confidentiality of Alcohol and Drug AbusePatient Records regulations: The Federal rules restrict any use of the information to criminally investigate or prosecute any alcohol or drug abuse patient.[facility] Encounter Details Date Type Department Care Team (Late st Contact Info) Description 06/29/2022 GI Preprocedure Call [facility] Surgery [address] [place] [address] [place] [address] [place], [place] [id number] Social History Tobacco Use Types Packs/Day Years [...] N ot on file 03/17/2022 Data from: https://www.neighborhoodatlas.medicine.[facility]/. Last address used for calculation [address] [...] Entry Date Author No 02/24/2022 4:57 PM MARYT Clovis Govea RN documented in this encounter Plan of Treatment Not on file documented as of this encounter Visit Diagnoses Not on filedocumented in this encounter Additional Health Concerns Infection Onset Date Last Indicated Resolved Time COVID-19 Rule-Out 11/07/2022 11/07/2022 11/07/2022 1:26 PM EST documented as of this encounter Care Teams Roadside Mechanic Relationship Specialty Start Date End Date Shaikh Adam MD [address] [place] [place] [address] PCP - General Primary Care 08/05/22 Charity Pichardo, RN [address] [place] [address] Specialty Merchandising Manager Hematology/Oncology 03/01/22 06/23/24 Mike Gonzalez MD [address] [place] [address] [place] [address] Physician Hematology/Oncology 03/01/22 Temi Ramirez PA-C [address] [place] [address] [place] [address] Physician Pc Installation Engineer Hematology/Oncology 03/01/22 documented as of this encounter
--- OUTSIDE RECORDS SUMMARY | 2025-03-28 22:33 | XMS_ITS | Clinical Summary ---
Author Organization [employer] [facility] Address [id number] [place] [address] Care Team Providers Care Button Riveter Name Role Phone Unavailable Primary Care Provider Unavailabl e Social History Tobacco Use Types Packs/Day Years Used Date Smoking Tobacco: Never Assessed Sex and Gender Information Value Date Recorded Sex Assigned at Not on file Legal Sex Male 1:45 PM EST Gender Identity Not on file Sexual Orientation Not on file Plan of Treatment Health Maintenance Due Date Last Done Comments Depression Screening 1985 Tobacco Screening 1985 Adult BMI Screening 1991 DTaP,Tdap and Td Vaccines (1 - Tdap) 1992 Zoster (Shingles) Vaccine (1 of 2) 2023 Influenza Vaccine 06/30/2025 12/01/2018 Medical Devices Not on file
--- OUTSIDE RECORDS SUMMARY | 2025-03-28 22:33 | XMS_ITS | Encounter Summary ---
Author Organization [facility] Address [address] [place] [address] Care Team Providers Care Report Clerk Name Role Phone Mike Gonzalez MD Unavailable [phone] Temi Ramirez PA-C Unavailable [phone] Shaikh FÉLIX Adam Primary Care Provider [phone] Source Comments In the event this information is protected by the Federal Confidentiality of Alcohol and Drug AbusePatient Records regulations: The Federal rules restrict any use of the information to criminally investigate or prosecute any alcohol or drug abuse patient.[facility] Encounter Details Date Type Department Care Team (Late st Contact Info) Description 08/14/2024 Get Medical Advice General Surgery [address] [place], [place] [id number] [place] [address] [place] [address] Back to work release Social History Tobacco Use Types Packs/Day Years [...] place to sleep or slept in a snf (including now)? No 02/21/2023 Area Deprivation Index Answer Date Santiago rded National Score (1-100), lower number is lower ri sk 93 04/19/2024 State Score (1-10), lower number is lower risk 9 04/19/2024 Data from: https://www.neighborhoodatlas.medicine.[facility].edu/. Last address used for calculation [address] [...] on filedocumented in this encounter Care Teams Report Clerk Relationship Specialty Start Date End Date Shaikh Adam MD [address] [place] [address] PCP - General Primary Care 08/05/22 Mike Gonzalez MD [address] [facility] [place] [address] Physician Hematology/Oncology 03/01/22 Temi Ramirez PA-C [address] [place] [address] Physician Validation Scientist Hematology/Oncology 03/01/22 documented as of this encounter
--- OUTSIDE RECORDS SUMMARY | 2025-03-28 22:33 | XMS_ITS | Encounter Summary ---
Author Organization [facility] Address [address] [place] [address] Care Team Providers Care Manager Of Tax Name Role Phone Shaikh FÉLIX Adam Primary Care Provider [phone] Akira Vargas MD Primary Care Provider [phone] Majo Workman ASSIGNER Unavailable [phone] Encounter Details Date Type Department Care Team (Late st Contact Info) Description 03/05/2024 Clinisync Result Encounter [facility] External Department Unsolicited Shaikh Adam MD [address] [place] [id number] Social History Tobacco Use Types Packs/Day Years [...] Procedure Name Priority Date/Time Associated Diagnosis Comments CA ECHO DOPPLER COMPLETE 03/05/2024 4:33 PM EDT documented in this encounter Results * CA ECHO DOPPLER COMPLETE (03/05/2024 4:33 PM EDT) Anatomical Region Laterality Modality Other 03/05/2024 4:33 PM EDT [facility] 03/05/2024 4:34 [place] [address] Cardiology Report Signed Patient: HOANG DORADO MR#: [id number] : 1975 Acct:[id number] Age/Sex: 48 / M ADM Date: 03/04/24 Loc: CARD Attending Dr: Shaikh Kia Woody Ordering Physician: Shaikh Bong Adam Date of Service: 03/04/24 Procedure(s): CA echo doppler complete Accession Number(s): [id number] cc: Shaikh Bong Adam Patient Name: HOANG DORADO MR#: [id number] : 1975 Exam Date: 03/04/2024 Ordering Doctor: SHAIKH Daren ADAM . ECHOCARDIOGRAM REPORT PROCEDURE: CA ECHO DOPPLER COMPLETE INDICATIONS: H/o severe tricuspid regurgitation, h/o colon cancer - chemo therapy, radiation COMPARISON: None. DESCRIPTION: COMPLETE ECHOCARDIOGRAM Real-time transthoracic echocardiography with 2D, M-mode, spectral and color flow Doppler performed. QUALITY: Technical quality was good. 68 , 135#, BSA 1.73 m2, BP 126/80 LEFT VENTRICLE: Normal chamber size. Normal left ventricular wall thickness. D-shaped septum consistent with right ventricular pressure and/or volume overload. LV EF: Global left ventricular systolic function is normal; visually estimated ejection fraction is 60 to 65%. No significant wall motion abnormalities. DIASTOLIC: Diastolic function is normal. ATRIAL SEPTUM: Visually appears intact. LEFT ATRIUM: Normal chamber size. RIGHT ATRIUM: Severe dilatation. A prominent membrane in the midportion of the right atrium is seen likely representing a Eustachian valve. Differential diagnosis includes Cor triatriatum loida. Recommend further imaging as clinically appropriate. RIGHT VENTRICLE: Severe dilatation. Right ventricular systolic function is severely reduced. TRICUSPID VALVE: Normal mobility and thickness. No stenosis with severe regurgitation. Right ventricular systolic pressure is mildly elevated; RVSP 38 mmHg MITRAL VALVE: Normal mobility and thickness. No evidence of mitral valve stenosis. Mild mitral annular calcification. No mitral regurgitation. AORTIC VALVE: Normal trileaflet appearance. No visible sclerosis. Normal leaflet mobility. No evidence of aortic valve stenosis. No aortic regurgitation. AORTIC ROOT: Normal diameter and appearance. Ascending aorta is normal in size. PULMONIC VALVE: Normal thickness and mobility. No stenosis. No regurgitation. PERICARDIUM: No evidence of pericardial effusion. IVC: Collapses with inspirations. IVC is dilated (2.5 cm) CONCLUSION: 1. Global left ventricular systolic function is normal; visually estimated ejection fraction is 60 to 65% 2. D-shaped septum consistent with right ventricular pressure and/or volume overload 3. The right ventricle is severely dilated with severely reduced systolic function 4. The right atrium is severely dilated; a prominent membrane in the midportion of the right atrium is seen likely representing a Eustachian valve. Differential diagnosis includes Cor triatriatum loida. Recommend further imaging as clinically appropriate (e.g ONDINA, cardiac CT, or MRI). 5. Severe tricuspid regurgitation 6. Mildly elevated right ventricular systolic pressure; RVSP 38 mmHg Would recommend referral to a payroll specialist if not already done Adult Echocardiography Procedure Report Left Ventricle LVEDD (3.7 - 5.6 cm): 4.01 cm LVESD (2.2 - 4.0 cm): 2.77 cm LVIVS thickness (0.6 - 1.2 cm): 0.79 cm LVPW thickness (0.5 - 1.0 cm): 1.10 cm e': 0.22 m/s E - e': 3.38 LVOT Max Gradient: 2.23 mm[Hg] LVOT Area (cm2): 0.75 m/s Peak Velocity (LVOT): 0.75 m/s Mean Velocity (LVOT): 0.51 m/s LVOT Diameter 2.06 cm Left Atrium LA Volume Index (2D A2C): 32.33 ml/m2 Left Atrium Systolic Dimension: 3.11 cm Mitral Valve MV E to A Ratio: 1.25 Mitral Valve A-Wave Peak Velocity: 0.60 m/s Mitral Valve E-Wave Peak Velocity: 0.75 m/s Right Ventricle Aorta AO Root Diam: 3.34 cm Ascending Ao Diam: 2.46 cm Aortic Valve AoV Area (Peak Sergey): 2.29 cm2, 2.29 cm2 AoV Area (VTI): 2.36 cm2, 2.36 cm2 Peak Velocity(Antegrade Flow): 1.09 m/s Peak Gradient(Antegrade Flow): 4.75 mm[Hg] Mean Velocity(Antegrade Flow): 0.73 m/s Mean Gradient(Antegrade Flow): 2.49 mm[Hg] Velocity Time Integral: 21.01 cm Tricuspid Valve Peak Velocity (Regurgitant Flow): 2.50 m/s, 2.75 m/s Pulmonic Valve Peak Gradient: 1.41 mm[Hg], 2.88 mm[Hg] Right Atrium Right Atrium Systolic Pressure: 113.34 ml, 113.34 ml Dictated by: Mariama Joel M.D. on 03/05/2024 at 16:21 Approved by: Mariama Joel M.D. on 03/05/2024 at 16:33 Dictated By: Mraiama Joel M.D. Signed By: 03/05/24 1634 DD/ 32 TD/TT: Human Services Case Manager: Procedure Note Radiology, Radiologist, MD - 03/05/2024 [place] [address] Cardiology Report Signed Patient: TOÑITO DORADOR#: [id number] : 1975Acct:[id number] Age/Sex: 48 / MADM Date: 03/04/24 Loc: CARD Attending Dr: Shaikh Kia Woody Ordering Physician: Shaikh Bong Adam Date of Service: 03/04/24 Procedure(s): CA echo doppler complete Accession Number(s): [id number] cc: Shaikh Bong Adam Patient Name: HOANG DORADO MR#: [id number] : 1975 Exam Date: 03/04/2024 Ordering Doctor: SHAIKH Daren ADAM . ECHOCARDIOGRAM REPORT PROCEDURE: CA ECHO DOPPLER COMPLETE INDICATIONS: H/o severe tricuspid regurgitation, h/o colon cancer -chemo therapy, radiation COMPARISON: None. DESCRIPTION: COMPLETE ECHOCARDIOGRAM Real-time transthoracic echocardiography with 2D, M-mode, spectral and color flow Dopplerperformed. QUALITY: Technical quality was good. 68 , 135#, BSA 1.73 m2, BP126/80 LEFT VENTRICLE: Normal chamber size. Normal left ventricular wall thickness. D-shaped septum consistent with right ventricular pressureand/or volume overload. LV EF: Global left ventricular systolic function is normal; visually estimated ejection fraction is 60 to 65%. No significant wall motion abnormalities. DIASTOLIC: Diastolic function is normal. ATRIAL SEPTUM: Visually appears intact. LEFT ATRIUM: Normal chamber size. RIGHT ATRIUM: Severe dilatation. A prominent membrane in themidportion of the right atrium is seen likely representing a Eustachian valve. Differential diagnosis includes Cor triatriatum loida. Recommend further imaging as clinically appropriate. RIGHT VENTRICLE: Severe dilatation. Right ventricular systolicfunction is severely reduced. TRICUSPID VALVE: Normal mobility and thickness. No stenosis withsevere regurgitation. Right ventricular systolic pressure is mildly elevated;RVSP 38 mmHg MITRAL VALVE: Normal mobility and thickness. No evidence of mitralvalve stenosis. Mild mitral annular calcification. No mitral regurgitation. AORTIC VALVE: Normal trileaflet appearance. No visible sclerosis.Normal leaflet mobility. No evidence of aortic valve stenosis. No aortic regurgitation. AORTIC ROOT: Normal diameter and appearance. Ascending aorta is normalin size. PULMONIC VALVE: Normal thickness and mobility. No stenosis. No regurgitation. PERICARDIUM: No evidence of pericardial effusion. IVC: Collapses with inspirations. IVC is dilated (2.5 cm) CONCLUSION: 1. Global left ventricular systolic function is normal; visually estimated ejection fraction is 60 to 65% 2. D-shaped septum consistent with right ventricular pressure and/orvolume overload 3. The right ventricle is severely dilated with severely reduced systolic function 4. The right atrium is severely dilated; a prominent membrane in the midportion of the right atrium is seen likely representing a Eustachianvalve. Differential diagnosis includes Cor triatriatum loida. Recommendfurther imaging as clinically appropriate (e.g ONDINA, cardiac CT, or MRI). 5. Severe tricuspid regurgitation 6. Mildly elevated right ventricular systolic pressure; RVSP 38 mmHg Would recommend referral to a payroll specialist if not already done Adult Echocardiography Procedure Report Left Ventricle LVEDD (3.7 - 5.6 cm): 4.01 cm LVESD (2.2 - 4.0 cm): 2.77 cm LVIVS thickness (0.6 - 1.2 cm): 0.79 cm LVPW thickness (0.5 - 1.0 cm): 1.10 cm e': 0.22 m/s E - e': 3.38 LVOT Max Gradient: 2.23 mm[Hg] LVOT Area (cm2): 0.75 m/s Peak Velocity (LVOT): 0.75 m/s Mean Velocity (LVOT): 0.51 m/s LVOT Diameter 2.06 cm Left Atrium LA Volume Index (2D A2C): 32.33 ml/m2 Left Atrium Systolic Dimension: 3.11 cm Mitral Valve MV E to A Ratio: 1.25 Mitral Valve A-Wave Peak Velocity: 0.60 m/s Mitral Valve E-Wave Peak Velocity: 0.75 m/s Right Ventricle Aorta AO Root Diam: 3.34 cm Ascending Ao Diam: 2.46 cm Aortic Valve AoV Area (Peak Sergey): 2.29 cm2, 2.29 cm2 AoV Area (VTI): 2.36 cm2, 2.36 cm2 Peak Velocity(Antegrade Flow): 1.09 m/s Peak Gradient(Antegrade Flow): 4.75 mm[Hg] Mean Velocity(Antegrade Flow): 0.73 m/s Mean Gradient(Antegrade Flow): 2.49 mm[Hg] Velocity Time Integral: 21.01 cm Tricuspid Valve Peak Velocity (Regurgitant Flow): 2.50 m/s, 2.75 m/s Pulmonic Valve Peak Gradient: 1.41 mm[Hg], 2.88 mm[Hg] Right Atrium Right Atrium Systolic Pressure: 113.34 ml, 113.34 ml Dictated by: Mariama Joel M.D. on 03/05/2024 at 16:21 Approved by: Mariama Joel M.D. on 03/05/2024 at 16:33 Dictated By: Mariama Joel M.D. Signed By:03/05/24 1634 DD/ 32 TD/TT: Human Services Case Manager: us Shaikh [facility] Final Result documented in this encounter Visit Diagnoses Not on filedocumented in this encounter Care Teams Manager Of Tax Relationship Specialty Start Date End Date Shaikh Adam MD [address] [place] [address] PCP - General Internal Medicine 01/22/24 06/04/24 Akira Vargas MD [address] [place] [address] PCP - General Family Medicine 06/05/24 Majo Workman NP [address] [place] [id number] Nurse Practitioner Family Medicine 06/05/24 documented as of this encounter
--- OUTSIDE RECORDS SUMMARY | 2025-03-28 22:33 | XMS_ITS | Clinical Summary ---
Author Organization [facility] Address [address] [place] [address] Care Team Providers Care Refinery Operator Light Ends Recovery Name Role Phone Akira Vargas MD Primary Care Provider [phone] Majo Workman ASSURANCE SPECIALIST Unavailable [phone] Allergies No known active allergies Medications sildenafil (Viagra) 100 MG tabletIndications :Erectile dysfunction, unspecified erectile dysfunction type Take 1 tablet (100 mg) by mouth if needed for erectile dysfunction 30 tablet 2 4 Active levothyroxine (Synthroid, Levoxyl) 137 MCG tabletIndications :Hypothyroidism, unspecified type (CMS/HCC) Take 137 mcg by mouth Daily 90 tablet 1 4 Active amphetamine-dextr oamphetamine (Adderall) 10 MG tabletIndications :Attention deficit hyperactivity disorder (ADHD), predominantly hyperactive type (CMS/HCC) Take 1 tablet (10 mg) by mouth at bedtime 30 tablet 4 Active amphetamine-dextr oamphetamine XR (Adderall XR) 15 MG 24 hr capsuleIndication s:Attention deficit hyperactivity disorder (ADHD), predominantly hyperactive type (CMS/HCC) Take 1 capsule (15 mg) by mouth Daily 30 capsule 4 Active nicotine (Nicotine Step 1) 21 MG/24HR patchIndications: Tobacco dependence due to cigarettes Place 1 patch over 24 hours on the skin 1 (one) time each day at the same time 42 patch 4 Active nicotine (Nicoderm, Step 2) 14 MG/24HR patchIndications: Tobacco dependence due to cigarettes Place 1 patch over 24 hours on the skin 1 (one) time each day at the same time for 14 days 14 patch 4 Active nicotine (Nicoderm, Step 3) 7 MG/24HR patchIndications: Tobacco dependence due to cigarettes Place 1 patch over 24 hours on the skin 1 (one) time each day at the same time for 14 days 14 patch 4 Active Active Problems Problem Noted Date Diagnosed Date Long-term current use of hig h risk medication other than anticoagulant 08/05/2024 Mixed incontinence urge and stress 08/05/2024 Assessment & Plan (08/05/2024 11:14 AM EDT): States when he has to go he has very little time before he will begin to urinate on himself. Pt also reports there are times that he urinates on himself with no warning or urge. Denies urinary flow concerns. Referral sent to Urology. Tobacco dependence due to cigarettes 08/05/2024 Assessment & Plan (08/05/2024 11:19 AM EDT): Pt educated on hazardous effects of smoking and nicotine. Smoking cessation counseling provided. Nicotine patches ordered. Elevated blood pressure reading 08/05/2024 Assessment & Plan (08/05/2024 11:23 AM EDT): Elevated BP reading today in office- BP was also elevated at OV with cardiology on 06/25/24; Per cardiology's note opt was to monitor BP and report readings back to them. If elevated readings Cardiology was going to initiate medication. Will reach out to Cardiology to discuss BP and tx plan. Opioid abuse, uncomplicated 08/05/2024 Assessment & Plan (08/05/2024 11:32 AM EDT): Pt stopped taking suboxone 6 months ago, states he weaned down and stopped entirely. No longer follows with addiction medicine; Attention deficit hyperactiv ity disorder (ADHD), predominantly hyperactive type 01/22/2024 Assessment & Plan (08/05/2024 11:16 AM EDT): Was prescribed Adderall 15mg once daily in the morning and 10mg nightly by previous provider. States he has never had formal diagnosis; Pt reports he was told he was bipolar when coming out of rehab, but does not believe that diagnosis was correct because he was coming off of drugs. Pt reports taking lithium in the past, and Wellbutrin. But stopped both; States he is currently not working; Admits: Difficulty sleeping Racing thoughts Anxiety Difficulty completing tasks Excessive energy Getting very little sleep but still having a lot of energy. Sleeps 4-5 hours per day. Feels like he is bouncing off the mayo with downtime. Depression intermittently Referral sent to for formal evaluation and diagnosis, as pt symptoms may be underlying Bipolar vs ADHD. Assessment & Plan (03/28/2024 3:54 PM EDT): Symptoms well controlled on current regimen. Assessment & Plan (01/22/2024 5:55 PM EDT): Symptoms well controlled on current regimen. Left inguinal hernia 01/22/2024 Assessment & Plan (08/05/2024 11:17 AM EDT): Had inguinal hernia repair 07/03/2024- Following with Dr. Dexter Orr Is due to schedule follow up; Advised pt to keep all follow up appointments with specialists and take all medications as directed. Assessment & Plan (03/28/2024 3:57 PM EDT): Noticed pain and swelling a few weeks ago in left inguinal region. Exam indicative of left inguinal hernia. He has prior hx of repair on right side. He also had colectomy for rectal cancer. Patient reports pain that is intermittent, denies nausea, vomiting, abd distention Seen by General Surgery - awaiting cardiac MRI for pre operative clearance. Assessment & Plan (01/22/2024 5:55 PM EDT): Noticed pain and swelling a few weeks [...] if persistent/intractable pain or intractable nausea/vomiting develops. DVT (deep venous thrombosis) 10/28/2022 Overview (01/22/2024): Last Assessment & Plan: Assessment: Hx of, remote anticoagulated Denies recent episodes Rectal cancer 02/21/2022 Former smoker 02/16/2022 Overview (01/22/2024): Last Assessment & Plan: Assessment: former cigarette smoker for 25 years; quit 10/2022 wears nicotine patch History of intravenous drug abuse 02/16/2022 Overview (01/22/2024): Last Assessment & Plan: Assessment: Sober for 7 years Has Suboxone, is weaning off it ; takes every 2-3 days Rectal mass 02/16/2022 History of endocarditis 01/17/2022 Overview (01/22/2024): Last Assessment & Plan: Assessment: History of Endocarditis > 15 years ago; Hx IV drug use denies any other episodes Severe tricuspid regurgitation 01/17/2022 Overview (01/22/2024): Last Assessment & Plan: Assessment: Severe Tricuspid [...] Pt. currently is Asymptomatic Assessment & Plan (08/05/2024 11:18 AM EDT): Following closely with [facility] Cardiology. Next appointment with [facility] Cardiology 11/11/2024; Assessment & Plan (03/28/2024 3:57 PM EDT): Hx of severe TR based on an ECHO 01/18 No recent ECHO. Denies CP, SOB, palpitations or LE edema. 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 Following Cardiology now. Assessment & Plan (01/22/2024 5:53 PM EDT): Hx of severe TR based on an ECHO 01/18 No recent ECHO. Denies CP, SOB, palpitations or LE edema. Will order ECHO to assess cardiac structure. 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 Hypothyroidism 12/02/2021 Overview (01/22/2024): Last Assessment & Plan: Assessment: Managed with med, stable. Assessment & Plan (01/22/2024 5:55 PM EDT): His levothyroxine was adjusted last appt. Check TSH Immunizations Immunization Administration Dates Next Due Influenza, injectable, quadrivalent 12/01/2018 Social History Tobacco Use Types Packs/Day Years Used Date Smoking Tobacco: Former Cigarettes Passive Smoke Exposure: Past Smokeless Tobacco: Never Tobacco Cessation:Counseling Given: No Alcohol Use Standard Drinks/Week Comments Not Currently 0 (1 standard drink = 0.6 oz pur e alcohol) PHQ-2 Answer Date Recorded Patient Health Questionnaire-2 Score 0 03/28/2024 Sex and Gender Information Value Date Recorded Sex Assigned at Not on file Legal Sex Male 11:22 PM EDT Gender Identity Not on file Sexual Orientation Not on file Last Filed Vital Signs Vital Sign Reading Time Taken Comments Blood Pressure 168/98 08/05/2024 9:55 AM EDT Pulse 85 08/05/2024 9:55 AM EDT Temperature 36.2 C (97.1 F) 08/05/2024 9:55 AM EDT Respiratory Rate 16 03/04/2024 2:43 PM EDT Oxygen Saturation 97% 08/05/2024 9:55 AM EDT Inhaled Oxygen Concentration - - Weight 62.6 kg (138 lb) 08/05/2024 9:55 AM EDT Height 172.7 cm (5' 8 ) 03/28/2024 3:43 PM EDT Body Mass Index 20.98 03/28/2024 3:43 PM EDT Plan of Treatment Health Maintenance Due Date Last Done Comments CT Colonography 1975 Colonoscopy 1975 FIT-DNA 1975 FIT 1975 FOBT 1975 Influenza Vaccine (Season Ended) 2025 12/01/19 19 Colorectal Cancer Screening 10/13/2027 Sigmoidoscopy 10/13/2027 10/13/2022 Insurance [facility] Member Subscriber Plan / Payer (Ef fective 2023-Present) Name:Hoang Dorado Relation to Subscriber:Self Name:Hoang Dorado Payer ID:Not on file Type:Not on file Address: [address] Care Teams Refinery Operator Light Ends Recovery Relationship Specialty Start Date End Date Akira Vargas MD [address] [place] [id number] PCP - General Family Medicine 06/05/24 Majo Workman NP [address] [place] [address] Nurse Practitioner Family Medicine 06/05/24
--- OUTSIDE RECORDS SUMMARY | 2025-03-28 22:33 | XMS_ITS | Encounter Summary ---
Author Organization [facility] Address [address] [place] [address] Care Team Providers Care Pile Driver Operator Barge Mounted Name Role Phone Charity Pichardo RN Unavailable [phone] Mike Gonzalez MD Unavailable [phone] Temi RamirezC Unavailable [phone] Shaikh FÉLIX Adam Primary Care Provider [phone] Source Comments In the event this information is protected by the Federal Confidentiality of Alcohol and Drug AbusePatient Records regulations: The Federal rules restrict any use of the information to criminally investigate or prosecute any alcohol or drug abuse patient.[facility] Encounter Details Date Type Department Care Team (Late st Contact Info) Description 07/06/2022 Patient Msg Colorectal Surgery [address] [place] [address] Provider, [facility] sigmoidoscopy with Dr Enriquez Social History Tobacco Use Types Packs/Day Years [...] N ot on file 03/17/2022 Data from: https://[email or web address].medicine.[email or web address].[email or web address] Last address used for calculation [address] [...] documented as of this encounter Care Teams Pile Driver Operator Barge Mounted Relationship Specialty Start Date End Date Shaikh Adam MD [facility] [place] [address] PCP - General Primary Care 08/05/22 Charity Pichardo RN [address] [place] [address] Specialty Director Of Labor And Delivery Hematology/Oncology 03/01/22 06/23/24 Mike Gonzalez MD [address] [place] [address] [place] [address] Physician Hematology/Oncology 03/01/22 Temi Ramirez PA-C [address] [place] [address] Physician Real Estate Leasing Agent Hematology/Oncology 03/01/22 documented as of this encounter
--- OUTSIDE RECORDS SUMMARY | 2025-03-28 22:33 | XMS_ITS | Encounter Summary ---
Author Organization [facility] Address [address] [place] [address] Care Team Providers Care Fire Prevention Chief Name Role Phone Shaikh FÉLIX Adam Primary Care Provider [phone] Akira Vargas MD Primary Care Provider [phone] Majo Workman SAILBOAT CAPTAIN Unavailable [phone] Encounter Details Date Type Department Care Team (Late st Contact Info) Description 02/26/2024 Clinisync Result Encounter [facility] External Department Unsolicited Shaikh Adam MD [address] [place] [address] Social History Tobacco Use Types Packs/Day Years [...] Procedure Name Priority Date/Time Associated Diagnosis Comments CT ABDOMEN PELVIS W CON 02/26/2024 6:50 AM EDT documented in this encounter Results * CT ABDOMEN PELVIS W CON (02/26/2024 6:50 AM EDT) Anatomical Region Laterality Modality Other 02/26/2024 6:50 AM EDT Narrative 02/26/2024 6:52 [place] [address] CT Scan Report Signed Patient: HOANG DORADO MR#: [id number] : 1975 Acct:[id number] Age/Sex: 48 / M ADM Date: 02/24/24 Loc: CT Attending Dr: Shaikh Kia Woody Ordering Physician: Shaikh Bong Adam Date of Service: 02/24/24 Procedure(s): CT abdomen pelvis w con Accession Number(s): [id number] cc: Shaikh Bong Adam [place] [address] Patient Name: HOANG DORADO MRN: [id number] date: 1975 Sex: M Assigned Patient Location: CT Current Patient Location: Accession/Order Number: [id number] Exam Date: 02/24/2024 10:15 Report Date: 02/26/2024 06:50 At the request of: SHAIKH KIA Procedure: CT abdomen pelvis w con EXAMINATION: CT abdomen pelvis w con HISTORY: Inguinal hernia ; chronic left groin painful lump increasing in severity COMPARISON: CT abdomen pelvis 09/16/2021 TECHNIQUE: Axial, Coronal, and Sagittal images were obtained without and/or with IV contrast as indicated by examination type. Dose reduction techniques were achieved by using automated exposure control and/or adjustment of mA and/or kV according to patient size and/or use of iterative reconstruction technique. FINDINGS: LUNG BASES: No visible pulmonary or pleural disease. LIVER: Decreased density adjacent the falciform ligament suspected to represent fatty infiltration. BILIARY: No dilatation or calcification. PANCREAS: No lesion, fluid collection, or abnormal duct dilatation. SPLEEN: No enlargement or focal lesion. ADRENALS: No mass or enlargement. KIDNEYS: No mass, obstruction, or calcification. BOWEL/MESENTERY: Focal dilated segment of small bowel within anterior left abdomen; transient small bowel intussusception versus prior resection and anastomosis. Resection and anastomosis also suspected near the sigmoid-rectal junction. No visible mass, obstruction, or bowel wall thickening. Normal appendix. AORTA/VASCULAR: No aneurysm or dissection. RETROPERITONEUM: No mass or adenopathy. LYMPH NODES: No adenopathy. URINARY BLADDER: No visible focal wall thickening, lesion, or calculus. PELVIC ORGANS: No visible mass. Pelvic organs appropriate for patient age. ABDOMINAL WALL: Short segment of small bowel extending into left inguinal canal. Prior right inguinal hernia repair. BONES: No bony lesion or fracture. OTHER: Negative. CT/CT abdomen pelvis w con IMPRESSION: 1. Small left inguinal hernia containing a short segment of small bowel; no obstruction or inflammatory changes. Electronically authenticated by: HERMANN HESTER Date: 02/26/2024 06:50 Dictated By: Hermann Hester M.D. Signed By: 02/26/2452 DD/ TD/TT: Forest Examiner: Procedure Note Radiology, Radiologist, MD - 02/26/2024 [place] [address] CT Scan Report Signed Patient: ALBA DORADO#: [id number] : 1975Acct:[id number] Age/Sex: 48 / MADM Date: 02/24/24 Loc: CT Attending Dr: Shaikh Kia Woody Ordering Physician: Shaikh Bong Adam Date of Service: 02/24/24 Procedure(s): CT abdomen pelvis w con Accession Number(s): [id number] cc: Shaikh Bong Adam [place] [address] Patient Name: HOANG DORADO MRN: [id number] date: 1975 Sex: M Assigned Patient Location: CT Current Patient Location: Accession/Order Number: [id number] Exam Date: 02/24/2024 10:15 Report Date: 02/26/2024 06:50 At the request of: SHAIKH KIA Procedure: CT abdomen pelvis w con EXAMINATION: CT abdomen pelvis w con HISTORY: Inguinal hernia ; chronic left groin painful lump increasing in severity COMPARISON: CT abdomen pelvis 09/16/2021 TECHNIQUE: Axial, Coronal, and Sagittal images were obtained withoutand/or with IV contrast as indicated by examination type. Dose reductiontechniques were achieved by using automated exposure control and/or adjustment of mA and/or kV according to patient size and/or use of iterative reconstruction technique. FINDINGS: LUNG BASES: No visible pulmonary or pleural disease. LIVER: Decreased density adjacent the falciform ligament suspected to represent fatty infiltration. BILIARY: No dilatation or calcification. PANCREAS: No lesion, fluid collection, or abnormal duct dilatation. SPLEEN: No enlargement or focal lesion. ADRENALS: No mass or enlargement. KIDNEYS: No mass, obstruction, or calcification. BOWEL/MESENTERY: Focal dilated segment of small bowel within anterior left abdomen; transient small bowel intussusception versus prior resection and anastomosis. Resection and anastomosis also suspected near thesigmoid-rectal junction. No visible mass, obstruction, or bowel wall thickening. Normal appendix. AORTA/VASCULAR: No aneurysm or dissection. RETROPERITONEUM: No mass or adenopathy. LYMPH NODES: No adenopathy. URINARY BLADDER: No visible focal wall thickening, lesion, or calculus. PELVIC ORGANS: No visible mass. Pelvic organs appropriate for patient age. ABDOMINAL WALL: Short segment of small bowel extending into left inguinal canal. Prior right inguinal hernia repair. BONES: No bony lesion or fracture. OTHER: Negative. CT/CT abdomen pelvis w con IMPRESSION: 1. Small left inguinal hernia containing a short segment of small bowel;no obstruction or inflammatory changes. Electronically authenticated by: HERMANN HESTER Date: 02/26/2024 06:50 Dictated By: Hermann Hester M.D. Signed By:02/26/24 0652 DD/ 0650 TD/TT: Forest Examiner: us Shaikh Kia [facility] Final Result documented in this encounter Visit Diagnoses Not on filedocumented in this encounter Care Teams Fire Prevention Chief Relationship Specialty Start Date End Date Shaikh Adam MD [address] [place] [address] PCP - General Internal Medicine 01/22/24 06/04/24 Akira Vargas MD [address] [place] [id number] PCP - General Family Medicine 06/05/24 Majo Workman NP [address] [place] [address] Nurse Practitioner Family Medicine 06/05/24 documented as of this encounter
--- OUTSIDE RECORDS SUMMARY | 2025-03-28 22:33 | XMS_ITS | Encounter Summary ---
Author Organization [facility] Address [address] [place] [id number] Care Team Providers Care Childbirth Educator Name Role Phone Charity Pichardo RN Unavailable [phone] Mike Gonzalez MD Unavailable [phone] Temi RamirezC Unavailable [phone] Shaikh FÉLIX Adam Primary Care Provider [phone] Source Comments In the event this information is protected by the Federal Confidentiality of Alcohol and Drug AbusePatient Records regulations: The Federal rules restrict any use of the information to criminally investigate or prosecute any alcohol or drug abuse patient.[facility] Encounter Details Date Type Department Care Team (Late st Contact Info) Description 09/27/2022 Patient Msg Colorectal Surgery [address] [place], [place] [id number] Provider, [facility] sigmoidoscopy Social History Tobacco Use Types Packs/Day Years [...] N ot on file 03/17/2022 Data from: https://www.neighborhoodatlas.medicine.[facility].edu/. Last address used for calculation [...] of Assessment Author No 02/24/2022 4:57 PM MARYT Clovis Govea RN * Do you have [...] documented as of this encounter Care Teams Childbirth Educator Relationship Specialty Start Date End Date Shaikh Adam MD [facility] [facility] [place] [address] PCP - General Primary Care 08/05/22 Charity Pichardo RN [address] [place] [address] Specialty Chemical Analyst Hematology/Oncology 03/01/22 06/23/24 Mike Gonzalez MD [address] [facility] [place] [address] Physician Hematology/Oncology 03/01/22 Temi Ramirez PA-C [address] [place] [address] Physician Linoleum Tile Floor Layer Hematology/Oncology 03/01/22 documented as of this encounter
--- OUTSIDE RECORDS SUMMARY | 2025-03-28 22:35 | XMS_ITS | CCD ---
Author Organization [facility] Care Team Providers Care Payable Representative Name Role Phone Unavailable Primary Care Provider Unavailabl e Marino STATON, Charity Shelton Unavailable [phone] Oscar Gonzalez MD Unavailable [phone] Temi Ramirez PA-C Unavailable [phone] Charity Pichardo RN Unavailable Oscar Gonzalez MD Unavailable Temi Ramirez PA-C Unavailable [phone] Charity Pichardo RN Unavailable Oscar Gonzalez MD Unavailable Shaikh Adam MD Primary Care Provider REQUEST, NONE LISTED Primary Care Unavaila ble PAY, DR CARROLL Admitting Unavailable PAY, DR CARROLL Attending Unavailable PAY, DR CARROLL Consulting Unavailable Kelly Hernandez Consulting Unavailable FAWWAD, BUCHANAN H Admitting Unavailable FAWWAD, BUCHANAN H Attending Unavailable FAWWAD, BUCHANAN H Primary Care Unavailable FAWWAD, BUCHANAN H Consulting Unavailable FAWWAD, BUCHANAN H Admitting Unavailable FAWWAD, BUCHANAN H Attending Unavailable KINGWWAJoby, BUCHANAN H Primary Care Unavailable REQUEST, NONE LISTED Primary Care Unavaila ble TRE GARCIA Admitting Unavailable TRE GARCIA Attending Unavailable TRE GARCIA Consulting Unavailable KANU CARNEY Consulting Unavailable Charity Pichardo RN Unavailable [phone] Oscar Gonzalez MD Unavailable [phone] James MOORE, Temi Sally Unavailable Kia HEARD [facility] Primary Care Provider [phone] ANA ENRIQUEZ Referring Unavailable [facility] Primary Care Unavailable ANA ENRIQUEZ Referring Unavailable CAMELIA THOMASON Attending Unavailable [facility] Primary Care Unavailable PROVIDER, UNKNOWN Referring Unavailable Charity Pichardo RN Unavailable ISABELLA CRAMER Referring Unavailable LEONOR DUFFY Attending Unavailable ISABELLA CRAMER Attending Unavailable Kia HEARD, [facility] Primary Care Provider DEXTER ELLIOTT Admitting Unavailable DEXTER ELLIOTT Attending Unavailable [facility] Primary Care Unavailable Charity Pichardo RN Unavailable Unavailable Primary Care Provider UnavailSHAIKH Silvestre Attending Unavailable ABBY GARSIA Attending Unavailable [facility] [place] Attending Unavailable ESTHER WORKMAN Attending UnavailMICKIE Vail Attending Unavailable DARÍO STRATTON Referring Unavailable [facility] Primary Care Unavailable Akira Vargas MD Primary Care Provider [phone] Esther Workman NP Unavailable [phone] DEXTER ELLIOTT Referring Unavailable [facility] [place] Primary Care Unavailable DEXTER ELLIOTT Attending Unavailable SELF Referring Unavailable [facility] Primary Care Unavailable MS. ESTHER WORKMAN Primary Care P jessica ESTHER WORKMAN Referring UnavailKETTY Santos Attending Unavailable ESTHER WORKMAN Primary Care UnavailESTHER Isabel Primary Care Unavailabl e Medications Current Medications Medication Drug Class(es) Dates Sig (Normalized) Sig (Original) acetaminophen 500 mg oral tablet (20 sources) Start: 02-24-2022 take 2 tablets by mouth every six hours acetaminophen (TYLENOL) 500 mg tablet Take 2 tablets by mouth every 6 hours. 02/24/2022 Active Comment on above: Take 2 tablets by [facility] every 6 hours. amLODIPine 5 mg oral tablet (4 sources) Dihydropyridine Calcium Channel Linda Start: 08-07-2024 End: 02-03-2025 amLODIPine 5 mg Tab 5 mg = 1 tab(s), Refills(s) 0 Start Date: 08/28/24 Status: Ordered 24 hr amphetamine aspartate 3.75 mg / amphetamine sulfate 3.75 mg / dextroamphetamine saccharate 3.75 mg / dextroamphetamine sulfate 3.75 mg extended release oral capsule (17 sources) Central Nervous System Stimulant Start: 05-21-2024 End: 07-22-2024 take 1 capsule by mouth once daily amphetamine-dextr oamphetamine XR (ADDERALL XR) 15 mg capsule Indications: Pre-op examination Take 1 capsule by mouth once daily for 30 days. 0 06/22/2024 Active Start: 05-21-2024 End: 07-18-2024 take 1 tablet by mouth at bedtime amphetamine-dextroamphetamine (Adderall) 10 MG tablet Indications: Attention deficit hyperactivity disorder (ADHD), predominantly hyperactive type (CMS/HCC) Take 1 tablet (10 mg) by mouth at bedtime 30 tablet 06/18/2024 Active buprenorphine 8 mg / naloxone 2 mg sublingual film (20 sources) Partial Opioid Agonist, Opioid Antagonist Start: 07-18-2023 End: 08-05-2024 Buprenorphine HCl-Naloxone HCl (Suboxone) 8-[address] 1 Film under the tongue in the morning. 07/18/2023 08/05/2024 Discontinued (Therapy completed) Start: 01-16-2023 End: 06-22-2024 buprenorphine-naloxone (SUBO XONE) 8-2 mg film DISSOLVE 2 (TWO) films UNDER THE TONGUE DAILY 01/16/2023 06/22/2024 Discontinued Start: 11-23-2021 End: 02-04-2022 buprenorphine-naloxone (SUBO XONE) 8-[address] 2 (TWO) films UNDER THE TONGUE DAILY 0 11/23/2021 02/04/2022 Discontinued Comment on above: place 2 (TWO) films UNDER THE TONGUE DAILY DISSOLVE 2 (TWO) bubba ms UNDER THE TONGUE DAILY 0.4 ml enoxaparin sodium 100 mg/ml prefilled syringe (16 sources) Low Molecular Weight Heparin Start: 11-07-19 End: 12-03-19 inject 0.4 mL by subcutaneous injection once [...] subcut aneously once daily for 21 days. enteric contrast (will be provided with radiology test) (20 sources) Start: 10-04-2022 enteric contrast (will be provided with radiology test) Indications: Malignant neoplasm of rectum (HCC) For CT ABD/PEL W IVCON Routine order Administer, As Directed One Time Only, via Oral, Rectal, both Oral and Rectal, Enteric Tube, Stoma or Indwelling Catheter, Enteric Contrast as designated per enteric contrast guidelines 1 Each 10/04/2022 Active Start: 10-04-[address] (will be provided with radiology test) Indications: [...] CT contrast administration guidelines link. 1 Each 10/04/2022 Active Start: 10-04-2022 iv contrast (w ill be provided with radiology test) Indications: Malignant [...] contrast administration guidelines link. lactobacillus rhamnosus gg [id number] unt oral capsule (20 sources) Start: 022 End: 023 take 1 capsule by mouth once daily lactobacillus rhamnosus (CULTURELLE) 10 billion cell capsule Take 1 capsule by mouth once daily. 30 capsule 02/22/2023 Active Comment on above: Take 1 capsule by mo ut once daily. levothyroxine sodium 0.137 mg oral tablet (20 sources) l-Thyroxine Start: 024 levothyroxine 137 mcg (0.137 mg) Tab 137 mcg = 1 tab(s), Refills(s) 0 Start Date: 08/28/24 Status: Ordered Start: 03-28-2024 End: 09-24-2024 take 1 tablet by mouth once daily levothyroxine (Synthroid, Levoxyl) 137 MCG tablet Indications: Hypothyroidism, unspecified type (CMS/HCC) Take 137 mcg by mouth Daily 90 tablet 1 03/28/2024 09/24/2024 Active Start: 11-01-2021 take 1 tablet by kevin once daily levothyroxine (SYNTHROID) 125 mcg tablet Take 125 mcg by mouth once daily. 11/01/2021 Active Comment on above: Take 125 mcg by mout h once daily. loratadine 10 mg oral tablet (20 sources) Start: take 1 tablet by mouth once daily loratadine (CLARITIN) 10 mg tablet Take 10 mg by mouth once daily. 02/08/2022 Active Comment on above: Take 10 mg by mouth once daily. 24 hr nicotine 0.875 mg/hr transdermal system (20 sources) Cholinergic Nicotinic Agonist Start: 4 nicotine 21 mg/24 hr Transderm ER Film 1 patch(es), Refill(s) 0 Start Date: 08/28/24 Status: Ordered Start: 08-05-2024 End: 08-19-2024 nicotine (Nicoderm, Step 2) 14 MG/24HR patch Indications: Tobacco dependence due to cigarettes Place 1 patch over 24 hours on the skin 1 (one) time each day at the same time for 14 days 14 patch 08/05/2024 08/19/2024 Active Start: 08-05-2024 End: 09-16-2024 nicotine (Nicotine Step 1) 2 1 MG/24HR patch Indications: Tobacco dependence due to cigarettes Place 1 patch over 24 hours on the skin 1 (one) time each day at the same time 42 patch 08/05/2024 09/16/2024 Active Start: 08-05-2024 End: 08-19-2024 nicotine (Nicoderm, Step 3) 7 MG/24HR patch Indications: Tobacco dependence due to cigarettes Place 1 patch over 24 hours on the skin 1 (one) time each day at the same time for 14 days 14 patch 08/05/2024 08/19/2024 Active Start: 07-15-2022 End: 06-22-2024 apply 1 dose transdermal route every twenty-four hours nicotine (NICODERM) 21 mg/24 hr Apply 1 Patch as directed every 24 hours. 30 Patch 1 07/15/2022 06/22/2024 Discontinued Start: 02-25-2022 End: 07-24-2022 apply 1 dose transdermal route once daily nicotine (NICODERM) 21 mg/24 hr Apply 1 Patch as directed once daily. 30 Patch 0 06/24/2022 07/15/2022 Discontinued (Course of therapy completed) Comment on above: Apply 1 Patch as dir ected once daily. Apply 1 Patch as dir ected every 24 hours. oxyCODONE hydrochloride 5 mg oral tablet (3 sources) Opioid Agonist Start: 3 End: 3 take 1 tablet by mouth every six hours as needed oxyCODONE IR (ROXICODONE) 5 mg immediate release tablet Indications: Post-op pain Take 1 tablet by mouth every 6 hours as needed for up to 7 days. 20 tablet 0 02/22/2023 03/01/2023 Active Comment on above: Take 1 tablet by ekvin every 6 hours as needed for up to 7 days. pantoprazole 40 mg delayed release oral tablet (1 source) Proton Pump Inhibitor Start: 2 End: 2 take 1 tablet by mouth once daily, [...] above: Take 1 tablet by kevin th DAILY (6 AM). sildenafil 100 mg oral tablet (5 sources) Phosphodiesterase 5 Inhibitor Start: 08-28-2024 sildenafil 100 mg Tab 100 mg = 1 tab(s), Refills(s) 0 Start Date: 08/28/24 Status: Ordered Start: 11-06-2023 sildenafil (Vi agra) 100 MG tablet Indications: Erectile dysfunction, unspecified erectile dysfunction type Take 1 tablet (100 mg) by mouth if needed for erectile dysfunction 30 tablet 2 11/06/2023 Active Completed/Discontinued Medications Medication Drug Class(es) Dates Sig (Normalized) Sig (Original) atorvastatin 10 mg oral tablet (20 sources) HMG-CoA Reductase Inhibitor Start: 02-08-2022 End: 06-22-2024 take 1 tablet by mouth once daily atorvastatin (LIPITOR) 10 mg tablet Take 10 mg by mouth once daily. 02/08/2022 06/22/2024 Discontinued Comment on above: Take 10 mg by mouth once daily. bacillus coagulans [id number] unt / inulin 250 mg oral capsule (20 sources) Start: 02-24-2022 End: 08-16-2022 take 1 capsule by mouth once daily PROBIOTIC FORMULA, INULIN, 1 billion-250 cell-mg cap Take 1 capsule by mouth once daily. 0 02/24/2022 08/16/2022 Discontinued (Discontinued by Patient) Comment on above: Take 1 capsule by mo [facility] once daily. 24 hr buPROPion hydrochloride 300 mg extended release oral tablet (20 sources) Aminoketone Start: 04-22-2022 End: 06-22-2024 take 1 tablet by mouth once daily [...] HR. cyclobenzaprine hydrochloride 5 mg oral tablet (8 sources) Muscle Relaxant Start: End: take 1 tablet by mouth three times daily cyclobenzaprine (FLEXERIL) 5 mg tablet Take 1 tablet by mouth three times daily. 20 tablet 02/22/2023 06/22/2024 Discontinued Comment on above: Take 1 tablet by kevin th three times daily. Food Supplement, Lactose-Free (PROMOTE, OSMOLITE, TWO CADEN, ENSURE PLUS, ENLIVE) liqd (19 sources) Start: End: take 237 mL by mouth three times daily at mealtime Food Supplement, Lactose-Free (PROMOTE, OSMOLITE, TWO CADEN, ENSURE PLUS, ENLIVE) liqd Take 237 mL by mouth three times daily with meals. [id number] mL 08/05/2022 11/12/2022 Discontinued Start: 08-05-2022 End: 11-12-2022 take 237 mL by mouth three times daily at mealtime Food Supplement, Lactose-Free (PROMOTE, OSMOLITE, TWO CADEN, ENSURE PLUS, ENLIVE) liqd Take 237 mL by mouth three times daily with meals. [id number] mL 0 08/05/2022 11/12/2022 Discontinued Start: 08-05-2022 take 237 mL by mouth three times daily at mealtime Food Supplement, Lactose-Free (PROMOTE, OSMOLITE, TWO CADEN, ENSURE PLUS, ENLIVE) liqd Take 237 mL by mouth three times daily with meals. 35220 mL 0 08/05/2022 Active Start: 08-05-2022 End: 09-04-2022 take 237 mL by mouth three times daily at mealtime Food Supplement, Lactose-Free (PROMOTE, OSMOLITE, TWO CADEN, ENSURE PLUS, ENLIVE) liqd Take 237 mL by mouth three times daily with meals. 28643 mL 0 08/05/2022 09/04/2022 Active Comment on [...] on above: Take 1 capsule by mo uth every 8 hours for 14 days. ibuprofen 400 mg oral tablet (20 sources) Nonsteroidal Anti-inflammatory Drug Start: 3 End: 4 take 1 tablet by mouth every eight hours ibuprofen (MOTRIN) 400 mg tablet Take 1 tablet by mouth every 8 hours. 20 tablet 02/23/2023 06/22/2024 Discontinued Start: 11-12-2022 End: 12-12-2022 take 2 tablets [...] 6 hours as needed for pain. Active End: 08-16-2022 Ibuprofen 200 mg cap [...] tablet by kevin th every 8 hours. loperamide hydrochloride 2 mg oral capsule (10 sources) Opioid Agonist Start: 2022 take 1 capsule by mouth twice daily before mealtime loperamide (IMODIUM) 2 mg cap(s) Indications: High output ileostomy (HCC) Take 1 capsule by mouth twice daily before meals (0600/1600). 60 capsule 2 12/06/2022 Active Comment on above: Take 1 capsule by mo uth twice daily before meals (0600/1600). metroNIDAZOLE 500 mg oral tablet (17 sources) Nitroimidazole Antimicrobial Start: 2020 End: 2021 take 1 tablet by mouth three times [...] oral tablet (15 sources) Aminoglycoside Antibacterial Start: 2021 End: 2021 neomycin 500 mg tablet Take 2 tablets by mouth as directed. Take 2 tablet at 6pm, 7pm, and 11pm the evening prior to surgery. 6 tablet 0 01/18/2022 02/24/2022 Discontinued Comment on above: Take 2 tablets by mo [facility] as directed. Take 2 tablet at 6pm, 7pm, and 11pm the evening prior to surgery. ondansetron 8 mg oral tablet (20 sources) Serotonin-3 Receptor Antagonist Start: 2021 End: 2023 take 1 tablet by mouth every eight hours as needed ondansetron (ZOFRAN) 8 mg tablet Take 1 tablet by mouth every 8 hours as needed for nausea/vomiting. 90 tablet 2 03/01/2022 06/22/2024 Discontinued Comment on above: Take 1 tablet by kevin th every 8 hours as needed for nausea/vomiting. perflutren lipid microspheres 1.3 mL in NaCl (PF) 0.9% 10 mL injection (DEFINITY) (20 sources) Start: 2021 End: 2022 perflutren lipid microspheres 1.3 mL in NaCl (PF) 0.9% 10 mL injection (DEFINITY) prochlorperazine 10 mg oral tablet (20 sources) Phenothiazine Start: 2021 End: 2023 take 1 tablet by mouth every six hours as needed prochlorperazine (COMPAZINE) 10 mg tablet Take 1 tablet by mouth every 6 hours as needed. 100 tablet 2 07/15/2022 06/22/2024 Discontinued Comment on above: Take 1 tablet by kevin th every 6 hours as needed. QUEtiapine 50 mg oral tablet (5 sources) Atypical Antipsychotic Start: 2021 End: 2021 take 1 tablet by mouth once daily at bedtime QUEtiapine (SEROQUEL) 50 mg tablet Take 50 mg by mouth daily at bedtime. 0 11/01/2021 02/04/2022 Discontinued Comment on above: Take 50 mg by mouth daily at bedtime. 125 ml sodium chloride 9 mg/ml prefilled syringe (20 sources) Start: 2021 End: 2022 sodium chloride 0.9 % (flush) 10 mL (BD POSIFLUSH) traMADol hydrochloride 50 mg oral tablet (20 sources) Opioid Agonist Start: 2022 End: 2022 take 1 tablet by mouth every eight [...] Classification Problem Date Documented Da te Episodic/Chronic Administrative/social admission (1 source) Patient encounter status; Translations: [Other specified counseling] Episodic Attention-deficit, conduct, and disruptive behavior disorders (16 sources) Attention deficit hyperactivity disorder; Translations: [Attention-deficit hyperactivity disorder, predominantly hyperactive type] Onset: 4 06-23-2024 Chronic Cancer of rectum and anus (20 sources) Malignant tumor of rectum; Translations: [Malignant neoplasm of rectum] Onset: 2 Chronic Cancer of rectum and anus (1 source) Personal history of other malignant neoplasm of rectum, rectosigmoid junction, and anus; Translations: [Encounter for follow-up surveillance of rectal cancer] Onset: 3 Episodic Cardiac and circulatory congenital anomalies (20 sources) Right ventricular abnormality; Translations: [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] Onset: 2 01-17-2022 Chronic Disorders of lipid metabolism (1 source) Hyperlipidemia, unspecified; Translations: [HYPERLIPIDEMIA UNSPECIFIED] Onset: 2 Chronic Diverticulosis and diverticulitis (1 source) Diverticulitis of large intestine with perforation and abscess without bleeding; Translations: [DVTRCLI LG INT W/PERF ABSC NO BLEED] Onset: 1 Chronic Essential hypertension (1 source) Essential hypertension; Translations: [Essential (primary) hypertension] 08-07-2024 Chronic Genitourinary symptoms and ill-defined conditions (4 sources) Incontinence; Translations: [Mixed incontinence] Onset: 4 08-05-2024 Chronic Heart valve disorders (20 sources) Rheumatic tricuspid insufficiency; Translations: [Diseases of tricuspid valve] Onset: 2 01-17-2022 Chronic Nutritional deficiencies (20 sources) Deficiency of macronutrients; Translations: [Unspecified severe protein-calorie malnutrition] Onset: 2 02-22-2022 Chronic Other aftercare (3 sources) Surgical [...] Translations: [Follow-up examination after colorectal surgery] Onset: 2 Episodic Other aftercare (1 source) Encounter for follow-up examination after completed treatment for malignant neoplasm; Translations: [Encounter for follow-up surveillance of rectal cancer] Onset: 3 Episodic Other aftercare (4 sources) Drug therapy finding; Translations: [Other residential (current) drug therapy] Onset: 4 08-05-2024 Episodic Other circulatory disease (8 sources) Depression of left ventricular systolic function; Translations: [Other specified symptoms and signs involving the circulatory and respiratory systems] Onset: 4 06-25-2024 Episodic Other circulatory disease (3 sources) Elevated blood pressure; Translations: [Elevated blood-pressure reading, without diagnosis of hypertension] Onset: 4 06-25-2024 Episodic Other circulatory disease (1 source) Other specified symptoms and signs involving the circulatory and respiratory systems; Translations: [Depressed left ventricular ejection fraction] Onset: 4 Episodic Other circulatory disease (1 source) Elevated blood-pressure reading, without diagnosis of hypertension; Translations: [Elevated blood pressure reading] Onset: 4 Episodic Other gastrointestinal disorders (2 sources) Colostomy present; Translations: [Colostomy status] Chronic Other gastrointestinal disorders (1 source) High [...] pain; Translations: [Other acute postprocedural pain] Episodic Other nervous system disorders (1 source) Other acute postprocedural pain; Translations: [Acute post-operative pain] Onset: 3 Episodic Other screening for suspected conditions (not mental disorders or infectious disease) (4 sources) Abnormal electrocardiogram [ECG] [EKG]; Translations: [Abnormal findings on diagnostic imaging of heart and coronary circulation] Onset: 4 Episodic Kaye-; endo-; and myocarditis; cardiomyopathy (except that caused by tuberculosis or sexually transmitted disease) (9 sources) Arrhythmogenic right ventricular dysplasia; Translations: [Other cardiomyopathies] Onset: 4 06-25-2024 Chronic Pulmonary heart disease (9 sources) Pulmonary arterial hypertension; Translations: [Secondary pulmonary arterial hypertension] Onset: 4 06-25-2024 Chronic Substance-related disorders (20 sources) History of intravenous drug abuse; Translations: [Other psychoactive substance abuse, in remission] Onset: 1 Chronic Thyroid disorders (20 sources) Hypothyroidism, unspecified; Translations: [Hypothyroidism] Onset: 2 Chronic Past or Other Problems Problem Classification Problem Date Documented Da te Episodic/Chronic Abdominal hernia (6 sources) Left inguinal hernia ; Translations: [Unilateral inguinal hernia, without obstruction or gangrene, not specified as recurrent] Onset: 01-22-2024 06-13-2024 Episodic Abdominal pain (3 sources) Unspecified abdominal pain; Translations: [UNSPECIFIED ABDOMINAL PAIN] Onset: 09-16-2021 Episodic Anal and rectal conditions (20 sources) Rectal mass; Translations: [Other specified diseases of anus and rectum] Onset: 02-16-2022 Episodic Immunizations and screening for infectious disease [...] 09-20-2021 Episodic Other aftercare (1 source) Other technician terminal and repeater (current) drug therapy; Translations: [OTH INFANTRY OFFICER CURRENT DRUG THERAPY] Onset: 08-31-2021 Episodic Other circulatory disease (20 sources) History of endocarditis; Translations: [Personal history of other diseases of the circulatory system] Onset: 01-17-2022 01-17-2022 Episodic Other circulatory disease (2 sources) Personal history of other diseases of the circulatory system; Translations: [History of endocarditis] Onset: 01-17-2022 Episodic Other gastrointestinal disorders (16 sources) Ileostomy present; Translations: [Encounter for attention to ileostomy] Onset: 02-20-2023 Resolved: 06-23-2024 Chronic Other gastrointestinal disorders (3 sources) Diarrhea, unspecified; Translations: [DIARRHEA UNSPECIFIED] Onset: 08-27-2021 Episodic Phlebitis; thrombophlebitis and thromboembolism (20 sources) Acute deep vein thrombosis of lower limb; Translations: [Acute embolism and thrombosis of unspecified deep veins of unspecified proximal lower extremity] Onset: 10-28-2022 Episodic Residual codes; unclassified (18 sources) History of intravenous drug abuse; Translations: [Personal history of other specified conditions] Onset: 02-16-2022 02-16-2022 Episodic Screening and history of mental health and substance abuse codes (20 sources) Ex-smoker; Translations: [Personal history of nicotine dependence] Onset: 02-16-2022 Episodic Results Test Name Value Interpretation Reference Range Facility [facility] 08-14-2024 [facility] -------- HOANG DORADO ([id number]) 1975 M Date Time Provider Department 08/14/[address] [facility] During your visit today, we recorded the following information about you: Andreea Sy 08/14/2024 7:43 AM Signed Patient called regarding FMLA and returning back to work surgery was 07/03 did not come back for post operative visit return call to [phone] Harper Najera OCCA 08/14/2024 11:18 AM Signed Return to work letter forwarded to the patient thru My Chart on 08/14/24. Allergies As of Date: 08/14/2024 (No Known Allergies) Date Reviewed: 07/03/2024 Reviewed by: Ketty Baum, RN - Fully Assessed Prescriptions as of 08/14/2024 - amLODIPine (NORVASC) 5 mg tablet Take 1 tablet by mouth once daily. - amphetamine-dextroamphet amine XR (ADDERALL XR) 15 mg capsule Take 1 capsule by mouth once daily for 30 days. - lactobacillus rhamnosus (CULTURELLE) 10 billion cell capsule Take 1 capsule by mouth once daily. - ibuprofen (MOTRIN) 200 mg tablet Take 200 mg by mouth every 6 hours as needed for pain. - iv contrast (will be provided with [...] as designated per enteric contrast guidelines - loratadine (CLARITIN) 10 mg tablet Take 10 mg by mouth once daily. - acetaminophen (TYLENOL) 500 mg tablet Take 2 tablets by mouth every 6 hours. - levothyroxine (SYNTHROID) 125 mcg tablet Take 125 mcg by mouth once daily. Problem List As Of Date 08/14/2024 Noted Resolved History of endocarditis [Z86.79] 01/17/2022 Severe tricuspid regurgitation [I07.1] 01/17/2022 Abnormality of right ventricle of heart [Q20.8] 01/17/2022 Red blood cell antibody positive [R76.8] 02/09/2022 History of intravenous drug abuse (HCC) [Z87.89*02/16/2022 Former smoker [Z87.891] 02/16/2022 Rectal mass [K62.89] 02/16/2022 Rectal cancer (HCC) [C20] 02/21/2022 Severe protein-calorie malnutrition (HCC) [E43] 02/22/2022 Malaise and fatigue [R53.81, R53.83] 07/15/2022 Hypothyroidism unspecified [E03.9] 12/02/2021 DVT (deep venous thrombosis) (HCC) [I82.409] 10/28/2022 Attention to ileostomy (HCC) [Z43.2] 02/20/2023 06/23/2024 Attention deficit hyperactivity disorder (ADHD)*01/22/2024 Secondary pulmonary arterial hypertension (HCC)*06/25/2024 Arrhythmogenic right ventricular dysplasia (HCC*06/25/2024 Depressed left ventricular ejection fraction [R*06/25/2024 Encounter Status:Closed by HARPER NAJERA on 08/14/24 [facility] 08-05-2024 CNPN Telephone ([place]) -------- HOANG DORADO ([id number]) 1975 M Date Time Provider Department 08/05/24 MICKIE GRAHAM During your visit today, we recorded the following information about you: Pretty Capellan 08/05/2024 11:56 AM Signed Eliseo [facility] called in stating pt was in office today blood pressure was 168/98 Esther Workman is the nurse practitioner she would like to know if Dr Graham is going to start this pt on therapy or if she should do it please call and advise the office @[phone] Pablito Brooks, SHEMAR 08/05/2024 1:24 PM Signed LVMOP at office informing that Dr. Vaca is out of office until tomorrow and that clinical judgement should be used to serve the patient best as provider sees fit. Will review with Dr. Vaca upon return and routing this encounter to him. SHEMAR Marte Eric, RN 08/07/2024 10:23 AM Signed Spoke over the phone to patient's SO Elsa, and relayed Dr. Vaca's message: Blood pressure has been consistently elevated. Prescribed amlodipine 5 mg daily. This should not impact his right ventricle and may actually improve his right sided pressures. SO states understanding. Adjusted order for new pharmacy per request to Eliseo Aguirre [place], and pended back to Dr. Vaca. Pablito Brooks RN Allergies As of Date: 08/05/2024 (No Known Allergies) Date Reviewed: 07/03/2024 Reviewed by: Ketty Baum RN - Fully Assessed Reason for Visit: Patient Update [1234] Primary Visit Diagnosis:Primary hypertension [I10] Order(s):amLODIPine (NORVASC) 5 mg tabletTake 1 tablet by mouth once daily.Disp: 90 tabletRfl: 1 Prescriptions as of 08/07/2024 - amLODIPine (NORVASC) 5 mg tablet Take 1 tablet by mouth once daily. - amphetamine-dextroamphet amine XR (ADDERALL XR) 15 mg capsule Take 1 capsule by mouth once daily for 30 days. - lactobacillus rhamnosus (CULTURELLE) 10 billion cell capsule Take 1 capsule by mouth once daily. - ibuprofen (MOTRIN) 200 mg tablet Take 200 mg by mouth every 6 hours as needed for pain. - iv contrast (will be provided with [...] as designated per enteric contrast guidelines - loratadine (CLARITIN) 10 mg tablet Take 10 mg by mouth once daily. - acetaminophen (TYLENOL) 500 mg tablet Take 2 tablets by mouth every 6 hours. - levothyroxine (SYNTHROID) 125 mcg tablet Take 125 mcg by mouth once daily. Problem List As Of Date 08/05/2024 Noted Resolved History of endocarditis [Z86.79] 01/17/2022 Severe tricuspid regurgitation [I07.1] 01/17/2022 Abnormality of right ventricle of heart [Q20.8] 01/17/2022 Red blood cell antibody positive [R76.8] 02/09/2022 History of intravenous drug abuse (HCC) [Z87.89*02/16/2022 Former smoker [Z87.891] 02/16/2022 Rectal mass [K62.89] 02/16/2022 Rectal cancer (HCC) [C20] 02/21/2022 Severe protein-calorie malnutrition (HCC) [E43] 02/22/2022 Malaise and fatigue [R53.81, R53.83] 07/15/2022 Hypothyroidism unspecified [E03.9] 12/02/2021 DVT (deep venous thrombosis) (HCC) [I82.409] 10/28/2022 Attention to ileostomy (HCC) [Z43.2] 02/20/2023 06/23/2024 Attention deficit hyperactivity disorder (ADHD)*01/22/2024 Secondary pulmonary arterial hypertension (HCC)*06/25/2024 Arrhythmogenic right ventricular dysplasia (HCC*06/25/2024 Depressed left ventricular ejection fraction [R*06/25/2024 Prescriptions ordered this encounter Disp Refills Start End AMLODIPINE 5 MG TABLET 90 t* 1 08/07/2024 08/07/2024 Route: ORAL Sig: Take 1 tablet by mouth once daily. AMLODIPINE 5 MG TABLET 90 t* 1 08/07/2024 02/03/2025 Route: ORAL Sig: Take 1 tablet by mouth once daily. Medications Discontinued During This Encounter Prescriptions - amLODIPine (NORVASC) 5 mg tablet (Discontinued) Take 1 tablet by mouth once daily. Encounter Status:Closed by MICKIE VACA on 08/07/24 [facility] TAHIRALivier 07-10-2024 CNPN Telephone ([facility]) -------- HOANG DORADO ([id number]) 1975 M Date Time Provider Department 07/10/[address] [facility] During your visit today, we recorded the following information about you: Carrillo Lin RN 07/10/2024 9:57 AM Signed Called patient as a post surgery follow up call, went to [facility]. Left message with office contact information and encouraged patient to call with questions or concerns. S/p open left inguinal hernia repair with mesh 07/03/24 Post op: no appt; encouraged pt to call and schedule Allergies As of Date: 07/10/2024 (No Known Allergies) Date Reviewed: 07/03/2024 Reviewed by: Ketty Baum, SHEMAR - Fully Assessed Prescriptions as of 07/10/2024 - amphetamine-dextroamphet amine XR (ADDERALL XR) 15 mg capsule Take 1 capsule by mouth once daily for 30 days. - lactobacillus rhamnosus (CULTURELLE) 10 billion cell capsule Take 1 capsule by mouth once daily. - ibuprofen (MOTRIN) 200 mg tablet Take 200 mg by mouth every 6 hours as needed for pain. - iv contrast (will be provided with [...] as designated per enteric contrast guidelines - loratadine (CLARITIN) 10 mg tablet Take 10 mg by mouth once daily. - acetaminophen (TYLENOL) 500 mg tablet Take 2 tablets by mouth every 6 hours. - levothyroxine (SYNTHROID) 125 mcg tablet Take 125 mcg by mouth once daily. Problem List As Of Date 07/10/2024 Noted Resolved History of endocarditis [Z86.79] 01/17/2022 Severe tricuspid regurgitation [I07.1] 01/17/2022 Abnormality of right ventricle of heart [Q20.8] 01/17/2022 Red blood cell antibody positive [R76.8] 02/09/2022 History of intravenous drug abuse (HCC) [Z87.89*02/16/2022 Former smoker [Z87.891] 02/16/2022 Rectal mass [K62.89] 02/16/2022 Rectal cancer (HCC) [C20] 02/21/2022 Severe protein-calorie malnutrition (HCC) [E43] 02/22/2022 Malaise and fatigue [R53.81, R53.83] 07/15/2022 Hypothyroidism unspecified [E03.9] 12/02/2021 DVT (deep venous thrombosis) (HCC) [I82.409] 10/28/2022 Attention to ileostomy (HCC) [Z43.2] 02/20/2023 06/23/2024 Attention deficit hyperactivity disorder (ADHD)*01/22/2024 Secondary pulmonary arterial hypertension (HCC)*06/25/2024 Arrhythmogenic right ventricular dysplasia (HCC*06/25/2024 Depressed left ventricular ejection fraction [R*06/25/2024 Encounter Status:Closed by CARRILLO LIN on 07/10/24 [facility] 07-05-2024 TAHIRAN Telephone ([facility]) -------- HOANG DORADO ([id number]) 1975 M Date Time Provider Department 07/05/[address] [facility] During your visit today, we recorded the following information about you: Fara Varela 07/05/2024 9:34 AM Signed Received FMLA/STD paperwork on 07/05/2024 Pending physician signature and completion. Surgeon: Dr. Elliott Date of Surgery (if known):07/03/2024 Harper Najera [facility] 07/05/2024 11:21 AM Addendum Employer Forms for Patient/Caregiver Time Off of Work FMLA completed, signed by provider, and returned to below contact. Also faxed operative / procedure note 07/03/24 and office visit note 06/13/24. Completed copy scanned in [employer]. Date of Surgery: 07/03/24 Estimated RTW date:08/14/24 Employer: [employer] Date sent to employer: 07/05/24 Received fax confirmation: YES Allergies As of Date: 07/05/2024 (No Known Allergies) Date Reviewed: 07/03/2024 Reviewed by: Ketty Baum, SHEMAR - Fully Assessed Reason for Visit: FMLA Paperwork [9415] Prescriptions as of 07/05/2024 - amphetamine-dextroamphet amine XR (ADDERALL XR) 15 mg capsule Take 1 capsule by mouth once daily for 30 days. - lactobacillus rhamnosus (CULTURELLE) 10 billion cell capsule Take 1 capsule by mouth once daily. - ibuprofen (MOTRIN) 200 mg tablet Take 200 mg by mouth every 6 hours as needed for pain. - iv contrast (will be provided with [...] as designated per enteric contrast guidelines - loratadine (CLARITIN) 10 mg tablet Take 10 mg by mouth once daily. - acetaminophen (TYLENOL) 500 mg tablet Take 2 tablets by mouth every 6 hours. - levothyroxine (SYNTHROID) 125 mcg tablet Take 125 mcg by mouth once daily. Problem List As Of Date 07/05/2024 Noted Resolved History of endocarditis [Z86.79] 01/17/2022 Severe tricuspid regurgitation [I07.1] 01/17/2022 Abnormality of right ventricle of heart [Q20.8] 01/17/2022 Red blood cell antibody positive [R76.8] 02/09/2022 History of intravenous drug abuse (HCC) [Z87.89*02/16/2022 Former smoker [Z87.891] 02/16/2022 Rectal mass [K62.89] 02/16/2022 Rectal cancer (HCC) [C20] 02/21/2022 Severe protein-calorie malnutrition (HCC) [E43] 02/22/2022 Malaise and fatigue [R53.81, R53.83] 07/15/2022 Hypothyroidism unspecified [E03.9] 12/02/2021 DVT (deep venous thrombosis) (HCC) [I82.409] 10/28/2022 Attention to ileostomy (HCC) [Z43.2] 02/20/2023 06/23/2024 Attention deficit hyperactivity disorder (ADHD)*01/22/2024 Secondary pulmonary arterial hypertension (HCC)*06/25/2024 Arrhythmogenic right ventricular dysplasia (HCC*06/25/2024 Depressed left ventricular ejection fraction [R*06/25/2024 Encounter Status:Closed by HARPER NAJERA on 07/05/24 [facility] Telephone ([facility]) -------- HOANG DORADO ([id number]) 1975 M Date Time Provider Department 07/05/24 PARADISE DURBIN [facility] During your visit today, we recorded the following information about you: Fara Varela 07/05/2024 9:36 AM Signed Created in error Allergies As of Date: 07/05/2024 (No Known Allergies) Date Reviewed: 07/03/2024 Reviewed by: Ketty Baum, SHEMAR - Fully Assessed Prescriptions as of 07/05/2024 - amphetamine-dextroamphet amine XR (ADDERALL XR) 15 mg capsule Take 1 capsule by mouth once daily for 30 days. - lactobacillus rhamnosus (CULTURELLE) 10 billion cell capsule Take 1 capsule by mouth once daily. - ibuprofen (MOTRIN) 200 mg tablet Take 200 mg by mouth every 6 hours as needed for pain. - iv contrast (will be provided with [...] as designated per enteric contrast guidelines - loratadine (CLARITIN) 10 mg tablet Take 10 mg by mouth once daily. - acetaminophen (TYLENOL) 500 mg tablet Take 2 tablets by mouth every 6 hours. - levothyroxine (SYNTHROID) 125 mcg tablet Take 125 mcg by mouth once daily. Problem List As Of Date 07/05/2024 Noted Resolved History of endocarditis [Z86.79] 01/17/2022 Severe tricuspid regurgitation [I07.1] 01/17/2022 Abnormality of right ventricle of heart [Q20.8] 01/17/2022 Red blood cell antibody positive [R76.8] 02/09/2022 History of intravenous drug abuse (HCC) [Z87.89*02/16/2022 Former smoker [Z87.891] 02/16/2022 Rectal mass [K62.89] 02/16/2022 Rectal cancer (HCC) [C20] 02/21/2022 Severe protein-calorie malnutrition (HCC) [E43] 02/22/2022 Malaise and fatigue [R53.81, R53.83] 07/15/2022 Hypothyroidism unspecified [E03.9] 12/02/2021 DVT (deep venous thrombosis) (HCC) [I82.409] 10/28/2022 Attention to ileostomy (HCC) [Z43.2] 02/20/2023 06/23/2024 Attention deficit hyperactivity disorder (ADHD)*01/22/2024 Secondary pulmonary arterial hypertension (HCC)*06/25/2024 Arrhythmogenic right ventricular dysplasia (HCC*06/25/2024 Depressed left ventricular ejection fraction [R*06/25/2024 Encounter Status:Closed by PARADISE DURBIN on 07/05/24 [facility] 07-04-[address] [facility] Telephone ([facility]) -------- HOANG DORADO ([id number]) 1975 M Date Time Provider Department 07/04/[address] [facility] During your visit today, we recorded the following information about you: Andreea Sy 07/04/2024 3:32 PM Signed Patient called and left a message regarding FMLA paperwork for inguinal hernia repair return call to [phone] Harper Najera [facility] 07/04/2024 3:54 PM Signed Returned patient call. Patient wanted to know if we have received paperwork from his HR department as he did advise prior to his surgery that he needed off FMLA. I advised to the patient that FMLA paperwork has not yet been received and that he needs to contact his HR department to have paperwork fax (fax number provided). Patient verbally understood and agreed. Patient appreciative of return call. Allergies As of Date: 07/04/2024 (No Known Allergies) Date Reviewed: 07/03/2024 Reviewed by: Ketty Baum, SHEMAR - Fully Assessed Prescriptions as of 07/04/2024 - amphetamine-dextroamphet amine XR (ADDERALL XR) 15 mg capsule Take 1 capsule by mouth once daily for 30 days. - lactobacillus rhamnosus (CULTURELLE) 10 billion cell capsule Take 1 capsule by mouth once daily. - ibuprofen (MOTRIN) 200 mg tablet Take 200 mg by mouth every 6 hours as needed for pain. - iv contrast (will be provided with [...] as designated per enteric contrast guidelines - loratadine (CLARITIN) 10 mg tablet Take 10 mg by mouth once daily. - acetaminophen (TYLENOL) 500 mg tablet Take 2 tablets by mouth every 6 hours. - levothyroxine (SYNTHROID) 125 mcg tablet Take 125 mcg by mouth once daily. Problem List As Of Date 07/04/2024 Noted Resolved History of endocarditis [Z86.79] 01/17/2022 Severe tricuspid regurgitation [I07.1] 01/17/2022 Abnormality of right ventricle of heart [Q20.8] 01/17/2022 Red blood cell antibody positive [R76.8] 02/09/2022 History of intravenous drug abuse (HCC) [Z87.89*02/16/2022 Former smoker [Z87.891] 02/16/2022 Rectal mass [K62.89] 02/16/2022 Rectal cancer (HCC) [C20] 02/21/2022 Severe protein-calorie malnutrition (HCC) [E43] 02/22/2022 Malaise and fatigue [R53.81, R53.83] 07/15/2022 Hypothyroidism unspecified [E03.9] 12/02/2021 DVT (deep venous thrombosis) (HCC) [I82.409] 10/28/2022 Attention to ileostomy (HCC) [Z43.2] 02/20/2023 06/23/2024 Attention deficit hyperactivity disorder (ADHD)*01/22/2024 Secondary pulmonary arterial hypertension (HCC)*06/25/2024 Arrhythmogenic right ventricular dysplasia (HCC*06/25/2024 Depressed left ventricular ejection fraction [R*06/25/2024 Encounter Status:Closed by HARPER NAJERA on 07/04/24 [facility] ANES POSTPROC EVALon 024 ANES POSTPROC EVAL HNO ID: [id number] Author: PETER APODACA DO Service: Anesthesiology Author Type: Anesthesiologist Type: Anesthesia Postprocedure Evaluation Filed: 07/03/2024 11:29 Note Text: POST ANESTHESIA EVALUATION NOTE : 1975 Procedure Summary Date: 07/03/24 Room / Location: [place] [address] / OR Anesthesia Start: 834 Anesthesia Stop: 1053 Procedure: HERNIORRHAPHY INGUINAL ELECTIVE ADULT REDUCIBLE (Left: Groin) Diagnosis: Unilateral inguinal hernia without obstruction or gangrene, recurrence not specified (Unilateral inguinal hernia without obstruction or gangrene, recurrence not specified [K40.90]) Surgeons: Dexter Elliott MD Responsible Provider: Peter Apodaca DO Anesthesia Type: general ASA Status: 3 Anesthesia Type: general Airway Type: LMA Last Vitals Vitals Value Taken Time BP 103/68 07/03/24 1115 Temp 37.7 ?C (99.9 ?F) 07/03/24 1053 Pulse 57 07/03/24 1128 Resp 14 07/03/24 1128 SpO2 100 % 07/03/24 1128 Vitals shown include unfiled device data. Post Anesthesia Patient Status Patient Evaluation: PACU. Anticipated Disposition: phase 2 then home. Neurological [...] of care. Anesthesia Observations No Documentation SIGNATURE: Peter Apodaca DO PATIENT NAME: Hoang Dorado DATE: July 03, 2024 TIME: 11:29 AM CSN: [id number] [facility] ANES PRE-OPon 07-03-2024 ANES PRE-OP HNO ID: [id number] Author: PETER APODACA DO Service: Anesthesiology Author Type: Anesthesiologist Type: Anesthesia Preprocedure Evaluation Filed: 07/03/2024 08:04 Note Text: ANESTHESIOLOGY DAY OF SURGERY NOTE : 1975 Procedure Information Date/Time: 07/03/24829 Procedure: HERNIORRHAPHY INGUINAL ELECTIVE ADULT REDUCIBLE (Left: Groin) - with mesh Location: [facility] OR12 / [facility] OR Surgeons: Dexter Elliott MD Estimated body mass index is 20.99 kg/m? as calculated from the following: Height as of 06/25/24: 170.2 cm (5' 7 ). Weight as of 06/25/24: 60.8 kg (134 lb). 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 Follows with cardiology. Cleared for surgery. No limitations. Good METS. Asymptomatic. -ok for opioids in perioperative period. I - PHYSICAL EVALUATION AIRWAY Patient intubated: No. Tracheostomy tube not present Mallampati: I. TM distance: >3 FB. Neck ROM: full ROM without neurological symptoms. Mouth opening: adequate. Short neck: no. Thick neck: no Marx present: no DENTAL Dental findings: missing tooth/teeth. Dentures, upper: complete. Dentures, lower: partial. II - ANESTHESIA PLAN ASA Score: 3 Anesthetic Plan: general Airway type: LMA The patient is a current smoker. NPO Status: adequate Beta Linda Monitoring Plan Monitoring plan: standard ASA. Post Procedure Analgesic Plan Postoperative analgesic plan: multimodal analgesia. Informed Consent Anesthetic risks, benefits, alternatives, personnel and consent discussed: yes. Patient / Responsible Libertarian agrees to proceed: yes Patient / Surrogate agrees to blood products: Yes Vitals Value Taken Time BP 138/112 07/03/24740 Pulse 70 07/03/24740 Resp 16 07/03/24740 Temp 36.2 ?C (97.2 ?F) 07/03/24740 SpO2 98 % 07/03/24740 Facility-Administered Medications as of 07/03/2024 Medication Dose Route Frequency [COMPLETED] acetaminophen 1,000 mg tab(s) (TYLENOL) 1,000 mg ORAL Pre-Op Once [COMPLETED] promethazine 12.5 mg tab(s) (PHENERGAN) 12.5 mg ORAL Pre-Op Once lactated ringers iv infusion 30 mL/hr INTRAVENOUS CONTINUOUS Outpatient Medications as of 07/03/2024 Medication Sig acetaminophen (TYLENOL) 500 mg tablet Take 2 tablets by mouth every 6 hours. levothyroxine (SYNTHROID) 125 mcg tablet Take 125 mcg by mouth once daily. lactobacillus rhamnosus (CULTURELLE) 10 billion cell capsule Take 1 capsule by mouth once daily. ibuprofen (MOTRIN) 200 mg tablet Take 200 mg by mouth every 6 hours as needed for pain. iv contrast (will be provided with radiology [...] Contrast as designated per enteric contrast guidelines loratadine (CLARITIN) 10 mg tablet Take 10 mg by mouth once daily. I have interviewed and examined the patient. I have reviewed the medical record and/or the pre-anesthesia evaluation, pertinent labs, and test results. This contains updated information obtained within 48 hours of Surgery/Procedure. SIGNATURE: Seb Meyers DO PATIENT NAME: Hoang Dorado DATE: July 03, 2024 TIME: 7:45 AM CSN: [id number] Attending Note I evaluated the patient and personally participated in the rubin components. Signature: Peter Apodaca DO Date: July 03, 2024 Time: 8:04 AM [facility] NURSING PROGon 07-03-2024 NURSING PROG HNO ID: [id number] Author: KETTY BAUM RN Service: Nursing Author Type: Registered Nurse Type: Nursing Progress Note Filed: 07/03/2024 12:16 Note Text: PATIENT EDUCATION TOPIC: PROCEDURE / SURGERY: Post-op Teaching: Med Administration, Symptom Management, and Wound Care PATIENT NAME: Hoang Dorado PATIENT LOCATION: [facility] OR POOL/[facility] OR POOL READINESS TO LEARN COGNITIVE ABILITY: Alert and oriented MOTIVATION TO LEARN: Interested FAMILY SUPPORT: High - Very involved in pt care INSTRUCTION PROVIDED TO: Patient and Family member PATIENT LEARNS BEST BY: Individual Instruction Written Instruction - Hand-outs Verbal Instruction FACTORS AFFECTING LEARNING: None PHYSICAL LIMITATIONS AFFECTING LEARNING: None LEARNING RESPONSE DIAGNOSIS: ADULT: Well Adult PATIENT/FAMILY RESPONSE: Verbalizes understanding of: POST-OPERATIVE INSTRUCTIONS-Correct actions to take to reduce postoperative complications METHOD OF INSTRUCTION: Individual instruction Written instruction/Handouts Verbal instruction FOLLOW-UP PLAN: Patient instructed to call with any further issues Follow-up with Primary Care INSTRUCTIONAL AIDS USED: NA SUPPLEMENTAL MATERIAL PROVIDED TO PATIENT: None REFERRAL (RECOMMENDATION): None Electronically Signed By: Ketty Baum [facility] NURSING PROG HNO ID: [id number] Author: BRODY PETERSON RN Service: Nursing Author Type: Registered Nurse Type: Nursing Progress Note Filed: 07/03/2024 07:32 Note Text: PATIENT EDUCATION TOPIC: PROCEDURE / SURGERY: Pre-op Teaching: Surgical Safety Principles READINESS TO LEARN COGNITIVE ABILITY: Alert and oriented MOTIVATION TO LEARN: Interested FAMILY SUPPORT: Unable to assess - Family not present INSTRUCTION PROVIDED TO: Patient PATIENT LEARNS BEST BY: Individual Instruction FACTORS AFFECTING LEARNING: None PHYSICAL LIMITATIONS AFFECTING LEARNING: None LEARNING RESPONSE DIAGNOSIS: ADULT: Well Adult PATIENT/FAMILY RESPONSE: Information received as demonstrated by interest and questions METHOD OF INSTRUCTION: Individual instruction FOLLOW-UP PLAN: Complete - No need for follow-up INSTRUCTIONAL AIDS USED: NA SUPPLEMENTAL MATERIAL PROVIDED TO PATIENT: None REFERRAL (RECOMMENDATION): None Electronically Signed By: Brody Peterson [facility] OPERATIVE NOon 07-03-2024 OPERATIVE NO HNO ID: [id number] Author: DEXTER ELLIOTT MD Service: General Surgery Author Type: Physician Type: Operative Report Filed: 07/08/2024 19:05 Note Text: OPERATIVE/PROCEDURE REPORT LOG ID: [id number] Surgery/Procedure Date: 07/03/2024 Incision/Procedure Start Time: 9:00 AM Incision Close/Procedure End Time: 10:41 AM Surgeon(s)/Proceduralist (s) and Service Inspector(s): Surgeons and Role: * Dexter Elliott MD - Primary Physician Service Inspector: Juan Manuel Sy PA-C Please note that no qualified resident was available to assist with the operation. Juan Manuel Sy assisted with intraoperative dissection, retraction, and skin closure. Procedure(s): 1. Open left inguinal hernia repair with mesh Anesthesia: General Pre-Op/Pre-Procedure Diagnosis: Reducible left inguinal hernia Post-Op/Post-Procedure Diagnosis: Reducible left inguinal hernia Operative Findings: Reducible indirect left inguinal hernia, ~1 cm. Uli repair with Parietene medium weight polypropylene mesh, 6.5 x 13 cm Operative Indication: Honag Dorado is a 48 year old male who presents with a symptomatic left inguinal hernia. Current symptoms include pain and bulging. He has a history of open right inguinal hernia repair in the past. Given his low midline incision and prior LLQ colostomy site, we elected to proceed with an open repair. The risks, benefits, and alternatives to open inguinal hernia repair with mesh were discussed with the patient including the risk of bleeding, infection, damage to the vas deferens or spermatic vessels, nerve injury, chronic groin pain, and recurrence. All patient questions were answered to their satisfaction. Written consent was obtained and can be found under the Consent tab in Epic. Procedure Details: A preoperative safety huddle was performed answering all patient and staff questions/concerns prior to transporting the patient to the operating room. Plans for appropriate VTE and antibiotic prophylaxis were confirmed. After general endotracheal anesthesia was administered and the patient was then appropriately positioned with arms out, a pillow under the knees, a safety strap across the thigh, and padding of all pressure points. Next, the abdomen was clipped and then prepped and draped in the usual sterile fashion with chlorhexidine. Finally, a time out was performed before incision. We started with a left groin incision, dissecting through the subcutaneous tissues with electrocautery, ligating the superficial epigastric with 3-0 Vicryl ties, and dissecting down to the external oblique. Local was infiltrated beneath the external oblique to create an ilioinguinal nerve block. Next, the external oblique was divided along its oblique fibers and extended laterally, then medially through the external ring to expose the inguinal canal. While developing the space beneath the external oblique, There was some scarring along the cephalad edge between the external oblique and conjoint tendon that somewhat limited our cephalad dissection. We then dissected the cord free from the shelving edge of the inguinal ligament and the conjoint tendon, encircling the cord at the level of the pubis, placing a maryana around the cord. Next, we next the cord structures from the hernia sac which emanated from the indirect space. The hernia sac was gently reduced and the hernia defect measured 1 cm. The ilioinguinal nerve coursed directly through the operative field so the decision was made to perform a neurectomy in order to avoid any entrapment by the mesh or scar. The nerve was dissected free from the surrounding tissues proximally and distally to the edges of the operative field. The nerve was then ligated with 3-0 Vicryl sutures under tension and divided, allowing the proximal and distal ends to retract into the surrounding tissue and away from the operative field. After confirming hemostasis, I then brought a 7.5 x 15 cm parietene medium weight mesh onto the field and trimmed it down to 6.5 x 13 cm, and created a slit in the mesh to accommodate the cord structures. We then anchored the mesh medially to the investing fascia over the pubic tubercle with an 0-Ethibond suture before running along the shelving edge laterally to 1 cm beyond the internal ring. We then secured the superior portion to the conjoined tendon with interrupted 0-Ethibond sutures and then fashioned tails around the cord structures to recreate the internal ring again with interrupted 0-Ethibond sutures, including a stitch laterally that anchored the cephalad tail to both the caudal tale and the shelving edge of the inguinal ligament beyond the internal ring. Hemostasis was confirmed and we closed the external oblique over the repair with a running 2-0 Vicryl suture. Additional local was infiltrated beneath the external oblique and into the subcutaneous tissues. We then closed Victor Hugo's fascia wit (more content not included)... Normal [facility] CNOVon 06-25-2024 CNOV Office Visit ([facility] ) -------- HOANG DORADO ([id number]) 1975 M Date Time Provider Department 06/25/24 9:00 AM MICKIE GRAHAM During your visit today, we recorded the following information about you: Pulse Respiration Blood pressure Weight 77/minute 20/minute 163/96 60.8 kg Height 1.702 m Mickie Graham MD 06/27/2024 8:39 AM Addendum [facility] Heart [facility] V[facility] [place] Department of Cardiovascular Medicine SECTION OF REGIONAL CARDIOLOGY OUTPATIENT VISIT TYPE: NEW CHIEF COMPLAINT: Pre-op clearance Assessment AND Plan Abnormality of right ventricle of heart - Enlarged Severe based on echo and more recently cardiac MRI Severe dysfunction also noted based on echo done in February of this year Unclear etiology Nonrheumatic tricuspid valve regurgitation Conflicting data with echocardiogram in February suggesting moderate to severe regurgitation and cardiac MRI in April only indicating mild regurgitation. Either way suspect this to be secondary to RV dilatation. Depressed left ventricular ejection fraction Conflicting data between echo and MRI with the echo in February showing normal ejection fraction and cardiac MRI showing low normal to mild decrease with an EF of 50% Clinically he is asymptomatic and not in heart failure. Will need follow-up evaluation on future outpatient visits Preoperative cardiovascular examination He had tolerated multiple colon surgeries in [...] a low. He may proceed as planned. 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 No recurrence Arrhythmogenic right ventricular dysplasia (HCC) Suspected based on recent MRI in [place] although inconclusive diagnosis No history of syncope No family history of sudden cardiac This needs to be further investigated however given the severity of his hernia symptoms, it can be done on future follow-up Secondary pulmonary arterial hypertension (HCC) Most recent echocardiogram only showing mild elevation of RVSP at 38 mmHg Tricuspid regurgitation, RV dilatation, and history of provoked single episode of pulmonary embolism all noted. Etiology unclear but significant variability in estimated RVSP noted. Probably needs a repeat echocardiogram in the [facility] system on future follow-up. Elevated blood pressure reading Admits to be very anxious about today's visit since he was concerned about being able to have his hernia fixed Has not had history of hypertension documented in the past. Advised to check his blood pressure at home to keep a log and if average blood pressure is above 130/80 to let us know since this would require initiation of treatment. Perioperatively as needed use of intravenous hydralazine would be acceptable for short-term blood pressure control. In summary Hoang proceed with hernia surgery as planned at low cardiac complication risk. Advised that he will need follow-up with cardiology in the future. A referral to Dr. Marie was placed since he saw him back in 2021 and his practice location is significantly more convenient (patient lives in [facility]) In the meantime he will check his blood pressure at home keeping a log for future follow-up and visits. The above was discussed with the patient in detail and all questions were answered. Thank you for allowing us to participate in the care of this patient and if I can be of any further assistance or if you have any questions or concerns, please do not hesitate to contact me. Mickie Vaca M.D., Jose Ramon. ======= HPI: Mr. Hoang Dorado is a 48 year old male who is here today for preoperative cardiovascular evaluation. He has extensive history spanning multiple systems and to states. He has known history of pulmonary embolism, history of endocarditis, resultant severe RV dilatation and tricuspid regurgitation although reportedly his RV function was intact. He does have history of remote polysubstance abuse. He is a former smoker. History also significant for rectal cancer, ADHD, and hypothyroidism. He has undergone 4 surgeries according to his description since 2021 most recently in January 2023. All surgeries were tolerated very well. Initially he was scheduled to undergo hernia repair in [place] and was seen by [facility] cardiology after the cardiac MRI. Results are noted below and there was suspicion of (more content not included)... Normal [facility] HISTORY PHYSICALon 4 HISTORY PHYSICAL HNO ID: [id number] Author: DARÍO STRATTON APRN.HOSIERY MENDER Service: ? Author Type: Nurse Practitioner Type: H&P Filed: 06/26/2024 06:43 Note Text: PREANESTHESIA CONSULT CLINIC TELEHEALTH VISIT Patient has been identified by name and date of : Yes Reason for contact: PACC visit Accompanied by: Significant Other This is a virtual visit using [employer] Video Visit. It required patient-provider interaction for the medical decision making as documented below. I have communicated my name and active licensure. The patient's identity and physical location were verified at the time of this visit. Either the patient or their legal appeals representative has been informed of the risks and benefits of and alternatives to treatment through a remote evaluation and consents to proceed with the evaluation remotely. REASON FOR VISIT: Hoang Dorado is a 48 year old male who is scheduled for Left - HERNIORRHAPHY INGUINAL ELECTIVE ADULT REDUCIBLE at the request of Dr. Dexter Elliott for consultation. My final recommendation will be communicated back to the requesting physician by way of shared medical record or letter. My final recommendation will be communicated back to the requesting physician by way of shared medical record or letter. ASSESSMENT: History of intravenous drug abuse (HCC) Assessment: h/o of heroin use, clean since 2016 Attention deficit hyperactivity disorder (ADHD), predominantly hyperactive type Assessment: stable without meds Rectal cancer (HCC) Assessment: resolved. s/p colectomy 2021, reversal of ostomy 2021 with F. DVT (deep venous thrombosis) ([facility]) Assessment: states one instance 10 years ago, completed course of warfarin, no recurrence Hypothyroidism unspecified Assessment: stable with current medication regimen Former smoker Assessment: reports that he quit smoking about 19 months ago. His smoking use included cigarettes. He started smoking about 26 years ago. He has a 12.5 pack-year smoking history. He has never used smokeless tobacco. History of endocarditis Assessment: history of endocarditis over 15 years ago due to IV drug use. No other instance. Severe tricuspid regurgitation Assessment: stable and asymptomatic today. This was a virtual visit, and as such was unable to auscultate. Patient states pulse is regular. Was able to see Corporate Health Consultant Dr. Graham at [facility] on 06/25/24: He had tolerated multiple colon [...] since he saw him back in 2021. ANESTHESIA FINDINGS: Intubation History: No history of difficult intubation Significant Anesthesia Considerations: None Airway Exam: General: Normal appearance Body mass index is 21.6 kg/m?. Mallampati Score is CLASS II ULBT: Class I - Lower incisors can bite the upper lip above the diallo line Neck: Normal appearance and function, Distance from hyoid to mentum during neck extension is at least 3 finger breaths Mouth: Normal tongue size and Mouth opening greater than 2 finger breaths Dentition: upper partial Airway History: No abnormal airway history most recent airway history - 02/20/23 Final Airway Details Final airway type: endotracheal [...] attempts at approach: 1 Airway not difficult 06/21/2024 Sleep Apnea Probability Snores loudly: No Tired, fatigued or sleepy in daytime: Yes Stops breathing or choking/gasping during sleep: No High blood pressure: No Sleep Apnea Probability Score: 22 (Sleep study not recommended) METS: Walk indoors, such as around the house (1.75 METs) Do light work around the house, such as dusting or washing dishes (2.70 METs) Take care of self; that is eating, dressing, bathing, using the toilet (2.75 METs) Walk a block or two on level ground (2.75 METs) Do moderate work around the house such as vacuuming, sweeping floors, or carrying in groceries (3.50 METs) Climb a flight of stairs or walk up a hill (5.50 METs) Do heavy work around the house, such as scrubbing floors, lifting or moving heavy furniture (8.00 METs) Ru (more content not included)... Normal [facility] CNOVon 06-13-2024 [facility] Office Visit ([facility] ) -------- HOANG DORADO ([id number]) 1975 M Date Time Provider Department 06/13/24 10:[address] [facility] During your visit today, we recorded the following information about you: Temperature Pulse Blood pressure 97.3 degrees 94/minute 152/93 Dexter Elliott MD 06/13/2024 1:09 PM Signed HISTORY AND PHYSICAL [facility] Abdominal [facility] Chief Complaint: left inguinal hernia HPI: Hoang Dorado is a 48 year old male with a history of ADHD, DVT, rectal cancer, former smoker, IV drug use, endocarditis, hypothyroid who presents for evaluation of a left inguinal hernia. Patient was seen by his PCP, Dr. Adam 05/13/24 with complaints of a few weeks of pain and swelling in his left groin. On exam he is noted as having a left inguinal hernia. He was referred for surgical evaluation. He first started to notice this 6 months ago. This causing a fair bit of discomfort. This is exacerbated by prolonged sitting or standing. This is relieved by laying flat. He has been trying not to let it limit his activity. This is always reducible but he reports that his pain is severe and he wants it fixed as soon as possible. Relevant previous operations include: - right inguinal hernia repair ~20 years ago -10/30/2013 abdominal hernia repair -02/21/2022 Laparoscopic Divided End Loop Sigmoid Colostomy (Ana Enriquez MD) -11/07/2022 Colostomy Takedown, Robotic Assisted Laparoscopic Proctosigmoidectomy (Low Anterior Resection) with Colorectal Anastomosis and Diverting Loop Ileostomy, Flexible Sigmoidoscopy (Ana Enriquez MD) - attention to ileostomy (Ana Enriquez MD) Chronic Opioid Use, Provider prescribed >90 days Other substance use Independent Heavy or very physical labor Unknown No Significant Comorbidities N/A PAST MEDICAL HISTORY Diagnosis Date Adenocarcinoma of [...] anterior resection, flexible sigmoidoscopy, diverting loop ileostomy Social History Tobacco Use Smoking status: Former Packs/day: 0.50 Years: 25.00 Additional pack years: 0.00 Total pack years: 12.50 Types: Cigarettes Quit date: 10/30/2022 Years since quittin.5 Smokeless tobacco: Never Tobacco comments: Less than half a pack Vaping Use Vaping Use: Never used Substance Use Topics Alcohol use: Not Currently Comment: 2 drinks/week; heavy in past Drug use: Not Currently Types: IV Comment: Past drug use of herorin Additional social history not relevant to the patient's HPI FAMILY HISTORY Problem Relation Age of Onset Breast Cancer Sister Colon Cancer Maternal Grandfather Additional family history not relevant to the patient's HPI ALLERGIES No Known Allergies Current Outpatient Medications Medication Sig Dispense Refill lactobacillus rhamnosus (CULTURELLE) 10 billion cell capsule Take 1 capsule by mouth once daily. 30 capsule 0 cyclobenzaprine (FLEXERIL) 5 mg tablet Take 1 tablet by mouth three times daily. 20 tablet 0 ibuprofen (MOTRIN) 400 mg tablet Take 1 tablet by mouth every 8 hours. 20 tablet 0 buPROPion XL (WELLBUTRIN XL) 300 mg 24 hr tablet TAKE 1 TABLET BY MOUTH DAILY (TAKE 150mg DAILY FOR 5 DAYS then INCREASE to 300 mg DAILY) 30 tablet 2 ibuprofen (MOTRIN) 200 mg tablet Take 200 mg by mouth every 6 hours as needed for pain. buprenorphine-naloxone (SUBOXONE) 8-2 mg film DISSOLVE 2 (TWO) films UNDER THE TONGUE DAILY iv contrast (will be provided with radiology [...] per enteric contrast guidelines 1 Each 0 prochlorperazine (COMPAZINE) 10 mg tablet Take 1 tablet by mouth every 6 hours as needed. 100 tablet 2 nicotine (NICODERM) 21 mg/24 hr Apply 1 Patch as directed every 24 hours. 30 Patch 1 ondansetron (ZOFRAN) 8 mg tablet Take 1 (more content not included)... Normal [facility] Office Visiton 05-13-2024 Follow-up visit [id number] Hoang Dorado 1975 M Date Provider Department Center 05/13/2024 [id number] BLOOD Family History Problem Relation Age of Onset No Known Problems Mother No Known Problems Father Family Status - Relation Status Age at Mother Father Level of Service:60821 [place] OFFICE/OUTPATIENT ESTABLISHED LOW MDM 20 MIN Normal [facility] MRI CARDIAC MORPHOLOGY AND F UNCTION W AND WO IV CONTRASTon 05-01-2024 MRI CARDIAC MORPHOLOGY AND FUNCTION W AND WO IV CONTRAST Addendum: Phase contrast of the tricuspid valve was conducted. Urgent fraction is 49-50 %. This is consistent with moderate tricuspid regurgitation. His note that this is a more accurate measurement than the visual measurements used on the conventional MR sequences where it was felt that there was mild regurgitation. Electronically signed: Joshua Deleon MD. Addendum: Electronically signed: Joshua Deleon MD. MRI CARDIAC MORPHOLOGY AND FUNCTION W AND WO IV CONTRAST 05/01/2024 10:09 AM SIGNS AND SYMPTOMS: Abnormal EKG TECHNOLOGIST COMMENTS: QUESTION FOR THE RADIOLOGIST: PROTOCOL: Multiplanar T1 and T2-weighted MR imaging conducted. This includes bright blood steady-state free precession images. Black blood images and delayed myocardial enhancement images. T1 and T2 mapping conducted. Gadoterate meglumine 0.5 mmol/mL contrast injection 40 mL COMPARISON: No prior FINDINGS: Morphology: Left ventricular end-diastolic diameter:43.5 mm Anteroseptal wall thickness:1 cm Inferoseptal wall thickness:1 cm Mid septal wall thickness:1 cm Right ventricular size:Severely enlarged Left ventricular size:Normal Right atrial size:Enlarged Left atrial size:Normal There is abnormal signal identified within the right ventricular free wall. Findings are concerning for fibrofatty infiltration and possible arrhythmogenic right ventricular dysplasia. Function: Left ventricular ejection fraction:50.45 Left ventricular end-diastolic volume:116 mL Left ventricular end-systolic volume: 57.5 Stroke volume:58.5 mL Wall motion:Mild left ventricular hypokinesia Valves: Quantitative analysis:Not performed Mitral valve: Normal valve leaflets no definite regurgitation or stenosis Tricuspid valve: There is mild dephasing across the tricuspid valve which could indicate some mild tricuspid regurgitation. Valve leaflets normal Aortic valve: Tricuspid valve. No aortic stenosis or regurgitation Delayed myocardial enhancement: No abnormal delayed myocardial enhancement is identified with in the left ventricle. Other cardiac findings: Pericardium:No pericardial effusion or thickening Aorta:Normal aorta IMPRESSION: No abnormal delayed myocardial enhancement identified within the left ventricle. Left ventricular ejection fraction is decreased to low normal at 50.5%. Wall motion appears normal. There is abnormal signal identified within the right ventricular free wall. Findings are concerning for fibrofatty infiltration and possible arrhythmogenic right ventricular dysplasia. There is mild dephasing across the tricuspid valve which could indicate some mild tricuspid regurgitation. Valve leaflets normal . Electronically signed: Joshua Deleon MD. Not Vldtd Invalid Interpretation Code [facility] Office Visiton 03-22-2024 Follow-up visit [id number] Hoang Dorado 1975 M Date Provider Department Center 03/22/2024 [id number] CRAMER MAGO [place] Family History Problem Relation Age of Onset No Known Problems Mother No Known Problems Father Family Status - Relation Status Age at Mother Father Level of Service:78155 [place] OFFICE/OUTPATIENT NEW LOW MDM 30 MINUTES Normal [facility] Orders Onlyon 03-22-2024 Orders Only [id number] Hoang Dorado 1975 M Date Provider Department Center 03/22/2024 [id number], HISTORICAL MAGO [place] Family History Problem Relation Age of Onset No Known Problems Mother No Known Problems Father Family Status - Relation Status Age at Mother Father Normal [facility] XR COLON SINGLE CONTRASTon 0 01-31-2023 XR [...] 1:06 (min:sec). Air kerma: 28.3 mGy. RESULT: Technical Communicator: No dilated bowel. Bowel anastomotic sutures in [...] leak or stricture at the colorectal anastomosis. Logistics Team Lead[facility] Transcribe Date/Time: Jan 31 2023 4:14P Dictated by : MELODY GARNICA DO This examination was interpreted and the report reviewed and electronically signed by: MELODY GARNICA DO on Jan 31 2023 4:21PM EST [id number] Normal [facility] CBC W Auto Differential pane l (Bld)on 10-28-2022 Basophils (Bld) [#/Vol] 0.04 10*3/uL <0.11 k/uL [facility] Basophils/100 WBC (Bld) 0.8 % [facility] Differential cell count method Nom (Bld) Auto [facility] Eosinophils (Bld) [#/Vol] 0.16 10*3/uL <0.46 k/uL [facility] Eosinophils/100 WBC (Bld) 3.2 % [facility] Erythrocyte distribution width (RBC) [Ratio] 12.8 % 11.5 - 15.0 % [facility] Hematocrit (Bld) [Volume fraction] 43.0 % 39.0 - 51.0 % [facility] Hemoglobin (Bld) [Mass/Vol] 14.6 g/dL 13.0 - 17.0 g/dL [facility] Immature granulocytes (Bld) [#/Vol] <0.10 k/uL [facility] Immature granulocytes/100 WBC (Bld) 0.4 % [facility] Lymphocytes (Bld) [#/Vol] 0.60 10*3/uL Low 1.00 - 4.00 k/uL [facility] Lymphocytes/100 WBC (Bld) 11.9 % [facility] MCH (RBC) [Entitic mass] 34.4 pg High 26.0 - 34.0 pg [facility] MCHC (RBC) [Mass/Vol] 34.0 g/dL 30.5 - 36.0 g/dL [facility] MCV (RBC) [Entitic vol] 101.4 fL High 80.0 - 100.0 fL [facility] Monocytes (Bld) [#/Vol] 0.47 10*3/uL <0.87 k/uL [facility] Monocytes/100 WBC (Bld) 9.3 % [facility] Neutrophils (Bld) [#/Vol] 3.75 10*3/uL 1.45 - 7.50 k/uL [facility] Neutrophils/100 WBC (Bld) 74.4 % [facility] Nucleated RBC (Bld) [#/Vol] <0.01 k/uL [facility] Nucleated RBC/100 WBC (Bld) [Ratio] 0.0 /100 WBC [facility] Platelet mean volume (Bld) [Entitic vol] 10.0 fL 9.0 - 12.7 fL [facility] Platelets (Bld) [#/Vol] 237 10*3/uL 150 - 400 k/uL [facility] RBC (Bld) [#/Vol] 4.24 10*6/uL 4.20 - 6.0 0 m/uL [facility] WBC (Bld) [#/Vol] 5.04 10*3/uL 3.70 - 11. 00 k/uL [facility] TYPE AND SCREEN,30 DAYon ABO B [facility] HIstorical Ab Scr Status Positive Abnormal [facility] Rh Nom (Bld) Positive [facility] CT Abdomen and Pelvis W cont rast Mukund 10-19-2022 IMPRESSION: Stable postoperative appearance to the abdomen [...] any questions regarding this interpretation, please call [phone]. If you are unable to reach us at the number above, please feel free to contact [facility] at [phone]. DIVISION OF RADIOLOGY * * *Final Report* * * DATE OF EXAM: Oct 17 2022 2:19PM [facility] 0530 - CT ABD/PEL W IVCON / [...] appear stable. Mild multichamber cardiomegaly is noted. Technical Communicator (topogram) images: No additional findings. DIVISION OF RADIOLOGY Provider, [facility] - 10/19/2022 * * *Final Report* * * DATE OF EXAM: Oct 17 2022 2:19PM [facility] 0530 - CT ABD/PEL W IVCON / [...] appear stable. Mild multichamber cardiomegaly is noted. Technical Communicator (topogram) images: No additional findings. IMPRESSION IMPRESSION: Stable postoperative appearance to the abdomen [...] any questions regarding this interpretation, please call [phone]. If you are unable to reach us at the number above, please feel free to contact [facility]iology at [phone]. [facility] CT Abdomen and Pelvis W cont rast IVOrdered By: [facility] Provider on 10-19-[address] [facility] [address] Abdomen and Pelvis W cont rast Mukund 10-17-2022 Radiology Study observation (narrative) [facility] ANES POSTPROC EVALon 022 ANES POSTPROC EVAL HNO ID: [id number] Author: Charo Leblanc MD Service: Anesthesiology Author [...] Sharp RN; Charo Leblanc MD; Camelia Thomason APRN.BACK CLOSER Responsible Provider: Charo Leblanc MD Anesthesia Type: [...] SIGNATURE: Charo Leblanc MD PATIENT NAME: Hoang Dorado DATE: October 13, 2022 TIME: 4:43 PM CSN: [id number] [facility] ANES PRE-OPon 10-13-2022 ANES PRE-OP HNO ID: [id number] Author: Charo Leblanc MD Service: Anesthesiology Author Type: Physician Type: Anesthesia Preprocedure Evaluation Filed: 10/13/2022 2:46 PM Note Text: ANESTHESIOLOGY DAY OF SURGERY NOTE : 1975 Procedure Information Date/Time: 10/13/22 1400 Scheduled providers: Ana Enriquez MD; Radha Sharp RN; Charo Leblanc MD; Camelia Thomason APRN.BACK CLOSER Procedure: SIGMOIDOSCOPY Location: Procedures Estimated body mass [...] contains updated (more content not included)... Normal [facility] Flexible Sigmoidoscopyon Flexible sigmoidoscopy [facility] Gastrointestinal Endoscopy Patient Name: Hoang Dorado Procedure Date: 10/13/2022 2:29 PM Date of : 1975 Admit Type: Outpatient Age: 47 Room: [place] [address] Gender: Male Note Status: Finalized Attending MD: [...] Blood Loss: Estimated blood loss: none. Normal [facility] HISTORY PHYSICALon HISTORY PHYSICAL HNO ID: [id number] Author: Kaylin Zamora MD Service: Colorectal Author [...] SIGNATURE: Kaylin Zamora MD PATIENT NAME: Hoang Dorado DATE: October 13, 2022 TIME: 2:29 PM Normal [facility] SIGMOIDOSCOPYon 10-13-2022 [facility] CREATININE, BLOOD (POC)on Creatinine [Mass/Vol] 1.00 mg/dL 0.7 - 1.4 mg/dL [facility] eGFR (POCT) [facility] CT CHEST W IVCONon 2 [facility] MR Pelvis WO contraston 08-31 IMPRESSION: Since 05/12/2022 and 02/03/2022, post treatment primary tumor assessment: Incomplete response (likely residual tumor). -Continued decrease in size of the upper rectal mass. mrTRG: Grade 3 - Moderate response Suspicious Mesorectal lymph nodes: No. Suspicious Extramesorectal lymph nodes: No. Logistics Team Lead: ADDI Transcribe Date/Time: Sep 26 2022 3:20P Dictated by : GABY SHARIF MD This examination was interpreted and the report reviewed and electronically signed by: GABY SHARIF MD on Sep 26 2022 3:41PM [facility] * * *Final Report* * * DATE OF EXAM: Sep 26 2022 3:09PM [facility] 0754 - MRI RECTUM WO/W IVCON / [...] inguinal hernia repair. No aggressive osseous lesions. [facility] Provider, [facility] - 09/26/2022 * * *Final Report* * * DATE OF EXAM: Sep 26 2022 3:09PM [facility] 0754 - MRI RECTUM WO/W IVCON [...] inguinal hernia repair. No aggressive osseous lesions. IMPRESSION IMPRESSION: Since 05/12/2022 and 02/03/2022, post treatment primary tumor assessment: Incomplete response (likely residual tumor). -Continued decrease in size of the upper rectal mass. mrTRG: Grade 3 - Moderate response Suspicious Mesorectal lymph nodes: No. Suspicious Extramesorectal lymph nodes: No. Logistics Team Lead: ADDI Transcribe Date/Time: Sep 26 2022 3:20P Dictated by : GABY SHARIF MD This examination was interpreted and the report reviewed and electronically signed by: GABY SHARIF MD on Sep 26 2022 3:41PM EST [facility] Radiology Study observation (narrative) [facility] MR Pelvis WO contrastOrdered By: [facility]cf Provider on 09-26-2022 [facility] CBC W Auto Differential pane l (Bld)on 08-26-2022 Basophils (Bld) [#/Vol] <0.11 k/uL [facility] Basophils/100 WBC (Bld) 0.5 % [facility] Differential cell count method Nom (Bld) Auto [facility] Eosinophils (Bld) [#/Vol] 0.11 10*3/uL <0.46 k/uL [facility] Eosinophils/100 WBC (Bld) 3.0 % [facility] Erythrocyte distribution width (RBC) [Ratio] 16.4 % High 11.5 - 15.0 % [facility] Hematocrit (Bld) [Volume fraction] 36.0 % Low 39.0 - 51.0 % [facility] Hemoglobin (Bld) [Mass/Vol] 12.6 g/dL Low 13.0 - 17.0 g/dL [facility] Immature granulocytes (Bld) [#/Vol] 0.03 10*3/uL <0.10 k/uL [facility] Immature granulocytes/100 WBC (Bld) 0.8 % [facility] Lymphocytes (Bld) [#/Vol] 0.44 10*3/uL Low 1.00 - 4.00 k/uL [facility] Lymphocytes/100 WBC (Bld) 11.8 % [facility] MCH (RBC) [Entitic mass] 33.2 pg 26.0 - 34.0 pg [facility] MCHC (RBC) [Mass/Vol] 35.0 g/dL 30.5 - 36.0 g/dL [facility] MCV (RBC) [Entitic vol] 94.7 fL 80.0 - 100.0 fL [facility] Monocytes (Bld) [#/Vol] 0.48 10*3/uL <0.87 k/uL [facility] Monocytes/100 WBC (Bld) 12.9 % [facility] Neutrophils (Bld) [#/Vol] 2.64 10*3/uL 1.45 - 7.50 k/uL [facility] Neutrophils/100 WBC (Bld) 71.0 % [facility] Nucleated RBC (Bld) [#/Vol] <0.01 k/uL [facility] Nucleated RBC/100 WBC (Bld) [Ratio] 0.0 /100 WBC [facility] Platelet mean volume (Bld) [Entitic vol] 9.7 fL 9.0 - 12.7 fL [facility] Platelets (Bld) [#/Vol] 178 10*3/uL 150 - 400 k/uL [facility] RBC (Bld) [#/Vol] 3.80 10*6/uL Low 4.20 - 6.0 0 m/uL [facility] WBC (Bld) [#/Vol] 3.72 10*3/uL 3.70 - 11. 00 k/uL [facility] Comprehensive metabolic 2000 panelon 08-26-2022 Albumin [Mass/Vol] 4.2 g/dL 3.9 - 4.9 g/dL [facility] ALP [Catalytic activity/Vol] 71 U/L 38 - 113 U/L [facility] ALT [Catalytic activity/Vol] 13 U/L 10 - 54 U/L [facility] Anion gap [Moles/Vol] 8 mmol/L Low 9 - 18 mmol/L [facility] AST [Catalytic activity/Vol] 27 U/L 14 - 40 U/L [facility] Bilirubin [Mass/Vol] 0.4 mg/dL 0.2 - 1.3 mg/dL [facility] Calcium [Mass/Vol] 9.1 mg/dL 8.5 - 10. 2 mg/dL [facility] Chloride [Moles/Vol] 108 mmol/L High 97 - 105 mmol/L [facility] CO2 [Moles/Vol] 25 mmol/L 22 - 30 mmol/L [facility] Creatinine [Mass/Vol] 0.67 mg/dL Low 0.73 - 1.22 mg/dL [facility] Estimated Glomerular Filtration Rate 114 mL/min/1.73m >=60 mL/min/1.73m [facility] Glucose [Mass/Vol] 103 mg/dL High 74 - 99 mg/dL [facility] Potassium [Moles/Vol] 4.2 mmol/L 3.7 - 5.1 mmol/L [facility] Protein [Mass/Vol] 6.8 g/dL 6.3 - 8.0 g/dL [facility] Sodium [Moles/Vol] 141 mmol/L 136 - 144 mmol/L [facility] Urea nitrogen [Mass/Vol] 19 mg/dL 9 - 24 mg/dL [facility] CBC W Auto Differential pane l (Bld)on 08-05-2022 Basophils (Bld) [#/Vol] 0.03 10*3/uL <0.11 k/uL [facility] Basophils/100 WBC (Bld) 0.8 % [facility] Differential cell count method Nom (Bld) Auto [facility] Eosinophils (Bld) [#/Vol] 0.20 10*3/uL <0.46 k/uL [facility] Eosinophils/100 WBC (Bld) 5.6 % [facility] Erythrocyte distribution width (RBC) [Ratio] 15.1 % High 11.5 - 15.0 % [facility] Hematocrit (Bld) [Volume fraction] 39.3 % 39.0 - 51.0 % [facility] Hemoglobin (Bld) [Mass/Vol] 13.6 g/dL 13.0 - 17.0 g/dL [facility] Immature granulocytes (Bld) [#/Vol] <0.10 k/uL [facility] Immature granulocytes/100 WBC (Bld) 0.3 % [facility] Lymphocytes (Bld) [#/Vol] 0.56 10*3/uL Low 1.00 - 4.00 k/uL [facility] Lymphocytes/100 WBC (Bld) 15.8 % [facility] MCH (RBC) [Entitic mass] 33.2 pg 26.0 - 34.0 pg [facility] MCHC (RBC) [Mass/Vol] 34.6 g/dL 30.5 - 36.0 g/dL [facility] MCV (RBC) [Entitic vol] 95.9 fL 80.0 - 100.0 fL [facility] Monocytes (Bld) [#/Vol] 0.43 10*3/uL <0.87 k/uL [facility] Monocytes/100 WBC (Bld) 12.1 % [facility] Neutrophils (Bld) [#/Vol] 2.31 10*3/uL 1.45 - 7.50 k/uL [facility] Neutrophils/100 WBC (Bld) 65.4 % [facility] Nucleated RBC (Bld) [#/Vol] <0.01 k/uL [facility] Nucleated RBC/100 WBC (Bld) [Ratio] 0.0 /100 WBC [facility] Platelet mean volume (Bld) [Entitic vol] 9.8 fL 9.0 - 12.7 fL [facility] Platelets (Bld) [#/Vol] 160 10*3/uL 150 - 400 k/uL [facility] RBC (Bld) [#/Vol] 4.10 10*6/uL Low 4.20 - 6.0 0 m/uL [facility] WBC (Bld) [#/Vol] 3.54 10*3/uL Low 3.70 - 11. 00 k/uL [facility] Comprehensive metabolic 2000 panelon 08-05-2022 Albumin [Mass/Vol] 4.0 g/dL 3.9 - 4.9 g/dL [facility] ALP [Catalytic activity/Vol] 72 U/L 38 - 113 U/L [facility] ALT [Catalytic activity/Vol] 14 U/L 10 - 54 U/L [facility] Anion gap [Moles/Vol] 11 mmol/L 9 - 18 mmol/L [facility] AST [Catalytic activity/Vol] 19 U/L 14 - 40 U/L [facility] Bilirubin [Mass/Vol] 0.4 mg/dL 0.2 - 1.3 mg/dL [facility] Calcium [Mass/Vol] 9.1 mg/dL 8.5 - 10. 2 mg/dL [facility] Chloride [Moles/Vol] 106 mmol/L High 97 - 105 mmol/L [facility] CO2 [Moles/Vol] 20 mmol/L Low 22 - 30 mmol/L [facility] Creatinine [Mass/Vol] 0.68 mg/dL Low 0.73 - 1.22 mg/dL [facility] Estimated Glomerular Filtration Rate 114 mL/min/1.73m >=60 mL/min/1.73m [facility] Glucose [Mass/Vol] 155 mg/dL High 74 - 99 mg/dL [facility] Potassium [Moles/Vol] 4.0 mmol/L 3.7 - 5.1 mmol/L [facility] Protein [Mass/Vol] 6.4 g/dL 6.3 - 8.0 g/dL [facility] Sodium [Moles/Vol] 137 mmol/L 136 - 144 mmol/L [facility] Urea nitrogen [Mass/Vol] 16 mg/dL 9 - 24 mg/dL [facility] CBC W Auto Differential pane l (Bld)on 06-24-2022 Abs Immature Gran <0.10 k/uL [facility] Basophils (Bld) [#/Vol] 0.04 10*3/uL <0.11 k/uL [facility] Basophils/100 WBC (Bld) 0.7 % [facility] Differential cell count method Nom (Bld) Auto [facility] Eosinophils (Bld) [#/Vol] 0.28 10*3/uL <0.46 k/uL [facility] Eosinophils/100 WBC (Bld) 5.1 % [facility] Erythrocyte distribution width (RBC) [Ratio] 14.6 % 11.5 - 15.0 % [facility] Hematocrit (Bld) [Volume fraction] 40.0 % 39.0 - 51.0 % [facility] Hemoglobin (Bld) [Mass/Vol] 13.7 g/dL 13.0 - 17.0 g/dL [facility] Immature Gran % 0.4 % [facility] Lymphocytes (Bld) [#/Vol] 0.50 10*3/uL Low 1.00 - 4.00 k/uL [facility] Lymphocytes/100 WBC (Bld) 9.1 % [facility] MCH (RBC) [Entitic mass] 32.5 pg 26.0 - 34.0 pg [facility] MCHC (RBC) [Mass/Vol] 34.3 g/dL 30.5 - 36.0 g/dL [facility] MCV (RBC) [Entitic vol] 94.8 fL 80.0 - 100.0 fL [facility] Monocytes (Bld) [#/Vol] 0.55 10*3/uL <0.87 k/uL [facility] Monocytes/100 WBC (Bld) 10.0 % [facility] Neutrophils (Bld) [#/Vol] 4.13 10*3/uL 1.45 - 7.50 k/uL [facility] Neutrophils/100 WBC (Bld) 74.7 % [facility] Nucleated RBC (Bld) [#/Vol] <0.01 k/uL [facility] Nucleated RBC/100 WBC (Bld) [Ratio] 0.0 /100 WBC [facility] Platelet mean volume (Bld) [Entitic vol] 9.9 fL 9.0 - 12.7 fL [facility] Platelets (Bld) [#/Vol] 259 10*3/uL 150 - 400 k/uL [facility] RBC (Bld) [#/Vol] 4.22 10*6/uL 4.20 - 6.0 0 m/uL [facility] WBC (Bld) [#/Vol] 5.52 10*3/uL 3.70 - 11. 00 k/uL [facility] Comprehensive metabolic 2000 panelon 06-24-2022 Albumin [Mass/Vol] 4.5 g/dL 3.9 - 4.9 g/dL [facility] ALP [Catalytic activity/Vol] 85 U/L 38 - 113 U/L [facility] ALT [Catalytic activity/Vol] 15 U/L 10 - 54 U/L [facility] Anion gap [Moles/Vol] 8 mmol/L Low 9 - 18 mmol/L [facility] AST [Catalytic activity/Vol] 21 U/L 14 - 40 U/L [facility] Bilirubin [Mass/Vol] 0.4 mg/dL 0.2 - 1.3 mg/dL [facility] Calcium [Mass/Vol] 9.6 mg/dL 8.5 - 10. 2 mg/dL [facility] Chloride [Moles/Vol] 103 mmol/L 97 - 105 mmol/L [facility] CO2 [Moles/Vol] 26 mmol/L 22 - 30 mmol/L [facility] Creatinine [Mass/Vol] 0.81 mg/dL 0.73 - 1.22 mg/dL [facility] Estimated Glomerular Filtration Rate 109 mL/min/1.73m >=60 mL/min/1.73m [facility] Glucose [Mass/Vol] 92 mg/dL 74 - 99 mg/dL [facility] Potassium [Moles/Vol] 4.3 mmol/L 3.7 - 5.1 mmol/L [facility] Protein [Mass/Vol] 7.2 g/dL 6.3 - 8.0 g/dL [facility] Sodium [Moles/Vol] 137 mmol/L 136 - 144 mmol/L [facility] U[facility] nitrogen [Mass/Vol] 12 mg/dL 9 - 24 mg/dL [facility] MRI RECTUM WO/W IVCONon 07- [facility] HISTORY PHYSICALon HISTORY PHYSICAL HNO ID: [id number] Author: Aleksandra Lim PA-C Service: ? Author Type: Physician Service Inspector Type: HANDP Filed: 02/16/2022 9:11 AM Note Text: HISTORY AND PHYSICAL EXAMINATION SERVICE DATE: 02/16/2022 SERVICE TIME: 8:49 AM PRIMARY CARE PHYSICIAN: No primary care provider on file. 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 No neurological symptoms or problems. Respiratory: No history of current cough or dyspnea, or pneumonia in the past 6 weeks. No history of respiratory/pulmonary symptoms or problems. Cardiovascular: +severe TR with right atrial and ventricular dilation Negative for Recent TX, Angina, Arrhythmia, CAD, Chest Pain GI: See [...] Pulses: Carotid (more content not included)... Normal [facility] MRI RECTUM WO/W IVCONon 04-[address] [facility] [address] Abdomen and Pelvis W cont rast Mukund 01-13-2022 IMPRESSION: 1. Improved appearance to wall thickening involving the sigmoid colon. 2. No CT evidence for metastatic disease to the abdomen or pelvis. Transcribe Date/Time: Jan 13 2022 10:03A Dictated by: DUC SARABIA MD This examination was interpreted and the report reviewed and electronically signed by: DUC SARABIA MD on Jan 13 2022 10:13AM EST Thank you for allowing us to participate in the care of your patient. Should there be any questions regarding this interpretation, please call [phone]. If you are unable to reach us at the number above, please feel free to contact [facility]iology at [phone]. 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 MQ: CTAP_3 Contrast: IV: 125 ml of Omnipaque 300 Oral: 900 ml of 50ML Omnipaque [address] Radiation dose: Integrated Dose-length product (DLP) for this visit = mGy*cm. CT Dose Reduction Employed: Automated exposure control (AEC) COMPARISON: 09/16/2021. RESULT: Liver: No mass. Biliary Tract: No bile duct dilation. The gallbladder appears unremarkable. Spleen: No splenomegaly. No mass. Pancreas: No mass or ductal dilatation. Adrenal glands: No mass. Kidneys: No enhancing mass or hydronephrosis. GI Tract: No bowel wall thickening or dilation. Wall thickening involving the sigmoid colon appears improved. Lymph nodes: No substantial mesenteric, retroperitoneal, or pelvic lymphadenopathy. Mesentery: No ascites. No mass. Retroperitoneum: No mass. Vasculature: - Abdominal aorta and iliac arteries: No aneurysm - Celiac and SMA: Patent. - Portal venous system (SMV, splenic vein, portal vein and branches): Patent. - Hepatic veins: Patent. Pelvis: No free fluid or pelvic mass. Postoperative changes right inguinal region, compatible with prior inguinal hernia repair. No substantial inguinal adenopathy. Bones/Soft Tissues: Mild degenerative change within the lumbar spine. 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 Lower Thorax: A CT examination of the chest has been performed concurrently and will be dictated separately. Technical Communicator (topogram) images: No additional findings. 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 MQ: CTAP_3 Contrast: IV: 125 ml of Omnipaque 300 Oral: 900 ml of 50ML Omnipaque [address] Radiation dose: Integrated Dose-length product (DLP) for this visit = mGy*cm. CT Dose Reduction Employed: Automated exposure control (AEC) COMPARISON: 09/16/2021. RESULT: Liver: No mass. Biliary Tract: No bile duct dilation. The gallbladder appears unremarkable. Spleen: No splenomegaly. No mass. Pancreas: No mass or ductal dilatation. Adrenal glands: No mass. Kidneys: No enhancing mass or hydronephrosis. GI Tract: No bowel wall thickening or dilation. Wall thickening involving the sigmoid colon appears improved. Lymph nodes: No substantial mesenteric, retroperitoneal, or pelvic lymphadenopathy. Mesentery: No ascites. No mass. Retroperitoneum: No mass. Vasculature: - Abdominal aorta and iliac arteries: No aneurysm - Celiac and SMA: Patent. - Portal venous system (SMV, splenic vein, portal vein and branches): Patent. - Hepatic veins: Patent. Pelvis: No free fluid or pelvic mass. Postoperative changes right inguinal region, compatible with prior inguinal hernia repair. No substantial inguinal adenopathy. Bones/Soft Tissues: Mild degenerative change within the lumbar spine. 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 Lower Thorax: A CT examination of the chest has been performed concurrently and will be dictated separately. Technical Communicator (topogram) images: No additional findings. IMPRESSION IMPRESSION: 1. Improved appearance to wall thickening involving the sigmoid colon. 2. No CT evidence for metastatic disease to the abdomen or pelvis. Transcribe Date/Time: Jan 13 2022 10:03A Dictated by: DUC SARABIA MD This examination was interpreted and the report reviewed and electronically signed by: DUC SARABIA MD on Jan 13 2022 10:13AM EST Thank you for allowing us to participate in the care of your patient. Should there be any questions regarding this interpretation, please call [phone]. If you are unable to reach us at the number above, please feel free to contact [facility]iology at [phone]. [facility] CT Abdomen and Pelvis W cont rast IVOrdered By: [facility] Provider on 01-13-[address] [facility] [address] Chest W contrast Mukund IMPRESSION: 1. Numerous bilateral 5 mm or less pulmonary nodules are identified. Correlation with follow-up summations is recommended to assess for stability. 2. Borderline prominent right hilar and subcarinal lymph nodes. These can also be further assessed on follow-up studies. Transcribe Date/Time: Jan 13 2022 9:29A Dictated by: DUC SARABIA MD This examination was interpreted and the report reviewed and electronically signed by: DUC SARABIA MD on Jan 13 2022 10:14AM EST Thank you for allowing us to participate in the care of your patient. Should there be any questions regarding this interpretation, please call [phone]. If you are unable to reach us at the number above, please feel free to contact [facility] at [phone]. 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 M: CTCW_4 Contrast: 125 mL Omnipaque [address] Dose-Length Product: 492 mGy*cm CT Dose Reduction Employed: Automated exposure control (AEC) Comparison: None. RESULT: Limitations: None. Lines, tubes, and devices: None.. Lung parenchyma , airways, and pleural space: No consolidative process or pleural effusion. The trachea and major airways appear patent. Patchy right lower lobe groundglass opacities are appreciated, likely infectious/inflammatory in nature. Mild, diffuse bronchial wall thickening is appreciated. Mild centrilobular and paraseptal emphysematous changes are noted. Numerous bilateral 5 mm or less pulmonary nodules are identified: For example, on the right, images 34, 80, 111, 116, 133, series 3. On the left, for example, images 29, 39, 45, 58, 109, 143, series 3. Lower neck, lymph nodes, and mediastinum: The visualized thyroid gland appears unremarkable. No substantial supraclavicular or axillary lymphadenopathy is appreciated. Numerous subcentimeter mediastinal lymph nodes are identified minimally prominent subcarinal lymph node measuring 1.6 x 0.9 cm is appreciated. The left hilum appears unremarkable. Mild right infrahilar soft tissue prominence measuring approximately 1.4 x 0.9 cm, image 104, series 2. Soft tissue prominence more superiorly at the right hilum measuring 1.2 x 1.0 cm is appreciated. Heart, pericardium, and thoracic vessels: The thoracic aorta is normal in caliber. No substantial pericardial effusion is identified. Bones/Soft Tissues: Degenerative change involving the thoracic spine. No osseous destructive process is appreciated. Upper Abdomen: A CT examination of the abdomen has been performed concurrently and will be dictated separately. Technical Communicator (topogram) images: No additional findings. 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 M: CTCW_4 Contrast: 125 mL Omnipaque [address] Dose-Length Product: 492 mGy*cm CT Dose Reduction Employed: Automated exposure control (AEC) Comparison: None. RESULT: Limitations: None. Lines, tubes, and devices: None.. Lung parenchyma , airways, and pleural space: No consolidative process or pleural effusion. The trachea and major airways appear patent. Patchy right lower lobe groundglass opacities are appreciated, likely infectious/inflammatory in nature. Mild, diffuse bronchial wall thickening is appreciated. Mild centrilobular and paraseptal emphysematous changes are noted. Numerous bilateral 5 mm or less pulmonary nodules are identified: For example, on the right, images 34, 80, 111, 116, 133, series 3. On the left, for example, images 29, 39, 45, 58, 109, 143, series 3. Lower neck, lymph nodes, and mediastinum: The visualized thyroid gland appears unremarkable. No substantial supraclavicular or axillary lymphadenopathy is appreciated. Numerous subcentimeter mediastinal lymph nodes are identified minimally prominent subcarinal lymph node measuring 1.6 x 0.9 cm is appreciated. The left hilum appears unremarkable. Mild right infrahilar soft tissue prominence measuring approximately 1.4 x 0.9 cm, image 104, series 2. Soft tissue prominence more superiorly at the right hilum measuring 1.2 x 1.0 cm is appreciated. Heart, pericardium, and thoracic vessels: The thoracic aorta is normal in caliber. No substantial pericardial effusion is identified. Bones/Soft Tissues: Degenerative change involving the thoracic spine. No osseous destructive process is appreciated. Upper Abdomen: A CT examination of the abdomen has been performed concurrently and will be dictated separately. Technical Communicator (topogram) images: No additional findings. IMPRESSION IMPRESSION: 1. Numerous bilateral 5 mm or less pulmonary nodules are identified. Correlation with follow-up summations is recommended to assess for stability. 2. Borderline prominent right hilar and subcarinal lymph nodes. These can also be further assessed on follow-up studies. Transcribe Date/Time: Jan 13 2022 9:29A Dictated by: DUC SARABIA MD This examination was interpreted and the report reviewed and electronically signed by: DUC SARABIA MD on Jan 13 2022 10:14AM EST Thank you for allowing us to participate in the care of your patient. Should there be any questions regarding this interpretation, please call [phone]. If you are unable to reach us at the number above, please feel free to contact [facility]iology at [phone]. [facility] No Panel Informationon 01-13 Radiology Study observation (narrative) [facility] Drug Screen,Urineon 12-24-19 22 Amphetamine Screen,Urine Negative Normal Negative [facility] Comment on above: Performed By: #### U RDS #### [place] [address] [place] Barbiturate Screen,Urine Negative Normal Negative [facility] Comment on above: Performed By: #### U RDS #### [place] [address] [place] Benzodiazepines Screen,Urine Negative Normal Negative [facility] Comment on above: Performed By: #### U RDS #### [address] Cannabinoid Screen,Urine Positive High Negative [facility] Comment on above: Result Comment: Thes e are unconfirmed results and should not be used for legal purposes. Drug Cut-Off Concentration: AMPH 1000 ng/mL SAM 200 ng/mL ROYER 200 ng/mL COCM 300 ng/mL OP 300 ng/mL PCP 25 ng/mL THC 20 ng/mL PERFORMED BY: [place] [address] PATHOLOGIST [employer] SOFTWARE VERIFICATION ENGINEER BRISEYDA FAULKNER M.D. Performed By: #### U RDS #### [place] [address] [place] Cocaine Screen,Urine Negative Normal Negative [facility] Comment on above: Performed By: #### U RDS #### [address] [place] [address] [place] Opiate Screen,Urine Negative Normal Negative [facility] Comment on above: Performed By: #### U RDS #### [facility] [address] [id number] [facility] Phencyclidine Screen,Urine Negative Normal Negative [facility] Comment on above: Performed By: #### U RDS #### [facility] [address] [id number] [facility] Anam 12-24-2021 L ---- Specimen: [id number] Received: 12/27/21 Status: SHAHANA Hidalgo Num: [id number] Spec Type: Surgical Subm Dr: Kishan Jaquez Jr, DO Tissues: A Duodenum - Biopsy (DUODENUM) B Colon Biopsy (RECTOSIGMOID) Procedures: HE Stain/4, Gross/Micro L4/2 Patient Age/Sex Location Account Attending Physician Hoang Dorado/M [id number] Kishan Jaquez Jr, DO SPEC NUM: [id number] RECD: 12/27/21 STATUS: SHAHANA HIDALGO NUM: [id number] YVAN: 12/24/21[facility] DR: Kishan Jaquez Jr, DO ENTERED: 12/27/21 [facility] DR: LUZ ELENA TYPE: Surgical DEPT: S [...] pathologist, concurs with the above diagnosis. Specimen: [id number] Received: 12/27/21 Status: SHAHANA Hidalgo Num: [id number] Spec Type: Surgical Subm Dr: Kishan Jaquez Jr, DO Tissues: A Duodenum - Biopsy (DUODENUM) B Colon Biopsy (RECTOSIGMOID) Procedures: HE Stain/4, Gross/Micro L4/2 Patient: Alvino Doradoolas [id number] (Continued) Specimen: Received: 12/27/21 (Continued) Signed (signature on file) Jorge Mc MD 12/28/21 1718 Specimen: Received: 12/27/21 Status: SHAHANA Hidalgo Num: [id number] Spec Type: Surgical Subm Dr: Kishan Jaquez Jr, DO Tissues: A Duodenum - Biopsy (DUODENUM) B Colon Biopsy (RECTOSIGMOID) Procedures: HE Stain/4, Gross/Micro L4/2 Patient: Hoang Dorado [id number] (Continued) Specimen: [id number] Received: 12/27/21 (Continued) Clinical Information Abdominal pain, diarrhea, weight loss nausea and vomiting Gross Description A. Received in formalin labeled with the patient's name, number and duodenum rule out celiac are 2 dudley tissue fragments, 0.3 cm and 0.5 cm. Entirely submitted in one cassette labeled A1. Type of Fixative: 10% Neutral Buffered Formalin (/YJ) B. Received in formalin labeled with the patient's name, number and biopsies colon mass rectosigmoid are multiple dudley tissue fragments aggregating 1.3 x 1 x 0.3 cm. Entirely submitted in one cassette labeled B1. Type of Fixative: 10% Neutral Buffered Formalin (/YJ) Microscopic Description A. Two glass slides with [...] characteristics were determined by the Laboratory of [facility]. Immunohistochemistry assays have not been validated on decalcified tissue. Results should be interpreted with caution given the possibility of false negative results on decalcified specimens. They have not been cleared by the [place] Food and Drug Administration. The FDA has determined that such clearance or approval is not (more content not included)... Normal [facility] COVID-19 FRon 12-22-2021 SARS-CoV-2 (COVID-19) RNA FÉLIX+probe Ql (Unsp spec) Negative Normal Negative [facility] Comment on above: Order Comment: Healt hcare Worker?: N Result Comment: Testing for SARS-CoV-2 by RT-PCR This test was developed and its performance characteristics determined by [employer] and validated at the [facility]. This test has not been FDA [...] is terminated or revoked sooner. PERFORMED BY: [place] [address] PATHOLOGIST [employer]MWARE SOFTWARE VERIFICATION ENGINEER BRISEYDA FAULKNER M.D. Performed By: #### C OVID 19 [facility] #### [address] LACTOFERRIN FECAL QUANTon Lactoferrin, Fecal, Quant. 5.75 ug/mL(g) Normal 0.00-7.24 [facility] Comment on above: Result Comment: . Baseline [...] (IBS). Performed By: #### L ACTFQ #### [facility] [address] [place] [address] [address] Nazia Faria CALPROTECTIN, FECALon 2021 Calprotectin, Fecal 139 ug/g Critically high 0-120 [facility] Comment on above: Result Comment: Conc entration Interpretation Follow-Up <16 - 50 ug/g Normal None >50 -120 ug/g Borderline Re-evaluate in 4-6 weeks >120 ug/g Abnormal Repeat as clinically indicated Performed By: #### C ALPOO #### [facility] [address] [place] [address] Dr. Nazia Faria CLOSTRIDIUM DIFFICILE PCRon 12-02-2021 C difficile Toxin Gene FÉLIX Negative Normal Negative [facility] Comment on above: Performed By: #### C DIFNAA #### [facility] [address] [place] [address] Dr. Nazia Faria GIARDIA LAMBLIA DETECTIONon 12-01-2021 Giardia lamblia Ag, EIA Negative Normal Negative [facility] Comment on above: Performed By: #### G IARDIA #### [facility] [address] [place] [address] Dr. Nazia Faria CELIAC ANTIBODIES PROFILEon 11-30-2021 Deamidated Gliadin Abs, IgA 5 units Normal 0-19 [facility] Comment on above: Result Comment: Nega tive 0 - 19 Weak Positive 20 - 30 Moderate to Strong Positive >30 Performed By: #### C ELIACP #### [facility] [address] [place] [address] [address] Nazia Faria Deamidated Gliadin Abs, IgG 2 units Normal 0-19 [facility] Comment on above: Result Comment: Nega tive 0 - 19 Weak Positive 20 - 30 Moderate to Strong Positive >30 Performed By: #### C ELIACP #### [facility] [address] [place] [address] Dr. Nazia Faria Endomysial Antibody IgA Positive Abnormal Negative [facility] Comment on above: Performed By: #### C ELIACP #### [facility] [address] [place] [address] Dr. Nazia Faria Immunoglobulin A, Qn, Serum 9 mg/dL Critically low 90-386 [facility] Comment on above: Result Comment: Resu lt confirmed on concentration. Performed By: #### C ELIACP #### [facility] [address] [place] [address] Dr. Nazia Faria t-Transglutaminase (tTG) IgA <2 Normal 0-3 [facility] Comment on above: Result Comment: Nega tive 0 - 3 Weak Positive 4 - 10 Positive >10 . Tissue Transglutaminase (tTG) has been identified as the endomysial antigen. Studies have demonstr- ated that endomysial IgA antibodies have over 99% specificity for gluten sensitive enteropathy. Performed By: #### C ELIACP #### [facility] [address] [place] [address] Dr. Nazia Faria t-Transglutaminase (tTG) IgG 4 U/mL Normal 0-5 [facility] Comment on above: Result Comment: Nega tive 0 - 5 Weak Positive 6 - 9 Positive >9 Performed By: #### C ELIACP #### [facility] [address] [place] [address] Dr. Nazia Faria HIV 1 AND 2 WITH REFLEXon HIV Screen 4th Generation wRfx Non-Reactive Normal Non Reactive [facility] Comment on above: Result Comment: HIV Negative HIV-1/HIV-2 antibodies and HIV-1 p24 antigen were NOT detected. There is no laboratory evidence of HIV infection. Performed By: #### C BC #### [facility] [address] [place] [address] [address] Nazia Faria CBC AUTO DIFFon 11-29-2021 BASO # 0.1 103/ul Normal 0.0-0.1 [facility] Comment on above: Performed By: #### C BC #### [facility] [address] [place] [address] Dr. Nazia Faria Basophils/100 WBC (Bld) 0.6 % Normal 0.2-2.0 [facility] Comment on above: Performed By: #### C BC #### [facility] [address] [place] [address] Dr. Nazia Faria EO # 0.2 103/ul Normal 0.0-0.7 [facility] Comment on above: Performed By: #### C BC #### [facility] [address] [place] [address] Dr. Nazia Faria Eosinophils/100 WBC (Bld) 2.4 % Normal 0.9-7.0 [facility] Comment on above: Performed By: #### C BC #### [facility] [address] [place] [address] Dr. Nazia Faria Erythrocyte distribution width (RBC) [Ratio] 13.0 % Normal 11.0-15.0 [facility] Comment on above: Performed By: #### C BC #### [facility] [address] [place] [address] Dr. Nazia Faria Hematocrit (Bld) [Volume fraction] 42.8 % Normal 42.0-54.0 [facility] Comment on above: Performed By: #### C BC #### [facility] [address] [place] [address] Dr. Nazia Faria Hemoglobin (Bld) [Mass/Vol] 14.1 g/dL Normal 14.0-18.0 [facility] Comment on above: Performed By: #### C BC #### [facility] [address] [place] [address] Dr. Nazia Faria IG # 0.03 10e3/ul Normal 0.00-0.03 [facility] Comment on above: Performed By: #### C BC #### [facility] [address] [place] [address] Dr. Nazia Faria IG % 0.4 % Normal 0.0-0.5 [facility] Comment on above: Performed By: #### C BC #### [facility] [address] [place] [address] Dr. Nazia Faria LYMPH # 1.5 103/ul Normal 1.2-3.8 [facility] Comment on above: Performed By: #### C BC #### [facility] [address] [place] [address] Dr. Nazia Faria Lymphocytes/100 WBC (Bld) 17.9 % Critically low 20.5-60.0 [facility] Comment on above: Performed By: #### C BC #### [facility] [address] [place] [address] Dr. Nazia Faria MANUAL DIFF REQ NO Normal [facility] Comment on above: Performed By: #### C BC #### [facility] [address] [place] [address] Dr. Nazia Faria MCH (RBC) [Entitic mass] 30.5 pg Normal 25.9-34.0 [facility] Comment on above: Performed By: #### C BC #### [facility] [address] [place] [address] Dr. Nazia Faria MCHC (RBC) [Mass/Vol] 32.9 g/dL Normal 29.9-35.2 [facility] Comment on above: Performed By: #### C BC #### [facility] [address] [place] [address] Dr. Nazia Faria MCV (RBC) [Entitic vol] 92.4 fL Normal 80.0-94.0 [facility] Comment on above: Performed By: #### C BC #### [facility] [address] [place] [address] Dr. Nazia Faria MONO # 0.7 103/ul Normal 0.3-0.8 [facility] Comment on above: Performed By: #### C BC #### [facility] [address] [place] [address] Dr. Nazia Faria Monocytes/100 WBC (Bld) 8.3 % Normal 1.7-12.0 [facility] Comment on above: Performed By: #### C BC #### [facility] [address] [place] [address] Dr. Nazia Faria NEUT # 5.7 103/ul Normal 1.4-6.5 [facility] Comment on above: Performed By: #### C BC #### [facility] [address] [place] [address] Dr. Nazia Faria Neutrophils/100 WBC (Bld) 70.4 % Normal 43.0-75.0 [facility] Comment on above: Performed By: #### C BC #### [facility] [address] [place] [address] Dr. Nazia Faria Platelet mean volume (Bld) [Entitic vol] 10.3 fL Normal 9.5-13.5 [facility] Comment on above: Performed By: #### C BC #### [facility] [address] [place] [address] Dr. Nazia Faria PLT 379 103/ul Normal 150-450 [facility] Comment on above: Performed By: #### C BC #### [facility] [address] [place] [address] Dr. Nazia Faria RBC 4.63 106/ul Critically low 4.70-6.10 [facility] Comment on above: Performed By: #### C BC #### [facility] [address] [place] [address] Dr. Nazia Faria WBC 8.1 103/ul Normal 4.0-11.0 [facility] Comment on above: Performed By: #### C BC #### [facility] [address] [place] [address] Dr. Nazia Faria CULTURE STOOLon 11-29-2021 CULTURE STOOL Culture Observations : NO GROWTH SALMONELLA, SHIGELLA, YERSINIA, CAMPY, E.COLI 0157, OR STAPH AT 72 HRS Normal [facility] Comment on above: Performed By: #### C BC #### [facility] [address] [place] [address] Dr. Nazia Faria LIPID PROFILEon 11-29-2021 CHOL-HDL RATIO NORM SEE BELOW Normal [facility] Comment on above: Result Comment: 3.3 - 4.4 LOW RISK 4.4 - 7.1 AVERAGE RISK 7.1 - 11.0 MODERATE RISK >11.0 HIGH RISK Performed By: #### C BC #### [facility] [address] [place] [address] Dr. Nazia Faria Cholesterol [Mass/Vol] 170 mg/dL Normal <=200 [facility] Comment on above: Performed By: #### C BC #### [facility] [address] [place], [place] [address] Dr. Nazia Faria Cholesterol in HDL [Mass/Vol] 48 mg/dL Normal [facility] Comment on above: Performed By: #### C BC #### [facility] [address] [place], [place] [address] Dr. Nazia Faria Cholesterol in LDL [Mass/Vol] 111.4 mg/dL Normal [facility] Comment on above: Performed By: #### C BC #### [facility] [address] [place] [address] [address] Nazia Faria Cholesterol.total/C holesterol in HDL [Mass ratio] 3.5 {ratio} Normal [facility] Comment on above: Performed By: #### C BC #### [facility] [address] [place] [address] [address] Nazia Faria HDL NORMAL > or = 60 mg/dl - LO W CARDIOVASCULAR RISK <40 mg/dl - HIGH CARDIOVASCULAR RISK Normal [facility] Comment on above: Performed By: #### C BC #### [facility] [address] [place] [address] Dr. Nazia Faria LDL CALC NORMAL SEE BELOW Normal [facility] Comment on above: Result Comment: <100 mg/dl OPTIMAL 100 - 129 mg/dl NEAR OR ABOVE OPTIMAL 130 - 159 mg/dl BORDERLINE HIGH 160 - 189 mg/dl HIGH >190 mg/dl VERY HIGH Performed By: #### C BC #### [facility] [address] [address] [address] Nazia Faria Triglyceride [Mass/Vol] 53 mg/dL Normal <=150 [facility] Comment on above: Performed By: #### C BC #### [facility] [address] [address] [address] Nazia Faria VLDL CALC 10.6 mg/dL Normal [facility] Comment on above: Performed By: #### C BC #### [facility] [address] [place] [address] Dr. Nazia Faria PROF 14(COMP METB)on 022 Albumin [Mass/Vol] 3.6 g/dL Normal 3.5-5.0 [facility] Comment on above: Performed By: #### C BC #### [facility] [address] [place] [address] Dr. Nazia aFria Albumin/Globulin [Mass ratio] 0.9 {ratio} Normal [facility] Comment on above: Performed By: #### C BC #### [facility] [address] [address] [address] Nazia Faria ALP [Catalytic activity/Vol] 104 U/L Normal 38-126 [facility] Comment on above: Performed By: #### C BC #### [facility] [address] [address] [address] Nazia Faria ALT [Catalytic activity/Vol] 16 U/L Critically low 21-72 [facility] Comment on above: Performed By: #### C BC #### [facility] [address] [place] [address] Dr. Nazia Faria Anion gap [Moles/Vol] 11.3 mmol/L Normal [facility] Comment on above: Performed By: #### C BC #### [facility] [address] [place] [address] Dr. Nazia Faria AST [Catalytic activity/Vol] 14 U/L Critically low 17-59 [facility] Comment on above: Performed By: #### C BC #### [facility] [address] [place] [address] Dr. Nazia Faria Bilirubin [Mass/Vol] 0.6 mg/dL Normal 0.2-1.3 [facility] Comment on above: Performed By: #### C BC #### [facility] [address] [place] [address] Dr. Nazia Faria Calcium [Mass/Vol] 9.1 mg/dL Normal 8.4-10.2 [facility] Comment on above: Performed By: #### C BC #### [facility] [address] [address] [address] Nazia Faria Chloride [Moles/Vol] 105 mmol/L Normal 98-107 [facility] Comment on above: Performed By: #### C BC #### [facility] [address] [address] [address] Nazia Faria CO2 [Moles/Vol] 25.8 mmol/L Normal 22.0-30.0 [facility] Comment on above: Performed By: #### C BC #### [facility] [address] [place] [address] Dr. Nazia Faria Creatinine [Mass/Vol] 0.78 mg/dL Normal 0.66-1.25 [facility] Comment on above: Performed By: #### C BC #### [facility] [address] [place] [address] Dr. Nazia Faria EGFR-AF BAHRAINI >60 Normal >=60 [facility] Comment on above: Performed By: #### C BC #### [facility] [address] [place] [address] Dr. Nazia Faria EGFR-NON AF BAHRAINI >60 Normal >=60 [facility] Comment on above: Performed By: #### C BC #### [facility] [address] [place] [address] Dr. Nazia Faria Globulin (S) [Mass/Vol] 4.1 g/dL Normal [facility] Comment on above: Performed By: #### C BC #### [facility] [address] [place] [address] Dr. Nazia Faria Glucose [Mass/Vol] 95 mg/dL Normal 74-106 [facility] Comment on above: Performed By: #### C BC #### [facility] [address] [place] [address] Dr. Nazia Faria Potassium [Moles/Vol] 4.1 mmol/L Normal 3.4-5.0 [facility] Comment on above: Performed By: #### C BC #### [facility] [address] [place] [address] Dr. Nazia Faria Protein [Mass/Vol] 7.7 g/dL Normal 6.1-8.2 [facility] Comment on above: Performed By: #### C BC #### [facility] [address] [place] [address] Dr. Nazia Faria Sodium [Moles/Vol] 138 mmol/L Normal 137-145 [facility] Comment on above: Performed By: #### C BC #### [facility] [address] [place] [address] Dr. Nazia Faria Urea nitrogen [Mass/Vol] 23.0 mg/dL Critically high 9.0-20.0 [facility] Comment on above: Performed By: #### C BC #### [facility] [address] [place] [address] Dr. Nazia Faria Urea nitrogen/Creatinine [Mass ratio] 29.5 mg/mg Normal [facility] Comment on above: Performed By: #### C BC #### [facility] [address] [place] [address] Dr. Nazia Faria TSHon 11-29-2021 TSH 1.178 uIU/mL Normal 0.470-4.680 [facility] Comment on above: Performed By: #### C BC #### [facility] [address] [place] [address] Dr. Nazia Faria TSH RANGE SEE BELOW Normal [facility] Comment on above: Result Comment: <0.3 4 UIU/ml HYPERTHYROID 0.34-5.60 UIU/ml EUTHYROID >5.60 UIU/ml HYPOTHYROID Performed By: #### C BC #### [facility] [address] [place] [address] Dr. Nazia Faria CBC AUTO DIFFon 09-16-2021 BASO # 0.1 103/ul Normal 0.0-0.1 [facility] Comment on above: Performed By: #### C BC #### [facility] [address] [place] [address] Dr. Nazia Faria Basophils/100 WBC (Bld) 1.0 % Normal 0.2-2.0 [facility] Comment on above: Performed By: #### C BC #### [facility] [address] [place] [address] Dr. Nazia Faria EO # 0.2 103/ul Normal 0.0-0.7 [facility] Comment on above: Performed By: #### C BC #### [facility] [address] [place] [address] Dr. Nazia Faria Eosinophils/100 WBC (Bld) 2.8 % Normal 0.9-7.0 [facility] Comment on above: Performed By: #### C BC #### [facility] [address] [place] [address] Dr. Nazia Faria Erythrocyte distribution width (RBC) [Ratio] 12.7 % Normal 11.0-15.0 [facility] Comment on above: Performed By: #### C BC #### [facility] [address] [place] [address] Dr. Nazia Faria Hematocrit (Bld) [Volume fraction] 42.8 % Normal 42.0-54.0 [facility] Comment on above: Performed By: #### C BC #### [facility] [address] [place] [address] Dr. Nazia Faria Hemoglobin (Bld) [Mass/Vol] 14.8 g/dL Normal 14.0-18.0 [facility] Comment on above: Performed By: #### C BC #### [facility] [address] [place] [address] Dr. Nazia Faria IG # 0.02 10e3/ul Normal 0.00-0.03 [facility] Comment on above: Performed By: #### C BC #### [facility] [address] [place] [address] Dr. Nazia Faria IG % 0.3 % Normal 0.0-0.5 [facility] Comment on above: Performed By: #### C BC #### [facility] [address] [place] [address] Dr. Nazia Faria LYMPH # 2.0 103/ul Normal 1.2-3.8 [facility] Comment on above: Performed By: #### C BC #### [facility] [address] [place] [address] Dr. Nazia Faria Lymphocytes/100 WBC (Bld) 25.7 % Normal 20.5-60.0 [facility] Comment on above: Performed By: #### C BC #### [facility] [address] [place] [address] Dr. Nazia Faria MANUAL DIFF REQ NO Normal [facility] Comment on above: Performed By: #### C BC #### [facility] [address] [place] [address] Dr. Nazia Faria MCH (RBC) [Entitic mass] 31.0 pg Normal 25.9-34.0 [facility] Comment on above: Performed By: #### C BC #### [facility] [address] [place] [address] Dr. Nazia Faria MCHC (RBC) [Mass/Vol] 34.6 g/dL Normal 29.9-35.2 [facility] Comment on above: Performed By: #### C BC #### [facility] [address] [place] [address] Dr. Nazia Faria MCV (RBC) [Entitic vol] 89.5 fL Normal 80.0-94.0 [facility] Comment on above: Performed By: #### C BC #### [facility] [address] [place] [address] Dr. Nazia Faria MONO # 0.5 103/ul Normal 0.3-0.8 [facility] Comment on above: Performed By: #### C BC #### [facility] [address] [place] [address] Dr. Nazia Faria Monocytes/100 WBC (Bld) 6.0 % Normal 1.7-12.0 [facility] Comment on above: Performed By: #### C BC #### [facility] [address] [place] [address] Dr. Nazia Faria NEUT # 5.0 103/ul Normal 1.4-6.5 [facility] Comment on above: Performed By: #### C BC #### [facility] [address] [place] [address] Dr. Nazia Faria Neutrophils/100 WBC (Bld) 64.2 % Normal 43.0-75.0 [facility] Comment on above: Performed By: #### C BC #### [facility] [address] [address] [address] Nazia Faria Platelet mean volume (Bld) [Entitic vol] 9.6 fL Normal 9.5-13.5 [facility] Comment on above: Performed By: #### C BC #### [facility] [address] [address] [address] Nazia Faria PLT 277 103/ul Normal 150-450 [facility] Comment on above: Performed By: #### C BC #### [facility] [address] [address] [address] Nazia Faria RBC 4.78 106/ul Normal 4.70-6.10 [facility] Comment on above: Performed By: #### C BC #### [facility] [address] [place] [address] Dr. Nazia Faria WBC 7.8 103/ul Normal 4.0-11.0 [facility] Comment on above: Performed By: #### C BC #### [facility] [address] [place] [address] ABD/PELV W CONon [...] KANU CARNEY Date: 2021-09-16 20:03 Normal [facility] PROF CHEM 8 (BAS METB)on Anion gap [Moles/Vol] 14.0 mmol/L Normal [facility] Comment on above: Performed By: #### B MP #### [facility] [address] [address] [address] Nazia Faria Calcium [Mass/Vol] 8.3 mg/dL Critically low 8.4-10.[address] [facility] Comment on above: Performed By: #### B MP #### [facility] [address] [address] [address] Nazia Faria Chloride [Moles/Vol] 104 mmol/L Normal 98-107 [facility] Comment on above: Performed By: #### B MP #### [facility] [address] [address] [address] Nazia Faria CO2 [Moles/Vol] 23.7 mmol/L Normal 22.0-30.0 [facility] Comment on above: Performed By: #### B MP #### [facility] [address] [address] [address] Nazia Faria Creatinine [Mass/Vol] 0.86 mg/dL Normal 0.66-1.25 [facility] Comment on above: Performed By: #### B MP #### [facility] [address] [address] [address] Nazia Faria EGFR-AF BAHRAINI >60 Normal >=60 [facility] Comment on above: Performed By: #### B MP #### [facility] [address] [address] [address] Nazia Faria EGFR-NON AF BAHRAINI >60 Normal >=60 [facility] Comment on above: Performed By: #### B MP #### [facility] [address] [address] [address] Nazia Faria Glucose [Mass/Vol] 77 mg/dL Normal 74-106 [facility] Comment on above: Performed By: #### B MP #### [facility] [address] [address] [address] Nazia Faria Potassium [Moles/Vol] 3.7 mmol/L Normal 3.4-5.0 [facility] Comment on above: Performed By: #### B MP #### [facility] [address] [address] [address] Nazia Faria Sodium [Moles/Vol] 138 mmol/L Normal 137-145 [facility] Comment on above: Performed By: #### B MP #### [facility] [address] [address] [address] Nazia Faria Urea nitrogen [Mass/Vol] 9.0 mg/dL Normal 9.0-20.0 [facility] Comment on above: Performed By: #### B MP #### [facility] [address] [address] [address] Nazia Faria Urea nitrogen/Creatinine [Mass ratio] 10.5 mg/mg Normal [facility] Comment on above: Performed By: #### B MP #### [facility] [address] [address] [address] Nazia Faria CARDIAC VIVIANA ADMITon 021 CK [Catalytic activity/Vol] 68 U/L Normal 55-170 [facility] Comment on above: Performed By: #### C BC #### [facility] [address] [address] [address] Nazia Faria CK.MB [Mass/Vol] 0.95 ng/mL Normal <=2.37 [facility] Comment on above: Performed By: #### C BC #### [facility] [address] [place] [address] Dr. Nazia Faria HSTROP 4.9 pg/mL Normal 4.0-42.2 [facility] Comment on above: Result Comment: CUT- OFF POINTS HAVE BEEN ESTABLISHED BASED ON THE FOURTH UNIVERSAL DEFINITIONS OF MYOCARDIAL INFARCTION. THE UPPER REFERENCE LIMIT (URL) OF TROPONIN, DEFINED THE 99TH PERCENTILE OF cTnI DISTRIBUTION IN A REFERENCE POPULATION, HAS BEEN CONFIRMED THE DECISION THRESHOLD FOR TX DIAGNOSIS. Performed By: #### C BC #### [facility] [address] [place] [address] Dr. Nazia Faria ROLY 25.0 ng/mL Normal <=121.0 [facility] Comment on above: Performed By: #### C BC #### [facility] [address] [place] [address] Dr. Nazia Faria CBC AUTO DIFFon 08-27-2021 BASO # 0.1 103/ul Normal 0.0-0.1 [facility] Comment on above: Performed By: #### C BC #### [facility] [address] [place] [address] Dr. Nazia Faria Basophils/100 WBC (Bld) 0.6 % Normal 0.2-2.0 [facility] Comment on above: Performed By: #### C BC #### [facility] [address] [place] [address] Dr. Nazia Faria EO # 0.3 103/ul Normal 0.0-0.7 [facility] Comment on above: Performed By: #### C BC #### [facility] [address] [place] [address] Dr. Nazia Faria Eosinophils/100 WBC (Bld) 2.9 % Normal 0.9-7.0 [facility] Comment on above: Performed By: #### C BC #### [facility] [address] [place] [address] Dr. Nazia Faria Erythrocyte distribution width (RBC) [Ratio] 12.8 % Normal 11.0-15.0 [facility] Comment on above: Performed By: #### C BC #### [facility] [address] [place] [address] Dr. Nazia Faria Hematocrit (Bld) [Volume fraction] 43.5 % Normal 42.0-54.0 [facility] Comment on above: Performed By: #### C BC #### [facility] [address] [place] [address] Dr. Nazia Faria Hemoglobin (Bld) [Mass/Vol] 15.2 g/dL Normal 14.0-18.0 [facility] Comment on above: Performed By: #### C BC #### [facility] [address] [place] [address] Dr. Nazia Faria IG # 0.02 10e3/ul Normal 0.00-0.03 [facility] Comment on above: Performed By: #### C BC #### [facility] [address] [place] [address] Dr. Nazia Faria IG % 0.2 % Normal 0.0-0.5 [facility] Comment on above: Performed By: #### C BC #### [facility] [address] [place] [address] Dr. Nazia Faria LYMPH # 1.6 103/ul Normal 1.2-3.8 [facility] Comment on above: Performed By: #### C BC #### [facility] [address] [place] [address] Dr. Nazia Faria Lymphocytes/100 WBC (Bld) 15.5 % Critically low 20.5-60.0 [facility] Comment on above: Performed By: #### C BC #### [facility] [address] [place] [address] Dr. Nazia Faria MANUAL DIFF REQ NO Normal [facility] Comment on above: Performed By: #### C BC #### [facility] [address] [place] [address] Dr. Nazia Faria MCH (RBC) [Entitic mass] 31.1 pg Normal 25.9-34.0 [facility] Comment on above: Performed By: #### C BC #### [facility] [address] [place] [address] Dr. Nazia Faria MCHC (RBC) [Mass/Vol] 34.9 g/dL Normal 29.9-35.2 [facility] Comment on above: Performed By: #### C BC #### [facility] [address] [address] [address] Nazia Faria MCV (RBC) [Entitic vol] 89.0 fL Normal 80.0-94.0 [facility] Comment on above: Performed By: #### C BC #### [facility] [address] [place] [address] Dr. Nazia Faria MONO # 0.6 103/ul Normal 0.3-0.8 [facility] Comment on above: Performed By: #### C BC #### [facility] [address] [place] [address] Dr. Nazia Faria Monocytes/100 WBC (Bld) 6.2 % Normal 1.7-12.0 [facility] Comment on above: Performed By: #### C BC #### [facility] [address] [place] [address] Dr. Nazia Faria NEUT # 7.6 103/ul Critically high 1.4-6.5 [facility] Comment on above: Performed By: #### C BC #### [facility] [address] [place] [address] Dr. Nazia Faria Neutrophils/100 WBC (Bld) 74.6 % Normal 43.0-75.0 [facility] Comment on above: Performed By: #### C BC #### [facility] [address] [place] [address] Dr. Nazia Faria Platelet mean volume (Bld) [Entitic vol] 10.0 fL Normal 9.5-13.5 [facility] Comment on above: Performed By: #### C BC #### [facility] [address] [place] [address] Dr. Nazia Faria PLT 280 103/ul Normal 150-450 [facility] Comment on above: Performed By: #### C BC #### [facility] [address] [place] [address] Dr. Nazia Faria RBC 4.89 106/ul Normal 4.70-6.10 [facility] Comment on above: Performed By: #### C BC #### [facility] [address] [place], [place] [address] Dr. Nazia Faria WBC 10.2 103/ul Normal 4.0-11.0 [facility] Comment on above: Performed By: #### C BC #### [facility] [address] [place], [place] [address] ABD/PELV W CONon [...] KELLY HERNANDEZ Date: 2021-08-27 18:23 Normal [facility] LIPASEon 08-27-2021 Lipase [Catalytic activity/Vol] 112.0 U/L Normal 23.0-300.0 [facility] Comment on above: Performed By: #### C BC #### [facility] [address] [place] [address] Dr. Nazia Faria PH VENOUS BLOODon 08-27-2021 PCO2 VENOUS 35.6 mmHg Critically low 40.0-52.0 [facility] Comment on above: Performed By: #### P HVEN #### [facility] [address] [place] [address] Dr. Nazia Faria pH VENOUS 7.43 Normal 7.33-7.43 [facility] Comment on above: Performed By: #### P HVEN #### [facility] [address] [place] [address] Dr. Nazia Faria PROF 14(COMP METB)on 021 Albumin [Mass/Vol] 3.3 g/dL Critically low 3.5-5.[address] [facility] Comment on above: Performed By: #### C BC #### [facility] [address] [place] [address] Dr. Nazia Faria Albumin/Globulin [Mass ratio] 0.8 {ratio} Normal [facility] Comment on above: Performed By: #### C BC #### [facility] [address] [place] [address] Dr. Nazia Faria ALP [Catalytic activity/Vol] 95 U/L Normal 38-126 [facility] Comment on above: Performed By: #### C BC #### [facility] [address] [place] [address] Dr. Nazia Faria ALT [Catalytic activity/Vol] 14 U/L Critically low 21-72 [facility] Comment on above: Performed By: #### C BC #### [facility] [address] [address] [address] Nazia Faria Anion gap [Moles/Vol] 13.4 mmol/L Normal [facility] Comment on above: Performed By: #### C BC #### [facility] [address] [address] [address] Nazia Faria AST [Catalytic activity/Vol] 16 U/L Critically low 17-59 [facility] Comment on above: Performed By: #### C BC #### [facility] [address] [address] [address] Nazia Faria Bilirubin [Mass/Vol] 0.6 mg/dL Normal 0.2-1.3 [facility] Comment on above: Performed By: #### C BC #### [facility] [address] [place] [address] Dr. Nazia Faria Calcium [Mass/Vol] 8.8 mg/dL Normal 8.4-10.2 [facility] Comment on above: Performed By: #### C BC #### [facility] [address] [place] [address] Dr. Nazia Faria Chloride [Moles/Vol] 106 mmol/L Normal 98-107 [facility] Comment on above: Performed By: #### C BC #### [facility] [address] [address] [address] Nazia Faria CO2 [Moles/Vol] 23.4 mmol/L Normal 22.0-30.0 [facility] Comment on above: Performed By: #### C BC #### [facility] [address] [address] [address] Nazia Faria Creatinine [Mass/Vol] 0.78 mg/dL Normal 0.66-1.25 [facility] Comment on above: Performed By: #### C BC #### [facility] [address] [address] [address] Nazia Faria EGFR-AF BAHRAINI >60 Normal >=60 [facility] Comment on above: Performed By: #### C BC #### [facility] [address] [place] [address] Dr. Nazia Faria EGFR-NON AF BAHRAINI >60 Normal >=60 [facility] Comment on above: Performed By: #### C BC #### [facility] [address] [address] [address] Nazia Faria Globulin (S) [Mass/Vol] 4.0 g/dL Normal [facility] Comment on above: Performed By: #### C BC #### [facility] [address] [address] [address] Nazia Faria Glucose [Mass/Vol] 106 mg/dL Normal 74-106 [facility] Comment on above: Performed By: #### C BC #### [facility] [address] [address] [address] Nazia Faria Potassium [Moles/Vol] 3.8 mmol/L Normal 3.4-5.0 [facility] Comment on above: Performed By: #### C BC #### [facility] [address] [place] [address] Dr. Nazia Faria Protein [Mass/Vol] 7.3 g/dL Normal 6.1-8.2 [facility] Comment on above: Performed By: #### C BC #### [facility] [address] [place] [address] Dr. Nazia Faria Sodium [Moles/Vol] 139 mmol/L Normal 137-145 [facility] Comment on above: Performed By: #### C BC #### [facility] [address] [address] [address] Nazia Faria Urea nitrogen [Mass/Vol] 5.0 mg/dL Critically low 9.0-20.0 [facility] Comment on above: Performed By: #### C BC #### [facility] [address] [address] [address] Nazia Faria Urea nitrogen/Creatinine [Mass ratio] 6.4 mg/mg Normal [facility] Comment on above: Performed By: #### C BC #### [facility] [address] [place] [address] Dr. Nazia Faria Vital Signs Date Time Vital Sign Value Performing Clinician Faci lity 08-05-2024 09:55-0400 Body mass index (BMI) [Ratio] 20.98 kg/m2 Esther Workman TOOL GRINDER OPERATOR SURFACE Work Phone: [facility] 08-05-2024 09:55-0400 Body temperature 97.11 [degF] Esther Workman TOOL GRINDER OPERATOR SURFACE Work Phone: [facility] 08-05-2024 09:55-0400 Body weight 62.6 kg Esther Workman TOOL GRINDER OPERATOR SURFACE Work Phone: [facility] 08-05-2024 09:55-0400 Diastolic blood pressure 98 mm[Hg] Esther Workman TOOL GRINDER OPERATOR SURFACE Work Phone: [facility] 08-05-2024 09:55-0400 Heart rate 85 /min Esther Workman TOOL GRINDER OPERATOR SURFACE Work Phone: [facility] 08-05-2024 09:55-0400 SaO2% (BldA) [Mass fraction] 97 % Esther Workman TOOL GRINDER OPERATOR SURFACE Work Phone: [facility] 08-05-2024 09:55-0400 Systolic blood pressure 168 mm[Hg] Esther Workman TOOL GRINDER OPERATOR SURFACE Work Phone: [facility] 06-25-2024 09:10-0400 Body height 170.2 cm Mickie Graham MD Work Phone: [facility] 06-25-2024 09:10-0400 Body mass index (BMI) [Ratio] 20.99 kg/m2 Mickie Graham MD Work Phone: [facility] 06-25-2024 09:10-0400 Body weight 60.78 kg Mickie Graham MD Work Phone: [facility] 06-25-2024 09:10-0400 Diastolic blood pressure 96 mm[Hg] Mickie Graham MD Work Phone: [facility] 06-25-2024 09:10-0400 Heart rate 77 /min Mickie Graham MD Work Phone: [facility] 06-25-2024 09:10-0400 Respiratory rate 20 /min Mickie Graham MD Work Phone: [facility] 06-25-2024 09:10-0400 SaO2% (BldA) [Mass fraction] 99 % Mickie Graham MD Work Phone: [facility] 06-25-2024 09:10-0400 Systolic blood pressure 163 mm[Hg] Mickie Graham MD Work Phone: [facility] 06-22-2024 10:53-0400 Body height 171.5 cm [facility] 06-22-2024 10:53-0400 Body mass index (BMI) [Ratio] 21.6 kg/m2 [facility] 06-22-2024 10:53-0400 Body weight 63.5 kg [facility] 06-22-2024 10:53-0400 Respiratory rate 16 /min [facility] 06-13-2024 10:09-0400 Body temperature 97.3 [degF] Dexter Elliott MD Work Phone: [facility] 06-13-2024 10:09-0400 Diastolic blood pressure 93 mm[Hg] Dexter Elliott MD Work Phone: [facility] 06-13-2024 10:09-0400 Heart rate 94 /min Dexter Elliott MD Work Phone: [facility] 06-13-2024 10:09-0400 SaO2% (BldA) [Mass fraction] 98 % Dexter Elliott MD Work Phone: [facility] 06-13-2024 10:09-0400 Systolic blood pressure 152 mm[Hg] Dexter Elliott MD Work Phone: [facility] 02-09-2023 13:49-0400 Body height 172.7 cm [facility] Work Phone: [facility] 04-13-2023 13:49-0400 Body temperature 97 [degF] Pacc 4 Work Phone: [facility] 02-09-2023 13:49-0400 Body weight 61.24 kg Pacc 4 Work Phone: [facility] 02-09-2023 13:49-0400 Diastolic blood pressure 67 mm[Hg] Pacc 4 Work Phone: [facility] 02-09-2023 13:49-0400 Heart rate 78 /min Pacc 4 Work Phone: [facility] 02-09-2023 13:49-0400 Respiratory rate 16 /min Pacc 4 Work Phone: [facility] 02-09-2023 13:49-0400 SaO2% (BldA) [Mass fraction] 99 % Pacc 4 Work Phone: [facility] 02-09-2023 13:49-0400 Systolic blood pressure 130 mm[Hg] Pacc 4 Work Phone: [facility] 01-17-2023 10:22-0400 Body height 172.7 cm Ana Enriquez MD Work Phone: [facility] 01-17-2023 10:22-0400 Body temperature 97.3 [degF] Ana Enriquez MD Work Phone: [facility] 01-17-2023 10:22-0400 Body weight 58.97 kg Ana Enriquez MD Work Phone: [facility] 01-17-2023 10:22-0400 Diastolic blood pressure 55 mm[Hg] Ana Enriquez MD Work Phone: [facility] 01-17-2023 10:22-0400 Heart rate 55 /min Ana Enriquez MD Work Phone: [facility] 01-17-2023 10:22-0400 SaO2% (BldA) [Mass fraction] 95 % Ana Enriquez MD Work Phone: [facility] 01-17-2023 10:22-0400 Systolic blood pressure 98 mm[Hg] Ana Enriquez MD Work Phone: [facility] 12-06-2022 10:35-0500 Body height 172.7 cm Kaylin Valentin APRN.HOSIERY MENDER Work Phone: [facility] 12-06-2022 10:35-0500 Body temperature 97.59 [degF] Kaylin Valentin APRN.HOSIERY MENDER Work Phone: [facility] 12-06-2022 10:35-0500 Body weight 58.97 kg Kaylin Valentin APRN.HOSIERY MENDER Work Phone: [facility] 12-06-2022 10:35-0500 Diastolic blood pressure 62 mm[Hg] Kaylin Valentin APRN.HOSIERY MENDER Work Phone: [facility] 12-06-2022 10:35-0500 Heart rate 73 /min Kaylin Valentin APRN.HOSIERY MENDER Work Phone: [facility] 12-06-2022 10:35-0500 Respiratory rate 20 /min Kaylin Valentin APRN.HOSIERY MENDER Work Phone: [facility] 12-06-2022 10:35-0500 SaO2% (BldA) [Mass fraction] 96 % Kaylin Valentin APRN.HOSIERY MENDER Work Phone: [facility] 12-06-2022 10:35-0500 Systolic blood pressure 117 mm[Hg] Kaylin Valentin APRN.HOSIERY MENDER Work Phone: [facility] 10-28-2022 11:35-0500 Body height 172.7 cm Pacc 2 Work Phone: [facility] 10-28-2022 11:35-0500 Body temperature 97.2 [degF] Pacc 2 Work Phone: [facility] 10-28-2022 11:35-0500 Body weight 60.33 kg Pacc 2 Work Phone: [facility] 10-28-2022 11:35-0500 Diastolic blood pressure 67 mm[Hg] Pacc 2 Work Phone: [facility] 10-28-2022 11:35-0500 Heart rate 66 /min Pacc 2 Work Phone: [facility] 10-28-2022 11:35-0500 Respiratory rate 14 /min Pacc 2 Work Phone: [facility] 10-28-2022 11:35-0500 SaO2% (BldA) [Mass fraction] 100 % Pacc 2 Work Phone: [facility] 10-28-2022 11:35-0500 Systolic blood pressure 125 mm[Hg] Pacc 2 Work Phone: [facility] 10-13-2022 15:40-0500 Diastolic blood pressure 71 mm[Hg] Ana Enriquez MD Work Phone: [facility] 10-13-2022 15:40-0500 Heart rate 57 /min Ana Enriquez MD Work Phone: [facility] 10-13-2022 15:40-0500 Respiratory rate 18 /min Ana Enriquez MD Work Phone: [facility] 10-13-2022 15:40-0500 SaO2% (BldA) [Mass fraction] 100 % Ana Enriquez MD Work Phone: [facility] 10-13-2022 15:40-0500 Systolic blood pressure 105 mm[Hg] Ana Enriquez MD Work Phone: [facility] 10-13-2022 15:10-0500 Body temperature 97.11 [degF] Ana Enriquez MD Work Phone: [facility] 10-04-2022 16:30-0500 Body height 172.7 cm Ana Enriquez MD Work Phone: [facility] 10-04-2022 16:30-0500 Body weight 60.33 kg Ana Enriquez MD Work Phone: [facility] 10-04-2022 16:30-0500 Diastolic blood pressure 66 mm[Hg] Ana Enriquez MD Work Phone: [facility] 10-04-2022 16:30-0500 Heart rate 64 /min Ana Enriquez MD Work Phone: [facility] 10-04-2022 16:30-0500 Systolic blood pressure 119 mm[Hg] Ana Enriquez MD Work Phone: [facility] 08-26-2022 10:40-0400 Body height 172.4 cm Temi James PA-C Work Phone: [facility] 08-26-2022 10:40-0400 Body temperature 97.2 [degF] Temi James PA-C Work Phone: [facility] 08-26-2022 10:40-0400 Body weight 60.42 kg Temi James PA-C Work Phone: [facility] 08-26-2022 10:40-0400 Diastolic blood pressure 74 mm[Hg] Temi James PA-C Work Phone: [facility] 08-26-2022 10:40-0400 Heart rate 73 /min Temi James PA-C Work Phone: [facility] 08-26-2022 10:40-0400 Respiratory rate 16 /min Temi James PA-C Work Phone: [facility] 08-26-2022 10:40-0400 SaO2% (BldA) [Mass fraction] 98 % Temi James PA-C Work Phone: [facility] 08-26-2022 10:40-0400 Systolic blood pressure 102 mm[Hg] Temi James PA-C Work Phone: [facility] 08-05-2022 10:03-0400 Body height 172.4 cm Chair [place] Work Phone: [facility] [facility] 08-[facility]-2022 10:03-0400 Body weight 60.8 kg Chair [place] Work Phone: [facility] 08-05-2022 09:45-0400 Body height 172.4 cm Oscar Gonzalez MD Work Phone: [facility] 08-05-2022 09:45-0400 Body temperature 97.11 [degF] Oscar Gonzalez MD Work Phone: [facility] 08-05-2022 09:45-0400 Body weight 60.8 kg Oscar Gonzalez MD Work Phone: [facility] 08-05-2022 09:45-0400 Diastolic blood pressure 76 mm[Hg] Oscar Gonzalez MD Work Phone: [facility] 08-05-2022 09:45-0400 Heart rate 69 /min Oscar Gonzalez MD Work Phone: [facility] 08-05-2022 09:45-0400 Respiratory rate 16 /min Oscar Gonzalez MD Work Phone: [facility] 08-05-2022 09:45-0400 SaO2% (BldA) [Mass fraction] 100 % Oscar Gonzalez MD Work Phone: [facility] 08-05-2022 09:45-0400 Systolic blood pressure 115 mm[Hg] Oscar Gonzalez MD Work Phone: [facility] 08-05-2022 09:06-0400 Body temperature 97.11 [degF] Tylor Davalos MD Work Phone: [facility] 08-05-2022 09:06-0400 Body weight 60.78 kg Tylor Davalos MD Work Phone: [facility] 08-05-2022 09:06-0400 Diastolic blood pressure 76 mm[Hg] Tlyor Davalos MD Work Phone: [facility] 08-05-2022 09:06-0400 Heart rate 69 /min Tylor Davalos MD Work Phone: [facility] 08-05-2022 09:06-0400 Respiratory rate 16 /min Tylor Davalos MD Work Phone: [facility] 08-05-2022 09:06-0400 SaO2% (BldA) [Mass fraction] 100 % Tylor Davalos MD Work Phone: [facility] 08-05-2022 09:06-0400 Systolic blood pressure 115 mm[Hg] Tylor Davalos MD Work Phone: [facility] 07-15-2022 09:27-0400 Body height 172.4 cm Temi James PA-C Work Phone: [facility] 07-15-2022 09:27-0400 Body temperature 97.9 [degF] Temi James PA-C Work Phone: [facility] 07-15-2022 09:27-0400 Body weight 61.42 kg Temi James PA-C Work Phone: [facility] 07-15-2022 09:27-0400 Diastolic blood pressure 71 mm[Hg] Temi James PA-C Work Phone: [facility] 07-15-2022 09:27-0400 Heart rate 72 /min Temi James PA-C Work Phone: [facility] 07-15-2022 09:27-0400 Respiratory rate 16 /min Temi James PA-C Work Phone: [facility] 07-15-2022 09:27-0400 SaO2% (BldA) [Mass fraction] 100 % Temi James PA-C Work Phone: [facility] 07-15-2022 09:27-0400 Systolic blood pressure 121 mm[Hg] Temi James PA-C Work Phone: [facility] 06-24-2022 14:38-0400 Diastolic blood pressure 75 mm[Hg] Chair [place] Work Phone: [facility] 06-24-2022 14:38-0400 Heart rate 69 /min Chair [place] Work Phone: [facility] 06-24-2022 14:38-0400 Respiratory rate 16 /min Chair [place] Work Phone: [facility] 06-24-2022 14:38-0400 SaO2% (BldA) [Mass fraction] 98 % Chair [place] Work Phone: [facility] 06-24-2022 14:38-0400 Systolic blood pressure 123 mm[Hg] Chair [place] Work Phone: [facility] 06-24-2022 09:39-0400 Body height 172.4 cm Oscar Gonzalez MD Work Phone: [facility] 06-24-2022 09:39-0400 Body temperature 97 [degF] Oscar Gonzalez MD Work Phone: [facility] 06-24-2022 09:39-0400 Body weight 61.33 kg Oscar Gonzalez MD Work Phone: [facility] 06-24-2022 09:39-0400 Diastolic blood pressure 72 mm[Hg] Oscar Gonzalez MD Work Phone: [facility] 06-24-2022 09:39-0400 Heart rate 61 /min Oscar Gonzalez MD Work Phone: [facility] 06-24-2022 09:39-0400 Respiratory rate 16 /min Oscar Gonzalez MD Work Phone: [facility] 06-24-2022 09:39-0400 SaO2% (BldA) [Mass fraction] 99 % Oscar Gonzalez MD Work Phone: [facility] 06-24-2022 09:39-0400 Systolic blood pressure 134 mm[Hg] Oscar Gonzalez MD Work Phone: [facility] 05-24-2022 15:13-0400 Body height 172.7 cm Oscar Gonazlez MD Work Phone: [facility] 05-24-2022 15:13-0400 Body temperature 98.01 [degF] Oscar Gonzalez MD Work Phone: [facility] 05-24-2022 15:13-0400 Body weight 64.32 kg Oscar Gonzalez MD Work Phone: [facility] 05-24-2022 15:13-0400 Diastolic blood pressure 71 mm[Hg] Oscar Gonzalez MD Work Phone: [facility] 05-24-2022 15:13-0400 Heart rate 57 /min Oscar Gonzalez MD Work Phone: [facility] 05-24-2022 15:13-0400 Respiratory rate 16 /min Oscar Gonzalez MD Work Phone: [facility] 05-24-2022 15:13-0400 SaO2% (BldA) [Mass fraction] 99 % Oscar Gonzalez MD Work Phone: [facility] 05-24-2022 15:13-0400 Systolic blood pressure 101 mm[Hg] Oscar Gonzalez MD Work Phone: [facility] 05-24-2022 11:37-0400 Body temperature 98.29 [degF] Ana Enriquez MD Work Phone: [facility] 05-24-2022 11:37-0400 Diastolic blood pressure 80 mm[Hg] Ana Enriquez MD Work Phone: [facility] 05-24-2022 11:37-0400 Heart rate 71 /min Ana Enriquez MD Work Phone: [facility] 05-24-2022 11:37-0400 Respiratory rate 16 /min Ana Enriquez MD Work Phone: [facility] 05-24-2022 11:37-0400 SaO2% (BldA) [Mass fraction] 98 % Ana Enriquez MD Work Phone: [facility] 05-24-2022 11:37-0400 Systolic blood pressure 108 mm[Hg] Ana Enriquez MD Work Phone: [facility] 04-12-2022 13:28-0400 Body height 172.7 cm Oscar Gonzalez MD Work Phone: [facility] 04-12-2022 13:28-0400 Body temperature 97.2 [degF] Oscar Gonzalez MD Work Phone: [facility] 04-12-2022 13:28-0400 Body weight 62.41 kg Oscar Gonzalez MD Work Phone: [facility] 04-12-2022 13:28-0400 Diastolic blood pressure 70 mm[Hg] Oscar Gonzalez MD Work Phone: [facility] 04-12-2022 13:28-0400 Heart rate 69 /min Oscar Gonzalez MD Work Phone: [facility] 04-12-2022 13:28-0400 Respiratory rate 16 /min Oscar Gonzalez MD Work Phone: [facility] 04-12-2022 13:28-0400 SaO2% (BldA) [Mass fraction] 97 % Oscar Gonzalez MD Work Phone: [facility] 04-12-2022 13:28-0400 Systolic blood pressure 131 mm[Hg] Oscar Gonzalez MD Work Phone: [facility] 04-06-2022 11:36-0400 Body temperature 97.39 [degF] Tylor Davalos MD Work Phone: [facility] 04-06-2022 11:36-0400 Body weight 62.14 kg Tylor Davalos MD Work Phone: [facility] 04-06-2022 11:36-0400 Diastolic blood pressure 73 mm[Hg] Tylor Davalos MD Work Phone: [facility] 04-06-2022 11:36-0400 Heart rate 76 /min Tylor Davalos MD Work Phone: [facility] 04-06-2022 11:36-0400 Respiratory rate 18 /min Tylor Davalos MD Work Phone: [facility] 04-06-2022 11:36-0400 SaO2% (BldA) [Mass fraction] 99 % Tylor Davalos MD Work Phone: [facility] 04-06-2022 11:36-0400 Systolic blood pressure 131 mm[Hg] Tylor Davalos MD Work Phone: [facility] 04-01-2022 11:02-0400 Body height 172.7 cm Temi James PA-C Work Phone: [facility] 04-01-2022 11:02-0400 Body temperature 97.11 [degF] Temi James PA-C Work Phone: [facility] 04-01-2022 11:02-0400 Body weight 62.14 kg Temi James PA-C Work Phone: [facility] 04-01-2022 11:02-0400 Diastolic blood pressure 77 mm[Hg] Temi James PA-C Work Phone: [facility] 04-01-2022 11:02-0400 Heart rate 70 /min Temi James PA-C Work Phone: [facility] 04-01-2022 11:02-0400 Respiratory rate 16 /min Temi James PA-C Work Phone: [facility] 04-01-2022 11:02-0400 SaO2% (BldA) [Mass fraction] 98 % Temi James PA-C Work Phone: [facility] 04-01-2022 11:02-0400 Systolic blood pressure 130 mm[Hg] Temi James PA-C Work Phone: [facility] 03-30-2022 11:24-0400 Body temperature 97.7 [degF] Tylor Davalos MD Work Phone: [facility] 03-30-2022 11:24-0400 Body weight 62.87 kg Tylor Davalos MD Work Phone: [facility] 03-30-2022 11:24-0400 Diastolic blood pressure 80 mm[Hg] Tylor Davalos MD Work Phone: [facility] 03-30-2022 11:24-0400 Heart rate 75 /min Tylor Davalos MD Work Phone: [facility] 03-30-2022 11:24-0400 Respiratory rate 16 /min Tylor Davalos MD Work Phone: [facility] 03-30-2022 11:24-0400 SaO2% (BldA) [Mass fraction] 99 % Tylor Davalos MD Work Phone: [facility] 03-30-2022 11:24-0400 Systolic blood pressure 123 mm[Hg] Tylor Davalos MD Work Phone: [facility] 03-23-2022 11:52-0400 Body temperature 97.11 [degF] Tylor Davalos MD Work Phone: [facility] 03-23-2022 11:52-0400 Body weight 62.14 kg Tylor Davalos MD Work Phone: [facility] 03-23-2022 11:52-0400 Diastolic blood pressure 82 mm[Hg] Tylor Davalos MD Work Phone: [facility] 03-23-2022 11:52-0400 Heart rate 80 /min Tylor Davalos MD Work Phone: [facility] 03-23-2022 11:52-0400 Respiratory rate 20 /min Tylor Davalos MD Work Phone: [facility] 03-23-2022 11:52-0400 SaO2% (BldA) [Mass fraction] 98 % Tylor Davalos MD Work Phone: [facility] 03-23-2022 11:52-0400 Systolic blood pressure 134 mm[Hg] Tylor Davalos MD Work Phone: [facility] 03-18-2022 15:04-0400 Body height 172.7 cm Bouchra Thompson ALTERATION WORKER.HOSIERY MENDER Work Phone: [facility] 03-18-2022 15:04-0400 Body temperature 98.71 [degF] Bouchra Thompson ALTERATION WORKER.HOSIERY MENDER Work Phone: [facility] 03-18-2022 15:04-0400 Body weight 61.24 kg Bouchra Thompson ALTERATION WORKER.HOSIERY MENDER Work Phone: [facility] 03-18-2022 15:04-0400 Diastolic blood pressure 78 mm[Hg] Bouchra Thompson ALTERATION WORKER.HOSIERY MENDER Work Phone: [facility] 03-18-2022 15:04-0400 Heart rate 78 /min Bouchra Thompson ALTERATION WORKER.HOSIERY MENDER Work Phone: [facility] 03-18-2022 15:04-0400 SaO2% (BldA) [Mass fraction] 98 % Bouchra Thompson ALTERATION WORKER.HOSIERY MENDER Work Phone: [facility] 03-18-2022 15:04-0400 Systolic blood pressure 123 mm[Hg] Bouchra Thompson ALTERATION WORKER.HOSIERY MENDER Work Phone: [facility] 03-18-2022 12:44-0400 Body height 172.7 cm Oscar Gonzalez MD Work Phone: [facility] 03-18-2022 12:44-0400 Body temperature 97.59 [degF] Oscar Gonzalez MD Work Phone: [facility] 03-18-2022 12:44-0400 Body weight 61.24 kg Oscar Gonzalez MD Work Phone: [facility] 03-18-2022 12:44-0400 Diastolic blood pressure 80 mm[Hg] Oscar Gonzalez MD Work Phone: [facility] 03-18-2022 12:44-0400 Heart rate 80 /min Oscar Gonzalez MD Work Phone: [facility] 03-18-2022 12:44-0400 Respiratory rate 16 /min Oscar Gonzalez MD Work Phone: [facility] 03-18-2022 12:44-0400 SaO2% (BldA) [Mass fraction] 99 % Oscar Gonzalez MD Work Phone: [facility] 03-18-2022 12:44-0400 Systolic blood pressure 147 mm[Hg] Oscar Gonzalez MD Work Phone: [facility] 03-16-2022 11:44-0400 Body temperature 97.59 [degF] Tylor Davalos MD Work Phone: [facility] 03-16-2022 11:44-0400 Body weight 59.88 kg Tylor Davalos MD Work Phone: [facility] 03-16-2022 11:44-0400 Diastolic blood pressure 84 mm[Hg] Tylor Davalos MD Work Phone: [facility] 03-16-2022 11:44-0400 Heart rate 85 /min Tylor Davalos MD Work Phone: [facility] 03-16-2022 11:44-0400 Respiratory rate 20 /min Tylor Davalos MD Work Phone: [facility] 03-16-2022 11:44-0400 SaO2% (BldA) [Mass fraction] 99 % Tylor Davalos MD Work Phone: [facility] 03-16-2022 11:44-0400 Systolic blood pressure 141 mm[Hg] Tylor Davalos MD Work Phone: [facility] 03-01-2022 12:48-0400 Body height 172.7 cm Oscar Gonzalez MD Work Phone: [facility] 03-01-2022 12:48-0400 Body temperature 97.5 [degF] Oscar Gonzalez MD Work Phone: [facility] 03-01-2022 12:48-0400 Body weight 61.51 kg Oscar Gonzalez MD Work Phone: [facility] 03-01-2022 12:48-0400 Diastolic blood pressure 92 mm[Hg] Oscar Gonzalez MD Work Phone: [facility] 03-01-2022 12:48-0400 Heart rate 78 /min Oscar Gonzalez MD Work Phone: [facility] 03-01-2022 12:48-0400 Respiratory rate 16 /min Oscar Gonzalez MD Work Phone: [facility] 03-01-2022 12:48-0400 SaO2% (BldA) [Mass fraction] 98 % Oscar Gonzalez MD Work Phone: [facility] 03-01-2022 12:48-0400 Systolic blood pressure 135 mm[Hg] Oscar Gonzalez MD Work Phone: [facility] 02-16-2022 08:16-0400 Body height 172.7 cm Pacc 1 Other Phone: [facility] 02-16-2022 08:16-0400 Body temperature 96.69 [degF] Pacc 1 Other Phone: [facility] 02-16-2022 08:16-0400 Body weight 58.51 kg Pacc 1 Other Phone: [facility] 02-16-2022 08:16-0400 Diastolic blood pressure 91 mm[Hg] Pacc 1 Other Phone: [facility] 02-16-2022 08:16-0400 Heart rate 80 /min Pacc 1 Other Phone: [facility] 02-16-2022 08:16-0400 Respiratory rate 18 /min Pacc 1 Other Phone: [facility] 02-16-2022 08:16-0400 SaO2% (BldA) [Mass fraction] 98 % Pac 1 Other Phone: [facility] 02-16-2022 08:16-0400 Systolic blood pressure 130 mm[Hg] Pac 1 Other Phone: [facility] 02-11-2022 13:12-0400 Body temperature 96.91 [degF] Tylor Davalos MD Work Phone: [facility] 02-11-2022 13:12-0400 Body weight 62.6 kg Tylor Davalos MD Work Phone: [facility] 02-11-2022 13:12-0400 Diastolic blood pressure 80 mm[Hg] Tylor Davalos MD Work Phone: [facility] 02-11-2022 13:12-0400 Heart rate 65 /min Tylor Davalos MD Work Phone: [facility] 02-11-2022 13:12-0400 Respiratory rate 16 /min Tylor Davalos MD Work Phone: [facility] 02-11-2022 13:12-0400 SaO2% (BldA) [Mass fraction] 100 % Tylor Davalos MD Work Phone: [facility] 02-11-2022 13:12-0400 Systolic blood pressure 130 mm[Hg] Tylor Davalos MD Work Phone: [facility] 02-04-2022 09:56-0400 Body height 171.5 cm Oscar Gonzalez MD Work Phone: [facility] 02-04-2022 09:56-0400 Body temperature 97 [degF] Oscar Gonzalez MD Work Phone: [facility] 02-04-2022 09:56-0400 Body weight 61.33 kg Oscar Gonzalez MD Work Phone: [facility] 02-04-2022 09:56-0400 Diastolic blood pressure 75 mm[Hg] Oscar Gonzalez MD Work Phone: [facility] 02-04-2022 09:56-0400 Heart rate 68 /min Oscar Gonzalez MD Work Phone: [facility] 02-04-2022 09:56-0400 Respiratory rate 16 /min Oscar Gonzalez MD Work Phone: [facility] 02-04-2022 09:56-0400 SaO2% (BldA) [Mass fraction] 99 % Oscar Gonzalez MD Work Phone: [facility] 02-04-2022 09:56-0400 Systolic blood pressure 123 mm[Hg] Oscar Gonzalez MD Work Phone: [facility] Encounters Encounter Date Encounter Type Care Provider Facility Start: 08-29-2024 End: 08-29-2024 ambulatory ESTHER WORKMAN Facility:[facility] Start: 08-29-2024 End: 08-29-2024 Patient encounter procedure KETTY RICE [facility] Start: 08-14-2024 End: 08-14-2024 Telephone encounter Dexter Elliott MD Work Phone: General Surgery Start: 08-07-2024 ambulatory ESTHER WORKMAN Fa cility:[facility] Start: 08-05-2024 End: 08-05-2024 Bamboo flowsheet Esther Workman TOOL GRINDER OPERATOR SURFACE Work Phone: [facility] Start: 08-05-2024 End: 08-05-2024 Bamboo flowsheet Esther Workman TOOL GRINDER OPERATOR SURFACE Work Phone: [facility] Start: 08-05-2024 End: 08-07-2024 Telephone encounter Mickie Graham MD Work Phone: Cardiology Comment on above: Patient Update Start: 08-05-2024 End: 08-05-2024 Office outpatient visit 15 minutes Esther Workman TOOL GRINDER OPERATOR SURFACE Work Phone: [facility] Comment on above: Attention deficit hy peractivity disorder (ADHD), predominantly hyperactive type (CMS/HCC) (Primary Dx); Long-term current use of high risk medication other than anticoagulant; Mixed incontinence urge and stress; Tobacco dependence due to cigarettes; Opioid abuse, uncomplicated (CMS/HCC) Start: 08-05-2024 End: 08-05-2024 ambulatory ESTHER WORKMAN Not Available Start: 07-10-2024 End: 07-10-2024 Telephone encounter Dexter Elliott MD Work Phone: General Surgery Start: 07-05-2024 End: 07-05-2024 Telephone encounter Paradise PIERCE Colorectal Surgery Comment on above: FMLA Paperwork Start: 07-04-2024 End: 07-04-2024 Telephone encounter Dexter Elliott MD Work Phone: General Surgery Start: 07-03-2024 End: 07-03-2024 ambulatory DEXTER ELLIOTT Facility:[facility] Start: 06-25-2024 End: 06-25-2024 ambulatory [facility] Facility:[facility] Start: 06-25-2024 Encounter for other preprocedural examination [facility] Start: 06-25-2024 Encounter for preprocedural cardiovascular examination [facility] Start: 06-25-2024 End: 06-25-2024 Office outpatient visit 15 minutes Mickie Graham MD Work Phone: Cardiology Comment on above: Abnormality of right ventricle of heart - Enlarged (Primary Dx); Nonrheumatic tricuspid valve regurgitation; Depressed left ventricular ejection fraction; Preoperative cardiovascular examination; History of endocarditis; Arrhythmogenic right ventricular dysplasia (HCC); Secondary pulmonary arterial hypertension (HCC); Elevated blood pressure reading; Pre-op examination Start: 06-25-2024 End: 06-25-2024 Patient encounter status Mickie Graham MD Work Phone: [facility] Start: 06-25-2024 End: 06-25-2024 Preprocedural examination done Mickie Graham MD Work Phone: [facility] Start: 06-22-2024 Encounter for other preprocedural examination DEXTER ELLIOTT [facility] Start: 06-22-2024 End: 06-22-2024 [facility] Comment on above: Pre-op examination ( Primary Dx); History of intravenous drug abuse; Attention deficit hyperactivity disorder (ADHD), predominantly hyperactive type; Rectal cancer (HCC); Acute deep vein thrombosis (DVT) of proximal vein of lower extremity, unspecified laterality (HCC); Hypothyroidism unspecified; Former smoker; History of endocarditis; Severe tricuspid regurgitation Start: 06-22-2024 End: 06-22-2024 Preprocedural examination done [facility] Work Phone: Start: 06-18-2024 End: 06-18-2024 Omar Workman NP Work Phone: [facility] Comment on above: Attention deficit hy peractivity disorder (ADHD), predominantly hyperactive type (CMS/HCC) Start: 06-13-2024 Admission to [facility] Carrillo Lin RN General Surgery Comment on above: Education Of Patient /family Start: 06-13-2024 End: 06-13-2024 ambulatory Carrillo Lin RN General Surgery Start: 06-13-2024 End: 06-13-2024 Patient encounter procedure Dexter Elliott MD Work Phone: General Surgery Comment on above: Reducible left ingui nal hernia (Primary Dx) Start: 05-13-2024 End: 05-13-2024 ambulatory [facility] Start: 05-01-2024 End: 05-01-2024 ambulatory [facility] Start: 03-28-2024 End: 03-28-2024 ambulatory SHAIKH KIA Not Available Start: 03-22-2024 End: 03-22-2024 ambulatory [facility] Start: 03-04-2024 End: 03-04-2024 ambulatory ABBY GARSIA Not Available Start: 01-22-2024 End: 01-22-2024 ambulatory SHAIKH KIA Not Available Start: 10-12-2023 End: 10-12-2023 ambulatory SHAIKH KIA Not Available Start: 06-02-2023 Telephone encounter Ana stover MD Work Phone: Colorectal Surgery Comment on above: Patient Question Start: 03-02-2023 Telephone encounter Tutu Solorio MD Work Phone: [facility] [place] Comment on above: Research Follow Up Start: 02-28-2023 Telephone encounter Aleksandra ALONZO Comment on above: Follow Up (All clear ) Research Follow Up Start: 02-24-2023 Telephone encounter Oscar chávez MD Work Phone: Hematology/Oncology Comment on above: Patient Question Start: 02-17-2023 Telephone encounter Ana stover MD Work Phone: General Surgery Comment on above: Patient Question Start: 02-16-2023 Refill Oscar Gonzalez MD Work Phone: Hematology/Oncology Comment on above: Refill Request Start: 02-16-2023 Telephone encounter Ana stover MD Work Phone: Colorectal Surgery Comment on above: FMLA Paperwork Start: 02-09-2023 End: 02-09-2023 Admission to establishment [place] [id number] Work Phone: [place] Start: 02-09-2023 End: 02-09-2023 Drug abuse prevention management [facility] Work Phone: Pre Anesthesia Comment on above: Preop examination (P rimary Dx); History of endocarditis; Severe tricuspid regurgitation; Former smoker; History of intravenous drug abuse (HCC); Hypothyroidism unspecified; Acute deep vein thrombosis (DVT) of proximal vein of lower extremity, unspecified laterality (HCC) Start: 02-09-2023 End: 02-09-2023 Preprocedural examination done [facility] Work Phone: Pre Anesthesia Start: 01-31-2023 ambulatory SHAIKH KIA Facility: [facility] Start: 01-31-2023 End: 01-31-2023 Subsequent hospital visit by physician Gi/Gu 1 [facility] Work Phone: Radiology Comment on above: Encounter for follow -up surveillance of rectal cancer [Z08, Z85.048] Start: 01-17-2023 End: 01-17-2023 Patient encounter procedure Ana Enriquez MD Work Phone: Colorectal Surgery Comment on above: Rectal cancer (HCC) (Primary Dx); Encounter for follow-up surveillance of rectal cancer; Acute post-operative pain; Attention to ileostomy (HCC) Start: 01-02-2023 Telephone encounter Ana stover MD Work Phone: Colorectal Surgery Comment on above: Patient Question Start: 12-21-2022 Telephone encounter Charity Pichardo RN Work Phone: Hematology/Oncology Comment on above: Care Coordination (I rritation around stoma) Start: 12-20-2022 Telephone encounter Ana stover MD Work Phone: Colorectal Surgery Comment on above: Post Op Start: 12-06-2022 End: 12-06-2022 Patient encounter procedure Kaylin Homero ROSAS Work Phone: Colorectal Surgery Comment on above: Acute post-operative pain (Primary Dx); High output ileostomy (HCC) Start: 12-05-2022 Telephone encounter Ana stover MD Work Phone: Colorectal Surgery Comment on above: Post Op Start: 12-02-2022 Telephone encounter Oscar chávez MD Work Phone: Hematology/Oncology Comment on above: Disability Jay[place] Start: 11-21-2022 Telephone encounter Charity Pichardo RN Work Phone: Hematology/Oncology Comment on above: Care Coordination (q uestion) Start: 11-17-2022 Telephone encounter Ana stover MD Work Phone: Colorectal Surgery Comment on above: Pai Gow Dealer - O ther (Tumor board) Start: 11-16-2022 Telephone encounter Ana stover MD Work Phone: Colorectal Surgery Comment on above: Patient Question Start: 10-28-2022 End: 10-28-2022 Admission to establishment [facility] [place] [facility] Work Phone: [facility] Start: 10-28-2022 End: 10-28-2022 [facility] Comment on above: Pre-op evaluation (P rimary Dx); History of intravenous drug abuse (HCC); Hypothyroidism unspecified; Smoker; Severe tricuspid regurgitation; History of endocarditis; Acute deep vein thrombosis (DVT) of proximal vein of lower extremity, unspecified laterality (HCC) Start: 10-28-2022 End: 10-28-2022 Preprocedural examination done [facility] 2 Work Phone: Pre Anesthesia Start: 10-17-2022 End: 10-17-2022 Subsequent hospital visit by physician Arrival Time Radiology Work Phone: Radiology [facility] Comment on above: Malignant neoplasm o f rectum (HCC) [C20] Start: 10-13-2022 ambulatory [facility] Facility: [facility] Start: 10-13-2022 End: 10-13-2022 Subsequent hospital visit by physician Ana Enriquez MD Work Phone: Procedures Comment on above: Follow-up examinatio n after colorectal surgery [Z09] Start: 10-11-2022 Telephone encounter Ana stover MD Work Phone: Colorectal Surgery Comment on above: Anesthesia Consult ( Patient not scheduled PACC) Start: 10-05-2022 Telephone encounter Ana stover MD Work Phone: Colorectal Surgery Comment on above: [employer]ai [employer]er - O ther Start: 10-04-2022 End: 10-04-2022 Orders Only Ana Enriquez MD Work Phone: Colorectal Surgery Comment on above: Rectal cancer (HCC) (Primary Dx) Encounter for follow -up surveillance of rectal cancer (Primary Dx); Malignant neoplasm of rectum (HCC) Start: 09-27-2022 Telephone encounter Charity Pichardo RN Work Phone: Hematology/Oncology Comment on above: Care Coordination (M RI results) Start: 09-26-2022 End: 09-26-2022 Subsequent hospital visit by physician [facility] Radiology Comment on above: Lung nodules [R91.8] Malignant neoplasm o f rectum (HCC) [C20] Start: 09-23-2022 Telephone encounter Sheron Rucker (Pas) rdo Radiology Comment on above: APPOINTMENT INSTRUCT IONS (MRI- 09/26/2022 @ 200PM/Appointment reminder call- spoke with Elsa- gave directions to the office- states patient has another appointment before ours and will be here after/) Start: 09-05-2022 Refill Oscar Gonzalez MD Work Phone: Hematology/Oncology Comment on above: Refill Request Start: 08-26-2022 End: 08-26-2022 ambulatory Temi Ramirez PA-C Work Phone: Hematology/Oncology Comment on above: Malignant neoplasm o f rectum (HCC) (Primary Dx); Lung nodules Rectal cancer (HCC) (Primary Dx); Malaise and fatigue Refill Request Start: 08-26-2022 Telephone encounter Tutu Solorio MD Work Phone: [employer] Comment on above: Research Follow Up Start: 08-26-2022 End: 08-26-2022 Patient encounter procedure Temi Ramirez PA-C Work Phone: [place] Start: 08-25-2022 Telephone encounter Tutu Solorio MD Work Phone: [employer] Comment on above: Research Follow Up Start: 08-08-2022 Telephone encounter Charity Pichardo RN Work Phone: Hematology/Oncology Comment on above: Care Coordination (C linical update) Start: 08-05-2022 Telephone encounter Oscar chávez MD Work Phone: Cancer [facility] Comment on above: Patient Question Start: 08-05-2022 End: 08-05-2022 ambulatory Oscar Gonzalez MD Work Phone: Hematology/Oncology Comment on above: Rectal cancer (HCC) (Primary Dx) Rectal cancer (HCC) (Primary Dx); Malaise and fatigue Start: 08-05-2022 End: 08-05-2022 Patient encounter procedure Oscar Gonzalez MD Work Phone: [facility] Comment on above: Rectal cancer (HCC) Start: 07-15-2022 End: 07-15-2022 Visit (SP) Office Temi Ramirez PA-C Work Phone: Hematology/Oncology Comment on above: Rectal cancer (HCC) (Primary Dx); Tobacco use disorder Refill Request Rectal cancer (HCC) (Primary Dx); Malaise and fatigue B-12 Injection Start: 06-27-2022 Telephone encounter Charity Pichardo RN Work Phone: Hematology/Oncology Comment on above: Care Coordination (M edication update/) Start: 06-24-2022 End: 06-24-2022 ambulatory Oscar Gonzalez MD Work Phone: Hematology/Oncology Comment on above: Rectal cancer (HCC) (Primary Dx) Start: 06-24-2022 End: 06-24-2022 Patient encounter procedure Oscar Gonzalez MD Work Phone: [facility] Start: 06-23-2022 Refill Oscar Gonzalez MD Work Phone: Hematology/Oncology Comment on above: Refill Request Start: 06-07-2022 Telephone encounter Charity Pichardo RN Work Phone: Hematology/Oncology Comment on above: Care Coordination (C 1D1 treatment follow up call/) Start: 06-03-2022 Refill Bouchra shin [facility] Work Phone: Hematology/Oncology Comment on above: Refill Request Start: 06-02-2022 Telephone encounter Bouchra Aranda [facility] Work Phone: Hematology/Oncology Comment on above: Medication Update (C APOX-capecitabine) Start: 06-02-2022 End: 06-02-2022 Nursing evaluation of patient and report Charity Pichardo RN Work Phone: Hematology/Oncology Comment on above: Rectosigmoid cancer (HCC) (Primary Dx) Start: 05-30-2022 Telephone encounter Tutu Solorio MD Work Phone: [employer] Comment on above: Research Follow Up Start: 05-25-2022 Telephone encounter Tutu Solorio MD Work Phone: [employer] Comment on above: Research Follow Up Start: 05-24-2022 End: 05-24-2022 Refill Bouchra Mascorro [facility] Work Phone: Hematology/Oncology Comment on above: Refill Request Rectal cancer (HCC) (Primary Dx); Follow-up examination after colorectal surgery; Attention to colostomy (HCC) Rectosigmoid cancer (HCC) (Primary Dx) Start: 05-13-2022 Patient encounter procedure [facility] Provider [facility] Department Start: 05-12-2022 Telephone encounter Oscar chávez MD [...] to Work Request) Start: 04-22-2022 Telephone encounter Charity Pichardo RN Work Phone: Hematology/Oncology Comment on [...] Dx) Start: 04-01-2022 End: 04-01-2022 ambulatory Temi Ramirez PA-C Work Phone: Hematology/Oncology Comment on above: Rectosigmoid cancer (HCC) (Primary Dx) Start: 04-01-2022 End: 04-01-2022 Patient encounter procedure Temi Ramirez PA-C Work Phone: [facility] Start: 03-30-2022 End: 03-30-2022 Patient encounter procedure Tylor Davalos MD Work Phone: Radiation Oncology Comment on above: Rectal cancer (HCC) (Primary Dx); Post-op pain Start: 03-25-2022 Telephone encounter Rob Trotter Research Coordinator [facility] Provider Adult Comment on above: Research F/U Start: 03-23-2022 End: 03-23-2022 Patient encounter procedure Tyolr Davalos MD Work Phone: Radiation Oncology Comment [...] (HCC) (Primary Dx) Start: 03-15-2022 Telephone encounter Charity Pichardo RN Work Phone: Hematology/Oncology Comment on above: Care Coordination (C 1D1 treatment follow up call) Disability Paperwork Start: 03-14-2022 Telephone encounter Oscar chávez MD Work Phone: Hematology/Oncology Comment on above: Patient Question Start: 03-11-2022 Telephone encounter Ana stover MD Work Phone: Colorectal Surgery Comment on above: Patient Question Start: 03-01-2022 End: 03-01-2022 ambulatory Charity Pichardo RN Work Phone: Hematology/Oncology Comment on above: First Time Treatment Education Rectosigmoid cancer (HCC) (Primary Dx) Start: 03-01-2022 End: 03-01-2022 Patient encounter procedure [facility] Provider [facility] Department Start: 02-28-2022 End: 02-28-2022 Subsequent hospital visit by physician Tylor Davalos MD Work Phone: Radiology Pet CT Start: 02-28-2022 Patient encounter procedure Tylor Davalos MD Work Phone: [facility] Start: 02-28-2022 Radiation Oncology Note Tylor levin MD Work Phone: Radiation Oncology Comment on above: Simulation Note Treatment Planning Start: 02-28-2022 Telephone encounter Elodia Nixon RN NOC Comment on above: Follow Up (Gyant int eraction - F/U - attempt made. No answer. ) Start: 02-24-2022 Refill Betty Glass [facility] Work Phone: Hematology/Oncology Comment on above: Refill Request Start: 02-18-2022 Telephone encounter Jade Pascual RN Pre Anesthesia Comment on above: Pre-Op Update (Preop labs (ConABO) ) Medication Follow-up (capecitabine prior auth submitted) Refill Request Start: 02-17-2022 Telephone encounter Charity Pichardo RN Work Phone: Hematology/Oncology Comment on above: Care Coordination (f ollow up, treatment plan) Start: 02-16-2022 End: 02-16-2022 ambulatory [facility] Start: 02-16-2022 Encounter for other preprocedural examination [facility] Start: 02-16-2022 End: 02-16-2022 Admission to establishment Pacc Av [address] Other Phone: [facility] Start: 02-16-2022 End: 02-16-2022 Drug abuse [...] Work Phone: Colorectal Surgery Comment on above: [employer]er - [employer] ther Start: 02-07-2022 Telephone encounter Oscar chávez MD Work Phone: Hematology/Oncology Comment on above: Patient Update Start: 02-04-2022 Telephone encounter Ana stover MD Work Phone: Colorectal Surgery Comment on above: Pai Gow Dealer - O esteban OLSEN Paperwork Disability [facility] Start: 02-04-2022 End: 02-04-2022 [...] RN Hematology/Oncology Comment on above: Results Start: 01-13-2022 End: 01-13-2022 Subsequent hospital visit by physician Arrival [facility] Radiology Work Phone: Radiology Pet CT Comment on above: 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) [C19] Start: 11-29-2021 End: 11-30-2021 ambulatory SHAIKH Trey DOWNSRADHA Facility: Start: 09-16-2021 End: 09-16-[address] NONE LISTED REQUEST Facility:[facility] Start: 08-27-2021 End: 08-27-[address] NONE LISTED REQUEST Facility: Procedures Date Procedure Procedure Detail Performing Clinician Start: 04-27-2023 Lipid 1996 panel - S sp or Plasma Ana Enriquez MD Work Phone: Start: 02-09-2023 Ecg routine ecg w/le ast 12 lds i&r only [facility] Provider Start: 01-31-2023 Radiologic exam colo n single contrast study Ana Enriquez MD Work Phone: Start: 10-28-2022 Antibody screen Pacc 2 Work Phone: Start: 10-17-2022 Ct abdomen & pelvis w/contrast material Ana Enriquez MD Work Phone: Start: 10-13-2022 Sigmoidoscopy flx dx w/collj spec br/wa if pfrmd Ana Enriquez MD Work Phone: Start: 09-26-2022 Mri pelvis w/o & w/c ontrast material Temi Zavala James PA-C Work Phone: Start: 09-26-2022 Ct thorax w/contrast material Temi Zavala James PA-C Work Phone: Start: 09-26-2022 Creatinine [Mass/vol ume] in Serum or Plasma [facility] Provider Start: 08-26-2022 Blood count complete auto&auto difrntl wbc Oscar Gonzalez MD Work Phone: Start: 08-05-2022 Blood count complete auto&auto difrntl wbc Temi Zavala James PA-C Work Phone: Start: 06-24-2022 Blood count complete auto&auto difrntl wbc Oscar Gonzalez MD Work Phone: Start: 05-12-2022 Mri pelvis w/o & w/c ontrast material Oscar Gonzalez MD Work Phone: Start: 02-03-2022 Mri pelvis w/o & w/c ontrast material Alla Ramirez MD Work Phone: Start: 01-13-2022 Ct abdomen & pelvis w/contrast material Oscar Gonzalez MD Work Phone: Start: 01-13-2022 Ct thorax w/contrast material Oscar Gonzalez MD Work Phone: Plan of Treatment Date Care Activity Detail Author Start: 04-27-2028 Lipid 1996 panel - S sp or Plasma Lipid Screening [facility] Start: 04-27-2028 Lipid panel Lipid Screening [facility] Start: 04-27-2028 LIPID SCREEN LIPID SCREEN [facility] Start: 10-13-2027 COLORECTAL CANCER SCREENING COLORECTAL CANCER SCREENING [facility] Start: 10-13-2027 Screening for malign ant neoplasm of colon [facility] Start: 10-13-2027 SIGMOIDOSCOPY SIGMOIDOSCOPY [facility] Start: 02-21-2026 DIABETES SCREEN [facility] Start: 02-21-2026 Diabetes Screening Diabetes Screenin g [facility] Start: 02-09-2026 DIABETES SCREEN DIABETES SCREEN [facility] Start: 11-09-2025 DIABETES SCREEN DIABETES SCREEN [facility] Start: 10-28-2025 DIABETES SCREEN [facility] Start: 08-26-2025 DIABETES SCREEN DIABETES SCREEN [facility] Start: 08-05-2025 DIABETES SCREEN DIABETES SCREEN [facility] Start: 07-15-2025 DIABETES SCREEN DIABETES SCREEN [facility] Start: 06-24-2025 DIABETES SCREEN DIABETES SCREEN [facility] Start: 05-24-2025 DIABETES SCREEN DIABETES SCREEN [facility] Start: 04-12-2025 DIABETES SCREEN DIABETES SCREEN [facility] Start: 04-01-2025 DIABETES SCREEN DIABETES SCREEN [facility] Start: 03-18-2025 DIABETES SCREEN DIABETES SCREEN [facility] Start: 02-24-2025 DIABETES SCREEN DIABETES SCREEN [facility] Start: 02-22-2025 DIABETES SCREEN DIABETES SCREEN [facility] Start: 02-04-2025 DIABETES SCREEN DIABETES SCREEN [facility] Start: 11-11-2024 End: 11-11-2024 Patient encounter procedure 11/11/2024 11:30 AM EST Office Visit Cardiology [address] [place] [address] [place] [address] [place] [address] [address] staff message from Dr. Oliver Cardiology Comment on above: Per staff message fr juanpablo Oliver Start: 11-06-2024 End: 11-06-2024 Patient encounter procedure 11/06/2024 3:30 PM EST Office Visit [facility] [address] [place] [id number] Esther Workman, FAIZAN [address] [place] [address] [facility] Start: 08-05-2024 End: 08-05-2025 DRUG TOX MONITORING 9 SCREEN, URINE DRUG TOX MONITORING 9 SCREEN, URINE Lab Routine Long-term current use of high risk medication other than anticoagulant Expected: 08/05/2024 (Approximate), Expires: 08/05/2025 [facility] Work Phone: Comment on above: Expected: 08/05/2024 (Approximate), Expires: 08/05/2025 Start: 08-05-2024 End: 08-05-2024 Patient encounter procedure 08/05/2024 10:00 AM EDT Office Visit [facility] [address] [place] [place] [address] Esther Workman NP [address] [place] [address] Arrived [facility] Comment on above: Arrived Start: 07-26-2024 End: 07-26-2024 Orders Only 07/26/2024 Orders Only Cardiology [address] [place] [address] [place] [address] [place] [address] History of endocarditis; Nonrheumatic tricuspid valve regurgitation; Abnormality of right ventricle of heart - Enlarged Cardiology Comment on above: History of endocardi tis; Nonrheumatic tricuspid valve regurgitation; Abnormality of right ventricle of heart - Enlarged Start: 07-03-2024 End: 07-03-2024 Admission to same day surgery center 07/03/2024 8:30 AM EDT - 07/03/2024 11:15 AM EDT Surgery [facility] Operating Room [id number] [place] [id number] [place] [address] [place] [address] HERNIORRHAPHY INGUINAL ELECTIVE ADULT REDUCIBLE [facility] Operating Room Comment on above: HERNIORRHAPHY INGUIN AL ELECTIVE ADULT REDUCIBLE Start: 07-03-2024 End: 07-03-2024 Rpr 1st ingun hrna age 3 yrs/> reducible HERNIORRHAPHY INGUINAL ELECTIVE ADULT REDUCIBLE Unilateral inguinal hernia without obstruction or gangrene, recurrence not specified 07/03/2024 8:30 AM EDT [facility] OR Start: 07-03-2024 Subsequent hospital visit by physician 07/03/2024 8:30 AM EDT Hospital Encounter [facility] Operating Room [address] [place] [address] [place] [address] [place] [address] Unilateral inguinal hernia without obstruction or gangrene, recurrence not specified [K40.90] [facility] Operating Room Comment on above: Unilateral inguinal hernia without obstruction or gangrene, recurrence not specified [K40.90] Start: 07-02-2024 End: 07-02-2024 Patient encounter procedure 07/02/2024 3:00 PM EDT Office Visit [facility] [address] [place] [address] Esther Workman NP [address] [place] [address] [facility] Start: 06-30-2024 Covid-19 Vaccine ( season) Covid-19 Vaccine ( season) [facility] Start: 06-30-2024 Covid-19 Vaccine ( season) Covid-19 Vaccine ( season) [facility] Start: 06-30-2024 Influenza vaccination Influenza Vacc ine (#1) [facility] Start: 2023 Shingrix Vaccine (1 of 2) Malin grix Vaccine (1 of 2) [facility] Start: 06-30-2023 Covid-19 Vaccine ( season) Covid-19 Vaccine ( season) [facility] Start: 06-30-2023 Influenza vaccination [facility] Start: 01-30-2023 End: 04-01-2023 CBC W Auto Differential panel - Blood CBC + DIFF Lab Routine Encounter for follow-up surveillance of rectal cancer Acute post-operative pain Expected: 01/30/2023, Expires: 04/01/2023 [facility] Work Phone: Comment on above: Expected: 01/30/2023 , Expires: 04/01/2023 Start: 01-30-2023 End: 04-01-2023 Comprehensive metabolic 2000 panel - Serum or Plasma COMP METABOLIC PANEL Lab Routine Encounter for follow-up surveillance of rectal cancer Acute post-operative pain Expected: 01/30/2023, Expires: 04/01/2023 [facility] Work Phone: Comment on above: Expected: 01/30/2023 , Expires: 04/01/2023 Start: 01-30-2023 End: 04-01-2023 TYPE AND SCREEN,30 DAY TYPE AND SCREEN,30 DAY Blood Bank Routine Encounter for follow-up surveillance of rectal cancer Acute post-operative pain Expected: 01/30/2023, Expires: 04/01/2023 [facility] Work Phone: Comment on above: Expected: 01/30/2023 , Expires: 04/01/2023 Start: 10-30-2022 DEPRESSION ASSESSMENT DEPRESSION ASS ESSMENT [facility] Start: 09-23-2022 End: 11-23-2022 CBC W Auto Differential panel - Blood CBC + DIFF Lab Routine Malignant neoplasm of rectum (HCC) Lung nodules Expected: 09/23/2022 (Approximate), Expires: 11/23/2022 [facility] Work Phone: Comment on above: Expected: 09/23/2022 (Approximate), Expires: 11/23/2022 Start: 09-23-2022 End: 11-23-2022 Comprehensive metabolic 2000 panel - Serum or Plasma COMP METABOLIC PANEL Lab Routine Malignant neoplasm of rectum (HCC) Lung nodules Expected: 09/23/2022 (Approximate), Expires: 11/23/2022 [facility] Work Phone: Comment on above: Expected: 09/23/2022 (Approximate), Expires: 11/23/2022 Start: 08-26-2022 End: 10-26-2022 CBC W Auto Differential panel - Blood CBC + DIFF Lab Routine Rectal cancer (HCC) Expected: 08/26/2022 (Approximate), Expires: 10/26/2022 [facility] Work Phone: Comment on above: Expected: 08/26/2022 (Approximate), Expires: 10/26/2022 Start: 08-26-2022 End: 10-26-2022 Comprehensive metabolic 2000 panel - Serum or Plasma COMP METABOLIC PANEL Lab Routine Rectal cancer (HCC) Expected: 08/26/2022 (Approximate), Expires: 10/26/2022 [facility] Work Phone: Comment on above: Expected: 08/26/2022 (Approximate), Expires: 10/26/2022 Start: 07-15-2022 End: 09-14-2022 CBC W Auto Differential panel - Blood [facility] Work Phone: Comment on above: Expected: 07/15/2022 (Approximate), Expires: 09/14/2022 Expected: 07/15/2022 , Expires: 09/14/2022 Start: 07-15-2022 End: 09-14-2022 Comprehensive metabolic 2000 panel - Serum or Plasma [facility] Work Phone: Comment on above: Expected: 07/15/2022 (Approximate), Expires: 09/14/2022 Expected: 07/15/2022 , Expires: 09/14/2022 Start: 06-30-2022 Influenza vaccination C [facility] Start: 05-24-2022 End: 07-24-2022 Carcinoembryonic Ag [Mass/volume] in Serum or Plasma CEA BLD Lab Routine Rectosigmoid cancer (HCC) Expected: 05/24/2022 (Approximate), Expires: 07/24/2022 [facility] Work Phone: Comment on above: Expected: 05/24/2022 (Approximate), Expires: 07/24/2022 Start: 05-24-2022 End: 07-24-2022 CBC W Auto Differential panel - Blood CBC + DIFF Lab Routine Rectosigmoid cancer (HCC) Expected: 05/24/2022 (Approximate), Expires: 07/24/2022 [facility] Work Phone: Comment on above: Expected: 05/24/2022 (Approximate), Expires: 07/24/2022 Start: 05-24-2022 End: 07-24-2022 Comprehensive metabolic 2000 panel - Serum or Plasma COMP METABOLIC PANEL Lab Routine Rectosigmoid cancer (HCC) Expected: 05/24/2022 (Approximate), Expires: 07/24/2022 [facility] Work Phone: Comment on above: Expected: 05/24/2022 (Approximate), Expires: 07/24/2022 Start: 05-17-2022 End: 05-12-2023 Mri pelvis w/o & w/contrast material MRI RECTUM WO/W IVCON Radiology Routine Malignant neoplasm of rectum (HCC) Expected: 05/17/2022, Expires: 05/12/2023 [facility] Work Phone: Comment on above: Expected: 05/17/2022 , Expires: 05/12/2023 Start: 04-01-2022 End: 06-01-2022 CBC W Auto Differential panel - Blood [facility] Work Phone: Comment on above: Expected: 04/01/2022 (Approximate), Expires: 06/01/2022 Expected: 04/01/2022 , Expires: 06/01/2022 Start: 04-01-2022 End: 06-01-2022 Comprehensive metabolic 2000 panel - Serum or Plasma [facility] Work Phone: Comment on above: Expected: 04/01/2022 (Approximate), Expires: 06/01/2022 Expected: 04/01/2022 , Expires: 06/01/2022 Start: 03-18-2022 End: 05-18-2022 CBC W Auto Differential panel - Blood CBC + DIFF Lab Routine Rectosigmoid cancer (HCC) Expected: 03/18/2022, Expires: 05/18/2022 [facility] Work Phone: Comment on above: Expected: 03/18/2022 , Expires: 05/18/2022 Start: 03-18-2022 End: 05-18-2022 Comprehensive metabolic 2000 panel - Serum or Plasma COMP METABOLIC PANEL Lab Routine Rectosigmoid cancer (HCC) Expected: 03/18/2022, Expires: 05/18/2022 [facility] Work Phone: Comment on above: Expected: 03/18/2022 , Expires: 05/18/2022 Start: 02-16-2022 End: 04-18-2022 CONFIRM BLOOD TYPE CONFIRM BLOOD TYPE Blood Bank Routine Pre-op exam Rectal mass Expected: 02/16/2022, Expires: 04/18/2022 [facility] Work Phone: Comment on above: Expected: 02/16/2022 , Expires: 04/18/2022 Start: 10-30-2021 DEPRESSION ASSESSMENT DEPRESSION ASS ESSMENT [facility] Start: 06-30-2021 Influenza vaccination INFLUENZA (#1) [facility] Start: 2018 COLOGUARD (FIT-DNA) COLOGUARD (FIT-D NA) [facility] Start: 2018 Colonoscopy COLONOSCOPY [facility] Start: 2018 COLORECTAL CANCER SCREENING COLORECTAL CANCER SCREENING [facility] Start: [address] COLONOGRAPHY [facility] Start: 2018 DIABETES SCREEN DIABETES SCREEN [facility] Start: 2018 FECAL OCCULT BLOOD FECAL OCCULT BLOO D [facility] Start: 2018 Screening for malign ant neoplasm of colon [facility] Start: 2018 [facility] Start: 2008 LIPID SCREEN LIPID SCREEN [facility] Start: 1992 Hepatitis B Vaccine (1 of 3 - 19+ 3-dose series) Hepatitis B Vaccine (1 of 3 - 19+ 3-dose series) [facility] Start: 1992 SHINGRIX VACCINE (1 of 2) MALIN GRIX VACCINE (1 of 2) [facility] Start: 1992 Urine microalbumin profile [facility] Start: 1991 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 ANNUAL PCP TEAM CHRONIC DISEASE VISIT [facility] Start: 1991 Anxiety Screening Anxiety Screening [facility] Start: 1991 Depression Screening Depression Scre ening [facility] Start: 1991 HEPATITIS C SCREENING HEPATITIS C SC [facility] Start: 1991 Hepatitis C screening Hepatitis C Sc [facility] Start: 1991 HIV SCREENING HIV SCREENING [facility] Start: 1991 HIV screening HIV Screening [facility] Start: 1985 Adult depression scr eening assessment DEPRESSION SCREENING [facility] Start: 1985 COVID-19 VACCINE (1) COVID-19 VACCIN E (1) [facility] Start: 1979 PNEUMOCOCCAL (1 - PCV) PNEUMOCOCCAL (1 - PCV) [facility] Start: 1978 COVID-19 VACCINE (#1) COVID-19 VACCI NE (#1) [facility] Start: 1978 COVID-19 VACCINE (1) COVID-19 VACCIN E (1) [facility] Start: 01-10-1974 COVID-19 VACCINE (#1) COVID-19 VACCI NE (#1) [facility] Start: 1973 HEPATITIS B (1 of 3 - 3-dose series) HEPATITIS B (1 of 3 - 3-dose series) [facility] Start: 1973 Hepatitis B Vaccine (1 of 3 - 3-dose series) Hepatitis B Vaccine (1 of 3 - 3-dose series) [facility] Start: 1973 Screening for malign ant neoplasm of colon [facility] End: 11-03-2023 Ct abdomen & pelvis w/contrast material CT ABD/PEL W IVCON Radiology Routine Malignant neoplasm of rectum (HCC) 1 Occurrences starting 10/04/2022 until 11/03/2023 [facility] Work Phone: Comment on above: 1 Occurrences starti ng 10/04/2022 until 11/03/2023 End: 09-25-2023 CT CHEST W IVCON CT CHEST W IVCON Radiology Routine Lung nodules 1 Occurrences starting 08/26/2022 until 09/25/2023 [facility] Work Phone: Comment on above: 1 Occurrences starti ng 08/26/2022 until 09/25/2023 ECG COMPLETE ECG COMPLETE ECG 02/09/2023 1:57 PM EDT [facility] End: 09-25-2023 Mri pelvis w/o & w/contrast material MRI RECTUM WO/W IVCON Radiology Routine Malignant neoplasm of rectum (HCC) 1 Occurrences starting 08/26/2022 until 09/25/2023 [facility] Work Phone: Comment on above: 1 Occurrences starti ng 08/26/2022 until 09/25/2023 End: 02-16-2024 Radiologic exam colon single contrast study XR COLON SINGLE CONTRAST Radiology Routine Encounter for follow-up surveillance of rectal cancer Acute post-operative pain 1 Occurrences starting 01/17/2023 until 02/16/2024 [facility] Work Phone: Comment on above: 1 Occurrences starti ng 01/17/2023 until 02/16/2024 End: 05-24-2023 SIGMOIDOSCOPY SIGMOIDOSCOPY Endoscopy Routine Follow-up examination after colorectal surgery Rectal cancer (HCC) 1 Occurrences starting 05/25/2022 until 05/24/2023 [facility] Work Phone: Comment on above: 1 Occurrences starti ng 05/25/2022 until 05/24/2023 [facility] Immunizations Immunization Date Immunization Notes Care Provider [facility] 12-01-2018 influenza, injectabl e, quadrivalent, contains preservative Ana Enriquez MD Work Phone: [facility] 12-01-2018 influenza virus vacc ine, unspecified formulation Ana Enriquez MD Work Phone: [facility] Payers Date Payer Category Payer Unknown [id number] 2021 Unknown IRVIN MULLINS [employer] PPO [id number] 2021-Present [phone] [address] [place] [address] PPO [id number] 2021 Unknown [id number] 2019 Medicaid MEDICAID [place] GENERIC MEDICAID [place] GENERIC [id number] 2019-Present [address] [place] [address] Medicaid [id number] 1973 Unknown [id number] 1973 Unknown [id number] 1973 Unknown [id number] 1973 Unknown [id number] 1973 Unknown [id number] 1973 Unknown [id number] 1973 Unknown [id number] 1973 Unknown [id number] 1973 Unknown [id number] 1973 Unknown [id number] 1959 Self-pay [id number] 1959 Unknown [id number] Social History Date Type Detail Facility Start: 12-29-2021 End: 02-16-2022 Tobacco smoking status PAIS Smokes tobacco daily [facility] Start: 12-29-2021 End: 01-22-2024 Tobacco use and exposure Smokeless tobacco non-user [facility] Start: 01-18-2022 End: 02-16-2022 Alcohol intake Current drinker of alcohol (finding) [facility] Start: 01-17-2022 History SDOH Alcohol Comment 2 drinks/week; heavy in psat [facility] Start: 1975 Sex Assigned At Not on file C [facility] Start: 01-03-2022 End: 09-26-2022 Exposure to SARS-CoV-2 (event) Not sure [facility] Start: 12-29-2021 End: 03-28-2024 Cigarettes smoked current (pack per day) - Reported 0.5 [facility] Start: 02-16-2022 History SDOH Alcohol Comment 2 drinks/week; heavy in past [facility] Start: 10-30-1997 End: 10-30-2022 History of tobacco use Cigarette Smoker [facility] Work Phone: Start: 10-28-2022 Tobacco Comment Less than half a pac k [facility] Start: 01-17-2023 End: 01-22-2024 Tobacco smoking status NHIS Ex-smoker [facility] Start: 10-30-1997 End: 10-30-2022 History of tobacco use Current smoker [facility] Start: 01-17-2023 End: 03-28-2024 Alcohol intake Ex-drinker (finding) [facility] Start: 02-21-2023 History SDOH Financial 5 [facility] Start: 02-21-2023 History SDOH Food Worry 1 [facility] Start: 02-21-2023 History SDOH Transpo rt Med 2 [facility] Start: 02-09-2023 End: 03-28-2024 Tobacco use panel [facility] How hard is it for y ou to pay for the very basics like food, housing, medical care, and heating Not hard at all [facility] (I/We) worried wheth er (my/our) food would run out before (I/we) got money to buy more. Never true [facility] In the past 12 month s, was there a time when you were not able to pay the mortgage or rent on time? No [facility] History of tobacco use Passive smoker [facility] Tobacco smoking status No Smokin g Status Entered [facility] Procedure Code Equipment Code Equipment Origin al Text Equipment Identifier Dates Mesh Parietene Macroporous 15x7.5cm Surgical - [id number] Start: 07-03-2024 Clinical Notes 01-13-2022 to 08-14-2024 Telephone Encounter - Harper Najera OCCA - 08/14/2024 11:17 AM EDTTelephone Encounter - Harper Najera OCCA - 08/14/2024 11:17 AM Mateus Workman NP - 08/05/2024 11:32 AM EDT Note Date & Type Note Facility 08-14-2024 Telephone encounter Note Return to work letter forwarded to the patient thru My Chart on 08/14/24. [facility] 08-14-2024 Miscellaneous Notes Return to work letter forwarded to the patient thru My Chart on 08/14/24. Patient called regarding FMLA and returning back to work surgery was 07/03 did not come back for post operative visit return call to [phone] documented in this encounter [facility] 08-14-2024 Telephone encounter Note Patient called regarding FMLA and returning back to work surgery was 07/03 did not come back for post operative visit return call to [phone] [facility] Work Phone: 08-07-2024 Telephone encounter Note Spoke over the phone to patient's SO [facility], and relayed Dr. Vaca's message: Blood pressure has been consistently elevated. Prescribed amlodipine 5 mg daily. This should not impact his right ventricle and may actually improve his right sided pressures. SO states understanding. Adjusted order for new pharmacy per request to Eliseo Aguirre [place], and pended back to Dr. Vaca. Pablito Brooks RN [facility] 08-07-2024 Miscellaneous Notes Spoke over the phone to patient's SO [facility], and relayed Dr. Vaca's message: Blood pressure has been consistently elevated. Prescribed amlodipine 5 mg daily. This should not impact his right ventricle and may actually improve his right sided pressures. SO states understanding. Adjusted order for new pharmacy per request to Eliseo Aguirre [place], and pended back to Dr. Vaca. Pablito Brooks RN LVMOP at office informing that Dr. Vaca is out of office until tomorrow and that clinical judgement should be used to serve the patient best as provider sees fit. Will review with Dr. Vaca upon return and routing this encounter to him. Pablito Brooks RN [facility] called in stating pt was in office today blood pressure was 168/98 Esther Workman is the nurse practitioner she would like to know if Dr Graham is going to start this pt on therapy or if she should do it please call and advise the office @[phone] documented in this encounter [facility] 08-05-2024 Telephone encounter Note LVMOP at office informing that Dr. Vaca is out of office until tomorrow and that clinical judgement should be used to serve the patient best as provider sees fit. Will review with Dr. Vaca upon return and routing this encounter to him. Pablito Brooks RN [facility] 08-05-2024 Telephone encounter Note [facility] called in stating pt was in office today blood pressure was 168/98 Esther Workman is the nurse practitioner she would like to know if Dr Graham is going to start this pt on therapy or if she should do it please call and advise the office @[phone] [facility] 08-05-2024 History of Present illness Narrative Associated Problem(s): Opioid abuse, uncomplicated (CMS/HCC) Pt stopped taking suboxone 6 months ago, states he weaned down and stopped entirely. No longer follows with addiction medicine; Associated Problem(s): Elevated blood pressure reading Elevated BP reading today in office- BP was also elevated at OV with cardiology on 06/25/24; Per cardiology's note opt was to monitor BP and report readings back to them. If elevated readings Cardiology was going to initiate medication. Will reach out to Cardiology to discuss BP and tx plan. Associated Problem(s): Tobacco dependence due to cigarettes Pt educated on hazardous effects of smoking and nicotine. Smoking cessation counseling provided. Nicotine patches ordered. Associated Problem(s): Severe tricuspid regurgitation Following closely with [facility] Card[facility]. Next appointment with [facility] 11/11/2024; Associated Problem(s): Left inguinal hernia Had inguinal hernia repair 07/03/2024- Following with Dr. Dexter Elliott Is due to schedule follow up; Advised pt to keep all follow up appointments with specialists and take all medications as directed. Associated Problem(s): Attention deficit hyperactivity disorder (ADHD), predominantly hyperactive type (CMS/HCC) Was prescribed Adderall 15mg once daily in [...] symptoms may be underlying Bipolar vs ADHD. Associated Problem(s): Mixed incontinence urge and stress States when he has to go he has very little time before he will begin to urinate on himself. Pt also reports there are times that he urinates on himself with no warning or urge. Denies urinary flow concerns. Referral sent to Urology. Images from the original note were not included. Subjective Patient ID: Hoang Dorado is a 49 y.o. male who presents for Follow-up (States just a new appoint with new provider). HPI Specialists: Cardiology- [facility]- Next appointment with [facility] 11/11/2024; Recently had inguinal hernia repair 07/03/2024- Following with Dr. Dexter Elliott Is due to schedule follow up; Advised pt to keep all follow up appointments with specialists and take all medications as directed. Pt stopped taking suboxone 6 months ago, states he weaned down and stopped entirely. No longer follows with addiction medicine; Elevated BP reading today in office- BP was also elevated at OV with cardiology on 06/25/24; Per cardiology's note opt was to monitor BP and report readings back to them. If elevated readings Cardiology was going to initiate medication. Will reach out to Cardiology to discuss BP and tx plan. ADHD: States he has never had formal diagnosis; States he was taking lithium in the past, and Wellbutrin. But stopped both; States he was told he was bipolar when coming out of rehab, but does not believe that diagnosis was correct because he was coming off of drugs. States he is currently not working; Admits: Difficulty sleeping Racing thoughts Anxiety Difficulty completing tasks Excessive energy Getting very little sleep but still having a lot of energy. Sleeps 4-5 hours per day. Feels like he is bouncing off the mayo with downtime. Depression intermittently Denies: Poor appetite SI/HI Reports urinary incontinence. States when he has to go he has very little time before he will begin to urinate on himself. Pt also reports there are times that he urinates on himself with no warning or urge. Denies urinary flow concerns. Referral sent to Urology. Review of Systems Constitutional: Negative for activity change, appetite change, chills, diaphoresis, fatigue, fever and unexpected weight change. HENT: Negative for congestion, ear pain, rhinorrhea, sinus pressure, sinus pain, sneezing, sore throat, trouble swallowing and voice change. Eyes: Negative for visual disturbance. Respiratory: Negative for cough, chest tightness, shortness of breath and wheezing. Cardiovascular: Negative for chest pain, palpitations and leg swelling. Gastrointestinal: Negative for abdominal distention, abdominal pain, blood in stool, constipation, diarrhea and vomiting. Genitourinary: Negative for decreased urine volume, dysuria, flank pain, frequency, hematuria and urgency. Musculoskeletal: Negative for arthralgias, gait problem, joint swelling and myalgias. Skin: Negative for rash. Neurological: Negative for dizziness, tremors, syncope, weakness, light-headedness and headaches. Psychiatric/Behavioral: Positive for agitation, decreased concentration and sleep disturbance. Negative for suicidal ideas. The patient is nervous/anxious and is hyperactive. Hematological: Does not bruise/bleed easily. Endocrine: Negative for cold intolerance, heat intolerance, polydipsia, polyphagia and polyuria. Objective Physical Exam Vitals reviewed. Constitutional: Appearance: Normal appearance. HENT: Head: Normocephalic and atraumatic. Right Ear: Tympanic membrane normal. Left Ear: Tympanic membrane normal. Nose: Nose normal. Mouth/Throat: Mouth: Mucous membranes are moist. Pharynx: Oropharynx is clear. Eyes: Pupils: Pupils are equal, round, and reactive to light. Cardiovascular: Rate and Rhythm: Normal rate and regular rhythm. Pulses: Normal pulses. Heart sounds: Normal heart sounds. Pulmonary: Effort: Pulmonary effort is normal. Breath sounds: Normal breath sounds. Abdominal: General: Abdomen is flat. Bowel sounds are normal. Palpations: Abdomen is soft. Musculoskeletal: General: Normal range of motion. Cervical back: Normal range of motion. Skin: General: Skin is warm and dry. Capillary Refill: Capillary refill takes less than 2 seconds. Neurological: General: No focal deficit present. Mental Status: He is alert and oriented to person, place, and time. Psychiatric: Mood and Affect: Mood normal. Behavior: Behavior normal. Assessment/Plan Problem List Items Addressed This Visit Attention deficit hyperactivity disorder (ADHD), predominantly hyperactive type (CMS/HCC) - Primary Was prescribed Adderall 15mg once daily in [...] symptoms may be underlying Bipolar vs ADHD. Relevant Orders Ambulatory referral to Behavioral Health Long-term current use of high risk medication other than anticoagulant Relevant Orders DRUG TOX MONITORING 9 SCREEN, URINE Mixed incontinence urge and stress States when he has to go he has very little time before he will begin to urinate on himself. Pt also reports there are times that he urinates on himself with no warning or urge. Denies urinary flow concerns. Referral sent to Urology. Relevant Orders Ambulatory referral to Urology Tobacco dependence due to cigarettes Pt educated on hazardous effects of smoking and nicotine. Smoking cessation counseling provided. Nicotine patches ordered. Relevant Medications nicotine (Nicotine Step 1) 21 MG/24HR patch nicotine (Nicoderm, Step 2) 14 MG/24HR patch nicotine (Nicoderm, Step 3) 7 MG/24HR patch Opioid abuse, uncomplicated (CMS/HCC) Pt stopped taking suboxone 6 months ago, states he weaned down and stopped entirely. No longer follows with addiction medicine; documented in this encounter [facility] 08-05-2024 Instructions Esther Workman NP - 08/05/2024 10:00 AM EDT Referral sent to Behavioral Health- Kelly Prieto for formal eval; and tx; They will call you. Referral sent to Urology- Dr. Mcarthur; They will call you. If you do not hear from referrals in 2 weeks, call my office. Keep all follow up appointments as scheduled. documented in this encounter [facility] 07-10-2024 Telephone encounter Note Called patient as a post surgery follow up call, went to voicemail. Left message with office contact information and encouraged patient to call with questions or concerns. S/p open left inguinal hernia repair with mesh 07/03/24 Post op: no appt; encouraged pt to call and schedule [facility] 07-10-2024 Miscellaneous Notes Called patient as a post surgery follow up call, went to voicemail. Left message with office contact information and encouraged patient to call with questions or concerns. S/p open left inguinal hernia repair with mesh 07/03/24 Post op: no appt; encouraged pt to call and schedule documented in this encounter [facility] 07-05-2024 Telephone encounter Note Employer Forms for Patient/Caregiver Time Off of Work FMLA completed, signed by provider, and returned to below contact. Also faxed operative / procedure note 07/03/24 and office visit note 06/13/24. Completed copy scanned in [employer]. Date of Surgery: 07/03/24 Estimated RTW date:08/14/24 Employer: [employer] Date sent to employer: 07/05/24 Received fax confirmation: YES [facility] 07-05-2024 Miscellaneous Notes Employer Forms for Patient/Caregiver Time Off of Work FMLA completed, signed by provider, and returned to below contact. Also faxed operative / procedure note 07/03/24 and office visit note 06/13/24. Completed copy scanned in [employer]. Date of Surgery: 07/03/24 Estimated RTW date:08/14/24 Employer: [employer] Date sent to employer: 07/05/24 Received fax confirmation: YES Received FMLA/STD paperwork on 07/05/2024 Pending physician signature and completion. Surgeon: Dr. Elliott Date of Surgery (if known):07/03/2024 documented in this encounter [facility] 07-05-2024 Telephone encounter Note Created in error [facility] 07-05-2024 Miscellaneous Notes Created in error documented in this encounter [facility] 07-05-2024 Telephone encounter Note Received FMLA/STD paperwork on 07/05/2024 Pending physician signature and completion. Surgeon: Dr. Elliott Date of Surgery (if known):07/03/2024 [facility] 07-04-2024 Telephone encounter Note Returned patient call. Patient wanted to know if we have received paperwork from his HR department as he did advise prior to his surgery that he needed off FMLA. I advised to the patient that FMLA paperwork has not yet been received and that he needs to contact his HR department to have paperwork fax (fax number provided). Patient verbally understood and agreed. Patient appreciative of return call. [facility] 07-04-2024 Miscellaneous Notes Returned patient call. Patient wanted to know if we have received paperwork from his HR department as he did advise prior to his surgery that he needed off FMLA. I advised to the patient that FMLA paperwork has not yet been received and that he needs to contact his HR department to have paperwork fax (fax number provided). Patient verbally understood and agreed. Patient appreciative of return call. Patient called and left a message regarding FMLA paperwork for inguinal hernia repair return call to [phone] documented in this encounter [facility] 07-04-2024 Telephone encounter Note Patient called and left a message regarding FMLA paperwork for inguinal hernia repair return call to [phone] [facility] Work Phone: 07-03-2024 Note HNO ID: [id number] Author: LISA KINNEY AA Service: ? Author Type: Circuit Court Judge Type: Anesthesia Procedure Notes Filed: 07/03/2024 09:57 Note Text: ANESTHESIOLOGY PROCEDURE NOTE Airway General Information Procedure Start Time/Medication Administration: 07/03/2024 8:44 AM Procedure End Time: 07/03/2024 8:45 AM Patient location during procedure: OR Patient identity confirmed: arm band, care seo team lead and patient Staffing Anesthesiologist: Peter Apodaca DO Resident: Seb Meyres DO CAA: Lisa Kinney AA Performed by: CAA student Indications and Patient Condition Indications for airway management: anesthesia Preoxygenated: yes anesthesia circuit Patient position: sniffing Method: asleep Cricoid Pressure: No Manual In-Line Stabilization: No Difficult Mask: No Final Airway Details Final airway type: supraglottic airway Number of attempts at approach: 1 Final Supraglottic Airway: IGEL Size 4 Seal Adequate: yes Failed airway: no Unrecognized esophageal intubation: no Airway not difficult Comments Placed by Elyssa BINGHAM SIGNATURE: HAYLEY Boo PATIENT NAME: Hoang Dorado DATE: July 03, 2024 TIME: 9:15 AM CSN: [id number] [facility] 06-25-2024 History of Present illness Narrative Images from the original note were not included. [facility] [place] Department of Cardiovascular Medicine SECTION OF REGIONAL CARDIOLOGY OUTPATIENT VISIT TYPE: NEW CHIEF COMPLAINT: Pre-op clearance Assessment & Plan Abnormality of right ventricle of heart - Enlarged Severe based on echo and more recently cardiac MRI Severe dysfunction also noted based on echo done in February of this year Unclear etiology Nonrheumatic tricuspid valve regurgitation Conflicting data with echocardiogram in February suggesting moderate to severe regurgitation and cardiac MRI in April only indicating mild regurgitation. Either way suspect this to be secondary to RV dilatation. Depressed left ventricular ejection fraction Conflicting data between echo and MRI with the echo in February showing normal ejection fraction and cardiac MRI showing low normal to mild decrease with an EF of 50% Clinically he is asymptomatic and not in heart failure. Will need follow-up evaluation on future outpatient visits Preoperative cardiovascular examination He had tolerated multiple colon surgeries in [...] a low. He may proceed as planned. 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 No recurrence Arrhythmogenic right ventricular dysplasia (HCC) Suspected based on recent MRI in [place] although inconclusive diagnosis No history of syncope No family history of sudden cardiac This needs to be further investigated however given the severity of his hernia symptoms, it can be done on future follow-up Secondary pulmonary arterial hypertension (HCC) Most recent echocardiogram only showing mild elevation of RVSP at 38 mmHg Tricuspid regurgitation, RV dilatation, and history of provoked single episode of pulmonary embolism all noted. Etiology unclear but significant variability in estimated RVSP noted. Probably needs a repeat echocardiogram in the [facility] system on future follow-up. Elevated blood pressure reading Admits to be very anxious about today's visit since he was concerned about being able to have his hernia fixed Has not had history of hypertension documented in the past. Advised to check his blood pressure at home to keep a log and if average blood pressure is above 130/80 to let us know since this would require initiation of treatment. Perioperatively as needed use of intravenous hydralazine would be acceptable for short-term blood pressure control. In summary Hoang pierre pr Mr. Petty oceed with hernia surgery as planned at low cardiac complication risk. Advised that he will need follow-up with cardiology in the future. A referral to Dr. Marie was placed since he saw him back in 2021 and his practice location is significantly more convenient (patient lives in [facility]) In the meantime he will check his blood pressure at home keeping a log for future follow-up and visits. The above was discussed with the patient in detail and all questions were answered. Thank you for allowing us to participate in the care of this patient and if I can be of any further assistance or if you have any questions or concerns, please do not hesitate to contact me. Mickie Vaca M.D., F.A.C.C. HPI: Mr. Hoang Dorado is a 48 year old male who is here today for preoperative cardiovascular evaluation. He has extensive history spanning multiple systems and to states. He has known history of pulmonary embolism, history of endocarditis, resultant severe RV dilatation and tricuspid regurgitation although reportedly his RV function was intact. He does have history of remote polysubstance abuse. He is a former smoker. History also significant for rectal cancer, ADHD, and hypothyroidism. He has undergone 4 surgeries according to his description since 2021 most recently in January 2023. All surgeries were tolerated very well. Initially he was scheduled to undergo hernia repair in [place] and was seen by [facility] [facility] cardiology after the cardiac MRI. Results are noted below and there was suspicion of arrhythmogenic RV dysplasia. There has been no history of syncope and no family history of sudden cardiac . No further cardiac follow-up has been noted since. He lives in [facility] and has since sought surgical opinion through the [facility] system. He is currently scheduled for a left inguinal hernia repair on 07/03/2024 and was referred for further cardiac evaluation and clearance. Symptomatically he denies chest pain, shortness of breath, orthopnea, PND, dizziness or syncope. Up until his hernia became symptomatic he has been very active. He exercises regularly. He does appear quite fit. CARDIAC TESTING: EKG 02/10/2024 ECHOCARDIOGRAM 03/22/2024 ([facility]) CONCLUSION: 1. Global left ventricular systolic function [...] right ventricular systolic pressure; RVSP 38 mmHg STRESS ECHOCARDIOGRAM: 04/17/2019 ([facility]) Conclusions Combined Study Negative for Scar or Ischemia Average Functional Capacity Exercise ECG Test Negative; baseline EKG- NSR, IRBBB, RAD Baseline Echo refer to body of Report The right ventricular cavity size is severely enlarged. There is moderate to severe tricuspid regurgitation. The right atrial cavity size is moderately dilated. The pulmonary artery pressures were in the 50-55mmHg range. CARDIAC MRI 05/01/2024 ([facility]) No abnormal delayed myocardial enhancement identified within the left ventricle. Left ventricular ejection fraction is decreased to low normal at 50.5%. Wall motion appears normal. There is abnormal signal identified within the right ventricular free wall. Findings are concerning for fibrofatty infiltration and possible arrhythmogenic right ventricular dysplasia. There is mild dephasing across the tricuspid valve which could indicate some mild tricuspid regurgitation. Valve leaflets normal CORONARY CTA 2015 OSH Reported 30% stenosis of proximal LAD. I have personally reviewed the Electrocardiogram and Laboratory Testing. CURRENT MEDICATONS: Current Outpatient Medications Medication Sig amphetamine-dextroamphetamine XR (ADDERALL XR) 15 mg capsule Take 1 capsule by mouth once daily for 30 days. lactobacillus rhamnosus (CULTURELLE) 10 billion cell capsule Take 1 capsule by mouth once daily. ibuprofen (MOTRIN) 200 mg tablet Take 200 mg by mouth every 6 hours as needed for pain. iv contrast (will be provided with radiology [...] Contrast as designated per enteric contrast guidelines loratadine (CLARITIN) 10 mg tablet Take 10 mg by mouth once daily. acetaminophen (TYLENOL) 500 mg tablet Take 2 tablets by mouth every 6 hours. levothyroxine (SYNTHROID) 125 mcg tablet Take 125 mcg by mouth once daily. No current facility-administered medications for this visit. ALLERGIES Patient has no known allergies. Social History Tobacco Use Smoking status: Former Current packs/day: 0.00 Average packs/day: 0.5 packs/day for 25.0 years (12.5 ttl pk-yrs) Types: Cigarettes Start date: 10/30/1997 Quit date: 10/30/2022 Years since quittin.6 Smokeless tobacco: Never Tobacco comments: Less than half a pack Vaping Use Vaping status: Never Used Substance Use Topics Alcohol use: Not Currently Comment: 2 drinks/week; heavy in past Drug use: Not Currently Types: IV Comment: Past drug use of stephie, since 2015 PHYSICAL EXAMINATION: BP 163/96 (BP Site: Right Arm, BP Position: Sitting, BP Cuff Size: Regular Adult) Pulse 77 Resp 20 Ht 170.2 cm (5' 7 ) Wt 60.8 kg (134 lb) SpO2 99% BMI 20.99 kg/m Last 3 Encounter BP Readings: Date: BP: 06/13/2024 152/93 02/20/2023 159/100 02/09/2023 130/67 Last 3 Encounter Pulse Readings: Date: Pulse: 06/13/2024 94 02/20/2023 59 02/09/2023 78 Last 3 Encounter Wt Readings: Date: Wt: 06/22/2024 63.5 kg (140 lb) 02/09/2023 61.2 kg (135 lb) 01/17/2023 61.2 kg (135 lb) Physical Exam Vitals reviewed. HENT: Head: Normocephalic. Eyes: Pupils: Pupils are equal, round, and reactive to light. Neck: Vascular: No JVD. Cardiovascular: Rate and Rhythm: Normal rate and regular rhythm. Heart sounds: Murmur heard. Systolic murmur is present with a grade of 2/6. Comments: Murmur heard best at the left lower sternal border and apex. Pulmonary: Effort: Pulmonary effort is normal. Breath sounds: Normal breath sounds. Abdominal: General: Bowel sounds are normal. Neurological: General: No focal deficit present. Mental Status: He is alert and oriented to person, place, and time. Medical Decision Making: Problems: Moderate: 2+ stable chronic illnesses Data: Unique test result(s) reviewed: 2 Risk: Low: Low risk from testing/treatment Medical Decision Making Level: 3 - Low et Mickie Graham MD.,F.A.C.C. Staff Corporate Health Consultant Hay Santo Department of Cardiovascular Medicine Heart and Vascular [facility] Cardiology Outpatient Services ([address]ld[address]) [address] [place], [place] [address] Office Office CC: PRIMARY CARE PROVIDER Shaikh [facility] [place] [address] documented in this encounter [facility] 06-25-2024 Note HNO ID: [id number] Author: MICKIE GRAHAM MD Service: ? Author Type: Physician Type: Progress Notes Filed: 06/27/2024 08:39 Note Text: [facility] Heart and Vascular [place] [facility] Department of Cardiovascular Medicine SECTION OF REGIONAL CARDIOLOGY OUTPATIENT VISIT TYPE: NEW CHIEF COMPLAINT: Pre-op clearance Assessment AND Plan Abnormality of right ventricle of heart - Enlarged Severe based on echo and more recently cardiac MRI Severe dysfunction also noted based on echo done in February of this year Unclear etiology Nonrheumatic tricuspid valve regurgitation Conflicting data with echocardiogram in February suggesting moderate to severe regurgitation and cardiac MRI in April only indicating mild regurgitation. Either way suspect this to be secondary to RV dilatation. Depressed left ventricular ejection fraction Conflicting data between echo and MRI with the echo in February showing normal ejection fraction and cardiac MRI showing low normal to mild decrease with an EF of 50% Clinically he is asymptomatic and not in heart failure. Will need follow-up evaluation on future outpatient visits Preoperative cardiovascular examination He had tolerated multiple colon surgeries in [...] a low. He may proceed as planned. 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 No recurrence Arrhythmogenic right ventricular dysplasia (HCC) Suspected based on recent MRI in [place] although inconclusive diagnosis No history of syncope No family history of sudden cardiac This needs to be further investigated however given the severity of his hernia symptoms, it can be done on future follow-up Secondary pulmonary arterial hypertension (HCC) Most recent echocardiogram only showing mild elevation of RVSP at 38 mmHg Tricuspid regurgitation, RV dilatation, and history of provoked single episode of pulmonary embolism all noted. Etiology unclear but significant variability in estimated RVSP noted. Probably needs a repeat echocardiogram in the [facility] system on future follow-up. Elevated blood pressure reading Admits to be very anxious about today's visit since he was concerned about being able to have his hernia fixed Has not had history of hypertension documented in the past. Advised to check his blood pressure at home to keep a log and if average blood pressure is above 130/80 to let us know since this would require initiation of treatment. Perioperatively as needed use of intravenous hydralazine would be acceptable for short-term blood pressure control. In summary Hoang proceed with hernia surgery as planned at low cardiac complication risk. Advised that he will need follow-up with cardiology in the future. A referral to Dr. Marie was placed since he saw him back in 2021 and his practice location is significantly more convenient (patient lives in [facility]) In the meantime he will check his blood pressure at home keeping a log for future follow-up and visits. The above was discussed with the patient in detail and all questions were answered. Thank you for allowing us to participate in the care of this patient and if I can be of any further assistance or if you have any questions or concerns, please do not hesitate to contact me. Mickie Vaca M.D., F.A.C.C. HPI: Mr. Hoang Dorado is a 48 year old male who is here today for preoperative cardiovascular evaluation. He has extensive history spanning multiple systems and to states. He has known history of pulmonary embolism, history of endocarditis, resultant severe RV dilatation and tricuspid regurgitation although reportedly his RV function was intact. He does have history of remote polysubstance abuse. He is a former smoker. History also significant for rectal cancer, ADHD, and hypothyroidism. He has undergone 4 surgeries according to his description since 2021 most recently in January 2023. All surgeries were tolerated very well. Initially he was scheduled to undergo hernia repair in [place] and was seen by [facility] cardiology after the cardiac MRI. Results are noted below and there was suspicion of arrhythmogenic RV dysplasia. There has been no history of syncope and no family history of sudden cardiac . No further cardiac follow-up has been noted since. He lives in [facility] and has since sought surgical opinion through the [facility] system. He is currently scheduled for a lef (more content not included)... [facility] 06-23-2024 Instructions Darío Stratton APRN.[facility] - 06/23/2024 10:22 AM EDT PATIENT PREOPERATIVE INSTRUCTIONS Dexter Elliott has scheduled you for your procedure at this surgery center: [facility]: [phone] --[id number] [address]. Please check in on the 1st floor [...] all of your medications until your surgery. If you start any new medications after today's visit, please contact your surgeon. Pre-Surgery Med Instructions Medication Instructions ibuprofen (MOTRIN) 200 mg tablet Stop 7 days before surgery If you take any medications for erectile dysfunction-Cialis (Tadalafil), Levitra, Staxyn (Vardenafil) Viagra (Sildenenafil please do not take these for 48 hours before surgery. If you start any new medications after today's visit, please contact the surgeon's office. Blood Thinning Medications: - Hold NSAIDS (Ibuprofen, Advil, Aleve, Motrin, Celebrex, Mobic, etc.) 7 days before surgery, as directed by your surgeon. - Hold Aspirin 7 days before surgery, as directed by your surgeon. - Hold all vitamins, fish oil, herbals and dietary supplements 7 days before surgery. - You may take Tylenol (Acetaminophen) or any of your pain medications that do not contain aspirin or NSAIDS as needed. Important Reminders: - If you use CPAP/BIPAP, bring the machine with you to the surgery center. - If you are prescribed inhalers for breathing, continue using them. - Candy, mints, and tobacco products are [...] money at home or with family members. For Outpatient Procedures: - YOU MUST HAVE A RESPONSIBLE CRANE ASSEMBLER TAKE YOU HOME. A MATERIAL PREPARATION WORKER OR MOBILE UI/UX DESIGNER CANNOT BE MADE A RESPONSIBLE CRANE ASSEMBLER. - We recommend that a responsible person stays with you overnight to take care of you. - You cannot stay in a hotel alone after outpatient surgery. You will not be permitted to have your surgery, if you do not have someone to take care of you. Arrival Time for Surgery: - The Surgery [...] Advance Directive, please fax a copy to [phone] or email to for it to be [...] chart that day. documented in this encounter [facility] 06-22-2024 History and physical note Images from the original note were not included. PREANESTHESIA CONSULT CLINIC TELEHEALTH VISIT Patient has been identified by name and date of : Yes Reason for contact: PACC visit Accompanied by: Significant Other This is a virtual visit using [employer] Video Visit. It required patient-provider interaction for the medical decision making as documented below. I have communicated my name and active licensure. The patient's identity and physical location were verified at the time of this visit. Either the patient or their legal appeals representative has been informed of the risks and benefits of and alternatives to treatment through a remote evaluation and consents to proceed with the evaluation remotely. REASON FOR VISIT: Hoang Dorado is a 48 year old male who is scheduled for Left - HERNIORRHAPHY INGUINAL ELECTIVE ADULT REDUCIBLE at the request of Dr. Dexter Elilott for consultation. My final recommendation will be communicated back to the requesting physician by way of shared medical record or letter. My final recommendation will be communicated back to the requesting physician by way of shared medical record or letter. ASSESSMENT: History of intravenous drug abuse (HCC) Assessment: h/o of heroin use, clean since 2016 Attention deficit hyperactivity disorder (ADHD), predominantly hyperactive type Assessment: stable without meds Rectal cancer (HCC) Assessment: resolved. s/p colectomy 2021, reversal of ostomy 2021 with [facility]. DVT (deep venous thrombosis) ([facility]) Assessment: states one instance 10 years ago, completed course of warfarin, no recurrence Hypothyroidism unspecified Assessment: stable with current medication regimen Former smoker Assessment: reports that he quit smoking about 19 months ago. His smoking use included cigarettes. He started smoking about 26 years ago. He has a 12.5 pack-year smoking history. He has never used smokeless tobacco. History of endocarditis Assessment: history of endocarditis over 15 years ago due to IV drug use. No other instance. Severe tricuspid regurgitation Assessment: stable and asymptomatic today. This was a virtual visit, and as such was unable to auscultate. Patient states pulse is regular. Was previously optimized by Dr. Lockett for colectomy in 2021: He should proceed without further diagnostic work-up from a cardiovascular perspective at this time but I will see him closely after resection and decision making on treatment of his colon cancer and proceed in terms of further evaluation/treatment, possibly surgical opinion afterward in 4 months. Unfortunately there was no follow up after GI surgery. Mr. Dorado presently has an inguinal hernia that is causing him a good deal of discomfort. He attempted to have surgery at [facility] but he was declined due to cardiac imaging results. Dr. Chavez at [facility] recommended obtaining Cardiac MRI to assess RV given severe enlargement and severe RV dysfunction He had a meeting with Corporate Health Consultant Dr. Duffy at the [facility] on 05/13/24 to discuss the results of hi 05/01/24 Cardiac MRI: I discussed the patient's case with our autocad designer Dr. An. Dr. An thinks that patient probably will need to repeat cardiac MRI at [facility] for more decisive differentiation if the signal abnormality in the RV free wall is related to fatty infiltration. In the light of semiurgency of the surgery he would like to see him tomorrow in his clinic to discuss further workup and options of management. Unfortunately the patient was unable to see Dr. An as mentioned above. ANESTHESIA FINDINGS: Intubation History: No history of difficult intubation Significant Anesthesia Considerations: None Airway Exam: General: Normal appearance Body mass index is 21.6 kg/m . Mallampati Score is CLASS II ULBT: Class I - Lower incisors can bite the upper lip above the diallo line Neck: Normal appearance and function, Distance from hyoid to mentum during neck extension is at least 3 finger breaths Mouth: Normal tongue size and Mouth opening greater than 2 finger breaths Dentition: upper partial Airway History: No abnormal airway history most recent airway history - 02/20/23 Final Airway Details Final airway type: endotracheal [...] attempts at approach: 1 Airway not difficult 06/21/2024 Sleep Apnea Probability Snores loudly: No Tired, fatigued or sleepy in daytime: Yes Stops breathing or choking/gasping during sleep: No High blood pressure: No Sleep Apnea Probability Score: 22 (Sleep study not recommended) METS: Walk indoors, such as around the house (1.75 METs) Do light work around the house, such as dusting or washing dishes (2.70 METs) Take care of self; that is eating, dressing, bathing, using the toilet (2.75 METs) Walk a block or two on level ground (2.75 METs) Do moderate work around the house such as vacuuming, sweeping floors, or carrying in groceries (3.50 METs) Climb a flight of stairs or walk up a hill (5.50 METs) Do heavy work around the house, such as scrubbing floors, lifting or moving heavy furniture (8.00 METs) Run a short distance (8.00 METs) Patient denies any chest pain or undue shortness of breath with the above physical activity. States works out 1 hour every other day at the gym. Has been limited lately because of hernia, not lung capacity. Prepared for surgery: Reviewing with [facility] anesthesia via EPIC chat based on incomplete cardiac optimization CONSULTS: Patient does not require consults for optimization at this time. The Following Tests/Procedures Have Been Initiated: Labs not indicated per PACC protocol, EKG not indicated per [facility] protocol Planned Anesthetic: Per anesthesia choice Subjective CHIEF COMPLAINT: Unilateral inguinal hernia without obstruction or gangrene, recurrence not specified [K40.90] HPI: Patient is a 48 year old MALE presenting for pre-op evaluation for the above procedure. Patient denies any chest pain, shortness of breath, palpitations, fever/chills, nausea/vomiting, fatigue, or diarrhea. 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 History of Intravenous Drug Abuse Former Smoker Rectal Mass Rectal Cancer (Hcc) Severe Protein-Calorie Malnutrition (Hcc) Malaise and Fatigue Hypothyroidism Unspecified Dvt (Deep Venous Thrombosis) (Hcc) Attention to Ileostomy (Hcc) Attention Deficit Hyperactivity Disorder (Adhd), Predominantly Hyperactive Type PAST MEDICAL HISTORY No date: Adenocarcinoma of colon (HCC) 2004: Endocarditis No date: Hypothyroidism 2021: Mass of colon Comment: referral Dr Jaquez PAST SURGICAL HISTORY 2021: COLONSCOPY SCREENING HIGH RISK 02/21/2022: COLOSTOMY Comment: Laparoscopic Divided End Loop Sigmoid Colostomy No date: EGD 2012: PAST SURGICAL HISTORY OF; Right Comment: inguinal 2019: PAST SURGICAL HISTORY OF Comment: teeth pullled out 11/07/2022: PAST SURGICAL HISTORY OF Comment: colostomy takedown, robotic low anterior resection, flexible sigmoidoscopy, diverting loop ileostomy FAMILY HISTORY Problem Relation Age of Onset Breast Cancer Sister Colon Cancer Maternal Grandfather Social History Tobacco Use Smoking status: Former Current packs/day: 0.00 Average packs/day: 0.5 packs/day for 25.0 years (12.5 ttl pk-yrs) Types: Cigarettes Start date: 10/30/1997 Quit date: 10/30/2022 Years since quittin.6 Smokeless tobacco: Never Tobacco comments: Less than half a pack Vaping Use Vaping status: Never Used Substance Use Topics Alcohol use: Not Currently Comment: 2 drinks/week; heavy in past Drug use: Not Currently Types: IV Comment: Past drug use of orin, since 2016 ALLERGIES No Known Allergies MEDICATIONS: Current Outpatient Medications Medication Sig ibuprofen (MOTRIN) 200 mg tablet Take 200 mg by mouth every 6 hours as needed for pain. loratadine (CLARITIN) 10 mg tablet Take 10 mg by mouth once daily. acetaminophen (TYLENOL) 500 mg tablet Take 2 tablets by mouth every 6 hours. levothyroxine (SYNTHROID) 125 mcg tablet Take 125 mcg by mouth once daily. amphetamine-dextroamphetamine XR (ADDERALL XR) 15 mg capsule Take 1 capsule by mouth once daily for 30 days. lactobacillus rhamnosus (CULTURELLE) 10 billion cell capsule Take 1 capsule by mouth once daily. iv contrast (will [...] Contrast as designated per enteric contrast guidelines No current facility-administered medications for this visit. Covid Immunization Dates Overdue - Covid-19 Vaccine ( season) Never done No completion, postpone, frequency change, or communication history exists for this topic. REVIEW OF SYSTEMS: Pain Assessment: General: No weight loss, malaise or fevers. Neuro: No history of TIA's, stroke, INFORMATION TECHNOLOGY ASSISTANT tumor, impaired sensorium, hemiplegia, paraplegia or quadraplegia. No neurological symptoms or problems. Respiratory: Positive for Tobacco Use former, Negative for No history of current cough or dyspnea, or pneumonia in the past 6 weeks. No history of respiratory/pulmonary symptoms or problems Cardiovascular: Positive for: h/o endocarditis, tricuspid valve regurgitation, h/o DVT, Negative for CAD, Chest Pain, CHF GI: Positive for s/p colectomy 2021 no ostomy, Negative for GERD, Vomiting, Abdominal pain, Difficulty swallowing : No history of dysuria, frequency or incontinence,, stones or chronic kidney disease Endocrine: hypothyroidism Hematology: h/o DVT Oncology: h/o colon cancer Psych: former IV drug user, ADHD Musculoskeletal: Negative for joint pain or swelling, back pain or muscle pain. Skin: Negative for lesions, rash and itching. Objective PHYSICAL EXAM: Resp 16 Ht 5' 7.5 (1.72m) Wt 140 lb (63.5kg) BMI 21.59 kg/(m^2). VIDEO EXAM: (if completed, performed via video enabled technology) GENERAL: alert and appropriate, in no distress, well-hydrated, well nourished, and happy, smiling, interactive SKIN: no rash noted NECK: full ROM, no cervical LNs noted RESPIRATORY: breathing non-labored CHEST: equal chest rise with normal respiratory effort HEART: pulse palpated by patient and felt to be RRR, no cyanosis ABDOMEN: soft and non-tender NEUROLOGIC: no obvious deficit Diagnostic tests reviewed for today's visit: Labs in Care Everywhere from 02/12/24 within acceptable parameters for surgery. Lab Value Units Date High Low HB No results within date range. HCT No results within date range. WBC No results within date range. PLT No results within date range. NA No results within date range. K No results within date range. GLUC No results within date range. BUN No results within date range. CREAT No results within date range. PTSEC No results within date range. INR No results within date range. APTT No results within date range. ALT No results within date range. AST No results within date range. TBILI No results within date range. TSH No results within date range. Lab Value Units Date High Low HCGQT No results within date range. UHCG No results within date range. HCG, BODY* No results within date range. Lab Value Units Date High Low ABORHD No results within date range. ABSCREEN No results within date range. No results found for: HBA1C Most recent EK03/11/24 ECTOPIC ATRIAL RHYTHM INTRAVENTRICULAR CONDUCTION DELAY [130+ ms QRS DURATION] POSSIBLE RIGHT VENTRICULAR HYPERTROPHY [SOME/ALL OF: PROMINENT R IN V1, LATE TRANSITION, RAD, ERICK, SSS] 02/09/23 Diagnosis: NORMAL SINUS RHYTHM RIGHT AXIS DEVIATION NONSPECIFIC INTRAVENTRICULAR CONDUCTION DELAY ABNORMAL ECG TTE 03/22/24 Most recent Echo Recent Results (from the past [id number] hour(s)) ECHO Collection Time: 01/17/22 1:15 PM [...] * * * Final * * * MRI CARDIAC 05/01/24 No abnormal delayed myocardial enhancement identified within the left ventricle. Left ventricular ejection fraction is decreased to low normal at 50.5%. Wall motion appears normal. There is abnormal signal identified within the right ventricular free wall. Findings are concerning for fibrofatty infiltration and possible arrhythmogenic right ventricular dysplasia. There is mild dephasing across the tricuspid valve which could indicate some mild tricuspid regurgitation. Valve leaflets normal Addendum: Phase contrast of the tricuspid valve was conducted. Urgent fraction is 49-50 %. This is consistent with moderate tricuspid regurgitation. His note that this is a more accurate measurement than the visual measurements used on the conventional MR sequences where it was felt that there was mild regurgitation. Instructions Given to Patient: Patient given verbal instructions and voices comprehension and compliance. Copy sent electronically via My Chart. SIGNATURE: Darío Stratton APRN.CNP PATIENT NAME: Hoang Dorado DATE: 06/22/2024 TIME: 10:45am PAGER/CONTACT #: 05/13/[address] Duffy: Reason for cardiology visit: Patient here for follow up cardiac MRI performed 05/01/2024 at [facility] for pre-surgery clearance for left inguinal hernia repair per Dr. Cramer. I discussed the patient's case with our autocad designer Dr. An. Dr. An thinks that patient probably will need to repeat cardiac MRI at [facility] for more decisive differentiation if the signal abnormality in the RV free wall is related to fatty infiltration. In the light of semiurgency of the surgery he would like to see him tomorrow in his clinic to discuss further workup and options of management. I also talked to Dr. Garsia his surgeon who informed me that anesthesia in [facility] would not operate on him locally and he is going to refer him to [facility] surgeon where he can be under the care of cardiology at the same time if proceed with surgery soon. He feels that the surgery should be performed sooner rather than later Leonor Duffy MD, [facility] 03/22/24 Patient adamantly denies any cardiac complaints or concerns. Patient denies any chest pain or shortness of breath. Patient denies any lower extremity edema, orthopnea, or proximal nocturnal dyspnea. No near-syncope or syncope. No dizziness or lightheadedness. He states that he feels excellent and is very active without any limitations. He states that the only reason he knows something is wrong is because of echo report. Hoang Dorado, 1975, [id number], is scheduled for Procedure(s) (LRB): HERNIORRHAPHY INGUINAL ELECTIVE ADULT REDUCIBLE (Left) on 07/03/2024 with Dexter Dominga History significant for former IV drug user (clean since 2016), episode of endocarditis 15 years ago, severe tricuspid regurgitation. Patient had a series of surgeries in 2021 with [facility] to excise rectal cancer. He was optimized by [employer] Dr. Lockett at the point: He should proceed without further diagnostic work-up from a cardiovascular perspective at this time but I will see him closely after resection and decision making on treatment of his colon cancer and proceed in terms of further evaluation/treatment, possibly surgical opinion afterward in 4 months. He understood the risks/benefits and agreed with the plan. Unfortunately there was no follow up after GI surgery. Mr. Dorado presently has an inguinal hernia that is causing him a good deal of discomfort. He attempted to have surgery at [facility] but he was declined due to cardiac imaging results. Dr. Chavez at [facility] recommended obtaining Cardiac MRI to assess RV given severe enlargement and severe RV dysfunction He had a meeting with [facility] [employer] Dr. Duffy at [facility] on 05/13/24 to discuss the results of his 05/01/24 Cardiac MRI in hopes of proceeding at [facility]: I discussed the patient's case with our autocad designer Dr. An. Dr. An thinks that patient probably will need to repeat cardiac MRI at [facility] for more decisive differentiation if the signal abnormality in the RV free wall is related to fatty infiltration. In the light of semiurgency of the surgery he would like to see him tomorrow in his clinic to discuss further workup and options of management. Unfortunately the patient was unable to see Dr. An as mentioned above. I had him in [facility] virtual visit this past Monday. He denies all cardiac symptoms and would like to proceed with surgery at [facility]. At our [facility] he was stable, asymptomatic. Can complete 8.0 METS States works out 1 hour every other day at the gym. Has been limited lately because of hernia, not lung capacity. Breathing comfortably. Am I correct in assuming he needs to see a filler feeder at [facility] prior tot proceeding? (Most recent cardiac testing in next text bubble.) EKG 03/11/24 ECTOPIC ATRIAL RHYTHM INTRAVENTRICULAR CONDUCTION DELAY [130+ ms QRS DURATION] POSSIBLE RIGHT VENTRICULAR HYPERTROPHY [SOME/ALL OF: PROMINENT R IN V1, LATE TRANSITION, RAD, ERICK, SSS] MRI CARDIAC 05/01/24 No abnormal delayed myocardial enhancement identified within the left ventricle. Left ventricular ejection fraction is decreased to low normal at 50.5%. Wall motion appears normal. There is abnormal signal identified within the right ventricular free wall. Findings are concerning for fibrofatty infiltration and possible arrhythmogenic right ventricular dysplasia. There is mild dephasing across the tricuspid valve which could indicate some mild tricuspid regurgitation. Valve leaflets normal Addendum: Phase contrast of the tricuspid valve was conducted. Urgent fraction is 49-50 %. This is consistent with moderate tricuspid regurgitation. His note that this is a more accurate measurement than the visual measurements used on the conventional MR sequences where it was felt that there was mild regurgitation. TTE 03/22/24 (in care everywhere - cannot send images over [employer]) T [facility] 06-22-2024 History and physical note Images from the original note were not included. PREANESTHESIA CONSULT CLINIC TELEHEALTH VISIT Patient has been identified by name and date of : Yes Reason for contact: [facility] visit Accompanied by: Significant Other This is a virtual visit using [employer] Video Visit. It required patient-provider interaction for the medical decision making as documented below. I have communicated my name and active licensure. The patient's identity and physical location were verified at the time of this visit. Either the patient or their legal appeals representative has been informed of the risks and benefits of and alternatives to treatment through a remote evaluation and consents to proceed with the evaluation remotely. REASON FOR VISIT: Hoang Dorado is a 48 year old male who is scheduled for Left - HERNIORRHAPHY INGUINAL ELECTIVE ADULT REDUCIBLE at the request of Dr. Dexter Elliott for consultation. My final recommendation will be communicated back to the requesting physician by way of shared medical record or letter. My final recommendation will be communicated back to the requesting physician by way of shared medical record or letter. ASSESSMENT: History of intravenous drug abuse (HCC) Assessment: h/o of heroin use, clean since 2015 Attention deficit hyperactivity disorder (ADHD), predominantly hyperactive type Assessment: stable without meds Rectal cancer (HCC) Assessment: resolved. s/p colectomy 2021, reversal of ostomy 2021 with [facility]. DVT (deep venous thrombosis) (HCC) Assessment: states one instance 10 years ago, completed course of warfarin, no recurrence Hypothyroidism unspecified Assessment: stable with current medication regimen Former smoker Assessment: reports that he quit smoking about 19 months ago. His smoking use included cigarettes. He started smoking about 26 years ago. He has a 12.5 pack-year smoking history. He has never used smokeless tobacco. History of endocarditis Assessment: history of endocarditis over 15 years ago due to IV drug use. No other instance. Severe tricuspid regurgitation Assessment: stable and asymptomatic today. This was a virtual visit, and as such was unable to auscultate. Patient states pulse is regular. Was previously optimized by Dr. Lockett for colectomy in 2021: He should proceed without further diagnostic work-up from a cardiovascular perspective at this time but I will see him closely after resection and decision making on treatment of his colon cancer and proceed in terms of further evaluation/treatment, possibly surgical opinion afterward in 4 months. Unfortunately there was no follow up after GI surgery. Mr. Dorado presently has an inguinal hernia that is causing him a good deal of discomfort. He attempted to have surgery at [facility] but he was declined due to cardiac imaging results. Dr. Chavez at [facility] recommended obtaining Cardiac MRI to assess RV given severe enlargement and severe RV dysfunction He had a meeting with [facility] Dr. Duffy at the [facility] on 05/13/24 to discuss the results of hi 05/01/24 Cardiac MRI: I discussed the patient's case with our autocad designer Dr. An. Dr. An thinks that patient probably will need to repeat cardiac MRI at [facility] for more decisive differentiation if the signal abnormality in the RV free wall is related to fatty infiltration. In the light of semiurgency of the surgery he would like to see him tomorrow in his clinic to discuss further workup and options of management. Unfortunately the patient was unable to see Dr. An as mentioned above. ANESTHESIA FINDINGS: Intubation History: No history of difficult intubation Significant Anesthesia Considerations: None Airway Exam: General: Normal appearance Body mass index is 21.6 kg/m . Mallampati Score is CLASS II ULBT: Class I - Lower incisors can bite the upper lip above the diallo line Neck: Normal appearance and function, Distance from hyoid to mentum during neck extension is at least 3 finger breaths Mouth: Normal tongue size and Mouth opening greater than 2 finger breaths Dentition: upper partial Airway History: No abnormal airway history most recent airway history - 02/20/23 Final Airway Details Final airway type: endotracheal [...] attempts at approach: 1 Airway not difficult 06/21/2024 Sleep Apnea Probability Snores loudly: No Tired, fatigued or sleepy in daytime: Yes Stops breathing or choking/gasping during sleep: No High blood pressure: No Sleep Apnea Probability Score: 22 (Sleep study not recommended) METS: Walk indoors, such as around the house (1.75 METs) Do light work around the house, such as dusting or washing dishes (2.70 METs) Take care of self; that is eating, dressing, bathing, using the toilet (2.75 METs) Walk a block or two on level ground (2.75 METs) Do moderate work around the house such as vacuuming, sweeping floors, or carrying in groceries (3.50 METs) Climb a flight of stairs or walk up a hill (5.50 METs) Do heavy work around the house, such as scrubbing floors, lifting or moving heavy furniture (8.00 METs) Run a short distance (8.00 METs) Patient denies any chest pain or undue shortness of breath with the above physical activity. States works out 1 hour every other day at the gym. Has been limited lately because of hernia, not lung capacity. Prepared for surgery: Reviewing with [facility] anesthesia via EPIC chat based on incomplete cardiac optimization CONSULTS: Patient does not require consults for optimization at this time. The Following Tests/Procedures Have Been Initiated: Labs not indicated per [facility] protocol, EKG not indicated per [facility] protocol Planned Anesthetic: Per anesthesia choice Subjective CHIEF COMPLAINT: Unilateral inguinal hernia without obstruction or gangrene, recurrence not specified [K40.90] HPI: Patient is a 48 year old MALE presenting for pre-op evaluation for the above procedure. Patient denies any chest pain, shortness of breath, palpitations, fever/chills, nausea/vomiting, fatigue, or diarrhea. 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 History of Intravenous Drug Abuse Former Smoker Rectal Mass Rectal Cancer (Hcc) Severe Protein-Calorie Malnutrition (Hcc) Malaise and Fatigue Hypothyroidism Unspecified Dvt (Deep Venous Thrombosis) (Hcc) Attention to Ileostomy (Hcc) Attention Deficit Hyperactivity Disorder (Adhd), Predominantly Hyperactive Type PAST MEDICAL HISTORY No date: Adenocarcinoma of colon (HCC) 2004: Endocarditis No date: Hypothyroidism 2021: Mass of colon Comment: referral Dr Jaquez PAST SURGICAL HISTORY 2021: COLONSCOPY SCREENING HIGH RISK 02/21/2022: COLOSTOMY Comment: Laparoscopic Divided End Loop Sigmoid Colostomy No date: EGD 2012: PAST SURGICAL HISTORY OF; Right Comment: inguinal 2019: PAST SURGICAL HISTORY OF Comment: teeth pullled out 11/07/2022: PAST SURGICAL HISTORY OF Comment: colostomy takedown, robotic low anterior resection, flexible sigmoidoscopy, diverting loop ileostomy FAMILY HISTORY Problem Relation Age of Onset Breast Cancer Sister Colon Cancer Maternal Grandfather Social History Tobacco Use Smoking status: Former Current packs/day: 0.00 Average packs/day: 0.5 packs/day for 25.0 years (12.5 ttl pk-yrs) Types: Cigarettes Start date: 10/30/1997 Quit date: 10/30/2022 Years since quittin.6 Smokeless tobacco: Never Tobacco comments: Less than half a pack Vaping Use Vaping status: Never Used Substance Use Topics Alcohol use: Not Currently Comment: 2 drinks/week; heavy in past Drug use: Not Currently Types: IV Comment: Past drug use of herorin, since 2015 ALLERGIES No Known Allergies MEDICATIONS: Current Outpatient Medications Medication Sig ibuprofen (MOTRIN) 200 mg tablet Take 200 mg by mouth every 6 hours as needed for pain. loratadine (CLARITIN) 10 mg tablet Take 10 mg by mouth once daily. acetaminophen (TYLENOL) 500 mg tablet Take 2 tablets by mouth every 6 hours. levothyroxine (SYNTHROID) 125 mcg tablet Take 125 mcg by mouth once daily. amphetamine-dextroamphetamine XR (ADDERALL XR) 15 mg capsule Take 1 capsule by mouth once daily for 30 days. lactobacillus rhamnosus (CULTURELLE) 10 billion cell capsule Take 1 capsule by mouth once daily. iv contrast (will [...] Contrast as designated per enteric contrast guidelines No current facility-administered medications for this visit. Covid Immunization Dates Overdue - Covid-19 Vaccine ( season) Never done No completion, postpone, frequency change, or communication history exists for this topic. REVIEW OF SYSTEMS: Pain Assessment: General: No weight loss, malaise or fevers. Neuro: No history of TIA's, stroke, INFORMATION TECHNOLOGY ASSISTANT tumor, impaired sensorium, hemiplegia, paraplegia or quadraplegia. No neurological symptoms or problems. Respiratory: Positive for Tobacco Use former, Negative for No history of current cough or dyspnea, or pneumonia in the past 6 weeks. No history of respiratory/pulmonary symptoms or problems Cardiovascular: Positive for: h/o endocarditis, tricuspid valve regurgitation, h/o DVT, Negative for CAD, Chest Pain, CHF GI: Positive for s/p colectomy 2021 no ostomy, Negative for GERD, Vomiting, Abdominal pain, Difficulty swallowing : No history of dysuria, frequency or incontinence,, stones or chronic kidney disease Endocrine: hypothyroidism Hematology: h/o DVT Oncology: h/o colon cancer Psych: former IV drug user, ADHD Musculoskeletal: Negative for joint pain or swelling, back pain or muscle pain. Skin: Negative for lesions, rash and itching. Objective PHYSICAL EXAM: Resp 16 Ht 5' 7.5 (1.72m) Wt 140 lb (63.5kg) BMI 21.59 kg/(m^2). VIDEO EXAM: (if completed, performed via video enabled technology) GENERAL: alert and appropriate, in no distress, well-hydrated, well nourished, and happy, smiling, interactive SKIN: no rash noted NECK: full ROM, no cervical LNs noted RESPIRATORY: breathing non-labored CHEST: equal chest rise with normal respiratory effort HEART: pulse palpated by patient and felt to be RRR, no cyanosis ABDOMEN: soft and non-tender NEUROLOGIC: no obvious deficit Diagnostic tests reviewed for today's visit: Labs in Care Everywhere from 02/12/24 within acceptable parameters for surgery. Lab Value Units Date High Low HB No results within date range. HCT No results within date range. WBC No results within date range. PLT No results within date range. NA No results within date range. K No results within date range. GLUC No results within date range. BUN No results within date range. CREAT No results within date range. PTSEC No results within date range. INR No results within date range. APTT No results within date range. ALT No results within date range. AST No results within date range. TBILI No results within date range. TSH No results within date range. Lab Value Units Date High Low HCGQT No results within date range. UHCG No results within date range. HCG, BODY* No results within date range. Lab Value Units Date High Low ABORHD No results within date range. ABSCREEN No results within date range. No results found for: HBA1C Most recent EK03/11/24 ECTOPIC ATRIAL RHYTHM INTRAVENTRICULAR CONDUCTION DELAY [130+ ms QRS DURATION] POSSIBLE RIGHT VENTRICULAR HYPERTROPHY [SOME/ALL OF: PROMINENT R IN V1, LATE TRANSITION, RAD, ERICK, SSS] 02/09/23 Diagnosis: NORMAL SINUS RHYTHM RIGHT AXIS DEVIATION NONSPECIFIC INTRAVENTRICULAR CONDUCTION DELAY ABNORMAL ECG TTE 03/22/24 Most recent Echo Recent Results (from the past [id number] hour(s)) ECHO Collection Time: 01/17/22 1:15 PM [...] * * * Final * * * MRI CARDIAC 05/01/24 No abnormal delayed myocardial enhancement identified within the left ventricle. Left ventricular ejection fraction is decreased to low normal at 50.5%. Wall motion appears normal. There is abnormal signal identified within the right ventricular free wall. Findings are concerning for fibrofatty infiltration and possible arrhythmogenic right ventricular dysplasia. There is mild dephasing across the tricuspid valve which could indicate some mild tricuspid regurgitation. Valve leaflets normal Addendum: Phase contrast of the tricuspid valve was conducted. Urgent fraction is 49-50 %. This is consistent with moderate tricuspid regurgitation. His note that this is a more accurate measurement than the visual measurements used on the conventional MR sequences where it was felt that there was mild regurgitation. Instructions Given to Patient: Patient given verbal instructions and voices comprehension and compliance. Copy sent electronically via My Chart. SIGNATURE: Darío Stratton APRN.CNP PATIENT NAME: Hoang Dorado DATE: 06/22/2024 TIME: 10:45am PAGER/CONTACT #: 05/13/[address] Duffy: Reason for cardiology visit: Patient here for follow up cardiac MRI performed 05/01/2024 at [facility] for pre-surgery clearance for left inguinal hernia repair per Dr. Cramer. I discussed the patient's case with our autocad designer Dr. An. Dr. An thinks that patient probably will need to repeat cardiac MRI at [facility] for more decisive differentiation if the signal abnormality in the RV free wall is related to fatty infiltration. In the light of semiurgency of the surgery he would like to see him tomorrow in his clinic to discuss further workup and options of management. I also talked to Dr. Garsia his surgeon who informed me that anesthesia in [facility] would not operate on him locally and he is going to refer him to [facility] surgeon where he can be under the care of cardiology at the same time if proceed with surgery soon. He feels that the surgery should be performed sooner rather than later Leonor Duffy MD, [facility] 03/22/24 Patient adamantly denies any cardiac complaints or concerns. Patient denies any chest pain or shortness of breath. Patient denies any lower extremity edema, orthopnea, or proximal nocturnal dyspnea. No near-syncope or syncope. No dizziness or lightheadedness. He states that he feels excellent and is very active without any limitations. He states that the only reason he knows something is wrong is because of echo report. Hoang Dorado, 1975, [id number], is scheduled for Procedure(s) (LRB): HERNIORRHAPHY INGUINAL ELECTIVE ADULT REDUCIBLE (Left) on 07/03/2024 with Dexter Elliott History significant for former IV drug user (clean since 2015), episode of endocarditis 15 years ago, severe tricuspid regurgitation. Patient had a series of surgeries in 2021 with [facility] to excise rectal cancer. He was optimized by [employer] Dr. Lockett at the point: He should proceed without further diagnostic work-up from a cardiovascular perspective at this time but I will see him closely after resection and decision making on treatment of his colon cancer and proceed in terms of further evaluation/treatment, possibly surgical opinion afterward in 4 months. He understood the risks/benefits and agreed with the plan. Unfortunately there was no follow up after GI surgery. Mr. Dorado presently has an inguinal hernia that is causing him a good deal of discomfort. He attempted to have surgery at [facility] but he was declined due to cardiac imaging results. Dr. Chavez at [facility] recommended obtaining Cardiac MRI to assess RV given severe enlargement and severe RV dysfunction He had a meeting with [facility] [employer] Dr. Duffy at [facility] on 05/13/24 to discuss the results of his 05/01/24 Cardiac MRI in hopes of proceeding at [facility]: I discussed the patient's case with our autocad designer Dr. An. Dr. An thinks that patient probably will need to repeat cardiac MRI at [facility] for more decisive differentiation if the signal abnormality in the RV free wall is related to fatty infiltration. In the light of semiurgency of the surgery he would like to see him tomorrow in his clinic to discuss further workup and options of management. Unfortunately the patient was unable to see Dr. An as mentioned above. I had him in [facility] virtual visit this past Monday. He denies all cardiac symptoms and would like to proceed with surgery at [facility]. At our [facility] he was stable, asymptomatic. Can complete 8.0 METS States works out 1 hour every other day at the gym. Has been limited lately because of hernia, not lung capacity. Breathing comfortably. Am I correct in assuming he needs to see a filler feeder at [facility] prior tot proceeding? (Most recent cardiac testing in next text bubble.) EKG 03/11/24 ECTOPIC ATRIAL RHYTHM INTRAVENTRICULAR CONDUCTION DELAY [130+ ms QRS DURATION] POSSIBLE RIGHT VENTRICULAR HYPERTROPHY [SOME/ALL OF: PROMINENT R IN V1, LATE TRANSITION, RAD, ERICK, SSS] MRI CARDIAC 05/01/24 No abnormal delayed myocardial enhancement identified within the left ventricle. Left ventricular ejection fraction is decreased to low normal at 50.5%. Wall motion appears normal. There is abnormal signal identified within the right ventricular free wall. Findings are concerning for fibrofatty infiltration and possible arrhythmogenic right ventricular dysplasia. There is mild dephasing across the tricuspid valve which could indicate some mild tricuspid regurgitation. Valve leaflets normal Addendum: Phase contrast of the tricuspid valve was conducted. Urgent fraction is 49-50 %. This is consistent with moderate tricuspid regurgitation. His note that this is a more accurate measurement than the visual measurements used on the conventional MR sequences where it was felt that there was mild regurgitation. TTE 03/22/24 (in care everywhere - cannot send images over [employer] CHAT) documented in this encounter [facility] 06-13-2024 Note HNO ID: [id number] Author: CARRILLO LIN RN Service: ? Author Type: Registered Nurse Type: Progress Notes Filed: 06/13/2024 11:37 Note Text: FMLA/STD needed: Yes AMBULATORY PATIENT EDUCATION NOTE PRE-OP TEACHING PROCEDURE: open left inguinal hernia repair with mesh READINESS TO LEARN COGNITIVE ABILITY: Alert and oriented MOTIVATION TO LEARN: Interested FAMILY SUPPORT: High - Very involved in pt care INSTRUCTION PROVIDED TO: Patient and Significant Other PATIENT LEARNS BEST BY: Multiple Methods FACTORS AFFECTING LEARNING: None PHYSICAL LIMITATIONS AFFECTING LEARNING: None LEARNING RESPONSE DIAGNOSIS: left inguinal hernia METHOD OF INSTRUCTION: Individual instruction Written instruction - handouts Verbal instruction PATIENT / FAMILY RESPONSE: Verbalizes understanding of: PAIN MANAGEMENT-Effective strategies to manage pain in addition to pain medication PHYSICAL RESTRICTIONS-Physical restrictions and recommendations after discharge from the hospital POST-OPERATIVE INSTRUCTIONS-Correct actions to take to reduce postoperative complications PRE-OPERATIVE INSTRUCTIONS-Correct action to take to follow pre-operative instructions SYMPTOM MANAGEMENT-Correct actions to take to manage symptoms associated with his/her disease/illness WORSENING CONDITION-Signs and symptoms of a worsening condition that warrant a call to the physician WOUND CARE-Correct procedure to perform wound care DIET- Post op diet OTHER PRE-OP INSTRUCTIONS: FOLLOW-UP PLAN: Complete - No need for follow-up Patient instructed to call with any further issues Contact information given. SUPPLEMENTAL MATERIAL: - Pre Op Instructions Handout - PACC Brochure - Inguinal hernia Overview Handout - Post Op Instructions Handout - [facility] post op pain control hand out REFERRAL (RECOMMENDATION): None Electronically Signed By: Carrillo Lin RN In Department: GENERAL SURGERY [facility] 06-13-2024 History of Present illness Narrative FMLA/STD needed: Yes AMBULATORY PATIENT EDUCATION NOTE PRE-OP TEACHING PROCEDURE: open left inguinal hernia repair with mesh READINESS TO LEARN COGNITIVE ABILITY: Alert and oriented MOTIVATION TO LEARN: Interested FAMILY SUPPORT: High - Very involved in pt care INSTRUCTION PROVIDED TO: Patient and Significant Other PATIENT LEARNS BEST BY: Multiple Methods FACTORS AFFECTING LEARNING: None PHYSICAL LIMITATIONS AFFECTING LEARNING: None LEARNING RESPONSE DIAGNOSIS: left inguinal hernia METHOD OF INSTRUCTION: Individual instruction Written instruction - handouts Verbal instruction PATIENT / FAMILY RESPONSE: Verbalizes understanding of: PAIN MANAGEMENT-Effective strategies to manage pain in addition to pain medication PHYSICAL RESTRICTIONS-Physical restrictions and recommendations after discharge from the hospital POST-OPERATIVE INSTRUCTIONS-Correct actions to take to reduce postoperative complications PRE-OPERATIVE INSTRUCTIONS-Correct action to take to follow pre-operative instructions SYMPTOM MANAGEMENT-Correct actions to take to manage symptoms associated with his/her disease/illness WORSENING CONDITION-Signs and symptoms of a worsening condition that warrant a call to the physician WOUND CARE-Correct procedure to perform wound care DIET- Post op diet OTHER PRE-OP INSTRUCTIONS: FOLLOW-UP PLAN: Complete - No need for follow-up Patient instructed to call with any further issues Contact information given. SUPPLEMENTAL MATERIAL: - Pre Op Instructions Handout - PACC Brochure - Inguinal hernia Overview Handout - Post Op Instructions Handout - [facility] post op pain control hand out REFERRAL (RECOMMENDATION): None Electronically Signed By: Carrillo Lin RN In Department: GENERAL SURGERY documented in this encounter [facility] 06-13-2024 Nurse Note What is the reason for your visit today? JOSEPH Cornejo Who is your referring physician? Are you having poor oral intake? YES Have you had unintentional weight loss of 15 lbs/7 Kg in the last 3-6 months? YES Bowels: not regular Wound: Temperature: No Drains: No [facility] 06-13-2024 Nurse Note What is the reason for your visit today? JOSEPH Cornejo Who is your referring physician? Are you having poor oral intake? YES Have you had unintentional weight loss of 15 lbs/7 Kg in the last 3-6 months? YES Bowels: not regular Wound: Temperature: No Drains: No documented in this encounter [facility] 06-13-2024 History of Present illness Narrative HISTORY AND PHYSICAL [facility] Ab[facility] Chief Complaint: left inguinal hernia HPI: Hoang Dorado is a 48 year old male with a history of ADHD, DVT, rectal cancer, former smoker, IV drug use, endocarditis, hypothyroid who presents for evaluation of a left inguinal hernia. Patient was seen by his PCP, Dr. Adam 05/13/24 with complaints of a few weeks of pain and swelling in his left groin. On exam he is noted as having a left inguinal hernia. He was referred for surgical evaluation. He first started to notice this 6 months ago. This causing a fair bit of discomfort. This is exacerbated by prolonged sitting or standing. This is relieved by laying flat. He has been trying not to let it limit his activity. This is always reducible but he reports that his pain is severe and he wants it fixed as soon as possible. Relevant previous operations include: - right inguinal hernia repair ~20 years ago -10/30/2013 abdominal hernia repair -02/21/2022 Laparoscopic Divided End Loop Sigmoid Colostomy (Ana Enriquez MD) -11/07/2022 Colostomy Takedown, Robotic Assisted Laparoscopic Proctosigmoidectomy (Low Anterior Resection) with Colorectal Anastomosis and Diverting Loop Ileostomy, Flexible Sigmoidoscopy (Ana Enriquez MD) - attention to ileostomy (Ana Enriquez MD) Chronic Opioid Use, Provider prescribed >90 days Other substance use Independent Heavy or very physical labor Unknown No Significant Comorbidities N/A PAST MEDICAL HISTORY Diagnosis Date Adenocarcinoma of [...] anterior resection, flexible sigmoidoscopy, diverting loop ileostomy Social History Tobacco Use Smoking status: Former Packs/day: 0.50 Years: 25.00 Additional pack years: 0.00 Total pack years: 12.50 Types: Cigarettes Quit date: 10/30/2022 Years since quittin.5 Smokeless tobacco: Never Tobacco comments: Less than half a pack Vaping Use Vaping Use: Never used Substance Use Topics Alcohol use: Not Currently Comment: 2 drinks/week; heavy in past Drug use: Not Currently Types: IV Comment: Past drug use of herorin Additional social history not relevant to the patient's HPI FAMILY HISTORY Problem Relation Age of Onset Breast Cancer Sister Colon Cancer Maternal Grandfather Additional family history not relevant to the patient's HPI ALLERGIES No Known Allergies Current Outpatient Medications Medication Sig Dispense Refill lactobacillus rhamnosus (CULTURELLE) 10 billion cell capsule Take 1 capsule by mouth once daily. 30 capsule 0 cyclobenzaprine (FLEXERIL) 5 mg tablet Take 1 tablet by mouth three times daily. 20 tablet 0 ibuprofen (MOTRIN) 400 mg tablet Take 1 tablet by mouth every 8 hours. 20 tablet 0 buPROPion XL (WELLBUTRIN XL) 300 mg 24 hr tablet TAKE 1 TABLET BY MOUTH DAILY (TAKE 150mg DAILY FOR 5 DAYS then INCREASE to 300 mg DAILY) 30 tablet 2 ibuprofen (MOTRIN) 200 mg tablet Take 200 mg by mouth every 6 hours as needed for pain. buprenorphine-naloxone (SUBOXONE) 8-2 mg film DISSOLVE 2 (TWO) films UNDER THE TONGUE DAILY iv contrast (will be provided with radiology [...] per enteric contrast guidelines 1 Each 0 prochlorperazine (COMPAZINE) 10 mg tablet Take [...] Take 125 mcg by mouth once daily. No current facility-administered medications for this visit. Review of Systems: See above 06/13/24 1009 BP: 152/93 BP Site: Left Arm BP Position: Sitting BP Cuff Size: Regular Adult Pulse: 94 Temp: 36.3 C (97.3 F) SpO2: 98% Physical Exam: Constitutional: The patient is well-developed, well-nourished, uncomfortable-appearing. He did pace around the room during the encounter related to pain. Head: Normocephalic and atraumatic. Eyes: No scleral icterus Cardiovascular: RRR Pulmonary/Chest: Non-labored respirations on RA. Abdominal: Soft, non-distended, and quite tender in the left groin where there is an obvious hernia. No bulge on the right with/without valsalva with well-healed overlying scar. Exam on the left limited by pain. LABS: No results found for: HBA1C Imaging: Reviewed with the patient 02/26/2024 - CT Abd/Pel: IMPRESSION: 1. Small left inguinal hernia containing a short segment of small bowel; no obstruction or inflammatory changes. Report reviewed, no images available at the time of our appointment. Assessment: Hoang Dorado is a 48 year old male former smoker with a history of ADHD, DVT, rectal cancer s/p LAR, IV drug use currently on Suboxone, endocarditis, and hypothyroidism who presents for evaluation of a left inguinal hernia. This is quite painful for the patient and he would like to proceed with repair. Given his multiple prior abdominal operations and former ostomy site just above the left groin, I recommend proceeding with an open repair. The risks, benefits, and alternatives to open inguinal hernia repair were discussed with the patient including the risk of bleeding, infection, damage to the vas deferens or spermatic vessels, nerve injury, chronic groin pain, and recurrence. All patient questions were answered to their satisfaction. Written consent was obtained and can be found under the Consent tab in Epic. Plan: -Consented for open left inguinal hernia repair with mesh. Dexter Elliott MD 06/13/24, 1:07 PM General Surgery [facility] Medical Decision Making: Problems: Low: Acute, uncomplicated illness or injury Data: Unique source(s) for external note(s) reviewed: 2 Unique test result(s) reviewed: 1 Risk: Low: Low risk from testing/treatment Medical Decision Making Level: 3 - Low documented in this encounter [facility] 06-13-2024 Note HNO ID: [id number] Author: DEXTER ELLIOTT MD Service: ? Author Type: Physician Type: Progress Notes Filed: 06/13/2024 13:09 Note Text: HISTORY AND PHYSICAL [facility] Abdominal [facility] Chief Complaint: left inguinal hernia HPI: Hoang Dorado is a 48 year old male with a history of ADHD, DVT, rectal cancer, former smoker, IV drug use, endocarditis, hypothyroid who presents for evaluation of a left inguinal hernia. Patient was seen by his PCP, Dr. Adam 05/13/24 with complaints of a few weeks of pain and swelling in his left groin. On exam he is noted as having a left inguinal hernia. He was referred for surgical evaluation. He first started to notice this 6 months ago. This causing a fair bit of discomfort. This is exacerbated by prolonged sitting or standing. This is relieved by laying flat. He has been trying not to let it limit his activity. This is always reducible but he reports that his pain is severe and he wants it fixed as soon as possible. Relevant previous operations include: - right inguinal hernia repair ~20 years ago -10/30/2013 abdominal hernia repair -02/21/2022 Laparoscopic Divided End Loop Sigmoid Colostomy (Ana Enriquez MD) -11/07/2022 Colostomy Takedown, Robotic Assisted Laparoscopic Proctosigmoidectomy (Low Anterior Resection) with Colorectal Anastomosis and Diverting Loop Ileostomy, Flexible Sigmoidoscopy (Ana Enriquez MD) - attention to ileostomy (Ana Enriquez MD) Chronic Opioid Use, Provider prescribed >90 days Other substance use Independent Heavy or very physical labor Unknown No Significant Comorbidities N/A PAST MEDICAL HISTORY Diagnosis Date Adenocarcinoma of [...] anterior resection, flexible sigmoidoscopy, diverting loop ileostomy Social History Tobacco Use Smoking status: Former Packs/day: 0.50 Years: 25.00 Additional pack years: 0.00 Total pack years: 12.50 Types: Cigarettes Quit date: 10/30/2022 Years since quittin.5 Smokeless tobacco: Never Tobacco comments: Less than half a pack Vaping Use Vaping Use: Never used Substance Use Topics Alcohol use: Not Currently Comment: 2 drinks/week; heavy in past Drug use: Not Currently Types: IV Comment: Past drug use of herorin Additional social history not relevant to the patient's HPI FAMILY HISTORY Problem Relation Age of Onset Breast Cancer Sister Colon Cancer Maternal Grandfather Additional family history not relevant to the patient's HPI ALLERGIES No Known Allergies Current Outpatient Medications Medication Sig Dispense Refill lactobacillus rhamnosus (CULTURELLE) 10 billion cell capsule Take 1 capsule by mouth once daily. 30 capsule 0 cyclobenzaprine (FLEXERIL) 5 mg tablet Take 1 tablet by mouth three times daily. 20 tablet 0 ibuprofen (MOTRIN) 400 mg tablet Take 1 tablet by mouth every 8 hours. 20 tablet 0 buPROPion XL (WELLBUTRIN XL) 300 mg 24 hr tablet TAKE 1 TABLET BY MOUTH DAILY (TAKE 150mg DAILY FOR 5 DAYS then INCREASE to 300 mg DAILY) 30 tablet 2 ibuprofen (MOTRIN) 200 mg tablet Take 200 mg by mouth every 6 hours as needed for pain. buprenorphine-naloxone (SUBOXONE) 8-2 mg film DISSOLVE 2 (TWO) films UNDER THE TONGUE DAILY iv contrast (will be provided with radiology [...] per enteric contrast guidelines 1 Each 0 prochlorperazine (COMPAZINE) 10 mg tablet Take [...] acetaminophen (TYLENOL) 500 mg tablet Take 2 t (more content not included)... [facility] 06-13-2024 Note Education ([facility]) HOANG DORADO ([id number]) 1975 M Date Time Provider Department 06/13/[address] [facility] Reason for Visit: Education Of Patient/family [[id number]] During your visit today, we recorded the following information about you: Allergies As of Date: 06/13/2024 (No Known Allergies) Date Reviewed: 06/13/2024 Reviewed by: Esha Leos [facility] - Fully Assessed Prescriptions as of 06/13/2024 - lactobacillus rhamnosus (CULTURELLE) 10 billion cell [...] Take 125 mcg by mouth once daily. Encounter Status:Closed by CARRILLO LIN on 06/13/24 [facility] 06-06-2024 Note On 05/14/24 I receive d a referral from Dr. Abby Garsia to Dr. Mckinley Garsia to see this pt for a left inguinal hernia. I called and left voice mail messages for pt to call to schedule on 05/14/24, 05/15/24 and 05/23/24 and pt never returned my call. [facility] 05-13-2024 Note [facility] Note Reason for cardiology visit: Patient here for follow up cardiac MRI performed 05/01/2024 at [facility] for pre-surgery clearance for left inguinal hernia repair per Dr. Cramer. Chief Complaint: Cardiac complaint. He complains of left groin pain due to inguinal hernia HPI: Hoang Dorado is a 48 y.o. male for follow-up visit after he underwent cardiac MRI in [facility] to evaluate right ventricle which appeared significantly dilated in association with severe tricuspid rotation on echo. Patient denies any cardiac symptoms. He denies any chest pain or shortness of breath at rest or with exertion. He denies any dizziness or syncope or near syncope recently or in the past. He denies orthopnea or paroxysmal nocturnal dyspnea or palpitations or legs edema or legs comfort on exertion. His only complaint is persistent pain at the left groin area with significant protrusion of his bowel loops. He would like to go for surgical repair as soon as possible. I spoke with his surgeon Dr. Garsia who told me that anesthesia will not operate on him in [facility] because of the abnormality noted on cardiac MRI. He informed me that he is going to refer him to surgeon at [facility] as soon as possible Cardiology ROS: Review of Systems Gastrointestinal: Positive for abdominal pain. All other systems reviewed and are negative. Past Medical History He has a past medical history of Abnormal ECG, Cancer (CMS/HCC), Heart valve disease, and Hyperlipidemia. Surgical History He has a past surgical history that includes Colon surgery and Hernia repair. Social History He reports that he has quit smoking. His smoking use included cigarettes. He has never used smokeless tobacco. He reports that he does not currently use alcohol. No history on file for drug use. Family History Family History Problem Relation Name Age of Onset No Known Problems Mother No Known Problems Father Allergies Patient has no known allergies. Medications Current Outpatient Medications: amphetamine-dextroamphetamine XR (Adderall XR) 15 mg 24 hr capsule, Take 15 mg by mouth in the morning., Disp: , Rfl: buprenorphine-naloxone (Suboxone) 8-2 mg SL film, Place 0.5 Film under the tongue in the morning., Disp: , Rfl: levothyroxine (Synthroid, Levoxyl) 137 mcg tablet, Take 137 mcg by mouth in the morning., Disp: , Rfl: Last Recorded Vitals Visit Vitals BP (!) 138/98 (BP Location: Right arm, Patient Position: Sitting) Pulse 79 Ht 1.727 m (5' 8 ) Wt 57.6 kg (127 lb) SpO2 98% BMI 19.31 kg/m??? Smoking Status Former BSA 1.66 m??? Physical Examination: GENERAL: alert and oriented x3, well developed, in no acute distress. HEAD: atraumatic, normocephalic. EYES: KIANA, EOMI. NECK: trachea midline, no JVD present, no carotid bruits present. CARDIAC: S1, S2 present. RRR. Systolic murmur 2-3/6 at the left lower sternal border RESPIRATORY: CTAB, no increased effort of breathing, no rales, rhonchi, or wheezing. ABDOMEN: soft, nontender, nondistended. Left inguinal hernia EXTREMITIES: no lower extremity edema, No rash/skin discoloration present. NEURO: strength/sensation equal and symmetric in bilateral upper and lower extremities. PSYCH: appropriate mood, affect, and judgement. Labs: Last Images: EKG 03/11/2024 atrial rhythm with a right axis deviation and right ventricle conduction delay could represent right ventricle hypertrophy Echo 03/04/2024 at [facility] Echo 01/17/2022 at [facility] CONCLUSIONS: - Exam indication: Murmur - The left ventricle is normal in size. Left ventricular systolic function is normal. EF = 60 ??? 5% (2D biplane) Normal left ventricular diastolic [...] a prior CC echocardiographic exam for comparison. CARDIAC MORPHOLOGY AND FUNCTION W AND WO IV CONTRAST 05/01/2024 10:09 AM SIGNS AND SYMPTOMS: Abnormal EKG TECHNOLOGIST COMMENTS: QUESTION FOR THE RADIOLOGIST: PROTOCOL: Multiplanar T1 and T2-weighted MR imaging conducted. This includes bright blood steady-state free precession images. Black blood images and delayed myocardial enhancement images. T1 and T2 mapping conducted. Gadoterate meglumine 0.5 mmol/mL contrast injection 40 mL COMPARISON: No prior FINDINGS: Morphology: Left ventricular end-diastolic diameter:43.5 mm Anteroseptal wall thickness:1 cm (more content not included)... [facility] 03-22-2024 Note [facility] Note HPI: Hoang Dorado is a 48 y.o. male with a past medical history including DVT/PE, severe tricuspid regurgitation who was referred to Cardiology clinic for evaluation of due to abnormal EKG/echo during periop evaluation. Patient was noted to have severe TR and RV enlargement many years ago, as per his report. Per outside documentation, he had simiar findings on echo in 2021, but no evidence of additional testing. Patient adamantly denies any cardiac complaints or concerns. Patient denies any chest pain or shortness of breath. Patient denies any lower extremity edema, orthopnea, or proximal nocturnal dyspnea. No near-syncope or syncope. No dizziness or lightheadedness. He states that he feels excellent and is very active without any limitations. He states that the only reason he knows something is wrong is because of echo report. Patient denies any previous history of CVA, PVD, DM, HTN, Depressed LVEF, and CAD. Cardiology ROS: 10 point ROS is performed and is negative unless otherwise specified Past Medical History He has a past medical history of Abnormal ECG, Cancer (CMS/HCC), Heart valve disease, and Hyperlipidemia. Surgical History He has a past surgical history that includes Colon surgery and Hernia repair. Social History He reports that he has quit smoking. His smoking use included cigarettes. He has never used smokeless tobacco. He reports that he does not currently use alcohol. No history on file for drug use. Family History Family History Problem Relation Name Age of Onset No Known Problems Mother No Known Problems Father Medications Current Outpatient Medications on File Prior to Visit Medication Sig Dispense Refill amphetamine-dextroamphetamine XR (Adderall XR) 15 mg 24 hr capsule Take 15 mg by mouth in the morning. buprenorphine-naloxone (Suboxone) 8-[address] 0.5 Film under the tongue in the morning. levothyroxine (Synthroid, Levoxyl) 137 mcg tablet Take 137 mcg by mouth in the morning. No current facility-administered medications on file prior to visit. Allergies Patient has no known allergies. Physical Exam VITAL SIGNS: BP 140/82 (BP Location: Right arm, Patient Position: Sitting) Pulse 76 Ht 1.727 m (5' 8 ) Wt 58.1 kg (128 lb) SpO2 97% BMI 19.46 kg/m??? Constitutional: Well developed, Well nourished, No acute distress, Non-toxic appearance. HENT: Normocephalic, Atraumatic, Bilateral external ears have normal appearance, Nose appears normal, nares are patent. Eyes: PERRLA, EOMI, Conjunctiva normal, No discharge. Neck: Normal range of motion, No tenderness, Supple, No stridor. No cervical lymphadenopathy noted. Cardiovascular: Normal heart rate, Normal rhythm, No murmurs, No rubs, No gallops. Thorax & Lungs: Normal breath sounds, No respiratory distress, No wheezing, No chest tenderness to palpation. Abdomen: Bowel sounds normal, Soft, Nontender, No masses, No pulsatile masses. Skin: Warm, Dry, No erythema, No rash. Back: No tenderness, No CVA tenderness. Extremities: Intact distal pulses, No edema, No tenderness, No cyanosis, No clubbing. Musculoskeletal: Grossly normal strength in extremities Neurologic: Alert & oriented x 3, no gross focal neurological deficits Psychiatric: Affect normal, Judgment normal, Mood normal. EKG results: No results found for this or any previous visit (from the past 4464 hour(s)). Echo results: No echocardiogram results found for the past 12 months Radiology: No image results found. Impression: -Abnormal EKG -severe TR -Severe RV enlargement with severe RV dysfunction -Periop risk stratification Plan: -Recommend obtaining Cardiac MRI to assess RV given severe enlargement and severe RV dysfunction -No cardiac symptoms -Further recommendations regarding perioperative risk stratification to follow -Optimize medical management -Aggressive risk factor modification -Plan of care discussed with patient. All questions were answered. Patient voices understanding and is agreeable with current plan. -Patient was educated on red flag symptoms. Strict return precautions were provided. Patient verbalizes understanding -Follow-up in cardiology clinic in 6 weeks, or sooner as necessary Thank you for allowing us to participate in the care of your patient. Please do not hesitate to contact cardiology with any questions or concerns. Isabella Cramer MD Interventional Cardiology [facility] 06-02-2023 Miscellaneous Notes Returned call. No answer. [...] reversal with Dr. Enriquez on 02/20/23. Contact# [phone] documented in this encounter [facility] 03-02-2023 Miscellaneous Notes Summary: Research Follow Up GUARDIAN IRB# [id number] IRB # [id number] Tight perioperative blood pressure management to reduce serious cardiovascular, renal, and cognitive complications: The GUARDIAN trial PI: Tutu Solorio MD, LUCIA, CHLOÉ. Outcomes Research Department. Anesthesia [place]. [facility]. This is a research study note. Patient assessments recorded here should not guide either clinical care or clinical decision-making. I called the patient, Hoang Dorado, today regarding follow-up for the study IRB [id number] Tight Perioperative Blood pressure Management to Reduce Serious Cardiovascular, renal, and Cognitive Complications (GUARDIAN) Trial. The patient refused to answer any questions. Zach Muhammad Research Service Inspector Outcomes Research [facility] documented in this encounter [facility] 02-28-2023 Miscellaneous Notes Summary: Research Follow Up GUARDIBLAISE IRB# [id number] IRB # [id number] Tight perioperative blood pressure management to reduce serious cardiovascular, renal, and cognitive complications: The GUARDIAN trial PI: Tutu Solorio MD, LUCIA, CHLOÉ. Outcomes Research Department. Anesthesia [place]. [facility]. This is a research study note. Patient assessments recorded here should not guide either clinical care or clinical decision-making. Hoang Dorado was unavailable at the listed phone number. A voice message was left. We will attempt to contact the patient again at a later date. Zach Muhammad Research Service Inspector Outcomes Research [facility] documented in this encounter [facility] 02-28-2023 Miscellaneous Notes PATIENT INFORMATION Record ID: [id number] Patient Name: [facility]: [place]: [facility] [place] Attending: Ana Enriquez Center: Colorectal Surgery INSTRUCTIONS Continue with script and ensure patient has appropriate number for [facility] or Appointment Center according to discharging physician s specialty and location at end of call All Clear SURVEY INFORMATION Medical/Nurse Service Inspector: Aleksandra Joyner 1. Your discharge instructions are important [...] (Standard Question) No documented in this encounter [facility] 02-27-2023 Miscellaneous Notes Pt is aware he will need to see Dr Enriquez. He denies any further needs at this time. Elyssa Baum RN I would recommed that he [...] He is willing to see an wash driller for this. Ava Rodriguez documented in this encounter [facility] 02-17-2023 Miscellaneous Notes Pt called about FMLA paperwork from 01/09/23 to 02/17/23. I left a message with his spouse that he will need to contact his primary so they can fill out the FMLA paperwork. He was given FMLA paperwork for his surgery in October. documented in this encounter [facility] 02-16-2023 Miscellaneous Notes Employer Forms for Patient/Caregiver Time Off of Work FMLA completed, signed by provider, and returned to below contact. Completed copy scanned in [facility] Date of Surgery: 02/20/23 Estimated RTW date: 04/17/23 Employer: [facility] [employer] Date sent to employer: 02/16/23 Received fax confirmation: YES Esha Leos MA documented in this encounter [facility] 02-09-2023 History and physical note HISTORY AND PHYSICAL EXAMINATION SERVICE DATE: 02/09/2023 SERVICE TIME: 1:40 PM PRIMARY CARE PHYSICIAN: Shaikh Kia MD REASON FOR VISIT: Hoang Dorado is a 47 year old male who [...] fevers. Neuro: No history of TIA's, stroke, INFORMATION TECHNOLOGY ASSISTANT tumor, impaired sensorium, hemiplegia, paraplegia or quadraplegia. [...] 400 QTC Calculation (Bazett) 434 Calculated P Republic 60 Calculated R Republic 127 Calculated T Republic 9 Impression NORMAL SINUS RHYTHM RIGHT AXIS DEVIATION NONSPECIFIC INTRAVENTRICULAR CONDUCTION DELAY ABNORMAL ECG Recent Results (from the past 44085 hour(s)) ECHO Collection Time: 01/17/22 1:15 PM [...] with med, stable. DVT (deep venous thrombosis) ([facility]) Assessment: Hx of, remote anticoagulated Denies recent [...] SIGNATURE: Ruba Awad APRN.CNP PATIENT NAME: Hoang Dorado DATE: February 09, 2023 TIME: 1:40 PM documented in this encounter [facility] 02-09-2023 Instructions Ruba Awad APRN.CNP - 02/09/2023 10:40 AM EDT PATIENT PREOPERATIVE INSTRUCTIONS Ana Enriquez MD has scheduled you for your procedure at this surgery center: [facility]: [phone] --[phone] [address]. Please check in on the 1st floor [...] Advance Directive, please fax a copy to [phone] or email to for it to be [...] chart that day. documented in this encounter [facility] 01-31-2023 Note HNO ID: [id number] Author: RT Mira(R) Service: Radiology Author Type: Technologist Type: Progress Notes Filed: 01/31/2023 3:15 PM Note Text: Radiology Service Progress Note PATIENT NAME: Hoang Dorado DATE OF SERVICE: January 31, 2023 TIME: [...] RT Mira(R) January 31, 2023 3:14 PM [facility] 01-31-2023 History of Present illness Narrative Radiology Service Progress Note PATIENT NAME: Hoang Dorado DATE OF SERVICE: January 31, 2023 TIME: [...] 2023 3:14 PM documented in this encounter [facility] 01-17-2023 Nurse Note Education packet given. [...] No Drains: No documented in this encounter [facility] 01-17-2023 History of Present illness Narrative COLORECTAL SURGERY January 17, 2023 Hoang Dorado Chief Complaint: surveillance of rectal cancer History of Present Illness: Hoang Dorado is a 47 year old male presents to the office for surveillance of rectal cancer. 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. Last seen in the office on on 12/06/22 with Kaylin Valentin TOOL GRINDER OPERATOR SURFACE for concerns of stoma trauma. Pouching issues: [...] date/level: 05/24/22- 5.9 Clinical stage: stage IIIC, [id number] Treatment: 5000 cGy in 25 fractions, 2 [...] mucus at anastomosis precluded evaluation of patency/narrowing Drill Sharpener Operator present: Yes Kelsea Assessment Assessment and Plan: Hoang Dorado is a 47 year old male with [...] be ordered: GGE I have discussed Hoang Dorado's treatment plan and/or results with the patient and his partner. I spent a total of 45 minutes on the date of the service which included preparing to see the patient, [id number] patient care, completing clinical documentation, obtaining and/or reviewing separately obtained history, performing a medically appropriate examination, counseling and educating the patient/family/caregiver, ordering medications, tests, or procedures, and care coordination (not separately reported). Ana Enriquez MD Colorectal Surgery documented in this encounter [facility] 01-02-2023 Miscellaneous Notes Returned call and left voice message. Pt. Family called and has concerns with his stoma site would like a call. PH:[phone] documented in this encounter [facility] 12-21-2022 Miscellaneous Notes Voicemail received from pt [...] the past regarding other concerns as well. Charity Pichardo RN documented in this encounter [facility] 12-20-2022 Miscellaneous Notes Call returned to patient. No answer, left message to return call to office to schedule an earlier follow up for complaint of pain. LM no prescription to be sent in until evaluation. Office number provided to schedule - offered next day appt. With TOOL GRINDER OPERATOR SURFACE. Dr Enriquez aware of request Patient called regarding post operative 11/07 robotic laparoscopic proctectomy and wound like a refill on pain medication return call to [phone] documented in this encounter [facility] 12-14-2022 Miscellaneous Notes Faxed to [employer] #[phone] on 12/14/22. Bárbara Sexton MA Short term disability for surgery recovery has been completed and placed in folder to be signed. Pt would like paperwork faxed to [employer] and secured emailed to work. Email attached to paperwork. Ava Rodriguez documented in this encounter [facility] 12-06-2022 History of Present illness Narrative COLORECTAL SURGERY December 06, 2022 Hoang Dorado 47 year old Chief Complaint: stoma concern/trauma History of Present Illness: Hoang Dorado is a 47 year old male presents [...] to stool. Assessment Assessment and Plan: Hoang Dorado is a 47 year old male with [...] with any new or concerning symptoms. Kaylin Valentin APRN.TAHIRA Colorectal Surgery documented in this encounter [facility] 12-06-2022 Nurse Note Summary: pain at s [...] No Drains: No documented in this encounter [facility] 12-05-2022 Miscellaneous Notes Returned call. Elsa discussed her concerns of stool coming out of the area between the skin and the top of the stoma. No concerns with pouching. Stool is going into the bag. She would like an appointment for her today. I informed her that the earliest I can provide is tomorrow at 1030 am with Yolis Valentin NP. Dr Enriquez will be available in the office to stop in and see him as well. They were appreciative of the call. No other questions or concerns at this time. Patient called and left message regarding post operative 11/07 robotic laparoscopic proctectomy and concerns regarding a hole in the stoma and leakage return call to [phone] documented in this encounter [facility] 11-21-2022 Miscellaneous Notes Pt calls asking [...] see what needs to be filled out. Charity Pichardo RN documented in this encounter [facility] 11-17-2022 Miscellaneous Notes Tumor board documented in this encounter [facility] 11-16-2022 Miscellaneous Notes Returned call and left voice message. Patient called in and has post-op questions/surgical concerns. Patient had surgery on with Dr. Enriquez on 11/07/22. Contact# [phone] documented in this encounter [facility] 10-28-2022 History and physical note HISTORY AND PHYSICAL EXAMINATION SERVICE DATE: 10/27/2022 SERVICE TIME: 11:45 AM PRIMARY CARE PHYSICIAN: Shaikh Kia MD REASON FOR VISIT: Hoang Dorado is a 47 year old male who [...] fevers. Neuro: No history of TIA's, stroke, INFORMATION TECHNOLOGY ASSISTANT tumor, impaired sensorium, hemiplegia, paraplegia or quadraplegia. No neurological symptoms or problems. Respiratory: No history of current cough or dyspnea, or pneumonia in the past 6 weeks. No history of respiratory/pulmonary symptoms or problems. Cardiovascular: Negative for Recent TX, Angina, Chest Pain, HTN, PVD +DVT 8 [...] 406 QTC Calculation (Bazett) 445 Calculated P Republic 46 Calculated R Republic 127 Calculated T Republic -2 Impression Sinus rhythm Right axis Nonspecific intraventricular conduction delay Abnormal ECG Confirmed by PIPPA YODER M.D. ([id number]) on 02/25/2022 9:47:37 PM Recent Results (from the past 75801 hour(s)) ECHO Collection Time: 01/17/22 1:15 PM [...] >15 years ago DVT (deep venous thrombosis) ([facility]) Assessment: remote hx Treated with 6 months [...] SIGNATURE: Juliana Peterson APRN.CNP PATIENT NAME: Hoang Dorado DATE: October 27, 2022 TIME: 11:47 AM documented in this encounter [facility] 10-27-2022 Instructions Juliana Peterson APRN.CNP - 10/27/2022 11:39 AM EST PATIENT PREOPERATIVE INSTRUCTIONS Ana Enriquez MD has scheduled you for your procedure at this surgery center: [facility]: [phone] --[phone] [address]. Please check in on the 1st floor [...] Advance Directive, please fax a copy to [phone] or email to for it to be [...] Juliana Peterson APRN.CNP documented in this encounter [facility] 10-17-2022 History of Present illness Narrative RADIOLOGY SERVICE PROGRESS NOTE SERVICE DATE: 10/17/2022 [...] contrast PATIENT DISCHARGED TO: Ambulatory patient, left [place] department area. A Diagnostic radioactive procedure has taken place, with no further precautions necessary other than routine body substance precautions. More information regarding radiation safety can be found using this link: [email or web address] SIGNATURE: RT Torsten(Kelle) PATIENT NAME: Hoang Dorado DATE: October 17, 2022 TIME: 12:28 PM PAGER/CONTACT #: documented in this encounter [facility] 10-13-2022 History and physical note PROCEDURAL [...] SIGNATURE: Kaylin Zamora MD PATIENT NAME: Hoang Dorado DATE: October 13, 2022 TIME: 2:29 PM [...] October 13, 2022 documented in this encounter [facility] 10-11-2022 Miscellaneous Notes Notification to doctor's office that patient has been called to schedule PACC prior to surgery. Patient has failed to schedule. No call back needed. documented in this encounter [facility] 10-05-2022 Miscellaneous Notes Call placed to patient's significant other Ghazala at [phone]. No answer, left message re: date of flex sig 10/13, date of abdomen/pelvis 10/17, and OR date of 11/07/2022. Office number provided for call back to discuss further documented in this encounter [facility] 10-04-2022 History of Present illness Narrative COLORECTAL SURGERY October 04, 2022 Hoang Dorado Chief Complaint: surveillance of rectal cancer History of Present Illness: Hoang Dorado is a 47 year old male presents [...] date/level: 05/24/22- 5.9 Clinical stage: stage IIIC, [id number] Treatment: 5000 cGy in 25 fractions, 2 [...] by mouth three times daily with meals. 14358 mL 0 lactobacillus rhamnosus (CULTURELLE) 10 billion [...] incompletely evaluated Assessment Assessment and Plan: Hoang Dorado is a 47 year old male with [...] medical complications of surgery including DVT/PE, PNA, TX, stroke, and . The patient understands these [...] indeterminate pulmonary nodules I have discussed Hoang Dorado's treatment plan and/or results with the patient, his partner, Dr. Gonzalez I spent a total of 60 minutes on the date of the service which included preparing to see the patient, [id number] patient care, completing clinical documentation, obtaining and/or reviewing separately obtained history, performing a medically appropriate examination, counseling and educating the patient/family/caregiver, ordering medications, tests, or procedures, communicating with other HCPs (not separately reported), independently interpreting results (not separately reported), communicating results to the patient/family/caregiver, and care coordination (not separately reported). Ana Enriquez MD Colorectal Surgery documented in this encounter [facility] 09-27-2022 Miscellaneous Notes Pt's notified and states pt has a follow up appointment with Dr Enriquez on 10/04 to discuss surgery. Charity Pichardo RN ----- Message from Oscar Gonzalez MD sent at 09/26/2022 4:26 PM EST ----- Call with results and state that he has responded and will likely need surgery. Thanks documented in this encounter [facility] 09-26-2022 History of Present illness Narrative Radiology Service Progress Note PATIENT NAME: Hoang Dorado DATE OF SERVICE: September 26, 2022 TIME: [...] RT Ariella(R) September 26, 2022 2:45 PM documented in this encounter [facility] 09-26-2022 History of Present illness Narrative Radiology Service Progress Note PATIENT NAME: Hoang Dorado DATE OF SERVICE: September 26, 2022 TIME: [...] RT Dell(R) September 26, 2022 1:48 PM documented in this encounter [facility] 09-26-2022 Nurse Note Radiology Service Progress Note [...] Please leave in IV for MRI at [facility]. SIGNATURE: Kylah Butler RN PATIENT NAME: Hoang Dorado DATE: September 26, 2022 TIME: 1:40 PM documented in this encounter [facility] 09-23-2022 Miscellaneous Notes MRI- 09/26/2022 @ 200PM Appointment reminder call- spoke with Elsa- gave directions to the office- states patient has another appointment before ours and will be here after documented in this encounter [facility] 08-26-2022 Miscellaneous Notes Summary: Research Follow Up [facility] IRB# [id number] IRB # [id number] Tight perioperative blood pressure management to reduce serious cardiovascular, renal, and cognitive complications: The GUARDIAN trial PI: Tutu Solorio MD, LUCIA, FASA. Outcomes Research Department. Anesthesia [place]. [facility]. This is a research study note. Patient assessments recorded here should not guide either clinical care or clinical decision-making. I called the patient, Hoang Dorado, today regarding follow-up for the study IRB [id number] Tight Perioperative Blood pressure Management to Reduce Serious Cardiovascular, renal, and Cognitive Complications (GUARDIAN) Trial. The patient was busy and told me to call back in the morning next week. Zach Muhammad Research Service Inspector Outcomes Research [facility] documented in this encounter [facility] 08-26-2022 History of Present illness Narrative Images from the original note were not included. PATIENT NAME: Hoang Dorado [facility] NO.: [id number] ATTENDING PHYSICIAN: Oscar Gonzalez MD DATE OF [...] 2. Severe TR ( ECHO 12/2021 at [facility]): - The left ventricle is normal [...] 0.44 (L) 1.00 - 4.00 k/uL Final Kern% Date Value Ref Range Status 08/26/2022 12.9 % Final Abs Kern Date Value Ref Range Status 08/26/2022 0.48 [...] lymph nodes: No. Assessment and Plan: Hoang Dorado is a 46 year old year old [...] has syeda addressed 4. Diarrhea- Resolved Temi Ramirez PA-C CC: Ana Enriquez MD documented in this encounter [facility] 08-25-2022 Miscellaneous Notes Summary: Research Follow Up [facility] IRB# [id number] IRB # [id number] Tight perioperative blood pressure management to reduce serious cardiovascular, renal, and cognitive complications: The GUARDIAN trial PI: Tutu Solorio MD, LUCIA, FASA. Outcomes Research Department. Anesthesia [place]. [facility]. This is a research study note. Patient assessments recorded here should not guide either clinical care or clinical decision-making. Hoang Dorado was unavailable at the listed phone number. A voice message was left. We will attempt to contact the patient again at a later date. Zach Muhammad Research Service Inspector Department of OUTCOMES RESEARCH Anesthesiology [place] documented in this encounter [facility] 08-08-2022 Miscellaneous Notes Call received from Sridevi at [employer] in [place] requesting ICD codes to use for pt's order for ensure. Codes provided. Charity Pichardo RN documented in this encounter [facility] 08-05-2022 History of Present illness Narrative Radiation Oncology - Follow Up Note PATIENT NAME: Hoang Dorado PATIENT Signed by: Tylor Davalos MD I spent a total of 20 minutes on the date of the service which included preparing to see the patient, iroc-ur-rtzs patient care, and counseling and educating the patient/family/caregiver. This document has been created with the use of voice recognition technology. It may contain inaccuracies, misspellings, inaccurate syntax or inappropriate word context that are a result of the inadequacies/shortcomings of said technology/software. documented in this encounter [facility] 08-05-2022 Miscellaneous Notes Pt called and discussed this with him. Please refer to other telephone encounter. Charity Pichardo RN Patient stopped up at front desk associate to see if there is anything we can do with the pain he is getting in his hands. He says he is getting a cold feeling he thinks from Chemo. If you can please call him today. Indira Evans documented in this encounter [facility] 08-05-2022 Miscellaneous Notes Addended by: OSCAR GONZALEZ on: 08/05/2022 11:11 AM Modules accepted: Orders documented in this encounter [facility] 08-05-2022 History of Present illness Narrative PATIENT NAME: Hoang Dorado CLINIC NO.: [id number] ATTENDING PHYSICIAN: Oscar Gonzalez MD DATE OF SERVICE: June 24, 2022 Some of the elements of this note have been copied from my previous progress note dated 06/24/2022. All the information has been reviewed carefully. Dear Dr. Ana Enriquez, here is an update on a follow up visit on male Hoang Dorado at the clinic June 24, 2022 Diagnosis: 1. Upper rectal cancer, MRI staged T4a,N+,M0- Mod Diff Adenocarcinoma ( [facility]) 2. Severe TR ( ECHO 12/2021 at [facility]): - The left ventricle is normal [...] for ISAÍAS 3. XELOX 06/03/2022 HPI: Hoang Dorado is a 46 year old year old [...] 0.56 (L) 1.00 - 4.00 k/uL Final Kern% Date Value Ref Range Status 08/05/2022 12.1 % Final Abs Kern Date Value Ref Range Status 08/05/2022 0.43 [...] lymph nodes: No. Assessment and Plan: Hoang Dorado is a 46 year old year old [...] do not hesitate to contact me at [phone]. Oscar Gonzalez MD Hematology/Medical Oncology [facility] spent a total of 25 minutes on the date of the service which included preparing to see the patient, vjuq-nn-xvug patient care, completing clinical documentation, obtaining and/or reviewing separately obtained history, performing a medically appropriate examination, counseling and educating the patient/family/caregiver, ordering medications, tests, or procedures and communicating with other HCPs (not separately reported). Medical Decision Making: Medical Decision Making Level: 1 - N/A CC: Ana Enriquez MD documented in this encounter [facility] 07-15-2022 Miscellaneous Notes B12 has been ordered Temi Ramirez PA-C Pt in for tx today, states [...] Angella Gautam RN documented in this encounter [facility] 07-15-2022 History of Present illness Narrative Images from the original note were not included. PATIENT NAME: Hoang Dorado [facility] NO.: [id number] ATTENDING PHYSICIAN: Oscar Gonzalez MD DATE OF [...] 2. Severe TR ( ECHO 12/2021 at [facility]): - The left ventricle is normal [...] 0.50 (L) 1.00 - 4.00 k/uL Final Kern% Date Value Ref Range Status 06/24/2022 10.0 % Final Abs Kern Date Value Ref Range Status 06/24/2022 0.55 [...] lymph nodes: No. Assessment and Plan: Hoang Dorado is a 46 year old year old [...] in 3 weeks for cycle 3/5. Temi Ramirez PA-C CC: Ana Enriquez MD documented in this encounter [facility] 07-15-2022 History of Present illness Narrative Patient [...] to assess patient. documented in this encounter [facility] 06-27-2022 Miscellaneous Notes Pt calls stating he still hasn't heard from [employer] regarding his Xeloda pills. Explained to pt that the new script was escribed through to [employer] and they should have it ready to be shipped to him. Instructed pt to call [employer] to schedule delivery. Pt verbalized understanding and will call now. Charity Pichardo RN documented in this encounter [facility] 06-24-2022 History of Present illness Narrative Images from the original note were not included. PATIENT NAME: Hoang Dorado CLINIC NO.: [id number] ATTENDING PHYSICIAN: Oscar Gonzalez MD DATE OF SERVICE: June 24, 2022 Some of the elements of this note have been copied from my previous progress note dated 05/24/2022. All the information has been reviewed carefully. Dear Dr. Ana Enriquez, here is an update on a follow up visit on male Hoang Dorado at the clinic June 24, 2022 Diagnosis: 1. Upper rectal cancer, MRI staged T4a,N+,M0- Mod Diff Adenocarcinoma ( [facility]) 2. Severe TR ( ECHO 12/2021 at [facility]): - The left ventricle is normal [...] for ISAÍAS 3. XELOX 06/03/2022 HPI: Hoang Dorado is a 46 year old year old [...] 0.55 (L) 1.00 - 4.00 k/uL Final Kern% Date Value Ref Range Status 06/03/2022 7.4 % Final Abs Kern Date Value Ref Range Status 06/03/2022 0.50 [...] lymph nodes: No. Assessment and Plan: Hoang Dorado is a 46 year old year old [...] do not hesitate to contact me at [phone]. Oscar Gonzalez MD Hematology/Medical Oncology [facility] spent a total of 25 minutes on the date of the service which included preparing to see the patient, qgsz-gl-wvyh patient care, completing clinical documentation, obtaining and/or reviewing separately obtained history, performing a medically appropriate examination, counseling and educating the patient/family/caregiver, ordering medications, tests, or procedures and communicating with other HCPs (not separately reported). Medical Decision Making: Medical Decision Making Level: 1 - N/A CC: Ana Enriquez MD documented in this encounter [facility] 06-23-2022 Miscellaneous Notes Pt is due to start treatment tomorrow and doesn't have any Xeloda. Please sign pending script. Thanks Charity Pichardo RN documented in this encounter [facility] 06-10-2022 Miscellaneous Notes All paperwork faxed on 04/20/22. Ava Rodriguez Disability paperwork completed and placed in folder to be signed. Please fax all visit notes in folder along with his paperwork. Ava Rodriguez documented in this encounter [facility] 06-08-2022 Miscellaneous Notes Message left for pt to call our office back. Charity Pichardo RN CYCLE 1/DAY 1 POST TREATMENT CALL Today's date: June 07, 2022 Treatment Regimen: Capox C1D1 Date: 06/03/22 Called patient and message left for pt to call our office back. Charity Pichardo RN documented in this encounter [facility] 06-03-2022 History of Present illness Narrative SOCIAL WORK Date of Service:06/03/22 Hoang Dorado is a 46 year old male being [...] appropriate. AXEL Poon documented in this encounter [facility] 06-03-2022 Miscellaneous Notes 1 day's dose needed while patient is waiting for mail order to arrive today. Elvin Mascorro rPh documented in this encounter [facility] 06-03-2022 Miscellaneous Notes [facility] capecitabine is out for delivery and will be delivered via [employer] by 7 PM 06/03/22, no signature required Tracking #: [id number] Will have 1 dose available at [facility] Elvin Mascorro rPh Discussed with pt at his education visit today. Pt notified to contact [facility] as soon as his education was complete. Pt verbalized understanding and number given to pt. Then called pt back regarding message below. Voicemail received. Notified pt on his voicemail that we have a couple options regarding his Xeloda when he is here in the morning. Encouraged pt to call our office back. Charity Pichardo RN Phone call placed to [facility] to check status of capecitabine prescription for CAPOX regimen. [facility] been trying to reach out to patient with no success. Patient has chemo education via phone today with Charity Pichardo RN [employer]. Forwarded this information to Charity to discuss with Hoang: Please call [facility] to schedule a delivery of your capecitabine that you will need for treatment tomorrow 06/03/22 ( .) Please let them know that you will need this to be shipped overnight to you. The appeals representative stated this is possible, if you call them prior to 6pm 06/02/22. Options available for am dose if he does not have any left from concurrent therapy include: 1. Purchasing 1 days dose from retail 2. Repository 1 days dose Jackie Mascorro RPh documented in this encounter [facility] 06-02-2022 History of Present illness Narrative ONCOLOGY [...] Pt needs to refill his xeloda through [facility]. Phone number provided to pt and he will call today. Pt will need to either cloth picker his morning dose from our pharmacy or he'll need to get it from the repository. Pt is to receive his xeloda shipment overnight through [facility]. Time Spent: 25 minutes REFERRAL (RECOMMENDATION): N/A Charity Pichardo RN documented in this encounter [facility] 05-30-2022 Miscellaneous Notes Summary: Research Follow Up GUARDIAN IRB# [id number] IRB # [id number] Tight perioperative blood pressure management to reduce serious cardiovascular, renal, and cognitive complications: The GUARDIAN trial PI: Tutu Solorio MD, LUCIA, FASA. Outcomes Research Department. Anesthesia [place]. [facility]. This is a research study note. Patient assessments recorded here should not guide either clinical care or clinical decision-making. I called the patient, Hoang Dorado, today regarding follow-up for the study IRB [id number] Tight Perioperative Blood pressure Management to Reduce Serious Cardiovascular, renal, and Cognitive Complications (GUARDIAN) Trial. The patient said to call back tomorrow. Zach Muhammad Research Service Inspector Department of OUTCOMES RESEARCH Anesthesiology [place] documented in this encounter [facility] 05-25-2022 Miscellaneous Notes Summary: Research Follow Up Karthikeyan IRB# [id number] IRB # [id number] Tight perioperative blood pressure management to reduce serious cardiovascular, renal, and cognitive complications: The GUARDIAN trial PI: Tutu Solorio MD, LUCIA, FASA. Outcomes Research Department. Anesthesia [place]. [facility]. This is a research study note. Patient assessments recorded here should not guide either clinical care or clinical decision-making. Patient was unable to be reached by phone. I left a voicemail to call back at earliest convenience. Will call again at a later date. Zach Muhammad Research Service Inspector Outcomes Research [facility] documented in this encounter [facility] 05-25-2022 Miscellaneous Notes Patient was in to see med onc yesterday. Follow up as scheduled. Janine Holliday RN Call placed to patient to check status post XRT. LM requesting CB. Janine Holliday RN documented in this encounter [facility] 05-24-2022 Miscellaneous Notes Must use [facility] documented in this encounter [facility] 05-24-2022 History of Present illness Narrative Images from the original note were not included. [id number] ATTENDING PHYSICIAN: Oscar Gonzalez MD DATE OF SERVICE: May 24, 2022 Some of the elements of this note have been copied from my previous progress note dated 04/12/2022. All the information has been reviewed carefully. Dear Dr. Ana Enriquez, here is an update on a follow up visit on male Hoang Dorado at the clinic May 24, 2022 Diagnosis: 1. Upper rectal cancer, MRI staged T4a,N+,M0- Mod Diff Adenocarcinoma ( DIANNE) 2. Severe TR ( ECHO 12/2021 at [facility]): - The left ventricle is normal [...] XRT 03/10/2022-04/15/2022- Plan for ISAÍAS HPI: Hoang Dorado is a 46 year old year old [...] 0.67 (L) 1.00 - 4.00 k/uL Final Kern% Date Value Ref Range Status 05/24/2022 7.7 % Final Abs Kern Date Value Ref Range Status 05/24/2022 0.45 [...] lymph nodes: No. Assessment and Plan: Hoang Dorado is a 46 year old year old [...] and need surgical revision after CRC has yseda addressed 4. Diarrhea- Resolved Chemo teach and start next week Thank you for the kind referral. If there are any questions and or concerns please do not hesitate to contact me at [phone]. Oscar Gonzalez MD Hematology/Medical Oncology [facility] spent a total of 25 minutes on the date of the service which included preparing to see the patient, [id number] patient care, completing clinical documentation, obtaining and/or reviewing separately obtained history, performing a medically appropriate examination, counseling and educating the patient/family/caregiver, ordering medications, tests, or procedures and communicating with other HCPs (not separately reported). Medical Decision Making: Medical Decision Making Level: 1 - N/A CC: Ana Enriquez MD documented in this encounter [facility] 05-24-2022 Nurse Note Education on flexible sigmoidoscopy given. Per patient request, he is scheduled for June 30 at [place]. No other questions at this time. documented in this encounter [facility] 05-24-2022 History of Present illness Narrative COLORECTAL SURGERY May 24, 2022 Hoang Dorado Chief Complaint: rectal cancer History of Present Illness: Hoang Dorado is a 46 year old male presents [...] CRC diagnosed in his 70s [facility] Oscar Gonzalez Radiation oncologist: [...] date/level: 02/04/22 25.4 Clinical stage: stage IIIC, [id number] Treatment: 5000 cGy in 25 fractions, 2 [...] Types: IV Comment: Past drug use of herchristina Physical Exam: BP 108/80 Pulse 71 Temp 36.8 C (98.3 F) Resp 16 SpO2 98% General Appearance: Well appearing, alert, in no acute distress, well-hydrated, well nourished. Abdomen: soft ND NT L side colostomy p/p/p of stool. Incisions well healed no hernias No inguinal LAD. Assessment Assessment and Plan: Hoang Dorado is a 46 year old male with stage IIIC, [id number] upper rectal adenocarcinoma s/p laparoscopic diverting end [...] interpreted: MRI Pelvis I have discussed Hoang Dorado's treatment plan and/or results with the patient and his partner, Drs. Gonzalez and Anoop. I spent a total of 40 minutes on the date of the service which included preparing to see the patient, [id number]-[id number]-hcwd patient care, completing clinical documentation, obtaining and/or reviewing separately obtained history, performing a medically appropriate examination, counseling and educating the patient/family/caregiver, ordering medications, tests, or procedures, communicating with other HCPs (not separately reported), independently interpreting results (not separately reported), communicating results to the patient/family/caregiver and care coordination (not separately reported). Ana Enriquez MD Colorectal Surgery documented in this encounter [facility] 05-12-2022 Miscellaneous Notes Return to work letter unable to be faxed to [phone], called company they said that there fax is not working correct. Mailed to patient, copy placed in scanning. Bárbara Sexton MA documented in this encounter [facility] 05-12-2022 Miscellaneous Notes Radiology Service Progress Note [...] SIGNATURE: LEROY Larson Tech PATIENT NAME: Hoang Dorado DATE: May 12, 2022 TIME: 2:01 PM documented in this encounter [facility] 05-03-2022 Miscellaneous Notes Pt notified and requests that we fax the letter to [employer]. Pt does not have the fax number. Echo fernandez/ Nory @ [employer]. Instructed to fax letter to [phone]. Letter faxed as requested. Beverly Black RN Done Pt requesting a letter releasing him back to work starting 05/09/22. Asks that we include in the letter that he be able to work 40 hrs/week w/ no heavy lifting. Will you write? Beverly Black RN documented in this encounter [facility] 04-22-2022 Miscellaneous Notes Message left with this information on pt's voicemail Charity Pichardo RN Signed Call placed to pt's pharmacy and he finished in 2019 at a dose of 300 mg daily. Discussed with pharmacist and recommended starting at the 150 mg dose for 5 days prior to taking the 300 mg dose. Scripts pending your signature. Thanks Charity Pichardo RN Yes. Does he recall what dose he was taking? Pt calls stating he was on Wellbutrin for 3 years and stopped it about a year ago. Pt states it really helped with his depression and he'd like to go back on it. Pt asking if you are willing to prescribe this for him? Please advise Charity Pichardo RN documented in this encounter [facility] 04-14-2022 Miscellaneous Notes Jayce stopped inquiring about his most recent letter to be off work for an additional month. He said he dropped the letter of his company but wasn't sure if [employer] received a copy. He said [employer] is the company that sends him his disability checks. I called Nory Mariscal at [employer] ([phone]) and she said she did forward the letter to [employer]. She provided this information regarding [employer]. I gave Jayce a copy of the numbers as well. Fariba Mosley LPN Plan # [id number] documented in this encounter [facility] 04-12-2022 History of Present illness Narrative Images from the original note were not included. PATIENT NAME: Hoang Dorado CLINIC NO.: [id number] ATTENDING PHYSICIAN: Oscar Gonzalez MD DATE OF SERVICE: April 12, 2022 Some of the elements of this note have been copied from my previous progress note dated 03/18/2022. All the information has been reviewed carefully. Dear Dr. Ana Enriquez, here is an update on a follow up visit on male Hoang Dorado at the clinic April 12, 2022 Diagnosis: 1. Upper rectal cancer, MRI staged T4a,N+,M0- Mod Diff Adenocarcinoma ( DIANNE) 2. Severe TR ( ECHO 12/2021 at [facility]): - The left ventricle is normal [...] 2. Xeloda and XRT 03/10/2022 HPI: Hoang Dorado is a 46 year old year old [...] 0.54 (L) 1.00 - 4.00 k/uL Final Kern% Date Value Ref Range Status 04/12/2022 6.3 % Final Abs Kern Date Value Ref Range Status 04/12/2022 0.43 [...] No. EMVI: Yes. Assessment and Plan: Hoang Dorado is a 46 year old year old [...] do not hesitate to contact me at [phone]. Oscar Gonzalez MD Hematology/Medical Oncology [facility] spent a total of 25 minutes on the date of the service which included preparing to see the patient, [id number]-[id number]-dqck patient care, completing clinical documentation, obtaining and/or reviewing separately obtained history, performing a medically appropriate examination, counseling and educating the patient/family/caregiver, ordering medications, tests, or procedures and communicating with other HCPs (not separately reported). Medical Decision Making: Medical Decision Making Level: 1 - N/A CC: Ana Enriquez MD documented in this encounter [facility] 04-06-2022 History of Present illness Narrative Radiation Oncology - On Treatment Review (OTR) Note PATIENT NAME: Hoang Dorado PATIENT DIAGNOSIS: Mr. Dorado is a 46-year-old gentleman recently diagnosed with stage IIIC, [id number] adenocarcinoma of the rectum status post colonoscopy [...] Tylor Davalos MD documented in this encounter [facility] 04-01-2022 Nurse Note Patient states that his stoma is irritated, red, looks like the skin is deteriorating, sore and it has been almost a month. He has some concerns regarding this. Bárbara Sexton MA documented in this encounter [facility] 04-01-2022 History of Present illness Narrative Images from the original note were not included. PATIENT NAME: Hoang Dorado [facility] NO.: [id number] ATTENDING PHYSICIAN: Oscar Gonzalez MD DATE OF [...] 2. Severe TR ( ECHO 12/2021 at [facility]): - The left ventricle is normal [...] 2. Xeloda and XRT 03/10/2022 HPI: Mr. Dorado remains on xrt with xeloda 1300 mg [...] 0.44 (L) 1.00 - 4.00 k/uL Final Kern% Date Value Ref Range Status 04/01/2022 7.2 % Final Abs Kern Date Value Ref Range Status 04/01/2022 0.41 [...] No. EMVI: Yes. Assessment and Plan: Hoang Dorado is a 46 year old year old [...] Follow up with home health/stoma nurse Temi Ramirez PA-C CC: Ana Enriquez MD documented in this encounter [facility] 03-30-2022 History of Present illness Narrative Radiation Oncology - On Treatment Review (OTR) Note PATIENT NAME: Hoang Dorado PATIENT DIAGNOSIS: Mr. Dorado is a 46-year-old gentleman recently diagnosed with stage IIIC, [id number] adenocarcinoma of the rectum status post colonoscopy [...] Tylor Davalos MD documented in this encounter [facility] 03-25-2022 Miscellaneous Notes Summary: IRB# [id number] 30 Day Follow Up IRB # [id number] Tight perioperative blood pressure management to reduce serious cardiovascular, renal, and cognitive complications: The GUARDIAN trial PI: Tutu Solorio MD, LUCIA, FASA. Outcomes Research Department. Anesthesia [place]. [facility]. This is a research study note. Patient [...] not yet complete. Rob Arcos MD Anesthesiology [place] Outcomes Research Department Research Fellow [facility] documented in this encounter [facility] 03-23-2022 History of Present illness Narrative Radiation Oncology - On Treatment Review (OTR) Note PATIENT NAME: Hoang Dorado PATIENT DIAGNOSIS: Mr. Dorado is a 46-year-old gentleman recently diagnosed with stage IIIC, [id number] adenocarcinoma of the rectum status post colonoscopy [...] Tylor Davalos MD documented in this encounter [facility] 03-18-2022 Nurse Note Clinical questionnaires incomplete due to Patient declined to complete or answer questions with nurse. Patient in a hurry to get to another appointment. Emily Garcia documented in this encounter [facility] 03-18-2022 Nurse Note What is the reason for your visit today? Post op Who is your referring physician? Self Are you having poor oral intake? NO Have you had unintentional weight loss of 15 lbs/7 Kg in the last 3-6 months? NO Bowels: regular Wound: clean & dry Temperature: No Drains: No documented in this encounter [facility] 03-18-2022 History of Present illness Narrative COLORECTAL SURGERY March 18, 2022 Hoang Dorado 46 year old Chief Complaint: post-op visit History of Present Illness: Hoang Dorado is a 46 year old male with [...] Types: IV Comment: Past drug use of orin Physical Exam: BP 123/78 Pulse 78 Temp [...] and flatus. Assessment Assessment and Plan: Hoang Dorado is a 46 year old male s/p [...] pathology results - Pre-treatment clinical stage of [id number] stage IIIC. He is experiencing obstructive symptoms. [...] independently interpreted: n/a I have discussed Hoang Dorado's treatment plan and/or results with the patient, Dr. Enriquez. Risk of morbidity, mortality and/or complications of treatment plan: low Bouchra Thompson APRN.HOSIERY MENDER Colorectal Surgery documented in this encounter [facility] 03-18-2022 Miscellaneous Notes Addended by: OSCAR GONZALEZ on: 03/18/2022 01:48 PM Modules accepted: Orders documented in this encounter [facility] 03-18-2022 History of Present illness Narrative Images from the original note were not included. PATIENT NAME: Hoang Dorado CLINIC NO.: [id number] ATTENDING PHYSICIAN: Oscar Gonzalez MD DATE OF SERVICE: March 18, 2022 Some of the elements of this note have been copied from my previous progress note dated 03/01/2022. All the information has been reviewed carefully. Dear Dr. Ana Enriquez, here is an update on a follow up visit on kina Dorado at the clinic March 18, 2022 Diagnosis: 1. Upper rectal cancer, MRI staged T4a,N+,M0- Mod Diff Adenocarcinoma ( DIANNE) 2. Severe TR ( ECHO 12/2021 at [facility]): - The left ventricle is normal [...] 2. Xeloda and XRT 03/10/2022 HPI: Hoang Dorado is a 46 year old year old [...] 02/24/2022 1.69 1.00 - 4.00 k/uL Final Kern% Date Value Ref Range Status 02/24/2022 6.9 % Final Abs Kern Date Value Ref Range Status 02/24/2022 0.67 [...] No. EMVI: Yes. Assessment and Plan: Hoang Dorado is a 46 year old year old [...] do not hesitate to contact me at [phone]. Oscar Gonzalez MD Hematology/Medical Oncology [facility] spent a total of 25 minutes on the date of the service which included preparing to see the patient, mojc-[id number] patient care, completing clinical documentation, obtaining and/or reviewing separately obtained history, performing a medically appropriate examination, counseling and educating the patient/family/caregiver, ordering medications, tests, or procedures and communicating with other HCPs (not separately reported). Medical Decision Making: Medical Decision Making Level: 1 - N/A CC: Ana Enriquez MD documented in this encounter [facility] 03-16-2022 History of Present illness Narrative Radiation Oncology - On Treatment Review (OTR) Note PATIENT NAME: Hoang Dorado PATIENT DIAGNOSIS: Mr. Dorado is a 46-year-old gentleman recently diagnosed with stage IIIC, [id number] adenocarcinoma of the rectum status post colonoscopy [...] Tylor Davalos MD documented in this encounter [facility] 03-15-2022 Miscellaneous Notes [facility] paperwork signed by Dr. Gonzalez and faxed to [phone]. Bárbara Sexton MA documented in this encounter [facility] 03-15-2022 Miscellaneous Notes ORAL ANTI-CANCER AGENTS FOLLOW-UP [...] had antiemetics to take. Pt forgot to cloth picker his zofran and compazine from our pharmacy and had some left over zofran from his surgery that he took. This helped and pt felt better on Monday. Pt will cloth picker antiemetics from our pharmacy today. Vomiting: No Weight gain/loss: Yes pt states he continues to lose weight. Offered methods specialist engineer to reach out to him and he [...] instructed to call if unable to comply. Charity Pichardo RN documented in this encounter [facility] 03-14-2022 Miscellaneous Notes Sure Called patient for [...] letting him work, I will complete his [facility] paperwork. He wanted me to check with you first but, he feels like he is able to go back. Ava Rodriguez documented in this encounter [facility] 03-11-2022 Miscellaneous Notes Returned call. He wanted to know if Dr. Enriquez would write a prescription for suboxone for him. States he was previously on it. Advised him to reach out to the doctor that originally prescribed it. Patient called and left message regarding wanting a prescription renewed return call to [phone] documented in this encounter [facility] 03-01-2022 History of Present illness Narrative ORAL [...] refill process. Yes Pt will fill through [facility]. Phone number provided to pt to [...] it and ask questions that she has. Charity Pichardo RN documented in this encounter [facility] 03-01-2022 History of Present illness Narrative Images from the original note were not included. PATIENT NAME: Hoang Dorado [facility] NO.: [id number] ATTENDING PHYSICIAN: Oscar Gonzalez MD DATE OF SERVICE: March 01, 2022 Some of the elements of this note have been copied from my previous progress note dated 02/04/2022. All the information has been reviewed carefully. Dear Dr. Ana Enriquez, here is an update on a follow up visit on male Hoang Dorado at the clinic March 01, 2022 Diagnosis: 1. Upper rectal cancer, MRI staged T4a,N+,M0- Mod Diff Adenocarcinoma ( DIANNE) 2. Severe TR ( ECHO 12/2021 at [facility]): - The left ventricle is normal [...] 1. 02/21/2022: Laparoscopic end colostomy HPI: Hoang Dorado is a 46 year old year old [...] 02/24/2022 1.69 1.00 - 4.00 k/uL Final Kern% Date Value Ref Range Status 02/24/2022 6.9 % Final Abs Kern Date Value Ref Range Status 02/24/2022 0.67 [...] No. EMVI: Yes. Assessment and Plan: Hoang Dorado is a 46 year old year old [...] do not hesitate to contact me at [phone]. Oscar Gonzalez MD Hematology/Medical Oncology [facility] spent a total of 25 minutes on the date of the service which included preparing to see the patient, [id number]-hk-[id number] patient care, completing clinical documentation, obtaining and/or reviewing separately obtained history, performing a medically appropriate examination, counseling and educating the patient/family/caregiver, ordering medications, tests, or procedures and communicating with other HCPs (not separately reported). Medical Decision Making: Medical Decision Making Level: 1 - N/A CC: Ana Enriquez MD documented in this encounter [facility] 02-28-2022 History of Present illness Narrative HOANG DORADO [id number] 02/28/2022 [facility] Radiation Oncology Department SIMULATION NOTE DATE OF SIMULATION: 02/28/2022 THERAPIST: Rosina Dimas MACHINE: [employer] mCT DIAGNOSIS: Malignant neoplasm of [id number] AREA: RECTUM CONTRAST: IV 100cc omni via [...] Electronically Signed Tylor Davalos M.D. / CDT 23:49 AM documented in this encounter [facility] 02-28-2022 History of Present illness Narrative HOANG DORADO [id number] 02/28/2022 [facility] Department of Radiation Oncology Treatment Planning Note For reasons stated in the consult note, Hoang Dorado is a candidate for radiation therapy. Based on review and interpretation of the relevant diagnostic studies together with the exam findings, Hoang Dorado was simulated on 02/28/2022 at which time [...] M.D. 27:26 PM documented in this encounter [facility] 02-24-2022 Miscellaneous Notes Patient Is scheduled 03/01 for appointment with naya ed Hi, can you please let me know where or when you would like patient thank you! Carlos is not here on Mondays please advise. Please schedule pt to see Dr Gonzalez on 02/28 as well as chemo ed that day. Please coordinate with Dr Davalos's appointment. Thanks Charity Pichardo RN He is having bypass surgery [...] have a treatment plan in mind? Thanks Charity Pichardo RN documented in this encounter [facility] 02-22-2022 Miscellaneous Notes OK It doesn't allow me to sign documented in this encounter [facility] 02-18-2022 Miscellaneous Notes Ambulatory Pharmacy Prior Authorization Note Provider Intervention Required?: No- Pharmacy completed on your behalf. Drug: Capecitabine Cover My Meds Rubin: [id number] Determination: Approved Prior Authorization/Case #: [id number] Prior Authorization Expiration: 02/18/2023 Time to PA Submission in CMM: 15 min Time to PA Determination in CMM: Same day Additional Information: 500mg *MUST be filled @ [facility]. For questions relating to this submission, please contact [facility] at [phone] documented in this encounter [facility] 02-16-2022 History and physical note Images from the original note were not included. HISTORY AND PHYSICAL EXAMINATION SERVICE DATE: 02/16/2022 SERVICE TIME: 8:49 AM PRIMARY CARE PHYSICIAN: No primary care provider on file. REASON FOR VISIT: Hoang Dorado is a 46 year old male who [...] MEDICATIONS: Prior to Admission medications as of 02/16/22823 Medication Sig Last Dose Taking metroNIDAZOLE (FLAGYL) [...] year Neuro: No history of TIA's, stroke, INFORMATION TECHNOLOGY ASSISTANT tumor, impaired sensorium, hemiplegia, paraplegia or quadraplegia. No neurological symptoms or problems. Respiratory: No history of current cough or dyspnea, or pneumonia in the past 6 weeks. No history of respiratory/pulmonary symptoms or problems. Cardiovascular: +severe TR with right atrial and ventricular dilation Negative for Recent TX, Angina, Arrhythmia, CAD, Chest Pain GI: See [...] 412 QTC Calculation (Bazett) 421 Calculated P Republic 74 Calculated R Republic 121 Calculated T Republic 39 Impression NORMAL SINUS RHYTHM RIGHT AXIS DEVIATION LOW VOLTAGE QRS, CONSIDER PULMONARY DISEASE, PERICARDIAL EFFUSION, OR NORMAL VARIANT NONSPECIFIC INTRAVENTRICULAR CONDUCTION DELAY ABNORMAL ECG Confirmed by NORY HOLLEY MD ([id number]) on 01/20/2022 9:37:50 PM Recent Results (from the past 96840 hour(s)) ECHO Collection Time: 01/17/22 1:15 PM [...] instructions and voices comprehension and compliance. SIGNATURE: Aleksandra Lim PA-C PATIENT NAME: Hoang Dorado DATE: February 16, 2022 TIME: 8:57 AM documented in this encounter [facility] 02-16-2022 Instructions Aleksandra Lim PA-C - 02/16/2022 8:20 AM EDT PATIENT PREOPERATIVE INSTRUCTIONS Ana Enriqeuz MD has scheduled you for your procedure at this surgery center: [facility]: [phone] --[id number] [address]. Please check in on the 1st floor [...] Advance Directive, please fax a copy to [phone] or email to for it to be [...] and scanned into your chart that day. Aleksandra Lim PA-C documented in this encounter [facility] 02-11-2022 History of Present illness Narrative Images from the original note were not included. Radiation Oncology - New Patient/Consult Note PATIENT NAME: Hoang Dorado PATIENT Signed: Tylor Davalos MD I spent a total of 60 minutes on the date of the service which included preparing to see the patient, [id number] patient care and counseling and educating the patient/family/caregiver. This document has been created with the use of voice recognition technology. It may contain inaccuracies, misspellings, inaccurate syntax or inappropriate word context that are a result of the inadequacies/shortcomings of said technology/software. documented in this encounter [facility] 02-11-2022 Nurse Note Radiation Therapy - Patient Education Note PATIENT NAME: Hoang Dorado PATIENT February 11, 2022 [facility] FACILITY/LOCATION: [facility] READINESS TO LEARN Cognitive Ability: Alert and [...] need for social work, van service, and methods specialist engineer. Patient has had 30# weight loss over the last 7 months. I offered a nutritional consult and patient declined at this time but states he will think about it. Was approved? No Signed by: Fariba Mosley LPN documented in this encounter [facility] 02-10-2022 Miscellaneous Notes Called Jayce and informed him that our office will reach out and schedule an appointment to see Yolis Valentin NP for stoma education. Discussed his coivd kit and how to swab his nose before his procedure. He has his pre op instructions from clinic and has no questions or concerns at this time. documented in this encounter [facility] 02-07-2022 Miscellaneous Notes Called to update patient that he will be presented at the GI Tumor Board on and we will call after that with a final plan and he expressed understanding documented in this encounter [facility] 02-04-2022 Nurse Note Clinical questionnaires incomplete due to Nurse was Interrupted by provider during rooming process documented in this encounter [facility] 02-04-2022 History of Present illness Narrative Images from the original note were not included. PATIENT NAME: Hoang Dorado CLINIC NO.: [id number] ATTENDING PHYSICIAN: Oscar Gonzalez MD DATE OF SERVICE: February 04, [address] Ana Enriquez, here is an update on a follow up visit on male Hoang Dorado at the clinic 02/04/2022 Diagnosis: 1. Upper rectal cancer, MRI staged T4a,N+,M0- Mod Diff Adenocarcinoma ( DIANNE) 2. Severe TR ( ECHO 12/2021 at [facility]): - The left ventricle is normal [...] Previous h/o IVDA Treatment History: HPI: Hoang Dorado is a 46 year old year old [...] 02/04/2022 1.88 1.00 - 4.00 k/uL Final Kern% Date Value Ref Range Status 02/04/2022 8.1 % Final Abs Kern Date Value Ref Range Status 02/04/2022 0.66 [...] No. EMVI: Yes. Assessment and Plan: Hoang Dorado is a 46 year old year old [...] do not hesitate to contact me at [phone]. Oscar Gonzalez MD Hematology/Medical Oncology [facility] spent a total of 30 minutes on the date of the service which included preparing to see the patient, [id number] patient care, completing clinical documentation, obtaining and/or reviewing separately obtained history, performing a medically appropriate examination, counseling and educating the patient/family/caregiver, ordering medications, tests, or procedures and communicating with other HCPs (not separately reported). Medical Decision Making CC: Ana Enriquez MD documented in this encounter [facility] 02-04-2022 Miscellaneous Notes Paperwork faxed to [employer] @ [phone]. Ava Rodriguez documented in this encounter [facility] 02-04-2022 Miscellaneous Notes Orders placed for tumor board. 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 Niki Peterson MA Short term disability paperwork completed and placed in folder to be signed. Pt will need to fill out their portion so he will need to cloth picker paperwork when signed. Ava Rodriguez documented in this encounter [facility] 01-18-2022 Miscellaneous Notes Message left for patient to call office for message/instructions from doctor. Gissell Alvarez RN ----- Message from Charity Pichardo RN sent at 01/18/2022 1:00 PM EDT ----- ----- Message ----- From: Oscar Gonzalez MD Sent: 01/18/2022 11:06 AM EDT To: Charity Pichardo RN Please let him know that we will follow the the lung nodules. No metastatic disease and will await surgery and cardiology recs documented in this encounter [facility] 01-13-2022 History of Present illness Narrative Radiology Service Progress Note DATE OF SERVICE: January 13, 2022 TIME: 8:12 AM PATIENT WEIGHT: 135LBS PATIENT IDENTITY VERIFICATION COMPLETED USING TWO (2) [...] EXAM: CT -CONTRAST INDUCED NEPHROPATHY RISK FACTORS: Not applicable CREATININE: No results found for: CREAT, EGFROTH, EGFRAA P.O.C.T. RESULTS: N/A January 13, 2022 TREATMENT: N/A IV SITE: Ambulatory: A peripheral IV was started in the Right hand with a Angio cath: 22 gauge. IV SITE APPEARANCE: Clean,Dry and Intact SIGNATURE: Madelaine Pineda RN PATIENT NAME: Hoang Dorado DATE: January 13, 2022 TIME: 8:12 AM Radiology Service Progress Note PATIENT NAME: Hoang Dorado DATE OF SERVICE: January 13, 2022 TIME: 8:27 AM PATIENT IDENTITY VERIFICATION COMPLETED USING TWO (2) IDENTIFIERS: Name and Date of confirmed by patient verbally. FALL SCREENING: Has the patient had 2 falls in the last year or 1 fall with injury or currently using an Ambulatory Assistive Device (Walker, Cane, Wheelchair, Crutches, etc.)? No PATIENT GENDER DATA: Male PATIENT RELEVANT IMPLANT DATA REVIEWED: Not Applicable RADIOLOGY DEPARTMENT: CT; Exam(s) Completed: Chest Abdomen Pelvis With IV and Oral contrast PERIPHERAL IV DATA: Site assessment: Clean,Dry and Intact, Site disposition Discontinued SIGNED BY: RT Torsten(R) January 13, 2022 8:27 AM documented in this encounter [facility] Evaluation + Plan note No data available for this section [facility] Evaluation note Diagnosis Rectal mass Other symptoms involving digestive system Rectal mass Other symptoms involving digestive system [facility] Diagnosis Rectal cancer (HCC)- Primary Malignant neoplasm of rectum Rectal mass Other symptoms involving digestive system [facility] Diagnosis 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 Rectal mass Other symptoms involving digestive system [facility] Diagnosis Rectal cancer (HCC)- Primary Malignant neoplasm of rectum Pre-op exam- Primary Preoperative examination, unspecified Rectal mass Other symptoms involving digestive system Rectal mass Other symptoms involving digestive system [facility] Diagnosis Pre-op exam- Primary Preoperative examination, unspecified Rectal mass Other symptoms involving digestive system History of endocarditis Personal history of other diseases of circulatory system Severe tricuspid regurgitation Diseases of tricuspid valve Abnormality of right ventricle of heart History of intravenous drug abuse (HCC) Smoker Tobacco use disorder Rectal mass Other symptoms involving digestive system [facility] Diagnosis Rectal cancer (HCC)- Primary Malignant neoplasm of rectum [facility] Diagnosis 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 [facility] Diagnosis 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 [facility] Diagnosis 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 [facility] Diagnosis Rectal cancer (HCC)- [...] malaise and fatigue [facility] Diagnosis Malaise and fatigue Other malaise and fatigue [facility] Diagnosis Malignant neoplasm of rectum (HCC)- Primary Malignant neoplasm of rectum Lung nodules Other nonspecific abnormal finding of lung field [facility] Diagnosis Rectal cancer (HCC)- Primary Malignant neoplasm of rectum Malaise and fatigue Other malaise and fatigue [facility] Diagnosis Lung nodules Other nonspecific abnormal finding of lung field [facility] Diagnosis Rectal cancer (HCC)- Primary Malignant neoplasm of rectum [facility] Diagnosis Encounter for follow-up surveillance of rectal cancer- Primary Unspecified follow-up examination Malignant neoplasm of rectum (HCC) Malignant neoplasm of rectum Rectal cancer (HCC) Malignant neoplasm of rectum [facility] Diagnosis Pre-op evaluation- Primary [...] neoplasm of rectum [facility] Diagnosis Malignant neoplasm of rectum (HCC)- Primary Malignant neoplasm of rectum [facility] Diagnosis Acute post-operative pain- Primary High output ileostomy (HCC) Other symptoms involving digestive system [facility] Diagnosis Rectal cancer (HCC)- Primary Malignant neoplasm of rectum Encounter for follow-up surveillance of rectal cancer Unspecified follow-up examination Acute post-operative pain Attention to ileostomy (HCC) Attention to ileostomy Attention to ileostomy (HCC) Attention to ileostomy [facility] Diagnosis Encounter for follow-up surveillance of rectal cancer Unspecified follow-up examination Acute post-operative pain Attention to ileostomy (HCC) Attention to ileostomy [facility] Diagnosis Preop examination- Primary [...] Attention to ileostomy documented in this encounter [facility] note* Diagnosis Follow-up examination after colorectal surgery Follow-up examination, following other surgery Rectal cancer (HCC) Malignant neoplasm of rectum documented in this encounter [facility] note* Diagnosis Reducible left inguinal hernia- Primary Unilateral inguinal hernia without obstruction or gangrene, recurrence not specified documented in this encounter [facility] note* Diagnosis Pre-op evaluation- Primary Preoperative examination, unspecified History of intravenous drug abuse Hypothyroidism unspecified Smoker Tobacco use disorder Severe tricuspid regurgitation Diseases of tricuspid valve History of endocarditis Personal history of other diseases of circulatory system Acute deep vein thrombosis (DVT) of proximal vein of lower extremity, unspecified laterality (HCC) Preop examination- Primary Preoperative examination, unspecified History of endocarditis Personal history of other diseases of circulatory system Severe tricuspid regurgitation Diseases of tricuspid valve Former smoker Personal history of tobacco use, presenting hazards to health History of intravenous drug abuse Hypothyroidism unspecified Acute deep vein thrombosis (DVT) of proximal vein of lower extremity, unspecified laterality (HCC) Pre-op examination- Primary Preoperative examination, unspecified History of intravenous drug abuse Attention deficit hyperactivity disorder (ADHD), predominantly hyperactive type Rectal cancer (HCC) Malignant neoplasm of rectum Acute deep vein thrombosis (DVT) of proximal vein of lower extremity, unspecified laterality (HCC) Hypothyroidism unspecified Former smoker Personal history of tobacco use, presenting hazards to health History of endocarditis Personal history of other diseases of circulatory system Severe tricuspid regurgitation Diseases of tricuspid valve Unilateral inguinal hernia without obstruction or gangrene, recurrence not specified * Assessment & Plan Note - Darío Stratton APRN.HOSIERY MENDER - 06/23/2024 10:03 AM EDT Associated Problem(s): Severe tricuspid regurgitation Assessment: stable and asymptomatic today. This was a virtual visit, and as such was unable to auscultate. Patient states pulse is regular. Was previously optimized by Dr. Lockett for colectomy in 2021: He should proceed without further diagnostic work-up from a cardiovascular perspective at this timebut I will see him closely after resection and decision making on treatment of his colon cancer andproceed in terms of further evaluation/treatment, possibly surgical opinion afterward in 4 months. Unfortunately there was no follow up after GI surgery. Mr. Dorado presently has an inguinal hernia that is causing him a good deal of discomfort. He attempted to have surgery at [facility] but he was declined due to cardiac imaging results. Dr. Chavez at [facility] recommended obtaining Cardiac MRI to assess RV given severe enlargement and severe RV dysfunction He had a meeting with Corporate Health Consultant Dr. Duffy at the [facility] on 05/13/24 to discuss theresults of mn 05/01/24 Cardiac MRI: I discussed the patient's case with our autocad designer Dr. An. Dr. An thinks that patient probably will need to repeat cardiac MRI at [facility] for more decisive differentiation if the signal abnormality in the RV free wall is related to fatty infiltration. In the light of semiurgency of the surgery he would like to see him tomorrow in his clinic to discuss further workup and options of management. Unfortunately the patient was unable to see Dr. An as mentioned above. * Assessment & Plan Note - Darío Stratton APRN.CNP - 06/23/2024 9:54 AM EDT Associated Problem(s): History of endocarditis Assessment: history of endocarditis over 15 years ago due to IV drug use. No other instance. * Assessment & Plan Note - Darío Stratton APRN.CNP - 06/23/2024 9:53 AM EDT Associated Problem(s): Former smoker Assessment: reports that he quit smoking about 19 months ago. His smoking use included cigarettes. He started smoking about 26 years ago. He has a 12.5 pack- year smoking history. He has never used smokeless tobacco. * Assessment & Plan Note - Darío Stratton APRN.CNP - 06/23/2024 9:53 AM EDT Associated Problem(s): Hypothyroidism unspecified Assessment: stable with current medication regimen * Assessment & Plan Note - Darío Stratton APRN.CNP - 06/23/2024 9:52 AM EDT Associated Problem(s): DVT (deep venous thrombosis) (HCC) Assessment: states one instance 10 years ago, completed course of warfarin, no recurrence * Assessment & Plan Note - Darío Stratton APRN.CNP - 06/23/2024 9:52 AM EDT Associated Problem(s): Rectal cancer (HCC) Assessment: resolved. s/p colectomy 2021, reversal of ostomy 2021 with [facility]. * Assessment & Plan Note - Darío Stratton APRN.CNP - 06/23/2024 9:51 AM EDT Associated Problem(s): Attention deficit hyperactivity disorder (ADHD), predominantly hyperactive type Assessment: stable without meds * Assessment & Plan Note - Darío Stratton APRN.CNP - 06/23/2024 9:51 AM EDT Associated Problem(s): History of intravenous drug abuse Assessment: h/o of heroin use, clean since 2015 [facility] Pre-op evaluation- Primary Preoperative examination, unspecified History of intravenous drug abuse Hypothyroidism unspecified Smoker Tobacco use disorder Severe tricuspid regurgitation Diseases of tricuspid valve History of endocarditis Personal history of other diseases of circulatory system Acute deep vein thrombosis (DVT) of proximal vein of lower extremity, unspecified laterality (HCC) Preop examination- Primary Preoperative examination, unspecified History of endocarditis Personal history of other diseases of circulatory system Severe tricuspid regurgitation Diseases of tricuspid valve Former smoker Personal history of tobacco use, presenting hazards to health History of intravenous drug abuse Hypothyroidism unspecified Acute deep vein thrombosis (DVT) of proximal vein of lower extremity, unspecified laterality (HCC) Pre-op examination- Primary Preoperative examination, unspecified History of intravenous drug abuse Attention deficit hyperactivity disorder (ADHD), predominantly hyperactive type Rectal cancer (HCC) Malignant neoplasm of rectum Acute deep vein thrombosis (DVT) of proximal vein of lower extremity, unspecified laterality (HCC) Hypothyroidism unspecified Former smoker Personal history of tobacco use, presenting hazards to health History of endocarditis Personal history of other diseases of circulatory system Severe tricuspid regurgitation Diseases of tricuspid valve Abnormality of right ventricle of heart - Enlarged- Primary Nonrheumatic tricuspid valve regurgitation Tricuspid valve disorders, specified as nonrheumatic Depressed left ventricular ejection fraction Other nonspecific abnormal cardiovascular system function study Preoperative cardiovascular examination Pre-operative cardiovascular examination History of endocarditis Personal history of other diseases of circulatory system 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 Secondary pulmonary arterial hypertension (HCC) Elevated blood pressure reading Elevated blood pressure reading without diagnosis of hypertension Pre-op examination Preoperative examination, unspecified Unilateral inguinal hernia without obstruction or gangrene, recurrence not specified * Assessment & Plan Note - Mickie Graham MD - 06/25/2024 10:16 AM EDT Associated Problem(s): Depressed left ventricular ejection fraction Conflicting data between echo and MRI with the echo in February showing normal ejection fraction and cardiac MRI showing low normal to mild decrease with an EF of 50% Clinically he is asymptomatic and not in heart failure. Will need follow-up evaluation on future outpatient visits * Assessment & Plan Note - Mikcie Graham MD - 06/25/2024 10:16 AM EDT Associated Problem(s): 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 No recurrence * Assessment & Plan Note - Mickie Graham MD - 06/25/2024 10:16 AM EDT Associated Problem(s): Severe tricuspid regurgitation Conflicting data with echocardiogram in February suggesting moderate to severe regurgitation and cardiacMRI in April only indicating mild regurgitation. Either way suspect this to be secondary to RV dilatation. * Assessment & Plan Note - Mickie Graham MD - 06/25/2024 10:16 AM EDT Associated Problem(s): Abnormality of right ventricle of heart Severe based on echo and more recently cardiac MRI Severe dysfunction also noted based on echo done in February of this year Unclear etiology * Assessment & Plan Note - Mickie Graham MD - 06/25/2024 10:16 AM EDT Associated Problem(s): Arrhythmogenic right ventricular dysplasia (HCC) Suspected based on recent MRI in [place] although inconclusive diagnosis No history of syncope No family history of sudden cardiac This needs to be further investigated however given the severity of his hernia symptoms, it can be done on future follow-up * Assessment & Plan Note - Mickie Graham MD - 06/25/2024 10:16 AM EDT Associated Problem(s): Secondary pulmonary arterial hypertension (HCC) Most recent echocardiogram only showing mild elevation of RVSP at 38 mmHg Tricuspid regurgitation, RV dilatation, and history of provoked single episode of pulmonary embolism all noted. Etiology unclear but significant variability in estimated RVSP noted. Probably needs a repeat echocardiogram in the [facility] system on future follow-up. [facility] Diagnosis Malignant neoplasm of rectum (HCC) Malignant neoplasm of rectum Pre-op evaluation- Primary Preoperative examination, unspecified History of intravenous drug abuse Hypothyroidism unspecified Smoker Tobacco use disorder Severe tricuspid regurgitation Diseases of tricuspid valve History of endocarditis Personal history of other diseases of circulatory system Acute deep vein thrombosis (DVT) of proximal vein of lower extremity, unspecified laterality (HCC) Preop examination- Primary Preoperative examination, unspecified History of endocarditis Personal history of other diseases of circulatory system Severe tricuspid regurgitation Diseases of tricuspid valve Former smoker Personal history of tobacco use, presenting hazards to health History of intravenous drug abuse Hypothyroidism unspecified Acute deep vein thrombosis (DVT) of proximal vein of lower extremity, unspecified laterality (HCC) Pre-op examination- Primary Preoperative examination, unspecified History of intravenous drug abuse Attention deficit hyperactivity disorder (ADHD), predominantly hyperactive type Rectal cancer (HCC) Malignant neoplasm of rectum Acute deep vein thrombosis (DVT) of proximal vein of lower extremity, unspecified laterality (HCC) Hypothyroidism unspecified Former smoker Personal history of tobacco use, presenting hazards to health History of endocarditis Personal history of other diseases of circulatory system Severe tricuspid regurgitation Diseases of tricuspid valve Abnormality of right ventricle of heart - Enlarged- Primary Nonrheumatic tricuspid valve regurgitation Tricuspid valve disorders, specified as nonrheumatic Depressed left ventricular ejection fraction Other nonspecific abnormal cardiovascular system function study Preoperative cardiovascular examination Pre-operative cardiovascular examination History of endocarditis Personal history of other diseases of circulatory system 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 Secondary pulmonary arterial hypertension (HCC) Elevated blood pressure reading Elevated blood pressure reading without diagnosis of hypertension Pre-op examination Preoperative examination, unspecified History of endocarditis Personal history of other diseases of circulatory system Nonrheumatic tricuspid valve regurgitation Tricuspid valve disorders, specified as nonrheumatic Abnormality of right ventricle of heart - Enlarged [facility] Diagnosis Malignant neoplasm of rectum (HCC) Malignant neoplasm of rectum Pre-op evaluation- Primary Preoperative examination, unspecified History of intravenous drug abuse Hypothyroidism unspecified Smoker Tobacco use disorder Severe tricuspid regurgitation Diseases of tricuspid valve History of endocarditis Personal history of other diseases of circulatory system Acute deep vein thrombosis (DVT) of proximal vein of lower extremity, unspecified laterality (HCC) Preop examination- Primary Preoperative examination, unspecified History of endocarditis Personal history of other diseases of circulatory system Severe tricuspid regurgitation Diseases of tricuspid valve Former smoker Personal history of tobacco use, presenting hazards to health History of intravenous drug abuse Hypothyroidism unspecified Acute deep vein thrombosis (DVT) of proximal vein of lower extremity, unspecified laterality (HCC) Pre-op examination- Primary Preoperative examination, unspecified History of intravenous drug abuse Attention deficit hyperactivity disorder (ADHD), predominantly hyperactive type Rectal cancer (HCC) Malignant neoplasm of rectum Acute deep vein thrombosis (DVT) of proximal vein of lower extremity, unspecified laterality (HCC) Hypothyroidism unspecified Former smoker Personal history of tobacco use, presenting hazards to health History of endocarditis Personal history of other diseases of circulatory system Severe tricuspid regurgitation Diseases of tricuspid valve Abnormality of right ventricle of heart - Enlarged- Primary Nonrheumatic tricuspid valve regurgitation Tricuspid valve disorders, specified as nonrheumatic Depressed left ventricular ejection fraction Other nonspecific abnormal cardiovascular system function study Preoperative cardiovascular examination Pre-operative cardiovascular examination History of endocarditis Personal history of other diseases of circulatory system 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 Secondary pulmonary arterial hypertension (HCC) Elevated blood pressure reading Elevated blood pressure reading without diagnosis of hypertension Pre-op examination Preoperative examination, unspecified History of endocarditis Personal history of other diseases of circulatory system Nonrheumatic tricuspid valve regurgitation Tricuspid valve disorders, specified as nonrheumatic Abnormality of right ventricle of heart - Enlarged [facility] Diagnosis 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 Pre-op evaluation- Primary Preoperative examination, unspecified History of intravenous drug abuse Hypothyroidism unspecified Smoker Tobacco use disorder Severe tricuspid regurgitation Diseases of tricuspid valve History of endocarditis Personal history of other diseases of circulatory system Acute deep vein thrombosis (DVT) of proximal vein of lower extremity, unspecified laterality (HCC) Preop examination- Primary Preoperative examination, unspecified History of endocarditis Personal history of other diseases of circulatory system Severe tricuspid regurgitation Diseases of tricuspid valve Former smoker Personal history of tobacco use, presenting hazards to health History of intravenous drug abuse Hypothyroidism unspecified Acute deep vein thrombosis (DVT) of proximal vein of lower extremity, unspecified laterality (HCC) Pre-op examination- Primary Preoperative examination, unspecified History of intravenous drug abuse Attention deficit hyperactivity disorder (ADHD), predominantly hyperactive type Rectal cancer (HCC) Malignant neoplasm of rectum Acute deep vein thrombosis (DVT) of proximal vein of lower extremity, unspecified laterality (HCC) Hypothyroidism unspecified Former smoker Personal history of tobacco use, presenting hazards to health History of endocarditis Personal history of other diseases of circulatory system Severe tricuspid regurgitation Diseases of tricuspid valve [facility] Diagnosis Attention deficit hyperactivity disorder (ADHD), predominantly hyperactive type (CMS/HCC)- Primary Long-term current use of high risk medication other than anticoagulant Mixed incontinence urge and stress Mixed incontinence urge and stress (male)(female) Tobacco dependence due to cigarettes Opioid abuse, uncomplicated (CMS/HCC) documented [facility]* Diagnosis Pre-op evaluation- Primary Preoperative examination, unspecified History of intravenous drug abuse Hypothyroidism unspecified Smoker Tobacco use disorder Severe tricuspid regurgitation Diseases of tricuspid valve History of endocarditis Personal history of other diseases of circulatory system Acute deep vein thrombosis (DVT) of proximal vein of lower extremity, unspecified laterality (HCC) Preop examination- Primary Preoperative examination, unspecified History of endocarditis Personal history of other diseases of circulatory system Severe tricuspid regurgitation Diseases of tricuspid valve Former smoker Personal history of tobacco use, presenting hazards to health History of intravenous drug abuse Hypothyroidism unspecified Acute deep vein thrombosis (DVT) of proximal vein of lower extremity, unspecified laterality (HCC) Pre-op examination- Primary Preoperative examination, unspecified History of intravenous drug abuse Attention deficit hyperactivity disorder (ADHD), predominantly hyperactive type Rectal cancer (HCC) Malignant neoplasm of rectum Acute deep vein thrombosis (DVT) of proximal vein of lower extremity, unspecified laterality (HCC) Hypothyroidism unspecified Former smoker Personal history of tobacco use, presenting hazards to health History of endocarditis Personal history of other diseases of circulatory system Severe tricuspid regurgitation Diseases of tricuspid valve Abnormality of right ventricle of heart - Enlarged- Primary Nonrheumatic tricuspid valve regurgitation Tricuspid valve disorders, specified as nonrheumatic Depressed left ventricular ejection fraction Other nonspecific abnormal cardiovascular system function study Preoperative cardiovascular examination Pre-operative cardiovascular examination History of endocarditis Personal history of other diseases of circulatory system 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 Secondary pulmonary arterial hypertension (HCC) Elevated blood pressure reading Elevated blood pressure reading without diagnosis of hypertension Pre-op examination Preoperative examination, unspecified Primary hypertension- Primary Unspecified essential hypertension [facility]* Diagnosis Attention deficit hyperactivity disorder (ADHD), predominantly hyperactive type (CMS/HCC) [facility] Dis[facility] instructions No data available for this section [facility] progress note No data available for this section [facility] (narrative)* Outpatient Procedure (Routine) - Authorized Specialty Diagnoses / Procedures Referred By Contac t Referred To Contact [facility] Diagnoses Follow-up examination after colorectal surgery Rectal cancer (HCC) Procedures SIGMOIDOSCOPY SIGMOIDOSCOPY FLX DX W/COLLJ SPEC BR/[place] [address] [place] [address] [facility] [address] [place] [address] Referral ID Status Reason Start Date Expiration Date Visits Requested Visits Authorized [id number] Authorized Auto-Generat ed Referral 05/25/2022 05/24/2023 1 1 T [facility] for referral (narrative)* Diagnostic Procedure Only (Routine) - Authorized Specialty Diagnoses / Procedures Referred By Contac t Referred To Contact XR IMAGING Diagnoses Encounter for follow-up surveillance of rectal cancer Acute post-operative pain Procedures XR COLON SINGLE CONTRAST RADIOLOGIC EXAM [place] [address] [place] [id number] Xr Imaging Referral ID Status Reason Start Date Expiration Date Visits Requested Visits Authorized [id number] Authorized Auto-Generat ed Referral 01/17/2023 02/16/2024 1 1 T [facility] for referral (narrative)* Diagnostic Procedure Only (Routine) - Closed Specialty Diagnoses / Procedures Referred By Contac t Referred To Contact XR IMAGING Diagnoses Encounter for follow-up surveillance of rectal cancer Acute post-operative pain Procedures XR COLON SINGLE CONTRAST RADIOLOGIC EXAM [place]ON [place] [address] [place] [address] Xr Imaging Referral ID Status Reason Start Date Expiration Date V isits Requested Visits Authorized [id number] Closed Auto-Generate d Referral 01/17/2023 02/16/2024 1 1 [facility] for referral (narrative)* Outpatient Procedure (Routine) - Closed Specialty Diagnoses / Procedures Referred By Contac t Referred To Contact [facility] Diagnoses Follow-up examination after colorectal surgery Rectal cancer (HCC) Procedures SIGMOIDOSCOPY SIGMOIDOSCOPY FLX DX W/COLLJ [place] BR/[place] [address] [place] [address] [facility] [address] [place] [address] Referral ID Status Reason Start Date Expiration Date V isits Requested Visits Authorized [id number] Closed Auto-Generate d Referral 05/25/2022 05/24/2023 1 1 [facility] for referral (narrative)* Consultation (Routine) - Authorized Specialty Diagnoses / Procedures Referred By Contac t Referred To Contact Urology Diagnoses Mixed incontinence urge and stress Procedures VT OFFICE/OUTPATIENT NEW HIGH MDM 60 MINUTES Esther Workman NP [address] [place] [address] Tuan Mcarthur MD [address] [place] [address] Referral ID Status Reason Start Date Expiration Date Visits Requested Visits Authorized [id number] Authorized Specialty Services Required 08/05/2024 02/01/2025 1 1 * Consultation (Routine) - Pending Review Specialty Diagnoses / Procedures Referred By Contac t Referred To Contact [facility] Diagnoses Attention deficit hyperactivity disorder (ADHD), predominantly hyperactive type (CMS/HCC) Procedures VT OFFICE/OUTPATIENT NEW HIGH MDM 60 MINUTES Esther Workman NP [address] [place] [address] Kelly Prieto NP [address] [address] Referral ID Status Reason Start Date Expiration Date Visits Requested Visits Authorized [id number] Pending Review Specialty Services Required 08/05/2024 02/01/2025 1 1 Scheduling Instructions Please include OV note from today 08/05/24 [facility] for visit Narrative* Diagnostic Procedure Only (Routine) - Closed Specialty Diagnoses / Procedures Referred By Contac t Referred To Contact XR IMAGING Diagnoses Encounter for follow-up surveillance of rectal cancer Acute post-operative pain Procedures XR COLON SINGLE CONTRAST RADIOLOGIC EXAM COLON [place] [address] [place] [address] Xr Imaging Referral ID Status Reason Start Date Expiration Date V isits Requested Visits Authorized [id number] Closed Auto-Generate d Referral 01/17/2023 02/16/2024 1 1 [facility] for visit Narrative* Outpatient Procedure (Routine) - Closed Specialty Diagnoses / Procedures Referred By Kavon servin Referred To Contact [facility] Diagnoses Follow-up examination after colorectal surgery Rectal cancer (HCC) Procedures SIGMOIDOSCOPY SIGMOIDOSCOPY FLX DX W/COLLJ SPEC BR/[place] [address] [place] [address] [facility] [address] [place] [address] Referral ID Status Reason Start Date Expiration Date V isits Requested Visits Authorized [id number] Closed Auto-Generate d Referral 05/25/2022 05/24/2023 1 1 [facility] Summary Purpose Family History No Family History Records FoundNo Family History Records FoundNo Family History Records FoundNo Family History Records FoundNo Family History Records FoundNo Family History Records FoundNo Family History Records FoundNo Family History Records FoundNo Family History Records Found No data available for this section No Family History Records Found Advance Directives Documents on File Type Date Recorded Patient Return To Service Inspector Expl anation Advance Directive(s) 02/21/2022 8:46 AM Documents on File Type Date Recorded Patient Return To Service Inspector Expl anation Advance Directive(s) 02/21/2022 8:46 AM Reason for Referral Specialty Diagnoses / Procedures Referred By Contac t Referred To Contact MR IMAGING Diagnoses Rectal mass Procedures MRI RECTUM WO/W IVCON MRI PELVIS W/O & W/[place] [address] [place] [address] Mr Imaging Referral ID Status Reason Start Date Expiration Date V isits Requested Visits Authorized [id number] Closed Auto-Generate d Referral 01/24/2022 02/22/2022 1 1 Specialty Diagnoses / Procedures Referred By Contac t Referred To Contact MR IMAGING Diagnoses Malignant neoplasm of rectum (HCC) Procedures MRI RECTUM WO/W IVCON MRI PELVIS W/O & W/CONTRAST MATERIAL Oscar Gonzalez MD [facility] [place] [address] Mr Imaging Referral ID Status Reason Start Date Expiration Date Visits Requested Visits Authorized [id number] Pending Review Auto-Generat ed Referral 05/17/2022 05/12/2023 1 1 Referral ID Status Reason Start Date Expiration Date V isits Requested Visits Authorized [id number] Closed Auto-Generate d Referral 04/18/2022 05/17/2022 1 1 Specialty Diagnoses / Procedures Referred By Contac t Referred To Contact CT IMAGING Diagnoses Lung nodules Procedures CT CHEST W IVCON DIAGNOSTIC COMPUTED TOMOGRAPHY THORAX W/CONTRAST Temi Ramirez PA-C [address] [place] [address] [place] [address] Ct Imaging Referral ID Status Reason Start Date Expiration Date Visits Requested Visits Authorized [id number] Pending Review Auto-Generat ed Referral 09/25/2023 1 1 Specialty Diagnoses / Procedures Referred By Contac t Referred To Contact MR IMAGING Diagnoses Malignant neoplasm of rectum (HCC) Procedures MRI RECTUM WO/W IVCON MRI PELVIS W/O & W/CONTRAST MATERIAL Temi Ramirez PA-C [facility] [place] [facility] [place] [address] Mr Imaging Referral ID Status Reason Start Date Expiration Date Visits Requested Visits Authorized [id number] Pending Review Auto-Generat ed Referral 09/25/2023 1 1 Referral ID Status Reason Start Date Expiration Date V isits Requested Visits Authorized [id number] Closed Auto-Generate d Referral 08/26/2022 10/01/2022 1 1 Specialty Diagnoses / Procedures Referred By Contac t Referred To Contact CT IMAGING Diagnoses Malignant neoplasm of rectum (HCC) Procedures CT ABD/PEL W IVCON CT ABD & PELVIS W/[place] [address] [place] [address] Ct Imaging Referral ID Status Reason Start Date Expiration Date Visits Requested Visits Authorized [id number] Authorized Auto-Generat ed Referral 10/04/2022 11/03/2022 1 1 Specialty Diagnoses / Procedures Referred By Contac t Referred To Contact [facility] Diagnoses History of endocarditis Nonrheumatic tricuspid valve regurgitation Abnormality of right ventricle of heart Procedures CARDIOVASCULAR MEDICINE [place] [address] [place] [address] [facility] [address] [place] [address] Referral ID Status Reason Start Date Expiration Date Visits Requested Visits Authorized [id number] Ref Not Required PCP Requested Referral 07/26/2024 06/25/2025 1 1 Specialty Diagnoses / Procedures Referred By Contac t Referred To Contact CT IMAGING Diagnoses Malignant neoplasm of rectum (HCC) Procedures CT ABD/PEL W IVCON CT ABD & PELVIS W/[place] [address] [place] [address] [place] [id number] Referral ID Status Reason Start Date Expiration Date V isits Requested Visits Authorized [id number] Closed Auto-Generate d Referral 10/04/2022 11/03/2022 1 1 Specialty Diagnoses / Procedures Referred By Contac t Referred To Contact MR IMAGING Diagnoses Malignant neoplasm of rectum (HCC) Procedures MRI RECTUM WO/W IVCON MRI PELVIS W/O & W/CONTRAST MATERIAL Temi Ramirez PA-C [address] [place] [id number] [place] [address] Referral ID Status Reason Start Date Expiration Date V isits Requested Visits Authorized [id number] Closed Auto-Generate d Referral 08/26/2022 10/01/2022 1 1 Specialty Diagnoses / Procedures Referred By Contac t Referred To Contact CT IMAGING Diagnoses Malignant neoplasm of rectosigmoid junction (HCC) Procedures CT CHEST W IVCON DIAGNOSTIC COMPUTED TOMOGRAPHY THORAX W/CONTRAST Oscar Gonzalez MD [address] [place] [address] [address] [id number] Referral ID Status Reason Start Date Expiration Date V isits Requested Visits Authorized [id number] Closed Auto-Generate d Referral 01/05/2022 01/28/2022 1 1 Specialty Diagnoses / Procedures Referred By Contac t Referred To Contact CT IMAGING Diagnoses Malignant neoplasm of rectosigmoid junction (HCC) Procedures CT ABD/PEL W IVCON CT ABD & PELVIS W/CONTRAST Oscar Gonzalez MD [address] [place] [address] [address] [place] [address] Referral ID Status Reason Start Date Expiration Date V isits Requested Visits Authorized [id number] Closed Auto-Generate d Referral 01/05/2022 01/28/2022 1 1 Medications Administered Section Inactive Administered [...] section and content) DATE CREATED AUTHOR 01/17/2022 [facility] DATE CREATED AUTHOR AUTHOR'S ORGANIZ ATION 08/22/2022 [facility] DATE CREATED AUTHOR AUTHOR'S ORGANIZ ATION 10/20/2022 [facility] DATE CREATED AUTHOR AUTHOR'S ORGANIZ ATION 02/03/2023 [facility] DATE CREATED AUTHOR AUTHOR'S ORGANIZ ATION 06/08/2024 [facility] DATE CREATED AUTHOR AUTHOR'S ORGANIZ ATION 07/10/2024 [facility] DATE CREATED AUTHOR AUTHOR'S ORGANIZ ATION 08/06/2024 [facility] DATE CREATED AUTHOR AUTHOR'S ORGANIZ ATION 08/09/2024 [facility] DATE CREATED AUTHOR AUTHOR'S ORGANIZ ATION 08/16/2024 [facility] DATE CREATED AUTHOR AUTHOR'S ORGANIZ ATION 08/31/2024 [facility] Source Comments (unrecognize d section and content) In the event this informatio n is protected by the Federal Confidentiality of Alcohol and Drug Abuse Patient Records regulations: The Federal rules restrict any use of the information to criminally investigate or prosecute any alcohol or drug abuse patient.[facility] the event this information is protected by the Federal Confidentiality of Alcohol and Drug Abuse Patient Records regulations: The Federal rules restrict any use of the information to criminally investigate or prosecute any alcohol or drug abuse patient.[facility] the event this information is protected by the Federal Confidentiality of Alcohol and Drug Abuse Patient Records regulations: The Federal rules restrict any use of the information to criminally investigate or prosecute any alcohol or drug abuse patient.[facility] the event this information is protected by the Federal Confidentiality of Alcohol and Drug Abuse Patient Records regulations: The Federal rules restrict any use of the information to criminally investigate or prosecute any alcohol or drug abuse patient.[facility] the event this information is protected by the Federal Confidentiality of Alcohol and Drug Abuse Patient Records regulations: The Federal rules restrict any use of the information to criminally investigate or prosecute any alcohol or drug abuse patient.[facility] the event this information is protected by the Federal Confidentiality of Alcohol and Drug Abuse Patient Records regulations: The Federal rules restrict any use of the information to criminally investigate or prosecute any alcohol or drug abuse patient.[facility] the event this information is protected by the Federal Confidentiality of Alcohol and Drug Abuse Patient Records regulations: The Federal rules restrict any use of the information to criminally investigate or prosecute any alcohol or drug abuse patient.[facility] the event this information is protected by the Federal Confidentiality of Alcohol and Drug Abuse Patient Records regulations: The Federal rules restrict any use of the information to criminally investigate or prosecute any alcohol or drug abuse patient.[facility] the event this information is protected by the Federal Confidentiality of Alcohol and Drug Abuse Patient Records regulations: The Federal rules restrict any use of the information to criminally investigate or prosecute any alcohol or drug abuse patient.[facility] the event this information is protected by the Federal Confidentiality of Alcohol and Drug Abuse Patient Records regulations: The Federal rules restrict any use of the information to criminally investigate or prosecute any alcohol or drug abuse patient.[facility] the event this information is protected by the Federal Confidentiality of Alcohol and Drug Abuse Patient Records regulations: The Federal rules restrict any use of the information to criminally investigate or prosecute any alcohol or drug abuse patient.[facility] the event this information is protected by the Federal Confidentiality of Alcohol and Drug Abuse Patient Records regulations: The Federal rules restrict any use of the information to criminally investigate or prosecute any alcohol or drug abuse patient.[facility] the event this information is protected by the Federal Confidentiality of Alcohol and Drug Abuse Patient Records regulations: The Federal rules restrict any use of the information to criminally investigate or prosecute any alcohol or drug abuse patient.[facility] Hospital[facility] the event this information is protected by the Federal Confidentiality of Alcohol and Drug Abuse Patient Records regulations: The Federal rules restrict any use of the information to criminally investigate or prosecute any alcohol or drug abuse patient.[facility] the event this information is protected by the Federal Confidentiality of Alcohol and Drug Abuse Patient Records regulations: The Federal rules restrict any use of the information to criminally investigate or prosecute any alcohol or drug abuse patient.[facility] the event this information is protected by the Federal Confidentiality of Alcohol and Drug Abuse Patient Records regulations: The Federal rules restrict any use of the information to criminally investigate or prosecute any alcohol or drug abuse patient.[facility] HospitalIn the event this information is protected by the Federal Confidentiality of Alcohol and Drug Abuse Patient Records regulations: The Federal rules restrict any use of the information to criminally investigate or prosecute any alcohol or drug abuse patient.[facility] HospitalIn the event this information is protected by the Federal Confidentiality of Alcohol and Drug Abuse Patient Records regulations: The Federal rules restrict any use of the information to criminally investigate or prosecute any alcohol or drug abuse patient.[facility] HospitalIn the event this information is protected by the Federal Confidentiality of Alcohol and Drug Abuse Patient Records regulations: The Federal rules restrict any use of the information to criminally investigate or prosecute any alcohol or drug abuse patient.[facility] HospitalIn the event this information is protected by the Federal Confidentiality of Alcohol and Drug Abuse Patient Records regulations: The Federal rules restrict any use of the information to criminally investigate or prosecute any alcohol or drug abuse patient.[facility] HospitalIn the event this information is protected by the Federal Confidentiality of Alcohol and Drug Abuse Patient Records regulations: The Federal rules restrict any use of the information to criminally investigate or prosecute any alcohol or drug abuse patient.[facility] HospitalIn the event this information is protected by the Federal Confidentiality of Alcohol and Drug Abuse Patient Records regulations: The Federal rules restrict any use of the information to criminally investigate or prosecute any alcohol or drug abuse patient.[facility] HospitalIn the event this information is protected by the Federal Confidentiality of Alcohol and Drug Abuse Patient Records regulations: The Federal rules restrict any use of the information to criminally investigate or prosecute any alcohol or drug abuse patient.[facility] HospitalIn the event this information is protected by the Federal Confidentiality of Alcohol and Drug Abuse Patient Records regulations: The Federal rules restrict any use of the information to criminally investigate or prosecute any alcohol or drug abuse patient.[facility] HospitalIn the event this information is protected by the Federal Confidentiality of Alcohol and Drug Abuse Patient Records regulations: The Federal rules restrict any use of the information to criminally investigate or prosecute any alcohol or drug abuse patient.[facility] HospitalIn the event this information is protected by the Federal Confidentiality of Alcohol and Drug Abuse Patient Records regulations: The Federal rules restrict any use of the information to criminally investigate or prosecute any alcohol or drug abuse patient.[facility] HospitalIn the event this information is protected by the Federal Confidentiality of Alcohol and Drug Abuse Patient Records regulations: The Federal rules restrict any use of the information to criminally investigate or prosecute any alcohol or drug abuse patient.[facility] HospitalIn the event this information is protected by the Federal Confidentiality of Alcohol and Drug Abuse Patient Records regulations: The Federal rules restrict any use of the information to criminally investigate or prosecute any alcohol or drug abuse patient.[facility] HospitalIn the event this information is protected by the Federal Confidentiality of Alcohol and Drug Abuse Patient Records regulations: The Federal rules restrict any use of the information to criminally investigate or prosecute any alcohol or drug abuse patient.[facility] HospitalIn the event this information is protected by the Federal Confidentiality of Alcohol and Drug Abuse Patient Records regulations: The Federal rules restrict any use of the information to criminally investigate or prosecute any alcohol or drug abuse patient.[facility] HospitalIn the event this information is protected by the Federal Confidentiality of Alcohol and Drug Abuse Patient Records regulations: The Federal rules restrict any use of the information to criminally investigate or prosecute any alcohol or drug abuse patient.[facility] HospitalIn the event this information is protected by the Federal Confidentiality of Alcohol and Drug Abuse Patient Records regulations: The Federal rules restrict any use of the information to criminally investigate or prosecute any alcohol or drug abuse patient.[facility] HospitalIn the event this information is protected by the Federal Confidentiality of Alcohol and Drug Abuse Patient Records regulations: The Federal rules restrict any use of the information to criminally investigate or prosecute any alcohol or drug abuse patient.[facility] HospitalIn the event this information is protected by the Federal Confidentiality of Alcohol and Drug Abuse Patient Records regulations: The Federal rules restrict any use of the information to criminally investigate or prosecute any alcohol or drug abuse patient.[facility] HospitalIn the event this information is protected by the Federal Confidentiality of Alcohol and Drug Abuse Patient Records regulations: The Federal rules restrict any use of the information to criminally investigate or prosecute any alcohol or drug abuse patient.[facility] HospitalIn the event this information is protected by the Federal Confidentiality of Alcohol and Drug Abuse Patient Records regulations: The Federal rules restrict any use of the information to criminally investigate or prosecute any alcohol or drug abuse patient.[facility] HospitalIn the event this information is protected by the Federal Confidentiality of Alcohol and Drug Abuse Patient Records regulations: The Federal rules restrict any use of the information to criminally investigate or prosecute any alcohol or drug abuse patient.[facility] HospitalIn the event this information is protected by the Federal Confidentiality of Alcohol and Drug Abuse Patient Records regulations: The Federal rules restrict any use of the information to criminally investigate or prosecute any alcohol or drug abuse patient.[facility] HospitalIn the event this information is protected by the Federal Confidentiality of Alcohol and Drug Abuse Patient Records regulations: The Federal rules restrict any use of the information to criminally investigate or prosecute any alcohol or drug abuse patient.[facility] HospitalIn the event this information is protected by the Federal Confidentiality of Alcohol and Drug Abuse Patient Records regulations: The Federal rules restrict any use of the information to criminally investigate or prosecute any alcohol or drug abuse patient.[facility] HospitalIn the event this information is protected by the Federal Confidentiality of Alcohol and Drug Abuse Patient Records regulations: The Federal rules restrict any use of the information to criminally investigate or prosecute any alcohol or drug abuse patient.[facility] HospitalIn the event this information is protected by the Federal Confidentiality of Alcohol and Drug Abuse Patient Records regulations: The Federal rules restrict any use of the information to criminally investigate or prosecute any alcohol or drug abuse patient.[facility] HospitalIn the event this information is protected by the Federal Confidentiality of Alcohol and Drug Abuse Patient Records regulations: The Federal rules restrict any use of the information to criminally investigate or prosecute any alcohol or drug abuse patient.[facility] HospitalIn the event this information is protected by the Federal Confidentiality of Alcohol and Drug Abuse Patient Records regulations: The Federal rules restrict any use of the information to criminally investigate or prosecute any alcohol or drug abuse patient.[facility] HospitalIn the event this information is protected by the Federal Confidentiality of Alcohol and Drug Abuse Patient Records regulations: The Federal rules restrict any use of the information to criminally investigate or prosecute any alcohol or drug abuse patient.[facility] HospitalIn the event this information is protected by the Federal Confidentiality of Alcohol and Drug Abuse Patient Records regulations: The Federal rules restrict any use of the information to criminally investigate or prosecute any alcohol or drug abuse patient.[facility] HospitalIn the event this information is protected by the Federal Confidentiality of Alcohol and Drug Abuse Patient Records regulations: The Federal rules restrict any use of the information to criminally investigate or prosecute any alcohol or drug abuse patient.[facility] HospitalIn the event this information is protected by the Federal Confidentiality of Alcohol and Drug Abuse Patient Records regulations: The Federal rules restrict any use of the information to criminally investigate or prosecute any alcohol or drug abuse patient.[facility] HospitalIn the event this information is protected by the Federal Confidentiality of Alcohol and Drug Abuse Patient Records regulations: The Federal rules restrict any use of the information to criminally investigate or prosecute any alcohol or drug abuse patient.[facility] HospitalIn the event this information is protected by the Federal Confidentiality of Alcohol and Drug Abuse Patient Records regulations: The Federal rules restrict any use of the information to criminally investigate or prosecute any alcohol or drug abuse patient.[facility] HospitalIn the event this information is protected by the Federal Confidentiality of Alcohol and Drug Abuse Patient Records regulations: The Federal rules restrict any use of the information to criminally investigate or prosecute any alcohol or drug abuse patient.[facility] HospitalIn the event this information is protected by the Federal Confidentiality of Alcohol and Drug Abuse Patient Records regulations: The Federal rules restrict any use of the information to criminally investigate or prosecute any alcohol or drug abuse patient.[facility] HospitalIn the event this information is protected by the Federal Confidentiality of Alcohol and Drug Abuse Patient Records regulations: The Federal rules restrict any use of the information to criminally investigate or prosecute any alcohol or drug abuse patient.[facility] HospitalIn the event this information is protected by the Federal Confidentiality of Alcohol and Drug Abuse Patient Records regulations: The Federal rules restrict any use of the information to criminally investigate or prosecute any alcohol or drug abuse patient.[facility] HospitalIn the event this information is protected by the Federal Confidentiality of Alcohol and Drug Abuse Patient Records regulations: The Federal rules restrict any use of the information to criminally investigate or prosecute any alcohol or drug abuse patient.[facility] HospitalIn the event this information is protected by the Federal Confidentiality of Alcohol and Drug Abuse Patient Records regulations: The Federal rules restrict any use of the information to criminally investigate or prosecute any alcohol or drug abuse patient.[facility] HospitalIn the event this information is protected by the Federal Confidentiality of Alcohol and Drug Abuse Patient Records regulations: The Federal rules restrict any use of the information to criminally investigate or prosecute any alcohol or drug abuse patient.[facility] HospitalIn the event this information is protected by the Federal Confidentiality of Alcohol and Drug Abuse Patient Records regulations: The Federal rules restrict any use of the information to criminally investigate or prosecute any alcohol or drug abuse patient.[facility] HospitalIn the event this information is protected by the Federal Confidentiality of Alcohol and Drug Abuse Patient Records regulations: The Federal rules restrict any use of the information to criminally investigate or prosecute any alcohol or drug abuse patient.[facility] HospitalIn the event this information is protected by the Federal Confidentiality of Alcohol and Drug Abuse Patient Records regulations: The Federal rules restrict any use of the information to criminally investigate or prosecute any alcohol or drug abuse patient.[facility] HospitalIn the event this information is protected by the Federal Confidentiality of Alcohol and Drug Abuse Patient Records regulations: The Federal rules restrict any use of the information to criminally investigate or prosecute any alcohol or drug abuse patient.[facility] HospitalIn the event this information is protected by the Federal Confidentiality of Alcohol and Drug Abuse Patient Records regulations: The Federal rules restrict any use of the information to criminally investigate or prosecute any alcohol or drug abuse patient.[facility] HospitalIn the event this information is protected by the Federal Confidentiality of Alcohol and Drug Abuse Patient Records regulations: The Federal rules restrict any use of the information to criminally investigate or prosecute any alcohol or drug abuse patient.[facility] HospitalIn the event this information is protected by the Federal Confidentiality of Alcohol and Drug Abuse Patient Records regulations: The Federal rules restrict any use of the information to criminally investigate or prosecute any alcohol or drug abuse patient.[facility] HospitalIn the event this information is protected by the Federal Confidentiality of Alcohol and Drug Abuse Patient Records regulations: The Federal rules restrict any use of the information to criminally investigate or prosecute any alcohol or drug abuse patient.[facility] HospitalIn the event this information is protected by the Federal Confidentiality of Alcohol and Drug Abuse Patient Records regulations: The Federal rules restrict any use of the information to criminally investigate or prosecute any alcohol or drug abuse patient.[facility] HospitalIn the event this information is protected by the Federal Confidentiality of Alcohol and Drug Abuse Patient Records regulations: The Federal rules restrict any use of the information to criminally investigate or prosecute any alcohol or drug abuse patient.[facility] HospitalIn the event this information is protected by the Federal Confidentiality of Alcohol and Drug Abuse Patient Records regulations: The Federal rules restrict any use of the information to criminally investigate or prosecute any alcohol or drug abuse patient.[facility] HospitalIn the event this information is protected by the Federal Confidentiality of Alcohol and Drug Abuse Patient Records regulations: The Federal rules restrict any use of the information to criminally investigate or prosecute any alcohol or drug abuse patient.[facility] HospitalIn the event this information is protected by the Federal Confidentiality of Alcohol and Drug Abuse Patient Records regulations: The Federal rules restrict any use of the information to criminally investigate or prosecute any alcohol or drug abuse patient.[facility] HospitalIn the event this information is protected by the Federal Confidentiality of Alcohol and Drug Abuse Patient Records regulations: The Federal rules restrict any use of the information to criminally investigate or prosecute any alcohol or drug abuse patient.[facility] HospitalIn the event this information is protected by the Federal Confidentiality of Alcohol and Drug Abuse Patient Records regulations: The Federal rules restrict any use of the information to criminally investigate or prosecute any alcohol or drug abuse patient.[facility] HospitalIn the event this information is protected by the Federal Confidentiality of Alcohol and Drug Abuse Patient Records regulations: The Federal rules restrict any use of the information to criminally investigate or prosecute any alcohol or drug abuse patient.[facility] HospitalIn the event this information is protected by the Federal Confidentiality of Alcohol and Drug Abuse Patient Records regulations: The Federal rules restrict any use of the information to criminally investigate or prosecute any alcohol or drug abuse patient.[facility] HospitalIn the event this information is protected by the Federal Confidentiality of Alcohol and Drug Abuse Patient Records regulations: The Federal rules restrict any use of the information to criminally investigate or prosecute any alcohol or drug abuse patient.[facility] HospitalIn the event this information is protected by the Federal Confidentiality of Alcohol and Drug Abuse Patient Records regulations: The Federal rules restrict any use of the information to criminally investigate or prosecute any alcohol or drug abuse patient.[facility]In the event this information is protected by the Federal Confidentiality of Alcohol and Drug Abuse Patient Records regulations: The Federal rules restrict any use of the information to criminally investigate or prosecute any alcohol or drug abuse patient.[facility] HospitalIn the event this information is protected by the Federal Confidentiality of Alcohol and Drug Abuse Patient Records regulations: The Federal rules restrict any use of the information to criminally investigate or prosecute any alcohol or drug abuse patient.[facility] HospitalIn the event this information is protected by the Federal Confidentiality of Alcohol and Drug Abuse Patient Records regulations: The Federal rules restrict any use of the information to criminally investigate or prosecute any alcohol or drug abuse patient.[facility] HospitalIn the event this information is protected by the Federal Confidentiality of Alcohol and Drug Abuse Patient Records regulations: The Federal rules restrict any use of the information to criminally investigate or prosecute any alcohol or drug abuse patient.[facility] HospitalIn the event this information is protected by the Federal Confidentiality of Alcohol and Drug Abuse Patient Records regulations: The Federal rules restrict any use of the information to criminally investigate or prosecute any alcohol or drug abuse patient.[facility]In the event this information is protected by the Federal Confidentiality of Alcohol and Drug Abuse Patient Records regulations: The Federal rules restrict any use of the information to criminally investigate or prosecute any alcohol or drug abuse patient.[facility] HospitalIn the event this information is protected by the Federal Confidentiality of Alcohol and Drug Abuse Patient Records regulations: The Federal rules restrict any use of the information to criminally investigate or prosecute any alcohol or drug abuse patient.[facility] HospitalIn the event this information is protected by the Federal Confidentiality of Alcohol and Drug Abuse Patient Records regulations: The Federal rules restrict any use of the information to criminally investigate or prosecute any alcohol or drug abuse patient.[facility] HospitalIn the event this information is protected by the Federal Confidentiality of Alcohol and Drug Abuse Patient Records regulations: The Federal rules restrict any use of the information to criminally investigate or prosecute any alcohol or drug abuse patient.[facility]In the event this information is protected by the Federal Confidentiality of Alcohol and Drug Abuse Patient Records regulations: The Federal rules restrict any use of the information to criminally investigate or prosecute any alcohol or drug abuse patient.[facility]In the event this information is protected by the Federal Confidentiality of Alcohol and Drug Abuse Patient Records regulations: The Federal rules restrict any use of the information to criminally investigate or prosecute any alcohol or drug abuse patient.[facility]In the event this information is protected by the Federal Confidentiality of Alcohol and Drug Abuse Patient Records regulations: The Federal rules restrict any use of the information to criminally investigate or prosecute any alcohol or drug abuse patient.[facility]In the event this information is protected by the Federal Confidentiality of Alcohol and Drug Abuse Patient Records regulations: The Federal rules restrict any use of the information to criminally investigate or prosecute any alcohol or drug abuse patient.[facility]In the event this information is protected by the Federal Confidentiality of Alcohol and Drug Abuse Patient Records regulations: The Federal rules restrict any use of the information to criminally investigate or prosecute any alcohol or drug abuse patient.[facility]In the event this information is protected by the Federal Confidentiality of Alcohol and Drug Abuse Patient Records regulations: The Federal rules restrict any use of the information to criminally investigate or prosecute any alcohol or drug abuse patient.[facility]In the event this information is protected by the Federal Confidentiality of Alcohol and Drug Abuse Patient Records regulations: The Federal rules restrict any use of the information to criminally investigate or prosecute any alcohol or drug abuse patient.[facility]In the event this information is protected by the Federal Confidentiality of Alcohol and Drug Abuse Patient Records regulations: The Federal rules restrict any use of the information to criminally investigate or prosecute any alcohol or drug abuse patient.[facility]In the event this information is protected by the Federal Confidentiality of Alcohol and Drug Abuse Patient Records regulations: The Federal rules restrict any use of the information to criminally investigate or prosecute any alcohol or drug abuse patient.[facility]In the event this information is protected by the Federal Confidentiality of Alcohol and Drug Abuse Patient Records regulations: The Federal rules restrict any use of the information to criminally investigate or prosecute any alcohol or drug abuse patient.[facility]In the event this information is protected by the Federal Confidentiality of Alcohol and Drug Abuse Patient Records regulations: The Federal rules restrict any use of the information to criminally investigate or prosecute any alcohol or drug abuse patient.[facility]In the event this information is protected by the Federal Confidentiality of Alcohol and Drug Abuse Patient Records regulations: The Federal rules restrict any use of the information to criminally investigate or prosecute any alcohol or drug abuse patient.[facility] HospitalIn the event this information is protected by the Federal Confidentiality of Alcohol and Drug Abuse Patient Records regulations: The Federal rules restrict any use of the information to criminally investigate or prosecute any alcohol or drug abuse patient.[facility] HospitalIn the event this information is protected by the Federal Confidentiality of Alcohol and Drug Abuse Patient Records regulations: The Federal rules restrict any use of the information to criminally investigate or prosecute any alcohol or drug abuse patient.[facility] HospitalIn the event this information is protected by the Federal Confidentiality of Alcohol and Drug Abuse Patient Records regulations: The Federal rules restrict any use of the information to criminally investigate or prosecute any alcohol or drug abuse patient.[facility] HospitalIn the event this information is protected by the Federal Confidentiality of Alcohol and Drug Abuse Patient Records regulations: The Federal rules restrict any use of the information to criminally investigate or prosecute any alcohol or drug abuse patient.[facility] HospitalIn the event this information is protected by the Federal Confidentiality of Alcohol and Drug Abuse Patient Records regulations: The Federal rules restrict any use of the information to criminally investigate or prosecute any alcohol or drug abuse patient.[facility] HospitalIn the event this information is protected by the Federal Confidentiality of Alcohol and Drug Abuse Patient Records regulations: The Federal rules restrict any use of the information to criminally investigate or prosecute any alcohol or drug abuse patient.[facility] HospitalIn the event this information is protected by the Federal Confidentiality of Alcohol and Drug Abuse Patient Records regulations: The Federal rules restrict any use of the information to criminally investigate or prosecute any alcohol or drug abuse patient.[facility] HospitalIn the event this information is protected by the Federal Confidentiality of Alcohol and Drug Abuse Patient Records regulations: The Federal rules restrict any use of the information to criminally investigate or prosecute any alcohol or drug abuse patient.[facility] HospitalIn the event this information is protected by the Federal Confidentiality of Alcohol and Drug Abuse Patient Records regulations: The Federal rules restrict any use of the information to criminally investigate or prosecute any alcohol or drug abuse patient.[facility] HospitalIn the event this information is protected by the Federal Confidentiality of Alcohol and Drug Abuse Patient Records regulations: The Federal rules restrict any use of the information to criminally investigate or prosecute any alcohol or drug abuse patient.[facility] HospitalIn the event this information is protected by the Federal Confidentiality of Alcohol and Drug Abuse Patient Records regulations: The Federal rules restrict any use of the information to criminally investigate or prosecute any alcohol or drug abuse patient.[facility] HospitalIn the event this information is protected by the Federal Confidentiality of Alcohol and Drug Abuse Patient Records regulations: The Federal rules restrict any use of the information to criminally investigate or prosecute any alcohol or drug abuse patient.[facility] HospitalIn the event this information is protected by the Federal Confidentiality of Alcohol and Drug Abuse Patient Records regulations: The Federal rules restrict any use of the information to criminally investigate or prosecute any alcohol or drug abuse patient.[facility] HospitalIn the event this information is protected by the Federal Confidentiality of Alcohol and Drug Abuse Patient Records regulations: The Federal rules restrict any use of the information to criminally investigate or prosecute any alcohol or drug abuse patient.[facility] HospitalIn the event this information is protected by the Federal Confidentiality of Alcohol and Drug Abuse Patient Records regulations: The Federal rules restrict any use of the information to criminally investigate or prosecute any alcohol or drug abuse patient.[facility] HospitalIn the event this information is protected by the Federal Confidentiality of Alcohol and Drug Abuse Patient Records regulations: The Federal rules restrict any use of the information to criminally investigate or prosecute any alcohol or drug abuse patient.[facility] HospitalIn the event this information is protected by the Federal Confidentiality of Alcohol and Drug Abuse Patient Records regulations: The Federal rules restrict any use of the information to criminally investigate or prosecute any alcohol or drug abuse patient.[facility] HospitalIn the event this information is protected by the Federal Confidentiality of Alcohol and Drug Abuse Patient Records regulations: The Federal rules restrict any use of the information to criminally investigate or prosecute any alcohol or drug abuse patient.[facility] Reason for Visit (unrecogniz ed section and content) Reason Comments Results Specialty Diagnoses / Procedures Referred By Contac t Referred To Contact MR IMAGING Diagnoses Rectal mass Procedures MRI RECTUM WO/W IVCON MRI PELVIS W/O & [place] [address] [place] [address] Mr Imaging Referral ID Status Reason Start Date Expiration Date V isits Requested Visits Authorized [id number] Closed Auto-Generate d Referral 01/24/2022 02/22/2022 1 1 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 Reason [...] Rectosigmoid cancer (HCC) Procedures RAD/ONC CONSULT OFFICE/OUTPATIENT NEW HIGH MDM 60-74 MINUTES Oscar Gonzalez MD [address] [place] [address] Referral ID Status Reason Start Date Expiration Date V isits Requested Visits Authorized [id number] Closed PCP Requested Referral 02/11/2022 02/10/2023 1 [...] Letter Specialty Diagnoses / Procedures [facility] Diagnoses Malignant neoplasm of rectum (HCC) Procedures MRI RECTUM WO/W IVCON MRI PELVIS W/O & W/CONTRAST MATERIAL Oscar Gonzalez MD [address] [place] [address] Mr Imaging Referral ID Status Reason Start Date Expiration Date V isits Requested Visits Authorized [id number] Closed Auto-Generate d Referral 04/18/2022 05/17/2022 1 [...] Procedures PALONOSETRON HCL OXALIPLATIN Oscar Gonzalez MD [address] [place] [address] Erwin Treat [address] [place] [address] Referral ID Status Reason Start Date Expiration Date V isits Requested Visits Authorized [id number] Authorized 05/24/2022 11/09/2022 8 8 Reason Comments Care Coordination Medication update Reason Onset Date Comments Refill Request 07/15/2022 Reason Comments Chemotherapy Treatment Specialty Diagnoses / Procedures Referred By Contac t Referred To Contact Diagnoses Rectal cancer (HCC) Procedures PALONOSETRON HCL OXALIPLATIN Oscar Gonzalez MD [address] [place] [address] Erwin Treat [address] [place] [address] Reason Comments Care Coordination Clinical update Reason Comments B-12 Injection Reason Onset Date Comments Research Follow Up 08/25/2022 Reason Comments Rectal Cancer OTV 3 weeks Reason Onset Date Comments Research Follow Up 08/26/2022 Reason Onset Date Comments Refill Request 08/26/2022 Reason Onset Date Comments Refill Request 09/05/2022 Reason Comments APPOINTMENT INSTRUCTIONS MRI- 09/26/2022 @ 200PMAppointment reminder call- spoke with Chris angela directions to the office- states patient has another appointment before ours and will be here after Specialty Diagnoses / Procedures Referred By Contac t Referred To Contact CT IMAGING Diagnoses Lung nodules Procedures CT CHEST W IVCON DIAGNOSTIC COMPUTED TOMOGRAPHY THORAX W/CONTRAST Temi Ramirez, OSCAR [address] [place] [address] Ct Imaging Referral ID Status Reason Start Date Expiration Date V isits Requested Visits Authorized [id number] Closed Auto-Generate d Referral 08/26/2022 10/01/2022 1 1 Reason Comments Care Coordination MRI results Reason Comments Follow Up Reason Comments Anesthesia Consult Patient not schedule d PACC Reason Comments Anesthesia Consult Reason Comments 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 Reason Comments Refill Request Reason Comments Follow Up All clear Reason Onset Date Comments Research Follow Up 02/28/2023 Reason Onset Date Comments Research Follow Up 03/02/2023 Reason Comments Education Of Patient/family Reason Comments Inguinal Hernia left Reason Comments Pre-Op Visit Reason Comments New Patient Specialty Diagnoses / Procedures Referred By Contac t Referred To Contact Cardiology Diagnoses Pre-op examination Procedures CONSULT TO CARDIOLOGY OFFICE/OUTPATIENT NEW [facility] 60 MINUTES Darío Stratton, ALTERATION WORKER.HOSIERY MENDER [address] [place] [address] Referral ID Status Reason Start Date Expiration Date V isits Requested Visits Authorized [id number] Closed PCP Requested Referral 06/24/2024 06/24/2025 [address] Specialty Diagnoses / Procedures Referred By Contac t Referred To Contact CT IMAGING Diagnoses Malignant neoplasm of rectum (HCC) Procedures CT ABD/PEL W IVCON CT ABD & PELVIS W/[place] [address] [place] [address] [place] [address] Referral ID Status Reason Start Date Expiration Date V isits Requested Visits Authorized [id number] Closed Auto-Generate d Referral 10/04/2022 11/03/2022 1 1 Specialty Diagnoses / Procedures Referred By Contac t Referred To Contact MR IMAGING Diagnoses Malignant neoplasm of rectum (HCC) Procedures MRI RECTUM WO/W IVCON MRI PELVIS W/O & W/CONTRAST MATERIAL Temi Ramirez, OSCAR [address] [place] [address] [place] [address] [place] [address] Referral ID Status Reason Start Date Expiration Date V isits Requested Visits Authorized [id number] Closed Auto-Generate d Referral 08/26/2022 10/01/2022 1 1 Specialty Diagnoses / Procedures Referred By Contac t Referred To Contact Radiation Oncology / RADIATION ONCOLOGY Diagnoses Malignant neoplasm of rectum SIM/GEOFF/Pelvis - IV & Oral Contrast Procedures SIMULATION CLAY IMRT 25 fractions Tylor Davalos MD [address] [place] [address] [place] [address] Tylor Davalos MD [address] [place] [address] [place] [address] Referral ID Status Reason Start Date Expiration Date Visits Re quested Visits Authorized [id number] Closed 02/28/2022 10/29/2022 [address] Specialty Diagnoses / Procedures Referred By Contac t Referred To Contact CT IMAGING Diagnoses Malignant neoplasm of rectosigmoid junction (HCC) Procedures CT CHEST W IVCON DIAGNOSTIC COMPUTED TOMOGRAPHY THORAX W/CONTRAST Oscar Gonzalez MD [address] [place] [address] [address] [id number] Referral ID Status Reason Start Date Expiration Date V isits Requested Visits Authorized [id number] Closed Auto-Generate d Referral 01/05/2022 01/28/2022 1 1 Reason Comments Follow-up States just a new ap point with new provider Care Teams (unrecognized sec tion and content) Payable Representative Relationship Specialty Start Date End Date Charity Pichardo RN [address] [place] [address] [place] [address] Specialty Pai Gow Dealer Hematology/Oncology 03/01/22 Oscar Gonzalez MD [address] [place] [address] Physician Hematology/Oncology 03/01/22 Temi Ramirez PAChristopherC [address] [place] [address] [place] [address] Physician Service Inspector Hematology/Oncology 03/01/22 Payable Representative Relationship Specialty Start Date End Date Charity Pichardo RN [address] [place] [address] [place] [address] Specialty Pai Gow Dealer Hematology/Oncology 03/01/22 Oscar Gonzalez MD [address] [facility] [place] [address] Physician Hematology/Oncology 03/01/22 Temi Ramirez, PAChristopherC [address] [facility] [place] [address] Physician Service Inspector Hematology/Oncology 03/01/22 Payable Representative Relationship Specialty Start Date End Date Charity Pichardo RN [address] [facility] [place] [address] Specialty Pai Gow Dealer Hematology/Oncology 03/01/22 Oscar Gonzalez MD [address] [facility] [place] [address] Physician Hematology/Oncology 03/01/22 Temi Ramirez PA-C [address] [facility] [place] [address] Physician Service Inspector Hematology/Oncology 03/01/22 Payable Representative Relationship Specialty Start Date End Date Charity Pichardo RN [address] [facility] [place] [address] Specialty Pai Gow Dealer Hematology/Oncology 03/01/22 Oscar Gonzalez MD [address] [place] [address] Physician Hematology/Oncology 03/01/22 Temi Ramirez PAChristopherC [address] [facility] [place] [address] Physician Service Inspector Hematology/Oncology 03/01/22 Payable Representative Relationship Specialty Start Date End Date Charity Pichardo RN [address] [facility] [place] [address] Specialty Pai Gow Dealer Hematology/Oncology 03/01/22 Oscar Gonzalez MD [address] [facility] [place] [address] Physician Hematology/Oncology 03/01/22 Temi Ramirez PA-C [address] [facility] [place] [address] Physician Service Inspector Hematology/Oncology 03/01/22 Payable Representative Relationship Specialty Start Date End Date Charity Pichardo RN [address] [facility] [place] [address] Specialty Pai Gow Dealer Hematology/Oncology 03/01/22 Oscar Gonzalez MD [address] [facility] [place] [address] Physician Hematology/Oncology 03/01/22 Temi Ramirez PA-C [address] [facility] [place] [address] Physician Service Inspector Hematology/Oncology 03/01/22 Payable Representative Relationship Specialty Start Date End Date Charity Pichardo RN [address] [facility] [place] [address] Specialty Pai Gow Dealer Hematology/Oncology 03/01/22 Oscar Gonzalez MD [address] [facility] [place] [address] Physician Hematology/Oncology 03/01/22 Temi Ramirez PA-C [address] [facility] [place] [address] Physician Service Inspector Hematology/Oncology 03/01/22 Payable Representative Relationship Specialty Start Date End Date Charity Pichardo RN [address] [facility] [place] [address] Specialty Pai Gow Dealer Hematology/Oncology 03/01/22 Oscar Gonzalez MD [address] [place] [address] Physician Hematology/Oncology 03/01/22 Temi Ramirez PA-C [address] [facility] [place] [address] Physician Service Inspector Hematology/Oncology 03/01/22 Payable Representative Relationship Specialty Start Date End Date Charity Pichardo RN [address] [facility] [place] [address] Specialty Pai Gow Dealer Hematology/Oncology 03/01/22 Oscar Gonzalez MD [address] [place] [address] Physician Hematology/Oncology 03/01/22 Tmei Ramirez PA-C [address] [place] [address] [place] [address] Physician Service Inspector Hematology/Oncology 03/01/22 Payable Representative Relationship Specialty Start Date End Date Charity Pichardo RN [address] [facility] [place] [address] Specialty Pai Gow Dealer Hematology/Oncology 03/01/22 Oscar Gonzalez MD [address] [place] [address] Physician Hematology/Oncology 03/01/22 Temi Ramirez PA-C [address] [facility] [place] [address] Physician Service Inspector Hematology/Oncology 03/01/22 Payable Representative Relationship Specialty Start Date End Date Charity Pichardo RN [address] [facility] [place] [address] Specialty Pai Gow Dealer Hematology/Oncology 03/01/22 Oscar Gonzalez MD [address] [place] [address] Physician Hematology/Oncology 03/01/22 Temi Ramirez PA-C [address] [facility] [place] [address] Physician Service Inspector Hematology/Oncology 03/01/22 Payable Representative Relationship Specialty Start Date End Date Charity Pichardo RN [address] [facility] [place] [address] Specialty Pai Gow Dealer Hematology/Oncology 03/01/22 Oscar Gonzalez MD [address] [place] [address] Physician Hematology/Oncology 03/01/22 Temi Ramirez, PAChristopherC [address] [facility] [place] [address] Physician Service Inspector Hematology/Oncology 03/01/22 Payable Representative Relationship Specialty Start Date End Date Charity Pichardo RN [address] [facility] [place] [address] Specialty Pai Gow Dealer Hematology/Oncology 03/01/22 Oscar Gonzalez MD [address] [place] [address] Physician Hematology/Oncology 03/01/22 Temi Ramirez, PAChristopherC [address] [facility] [place] [address] Physician Service Inspector Hematology/Oncology 03/01/22 Payable Representative Relationship Specialty Start Date End Date Charity Pichardo RN [address] [facility] [place] [address] Specialty Pai Gow Dealer Hematology/Oncology 03/01/22 Oscar Gonzalez MD [address] [place] [address] Physician Hematology/Oncology 03/01/22 Temi Ramirez, PAChristopherC [address] [facility] [place] [address] Physician Service Inspector Hematology/Oncology 03/01/22 Payable Representative Relationship Specialty Start Date End Date Charity Pichardo RN [address] [facility] [place] [address] Specialty Pai Gow Dealer Hematology/Oncology 03/01/22 Oscar Gonzalez MD [address] [facility] [place] [address] Physician Hematology/Oncology 03/01/22 Temi Ramirez PA-C [address] [facility] [place] [address] Physician Service Inspector Hematology/Oncology 03/01/22 Payable Representative Relationship Specialty Start Date End Date Charity Pichardo RN [address] [facility] [place] [address] Specialty Pai Gow Dealer Hematology/Oncology 03/01/22 Oscar Gonzalez MD [address] [facility] [place] [address] Physician Hematology/Oncology 03/01/22 Temi Ramirez PA-C [address] [facility] [place] [address] Physician Service Inspector Hematology/Oncology 03/01/22 Payable Representative Relationship Specialty Start Date End Date Charity Pichardo RN [address] [facility] [place] [address] Specialty Pai Gow Dealer Hematology/Oncology 03/01/22 Oscar Gonzalez MD [address] [facility] [place] [address] Physician Hematology/Oncology 03/01/22 Temi Ramirez PAChristopherC [address] [facility] [place] [address] Physician Service Inspector Hematology/Oncology 03/01/22 Payable Representative Relationship Specialty Start Date End Date Charity Pichardo RN [address] [facility] [place] [address] Specialty Pai Gow Dealer Hematology/Oncology 03/01/22 Oscar Gonzalez MD [address] [facility] [place] [address] Physician Hematology/Oncology 03/01/22 Temi Ramirez PA-C [address] [facility] [place] [address] Physician Service Inspector Hematology/Oncology 03/01/22 Payable Representative Relationship Specialty Start Date End Date Charity Pichardo RN [address] [facility] [place] [address] Specialty Pai Gow Dealer Hematology/Oncology 03/01/22 Oscar Gonzalez MD [address] [place] [address] Physician Hematology/Oncology 03/01/22 Temi Ramirez PA-C [address] [facility] [place] [address] Physician Service Inspector Hematology/Oncology 03/01/22 Payable Representative Relationship Specialty Start Date End Date Charity Pichardo RN [address] [facility] [place] [address] Specialty Pai Gow Dealer Hematology/Oncology 03/01/22 Oscar Gonzalez MD [address] [facility] [place] [address] Physician Hematology/Oncology 03/01/22 Temi Ramirez PA-C [address] [facility] [place] [address] Physician Service Inspector Hematology/Oncology 03/01/22 Payable Representative Relationship Specialty Start Date End Date Charity Pichardo RN [address] [facility] [place] [address] Specialty Pai Gow Dealer Hematology/Oncology 03/01/22 Oscar Gonzalez MD [address] [facility] [place] [address] Physician Hematology/Oncology 03/01/22 Temi Ramirez PA-C [address] [facility] [place] [address] Physician Service Inspector Hematology/Oncology 03/01/22 Payable Representative Relationship Specialty Start Date End Date Charity Pichardo RN [address] [facility] [place] [address] Specialty Pai Gow Dealer Hematology/Oncology 03/01/22 Oscar Gonzalez MD [address] [place] [address] Physician Hematology/Oncology 03/01/22 Temi Ramirez PA-C [address] [facility] [place] [address] Physician Service Inspector Hematology/Oncology 03/01/22 Payable Representative Relationship Specialty Start Date End Date Charity Pichardo RN [address] [facility] [place] [address] Specialty Pai Gow Dealer Hematology/Oncology 03/01/22 Oscar Gonzalez MD [address] [place] [address] Physician Hematology/Oncology 03/01/22 Temi Ramirez PA-C [address] [facility] [place] [address] Physician Service Inspector Hematology/Oncology 03/01/22 Payable Representative Relationship Specialty Start Date End Date Charity Pichardo RN [address] [facility] [place] [address] Specialty Pai Gow Dealer Hematology/Oncology 03/01/22 Oscar Gonzalez MD [address] [place] [address] Physician Hematology/Oncology 03/01/22 Temi Ramirez PA-C [address] [facility] [place] [address] Physician Service Inspector Hematology/Oncology 03/01/22 Payable Representative Relationship Specialty Start Date End Date Charity Pichardo RN [address] [facility] [place] [address] Specialty Pai Gow Dealer Hematology/Oncology 03/01/22 Oscar Gonzalez MD [address] [place] [address] Physician Hematology/Oncology 03/01/22 Temi Ramirez PA-C [address] [facility] [place] [address] Physician Service Inspector Hematology/Oncology 03/01/22 Payable Representative Relationship Specialty Start Date End Date Charity Pichardo RN [address] [facility] [place] [address] Specialty Pai Gow Dealer Hematology/Oncology 03/01/22 Oscar Gonzalez MD [address] [place] [address] Physician Hematology/Oncology 03/01/22 Temi Ramirez PA-C [address] [facility] [place] [address] Physician Service Inspector Hematology/Oncology 03/01/22 Payable Representative Relationship Specialty Start Date End Date Shaikh Adam MD [address] [place] [address] PCP - General Primary Care 08/05/22 Charity Pichardo RN [address] [facility] [place] [address] Specialty Pai Gow Dealer Hematology/Oncology 03/01/22 Oscar Gonzalez MD [address] [place] [address] Physician Hematology/Oncology 03/01/22 Temi Ramirez PA-C [address] [facility] [place] [address] Physician Service Inspector Hematology/Oncology 03/01/22 Payable Representative Relationship Specialty Start Date End Date Shaikh Adam MD [address] [place] [address] PCP - General Primary Care 08/05/22 Charity Pichardo, RN [address] [facility] [place] [address] Specialty Pai Gow Dealer Hematology/Oncology 03/01/22 Oscar Gonzalez MD [address] [facility] [place] [address] Physician Hematology/Oncology 03/01/22 Temi Ramirez PA-C [address] [facility] [place] [address] Physician Service Inspector Hematology/Oncology 03/01/22 Payable Representative Relationship Specialty Start Date End Date Shaikh Adam MD [address] [place] [address] PCP - General Primary Care 08/05/22 Charity Pichardo RN [address] [facility] [place] [address] Specialty Pai Gow Dealer Hematology/Oncology 03/01/22 Oscar Gonzalez MD [address] [facility] [place] [address] Physician Hematology/Oncology 03/01/22 Temi Ramirez PA-C [address] [facility] [place] [address] Physician Service Inspector Hematology/Oncology 03/01/22 Payable Representative Relationship Specialty Start Date End Date Shaikh Adam MD [address] [place] [address] PCP - General Primary Care 08/05/22 Charity Pichardo RN [address] [facility] [place] [address] Specialty Pai Gow Dealer Hematology/Oncology 03/01/22 Oscar Gonzalez MD [address] [place] [address] Physician Hematology/Oncology 03/01/22 Temi Ramirez PA-C [address] [facility] [place] [address] Physician Service Inspector Hematology/Oncology 03/01/22 Payable Representative Relationship Specialty Start Date End Date Shaikh Adam MD [address] [place] [address] PCP - General Primary Care 08/05/22 Charity Pichardo RN [address] [facility] [place] [address] Specialty Pai Gow Dealer Hematology/Oncology 03/01/22 Oscar Gonzalez MD [address] [place] [address] Physician Hematology/Oncology 03/01/22 Temi Ramirez PA-C [address] [facility] [place] [address] Physician Service Inspector Hematology/Oncology 03/01/22 Payable Representative Relationship Specialty Start Date End Date Shaikh Adam MD [address] [place] [address] PCP - General Primary Care 08/05/22 Charity Pichardo RN [address] [facility] [place] [address] Specialty Pai Gow Dealer Hematology/Oncology 03/01/22 Oscar Gonzalez MD [address] [place] [address] Physician Hematology/Oncology 03/01/22 Temi Ramirez PA-C [address] [facility] [place] [address] Physician Service Inspector Hematology/Oncology 03/01/22 Payable Representative Relationship Specialty Start Date End Date Shaikh Adam MD [address] [place] [address] PCP - General Primary Care 08/05/22 Charity Pichardo RN [address] [facility] [place] [address] Specialty Pai Gow Dealer Hematology/Oncology 03/01/22 Oscar Gonzalez MD [address] [facility] [place] [address] Physician Hematology/Oncology 03/01/22 Temi Ramirez PA-C [address] [facility] [place] [address] Physician Service Inspector Hematology/Oncology 03/01/22 Payable Representative Relationship Specialty Start Date End Date Shaikh Adam MD [address] [place] [address] PCP - General Primary Care 08/05/22 Charity Pichardo RN [address] [facility] [place] [address] Specialty Pai Gow Dealer Hematology/Oncology 03/01/22 Oscar Gonzalez MD [address] [place] [address] Physician Hematology/Oncology 03/01/22 Temi Ramirez PA-C [address] [facility] [place] [address] Physician Service Inspector Hematology/Oncology 03/01/22 Payable Representative Relationship Specialty Start Date End Date Shaikh Adam MD [address] [place] [address] PCP - General Primary Care 08/05/22 Charity Pichardo RN [address] [facility] [place] [address] Specialty Pai Gow Dealer Hematology/Oncology 03/01/22 Oscar Gonzalez MD [address] [place] [address] Physician Hematology/Oncology 03/01/22 Temi Ramirez PA-C [address] [facility] [place] [address] Physician Service Inspector Hematology/Oncology 03/01/22 Payable Representative Relationship Specialty Start Date End Date Shaikh Adam MD [address] [place] [address] PCP - General Primary Care 08/05/22 Charity Pichardo RN [address] [facility] [place] [address] Specialty Pai Gow Dealer Hematology/Oncology 03/01/22 Oscar Gonzalez MD [address] [facility] [place] [address] Physician Hematology/Oncology 03/01/22 Temi Ramirez PA-C [address] [facility] [place] [address] Physician Service Inspector Hematology/Oncology 03/01/22 Payable Representative Relationship Specialty Start Date End Date Shaikh Adam MD [address] [place] [address] PCP - General Primary Care 08/05/22 Charity Pichardo RN [address] [facility] [place] [address] Specialty Pai Gow Dealer Hematology/Oncology 03/01/22 Oscar Gonzalez MD [address] [place] [address] Physician Hematology/Oncology 03/01/22 Temi Ramirez PA-C [address] [facility] [place] [address] Physician Service Inspector Hematology/Oncology 03/01/22 Payable Representative Relationship Specialty Start Date End Date Shaikh Adam MD [address] [place] [address] PCP - General Primary Care 08/05/22 Charity Pichardo RN [address] [facility] [place] [address] Specialty Pai Gow Dealer Hematology/Oncology 03/01/22 Oscar Gonzalez MD [address] [place] [address] Physician Hematology/Oncology 03/01/22 Temi Ramirez, OSCAR [address] [facility] [place] [address] Physician Service Inspector Hematology/Oncology 03/01/22 Payable Representative Relationship Specialty Start Date End Date Shaikh Adam MD [address] [place] [address] PCP - General Primary Care 08/05/22 Charity Pichardo RN [address] [facility] [place] [address] Specialty Pai Gow Dealer Hematology/Oncology 03/01/22 Oscar Gonzalez MD [address] [place] [address] Physician Hematology/Oncology 03/01/22 Temi Ramirez PA-C [address] [facility] [place] [address] Physician Service Inspector Hematology/Oncology 03/01/22 Payable Representative Relationship Specialty Start Date End Date Shaikh Adam MD [address] [place] [address] PCP - General Primary Care 08/05/22 Charity Pichardo RN [address] [facility] [place] [address] Specialty Pai Gow Dealer Hematology/Oncology 03/01/22 Oscar Gonzalez MD [address] [place] [address] Physician Hematology/Oncology 03/01/22 Temi Ramirez PA-C [address] [facility] [place] [address] Physician Service Inspector Hematology/Oncology 03/01/22 Payable Representative Relationship Specialty Start Date End Date Shaikh Adam MD [address] [place] [address] PCP - General Primary Care 08/05/22 Charity Pichardo RN [address] [facility] [place] [address] Specialty Pai Gow Dealer Hematology/Oncology 03/01/22 Oscar Gonzalez MD [address] [facility] [place] [address] Physician Hematology/Oncology 03/01/22 Temi Ramirez PA-C [address] [facility] [place] [address] Physician Service Inspector Hematology/Oncology 03/01/22 Payable Representative Relationship Specialty Start Date End Date Shaikh Adam MD [address] [place] [address] PCP - General Primary Care 08/05/22 Charity Pichardo RN [address] [facility] [place] [address] Specialty Pai Gow Dealer Hematology/Oncology 03/01/22 Oscar Gonzalez MD [address] [place] [address] Physician Hematology/Oncology 03/01/22 Temi Ramirez PA-C [address] [facility] [place] [address] Physician Service Inspector Hematology/Oncology 03/01/22 Payable Representative Relationship Specialty Start Date End Date Shaikh Adam MD [address] [place] [address] PCP - General Primary Care 08/05/22 Charity Pichardo RN [address] [facility] [place] [address] Specialty Pai Gow Dealer Hematology/Oncology 03/01/22 Oscar Gonzalez MD [address] [place] [address] Physician Hematology/Oncology 03/01/22 Temi Ramirez PAFeliz [address] [facility] [place] [address] Physician Service Inspector Hematology/Oncology 03/01/22 Payable Representative Relationship Specialty Start Date End Date Shaikh Adam MD [address] [place] [address] PCP - General Primary Care 08/05/22 Charity Pichardo RN [address] [facility] [place] [address] Specialty Pai Gow Dealer Hematology/Oncology 03/01/22 Oscar Gonzalez MD [address] [place] [address] Physician Hematology/Oncology 03/01/22 Temi Ramirez PA-C [address] [facility] [place] [address] Physician Service Inspector Hematology/Oncology 03/01/22 Payable Representative Relationship Specialty Start Date End Date Shaikh Adam MD [address] [place] [address] PCP - General Primary Care 08/05/22 Charity Pichardo RN [address] [facility] [place] [address] Specialty Pai Gow Dealer Hematology/Oncology 03/01/22 Oscar Gonzalez MD [address] [facility] [place] [address] Physician Hematology/Oncology 03/01/22 Temi Ramirez PA-C [address] [facility] [place] [address] Physician Service Inspector Hematology/Oncology 03/01/22 Payable Representative Relationship Specialty Start Date End Date Shaikh Adam MD [address] [place] [address] PCP - General Primary Care 08/05/22 Charity Pichardo RN [address] [facility] [place] [address] Specialty Pai Gow Dealer Hematology/Oncology 03/01/22 Oscar Gonzalez MD [address] [place] [address] Physician Hematology/Oncology 03/01/22 Temi Ramirez PA-C [address] [facility] [place] [address] Physician Service Inspector Hematology/Oncology 03/01/22 Payable Representative Relationship Specialty Start Date End Date Shaikh Adam MD [address] [place] [address] PCP - General Primary Care 08/05/22 Charity Pichardo RN [address] [facility] [place] [address] Specialty Pai Gow Dealer Hematology/Oncology 03/01/22 Oscar Gonzalez MD [address] [facility] [place] [address] Physician Hematology/Oncology 03/01/22 Temi Ramirez PA-C [address] [place], [place] [address] [facility] [place] [address] Physician Service Inspector Hematology/Oncology 03/01/22 Payable Representative Relationship Specialty Start Date End Date Shaikh Adam MD [address] [place] [address] PCP - General Primary Care 08/05/22 Charity Pichardo RN [address] [facility] [place] [address] Specialty Pai Gow Dealer Hematology/Oncology 03/01/22 Oscar Gonzalez MD [address] [facility] [place] [address] Physician Hematology/Oncology 03/01/22 Temi Ramirez PA-C [address] [facility] [place] [address] Physician Service Inspector Hematology/Oncology 03/01/22 Payable Representative Relationship Specialty Start Date End Date Shaikh Adam MD [address] [place] [address] PCP - General Primary Care 08/05/22 Charity Pichardo RN [address] [facility] [place] [address] Specialty Pai Gow Dealer Hematology/Oncology 03/01/22 Oscar Gonzalez MD [address] [facility] [place] [address] Physician Hematology/Oncology 03/01/22 Temi Ramirez PA-C [address] [facility] [place] [address] Physician Service Inspector Hematology/Oncology 03/01/22 Payable Representative Relationship Specialty Start Date End Date Shaikh Adam MD [address] [place] [address] PCP - General Primary Care 08/05/22 Charity Pichardo RN [address] [facility] [place] [address] Specialty Pai Gow Dealer Hematology/Oncology 03/01/22 Oscar Gonzalez MD [address] [facility] [place] [address] Physician Hematology/Oncology 03/01/22 Temi Ramirez PA-C [address] [facility] [place] [address] Physician Service Inspector Hematology/Oncology 03/01/22 Payable Representative Relationship Specialty Start Date End Date Shaikh Adam MD [address] [place] [address] PCP - General Primary Care 08/05/22 Oscar Gonzalez MD [address] [facility] [place] [address] Physician Hematology/Oncology 03/01/22 Temi Ramirez PA-C [address] [facility] [place] [address] Physician Service Inspector Hematology/Oncology 03/01/22 Payable Representative Relationship Specialty Start Date End Date Shaikh Adam MD [address] [place] [address] PCP - General Primary Care 08/05/22 Oscar Gonzalez MD [address] [place] [address] Physician Hematology/Oncology 03/01/22 Temi Ramirez PA-C [address] [facility] [place] [address] Physician Service Inspector Hematology/Oncology 03/01/22 Payable Representative Relationship Specialty Start Date End Date Shaikh Adam MD [address] [place] [address] PCP - General Primary Care 08/05/22 Oscar Gonzalez MD [address] [place] [address] Physician Hematology/Oncology 03/01/22 Temi Ramirez PA-C [address] [facility] [place] [address] Physician Service Inspector Hematology/Oncology 03/01/22 Payable Representative Relationship Specialty Start Date End Date Shaikh Adam MD [address] [place] [address] PCP - General Primary Care 08/05/22 Oscar Gonzalez MD [address] [facility] [place] [address] Physician Hematology/Oncology 03/01/22 Temi Ramirez PA-C [address] [facility] [place] [address] Physician Service Inspector Hematology/Oncology 03/01/22 Payable Representative Relationship Specialty Start Date End Date Shaikh Adam MD [address] [place] [address] PCP - General Primary Care 08/05/22 Charity Pichardo RN [address] [facility] [place] [address] Specialty Pai Gow Dealer Hematology/Oncology 03/01/22 06/23/24 Oscar Gonzalez MD [address] [facility] [place] [address] Physician Hematology/Oncology 03/01/22 Temi Ramirez PA-C [address] [facility] [place] [address] Physician Service Inspector Hematology/Oncology 03/01/22 Payable Representative Relationship Specialty Start Date End Date Shaikh Adam MD [address] [place] [address] PCP - General Primary Care 08/05/22 Charity Pichardo, SHEMAR [address] [facility] [place] [address] Specialty Pai Gow Dealer Hematology/Oncology 03/01/22 06/23/24 Oscar Gonzalez MD [address] [place] [address] [place] [address] Physician Hematology/Oncology 03/01/22 Temi Ramirez PA-C [address] [place] [address] [place] [address] Physician Service Inspector Hematology/Oncology 03/01/22 Payable Representative Relationship Specialty Start Date End Date Akira Vargas MD [address] [place] [id number] PCP - General Family Medicine 06/05/24 Esther Workman NP [address] [place] [address] Nurse Practitioner Family Medicine 06/05/24 Payable Representative Relationship Specialty Start Date End Date Akira Vargas MD [address] [place] [phone] PCP - General Family Medicine 06/05/24 Esther Workman NP [address] [place] [address] Nurse Practitioner Family Medicine 06/05/24 Payable Representative Relationship Specialty Start Date End Date Shaikh Adam MD [address] [place] [address] PCP - General Primary Care 08/05/22 Oscar Gonzalez MD [address] [place] [address] Physician Hematology/Oncology 03/01/22 Temi Ramirez PA-C [address] [facility] [place] [address] Physician Service Inspector Hematology/Oncology 03/01/22 Payable Representative Relationship Specialty Start Date End Date Shaikh Adam MD [address] [place] [address] PCP - General Primary Care 08/05/22 Oscar Gonzalez MD [address] [place] [address] Physician Hematology/Oncology 03/01/22 Temi Ramirez PA-C [address] [facility] [place] [address] Physician Service Inspector Hematology/Oncology 03/01/22 Payable Representative Relationship Specialty Start Date End Date Akira Vargas MD [address] [place] [address] PCP - General Family Medicine 06/05/24 Esther Workman NP [address] [place] [address] Nurse Practitioner Family Medicine 06/05/24 FOR RECORDS PERTAINING TO PATIENTS WHO ARE [...] BE BASED ON THE PRIMARY CLINICAL RECORDS. [facility] [employer] provides no warranty or guarantee of the accuracy or completeness of information in this document.
--- NOTE | 2025-03-28 22:47 | PC.NURSE ---
left foot and left ankle, no redness, swelling or bruising at this time. skin intact. ice to site
[2025-03-28] MEDS: IBUPROFEN 600 MG TABLET PO (22:55)
--- NOTE | 2025-03-28 23:37 | ED_ITS ---
HPI HPI - Trauma General Chief Complaint: Extremity Injury, Lower Stated Complaint: extremity injury Time Seen by Provider: 03/28/25 22:24 Source: patient Mode of arrival: ambulance History of Present Illness HPI narrative: cc - fall The patient has Tourette's and as a result has some level of movement disorder. He tripped going down some outside stairs over concrete and he fell. He has injuries to the right wrist, which is bruised and swollen. He also has pain in the left foot and ankle, which he twisted when he actually tried to get up from the initial fall. He also has abrasion to the right ear. All this occurred several hours ago. He denies any injury to the neck or back. He denied any loss of consciousness. He denied any injury to the face. He is a former heroin addict and does not want any medication for pain other than some ibuprofen. He arrived by ambulance Related Data Home Medications ?Medication ?Instructions ?Recorded ?Confirmed buprenorphine 8 mg-naloxone 2 mg 0.5 film sublingual Q 24H 09/22/23 03/11/24 sublingual film dextroamphetamine-amphetamine ER 15 mg PO DAILY 03/11/24 15 mg 24hr capsule,extend release dextroamphetamine-amphetamine 10 10 mg PO DAILY PRN at tention 03/11/24 03/11/24 mg tablet lactobacillus combo no.11 15 1 cap PO DAILY 03/11/24 0 03/11/24 billion cell sprinkle capsule (Probiotic) levothyroxine 137 mcg tablet 137 mcg PO DAILY 03/11/24 03/11/24 Allergies Allergy/AdvReac Type Severity Reaction Status Date / Time No Known Drug Allergies Allergy Verified 03/11/24 09:23 [facility] Medical History (Updated 03/28/25 @ 23:44 by Shawn Lock) Severe tricuspid regurgitation ?I07.1 - Rheumatic tricuspid insufficiency (ICD-10) Right ventricular dilation ?I51.7 - Cardiomegaly (ICD-10) Colostomy fistula ?K94.09 - Other complications of colostomy (ICD-10) Heart valve disorder ?I38 - Endocarditis, valve unspecified (ICD-10) Substance abuse in remission ?F19.11 - Other psychoactive substance abuse, in remission (ICD-10) Inguinal hernia ?K40.90 - Unilateral inguinal hernia, without obstruction or gangrene, not specified as recurrent (ICD-10) Pulmonary embolism ?I26.99 - Other pulmonary embolism without acute cor pulmonale (ICD-10) Migraine ?G43.909 - Migraine, unspecified, not intractable, without status migrainosus (ICD-10) ADD (attention deficit disorder) ?F98.8 - Other specified behavioral and emotional disorders with onset usually occurring in childhood and adolescence (ICD-10) Seasonal allergies ?J30.2 - Other seasonal allergic rhinitis (ICD-10) Hypothyroidism ?E03.9 - Hypothyroidism, unspecified (ICD-10) Surgical History (Updated 03/11/24 @ 09:42 by Janine Brady NP) Colostomy status ?Z93.3 - Colostomy status (ICD-10) History of colonoscopy ?Z98.890 - Other specified postprocedural states (ICD-10) H/O colectomy ?Z90.49 - Acquired absence of other specified parts of digestive tract (ICD- 10) History of hernia repair ?Z98.890 - Other specified postprocedural states (ICD-10) ?Z87.19 - Personal history of other diseases of the digestive system (ICD-10) Family History (Updated 03/11/24 @ 09:31 by Janine Brady NP) Other Family history of diabetes mellitus Social History (Updated 03/11/24 @ 09:27 by Janine Brady NP) Within the past year, how often did you have a drink containing alcohol: never Score interpretation: A score less than 4 is consistent with normal alcohol consumption. 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 afebrile General: The patient appears well and in no apparent distress. Patient is resting comfortably on cart. GCS = 15. Skin: Warm, dry, no pallor noted. Head: Small irregularly-shaped abrasion to the right earlobe. No bleeding at this time. It is shallow and does not require suture repair. Remainder of the face and scalp are normocephalic, atraumatic Neck: Supple, trachea mid-line, no tenderness, no lymphadenopathy. Full ROM and no cervical spinal tenderness. The patient has no step-offs or crepitus noted Eyes: PERRLA, EOMI ENT: TM's clear, no hemotympanum detected, no blood in posterior oropharynx. No oral or maxillofacial injury. Cardiovascular: Regular Rate and Rhythm Respiratory: Patient is in no distress, no accessory muscle use, lungs are clear to auscultation, no wheezing, rales or rhonchi Chest Wall: no tenderness, contusion, abrasion, or external signs of trauma. Back: No thoracic vertebral or lumbar vertebral tenderness to palpation. Musculoskeletal: Swelling, ecchymosis and tenderness throughout the right wrist. He has normal range of motion of the fingers of the right hand and of the right wrist. He has normal patient observation assistant strength. Tenderness to palpation of the left foot and ankle. No swelling, ecchymosis, abrasion or laceration are noted. No additional sign of long bone fracture. No pelvic tenderness. Neurological: A&O x4, normal equal patient observation assistant strength, normal speech, he has movement disorder associated with his Tourette's, normal sensory. Psychiatric: Cooperative Constitutional Vital Signs, click to edit/add: Last Vital Signs Temp 98.2 F 03/28/25 22:18 Pulse 89 03/28/25 22:18 Resp 18 03/28/25 22:18 BP 128/76 03/28/25 22:18 Pulse Ox 93 L 03/28/25 22:18 Course Vital Signs Vital signs: Vital Signs Temperature 98.2 F 03/28/25 22:18 Pulse Rate 89 03/28/25 22:18 Respiratory Rate 18 03/28/25 22:18 Blood Pressure 128/76 03/28/25 22:18 Pulse Oximetry 93 L 03/28/25 22:18 Temperature 98.2 F 03/28/25 22:18 Pulse Rate 89 03/28/25 22:18 Respiratory Rate 18 03/28/25 22:18 Blood Pressure 128/76 03/28/25 22:18 Pulse Oximetry 93 L 03/28/25 22:18 MDM - Trauma MDM Narrative Medical decision making narrative: X-rays of the right wrist were negative. X-rays of the left foot and ankle were also negative. He was given ibuprofen for pain. I informed him about his negative x-ray results. I asked the emergency department nurse to apply a Band- Aid to his right earlobe and a Velcro adjustable splint to the patient's right wrist. Patient was given reassurance and discharged home. Imaging Data xr right wrist, xr left foot, xr left ankle: My impression: X-rays of the right wrist, left foot and left ankle were reviewed. I did not identify any fracture, subluxation or other bony abnormality. Discharge Plan Discharge Chief Complaint: Extremity Injury, Lower Clinical Impression: Right wrist sprain, Left ankle sprain, Sprain of foot, left, Abrasion of right ear, Contusion of right wrist Patient Disposition: Home, Self-Care Time of Disposition Decision: 23:44 Prescriptions / Home Meds: No Action buprenorphine-naloxone 8-2 mg film 0.5 film sublingual Q24H Rx Instructions: 1/2 film daily three times weekly dextroamphetamine-amphetamine 15 mg capsule,extended release 24hr 15 mg PO DAILY levothyroxine 137 mcg tablet 137 mcg PO DAILY dextroamphetamine-amphetamine 10 mg tablet 10 mg PO DAILY PRN (Reason: attention) Probiotic 15 billion cell capsule, sprinkle 1 cap PO DAILY Rx Instructions: do not crush/chew/cut; swallow whole OR may open and sprinkle in cold drink/food Print Language: Turkish Instructions: Ankle Sprain (ED), Contusion in Adults (ED), Foot Sprain (ED), Wrist Sprain (ED), Ear Abrasion (ED) Referrals: Physician,Non-Staff, MD [Primary Care Provider] - 1 week
== END 2025-03-29 00:23 | disposition home or self-care (01) ==
PROVIDERS: Emergency Provider Emergency Medicine
DX: S63.591A Other specified sprain of right wrist, initial encounter (principal); S93.492A Sprain of other ligament of left ankle, initial encounter; W10.9XXA Fall (on) (from) unspecified stairs and steps, initial encounter; S00.411A Abrasion of right ear, initial encounter; S60.211A Contusion of right wrist, initial encounter; M25.431 Effusion, right wrist; F95.2 Tourette's disorder
CPT/HCPCS: 73110; 73610; 73630; 99284